=== PATIENT | female | born 1990 | race Caucasian/White ===

== ENCOUNTER → 2017-10-12 15:44 | Outpatient (CLI) | payer OTHER, SELFPAY ==
[2017-10-12 17:51] LABS: AST(SGOT) 17 U/L (15-37); Alanine Aminotransfer ALT/SGPT 20 U/L (13-56); Albumin, Serum 3.1 g/dL (3.2-5.0); Alkaline Phosphatase 116 U/L (45-117); Bilirubin, Direct 0.06 mg/dL (0.00-0.30); Globulin 4.5 g/dL (2.2-4.2); Protein, Total 7.6 g/dL (6.4-8.2)
[2017-10-12 18:09] LABS: Hematocrit 37.4 % (37-47); Hemoglobin 11.6 g/dl (12.0-15.0); Mean Corpuscular Hgb 26.5 pg (27.0-32.0); Mean Corpuscular Volume 85.6 fL (81-99); Mean Platelet Vol. 11.3 fl (6.2-12.0); Platelet Count 323 K/mm3 (150-450); RBC Distribution Width CV 14.2 % (11.6-14.6); RBC Distribution Width SD 43.6 fl (35.1-43.9); Red Blood Count 4.37 M/mm3 (4.2-5.4); White Blood Count 7.6 K/mm3 (4.4-11.0)
[2017-10-12 18:16] LABS: Scan Indicated on CBC? Y/N NO
[2017-10-12 18:18] LABS: Erythrocyte Sedimentation Rate 17 mm/hr (0-20)
== END ==
PROVIDERS: Family Provider Internal Medicine; PCP Internal Medicine; Visit Provider Internal Medicine Gastroenterology
DX: K50.90 Crohn's disease, unspecified, without complications (principal)
CPT/HCPCS: 36415; 80076; 85027; 85652; 86140

== ENCOUNTER → 2018-12-27 16:10 | Outpatient (CLI) | payer OTHER, SELFPAY ==
[2018-09-12 13:32] VITALS: BMI 22.2
[2019-01-10 16:33] LABS: HPV Reflexed? NOT INDICATED
== END ==
PROVIDERS: Visit Provider Obstetrics & Gynecology
DX: Z12.4 Encounter for screening for malignant neoplasm of cervix (principal)
CPT/HCPCS: 88175; G0145

== ENCOUNTER → 2021-03-18 14:15 | Outpatient (CLI) | payer OTHER, SELFPAY ==
[2021-03-18 17:10] LABS: Vitamin B12 874 pg/mL (211-911)
[2021-03-18 17:15] LABS: CRP < 2.90 mg/L (0.0-3.0); Ferritin 5 ng/mL (8-252); Iron 23 ug/dL (50-170); Iron Binding Capacity,Total 347 ug/dL (250-450); PERCENT IRON SATURATION 6.6 % (15.0-55.0)
[2021-03-21 16:49] LABS: Vitamin D 1,25-Dihydroxy 56.8 pg/mL (19.9-79.3)
== END ==
PROVIDERS: Referring Provider Internal Medicine; Visit Provider Internal Medicine
DX: K50.019 Crohn's disease of small intestine with unspecified complications (principal)
CPT/HCPCS: 36415; 82607; 82652; 82728; 83540; 83550; 86140

== ENCOUNTER 2021-10-04 12:45 | Outpatient (CLI) | payer OTHER, MEDICAID, SELFPAY ==
--- NOTE | 2021-10-04 12:55 | BI_ITS ---
MAMMOGRAPHY - BILATERAL DIAGNOSTIC REASON FOR EXAM: Female, 31 years old. 2-3 month history of a left breast lump. PERTINENT HISTORY: Grandmother with breast cancer. TECHNIQUE: Digital bilateral breast reno (3D mammographic acquisition) in the CC and MLO projections. 2-D mediolateral oblique (MLO) and craniocaudad (CC) views of both breasts were obtained. Left exaggerated craniocaudad view was obtained as well. CAD: Full Field Digital Mammography with Computer Added Detection was performed. COMPARISON: None. Baseline examination. FINDINGS: Breast Composition: The breasts are extremely dense, which lowers the sensitivity of mammography. The palpable abnormality corresponds to a 1.2 cm x 1.4 cm spiculated nodule in the deep lateral axillary region of the left breast. Microcalcifications are seen within it. Correlation with ultrasound and biopsy recommended. No other significant abnormalities are identified. BI/DIAG MAMM W/CAD, BILAT IMPRESSION: The palpable abnormality corresponds to a 1.2cm x 1.4 cm spiculated in the upper axillary lateral region of the left breast. Microcalcifications are seen within it. Correlation with ultrasound and biopsy recommended. ASSESSMENT CATEGORY: BIRADS Category 0: Incomplete. Need additional imaging evaluation. A letter regarding these results will be sent to the patient by the facility within 30 days. Approximately 10% of breast cancers are not detected by mammography. A normal mammogram should not delay biopsy of a clinically suspicious abnormality. Electronically Signed: Cash Gonzalez MD at 13:35 EDT ,
--- NOTE | 2021-10-04 12:55 | US_ITS ---
STUDY: ULTRASOUND BREAST - LEFT REASON FOR EXAM: Female, 31 years old. Palpable lump left breast. TECHNIQUE: Axial and longitudinal images of the LEFT breast were performed with a high resolution ultrasound transducer. # OF IMAGES: 27 COMPARISON: Comparison is made with prior mammogram done earlier today. FINDINGS: LEFT Breast: The mammographic and palpable abnormality corresponds to a 1.3 cm x 1.3 cm x 1.1 cm heterogeneous hypoechoic solid mass with microcalcifications at the 1 o''clock position of the breast at 8 cm from the nipple. Increased vascularity is seen. Biopsy recommended. US/Breast Limited Unilateral IMPRESSION: 1.3 cm x 1.3 cm x 1.1 cm heterogeneous hypoechoic solid mass with microcalcifications at the 1 o''clock position breast at 8 cm from the nipple. Biopsy recommended. ASSESSMENT CATEGORY: BIRADS Category 5: Highly Suggestive of Malignancy - Appropriate Action Should Be Taken. A letter regarding these results will be sent to the patient by the facility within 30 days. Electronically Signed: Cash Gonzalez MD at 15:12 EDT ,
== END 2021-10-04 23:59 | disposition home or self-care (01) ==
PROVIDERS: Visit Provider Student in an Organized Health Care Education/Training Program
DX: N63.20 Unspecified lump in the left breast, unspecified quadrant (principal); R92.2 Inconclusive mammogram
CPT/HCPCS: 76642; 77062; 77066; G0279

== ENCOUNTER 2021-10-07 11:53 | Outpatient (CLI) | payer OTHER, MEDICAID, SELFPAY ==
--- NOTE | 2021-10-07 | IMM_PTH ---
PATIENT: STEPHEN SELF LOC: TIM U#:[id number] AGE/SX: 31/F ROOM: RE10/07/[address]: Dr. Tom Baker MD : 1990 BED: DIS: 10/07/2021 SPEC #: [id number] RECD: 10/10/21 13:18 STATUS: TIFFANY REQ #: [id number] TI: 10/07/21 00:[address]: Tom Baker DEPT: IMMUNOHISTOCHEMISTRY RECD BY: Elaine Baxter ENTERED: 10/10/21 13:19 SP TYPE: IMMUNO OTHR DR: No Primary Care Phys Tissues: Left breast, NOS Procedures: CALPONIN-1 (add) CK5-6 (add) CK8 (add) E-CAD (add) HER2 RONAN (add) KI-67 (add) P53 (add) VT (add) P40 (add) ER (initial) PHYSICIAN & INSTITUTION [place] [id number] SPECIMEN INFORMATION: Tissue Source: Left breast Clinical Info: Left breast mass Specimen Number: [id number] CPT code: 04752, 10827 x6, 78648 x3 METHODOLOGY: Deparaffinized sections of prefer/formalin-fixed tissue or PAP/DQ stained slides are incubated with monoclonal/polyclonal antibodies/oligonucleotide probes. Localization is made via biotin free immunoperoxidase method. Appropriate controls are performed and reacted as expected. Results on target cell population are indicated in the following table: RESULTS: ANTIBODY / CLONE RESULT E-Cad (ECH-6) positive CK8 (74pgqqN38) positive Calponin-1 (FX592O) negative * CK5-6 (D5 & 1684) negative * P40 (BC28) negative * P53 (DO-7) positive, rare cells, weak <1% Ki-67 (30-9) positive, moderate, ~40% *?Positive in ductal carcinoma in situ. MORPHOMETRIC ANALYSIS ER (clone 6F11) >95%, strong intensity VT (clone 16/1E2) variable 10-50%, moderate intensity Her-2Neu (clone CB11) 3+ The prognostic test for HER2 is performed on formalin-fixed paraffin embedded tissue. A 3+ (positive) staining pattern is defined as intense, homogeneous, complete, circumferential membranous staining in >10% of contiguous tumor cells. A similar weak (2+) staining pattern is interpreted as equivocal. NORA follow-up testing is recommended for all equivocal cases. Positivity/negativity for ER/VT is reported if > or < 1% of the tumor cells are immuno- reactive, respectively. The ASCO/CAP criteria is used for scoring. Reference: Journal of Clinical Oncology, 2013; 31:6498-5814 & 2010; 16:7317-5699. Duration of fixation: 57.5 Hrs; Sample Adequate: Yes. These assays have not been validated on decalcified tissues. Results should be interpreted with caution given the likelihood of false negativity on decalcified specimens. These tests were developed and their performance characteristics determined by [facility]. They may not have been cleared or approved by the U.S. Food and Drug Administration. The FDA has determined that such clearance or approval is not necessary. The above immunohistochemical/dualISH markers are ordered and reviewed by the Pathologist. INTERPRETATION: Left breast, core biopsy: Invasive ductal carcinoma, nuclear grade 2. Ductal carcinoma in situ. Positive for estrogen receptors (favorable prognostic indicator). Positive for progesterone receptors (favorable prognostic indicator). Positive for overexpression of ETA1tcj. SJ:eloy 10/11/2021
--- NOTE | 2021-10-07 10:10 | BRBX_PTH ---
PATIENT: STEPHEN SELF LOC: TIM U#:[id number] AGE/SX: 31/F ROOM: RE10/07/[address]: Dr. Tom Baker MD : 1990 BED: DIS: 10/07/2021 SPEC #: [id number] RECD: 10/07/21 11:44 STATUS: TIFFANY RECristiano #: [id number] TI: 10/07/21 10:[address]: Tom Baker DEPT: SURGICAL PATHOLOGY RECD BY: Maude Cross ENTERED: 10/07/21 13:03 SP TYPE: BREAST BX OTHR DR: No Primary Care Phys Tissues: Left breast, NOS Procedures: Surgery Specimen Level IV HEADER OPERATION: Left breast biopsy PRE-OP DIAGNOSIS: Left breast mass TISSUE SUBMITTED: Left breast tissue MICROSCOPIC DIAGNOSIS Left breast, core biopsy: Invasive ductal carcinoma, nuclear grade 2 (0.8 cm in greatest length). Ductal carcinoma in situ. See comment. GALE:eloy 10/10/2021 COMMENT Immunohistochemistry ([id number]) supports the above diagnosis. ER/TN/Jgo6fbl studies are being performed on sections of tumor and the results from this study will be reported separately ([id number]). Ductal carcinoma in situ shows solid and comedo pattern, comedo necrosis, calcifications and intermediate nuclear grade (nuclear grade 2) and comprise about 30% of the tumor volume. Case has been reviewed in consultation with Dr. Paris who concurs with the above diagnosis. IDC:AM MICROSCOPIC DESCRIPTION Slides are reviewed. GROSS DESCRIPTION Received in fixative is one container labeled with the patient's name and designated left breast. The specimen consists of multiple elongated fragments of walker-yellow fibroadipose tissue that in aggregate measure 1.5 x 0.5 x 0.1 cm. The entire specimen is submitted in one cassette. / GALE:eloy 10/07/2021 TC:0 CPT: 34621 ADDENDUM ADDENDUM ADDENDUM ADDENDUM ADDENDUM ADDENDUM ADDENDUM ADDENDUM ADDENDUM ADDENDUM ADDENDUM ADDENDUM 12/15/2021 10:05 ADDENDUM 12/15/2021 10:05 ADDENDUM 12/15/2021 10:05 ADDENDUM 12/15/2021 10:05 ADDENDUM 12/15/2021 10:05 This addendum is added to incorporate an outside pathology consultation report. The case was examined at [facility] (#[id number]) and the following diagnosis was rendered. Left breast, core biopsy: Invasive ductal carcinoma, provisionally Fany 2, measures 8 mm in greatest length. Ductal carcinoma in situ, intermediate nuclear grade, solid type with comedo-necrosis and calcifications. Please see complete above mentioned consultation report in EMR
== END 2021-10-07 23:59 | disposition home or self-care (01) ==
LOC: LABSPEC 11:54
PROVIDERS: Referring Provider Surgery; Visit Provider Surgery
DX: C50.919 Malignant neoplasm of unspecified site of unspecified female breast (principal)
CPT/HCPCS: 88305; 88341; 88342

== ENCOUNTER 2021-10-31 05:51 | Day surgery (SDC) | payer OTHER, MEDICAID, SELFPAY ==
[2021-10-31 06:22] VITALS: BP 106/67; PULSE 73; RESP 16; TEMP 37.1; O2SAT 100; BMI 22.4
[2021-10-31 06:34] LABS: Internal QC Validated? YES +Cl - CLEAR BKGD; Pregnancy, Urine Negative Negative
[2021-10-31] MEDS: Lactated Ringers 1,000 ML 30 ML IV (06:38)
--- NOTE | 2021-10-31 07:07 | PCM.HP.STD ---
HPI - General HPI Narrative STEPHEN SELF, is a 31 F who presents for chest port for him. Patient has breast cancer of the left breast and was sent here for port for neoadjuvant therapy. [facility], LAT[facility] Medical History (Updated 10/31/21 @ 07:[address] Tom Baker MD) Alcohol use Anemia Back pain Bowel obstruction Breast cancer Crohn's disease Fatigue Migraines Non-smoker Stomach ulcer Wears contact lenses Wears glasses Home Medications NK 10/28/21 [History Last Taken Unknown] Allergy/AdvReac Type Severity Reaction Status Date / Time No Known Allergies Allergy Verified 10/31/21 06:20 Family History (Updated 10/17/21 @ 15:33 by Dalia Gr) Grandmother Breast cancer Hypertension Thyroid disorder Diabetes type two Surgical History (Updated 10/28/21 @ 10:03 by Patrizia Gamble) History of removal of cyst Hx of colonoscopy Hx of tonsillectomy Hx of wisdom tooth extraction Social History Smoking Status: Never smoker alcohol intake: current alcohol intake frequency: holidays/special occasions only ROS Constitutional Constitutional: Denies anorexia or chills Eyes Eyes: Denies blurry vision ENT HEENT: Denies abnormal hearing Respiratory/Chest Respiratory/Chest: Denies cough, dyspnea or dyspnea on exertion Gastrointestinal Gastrointestinal: Denies abdominal pain Genitourinary Genitourinary: Denies change in urinary stream Musculoskeletal Musculoskeletal: Denies abnormal gait Integumentary Integumentary: Denies jaundice Neurologic Neurologic: Denies abnormal gait Psychiatric Psychiatric: Denies anxiety Endocrine Endocrinology: Denies flushing Vital Signs Vital Signs Vital Signs: 10/31/21 06:22 Temperature 98.7 F Temperature Source Temporal Pulse Rate 73 Respiratory Rate 16 Respiratory Pattern Normal Blood Pressure 106/67 Blood Pressure Mean 80 Blood Pressure Source Monitor Blood Pressure Position Semi-Fowlers Blood Pressure Location Left Arm Pulse Ox 100 Oxygen Delivery Method Room Air Weight Weight: 147 lb 11.355 oz Body Mass Index (BMI) 22.4 Physical Exam Const alert and oriented x3 Resp normal respiratory effort and normal air movement Cardio regular rate and regular rhythm GI soft to palpation, non-tender and non-distended Results Lab / Micro Data Labs: Laboratory Results - last 24 hr 10/31/21 06:18: Urine Test Negative Micro: Microbiology 10/31/21 06:13 Interface Orders SARS-CoV-2 Antigen (Rapid) - Final Assessment & Plan Assessment/Plan (1) Encounter for insertion of venous access port: PLAN: Patient has left breast cancer and requires chest port for chemotherapy. I discussed right chest port placement with the patient in detail. I discussed the risks including but not limited to bleeding, infection, pneumothorax, line infection or DVT. Patient understands the risks and is willing to proceed. Tom Baker MD Pager: [facility] [address] [place] [address], [address] [place] [address] Office:
[2021-10-31] MEDS: Cefazolin 2 GM in 0.9% Normal Saline 100 ML IV (07:19)
[2021-10-31] MEDS: Lidocaine 1% /Epi 1:100 (20ml) 20 ML Vial (07:25)
[2021-10-31 07:48] VITALS: BP 106/67; BP 115/69; PULSE 87; RESP 16; TEMP 36.8; O2SAT 99
[2021-10-31 07:55] VITALS: BP 106/67; BP 93/80; PULSE 87; RESP 16; O2SAT 99
--- NOTE | 2021-10-31 07:55 | RAD_ITS ---
STUDY: X-RAY CHEST REASON FOR EXAM: Female, 31 years old. Port placement TECHNIQUE: Frontal view of the chest COMPARISON: None. FINDINGS: There is a right-sided port with its tip in the superior vena cava. The lungs are clear. There are no pleural effusions. There is no pneumothorax. The heart is normal in size. The visualized osseous structures are within normal limits. RAD/Chest 1 View (Portable) IMPRESSION: Satisfactory position of the right-sided port. No pneumothorax. Electronically Signed: Attila Castillo MD at 8:23 EDT ,
[2021-10-31 08:00] VITALS: BP 106/67; BP 110/72; PULSE 72; RESP 16; O2SAT 100
[2021-10-31 08:02] VITALS: BP 106/67; BP 110/66; PULSE 77; RESP 16; TEMP 37.3; O2SAT 99
--- NOTE | 2021-10-31 08:15 | PCM.OPRPT ---
Problems Associated Problem List Diagnoses (1) Encounter for insertion of venous access port: Report of Operation Date of Procedure: 10/31/21 Pre-Operative Diagnosis: Left breast cancer and need for vascular access Post-Operative Diagnosis: Same Surgery/Procedure Performed:: Ultrasound and fluoroscopy guided right chest port placement utilizing right IJ Description of Procedure: After obtaining informed consent patient was brought back to the operating room MAC anesthesia was induced and the right chest and neck were prepped in normal sterile fashion. Ultrasound was used to evaluate both IJs and the right IJ was selected. Next, using a needle, the right IJ was accessed and a guidewire was passed on into the superior vena cava under fluoroscopy guidance. A small incision was made over the puncture site and the dilator introducer was placed over the guidewire. Next this was capped and the pocket was made for the port. 1% lidocaine with epinephrine was injected in the proposed port site. An incision was made with scalpel. Electrocautery was used to make a pocket under the skin and subcutaneous tissue. Hemostasis was obtained. Next, the catheter was tunneled up to the neck incision site and placed through the introducer. The peel-away introducer was removed and the position of the catheter was confirmed on fluoroscopy. Next, the catheter was trimmed and attached to the port with the locking device. Interrupted 2-0 Vicryl sutures were used to anchor the port to the chest wall and then the port was placed inside the pocket. The pocket was then flushed with saline and the port irrigated with saline. There was good blood return and the port flushed easily. Next, heparin was injected into the port. The skin was closed with subcutaneous interrupted 3-0 Vicryl sutures. A single 3-0 Vicryl sutures placed under the skin at the neck incision site. Steri-Strips were placed as well as op sites. Patient tolerated procedure well, was taken to PACU in stable condition. Chest x-ray will be obtained. Grafts/Implants Used: 8 [place] PowerPort Admit VTE Documentation VTE Mechan Device Prophylaxis: SCD's
--- NOTE | 2021-10-31 08:16 | EX.PCM.DISCH ---
Discharge Instructions Procedure Port-A-Cath Diet Discharge Diet: Light diet - advance as tolerated (Pain medication may cause nausea. You should typically eat light foods as you take your pain medication.) Activity Discharge Activity: Return to Normal Activity and May Shower (with your bandage in place in 1-2 days after surgery. DO NOT SHOWER WHEN YOUR PORT IS ACCESSED.) Dressing / Incision Call your doctor if your incision/area has: Continuous Slow Oozing, Sudden Increased Bleeding, Increased Pain/ Swelling, Increased Redness and Foul Smelling Discharge Call your doctor if you observe: Fever of 101 or Higher Remove Dressing in: 2 days Cleanse incision/area with: Soap & Water Follow Up Care Please Follow Up With: Tom Baker MD When: as needed [phone] Test Results: Test results from this visit will be discussed in further detail at your follow-up appointment, if applicable. Discharge Plan Admission Attending Provider: Tom Baker Primary Care Provider: Nannette Torres Discharge Orders/Prescriptions Prescriptions: No Action NK RF: 0 Referrals / Follow Up: Nannette Torres DO [Primary Care Provider] - Disposition Disposition (needs filled in before D/C Order can be placed): Home, Self Care
[2021-10-31 08:55] VITALS: BP 106/67; BP 115/68; PULSE 74; RESP 16; TEMP 37.1; O2SAT 99
== END 2021-10-31 09:11 | disposition home or self-care (01) ==
LOC: SDC 05:52 → AC 05:54
PROVIDERS: Anesthesiology; PCP Internal Medicine; Referring Provider Surgery; Visit Provider Surgery
PROC: (CPT 36561; principal; 2021-10-31 07:00)
DX: Z45.2 Encounter for adjustment and management of vascular access device (principal); K50.90 Crohn's disease, unspecified, without complications; C50.912 Malignant neoplasm of unspecified site of left female breast; Z80.3 Family history of malignant neoplasm of breast; Z87.19 Personal history of other diseases of the digestive system
CPT/HCPCS: 36561; 71045; 77001; 81025; 87426; J7120; C1788

== ENCOUNTER → 2022-04-13 | Outpatient (CLI) | payer OTHER, MEDICAID, SELFPAY ==
[2022-04-22 14:36] LABS: HPV APTIMA, High Risk Negative (Negative)
== END | disposition home or self-care (01) ==
LOC: LABSPEC 14:38
PROVIDERS: PCP Internal Medicine; Referring Provider Obstetrics & Gynecology; Visit Provider Obstetrics & Gynecology
DX: Z12.4 Encounter for screening for malignant neoplasm of cervix (principal)
CPT/HCPCS: 87624; 88175; G0145

== ENCOUNTER → 2023-08-14 | Outpatient (CLI) | payer OTHER, SELFPAY ==
--- NOTE | 2023-08-14 17:19 | MRI_ITS ---
MRI Abdomen w/ and w/out contrast 08/14/2023 6:07 PM COMPARISON: None CLINICAL HISTORY: PRIMARY SCLEROSIS CHOLANGITIS AND BILE DUCTS CROHNS DISEASE, ELEVATED LIVER ENZYMES TECHNIQUE: Multiplanar T1 and T2 weighted, diffusion and dynamic post-gadolinium images were obtained through the abdomen before and after administration of IV contrast. FINDINGS: Liver: Unremarkable Gallbladder: Unremarkable Pancreas: Unremarkable Spleen: Unremarkable Adrenal Glands: Unremarkable Kidneys: Unremarkable GI Tract: Unremarkable Lymphadenopathy: Absent Reproductive: Unremarkable Bones: No suspicious lesions MRI/MRI Abd WITH and W/O Contrast IMPRESSION: Unremarkable MRI and MRCP of the abdomen Electronically Signed: Henri Schmidt MD at 22:19 EST ,
== END | disposition home or self-care (01) ==
LOC: MRI 17:04
PROVIDERS: Referring Provider Internal Medicine; Visit Provider Internal Medicine
DX: K50.80 Crohn's disease of both small and large intestine without complications (principal); R74.8 Abnormal levels of other serum enzymes
CPT/HCPCS: 74183; A9575; A4216

== ENCOUNTER 2024-01-08 11:43 | Emergency (ER) | payer OTHER, SELFPAY ==
[2024-01-08 11:43] VITALS: BP 124/88; PULSE 94; RESP 14; TEMP 36.3; O2SAT 100; BMI 22.5
--- NOTE | 2024-01-08 11:58 | ED.RN ---
pt states she does not normally have a menstrual period but has been having some brown vaginal discharge for several days
[2024-01-08] MEDS: 0.9% Normal Saline (1000mL) 1,000 ML 999 ML IV (13:29)
[2024-01-08] MEDS: Ketorolac 15 MG/ML Vial IV (13:30)
[2024-01-08 13:43] VITALS: BP 92/54; PULSE 71; RESP 16; O2SAT 100
[2024-01-08 13:50] LABS: Bacteria 0 SEEN /hpf (None Seen); Mucous, Urine 0 SEEN /hpf (<or=2+); Red Blood Cells-Urine 0 SEEN /hpf (0-5)
[2024-01-08 13:54] LABS: Absolute Lymphocyte Count 0.79 X10^3/uL (0.83-4.51); Absolute Neutrophil Count 5.9 X10^3/uL (2.0-7.7); Basophil# 0.03 X10^3/uL; Basophil% 0.4 % (0-1); Eosinophil# 0.03 X10^3/uL; Eosinophils% 0.4 % (0-5); Hematocrit 40.9 % (37-47); Hemoglobin 13.8 g/dL (12.0-15.0); Lymphocyte # 0.79 X10^3/ul (0.83-4.51); Lymphocyte % 10.9 % (19-41); Mean Corp Hgb Conc 33.7 g/dL (32-36); Mean Corpuscular Hgb 28.8 pg (27.0-32.0); Mean Corpuscular Volume 85.4 fL (81-99); Mean Platelet Vol. 12.4 fl (6.2-12.0); Monocyte# 0.54 X10^3/uL; Monocyte% 7.4 % (0-10); NRBC Flagged by Analyzer 0 % (0-5); Neutrophil # 5.85 X10^3/uL (2.7-7.7); Neutrophil % 80.6 % (47-70); POSITIVE COUNT YES; Platelet Count 68 K/mm3 (150-450); RBC Distribution Width SD 43.4 fl (35.1-43.9); Red Blood Count 4.79 M/mm3 (4.2-5.4); White Blood Count 7.3 K/mm3 (4.4-11.0)
[2024-01-08 13:54] LABS: Color, Urine Yellow (Yellow); Glucose, Dipstick Normal (Normal); Ketone-Dipstick Negative (Negative); Leukocyte Esterase-Dipstick 100 /ul (Negative); Nitrite-Dipstick Negative (Negative); Occult Blood-Urine Negative /ul (Negative); Protein-Dipstick Negative (Negative); Specific Gravity, Urine 1.015 (1.002-1.030); Urine Bilirubin Dipstick Negative (Negative); Urine Clarity Clear (Clear); Urine Urobilinogen Normal (Normal)
[2024-01-08 13:58] LABS: Internal QC Validated? YES +Cl - CLEAR BKGD; Pregnancy, Urine Negative Negative
[2024-01-08 14:04] LABS: Squamous Epithelial Cells - UA 0-5 SEEN /hpf (5-10); White Blood Cells 0-5 SEEN /hpf (0-5)
--- NOTE | 2024-01-08 14:05 | CT_ITS ---
STUDY: CT ABDOMEN AND PELVIS WITH CONTRAST REASON FOR EXAM: Female, 33 years old. Abdominal pain RADIATION DOSAGE (If Supplied By Facility): CTDIvol = ( 10.83 ) mGy, DLP = ( 621.87 ) mGycm TECHNIQUE: IV 100mL Isovue-370 was administered. Transaxial images were obtained from the dome of the diaphragm to the symphysis pubis. Multiplanar coronal and sagittal images were reformatted. The protocol utilizes one or more of the following dose reduction techniques: automated exposure control, adjustment of mA and/or kV according to patient size,and/or use of iterative reconstruction technique. COMPARISON: MRI of the abdomen of 08/14/2023 FINDINGS: The visualized lung bases are unremarkable. The visualized portions of the heart are within normal limits. Partially visualized bilateral breast implants. Normal liver. Normal gallbladder and extrahepatic biliary system. Normal spleen. Normal pancreas. Normal bilateral adrenal glands. Normal visualized stomach. Thickening of distal ileal loops and terminal ileum. Fecal retention. No evidence of acute diverticulitis. Borderline thickening of the appendix. No evidence of acute appendicitis. Normal abdominal aorta. No retroperitoneal adenopathy. Normal right kidney. Normal left kidney. Normal urinary bladder. Mild free fluid in the pelvis Very small umbilical hernia containing fat. Normal osseous structures. CT/Abdomen/Pelvis W IV Cont ONLY IMPRESSION: 1. Thickening of distal small bowel loops and terminal ileum which could be due to enteritis. Inflammatory bowel disease is possible. 2. Mild free fluid in the pelvis Electronically Signed: Remigio Tinoco MD at 14:44 EDT ,
[2024-01-08 14:07] LABS: ALB/GLOB Ratio 1.1 RATIO (0.9-2.4); AST(SGOT) 35 U/L (15-37); Alanine Aminotransfer ALT/SGPT 38 U/L (13-56); Albumin, Serum 3.9 g/dL (3.2-5.0); Alkaline Phosphatase 216 U/L (45-117); Anion Gap 5 (5-15); BUN 8 mg/dL (7-18); BUN/Creat Ratio 13.9 RATIO (10-20); Chloride 108 mmol/L (98-107); Creatinine, Serum 0.58 mg/dL (0.55-1.02); EST Glomerular Filtration Rate 129 mL/min (>60); Est Glom Filt Rate - Afr Amer 156 mL/min (>60); Estimated Creatinine Clearance 140.47 ml/min; Globulin 3.7 g/dL (2.2-4.2); Glucose 91 mg/dL (74-106); Potassium 3.9 mmol/L (3.5-5.1); Protein, Total 7.6 g/dL (6.4-8.2); Sodium Level 141 mmol/L (136-145)
[2024-01-08 14:26] LABS: Differential Indicated SCAN CRITERIA MET; Platelet Estimate MOD DEC (ADEQ)
[2024-01-08] MEDS: Morphine 4 MG/ML Syringe IV (14:37)
[2024-01-08 15:00] VITALS: BP 111/87; PULSE 71; RESP 16; O2SAT 99
--- NOTE | 2024-01-08 16:38 | EDS_ITS ---
HPI HPI - GI History of Present Illness Chief Complaint: Abd Pain Informant: patient Narrative Narrative: Patient is a 33-year-old female with history of Crohn's disease (states she is diet controlled) follows with Dr. Garza [facility] in [place], presenting with worsening lower abdominal pain. She states that had a colonoscopy last week was told everything was good. Started having pain today. She states it woke her from sleep at 4 AM and describes it as crampy in nature. Took ibuprofen which dulls the pain slightly. Feels bloated. States her last menstrual period was 2 years ago she is on Lupron because of her history of breast cancer. Denies any fever or chills. No nausea or vomiting. States her bowel moments have been normal. Denies any black or blood in the stool. PFSH PFSH Medical History Encounter for insertion of venous access port Wears contact lenses Wears glasses Alcohol use Non-smoker Breast cancer Bowel obstruction Back pain Crohn's disease Migraines Fatigue Anemia Stomach ulcer Home Medications ?Medication ?Instructions ?Recorded ?Last Taken ?Type anastrozole 1 mg tablet 1 mg PO DAILY 10/25/23 Unknown History leuprolide 7.5 mg intramuscular 7.5 mg IM QMONTH 10/25/23 Unknown History syringe kit (Lupron Depot) ciprofloxacin HCl 500 mg tablet 500 mg PO BID #14 TABLETS 01/08/24 Unknown Rx metronidazole 500 mg tablet 500 mg PO Q6H 7 days #28 tabs 01/08/24 Unknown Rx ondansetron 4 mg disintegrating 4 mg PO Q8H PRN PRN Nausea #10 tabs 01/08/24 Unknown Rx tablet prednisone 20 mg tablet 40 mg (2 x 20 mg) PO DAILY #28 tabs 01/08/24 Unknown Rx Allergy/AdvReac Type Severity Reaction Status Date / Time No Known Allergies Allergy Verified 01/08/24 11:44 Family History Grandmother Breast cancer Hypertension Thyroid disorder Diabetes type two Surgical History History of mastectomy, total Hx of colonoscopy Hx of wisdom tooth extraction Hx of tonsillectomy History of removal of cyst Social History Smoking Status: Never smoker alcohol intake: current alcohol intake frequency: holidays/special occasions only details: occasionally substance use type: does not use caffeine: Yes what type of physical activity do you participate in: none seatbelt use: always do you feel safe at home: Yes additional social history: - Deon ROS ROS ED Constitutional Constitutional ED: Denies chills or fever(s) Cardiovascular Cardiovascular: Denies chest pain Respiratory/Chest Respiratory/Chest: Denies cough or dyspnea Gastrointestinal Gastrointestinal: Reports abdominal pain; Denies constipation, diarrhea, melena, nausea or vomiting Musculoskeletal Musculoskeletal: Denies arthralgias or myalgias Neurologic Neurologic: Denies paresthesias or weakness Hematologic/Lymphatic Hematologic/Lymphatic: Denies easy bleeding or easy bruising EXAM Physical Exam Const Vital Signs: 01/08/24 11:43 01/08/24 13:43 01/08/24 15:00 Temperature 97.3 F L Temperature Source Temporal Pulse Rate 94 71 71 Respiratory Rate 14 16 16 Blood Pressure 124/88 H 92/54 L 111/87 H Blood Pressure Mean 100 66 95 Pulse Ox 100 100 99 Oxygen Delivery Method Room Air Room Air Room Air 01/08/24 16:39 Temperature 98.8 F Temperature Source Pulse Rate 87 Respiratory Rate 16 Blood Pressure 118/76 Blood Pressure Mean 90 Pulse Ox 100 Oxygen Delivery Method Positive well nourished and well developed General Appearance ED: well developed and NAD; Negative for pallor HEENT Reports moist mucous membranes Eyes PERRL Neck supple Resp normal respiratory effort and clear to auscultation bilaterally Cardio regular rate and regular rhythm GI non-distended Auscultation: hypoactive bowel sounds Palpation: soft and tender LLQ, RLQ and suprapubic Back/Spine no CVA tenderness Extremity full ROM Neuro Sensorium / Orientation: alert, oriented to person, oriented to place and oriented to time Motor Exam: Negative for general weakness Psych mental status grossly normal and thought process normal Skin no wounds General Skin Exam: Negative for jaundice or pallor MDM MDM MDM Narrative Medical decision making narrative: Patient is evaluated for 1 day of worsening lower abdominal crampy abdominal pain. Has a history of Crohn's disease as well as breast cancer. Differential includes was not limited to Crohn's flare, colitis, small bowel ob struction and urinary tract infection. Lab work largely unremarkable except for mildly elevated alkaline phosphatase of uncertain clinical significance. Urinalysis is not consistent with infection. Patient is she is given Toradol in the ER as well as IV fluids but has continued pain so she is then given IV morphine with further improvement of her symptoms. CT of the abdomen pelvis is concerning for thickening of the distal small bowel loops and terminal ileum which could be either inflammatory bowel disease or enteritis. Given her clinical history and presentation I suspect this is a Crohn's flare. Her GI doctor is out of town this week so I did speak with our GI doctor, Dr. Odonnell. He reviewed the patient's CT. He recommends a oral prednisone until she can follow-up with her GI doctor, Brayan and also suspect that she would highly benefit from a biologic agent for suppression of her Crohn's disease. Patient is given a copy of her disc for when she follows up with her GI doctor and informed of his recommendations. She feels comfortable being discharged home and treated outpatient. She is able to tolerate p.o. in the emergency room. She is given first dose of antibiotics and steroids in the emergency room. Given return precautions. Discharged home in stable condition. Lab Data Attestation: I reviewed the patient's lab results. Labs: Laboratory Results - last 24 hr 01/08/24 01/08/24 13:27 13:30 WBC 7.3 RBC 4.79 Hgb 13.8 Hct 40.9 MCV 85.4 MCH 28.8 MCHC 33.7 RDW Std Deviation 43.4 RDW Coeff of Latrell 14.0 Plt Count 68 L MPV 12.4 H Immature Gran % (Auto) 0.300 Neut % (Auto) 80.6 H Lymph % (Auto) 10.9 L Cavalier % (Auto) 7.4 Eos % (Auto) 0.4 Baso % (Auto) 0.4 Absolute Neuts (auto) 5.9 Absolute Lymphs (auto) 0.79 L Nucleated RBC % 0 Platelet Estimate MOD DEC Sodium 141 Potassium 3.9 Chloride 108 H Carbon Dioxide 28.0 Anion Gap 5 BUN 8 Creatinine 0.58 Estim Creat Clear Calc 140.47 Est GFR (MDRD) Af Amer 156 Est GFR (MDRD) Non-Af 129 BUN/Creatinine Ratio 13.9 Glucose 91 Calcium 9.0 Total Bilirubin 0.80 AST 35 ALT 38 Alkaline Phosphatase 216 H Total Protein 7.6 Albumin 3.9 Globulin 3.7 Albumin/Globulin Ratio 1.1 Urine Color Yellow Urine Clarity Clear Urine pH 8.0 Ur Specific Diana 1.015 Urine Protein Negative Urine Glucose (UA) Normal Urine Ketones Negative Urine Occult Blood Negative Urine Nitrite Negative Urine Bilirubin Negative Urine Urobilinogen Normal Ur Leukocyte Esterase 100 H Urine RBC 0 SEEN Urine WBC 0-5 SEEN Ur Squamous Epith Cells 0-5 SEEN Urine Bacteria 0 SEEN Urine Mucus 0 SEEN Urine Test Negative Radiography Diagnostic Testing: Clinical Impression(s) from Imaging Studies Abdomen/Pelvis CT 01/08/24 14:05 IMPRESSION: 1. Thickening of distal small bowel loops and terminal ileum which could be due to enteritis. Inflammatory bowel disease is possible. 2. Mild free fluid in the pelvis Electronically Signed: Remigio Tinoco MD at 14:44 EDT , Management Discussion w/another healthcare provider: [facility]ia[facility] Discharge Plan Triage Chief Complaint: Abd Pain ED Provider: Polly Rai Dx/Rx/DC Orders Clinical Impression: Crohn's colitis, Abdominal pain Instructions: ED Crohn's Disease Prescriptions: New prednisone 20 mg tablet 40 mg PO DAILY Qty: 28 0RF ondansetron 4 mg tablet,disintegrating 4 mg PO Q8H PRN PRN (Reason: Nausea) Qty: 10 0RF ciprofloxacin HCl 500 mg tablet 500 mg PO BID Qty: 14 0RF metronidazole 500 mg tablet 500 mg PO Q6H 7 Days Qty: 28 0RF No Action anastrozole 1 mg tablet 1 mg PO DAILY Lupron Depot 7.5 mg syringe kit 7.5 mg IM QMONTH Primary Care Provider: Care Physician,No Primary Referrals: Care Physician,No Primary [Primary Care Provider] - Activity Restrictions/Additional Instructions: Your CT is concerning for an acute Crohn's flare. We have given you a copy of your CT today to review with your GI doctor. Our GI doctor, Dr. Odonnell, reviewed your films. He recommends 7-day course of antibiotics as well as 40 mg of prednisone daily until you can follow-up with your GI doctor. You been given a 2-week supply here. He is concerned due to the degree of inflammation in your small bowel that you would benefit from a biologic agent. Please discuss this with your GI doctor. You may take a Tylenol and/or ibuprofen for your pain. Return to the ER if you have progression worsening your symptoms or further concerns. Print Language: Kittitian Disposition Disposition: Home, Self Care Discharge Date/Time: 01/08/24 17:08
[2024-01-08 16:39] VITALS: BP 118/76; PULSE 87; RESP 16; TEMP 37.1; O2SAT 100
[2024-01-08] MEDS: predniSONE 20 MG Tablet 60 MG PO (16:52)
[2024-01-08] MEDS: metroNIDAZOLE 500 MG Tablet PO (16:52)
[2024-01-08] MEDS: Ciprofloxacin 500 MG Tablet PO (16:52)
== END 2024-01-08 17:08 | disposition home or self-care (01) ==
PROVIDERS: Emergency Provider Emergency Medicine; Visit Provider Emergency Medicine
DX: K50.10 Crohn's disease of large intestine without complications (principal); Z85.3 Personal history of malignant neoplasm of breast
CPT/HCPCS: 74177; 80053; 81001; 81025; 85025; 96361; 96374; 96375; 99285; J7030; Q9967; A4216

== ENCOUNTER → 2025-06-22 | Outpatient (CLI) | payer OTHER, SELFPAY ==
[2025-06-22 17:46] LABS: Hematocrit 39.7 % (37-47); Hemoglobin 13.4 g/dL (12.0-15.0); Immature Granulocytes Count 0.010 X10^3/uL (0.0-0.0); Mean Corp Hgb Conc 33.8 g/dL (32-36); Mean Corpuscular Volume 86.7 fL (81-99); Mean Platelet Vol. 12.5 fl (6.2-12.0); NRBC Flagged by Analyzer 0 % (0-5); Platelet Count 112 K/mm3 (150-450); RBC Distribution Width CV 13.1 % (11.6-14.6); RBC Distribution Width SD 40.6 fl (35.1-43.9); Red Blood Count 4.58 M/mm3 (4.2-5.4); White Blood Count 5.0 K/mm3 (4.4-11.0)
[2025-06-22 19:03] LABS: Ferritin 29 ng/mL (22-378); HIV Nonreactive (Nonreactive); Hepatitis B Surface Antigen Nonreactive (Nonreactive); Hepatitis C Antibody Nonreactive (Nonreactive); Iron 61 ug/dL (50-170); Iron Binding Capacity,Total 297 ug/dL (250-450); Iron Binding Capacity,Unsat 236 ug/dL (228-428); Syphilis Antibodies Nonreactive (Nonreactive)
--- OUTSIDE RECORDS SUMMARY | 2025-06-22 20:46 | XMS RPT_ITS | CCD ---
Author Organization [facility] Care Team Providers Care Forest Ranger Technician Name Role Phone AYDIN EARLY Unavailable Unavailable Braden Torres Unavailable Mikaela Mac Unavailable Unavailable Max Guaman Unavailable Unavailable Margy Elizabeth Unavailable Unavailable Unavailable None, No PCP Unavailable Unavailable Care Physician, No Primary Primary Care Provider Unavailable Dr. Jaqueline Jacinto Attending Provider [phone] Jaquelien Jacinto Referring Provider [phone] Care Physician, No Primary Referring Provider Un available Dr. Jami Baker Attending Provider Braden Torres DO Primary Care Provider No operating theatre technician, Md Primary Care Provider Xin vailable Provider, External Unavailable Valentina Hoff CGC Unavailable Care Physician, No Primary Primary Care Provider Unavailable Dr. Ant Mclean Attending Provider Dr. Braden Torres Primary Care Provider [phone] Dr. Jami Baker Referring Provider Dr. Jami Baker Other Provider Ramón SULTANA MD, Praful Unavailable Krissy Beckham RN Unavailable Unavailable Braden Torres DO Unavailable Mikaela Mac RN Unavailable Unavailable Max Guaman Unavailable Unavailable Margy Elizabeth Unavailable Unavailable Unavailable Margy Elizabeth Unavailable Care Physician, No Primary Primary Care Provider Unavailable Care Physician, No Primary Referring Provider Un available Dr. Jami Baker Attending Provider Braden Torres DO Primary Care Provider Ramón SULTANA MD, Daesung Unavailable Doup RN, Krissy Unavailable Unavailable Braden Torres DO Primary Care Provider Dr. Braden Torres Primary Care Provider [phone] Dr. Braden Torres Referring Provider Dr. Valentina Duran Attending Provider Masci DO, Chantal A Unavailable Braden Torres DO Primary Care Provider Ramón SULTANA MD, Daesung Unavailable Doup RN, Krissy Unavailable Unavailable Masci DO, Chantal A Unavailable Braden Torres DO Unavailable Doup RN, Krissy Unavailable Unavailable Generic Provider , No Assigned Pcp Primary Car e Provider Unavailable Ramón SULTANA, Praful Unavailable ThomLuz bingham Unavailable Dr. Jami Baker Attending Provider Braden Torres DO Primary Care Provider Generic Provider , No Assigned Pcp Primary Car e Provider Unavailable Thomzachery DO Luz R Unavailable THOMAE LUZ R Attending Unavailable GENERIC PROVIDER, NO ASSIGNED PCP Primary Care Unavailable THOMAE, LUZ R Attending Unavailable GENERIC PROVIDER, NO ASSIGNED PCP Primary Care Unavailable PAULINA NULL Attending Unavailable BRADEN TORRES Referring Unavailab le BRADEN TORRES Primary Care Unavailab le THOMAE, LUZ R Attending Unavailable THOMAE, LUZ R Referring Unavailable THOMAE, LUZ R Primary Care Unavailable Care Physician, No Primary Primary Care Unava ilable Mamta Kohler Attending Unavailable Care Physician, No Primary Referring Unava ilable Jaqueline Jacinto Attending Unavailable Care Physician, No Primary Primary Care Unava ilable Care Physician, No Primary Referring Unava ilable Care Physician, No Primary Primary Care Unava ilable Dossi, Jaqueline Attending Unavailable Care Physician, No Primary Referring Unava ilable Jami Baker Attending Unavailable MascChantal james Attending Unavailable Care Physician, No Primary Primary Care Unava ilable Dossi, Jaqueline Attending Unavailable Care Physician, No Primary Referring Unava ilable Care Physician, No Primary Referring Unava ilable Dossi, Jaqueline Attending Unavailable Care Physician, No Primary Primary Care Unava ilable Care Physician, No Primary Referring Unava ilable Dossi, Jaqueline Attending Unavailable Care Physician, No Primary Primary Care Unava ilable Care Physician, No Primary Primary Care Unava ilable Valentina Duran Attending Unavailabl e Care Physician, No Primary Referring Unava ilable Care Physician, No Primary Primary Care Unava ilable ThomShen binghame Attending Unavailable Thomae, Luz Referring Unavailable Care Physician, No Primary Primary Care Unava ilable Polly Rai Attending Unavailable Thomae, Luz Unavailable Unavailable Thomae DO, Luz R Primary Care Provider CHANTAL AYERS Referring Unavailable MELISSABRADEN HUI Primary Care Unavailab le PROVIDER, UNKNOWN Referring Unavailable BRADEN TORRES Primary Care Unavailab le Thomae DO Luz R Unavailable Thomae , Luz R Primary Care Provider [phone] BRADEN TORRES Primary Care Unavailab le MASCICHANTAL Attending Unavailable BRADEN TORRES Primary Care Unavailab CRISTOPHER Enamorado Attending Unavailable BRADEN TORRES Primary Care Unavailab le ATTARAN, JAM Referring Unavailable MELISSABRADEN Primary Care Unavailab le ATTARAN, AJM Referring Unavailable MELISSABRADEN HUI Primary Care Unavailab le LUIS FELIPE, MARICRUZ Referring Unavailable MASCCHANTAL James A Referring Unavailable MELISSABRADEN Primary Care Unavailab le MELISSA, BRADEN SANTANA Primary Care Unavailab le MASCICHANTAL Referring Unavailable MELISSABRADEN Referring Unavailab le MELISSABRADEN Primary Care Unavailab anahy CHAKAPAULINA KIRK Attending Unavailable ATTARAN, JAM Attending Unavailable BRADEN TORRES Primary Care Unavailab le MELISSABRADEN Primary Care Unavailab le MASCI, CHANTAL A Referring Unavailable MELISSA, BRADEN SANTANA Primary Care Unavailab le MASCI, CHANTAL Truong Referring Unavailable MELISSA, BRADEN SANTANA Primary Care Unavailab le MASCI, CHANTAL Truong Referring Unavailable MELISSA, BRADEN SANTANA Primary Care Unavailab le MASCI, CHANTAL A Referring Unavailable ATTARAN, JAM Referring Unavailable MELISSA, BRADEN MAX Primary Care Unavailab le ATTARAN, JAM Referring Unavailable MELISSA, BRADEN MAX Primary Care Unavailab le MASCI, CHANTAL Truong Referring Unavailable MELISSA, BRADEN SANTANA Primary Care Unavailab le ATTARAN, JAM Referring Unavailable MELISSA, BRADEN MAX Primary Care Unavailab le MASCI, CHANTAL Dionne Attending Unavailable MELISSA, BRADEN SANTANA Primary Care Unavailab le MELISSA, BRADEN SANTANA Primary Care Unavailab le MASCI, CHANTAL A Referring Unavailable MELISSA, BRADEN SANTANA Primary Care Unavailab le ATTARAN, JAM Referring Unavailable MELISSA, BRADEN SANTANA Primary Care Unavailab le MELISSA, BRADEN SANTANA Primary Care Unavailab le ATTARAN, JAM Referring Unavailable VANE BLACKMON Attending Unav ailable MELISSA, BRADEN SANTANA Primary Care Unavailab RADHA Florence Attending Unavailable MELISSA, BRADEN SANTANA Primary Care Unavailab le MELISSA, BRADEN SANTANA Primary Care Unavailab le ATTARAN, JAM Referring Unavailable MELISSA, BRADEN SANTANA Primary Care Unavailab BRADFORD Lira Attending Unavailable MELISSA, BRADEN SANTANA Primary Care Unavailab ACE Rosenberg Attending Unavailable ATTARAN, JAM Referring Unavailable MELISSA, BRADEN SANTANA Primary Care Unavailab CAMILLE Hicks Attending Unavailable ATTARAN, JAM Referring Unavailable Medications Current Medications Medication Drug Class(es) Dates Sig (Normalized) Sig (Original) acetaminophen 325 mg / HYDROcodone bitartrate 5 mg oral tablet (2 sources) Opioid Agonist Start: 08-24-2022 End: 08-27-2022 take 1-2 tablets by mouth every six hours as needed for pain HYDROcodone-acetami nophen (NORCO) 5-325 mg per tablet Indications: Malignant neoplasm of upper-outer quadrant of left breast in female, estrogen receptor positive (HCC) Take 1-2 tablets by mouth every 6 hours as needed for pain for up to 3 days. 24 tablet 0 08/24/2022 08/24/2022 Discontinued Comment on above: Take 1-2 tablets by mouth every 6 hours as needed for pain for up to 3 days. anastrozole 1 mg oral tablet (20 sources) Aromatase Inhibitor Start: 07-06-2022 End: 10-20-2024 take 1 tablet by mouth once daily anastrozole (Arimidex) 1 mg tablet Take 1 tablet (1 mg total) by mouth once daily. 05/07/2023 Active Comment on above: Take 1 tablet by gaurav th once daily. TAKE 1 TABLET BY GAURAV TH EVERY DAY cetrorelix 0.25 mg injection (1 source) Gonadotropin Releasing Hormone Antagonist Start: 11-02-2021 End: 11-09-2021 Cetrorelix Acetate (CETROTIDE) 0.25 mg kit Inject 1 Kit subcutaneously once daily for 7 doses. 7 Kit 2 11/02/2021 11/09/2021 Active Comment on above: Inject 1 Kit subcuta neously once daily for 7 doses. doxycycline hyclate 100 mg oral tablet (1 source) Tetracycline-class Drug Start: 05-05-2024 End: 05-12-2024 take 1 tablet by mouth twice daily doxycycline (VIBRA-TABS) 100 mg tablet Indications: Rhinosinusitis Take 1 tablet by mouth two times a day for 7 days. 14 tablet 05/05/2024 05/12/2024 Active 1.5 ml follitropin jackson 600 unt/ml pen injector (1 source) Start: 11-02-2021 inject 250 [IU] by subcutaneous injection once daily Follitropin Jackson (GONAL-F RFF REDI-JECT) 900/1.5 unit/mL pnij Inject 250 Units subcutaneously once daily. 4 Pen 3 11/02/2021 Active Start: 11-02-2021 inject 250 [IU] by s ubcutaneous injection once daily Follitropin Jackson (GONAL-F RFF REDI-JECT) 900/1.5 unit/mL pnij Inject 250 Units subcutaneously once daily. 4 Pen 3 11/02/2021 Active Comment on above: Inject 250 Units sub cutaneously once daily. ibuprofen 200 mg oral capsule (20 sources) Nonsteroidal Anti-inflammatory Drug Start: 11-10-19 End: 01-05-20 take 2 capsules by mouth once for headache Ibuprofen 200 mg cap Take 400 mg by mouth one time only. Patient taking for severe headache on 11/09/2021 0 11/09/2021 01/04/2022 Discontinued Comment on above: Take 400 mg by mouth one time only. Patient taking for severe headache on 11/09/2021 iv contrast (will be provided with radiology test) (15 sources) Start: 07-23-19 End: 07-24-19 iv contrast (will be provided with radiology test) MRI Breast PAKO Inject, intravenously, once for 1 dose. No IV access, insert saline lock prior to the beginning of sedation, infusion, injection of imaging exam. Discontinue saline lock post exam. If Pt has a central line or IVAD, may access for administration according to line specific nursing protocol. Once exam is complete flush line and de-access according to line specific nursing protocol in the MR contrast administration guidelines link 1 Each 07/23/2024 07/24/2024 Active Start: 03-21-2023 End: 03-22-2023 iv contrast (will be provide d with radiology test) Indications: Malignant neoplasm of upper-outer quadrant of left breast in female, estrogen receptor positive (HCC) , HER2-positive carcinoma of left breast (HCC) , Crohn's disease with complication, unspecified gastrointestinal tract location (HCC) , Thrombocytopenia (HCC) , Elevated alkaline phosphatase level CT ABD/PEL -Inject, intravenously, once for 1 dose.No IV access, insert saline lock prior to the beginning of sedation, infusion, injection of imaging exam. Discontinue saline lock post exam. If Pt. has a central line or IVAD, may access for administration according to line specific nursing protocol. Once exam is complete flush line and de-access according to line specific nursing protocol in the CT contrast administration guidelines link. 1 Each 0 03/21/2023 03/22/2023 Start: 11-07-2021 End: 11-08-2021 iv contrast (will be provide d with radiology test) MRI LT Breast Bx Inject, intravenously, once for 1 dose. No IV access, insert saline lock prior to the beginning of sedation, infusion, injection of imaging exam. Discontinue saline lock post exam. If Pt has a central line or IVAD, may access for administration according to line specific nursing protocol. Once exam is complete flush line and de-access according to line specific nursing protocol in the MR contrast administration guidelines link 1 Each 0 11/07/2021 11/08/2021 Start: 11-07-2021 End: 11-08-2021 iv contrast (will be provide d with radiology test) MRI LT Breast Bx Inject, intravenously, once for 1 dose. No IV access, insert saline lock prior to the beginning of sedation, infusion, injection of imaging exam. Discontinue saline lock post exam. If Pt has a central line or IVAD, may access for administration according to line specific nursing protocol. Once exam is complete flush line and de-access according to line specific nursing protocol in the MR contrast administration guidelines link 1 Each 0 11/07/2021 11/08/2021 Active Start: 10-19-2021 End: 10-20-2021 iv contrast (will be provide d with radiology test) Indications: Invasive ductal carcinoma of breast, female, left (HCC) MRI Breast PAKO Inject, intravenously, once for 1 dose. No IV access, insert saline lock prior to the beginning of sedation, infusion, injection of imaging exam. Discontinue saline lock post exam. If Pt has a central line or IVAD, may access for administration according to line specific nursing protocol. Once exam is complete flush line and de-access according to line specific nursing protocol in the MR contrast administration guidelines link 1 Each 0 10/19/2021 10/20/2021 Active Comment on above: MRI Breast PAKO Injec t, intravenously, once for 1 dose. No IV access, insert saline lock prior to the beginning of sedation, infusion, injection of imaging exam. Discontinue saline lock post exam. If Pt has a central line or IVAD, may access for administration according to line specific nursing protocol. Once exam is complete flush line and de-access according to line specific nursing protocol in the MR contrast administration guidelines link MRI LT Breast Bx Inj ect, intravenously, once for 1 dose. No IV access, insert saline lock prior to the beginning of sedation, infusion, injection of imaging exam. Discontinue saline lock post exam. If Pt has a central line or IVAD, may access for administration according to line specific nursing protocol. Once exam is complete flush line and de-access according to line specific nursing protocol in the MR contrast administration guidelines link CT ABD/PEL -Inject, intravenously, once for 1 dose.No IV access, insert saline lock prior to the beginning of sedation, infusion, injection of imaging exam. Discontinue saline lock post exam. If Pt. has a central line or IVAD, may access for administration according to line specific nursing protocol. Once exam is complete flush line and de-access according to line specific nursing protocol in the CT contrast administration guidelines link. Lactobacillus Combination No.4 (Probiotic) 3 billion cell capsule (2 sources) Start: take 3 capsules by mouth once daily Lactobacillus Combination No.4 (Probiotic) 3 billion cell capsule Active 3000 MMU CELLS PO DAILY April 12, 2022 11:00pm administer with a meal Start: 04-13-2022 take 3 capsules by m outh once daily Lactobacillus Combination No.4 (Probiotic) 3 billion cell capsule Active 3000 MMU CELLS PO DAILY April 13, 2022 12:00am administer with a meal Lactobacillus Combination No.8 (Adult Probiotic) 3 billion cell capsule (2 sources) Start: 08-21-2018 take 3 capsules by mouth once daily Lactobacillus Combination No.8 (Adult Probiotic) 3 billion cell capsule Active 3000 MMU CELLS PO DAILY August 21, 2018 12:42pm loperamide hydrochloride 2 mg oral tablet (2 sources) Opioid Agonist Start: 04-13-2022 take 1 tablet by mouth every six hours Loperamide (Imodium A-D) 2 mg tablet Active 2 MG PO EVERY 6 HOURS April 12, 2022 11:00pm Summers (Nk) (1 source) Start: 10-28-2021 Summers (Nk) A ctive October 28, 2021 12:00am perflutren lipid microspheres 1.3 mL in NaCl (PF) 0.9% 10 mL injection (DEFINITY) (20 sources) Start: 01-02-2023 End: 04-02-2024 perflutren lipid microspheres 1.3 mL in NaCl (PF) 0.9% 10 mL injection (DEFINITY) Start: 10-09-2022 End: 01-08-2024 perflutren lipid microsphere s 1.3 mL in NaCl (PF) 0.9% 10 mL injection (DEFINITY) Start: 07-06-2022 End: 10-05-2023 perflutren lipid microsphere s 1.3 mL in NaCl (PF) 0.9% 10 mL injection (DEFINITY) Start: 03-29-2022 End: 06-28-2023 perflutren lipid microsphere s 1.3 mL in NaCl (PF) 0.9% 10 mL injection (DEFINITY) Start: 10-19-2021 End: 01-18-2023 perflutren lipid microsphere s 1.3 mL in NaCl (PF) 0.9% 10 mL injection (DEFINITY) 125 ml sodium chloride 9 mg/ ml prefilled syringe (20 sources) Start: 10-19-2021 End: 04-02-2024 sodium chloride 0.9 % (flush ) 10 mL (BD POSIFLUSH) Completed/Discontinued Medications Medication Drug Class(es) Dates Sig (Normalized) Sig (Original) acetaminophen 500 mg oral tablet (16 sources) Start: 04-17-2022 End: 05-18-2022 take 2 tablets by mouth every six hours as needed acetaminophen (TYLENOL) 500 mg tablet Take 2 tablets by mouth every 6 hours as needed for pain. 20 tablet 0 04/17/2022 05/18/2022 Discontinued (Course of therapy completed) Comment on above: Take 2 tablets by [facility] every 6 hours as needed for pain. amoxicillin 500 mg oral capsule (12 sources) Penicillin-class Antibacterial Start: 06-26-2022 End: 07-06-2022 take 1 capsule by mouth twice daily amoxicillin (POLYMOX, AMOXIL) 500 mg capsule Take 1 capsule by mouth twice daily for 10 days. 20 capsule 0 06/26/2022 07/06/2022 Start: 09-12-2018 End: 09-26-2018 take 1000 mg by mouth twice daily Amoxicillin Discontinued 1000 MG PO TWICE A DAY 56 14 September 12, 2018 12:00am September 25, 2018 11:08pm Comment on above: Take 1 capsule by [facility] twice daily for 10 days. atropine sulfate 0.025 mg / diphenoxylate hydrochloride 2.5 mg oral tablet (20 sources) Anticholinergic, Cholinergic Muscarinic Antagonist, Antidiarrheal Start: 2021 End: 2022 take 1 tablet by mouth four times daily as needed diphenoxylate-atrop ine (LOMOTIL) 2.5-0.025 mg per tablet Indications: HER2-positive carcinoma of left breast (HCC) , Functional diarrhea Take 1 tablet by mouth four times daily as needed for up to 30 days. 60 tablet 02/16/2022 07/31/2022 Discontinued Comment on above: Take 1 tablet by [facility] four times daily as needed for up to 30 days. bifidobacterium infantis 4 mg oral capsule (19 sources) Start: 2010 End: 2012 take 1 capsule by mouth once daily ALIGN (Oral Capsule) 1 Capsule daily for 0 days Quantity: 30 {Capsule} Refills: 0 Ordered: 18-Jul-2012 Max Kaiser RN Start : 20-Dec-2010 End : 18-Jul-2012 Inactive calcium chloride 0.0014 meq/ml / potassium chloride 0.004 meq/ml / sodium chloride 0.103 meq/ml / sodium lactate 0.028 meq/ml injectable solution (2 sources) Start: 2023 End: 2023 take 20 mL intravenously every hour 20 mL/hr, intravenous, Continuous, Starting on Sun01/02/24 at 0830, Preprocedure cefadroxil 500 mg oral capsule (16 sources) Cephalosporin Antibacterial Start: 2021 End: 2021 take 1 capsule by mouth twice daily cefADROxil (DURICEF) 500 mg capsule Take 1 capsule by mouth twice daily. 28 capsule 0 04/17/2022 05/18/2022 Discontinued (Course of therapy completed) Comment on above: Take 1 capsule by [facility] twice daily. chorionic gonadotropin 89461 unt/ml injectable solution (20 sources) Gonadotropin Start: 2021 End: 2021 inject 1 mL by subcutaneous injection once chorionic gonadotropin (PREGNYL) 10,000 unit solr Mix with 1ml of diluent and inject 71829 units SQ once as directed for trigger 1 Each 0 11/03/2021 03/24/2022 Discontinued Comment on above: Mix with 1ml of dilu ent and inject 46816 units SQ once as directed for trigger dexamethasone 4 mg oral tablet (20 sources) Corticosteroid Start: 2021 End: 2021 take 1 tablet by mouth twice daily at mealtime dexAMETHasone (DECADRON) 4 mg tablet Take 1 tablet by mouth twice daily with meals. the day prior to and the day after each chemotherapy treatment. 24 tablet 0 11/07/2021 03/24/2022 Discontinued Start: 10-25-2021 End: 10-28-2021 take 1 tablet by mouth twice daily at mealtime dexAMETHasone (DECADRON) 4 mg tablet Take 1 tablet by mouth twice daily with meals. the day prior to and the day after each chemotherapy treatment. 24 tablet 0 10/25/2021 10/28/2021 Discontinued Comment on above: Take 1 tablet by gaurav th twice daily with meals. the day prior to and the day after each chemotherapy treatment. dilTIAZem (20 sources) Calcium Channel Celeste End: 05-18-2022 dilTIAZem ointment 2% (CPD) twice daily. 05/18/2022 Discontinued (Course of therapy completed) End: 05-18-2022 dilTIAZem ointment 2% (CPD) twice daily. 0 05/18/2022 Discontinued (Course of therapy completed) dilTIAZem ointme nt 2% (CPD) twice daily. 0 Suspended dilTIAZem ointme nt 2% (CPD) twice daily. 0 Active Comment on above: twice daily. drospirenone / Ethinyl Estradiol (9 sources) Progestin, Estrogen Start: 9 End: 2 take 1 tablet by mouth once daily Drospirenone-Ethinyl Estradiol (RICHARD, 28,) 3-0.02 mg per tablet Take 1 tablet by mouth once daily. 1 Package 0 12/23/2018 10/25/2021 Discontinued Start: 12-23-2018 take 1 tablet by gaurav th once daily Drospirenone-Ethinyl Estradiol (RICHARD, 28,) 3-0.02 mg per tablet Take 1 tablet by mouth once daily. 1 Package 0 12/23/2018 Active Comment on above: Take 1 tablet by gaurav once daily. enteric contrast (will be provided with radiology test) (4 sources) Start: 03-21-20 End: 03-22-20 enteric contrast (will be provided with radiology test) Indications: Malignant neoplasm of upper-outer quadrant of left breast in female, estrogen receptor positive (HCC) , HER2-positive carcinoma of left breast (HCC) , Crohn's disease with complication, unspecified gastrointestinal tract location (HCC) , Thrombocytopenia (HCC) , Elevated alkaline phosphatase level For CT ABD/PEL W IVCON Routine order Administer, As Directed One Time Only, via Oral, Rectal, both Oral and Rectal, Enteric Tube, Stoma or Indwelling Catheter, Enteric Contrast as designated per enteric contrast guidelines 1 Each 0 03/21/2023 03/22/2023 Comment on above: For CT ABD/PEL W IVC ON Routine order Administer, As Directed One Time Only, via Oral, Rectal, both Oral and Rectal, Enteric Tube, Stoma or Indwelling Catheter, Enteric Contrast as designated per enteric contrast guidelines 21 day ethinyl estradiol 0.602594 mg/hr / etonogestrel 0.005 mg/hr vaginal system (19 sources) Progestin, Estrogen Start: 12-21-19 11 End: 12-20-19 12 NUVARING, 0.12-0.015MG/24HR (Vaginal Ring) 1 Ring as needed for 365 days Refills: 0 Ordered: 16-Jul-2012 Start : 20-Dec-2010 End : 20-Dec-2011 Inactive Comments: Medication taken as needed. Comment on above: Medication taken as needed. Norgestimate-Ethinyl Estradiol (20 sources) Progestin, Estrogen Start: 09-26-19 14 End: 08-21-19 19 take 1 tablet by mouth once daily Norgestimate-Ethinyl Estradiol Discontinued 1 TABLET PO DAILY September 25, 2013 6:18am August 21, 2018 12:42pm Start: 09-25-2013 End: 08-21-2018 take 1 tablet by mouth once daily Norgestimate-Ethinyl Estradiol Discontinued 1 TABLET PO DAILY September 24, 2013 11:00pm August 21, 2018 11:42am Start: 09-25-2013 End: 08-21-2018 take 1 tablet by mouth once daily Norgestimate-Ethinyl Estradiol Discontinued 1 TABLET PO DAILY September 25, 2013 12:00am August 21, 2018 12:42pm Start: 07-18-2012 take 1 tablet by gaurav once daily SPRINTEC 28, 0.25-35MG-MCG (Oral Tablet) 1 Tablet qd for 30 days Refills: 0 Ordered: 18-Jul-2012 Braden Torres DO, DO, Kathleen Start : 18-Jul-2012 Active ferrous sulfate 325 mg oral tablet (20 sources) End: 10-10-2023 take 1 tablet by mouth every other day ferrous sulfate 325 mg (65 mg iron) tablet Take 325 mg by mouth every other day. 0 10/10/2023 Discontinued Comment on above: Take 325 mg by mouth every other day. 1.08 ml follitropin beta 833 unt/ml cartridge (20 sources) Start: 11-03-2021 End: 03-24-2022 inject 250 [IU] by subcutaneous injection once daily Follitropin Beta (FOLLISTIM AQ) 900 unit/1.08 mL Inject 250 Units subcutaneously once daily. 3 Each 0 11/03/2021 03/24/2022 Discontinued Comment on above: Inject 250 Units sub cutaneously once daily. 0.5 ml ganirelix acetate 0.5 mg/ml prefilled syringe (20 sources) Gonadotropin Releasing Hormone Antagonist Start: 11-03-2021 End: 03-24-2022 inject 0.5 mL by subcutaneous injection once daily Ganirelix Acetate 250 mcg/0.5 mL Inject 0.5 mL subcutaneously once daily. 5 Each 0 11/03/2021 03/24/2022 Discontinued Comment on above: Inject 0.5 mL subcut aneously once daily. glucagon (rdna) 1 mg injection (2 sources) Antihypoglycemic Agent Start: 01-02-2024 End: 01-02-2024 intravenous, As needed, Starting on Sun01/02/24 at 0830, Intraprocedure hydrocortisone acetate 25 mg rectal suppository (19 sources) Corticosteroid Start: 01-28-2013 End: 02-07-2013 ANUSOL-HC, 25MG (Rectal Suppository) 1 Suppository daily prn for 0 days Quantity: 30 {Suppository} Refills: 0 Ordered: 07-Feb-2013 Max Kaiser RN Start : 28-Jan-2013 End : 07-Feb-2013 Inactive Lactobacillus acidophilus (9 sources) End: 10-25-2021 LACTOBACILLUS ACIDOPHILUS (PROBIOTIC ORAL) Take by mouth. Plexus capsule, Pt takes 1 daily. 0 10/25/2021 Discontinued LACTOBACILLUS AC IDOPHILUS (PROBIOTIC ORAL) Take by mouth. Plexus capsule, Pt takes 1 daily. 0 Active Comment on above: Take by mouth. Plexu s capsule, Pt takes 1 daily. letrozole 2.5 mg oral tablet (20 sources) Aromatase Inhibitor Start: 11-04-19 End: 02-17-20 take 2 tablets by mouth once daily letrozole (FEMARA) 2.5 mg tablet Take 2 tablets by mouth once daily. 60 tablet 0 11/03/2021 02/16/2022 Discontinued Comment on above: Take 2 tablets by [facility] once daily. 1 ml leuprolide acetate 3.75 mg/ml prefilled syringe (20 sources) Gonadotropin Releasing Hormone Receptor Agonist Start: 07-17-19 End: 07-17-19 inject 1 dose by intramuscular injection once 3.75 mg, INTRAMUSCULAR, ONCE, 1 dose, On Lara 07/17/24 at 1600, Hazardous Chemotherapy Drug: Use appropriate PPE. Start: 06-19-2024 End: 06-19-2024 inject 1 dose by intramuscular injection once 3.75 mg, INTRAMUSCULAR, ONCE, 1 dose, On Lara 06/19/24 at 1600, Hazardous Chemotherapy Drug: Use appropriate PPE. Start: 05-22-2024 End: 05-22-2024 inject 1 dose by intramuscular injection once 3.75 mg, INTRAMUSCULAR, ONCE, 1 dose, On Lara 05/22/24 at 1530, Hazardous Chemotherapy Drug: Use appropriate PPE. Start: 04-24-2024 End: 04-24-2024 inject 1 dose by intramuscular injection once 3.75 mg, INTRAMUSCULAR, ONCE, 1 dose, On Lara 04/24/24 at 1530, Hazardous Chemotherapy Drug: Use appropriate PPE. Start: 03-24-2024 End: 03-24-2024 inject 1 dose by intramuscular injection once 3.75 mg, INTRAMUSCULAR, ONCE, 1 dose, On Sun03/24/24 at 1530, Hazardous Chemotherapy Drug: Use appropriate PPE. Start: 02-26-2024 End: 02-26-2024 inject 1 dose by intramuscular injection once 3.75 mg, INTRAMUSCULAR, ONCE, 1 dose, On Sun02/26/24 at 1530, Hazardous Chemotherapy Drug: Use appropriate PPE. Start: 01-28-2024 End: 01-28-2024 leuprolide 3.75 mg injection (LUPRON DEPOT) Start: 01-01-2024 End: 01-01-2024 leuprolide 3.75 mg injection (LUPRON DEPOT) Start: 12-04-2023 End: 12-04-2023 leuprolide 3.75 mg injection (LUPRON DEPOT) Start: 11-11-2021 leuprolide, 1- month, (Lupron Depot) 3.75 mg injection Inject 3.75 mg into the muscle every 30 (thirty) days. 11/11/2021 Active Start: 11-11-2021 End: 10-20-2024 LUPRON DEPOT 3.75 mg injecti on Inject 3.75 mg intramuscularly once every month. Once a month during chemotherapy 11/11/2021 10/20/2024 Discontinued Start: 11-02-2021 End: 03-24-2022 inject 4 mg by subcutaneous injection once leuprolide (LUPRON) 1 mg/0.2 mL Inject 4 mg Subcutaneously once for trigger 1 Kit 0 11/02/2021 03/24/2022 Discontinued Comment on above: Inject 4 mg Subcutan eously once for trigger Inject 3.75 mg intra muscularly once every month. Once a month during chemotherapy lidocaine 25 mg/ml / prilocaine 25 mg/ml topical cream (20 sources) Antiarrhythmic, Amide Local Anesthetic Start: End: lidocaine-prilocaine (EMLA) 2.5-2.5 % cream Apply to port site 60 minutes prior to accessing 15 g 2 11/07/2021 03/24/2022 Discontinued Comment on above: Apply to port site 6 0 minutes prior to accessing Meperidine (2 sources) Opioid Agonist Start: 024 End: 024 intravenous, As needed, Starting on Sun01/02/24 at 0829, Intraprocedure metaxalone 800 mg oral tablet (19 sources) Start: 014 End: take 1 tablet by mouth three times daily as needed METAXALONE, 800MG (Oral Tablet) 1 (one) Tablet tid prn for 0 days Quantity: 30 {Tablet} Refills: 0 Ordered: 02-Jan-2014 Start : 03-Oct-2013 End : 02-Jan-2014 Inactive metroNIDAZOLE 500 mg oral tablet (20 sources) Nitroimidazole Antimicrobial Start: 011 End: take 1 tablet by mouth every eight hours METRONIDAZOLE, 500MG (Oral Tablet) 1 Tablet q8 hrs for 14 days Quantity: 42 {Tablet} Refills: 0 Ordered: 25-Jan-2011 Margy Elizabeth Start : 25-Jan-2011 End : 08-Feb-2011 Inactive Start: 01-02-2011 End: 01-12-2011 take 1 tablet by mouth twice daily FLAGYL, 500MG (Oral Tablet) 1 Tablet bid for 10 days Quantity: 20 {Tablet} Refills: 0 Ordered: 02-Jan-2011 Margy Elizabeth Start : 02-Jan-2011 End : 12-Jan-2011 Inactive 2 ml midazolam 5 mg/ml injection (2 sources) Benzodiazepine Start: 01-02-2024 End: 01-02-2024 intravenous, Administer over 5 Minutes, As needed, Starting on Sun01/02/24 at 0829, Intraprocedure No Reported Medications (1 source) No Reported Medications Quantity: 0 Refills: 0 Ordered: 17-Mar-2021 DO Active ondansetron 8 mg oral tablet (20 sources) Serotonin-3 Receptor Antagonist Start: 12-20-2021 End: 03-24-2022 take 1 tablet by mouth every eight hours as needed for nausea ondansetron (ZOFRAN) 8 mg tablet Indications: cancer chemotherapy-induced nausea and vomiting Take 1 tablet by mouth every 8 hours as needed for nausea/vomiting. 30 tablet 2 12/20/2021 03/24/2022 Discontinued Comment on above: Take 1 tablet by gaurav th every 8 hours as needed for nausea/vomiting. OTC PRODUCT (20 sources) End: 09-22-2024 OTC PRODUCT Liver upplement 4 capsules once daily 09/22/2024 Discontinued OTC PRODUCT Live r upplement 4 capsules once daily Active OTC PRODUCT Live r upplement 4 capsules once daily 0 Active potassium chloride 20 meq powder for oral solution (20 sources) Start: 10-09-2022 End: 10-10-2023 take 20 mEq by mouth once daily potassium chloride (KLOR-CON) 20 mEq packet Take 20 mEq by mouth once daily. 30 Packet 2 03/21/2023 10/10/2023 Discontinued Start: 09-18-2022 End: 10-09-2022 take 1 tablet by mouth once daily potassium chloride ER (KLOR-CON) 20 mEq tablet Take 1 tablet by mouth once daily. 30 tablet 2 09/18/2022 10/09/2022 Discontinued Comment on above: Take 1 tablet by gaurav th once daily. Take 20 mEq by mouth once daily. predniSONE 10 mg oral tablet (19 sources) Start: 12-24-19 19 End: 12-31-19 19 take 3 tablets by mouth once daily at mealtime predniSONE 10 MG Oral Tablet 3 (three) Tablet PO Daily for 7 days Quantity: 21 {Tablet} Refills: 0 Ordered: 23-Dec-2018 Max Guaman Start : 23-Dec-2018 End : 30-Dec-2018 Inactive Comments: Take with food Comment on above: Take with food promethazine hydrochloride 25 mg oral tablet (20 sources) Phenothiazine Start: 04-13-20 take 12.5 mg by mouth every six hours Promethazine Active 12.5 MG PO EVERY 6 HOURS April 12, 2022 11:00pm Start: 11-07-2021 End: 10-10-2023 take 1 tablet by mouth every six hours as needed promethazine (PHENERGAN) 25 mg tablet Take 1 tablet by mouth every 6 hours as needed. FOR NAUSEA 30 tablet 2 11/07/2021 05/02/2022 Discontinued Start: 10-25-2021 End: 10-28-2021 take 1 tablet by mouth every six hours as needed promethazine (PHENERGAN) 25 mg tablet Take 1 tablet by mouth every 6 hours as needed. FOR NAUSEA 30 tablet 2 10/25/2021 10/28/2021 Discontinued Comment on above: Take 1 tablet by gaurav th every 6 hours as needed. FOR NAUSEA silver sulfADIAZINE 10 mg/ml topical cream (16 sources) Sulfonamide Antibacterial Start: End: silver sulfADIAZINE (SILVADENE) 1 % cream Apply to wounds twice a day 50 g 3 04/17/2022 05/18/2022 Discontinued (Course of therapy completed) Comment on above: Apply to wounds twic e a day sulfamethoxazole 800 mg / trimethoprim 160 mg oral tablet (19 sources) Dihydrofolate Reductase Inhibitor Antibacterial, Sulfonamide Antimicrobial Start: 014 End: take 1 tablet by mouth twice daily BACTRIM DS, 800-160MG (Oral Tablet) 1 (one) Tablet bid for 4 days Quantity: 8 {Tablet} Refills: 0 Ordered: 03-Oct-2013 Braden Torres DO, DO, Kathleen Start : 03-Oct-2013 End : 07-Oct-2013 Inactive 1 ml triamcinolone acetonide 40 mg/ml injection (2 sources) Corticosteroid Start: 025 End: triamcinolone acetonide 40 mg injection (KeNALog 40) Start: 09-03-2024 End: 09-03-2024 inject 1 dose by intramuscular injection once 40 mg, INTRAMUSCULAR, ONCE, 1 dose, On Sun09/03/24 at 1700 Problems Active Problems Problem Classification Problem Date Documented Da te Episodic/Chronic Abdominal pain (20 sources) Right lower quadrant pain; Translations: [Abdominal pain, acute, right lower quadrant] Onset: 4 Resolved: 3 05-24-2015 Episodic Administrative/social admission (20 sources) Health examination of defined subpopulations; Translations: [School physical exam] 12-23-2018 Episodic Allergic reactions (20 sources) Contact dermatitis due to plants; Translations: [Dermatitis due to plants, including poison jena, sumac, and oak] 12-23-2018 Episodic Cancer of breast (20 sources) Malignant tumor of breast ; Translations: [Malignant neoplasm of unspecified site of unspecified female breast] Onset: 2 Chronic Coagulation and hemorrhagic disorders (20 sources) Thrombocytopenic disorder; Translations: [Thrombocytopenia, unspecified] Onset: 2 Chronic Complications of surgical procedures or medical care (20 sources) 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 chemotherapy; Translations: [Antineoplastic chemotherapy induced anemia] Onset: 2 Chronic Contraceptive and procreative management (4 sources) H/O: malignant neoplasm; Translations: [Encounter for fertility preservation counseling] Onset: 5 Episodic Diseases of white blood cells (1 source) Neutropenia due to and following chemotherapy; Translations: [Agranulocytosis secondary to cancer chemotherapy] Chronic E Codes: Natural/environment (1 source) Bitten or stung by nonvenomous insect and other nonvenomous arthropods, initial encounter; Translations: [Tick bite of right upper arm, initial encounter] Onset: 5 Episodic Female infertility (14 sources) Primary female infertility; Translations: [Female infertility, unspecified] Onset: 5 Chronic Gastrointestinal hemorrhage (20 sources) Rectal hemorrhage; Translations: [Rectal bleeding] 12-23-2018 Episodic Comment on above: resolved think hemor roids better with anusol Headache; including migraine (11 sources) Cervicogenic headache; Translations: [Cervicogenic headache] Onset: 4 Episodic Intestinal obstruction without hernia (20 sources) Ileus, unspecified; Translations: [Intestinal obstruction co-occurrent and due to decreased peristalsis] 12-23-2018 Episodic Comment on above: spontaneously resolv ed Menstrual disorders (20 sources) Dysmenorrhea; Translations: [Dysmenorrhea, unspecified] Onset: 3 Resolved: 6 12-03-2012 Chronic Nonmalignant breast conditions (12 sources) Breast lump; Translations: [Unspecified lump in the left breast, unspecified quadrant] Episodic Other aftercare (20 sources) Patient encounter status; Translations: [Encounter for adjustment and management of vascular access device] Episodic Other aftercare (20 sources) Post-discharge follow-up; Translations: [Hospital discharge follow-up] 12-23-2018 Episodic Comment on above: sen by Dr. Dos Santos [facility] small bowel obstruction resolved spontaneously and CT with mucosal thickening of the terminal ileum Other bone disease and musculoskeletal deformities (18 sources) Segmental and somatic dysfunction; Translations: [Segmental and somatic dysfunction of cervical region] 08-18-2019 Episodic Other bone disease and musculoskeletal deformities (5 sources) Segmental and somatic dysfunction of cervical region; Translations: [Nonallopathic lesions, cervical region] Onset: 4 Episodic Other bone disease and musculoskeletal deformities (5 sources) Segmental and somatic dysfunction of thoracic region; Translations: [Nonallopathic lesions, thoracic region] Onset: 4 Episodic Other bone disease and musculoskeletal deformities (3 sources) Segmental and somatic dysfunction of lumbar region; Translations: [Nonallopathic lesions, lumbar region] Onset: 4 Episodic Other bone disease and musculoskeletal deformities (1 source) Segmental and somatic dysfunction of pelvic region; Translations: [Segmental and somatic dysfunction of pelvic region] Onset: 4 Episodic Other connective tissue disease (20 sources) Spasm; Translations: [Muscle Spasm] 12-23-2018 Episodic Other endocrine disorders (20 sources) Hypoglycemia; Translations: [Hypoglycemia] 12-23-2018 Chronic Other female genital disorders (1 source) Dyspareunia; Translations: [Other specified dyspareunia] 12-28-2023 Chronic Other gastrointestinal disorders (20 sources) Malabsorption - iron; Translations: [Intestinal malabsorption, unspecified] Onset: 3 02-13-2023 Chronic Other gastrointestinal disorders (20 sources) Diarrhea; Translations: [Diarrhea] Resolved: 3 08-07-2012 Episodic Comment on above: occasional diarrhea, will repeat C Jerris already been treated for CDif 01-02, Other gastrointestinal disorders (20 sources) Abdominal bloating; Translations: [Abdominal bloating] 12-23-2018 Episodic Comment on above: will rule out inflam matory bowel disease get GI referal and colonoscopy Other gastrointestinal disorders (1 source) Diarrhea of presumed infectious origin; Translations: [Diarrhea, unspecified] Episodic Other gastrointestinal disorders (1 source) Splenomegaly; Translations: [Splenomegaly, not elsewhere classified] 10-20-2024 Episodic Other inflammatory condition of skin (20 sources) Itching of skin; Translations: [Itch of skin] 12-23-2018 Episodic Other inflammatory condition of skin (4 sources) Pruritus, unspecified; Translations: [Itch of skin] 12-23-2018 Episodic Other liver diseases (3 sources) Serum alkaline phosphatase raised; Translations: [Abnormal levels of other serum enzymes] 01-23-2023 Episodic Other nutritional; endocrine; and metabolic disorders (20 sources) Weight loss; Translations: [Weight Loss] 12-23-2018 Episodic Other and delivery including normal (1 source) Encounter for test, result positive; Translations: [Encounter for test, result positive (HCC)] Onset: 5 Episodic Other screening for suspected conditions (not mental disorders or infectious disease) (15 sources) Cancer cervix screening status; Translations: [Encounter for screening for malignant neoplasm of cervix] Onset: 5 12-28-2023 Episodic Other skin disorders (20 sources) Eruption; Translations: [Rash] 12-23-2018 Episodic Other skin disorders (1 source) Keloid scar; Translations: [Hypertrophic scar] 09-03-2024 Episodic Other upper respiratory infections (7 sources) Sinusitis; Translations: [Chronic sinusitis, unspecified] 09-12-2018 Chronic Other upper respiratory infections (9 sources) Upper respiratory infection; Translations: [Acute upper respiratory infection, unspecified] Episodic Otitis media and related conditions (6 sources) Dysfunction of eustachian tube; Translations: [Other specified disorders of Eustachian tube, right ear] 09-06-2018 Episodic Regional enteritis and ulcerative colitis (20 sources) Crohn's disease, unspecified, with unspecified complications; Translations: [Crohn's disease of ileum] Onset: 8 Chronic Residual codes; unclassified (20 sources) FH: Diabetes mellitus; Translations: [FAMILY HISTORY OF DIABETES MELLITUS] 12-23-2018 Episodic Residual codes; unclassified (20 sources) Body mass index (BMI) 22.0-22.9, adult; Translations: [Body mass index 20-24 - normal] 12-23-2018 Episodic Residual codes; unclassified (7 sources) Family history of diabetes mellitus Episodic Residual codes; unclassified (2 sources) Family history of breast cancer; Translations: [Family history of malignant neoplasm of breast] Onset: 2 Episodic Residual codes; unclassified (20 sources) Non-smoker; Translations: [Nonsmoker] 12-23-2018 Episodic Residual codes; unclassified (1 source) Prevention status; Translations: [Encounter for prophylactic removal of breast] Episodic Residual codes; unclassified (3 sources) Postoperative state; Translations: [Other specified postprocedural states] Episodic Residual codes; unclassified (2 sources) History of breast reconstruction; Translations: [Other specified postprocedural states] Episodic Spondylosis; intervertebral disc disorders; other back problems (20 sources) Backache; Translations: [Back pain] Onset: 4 12-23-2018 Episodic Superficial injury; contusion (1 source) Insect bite (nonvenomous) of right upper arm, initial encounter; Translations: [Tick bite of right upper arm, initial encounter] Onset: 5 Episodic Unclassified (1 source) Low back pain, unspecified; Translations: [Low back pain, unspecified] Onset: 4 Unclassified (1 source) HER2-positive carcinoma of left breast (HCC); Translations: [HER2-positive carcinoma of left breast (HCC)] Onset: 2 Urinary tract infections (20 sources) Urinary tract infectious disease; Translations: [Pyelocystitis] 12-23-2018 Episodic Comment on above: per ER Past or Other Problems Problem Classification Problem Date Documented Da te Episodic/Chronic Anal and rectal conditions (20 sources) Anal fissure; Translations: [Anal fissure, unspecified] Onset: 03-24-2022 Episodic Cancer of breast (20 sources) History of malignant neoplasm of breast; Translations: [Personal history of malignant neoplasm of breast] Onset: 09-03-2024 Episodic Deficiency and other anemia (20 sources) Iron 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 dietary iron intake; Translations: [Other iron deficiency anemias] Onset: 02-13-2023 02-13-2023 Episodic Immunizations and screening for infectious disease (20 sources) Encounter for screening for respiratory tuberculosis; Translations: [Tuberculosis screening status] Onset: 01-05-2025 12-23-2018 Episodic Other aftercare (4 sources) Encounter for adjustment and management of vascular access device; Translations: [Fitting and adjustment of vascular catheter] Onset: 05-04-2023 Episodic Other connective tissue disease (20 sources) Ganglion of joint; Translations: [Ganglion, unspecified site] Onset: 09-17-2006 09-17-2006 Episodic Other gastrointestinal disorders (20 sources) Functional diarrhea; Translations: [Functional diarrhea] Onset: 02-16-2022 02-16-2022 Episodic Other liver diseases (12 sources) Alkaline phosphatase raised; Translations: [Abnormal levels of other serum enzymes] Onset: 07-10-2023 03-21-2023 Episodic Other liver diseases (2 sources) Abnormal levels of other serum enzymes; Translations: [Abnormal levels of other serum enzymes] Onset: 07-10-2023 Episodic Other non-traumatic joint disorders (20 sources) Shoulder pain; Translations: [Pain in left shoulder] Onset: 06-19-2022 Episodic Other non-traumatic joint disorders (20 sources) Pain in left shoulder; Translations: [Pain in joint, shoulder region] Onset: 06-19-2022 06-19-2022 Episodic Other skin disorders (20 sources) Acne; Translations: [Other acne] Onset: 04-12-2006 04-12-2006 Episodic Other skin disorders (20 sources) Vitiligo; Translations: [Vitiligo] Onset: 04-12-2006 04-12-2006 Episodic Other skin disorders (1 source) Hypertrophic scar; Translations: [Keloid scar] Onset: 09-03-2024 Episodic Residual codes; unclassified (20 sources) At risk of lymphedema; Translations: [Other specified personal risk factors, not elsewhere classified] Onset: 10-21-2021 10-21-2021 Episodic Residual codes; unclassified (20 sources) Abnormal cytology findings; Translations: [ASCUS with positive high risk HPV] Onset: 09-04-2012 Resolved: 08-28-2016 07-04-2021 Episodic Residual codes; unclassified (2 sources) Estrogen receptor positive status [ER+]; Translations: [Malignant neoplasm of upper-outer quadrant of left breast in female, estrogen receptor positive (HCC)] Onset: 10-21-2021 Episodic Residual codes; unclassified (1 source) Other specified postprocedural states; Translations: [S/P breast reconstruction] Onset: 09-03-2024 Episodic Tuberculosis (20 sources) Tuberculosis Unclassified (20 sources) Unclassified (14 sources) Abdominal Pain,RLQ (789.03) Unclassified (20 sources) Unspecified Diagnosis 01-02-2014 Unclassified (10 sources) Post-discharge follow-up; Translations: [Hospital discharge follow-up] 12-23-2018 Comment on above: sen by Dr. Dos Santos [facility] small bowel obstruction resolved spontaneously and CT with mucosal thickening of the terminal ileum Unclassified (10 sources) Non-smoker; Translations: [Nonsmoker] 12-23-2018 Unclassified (7 sources) Pyelocystitis Unclassified (7 sources) Muscle Spasm Unclassified (7 sources) Ileus Unclassified (7 sources) BMI 22.0-22.9, adult Unclassified (7 sources) Rash Unclassified (7 sources) Dermatitis due to plants, including poison jena, sumac, and oak Unclassified (7 sources) Itch of skin Unclassified (4 sources) School physical exam (V70.5) Unclassified (2 sources) Patient encounter status 11-19-2024 Viral infection (6 sources) Glandular fever pharyngitis; Translations: [Infectious mononucleosis, unspecified without complication] Onset: 11-08-2023 11-08-2023 Episodic Results Test Name Value Interpretation Reference Range [facility] HCG.beta subunit Qn 6214.0 m[IU]/mL High <5.0 [facility] Comment on above: Order Comment: Speci men Type: BLOOD SPECIMENOrdering Facility: Address: [address] [place] [address] Result Comment: DARRELL TITATIVE HCG NORMAL RANGES Weeks of Gestation (Weeks Since LMP) 3 Weeks (5.8-71.2 mIU/mL) 4 Weeks (9.5-750 mIU/mL) 5 Weeks (217-7138 mIU/mL) 6 Weeks (158-70139 mIU/mL) 7 Weeks (3697-439906 mIU/mL) 8 Weeks (36134-051325 mIU/mL) 9 Weeks (53411-995390 mIU/mL) 10 Weeks (88689-456359 mIU/mL) 12 Weeks (14458-700931 mIU/mL) Referenced to 4th IS of [facility] Performed By: #### 2 1198-7 ####[facility]CLIA [id number] [place] [address] [place] Estradiol SerPl-mCncon 05-15 E2 [Mass/Vol] 356 pg/mL Normal [facility] Comment on above: Order Comment: Speci men Type: BLOOD SPECIMENOrdering Facility: Address: [address] [place] [address] Result Comment: This test is not suitable for patients receiving treatment with the drug Fulvestrant (Faslodex). The drug causes an interference leading to falsely elevated estradiol results. Menstrual cycle Estradiol reference ranges: Follicular : < 234 pg/mL Ovulation : 41 to 398 pg/mL Luteal : < 342 pg/mL Estradiol reference ranges vary by gestational period: First trimester : 154 to 3243 pg/mL Second trimester : 1561 to 79340 pg/mL Third trimester : 8285 to >59870 pg/mL Post-menopausal Estradiol reference range: < 41 pg/mL Reference: 1. Estradiol - E2 (Estradiol III) [package insert V 3.0 Austrian]. [facility], [place], [place], December 2015. Performed By: #### 2 243-4 ####[facility]CL[facility] [id number] [place] [address] [place] B-HCG SerPl-aCncon 5 HCG.beta subunit Qn 568.7 m[IU]/mL High <5.[address] [facility] Comment on above: Order Comment: Speci men Type: BLOOD SPECIMENOrdering Facility: Address: [address] [place] [address] Result Comment: DARRELL TITATIVE HCG NORMAL RANGES Weeks of Gestation (Weeks Since LMP) 3 Weeks (5.8-71.2 mIU/mL) 4 Weeks (9.5-750 mIU/mL) 5 Weeks (217-7138 mIU/mL) 6 Weeks (158-15162 mIU/mL) 7 Weeks (3697-728123 mIU/mL) 8 Weeks (11027-155136 mIU/mL) 9 Weeks (88264-764341 mIU/mL) 10 Weeks (02435-977837 mIU/mL) 12 Weeks (83841-205998 mIU/mL) Referenced to 4th IS of [facility] Performed By: #### 2 1198-7 ####[facility]CLIA [id number] [place] [address] [place] Estradiol SerPl-mCncon 05-08 E2 [Mass/Vol] 268 pg/mL Normal [facility] Comment on above: Order Comment: Speci men Type: BLOOD SPECIMENOrdering Facility: Address: [address] [place] [address] Result Comment: This test is not suitable for patients receiving treatment with the drug Fulvestrant (Faslodex). The drug causes an interference leading to falsely elevated estradiol results. Menstrual cycle Estradiol reference ranges: Follicular : < 234 pg/mL Ovulation : 41 to 398 pg/mL Luteal : < 342 pg/mL Estradiol reference ranges vary by gestational period: First trimester : 154 to 3243 pg/mL Second trimester : 1561 to 22869 pg/mL Third trimester : 8285 to >50095 pg/mL Post-menopausal Estradiol reference range: < 41 pg/mL Reference: 1. Estradiol - E2 (Estradiol III) [package insert V 3.0 Austrian]. [facility], [place], [place], December 2015. Performed By: #### 2 839-9, 2243-4, 95996-2 ####[facility]CL[facility] [id number] [place] [id number] [place] LH SerPl-aCncon 05-08-2025 Lutropin Qn m[IU]/mL Normal See comment [facility] Comment on above: Order Comment: Speci men Type: BLOOD SPECIMENOrdering Facility: Address: [address] [place] [address] Result Comment: Refe rence range: Follicular: 2.4-12.6 mIU/mL Midcycle: 14.0-95.6 mIU/mL Luteal: 1.0-11.4 mIU/mL Post Darfur: 7.7-58.5 mIU/mL Performed By: #### 2 839-9, 3-4, 72373-1 ####[facility] LABCLIA [id number] [address] OF [facility] Progest SerPl-mCncon 05-08- 025 Progesterone [Mass/Vol] 33.1 ng/mL Normal See comment [facility] Comment on above: Order Comment: Speci men Type: BLOOD SPECIMENOrdering Facility: Address: [address] [place] [address] Result Comment: Mens trual Cycle Progesterone Reference Ranges: Follicular: <1.0 ng/mL Ovulation: <12.1 ng/mL Luteal: 1.8 to 23.9 ng/mL. Progesterone Reference Ranges vary by gestational period: First Trimester: 11.0 to 44.3 ng/mL Second Trimester: 25.4 to 83.3 ng/mL Third Trimester: 58.7 to 214 ng/mL Post menopausal Progesterone: <0.5 ng/mL Reference: 1. Progesterone (Progesterone III) [package insert V 1.0 Austrian]. [facility], [place], [place]. April 2015. Performed By: #### 2 839-9, 3-4, 26312-1 ####[facility] LABCLIA [id number] [address] OF [facility] CNOVon 05-06-2025 CNOV Office Visit (WOUCA) STEPHEN SELF ([id number]) 1990 F CHT Date Time Provider Department 05/06/25 1:45 PM RADHA STORY During your visit today, we recorded the following information about you: Temperature Pulse Respiration Blood pressure 98.7 degrees 84/minute 18/minute 123/84 Weight 70.2 kg Radha Story APRN.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 05/06/2025 2:53 PM Signed [facility] Subjective Stephen Maldonado Clair is a 35 year old female. Patient presents with: Insect Bite: Tick bite R inner bicep x1 day HPI The patient is a 35-year-old female presenting for evaluation of a recent tick bite. Tick Bite: - Noticed a tick on her arm yesterday morning. - Tick was small and flat; removed it with tweezers. - Uncertain if the entire tick was removed; believes a piece of the head may still be embedded. - Unsure how long the tick was attached, but estimates less than 24 hours. - Denies the tick being engorged or having fed for a long time. - Observes a red mi'kmaq around the bite site, believes it is due to irritation. Possible : - Underwent IVF transfer on the . - Tested positive for twice; awaiting blood work on Sunday to confirm. - Concerned about the safety of taking doxycycline due to potential . - Fertility clinic is part of [facility]; has not yet received a response to her benchee message regarding the tick bite. Review of Systems Skin: (+) tick bite on arm, (+) localized erythema Objective BP 123/84 Pulse 84 Temp 37.1 ?C (98.7 ?F) Resp 18 Wt 70.2 kg (154 lb 12.2 oz) LMP 03/08/2025 (Exact Date) SpO2 99% BMI 23.53 kg/m? Physical Exam General: No acute distress. Skin: Erythema around tick bite on arm, small tick head possibly embedded. { 1. Tick bite of right upper arm, initial encounter (S40.086C) - Tick was likely attached for less than 24 hours; head may still be partially embedded. - Prophylactic doxycycline discussed, but patient may be following recent IVF transfer; awaiting confirmation from fertility clinic. - Consulted with fertility specialist, who agreed amoxicillin TID for 2 weeks as safe in early . - Start amoxicillin TID for 2 weeks; prescription sent. - Advised patient to monitor for symptoms of Lyme disease (headache, body aches, fever, fatigue) and follow up with primary care if symptoms develop. - Provided education on natural expulsion of retained tick parts and signs of infection. and Recording using [employer] software for draft documentation of the visit was discussed with the patient/authorized guest experience representative; all questions welcomed and answered. Patient/authorized guest experience representative agreed to proceed History and Record Review External record(s) reviewed: no prior records. Disposition The patient was discharged. Procedures Allergies As of Date: 05/06/2025 (No Known Allergies) Date Reviewed: 05/06/2025 Reviewed by: Daya Carbajal MA - Fully Assessed Reason for Visit: Insect Bite [929] Cmt: Tick bite R inner bicep x1 day Primary Visit Diagnosis:Tick bite of right upper arm, initial encounter [S40.861A, W57.XXXA] Order(s):amoxicillin (AMOXIL) 500 mg capsuleTake 1 capsule by mouth every 8 hours for 14 days.Disp: 42 capsuleRfl: 0 Prescriptions as of 05/06/2025 - amoxicillin (AMOXIL) 500 mg capsule Take 1 capsule by mouth every 8 hours for 14 days. - letrozole (FEMARA) 2.5 mg tablet Take 2 tablets by mouth once daily. - chorionic gonadotropin (PREGNYL) 10,000 unit solr Inject 10,000 units once for HCG Trigger. Mix vials as directed per nursing in office. Administer subcutaneous. - Needle, Disp, 27 G (BD DISPOSABLE NEEDLES) 27 gauge x 1/2 ndle To be used to inject HCG trigger - Syringe with Needle, Disp, (BD LUER-SANTI SYRINGE) To be used to draw up HCG trigger - progesterone micronized (PROMETRIUM) 200 mg capsule Insert 200mg vaginally in AM and 200mg vaginally in PM Problem List As Of Date 05/06/2025 Noted Resolved ACNE NEC [L70.8] 04/12/2006 VITILIGO [L80] 04/12/2006 GANGLION JOINT (Right volar wrist) [M67.40] 09/17/2006 ASCUS with positive high risk HPV [[id number]] 09/04/2012 08/28/2016 Dysmenorrhea [N94.6] 12/03/2012 Breakthrough bleeding on control pills [N*12/27/2012 07/12/2015 Malignant neoplasm of upper-outer quadrant of l*10/21/2021 At risk for lymphedema [Z91.89] 10/21/2021 HER2-positive carcinoma of left breast (HCC) [C*10/25/2021 Functional diarrhea [K59.1] 02/16/2022 Crohn disease (HCC) [K50.90] 03/24/2022 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 chemotherapy [D64.*03/24/2022 Thrombocytopenia (HCC) [D69.6] 03/24/2022 Anal fissure [K60.2] 03/24/2022 Acute pain of left shoulder [M25.512] 06/19/2022 Iron 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 *02/13/2023 Iron malabsorption [K90.9] 02/13/2023 History of breast cancer [Z85.3] 09/15/2024 (more content not included)... [facility]CA[facility] STEPHEN SELF ([id number]) 1990 F T Date Time Provider Department 05/06/25 RADHA STORY During your visit today, we recorded the following information about you: Radha Story APRN.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 05/06/2025 2:54 PM Signed Please call patient let her know I got a hold of the fertility specialist and amoxicillin 3 times a day for 2 weeks is okay to take early trimester. Tell patient I called medicine into pharmacy to monitor for the signs of Lyme disease such as bodyaches, fever, headache, nausea, joint stiffness. If any of these occur she needs to follow-up with primary care Jamilah Siu LPN 05/06/2025 3:07 PM Signed Patient returned [place] went over notes below from urgent care provider with understanding. Aware rx sent to the pharmacy. Daya Carbajal MA 05/06/2025 3:14 PM Signed Left instructing patient to return call, also sending benchee message with information listed. Daya Carbajal MA Allergies As of Date: 05/06/2025 (No Known Allergies) Date Reviewed: 05/06/2025 Reviewed by: Daya Carbajal MA - Fully Assessed Prescriptions as of 05/06/2025 - amoxicillin (AMOXIL) 500 mg capsule Take 1 capsule by mouth every 8 hours for 14 days. - letrozole (FEMARA) 2.5 mg tablet Take 2 tablets by mouth once daily. - chorionic gonadotropin (PREGNYL) 10,000 unit solr Inject 10,000 units once for HCG Trigger. Mix vials as directed per nursing in office. Administer subcutaneous. - Needle, Disp, 27 G (BD DISPOSABLE NEEDLES) 27 gauge x 1/2 ndle To be used to inject HCG trigger - Syringe with Needle, Disp, (BD LUER-SANTI SYRINGE) To be used to draw up HCG trigger - progesterone micronized (PROMETRIUM) 200 mg capsule Insert 200mg vaginally in AM and 200mg vaginally in PM Problem List As Of Date 05/06/2025 Noted Resolved ACNE NEC [L70.8] 04/12/2006 VITILIGO [L80] 04/12/2006 GANGLION JOINT (Right volar wrist) [M67.40] 09/17/2006 ASCUS with positive high risk HPV [[id number]] 09/04/2012 08/28/2016 Dysmenorrhea [N94.6] 12/03/2012 Breakthrough bleeding on control pills [N*12/27/2012 07/12/2015 Malignant neoplasm of upper-outer quadrant of l*10/21/2021 At risk for lymphedema [Z91.89] 10/21/2021 HER2-positive carcinoma of left breast (HCC) [C*10/25/2021 Functional diarrhea [K59.1] 02/16/2022 Crohn disease (HCC) [K50.90] 03/24/2022 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 chemotherapy [D64.*03/24/2022 Thrombocytopenia (HCC) [D69.6] 03/24/2022 Anal fissure [K60.2] 03/24/2022 Acute pain of left shoulder [M25.512] 06/19/2022 Iron 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 *02/13/2023 Iron malabsorption [K90.9] 02/13/2023 History of breast cancer [Z85.3] 09/15/2024 Breast cancer screening, high risk patient [Z12*09/15/2024 Encounter Status:Closed by DAYA CARBAJAL on 05/06/25 Normal [facility] CNCOon 04-24-2025 CNCO Letter Text Normal [facility] CNOVon 04-24-2025 CNOV Office Visit (ANDRBE ) STEPHEN SELF ([id number]) 1990 F CHT Date Time Provider Department 04/24/25 3:00 PM [facility] [employer] During your visit today, we recorded the following information about you: Emi Weinberg 04/24/2025 1:03 PM Signed Embryo Transfer procedure performed. Detailed notes can be found in the paper chart in the [facility] - [employer] SPECIALIST Office. [facility] Referring Provider: JAM FOLEY [[id number]] Allergies As of Date: 04/24/2025 (No Known Allergies) Date Reviewed: 04/24/2025 Reviewed by: Rachel Rodriges, SHRUTHI - Fully Assessed Primary Visit Diagnosis:Female infertility [N97.9] Prescriptions as of 04/27/2025 - letrozole (FEMARA) 2.5 mg tablet Take 2 tablets by mouth once daily. - chorionic gonadotropin (PREGNYL) 10,000 unit solr Inject 10,000 units once for HCG Trigger. Mix vials as directed per nursing in office. Administer subcutaneous. - Needle, Disp, 27 G (BD DISPOSABLE NEEDLES) 27 gauge x 1/2 ndle To be used to inject HCG trigger - Syringe with Needle, Disp, (BD LUER-SANTI SYRINGE) To be used to draw up HCG trigger - progesterone micronized (PROMETRIUM) 200 mg capsule Insert 200mg vaginally in AM and 200mg vaginally in PM Problem List As Of Date 04/24/2025 Noted Resolved ACNE NEC [L70.8] 04/12/2006 VITILIGO [L80] 04/12/2006 GANGLION JOINT (Right volar wrist) [M67.40] 09/17/2006 ASCUS with positive high risk HPV [[id number]] 09/04/2012 08/28/2016 Dysmenorrhea [N94.6] 12/03/2012 Breakthrough bleeding on control pills [N*12/27/2012 07/12/2015 Malignant neoplasm of upper-outer quadrant of l*10/21/2021 At risk for lymphedema [Z91.89] 10/21/2021 HER2-positive carcinoma of left breast (HCC) [C*10/25/2021 Functional diarrhea [K59.1] 02/16/2022 Crohn disease (HCC) [K50.90] 03/24/2022 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 chemotherapy [D64.*03/24/2022 Thrombocytopenia (HCC) [D69.6] 03/24/2022 Anal fissure [K60.2] 03/24/2022 Acute pain of left shoulder [M25.512] 06/19/2022 Iron 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 *02/13/2023 Iron malabsorption [K90.9] 02/13/2023 History of breast cancer [Z85.3] 09/15/2024 Breast cancer screening, high risk patient [Z12*09/15/2024 Encounter Status:Closed by EMI WEINBERG on 04/24/25 Normal [facility] CNOV Office Visit (IVFBE) STEPHEN SELF ([id number]) 1990 F CHT Date Time Provider Department 04/24/25 1:45 PM VANE BLACKMON IVFBE During your visit today, we recorded the following information about you: Rachel Rodriges RN 04/24/2025 1:49 PM Signed POST EMBRYO TRANSFER INSTRUCTIONS You will need to have your blood drawn for Quantitative HCG on 05/08/25 at [place]. You can expect to be called the afternoon of your blood draw with your test results. If for any reason that date or location is changed, please call [phone] to inform us. Continue your current medications as instructed UNTIL YOU ARE 10 WEEKS or until a BLOOD test is confirmed negative. It is not uncommon to have breast tenderness, bloating, vaginal spotting ranging from pink to red to brown and generally feeling premenstrual while waiting to test. You can feel this way and still be - DO NOT STOP YOUR MEDICATIONS until testing is completed. Call the office if you develop: - Pain, redness and heat at your injection sites From the day of your transfer on, please treat yourself as if you are . Things to avoid: - Hot tubs/raising your core temperature - Chemical exposures - Drugs/medications that are not safe in - Processed lunch meat, unpasteurized cheeses - Smoking - Fish that are high in mercury Our recommendations on maintaining a healthy lifestyle during this time include: - Regular physical activity. Bed-rest is NOT recommended and will not increase your chance of - Daily vitamin or folic acid - Healthy diet - Adequate sleep - Sexual intimacy/intercourse/or gasm will not interfere with implantation. It is difficult to maintain the balance between optimism and realism. Remember you have done and are doing all that you can to improve your odds. Set reasonable expectations for yourselves. Keeping yourself busy and mentally distracted will help the time pass while waiting to test. If you have any questions, please call [phone]. Vane Blackmon MD 04/24/2025 2:29 PM Signed [facility] TRANSFER PROCEDURE NOTE Date: 04/24/2025 Primary Proceduralist: Dr. Walker Churn Driller Helper(s): Helene Stephens MD Informed Consent: Consents and Labels Consent Signed: Informed Consent obtained and on the chart Labels Verified With Patient: Yes Indications: Stephen L Gregan, is a 35 year old female here today for Embryo Transfer. [place] Protocol: UNIVERSAL PROTOCOL / SAFETY CHECKLIST Procedure to be Performed: Frozen Embryo Transfer Sign In: A Moment of CARE was completed. Appropriate PPE (Personal Protective Equipment) worn by all providers involved with the procedure. Special equipment not required. Patient/Surrogate Stated/Verified: Patient name, Date of , Relevant allergies, and The intended procedure Time Out: Relevant labs, photos, and/or imaging studies have been reviewed. Intended patient and procedure match the source document(s) (e.g. consent, HANDP, associated studies [imaging, pathology]) match the intended patient and procedure. Consent obtained and matches the intended procedure. Yes. Correct side/site has been marked and visible. Medications required for this procedure are verified. Fire risk assessed and is not applicable. Implants: are not applicable. Sign Out: Specimens not collected. All instruments, equipment, possible retained foreign bodies are accounted for. Yes. The post-procedure plan of care has been communicated to the patient or surrogate TRANSFER Transfer Date: 04/24/25 Transfer Procedure: Embryo Transfer Transfer Physician: Vane Blackmon M.D. Pre-Procedure Diagnosis: Infertility Post-Procedure Diagnosis: Infertility Source of embryos: Patient Total Thawed: 1 # of Embryos Transferred: 1 ASRM Guidelines: Recommended limits adhered to Catheter Type: Solis Ease of Transfer: Easy Direction: AV Depth (cm): 7 Distance from fundus (mm): 14 Tissue Status: For Autologous Use Only/ Not Evaluated for Infectious Substances Cell Stage: Grade: PGT?: Specimens: None I/primary surgeon/proceduralist performed the procedure with assistance. SIGNATURE: Helene Stephens MD PATIENT NAME: Stephen Self DATE: April 24, 2025 TIME: 2:22 PM I/primary surgeon/proceduralist performed the entire procedure. Evelyn Walker MD Referring Provider: JAM FOLEY [[id number]] Allergies As of Date: 04/24/2025 (No Known Allergies) Date Reviewed: 04/24/2025 Reviewed by: Rachel Rodriges RN - Fully Assessed Primary Visit Diagnosis: examination or test, unconfirmed [Z32.00] Other Visit Diagnosis:Encounter for assisted reproductive fertility procedure cycle [Z31.83] Order(s):HCG QUANTITATIVE [SQHCGQT] Order #: [id number] FUTURE Prescri (more content not included)... Normal [facility] Estradiol SerPl-mCncon 04-17 E2 [Mass/Vol] 132 pg/mL Normal [facility] Comment on above: Order Comment: Speci men Type: BLOOD SPECIMENOrdering Facility: Address: [address] [place] [address] Result Comment: This test is not suitable for patients receiving treatment with the drug Fulvestrant (Faslodex). The drug causes an interference leading to falsely elevated estradiol results. Menstrual cycle Estradiol reference ranges: Follicular : < 234 pg/mL Ovulation : 41 to 398 pg/mL Luteal : < 342 pg/mL Estradiol reference ranges vary by gestational period: First trimester : 154 to 3243 pg/mL Second trimester : 1561 to 06044 pg/mL Third trimester : 8285 to >08724 pg/mL Post-menopausal Estradiol reference range: < 41 pg/mL Reference: 1. Estradiol - E2 (Estradiol III) [package insert V 3.0 Austrian]. [facility], [place], [place], December 2015. Performed By: #### 2 839-9, 2243-4, 92649-1 ####[facility] LABCLIA [id number] [place] [id number] [place] LH SerPl-aCncon 04-17-2025 Lutropin Qn 4.2 m[IU]/mL Normal See comment [facility] Comment on above: Order Comment: Speci men Type: BLOOD SPECIMENOrdering Facility: Address: [address] [place] [address] Result Comment: Refe rence range: Follicular: 2.4-12.6 mIU/mL Midcycle: 14.0-95.6 mIU/mL Luteal: 1.0-11.4 mIU/mL Post Darfur: 7.7-58.5 mIU/mL Performed By: #### 2 839-9, 2243-4, 67239-5 ####[facility] LABCLIA [id number] [place] [id number] [place] Progest SerPl-mCncon 025 Progesterone [Mass/Vol] 0.4 ng/mL Normal See comment [facility] Comment on above: Order Comment: Speci men Type: BLOOD SPECIMENOrdering Facility: Address: [address] [place], [place] [address] [place] [address] Result Comment: Mens trual Cycle Progesterone Reference Ranges: Follicular: <1.0 ng/mL Ovulation: <12.1 ng/mL Luteal: 1.8 to 23.9 ng/mL. Progesterone Reference Ranges vary by gestational period: First Trimester: 11.0 to 44.3 ng/mL Second Trimester: >25.3 ng/mL Third Trimester: >58.6 ng/mL Post menopausal Progesterone: <0.5 ng/mL Reference: 1. Progesterone (Progesterone III) [package insert V 1.0 Austrian]. [facility], [place], [place]. April 2015. Performed By: #### 2 839-9, 2243-4, 47709-5 ####[facility] LABCLIA [id number] [address] [place] Estradiol SerPl-mCncon 04-10 E2 [Mass/Vol] 44 pg/mL Normal [facility] Comment on above: Order Comment: Speci men Type: BLOOD SPECIMENOrdering Facility: Address: [facility] [place] [address] Result Comment: This test is not suitable for patients receiving treatment with the drug Fulvestrant (Faslodex). The drug causes an interference leading to falsely elevated estradiol results. Menstrual cycle Estradiol reference ranges: Follicular : < 234 pg/mL Ovulation : 41 to 398 pg/mL Luteal : < 342 pg/mL Estradiol reference ranges vary by gestational period: First trimester : 154 to 3243 pg/mL Second trimester : 1561 to 10610 pg/mL Third trimester : 8285 to >07983 pg/mL Post-menopausal Estradiol reference range: < 41 pg/mL Reference: 1. Estradiol - E2 (Estradiol III) [package insert V 3.0 Austrian]. [facility], [place], [place], December 2015. Performed By: #### 1 0501-5, 2839-9, 2243-4 ####[facility] LABCLIA [id number] [place] [id number] [facility] [place] LH SerPl-aCncon 04-10-2025 Lutropin Qn 7.1 m[IU]/mL Normal See comment [facility] Comment on above: Order Comment: Speci men Type: BLOOD SPECIMENOrdering Facility: Address: [address] [place] [address] Result Comment: Refe rence range: Follicular: 2.4-12.6 mIU/mL Midcycle: 14.0-95.6 mIU/mL Luteal: 1.0-11.4 mIU/mL Post Darfur: 7.7-58.5 mIU/mL Performed By: #### 1 0501-5, 28399, 2242-10 ####[facility] LABIA [id number] [address] Progest SerPl-mCncon 025 Progesterone [Mass/Vol] 0.6 ng/mL Normal See comment [facility] Comment on above: Order Comment: Speci men Type: BLOOD SPECIMENOrdering Facility: Address: [address] [place] [address] Result Comment: Mens trual Cycle Progesterone Reference Ranges: Follicular: <1.0 ng/mL Ovulation: <12.1 ng/mL Luteal: 1.8 to 23.9 ng/mL. Progesterone Reference Ranges vary by gestational period: First Trimester: 11.0 to 44.3 ng/mL Second Trimester: >25.3 ng/mL Third Trimester: >58.6 ng/mL Post menopausal Progesterone: <0.5 ng/mL Reference: 1. Progesterone (Progesterone III) [package insert V 1.0 Austrian]. [facility], [place], [place]. April 2015. Performed By: #### 1 0501-5, 8416-9, 2242- ####[facility] LABCLIA [id number] [place] [id number] [facility] CNPeJssica 04-08-2025 CNPN Telephone (REIBD) STEPHEN SELF ([id number]) 1990 F T Date Time Provider Department 04/08/25 JAM FOLEY During your visit today, we recorded the following information about you: Misael Lima 04/08/2025 2:40 PM Addendum Patient verified by name and date of : Yes Reason for Call: Nursing Provider: Dr. Foley Type of Cycle: FET - Natural or Estrace start? Natural Is patient on OCP? No First day of menstrual cycle: 04/08/2025 Patient financially cleared: Yes Patient advised message has been forwarded to the nursing team and to please allow up to 3 business days for a response. Misael Lima April 08, 2025 2:40 PM Mervat Perkins RN 04/09/2025 11:38 AM Addendum Lmp 04/08 Baseline for FET 04/10 at 730 BW. Mervat Perkins RN April 09, 2025 10:52 AM PA initiated for Pregnyl. Case # [id number] Mervat Perkins RN April 09, 2025 11:38 AM Allergies As of Date: 04/08/2025 (No Known Allergies) Date Reviewed: 03/18/2025 Reviewed by: Mari Dubon, SHRUTHI - Fully Assessed Reason for Visit: FET Cycle - Period Started [Other] Prescriptions as of 04/09/2025 - letrozole (FEMARA) 2.5 mg tablet Take 2 tablets by mouth once daily. - chorionic gonadotropin (PREGNYL) 10,000 unit solr Inject 10,000 units once for HCG Trigger. Mix vials as directed per nursing in office. Administer subcutaneous. - Needle, Disp, 27 G (BD DISPOSABLE NEEDLES) 27 gauge x 1/2 ndle To be used to inject HCG trigger - Syringe with Needle, Disp, (BD LUER-SANTI SYRINGE) To be used to draw up HCG trigger - progesterone micronized (PROMETRIUM) 200 mg capsule Insert 200mg vaginally in AM and 200mg vaginally in PM Problem List As Of Date 04/08/2025 Noted Resolved ACNE NEC [L70.8] 04/12/2006 VITILIGO [L80] 04/12/2006 GANGLION JOINT (Right volar wrist) [M67.40] 09/17/2006 ASCUS with positive high risk HPV [[id number]] 09/04/2012 08/28/2016 Dysmenorrhea [N94.6] 12/03/2012 Breakthrough bleeding on control pills [N*12/27/2012 07/12/2015 Malignant neoplasm of upper-outer quadrant of l*10/21/2021 At risk for lymphedema [Z91.89] 10/21/2021 HER2-positive carcinoma of left breast (HCC) [C*10/25/2021 Functional diarrhea [K59.1] 02/16/2022 Crohn disease (HCC) [K50.90] 03/24/2022 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 chemotherapy [D64.*03/24/2022 Thrombocytopenia (HCC) [D69.6] 03/24/2022 Anal fissure [K60.2] 03/24/2022 Acute pain of left shoulder [M25.512] 06/19/2022 Iron 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 *02/13/2023 Iron malabsorption [K90.9] 02/13/2023 History of breast cancer [Z85.3] 09/15/2024 Breast cancer screening, high risk patient [Z12*09/15/2024 Encounter Status:Closed by MERVAT PERKINS on 04/09/25 Rebekah [facility] Stacey 03-18-2025 CNOV Office Visit (IVFBE) STEPHEN SELF ([id number]) 1990 F CHT Date Time Provider Department 03/18/25 11:15 AM ACE RAYMOND IVFBE During your visit today, we recorded the following information about you: Pulse Respiration Blood pressure Weight 68/minute 17/minute 134/62 69 kg Height Last Period 1.727 m 03/08/25 Ace Raymond MD 03/18/2025 11:49 AM Signed Stephen Self presents for hysteroscopy. Indication: Infertility. Age: [age] year old LMP: Patient's last menstrual period was 03/08/2025 (exact date). Contraception: none test: negative VS: BP 124/71 Pulse 86 Resp 17 Ht 5' 8 (1.73m) Wt 152 lb 1.9 oz (69.0kg) SpO2 98% LMP 03/08/2025 BMI 23.13 kg/(m2). UNIVERSAL PROTOCOL / SAFETY CHECKLIST Procedure to be Performed: hysteroscopy Sign In: A Moment of CARE was completed. Appropriate PPE (Personal Protective Equipment) worn by all providers involved with the procedure. Special equipment not required. Patient/Surrogate Stated/Verified: Patient name, Date of , Relevant allergies, and The intended procedure Time Out: Relevant labs, photos, and/or imaging studies have been reviewed. Intended patient and procedure match the source document(s) (e.g. consent, HANDP, associated studies [imaging, pathology]) Consent obtained and matches the intended procedure. Correct side/site is not applicable. Medications required for this procedure are verified. are not applicable. Fire risk assessed and is not applicable. Implants: are not applicable. Sign Out: Specimens not collected. All instruments, equipment, possible retained foreign bodies are accounted for. Yes. The post-procedure plan of care has been communicated to the patient or surrogate. PROCEDURE: The cervix was prepped with betadine. The rigid hysteroscope was inserted vaginoscopically using saline for distention. The procedure was performed without difficulty and the patient tolerated it well. FINDINGS: uterus: normal cavity, tubal ostia seen bilaterally. There was a thickened mucosal fold at the posterior lower uterine segment. ASSESMENT: normal cavity PLAN: proceed with treatment plan MD Eliot Vazquez Katherine, MD 03/18/2025 12:11 PM Addendum HYSTEROSCOPY PROCEDURE (W NOTE) Date/Time: 03/18/2025 11:46 AM Performed by: Janina Bearden MD Authorized by: Ace Raymond MD Informed Consent Consent Obtained: Written [place] Protocol A moment to CARE was completed. SIGN IN Sign in communication not applicable due to emergent procedure. Personnel directly involved with the procedure wore the appropriate PPE. Special Equipment: N/A Patient/Surrogate Stated/Verified: Patient name, Date of , Relevant allergies and Intended procedure TIME OUT Relevant labs, photos, and/or imaging studies have been reviewed. Intended patient and procedure match source documents. Consent obtained and matches the intended procedure. Correct side/site marked and visible. No medications required for procedure. Fire risk assessed and interventions discussed. No implant(s) inserted. Indications: infertility Pre-Procedure Details: Urine Test: Negative Pre-medication given: none Procedure Details: Type of Hysteroscopy: diagnostic hysteroscopy Cervix was cleansed with chlorhexidine. A paracervical block was performed: no Tenaculum used: no Cervix was dilated: no Distension Media Type: saline Endocervical curettage: no Hysteroscope Type: rigid Endometrial Lining: normal Findings: intrauterine lesions Describe details of the findings (including size, number, and location): Small portion of the lower uterine segment mucosa folded over, no concern for polyps or fibroids Uterine Cavity: normal uterine cavity and tubal ostia visualized bilaterally Directed biopsies: no Polyp(s) extracted: no Foreign body removed: no Images captured: no Procedure complications: no Post-Procedure Details: Patient tolerance: Patient tolerated procedure but experienced pain Post-procedure complications: no Follow-Up: Patient will follow-up in office for results SIGN OUT No specimen collected. All instruments, equipment, possible retained foreign bodies accounted for. The post-procedure POC has been communicated to the patient or surrogate. Janina Bearden MD Referring Provider: JAM FOLEY [[id number]] Allergies As of Date: 03/18/2025 (No Known Allergies) Date Reviewed: 03/18/2025 Reviewed by: Mari Dubon RN - Fully Assessed Reason for Visit: Hysteroscopy-1 [309] Primary Visit Diagnosis:Pre-operative laboratory examination [Z01.812] Other Visit Diagnosis:Fertility testing [Z31.41] Order(s):OFFICE HYSTEROSCOPY [[id number]] Order #: [id number] HCG QUAL UR B/O [[id number]] Order #: [id number] HYSTEROSCOPY (more content not included)... Normal [facility] HCG QUAL UR B/Oon 03-18-2025 status Negative neg - pos [facility] Quality Check Yes yes/no [facility] HYSTEROSCOPY PROCEDURE (W NO TE)on 03-18-2025 [facility] CBC W Auto Differential pane l (Bld)on 02-26-2025 Basophils (Bld) [#/Vol] 0.05 10*3/uL Normal <0.11 [facility] Comment on above: Order Comment: Speci men Type: BLOOD SPECIMENOrdering Facility: Address: [address] [place] [address] Performed By: #### 5 7021-8 ####[facility] [id number] [place] [address] [place] Basophils/100 WBC (Bld) 0.8 % Normal [facility] Comment on above: Order Comment: Speci men Type: BLOOD SPECIMENOrdering Facility: Address: [address] [place] [address] Performed By: #### 5 7021-8 ####[facility] [id number] [place] [address] [place] Differential cell count method Nom (Bld) Auto Normal [facility] Comment on above: Order Comment: Speci men Type: BLOOD SPECIMENOrdering Facility: Address: [address] [place] [address] Performed By: #### 5 7021-8 ####[facility] MILLWNCLIA [id number] [place] [address] [place] Eosinophils (Bld) [#/Vol] 0.08 10*3/uL Normal <0.46 [facility] Comment on above: Order Comment: Speci men Type: BLOOD SPECIMENOrdering Facility: Address: [address] [place] [address] Performed By: #### 5 7021-8 ####[facility]ITALTEREA [id number] [place] [address] [place] Eosinophils/100 WBC (Bld) 1.3 % Normal [facility] Comment on above: Order Comment: Speci men Type: BLOOD SPECIMENOrdering Facility: Address: [address] [place] [address] Performed By: #### 5 7021-8 ####[facility]ICMC [id number] [place] [address] [place] Erythrocyte distribution width (RBC) [Ratio] 13.2 % Normal 11.5-15.0 [facility] Comment on above: Order Comment: Speci men Type: BLOOD SPECIMENOrdering Facility: Address: [address] [place] [address] Performed By: #### 5 7021-8 ####[facility] CLINICNCRUDOLPH [id number] [place] [address] [place] Hematocrit (Bld) [Volume fraction] 40.8 % Normal 36.0-46.0 [facility] Comment on above: Order Comment: Speci men Type: BLOOD SPECIMENOrdering Facility: Address: [address] [place] [address] Performed By: #### 5 7021-8 ####[facility]ICNCLIA [id number] [place] [address] [place] Hemoglobin (Bld) [Mass/Vol] 13.7 g/dL Normal 11.5-15.5 [facility] Comment on above: Order Comment: Speci men Type: BLOOD SPECIMENOrdering Facility: Address: [address] [place] [address] Performed By: #### 5 7021-8 ####[facility]ICNCLIA [id number] [place] [address] [place] Immature granulocytes (Bld) [#/Vol] 10*3/uL Normal <0.10 [facility] Comment on above: Order Comment: Speci men Type: BLOOD SPECIMENOrdering Facility: Address: [address] [place] [address] Performed By: #### 5 7021-8 ####[facility] [id number] [place] [address] [place] Immature granulocytes/100 WBC (Bld) 0.2 % Normal [facility] Comment on above: Order Comment: Speci men Type: BLOOD SPECIMENOrdering Facility: Address: [address] [place] [address] Performed By: #### 5 7021-8 ####[facility] [id number] [place] [address] [place] Lymphocytes (Bld) [#/Vol] 1.69 10*3/uL Normal 1.00-4.00 [facility] Comment on above: Order Comment: Speci men Type: BLOOD SPECIMENOrdering Facility: Address: [address] [place] [address] Performed By: #### 5 7021-8 ####[facility] [id number] [place] [address] [place] Lymphocytes/100 WBC (Bld) 27.1 % Normal [facility] Comment on above: Order Comment: Speci men Type: BLOOD SPECIMENOrdering Facility: Address: [address] [place] [address] Performed By: #### 5 7021-8 ####[facility] [id number] [place] [address] [place] MCH (RBC) [Entitic mass] 29.7 pg Normal 26.0-34.0 [facility] Comment on above: Order Comment: Speci men Type: BLOOD SPECIMENOrdering Facility: Address: [address] [place] [address] Performed By: #### 5 7021-8 ####[facility] CHELANCSHARAA [id number] [place] [address] [place] MCHC (RBC) [Mass/Vol] 33.6 g/dL Normal 30.5-36.0 [facility] Comment on above: Order Comment: Speci men Type: BLOOD SPECIMENOrdering Facility: Address: [address] [place] [address] Performed By: #### 5 7021-8 ####[facility] CL[facility]ICNCLIA [id number] [place] [address] [place] MCV (RBC) [Entitic vol] 88.5 fL Normal 80.0-100.0 [facility] Comment on above: Order Comment: Speci men Type: BLOOD SPECIMENOrdering Facility: Address: [address] [place] [address] Performed By: #### 5 7021-8 ####[facility] CL[facility]ICNCLIA [id number] [place] [address] [place] Monocytes (Bld) [#/Vol] 0.60 10*3/uL Normal <0.87 [facility] Comment on above: Order Comment: Speci men Type: BLOOD SPECIMENOrdering Facility: Address: [address] [place] [address] Performed By: #### 5 7021-8 ####[facility]ITALWNCLIA [id number] [place] [address] [place] Monocytes/100 WBC (Bld) 9.6 % Normal [facility] Comment on above: Order Comment: Speci men Type: BLOOD SPECIMENOrdering Facility: Address: [address] [place] [address] Performed By: #### 5 7021-8 ####[facility] CLINICNCA [id number] [place] [address] [place] Neutrophils (Bld) [#/Vol] 3.81 10*3/uL Normal 1.45-7.50 [facility] Comment on above: Order Comment: Speci men Type: BLOOD SPECIMENOrdering Facility: Address: [address] [place] [address] Performed By: #### 5 7021-8 ####[facility] [id number] [place] [address] [place] Neutrophils/100 WBC (Bld) 61.0 % Normal [facility] Comment on above: Order Comment: Speci men Type: BLOOD SPECIMENOrdering Facility: Address: [address] [place] [address] Performed By: #### 5 7021-8 ####[facility] [id number] [place] [address] [place] Nucleated RBC (Bld) [#/Vol] 10*3/uL Normal <0.01 [facility] Comment on above: Order Comment: Speci men Type: BLOOD SPECIMENOrdering Facility: Address: [address] [place] [address] Performed By: #### 5 7021-8 ####[facility] [id number] [place] [address] [place] Nucleated RBC/100 WBC (Bld) [Ratio] 0.0 /100 WBC Normal [facility] Comment on above: Order Comment: Speci men Type: BLOOD SPECIMENOrdering Facility: Address: [address] [place] [address] Performed By: #### 5 7021-8 ####[facility] [id number] [place] [address] [place] Platelet mean volume (Bld) [Entitic vol] 12.1 fL Normal 9.0-12.7 [facility] Comment on above: Order Comment: Speci men Type: BLOOD SPECIMENOrdering Facility: Address: [address] [place] [address] Performed By: #### 5 7021-8 ####[facility] CLINICNCDionne [id number] [place] [address] [place] Platelets (Bld) [#/Vol] 115 10*3/uL Low 150-400 [facility] Comment on above: Order Comment: Speci men Type: BLOOD SPECIMENOrdering Facility: Address: [address] [place] [address] Result Comment: No c lot detected. Performed By: #### 5 7021-8 ####[facility] RES[facility]ARCH INSTITUTEDionne [id number] [place] [address] [place] RBC (Bld) [#/Vol] 4.61 10*6/uL Normal 3.90-5.20 [facility] Comment on above: Order Comment: Speci men Type: BLOOD SPECIMENOrdering Facility: Address: [address] [place] [address] Performed By: #### 5 7021-8 ####[facility] INSTITUTEDionne [id number] [place] [address] [place] WBC (Bld) [#/Vol] 6.24 10*3/uL Normal 3.70-11.00 [facility] Comment on above: Order Comment: Speci men Type: BLOOD SPECIMENOrdering Facility: Address: [address] [place] [address] Performed By: #### 5 7021-8 ####[facility] CLINICNCLI [id number] [place] [address] [place] Comprehensive metabolic 2000 panelon 02-26-2025 Albumin [Mass/Vol] 4.6 g/dL Normal 3.9-4.9 [facility] Comment on above: Order Comment: Speci men Type: BLOOD SPECIMENOrdering Facility: Address: [address] [place] [address] Performed By: #### 2 4323-8 ####[facility] JESUWNCLIA [id number] [place] [address] [place] ALP [Catalytic activity/Vol] 152 U/L High 34-123 [facility] Comment on above: Order Comment: Speci men Type: BLOOD SPECIMENOrdering Facility: Address: [address] [place] [address] Performed By: #### 2 4323-8 ####[facility]ITALWNCLIA [id number] [place] [address] [place] ALT [Catalytic activity/Vol] 13 U/L Normal 7-38 [facility] Comment on above: Order Comment: Speci men Type: BLOOD SPECIMENOrdering Facility: Address: [address] [place] [address] Performed By: #### 2 4323-8 ####[facility] CLINICNCLIA [id number] [place] [address] [place] Anion gap [Moles/Vol] 12 mmol/L Normal 8-15 [facility] Comment on above: Order Comment: Speci men Type: BLOOD SPECIMENOrdering Facility: Address: [address] [place] [address] Performed By: #### 2 4323-8 ####[facility] MILLTOWNCLIA [id number] [place] [address] [place] AST [Catalytic activity/Vol] 21 U/L Normal 13-35 [facility] Comment on above: Order Comment: Speci men Type: BLOOD SPECIMENOrdering Facility: Address: [address] [place] [address] Performed By: #### 2 4323-8 ####[facility] MILLTOWNCLIA [id number] [place] [address] [place] Bilirubin [Mass/Vol] 0.3 mg/dL Normal 0.2-1.3 [facility] Comment on above: Order Comment: Speci men Type: BLOOD SPECIMENOrdering Facility: Address: [address] [place] [address] Performed By: #### 2 4323-8 ####[facility] MILLTOWNCLIA [id number] [place] [address] [place] Calcium [Mass/Vol] 9.1 mg/dL Normal 8.5-10.2 [facility] Comment on above: Order Comment: Speci men Type: BLOOD SPECIMENOrdering Facility: Address: [address] [place] [address] Performed By: #### 2 4323-8 ####[facility]ITALWNCLIA [id number] [place] [address] [place] Chloride [Moles/Vol] 102 mmol/L Normal 98-107 [facility] Comment on above: Order Comment: Speci men Type: BLOOD SPECIMENOrdering Facility: Address: [address] [place] [address] Performed By: #### 2 4323-8 ####[facility] MILLWNCLIA [id number] [place] [address] [place] CO2 [Moles/Vol] 25 mmol/L Normal 22-30 [facility] Comment on above: Order Comment: Speci men Type: BLOOD SPECIMENOrdering Facility: Address: [address] [place] [address] Performed By: #### 2 4323-8 ####[facility]ITALWNCLIA [id number] [place] [address] [place] Creatinine [Mass/Vol] 0.63 mg/dL Normal 0.58-0.96 [facility] Comment on above: Order Comment: Iain may Type: BLOOD SPECIMENOrdering Facility: Address: [address] [place] [address] Performed By: #### 2 4323-8 ####[facility] [id number] [place] [address] [place] eGFRcr SerPlBld CKD-EPI 2020 120 mL/min/1.73m??? Normal >=60 [facility] Comment on above: Order Comment: Iain may Type: BLOOD SPECIMENOrdering Facility: Address: [address] [place] [address] Result Comment: Qing mated Glomerular Filtration Rate (eGFR) is calculated using the 2020 CKD-EPI creatinine equation. This equation utilizes serum creatinine, sex, and age as parameters. The creatinine assay has traceable calibration to isotope dilution-mass spectrometry. Refer to KDIGO guidelines for clinical interpretation. In patients with unstable renal function, e.g. those with acute kidney injury, the eGFR may not accurately reflect actual GFR. Performed By: #### 2 4323-8 ####[facility] [id number] [place] [address] [place] Glucose [Mass/Vol] 94 mg/dL Normal 74-99 [facility] Comment on above: Order Comment: Iain may Type: BLOOD SPECIMENOrdering Facility: Address: [address] [place] [address] Result Comment: The [place] Diabetes Association (ADA) provides guidance for cutoff values for fasting glucose and random glucose. The ADA defines fasting as no caloric intake for at least 8 hours. Fasting plasma glucose results between 100 to 125 mg/dL indicate increased risk for diabetes (prediabetes). Fasting plasma glucose results greater than or equal to 126 mg/dL meet the criteria for diagnosis of diabetes. In the absence of unequivocal hyperglycemia, results should be confirmed by repeat testing. In a patient with classic symptoms of hyperglycemia or hyperglycemic crisis, random plasma glucose results greater than or equal to 200 mg/dL meet the criteria for diagnosis of diabetes. Reference: Standards of Medical Care in Diabetes 2016, [place] [employer] Association. Diabetes Care. 2016.39(Suppl 1). Performed By: #### 2 4323-8 ####[facility] JESUCHANELLLIA [id number] [place] [address] [place] Potassium [Moles/Vol] 3.7 mmol/L Normal 3.7-5.1 [facility] Comment on above: Order Comment: Speci men Type: BLOOD SPECIMENOrdering Facility: Address: [address] [place] [address] Performed By: #### 2 4323-8 ####[facility] HOSPITALAKILAH [id number] [place] [address] [place] Protein [Mass/Vol] 7.6 g/dL Normal 6.3-8.0 [facility] Comment on above: Order Comment: Speci men Type: BLOOD SPECIMENOrdering Facility: Address: [address] [place] [address] Performed By: #### 2 4323-8 ####[facility] HOSPITALDUSTYLIA [id number] [place] [address] [place] Sodium [Moles/Vol] 139 mmol/L Normal 136-144 [facility] Comment on above: Order Comment: Speci men Type: BLOOD SPECIMENOrdering Facility: Address: [address] [place] [address] Performed By: #### 2 4323-8 ####[facility] HOSPITALCHANELLLIA [id number] [place] [id number] [place] Urea nitrogen [Mass/Vol] 10 mg/dL Normal 7-21 [facility] Comment on above: Order Comment: Speci men Type: BLOOD SPECIMENOrdering Facility: Address: [address] [place] [address] Performed By: #### 2 4323-8 ####[facility] CLINICXIOMARALIA [id number] [place] [address] [place] US Uterus and Fallopian tube s W saline IUon 01-14-2025 Indication SIS, Fertility testing Impression Possible lower uterine segment polyp. Recommendations consider office hysteroscopy if clinically indicated. Menstrual History LMP on 01/04/2025 Method Saline Infusion Sonohysterogram, Transvaginal, 3D ultrasound examination, Color Doppler examination Uterus Uterus: Visualized Uterus position: anteverted Myometrium: normal Endometrium: endometrial midline: linear Cervix details: normal Uterus length 57 mm Uterus width 42 mm Uterus height 29 mm Uterus Vol 36.1 cm Endometrial thickness single layer 2.3 mm Endom. th. single layer 1.9 mm Side: anterior Side: posterior Endometrial thickness, total 4.2 mm Polyps: Polyps identified Uterine polyp D1 7 mm Uterine polyp D2 3 mm Uterine polyp D3 6 mm Uterine polyp mean 5.3 mm Uterine polyp findings: Posterior MARY Right Ovary Rt ovary: Visualized Rt ovary morphology: premenopausal normal follicular Rt ovary D1 16 mm Rt ovary D2 13 mm Rt ovary D3 13 mm Rt ovary Vol 1.4 cm Rt ovarian follicle(s): Follicles identified Rt ovarian follicle D1 11.6 mm Rt ovarian follicle D2 9.3 mm Rt ovarian follicle mean 10.5 mm Rt ovarian follicle vol 0.531 cm Left Ovary Lt ovary: Visualized Lt ovary morphology: premenopausal normal follicular Cul de Sac Visualized. free fluid visualized Largest pool 28.5 mm x 7.2 mm x 22.0 mm. Vol 2.364 ml Procedure Saline infused ultrasound was performed and shows evidence of intrauterine pathology. An endometrial polyp was seen originating from the posterior MARY measuring 7 x 3 x 6 mm. The anterior single layer endometrial thickness measured 2.3 mm and the posterior single layer endometrial thickness measured 1.9 mm. Performed By: Renea Ty RDMS Read By: Jam Foley M.D. MATERNAL MEDICINE [facility] CNOVon 01-13-2025 CNOV Office Visit (REIBD) STEPHEN SELF ([id number]) 1990 F CHT Date Time Provider Department 01/13/25 1:45 PM [employer] 3 [facility] BEAC REIBD During your visit today, we recorded the following information about you: Pulse Blood pressure Weight Height 76/minute 118/82 69.4 kg 1.727 m Last Period 01/04/25 Camille Luo APRN.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 01/15/2025 11:13 AM Signed Stephenphyllis Self is a 34 year old here for SIS. Referred by: Jam Foley [id number] [facility] [address] Chief Complaint: Fertility testing Endometrial Biopsy: No Ultrasound: No Hormonal therapy: No. LMP: Patient's last menstrual period was 01/04/2025 (exact date). Cycles: PERIOD REGULARITY: regular q 28-30 days Contraception: none HCG: negative UNIVERSAL PROTOCOL / SAFETY CHECKLIST Procedure to be Performed: SIS Sign In: A Moment of CARE was completed. Appropriate PPE (Personal Protective Equipment) worn by all providers involved with the procedure. Special equipment utilized . Patient/Surrogate Stated/Verified: Patient name, Date of , Relevant allergies, and The intended procedure Time Out: Relevant labs, photos, and/or imaging studies have been reviewed. Intended patient and procedure match the source document(s) (e.g. consent, HANDP, associated studies [imaging, pathology]) match the intended patient and procedure. Consent obtained and matches the intended procedure. Yes. Correct side/site is not applicable. Medications required for this procedure are not applicable. Fire risk assessed and is not applicable. Implants: are not applicable. Sign Out: Specimens not collected. All instruments, equipment, possible retained foreign bodies are accounted for. Yes. The post-procedure plan of care has been communicated to the patient or surrogate. PROCEDURE: EXTERNAL GENITALIA: Normal in appearance without lesions VAGINA: Normal in appearance without lesions Speculum placed into the vagina with excellent visualization of the cervix. Cervix cleaned with hibiclens. SIS catheter inserted into the uterus without difficulty. Speculum removed and 20mL sterile saline injected into the uterine cavity under ultrasound guidance. Procedure Summary: Patient tolerated procedure well. See ViewPoint for procedure results. Camille Luo APRN.CNP Referring Provider: JAM FOLEY [[id number]] Allergies As of Date: 01/13/2025 (No Known Allergies) Date Reviewed: 01/13/2025 Reviewed by: Stephen Davenport LPN - Fully Assessed Reason for Visit: Fertility Testing [Other] Primary Visit Diagnosis:Encounter for fertility testing [Z31.41] Other Visit Diagnosis:Pre-procedura l laboratory examination [Z01.812] Order(s):SONOHYSTEROGRA PHY (SIS) [facility] [[id number]] Order #: [id number]. #:[id number] WPOINTQty: 1 HCG QUAL UR B/O [[id number]] Order #: [id number] Problem List As Of Date 01/13/2025 Noted Resolved ACNE NEC [L70.8] 04/12/2006 VITILIGO [L80] 04/12/2006 GANGLION JOINT (Right volar wrist) [M67.40] 09/17/2006 ASCUS with positive high risk HPV [HFN2147] 09/04/2012 08/28/2016 Dysmenorrhea [N94.6] 12/03/2012 Breakthrough bleeding on control pills [N*12/27/2012 07/12/2015 Malignant neoplasm of upper-outer quadrant of l*10/21/2021 At risk for lymphedema [Z91.89] 10/21/2021 HER2-positive carcinoma of left breast (HCC) [C*10/25/2021 Functional diarrhea [K59.1] 02/16/2022 Crohn disease (HCC) [K50.90] 03/24/2022 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 chemotherapy [D64.*03/24/2022 Thrombocytopenia (HCC) [D69.6] 03/24/2022 Anal fissure [K60.2] 03/24/2022 Acute pain of left shoulder [M25.512] 06/19/2022 Iron 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 *02/13/2023 Iron malabsorption [K90.9] 02/13/2023 History of breast cancer [Z85.3] 09/15/2024 Breast cancer screening, high risk patient [Z12*09/15/2024 Encounter Status:Closed by JAM FOLEY on 01/14/25 Normal [facility] HCG QUAL UR B/Oon 01-13-2025 status Negative neg - pos Ac brown [facility] Quality Check Yes yes/no [facility] US Uterus and Fallopian tube s W saline IUon 01-13-2025 Radiology Study observation (narrative) [facility] CNOVon 01-05-2025 CNOV Office Visit (OBGYWM ) CLAIRSTEPHEN L ([id number]) 1990 F CHT Date Time Provider Department 01/05/25 1:30 PM CRISTOPHER ALANIZ OBGYWM During your visit today, we recorded the following information about you: Blood pressure Weight Height Last Period 10664 69.9 kg 1.753 m 01/04/25 Cristopher Alaniz APRN.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 01/05/2025 2:05 PM Signed Clinical Practice Consultant offered: Patient declines. Stephen is a 34 year old who presents for an annual gynecologic exam without complaints. Stephen has a history of breast cancer ER+/VA+/HER2-positive breast cancer and had a double mastectomy. Working with [facility] - planning embryo transfer. Daughter will be 1 next month! Age at Menarche: 17 Still get period: Yes LMP: 01/04/2025 Menses: irregular menses, ranging from 33-41 days, 5 days of flow Menstrual flow: Heavy Bleeding amount bothersome: No Bleeding between periods: No Period symptoms: Acne, Breast tenderness, Cramps, Fecal incontinence , Mood change , and Pelvic pain Sexually active: Yes Contraception: Condom HPV vaccine: Yes, 02/2007, 04/2007, 08/2007 HPV:negative Last pap smear: 12/28/2023 normal History of abnormal pap: Yes, ASCUS 2012 Colposcopy: Yes: 08/2012 benign biopsies Leep: No. Cone biopsy: No. Bothersome pelvic pain: Yes Last mammogram: 09/2021 normal, yearly breat MRI August 2024 OB History Gravida0 Para0 Term0 Preterm0 AB0 Living0 SAB0 IAB0 Ectopic0 Multiple0 Live Births0 Comment: Menarche: 17; Age at 1st : n/a; Premenopausal Manager Insurance History LMP: 01/04/2025, Having periods Age at Menarche: Age at First : Age at Menopause: Manager Insurance History Comments: Sexual Activity: Yes; Male Contraception: Condom PAST MEDICAL HISTORY Diagnosis Date Abnormal Pap smear of cervix Anal fissure Anemia with crohns Cancer (HCC) breast cancer Crohn's disease (HCC) 07/09/2013 Hypoglycemia Iron 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 dietary iron intake 02/13/2023 Iron malabsorption (HCC) 02/13/2023 Malignant neoplasm of left breast (HCC) 09/2021 PMH - PAST MEDICAL HISTORY OF 04/08/2004 Normal color vision PMH - PAST MEDICAL HISTORY OF 12/23/2001 Pneumonia PAST SURGICAL HISTORY Procedure Laterality Date COLONOSCOPY 07/09/2013 EXTRACTION ERUPTED TOOTH/EXR age 17 PAST SURGICAL HISTORY OF 07/09/2006 Cyst removal in right wrist PAST SURGICAL HISTORY OF masectomy and reconstruction TONSILLECTOMY PRIMARY/SECONDARY AGE 13/> 10/07/2008 BREAST NEEDLE CORE BIOPSY LT Left 09/2021 FAMILY HISTORY Problem Relation Age of Onset Heart Maternal Grandmother triple by pass Breast Cancer Maternal Grandmother Coronary Artery Disease Paternal Grandfather Diabetes Paternal Grandfather other (DC) Paternal Grandfather age 45 Breast Cancer Other Maternal Great Aunt x2 SOCIAL HISTORY Social History Tobacco Use Smoking status: Never Smokeless tobacco: Never Vaping Use Vaping status: Never Used Substance Use Topics Alcohol use: Not Currently Comment: Occasionally Drug use: Never REVIEW OF SYSTEMS Abdomen: No abdominal pain, nausea, vomiting, diarrhea, or constipation. No bloating, early satiety, indigestion, or increased flatulence. Bladder: No dysuria, gross hematuria, urinary frequency, urinary urgency, or incontinence. Breast: No breast lumps, nipple d/c, overlying skin changes, redness or skin retraction. Allergies and current medication updated:Yes SENSITIVE EXAM: The sensitive examination was discussed with the Patient or Patient's Authorized Broom Machine Operator. As applicable, any other physician, advance practice provider, medical student, or other health professional student that will be observing or involved in the sensitive examination for educational or training purposes was discussed with the Patient or Authorized Broom Machine Operator. The Patient or Authorized Broom Machine Operator has agreed to proceed with the sensitive examination. (Sensitive examination includes inspection and/or palpation of the breasts, pelvis, prostate and anorectal regions). EXAM: BP 106/64 Ht 5' 9 (1.75m) Wt 154 lb (69.9kg) LMP 01/04/2025 BMI 22.73 kg/(m2). GENERAL: pleasant, female in no apparent distress HEENT: Normocephalic, atraumatic, mucus membranes moist, and no lesions NECK: Supple, full range of motion, no adenopathy, and thyroid normal DERMATOLOGY: Normal, without lesions, non-icteric, and non-hirsute BREAST: soft, non-tender, symmetric, no dominant mass, normal nipple-areolar complex, no lymphadenopathy, and no nipple discharge + double mastectomy, reconstruction noted CHEST: Normal inspiratory effort ABDOMEN: soft, non-tender, and no masses PELVIC: external genitalia normal, normal Bartholin's glands, urethra, [place]'s glands, + 0.5 cm raised skin tag noted to right labia majora (no changes per patient), no cervical lesions, (more content not included)... Normal [facility] HIGH RISK HUMAN PAPILLOMA MYNOR (HPV), PCR FOR DETECTION AND GENOTYPINGon 01-05-2025 HPV 16 Ag Ql (Unsp spec) Not detected Normal Not detected [facility] Comment on above: Order Comment: Speci men Type: FLUID SPECIMENOrdering Facility: Address: [address] [place] [address] Performed By: #### H PVHRT ####[facility] LABCLIA [id number] [place] [address] [place] HPV 18 Ag Ql (Unsp spec) Not detected Normal Not detected [facility] Comment on above: Order Comment: Speci men Type: FLUID SPECIMENOrdering Facility: Address: [address] [place] [address] Performed By: #### H PVHRT ####[facility] LABCLIA [id number] [place] [address] [place] HPV 31+33+35+39+45+51+5 2+56+58+59+66+68 DNA KELTON+probe Ql (Cvx) Not detected Normal Not detected [facility] Comment on above: Order Comment: Speci men Type: FLUID SPECIMENOrdering Facility: Address: [address] [place] [address] Result Comment: High Risk HPV Other Type includes HPV types 31, 33, 35, 39, 45, 51, 52, 56, 58, 59, 66 and 68. Performed By: #### H PVHRT ####[facility] LABCLIA [id number] [place] [id number] [facility] PAP TESTon 01-05-2025 ADEQUACY Normal [facility] Comment on above: Order Comment: Speci men Type: FLUID SPECIMENOrdering Facility: Address: [address] [place] [address] Result Comment: Sati sfactory for interpretation. Excess blood Performed By: #### L [id number] ####[facility] [id number] [address] LABCLIA [id number] [place] [id number] [place] CASE REPORT Normal [facility] Comment on above: Order Comment: Speci men Type: FLUID SPECIMENOrdering Facility: Address: [address] [place] [address] Result Comment: Gyne cologic Cytology Report Case: [id number] Authorizing Provider: Cristopher Alaniz APRN.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 Collected: 01/05/2025 02:06 PM Ordering Location: OB/Gynecology Received: 01/06/2025 07:41 AM First Screen: Nereyda, Inez, CT, ASCP Pathologist: Kamar Pelayo MD Specimen: Pap Test, ThinPrep, Cervix Performed By: #### L [id number] ####[facility]ORY[facility] [id number] [address] LABCLIA [id number] [address] [facility] [place] CLINICAL HISTORY, CYTOLOGY, RESIST COATER DEVELOPER History of Malignancy (Describe) Normal [facility] Comment on above: Order Comment: Speci men Type: FLUID SPECIMENOrdering Facility: Address: [address] [place] [address] Result Comment: Anahy st Performed By: #### L [id number] ####[facility] LABORATORYCLIA [id number] [address] STATES [facility] LABCLIA [id number] [place] [address] [place] FINAL PERFORMING LAB Normal [facility] Comment on above: Order Comment: Speci men Type: FLUID SPECIMENOrdering Facility: Address: [address] [place] [address] Result Comment: Tech nical component, streetcar operator screening performed at: [facility], [address] [place] [address] CLIA: [id number] Diagnostic interpretation performed at: [facility], [address] [place] [address] CLIA# [id number] Calcine Furnace Loader: Simba Corea MD Performed By: #### L [id number] ####[facility] LABORATORYCLIA [id number] [address] LABCLIA [id number] [address] STATES [place] GROSS DESCRIPTION A. Cervix Normal [facility] Comment on above: Order Comment: Speci men Type: FLUID SPECIMENOrdering Facility: Address: [address] [place] [address] Result Comment: Glac ial Acetic Acid added. Performed By: #### L [id number] ####[facility]ORYCL[facility] [id number] [address] STATES OF [facility] LABCLIA [id number] [place] [address] [place] INTERPRETATION, CYTOLOGY, RESIST COATER DEVELOPER Abnormal [facility] Comment on above: Order Comment: Speci men Type: FLUID SPECIMENOrdering Facility: Address: [address] [place] [address] Result Comment: Atyp ical squamous cells of undetermined significance (ASC-US). at 1208 EDT Performed By: #### L [id number] ####[facility]ORYCL[facility] [id number] [address] LABCLIA [id number] [address] [address] [place] LMP 01/04/2025 Normal [facility] Comment on above: Order Comment: Speci men Type: FLUID SPECIMENOrdering Facility: Address: [address] [place] [address] Performed By: #### L [id number] ####[facility]ORYCL[facility] [id number] [address] LABCLIA [id number] [address] [place] [address] [place] PAP DISCLAIMER COMMENT The Pap Smear is a screening test for cervical cancer. False negative results occur with all screening tests, emphasizing the need for rescreening at recommended intervals, and clinical correlation. Normal [facility] Comment on above: Order Comment: Speci men Type: FLUID SPECIMENOrdering Facility: Address: [address] [place] [address] Performed By: #### L [id number] ####[facility]ATORYCLIA [id number] [place] [id number] [facility] LABCLIA [id number] [address] [place] [address] [place] PAP GENERAL CATEGORIZATION Epithelial Cell Abnormality Normal [facility] Comment on above: Order Comment: Speci men Type: FLUID SPECIMENOrdering Facility: Address: [address] [place] [address] Performed By: #### L [id number] ####[facility]ORYCL[facility] [id number] [address] LABCLIA [id number] [address] STATES [place] PAP SOW FARM BARN TECHNICIAN COMMENT This specimen has be en analyzed by the FDA-approved GetFeedback System, which uses digital imaging and an enhanced artificial intelligence image analysis algorithm to identify allen of interest on the microscopic slide, to assist the truck driver teamster and pathologist in evaluating cells on ThinPrep Pap tests. Following analysis, allen of interest on the microscopic slide selected by the algorithm are reviewed by a truck driver teamster. If a sample requires hierarchical review, the pathologist will review the same allen of interest selected by the algorithm prior to final interpretation. Normal [facility] Comment on above: Order Comment: Speci yadira Type: FLUID SPECIMENOrdering Facility: Address: [address] [place] [address] Performed By: #### L [id number] ####[facility]ORYCL[facility] [id number] [address] LABCLIA [id number] [address] [place] RUBELLA IGG ANTIBODYon 01-05 RUBELLA IGG AB, QUAL Positive Normal Positive [facility] Comment on above: Order Comment: Iain may Type: BLOOD SPECIMENOrdering Facility: Address: [address] [place] [address] Result Comment: The result suggests recent or past exposure to Rubella virus or history of Rubella vaccination. Positive result may also be seen due to presence of passively-transferred antibodies. Please correlate with patient's history. Performed By: #### R UBIGG, [id number] ####[facility] LABCLIA [id number] [address] STATES [place] VARICELLA ZOSTER IGGon 01-05 VARICELLA ZOSTER IGG, QUAL Positive Normal Positive [facility] Comment on above: Order Comment: Iain may Type: BLOOD SPECIMENOrdering Facility: Address: [address] [place] [address] Result Comment: The result suggests recent or past exposure to Varicella-Zoster virus or chickenpox vaccination or zoster vaccination. Positive result may also be seen due to presence of passively-transferred antibodies. Please correlate with patient's history. Performed By: #### R UBIGG, VZVG2 ####[facility] LABCLIA [id number] [address] STATES OF [facility] CNOVSPon 10-20-2024 CNOVSP Visit (SP) Office (HEMAWS) STEPHEN SELF ([id number]) 1990 F CHT Date Time Provider Department 10/20/24 3:50 PM CHANTAL AYERS During your visit today, we recorded the following information about you: Temperature Pulse Blood pressure Weight 98 degrees 86/minute 119/73 71.2 kg Chantal Ayers DO 10/20/2024 5:01 PM Signed Oncologic problem(s): 1) HER2 positive breast cancer. HPI: The patient is a 34-year-old female with a past medical history significant for Crohn's disease (dx 2014), vitiligo and dysmenorrhea. She self discovered a mass in the left breast. She underwent a bilateral diagnostic mammogram on 10/04/2021. The breasts were noted to be extremely dense lowering the sensitivity of the mammography. The palpable abnormality however corresponded to a 1.2 x 1.4 cm spiculated nodule in the deep lateral axillary region of the breast. Microcalcifications were identified within it. Patient underwent ultrasound of the breast on the same day. In the left breast corresponding to the palpable abnormality there was a 1.3 x 1.3 x 1.1 heterogeneous hypoechoic solid mass with microcalcifications at the 1 o'clock position of the breast 8 cm from the nipple. Increased vascularity was observed. Patient was referred to Dr. Farrar. She underwent a left core needle biopsy on 10/07/2021. 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 VA variable 10 to 50%, moderate intensity. HER-2/chaz 3+ IHC. Regular menses. OCPs starting age 17. Stopped age 30 to try to get . Stopped trying to get because had flare of Crohn's. Generalized itching all over--started last April. Triggered by heat (showever). Injured coccyx snowboarding in high school. Hurting more lately. Crohn's under control with anti-inflammatory diet. ------- She underwent MRI of the breast on 10/20/2021. In the left breast in the upper outer quadrant there was an irregular mass with internal biopsy clip artifact representing biopsy-proven invasive carcinoma. There was an adjacent clumped nonmass enhancement that correlated to the adjacent suspicious focal asymmetry/architectural distortion with calcifications on the 10/04/2021 mammogram. Overall area of contiguous involvement in the upper outer quadrant (mass with adjacent non-mass enhancement) measured up to 2.7 cm in greatest dimension. He was noted that on a postbiopsy diagnostic mammogram that was available for comparison there was a possible group of indeterminate appearing calcifications in the upper outer quadrant posterior depth for which magnification views were recommended. Two additional abnormalities were identified in the breast--There is an additional irregular 0.5 x 0.4 x 0.4 cm (transverse by AP by cc dimensions) in the left upper-outer quadrant (series 7 image 75) which demonstrates heterogeneous enhancement with prominent central washout kinetics concerning for an additional site of involvement. There is an additional 0.4 x 0.4 x 0.4 cm mass upper CENTRAL breast (series 7 image 76) which also demonstrates heterogeneous enhancement with prominent central washout kinetics concerning for an additional site of involvement. LYMPH NODES: There are no suspicious axillary or internal mammary lymph nodes in either breast. RIGHT BREAST: There is no suspicious mass or area of non-mass enhancement identified within limitation of marked background parenchymal enhancement. -------- Underwent MRI guided biopsy with clip placement 11/01/2021. Pathology: A. Breast, left, upper outer aspect, calcifications, Twirl clip, stereotactic core biopsy: --Atypical ductal hyperplasia (ADH). --Microcalcifications are present in ducts adjacent to ADH. --Please see comment. B. Breast, left, at 10:00, 3 cm from the nipple, Q clip, ultrasound-guided core biopsy: --Fibroadenoma. Second MRI breast biopsy 11/10/2021 Pathology: A. 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 Previous therapy: 1) TCH-P. Completed cycle #6 on 03/14/2022. 2) Herceptin x1 dose pre-operatively 04/07/2022. 3) Underwent left nipple sparing mastectomy, left sentinel lymph node mapping and biopsy, right prophylactic nipple sparing mastectomy along with right breast reconstruction direct to implant with total acellular dermal matrix coverage and left breast reconstruction direct to implant with total acellular dermal matrix coverage on 04/17/2022. Pathology: Tumor bed: The tumor bed measures 40 x 40 mm in size, and shows variable cellularity wi (more content not included)... Normal [facility] CNOVon 09-22-2024 CNOV Office Visit (REIBD) STEPHEN SELF ([id number]) 1990 F CHT Date Time Provider Department 09/22/24 10:15 AM JAM FOLEY During your visit today, we recorded the following information about you: Pulse Respiration Blood pressure Weight 69/minute 19/minute 112/75 68.8 kg Height 1.727 m Jam Foley MD 09/28/2024 10:44 AM Signed Stephen Self is a 34 year old.here for followup. Created embryos in 2021. And had a from a surrogate in 2023. Here to see if can use remaining embryos. Has two embryos in storage. Here today to understand the process of replacing embryo back inside the uterus Original dx was berast cancer and since ER and VA positive was told would be best to not carry a . Her sister in law Donna Chinchilla 04/25/1990 carried the . Last took a medication in Jul 21 2024 Depo lupron was stopped. She was on it for almost 3 years and of course did not get any periods during that time. Also stopped the anastrazol on the same day. Plan is to restart both medications after she has completed childbearing and continue the meds until natural menopause. Was exposed to chemotherapy from november of 2021- mar 2022. Then double mastectomy and reconstruciton. Then placed on ketsyla (12 treatments) up till feb. Has not had menses since 2021 due to the above med. OB history 01/2024- girl via surrogate, 37 weeks Menstrual Hx: Menarche: 17 Cycle length: n/a Duration: n/a LMP was November 2021. Past Medical Hx: PAST MEDICAL HISTORY Diagnosis Date Abnormal Pap smear of cervix Anal fissure Anemia with crohns Cancer (HCC) breast cancer Crohn's disease (HCC) 07/09/2013 Hypoglycemia Iron 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 dietary iron intake 02/13/2023 Iron malabsorption 02/13/2023 Malignant neoplasm of left breast (HCC) 09/2021 PMH - PAST MEDICAL HISTORY OF 04/08/2004 Normal color vision PMH - PAST MEDICAL HISTORY OF 12/23/2001 Pneumonia Past Surgical Hx: PAST SURGICAL HISTORY Procedure Laterality Date COLONOSCOPY 07/09/2013 EXTRACTION ERUPTED TOOTH/EXR age 17 PAST SURGICAL HISTORY OF 07/09/2006 Cyst removal in right wrist PAST SURGICAL HISTORY OF masectomy and reconstruction TONSILLECTOMY PRIMARY/SECONDARY AGE 13/> 10/07/2008 US BREAST NEEDLE CORE BIOPSY LT Left 09/2021 Social History Tobacco Use Smoking status: Never Smokeless tobacco: Never Vaping Use Vaping status: Never Used Substance Use Topics Alcohol use: Not Currently Comment: Occasionally Drug use: Never Assessment- history of breast cancer, desire to use own uterus Plan- will await to see if periods restart (has been only about 6 weeks). If no period will check FSH and E2 and AMH in 3-6 months from now. Option of use of embryos vs timed IUI if gets regular periods discussed. Still has pain with intercourse. Will consider cavity evaluation not until at least December when hopefully she has had time to become exposed to estrogen again. Options of programmed vs natural FET discussed today. It will depend on her cycle resumption. FET sheet was singed today. I spent a total of 45 minutes on the date of the service which included preparing to see the patient, [id number] patient care, completing clinical documentation, and counseling and educating the patient/family/caregive rTai Foley MD Allergies As of Date: 09/22/2024 (No Known Allergies) Date Reviewed: 09/22/2024 Reviewed by: Jud Leach - Fully Assessed Reason for Visit: Infertility [285] Primary Visit Diagnosis:Female infertility [N97.9] Prescriptions as of 09/28/2024 - anastrozole (ARIMIDEX) 1 mg tablet Take 1 tablet by mouth once daily. - LUPRON DEPOT 3.75 mg injection Inject 3.75 mg intramuscularly once every month. Once a month during chemotherapy Problem List As Of Date 09/22/2024 Noted Resolved ACNE NEC [L70.8] 04/12/2006 VITILIGO [L80] 04/12/2006 GANGLION JOINT (Right volar wrist) [M67.40] 09/17/2006 ASCUS with positive high risk HPV [TUR6906] 09/04/2012 08/28/2016 Dysmenorrhea [N94.6] 12/03/2012 Breakthrough bleeding on control pills [N*12/27/2012 07/12/2015 Malignant neoplasm of upper-outer quadrant of l*10/21/2021 At risk for lymphedema [Z91.89] 10/21/2021 HER2-positive carcinoma of left breast (HCC) [C*10/25/2021 Functional diarrhea [K59.1] 02/16/2022 Crohn disease (HCC) [K50.90] 03/24/2022 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 chemotherapy [D64.*03/24/2022 Thrombocytopenia (HCC) [D69.6] 03/24/2022 Anal fissure [K60.2] 03/24/2022 Acute pain of left shoulder [M25.512] 06/19/2022 Iron 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 *02/13/2023 Iron malabsorption [K90.9] 02/13/2023 History of breast cancer [Z85.3] 09/15/2024 Breast cancer screening, high risk patient [Z12*09/15/2024 Medications Discontinued During This Encounter Prescriptions - (more content not included)... Normal [facility] CNOVon 09-11-2024 CNOV Office Visit (WMHLST ) STEPHEN SELF ([id number]) 1990 F T Date Time Provider Department 09/11/24 1:00 PM PAULINA NULL LONG [facility] During your visit today, we recorded the following information about you: Paulina Null, 09/15/2024 8:20 PM Signed REASON FOR TODAY'S VISIT: Patient presents with: Established Patient HISTORY of PRESENT ILLNESS: Stephen Self is a 34 year old female initially presented 11/2021 with a LEFT breast 2.7 cm IDC, NG 2 with DCIS @ 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 MRI showed 2 satellite lesions. 2nd look performed and [address] appeared normal. ER+VA+HER2+ [id number] Underwent neoadjuvant chemotherapy, TCHP with Dr. Ayers, Finished 03/10/22 Genetic testing was negative s/p a LEFT nipple sparing mastectomy, SLNB, RIGHT prophylactic nipple sparing mastectomy with pre-pec implant placement on 04/17/2022 Final pathology LEFT: Residual breast invasive carcinoma, 1.6 cm (closet margin < 0.2 mm to superior margin), 0/4 LN (2 intra-mammary nodes negative). ER+VA+HER2+ [id number] No PMRT was indicated HISTORY: Patient was last seen for a six month follow up on 12/07/2023. At that time, patient was following with Dr. Ayers and his team. She completed adjuvant Kadcycla (stopped after treatment # 12 d/t elevated LFT) and was doing well. Breast MRI results were reviewed and negative for evidence of malignancy. Patient was excited to be expecting a child (sister in law as her surrogate). In the interim, she underwent her annual Breast MRI in 08/2024, which was without evidence of recurrence. She is interested in having a 2nd child but becoming herself She has consulted with Dr. Stubbs regarding the PROMISE trial and intents to come off librado and arimidex to attempt pregrnancy She does have 2 embryos from her prior egg harvest. ROS: GENERAL: No weight loss, malaise or fevers HEENT: Negative for frequent or significant headaches, No changes in hearing or vision RESPIRATORY: Negative for cough, wheezing, or shortness of breath CARDIOVASCULAR: Negative for chest pain, leg swelling, or heart palpitations MUSCULOSKELETAL: Negative for joint pain or swelling, back pain or muscle pain, no upper extremity swelling or lymphedema ABD: no abdominal pain INTEGUMENTARY: Denies Scleroderma or Lupus. Denies chronic skin conditions. BREASTS:She denies any new palpable breast masses, skin changes, nipple discharge, nipple retraction, breast pain or masses in her axilla. All other reviewed and negative other than HPI. IMAGING: * * *Final Report* * * DATE OF EXAM: Sep 01 2024 4:17PM [facility] [place] 0788 - MRI BREAST 3D POST PROCESSING / PROCEDURE REASON: multiple diagnoses * * * * Physician Interpretation * * * * [address] [address] #[id number] - MRI BREAST WO/W IVCON [facility] #[id number] - MRI BREAST 3D POST PROCESSING HISTORY: 34 year-old patient seen for diagnostic evaluation of personal breast cancer history. High-risk screening MRI. History of LEFT breast cancer status post nipple sparing mastectomy. COMPARISON STUDIES: The present examination has been compared to prior imaging studies dated 11/10/2021 (mammogram), 03/07/2022 (MRI), 03/08/2022 (ultrasound), 03/08/2022 (mammogram) and 09/10/2023 (MRI). BREAST MRI: TECHNIQUE: FSPGR, T1 axial and coronal images were obtained as well as T2 axial images. A dynamic series of five FSPGR 3-D T1 weighted axial images of both breasts were obtained following intravenous administration of 9 cc gadolinium-based contrast. Fat suppression as well as subtraction imaging was performed both axially and coronally. A sagittal fat suppressed series was obtained as the last sequence in this study. The examination was reviewed utilizing the ROCKI software with computer-determined curve analysis. BREAST TISSUE: The fibroglandular tissue of the RIGHT breast is scattered. The LEFT reconstructed breast is fatty. BACKGROUND ENHANCEMENT: Mild background parenchymal enhancement. RIGHT BREAST: There is no suspicious mass, abnormal enhancement pattern, distortion or other significant abnormality in the Right breast. Right breast implant is intact without evidence rupture. LEFT RECONSTRUCTED BREAST: There is no suspicious mass, abnormal enhancement pattern, distortion or other significant abnormality in the Left reconstructed breast. Left breast implant is intact without evidence rupture. AXILLA AND OTHER: No abnormal axillary lymphadenopathy. IMPRESSION: No MRI evidence of malignancy in either breast. Status post LEFT breast mastectomy without evidence of recurrence. EXAMINATION: GEN alert and orientated, well nourished, calm Regional Lymph Nodes There is no concerning supraclavicular, infraclavicular (more content not included)... Normal [facility] CNOVon 09-03-2024 CNOV Office Visit (PLASST ) STEPHEN SELF ([id number]) 1990 F T Date Time Provider Department 09/03/24 1:45 PM BRADFORD GARCÍA During your visit today, we recorded the following information about you: Bradford García MD 09/03/2024 4:49 PM Signed PLASTIC SURGERY ESTABLISHED PATIENT VISIT CC: follow up breast reconstruction HPI: The patient is still on immunotherapy (chemotherapy). Stephen Self is a 34 year old female with a history of left breast cancer. Last office visit 09/14/2022 and she presents today to discuss keloid scar where her port was removed in her right chest 1 year ago. Denies keloid scarring anywhere else. Reports constant itching at the area. Breast cancer Hx: history of left breast cancer Breast reconstruction history 04/17/22 Bilateral nipple sparing mastectomies with Dr. Null 04/17/22 Bilateral breast reconstruction with direct to implant placement and ADM Implants: 405 SRM Follows with Oncologist. Dr. Ayers Doing well Hx Radiation Therapy: No Hx Chemotherapy: Yes, completed 03/14/2022 Current therapy: 1) Lupron monthly. 2) Anastrozole. Started 09/10/2022. PAIN: No: 0 on a scale of 0 to 10 Hx of bleeding/clotting: denies No blood thinners Denies diabetes Breast MRI: 09/01/2024 MRI BREAST BILATERAL IMPRESSION: No MRI evidence of malignancy in either breast. Status post LEFT breast mastectomy without evidence of recurrence. REVIEW OF SYSTEMS PAIN ASSESSMENT: Negative for pain, history of chronic pain, or current treatment for a chronic pain condition. GENERAL: No weight loss, malaise or fevers Allergies: No Known Allergies PAST MEDICAL HISTORY Diagnosis Date Abnormal Pap smear of cervix Anal fissure Anemia with crohns Cancer (HCC) breast cancer Crohn's disease (HCC) 07/09/2013 Hypoglycemia Iron 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 dietary iron intake 02/13/2023 Iron malabsorption 02/13/2023 Malignant neoplasm of left breast (HCC) 09/2021 PMH - PAST MEDICAL HISTORY OF 04/08/2004 Normal color vision PMH - PAST MEDICAL HISTORY OF 12/23/2001 Pneumonia PAST SURGICAL HISTORY Procedure Laterality Date COLONOSCOPY 07/09/2013 EXTRACTION ERUPTED TOOTH/EXR age 17 PAST SURGICAL HISTORY OF 07/09/2006 Cyst removal in right wrist PAST SURGICAL HISTORY OF masectomy and reconstruction TONSILLECTOMY PRIMARY/SECONDARY AGE 13/> 10/07/2008 BREAST NEEDLE CORE BIOPSY LT Left 09/2021 Current Outpatient Medications on File Prior to Visit Medication Sig OTC PRODUCT Liver upplement 4 capsules once daily anastrozole (ARIMIDEX) 1 mg tablet Take 1 tablet by mouth once daily. (Patient not taking: Reported on 09/03/2024) LUPRON DEPOT 3.75 mg injection Inject 3.75 mg intramuscularly once every month. Once a month during chemotherapy (Patient not taking: Reported on 09/03/2024) No current facility-administered medications on file prior to visit Social History Tobacco Use Smoking status: Never Smokeless tobacco: Never Vaping Use Vaping status: Never Used Substance Use Topics Alcohol use: Not Currently Comment: Occasionally Drug use: Never There were no vitals filed for this visit. There is no height or weight on file to calculate BMI. PE Alert and oriented in NAD bilateral breast scar well healed No erythema or drainage noted bilateral breast soft, bilateral implants intact Raised red scar of the right upper chest/breast 2 x 1 x 0.3 cm - tender INFORMED CONSENT The risks, benefits and anticipated outcomes of the procedure, the risks and benefits of the alternatives to the procedure and the roles and tasks of the personnel to be involved were discussed with the patient and the patient consents to the procedure and agrees to proceed. I verify that I personally obtained the patient's consent. 1:1 ratio KENALOG 40mg/ml to 1% plain Lidocaine 0.25 cc injected to right chest scar PLAN: 1. Patient will return PRN for future injections. 2. Instructed patient to call the office with any questions or concerns regarding this procedure. Injections performed by Dr. García. ASSESSMENT/PLAN: hx of left breast cancer, s/p bilateral breast reconstruction with painful keloid scar Steroid injection to right mediport scar Discussed observation, steroid injections, scar excision (discussed this could result in another keloid), discussed laser therapy to the scar but likely will not be covered by insurance. Patient interested in sterid injection today Return to clinic 3 months I spent 30 minutes in the visit, with more than 50% of the total [id number] time of the visit in counseling / coordination of care. The patient is seen and examined by Dr. García and the following reflects his/her service. Scribed by Flakita Pat RN I agree with the Chief Complaint, ROS, and Past Histories independently gathered by (more content not included)... Normal [facility] MRI BREAST 3D POST PROCESSIN Braulio 09-01-2024 MRI BREAST 3D POST PROCESSING * * *Final Report* * * DATE OF EXAM: Sep 01 2024 4:17PM [facility] [place] 0788 - MRI BREAST 3D POST PROCESSING / PROCEDURE REASON: multiple diagnoses * * * * Physician Interpretation * * * * [place] [address] #[id number] - MRI BREAST WO/W IVCON [facility] #[id number] - MRI BREAST 3D POST PROCESSING HISTORY: 34 year-old patient seen for diagnostic evaluation of personal breast cancer history. High-risk screening MRI. History of LEFT breast cancer status post nipple sparing mastectomy. COMPARISON STUDIES: The present examination has been compared to prior imaging studies dated 11/10/2021 (mammogram), 03/07/2022 (MRI), 03/08/2022 (ultrasound), 03/08/2022 (mammogram) and 09/10/2023 (MRI). BREAST MRI: TECHNIQUE: FSPGR, T1 axial and coronal images were obtained as well as T2 axial images. A dynamic series of five FSPGR 3-D T1 weighted axial images of both breasts were obtained following intravenous administration of 9 cc gadolinium-based contrast. Fat suppression as well as subtraction imaging was performed both axially and coronally. A sagittal fat suppressed series was obtained as the last sequence in this study. The examination was reviewed utilizing the ROCKI software with computer-determined curve analysis. BREAST TISSUE: The fibroglandular tissue of the RIGHT breast is scattered. The LEFT reconstructed breast is fatty. BACKGROUND ENHANCEMENT: Mild background parenchymal enhancement. RIGHT BREAST: There is no suspicious mass, abnormal enhancement pattern, distortion or other significant abnormality in the Right breast. Right breast implant is intact without evidence rupture. LEFT RECONSTRUCTED BREAST: There is no suspicious mass, abnormal enhancement pattern, distortion or other significant abnormality in the Left reconstructed breast. Left breast implant is intact without evidence rupture. AXILLA AND OTHER: No abnormal axillary lymphadenopathy. IMPRESSION: No MRI evidence of malignancy in either breast. Status post LEFT breast mastectomy without evidence of recurrence. Follow up with ACR and NCCN guidelines. BI-RADS Category 2: Benign Interpreting Radiologist: Jami Porras M.D. Electronically signed on: 09/02/2024 Transportation Worker: KUSH Transcribe Date/Time: Sep 01 2024 4:17P Dictated by : JAMI PORRAS MD This examination was interpreted and the report reviewed and electronically signed by: JAMI PORRAS MD on Sep 02 2024 7:54AM EST [id number] Normal [facility] MRI BREAST WO/W IVCON BILon 09-01-2024 MRI BREAST WO/W IVCON PAKO * * *Final Report* * * DATE OF EXAM: Sep 01 2024 4:16PM [facility] [place] 0773 - MRI BREAST WO/W IVCON PAKO / PROCEDURE REASON: multiple diagnoses * * * * Physician Interpretation * * * * [place] [address] #[id number] - MRI BREAST WO/W IVCON [place] #[id number] - MRI BREAST 3D POST PROCESSING HISTORY: 34 year-old patient seen for diagnostic evaluation of personal breast cancer history. High-risk screening MRI. History of LEFT breast cancer status post nipple sparing mastectomy. COMPARISON STUDIES: The present examination has been compared to prior imaging studies dated 11/10/2021 (mammogram), 03/07/2022 (MRI), 03/08/2022 (ultrasound), 03/08/2022 (mammogram) and 09/10/2023 (MRI). BREAST MRI: TECHNIQUE: FSPGR, T1 axial and coronal images were obtained as well as T2 axial images. A dynamic series of five FSPGR 3-D T1 weighted axial images of both breasts were obtained following intravenous administration of 9 cc gadolinium-based contrast. Fat suppression as well as subtraction imaging was performed both axially and coronally. A sagittal fat suppressed series was obtained as the last sequence in this study. The examination was reviewed utilizing the ROCKI software with computer-determined curve analysis. BREAST TISSUE: The fibroglandular tissue of the RIGHT breast is scattered. The LEFT reconstructed breast is fatty. BACKGROUND ENHANCEMENT: Mild background parenchymal enhancement. RIGHT BREAST: There is no suspicious mass, abnormal enhancement pattern, distortion or other significant abnormality in the Right breast. Right breast implant is intact without evidence rupture. LEFT RECONSTRUCTED BREAST: There is no suspicious mass, abnormal enhancement pattern, distortion or other significant abnormality in the Left reconstructed breast. Left breast implant is intact without evidence rupture. AXILLA AND OTHER: No abnormal axillary lymphadenopathy. IMPRESSION: No MRI evidence of malignancy in either breast. Status post LEFT breast mastectomy without evidence of recurrence. Follow up with ACR and NCCN guidelines. BI-RADS Category 2: Benign Interpreting Radiologist: Jami Porras M.D. Electronically signed on: 09/02/2024 Transportation Worker: KUSH Transcribe Date/Time: Sep 01 2024 3:45P Dictated by : JAMI PORRAS MD This examination was interpreted and the report reviewed and electronically signed by: JAMI PORRAS MD on Sep 02 2024 7:54AM EST [id number] [facility] NURSING PROGon 09-01-2024 NURSING PROG HNO ID: [id number] Author: GWEN VIERA RN Service: Radiology Author Type: Registered Nurse Type: Nursing Progress Note Filed: 09/01/2024 15:39 Note Text: Radiology Service Progress Note DATE OF SERVICE: September 01, 2024 TIME: 3:38 PM PATIENT WEIGHT: 151 LBS PATIENT IDENTITY VERIFICATION COMPLETED USING TWO (2) STANDARD IDENTIFIERS: Name and Date of confirmed by patient verbally. FALL SCREENING: Has the patient had 2 falls in the last year or 1 fall with injury or currently using an Ambulatory Assistive Device (Walker, Cane, Wheelchair, Crutches, etc.)? No PATIENT GENDER DATA: Assigned female at . status: : No status: NO. ALLERGIES: Reviewed and unchanged CONTRAST ALLERGY: No EXAM: MRI - CONTRAST TYPE: GROUP II IV SITE: Ambulatory: A peripheral IV was started in the Left antecubital site with a Angio cath: 22 gauge. IV SITE APPEARANCE: Clean,Dry and Intact SIGNATURE: Gwen Viera RN PATIENT NAME: Stephen Self DATE: September 01, 2024 TIME: 3:38 PM [facility] CBC W Auto Differential pane l (Bld)on 08-20-2024 Basophils (Bld) [#/Vol] 0.04 10*3/uL Normal <0.11 [facility] Comment on above: Order Comment: Speci men Type: BLOOD SPECIMENOrdering Facility: Address: [address] [place] [address] Performed By: #### 5 7021-8 ####[facility]ITALWNCLIA [id number] [place] [address] [place] Basophils/100 WBC (Bld) 0.6 % Normal [facility] Comment on above: Order Comment: Speci men Type: BLOOD SPECIMENOrdering Facility: Address: [address] [place] [address] Performed By: #### 5 7021-8 ####[facility] JESUWXIOMARALIA [id number] [place] [address] [place] Differential cell count method Nom (Bld) Auto Normal [facility] Comment on above: Order Comment: Speci men Type: BLOOD SPECIMENOrdering Facility: Address: [address] [place] [address] Performed By: #### 5 7021-8 ####[facility] JESUWATERTOWNXIOMARASHARAA [id number] [place] [address] [place] Eosinophils (Bld) [#/Vol] 0.12 10*3/uL Normal <0.46 [facility] Comment on above: Order Comment: Speci men Type: BLOOD SPECIMENOrdering Facility: Address: [address] [place] [address] Performed By: #### 5 7021-8 ####[facility] JESUDUSTYLIA [id number] [place] [address] [place] Eosinophils/100 WBC (Bld) 1.9 % Normal [facility] Comment on above: Order Comment: Speci men Type: BLOOD SPECIMENOrdering Facility: Address: [address] [place] [address] Performed By: #### 5 7021-8 ####[facility]INICXIOMARALIA [id number] [place] [address] [place] Erythrocyte distribution width (RBC) [Ratio] 13.6 % Normal 11.5-15.0 [facility] Comment on above: Order Comment: Speci men Type: BLOOD SPECIMENOrdering Facility: Address: [address] [place] [address] Performed By: #### 5 7021-8 ####[facility] CHELANCRUDOLPH [id number] [place] [address] [place] Hematocrit (Bld) [Volume fraction] 42.5 % Normal 36.0-46.0 [facility] Comment on above: Order Comment: Speci men Type: BLOOD SPECIMENOrdering Facility: Address: [address] [place] [address] Performed By: #### 5 7021-8 ####[facility] CLINICNCRUDOLPH [id number] [place] [address] [place] Hemoglobin (Bld) [Mass/Vol] 14.4 g/dL Normal 11.5-15.5 [facility] Comment on above: Order Comment: Speci men Type: BLOOD SPECIMENOrdering Facility: Address: [address] [place] [address] Performed By: #### 5 7021-8 ####[facility] CLINICPIERREA [id number] [place] [address] [place] Immature granulocytes (Bld) [#/Vol] 10*3/uL Normal <0.10 [facility] Comment on above: Order Comment: Speci men Type: BLOOD SPECIMENOrdering Facility: Address: [address] [place] [address] Performed By: #### 5 7021-8 ####[facility] CLINICNCLIA [id number] [place] [address] [place] Immature granulocytes/100 WBC (Bld) 0.3 % Normal [facility] Comment on above: Order Comment: Speci men Type: BLOOD SPECIMENOrdering Facility: Address: [address] [place] [address] Performed By: #### 5 7021-8 ####[facility] MILLWNCLIA [id number] [place] [address] [place] Lymphocytes (Bld) [#/Vol] 1.94 10*3/uL Normal 1.00-4.00 [facility] Comment on above: Order Comment: Speci men Type: BLOOD SPECIMENOrdering Facility: Address: [address] [place] [address] Performed By: #### 5 7021-8 ####[facility] CENTERLIA [id number] [place] [address] [place] Lymphocytes/100 WBC (Bld) 30.2 % Normal [facility] Comment on above: Order Comment: Speci men Type: BLOOD SPECIMENOrdering Facility: Address: [address] [place] [address] Performed By: #### 5 7021-8 ####[facility]STITUTEA [id number] [place] [address] [place] MCH (RBC) [Entitic mass] 29.0 pg Normal 26.0-34.0 [facility] Comment on above: Order Comment: Speci men Type: BLOOD SPECIMENOrdering Facility: Address: [address] [place] [address] Performed By: #### 5 7021-8 ####[facility] CENTERLIA [id number] [place] [address] [place] MCHC (RBC) [Mass/Vol] 33.9 g/dL Normal 30.5-36.0 [facility] Comment on above: Order Comment: Speci men Type: BLOOD SPECIMENOrdering Facility: Address: [address] [place] [address] Performed By: #### 5 7021-8 ####[facility] CLINICNCLI [id number] [place] [address] [place] MCV (RBC) [Entitic vol] 85.7 fL Normal 80.0-100.0 [facility] Comment on above: Order Comment: Speci men Type: BLOOD SPECIMENOrdering Facility: Address: [address] [place] [address] Performed By: #### 5 7021-8 ####[facility]A [id number] [place] [address] [place] Monocytes (Bld) [#/Vol] 0.57 10*3/uL Normal <0.87 [facility] Comment on above: Order Comment: Speci men Type: BLOOD SPECIMENOrdering Facility: Address: [address] [place] [address] Performed By: #### 5 7021-8 ####[facility] [id number] [place] [address] [place] Monocytes/100 WBC (Bld) 8.9 % Normal [facility] Comment on above: Order Comment: Speci men Type: BLOOD SPECIMENOrdering Facility: Address: [address] [place] [address] Performed By: #### 5 7021-8 ####[facility] CENTERLIA [id number] [place] [address] [place] Neutrophils (Bld) [#/Vol] 3.73 10*3/uL Normal 1.45-7.50 [facility] Comment on above: Order Comment: Speci men Type: BLOOD SPECIMENOrdering Facility: Address: [address] [place] [address] Performed By: #### 5 7021-8 ####[facility]ICNCLIA [id number] [place] [address] [place] Neutrophils/100 WBC (Bld) 58.1 % Normal [facility] Comment on above: Order Comment: Speci men Type: BLOOD SPECIMENOrdering Facility: Address: [address] [place] [address] Performed By: #### 5 7021-8 ####[facility] JESUTEREA [id number] [place] [address] [place] Nucleated RBC (Bld) [#/Vol] 10*3/uL Normal <0.01 [facility] Comment on above: Order Comment: Speci men Type: BLOOD SPECIMENOrdering Facility: Address: [address] [place] [address] Performed By: #### 5 7021-8 ####[facility] [id number] [place] [address] [place] Nucleated RBC/100 WBC (Bld) [Ratio] 0.0 /100 WBC Normal [facility] Comment on above: Order Comment: Speci men Type: BLOOD SPECIMENOrdering Facility: Address: [address] [place] [address] Performed By: #### 5 7021-8 ####[facility]A [id number] [place] [address] [place] Platelet mean volume (Bld) [Entitic vol] 11.7 fL Normal 9.0-12.7 [facility] Comment on above: Order Comment: Speci men Type: BLOOD SPECIMENOrdering Facility: Address: [address] [place] [address] Performed By: #### 5 7021-8 ####[facility] CENTERLIA [id number] [place] [address] [place] Platelets (Bld) [#/Vol] 127 10*3/uL Low 150-400 [facility] Comment on above: Order Comment: Speci men Type: BLOOD SPECIMENOrdering Facility: Address: [address] [place] [address] Result Comment: No c lot detected. Performed By: #### 5 7021-8 ####[facility]ITALWNCLIA [id number] [place] [id number] [place] RBC (Bld) [#/Vol] 4.96 10*6/uL Normal 3.90-5.20 [facility] Comment on above: Order Comment: Speci men Type: BLOOD SPECIMENOrdering Facility: Address: [address] [place] [address] Performed By: #### 5 7021-8 ####[facility]ICNCLIA [id number] [place] [address] [place] [place] WBC (Bld) [#/Vol] 6.42 10*3/uL Normal 3.70-11.00 [facility] Comment on above: Order Comment: Speci men Type: BLOOD SPECIMENOrdering Facility: Address: [address] [place] [address] Performed By: #### 5 7021-8 ####[facility]ICNCLIA [id number] [place] [address] [place] Comprehensive metabolic 2000 panelon 08-20-2024 Albumin [Mass/Vol] 4.9 g/dL Normal 3.9-4.9 [facility] Comment on above: Order Comment: Speci men Type: BLOOD SPECIMENOrdering Facility: Address: [address] [place] [address] Performed By: #### 2 4323-8 ####[facility] CLINICNCLIA [id number] [place] [address] [place] ALP [Catalytic activity/Vol] 208 U/L High 34-123 [facility] Comment on above: Order Comment: Speci men Type: BLOOD SPECIMENOrdering Facility: Address: [address] [place] [address] Performed By: #### 2 4323-8 ####[facility] MILLTOWNCLIA [id number] [place] [address] [place] ALT [Catalytic activity/Vol] 21 U/L Normal 7-38 [facility] Comment on above: Order Comment: Speci men Type: BLOOD SPECIMENOrdering Facility: Address: [address] [place] [address] Performed By: #### 2 4323-8 ####[facility] MILLTOWNCLIA [id number] [place] [address] [place] Anion gap [Moles/Vol] 11 mmol/L Normal 8-15 [facility] Comment on above: Order Comment: Speci men Type: BLOOD SPECIMENOrdering Facility: Address: [address] [place] [address] Performed By: #### 2 4323-8 ####[facility]ITALWNCLIA [id number] [place] [address] [place] AST [Catalytic activity/Vol] 27 U/L Normal 13-35 [facility] Comment on above: Order Comment: Speci men Type: BLOOD SPECIMENOrdering Facility: Address: [address] [place] [address] Performed By: #### 2 4323-8 ####[facility] MILLTOWNCLIA [id number] [place] [address] [place] Bilirubin [Mass/Vol] 0.5 mg/dL Normal 0.2-1.3 [facility] Comment on above: Order Comment: Speci men Type: BLOOD SPECIMENOrdering Facility: Address: [address] [place] [address] Performed By: #### 2 4323-8 ####[facility]ITALWNCLIA [id number] [place] [address] [place] Calcium [Mass/Vol] 9.8 mg/dL Normal 8.5-10.2 [facility] Comment on above: Order Comment: Speci men Type: BLOOD SPECIMENOrdering Facility: Address: [address] [place] [address] Performed By: #### 2 4323-8 ####[facility] CLINICNCLIA [id number] [place] [address] [place] Chloride [Moles/Vol] 101 mmol/L Normal 98-107 [facility] Comment on above: Order Comment: Speci men Type: BLOOD SPECIMENOrdering Facility: Address: [address] [place] [address] Performed By: #### 2 4323-8 ####[facility]STITUTEA [id number] [place] [address] [place] CO2 [Moles/Vol] 28 mmol/L Normal 22-30 [facility] Comment on above: Order Comment: Speci men Type: BLOOD SPECIMENOrdering Facility: Address: [address] [place] [address] Performed By: #### 2 4323-8 ####[facility] [id number] [place] [address] [place] Creatinine [Mass/Vol] 0.56 mg/dL Low 0.58-0.96 [facility] Comment on above: Order Comment: Speci men Type: BLOOD SPECIMENOrdering Facility: Address: [address] [place] [address] Performed By: #### 2 4323-8 ####[facility] CLINICNCLIA [id number] [place] [address] [place] Creatinine and Glomerular filtration rate.predicted panel (S/P/Bld) 124 mL/min/1.73m??? Normal >=60 [facility] Comment on above: Order Comment: Speci men Type: BLOOD SPECIMENOrdering Facility: Address: [address] [place] [address] Result Comment: Qing mated Glomerular Filtration Rate (eGFR) is calculated using the 2020 CKD-EPI creatinine equation. This equation utilizes serum creatinine, sex, and age as parameters. The creatinine assay has traceable calibration to isotope dilution-mass spectrometry. Refer to KDIGO guidelines for clinical interpretation. In patients with unstable renal function, e.g. those with acute kidney injury, the eGFR may not accurately reflect actual GFR. Performed By: #### 2 4323-8 ####[facility] RESEARCH INSTITUTEDionne [id number] [place] [address] [place] Glucose [Mass/Vol] 97 mg/dL Normal 74-99 [facility] Comment on above: Order Comment: Iain may Type: BLOOD SPECIMENOrdering Facility: Address: [address] [place] [address] Result Comment: The [place] [employer] (ADA) provides guidance for cutoff values for fasting glucose and random glucose. The ADA defines fasting as no caloric intake for at least 8 hours. Fasting plasma glucose results between 100 to 125 mg/dL indicate increased risk for diabetes (prediabetes). Fasting plasma glucose results greater than or equal to 126 mg/dL meet the criteria for diagnosis of diabetes. In the absence of unequivocal hyperglycemia, results should be confirmed by repeat testing. In a patient with classic symptoms of hyperglycemia or hyperglycemic crisis, random plasma glucose results greater than or equal to 200 mg/dL meet the criteria for diagnosis of diabetes. Reference: Standards of Medical Care in Diabetes 2016, [place] [employer] Association. Diabetes Care. 2016.39(Suppl 1). Performed By: #### 2 4323-8 ####[facility] CENTERLIA [id number] [place] [address] [place] Potassium [Moles/Vol] 3.6 mmol/L Low 3.7-5.1 [facility] Comment on above: Order Comment: Iain may Type: BLOOD SPECIMENOrdering Facility: Address: [address] [id number] Performed By: #### 2 4323-8 ####[facility] [id number] [place] [address] [place] Protein [Mass/Vol] 8.2 g/dL High 6.3-8.0 [facility] Comment on above: Order Comment: Speci men Type: BLOOD SPECIMENOrdering Facility: Address: [address] [place] [address] Performed By: #### 2 4323-8 ####[facility] [id number] [place] [address] [place] Sodium [Moles/Vol] 140 mmol/L Normal 136-144 [facility] Comment on above: Order Comment: Speci men Type: BLOOD SPECIMENOrdering Facility: Address: [address] [place] [address] Performed By: #### 2 4323-8 ####[facility] [id number] [place] [address] [place] Urea nitrogen [Mass/Vol] 12 mg/dL Normal 7-21 [facility] Comment on above: Order Comment: Speci men Type: BLOOD SPECIMENOrdering Facility: Address: [address] [place] [address] Performed By: #### 2 4323-8 ####[facility] CENTERLI [id number] [place] [address] [place] CNOVSPon 07-21-2024 CNOVSP Visit (SP) Office ([place]) STEPHEN SELF ([id number]) 1990 F T Date Time Provider Department 07/21/24 11:30 AM CHANTAL AYERS During your visit today, we recorded the following information about you: Temperature Pulse Blood pressure Weight 98.7 degrees 86/minute 124/82 68.5 kg Chantal Ayers DO 07/21/2024 5:13 PM Signed Oncologic problem(s): 1) HER2 positive breast cancer. HPI: The patient is a 33-year-old female with a past medical history significant for Crohn's disease (dx 2014), vitiligo and dysmenorrhea. She self discovered a mass in the left breast. She underwent a bilateral diagnostic mammogram on 10/04/2021. The breasts were noted to be extremely dense lowering the sensitivity of the mammography. The palpable abnormality however corresponded to a 1.2 x 1.4 cm spiculated nodule in the deep lateral axillary region of the breast. Microcalcifications were identified within it. Patient underwent ultrasound of the breast on the same day. In the left breast corresponding to the palpable abnormality there was a 1.3 x 1.3 x 1.1 heterogeneous hypoechoic solid mass with microcalcifications at the 1 o'clock position of the breast 8 cm from the nipple. Increased vascularity was observed. Patient was referred to Dr. Farrar. She underwent a left core needle biopsy on 10/07/2021. 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 VA variable 10 to 50%, moderate intensity. HER-2/chaz 3+ IHC. Regular menses. OCPs starting age 17. Stopped age 30 to try to get . Stopped trying to get because had flare of Crohn's. Generalized itching all over--started last April. Triggered by heat (showever). Injured coccyx snowboarding in high school. Hurting more lately. Crohn's under control with anti-inflammatory diet. ------- She underwent MRI of the breast on 10/20/2021. In the left breast in the upper outer quadrant there was an irregular mass with internal biopsy clip artifact representing biopsy-proven invasive carcinoma. There was an adjacent clumped nonmass enhancement that correlated to the adjacent suspicious focal asymmetry/architectural distortion with calcifications on the 10/04/2021 mammogram. Overall area of contiguous involvement in the upper outer quadrant (mass with adjacent non-mass enhancement) measured up to 2.7 cm in greatest dimension. He was noted that on a postbiopsy diagnostic mammogram that was available for comparison there was a possible group of indeterminate appearing calcifications in the upper outer quadrant posterior depth for which magnification views were recommended. Two additional abnormalities were identified in the breast--There is an additional irregular 0.5 x 0.4 x 0.4 cm (transverse by AP by cc dimensions) in the left upper-outer quadrant (series 7 image 75) which demonstrates heterogeneous enhancement with prominent central washout kinetics concerning for an additional site of involvement. There is an additional 0.4 x 0.4 x 0.4 cm mass upper CENTRAL breast (series 7 image 76) which also demonstrates heterogeneous enhancement with prominent central washout kinetics concerning for an additional site of involvement. LYMPH NODES: There are no suspicious axillary or internal mammary lymph nodes in either breast. RIGHT BREAST: There is no suspicious mass or area of non-mass enhancement identified within limitation of marked background parenchymal enhancement. -------- Underwent MRI guided biopsy with clip placement 11/01/2021. Pathology: A. Breast, left, upper outer aspect, calcifications, Twirl clip, stereotactic core biopsy: --Atypical ductal hyperplasia (ADH). --Microcalcifications are present in ducts adjacent to ADH. --Please see comment. B. Breast, left, at 10:00, 3 cm from the nipple, Q clip, ultrasound-guided core biopsy: --Fibroadenoma. Second MRI breast biopsy 11/10/2021 Pathology: A. 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 Previous therapy: 1) TCH-P. Completed cycle #6 on 03/14/2022. 2) Herceptin x1 dose pre-operatively 04/07/2022. 3) Underwent left nipple sparing mastectomy, left sentinel lymph node mapping and biopsy, right prophylactic nipple sparing mastectomy along with right breast reconstruction direct to implant with total acellular dermal matrix coverage and left breast reconstruction direct to implant with total acellular dermal matrix coverage on 04/17/2022. Pathology: Tumor bed: The tumor bed measures 40 x 40 mm in size, and shows variable cellularity (more content not included)... Normal [facility] CBC W Auto Differential pane l (Bld)on 07-17-2024 Basophils (Bld) [#/Vol] 0.04 10*3/uL Normal <0.11 [facility] Comment on above: Order Comment: Speci men Type: BLOOD SPECIMENOrdering Facility: Address: [address] [place] [address] Performed By: #### 5 7021-8 ####[facility] [id number] [place] [address] [place] Basophils/100 WBC (Bld) 0.7 % Normal [facility] Comment on above: Order Comment: Speci men Type: BLOOD SPECIMENOrdering Facility: Address: [address] [place] [address] Performed By: #### 5 7021-8 ####[facility] [id number] [place] [address] [place] Differential cell count method Nom (Bld) Auto Normal [facility] Comment on above: Order Comment: Speci men Type: BLOOD SPECIMENOrdering Facility: Address: [address] [place] [address] Performed By: #### 5 7021-8 ####[facility] MED[facility] CENTERLIA [id number] [place] [address] [place] Eosinophils (Bld) [#/Vol] 0.13 10*3/uL Normal <0.46 [facility] Comment on above: Order Comment: Speci men Type: BLOOD SPECIMENOrdering Facility: Address: [address] [place] [address] Performed By: #### 5 7021-8 ####[facility]ITALWNCLIA [id number] [place] [address] [place] Eosinophils/100 WBC (Bld) 2.4 % Normal [facility] Comment on above: Order Comment: Speci men Type: BLOOD SPECIMENOrdering Facility: Address: [address] [place] [address] Performed By: #### 5 7021-8 ####[facility] [id number] [place] [address] [place] Erythrocyte distribution width (RBC) [Ratio] 13.6 % Normal 11.5-15.0 [facility] Comment on above: Order Comment: Speci men Type: BLOOD SPECIMENOrdering Facility: Address: [address] [place] [address] Performed By: #### 5 7021-8 ####[facility] MED[facility] CENTERLIA [id number] [place] [address] [place] Hematocrit (Bld) [Volume fraction] 41.6 % Normal 36.0-46.0 [facility] Comment on above: Order Comment: Speci men Type: BLOOD SPECIMENOrdering Facility: Address: [address] [place] [address] Performed By: #### 5 7021-8 ####[facility] [id number] [place] [address] [place] Hemoglobin (Bld) [Mass/Vol] 14.0 g/dL Normal 11.5-15.5 [facility] Comment on above: Order Comment: Speci men Type: BLOOD SPECIMENOrdering Facility: Address: [address] [place] [address] Performed By: #### 5 7021-8 ####[facility] SHYLAWNCLIA [id number] [place] [address] [place] Immature granulocytes (Bld) [#/Vol] 10*3/uL Normal <0.10 [facility] Comment on above: Order Comment: Speci men Type: BLOOD SPECIMENOrdering Facility: Address: [address] [place] [address] Performed By: #### 5 7021-8 ####[facility] JESUWNCLIA [id number] [place] [address] [place] Immature granulocytes/100 WBC (Bld) 0.2 % Normal [facility] Comment on above: Order Comment: Speci men Type: BLOOD SPECIMENOrdering Facility: Address: [address] [place] [address] Performed By: #### 5 7021-8 ####[facility]ITALWNCLIA [id number] [place] [address] [place] Lymphocytes (Bld) [#/Vol] 1.68 10*3/uL Normal 1.00-4.00 [facility] Comment on above: Order Comment: Speci men Type: BLOOD SPECIMENOrdering Facility: Address: [address] [place] [address] Performed By: #### 5 7021-8 ####[facility] JESUWNCLIA [id number] [place] [address] [place] Lymphocytes/100 WBC (Bld) 31.0 % Normal [facility] Comment on above: Order Comment: Speci men Type: BLOOD SPECIMENOrdering Facility: Address: [address] [place] [address] Performed By: #### 5 7021-8 ####[facility] [id number] [place] [address] [place] MCH (RBC) [Entitic mass] 29.2 pg Normal 26.0-34.0 [facility] Comment on above: Order Comment: Speci men Type: BLOOD SPECIMENOrdering Facility: Address: [address] [place] [address] Performed By: #### 5 7021-8 ####[facility] [id number] [place] [address] [place] MCHC (RBC) [Mass/Vol] 33.7 g/dL Normal 30.5-36.0 [facility] Comment on above: Order Comment: Speci men Type: BLOOD SPECIMENOrdering Facility: Address: [address] [place] [address] Performed By: #### 5 7021-8 ####[facility] [id number] [place] [address] [place] MCV (RBC) [Entitic vol] 86.7 fL Normal 80.0-100.0 [facility] Comment on above: Order Comment: Speci men Type: BLOOD SPECIMENOrdering Facility: Address: [address] [place] [address] Performed By: #### 5 7021-8 ####[facility] [id number] [place] [address] [place] Monocytes (Bld) [#/Vol] 0.62 10*3/uL Normal <0.87 [facility] Comment on above: Order Comment: Speci men Type: BLOOD SPECIMENOrdering Facility: Address: [address] [place] [address] Performed By: #### 5 7021-8 ####[facility]ICNC[facility] [id number] [place] [address] [place] Monocytes/100 WBC (Bld) 11.4 % Normal [facility] Comment on above: Order Comment: Speci men Type: BLOOD SPECIMENOrdering Facility: Address: [address] [place] [address] Performed By: #### 5 7021-8 ####[facility] [id number] [place] [address] [place] Neutrophils (Bld) [#/Vol] 2.94 10*3/uL Normal 1.45-7.50 [facility] Comment on above: Order Comment: Speci men Type: BLOOD SPECIMENOrdering Facility: Address: [address] [place] [address] Performed By: #### 5 7021-8 ####[facility] [id number] [place] [address] [place] Neutrophils/100 WBC (Bld) 54.3 % Normal [facility] Comment on above: Order Comment: Speci men Type: BLOOD SPECIMENOrdering Facility: Address: [address] [place] [address] Performed By: #### 5 7021-8 ####[facility] [id number] [place] [address] [place] Nucleated RBC (Bld) [#/Vol] 10*3/uL Normal <0.01 [facility] Comment on above: Order Comment: Speci men Type: BLOOD SPECIMENOrdering Facility: Address: [address] [place] [address] Performed By: #### 5 7021-8 ####[facility] [id number] [place] [address] [place] Nucleated RBC/100 WBC (Bld) [Ratio] 0.0 /100 WBC Normal [facility] Comment on above: Order Comment: Speci men Type: BLOOD SPECIMENOrdering Facility: Address: [address] [place] [address] Performed By: #### 5 7021-8 ####[facility] CHELANCLIA [id number] [place] [address] [place] Platelet mean volume (Bld) [Entitic vol] 11.3 fL Normal 9.0-12.7 [facility] Comment on above: Order Comment: Speci men Type: BLOOD SPECIMENOrdering Facility: Address: [address] [place] [address] Performed By: #### 5 7021-8 ####[facility] CLINICNCA [id number] [place] [address] [place] Platelets (Bld) [#/Vol] 120 10*3/uL Low 150-400 [facility] Comment on above: Order Comment: Speci men Type: BLOOD SPECIMENOrdering Facility: Address: [address] [place] [address] Result Comment: No c lot detected. Performed By: #### 5 7021-8 ####[facility] CLINICXIOMARAA [id number] [place] [address] [place] RBC (Bld) [#/Vol] 4.80 10*6/uL Normal 3.90-5.20 [facility] Comment on above: Order Comment: Speci men Type: BLOOD SPECIMENOrdering Facility: Address: [address] [place] [address] Performed By: #### 5 7021-8 ####[facility] CLINICNCA [id number] [place] [address] [place] WBC (Bld) [#/Vol] 5.42 10*3/uL Normal 3.70-11.00 [facility] Comment on above: Order Comment: Speci men Type: BLOOD SPECIMENOrdering Facility: Address: [address] [place] [address] Performed By: #### 5 7021-8 ####[facility] MILLTOWNCLIA [id number] [place] [address] [place] Comprehensive metabolic 2000 panelon 07-17-2024 Albumin [Mass/Vol] 4.6 g/dL Normal 3.9-4.9 [facility] Comment on above: Order Comment: Speci men Type: BLOOD SPECIMENOrdering Facility: Address: [address] [place] [address] Performed By: #### 2 4323-8 ####[facility] MILLWNCLIA [id number] [place] [address] [place] ALP [Catalytic activity/Vol] 199 U/L High 34-123 [facility] Comment on above: Order Comment: Speci men Type: BLOOD SPECIMENOrdering Facility: Address: [address] [place] [address] Performed By: #### 2 4323-8 ####[facility] CLINICNCLIA [id number] [address] [place] ALT [Catalytic activity/Vol] 25 U/L Normal 7-38 [facility] Comment on above: Order Comment: Speci men Type: BLOOD SPECIMENOrdering Facility: Address: [address] [place] [address] Performed By: #### 2 4323-8 ####[facility] MILLTOWNCLIA [id number] [place] [address] [place] Anion gap [Moles/Vol] 8 mmol/L Normal 8-15 [facility] Comment on above: Order Comment: Speci men Type: BLOOD SPECIMENOrdering Facility: Address: [address] [place] [address] Performed By: #### 2 4323-8 ####[facility] CL[facility]ICNCLIA [id number] [place] [id number] [place] AST [Catalytic activity/Vol] 29 U/L Normal 13-35 [facility] Comment on above: Order Comment: Speci men Type: BLOOD SPECIMENOrdering Facility: Address: [address] [place] [address] Performed By: #### 2 4323-8 ####[facility]ITALWNCLIA [id number] [place] [address] [place] Bilirubin [Mass/Vol] 0.2 mg/dL Normal 0.2-1.3 [facility] Comment on above: Order Comment: Speci men Type: BLOOD SPECIMENOrdering Facility: Address: [address] [place] [address] Performed By: #### 2 4323-8 ####[facility] CL[facility]ICNCLIA [id number] [place] [address] [place] Calcium [Mass/Vol] 9.3 mg/dL Normal 8.5-10.2 [facility] Comment on above: Order Comment: Speci men Type: BLOOD SPECIMENOrdering Facility: Address: [address] [place] [address] Performed By: #### 2 4323-8 ####[facility] CL[facility]ICNCLIA [id number] [place] [address] [place] Chloride [Moles/Vol] 102 mmol/L Normal 98-107 [facility] Comment on above: Order Comment: Speci men Type: BLOOD SPECIMENOrdering Facility: Address: [address] [place], [place] [address] Performed By: #### 2 4323-8 ####[facility] CL[facility]ICNCLIA [id number] [place] [address] [place] CO2 [Moles/Vol] 29 mmol/L Normal 22-30 [facility] Comment on above: Order Comment: Speci men Type: BLOOD SPECIMENOrdering Facility: Address: [address] [place] [address] Performed By: #### 2 4323-8 ####[facility] [id number] [address] [place] Creatinine [Mass/Vol] 0.61 mg/dL Normal 0.58-0.96 [facility] Comment on above: Order Comment: Speci men Type: BLOOD SPECIMENOrdering Facility: Address: [address] [place] [address] Performed By: #### 2 4323-8 ####[facility] CLINICNCLI [id number] [place] [address] [place] Creatinine and Glomerular filtration rate.predicted panel (S/P/Bld) 121 mL/min/1.73m??? Normal >=60 [facility] Comment on above: Order Comment: Speci men Type: BLOOD SPECIMENOrdering Facility: Address: [address] [place] [address] Result Comment: Qing mated Glomerular Filtration Rate (eGFR) is calculated using the 2020 CKD-EPI creatinine equation. This equation utilizes serum creatinine, sex, and age as parameters. The creatinine assay has traceable calibration to isotope dilution-mass spectrometry. Refer to KDIGO guidelines for clinical interpretation. In patients with unstable renal function, e.g. those with acute kidney injury, the eGFR may not accurately reflect actual GFR. Performed By: #### 2 4323-8 ####[facility]IC[facility]CL[facility] [id number] [place] [address] [place] Glucose [Mass/Vol] 84 mg/dL Normal 74-99 [facility] Comment on above: Order Comment: Speci men Type: BLOOD SPECIMENOrdering Facility: Address: [address] [place] [address] Result Comment: The [place] [employer] (ADA) provides guidance for cutoff values for fasting glucose and random glucose. The ADA defines fasting as no caloric intake for at least 8 hours. Fasting plasma glucose results between 100 to 125 mg/dL indicate increased risk for diabetes (prediabetes). Fasting plasma glucose results greater than or equal to 126 mg/dL meet the criteria for diagnosis of diabetes. In the absence of unequivocal hyperglycemia, results should be confirmed by repeat testing. In a patient with classic symptoms of hyperglycemia or hyperglycemic crisis, random plasma glucose results greater than or equal to 200 mg/dL meet the criteria for diagnosis of diabetes. Reference: Standards of Medical Care in Diabetes 2016, [place] [employer]. Diabetes Care. 2016.39(Suppl 1). Performed By: #### 2 4323-8 ####[facility]ITALWRILIA [id number] [place] [address] [place] Potassium [Moles/Vol] 4.1 mmol/L Normal 3.7-5.1 [facility] Comment on above: Order Comment: Speci men Type: BLOOD SPECIMENOrdering Facility: Address: [address] [place] [address] Performed By: #### 2 4323-8 ####[facility] CENTERLIA [id number] [place] [address] [place] Protein [Mass/Vol] 7.5 g/dL Normal 6.3-8.0 [facility] Comment on above: Order Comment: Carmelitai men Type: BLOOD SPECIMENOrdering Facility: Address: [address] [place] [address] Performed By: #### 2 4323-8 ####[facility] MED[facility] CENTERLIA [id number] [place] [address] [place] Sodium [Moles/Vol] 139 mmol/L Normal 136-144 [facility] Comment on above: Order Comment: Speci men Type: BLOOD SPECIMENOrdering Facility: Address: [address] [place] [address] Performed By: #### 2 4323-8 ####[facility] CENTERLIA [id number] [place] [address] [place] Urea nitrogen [Mass/Vol] 13 mg/dL Normal 7-21 [facility] Comment on above: Order Comment: Speci men Type: BLOOD SPECIMENOrdering Facility: Address: [address] [place] [address] Performed By: #### 2 4323-8 ####[facility] [id number] [place] [address] [place] CBC W Auto Differential pane l (Bld)on 06-19-2024 Basophils (Bld) [#/Vol] 0.04 10*3/uL Normal <0.11 [facility] Comment on above: Order Comment: Speci men Type: BLOOD SPECIMENOrdering Facility: Address: [address] [place] [address] Performed By: #### 5 7021-8 ####[facility] LABCLIA [id number] [place] [address] [place] Basophils/100 WBC (Bld) 0.6 % Normal [facility] Comment on above: Order Comment: Speci men Type: BLOOD SPECIMENOrdering Facility: Address: [address] [place] [address] Performed By: #### 5 7021-8 ####[facility] LABCLIA [id number] [place] [address] [place] Differential cell count method Nom (Bld) Auto Normal [facility] Comment on above: Order Comment: Speci men Type: BLOOD SPECIMENOrdering Facility: Address: [address] [place] [address] Performed By: #### 5 7021-8 ####[facility] LABCLIA [id number] [place] [address] [place] Eosinophils (Bld) [#/Vol] 0.12 10*3/uL Normal <0.46 [facility] Comment on above: Order Comment: Speci men Type: BLOOD SPECIMENOrdering Facility: Address: [address] [place] [address] Performed By: #### 5 7021-8 ####[facility] LABCLIA [id number] [place] [address] [place] Eosinophils/100 WBC (Bld) 1.8 % Normal [facility] Comment on above: Order Comment: Speci men Type: BLOOD SPECIMENOrdering Facility: Address: [address] [place] [address] Performed By: #### 5 7021-8 ####[facility] LABCLIA [id number] [place] [address] [place] Erythrocyte distribution width (RBC) [Ratio] 13.4 % Normal 11.5-15.0 [facility] Comment on above: Order Comment: Speci men Type: BLOOD SPECIMENOrdering Facility: Address: [address] [place] [address] Performed By: #### 5 7021-8 ####[facility] LABIA [id number] [place] [address] [place] Hematocrit (Bld) [Volume fraction] 40.6 % Normal 36.0-46.0 [facility] Comment on above: Order Comment: Speci men Type: BLOOD SPECIMENOrdering Facility: Address: [address] [place] [address] Performed By: #### 5 7021-8 ####[facility] LABCLIA [id number] [place] [address] [place] Hemoglobin (Bld) [Mass/Vol] 13.4 g/dL Normal 11.5-15.5 [facility] Comment on above: Order Comment: Speci men Type: BLOOD SPECIMENOrdering Facility: Address: [address] [place] [address] Performed By: #### 5 7021-8 ####[facility] LABCLIA [id number] [place] [address] [place] Immature granulocytes (Bld) [#/Vol] 10*3/uL Normal <0.10 [facility] Comment on above: Order Comment: Speci men Type: BLOOD SPECIMENOrdering Facility: Address: [address] [place] [address] Performed By: #### 5 7021-8 ####[facility] LABCLIA [id number] [place] [address] [place] Immature granulocytes/100 WBC (Bld) 0.1 % Normal [facility] Comment on above: Order Comment: Speci men Type: BLOOD SPECIMENOrdering Facility: Address: [address] [place] [address] Performed By: #### 5 7021-8 ####[facility] LABCLIA [id number] [place] [address] [place] Lymphocytes (Bld) [#/Vol] 2.03 10*3/uL Normal 1.00-4.00 [facility] Comment on above: Order Comment: Speci men Type: BLOOD SPECIMENOrdering Facility: Address: [address] [place] [address] Performed By: #### 5 7021-8 ####[facility] LABCLIA [id number] [place] [address] [place] Lymphocytes/100 WBC (Bld) 30.0 % Normal [facility] Comment on above: Order Comment: Speci men Type: BLOOD SPECIMENOrdering Facility: Address: [address] [place] [address] Performed By: #### 5 7021-8 ####[facility] LABCLIA [id number] [place] [address] [place] MCH (RBC) [Entitic mass] 28.5 pg Normal 26.0-34.0 [facility] Comment on above: Order Comment: Speci men Type: BLOOD SPECIMENOrdering Facility: Address: [address] [place] [address] Performed By: #### 5 7021-8 ####[facility] LABCLIA [id number] [place] [address] [place] MCHC (RBC) [Mass/Vol] 33.0 g/dL Normal 30.5-36.0 [facility] Comment on above: Order Comment: Speci men Type: BLOOD SPECIMENOrdering Facility: Address: [address] [place] [address] Performed By: #### 5 7021-8 ####[facility] LABCLIA [id number] [place] [address] [place] MCV (RBC) [Entitic vol] 86.2 fL Normal 80.0-100.0 [facility] Comment on above: Order Comment: Speci men Type: BLOOD SPECIMENOrdering Facility: Address: [address] [place] [address] Performed By: #### 5 7021-8 ####[facility] LABCLIA [id number] [place] [address] [place] Monocytes (Bld) [#/Vol] 0.60 10*3/uL Normal <0.87 [facility] Comment on above: Order Comment: Speci men Type: BLOOD SPECIMENOrdering Facility: Address: [address] [place] [address] Performed By: #### 5 7021-8 ####[facility] LABCLIA [id number] [place] [address] [place] Monocytes/100 WBC (Bld) 8.9 % Normal [facility] Comment on above: Order Comment: Speci men Type: BLOOD SPECIMENOrdering Facility: Address: [address] [place] [address] Performed By: #### 5 7021-8 ####[facility] LABCLIA [id number] [place] [address] [place] Neutrophils (Bld) [#/Vol] 3.97 10*3/uL Normal 1.45-7.50 [facility] Comment on above: Order Comment: Speci men Type: BLOOD SPECIMENOrdering Facility: Address: [address] [place] [address] Performed By: #### 5 7021-8 ####[facility] LABCLIA [id number] [place] [address] [place] Neutrophils/100 WBC (Bld) 58.6 % Normal [facility] Comment on above: Order Comment: Speci men Type: BLOOD SPECIMENOrdering Facility: Address: [address] [place] [address] Performed By: #### 5 7021-8 ####[facility] LABCLIA [id number] [place] [address] [place] Nucleated RBC (Bld) [#/Vol] 10*3/uL Normal <0.01 [facility] Comment on above: Order Comment: Speci men Type: BLOOD SPECIMENOrdering Facility: Address: [address] [place] [address] Performed By: #### 5 7021-8 ####[facility] LABCLIA [id number] [place] [address] [place] Nucleated RBC/100 WBC (Bld) [Ratio] 0.0 /100 WBC Normal [facility] Comment on above: Order Comment: Speci men Type: BLOOD SPECIMENOrdering Facility: Address: [address] [place] [address] Performed By: #### 5 7021-8 ####[facility] LABCLIA [id number] [place] [address] [place] Platelet mean volume (Bld) [Entitic vol] 12.1 fL Normal 9.0-12.7 [facility] Comment on above: Order Comment: Speci men Type: BLOOD SPECIMENOrdering Facility: Address: [address] [place] [address] Performed By: #### 5 7021-8 ####[facility] LABCLIA [id number] [place] [address] [place] Platelets (Bld) [#/Vol] 124 10*3/uL Low 150-400 [facility] Comment on above: Order Comment: Speci men Type: BLOOD SPECIMENOrdering Facility: Address: [address] [place] [address] Performed By: #### 5 7021-8 ####[facility] LABIA [id number] [place] [address] [place] RBC (Bld) [#/Vol] 4.71 10*6/uL Normal 3.90-5.20 [facility] Comment on above: Order Comment: Speci men Type: BLOOD SPECIMENOrdering Facility: Address: [address] [place] [address] Performed By: #### 5 7021-8 ####[facility] LABIA [id number] [place] [address] [place] WBC (Bld) [#/Vol] 6.77 10*3/uL Normal 3.70-11.00 [facility] Comment on above: Order Comment: Speci men Type: BLOOD SPECIMENOrdering Facility: Address: [address] [place] [address] Performed By: #### 5 7021-8 ####[facility] LABIA [id number] [place] [address] [place] Comprehensive metabolic 2000 panelon 06-19-2024 Albumin [Mass/Vol] 4.6 g/dL Normal 3.9-4.9 [facility] Comment on above: Order Comment: Speci men Type: BLOOD SPECIMENOrdering Facility: Address: [address] [place] [address] Performed By: #### 2 4323-8 ####[facility] LABCLIA [id number] [place] [address] [place] ALP [Catalytic activity/Vol] 201 U/L High 34-123 [facility] Comment on above: Order Comment: Speci men Type: BLOOD SPECIMENOrdering Facility: Address: [address] [place] [address] Performed By: #### 2 4323-8 ####[facility] LABCLIA [id number] [place] [address] [place] ALT [Catalytic activity/Vol] 21 U/L Normal 7-38 [facility] Comment on above: Order Comment: Speci men Type: BLOOD SPECIMENOrdering Facility: Address: [address] [place] [address] Performed By: #### 2 4323-8 ####[facility] LABCLIA [id number] [place] [address] [place] Anion gap [Moles/Vol] 11 mmol/L Normal 8-15 [facility] Comment on above: Order Comment: Speci men Type: BLOOD SPECIMENOrdering Facility: Address: [address] [place] [address] Performed By: #### 2 4323-8 ####[facility] LABCLIA [id number] [place] [address] [place] AST [Catalytic activity/Vol] 26 U/L Normal 13-35 [facility] Comment on above: Order Comment: Speci men Type: BLOOD SPECIMENOrdering Facility: Address: [address] [place] [address] Performed By: #### 2 4323-8 ####[facility] LABCLIA [id number] [place] [address] [place] Bilirubin [Mass/Vol] 0.3 mg/dL Normal 0.2-1.3 [facility] Comment on above: Order Comment: Speci men Type: BLOOD SPECIMENOrdering Facility: Address: [address] [place] [address] Performed By: #### 2 4323-8 ####[facility] LABCLIA [id number] [place] [address] [place] Calcium [Mass/Vol] 9.3 mg/dL Normal 8.5-10.2 [facility] Comment on above: Order Comment: Speci men Type: BLOOD SPECIMENOrdering Facility: Address: [address] [place] [address] Performed By: #### 2 4323-8 ####[facility] LABCLIA [id number] [place] [address] [place] Chloride [Moles/Vol] 102 mmol/L Normal 98-107 [facility] Comment on above: Order Comment: Speci men Type: BLOOD SPECIMENOrdering Facility: Address: [address] [place] [address] Performed By: #### 2 4323-8 ####[facility] LABCLIA [id number] [place] [address] [place] CO2 [Moles/Vol] 27 mmol/L Normal 22-30 [facility] Comment on above: Order Comment: Speci men Type: BLOOD SPECIMENOrdering Facility: Address: [address] [place] [address] Performed By: #### 2 4323-8 ####[facility] LABCLIA [id number] [place] [address] [place] Creatinine [Mass/Vol] 0.78 mg/dL Normal 0.58-0.96 [facility] Comment on above: Order Comment: Speci men Type: BLOOD SPECIMENOrdering Facility: Address: [address] [place] [address] Performed By: #### 2 4323-8 ####[facility] LABCLIA [id number] [place] [address] [place] Creatinine and Glomerular filtration rate.predicted panel (S/P/Bld) 103 mL/min/1.73m??? Normal >=60 [facility] Comment on above: Order Comment: Speci yadira Type: BLOOD SPECIMENOrdering Facility: Address: [address] [place] [address] Result Comment: Qing mated Glomerular Filtration Rate (eGFR) is calculated using the 2020 CKD-EPI creatinine equation. This equation utilizes serum creatinine, sex, and age as parameters. The creatinine assay has traceable calibration to isotope dilution-mass spectrometry. Refer to KDIGO guidelines for clinical interpretation. In patients with unstable renal function, e.g. those with acute kidney injury, the eGFR may not accurately reflect actual GFR. Performed By: #### 2 4323-8 ####[facility] LABIA [id number] [place] [address] [place] Glucose [Mass/Vol] 117 mg/dL High 74-99 [facility] Comment on above: Order Comment: Iain may Type: BLOOD SPECIMENOrdering Facility: Address: [address] [place] [address] Result Comment: The [place] [employer] (ADA) provides guidance for cutoff values for fasting glucose and random glucose. The ADA defines fasting as no caloric intake for at least 8 hours. Fasting plasma glucose results between 100 to 125 mg/dL indicate increased risk for diabetes (prediabetes). Fasting plasma glucose results greater than or equal to 126 mg/dL meet the criteria for diagnosis of diabetes. In the absence of unequivocal hyperglycemia, results should be confirmed by repeat testing. In a patient with classic symptoms of hyperglycemia or hyperglycemic crisis, random plasma glucose results greater than or equal to 200 mg/dL meet the criteria for diagnosis of diabetes. Reference: Standards of Medical Care in Diabetes 2016, [place] [employer]. Diabetes Care. 2016.39(Suppl 1). Performed By: #### 2 4323-8 ####[facility] LABCLIA [id number] [place] [id number] [place] Potassium [Moles/Vol] 3.8 mmol/L Normal 3.7-5.1 [facility] Comment on above: Order Comment: Speci men Type: BLOOD SPECIMENOrdering Facility: Address: [address] [place] [address] Performed By: #### 2 4323-8 ####[facility] LABCLIA [id number] [place] [address] [place] Protein [Mass/Vol] 7.7 g/dL Normal 6.3-8.0 [facility] Comment on above: Order Comment: Speci men Type: BLOOD SPECIMENOrdering Facility: Address: [address] [place] [address] Performed By: #### 2 4323-8 ####[facility] LABCLIA [id number] [place] [address] [place] Sodium [Moles/Vol] 140 mmol/L Normal 136-144 [facility] Comment on above: Order Comment: Speci men Type: BLOOD SPECIMENOrdering Facility: Address: [address] [place] [address] Performed By: #### 2 4323-8 ####[facility] LABCLIA [id number] [place] [address] [place] Urea nitrogen [Mass/Vol] 13 mg/dL Normal 7-21 [facility] Comment on above: Order Comment: Speci men Type: BLOOD SPECIMENOrdering Facility: Address: [address] [place] [address] Performed By: #### 2 4323-8 ####[facility] LABCLIA [id number] [place] [address] [place] CBC W Auto Differential pane l (Bld)on 05-22-2024 Basophils (Bld) [#/Vol] 0.04 10*3/uL Normal <0.11 [facility] Comment on above: Order Comment: Speci men Type: BLOOD SPECIMENOrdering Facility: Address: [address] [place] [address] Performed By: #### 5 7021-8 ####[facility] SHYLAWNCLIA [id number] [place] [address] [place] Basophils/100 WBC (Bld) 0.7 % Normal [facility] Comment on above: Order Comment: Speci men Type: BLOOD SPECIMENOrdering Facility: Address: [address] [place] [address] Performed By: #### 5 7021-8 ####[facility] JESUWATERTOWNNCLIA [id number] [place] [address] [place] Differential cell count method Nom (Bld) Auto Normal [facility] Comment on above: Order Comment: Speci men Type: BLOOD SPECIMENOrdering Facility: Address: [address] [place] [address] Performed By: #### 5 7021-8 ####[facility] JESUWNCLIA [id number] [place] [address] [place] Eosinophils (Bld) [#/Vol] 0.11 10*3/uL Normal <0.46 [facility] Comment on above: Order Comment: Speci men Type: BLOOD SPECIMENOrdering Facility: Address: [address] [place] [address] Performed By: #### 5 7021-8 ####[facility] MILLTOWNCLIA [id number] [place] [address] [place] Eosinophils/100 WBC (Bld) 1.9 % Normal [facility] Comment on above: Order Comment: Speci men Type: BLOOD SPECIMENOrdering Facility: Address: [address] [place] [address] Performed By: #### 5 7021-8 ####[facility] MILLWNCLIA [id number] [place] [address] [place] Erythrocyte distribution width (RBC) [Ratio] 13.6 % Normal 11.5-15.0 [facility] Comment on above: Order Comment: Speci men Type: BLOOD SPECIMENOrdering Facility: Address: [address] [place] [address] Performed By: #### 5 7021-8 ####[facility] [id number] [place] [address] [place] Hematocrit (Bld) [Volume fraction] 41.6 % Normal 36.0-46.0 [facility] Comment on above: Order Comment: Speci men Type: BLOOD SPECIMENOrdering Facility: Address: [address] [place] [address] Performed By: #### 5 7021-8 ####[facility] [id number] [place] [address] [place] Hemoglobin (Bld) [Mass/Vol] 14.0 g/dL Normal 11.5-15.5 [facility] Comment on above: Order Comment: Speci men Type: BLOOD SPECIMENOrdering Facility: Address: [address] [place] [address] Performed By: #### 5 7021-8 ####[facility] [id number] [place] [address] [place] Immature granulocytes (Bld) [#/Vol] 10*3/uL Normal <0.10 [facility] Comment on above: Order Comment: Speci men Type: BLOOD SPECIMENOrdering Facility: Address: [address] [place] [address] Performed By: #### 5 7021-8 ####[facility]ICNCLI [id number] [place] [address] [place] Immature granulocytes/100 WBC (Bld) 0.2 % Normal [facility] Comment on above: Order Comment: Speci men Type: BLOOD SPECIMENOrdering Facility: Address: [address] [place] [address] Performed By: #### 5 7021-8 ####[facility] [id number] [place] [address] [place] Lymphocytes (Bld) [#/Vol] 1.84 10*3/uL Normal 1.00-4.00 [facility] Comment on above: Order Comment: Speci men Type: BLOOD SPECIMENOrdering Facility: Address: [address] [place] [address] Performed By: #### 5 7021-8 ####[facility] [id number] [place] [address] [place] Lymphocytes/100 WBC (Bld) 31.8 % Normal [facility] Comment on above: Order Comment: Speci men Type: BLOOD SPECIMENOrdering Facility: Address: [address] [place] [address] Performed By: #### 5 7021-8 ####[facility] [id number] [place] [address] [place] MCH (RBC) [Entitic mass] 28.9 pg Normal 26.0-34.0 [facility] Comment on above: Order Comment: Speci men Type: BLOOD SPECIMENOrdering Facility: Address: [address] [place] [address] Performed By: #### 5 7021-8 ####[facility] [id number] [place] [address] [place] MCHC (RBC) [Mass/Vol] 33.7 g/dL Normal 30.5-36.0 [facility] Comment on above: Order Comment: Speci men Type: BLOOD SPECIMENOrdering Facility: Address: [address] [place] [address] Performed By: #### 5 7021-8 ####[facility] JESUDUSTYLIA [id number] [place] [address] [place] MCV (RBC) [Entitic vol] 85.8 fL Normal 80.0-100.0 [facility] Comment on above: Order Comment: Speci men Type: BLOOD SPECIMENOrdering Facility: Address: [address] [place] [address] Performed By: #### 5 7021-8 ####[facility]ICNCL[facility] [id number] [place] [address] [place] Monocytes (Bld) [#/Vol] 0.45 10*3/uL Normal <0.87 [facility] Comment on above: Order Comment: Speci men Type: BLOOD SPECIMENOrdering Facility: Address: [address] [place] [address] Performed By: #### 5 7021-8 ####[facility]AR[facility] [id number] [place] [address] [place] Monocytes/100 WBC (Bld) 7.8 % Normal [facility] Comment on above: Order Comment: Speci men Type: BLOOD SPECIMENOrdering Facility: Address: [address] [place] [address] Performed By: #### 5 7021-8 ####[facility]ICNCLIA [id number] [place] [address] [place] Neutrophils (Bld) [#/Vol] 3.33 10*3/uL Normal 1.45-7.50 [facility] Comment on above: Order Comment: Speci men Type: BLOOD SPECIMENOrdering Facility: Address: [address] [place] [address] Performed By: #### 5 7021-8 ####[facility] [id number] [place] [address] [place] Neutrophils/100 WBC (Bld) 57.6 % Normal [facility] Comment on above: Order Comment: Speci men Type: BLOOD SPECIMENOrdering Facility: Address: [address] [place] [address] Performed By: #### 5 7021-8 ####[facility] [id number] [place] [address] [place] Nucleated RBC (Bld) [#/Vol] 10*3/uL Normal <0.01 [facility] Comment on above: Order Comment: Speci men Type: BLOOD SPECIMENOrdering Facility: Address: [address] [place] [address] Performed By: #### 5 7021-8 ####[facility] [id number] [place] [address] [place] Nucleated RBC/100 WBC (Bld) [Ratio] 0.0 /100 WBC Normal [facility] Comment on above: Order Comment: Speci men Type: BLOOD SPECIMENOrdering Facility: Address: [address] [place] [address] Performed By: #### 5 7021-8 ####[facility] [id number] [place] [address] [place] Platelet mean volume (Bld) [Entitic vol] 11.8 fL Normal 9.0-12.7 [facility] Comment on above: Order Comment: Speci men Type: BLOOD SPECIMENOrdering Facility: Address: [address] [place] [address] Performed By: #### 5 7021-8 ####[facility]INICNCLI [id number] [place] [address] [place] Platelets (Bld) [#/Vol] 118 10*3/uL Low 150-400 [facility] Comment on above: Order Comment: Speci men Type: BLOOD SPECIMENOrdering Facility: Address: [address] [place] [address] Result Comment: No c lot detected. Performed By: #### 5 7021-8 ####[facility]INICNCA [id number] [place] [address] [place] RBC (Bld) [#/Vol] 4.85 10*6/uL Normal 3.90-5.20 [facility] Comment on above: Order Comment: Speci men Type: BLOOD SPECIMENOrdering Facility: Address: [address] [place] [address] Performed By: #### 5 7021-8 ####[facility]INICNCA [id number] [place] [address] [place] WBC (Bld) [#/Vol] 5.78 10*3/uL Normal 3.70-11.00 [facility] Comment on above: Order Comment: Speci men Type: BLOOD SPECIMENOrdering Facility: Address: [address] [place] [address] Performed By: #### 5 7021-8 ####[facility]ICNCLIA [id number] [place] [address] [place] Comprehensive metabolic 2000 panelon 05-22-2024 Albumin [Mass/Vol] 4.8 g/dL Normal 3.9-4.9 [facility] Comment on above: Order Comment: Speci men Type: BLOOD SPECIMENOrdering Facility: Address: [address] [place] [address] Performed By: #### 2 4323-8 ####[facility]ICNCLIA [id number] [place] [address] [place] ALP [Catalytic activity/Vol] 210 U/L High 34-123 [facility] Comment on above: Order Comment: Speci men Type: BLOOD SPECIMENOrdering Facility: Address: [address] [place] [address] Performed By: #### 2 4323-8 ####[facility]ICNCLIA [id number] [address] [place] ALT [Catalytic activity/Vol] 23 U/L Normal 7-38 [facility] Comment on above: Order Comment: Speci men Type: BLOOD SPECIMENOrdering Facility: Address: [address] [place] [address] Performed By: #### 2 4323-8 ####[facility] CENTERLIA [id number] [place] [address] [place] Anion gap [Moles/Vol] 9 mmol/L Normal 8-15 [facility] Comment on above: Order Comment: Speci men Type: BLOOD SPECIMENOrdering Facility: Address: [address] [place] [address] Performed By: #### 2 4323-8 ####[facility] CENTERLIA [id number] [place] [address] [place] AST [Catalytic activity/Vol] 31 U/L Normal 13-35 [facility] Comment on above: Order Comment: Speci men Type: BLOOD SPECIMENOrdering Facility: Address: [address] [place] [address] Performed By: #### 2 4323-8 ####[facility]ICNCLIA [id number] [place] [address] [place] Bilirubin [Mass/Vol] 0.3 mg/dL Normal 0.2-1.3 [facility] Comment on above: Order Comment: Speci men Type: BLOOD SPECIMENOrdering Facility: Address: [address] [place] [address] Performed By: #### 2 4323-8 ####[facility] MILLTOWNCLIA [id number] [place] [address] [place] Calcium [Mass/Vol] 9.5 mg/dL Normal 8.5-10.2 [facility] Comment on above: Order Comment: Speci men Type: BLOOD SPECIMENOrdering Facility: Address: [address] [place] [address] Performed By: #### 2 4323-8 ####[facility] MILLWNCLIA [id number] [place] [address] [place] Chloride [Moles/Vol] 104 mmol/L Normal 98-107 [facility] Comment on above: Order Comment: Speci men Type: BLOOD SPECIMENOrdering Facility: Address: [address] [place] [address] Performed By: #### 2 4323-8 ####[facility] [id number] [place] [address] [place] CO2 [Moles/Vol] 27 mmol/L Normal 22-30 [facility] Comment on above: Order Comment: Speci men Type: BLOOD SPECIMENOrdering Facility: Address: [address] [place] [address] Performed By: #### 2 4323-8 ####[facility] CENTERLIA [id number] [place] [address] [place] Creatinine [Mass/Vol] 0.65 mg/dL Normal 0.58-0.96 [facility] Comment on above: Order Comment: Speci men Type: BLOOD SPECIMENOrdering Facility: Address: [address] [place] [address] Performed By: #### 2 4323-8 ####[facility]ICNCLIA [id number] [place] [address] [place] Creatinine and Glomerular filtration rate.predicted panel (S/P/Bld) 119 mL/min/1.73m??? Normal >=60 [facility] Comment on above: Order Comment: Iain may Type: BLOOD SPECIMENOrdering Facility: Address: [address] [place] [address] Result Comment: Qing mated Glomerular Filtration Rate (eGFR) is calculated using the 2020 CKD-EPI creatinine equation. This equation utilizes serum creatinine, sex, and age as parameters. The creatinine assay has traceable calibration to isotope dilution-mass spectrometry. Refer to KDIGO guidelines for clinical interpretation. In patients with unstable renal function, e.g. those with acute kidney injury, the eGFR may not accurately reflect actual GFR. Performed By: #### 2 4323-8 ####[facility] [id number] [place] [address] [place] Glucose [Mass/Vol] 83 mg/dL Normal 74-99 [facility] Comment on above: Order Comment: Iain may Type: BLOOD SPECIMENOrdering Facility: Address: [address] [place] [address] Result Comment: The [place] [employer] (ADA) provides guidance for cutoff values for fasting glucose and random glucose. The ADA defines fasting as no caloric intake for at least 8 hours. Fasting plasma glucose results between 100 to 125 mg/dL indicate increased risk for diabetes (prediabetes). Fasting plasma glucose results greater than or equal to 126 mg/dL meet the criteria for diagnosis of diabetes. In the absence of unequivocal hyperglycemia, results should be confirmed by repeat testing. In a patient with classic symptoms of hyperglycemia or hyperglycemic crisis, random plasma glucose results greater than or equal to 200 mg/dL meet the criteria for diagnosis of diabetes. Reference: Standards of Medical Care in Diabetes 2016, [place] [employer]. Diabetes Care. 2016.39(Suppl 1). Performed By: #### 2 4323-8 ####[facility] [id number] [place] [address] [place] Potassium [Moles/Vol] 3.9 mmol/L Normal 3.7-5.1 [facility] Comment on above: Order Comment: Speci men Type: BLOOD SPECIMENOrdering Facility: Address: [address] [place] [address] Performed By: #### 2 4323-8 ####[facility]ITALWNCLIA [id number] [place] [address] [place] Protein [Mass/Vol] 7.6 g/dL Normal 6.3-8.0 [facility] Comment on above: Order Comment: Speci men Type: BLOOD SPECIMENOrdering Facility: Address: [address] [place] [address] Performed By: #### 2 4323-8 ####[facility] CLINICNCLIA [id number] [place] [address] [place] Sodium [Moles/Vol] 140 mmol/L Normal 136-144 [facility] Comment on above: Order Comment: Speci men Type: BLOOD SPECIMENOrdering Facility: Address: [address] [place] [address] Performed By: #### 2 4323-8 ####[facility] CLINICNCLIA [id number] [place] [address] [place] Urea nitrogen [Mass/Vol] 13 mg/dL Normal 7-21 [facility] Comment on above: Order Comment: Speci men Type: BLOOD SPECIMENOrdering Facility: Address: [address] [place] [address] Performed By: #### 2 4323-8 ####[facility]ITALWNCLIA [id number] [place] [address] [place] STREP A MOLECULAR (POC)on Procedural Control Valid [facility] Strep A (POCT) Negative Negative [facility] Surgical pathology studyOrde red By: Lina Cortes on 01-16-2024 Laboratory comment Jeffery (Report) q4zftSLkOQVps1ubEYWpzHT uZzEwMzNcZnRuYmpcdWMxIH afyyXgIFeyk2TzN1XbFtJjO FxhbnNpXGRlZmxhbmcxMDMz NNR1crSsKIYmECyvLJOtXTq zHg0zwCVqaZunYwTsEOLpd8 vlryGWOEpgNCYFNCv5g5msE RFsHqW4vQZoYQyoO7kdndUg kFEmN0Asn0NzELt6bP30DQA yyD2aeKMwWDugaoFmSlV0GD odURRhIkQ1BPDbkDEuODVoZ 1xyZWQwXGdyZWVuMFxibHVl JRX6iMucp4X2zKNpkTYnpEo zFlPfLpAtWtRBm8EiOYs6cG gxZ4BaABKuDpZ8eKAzVHEsV OhaSKLcMTTjofX7uN21VUqt jkE4rFCyj6Kuw74dj479xK2 rzIXoKRV5HDYdTKKheMAhXW RnQIA6NJMvsHOvE6okAoPkk YNfZ0QgMyYmmREkO2NtMpYq sQHbY7DqLoYzsMIrQSMxxAK 1YPiku823BHL2UyOnVC4mF0 Yzv5A5mZ9tiSZeNFQbnXZzW jMwLEKayz8upXJgUZygo7Gr XAA7iqG5uUOjaSNdRZSaOQ1 0Krfcu6DiSwixZUT4GZTqgp Ddi1Fnf4pvEeXwpvTiV3dcF 2JyZHJoZWFkXHBnYnJkcmZv r1Bvl1FqaNRqjGe6c4gbMFZ fXIEerFclg6foFLA3AUPtL6 K9qSVnv6ypHFusDVEdwNL1e wY6PIfeAKYojqF7umD4WLmj MNHhqMD9ajR0YClbOJBjQhZ 8ttG0GHcrGXYxRCP7QbKmHP Obh9IaxealWxRzr9BqzXEzM MisY45is900YYFjeoIeJ1sq bGFpblxwbGFpblxmMFxmczI 0XHFsXHBsYWluXGYxXGZzMj BcbGFuZzEwMzNcaGljaFxmM KvjRjGdUKNlKOmiM7qaYwKl LuYcBFPGlLB9yWHqh8exxqI 5cCRyBI4jSYZhmYOdrvUnn9 W2BRW8tSXcdS1imEEqRRCdp ROwacIehw04bOAqvKW6UHYl GCZlkVJmpK9gSHRzDHXGkG3 hbCBJbnRlcnByZXRhdGlvbi 4RzAFsrr8mvTVeY3JvwDpbe WVzIHRoYXQgdGhleSBoYXZl KOVybtsia9BdVCLmtTYfF9W zLM1rBPKmhw32 [facility] Work Phone: Pathology report Cancer Narrative Surgical Pathology Case: [id number] Authorizing Provider: Luz Garza DO Collected: 01/02/2024 0847 Ordering Location: [facility] Received: 01/02/[address] [place] [address] Pathologist: Lina Cortes MD Specimens: A) - ILEUM BIOPSY, ILEUM BX B) - ASCENDING COLON BIOPSY, ASCENDING COLON BX C) - COLON - TRANSVERSE BIOPSY, TRANSVERSE BX D) - COLON - DESCENDING BIOPSY, DESCENDING SIGMOID BX E) - RECTUM BIOPSY, RECTUM BX [facility] Work Phone: Pathology report final diagnosis Narrative n3jruIPtDOAevOElOCxvAlk oijMjVPGlwFIoM0PtmapfNZ csYG9bTN2zqGnabITyaSZaO TNmFdRdp6tmc111vIKgu5su RHJFmyglnNa0cMrfF86ho3P 2MoitO1mrWNDwEZtgQKFnYZ eiuCKhVJq5NOUvbTNoadKkY vFoASDebIMkeHC0WWEtYK6v smysAEvrGZppQSYzgeL7YOS jjVPgL9OqAZRgYD7henklJT W9IVmlZUTwYGK0OdVlHQSyf 4Evdeh9KcNjyEk5o0xoGXEr AOPbfXinl0mxCNZ9KDCztSW pA2kpuM2eSVYqYA9okynet9 hwEXmdLAqoXLHbjBA7okB3E VYvfGFnQ1IeeJ6jTRGaDENb mhZncWvdqI7wWpvaikArFSS bLMkSDZZKRAAJIB5DX5d4JH YyJKLreYEcKB5eKYDIACJQD ZKAJWQFO4TjU4iOQLXHRlNU RWcVMHEKV2QQALXAWEEPN6p KX8cTUORCWfJYXokPBaeuOX JccGFyZFxwYXJcYiBCLiBDT 0kMFaqjXTVTFF7JHN5FXKIM PG9BC9h6XSTjKIJhoSCpDD9 sAQYBP0pFUtfZNV6QA56OIY EWIDRCUE4IEUWYF68DEahRW Y9HBZIQNYwLDQ9RPCYkHvwW KOdQR2JlZTXrrcfgGUSeArX SOyLFH0kVDkehENOUCrJVSC JTRSwgQklPUFNZOlxiMCAgX BQmymVjOSNlN84HC32HDzBG ABMQZ5ZiS9cBJEORJvCKLCj ZFDGDL4LRSWYYRKUEY8gPO0 lDIEZJTkRJTkdTLlxwYXJcc XBgLCHtNB4iQ96GI69hHFJS V2HZMcFPMvusKGXVA5FXQHi wCqDePMhqOVYaQD4vWMCBZP 3IVHEwONTWG1POFDaRPLjwM c6mA3lUBlhUXQAATnBvNPVE UU1HU0uKDtOXRD0OFQ1MSk5 ccGFyXHBhclxiIEUuIENPTE 8MPSNNBGAXLL0lICZAX4JUL CwxBpSeBAvwVOTaZU8bZYZP UG9NISIyOLVFQ1XACJjBEEk hVa0iT8xLIxtHDQRDYyTrNV EPLV6LA0zKVtJVAB3LZJ8FI w3pgABtGEGflmXrN7OsSWCz XHBhcn0= [facility] Work Phone: Pathology report gross observation Narrative q0qxfVObYFZxoZKMUHM5SMR eAI6xcSipyKx7vAkcYIRdiz H7sAOkHSmes2wsBLQ0b3rhb bGTEpytGIEzRI0kFHuuWWXm HP9lYdPwGSUxUiGtXXYlwTD yqrHdEhCxZUYopDXofHF7SB JmQJ7tawtmYRgbTIbrBFEar mU1NTSbyJXiG6NaYQWsOK2p jxacYCV8ZYIFWbuuEe5gpHE ibCANCntcZjFcZmNoYXJzZX ZwABMqz1uxsrTUCSsdWRBCC Ob7VQl5UMEbVYIlvYWzz6Y0 UBqqb6tct4YiTLKrCXg5kV8 GZticGFN8HVGRFujrEcxdwT rzt0TfpHNmBFCtZXenaLMjS TEwMDAgXFxkYiBPVlIgIiAx RyoaDKM8HUJoMHs1YAtvTbF TGIP9Psb3NEwgKHv0EUphVO xuaCBcXHQgMSBcXGZsIFxcb iO8f6fgXIXmlIXhDCR2NIri q0ugLRuqZVL9SLLrYsTqWZN kIS1BNfEiJZHiQMW2BChoCz P4LTb0YDTCBjLpAgBaQQBlZ oJ5YgUwRHm8NNz9MTjTGuO8 OMWnLRG6GBhvOSR5QYppKWz uaCBcXHQgMiBcXHNzIDMgXF frbWLvQV9slVvsTGOcIH5XL YEbMBvzRLKrlJXZCGH0IU2j MSANClxsdHJwYXIgDQpcbHR eD8iaZtBnIwWoVCOLQqWQOU FffAHeTZBebxYbl5GvCInkr myhjZNxATdeBBU8gRMwNFVh EJJwAEGnWK98B1MycfZcETC rabFgvD2hqXe1WPdfhfSeDc FfDFAbNIRxqClveY2eLyqcs BH0FqmeFQXhIL32nLBjkIsb RSNmAWokMC39ttLwAxX4ZV1 uZINbUwMazHeis4UxHFZeY9 SwE3X2hM9dGXDlLNUvQeH8G DRhPeU3TLUiEdFipC5sRCfm OKBnIQFcjUVvNOlzABA0Hr1 azGPlBXJmjkN1i0UpKJbfOV 3fCMEhXFGrOWM1KY5duQNfW J4KCNKRPMNafrOCEuraUOXr DKBqqDEAe4VoFCXTAkqlcXl tOtSvfARmHtA0ZQMagYNtEJ P4SV1baOvhPYPsWKc1CGbxR JCaS3CfW0AuFEfgCzFdQJme ZUXbSICdDKpwZUZjB3ABGFT qBBG8OdajLOAaULi2UOz7TK 9WUyAiICAxMDAzNDcyNCIgO Tk1PEsgFI2KEAc6KzN1JwQ6 EbF9YXUpHDVpGA8cKDnddQP kAIszl2DeSvQyJOIuKTfiar T2WKHkssXtPMuwsZegqV2sE AZpC61jm1EGf5ZdBR0DRHl8 cnBhclxzYjEzNVxlcGljWHN rBOY3CN5VZHg5kaUbILPkDM PhUkSaSxfgCpDtVAj3UWNwi X1pMz1voKQwgO8sJKthShSq BWUoc2b1cFI3oNHosNQ7mIA hnBssBC7lbJAkKV7hEAzsz0 UxoGLkPD42yEOdsgAkzeKlA fOpQ9KzHDshKiEeo8qqjvVe jB9oj7zeHCAtdyVcvRKvlHf qvLVuQwRdQ52ogkBlUS8pWM Elwsyet52ffSY3aNLslHWyC UkfafKzYVMwnxtqwN3yAX79 ZQhmBO04HPlnQO9hYPMzCdH QeYFvn2KfU4juAT5kuHBjl5 LwxAt0oUWcMXkhOBZemA5bm M2mh71zAQWdm9FumRQrXlqx YXIgDQpccGFyZFxsdHJwYXI wRPaOCGHgvGPfIR2BEXXfQw PtCHEwN3ptFVVmQT7JZHMre RMWUIJ7PV9iMJngZWByA0An Z8GrdfS1DBIwqoQPXmvkToz cgKkec7JzkQOtAOVoUWkslW QgNTEwMDIgXFxkYiBPVlIgI vFcWcphKOL9QTVySYg5ZGhq N1PBTUQiZEFsDVK0EtO1KxI 2EYf5SFVXXe9xPFVmAsl5Hz F6TFR6MHS5ZLlsgkxjXRr6D DIgXFxzcyAzIFxcZmwgXFxu D08nqVBgXBSBUztflVXcnoa lcGljTmVzdERvYzEgDQpcbH WeaLVkRJYaUOQ3EIRynKKPz 0ErQhYyWHbtzVRoT6iiThQk ZnMyMCBDOiBSZWNlaXZlZCB udeBfx5YoTVqqbclgnJAdNE kyTKH3vUYhSHTsZDXxVMPkR D79Z5AkxyDbYUYnwxSfxV6g tDl4JThoqaYmEkPjCSCtARV tuKRdvrU2DTMkVXGgaR1xy5 kiLCBhcmUgbXVsdGlwbGUgZ eGiS48vhnKwAH6dOHTezmjs w50oaNT8uONfdYCuLHsscfO wUIUudoidoC9zBL06MFnwKO 15FDsyPN4hADEsAzJYkONqu 2FzA2xpFS9lxAPsq5NvdAb9 kYAcLHraLJFqbZ3zfE7ey61 pDHShv7AfeKLaCnexBUMmAK pccGFyZFxsdHJwYXIgDQpQQ XLutRZoOW7HDERnKpKyGSGq N3tpECLuLU3XFCDotGYFMYK 4ZP4fNJyjOPKgZ5ZiM1Pjla L8VJIpnzYYMoiqBmbndVerl 2VjdCBcXHNnIFxcaWQgNTEw MDIgXFxkYiBPVlIgIiAxMzg sETD7TQNrGSk7FBqfA4XQUX MvWOTiCZL1QoM1OcZ7USo5K ZOCVe8cEYXrDww0FDu8PEH0 VZP4QPjsyhrlTLl3NPKeYEv xtxIoOCxaIwmfAJkaG85qzA FyZCANClxwbGFpblxlcGljT mVzdERvYzEgDQpcbHRycGFy ZMStWBW2HDWukMMDw1BdHzK mQZvswDVkC5cjFlRrAtUgKC BEOiBSZWNlaXZlZCBpbiBmb 3NkUCggonwzgUHkHOpcXZY4 tKXsUHJzMNOaDRUePY92E5F zfqPuPCBzyjEazA0nvLo2OW wgbnVtYmVyIGFuZCAiZGVzY 4HqXAlvAzZzrMcrj7rhLOKe o9TkcXHqTEScHKVwrPn8xSU kWVLbajPwpVBziOJuk6NktF IjZCUlx9F5ZATfb7K2XPJnC 4vnDIqfmAcrZsT2wkWqPgpz mATpHeouyYWqQxIfZ25nCZB oNERmgRQxiF6sdjMpdtUzeY OltMA9RMVzeN1ymR34ntKyj jLormVoH6Lif1S5sPVeQJXr kjZIKyrrEFSpIGy9qlReqpH HVmMEU4lsJMCoWKyxl8KbGZ xlcGljWHNhMzAgDQpcZXBpY 26oy5VTd4Ome6uawQbwj4Qt lBJvIP6kpBKfSZ4Cj7mhOFZ izCSkFYS5XTttn4myBGpnJK M2EJFzObNaJHDkPR2NOjXxW ZGzQPL7QSrgAqF2CVf7NEWP NwEhAhDpJTApUqN1PxzhMUv 8GMw8TNcFZhE2YUOfZDe8Gs iaRJZ5YHfnVErlpOBpYYGqE nBfKUZwFUGaLLqjtQAxQL7c zRueRWVlWZ8SKYRpAWsqGVZ ubXLRXBA2CH3kENTBUhbkkV IfWZZft3PhNfTxBQJhL8qjN jEzNSANClxsdHJjaFxmMlxm woWsLHV2HQCkP7OwgpQpCMl gHZMaze1kaSruUQJrMIWvmN VkIHdpdGggdGhlIHBhdGllb jGxsrVuFA0fFWNuANLwt1Tk qVHebIUewH6eSABlUR5pDST xANP8kA0oNysfcWP5QmtrDG CeKI39zZRweXajGMWxAAjhZ I57cwClYlG7SR2uNKJsWeEw tWlpu9FbDQRhO8VeK3G2kT8 qGESpAFKaZfX6TQRlQHC4LB DtZmNcnM4gIShoOPLyECWjy OTvFGkmNZT0Hj3hzBVcTXFf yfY2z2FbMGbiPN9qJMUwTXV fWZB5HG7vsXDiQW1PRXBtgg AchTFaaLTzSG9JDGBCTIPql aNIJqnlYHFfHPQgnNZHy8Xh MCANClxlcGljTmVzdERvYzB 2HSMeiCRtLAT3IT7wvTamKN RsW2XgH2ApetW4SHMhdtXYW vldBCBeXN4GIJFcRRlqBV0X fQ== [facility] Work Phone: [facility] Work Phone: Abdomen/Pelvis W IV Cont ONL Yon 01-08-2024 Abdomen/Pelvis W IV Cont ONLY [facility] Imaging Services [address], [place] [address] Abdomen/Pelvis W IV Cont ONLY MR#: [id number] Acct: [id number] Name: STEPHEN SELF Rep #: [id number] : 1990 F 33 From: Remigio Brown PCP: Care Physician,No Primary Status: REG ER Study: Abdomen/Pelvis W IV Cont ONLY Date of Exam: Exam# [id number] Ordering Dr: [place] [id number] STUDY: CT ABDOMEN AND PELVIS WITH CONTRAST REASON FOR EXAM: Female, 33 years old. Abdominal pain RADIATION DOSAGE (If Supplied By Facility): CTDIvol = ( 10.83 ) mGy, DLP = ( 621.87 ) mGycm TECHNIQUE: IV 100mL Isovue-370 was administered. Transaxial images were obtained from the dome of the diaphragm to the symphysis pubis. Multiplanar coronal and sagittal images were reformatted. The protocol utilizes one or more of the following dose reduction techniques: automated exposure control, adjustment of mA and/or kV according to patient size,and/or use of iterative reconstruction technique. COMPARISON: MRI of the abdomen of 08/14/2023 FINDINGS: The visualized lung bases are unremarkable. The visualized portions of the heart are within normal limits. Partially visualized bilateral breast implants. Normal liver. Normal gallbladder and extrahepatic biliary system. Normal spleen. Normal pancreas. Normal bilateral adrenal glands. Normal visualized stomach. Thickening of distal ileal loops and terminal ileum. Fecal retention. No evidence of acute diverticulitis. Borderline thickening of the appendix. No evidence of acute appendicitis. Normal abdominal aorta. No retroperitoneal adenopathy. Normal right kidney. Normal left kidney. Normal urinary bladder. Mild free fluid in the pelvis Very small umbilical hernia containing fat. Normal osseous structures. CT/Abdomen/Pelvis W IV Cont ONLY IMPRESSION: 1. Thickening of distal small bowel loops and terminal ileum which could be due to enteritis. Inflammatory bowel disease is possible. 2. Mild free fluid in the pelvis Electronically Signed: Remigio Tinoco MD at 14:44 EDT , CC: Dr. Polly Rai, DO; No Primary Care Physician Transportation Worker: Signed Normal [facility] CBC W/Diff, Automatedon PLT EST MOD DEC Normal ADEQ [facility] Comment on above: Performed By: #### L 500.4050, L100.0100 ####[facility] [id number] [place], [place], [id number] Comprehensive Metabolic Prof ilon 01-08-2024 Albumin [Mass/Vol] 3.9 g/dL Normal 3.2-5.0 [facility] Comment on above: Performed By: #### L 500.4050, L100.0100 #### [facility] [address] [place], [place], [address] Albumin/Globulin [Mass ratio] 1.1 {ratio} Normal 0.9-2.4 [facility] Comment on above: Performed By: #### L 500.4050, L100.0100 #### [facility] [address] [place], [address] ALK P 216 U/L High 45-117 [facility] Comment on above: Performed By: #### L 500.4050, L100.0100 #### [facility] [address] [place], [address] ALT [Catalytic activity/Vol] 38 U/L Normal 13-56 [facility] Comment on above: Performed By: #### L 500.4050, L100.0100 #### [facility] [address] [place], [address] AST [Catalytic activity/Vol] 35 U/L Normal 15-37 [facility] Comment on above: Performed By: #### L 500.4050, L100.0100 #### [facility] [address] [place], [address] Bilirubin [Mass/Vol] 0.80 mg/dL Normal 0.20-1.00 [facility] Comment on above: Result Comment: For patients on eltrombopag therapy, use of Dimension Trumann TBIL is not recommended. Performed By: #### L 500.4050, L100.0100 #### [facility] [address] [place], [address] BUN/CRE 13.9 RATIO Normal 10-20 [facility] Comment on above: Performed By: #### L 500.4050, L100.0100 #### [facility] [address] [place], [address] CA,Total 9.0 mg/dL Normal 8.5-10.1 [facility] Comment on above: Performed By: #### L 500.4050, L100.0100 #### [facility] [address] [place], [address] Chloride [Moles/Vol] 108 mmol/L High 98-107 [facility] Comment on above: Performed By: #### L 500.4050, L100.0100 #### [facility] [address] [place], [address] CO2 [Moles/Vol] 28.0 mmol/L Normal 21.0-32.0 [facility] Comment on above: Performed By: #### L 500.4050, L100.0100 #### [facility] [address] [place], [address] Creatinine [Mass/Vol] 0.58 mg/dL Normal 0.55-1.02 [facility] Comment on above: Result Comment: The validity of the calculated GFR GFRAA in patients over 70 years has not been determined. Clinical correlation is essential. Performed By: #### L 500.4050, L100.0100 #### [facility] [address] [place], [address] ECRCL 140.47 ml/min Normal [facility] Comment on above: Performed By: #### L 500.4050, L100.0100 #### [facility] [address] [place], [address] EST GFR - AA 156 mL/min Normal >60 [facility] Comment on above: Result Comment: Afri can O[place]i GFR Calc Performed By: #### L 500.4050, L100.0100 #### [facility] [address] [place], [address] GAP 5 Normal 5-15 [facility] Comment on above: Performed By: #### L 500.4050, L100.0100 #### [facility] [address] [place], [address] GFR/1.73 sq M.predicted among non-blacks MDRD (S/P/Bld) [Vol rate/Area] 129 mL/min/{1.73_m2} Normal >60 [facility] Comment on above: Result Comment: Non- GFR Calc Performed By: #### L 500.4050, L100.0100 #### [facility] [address] [place], [address] Globulin (S) [Mass/Vol] 3.7 g/dL Normal 2.2-4.2 [facility] Comment on above: Performed By: #### L 500.4050, L100.0100 #### [facility] [address] [place], [address] Glucose [Mass/Vol] 91 mg/dL Normal 74-106 [facility] Comment on above: Performed By: #### L 500.4050, L100.0100 #### [facility] [address] [place], [address] Potassium [Moles/Vol] 3.9 mmol/L Normal 3.5-5.1 [facility] Comment on above: Performed By: #### L 500.4050, L100.0100 #### [facility] [address] [place], [address] Sodium [Moles/Vol] 141 mmol/L Normal 136-145 [facility] Comment on above: Performed By: #### L 500.4050, L100.0100 #### [facility] [address] [place], [address] T PROT 7.6 g/dL Normal 6.4-8.2 [facility] Comment on above: Performed By: #### L 500.4050, L100.0100 #### [facility] [address] [place], [address] Urea nitrogen [Mass/Vol] 8 mg/dL Normal 7-18 [facility] Comment on above: Performed By: #### L 500.4050, L100.0100 #### [facility] [address] [place], [address] Emergency Department Summary on 01-08-2024 Emergency Department Summary [facility] Medical Records Department [address] [place] [address] Emergency Department Summary 01/08/24 MR#: [id number] Acct: [id number] Name: STEPHEN SELF Rep #: [id number] : 1990 33 From: Polly Rai DO PCP: Care Physician,No Primary Status:DEP ER Location: ED HPI HPI - GI History of Present Illness Chief Complaint: Abd Pain Informant: patient Narrative Narrative: Patient is a 33-year-old female with history of Crohn's disease (states she is diet controlled) follows with Dr. Garza GI in [place], presenting with worsening lower abdominal pain. She states that had a colonoscopy last week was told everything was good. Started having pain today. She states it woke her from sleep at 4 AM and describes it as crampy in nature. Took ibuprofen which dulls the pain slightly. Feels bloated. States her last menstrual period was 2 years ago she is on Lupron because of her history of breast cancer. Denies any fever or chills. No nausea or vomiting. States her bowel moments have been normal. Denies any black or blood in the stool. [facility] Medical History Encounter for insertion of venous access port Wears contact lenses Wears glasses Alcohol use Non-smoker Breast cancer Bowel obstruction Back pain Crohn's disease Migraines Fatigue Anemia Stomach ulcer Home Medications ???Medication ???Instructions ???Recorded ???Last Taken ???Type anastrozole 1 mg tablet 1 mg PO DAILY 10/25/23 Unknown History leuprolide 7.5 mg intramuscular 7.5 mg IM QMONTH 10/25/23 Unknown History syringe kit (Lupron Depot) ciprofloxacin HCl 500 mg tablet 500 mg PO BID #14 TABLETS 01/08/24 Unknown Rx metronidazole 500 mg tablet 500 mg PO Q6H 7 days #28 tabs 01/08/24 Unknown Rx ondansetron 4 mg disintegrating 4 mg PO Q8H PRN PRN Nausea #10 tabs 01/08/24 Unknown Rx tablet prednisone 20 mg tablet 40 mg (2 x 20 mg) PO DAILY #28 tabs 01/08/24 Unknown Rx Allergy/AdvReac Type Severity Reaction Status Date / Time No Known Allergies Allergy Verified 01/08/24 11:44 Family History Grandmother Breast cancer Hypertension Thyroid disorder Diabetes type two Surgical History History of mastectomy, total Hx of colonoscopy Hx of wisdom tooth extraction Hx of tonsillectomy History of removal of cyst Social History Smoking Status: Never smoker alcohol intake: current alcohol intake frequency: holidays/special occasions only details: occasionally substance use type: does not use caffeine: Yes what type of physical activity do you participate in: none seatbelt use: always do you feel safe at home: Yes additional social history: - Deon ROS ROS ED Constitutional Constitutional ED: Denies chills or fever(s) Cardiovascular Cardiovascular: Denies chest pain Respiratory/Chest Respiratory/Chest: Denies cough or dyspnea Gastrointestinal Gastrointestinal: Reports abdominal pain; Denies constipation, diarrhea, melena, nausea or vomiting Musculoskeletal Musculoskeletal: Denies arthralgias or myalgias Neurologic Neurologic: Denies paresthesias or weakness Hematologic/Lymphatic Hematologic/Lymphatic: Denies easy bleeding or easy bruising EXAM Physical Exam Const Vital Signs: 01/08/24 11:43 01/08/24 13:43 01/08/24 15:00 Temperature 97.3 F L Temperature Source Temporal Pulse Rate 94 71 71 Respiratory Rate 14 16 16 Blood Pressure 124/88 H 92/54 L 111/87 H Blood Pressure Mean 100 66 95 Pulse Ox 100 100 99 Oxygen Delivery Method Room Air Room Air Room Air 01/08/24 16:39 Temperature 98.8 F Temperature Source Pulse Rate 87 Respiratory Rate 16 Blood Pressure 118/76 Blood Pressure Mean 90 Pulse Ox 100 Oxygen Delivery Method Positive well nourished and well developed General Appearance ED: well developed and NAD; Negative for pallor HEENT Reports moist mucous membranes Eyes PERRL Neck supple Resp normal respiratory effort and clear to auscultation bilaterally Cardio regular rate and regular rhythm GI non-distended Auscultation: hypoactive bowel sounds Palpation: soft and tender LLQ, RLQ and suprapubic Back/Spine no CVA tenderness Extremity full ROM Neuro Sensorium / Orientation: alert, oriented to person, oriented to place and oriented to time Motor Exam: Negative for general weakness Psych mental status grossly normal and thought process normal Skin no wounds General Skin Exam: Negative for jaundice or pallor MDM MDM MDM Narrative Medical decision making narrative: Patient is evaluated f (more content not included)... Normal [facility] ,Urineon 01-08-2024 Beta HCG ( test) Ql (U) Negative Normal [facility] Comment on above: Order Comment: CLEAN CATCH Result Comment: Very dilute urine specimens, as indicated by a low specific gravity, may not contain guest experience representative levels of hCG. If is still suspected, a first morning urine specimen should be collected 48 hours later and tested. Performed By: #### L 400.0001, L400.7600 #### [facility] [address] [place], [address] Urinalysis, Completeon 01-07 EPI,SQUAMOUS 0-5 SEEN Normal 5-10 [facility] Comment on above: Order Comment: CLEAN CATCH Performed By: #### L 400.0001, L400.7600 #### [facility] [address] [place], [address] WBC 0-5 SEEN Normal 0-5 [facility] Comment on above: Order Comment: CLEAN CATCH Performed By: #### L 400.0001, L400.7600 #### [facility] [address] [place], [address] BACTERIA 0 SEEN Normal None Seen [facility] Comment on above: Order Comment: CLEAN CATCH Performed By: #### L 400.0001, L400.7600 #### [facility] [address] [place], [address] Mucus Ql (Urine sed) 0 SEEN Normal [facility] Comment on above: Order Comment: CLEAN CATCH Performed By: #### L 400.0001, L400.7600 #### [facility] [address] [place], [address] RBC 0 SEEN Normal 0-5 [facility] Comment on above: Order Comment: CLEAN CATCH Performed By: #### L 400.0001, L400.7600 #### [facility] [address] [place], [address] COLONOSCOPYon 01-02-2024 Colonoscopy Table formatting fro m the original result was not included. Impression Mild abnormal mucosa in the proximal rectum and mid rectum, consistent with Crohn's disease; performed cold forceps biopsy Findings Mild abnormal mucosa in the proximal rectum and mid rectum, consistent with Crohn's disease; performed cold forceps biopsy for dysplasia screening. Biopsies taken from ileum, ascending colon, transverse colon, descending sigmoid colon and rectum for pathology.; SES-CD scores: rectum 5, sigmoid/descending colon 0, transverse colon 0, ascending colon 0, ileum 0, total score 5 Recommendation Follow up with me in clinic Repeat colonoscopy in 3 years Indication Crohn's disease of both small and large intestine without complication (Multi) Staff Staff Role No Staff Documented Medications meperidine PF (Demerol) injection 50 mg midazolam PF (Versed) injection 5 mg glucagon (Glucagen) injection 1 mg (Totals for administrations occurring from 0824 to 0900 on 01/02/24) Preprocedure A history and physical has been performed, and patient medication allergies have been reviewed. The patient's tolerance of previous anesthesia has been reviewed. The risks and benefits of the procedure and the sedation options and risks were discussed with the patient and mother. All questions were answered and informed consent obtained. Details of the Procedure The patient underwent moderate sedation, which was administered by the procedural nurse. The patient's blood pressure, ECG, ETCO2, heart rate, level of consciousness, oxygen and respirations were monitored throughout the procedure. A digital rectal exam was performed. A perianal exam was performed. The scope was introduced through the anus and advanced to the terminal ileum. The quality of bowel preparation was evaluated using the [place] Bowel Preparation Scale with scores of: right colon = 3, transverse colon = 3, left colon = 3. The total BBPS score was 9. Bowel prep was adequate. The patient experienced no blood loss. The procedure was not difficult. The patient tolerated the procedure well. There were no apparent adverse events. Events Procedure Events Event Event Time ENDO SCOPE IN TIME 01/02/2024 8:34 AM ENDO CECUM REACHED 01/02/2024 8:45 AM ENDO SCOPE OUT TIME 01/02/2024 8:57 AM Specimens ID Type Source Tests Collected by Time 1 : ILEUM BX Tissue ILEUM BIOPSY SURGICAL PATHOLOGY EXAM Braden Romano MA 01/02/2024 0847 2 : ASCENDING COLON BX Tissue ASCENDING COLON BIOPSY SURGICAL PATHOLOGY EXAM Braden Romano MA 01/02/2024 0849 3 : TRANSVERSE BX Tissue COLON - TRANSVERSE BIOPSY SURGICAL PATHOLOGY EXAM Braden Romano MA 01/02/2024 0853 4 : DESCENDING SIGMOID BX Tissue COLON - DESCENDING BIOPSY SURGICAL PATHOLOGY EXAM Braden Romano MA 01/02/2024 0854 5 : RECTUM BX Tissue RECTUM BIOPSY SURGICAL PATHOLOGY EXAM Braden Romano MA 01/02/2024 0855 Procedure Location [address] [address] Referring Provider Luz Garza DO Procedure Provider Luz Garza DO [facility] Comment on above: Order Comment: 4 prefers morning due to hypoglycemia. Colonoscopy studyon 01-02-20 24 Table formatting fro m the original result was not included. Impression Mild abnormal mucosa in the proximal rectum and mid rectum, consistent with Crohn's disease; performed cold forceps biopsy Findings Mild abnormal mucosa in the proximal rectum and mid rectum, consistent with Crohn's disease; performed cold forceps biopsy for dysplasia screening. Biopsies taken from ileum, ascending colon, transverse colon, descending sigmoid colon and rectum for pathology.; SES-CD scores: rectum 5, sigmoid/descending colon 0, transverse colon 0, ascending colon 0, ileum 0, total score 5 Recommendation Follow up with me in clinic Repeat colonoscopy in 3 years Indication Crohn's disease of both small and large intestine without complication (Multi) Staff Staff Role No Staff Documented Medications meperidine PF (Demerol) injection 50 mg midazolam PF (Versed) injection 5 mg glucagon (Glucagen) injection 1 mg (Totals for administrations occurring from 0824 to 0900 on 01/02/24) Preprocedure A history and physical has been performed, and patient medication allergies have been reviewed. The patient's tolerance of previous anesthesia has been reviewed. The risks and benefits of the procedure and the sedation options and risks were discussed with the patient and mother. All questions were answered and informed consent obtained. Details of the Procedure The patient underwent moderate sedation, which was administered by the procedural nurse. The patient's blood pressure, ECG, ETCO2, heart rate, level of consciousness, oxygen and respirations were monitored throughout the procedure. A digital rectal exam was performed. A perianal exam was performed. The scope was introduced through the anus and advanced to the terminal ileum. The quality of bowel preparation was evaluated using the [place] Bowel Preparation Scale with scores of: right colon = 3, transverse colon = 3, left colon = 3. The total BBPS score was 9. Bowel prep was adequate. The patient experienced no blood loss. The procedure was not difficult. The patient tolerated the procedure well. There were no apparent adverse events. Events Procedure Events Event Event Time ENDO SCOPE IN TIME 01/02/2024 8:34 AM ENDO CECUM REACHED 01/02/2024 8:45 AM ENDO SCOPE OUT TIME 01/02/2024 8:57 AM Specimens ID Type Source Tests Collected by Time 1 : ILEUM BX Tissue ILEUM BIOPSY SURGICAL PATHOLOGY EXAM Braden Romano MA 01/02/2024 0847 2 : ASCENDING COLON BX Tissue ASCENDING COLON BIOPSY SURGICAL PATHOLOGY EXAM Braden Romano MA 01/02/2024 0849 3 : TRANSVERSE BX Tissue COLON - TRANSVERSE BIOPSY SURGICAL PATHOLOGY EXAM Braden Romano MA 01/02/2024 0853 4 : DESCENDING SIGMOID BX Tissue COLON - DESCENDING BIOPSY SURGICAL PATHOLOGY EXAM Braden Romano MA 01/02/2024 0854 5 : RECTUM BX Tissue RECTUM BIOPSY SURGICAL PATHOLOGY EXAM Braden Romano MA 01/02/2024 0855 Procedure Location [address] [address] Referring Provider Luz Garza DO Procedure Provider Luz Garza DO [facility] Work Phone: [facility] Work Phone: Radiology Study observation (narrative) [facility] Work Phone: Surgical pathology studyon 0 01-02-2024 Surgical pathology study Pathology report.total SEE COMMENT Surgical Pathology Case: [id number] Authorizing Provider: Luz Garza DO Collected: 01/02/2024 0847 Ordering Location: [facility] Received: 01/02/2024 1709 [facility] Pathologist: Lina Cortes MD Specimens: A) - ILEUM BIOPSY, ILEUM BX B) - ASCENDING COLON BIOPSY, ASCENDING COLON BX C) - COLON - TRANSVERSE BIOPSY, TRANSVERSE BX D) - COLON - DESCENDING BIOPSY, DESCENDING SIGMOID BX E) - RECTUM BIOPSY, RECTUM BX Path report.final diagnosis SEE COMMENT A. ILEUM, BIOPSY: -- ILEAL MUCOSA WITH NO SIGNIFICANT PATHOLOGIC FINDINGS. B. COLON, ASCENDING, BIOPSY: -- COLONIC MUCOSA WITH NO SIGNIFICANT PATHOLOGIC FINDINGS. C. COLON, TRANSVERSE, BIOPSY: -- COLONIC MUCOSA WITH NO SIGNIFICANT PATHOLOGIC FINDINGS. D. COLON, DESCENDING, BIOPSY: -- COLONIC MUCOSA WITH NO SIGNIFICANT PATHOLOGIC FINDINGS. E. COLON, RECTUM, BIOPSY: -- COLONIC MUCOSA WITH NO SIGNIFICANT PATHOLOGIC FINDINGS. Laboratory comment By the signature on this report, the individual or group listed as making the Final Interpretation/Diagnosi s certifies that they have reviewed this case. Path report.gross observation SEE COMMENT A: Received in formalin, labeled with the patient's name and hospital number and ileum biopsy, are multiple fragments of walker, soft tissue aggregating to 0.6 x 0.3 x 0.2 cm. The specimen is submitted in toto in one cassette. PAS B: Received in formalin, labeled with the patient's name and hospital number and ascending colon biopsy, are multiple fragments of walker, soft tissue aggregating to 0.6 x 0.4 x 0.2 cm. The specimen is submitted in toto in one cassette. PAS C: Received in formalin, labeled with the patient's name and hospital number and transverse biopsy, are multiple fragments of walker, soft tissue aggregating to 0.9 x 0.5 x 0.2 cm. The specimen is submitted in toto in one cassette. PAS D: Received in formalin, labeled with the patient's name and hospital number and descending sigmoid biopsy, are multiple fragments of walker, soft tissue aggregating to 0.8 x 0.7 x 0.2 cm. The specimen is submitted in toto in one cassette. PAS E: Received in formalin, labeled with the patient's name and hospital number and rectum biopsy, are multiple fragments of walker, soft tissue aggregating to 0.6 x 0.5 x 0.2 cm. The specimen is submitted in toto in one cassette. 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 MRI showed 2 satellite lesions. 2nd look performed and [address] appeared normal. ER+VA+HER2+ [id number] Underwent neoadjuvant chemotherapy, TCHP with Dr. Ayers, Finished 03/10/22 Genetic testing was negative s/p a LEFT nipple sparing mastectomy, SLNB, RIGHT prophylactic nipple sparing mastectomy with pre-pec implant placement on 04/17/2022 Final pathology LEFT: Residual breast invasive carcinoma, 1.6 cm (closet margin < 0.2 mm to superior margin), 0/4 LN (2 intra-mammary nodes negative). ER+VA+HER2+ [id number] No PMRT was indicated HISTORY: Follows with Dr. Ayers / Steff Hernandez Completed adjuvant Kadcycla - stopped after #12 due to elevated liver enzymes Currently on Lupron shots and Arimidex She is excited to be expecting a child (sister in law is her surrogate) She underwent oocyte harvest and has 6 embryos saved She states she is motivated to carry her own child and is coming up on 2 years since her diagnosis. She is aware there may be an opportunity for her to take a temporary break from endocrine therapy for childbearing and states she would like to meet with someone who can discuss with her more. ROS: HEENT: Denies vision changes or headaches BREAST: Denies palpating any new breast masses, no breast pain, no skin changes, no nipple discharge ABD: Denies any abdominal pain or new changes in bowel habits MUSCULOSKELETAL: Denies any bone, joint or muscle pain IMAGIN09/11/23 BREAST MRI IMPRESSION: BENIGN FINDING RIGHT RECONSTRUCTED BREAST: BI-RADS 2 Postoperative changes. No MRI evidence of malignancy. LEFT RECONSTRUCTED BREAST: BI-RADS 2 Postoperative changes. No MRI evidence of malignancy. EXAMINATION: GEN alert and orientated, well nourished, calm Regional Lymph Nodes There is no concerning supraclavicular, infraclavicular or cervical lymphadenopathy. BREASTS: The patient was examined in the upright and supine position. 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 MRI showed 2 satellite lesions. 2nd look performed and [address] appeared normal. ER+VA+HER2+ [id number] Underwent neoadjuvant chemotherapy, TCHP with Dr. Ayers, Finished 03/10/22 Genetic testing was negative s/p a LEFT nipple sparing mastectomy, SLNB, RIGHT prophylactic nipple sparing mastectomy with pre-pec implant placement on 04/17/2022 Final pathology LEFT: Residual breast invasive carcinoma, 1.6 cm (closet margin < 0.2 mm to superior margin), 0/4 LN (2 intra-mammary nodes negative). ER+VA+HER2+ [id number] No PMRT was indicated Genetic testing negative PLAN:. Ms. Self will follow-up with Dr. Ayers/ Steff Hernandez as per usual - currently on Lupron/AI We did discuss the results for the POSITIVE trial and in some patients, the safety of stopping endocrine therapy for a period of time to allow for childbearing. I do not know if her situation meets the criteria, but at her request - referral to Dr. Anabelle Stubbs - our medical oncologist for young women and after breast cancer specialist to discuss She has embryos harvested and states she was not able to get but was actively trying prior to her breast cancer diagnosis - so she is interested in IVF. She has seen Dr. Frank for the embryo harvest The importance of monthly self breast exam was stressed. She has our names and numbers to stay in touch if she has any questions, concerns or problems in the interim. Paulina Null DO Breast Surgeon cc: Braden Torres DO (DrC) [address] [place] [address] [address] [place] [address] LPN 12/07/2023 3:45 PM Signed Follow up Last mammogram on: 09/2021 bilateral Results: see report Is the patien (more content not included)... Normal [facility] Chiropractic Reporton 2023 Chiropractic Report [facility] [address] [place] [address] OFFICE VISIT Date of Service: 11/27/23 MR#: [id number] Acct: [id number] Name: STEPHEN SELF Rep #: [id number] : 1990 Provider: GIANCARLO Parsons Do [facility] Age/Sex: 33/F Location: [email or web address] Status: Signed Intake Vital Signs 04/13/22 09:20 Height 5 ft 8 in Intake Visit Reasons: Back pain Chief Complaint: neck and tailbone pain Is patient in pain?: Yes (Low back, tailbone) Pain scale (1-10): 4 Allergies No Known Allergies Allergy (Verified 11/27/23 15:19) Medications ???Medication ???Instructions ???Recorded ???Confirmed ???Type anastrozole 1 mg tablet 1 mg PO DAILY 10/25/23 11/27/23 History leuprolide 7.5 mg intramuscular 7.5 mg IM QMONTH 10/25/23 11/27/23 History syringe kit (Lupron Depot) [facility] Medical History Encounter for insertion of venous access port Wears contact lenses Wears glasses Alcohol use Non-smoker Breast cancer Bowel obstruction Back pain Crohn's disease Migraines Fatigue Anemia Stomach ulcer Surgical History History of mastectomy, total Hx of colonoscopy Hx of wisdom tooth extraction Hx of tonsillectomy History of removal of cyst Family History Grandmother Breast cancer Hypertension Thyroid disorder Diabetes type two Social History Smoking Status: Never smoker alcohol intake: current alcohol intake frequency: holidays/special occasions only details: occasionally substance use type: does not use caffeine: Yes what type of physical activity do you participate in: none seatbelt use: always do you feel safe at home: Yes additional social history: - Deon HPI Back pain Chief Complaint: Low Back pain Visit Number: 5 Details: Stephen is a 33 y/o female patient here to follow up on neck and low back pain. Pt reports improvement in her neck, trap and shoulder pain since her last adjustment. She states her neck pain is likely caused by stress. She also complains of low back pain that is centralized around her tail bone. She states this pain has been aggravated by work which has required her to sit a lot. She rates her overall pain 4/10. She states it is worse after sitting in a hard chair for an extended time. She denies new injury, numbness, tingling or radiculopathy. Pt. reports chiropractic adjustments are helpful in relieving her pain and discomfort. Onset: 04/22/23 Location: neck and low back Duration: constant Aggravating or associated factors: sitting, stress Relieving factors: chiro Pain Quality: aching, dull and sharp Exam Musc General: Yes normal posture, normal gait and joint tenderness; No decreased range of motion Cervical Spine: Yes normal cervical lordosis, Yes cervical muscular tenderness (improving) bilateral diffuse , Yes cervical spasm right greater than left lower trapezius, paracervical muscles and intrinsics, left upper intrinsics and Yes misalignment misalignment: C1, C5, C6 and C7 Thoracic/Lumber: Yes thoracic and lumbar spine normal to inspection, Yes paraspinal tenderness bilaterally in the lower lumbar and on the right greater than left (upper/mid thoracic), Yes thoraco-lumbar spasm on the right greater than left (trap, levator, QL) and Yes misalignment T3, T4, L3, L4, L5 and RIL Sacroiliac joints: on the right tender to palpation Office Procedures Procedures - Chiropractic Procedures Manipulation: Cervical C2 and C6, Lumbar L4, Thoracic T3 and T7 and Pelvis RIL Manipulation: 3-4 regions Patient Response: positive Assessment and Plan Assessment and Plan (1) Back pain: Status: Acute Qualifiers: Back pain laterality: bilateral Back pain location: low back pain Chronicity: acute Sciatica presence: without sciatica Qualified Code(s): M54.50 - Low back pain, unspecified 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 (2) Segmental and somatic dysfunction of cervical region: Status: Acute (3) Segmental and somatic dysfunction of thoracic region: Status: Acute (4) Segmental and somatic dysfunction of lumbar region: Status: Acute (5) Cervicogenic headache: Status: Acute (6) Segmental and somatic dysfunction of pelvic region: Status: Acute Orders: Orders Chiropractic Treatments Today M54.50 - Low back pain, unspecified, M99.01 - Segmental and somatic dysfunction of cervical region, M99.02 - Segmental and somatic dysfunction of thoracic region, M99.03 - Segmental and somatic dysfunction of lumbar region, M99.05 - Segmental and somatic dysfunction of pelvic region, R51 - Headache Plan Patient was treated without incident. She continues to show slo (more content not included)... Normal [facility] Chiropractic Reporton 2023 Chiropractic Report [facility] [address] [place] [id number] OFFICE VISIT Date of Service: 11/22/23 MR#: [id number] Acct: [id number] Name: STEPHEN SELF Rep #: [id number] : 1990 Provider: GIANCARLO Parsons Do ssi Age/Sex: 33/F [facility] Status: Signed Intake Vital Signs 04/13/22 09:20 Height 5 ft 8 in Intake Visit Reasons: Back pain Chief Complaint: neck and tailbone pain Is patient in pain?: Yes (neck, upper and low back ) Pain scale (1-10): 3 Allergies No Known Allergies Allergy (Verified 11/22/23 17:06) Medications ???Medication ???Instructions ???Recorded ???Confirmed ???Type anastrozole 1 mg tablet 1 mg PO DAILY 10/25/23 11/22/23 History leuprolide 7.5 mg intramuscular 7.5 mg IM QMONTH 10/25/23 11/22/23 History syringe kit (Lupron Depot) [facility] Medical History Encounter for insertion of venous access port Wears contact lenses Wears glasses Alcohol use Non-smoker Breast cancer Bowel obstruction Back pain Crohn's disease Migraines Fatigue Anemia Stomach ulcer Surgical History History of mastectomy, total Hx of colonoscopy Hx of wisdom tooth extraction Hx of tonsillectomy History of removal of cyst Family History Grandmother Breast cancer Hypertension Thyroid disorder Diabetes type two Social History Smoking Status: Never smoker alcohol intake: current alcohol intake frequency: holidays/special occasions only details: occasionally substance use type: does not use caffeine: Yes what type of physical activity do you participate in: none seatbelt use: always do you feel safe at home: Yes additional social history: - Deon HPI Back pain Chief Complaint: Low Back pain Visit Number: 4 Details: Stephen is a 33 y/o female patient here to follow up on neck and low back pain. Pt. advises her last adjustment was helpful but continues to c/o tightness in her neck and across her shoulder blades and radiates into her traps bilaterally. She states her neck pain is likely caused by stress. She also complains of low back pain that is centralized around her tail bone. She rates her overall pain 3/10. She states it is worse after sitting in a hard chair. She denies new injury, numbness, tingling or radiculopathy. Pt. reports chiropractic adjustments are helpful in relieving her pain and discomfort. Onset: 04/22/23 Location: neck and low back Duration: constant Aggravating or associated factors: sitting, stress Relieving factors: chiro Pain Quality: aching, dull and sharp Exam Musc General: Yes normal posture, normal gait and joint tenderness; No decreased range of motion Cervical Spine: Yes normal cervical lordosis, Yes cervical muscular tenderness bilateral diffuse , Yes cervical spasm right greater than left lower trapezius, paracervical muscles and intrinsics, left upper intrinsics and Yes misalignment misalignment: C1, C5, C6 and C7 Thoracic/Lumber: Yes thoracic and lumbar spine normal to inspection, Yes paraspinal tenderness bilaterally in the lower lumbar and on the right greater than left (upper/mid thoracic), Yes thoraco-lumbar spasm on the right greater than left (trap, levator, QL) and Yes misalignment T3, T4, L3, L4, L5 and RIL Sacroiliac joints: on the right tender to palpation Office Procedures Procedures - Chiropractic Procedures Manipulation: Cervical C2 and C6, Lumbar L4, Thoracic T3 and T7 and Pelvis RIL Manipulation: 3-4 regions Patient Response: positive Assessment and Plan Assessment and Plan (1) Back pain: Status: Acute Qualifiers: Back pain laterality: bilateral Back pain location: low back pain Chronicity: acute Sciatica presence: without sciatica Qualified Code(s): M54.50 - Low back pain, unspecified 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 (2) Segmental and somatic dysfunction of pelvic region: Status: Acute (3) Segmental and somatic dysfunction of cervical region: Status: Acute (4) Segmental and somatic dysfunction of thoracic region: Status: Acute (5) Segmental and somatic dysfunction of lumbar region: Status: Acute (6) Cervicogenic headache: Status: Acute Orders: Orders Chiropractic Treatments 11/22/23 M54.50 - Low back pain, unspecified, M99.01 - Segmental and somatic dysfunction of cervical region, M99.02 - Segmental and somatic dysfunction of thoracic region, M99.03 - Segmental and somatic dysfunction of lumbar region, M99.05 - Segmental and somatic dysfunction of pelvic region Plan Patient was treated without incident. She is progressing slowly, however there is progress from this old injury. Cont (more content not included)... Normal [facility] Chiropractic Reporton 2023 Chiropractic Report [facility] [place] [address] OFFICE VISIT Date of Service: 11/15/23 MR#: [id number] Acct: [id number] Name: STEPHEN SELF Rep #: [id number] : 1990 Provider: GIANCARLO Licona Age/Sex: 33/F Location[place] [facility] [place] Status: Signed Intake Vital Signs 04/13/22 09:20 Height 5 ft 8 in Intake Visit Reasons: Back pain Chief Complaint: neck and tailbone pain Is patient in pain?: Yes (Neck, LBP) Pain scale (1-10): 4 Allergies No Known Allergies Allergy (Verified 11/15/23 17:14) Medications anastrozole 1 mg tablet 1 mg PO DAILY 10/25/23 [History Confirmed 11/15/23] leuprolide 7.5 mg intramuscular syringe kit (Lupron Depot) 7.5 mg IM QMONTH 10/25/23 [History Confirmed 11/15/23] PFSH Medical History Alcohol use Anemia Back pain Bowel obstruction Breast cancer Crohn's disease Encounter for insertion of venous access port Fatigue Migraines Non-smoker Stomach ulcer Wears contact lenses Wears glasses Surgical History History of mastectomy, total History of removal of cyst Hx of colonoscopy Hx of tonsillectomy Hx of wisdom tooth extraction Family History Grandmother Breast cancer Hypertension Thyroid disorder Diabetes type two Social History Smoking Status: Never smoker alcohol intake: current alcohol intake frequency: holidays/special occasions only details: occasionally substance use type: does not use caffeine: Yes what type of physical activity do you participate in: none seatbelt use: always do you feel safe at home: Yes additional social history: - Deon HPI Back pain Chief Complaint: Low Back pain Visit Number: 3 Details: Stephen is a 33 y/o female patient here for follow up of neck and low back pain. She complains of neck pain and tightness that radiates into her traps bilaterally. She states her neck pain is likely caused by stress. She also complains of low back pain that is centralized around her tail bone. She rates her pain 4/10. She states it is worse after sitting in a hard chair. She states she has been sore and very tight after her last few adjustments. She denies new injury, numbness, tingling or radiculopathy. Pt. reports chiropractic adjustments have been effective in the past. Onset: 04/22/23 Location: neck and low back Duration: constant Aggravating or associated factors: sitting, stress Relieving factors: chiro Pain Quality: aching, dull and sharp Exam Musc General: Yes normal posture, normal gait and joint tenderness; No decreased range of motion Cervical Spine: Yes normal cervical lordosis, Yes cervical muscular tenderness bilateral diffuse , Yes cervical spasm right greater than left lower trapezius, paracervical muscles and intrinsics, left upper intrinsics and Yes misalignment misalignment: C1, C5, C6 and C7 Thoracic/Lumber: Yes thoracic and lumbar spine normal to inspection, Yes paraspinal tenderness bilaterally in the lower lumbar and on the right greater than left (upper/mid thoracic), Yes thoraco-lumbar spasm on the right greater than left (trap, levator, QL) and Yes misalignment T3, T4, L3, L4, L5 and RIL Sacroiliac joints: on the right tender to palpation Office Procedures Procedures - Chiropractic Procedures Manipulation: Cervical C2 and C6, Lumbar L4, Thoracic T3 and T7 and Pelvis RIL Manipulation: 3-4 regions Patient Response: positive Assessment and Plan Assessment and Plan (1) Back pain: Status: Acute Qualifiers: Back pain laterality: bilateral Back pain location: low back pain Chronicity: acute Sciatica presence: without sciatica Qualified Code(s): M54.50 - Low back pain, unspecified 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 (2) Segmental and somatic dysfunction of cervical region: Status: Acute (3) Segmental and somatic dysfunction of thoracic region: Status: Acute (4) Segmental and somatic dysfunction of lumbar region: Status: Acute (5) Segmental and somatic dysfunction of pelvic region: Status: Acute Orders: Orders Chiropractic Treatments 11/15/23 M54.9 - Dorsalgia, unspecified, M99.01 - Segmental and somatic dysfunction of cervical region, M99.02 - Segmental and somatic dysfunction of thoracic region, M99.03 - Segmental and somatic dysfunction of lumbar region, M99.05 - Segmental and somatic dysfunction of pelvic region Plan Patient was treated without incident. She is having minimal improvement. Performed gua sha and more soft tissue work. Monitor for improvement. Plan Details Goals Barriers: Goals Decrease pain Decrease spasm Improve function Decrease inflammatio (more content not included)... Normal [facility] Chiropractic Reporton 2023 Chiropractic Report [facility] [address] [place] [address] OFFICE VISIT Date of Service: 11/01/23 MR#: [id number] Acct: [id number] Name: STEPHEN SELF Rep #: [id number] : 1990 Provider: GIANCARLO Licona Age/Sex: 33/F Location: [facility] Status: Signed Intake Vital Signs 04/13/22 09:20 Height 5 ft 8 in Intake Visit Reasons: Back pain Chief Complaint: neck and tailbone pain Is patient in pain?: Yes (Neck, LBP) Pain scale (1-10): 4 Allergies No Known Allergies Allergy (Verified 11/01/23 16:54) Medications anastrozole 1 mg tablet 1 mg PO DAILY 10/25/23 [History Confirmed 11/01/23] leuprolide 7.5 mg intramuscular syringe kit (Lupron Depot) 7.5 mg IM QMONTH 10/25/23 [History Confirmed 11/01/23] PFSH Medical History Alcohol use Anemia Back pain Bowel obstruction Breast cancer Crohn's disease Encounter for insertion of venous access port Fatigue Migraines Non-smoker Stomach ulcer Wears contact lenses Wears glasses Surgical History History of mastectomy, total History of removal of cyst Hx of colonoscopy Hx of tonsillectomy Hx of wisdom tooth extraction Family History Grandmother Breast cancer Hypertension Thyroid disorder Diabetes type two Social History Smoking Status: Never smoker alcohol intake: current alcohol intake frequency: holidays/special occasions only details: occasionally substance use type: does not use caffeine: Yes what type of physical activity do you participate in: none seatbelt use: always do you feel safe at home: Yes additional social history: - Deon HPI Back pain Chief Complaint: Low Back pain Visit Number: 2 Details: Stephen is a 33 y/o female patient here for follow up of neck and low back pain. She states she has not noticed much improvement since her last adjustment. She complains of neck pain and tightness at the base of her neck that extends into the top of her traps bilaterally. She states her neck pain is likely caused by stress. She also complains of low back pain that is centralized around her tail bone. She rates her pain 4/10. She states it is worse after sitting in a hard chair. She denies new injury, numbness, tingling or radiculopathy. Pt. reports chiropractic adjustments have been effective in the past. Onset: 04/22/23 Location: neck and low back Duration: constant Aggravating or associated factors: sitting, stress Relieving factors: chiro Pain Quality: aching, dull and sharp Exam Musc General: Yes normal posture, normal gait and joint tenderness; No decreased range of motion Cervical Spine: Yes normal cervical lordosis, Yes cervical muscular tenderness right greater than left lower , Yes cervical spasm right greater than left lower trapezius, paracervical muscles and intrinsics, left upper intrinsics and Yes misalignment misalignment: C1, C5, C6 and C7 Thoracic/Lumber: Yes thoracic and lumbar spine normal to inspection, Yes paraspinal tenderness bilaterally in the lower lumbar and on the right greater than left (upper/mid thoracic), Yes thoraco-lumbar spasm on the right greater than left (trap, levator, QL) and Yes misalignment T3, T4, L3, L4, L5 and RIL Sacroiliac joints: on the right tender to palpation Office Procedures Procedures - Chiropractic Procedures Manipulation: Cervical C2 and C6, Lumbar L4, Thoracic T3 and T7 and Pelvis RIL Manipulation: 3-4 regions Patient Response: positive Assessment and Plan Assessment and Plan (1) Back pain: Status: Acute Qualifiers: Back pain laterality: bilateral Back pain location: low back pain Chronicity: acute Sciatica presence: without sciatica Qualified Code(s): M54.50 - Low back pain, unspecified 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 (2) Segmental and somatic dysfunction of cervical region: Status: Acute (3) Segmental and somatic dysfunction of thoracic region: Status: Acute (4) Segmental and somatic dysfunction of lumbar region: Status: Acute (5) Segmental and somatic dysfunction of pelvic region: Status: Acute Orders: Orders Chiropractic Treatments 11/01/23 M54.9 - Dorsalgia, unspecified, M99.01 - Segmental and somatic dysfunction of cervical region, M99.02 - Segmental and somatic dysfunction of thoracic region, M99.03 - Segmental and somatic dysfunction of lumbar region, M99.05 - Segmental and somatic dysfunction of pelvic region Plan Patient was treated without incident. Continue care at 1x/wk/4-6wks. Plan Details Goals Barriers: Goals Decrease pain Decrease spasm Improve function Decrease inflammation Barriers Tailbone injur (more content not included)... Normal [facility] Chiropractic Reporton 2023 Chiropractic Report [facility] [address] [place] [address] OFFICE VISIT Date of Service: 10/25/23 MR#: [id number] Acct: [id number] Name: STEPHEN SELF Rep #: [id number] : 1990 Provider: GIANCARLO Licona Age/Sex: 33/F Location: [facility] [place] Status: Signed Intake Vital Signs 04/13/22 09:20 Height 5 ft 8 in Intake Visit Reasons: REEVAL Chief Complaint: neck and tailbone pain Is patient in pain?: Yes (neck and tailbone) Pain scale (1-10): 4 Allergies No Known Allergies Allergy (Verified 10/25/23 17:30) Medications anastrozole 1 mg tablet 1 mg PO DAILY 10/25/23 [History Confirmed 10/25/23] leuprolide 7.5 mg intramuscular syringe kit (Lupron Depot) 7.5 mg IM QMONTH 10/25/23 [History Confirmed 10/25/23] [facility] Medical History (Updated 10/29/23 @ 14:[address] Jaqueline Jacinto, GIANCARLO) Alcohol use Anemia Back pain Bowel obstruction Breast cancer Crohn's disease Encounter for insertion of venous access port Fatigue Migraines Non-smoker Stomach ulcer Wears contact lenses Wears glasses Surgical History (Updated 10/25/23 @ 17:33 by Alma Ortiz) History of mastectomy, total History of removal of cyst Hx of colonoscopy Hx of tonsillectomy Hx of wisdom tooth extraction Family History Grandmother Breast cancer Hypertension Thyroid disorder Diabetes type two Social History Smoking Status: Never smoker alcohol intake: current alcohol intake frequency: holidays/special occasions only details: occasionally substance use type: does not use caffeine: Yes what type of physical activity do you participate in: none seatbelt use: always do you feel safe at home: Yes additional social history: - Deon HPI REEVAL Chief Complaint: neck and low back pain Visit Number: 1 Details: Stephen is a 33 y/o female patient here for a re-evaluation of neck and low back pain. Pt. advises she had a double mastectomy after being diagnosed with breast cancer in 2021. She has been experiencing neck pain and tightness that is equal bilaterally and extends into her bilateral shoulders. She states her neck pain is likely caused by stress. She has also had a flare up of low back pain about 6 months ago. She states it is from an old snowboarding injury. She states it is worse after sitting in a hard chair. She denies new injury, numbness, tingling or radiculopathy. Pt. reports chiropractic adjustments have been effective in the past. Onset: 04/22/23 Location: neck and low back Duration: constant Aggravating or associated factors: sitting, stress Relieving factors: chiro Pain Quality: aching, dull and sharp Exam Musc General: Yes normal posture, normal gait and joint tenderness; No decreased range of motion Cervical Spine: Yes normal cervical lordosis, Yes cervical muscular tenderness bilateral lower , Yes pain with cervical ROM with lateral flexion to right and with lateral flexion to left, Yes cervical spasm right greater than left lower trapezius, paracervical muscles and intrinsics and Yes misalignment misalignment: C1, C5, C6 and C7 Thoracic/Lumber: Yes thoracic and lumbar spine normal to inspection, Yes Lasegue's sign negative, Yes straight leg raise negative bilaterally, Yes pain with thoraco-lumbar ROM with forward flexion, Yes paraspinal tenderness bilaterally in the lower lumbar and on the right greater than left (upper/mid thoracic), Yes thoraco-lumbar ROM limited with forward flexion, Yes thoraco-lumbar spasm on the right greater than left (trap, levator, QL) and Yes misalignment T3, T4, L3, L4, L5 and RIL Sacroiliac joints: on the right tender to palpation Neuro General: patient alert, patient awake, patient oriented x3, gait normal and CN's II-XI intact bilaterally Cranial Nerves: CN's II-XI intact bilaterally Cognition: normal cognition Speech: speech normal Gait: normal gait Motor: muscle tone normal throughout Sensory Exam: no sensory deficits noted Ortho Test CERVICAL Compression pain: Negative Distraction pain: relief Donald's pain: Negative Valsalvas: Negative Shoulder depression pain: Right THORACIC Kemps: Negative LUMBAR Kemps: Positive and Right Valsalvas: Negative SLR: Negative Iliac Compression: Positive and Right Office Procedures Procedures - Chiropractic Procedures Manipulation: Cervical C2 and C6, Lumbar L4, Thoracic T3 and T7 and Pelvis RIL Manipulation: 3-4 regions Traction, Mechanical: Yes Patient Response: positive Assessment and Plan Assessment and Plan (1) Segmental and somatic dysfunction of cervical region: Status: Acute (2) Segmental and somatic dysfunction of thoracic region: Status: Acute (3) Segmental and somatic dysfunction of michele (more content not included)... Normal [facility] INFLUENZA A&B MOLECULAR (POC )on 10-08-2023 Flu A (POCT) Negative Negative [facility] Flu B (POCT) Negative Negative [facility] Procedural Control Valid [facility] ALLIED HEALTHon 09-10-2023 ALLIED HEALTH HNO ID: [id number] Author: CALEB FLYNN RT(R) Service: Radiology Author Type: Technologist Type: Allied Health Filed: 09/10/2023 16:17 Note Text: Radiology Service Progress Note PATIENT NAME: Stephen Self DATE OF SERVICE: September 10, 2023 TIME: 4:17 PM PATIENT IDENTITY VERIFICATION COMPLETED USING TWO (2) IDENTIFIERS: Name and Date of confirmed by patient verbally and Name and Date of confirmed by identification band. FALL SCREENING: Has the patient had 2 falls in the last year or 1 fall with injury or currently using an Ambulatory Assistive Device (Walker, Cane, Wheelchair, Crutches, etc.)? No PATIENT GENDER DATA: Female. status: : No status: NO. PATIENT RELEVANT IMPLANT DATA REVIEWED: Yes PATIENT PRESENTS WITH AN IMPLANTABLE OR ATTACHED FOOD SERVICE UTILITY WORKER: No RADIOLOGY DEPARTMENT: MR; Exam(s) Completed: Chest: Breast PERIPHERAL IV DATA: Site assessment: Clean,Dry and Intact, Site disposition Discontinued SIGNED BY: RT Aaron(R) September 10, 2023 4:[address] [facility] MRI BREAST 3D POST PROCESSIN Braulio 09-10-2023 MRI BREAST 3D POST PROCESSING * * *Final Report* * * DATE OF EXAM: Sep 10 2023 4:20PM [facility] 0788 - MRI BREAST 3D POST PROCESSING / PROCEDURE REASON: multiple diagnoses * * * * Physician Interpretation * * * * #[id number] - MRI BREAST WO/W IVCON PAKO #[id number] - MRI BREAST 3D POST PROCESSING BREAST MRI OF BOTH BREASTS: 09/10/2023 HISTORY: 33 y/o F with a history of left breast IDC and DCIS, nuclear grade 2, and ER/VA/HER2 positive. S/p TCH-P x 6 cycles, 1 dose preoperative herceptin, and bilateral mastectomies with implant reconstruction. Negative surgical margins on the left with closest margin being the superior margin at 1 mm. Four lymph nodes were excised, all negative for metastatic disease. Multiple Diagnoses. RESULT: Comparison is made to exams dated: 09/10/2023 breast MRI - [facility], 04/17/2022 specimen, 03/08/2022 ultrasound, 03/08/2022 mammogram - [facility], 03/07/2022 breast MRI - [facility], and 11/10/2021 [facility] MRI images were obtained with a dedicated breast coil. Post processing was performed including 3D multiplanar reconstruction. MRI images were obtained with a dedicated breast coil. The patient was studied using the dedicated breast coil in the Siemens 1.5 Adia scanner. Initial axial STIR imaging was carried out followed by axial T1-weighted GRE imaging both before and after IV administration of 12 ml of Dotarem. Subsequently, subtraction imaging and 3-D reconstruction were completed on an independent workstation. An additional 4 minute high resolution sequence was performed after the first two 1 minute post-contrast sequences. Complex volumetric analysis requiring post processing was performed using a semi-automated software XMLAWacad, on an independent workstation by the physician, with images created, reviewed, and archived. RESULT: RIGHT RECONSTRUCTED BREAST: There are postoperative changes consistent with the patient's mastectomy and implant reconstruction. A single lumen prepectoral silicone implant appears intact although integrity cannot be fully assessed without dedicated sequences. No ev-implant fluid collection. No suspicious mass or nonmass enhancement. LEFT RECONSTRUCTED BREAST: There are postoperative changes consistent with the patient's mastectomy and implant reconstruction. A single lumen prepectoral silicone implant appears intact although integrity cannot be fully assessed without dedicated sequences. No ev-implant fluid collection. No suspicious mass or nonmass enhancement. BILATERAL AXILLARY AND INTERNAL MAMMARY LYNDA BASINS: No suspicious axillary or internal mammary lymph nodes. IMPRESSION: BENIGN FINDING RIGHT RECONSTRUCTED BREAST: BI-RADS 2 Postoperative changes. No MRI evidence of malignancy. LEFT RECONSTRUCTED BREAST: BI-RADS 2 Postoperative changes. No MRI evidence of malignancy. The exam was reviewed by a staff physician. SUMMARY: The patient is under the care of Dr. Paulina Null. Dex Johnson D.O. ,amf/:09/11/2023 08:33:20 Oxide Furnace Tender(s): RT Aaron(R)(M), [facility] OVERALL STUDY BIRADS: 2 Benign finding Multiple national specialty organizations have released breast cancer screening guidelines for women at average risk for developing breast cancer - guidelines that are based on both evidence and opinion, yet differ on when to start and how often to screen for breast cancer. With representation from Breast Imaging, Internal Medicine, Women's Health, Family Medicine, and Medical/Surgical Oncology, the [facility] has carefully reviewed the data and reached the following consensus: 1) All women should engage in shared decision-making with their providers to decide when to start and how often to screen; 2) All women should have the opportunity to start screening mammography at age 40; 3) For women ages 45-55, we recommend annual screening mammograms; 4) For women ages 55 and over, we support both the transition from an annual to a biennial interval if this aligns more with patient's values and preferences, or continuation with annual screening; 5) All women should discuss with their providers when to stop screening mammograms. Transportation Worker: Aydee Transcribe Date/Time: Sep 10 2023 4:23P Dictated by : KB JOHNSON, This examination was interpreted and the report reviewed and electronically signed by: DEX CHRISTENSEN MD on Sep 11 2023 8:33AM EST [id number] Normal [facility] MRI BREAST WO/W IVCON BILon 09-10-2023 MRI BREAST WO/W IVCON PAKO * * *Final Report* * * DATE OF EXAM: Sep 10 2023 4:26PM [facility] [place] 0773 - MRI BREAST WO/W IVCON PAKO / PROCEDURE REASON: multiple diagnoses * * * * Physician Interpretation * * * * #[id number] - MRI BREAST WO/W IVCON PAKO #[id number] - MRI BREAST 3D POST PROCESSING BREAST MRI OF BOTH BREASTS: 09/10/2023 HISTORY: 33 y/o F with a history of left breast IDC and DCIS, nuclear grade 2, and ER/VA/HER2 positive. S/p TCH-P x 6 cycles, 1 dose preoperative herceptin, and bilateral mastectomies with implant reconstruction. Negative surgical margins on the left with closest margin being the superior margin at 1 mm. Four lymph nodes were excised, all negative for metastatic disease. Multiple Diagnoses. RESULT: Comparison is made to exams dated: 09/10/2023 breast MRI - [facility], 04/17/2022 specimen, 03/08/2022 ultrasound, 03/08/2022 mammogram - [facility], 03/07/2022 breast MRI - [facility], and 11/10/2021 mammogram - [facility]. MRI images were obtained with a dedicated breast coil. Post processing was performed including 3D multiplanar reconstruction. MRI images were obtained with a dedicated breast coil. The patient was studied using the dedicated breast coil in the Siemens 1.5 Aida scanner. Initial axial STIR imaging was carried out followed by axial T1-weighted GRE imaging both before and after IV administration of 12 ml of Dotarem. Subsequently, subtraction imaging and 3-D reconstruction were completed on an independent workstation. An additional 4 minute high resolution sequence was performed after the first two 1 minute post-contrast sequences. Complex volumetric analysis requiring post processing was performed using a semi-automated software Dynacad, on an independent workstation by the physician, with images created, reviewed, and archived. RESULT: RIGHT RECONSTRUCTED BREAST: There are postoperative changes consistent with the patient's mastectomy and implant reconstruction. A single lumen prepectoral silicone implant appears intact although integrity cannot be fully assessed without dedicated sequences. No ev-implant fluid collection. No suspicious mass or nonmass enhancement. LEFT RECONSTRUCTED BREAST: There are postoperative changes consistent with the patient's mastectomy and implant reconstruction. A single lumen prepectoral silicone implant appears intact although integrity cannot be fully assessed without dedicated sequences. No ev-implant fluid collection. No suspicious mass or nonmass enhancement. BILATERAL AXILLARY AND INTERNAL MAMMARY LYNDA BASINS: No suspicious axillary or internal mammary lymph nodes. IMPRESSION: BENIGN FINDING RIGHT RECONSTRUCTED BREAST: BI-RADS 2 Postoperative changes. No MRI evidence of malignancy. LEFT RECONSTRUCTED BREAST: BI-RADS 2 Postoperative changes. No MRI evidence of malignancy. The exam was reviewed by a staff physician. SUMMARY: The patient is under the care of Dr. Paulina Null. Dex Johnson D.O. lp,amf/:09/11/2023 08:33:20 [employer]ide Furnace Tender(s): RT Aaron(R)(M), [facility] OVERALL STUDY BIRADS: 2 Benign finding Multiple national specialty organizations have released breast cancer screening guidelines for women at average risk for developing breast cancer - guidelines that are based on both evidence and opinion, yet differ on when to start and how often to screen for breast cancer. With representation from Breast Imaging, Internal Medicine, Women's Health, Family Medicine, and Medical/Surgical Oncology, the [facility] has carefully reviewed the data and reached the following consensus: 1) All women should engage in shared decision-making with their providers to decide when to start and how often to screen; 2) All women should have the opportunity to start screening mammography at age 40; 3) For women ages 45-55, we recommend annual screening mammograms; 4) For women ages 55 and over, we support both the transition from an annual to a biennial interval if this aligns more with patient's values and preferences, or continuation with annual screening; 5) All women should discuss with their providers when to stop screening mammograms. Transportation Worker: Aydee Transcribe Date/Time: Sep 10 2023 4:23P Dictated by : KB JOHNSON, This examination was interpreted and the report reviewed and electronically signed by: DEX CHRISTENSEN MD on Sep 11 2023 8:33AM EST [id number] Normal [facility] MRI Abd WITH and W/O Contras ton 08-14-2023 MRI Abd WITH and W/O Contrast [facility] Imaging Services [address] [place] [address] MRI Abd WITH and W/O Contrast MR#: [id number] Acct: [id number] Name: STEPHEN SELF Rep #: [id number] : 1990 F 33 From: Henri barbour MD PCP: Care Physician,No Primary Status: REG CLI Study: MRI Abd WITH and W/O Contrast Date of Exam: Exam# [id number] Ordering [place]: [place] [id number] MRI Abdomen w/ and w/out contrast 08/14/2023 6:07 PM COMPARISON: None CLINICAL HISTORY: PRIMARY SCLEROSIS CHOLANGITIS AND BILE DUCTS CROHNS DISEASE, ELEVATED LIVER ENZYMES TECHNIQUE: Multiplanar T1 and T2 weighted, diffusion and dynamic post-gadolinium images were obtained through the abdomen before and after administration of IV contrast. FINDINGS: Liver: Unremarkable Gallbladder: Unremarkable Pancreas: Unremarkable Spleen: Unremarkable Adrenal Glands: Unremarkable Kidneys: Unremarkable GI Tract: Unremarkable Lymphadenopathy: Absent Reproductive: Unremarkable Bones: No suspicious lesions MRI/MRI Abd WITH and W/O Contrast IMPRESSION: Unremarkable MRI and MRCP of the abdomen Electronically Signed: Henri Schmidt MD at 22:19 EST , CC: Dr. Luz Garza DO; No Primary Care Physician Transportation Worker: Signed Normal [facility] Surgery Visit Reporton 05-04 Surgery Visit Report [facility] [address] [place] [address] OFFICE VISIT Date of Service: 05/04/23 MR#: [id number] Acct: [id number] Name: STEPHEN SELF Rep #: [id number] : 1990 Provider: Dr. Jami hdez MD Age/Sex: 33/F Location: [facility] Status: Signed Intake Vital Signs 04/13/22 09:20 05/04/23 14:47 Height 5 ft 8 in BP 114/63 Blood Pressure Location Rt brachial Position Sitting Respiration 17 Pulse 94 Pulse Source Monitor Pulse Oximetry (%) 100 Oxygen Delivery Method room air Intake Visit Reasons: PORT REMOVAL Chief Complaint: port removal Is patient in pain?: No Allergies No Known Allergies Allergy (Verified 05/04/23 14:48) Medications lactobacillus combination no.4 3 billion cell capsule (Probiotic) 3,000 mmu cells PO DAILY 04/13/22 [History Confirmed 05/04/23] loperamide 2 mg tablet (Imodium A-D) 2 mg PO Q6H PRN 04/13/22 [History Confirmed 05/04/23] promethazine 12.5 mg tablet 12.5 mg PO Q6H PRN 04/13/22 [History Confirmed 05/04/23] PFSH Medical History (Updated 05/04/23 @ 14:[address] Jami Baker MD) Alcohol use Anemia Back pain Bowel obstruction Breast cancer Crohn's disease Encounter for insertion of venous access port Fatigue Migraines Non-smoker Stomach ulcer Wears contact lenses Wears glasses Surgical History History of removal of cyst Hx of colonoscopy Hx of tonsillectomy Hx of wisdom tooth extraction Family History Grandmother Breast cancer Hypertension Thyroid disorder Diabetes type two Social History Smoking Status: Never smoker alcohol intake: current alcohol intake frequency: holidays/special occasions only details: occasionally substance use type: does not use caffeine: Yes what type of physical activity do you participate in: none seatbelt use: always do you feel safe at home: Yes additional social history: - Deon HPI HPI HPI: Patient is a 33-year-old female here for port removal. She is here after breast cancer treatment and is done using the port. ROS General General: Yes fatigue and breast cancer; No weight change, appetite, colon cancer or weakness HEENT HEENT: No difficulty swallowing, eye injury, eye surgery, swollen glands or hoarseness Endo Endocrine: No thyroid disease, diabetes mellitus, thyroid cancer, Hair loss, heat intolerance or cold intolerance Skin Skin: No rash or changing moles Breast Breast: No left breast lump, right breast lump, nipple discharge, breast pain, abnormal mammogram, abnormal US or breast enlargement Musc Musculoskeletal: No back problems, arthritis, rheumatoid arthritis, gout or joint pain Cardio Cardiovascular: No murmur, pacemaker, heart disease, atrial fibrillation, high blood pressure, heart attack, heart stent, palpitations, shortness of breat with exertion or chest pain Psych Psychiatric: No depression, anxiety or hearing voices Resp Respiratory: No shortness of breath, No sleep apnea, No cough, No COPD, No asthma, No emphysema and No wheezing Gastro Gastrointestinal: No abdominal pain, No nausea or vomiting, No diarrhea, No constipation, No blood in stool, No acid reflux, No hemorrhoids, No ulcers, No gallbladder problem and No black,tarry stools Terrell Hematologic: No blood thinners, No blood disorders, No bleeding, No anemia and No blood clots Neuro Neurologic: No system reviewed and no additional complaints, except as documented, No as per HPI, No abnormal gait, No abnormal hearing, No abnormal movements, No abnormal speech, No behavioral changes, No burning sensations, No confusion, No convulsions, No disequilibrium, No dizziness, No localized weakness, No frequent falls, No headache(s), No lack of coordination, No loss of vision, No memory loss, No numbness, No other visual disturbances, No radicular pain, No restless legs, No sensory deficit, No syncope, No tingling, No tremor(s), No weakness and No other Office Procedures Port/Peg Provider Documentation Details:: The right chest was prepped and draped in usual sterile fashion. The prior incision was injected with local anesthetic. It was reincised using a scalpel. The port was sharply removed and then the cavity was irrigated. The incision was closed with interrupted 3-0 Vicryl sutures. Steri-Strips and a bandage were applied. Patient tolerated the procedure well. Alert [employer] Specialist Alert Billing: Yes Port/Peg Port/Pe Port Removal Procedure Time Out Time Out Informed consent given: Yes Consent signed: Yes Time out checklist: patient, procedure, site marked/identified, positioning of patient, supplies (more content not included)... Normal [facility] CBC W Auto Differential pane l (Bld)on 04-16-2023 Basophils (Bld) [#/Vol] 0.04 10*3/uL <0.11 k/uL [facility] Basophils/100 WBC (Bld) 1.0 % [facility] Differential cell count method Nom (Bld) Auto [facility] Eosinophils (Bld) [#/Vol] 0.09 10*3/uL <0.46 k/uL [facility] Eosinophils/100 WBC (Bld) 2.1 % [facility] Erythrocyte distribution width (RBC) [Ratio] 17.6 % High 11.5 - 15.0 % [facility] Hematocrit (Bld) [Volume fraction] 36.6 % 36.0 - 46.0 % [facility] Hemoglobin (Bld) [Mass/Vol] 12.3 g/dL 11.5 - 15.5 g/dL [facility] Immature granulocytes (Bld) [#/Vol] 0.03 10*3/uL <0.10 k/uL [facility] Immature granulocytes/100 WBC (Bld) 0.7 % [facility] Lymphocytes (Bld) [#/Vol] 1.57 10*3/uL 1.00 - 4.00 k/uL [facility] Lymphocytes/100 WBC (Bld) 37.4 % [facility] MCH (RBC) [Entitic mass] 28.1 pg 26.0 - 34.0 pg [facility] MCHC (RBC) [Mass/Vol] 33.6 g/dL 30.5 - 36.0 g/dL [facility] MCV (RBC) [Entitic vol] 83.6 fL 80.0 - 100.0 fL [facility] Monocytes (Bld) [#/Vol] 0.42 10*3/uL <0.87 k/uL [facility] Monocytes/100 WBC (Bld) 10.0 % [facility] Neutrophils (Bld) [#/Vol] 2.05 10*3/uL 1.45 - 7.50 k/uL [facility] Neutrophils/100 WBC (Bld) 48.8 % [facility] Nucleated RBC (Bld) [#/Vol] <0.01 k/uL [facility] Nucleated RBC/100 WBC (Bld) [Ratio] 0.0 /100 WBC [facility] Platelet mean volume (Bld) [Entitic vol] 11.1 fL 9.0 - 12.7 fL [facility] Platelets (Bld) [#/Vol] 74 10*3/uL Low 150 - 400 k/uL [facility] RBC (Bld) [#/Vol] 4.38 10*6/uL 3.90 - 5.2 0 m/uL [facility] WBC (Bld) [#/Vol] 4.20 10*3/uL 3.70 - 11. 00 k/uL [facility] Comprehensive metabolic 2000 panelon 04-16-2023 Albumin [Mass/Vol] 4.4 g/dL 3.9 - 4.9 g/dL [facility] ALP [Catalytic activity/Vol] 237 U/L High 34 - 123 U/L [facility] ALT [Catalytic activity/Vol] 30 U/L 7 - 38 U/L [facility] Anion gap [Moles/Vol] 10 mmol/L 9 - 18 mmol/L [facility] AST [Catalytic activity/Vol] 45 U/L High 13 - 35 U/L [facility] Bilirubin [Mass/Vol] 0.4 mg/dL 0.2 - 1.3 mg/dL [facility] Calcium [Mass/Vol] 9.3 mg/dL 8.5 - 10. 2 mg/dL [facility] Chloride [Moles/Vol] 106 mmol/L High 97 - 105 mmol/L [facility] CO2 [Moles/Vol] 24 mmol/L 22 - 30 mmol/L [facility] Creatinine [Mass/Vol] 0.51 mg/dL Low 0.58 - 0.96 mg/dL [facility] Estimated Glomerular Filtration Rate 127 mL/min/1.73m >=60 mL/min/1.73m [facility] Glucose [Mass/Vol] 98 mg/dL 74 - 99 mg/dL [facility] Potassium [Moles/Vol] 3.7 mmol/L 3.7 - 5.1 mmol/L [facility] Protein [Mass/Vol] 7.3 g/dL 6.3 - 8.0 g/dL Cl [facility] Sodium [Moles/Vol] 140 mmol/L 136 - 144 mmol/L [facility] Urea nitrogen [Mass/Vol] 8 mg/dL 7 - 21 mg/dL [facility] MAGNESIUM BLDon 04-16-2023 Magnesium [Mass/Vol] 1.9 mg/dL 1.7 - 2.3 mg/dL [facility] No Panel Informationon 03-22 [facility] CBC W Auto Differential pane l (Bld)on 03-16-2023 Basophils (Bld) [#/Vol] 0.04 10*3/uL <0.11 k/uL [facility] Basophils/100 WBC (Bld) 1.1 % [facility] Differential cell count method Nom (Bld) Auto [facility] Eosinophils (Bld) [#/Vol] 0.08 10*3/uL <0.46 k/uL [facility] Eosinophils/100 WBC (Bld) 2.2 % [facility] Erythrocyte distribution width (RBC) [Ratio] 21.2 % High 11.5 - 15.0 % [facility] Hematocrit (Bld) [Volume fraction] 35.9 % Low 36.0 - 46.0 % [facility] Hemoglobin (Bld) [Mass/Vol] 11.4 g/dL Low 11.5 - 15.5 g/dL [facility] Immature granulocytes (Bld) [#/Vol] <0.10 k/uL [facility] Immature granulocytes/100 WBC (Bld) 0.0 % [facility] Lymphocytes (Bld) [#/Vol] 1.49 10*3/uL 1.00 - 4.00 k/uL [facility] Lymphocytes/100 WBC (Bld) 41.6 % [facility] MCH (RBC) [Entitic mass] 27.4 pg 26.0 - 34.0 pg [facility] MCHC (RBC) [Mass/Vol] 31.8 g/dL 30.5 - 36.0 g/dL [facility] MCV (RBC) [Entitic vol] 86.3 fL 80.0 - 100.0 fL [facility] Monocytes (Bld) [#/Vol] 0.31 10*3/uL <0.87 k/uL [facility] Monocytes/100 WBC (Bld) 8.7 % [facility] Neutrophils (Bld) [#/Vol] 1.66 10*3/uL 1.45 - 7.50 k/uL [facility] Neutrophils/100 WBC (Bld) 46.4 % [facility] Nucleated RBC (Bld) [#/Vol] <0.01 k/uL [facility] Nucleated RBC/100 WBC (Bld) [Ratio] 0.0 /100 WBC [facility] Platelet mean volume (Bld) [Entitic vol] 11.6 fL 9.0 - 12.7 fL [facility] Platelets (Bld) [#/Vol] 66 10*3/uL Low 150 - 400 k/uL [facility] RBC (Bld) [#/Vol] 4.16 10*6/uL 3.90 - 5.2 0 m/uL [facility] WBC (Bld) [#/Vol] 3.58 10*3/uL Low 3.70 - 11. 00 k/uL [facility] Comprehensive metabolic 2000 panelon 03-16-2023 Albumin [Mass/Vol] 4.5 g/dL 3.9 - 4.9 g/dL [facility] ALP [Catalytic activity/Vol] 227 U/L High 34 - 123 U/L [facility] ALT [Catalytic activity/Vol] 29 U/L 7 - 38 U/L [facility] Anion gap [Moles/Vol] 9 mmol/L 9 - 18 mmol/L [facility] AST [Catalytic activity/Vol] 48 U/L High 13 - 35 U/L [facility] Bilirubin [Mass/Vol] 0.6 mg/dL 0.2 - 1.3 mg/dL [facility] Calcium [Mass/Vol] 8.8 mg/dL 8.5 - 10. 2 mg/dL [facility] Chloride [Moles/Vol] 106 mmol/L High 97 - 105 mmol/L [facility] CO2 [Moles/Vol] 23 mmol/L 22 - 30 mmol/L [facility] Creatinine [Mass/Vol] 0.52 mg/dL Low 0.58 - 0.96 mg/dL [facility] Estimated Glomerular Filtration Rate 127 mL/min/1.73m >=60 mL/min/1.73m [facility] Glucose [Mass/Vol] 116 mg/dL High 74 - 99 mg/dL [facility] Potassium [Moles/Vol] 3.4 mmol/L Low 3.7 - 5.1 mmol/L [facility] Protein [Mass/Vol] 7.2 g/dL 6.3 - 8.0 g/dL Cl [facility] Sodium [Moles/Vol] 138 mmol/L 136 - 144 mmol/L [facility] Urea nitrogen [Mass/Vol] 7 mg/dL 7 - 21 mg/dL [facility] Metabolic Prof ilon 02-16-2023 Chloride [Moles/Vol] 109 mmol/L High 98-107 [facility] Comment on above: Performed By: #### L 501.5200, L500.4050 #### [facility] [address] [place], [address] CO2 [Moles/Vol] 27.0 mmol/L Normal 21.0-32.0 [facility] Comment on above: Performed By: #### L 501.5200, [id number] #### [facility] [address] [place], [address] GAP 5 Normal 5-15 [facility] Comment on above: Performed By: #### L 501.5200, [id number] #### [facility] [address] [place], [address] Potassium [Moles/Vol] 3.7 mmol/L Normal 3.5-5.1 [facility] Comment on above: Performed By: #### L 501.5200, [id number] #### [facility] [address] [place], [address] Sodium [Moles/Vol] 141 mmol/L Normal 136-145 [facility] Comment on above: Performed By: #### L 501.5200, [id number] #### [facility] [address] [place], [address] ALK P 245 U/L High 45-117 [facility] Comment on above: Performed By: #### L 501.5200, [id number] #### [facility] [address] [place], [address] ALT [Catalytic activity/Vol] 38 U/L Normal 13-56 [facility] Comment on above: Performed By: #### L 501.5200, [id number] #### [facility] [address] [place], [address] AST [Catalytic activity/Vol] 47 U/L High 15-37 [facility] Comment on above: Performed By: #### L 501.5200, [id number] #### [facility] [address] [place], [address] Bilirubin [Mass/Vol] 0.60 mg/dL Normal 0.20-1.00 [facility] Comment on above: Result Comment: For patients on eltrombopag therapy, use of Dimension Trumann TBIL is not recommended. Performed By: #### L 501.5200, L500.4050 #### [facility] [address] [place], [address] Albumin [Mass/Vol] 3.6 g/dL Normal 3.2-5.0 [facility] Comment on above: Performed By: #### L 501.5200, [id number] #### [facility] [address] [place], [address] Albumin/Globulin [Mass ratio] 0.9 {ratio} Normal 0.9-2.4 [facility] Comment on above: Performed By: #### L 501.5200, [id number] #### [facility] [address] [place], [address] BUN/CRE 13.7 RATIO Normal 10-20 [facility] Comment on above: Performed By: #### L 501.5200, [id number] #### [facility] [address] [place], [address] CA,Total 8.8 mg/dL Normal 8.5-10.1 [facility] Comment on above: Performed By: #### L 501.5200, [id number] #### [facility] [address] [place], [address] Creatinine [Mass/Vol] 0.51 mg/dL Low 0.55-1.02 [facility] Comment on above: Result Comment: The validity of the calculated GFR GFRAA in patients over 70 years has not been determined. Clinical correlation is essential. Performed By: #### L 501.5200, L500.4050 #### [facility] [address] [place], [address] EST GFR - AA 181 mL/min Normal >60 [facility] Comment on above: Performed By: #### L 501.5200, [id number] #### [facility] [address] [place], [address] GFR/1.73 sq M.predicted among non-blacks MDRD (S/P/Bld) [Vol rate/Area] 149 mL/min/{1.73_m2} Normal >60 [facility] Comment on above: Performed By: #### L 501.5200, [id number] #### [facility] [address] [place], [address] Globulin (S) [Mass/Vol] 4.0 g/dL Normal 2.2-4.2 [facility] Comment on above: Performed By: #### L 501.5200, [id number] #### [facility] [address] [place], [address] Glucose [Mass/Vol] 90 mg/dL Normal 74-106 [facility] Comment on above: Performed By: #### L 501.5200, [id number] #### [facility] [address] [place], [address] T PROT 7.6 g/dL Normal 6.4-8.2 [facility] Comment on above: Performed By: #### L 501.5200, [id number] #### [facility] [address] [place], [address] Urea nitrogen [Mass/Vol] 7 mg/dL Normal 7-18 [facility] Comment on above: Performed By: #### L 501.5200, [id number] #### [facility] [address] [place], [address] Magnesiumon 02-16-2023 Magnesium [Mass/Vol] 1.9 mg/dL Normal 1.6-2.6 [facility] Comment on above: Performed By: #### L [id number], [id number] #### [facility] [address] [place], [address] CBC W Auto Differential pane l (Bld)on 02-13-2023 Basophils (Bld) [#/Vol] 0.04 10*3/uL <0.11 k/uL [facility] Basophils/100 WBC (Bld) 1.3 % [facility] Differential cell count method Nom (Bld) Auto [facility] Eosinophils (Bld) [#/Vol] 0.09 10*3/uL <0.46 k/uL [facility] Eosinophils/100 WBC (Bld) 3.0 % [facility] Erythrocyte distribution width (RBC) [Ratio] 17.5 % High 11.5 - 15.0 % [facility] Hematocrit (Bld) [Volume fraction] 31.4 % Low 36.0 - 46.0 % [facility] Hemoglobin (Bld) [Mass/Vol] 9.8 g/dL Low 11.5 - 15.5 g/dL [facility] Immature granulocytes (Bld) [#/Vol] <0.10 k/uL [facility] Immature granulocytes/100 WBC (Bld) 0.3 % [facility] Lymphocytes (Bld) [#/Vol] 1.28 10*3/uL 1.00 - 4.00 k/uL [facility] Lymphocytes/100 WBC (Bld) 42.5 % [facility] MCH (RBC) [Entitic mass] 24.9 pg Low 26.0 - 34.0 pg [facility] MCHC (RBC) [Mass/Vol] 31.2 g/dL 30.5 - 36.0 g/dL [facility] MCV (RBC) [Entitic vol] 79.9 fL Low 80.0 - 100.0 fL [facility] Monocytes (Bld) [#/Vol] 0.34 10*3/uL <0.87 k/uL [facility] Monocytes/100 WBC (Bld) 11.3 % [facility] Neutrophils (Bld) [#/Vol] 1.25 10*3/uL Low 1.45 - 7.50 k/uL [facility] Neutrophils/100 WBC (Bld) 41.6 % [facility] Nucleated RBC (Bld) [#/Vol] <0.01 k/uL [facility] Nucleated RBC/100 WBC (Bld) [Ratio] 0.0 /100 WBC [facility] Platelet mean volume (Bld) [Entitic vol] 11.4 fL 9.0 - 12.7 fL [facility] Platelets (Bld) [#/Vol] 86 10*3/uL Low 150 - 400 k/uL [facility] RBC (Bld) [#/Vol] 3.93 10*6/uL 3.90 - 5.2 0 m/uL [facility] WBC (Bld) [#/Vol] 3.01 10*3/uL Low 3.70 - 11. 00 k/uL [facility] No Panel Informationon 02-08 [facility] US ABD RIGHT UPPER QUADRANTo n 02-05-2023 [facility] CBC W Auto Differential pane l (Bld)on 01-23-2023 Anisocytosis Ql (Bld) Present [facility] Basophils (Bld) [#/Vol] 0.00 10*3/uL <0.11 k/uL [facility] Basophils/100 WBC (Bld) 0.0 % [facility] Dacrocytes LM Ql (Bld) Few [facility] Differential cell count method Nom (Bld) Manual [facility] Eosinophils (Bld) [#/Vol] 0.00 10*3/uL <0.46 k/uL [facility] Eosinophils/100 WBC (Bld) 0.0 % [facility] Erythrocyte distribution width (RBC) [Ratio] 17.4 % High 11.5 - 15.0 % [facility] Hematocrit (Bld) [Volume fraction] 30.8 % Low 36.0 - 46.0 % [facility] Hemoglobin (Bld) [Mass/Vol] 9.6 g/dL Low 11.5 - 15.5 g/dL [facility] Lymphocytes (Bld) [#/Vol] 1.40 10*3/uL 1.00 - 4.00 k/uL [facility] Lymphocytes/100 WBC (Bld) 43.0 % [facility] MCH (RBC) [Entitic mass] 25.1 pg Low 26.0 - 34.0 pg [facility] MCHC (RBC) [Mass/Vol] 31.2 g/dL 30.5 - 36.0 g/dL [facility] MCV (RBC) [Entitic vol] 80.6 fL 80.0 - 100.0 fL [facility] Monocytes (Bld) [#/Vol] 0.29 10*3/uL <0.87 k/uL [facility] Monocytes/100 WBC (Bld) 9.0 % [facility] Neutrophils (Bld) [#/Vol] 1.56 10*3/uL 1.45 - 7.50 k/uL [facility] Neutrophils/100 WBC (Bld) 48.0 % [facility] Nucleated RBC (Bld) [#/Vol] <0.01 k/uL [facility] Nucleated RBC/100 WBC (Bld) [Ratio] 0.0 /100 WBC [facility] Ovalocytes LM Ql (Bld) Few [facility] Platelet mean volume (Bld) [Entitic vol] 12.4 fL 9.0 - 12.7 fL [facility] Platelets (Bld) [#/Vol] 85 10*3/uL Low 150 - 400 k/uL [facility] Platelets Estimate (Bld) [#/Vol] Decreased [facility] RBC (Bld) [#/Vol] 3.82 10*6/uL Low 3.90 - 5.2 0 m/uL [facility] RBC Fragments Few Abnormal None Seen [facility] Red Cell Morph Reviewed: see result s of individual morphologies [facility] WBC (Bld) [#/Vol] 3.25 10*3/uL Low 3.70 - 11. 00 k/uL [facility] Comprehensive metabolic 2000 panelon 01-23-2023 Albumin [Mass/Vol] 4.2 g/dL 3.9 - 4.9 g/dL [facility] ALP [Catalytic activity/Vol] 216 U/L High 34 - 123 U/L [facility] ALT [Catalytic activity/Vol] 27 U/L 7 - 38 U/L [facility] Anion gap [Moles/Vol] 12 mmol/L 9 - 18 mmol/L [facility] AST [Catalytic activity/Vol] 39 U/L High 13 - 35 U/L [facility] Bilirubin [Mass/Vol] 0.3 mg/dL 0.2 - 1.3 mg/dL [facility] Calcium [Mass/Vol] 9.3 mg/dL 8.5 - 10. 2 mg/dL [facility] Chloride [Moles/Vol] 104 mmol/L 97 - 105 mmol/L [facility] CO2 [Moles/Vol] 25 mmol/L 22 - 30 mmol/L [facility] Creatinine [Mass/Vol] 0.53 mg/dL Low 0.58 - 0.96 mg/dL [facility] Estimated Glomerular Filtration Rate 127 mL/min/1.73m >=60 mL/min/1.73m [facility] Glucose [Mass/Vol] 95 mg/dL 74 - 99 mg/dL [facility] Potassium [Moles/Vol] 3.7 mmol/L 3.7 - 5.1 mmol/L [facility] Protein [Mass/Vol] 7.0 g/dL 6.3 - 8.0 g/dL [facility] Sodium [Moles/Vol] 141 mmol/L 136 - 144 mmol/L [facility] Urea nitrogen [Mass/Vol] 9 mg/dL 7 - 21 mg/dL [facility] MAGNESIUM BLDon 01-23-2023 Magnesium [Mass/Vol] 1.9 mg/dL 1.7 - 2.3 mg/dL [facility] CBC W Auto Differential pane l (Bld)on 01-02-2023 Basophils (Bld) [#/Vol] 0.05 10*3/uL <0.11 k/uL [facility] Basophils/100 WBC (Bld) 1.4 % [facility] Differential cell count method Nom (Bld) Auto [facility] Eosinophils (Bld) [#/Vol] 0.07 10*3/uL <0.46 k/uL [facility] Eosinophils/100 WBC (Bld) 2.0 % [facility] Erythrocyte distribution width (RBC) [Ratio] 16.6 % High 11.5 - 15.0 % [facility] Hematocrit (Bld) [Volume fraction] 32.5 % Low 36.0 - 46.0 % [facility] Hemoglobin (Bld) [Mass/Vol] 10.1 g/dL Low 11.5 - 15.5 g/dL [facility] Immature granulocytes (Bld) [#/Vol] <0.10 k/uL [facility] Immature granulocytes/100 WBC (Bld) 0.3 % [facility] Lymphocytes (Bld) [#/Vol] 1.58 10*3/uL 1.00 - 4.00 k/uL [facility] Lymphocytes/100 WBC (Bld) 45.3 % [facility] MCH (RBC) [Entitic mass] 25.2 pg Low 26.0 - 34.0 pg [facility] MCHC (RBC) [Mass/Vol] 31.1 g/dL 30.5 - 36.0 g/dL [facility] MCV (RBC) [Entitic vol] 81.0 fL 80.0 - 100.0 fL [facility] Monocytes (Bld) [#/Vol] 0.33 10*3/uL <0.87 k/uL [facility] Monocytes/100 WBC (Bld) 9.5 % [facility] Neutrophils (Bld) [#/Vol] 1.45 10*3/uL 1.45 - 7.50 k/uL [facility] Neutrophils/100 WBC (Bld) 41.5 % [facility] Nucleated RBC (Bld) [#/Vol] <0.01 k/uL [facility] Nucleated RBC/100 WBC (Bld) [Ratio] 0.0 /100 WBC [facility] Platelet mean volume (Bld) [Entitic vol] 11.3 fL 9.0 - 12.7 fL [facility] Platelets (Bld) [#/Vol] 96 10*3/uL Low 150 - 400 k/uL [facility] RBC (Bld) [#/Vol] 4.01 10*6/uL 3.90 - 5.2 0 m/uL [facility] WBC (Bld) [#/Vol] 3.49 10*3/uL Low 3.70 - 11. 00 k/uL [facility] Comprehensive metabolic 2000 panelon 01-02-2023 Albumin [Mass/Vol] 4.2 g/dL 3.9 - 4.9 g/dL [facility] ALP [Catalytic activity/Vol] 246 U/L High 34 - 123 U/L [facility] ALT [Catalytic activity/Vol] 23 U/L 7 - 38 U/L [facility] Anion gap [Moles/Vol] 9 mmol/L 9 - 18 mmol/L [facility] AST [Catalytic activity/Vol] 33 U/L 13 - 35 U/L [facility] Bilirubin [Mass/Vol] 0.2 mg/dL 0.2 - 1.3 mg/dL [facility] Calcium [Mass/Vol] 8.7 mg/dL 8.5 - 10. 2 mg/dL [facility] Chloride [Moles/Vol] 106 mmol/L High 97 - 105 mmol/L [facility] CO2 [Moles/Vol] 26 mmol/L 22 - 30 mmol/L [facility] Creatinine [Mass/Vol] 0.52 mg/dL Low 0.58 - 0.96 mg/dL [facility] Estimated Glomerular Filtration Rate 128 mL/min/1.73m >=60 mL/min/1.73m [facility] Glucose [Mass/Vol] 93 mg/dL 74 - 99 mg/dL [facility] Potassium [Moles/Vol] 3.8 mmol/L 3.7 - 5.1 mmol/L [facility] Protein [Mass/Vol] 7.0 g/dL 6.3 - 8.0 g/dL [facility] Sodium [Moles/Vol] 141 mmol/L 136 - 144 mmol/L [facility] Urea nitrogen [Mass/Vol] 8 mg/dL 7 - 21 mg/dL [facility] MAGNESIUM BLDon 01-02-2023 Magnesium [Mass/Vol] 1.9 mg/dL 1.7 - 2.3 mg/dL [facility] CBC W Auto Differential pane l (Bld)on 12-13-2022 Basophils (Bld) [#/Vol] 0.07 10*3/uL <0.11 k/uL [facility] Basophils/100 WBC (Bld) 1.4 % [facility] Differential cell count method Nom (Bld) Auto [facility] Eosinophils (Bld) [#/Vol] 0.08 10*3/uL <0.46 k/uL [facility] Eosinophils/100 WBC (Bld) 1.6 % [facility] Erythrocyte distribution width (RBC) [Ratio] 16.9 % High 11.5 - 15.0 % [facility] Hematocrit (Bld) [Volume fraction] 32.9 % Low 36.0 - 46.0 % [facility] Hemoglobin (Bld) [Mass/Vol] 10.3 g/dL Low 11.5 - 15.5 g/dL [facility] Immature granulocytes (Bld) [#/Vol] <0.10 k/uL [facility] Immature granulocytes/100 WBC (Bld) 0.2 % [facility] Lymphocytes (Bld) [#/Vol] 1.95 10*3/uL 1.00 - 4.00 k/uL [facility] Lymphocytes/100 WBC (Bld) 37.9 % [facility] MCH (RBC) [Entitic mass] 25.8 pg Low 26.0 - 34.0 pg [facility] MCHC (RBC) [Mass/Vol] 31.3 g/dL 30.5 - 36.0 g/dL [facility] MCV (RBC) [Entitic vol] 82.3 fL 80.0 - 100.0 fL [facility] Monocytes (Bld) [#/Vol] 0.47 10*3/uL <0.87 k/uL [facility] Monocytes/100 WBC (Bld) 9.1 % [facility] Neutrophils (Bld) [#/Vol] 2.57 10*3/uL 1.45 - 7.50 k/uL [facility] Neutrophils/100 WBC (Bld) 49.8 % [facility] Nucleated RBC (Bld) [#/Vol] <0.01 k/uL [facility] Nucleated RBC/100 WBC (Bld) [Ratio] 0.0 /100 WBC [facility] Platelet mean volume (Bld) [Entitic vol] 12.0 fL 9.0 - 12.7 fL [facility] Platelets (Bld) [#/Vol] 118 10*3/uL Low 150 - 400 k/uL [facility] RBC (Bld) [#/Vol] 4.00 10*6/uL 3.90 - 5.2 0 m/uL [facility] WBC (Bld) [#/Vol] 5.15 10*3/uL 3.70 - 11. 00 k/uL [facility] CBC W Auto Differential pane l (Bld)on 12-12-2022 Basophils (Bld) [#/Vol] 0.05 10*3/uL <0.11 k/uL [facility] Basophils/100 WBC (Bld) 1.5 % [facility] Differential cell count method Nom (Bld) Auto [facility] Eosinophils (Bld) [#/Vol] 0.09 10*3/uL <0.46 k/uL [facility] Eosinophils/100 WBC (Bld) 2.7 % [facility] Erythrocyte distribution width (RBC) [Ratio] 17.0 % High 11.5 - 15.0 % [facility] Hematocrit (Bld) [Volume fraction] 32.1 % Low 36.0 - 46.0 % [facility] Hemoglobin (Bld) [Mass/Vol] 9.9 g/dL Low 11.5 - 15.5 g/dL [facility] Immature granulocytes (Bld) [#/Vol] <0.10 k/uL [facility] Immature granulocytes/100 WBC (Bld) 0.3 % [facility] Lymphocytes (Bld) [#/Vol] 1.65 10*3/uL 1.00 - 4.00 k/uL [facility] Lymphocytes/100 WBC (Bld) 50.3 % [facility] MCH (RBC) [Entitic mass] 25.4 pg Low 26.0 - 34.0 pg [facility] MCHC (RBC) [Mass/Vol] 30.8 g/dL 30.5 - 36.0 g/dL [facility] MCV (RBC) [Entitic vol] 82.5 fL 80.0 - 100.0 fL [facility] Monocytes (Bld) [#/Vol] 0.33 10*3/uL <0.87 k/uL [facility] Monocytes/100 WBC (Bld) 10.1 % [facility] Neutrophils (Bld) [#/Vol] 1.15 10*3/uL Low 1.45 - 7.50 k/uL [facility] Neutrophils/100 WBC (Bld) 35.1 % [facility] Nucleated RBC (Bld) [#/Vol] <0.01 k/uL [facility] Nucleated RBC/100 WBC (Bld) [Ratio] 0.0 /100 WBC [facility] Platelet mean volume (Bld) [Entitic vol] 11.8 fL 9.0 - 12.7 fL [facility] Platelets (Bld) [#/Vol] 105 10*3/uL Low 150 - 400 k/uL [facility] RBC (Bld) [#/Vol] 3.89 10*6/uL Low 3.90 - 5.2 0 m/uL [facility] WBC (Bld) [#/Vol] 3.28 10*3/uL Low 3.70 - 11. 00 k/uL [facility] Comprehensive metabolic 2000 panelon 12-12-2022 Albumin [Mass/Vol] 4.2 g/dL 3.9 - 4.9 g/dL [facility] ALP [Catalytic activity/Vol] 207 U/L High 34 - 123 U/L [facility] ALT [Catalytic activity/Vol] 27 U/L 7 - 38 U/L [facility] Anion gap [Moles/Vol] 9 mmol/L 9 - 18 mmol/L [facility] AST [Catalytic activity/Vol] 34 U/L 13 - 35 U/L [facility] Bilirubin [Mass/Vol] 0.3 mg/dL 0.2 - 1.3 mg/dL [facility] Calcium [Mass/Vol] 8.8 mg/dL 8.5 - 10. 2 mg/dL [facility] Chloride [Moles/Vol] 105 mmol/L 97 - 105 mmol/L [facility] CO2 [Moles/Vol] 26 mmol/L 22 - 30 mmol/L [facility] Creatinine [Mass/Vol] 0.53 mg/dL Low 0.58 - 0.96 mg/dL [facility] Estimated Glomerular Filtration Rate 127 mL/min/1.73m >=60 mL/min/1.73m [facility] Glucose [Mass/Vol] 101 mg/dL High 74 - 99 mg/dL [facility] Potassium [Moles/Vol] 3.6 mmol/L Low 3.7 - 5.1 mmol/L [facility] Protein [Mass/Vol] 7.0 g/dL 6.3 - 8.0 g/dL [facility] Sodium [Moles/Vol] 140 mmol/L 136 - 144 mmol/L [facility] Urea nitrogen [Mass/Vol] 9 mg/dL 7 - 21 mg/dL [facility] MAGNESIUM BLDon 12-12-2022 Magnesium [Mass/Vol] 1.8 mg/dL 1.7 - 2.3 mg/dL [facility] CBC W Auto Differential pane l (Bld)on 11-20-2022 Basophils (Bld) [#/Vol] 0.05 10*3/uL <0.11 k/uL [facility] Basophils/100 WBC (Bld) 1.6 % [facility] Differential cell count method Nom (Bld) Auto [facility] Eosinophils (Bld) [#/Vol] 0.07 10*3/uL <0.46 k/uL [facility] Eosinophils/100 WBC (Bld) 2.2 % [facility] Erythrocyte distribution width (RBC) [Ratio] 16.6 % High 11.5 - 15.0 % [facility] Hematocrit (Bld) [Volume fraction] 33.2 % Low 36.0 - 46.0 % [facility] Hemoglobin (Bld) [Mass/Vol] 10.5 g/dL Low 11.5 - 15.5 g/dL [facility] Immature granulocytes (Bld) [#/Vol] <0.10 k/uL [facility] Immature granulocytes/100 WBC (Bld) 0.3 % [facility] Lymphocytes (Bld) [#/Vol] 1.40 10*3/uL 1.00 - 4.00 k/uL [facility] Lymphocytes/100 WBC (Bld) 44.4 % [facility] MCH (RBC) [Entitic mass] 26.0 pg 26.0 - 34.0 pg [facility] MCHC (RBC) [Mass/Vol] 31.6 g/dL 30.5 - 36.0 g/dL [facility] MCV (RBC) [Entitic vol] 82.2 fL 80.0 - 100.0 fL [facility] Monocytes (Bld) [#/Vol] 0.32 10*3/uL <0.87 k/uL [facility] Monocytes/100 WBC (Bld) 10.2 % [facility] Neutrophils (Bld) [#/Vol] 1.30 10*3/uL Low 1.45 - 7.50 k/uL [facility] Neutrophils/100 WBC (Bld) 41.3 % [facility] Nucleated RBC (Bld) [#/Vol] <0.01 k/uL [facility] Nucleated RBC/100 WBC (Bld) [Ratio] 0.0 /100 WBC [facility] Platelet mean volume (Bld) [Entitic vol] [facility] Platelets (Bld) [#/Vol] 109 10*3/uL Low 150 - 400 k/uL [facility] RBC (Bld) [#/Vol] 4.04 10*6/uL 3.90 - 5.2 0 m/uL [facility] WBC (Bld) [#/Vol] 3.15 10*3/uL Low 3.70 - 11. 00 k/uL [facility] Comprehensive metabolic 2000 panelon 11-20-2022 Albumin [Mass/Vol] 4.5 g/dL 3.9 - 4.9 g/dL [facility] ALP [Catalytic activity/Vol] 217 U/L High 34 - 123 U/L [facility] ALT [Catalytic activity/Vol] 30 U/L 7 - 38 U/L [facility] Anion gap [Moles/Vol] 8 mmol/L Low 9 - 18 mmol/L [facility] AST [Catalytic activity/Vol] 38 U/L High 13 - 35 U/L [facility] Bilirubin [Mass/Vol] 0.3 mg/dL 0.2 - 1.3 mg/dL [facility] Calcium [Mass/Vol] 9.3 mg/dL 8.5 - 10. 2 mg/dL [facility] Chloride [Moles/Vol] 106 mmol/L High 97 - 105 mmol/L [facility] CO2 [Moles/Vol] 26 mmol/L 22 - 30 mmol/L [facility] Creatinine [Mass/Vol] 0.57 mg/dL Low 0.58 - 0.96 mg/dL [facility] Estimated Glomerular Filtration Rate 125 mL/min/1.73m >=60 mL/min/1.73m [facility] Glucose [Mass/Vol] 92 mg/dL 74 - 99 mg/dL [facility] Potassium [Moles/Vol] 3.7 mmol/L 3.7 - 5.1 mmol/L [facility] Protein [Mass/Vol] 7.3 g/dL 6.3 - 8.0 g/dL [facility] Sodium [Moles/Vol] 140 mmol/L 136 - 144 mmol/L [facility] Urea nitrogen [Mass/Vol] 9 mg/dL 7 - 21 mg/dL [facility] MAGNESIUM BLDon 11-20-2022 Magnesium [Mass/Vol] 1.9 mg/dL 1.7 - 2.3 mg/dL [facility] CBC W Auto Differential pane l (Bld)on 10-30-2022 Basophils (Bld) [#/Vol] 0.06 10*3/uL <0.11 k/uL [facility] Basophils/100 WBC (Bld) 1.7 % [facility] Differential cell count method Nom (Bld) Auto [facility] Eosinophils (Bld) [#/Vol] 0.12 10*3/uL <0.46 k/uL [facility] Eosinophils/100 WBC (Bld) 3.4 % [facility] Erythrocyte distribution width (RBC) [Ratio] 17.0 % High 11.5 - 15.0 % [facility] Hematocrit (Bld) [Volume fraction] 33.7 % Low 36.0 - 46.0 % [facility] Hemoglobin (Bld) [Mass/Vol] 10.7 g/dL Low 11.5 - 15.5 g/dL [facility] Immature granulocytes (Bld) [#/Vol] <0.10 k/uL [facility] Immature granulocytes/100 WBC (Bld) 0.0 % [facility] Lymphocytes (Bld) [#/Vol] 1.41 10*3/uL 1.00 - 4.00 k/uL [facility] Lymphocytes/100 WBC (Bld) 40.5 % [facility] MCH (RBC) [Entitic mass] 26.2 pg 26.0 - 34.0 pg [facility] MCHC (RBC) [Mass/Vol] 31.8 g/dL 30.5 - 36.0 g/dL [facility] MCV (RBC) [Entitic vol] 82.4 fL 80.0 - 100.0 fL [facility] Monocytes (Bld) [#/Vol] 0.40 10*3/uL <0.87 k/uL [facility] Monocytes/100 WBC (Bld) 11.5 % [facility] Neutrophils (Bld) [#/Vol] 1.49 10*3/uL 1.45 - 7.50 k/uL [facility] Neutrophils/100 WBC (Bld) 42.9 % [facility] Nucleated RBC (Bld) [#/Vol] <0.01 k/uL [facility] Nucleated RBC/100 WBC (Bld) [Ratio] 0.0 /100 WBC [facility] Platelet mean volume (Bld) [Entitic vol] 11.5 fL 9.0 - 12.7 fL [facility] Platelets (Bld) [#/Vol] 143 10*3/uL Low 150 - 400 k/uL [facility] RBC (Bld) [#/Vol] 4.09 10*6/uL 3.90 - 5.2 0 m/uL [facility] WBC (Bld) [#/Vol] 3.48 10*3/uL Low 3.70 - 11. 00 k/uL [facility] Comprehensive metabolic 2000 panelon 10-30-2022 Albumin [Mass/Vol] 4.2 g/dL 3.9 - 4.9 g/dL [facility] ALP [Catalytic activity/Vol] 214 U/L High 34 - 123 U/L [facility] ALT [Catalytic activity/Vol] 38 U/L 7 - 38 U/L [facility] Anion gap [Moles/Vol] 9 mmol/L 9 - 18 mmol/L [facility] AST [Catalytic activity/Vol] 40 U/L High 13 - 35 U/L [facility] Bilirubin [Mass/Vol] 0.2 mg/dL 0.2 - 1.3 mg/dL [facility] Calcium [Mass/Vol] 9.0 mg/dL 8.5 - 10. 2 mg/dL [facility] Chloride [Moles/Vol] 103 mmol/L 97 - 105 mmol/L [facility] CO2 [Moles/Vol] 26 mmol/L 22 - 30 mmol/L [facility] Creatinine [Mass/Vol] 0.51 mg/dL Low 0.58 - 0.96 mg/dL [facility] Estimated Glomerular Filtration Rate 128 mL/min/1.73m >=60 mL/min/1.73m [facility] Glucose [Mass/Vol] 106 mg/dL High 74 - 99 mg/dL [facility] Potassium [Moles/Vol] 3.8 mmol/L 3.7 - 5.1 mmol/L [facility] Protein [Mass/Vol] 7.2 g/dL 6.3 - 8.0 g/dL [facility] Sodium [Moles/Vol] 138 mmol/L 136 - 144 mmol/L [facility] Urea nitrogen [Mass/Vol] 10 mg/dL 7 - 21 mg/dL [facility] MAGNESIUM BLDon 10-30-2022 Magnesium [Mass/Vol] 1.8 mg/dL 1.7 - 2.3 mg/dL [facility] CBC W Auto Differential pane l (Bld)on 10-09-2022 Basophils (Bld) [#/Vol] 0.06 10*3/uL <0.11 k/uL [facility] Basophils/100 WBC (Bld) 1.7 % [facility] Differential cell count method Nom (Bld) Auto [facility] Eosinophils (Bld) [#/Vol] 0.11 10*3/uL <0.46 k/uL [facility] Eosinophils/100 WBC (Bld) 3.1 % [facility] Erythrocyte distribution width (RBC) [Ratio] 17.2 % High 11.5 - 15.0 % [facility] Hematocrit (Bld) [Volume fraction] 33.4 % Low 36.0 - 46.0 % [facility] Hemoglobin (Bld) [Mass/Vol] 10.7 g/dL Low 11.5 - 15.5 g/dL [facility] Immature granulocytes (Bld) [#/Vol] <0.10 k/uL [facility] Immature granulocytes/100 WBC (Bld) 0.3 % [facility] Lymphocytes (Bld) [#/Vol] 1.63 10*3/uL 1.00 - 4.00 k/uL [facility] Lymphocytes/100 WBC (Bld) 46.2 % [facility] MCH (RBC) [Entitic mass] 26.4 pg 26.0 - 34.0 pg [facility] MCHC (RBC) [Mass/Vol] 32.0 g/dL 30.5 - 36.0 g/dL [facility] MCV (RBC) [Entitic vol] 82.3 fL 80.0 - 100.0 fL [facility] Monocytes (Bld) [#/Vol] 0.38 10*3/uL <0.87 k/uL [facility] Monocytes/100 WBC (Bld) 10.8 % [facility] Neutrophils (Bld) [#/Vol] 1.34 10*3/uL Low 1.45 - 7.50 k/uL [facility] Neutrophils/100 WBC (Bld) 37.9 % [facility] Nucleated RBC (Bld) [#/Vol] <0.01 k/uL [facility] Nucleated RBC/100 WBC (Bld) [Ratio] 0.0 /100 WBC [facility] Platelet mean volume (Bld) [Entitic vol] 11.5 fL 9.0 - 12.7 fL [facility] Platelets (Bld) [#/Vol] 127 10*3/uL Low 150 - 400 k/uL [facility] RBC (Bld) [#/Vol] 4.06 10*6/uL 3.90 - 5.2 0 m/uL [facility] WBC (Bld) [#/Vol] 3.53 10*3/uL Low 3.70 - 11. 00 k/uL [facility] Comprehensive metabolic 2000 panelon 10-09-2022 Albumin [Mass/Vol] 4.2 g/dL 3.9 - 4.9 g/dL [facility] ALP [Catalytic activity/Vol] 192 U/L High 34 - 123 U/L [facility] ALT [Catalytic activity/Vol] 26 U/L 7 - 38 U/L [facility] Anion gap [Moles/Vol] 12 mmol/L 9 - 18 mmol/L [facility] AST [Catalytic activity/Vol] 33 U/L 13 - 35 U/L [facility] Bilirubin [Mass/Vol] 0.3 mg/dL 0.2 - 1.3 mg/dL [facility] Calcium [Mass/Vol] 8.9 mg/dL 8.5 - 10. 2 mg/dL [facility] Chloride [Moles/Vol] 103 mmol/L 97 - 105 mmol/L [facility] CO2 [Moles/Vol] 25 mmol/L 22 - 30 mmol/L [facility] Creatinine [Mass/Vol] 0.57 mg/dL Low 0.58 - 0.96 mg/dL [facility] Estimated Glomerular Filtration Rate 125 mL/min/1.73m >=60 mL/min/1.73m [facility] Glucose [Mass/Vol] 92 mg/dL 74 - 99 mg/dL [facility] Potassium [Moles/Vol] 3.6 mmol/L Low 3.7 - 5.1 mmol/L [facility] Protein [Mass/Vol] 7.0 g/dL 6.3 - 8.0 g/dL [facility] Sodium [Moles/Vol] 140 mmol/L 136 - 144 mmol/L [facility] Urea nitrogen [Mass/Vol] 9 mg/dL 7 - 21 mg/dL [facility] MAGNESIUM BLDon 10-09-2022 Magnesium [Mass/Vol] 1.9 mg/dL 1.7 - 2.3 mg/dL [facility] CBC W Auto Differential pane l (Bld)on 09-18-2022 Basophils (Bld) [#/Vol] 0.05 10*3/uL <0.11 k/uL [facility] Basophils/100 WBC (Bld) 1.2 % [facility] Differential cell count method Nom (Bld) Auto [facility] Eosinophils (Bld) [#/Vol] 0.12 10*3/uL <0.46 k/uL [facility] Eosinophils/100 WBC (Bld) 2.9 % [facility] Erythrocyte distribution width (RBC) [Ratio] 17.9 % High 11.5 - 15.0 % [facility] Hematocrit (Bld) [Volume fraction] 31.8 % Low 36.0 - 46.0 % [facility] Hemoglobin (Bld) [Mass/Vol] 10.3 g/dL Low 11.5 - 15.5 g/dL [facility] Immature granulocytes (Bld) [#/Vol] <0.10 k/uL [facility] Immature granulocytes/100 WBC (Bld) 0.2 % [facility] Lymphocytes (Bld) [#/Vol] 2.12 10*3/uL 1.00 - 4.00 k/uL [facility] Lymphocytes/100 WBC (Bld) 50.6 % [facility] MCH (RBC) [Entitic mass] 26.1 pg 26.0 - 34.0 pg [facility] MCHC (RBC) [Mass/Vol] 32.4 g/dL 30.5 - 36.0 g/dL [facility] MCV (RBC) [Entitic vol] 80.7 fL 80.0 - 100.0 fL [facility] Monocytes (Bld) [#/Vol] 0.55 10*3/uL <0.87 k/uL [facility] Monocytes/100 WBC (Bld) 13.1 % [facility] Neutrophils (Bld) [#/Vol] 1.34 10*3/uL Low 1.45 - 7.50 k/uL [facility] Neutrophils/100 WBC (Bld) 32.0 % [facility] Nucleated RBC (Bld) [#/Vol] <0.01 k/uL [facility] Nucleated RBC/100 WBC (Bld) [Ratio] 0.0 /100 WBC [facility] Platelet mean volume (Bld) [Entitic vol] 11.0 fL 9.0 - 12.7 fL [facility] Platelets (Bld) [#/Vol] 144 10*3/uL Low 150 - 400 k/uL [facility] RBC (Bld) [#/Vol] 3.94 10*6/uL 3.90 - 5.2 0 m/uL [facility] WBC (Bld) [#/Vol] 4.19 10*3/uL 3.70 - 11. 00 k/uL [facility] Comprehensive metabolic 2000 panelon 09-18-2022 Albumin [Mass/Vol] 4.1 g/dL 3.9 - 4.9 g/dL [facility] ALP [Catalytic activity/Vol] 200 U/L High 34 - 123 U/L [facility] ALT [Catalytic activity/Vol] 37 U/L 7 - 38 U/L [facility] Anion gap [Moles/Vol] 9 mmol/L 9 - 18 mmol/L [facility] AST [Catalytic activity/Vol] 36 U/L High 13 - 35 U/L [facility] Bilirubin [Mass/Vol] 0.3 mg/dL 0.2 - 1.3 mg/dL [facility] Calcium [Mass/Vol] 9.0 mg/dL 8.5 - 10. 2 mg/dL [facility] Chloride [Moles/Vol] 105 mmol/L 97 - 105 mmol/L [facility] CO2 [Moles/Vol] 27 mmol/L 22 - 30 mmol/L [facility] Creatinine [Mass/Vol] 0.59 mg/dL 0.58 - 0.96 mg/dL [facility] Estimated Glomerular Filtration Rate 124 mL/min/1.73m >=60 mL/min/1.73m [facility] Glucose [Mass/Vol] 90 mg/dL 74 - 99 mg/dL [facility] Potassium [Moles/Vol] 3.6 mmol/L Low 3.7 - 5.1 mmol/L [facility] Protein [Mass/Vol] 6.9 g/dL 6.3 - 8.0 g/dL [facility] Sodium [Moles/Vol] 141 mmol/L 136 - 144 mmol/L [facility] Urea nitrogen [Mass/Vol] 9 mg/dL 7 - 21 mg/dL [facility] MAGNESIUM BLDon 09-18-2022 Magnesium [Mass/Vol] 1.9 mg/dL 1.7 - 2.3 mg/dL [facility] CBC W Auto Differential pane l (Bld)on 08-24-2022 Basophils (Bld) [#/Vol] 0.05 10*3/uL <0.11 k/uL [facility] Basophils/100 WBC (Bld) 1.3 % [facility] Differential cell count method Nom (Bld) Auto [facility] Eosinophils (Bld) [#/Vol] 0.08 10*3/uL <0.46 k/uL [facility] Eosinophils/100 WBC (Bld) 2.1 % [facility] Erythrocyte distribution width (RBC) [Ratio] 18.9 % High 11.5 - 15.0 % [facility] Hematocrit (Bld) [Volume fraction] 33.5 % Low 36.0 - 46.0 % [facility] Hemoglobin (Bld) [Mass/Vol] 10.6 g/dL Low 11.5 - 15.5 g/dL [facility] Immature granulocytes (Bld) [#/Vol] <0.10 k/uL [facility] Immature granulocytes/100 WBC (Bld) 0.5 % [facility] Lymphocytes (Bld) [#/Vol] 1.83 10*3/uL 1.00 - 4.00 k/uL [facility] Lymphocytes/100 WBC (Bld) 47.7 % [facility] MCH (RBC) [Entitic mass] 25.3 pg Low 26.0 - 34.0 pg [facility] MCHC (RBC) [Mass/Vol] 31.6 g/dL 30.5 - 36.0 g/dL [facility] MCV (RBC) [Entitic vol] 80.0 fL 80.0 - 100.0 fL [facility] Monocytes (Bld) [#/Vol] 0.36 10*3/uL <0.87 k/uL [facility] Monocytes/100 WBC (Bld) 9.4 % [facility] Neutrophils (Bld) [#/Vol] 1.50 10*3/uL 1.45 - 7.50 k/uL [facility] Neutrophils/100 WBC (Bld) 39.0 % [facility] Nucleated RBC (Bld) [#/Vol] <0.01 k/uL [facility] Nucleated RBC/100 WBC (Bld) [Ratio] 0.0 /100 WBC [facility] Platelet mean volume (Bld) [Entitic vol] 10.9 fL 9.0 - 12.7 fL [facility] Platelets (Bld) [#/Vol] 156 10*3/uL 150 - 400 k/uL [facility] RBC (Bld) [#/Vol] 4.19 10*6/uL 3.90 - 5.2 0 m/uL [facility] WBC (Bld) [#/Vol] 3.84 10*3/uL 3.70 - 11. 00 k/uL [facility] Comprehensive metabolic 2000 panelon 08-24-2022 Albumin [Mass/Vol] 4.3 g/dL 3.9 - 4.9 g/dL [facility] ALP [Catalytic activity/Vol] 159 U/L High 34 - 123 U/L [facility] ALT [Catalytic activity/Vol] 33 U/L 7 - 38 U/L [facility] Anion gap [Moles/Vol] 8 mmol/L Low 9 - 18 mmol/L [facility] AST [Catalytic activity/Vol] 41 U/L High 13 - 35 U/L [facility] Bilirubin [Mass/Vol] 0.2 mg/dL 0.2 - 1.3 mg/dL [facility] Calcium [Mass/Vol] 8.8 mg/dL 8.5 - 10. 2 mg/dL [facility] Chloride [Moles/Vol] 103 mmol/L 97 - 105 mmol/L [facility] CO2 [Moles/Vol] 26 mmol/L 22 - 30 mmol/L [facility] Creatinine [Mass/Vol] 0.59 mg/dL 0.58 - 0.96 mg/dL [facility] Estimated Glomerular Filtration Rate 124 mL/min/1.73m >=60 mL/min/1.73m [facility] Glucose [Mass/Vol] 136 mg/dL High 74 - 99 mg/dL [facility] Potassium [Moles/Vol] 3.7 mmol/L 3.7 - 5.1 mmol/L [facility] Protein [Mass/Vol] 7.0 g/dL 6.3 - 8.0 g/dL [facility] Sodium [Moles/Vol] 137 mmol/L 136 - 144 mmol/L [facility] Urea nitrogen [Mass/Vol] 12 mg/dL 7 - 21 mg/dL [facility] MAGNESIUM BLDon 08-24-2022 Magnesium [Mass/Vol] 1.8 mg/dL 1.7 - 2.3 mg/dL [facility] CBC W Auto Differential pane l (Bld)on 08-08-2022 Basophils (Bld) [#/Vol] 0.04 10*3/uL <0.11 k/uL [facility] Basophils/100 WBC (Bld) 1.0 % [facility] Differential cell count method Nom (Bld) Auto [facility] Eosinophils (Bld) [#/Vol] 0.06 10*3/uL <0.46 k/uL [facility] Eosinophils/100 WBC (Bld) 1.5 % [facility] Erythrocyte distribution width (RBC) [Ratio] 18.6 % High 11.5 - 15.0 % [facility] Hematocrit (Bld) [Volume fraction] 32.5 % Low 36.0 - 46.0 % [facility] Hemoglobin (Bld) [Mass/Vol] 10.5 g/dL Low 11.5 - 15.5 g/dL [facility] Immature granulocytes (Bld) [#/Vol] <0.10 k/uL [facility] Immature granulocytes/100 WBC (Bld) 0.0 % [facility] Lymphocytes (Bld) [#/Vol] 1.84 10*3/uL 1.00 - 4.00 k/uL [facility] Lymphocytes/100 WBC (Bld) 45.4 % [facility] MCH (RBC) [Entitic mass] 25.8 pg Low 26.0 - 34.0 pg [facility] MCHC (RBC) [Mass/Vol] 32.3 g/dL 30.5 - 36.0 g/dL [facility] MCV (RBC) [Entitic vol] 79.9 fL Low 80.0 - 100.0 fL [facility] Monocytes (Bld) [#/Vol] 0.37 10*3/uL <0.87 k/uL [facility] Monocytes/100 WBC (Bld) 9.1 % [facility] Neutrophils (Bld) [#/Vol] 1.74 10*3/uL 1.45 - 7.50 k/uL [facility] Neutrophils/100 WBC (Bld) 43.0 % [facility] Nucleated RBC (Bld) [#/Vol] <0.01 k/uL [facility] Nucleated RBC/100 WBC (Bld) [Ratio] 0.0 /100 WBC [facility] Platelet mean volume (Bld) [Entitic vol] 9.9 fL 9.0 - 12.7 fL [facility] Platelets (Bld) [#/Vol] 156 10*3/uL 150 - 400 k/uL [facility] RBC (Bld) [#/Vol] 4.07 10*6/uL 3.90 - 5.2 0 m/uL [facility] WBC (Bld) [#/Vol] 4.05 10*3/uL 3.70 - 11. 00 k/uL [facility] Comprehensive metabolic 2000 panelon 08-08-2022 Albumin [Mass/Vol] 4.3 g/dL 3.9 - 4.9 g/dL [facility] ALP [Catalytic activity/Vol] 147 U/L High 34 - 123 U/L [facility] ALT [Catalytic activity/Vol] 14 U/L 7 - 38 U/L [facility] Anion gap [Moles/Vol] 9 mmol/L 9 - 18 mmol/L [facility] AST [Catalytic activity/Vol] 20 U/L 13 - 35 U/L [facility] Bilirubin [Mass/Vol] 0.2 mg/dL 0.2 - 1.3 mg/dL [facility] Calcium [Mass/Vol] 8.6 mg/dL 8.5 - 10. 2 mg/dL [facility] Chloride [Moles/Vol] 105 mmol/L 97 - 105 mmol/L [facility] CO2 [Moles/Vol] 26 mmol/L 22 - 30 mmol/L [facility] Creatinine [Mass/Vol] 0.61 mg/dL 0.58 - 0.96 mg/dL [facility] Estimated Glomerular Filtration Rate 123 mL/min/1.73m >=60 mL/min/1.73m [facility] Glucose [Mass/Vol] 110 mg/dL High 74 - 99 mg/dL [facility] Potassium [Moles/Vol] 3.9 mmol/L 3.7 - 5.1 mmol/L [facility] Protein [Mass/Vol] 7.0 g/dL 6.3 - 8.0 g/dL [facility] Sodium [Moles/Vol] 140 mmol/L 136 - 144 mmol/L [facility] Urea nitrogen [Mass/Vol] 10 mg/dL 7 - 21 mg/dL [facility] CBC W Auto Differential pane l (Bld)on 08-01-2022 Basophils (Bld) [#/Vol] 0.05 10*3/uL <0.11 k/uL [facility] Basophils/100 WBC (Bld) 1.4 % [facility] Differential cell count method Nom (Bld) Auto [facility] Eosinophils (Bld) [#/Vol] 0.09 10*3/uL <0.46 k/uL [facility] Eosinophils/100 WBC (Bld) 2.5 % [facility] Erythrocyte distribution width (RBC) [Ratio] 18.0 % High 11.5 - 15.0 % [facility] Hematocrit (Bld) [Volume fraction] 33.9 % Low 36.0 - 46.0 % [facility] Hemoglobin (Bld) [Mass/Vol] 10.6 g/dL Low 11.5 - 15.5 g/dL [facility] Immature granulocytes (Bld) [#/Vol] <0.10 k/uL [facility] Immature granulocytes/100 WBC (Bld) 0.0 % [facility] Lymphocytes (Bld) [#/Vol] 1.79 10*3/uL 1.00 - 4.00 k/uL [facility] Lymphocytes/100 WBC (Bld) 50.6 % [facility] MCH (RBC) [Entitic mass] 24.9 pg Low 26.0 - 34.0 pg [facility] MCHC (RBC) [Mass/Vol] 31.3 g/dL 30.5 - 36.0 g/dL [facility] MCV (RBC) [Entitic vol] 79.8 fL Low 80.0 - 100.0 fL [facility] Monocytes (Bld) [#/Vol] 0.47 10*3/uL <0.87 k/uL [facility] Monocytes/100 WBC (Bld) 13.3 % [facility] Neutrophils (Bld) [#/Vol] 1.14 10*3/uL Low 1.45 - 7.50 k/uL [facility] Neutrophils/100 WBC (Bld) 32.2 % [facility] Nucleated RBC (Bld) [#/Vol] <0.01 k/uL [facility] Nucleated RBC/100 WBC (Bld) [Ratio] 0.0 /100 WBC [facility] Platelet mean volume (Bld) [Entitic vol] 10.3 fL 9.0 - 12.7 fL [facility] Platelets (Bld) [#/Vol] 183 10*3/uL 150 - 400 k/uL [facility] RBC (Bld) [#/Vol] 4.25 10*6/uL 3.90 - 5.2 0 m/uL [facility] WBC (Bld) [#/Vol] 3.54 10*3/uL Low 3.70 - 11. 00 k/uL [facility] Comprehensive metabolic 2000 panelon 08-01-2022 Albumin [Mass/Vol] 4.2 g/dL 3.9 - 4.9 g/dL [facility] ALP [Catalytic activity/Vol] 146 U/L High 34 - 123 U/L [facility] ALT [Catalytic activity/Vol] 35 U/L 7 - 38 U/L [facility] Anion gap [Moles/Vol] 10 mmol/L 9 - 18 mmol/L [facility] AST [Catalytic activity/Vol] 39 U/L High 13 - 35 U/L [facility] Bilirubin [Mass/Vol] 0.3 mg/dL 0.2 - 1.3 mg/dL [facility] Calcium [Mass/Vol] 8.6 mg/dL 8.5 - 10. 2 mg/dL [facility] Chloride [Moles/Vol] 103 mmol/L 97 - 105 mmol/L [facility] CO2 [Moles/Vol] 26 mmol/L 22 - 30 mmol/L [facility] Creatinine [Mass/Vol] 0.60 mg/dL 0.58 - 0.96 mg/dL [facility] Estimated Glomerular Filtration Rate 123 mL/min/1.73m >=60 mL/min/1.73m [facility] Glucose [Mass/Vol] 101 mg/dL High 74 - 99 mg/dL [facility] Potassium [Moles/Vol] 3.8 mmol/L 3.7 - 5.1 mmol/L [facility] Protein [Mass/Vol] 6.8 g/dL 6.3 - 8.0 g/dL [facility] Sodium [Moles/Vol] 139 mmol/L 136 - 144 mmol/L [facility] Urea nitrogen [Mass/Vol] 9 mg/dL 7 - 21 mg/dL [facility] MAGNESIUM BLDon 08-01-2022 Magnesium [Mass/Vol] 1.9 mg/dL 1.7 - 2.3 mg/dL [facility] CBC W Auto Differential pane l (Bld)on 07-06-2022 Basophils (Bld) [#/Vol] 0.05 10*3/uL <0.11 k/uL [facility] Basophils/100 WBC (Bld) 1.2 % [facility] Differential cell count method Nom (Bld) Auto [facility] Eosinophils (Bld) [#/Vol] 0.07 10*3/uL <0.46 k/uL [facility] Eosinophils/100 WBC (Bld) 1.6 % [facility] Erythrocyte distribution width (RBC) [Ratio] 16.8 % High 11.5 - 15.0 % [facility] Hematocrit (Bld) [Volume fraction] 34.1 % Low 36.0 - 46.0 % [facility] Hemoglobin (Bld) [Mass/Vol] 10.5 g/dL Low 11.5 - 15.5 g/dL [facility] Immature granulocytes (Bld) [#/Vol] <0.10 k/uL [facility] Immature granulocytes/100 WBC (Bld) 0.0 % [facility] Lymphocytes (Bld) [#/Vol] 2.07 10*3/uL 1.00 - 4.00 k/uL [facility] Lymphocytes/100 WBC (Bld) 48.4 % [facility] MCH (RBC) [Entitic mass] 24.9 pg Low 26.0 - 34.0 pg [facility] MCHC (RBC) [Mass/Vol] 30.8 g/dL 30.5 - 36.0 g/dL [facility] MCV (RBC) [Entitic vol] 80.8 fL 80.0 - 100.0 fL [facility] Monocytes (Bld) [#/Vol] 0.38 10*3/uL <0.87 k/uL [facility] Monocytes/100 WBC (Bld) 8.9 % [facility] Neutrophils (Bld) [#/Vol] 1.71 10*3/uL 1.45 - 7.50 k/uL [facility] Neutrophils/100 WBC (Bld) 39.9 % [facility] Nucleated RBC (Bld) [#/Vol] <0.01 k/uL [facility] Nucleated RBC/100 WBC (Bld) [Ratio] 0.0 /100 WBC [facility] Platelet mean volume (Bld) [Entitic vol] 10.2 fL 9.0 - 12.7 fL [facility] Platelets (Bld) [#/Vol] 216 10*3/uL 150 - 400 k/uL [facility] RBC (Bld) [#/Vol] 4.22 10*6/uL 3.90 - 5.2 0 m/uL [facility] WBC (Bld) [#/Vol] 4.28 10*3/uL 3.70 - 11. 00 k/uL [facility] Comprehensive metabolic 2000 panelon 07-06-2022 Albumin [Mass/Vol] 4.5 g/dL 3.9 - 4.9 g/dL [facility] ALP [Catalytic activity/Vol] 145 U/L High 34 - 123 U/L [facility] ALT [Catalytic activity/Vol] 15 U/L 7 - 38 U/L [facility] Anion gap [Moles/Vol] 12 mmol/L 9 - 18 mmol/L [facility] AST [Catalytic activity/Vol] 22 U/L 13 - 35 U/L [facility] Bilirubin [Mass/Vol] 0.2 mg/dL 0.2 - 1.3 mg/dL [facility] Calcium [Mass/Vol] 9.4 mg/dL 8.5 - 10. 2 mg/dL [facility] Chloride [Moles/Vol] 102 mmol/L 97 - 105 mmol/L [facility] CO2 [Moles/Vol] 26 mmol/L 22 - 30 mmol/L [facility] Creatinine [Mass/Vol] 0.58 mg/dL 0.58 - 0.96 mg/dL [facility] Estimated Glomerular Filtration Rate 124 mL/min/1.73m >=60 mL/min/1.73m [facility] Glucose [Mass/Vol] 93 mg/dL 74 - 99 mg/dL [facility] Potassium [Moles/Vol] 3.7 mmol/L 3.7 - 5.1 mmol/L [facility] Protein [Mass/Vol] 7.0 g/dL 6.3 - 8.0 g/dL [facility] Sodium [Moles/Vol] 140 mmol/L 136 - 144 mmol/L [facility] Urea nitrogen [Mass/Vol] 9 mg/dL 7 - 21 mg/dL [facility] Laboratory - Chemistry and C hemistry - challengeon 07-06-2022 Magnesium [Mass/Vol] 2.0 mg/dL 1.7 - 2.3 mg/dL [facility] STREP A MOLECULAR (POC)on Procedural Control Valid [facility] Strep A (POCT) Positive Abnormal Negative [facility] CBC W Auto Differential pane l (Bld)on 06-13-2022 Basophils (Bld) [#/Vol] <0.11 k/uL [facility] Basophils/100 WBC (Bld) 0.6 % [facility] Differential cell count method Nom (Bld) Auto [facility] Eosinophils (Bld) [#/Vol] 0.10 10*3/uL <0.46 k/uL [facility] Eosinophils/100 WBC (Bld) 2.8 % [facility] Erythrocyte distribution width (RBC) [Ratio] 15.9 % High 11.5 - 15.0 % [facility] Hematocrit (Bld) [Volume fraction] 33.2 % Low 36.0 - 46.0 % [facility] Hemoglobin (Bld) [Mass/Vol] 10.1 g/dL Low 11.5 - 15.5 g/dL [facility] Immature granulocytes (Bld) [#/Vol] <0.10 k/uL [facility] Immature granulocytes/100 WBC (Bld) 0.0 % [facility] Lymphocytes (Bld) [#/Vol] 1.52 10*3/uL 1.00 - 4.00 k/uL [facility] Lymphocytes/100 WBC (Bld) 43.1 % [facility] MCH (RBC) [Entitic mass] 25.6 pg Low 26.0 - 34.0 pg [facility] MCHC (RBC) [Mass/Vol] 30.4 g/dL Low 30.5 - 36.0 g/dL [facility] MCV (RBC) [Entitic vol] 84.1 fL 80.0 - 100.0 fL [facility] Monocytes (Bld) [#/Vol] 0.46 10*3/uL <0.87 k/uL [facility] Monocytes/100 WBC (Bld) 13.0 % [facility] Neutrophils (Bld) [#/Vol] 1.43 10*3/uL Low 1.45 - 7.50 k/uL [facility] Neutrophils/100 WBC (Bld) 40.5 % [facility] Nucleated RBC (Bld) [#/Vol] <0.01 k/uL [facility] Nucleated RBC/100 WBC (Bld) [Ratio] 0.0 /100 WBC [facility] Platelet mean volume (Bld) [Entitic vol] 10.1 fL 9.0 - 12.7 fL [facility] Platelets (Bld) [#/Vol] 158 10*3/uL 150 - 400 k/uL [facility] RBC (Bld) [#/Vol] 3.95 10*6/uL 3.90 - 5.2 0 m/uL [facility] WBC (Bld) [#/Vol] 3.53 10*3/uL Low 3.70 - 11. 00 k/uL [facility] Comprehensive metabolic 2000 panelon 06-13-2022 Albumin [Mass/Vol] 4.2 g/dL 3.9 - 4.9 g/dL [facility] ALP [Catalytic activity/Vol] 137 U/L High 34 - 123 U/L [facility] ALT [Catalytic activity/Vol] 6 U/L Low 7 - 38 U/L [facility] Anion gap [Moles/Vol] 8 mmol/L Low 9 - 18 mmol/L [facility] AST [Catalytic activity/Vol] 13 U/L 13 - 35 U/L [facility] Bilirubin [Mass/Vol] 0.2 mg/dL 0.2 - 1.3 mg/dL [facility] Calcium [Mass/Vol] 8.7 mg/dL 8.5 - 10. 2 mg/dL [facility] Chloride [Moles/Vol] 104 mmol/L 97 - 105 mmol/L [facility] CO2 [Moles/Vol] 25 mmol/L 22 - 30 mmol/L [facility] Creatinine [Mass/Vol] 0.62 mg/dL 0.58 - 0.96 mg/dL [facility] Estimated Glomerular Filtration Rate 122 mL/min/1.73m >=60 mL/min/1.73m [facility] Glucose [Mass/Vol] 106 mg/dL High 74 - 99 mg/dL [facility] Potassium [Moles/Vol] 3.9 mmol/L 3.7 - 5.1 mmol/L [facility] Protein [Mass/Vol] 6.7 g/dL 6.3 - 8.0 g/dL [facility] Sodium [Moles/Vol] 137 mmol/L 136 - 144 mmol/L [facility] Urea nitrogen [Mass/Vol] 10 mg/dL 7 - 21 mg/dL [facility] MAGNESIUM BLDon 06-13-2022 Magnesium [Mass/Vol] 1.8 mg/dL 1.7 - 2.3 mg/dL [facility] CBC W Auto Differential pane l (Bld)on 06-05-2022 Basophils (Bld) [#/Vol] <0.11 k/uL [facility] Basophils/100 WBC (Bld) 0.6 % [facility] Differential cell count method Nom (Bld) Auto [facility] Eosinophils (Bld) [#/Vol] 0.10 10*3/uL <0.46 k/uL [facility] Eosinophils/100 WBC (Bld) 3.0 % [facility] Erythrocyte distribution width (RBC) [Ratio] 15.4 % High 11.5 - 15.0 % [facility] Hematocrit (Bld) [Volume fraction] 32.8 % Low 36.0 - 46.0 % [facility] Hemoglobin (Bld) [Mass/Vol] 10.1 g/dL Low 11.5 - 15.5 g/dL [facility] Immature granulocytes (Bld) [#/Vol] <0.10 k/uL [facility] Immature granulocytes/100 WBC (Bld) 0.3 % [facility] Lymphocytes (Bld) [#/Vol] 1.69 10*3/uL 1.00 - 4.00 k/uL [facility] Lymphocytes/100 WBC (Bld) 50.8 % [facility] MCH (RBC) [Entitic mass] 26.1 pg 26.0 - 34.0 pg [facility] MCHC (RBC) [Mass/Vol] 30.8 g/dL 30.5 - 36.0 g/dL [facility] MCV (RBC) [Entitic vol] 84.8 fL 80.0 - 100.0 fL [facility] Monocytes (Bld) [#/Vol] 0.27 10*3/uL <0.87 k/uL [facility] Monocytes/100 WBC (Bld) 8.1 % [facility] Neutrophils (Bld) [#/Vol] 1.24 10*3/uL Low 1.45 - 7.50 k/uL [facility] Neutrophils/100 WBC (Bld) 37.2 % [facility] Nucleated RBC (Bld) [#/Vol] <0.01 k/uL [facility] Nucleated RBC/100 WBC (Bld) [Ratio] 0.0 /100 WBC [facility] Platelet mean volume (Bld) [Entitic vol] 10.5 fL 9.0 - 12.7 fL [facility] Platelets (Bld) [#/Vol] 147 10*3/uL Low 150 - 400 k/uL [facility] RBC (Bld) [#/Vol] 3.87 10*6/uL Low 3.90 - 5.2 0 m/uL [facility] WBC (Bld) [#/Vol] 3.33 10*3/uL Low 3.70 - 11. 00 k/uL [facility] Comprehensive metabolic 2000 panelon 06-05-2022 Albumin [Mass/Vol] 4.1 g/dL 3.9 - 4.9 g/dL [facility] ALP [Catalytic activity/Vol] 153 U/L High 34 - 123 U/L [facility] ALT [Catalytic activity/Vol] 6 U/L Low 7 - 38 U/L [facility] Anion gap [Moles/Vol] 8 mmol/L Low 9 - 18 mmol/L [facility] AST [Catalytic activity/Vol] 13 U/L 13 - 35 U/L [facility] Bilirubin [Mass/Vol] 0.3 mg/dL 0.2 - 1.3 mg/dL [facility] Calcium [Mass/Vol] 9.2 mg/dL 8.5 - 10. 2 mg/dL [facility] Chloride [Moles/Vol] 106 mmol/L High 97 - 105 mmol/L [facility] CO2 [Moles/Vol] 25 mmol/L 22 - 30 mmol/L [facility] Creatinine [Mass/Vol] 0.62 mg/dL 0.58 - 0.96 mg/dL [facility] Estimated Glomerular Filtration Rate 122 mL/min/1.73m >=60 mL/min/1.73m [facility] Glucose [Mass/Vol] 119 mg/dL High 74 - 99 mg/dL [facility] Potassium [Moles/Vol] 3.8 mmol/L 3.7 - 5.1 mmol/L [facility] Protein [Mass/Vol] 6.6 g/dL 6.3 - 8.0 g/dL [facility] Sodium [Moles/Vol] 139 mmol/L 136 - 144 mmol/L [facility] Urea nitrogen [Mass/Vol] 9 mg/dL 7 - 21 mg/dL [facility] MAGNESIUM BLDon 06-05-2022 Magnesium [Mass/Vol] 1.9 mg/dL 1.7 - 2.3 mg/dL [facility] CBC W Auto Differential pane l (Bld)on 05-22-2022 Anisocytosis Ql (Bld) Present [facility] Basophils (Bld) [#/Vol] 0.00 10*3/uL <0.11 k/uL [facility] Basophils/100 WBC (Bld) 0.0 % [facility] Differential cell count method Nom (Bld) Manual [facility] Eosinophils (Bld) [#/Vol] 0.12 10*3/uL <0.46 k/uL [facility] Eosinophils/100 WBC (Bld) 5.0 % [facility] Erythrocyte distribution width (RBC) [Ratio] 14.1 % 11.5 - 15.0 % [facility] Hematocrit (Bld) [Volume fraction] 30.4 % Low 36.0 - 46.0 % [facility] Hemoglobin (Bld) [Mass/Vol] 9.6 g/dL Low 11.5 - 15.5 g/dL [facility] Lymphocytes (Bld) [#/Vol] 1.26 10*3/uL 1.00 - 4.00 k/uL [facility] Lymphocytes/100 WBC (Bld) 51.0 % [facility] MCH (RBC) [Entitic mass] 26.7 pg 26.0 - 34.0 pg [facility] MCHC (RBC) [Mass/Vol] 31.6 g/dL 30.5 - 36.0 g/dL [facility] MCV (RBC) [Entitic vol] 84.4 fL 80.0 - 100.0 fL [facility] Monocytes (Bld) [#/Vol] 0.27 10*3/uL <0.87 k/uL [facility] Monocytes/100 WBC (Bld) 11.0 % [facility] Neutrophils (Bld) [#/Vol] 0.82 10*3/uL Low 1.45 - 7.50 k/uL [facility] Neutrophils/100 WBC (Bld) 33.0 % [facility] Nucleated RBC (Bld) [#/Vol] <0.01 k/uL [facility] Nucleated RBC/100 WBC (Bld) [Ratio] 0.0 /100 WBC [facility] Platelet mean volume (Bld) [Entitic vol] 11.6 fL 9.0 - 12.7 fL [facility] Platelets (Bld) [#/Vol] 132 10*3/uL Low 150 - 400 k/uL [facility] Platelets Estimate (Bld) [#/Vol] Adequate [facility] RBC (Bld) [#/Vol] 3.60 10*6/uL Low 3.90 - 5.2 0 m/uL [facility] Red Cell Morph Reviewed: see result s of individual morphologies [facility] WBC (Bld) [#/Vol] 2.47 10*3/uL Low 3.70 - 11. 00 k/uL [facility] Comprehensive metabolic 2000 panelon 05-22-2022 Albumin [Mass/Vol] 4.1 g/dL 3.9 - 4.9 g/dL [facility] ALP [Catalytic activity/Vol] 114 U/L 34 - 123 U/L [facility] ALT [Catalytic activity/Vol] 8 U/L 7 - 38 U/L [facility] Anion gap [Moles/Vol] 9 mmol/L 9 - 18 mmol/L [facility] AST [Catalytic activity/Vol] 13 U/L 13 - 35 U/L [facility] Bilirubin [Mass/Vol] Low 0.2 - 1.3 mg/dL [facility] Calcium [Mass/Vol] 8.9 mg/dL 8.5 - 10. 2 mg/dL [facility] Chloride [Moles/Vol] 106 mmol/L High 97 - 105 mmol/L [facility] CO2 [Moles/Vol] 24 mmol/L 22 - 30 mmol/L [facility] Creatinine [Mass/Vol] 0.60 mg/dL 0.58 - 0.96 mg/dL [facility] Estimated Glomerular Filtration Rate 123 mL/min/1.73m >=60 mL/min/1.73m [facility] Glucose [Mass/Vol] 93 mg/dL 74 - 99 mg/dL [facility] Potassium [Moles/Vol] 4.0 mmol/L 3.7 - 5.1 mmol/L [facility] Protein [Mass/Vol] 6.6 g/dL 6.3 - 8.0 g/dL [facility] Sodium [Moles/Vol] 139 mmol/L 136 - 144 mmol/L [facility] Urea nitrogen [Mass/Vol] 10 mg/dL 7 - 21 mg/dL [facility] MAGNESIUM BLDon 05-22-2022 Magnesium [Mass/Vol] 1.9 mg/dL 1.7 - 2.3 mg/dL [facility] MG Breast specimen - left Vi ewson 04-17-2022 IMPRESSION: UNI-PLAN AR RADIOGRAPH SPECIMEN IMAGING The imaged specimen includes biopsy clips. There are two Q clips, an hourglass, an a coil clip seen in the specimen radiograph. SUMMARY: Urgent Results: The results of the specimen radiograph were discussed with Dr. Null in the OR on 04/17/2022. Anamika Jurado M.D., cp/aydee:04/17/2022 12:36:28 [employer] Furnace Tender(s): RT Barrie(R)(M), [facility] Multiple national specialty organizations have released breast cancer screening guidelines for women at average risk for developing breast cancer - guidelines that are based on both evidence and opinion, yet differ on when to start and how often to screen for breast cancer. With representation from Breast Imaging, Internal Medicine, Women's Health, Family Medicine, and Medical/Surgical Oncology, the [facility] has carefully reviewed the data and reached the following consensus: 1) All women should engage in shared decision-making with their providers to decide when to start and how often to screen; 2) All women should have the opportunity to start screening mammography at age 40; 3) For women ages 45-55, we recommend annual screening mammograms; 4) For women ages 55 and over, we support both the transition from an annual to a biennial interval if this aligns more with patient's values and preferences, or continuation with annual screening; 5) All women should discuss with their providers when to stop screening mammograms. Transportation Worker: Aydee Transcribe Date/Time: Apr 17 2022 12:29P Dictated by: ANAMIKA JURADO MD This examination was interpreted and the report reviewed and electronically signed by: ANAMIKA JURADO MD on Apr 17 2022 12:36PM [facility] DIVISION OF RADIOLOGY * * *Final Report* * * DATE OF EXAM: Apr 17 2022 12:31PM [facility] 0638 - [facility] SURGICAL BREAST SPECIMEN LT / PROCEDURE REASON: multiple diagnoses * * * * Physician Interpretation * * * * RESULT: #[id number] - [facility] SURGICAL BREAST SPECIMEN LT UNI-PLANAR RADIOGRAPH SPECIMEN IMAGING LEFT BREAST: 04/17/2022 HISTORY: Left breast specimen. Correlation is made to exams dated: 03/08/2022 mammogram, 03/08/2022 ultrasound - [facility], 03/07/2022 breast MRI [facility], 11/10/2021 mammogram, and 11/10/2021 MRI biopsy - [facility]. A full mastectomy specimen was imaged using uni-planar radiograph specimen imaging for the previous biopsy site located in the left breast. DIVISION OF RADIOLOGY Provider, [facility] - 04/17/2022 * * *Final Report* * * DATE OF EXAM: Apr 17 2022 12:31PM [facility] 0638 - [facility] SURGICAL BREAST SPECIMEN LT / PROCEDURE REASON: multiple diagnoses * * * * Physician Interpretation * * * * RESULT: #[id number] - [facility] SURGICAL BREAST SPECIMEN LT UNI-PLANAR RADIOGRAPH SPECIMEN IMAGING LEFT BREAST: 04/17/2022 HISTORY: Left breast specimen. Correlation is made to exams dated: 03/08/2022 mammogram, 03/08/2022 ultrasound - [facility], 03/07/2022 breast MRI - [facility], 11/10/2021 mammogram, and 11/10/2021 MRI biopsy - [facility]. A full mastectomy specimen was imaged using uni-planar radiograph specimen imaging for the previous biopsy site located in the left breast. IMPRESSION IMPRESSION: UNI-PLANAR RADIOGRAPH SPECIMEN IMAGING The imaged specimen includes biopsy clips. There are two Q clips, an hourglass, an a coil clip seen in the specimen radiograph. SUMMARY: Urgent Results: The results of the specimen radiograph were discussed with Dr. Null in the OR on 04/17/2022. Anamika Jurado M.D., cp/aydee:04/17/2022 12:36:28 [employer]ide Furnace Tender(s): RT Barrie(R)(M), [facility] Multiple national specialty organizations have released breast cancer screening guidelines for women at average risk for developing breast cancer - guidelines that are based on both evidence and opinion, yet differ on when to start and how often to screen for breast cancer. With representation from Breast Imaging, Internal Medicine, Women's Health, Family Medicine, and Medical/Surgical Oncology, the [facility] has carefully reviewed the data and reached the following consensus: 1) All women should engage in shared decision-making with their providers to decide when to start and how often to screen; 2) All women should have the opportunity to start screening mammography at age 40; 3) For women ages 45-55, we recommend annual screening mammograms; 4) For women ages 55 and over, we support both the transition from an annual to a biennial interval if this aligns more with patient's values and preferences, or continuation with annual screening; 5) All women should discuss with their providers when to stop screening mammograms. Transportation Worker: Aydee Transcribe Date/Time: Apr 17 2022 12:29P Dictated by: ANAMIKA JURADO MD This examination was interpreted and the report reviewed and electronically signed by: ANAMIKA JURADO MD on Apr 17 2022 12:36PM EST [facility] [place] Lymph node Viewson 2021 IMPRESSION: Left breast radiotracer injection. Transportation Worker: CRISTINE Transcribe Date/Time: Apr 17 2022 10:19A Dictated by : ANAMIKA JURADO MD This examination was interpreted and the report reviewed and electronically signed by: ANAMIKA JURAOD MD on Apr 17 2022 10:20AM EST DIVISION OF RADIOLOGY * * *Final Report* * * DATE OF EXAM: Apr 17 2022 8:07AM STN 2191 - [place] INJ SENT NODE BREAST LT / PROCEDURE REASON: Invasive ductal carcinoma of breast, left (HCC) * * * * Physician Interpretation * * * * BREAST LYMPHOSCINTIGRAPHY: HISTORY: Breast cancer. TECHNIQUE: Prior to radiopharmaceutical administration, the injection site was verified with the electronic medical record and with the nuclear operations specialist. 469.9 microcuries of filtered technetium-99m sulfur colloid combined with 40 mg Lidocaine were injected in three aliquots into the retroareolar tissue of the left breast. RESULT: No imaging was obtained. DIVISION OF RADIOLOGY Provider, [facility] - 04/17/2022 * * *Final Report* * * DATE OF EXAM: Apr 17 2022 8:07AM STN 2191 - [place] INJ SENT NODE BREAST LT / PROCEDURE REASON: Invasive ductal carcinoma of breast, left (HCC) * * * * Physician Interpretation * * * * BREAST LYMPHOSCINTIGRAPHY: HISTORY: Breast cancer. TECHNIQUE: Prior to radiopharmaceutical administration, the injection site was verified with the electronic medical record and with the nuclear operations specialist. 469.9 microcuries of filtered technetium-99m sulfur colloid combined with 40 mg Lidocaine were injected in three aliquots into the retroareolar tissue of the left breast. RESULT: No imaging was obtained. IMPRESSION IMPRESSION: Left breast radiotracer injection. Transportation Worker: CRISTINE Transcribe Date/Time: Apr 17 2022 10:19A Dictated by : ANAMIKA JURADO MD This examination was interpreted and the report reviewed and electronically signed by: ANAMIKA JURADO MD on Apr 17 2022 10:20AM EST [facility] [place] Lymph node ViewsOrdered B y: [facility] Provider on 04-17-2022 [facility] No Panel Informationon 04-17 Radiology Study observation (narrative) [facility] CBC W Auto Differential pane l (Bld)on 03-14-2022 Abs Immature Gran <0.10 k/uL [facility] Basophils (Bld) [#/Vol] <0.11 k/uL [facility] Basophils/100 WBC (Bld) 0.3 % [facility] Differential cell count method Nom (Bld) Auto [facility] Eosinophils (Bld) [#/Vol] <0.46 k/uL [facility] Eosinophils/100 WBC (Bld) 0.2 % [facility] Erythrocyte distribution width (RBC) [Ratio] 17.0 % High 11.5 - 15.0 % [facility] Hematocrit (Bld) [Volume fraction] 30.7 % Low 36.0 - 46.0 % [facility] Hemoglobin (Bld) [Mass/Vol] 9.9 g/dL Low 11.5 - 15.5 g/dL [facility] Immature Gran % 0.3 % [facility] Lymphocytes (Bld) [#/Vol] 1.72 10*3/uL 1.00 - 4.00 k/uL [facility] Lymphocytes/100 WBC (Bld) 27.5 % [facility] MCH (RBC) [Entitic mass] 30.0 pg 26.0 - 34.0 pg [facility] MCHC (RBC) [Mass/Vol] 32.2 g/dL 30.5 - 36.0 g/dL [facility] MCV (RBC) [Entitic vol] 93.0 fL 80.0 - 100.0 fL [facility] Monocytes (Bld) [#/Vol] 0.67 10*3/uL <0.87 k/uL [facility] Monocytes/100 WBC (Bld) 10.7 % [facility] Neutrophils (Bld) [#/Vol] 3.82 10*3/uL 1.45 - 7.50 k/uL [facility] Neutrophils/100 WBC (Bld) 61.0 % [facility] Nucleated RBC (Bld) [#/Vol] <0.01 k/uL [facility] Nucleated RBC/100 WBC (Bld) [Ratio] 0.0 /100 WBC [facility] Platelet mean volume (Bld) [Entitic vol] 10.3 fL 9.0 - 12.7 fL [facility] Platelets (Bld) [#/Vol] 99 10*3/uL Low 150 - 400 k/uL [facility] RBC (Bld) [#/Vol] 3.30 10*6/uL Low 3.90 - 5.2 0 m/uL [facility] WBC (Bld) [#/Vol] 6.26 10*3/uL 3.70 - 11. 00 k/uL [facility] Comprehensive metabolic 2000 panelon 03-09-2022 Albumin [Mass/Vol] 4.0 g/dL 3.9 - 4.9 g/dL [facility] ALP [Catalytic activity/Vol] 95 U/L 34 - 123 U/L [facility] ALT [Catalytic activity/Vol] 14 U/L 7 - 38 U/L [facility] Anion gap [Moles/Vol] 10 mmol/L 9 - 18 mmol/L [facility] AST [Catalytic activity/Vol] 22 U/L 13 - 35 U/L [facility] Bilirubin [Mass/Vol] 0.2 mg/dL 0.2 - 1.3 mg/dL [facility] Calcium [Mass/Vol] 8.8 mg/dL 8.5 - 10. 2 mg/dL [facility] Chloride [Moles/Vol] 107 mmol/L High 97 - 105 mmol/L [facility] CO2 [Moles/Vol] 23 mmol/L 22 - 30 mmol/L [facility] Creatinine [Mass/Vol] 0.61 mg/dL 0.58 - 0.96 mg/dL [facility] Estimated Glomerular Filtration Rate 124 mL/min/1.73m >=60 mL/min/1.73m [facility] Glucose [Mass/Vol] 135 mg/dL High 74 - 99 mg/dL [facility] Potassium [Moles/Vol] 3.7 mmol/L 3.7 - 5.1 mmol/L [facility] Protein [Mass/Vol] 6.2 g/dL Low 6.3 - 8.0 g/dL [facility] Sodium [Moles/Vol] 140 mmol/L 136 - 144 mmol/L [facility] Urea nitrogen [Mass/Vol] 10 mg/dL 7 - 21 mg/dL [facility] MAGNESIUM BLDon 03-09-2022 Magnesium [Mass/Vol] 1.7 mg/dL 1.7 - 2.3 mg/dL [facility] DBT Breast - left diagnostic for implanton 03-08-2022 * * *Final Report* * * DATE OF EXAM: Mar 08 2022 1:47PM [facility] 0628 - JOSE A TOMMY GODINEZ LT / PROCEDURE REASON: multiple diagnoses * * * * Physician Interpretation * * * * RESULT: #[id number] - M-DISC TOMMY GODINEZ LT #[id number] - [facility] LT UNILATERAL LEFT DIGITAL DIAGNOSTIC MAMMOGRAM TOMOSYNTHESIS WITH CAD: 03/08/2022 HISTORY: Patient with known carcinoma in the left breast at 1:00, currently on neoadjuvant chemotherapy, here for imaging evaluation of treatment response. Patient had a right breast screening exam in September 2021 which was negative, and just imaging of the left breast was performed today. She reports no new symptoms. RESULT: TECHNIQUE: The study was acquired using full field digital technology and interpreted from soft copy. Digital Breast Tomosynthesis (DBT) images were obtained and used to assist in the interpretation of this examination. Current study was also evaluated with a Computer Aided Detection (CAD). Comparison is made to exams dated: 11/10/2021 mammogram, 11/10/2021 MRI biopsy - [facility], 11/01/2021 stereotactic biopsy, and 11/01/2021 breast MRI - [facility]. The tissue of left breast is heterogeneously dense. This may lower the sensitivity of mammography. Group of pleomorphic calcifications in the upper outer aspect of the left breast, posterior depth, with associated cortical clip, at site of known carcinoma. Multiple additional clips also seen in the left breast, including sites of benign concordant, benign discordant, and atypia. DIVISION OF RADIOLOGY Provider, [facility] - 03/08/2022 * * *Final Report* * * DATE OF EXAM: Mar 08 2022 1:47PM [facility] 0628 - [employer] LT / PROCEDURE REASON: multiple diagnoses * * * * Physician Interpretation * * * * RESULT: #[id number] - [employer] #[id number] - [employer] LT UNILATERAL LEFT DIGITAL DIAGNOSTIC MAMMOGRAM TOMOSYNTHESIS WITH CAD: 03/08/2022 HISTORY: Patient with known carcinoma in the left breast at 1:00, currently on neoadjuvant chemotherapy, here for imaging evaluation of treatment response. Patient had a right breast screening exam in September 2021 which was negative, and just imaging of the left breast was performed today. She reports no new symptoms. RESULT: TECHNIQUE: The study was acquired using full field digital technology and interpreted from soft copy. Digital Breast Tomosynthesis (DBT) images were obtained and used to assist in the interpretation of this examination. Current study was also evaluated with a Computer Aided Detection (CAD). Comparison is made to exams dated: 11/10/2021 mammogram, 11/10/2021 MRI biopsy - [facility] [place], 11/01/2021 stereotactic biopsy, and 11/01/2021 breast [facility]. The tissue of left breast is heterogeneously dense. This may lower the sensitivity of mammography. Group of pleomorphic calcifications in the upper outer aspect of the left breast, posterior depth, with associated cortical clip, at site of known carcinoma. Multiple additional clips also seen in the left breast, including sites of benign concordant, benign discordant, and atypia. IMPRESSION IMPRESSION: KNOWN BIOPSY PROVEN MALIGNANCY Group of pleomorphic calcifications in the upper outer aspect of the left breast, posterior depth, with associated cortical clip, at site of known carcinoma. Target ultrasound will be also performed. LIMITED ULTRASOUND OF LEFT BREAST AND AXILLA: 03/08/2022 RESULT: Comparison is made to exams dated: 11/10/2021 mammogram, 11/10/2021 MRI biopsy - [facility] [place], 11/01/2021 stereotactic biopsy, and 11/01/2021 breast MRI - [facility]. Color flow and real-time ultrasound of the left breast axilla were performed. Steve scale images of the real-time examination were reviewed. No abnormalities were seen sonographically in the left axilla. There is a 0.8 x 0.7 and by 0.8 cm irregular mass with angular and spiculated margins in the left breast at 1:00 8 cmfn, with associated biopsy clip, at site of known carcinoma. This mass has size from prior exam dated 10/04/2021, which measured approximately 1.3 x 1.1 x 1.3 cm. IMPRESSION: KNOWN BIOPSY PROVEN MALIGNANCY Interval decrease in size of known carcinoma in the left breast at 1:00 since prior exam dated 10/04/2021, consistent with imaging response to neoadjuvant chemotherapy. Continued surgical/oncologic management is recommended. Patient is under the care of Dr. Null. Anamika Jurado M.D., cp/aydee:03/08/2022 14:10:01 Multiple national specialty organizations have released breast cancer screening guidelines for women at average risk for developing breast cancer - guidelines that are based on both evidence and opinion, yet differ on when to start and how often to screen for breast cancer. With representation from Breast Imaging, Internal Medicine, Women's Health, Family Medicine, and Medical/Surgical Oncology, the [facility] has carefully reviewed the data and reached the following consensus: 1) All women should engage in shared decision-making with their providers to decide when to start and how often to screen; 2) All women should have the opportunity to start screening mammography at age 40; 3) For women ages 45-55, we recommend annual screening mammograms; 4) For women ages 55 and over, we support both the transition from an annual to a biennial interval if this aligns more with patient's values and preferences, or continuation with annual screening; 5) All women should discuss with their providers when to stop screening mammograms. [employer] Furnace Tender(s): Destiny Ambrose, RT(R)(M), [facility]; RT Sukh R M, [facility] OVERALL STUDY BIRADS: 6 Known biopsy proven malignancy Transportation Worker: Aydee Transcribe Date/Time: Mar 08 2022 1:33P Dictated by: ANAMIKA JURADO MD This examination was interpreted and the report reviewed and electronically signed by: ANAMIKA JURADO MD on Mar 08 2022 2:10PM EST [facility] No Panel Informationon 03-08 IMPRESSION: KNOWN BIOPSY PROVEN MALIGNANCY Group of pleomorphic calcifications in the upper outer aspect of the left breast, posterior depth, with associated cortical clip, at site of known carcinoma. Target ultrasound will be also performed. LIMITED ULTRASOUND OF LEFT BREAST AND AXILLA: 03/08/2022 RESULT: Comparison is made to exams dated: 11/10/2021 mammogram, 11/10/2021 [facility] biopsy - [facility] [place], 11/01/2021 stereotactic biopsy, and 11/01/2021 breast MRI - [facility]. Color flow and real-time ultrasound of the left breast axilla were performed. Steve scale images of the real-time examination were reviewed. No abnormalities were seen sonographically in the left axilla. There is a 0.8 x 0.7 and by 0.8 cm irregular mass with angular and spiculated margins in the left breast at 1:00 8 cmfn, with associated biopsy clip, at site of known carcinoma. This mass has size from prior exam dated 10/04/2021, which measured approximately 1.3 x 1.1 x 1.3 cm. IMPRESSION: KNOWN BIOPSY PROVEN MALIGNANCY Interval decrease in size of known carcinoma in the left breast at 1:00 since prior exam dated 10/04/2021, consistent with imaging response to neoadjuvant chemotherapy. Continued surgical/oncologic management is recommended. Patient is under the care of Dr. Null. Anamika Jurado M.D. donna/aydee:03/08/2022 14:10:01 Multiple national specialty organizations have released breast cancer screening guidelines for women at average risk for developing breast cancer - guidelines that are based on both evidence and opinion, yet differ on when to start and how often to screen for breast cancer. With representation from Breast Imaging, Internal Medicine, Women's Health, Family Medicine, and Medical/Surgical Oncology, the [facility] has carefully reviewed the data and reached the following consensus: 1) All women should engage in shared decision-making with their providers to decide when to start and how often to screen; 2) All women should have the opportunity to start screening mammography at age 40; 3) For women ages 45-55, we recommend annual screening mammograms; 4) For women ages 55 and over, we support both the transition from an annual to a biennial interval if this aligns more with patient's values and preferences, or continuation with annual screening; 5) All women should discuss with their providers when to stop screening mammograms. Oxide Furnace Tender(s): Destiny Ambrose RT(R)(M), [facility]; RT Sukh R M, [facility] OVERALL STUDY BIRADS: 6 Known biopsy proven malignancy Transportation Worker: Aydee Transcribe Date/Time: Mar 08 2022 1:33P Dictated by: ANAMIKA JURADO MD This examination was interpreted and the report reviewed and electronically signed by: ANAMIKA JURADO MD on Mar 08 2022 2:10PM [facility] DIVISION OF RADIOLOGY Radiology Study observation (narrative) [facility] No Panel InformationOrdered By: [facility] Provider on 03-08-2022 [facility] US Breast - left limitedon 0 03-08-2022 * * *Final Report* * * DATE OF EXAM: Mar 08 2022 2:02PM [facility] 0593 - [employer] BREAST [employer] LT / PROCEDURE REASON: multiple diagnoses * * * * Physician Interpretation * * * * RESULT: #[id number] - JOSE A GILDAG W GRETCHEN LT #[id number] - [facility] [employer] LT UNILATERAL LEFT DIGITAL DIAGNOSTIC MAMMOGRAM TOMOSYNTHESIS WITH CAD: 03/08/2022 HISTORY: Patient with known carcinoma in the left breast at 1:00, currently on neoadjuvant chemotherapy, here for imaging evaluation of treatment response. Patient had a right breast screening exam in September 2021 which was negative, and just imaging of the left breast was performed today. She reports no new symptoms. RESULT: TECHNIQUE: The study was acquired using full field digital technology and interpreted from soft copy. Digital Breast Tomosynthesis (DBT) images were obtained and used to assist in the interpretation of this examination. Current study was also evaluated with a Computer Aided Detection (CAD). Comparison is made to exams dated: 11/10/2021 mammogram, 11/10/2021 MRI biopsy - [facility] [place], 11/01/2021 stereotactic biopsy, and 11/01/2021 breast MRI - [facility]. The tissue of left breast is heterogeneously dense. This may lower the sensitivity of mammography. Group of pleomorphic calcifications in the upper outer aspect of the left breast, posterior depth, with associated cortical clip, at site of known carcinoma. Multiple additional clips also seen in the left breast, including sites of benign concordant, benign discordant, and atypia. DIVISION OF RADIOLOGY Provider, [facility] - 03/08/2022 * * *Final Report* * * DATE OF EXAM: Mar 08 2022 2:02PM [facility] 0593 - [employer] BREAST [employer] LT / PROCEDURE REASON: multiple diagnoses * * * * Physician Interpretation * * * * RESULT: #[id number] - [employer] LT #[id number] - [facility] [employer] LT UNILATERAL LEFT DIGITAL DIAGNOSTIC MAMMOGRAM TOMOSYNTHESIS WITH CAD: 03/08/2022 HISTORY: Patient with known carcinoma in the left breast at 1:00, currently on neoadjuvant chemotherapy, here for imaging evaluation of treatment response. Patient had a right breast screening exam in September 2021 which was negative, and just imaging of the left breast was performed today. She reports no new symptoms. RESULT: TECHNIQUE: The study was acquired using full field digital technology and interpreted from soft copy. Digital Breast Tomosynthesis (DBT) images were obtained and used to assist in the interpretation of this examination. Current study was also evaluated with a Computer Aided Detection (CAD). Comparison is made to exams dated: 11/10/2021 mammogram, 11/10/2021 MRI biopsy - [facility] [place], 11/01/2021 stereotactic biopsy, and 11/01/2021 breast MRI - [facility]. The tissue of left breast is heterogeneously dense. This may lower the sensitivity of mammography. Group of pleomorphic calcifications in the upper outer aspect of the left breast, posterior depth, with associated cortical clip, at site of known carcinoma. Multiple additional clips also seen in the left breast, including sites of benign concordant, benign discordant, and atypia. IMPRESSION IMPRESSION: KNOWN BIOPSY PROVEN MALIGNANCY Group of pleomorphic calcifications in the upper outer aspect of the left breast, posterior depth, with associated cortical clip, at site of known carcinoma. Target ultrasound will be also performed. LIMITED ULTRASOUND OF LEFT BREAST AND AXILLA: 03/08/2022 RESULT: Comparison is made to exams dated: 11/10/2021 mammogram, 11/10/2021 MRI biopsy - [facility] [place], 11/01/2021 stereotactic biopsy, and 11/01/2021 breast MRI - [facility]. Color flow and real-time ultrasound of the left breast axilla were performed. Steve scale images of the real-time examination were reviewed. No abnormalities were seen sonographically in the left axilla. There is a 0.8 x 0.7 and by 0.8 cm irregular mass with angular and spiculated margins in the left breast at 1:00 8 cmfn, with associated biopsy clip, at site of known carcinoma. This mass has size from prior exam dated 10/04/2021, which measured approximately 1.3 x 1.1 x 1.3 cm. IMPRESSION: KNOWN BIOPSY PROVEN MALIGNANCY Interval decrease in size of known carcinoma in the left breast at 1:00 since prior exam dated 10/04/2021, consistent with imaging response to neoadjuvant chemotherapy. Continued surgical/oncologic management is recommended. Patient is under the care of Dr. Null. Anamika Jurado M.D., cp/aydee:03/08/2022 14:10:01 Multiple national specialty organizations have released breast cancer screening guidelines for women at average risk for developing breast cancer - guidelines that are based on both evidence and opinion, yet differ on when to start and how often to screen for breast cancer. With representation from Breast Imaging, Internal Medicine, Women's Health, Family Medicine, and Medical/Surgical Oncology, the [facility] has carefully reviewed the data and reached the following consensus: 1) All women should engage in shared decision-making with their providers to decide when to start and how often to screen; 2) All women should have the opportunity to start screening mammography at age 40; 3) For women ages 45-55, we recommend annual screening mammograms; 4) For women ages 55 and over, we support both the transition from an annual to a biennial interval if this aligns more with patient's values and preferences, or continuation with annual screening; 5) All women should discuss with their providers when to stop screening mammograms. [employer]ide Furnace Tender(s): Destiny Ambrose, RT(R)(M), [facility]; RT Sukh R M, [facility] OVERALL STUDY BIRADS: 6 Known biopsy proven malignancy Transportation Worker: Aydee Transcribe Date/Time: Mar 08 2022 1:33P Dictated by: ANAMIKA JURADO MD This examination was interpreted and the report reviewed and electronically signed by: ANAMIKA JURADO MD on Mar 08 2022 2:10PM EST [facility] MRI BREAST WO/W IVCON BILATo n 03-07-2022 [facility] CBC W Auto Differential pane l (Bld)on 02-16-2022 Abs Immature Gran <0.10 k/uL [facility] Basophils (Bld) [#/Vol] <0.11 k/uL [facility] Basophils/100 WBC (Bld) 0.5 % [facility] Differential cell count method Nom (Bld) Auto [facility] Eosinophils (Bld) [#/Vol] <0.46 k/uL [facility] Eosinophils/100 WBC (Bld) 0.0 % [facility] Erythrocyte distribution width (RBC) [Ratio] 18.2 % High 11.5 - 15.0 % [facility] Hematocrit (Bld) [Volume fraction] 33.0 % Low 36.0 - 46.0 % [facility] Hemoglobin (Bld) [Mass/Vol] 10.5 g/dL Low 11.5 - 15.5 g/dL [facility] Immature Gran % 0.3 % [facility] Lymphocytes (Bld) [#/Vol] 1.29 10*3/uL 1.00 - 4.00 k/uL [facility] Lymphocytes/100 WBC (Bld) 32.4 % [facility] MCH (RBC) [Entitic mass] 29.6 pg 26.0 - 34.0 pg [facility] MCHC (RBC) [Mass/Vol] 31.8 g/dL 30.5 - 36.0 g/dL [facility] MCV (RBC) [Entitic vol] 93.0 fL 80.0 - 100.0 fL [facility] Monocytes (Bld) [#/Vol] 0.61 10*3/uL <0.87 k/uL [facility] Monocytes/100 WBC (Bld) 15.3 % [facility] Neutrophils (Bld) [#/Vol] 2.05 10*3/uL 1.45 - 7.50 k/uL [facility] Neutrophils/100 WBC (Bld) 51.5 % [facility] Nucleated RBC (Bld) [#/Vol] <0.01 k/uL [facility] Nucleated RBC/100 WBC (Bld) [Ratio] 0.0 /100 WBC [facility] Platelet mean volume (Bld) [Entitic vol] 10.3 fL 9.0 - 12.7 fL [facility] Platelets (Bld) [#/Vol] 110 10*3/uL Low 150 - 400 k/uL [facility] RBC (Bld) [#/Vol] 3.55 10*6/uL Low 3.90 - 5.2 0 m/uL [facility] WBC (Bld) [#/Vol] 3.98 10*3/uL 3.70 - 11. 00 k/uL [facility] Comprehensive metabolic 2000 panelon 02-16-2022 Albumin [Mass/Vol] 4.2 g/dL 3.9 - 4.9 g/dL [facility] ALP [Catalytic activity/Vol] 84 U/L 34 - 123 U/L [facility] ALT [Catalytic activity/Vol] 20 U/L 7 - 38 U/L [facility] Anion gap [Moles/Vol] 7 mmol/L Low 9 - 18 mmol/L [facility] AST [Catalytic activity/Vol] 27 U/L 13 - 35 U/L [facility] Bilirubin [Mass/Vol] 0.3 mg/dL 0.2 - 1.3 mg/dL [facility] Calcium [Mass/Vol] 8.4 mg/dL Low 8.5 - 10. 2 mg/dL [facility] Chloride [Moles/Vol] 107 mmol/L High 97 - 105 mmol/L [facility] CO2 [Moles/Vol] 23 mmol/L 22 - 30 mmol/L [facility] Creatinine [Mass/Vol] 0.56 mg/dL Low 0.58 - 0.96 mg/dL [facility] Estimated Glomerular Filtration Rate 126 mL/min/1.73m >=60 mL/min/1.73m [facility] Glucose [Mass/Vol] 91 mg/dL 74 - 99 mg/dL [facility] Potassium [Moles/Vol] 4.0 mmol/L 3.7 - 5.1 mmol/L [facility] Protein [Mass/Vol] 6.3 g/dL 6.3 - 8.0 g/dL Cl [facility] Sodium [Moles/Vol] 137 mmol/L 136 - 144 mmol/L [facility] Urea nitrogen [Mass/Vol] 9 mg/dL 7 - 21 mg/dL [facility] [employer] BLDon 02-16-2022 Magnesium [Mass/Vol] 1.8 mg/dL 1.7 - 2.3 mg/dL [facility] CBC W Auto Differential pane l (Bld)on 01-04-2022 Abs Immature Gran <0.03 <0.10 k/uL [facility] Basophils (Bld) [#/Vol] 0.05 10*3/uL <0.11 k/uL [facility] Basophils/100 WBC (Bld) 1.1 % [facility] Differential cell count method Nom (Bld) Auto [facility] Eosinophils (Bld) [#/Vol] 10*3/uL <0.46 k/uL [facility] Eosinophils/100 WBC (Bld) 0.0 % [facility] Erythrocyte distribution width (RBC) [Ratio] 17.1 % High 11.5 - 15.0 % [facility] Hematocrit (Bld) [Volume fraction] 33.8 % Low 36.0 - 46.0 % [facility] Hemoglobin (Bld) [Mass/Vol] 11.0 g/dL Low 11.5 - 15.5 g/dL [facility] Immature Gran % 0.2 % [facility] Lymphocytes (Bld) [#/Vol] 1.73 10*3/uL 1.00 - 4.00 k/uL [facility] Lymphocytes/100 WBC (Bld) 37.7 % [facility] MCH (RBC) [Entitic mass] 28.4 pg 26.0 - 34.0 pg [facility] MCHC (RBC) [Mass/Vol] 32.5 g/dL 30.5 - 36.0 g/dL [facility] MCV (RBC) [Entitic vol] 87.3 fL 80.0 - 100.0 fL [facility] Monocytes (Bld) [#/Vol] 0.62 10*3/uL <0.87 k/uL [facility] Monocytes/100 WBC (Bld) 13.5 % [facility] Neutrophils (Bld) [#/Vol] 2.18 10*3/uL 1.45 - 7.50 k/uL [facility] Neutrophils/100 WBC (Bld) 47.5 % [facility] Nucleated RBC (Bld) [#/Vol] 10*3/uL <0.01 k/uL [facility] Nucleated RBC/100 WBC (Bld) [Ratio] 0.0 /100 WBC [facility] Platelet mean volume (Bld) [Entitic vol] 10.8 fL 9.0 - 12.7 fL [facility] Platelets (Bld) [#/Vol] 132 10*3/uL Low 150 - 400 k/uL [facility] RBC (Bld) [#/Vol] 3.87 10*6/uL Low 3.90 - 5.2 0 m/uL [facility] WBC (Bld) [#/Vol] 4.59 10*3/uL 3.70 - 11. 00 k/uL [facility] Comprehensive metabolic 2000 panelon 01-04-2022 Albumin [Mass/Vol] 4.1 g/dL 3.9 - 4.9 g/dL [facility] ALP [Catalytic activity/Vol] 110 U/L 34 - 123 U/L [facility] ALT [Catalytic activity/Vol] 19 U/L 7 - 38 U/L [facility] Anion gap [Moles/Vol] 9 mmol/L 9 - 18 mmol/L [facility] AST [Catalytic activity/Vol] 23 U/L 13 - 35 U/L [facility] Bilirubin [Mass/Vol] 0.2 mg/dL 0.2 - 1.3 mg/dL [facility] Calcium [Mass/Vol] 8.5 mg/dL 8.5 - 10. 2 mg/dL [facility] Chloride [Moles/Vol] 107 mmol/L High 97 - 105 mmol/L [facility] CO2 [Moles/Vol] 23 mmol/L 22 - 30 mmol/L [facility] Creatinine [Mass/Vol] 0.61 mg/dL 0.58 - 0.96 mg/dL [facility] Estimated Glomerular Filtration Rate 124 mL/min/1.73m >=60 mL/min/1.73m [facility] Glucose [Mass/Vol] 95 mg/dL 74 - 99 mg/dL [facility] Potassium [Moles/Vol] 4.0 mmol/L 3.7 - 5.1 mmol/L [facility] Protein [Mass/Vol] 6.3 g/dL 6.3 - 8.0 g/dL [facility] Sodium [Moles/Vol] 139 mmol/L 136 - 144 mmol/L [facility] Urea nitrogen [Mass/Vol] 10 mg/dL 7 - 21 mg/dL [facility] [employer]UM BLDon 01-04-2022 Magnesium [Mass/Vol] 1.9 mg/dL 1.7 - 2.3 mg/dL [facility] CBC W Auto Differential pane l (Bld)on 12-14-2021 Abs Immature Gran <0.03 <0.10 k/uL [facility] Basophils (Bld) [#/Vol] 0.06 10*3/uL <0.11 k/uL [facility] Basophils/100 WBC (Bld) 1.3 % [facility] Differential cell count method Nom (Bld) Auto [facility] Eosinophils (Bld) [#/Vol] 10*3/uL <0.46 k/uL [facility] Eosinophils/100 WBC (Bld) 0.0 % [facility] Erythrocyte distribution width (RBC) [Ratio] 15.6 % High 11.5 - 15.0 % [facility] Hematocrit (Bld) [Volume fraction] 33.8 % Low 36.0 - 46.0 % [facility] Hemoglobin (Bld) [Mass/Vol] 11.1 g/dL Low 11.5 - 15.5 g/dL [facility] Immature Gran % 0.2 % [facility] Lymphocytes (Bld) [#/Vol] 1.54 10*3/uL 1.00 - 4.00 k/uL [facility] Lymphocytes/100 WBC (Bld) 34.1 % [facility] MCH (RBC) [Entitic mass] 28.2 pg 26.0 - 34.0 pg [facility] MCHC (RBC) [Mass/Vol] 32.8 g/dL 30.5 - 36.0 g/dL [facility] MCV (RBC) [Entitic vol] 85.8 fL 80.0 - 100.0 fL [facility] Monocytes (Bld) [#/Vol] 0.50 10*3/uL <0.87 k/uL [facility] Monocytes/100 WBC (Bld) 11.1 % [facility] Neutrophils (Bld) [#/Vol] 2.41 10*3/uL 1.45 - 7.50 k/uL [facility] Neutrophils/100 WBC (Bld) 53.3 % [facility] Nucleated RBC (Bld) [#/Vol] 10*3/uL <0.01 k/uL [facility] Nucleated RBC/100 WBC (Bld) [Ratio] 0.0 /100 WBC [facility] Platelet mean volume (Bld) [Entitic vol] 11.2 fL 9.0 - 12.7 fL [facility] Platelets (Bld) [#/Vol] 206 10*3/uL 150 - 400 k/uL [facility] RBC (Bld) [#/Vol] 3.94 10*6/uL 3.90 - 5.2 0 m/uL [facility] WBC (Bld) [#/Vol] 4.52 10*3/uL 3.70 - 11. 00 k/uL [facility] Comprehensive metabolic 2000 panelon 12-14-2021 Albumin [Mass/Vol] 4.2 g/dL 3.9 - 4.9 g/dL [facility] ALP [Catalytic activity/Vol] 97 U/L 34 - 123 U/L [facility] ALT [Catalytic activity/Vol] 14 U/L 7 - 38 U/L [facility] Anion gap [Moles/Vol] 7 mmol/L Low 9 - 18 mmol/L [facility] AST [Catalytic activity/Vol] 19 U/L 13 - 35 U/L [facility] Bilirubin [Mass/Vol] 0.3 mg/dL 0.2 - 1.3 mg/dL [facility] Calcium [Mass/Vol] 8.7 mg/dL 8.5 - 10. 2 mg/dL [facility] Chloride [Moles/Vol] 108 mmol/L High 97 - 105 mmol/L [facility] CO2 [Moles/Vol] 25 mmol/L 22 - 30 mmol/L [facility] Creatinine [Mass/Vol] 0.62 mg/dL 0.58 - 0.96 mg/dL [facility] Estimated Glomerular Filtration Rate 123 mL/min/1.73m >=60 mL/min/1.73m [facility] Glucose [Mass/Vol] 92 mg/dL 74 - 99 mg/dL [facility] Potassium [Moles/Vol] 3.8 mmol/L 3.7 - 5.1 mmol/L [facility] Protein [Mass/Vol] 6.7 g/dL 6.3 - 8.0 g/dL [facility] Sodium [Moles/Vol] 140 mmol/L 136 - 144 mmol/L [facility] Urea nitrogen [Mass/Vol] 7 mg/dL 7 - 21 mg/dL [facility] MAGNESIUM BLDon 12-14-2021 Magnesium [Mass/Vol] 2.1 mg/dL 1.7 - 2.3 mg/dL [facility] CBC W Auto Differential pane l (Bld)on 11-23-2021 Abs Immature Gran <0.03 <0.10 k/uL [facility] Basophils (Bld) [#/Vol] 0.07 10*3/uL <0.11 k/uL [facility] Basophils/100 WBC (Bld) 1.2 % [facility] Differential cell count method Nom (Bld) Auto [facility] Eosinophils (Bld) [#/Vol] 0.12 10*3/uL <0.46 k/uL [facility] Eosinophils/100 WBC (Bld) 2.0 % [facility] Erythrocyte distribution width (RBC) [Ratio] 14.4 % 11.5 - 15.0 % [facility] Hematocrit (Bld) [Volume fraction] 37.9 % 36.0 - 46.0 % [facility] Hemoglobin (Bld) [Mass/Vol] 12.6 g/dL 11.5 - 15.5 g/dL [facility] Immature Gran % 0.2 % [facility] Lymphocytes (Bld) [#/Vol] 1.87 10*3/uL 1.00 - 4.00 k/uL [facility] Lymphocytes/100 WBC (Bld) 31.2 % [facility] MCH (RBC) [Entitic mass] 27.6 pg 26.0 - 34.0 pg [facility] MCHC (RBC) [Mass/Vol] 33.2 g/dL 30.5 - 36.0 g/dL [facility] MCV (RBC) [Entitic vol] 83.1 fL 80.0 - 100.0 fL [facility] Monocytes (Bld) [#/Vol] 0.46 10*3/uL <0.87 k/uL [facility] Monocytes/100 WBC (Bld) 7.7 % [facility] Neutrophils (Bld) [#/Vol] 3.46 10*3/uL 1.45 - 7.50 k/uL [facility] Neutrophils/100 WBC (Bld) 57.7 % [facility] Nucleated RBC (Bld) [#/Vol] 10*3/uL <0.01 k/uL [facility] Nucleated RBC/100 WBC (Bld) [Ratio] 0.0 /100 WBC [facility] Platelet mean volume (Bld) [Entitic vol] 11.2 fL 9.0 - 12.7 fL [facility] Platelets (Bld) [#/Vol] 216 10*3/uL 150 - 400 k/uL [facility] RBC (Bld) [#/Vol] 4.56 10*6/uL 3.90 - 5.2 0 m/uL [facility] WBC (Bld) [#/Vol] 5.99 10*3/uL 3.70 - 11. 00 k/uL [facility] Comprehensive metabolic 2000 panelon 11-23-2021 Albumin [Mass/Vol] 4.6 g/dL 3.9 - 4.9 g/dL [facility] ALP [Catalytic activity/Vol] 105 U/L 34 - 123 U/L [facility] ALT [Catalytic activity/Vol] 7 U/L 7 - 38 U/L [facility] Anion gap [Moles/Vol] 11 mmol/L 9 - 18 mmol/L [facility] AST [Catalytic activity/Vol] 15 U/L 13 - 35 U/L [facility] Bilirubin [Mass/Vol] 0.3 mg/dL 0.2 - 1.3 mg/dL [facility] Calcium [Mass/Vol] 9.0 mg/dL 8.5 - 10. 2 mg/dL [facility] Chloride [Moles/Vol] 105 mmol/L 97 - 105 mmol/L [facility] CO2 [Moles/Vol] 22 mmol/L 22 - 30 mmol/L [facility] Creatinine [Mass/Vol] 0.73 mg/dL 0.58 - 0.96 mg/dL [facility] Estimated Glomerular Filtration Rate 114 mL/min/1.73m >=60 mL/min/1.73m [facility] Glucose [Mass/Vol] 84 mg/dL 74 - 99 mg/dL [facility] Potassium [Moles/Vol] 3.9 mmol/L 3.7 - 5.1 mmol/L [facility] Protein [Mass/Vol] 7.6 g/dL 6.3 - 8.0 g/dL [facility] Sodium [Moles/Vol] 138 mmol/L 136 - 144 mmol/L [facility] Urea nitrogen [Mass/Vol] 11 mg/dL 7 - 21 mg/dL [facility] MAGNESIUM [facility] 11-23-2021 Magnesium [Mass/Vol] 2.0 mg/dL 1.7 - 2.3 mg/dL [facility] ESTRADIOL-17B BLDon 11-11-19 E2 [Mass/Vol] 92 pg/mL [facility] Laboratory - Chemistry and C hemistry - challengeon 11-10-2021 Progesterone [Mass/Vol] 0.6 ng/mL See comment ng/mL [facility] JOSE A DIAGNOSTIC LTon 11-11-19 [facility] MRI BREAST BX WO/W IVCON LTo n 11-10-2021 [facility] Estradiol SerPl-mCncon 11-09 E2 [Mass/Vol] 95 pg/mL Normal See comment [facility] Comment on above: Order Comment: Speci men Type: BLOOD SPECIMEN Ordering Facility: Address: [address] [place] [address] Result Comment: Refe rence range: Follicular: 19.5-144.2 Midcycle: 63.9-356.7 Luteal: 55.8-214.2 Postmenopausal: <32.2 Performed By: #### 2 [id number] #### [facility] CLIA [id number] [address] [place] [address] [place] [facility] CBC W Auto Differential pane l (Bld)on 11-08-2021 Abs Immature Gran <0.03 <0.10 k/uL [facility] Basophils (Bld) [#/Vol] 0.05 10*3/uL <0.11 k/uL [facility] Basophils/100 WBC (Bld) 0.9 % [facility] Differential cell count method Nom (Bld) Auto [facility] Eosinophils (Bld) [#/Vol] 0.18 10*3/uL <0.46 k/uL [facility] Eosinophils/100 WBC (Bld) 3.4 % [facility] Erythrocyte distribution width (RBC) [Ratio] 14.4 % 11.5 - 15.0 % [facility] Hematocrit (Bld) [Volume fraction] 37.4 % 36.0 - 46.0 % [facility] Hemoglobin (Bld) [Mass/Vol] 12.4 g/dL 11.5 - 15.5 g/dL [facility] Immature Gran % 0.2 % [facility] Lymphocytes (Bld) [#/Vol] 1.52 10*3/uL 1.00 - 4.00 k/uL [facility] Lymphocytes/100 WBC (Bld) 28.4 % [facility] MCH (RBC) [Entitic mass] 27.9 pg 26.0 - 34.0 pg [facility] MCHC (RBC) [Mass/Vol] 33.2 g/dL 30.5 - 36.0 g/dL [facility] MCV (RBC) [Entitic vol] 84.0 fL 80.0 - 100.0 fL [facility] Monocytes (Bld) [#/Vol] 0.49 10*3/uL <0.87 k/uL [facility] Monocytes/100 WBC (Bld) 9.1 % [facility] Neutrophils (Bld) [#/Vol] 3.11 10*3/uL 1.45 - 7.50 k/uL [facility] Neutrophils/100 WBC (Bld) 58.0 % [facility] Nucleated RBC (Bld) [#/Vol] 10*3/uL <0.01 k/uL [facility] Nucleated RBC/100 WBC (Bld) [Ratio] 0.0 /100 WBC [facility] Platelet mean volume (Bld) [Entitic vol] 11.3 fL 9.0 - 12.7 fL [facility] Platelets (Bld) [#/Vol] 174 10*3/uL 150 - 400 k/uL [facility] RBC (Bld) [#/Vol] 4.45 10*6/uL 3.90 - 5.2 0 m/uL [facility] WBC (Bld) [#/Vol] 5.36 10*3/uL 3.70 - 11. 00 k/uL [facility] Comprehensive metabolic 2000 panelon 11-08-2021 Albumin [Mass/Vol] 4.5 g/dL 3.9 - 4.9 g/dL [facility] ALP [Catalytic activity/Vol] 100 U/L 34 - 123 U/L [facility] ALT [Catalytic activity/Vol] 8 U/L 7 - 38 U/L [facility] Anion gap [Moles/Vol] 11 mmol/L 9 - 18 mmol/L [facility] AST [Catalytic activity/Vol] 16 U/L 13 - 35 U/L [facility] Bilirubin [Mass/Vol] 0.4 mg/dL 0.2 - 1.3 mg/dL [facility] Calcium [Mass/Vol] 8.8 mg/dL 8.5 - 10. 2 mg/dL [facility] Chloride [Moles/Vol] 106 mmol/L High 97 - 105 mmol/L [facility] CO2 [Moles/Vol] 23 mmol/L 22 - 30 mmol/L [facility] Creatinine [Mass/Vol] 0.63 mg/dL 0.58 - 0.96 mg/dL [facility] Estimated Glomerular Filtration Rate 123 mL/min/1.73m >=60 mL/min/1.73m [facility] Glucose [Mass/Vol] 99 mg/dL 74 - 99 mg/dL [facility] Potassium [Moles/Vol] 3.8 mmol/L 3.7 - 5.1 mmol/L [facility] Protein [Mass/Vol] 7.4 g/dL 6.3 - 8.0 g/dL [facility] Sodium [Moles/Vol] 140 mmol/L 136 - 144 mmol/L [facility] Urea nitrogen [Mass/Vol] 9 mg/dL 7 - 21 mg/dL [facility] Laboratory - Chemistry and C hemistry - challengeon 11-08-2021 Magnesium [Mass/Vol] 2.0 mg/dL 1.7 - 2.3 mg/dL [facility] ESTRADIOL-17B BLDon 11-07-19 E2 [Mass/Vol] 46 pg/mL [facility] FOLLICULAR US WHIon 11-07-19 [facility] HEMATOCRIT (HCT)on Hematocrit (Bld) [Volume fraction] 39.0 % 36.0 - 46.0 % [facility] C. trachomatis+N. gonorrhoea e DNA KELTON+probe Ql (U)on 11-02-2021 C. trachomatis DNA KELTON+probe Ql (Unsp spec) Negative Negative for Chlamydia trachomatis by amplificaton [facility] N. gonorrhoeae DNA KELTON+probe Ql (Unsp spec) Negative Negative for Neisseria gonorrhoeae by amplification [facility] Comprehensive metabolic 2000 panelon 11-01-2021 Albumin [Mass/Vol] 4.5 g/dL 3.9 - 4.9 g/dL [facility] ALP [Catalytic activity/Vol] 109 U/L 34 - 123 U/L [facility] ALT [Catalytic activity/Vol] 7 U/L 7 - 38 U/L [facility] Anion gap [Moles/Vol] 11 mmol/L 9 - 18 mmol/L [facility] AST [Catalytic activity/Vol] 13 U/L 13 - 35 U/L [facility] Bilirubin [Mass/Vol] 0.3 mg/dL 0.2 - 1.3 mg/dL [facility] Calcium [Mass/Vol] 9.1 mg/dL 8.5 - 10. 2 mg/dL [facility] Chloride [Moles/Vol] 106 mmol/L High 97 - 105 mmol/L [facility] CO2 [Moles/Vol] 25 mmol/L 22 - 30 mmol/L [facility] Creatinine [Mass/Vol] 0.68 mg/dL 0.58 - 0.96 mg/dL [facility] Estimated Glomerular Filtration Rate 120 mL/min/1.73m >=60 mL/min/1.73m [facility] Glucose [Mass/Vol] 93 mg/dL 74 - 99 mg/dL [facility] Potassium [Moles/Vol] 4.0 mmol/L 3.7 - 5.1 mmol/L [facility] Protein [Mass/Vol] 6.9 g/dL 6.3 - 8.0 g/dL [facility] Sodium [Moles/Vol] 142 mmol/L 136 - 144 mmol/L [facility] Urea nitrogen [Mass/Vol] 6 mg/dL Low 7 - 21 mg/dL [facility] FOLLICULAR US WHIon 11-02-19 22 [facility] HBV surface Ab IA Ql (S)on 0 11-01-2021 HBV surface Ag Ql (S) Negative Negative [facility] HIV 1+2 Ab IA Qlon 2 HIV 1 and 2 Ab IA.rapid Nom [facility] HIV 1+2 Ab+HIV1 p24 Ag IA Ql Non-Reactive Nonreactive [facility] HIV Interpretation [facility] Laboratory - Chemistry and C hemistry - challengeon 11-01-2021 [place]erian inhibiting substance [Mass/Vol] 1.09 ng/mL 0.58 - 8.13 ng/mL [facility] Lutropin Qn 11.4 m[IU]/mL See comment mIU/mL [facility] Progesterone [Mass/Vol] 1.3 ng/mL High See comment ng/mL [facility] E2 [Mass/Vol] 64 pg/mL [facility] Laboratory - Microbiology an d Antimicrobial susceptibilityon 11-01-2021 HBV core Ab Ql (S) Negative Negative [facility] Reagin and Treponema pallidum IgG and IgM [Interp] Non-Reactive Nonreactive [facility] HCV Ab Ql (S) Negative Negative [facility] JOSE A DIAGNOSTIC LTon 11-02-19 22 JOSE A DIAGNOSTIC LT * * *Final Report* * * * * * SEE BOTTOM OF REPORT FOR ADDENDED TEXT * * * DATE OF EXAM: Nov 01 2021 10:33AM [facility] 0621 - JOSE A DIAGNOSTIC LT / PROCEDURE REASON: Breast disorder * * * * Physician Interpretation * * * * RESULT: FINAL REPORT #[id number] - [facility] US BIOPSY BREAST LT #[id number] - [facility] DIAGNOSTIC LT ULTRASOUND GUIDED BIOPSY LEFT BREAST WITH MARKING DEVICE INSERTED AND POST DIGITAL MAMMOGRAPHIC IMAGIN11/01/2021 HISTORY: Breast Disorder/ Patient presents for an ultrasound guided biopsy of the left breast. Breast Disorder/ Post breast biopsy clip placement. PATIENT CONSENT: A time out was performed immediately prior to procedure start with the radiology team, correctly identifying the patient name, date of , procedure, anatomy (including marking of site and side), patient position, relevant diagnostic and radiology test results, safety precautions, and procedure-specific equipment needs. The procedure was explained to the patient including the risks, benefits and alternatives. Medications and allergies were also reviewed. The risks, including but not limited to infection and bleeding, were reviewed by the performing physician and the patient agreed to undergo the procedure. The radiologist and technologist were present throughout the entire procedure. Dr. Vladovinos performed the entire procedure without an journeyman operator assistant. Audible Time Out Time: 10:17 Procedure Start Time: 10:20 Procedure Stop Time: 10:25 . Correlation is made to exams dated: 10/25/2021 ultrasound, 10/25/2021 mammogram - [facility], 10/20/2021 breast MRI - [facility], 10/07/2021 ultrasound biopsy, 10/04/2021 mammogram, and 10/04/2021 ultrasound. An ultrasound guided biopsy using real-time ultrasound was performed for the concerning mass located in the left breast at 10 o'clock posterior depth. This was described on the previous mammography and ultrasound reports. The skin was prepped in the usual manner. Local anesthetic was administered to the access site. A skin cassandra was made in the breast. The abnormality was approached from the caudocranial aspect. A 14 gauge biopsy needle was placed adjacent to the abnormality under ultrasound guidance. Once the needle was documented to be in the correct location, a specimen was obtained using an automated biopsy gun. The patient received additional local anesthetic during the procedure. A Q clip was inserted into the biopsy cavity. A skin closure strip and a sterile dressing were applied to the access site. Post procedure digital mammographic imaging demonstrates the location device at the targeted area. The specimen was sent to the laboratory for pathological analysis. IMPRESSION: ULTRASOUND GUIDED BIOPSY BENIGN Ultrasound guided biopsy of the mass in the left breast at 10 o'clock posterior depth was successful with no apparent post procedure complications. Pathology indicates benign fibroadenoma (FA). Pathology results are concordant with biopsy findings. UNILATERAL LEFT DIGITAL DIAGNOSTIC MAMMOGRAM WITH CAD: 11/01/2021 RESULT: TECHNIQUE: The study was acquired using full field digital technology and interpreted from soft copy. Current study was also evaluated with a Computer Aided Detection (CAD). Comparison is made to exams dated: 10/25/2021 ultrasound, 10/25/2021 mammogram - [facility], 10/20/2021 breast MRI - [facility], 10/07/2021 ultrasound biopsy, 10/04/2021 mammogram, and 10/04/2021 ultrasound. The tissue of left breast is heterogeneously dense. This may lower the sensitivity of mammography. There is a marker clip in the appropriate position in the left breast upper inner aspect. This is seen in additional views. This marker clip placement is at the biopsy site. IMPRESSION: POST PROCEDURE MAMMOGRAM FOR MARKER PLACEMENT There was a successful marker clip placement in the left breast upper inner aspect. SUMMARY: FINAL DIAGNOSIS A. Breast, left, upper outer aspect, calcifications, Twirl clip, stereotactic core biopsy: --Atypical ductal hyperplasia (ADH). --Microcalcifications are present in ducts adjacent to ADH. --Please see comment. ? B. Breast, left, at 10:00, 3 cm from the nipple, Q clip, ultrasound-guided core biopsy: --Fibroadenoma. Electronically signed by Amish Campos MD. Amelia Valdovinos M.D. fa/penrad:11/03/2021 13:07:38 [employer]ide Furnace Tender(s): RT Elis(R)(M), [facility] Mammogram BI-RADS: Post-procedure mammogram for marker placement Multiple national specialty organizations have released breast cancer screening guidelines for women at average risk for developing breast cancer - guidelines that are based on both evidence and opinion, yet differ on when to start and how often to screen for breast cancer. With representation from Breast Imaging, Internal Medicine, Women's Health, Family Medicine, and Medical/Surgical Oncology, the [facility] has carefully r (more content not included)... Normal [facility] STEREO BX BREAST LTon JOSE A STEREO BX BREAST LT * * *Final Report* * * * * * SEE BOTTOM OF REPORT FOR ADDENDED TEXT * * * DATE OF EXAM: Nov 01 2021 9:48AM HCW 0630 - JOSE A STEREO BX BREAST LT / PROCEDURE REASON: Breast disorder * * * * Physician Interpretation * * * * RESULT: FINAL REPORT #[id number] - JOSE A STEREO BX BREAST LT #[id number] - MRI CLIP PLACEMENT BREAST LT STEREOTACTIC GUIDED BIOPSY LEFT BREAST USING VACUUM DEVICE WITH MARKING DEVICE INSERTED AND POST DIGITAL MAMMOGRAPHIC IMAGIN11/01/2021 HISTORY: Breast Disorder/ Patient presents for a stereotactic guided biopsy of the left breast. Breast Disorder. PATIENT CONSENT: A time out was performed immediately prior to procedure start with the radiology team, correctly identifying the patient name, date of , procedure, anatomy (including marking of site and side), patient position, relevant diagnostic and radiology test results, safety precautions, and procedure-specific equipment needs. The procedure was explained to the patient including the risks, benefits and alternatives. Medications and allergies were also reviewed. The risks, including but not limited to infection and bleeding, were reviewed by the performing physician and the patient agreed to undergo the procedure. The radiologist and technologist were present throughout the entire procedure. Dr. Valdovinos performed the entire procedure without an journeyman operator assistant. Time out: 9:48 Procedure start: 9:58 Procedure end: 10:03. Correlation is made to exams dated: 10/25/2021 mammogram, 10/25/2021 ultrasound - [facility], and 10/20/2021 breast MRI - [facility]. A stereotactic guided biopsy was performed for the concerning area of grouped calcifications located in the left breast upper outer aspect. This was described on the previous mammography report. The skin was prepped in the usual manner. Local anesthetic was administered to the access site. A skin cassandra was made in the breast. The abnormality was approached from the lateral aspect using a prone table. A 10 gauge biopsy needle was placed adjacent to the abnormality under computer guidance and confirmatory stereotactic mammography images were obtained to document needle placement. Once the needle was documented to be in the correct location, three specimens were obtained using the [employer] system. The patient received additional local anesthetic during the procedure. A Twirl type clip was inserted into the biopsy cavity. A skin closure strip and a sterile dressing were applied to the access site. Post procedure digital mammographic imaging demonstrates the location device at the targeted area. The specimens were sent to the laboratory for pathological analysis. IMPRESSION: STEREOTACTIC GUIDED BIOPSY HIGH RISK BENIGN Stereotactic guided biopsy of the area of grouped calcifications in the left breast upper outer aspect was successful with no apparent post procedure complications. Pathology indicates high risk benign atypical ductal hyperplasia (ADH). Pathology results are concordant with biopsy findings. A surgical consultation is recommended. SUMMARY: FINAL DIAGNOSIS A. Breast, left, upper outer aspect, calcifications, Twirl clip, stereotactic core biopsy: ? --Atypical ductal hyperplasia (ADH). ? --Microcalcifications are present in ducts adjacent to ADH. ? --Please see comment. ? B. Breast, left, at 10:00, 3 cm from the nipple, Q clip, ultrasound-guided core biopsy: ? --Fibroadenoma. Electronically signed by Amish Campos MD The patient will be notified of the concordant pathology results by the Breast imaging navigator. Surgical consultation is recommended. Patient is under care of Dr. Null. Amelia Valdovinos M.D. fa/aydee:11/03/2021 13:08:53 Oxide Furnace Tender(s): Ana Rosa Law, RT(R)(M), [facility] ; RT Nathan(R), [facility] Multiple national specialty organizations have released breast cancer screening guidelines for women at average risk for developing breast cancer - guidelines that are based on both evidence and opinion, yet differ on when to start and how often to screen for breast cancer. With representation from Breast Imaging, Internal Medicine, Women's Health, Family Medicine, and Medical/Surgical Oncology, the [facility] has carefully reviewed the data and reached the following consensus: 1) All women should engage in shared decision-making with their providers to decide when to start and how often to screen; 2) All women should have the opportunity to start screening mammography at age 40; 3) For women ages 45-55, we recommend annual screening mammograms; 4) For women ages 55 and over, we support both the transition from an annual to a biennial interval if this aligns more with patient's values and preferences, or continuation with annual screening; 5) All women should discuss with their providers when to stop screening mammograms. Transcri (more content not included)... Normal [facility] US BIOPSY BREAST LTon [facility] US BIOPSY BREAST LT * * *Final Report* * * * * * SEE BOTTOM OF REPORT FOR ADDENDED TEXT * * * DATE OF EXAM: Nov 01 2021 10:30AM HCW 0597 - [facility] US BIOPSY BREAST LT / PROCEDURE REASON: Breast disorder * * * * Physician Interpretation * * * * RESULT: FINAL REPORT #[id number] - [facility] US BIOPSY BREAST LT #[id number] - [facility] DIAGNOSTIC LT ULTRASOUND GUIDED BIOPSY LEFT BREAST WITH MARKING DEVICE INSERTED AND POST DIGITAL MAMMOGRAPHIC IMAGIN11/01/2021 HISTORY: Breast Disorder/ Patient presents for an ultrasound guided biopsy of the left breast. Breast Disorder/ Post breast biopsy clip placement. PATIENT CONSENT: A time out was performed immediately prior to procedure start with the radiology team, correctly identifying the patient name, date of , procedure, anatomy (including marking of site and side), patient position, relevant diagnostic and radiology test results, safety precautions, and procedure-specific equipment needs. The procedure was explained to the patient including the risks, benefits and alternatives. Medications and allergies were also reviewed. The risks, including but not limited to infection and bleeding, were reviewed by the performing physician and the patient agreed to undergo the procedure. The radiologist and technologist were present throughout the entire procedure. Dr. Valdovinos performed the entire procedure without an journeyman operator assistant. Audible Time Out Time: 10:17 Procedure Start Time: 10:20 Procedure Stop Time: 10:25 . Correlation is made to exams dated: 10/25/2021 ultrasound, 10/25/2021 mammogram - [facility], 10/20/2021 breast MRI - [facility], 10/07/2021 ultrasound biopsy, 10/04/2021 mammogram, and 10/04/2021 ultrasound. An ultrasound guided biopsy using real-time ultrasound was performed for the concerning mass located in the left breast at 10 o'clock posterior depth. This was described on the previous mammography and ultrasound reports. The skin was prepped in the usual manner. Local anesthetic was administered to the access site. A skin cassandra was made in the breast. The abnormality was approached from the caudocranial aspect. A 14 gauge biopsy needle was placed adjacent to the abnormality under ultrasound guidance. Once the needle was documented to be in the correct location, a specimen was obtained using an automated biopsy gun. The patient received additional local anesthetic during the procedure. A Q clip was inserted into the biopsy cavity. A skin closure strip and a sterile dressing were applied to the access site. Post procedure digital mammographic imaging demonstrates the location device at the targeted area. The specimen was sent to the laboratory for pathological analysis. IMPRESSION: ULTRASOUND GUIDED BIOPSY BENIGN Ultrasound guided biopsy of the mass in the left breast at 10 o'clock posterior depth was successful with no apparent post procedure complications. Pathology indicates benign fibroadenoma (FA). Pathology results are concordant with biopsy findings. UNILATERAL LEFT DIGITAL DIAGNOSTIC MAMMOGRAM WITH CAD: 11/01/2021 RESULT: TECHNIQUE: The study was acquired using full field digital technology and interpreted from soft copy. Current study was also evaluated with a Computer Aided Detection (CAD). Comparison is made to exams dated: 10/25/2021 ultrasound, 10/25/2021 mammogram - [facility], 10/20/2021 breast MRI - [facility], 10/07/2021 ultrasound biopsy, 10/04/2021 mammogram, and 10/04/2021 ultrasound. The tissue of left breast is heterogeneously dense. This may lower the sensitivity of mammography. There is a marker clip in the appropriate position in the left breast upper inner aspect. This is seen in additional views. This marker clip placement is at the biopsy site. IMPRESSION: POST PROCEDURE MAMMOGRAM FOR MARKER PLACEMENT There was a successful marker clip placement in the left breast upper inner aspect. SUMMARY: FINAL DIAGNOSIS A. Breast, left, upper outer aspect, calcifications, Twirl clip, stereotactic core biopsy: --Atypical ductal hyperplasia (ADH). --Microcalcifications are present in ducts adjacent to ADH. --Please see comment. ? B. Breast, left, at 10:00, 3 cm from the nipple, Q clip, ultrasound-guided core biopsy: --Fibroadenoma. Electronically signed by Amish Campos MD. Amelia Valdovinos M.D. fa/penrad:11/03/2021 13:07:38 Oxide Furnace Tender(s): RT Elis(R)(M), [facility] Mammogram BI-RADS: Post-procedure mammogram for marker placement Multiple national specialty organizations have released breast cancer screening guidelines for women at average risk for developing breast cancer - guidelines that are based on both evidence and opinion, yet differ on when to start and how often to screen for breast cancer. With representation from Breast Imaging, Internal Medicine, Women's Health, Family Medicine, and Medical/Surgical Oncology, the [facility] has caref (more content not included)... Normal [facility] MRI CLIP PLACEMENT BREAST LT on 11-01-2021 MRI CLIP PLACEMENT BREAST LT * * *Final Report* * * * * * SEE BOTTOM OF REPORT FOR ADDENDED TEXT * * * DATE OF EXAM: Nov 01 2021 11:39AM [facility] 3013 - MRI CLIP PLACEMENT BREAST LT / PROCEDURE REASON: Breast disorder * * * * Physician Interpretation * * * * RESULT: FINAL REPORT #[id number] - JOSE A STEREO BX BREAST LT #[id number] - MRI CLIP PLACEMENT BREAST LT STEREOTACTIC GUIDED BIOPSY LEFT BREAST USING VACUUM DEVICE WITH MARKING DEVICE INSERTED AND POST DIGITAL MAMMOGRAPHIC IMAGIN11/01/2021 HISTORY: Breast Disorder/ Patient presents for a stereotactic guided biopsy of the left breast. Breast Disorder. PATIENT CONSENT: A time out was performed immediately prior to procedure start with the radiology team, correctly identifying the patient name, date of , procedure, anatomy (including marking of site and side), patient position, relevant diagnostic and radiology test results, safety precautions, and procedure-specific equipment needs. The procedure was explained to the patient including the risks, benefits and alternatives. Medications and allergies were also reviewed. The risks, including but not limited to infection and bleeding, were reviewed by the performing physician and the patient agreed to undergo the procedure. The radiologist and technologist were present throughout the entire procedure. Dr. Valdovinos performed the entire procedure without an journeyman operator assistant. Time out: 9:48 Procedure start: 9:58 Procedure end: 10:03. Correlation is made to exams dated: 10/25/2021 mammogram, 10/25/2021 ultrasound - [facility], and 10/20/2021 breast MRI - [facility]. A stereotactic guided biopsy was performed for the concerning area of grouped calcifications located in the left breast upper outer aspect. This was described on the previous mammography report. The skin was prepped in the usual manner. Local anesthetic was administered to the access site. A skin cassandra was made in the breast. The abnormality was approached from the lateral aspect using a prone table. A 10 gauge biopsy needle was placed adjacent to the abnormality under computer guidance and confirmatory stereotactic mammography images were obtained to document needle placement. Once the needle was documented to be in the correct location, three specimens were obtained using the [employer] system. The patient received additional local anesthetic during the procedure. A Twirl type clip was inserted into the biopsy cavity. A skin closure strip and a sterile dressing were applied to the access site. Post procedure digital mammographic imaging demonstrates the location device at the targeted area. The specimens were sent to the laboratory for pathological analysis. IMPRESSION: STEREOTACTIC GUIDED BIOPSY HIGH RISK BENIGN Stereotactic guided biopsy of the area of grouped calcifications in the left breast upper outer aspect was successful with no apparent post procedure complications. Pathology indicates high risk benign atypical ductal hyperplasia (ADH). Pathology results are concordant with biopsy findings. A surgical consultation is recommended. SUMMARY: FINAL DIAGNOSIS A. Breast, left, upper outer aspect, calcifications, Twirl clip, stereotactic core biopsy: ? --Atypical ductal hyperplasia (ADH). ? --Microcalcifications are present in ducts adjacent to ADH. ? --Please see comment. ? B. Breast, left, at 10:00, 3 cm from the nipple, Q clip, ultrasound-guided core biopsy: ? --Fibroadenoma. Electronically signed by Amish Campos MD The patient will be notified of the concordant pathology results by the Breast imaging navigator. Surgical consultation is recommended. Patient is under care of Dr. Null. Amelia covarrubias/aydee:11/03/2021 13:08:53 Oxide Furnace Tender(s): Ana Rosa Law RT(R)(M), [facility] ; RT Nathan(R), [facility] Multiple national specialty organizations have released breast cancer screening guidelines for women at average risk for developing breast cancer - guidelines that are based on both evidence and opinion, yet differ on when to start and how often to screen for breast cancer. With representation from Breast Imaging, Internal Medicine, Women's Health, Family Medicine, and Medical/Surgical Oncology, the [facility] has carefully reviewed the data and reached the following consensus: 1) All women should engage in shared decision-making with their providers to decide when to start and how often to screen; 2) All women should have the opportunity to start screening mammography at age 40; 3) For women ages 45-55, we recommend annual screening mammograms; 4) For women ages 55 and over, we support both the transition from an annual to a biennial interval if this aligns more with patient's values and preferences, or continuation with annual screening; 5) All women should discuss with their providers when to stop screening mammograms. Tr (more content not included)... [facility] No Panel Informationon 11-01 [facility] Reagin and Treponema pallidu m IgG and IgM [Interp]on 11-01-2021 Syphilis Interpretation Cannot exclude recent Treponemal infection if specimen collected within 7-10 days after appearance of suspect lesions or 2-3 weeks after an exposure. Clinical correlation is required. [facility] SURGICAL PATHOLOGYon 022 CASE REPORT [facility] Comment on above: Order Comment: Iain may Type: TISSUE SPECIMEN Ordering Facility: Address: [address] [place] [address] Result Comment: Surg ical Pathology Report Case: [id number] Authorizing Provider: Amelia Valdovinos MD Collected: 11/01/2021 10:00 AM Ordering Location: [facility] Received: 11/01/2021 10:52 AM Pathologist: Amish Campos MD Specimens: A) - BREAST CORE BIOPSY LEFT, calcifications twirl clip B) - BREAST CORE BIOPSY LEFT, 10:00 3CMFN Q CLIP Performed By: #### S #### [facility] CLIA [id number] [address] [place] [address] FINAL DIAGNOSIS [facility] Comment on above: Order Comment: Iain may Type: TISSUE SPECIMEN Ordering Facility: Address: [address] [place], [place] [id number] Result Comment: A. B reast, left, upper outer aspect, calcifications, Twirl clip, stereotactic core biopsy: --Atypical ductal hyperplasia (ADH). --Microcalcifications are present in ducts adjacent to ADH. --Please see comment. B. Breast, left, at 10:00, 3 cm from the nipple, Q clip, ultrasound-guided core biopsy: --Fibroadenoma. Performed By: #### S #### [facility] CLIA [id number] [address] [place] [address] STATES OF NESS FINAL PERFORMING LAB Normal [facility] Comment on above: Order Comment: Speci men Type: TISSUE SPECIMEN Ordering Facility: Address: [address] [place] [address] Result Comment: Diag nostic interpretation performed at [facility], [address] [place] [address] CLIA# [id number] Calcine Furnace Loader: Mckay Roy M.D. Performed By: #### S #### [facility] CLIA [id number] [address] [place] [address] STATES [facility] GROSS DESCRIPTION [facility] Comment on above: Order Comment: Speci men Type: TISSUE SPECIMEN Ordering Facility: Address: [address] [place] [address] Result Comment: A. B REAST CORE BIOPSY LEFT. Received in formalin labeled as ``left breast? are multiple segments of cylindrical tissue aggregating to 2.5 x 1.2 x 0.3 cm, yellow-red and of a soft consistency. The specimen was removed from the patient at 10:00 AM on 11/01/2021. On the same day, the specimen was placed in formalin at 10:10 AM. Totally submitted in formalin in one cassette. B. BREAST CORE BIOPSY LEFT. Received in formalin labeled as ``left breast? are multiple segments of cylindrical tissue aggregating to 2.0 x 0.6 x 0.2 cm, walker-yellow and of a soft consistency. The specimen was removed from the patient at 10:22 AM on 11/01/2021. On the same day, the specimen was placed in formalin at the same time. Totally submitted in formalin in one cassette. HMM November 01, 2021 5:28 PM Gross examination performed at [facility], [address] [place] [address] Performed By: #### S #### [facility] CLIA [id number] [address] [place] [address] STATES [place] N[place] MICROSCOPIC DESCRIPTION It is possible that the calcifications observed in part A arose in the focus of ADH but were displaced into an adjacent duct system. Normal [facility] Comment on above: Order Comment: Speci men Type: TISSUE SPECIMEN Ordering Facility: Address: [address] [place], [place] [id number] Performed By: #### S #### [facility] CLIA [id number] [address] [place] [address] US BIOPSY BREAST LTon 2021 [facility] Laboratory - Chemistry and C hemistry - challengeon 10-31-2021 HCG ( test) Ql (U) Negative [facility] Work Phone: Comment on above: Very dilute urine sp ecimens, as indicated by a low specificgravity, may not contain guest experience representative levels of hCG. If is still suspected, a first morning urinespecimen should be collected 48 hours later and tested. JOSE A DIAG W GRETCHEN LTon 022 [facility] US BREAST LTD LTon 2 [facility] MRI BREAST WO/W IVCON BILATo n 10-20-2021 [facility] Absolute lymphocyte counton 10-17-2021 Lymphocytes Auto (Unsp spec) [#/Vol] 1.88 10*3/uL 0.83-4.51 [facility] Work Phone: Basophil percentageon 2021 Basophils/100 WBC (Bld) 0.9 % 0-1 [facility] Work Phone: Bilirubin [Mass/Vol] 0.40 mg/dL 0.20-1.00 [facility] Work Phone: Comment on above: For patients on eltr ombopag therapy, use of Dimension [employer] TBIL is not recommended. Chloride [Moles/Vol] 107 mmol/L 98-107 [facility] Work Phone: Eosinophils/100 WBC (Bld) 1.6 % 0-5 [facility] Work Phone: Glucose [Mass/Vol] 107 mg/dL 74-106 [facility] Work Phone: Comment on above: Fasting Glucose resu lt from 100 to 125 mg/dL suggests IMPAIRED HOMEOSTASIS per A.D.A. criteria. Neutrophils (Bld) [#/Vol] 4.2 10*3/uL 2.0-7.7 [facility] Work Phone: Neutrophils/100 WBC (Bld) 61.9 % 47-70 [facility] Work Phone: Potassium [Moles/Vol] 3.4 mmol/L 3.5-5.1 [facility] Work Phone: Protein [Mass/Vol] 7.9 g/dL 6.4-8.2 [facility] Work Phone: Sodium [Moles/Vol] 139 mmol/L 136-145 [facility] Work Phone: WBC (Bld) [#/Vol] 6.8 10*3/uL 4.4-11.0 [facility] Work Phone: Blood erythrocytes count (nu mber/volume)on 10-17-2021 RBC (Bld) [#/Vol] 4.66 10*6/uL 4.2-5.4 [facility] Work Phone: Blood hemoglobin measurement (mass/volume)on 10-17-2021 Hemoglobin (Bld) [Mass/Vol] 12.9 g/dL 12.0-15.0 [facility] Work Phone: Blood lymphocytes/100 leukoc yteson 10-17-2021 Lymphocytes/100 WBC (Bld) 27.6 % 19-41 [facility] Work Phone: Blood monocytes/100 leukocyt eson 10-17-2021 Monocytes/100 WBC (Bld) 7.9 % 0-10 [facility] Work Phone: Blood platelet mean volumeon 10-17-2021 Platelet mean volume (Bld) [Entitic vol] 11.5 fL 6.2-12.0 [facility] Work Phone: Determination of erythrocyte mean corpuscular volume (MCV)on 10-17-2021 MCV (RBC) [Entitic vol] 83.5 fL 81-99 [facility] Work Phone: Hematocrit Auto (Bld) [Volum e fraction]on 10-17-2021 Hematocrit (Bld) [Volume fraction] 38.9 % 37-47 [facility] Work Phone: Laboratory - Chemistry and C hemistry - challengeon 10-17-2021 ALP [Catalytic activity/Vol] 113 U/L 45-117 [facility] Work Phone: ALT [Catalytic activity/Vol] 14 U/L 13-56 [facility] Work Phone: CO2 [Moles/Vol] 27.0 mmol/L 21.0-32.0 [facility] Work Phone: Globulin (S) [Mass/Vol] 3.6 g/dL 2.2-4.2 [facility] Work Phone: Urea nitrogen/Creatinine [Mass ratio] 15.3 mg/mg 10-20 [facility] Work Phone: Laboratory - Hematology and Cell countson 10-17-2021 Erythrocyte distribution width (RBC) [Entitic vol] 43.8 fL 35.1-43.9 [facility] Work Phone: Erythrocyte distribution width (RBC) [Ratio] 14.4 % 11.6-14.6 [facility] Work Phone: Immature granulocytes/100 WBC (Bld) 0.100 % 0.0-0.9 [facility] Work Phone: Comment on above: IG% - Immature Granu locytes (promyelocytes, myelocytes and metamyelocytes) > 1% indicates that a LEFT SHIFT is Present. MCH (RBC) [Entitic mass] 27.7 pg 27.0-32.0 [facility] Work Phone: Nucleated RBC/100 WBC (Bld) [Ratio] 0 % 0-5 [facility] Work Phone: MCHC Auto (RBC) [Mass/Vol]on 10-17-2021 MCHC (RBC) [Mass/Vol] 33.2 g/dL 32-36 [facility] Work Phone: No Panel Informationon 10-17 Estimated GFR (MDRD) Amer 122 mL/min >60 [facility] Work Phone: Comment on above: GFR Calc Estimated GFR (MDRD) Non-Af Amer 101 mL/min >60 [facility] Work Phone: Comment on above: Non- GFR Calc Platelets bldon 10-17-2021 Platelets (Bld) [#/Vol] 211 10*3/uL 150-450 [facility] Work Phone: Serum or plasma albumin jose l urement (mass/volume)on 10-17-2021 Albumin [Mass/Vol] 4.3 g/dL 3.2-5.0 [facility] Work Phone: Serum or plasma albumin/glob ulin mass ratioon 10-17-2021 Albumin/Globulin [Mass ratio] 1.2 {ratio} 0.9-2.4 [facility] Work Phone: Serum or plasma calcium jose l urement (mass/volume)on 10-17-2021 Calcium [Mass/Vol] 8.9 mg/dL 8.5-10.1 [facility] Work Phone: Serum or plasma creatinine m easurement (mass/volume)on 10-17-2021 Creatinine [Mass/Vol] 0.72 mg/dL 0.55-1.02 [facility] Work Phone: Comment on above: The validity of the calculated GFR & GFRAA in patients over 70 years has not been determined. Clinical correlation is essential. Serum or plasma urea nitroge n measurement (mass/volume)on 10-17-2021 Urea nitrogen [Mass/Vol] 11 mg/dL 7-18 [facility] Work Phone: Thin prep Papanicolaou smear with manual screeningon 04-11-2022 Thin prep Papanicolaou smear with manual screening 14 U/L 15-37 [facility] Work Phone: Thin prep Papanicolaou smear with manual screening 5 5-15 [facility] Work Phone: Thin prep Papanicolaou smear with manual screening 158 U/L 84-246 [facility] Work Phone: Initial Visit (Gastroenterol ogy)on 03-17-2021 Initial Visit (Gastroenterology) Diagnoses/Problems Assessed Crohn's disease of ileum with complication (555.0) (K50.019) Orders Crohn's disease of ileum with complication C Reactive Protein, Serum; Status:Active; Requested for:17Mar2021; Perform:Lab Services - Lab To Draw (Blood Test); Due:15Jun2021;Ordered; For:Crohn's disease of ileum with complication; Ordered By:Luz Garza; Crohn's Progostic; Status:Active; Requested for:17Mar2021; Perform:Lab Services - Lab To Draw (Blood Test); Due:[id number];Ordered; For:Crohn's disease of ileum with complication; Ordered By:Luz Garza; Ferritin, Serum; Status:Active; Requested for:17Mar2021; Perform:Lab Services - Lab To Draw (Blood Test); Due:15Jun2021;Ordered; For:Crohn's disease of ileum with complication; Ordered By:Luz Garza; Iron + TIBC, Serum; Status:Active; Requested for:17Mar2021; Perform:Lab Services - Lab To Draw (Blood Test); Due:[id number];Ordered; For:Crohn's disease of ileum with complication; Ordered By:Luz Garza; Vitamin B12, Serum; Status:Active; Requested for:17Mar2021; Perform:Lab Services - Lab To Draw (Blood Test); Due:[id number];Ordered; For:Crohn's disease of ileum with complication; Ordered By:Luz Garza; Vitamin-D 1,25-Dihydroxy, Level; Status:Active; Requested for:17Mar2021; Perform:Lab Services - Lab To Draw (Blood Test); Due:[id number];Ordered; For:Crohn's disease of ileum with complication; Ordered By:Luz Garza; Provider Impressions Had a long conversation with both she and her who was in attendance and informed them that if her disease is not well managed her immune system is actually not as adequate as it could be. We discussed options including Humira other TNF inhibitors directed TNF antibodies as well as interleukin-12 22 inhibitors. Long-term risk of immune suppression including induction of lymphoma was discussed with patient as well as risk for infection. Patient is not at a point where she wishes to begin any new therapy wishes to wean off budesonide and see how symptoms go. I have arranged for her to have Crohn's prognostic labs as well as vitamin D, vitamin B12 and ferritin levels as well as repeating her sed rate and C-reactive protein. She will follow-up by telephone. I advised her that if I were her I would consider Stelara as there is less shot burden and appears to have a lesser risk of induction of lymphoma or Entyvio. Chief Complaint NPV in office today for Crohns disease, no complaints currently. Has previously seen Dr. Early in [place] and a mari in [place]. Patient's last colonoscopy was on 11/25/2020 History of Present IllnessStephen is a pleasant 31-year-old female who presents for evaluation and recommendations for chronic Crohn's disease. Diagnosed in 2013. Hospitalized at that time with small bowel obstruction found to have terminal ileitis, follow-up colonoscopy showed ulcerations and nodularity throughout the distal ileum biopsies showed acute inflammatory change without granulomas. She was placed on budesonide and improved. She was recommended go on Humira which she declined. Patient relocated to the [facility] where her is been serving in the [employer] has been treated there for the last 4 years. Patient is currently taking budesonide intermittently. Currently on budesonide and in the next week. Patient states her disease is well controlled although she has noticed that certain foods especially high residue foods make her worse. She has predictable pain in her right lower quadrant but is having no active diarrhea at this time. Most recent labs done in December of this year showed hemoglobin 11.5 with normal albumin and normal liver enzymes. She had a hepatitis B surface antibody surface antigen both which were negative and nonreactive and hepatitis B core antibody which was negative. HIV was negative sed rate at that time was 8 and CRP was 2 all the wrists fecal calprotectin was elevated 4 and 16. QuantiFERON gold was negative and a C. difficile was not performed as she was having solid stool. Patient has biopsy-proven Crohn's disease which is controlled but not well managed with oral budesonide. Patient is contemplating but has active symptoms. Was advised to not become until disease is better managed. She has been Ko[place] and dressed about biologic therapy but is declined because of fear of immune suppression. Had a long conversation with both she and her who was in attendance and informed them that if her disease is not well managed her immune system is actually not as adequate as it could be. We discussed options including Humira other TNF inhibitors directed TNF antibodies as well as interleukin-12 22 inhibitors. Long-term risk of immune suppression including induction of lymphoma was discussed with patient as well as risk for infection. Patient is not at a point where she wishes to begin any new therapy wishes to wean off budesonide and see how symptoms go. I have arranged for her to have Crohn's prognostic labs as well as vitamin (more content not included)... Normal [facility] Final Surgical Pathology Rep [facility] 10-30-2017 Final Surgical Pathology Report . Pathology ReportsAccession: Collected Date/Time: Received Date/Time: Pathologist:[id number] 22 10/26/2017 14:14 EDT 10/29/2017 14:14 EDT MD EDITH CABEZAS Final Surgical Pathology ReportDIAGNOSIS:TERMINA L ILEUM, BIOPSY: - FRAGMENTS OF SMALL INTESTINAL MUCOSA WITH LYMPHOID AGGREGATES, MILD NONSPECIFIC ACTIVE CHRONIC INFLAMMATION WITH REACTIVE CHANGES. - NEGATIVE FOR GRANULOMAS OR DYSPLASIA.CLINICAL INFORMATION:CROHN'SSPEC IMEN:A COLON, BX - TERMINAL ILEUMGROSS DESCRIPTION:Received in formalin and consists of two pale fragments of mucosa ranging in size from 0.2 to 0.4 cm. TE-1dictated by Miladys Cabezas M.D.Dictated by EDITH CABEZAS MDMICROSCOPIC DESCRIPTION:Slides reviewed.Electronically Signed byPathology Report verified by [facility]Electronically signed by EDITH CABEZAS MDSign out Date: 10/30/2017 14:38Performing Lab: [facility], [address] [place] [id number] [place] [address] ([place]) Comment on above: Performed By: #### S PFR ####Taurus Rlhehdnz[address] [place] [address] FLURESCNT ANTIB SCRN EA ([id number]) celiac profileOrdered By: Bed Rubber on 01-02-2014 Endomysium IgA Ql (S) Negative Normal [facility] Work Phone: Comment on above: PATIENT NOT FASTINGP ERFORMED BY: CRISTINA [facility] Vivsnn7124 [facility] [id number] Information: [id number] Endomysium IgA Ql (S) Negative Normal [facility]; [facility] Work Phone: Comment on above: PATIENT NOT FASTINGP ERFORMED BY: CRISTINA [facility] Fjxsqw4529 [facility] [id number] Information: [id number] Gliadin peptide IgA Qn (S) 12 {units} Normal 0-19 [facility] Work Phone: Comment on above: Negative 0 - 19 Weak Positive 20 - 30 Moderate to Strong Positive >30 PATIENT NOT FASTINGP ERFORMED BY: [facility] Qafseu2714 [facility] [id number] Information: 216774,[id number] Gliadin peptide IgG Qn (S) 3 {units} Normal 0-19 [facility] Work Phone: Comment on above: Negative 0 - 19 Weak Positive 20 - 30 Moderate to Strong Positive >30 PATIENT NOT FASTINGP ERFORMED BY: CRISTINA [facility] Pkrtvi7292 [facility] [id number] Information: [id number] IgA mass conc 198 mg/dL Normal 91-414 Comprehen[facility] ve [facility] Work Phone: Comment on above: PATIENT NOT FASTINGP ERFORMED BY: CB [facility] Sarmlg2801 [facility] [id number] Information: [id number] Tissue transglutaminase IgA Qn (S) <2 Normal 0-3 [facility] Work Phone: Comment on above: Negative 0 - 3 Weak Positive 4 - 10 Positive >10 . Tissue Transglutaminase (tTG) has been identified as the endomysial antigen. Studies have demonstr- ated that endomysial IgA antibodies have over 99% specificity for gluten sensitive enteropathy. PATIENT NOT FASTINGP ERFORMED BY: CRISTINA [facility] Yvyyeo7248 [facility] [id number] Information: 315322,[id number] Tissue transglutaminase IgG Qn (S) 2 U/mL Normal 0-5 [facility] Work Phone: Comment on above: Negative 0 - 5 Weak Positive 6 - 9 Positive >9 PATIENT NOT FASTINGP ERFORMED BY: [address] [id number] Information: [id number] IGA/IGD/IGG/IGM-EACH (90899) Ordered By: Bed Rubber on 01-02-2014 IgE Qn 182 {IU/mL} Abnormal 0-100 [facility] Work Phone: Comment on above: PATIENT NOT FASTINGP ERFORMED BY: [place] [id number] [facility] [id number] IgG mass conc 1012 mg/dL Normal 700-1600 [facility]pre[facility] Work Phone: Comment on above: PATIENT NOT FASTINGP ERFORMED BY: [place] 0173770 [facility] [id number] IgM mass conc 127 mg/dL Normal 40-230 [facility] Work Phone: Comment on above: PATIENT NOT FASTINGP ERFORMED BY: [place] [id number] [facility] [id number] IMMUNOASSAY, ANALYTE (NON-IN FECT) (00948) celiac profileOrdered By: Bed Rubber on 01-02-2014 Neutrophil cytoplasmic Ab.classic IF titer (S) <1:20 Normal [facility] Work Phone: Comment on above: PATIENT NOT FASTINGP ERFORMED BY: [place] [id number] [facility] [id number] Neutrophil cytoplasmic Ab.perinuclear IF titer (S) <1:20 Normal [facility] Work Phone: Comment on above: The presence of posi tive fluorescence exhibiting P-ANCA or C-ANCApatterns alone is not specific for the diagnosis of Nena'sGranulomatosis (WG) or microscopic polyangiitis. Decisions abouttreatment should not be based solely on ANCA IFA results. TheInternational ANCA Group Consensus recommends follow up testing ofpositive sera with both VA-3 and MPO-ANCA enzyme immunoassays. Asmany as 5% serum samples are positive only by EIA.Ref. AM J Clin Pathol 1999;111:507-513. PATIENT NOT FASTINGP ERFORMED BY: [place] [id number] Neutrophil cytoplasmic Ab.perinuclear.atyp ical IF titer (S) <1:20 Normal [facility] Work Phone: Comment on above: The atypical pANCA p attern has been observed in a significantpercentage of patients with ulcerative colitis, primary sclerosingcholangitis and autoimmune hepatitis. PATIENT NOT FASTINGP ERFORMED BY: Medprex6370 [place] [id number] URINE CHATO CULTURE-IDENTIFICA [place] (92747)Ordered By: Bed Rubber on 10-03-2013 Bacteria identified Cx Nom (U) NG36 Normal [facility] Work Phone: Comment on above: No growth in 36 - 48 hours. PATIENT NOT FASTINGP ERFORMED BY: Med[facility]6[address] [place] [id number] Information: [id number] Bacteria identified Cx Nom (U) Final report Normal [facility] Work Phone: Comment on above: PATIENT NOT FASTINGP ERFORMED BY: Med[facility]x6[address] [place] [id number] Information: [id number] Urinalysis, Office (22098)Or dered By: Mikaela Mac on 10-03-2013 Bilirubin Ql (U) Negative Normal Comprehe nsive [facility] Medicine Work Phone: Bilirubin Ql (U) Negative Normal Comprehe nsive [facility]; [facility] Work Phone: Glucose Test strip (U) [Mass/Vol] Negative Normal [facility]; [facility] Work Phone: Glucose Test strip mass conc (U) Negative Normal [facility] Work Phone: Hemoglobin Ql (U) Negative Normal Compreh ensive [facility] Work Phone: Hemoglobin Ql (U) Negative Normal Compreh ens[facility]; [facility] Work Phone: Ketones Ql (U) Negative Normal [facility]prehens [facility] Work Phone: Ketones Ql (U) Negative Normal [facility]; [facility] Work Phone: Leukocyte esterase Test strip Ql (U) Negative Normal [facility] Work Phone: Leukocyte esterase Test strip Ql (U) Negative Normal [facility]; [facility] Work Phone: Nitrite Ql (U) Negative Normal [facility] Work Phone: Nitrite Ql (U) Negative Normal [facility]; [facility] Work Phone: pH (U) 6 [pH] Abnormal [facility] Work Phone: Protein Ql (U) Negative Normal [facility] Work Phone: Protein Ql (U) Negative Normal [facility]; [facility] Work Phone: Specific gravity Relative Density (U) 1.030 1 Abnormal [facility] Work Phone: Urobilinogen mass/time (24H U) Normal Normal [facility] Work Phone: HEPATITIS B SURFACE ANTIBODY (90282)Ordered By: Bed Rubber on 02-07-2013 HBV surface Ab Radioimmunoassay (MAIN) Qn (S) 0.38 {Index_Value} Normal [facility] Work Phone: Comment on above: Status of Immunity A nti-HBs Level Inconsistent with Immunity 0.00 - 0.99 Consistent with Immunity >0.99 . An Index Value of 1.00 is equivalent to 10 mIU/mL. However the magnitude of the Index Value is not indicative of the total amount of antibody present.Effective February 24, 2013 test 224067 Hepatitis B Surface Antibody will change from an index value to Non Reactive and Reactive. To determine immune status as >/= to 10 mIU/mL as per CDC guidelines, please order test 931237 Hepatitis B Surface Antibody Quantitative. PATIENT NOT FASTINGP ERFORMED BY: [facility] [id number] BY: Banjo[address] [id number] MUMPS ANTIBODY (70228)Ordere d By: Bed Rubber on 02-07-2013 MUMPS ANTIBODY (84433) 1.65 {index} Abnormal 0.00-0.90 [facility] Work Phone: Comment on above: Negative <0.91 Equiv ocal 0.91 - 1.09 Positive >1.09 Presence of antibodies to Mumps is presumptive evidence of immunity except when active infection is suspected. PATIENT NOT FASTINGP ERFORMED BY: Chatous70 [facility] [id number] BY: Banjo[address] [id number] RUBELLA ANTIBODY (56337)Orde red By: Bed Rubber on 02-07-2013 Rubella virus IgG Qn (S) 21 {IU/mL} Normal [facility] Work Phone: Comment on above: Non-immune <5 Equivo aquilino 5 - 9 Immune >9 PATIENT NOT FASTINGP ERFORMED BY: Chatous70 [facility] [id number] BY: SweetPerk[address] [id number] Information: 111754,T94453 Rubella virus IgG Qn (S) 21 [IU]/mL Normal [facility]; [facility] Work Phone: Comment on above: Non-immune <5 Equivo aquilino 5 - 9 Immune >9 PATIENT NOT FASTINGP ERFORMED BY: [employer] Cpcyzs4270 [facility] [id number] BY: SweetPerk[address] [id number] Information: [id number],H63353 RUBEOLA ANTIBODY (81324)Orde red By: Bed Rubber on 02-07-2013 MeV IgM Qn (S) <0.80 Normal 0.00-0.79 [facility] Work Phone: Comment on above: Negative < 0.80 Bord stephanie 0.80 - 1.20 Positive > 1.20 . Note: The presence of IgM specific antibody should be interpreted in conjunction with the patient's clinical history and exposure risk when an acute infection is suspected. PATIENT NOT FASTINGP ERFORMED BY: Chatous70 [facility] [id number] BY: SweetPerk[address] [id number] VARICELLA-ZOSTER ANTBODY (86 787)Ordered By: Bed Rubber on 02-07-2013 VARICELLA-ZOSTER ANTBODY (29270) 1.98 {index} Normal [facility] Work Phone: Comment on above: Nonimmune <0.91 Equi vocal 0.91 - 1.09 Immune >1.09 PATIENT NOT FASTINGP ERFORMED BY: Chatous70 [facility] [id number] BY: Sweet[address] [id number] CBC, Platelets & Auto Diff ( 94873)Ordered By: Bed Rubber on 01-28-2013 Basophils #/vol (Bld) 0.0 {x10E3/uL} Normal 0.0-0.2 [facility] Work Phone: Comment on above: PATIENT NOT FASTINGP ERFORMED BY: [employer] Wmxuvp2490 [facility] [id number] Information: [id number],[id number] Basophils (Bld) [#/Vol] 0.0 10*3/uL Normal 0.0-0.2 [facility]; [facility] Work Phone: Comment on above: PATIENT NOT FASTINGP ERFORMED BY: CRISTINA Lai [facility] [id number] Information: [id number] Basophils/100 WBC (Bld) 1 % Normal 0-3 [facility] Work Phone: Comment on above: PATIENT NOT FASTINGP ERFORMED BY: CRISTINA Velasquez Xdvvai7266 [facility] [id number] Information: [id number],Y49029 Eosinophils #/vol (Bld) 0.1 {x10E3/uL} Normal 0.0-0.4 [facility] Work Phone: Comment on above: PATIENT NOT FASTINGP ERFORMED BY: CRISTINA Gtz[address] [id number] Information: 298484,G99237 Eosinophils (Bld) [#/Vol] 0.1 10*3/uL Normal 0.0-0.4 [facility]; [facility] Work Phone: Comment on above: PATIENT NOT FASTINGP ERFORMED BY: CRISTINA Wanglin6370 [facility] [id number] Information: 145897,N42253 Eosinophils/100 WBC (Bld) 2 % Normal 0-7 [facility] Work Phone: Comment on above: PATIENT NOT FASTINGP ERFORMED BY: CRISTINA Gtz[address] [id number] Information: 121025,K60722 Erythrocyte distribution width Ratio (RBC) 14.1 % Normal 12.3-15.4 [facility] Work Phone: Comment on above: PATIENT NOT FASTINGP ERFORMED BY: CRISTINA LabT[place] 0173770 [facility] [id number] Information: 504919,O97810 Hematocrit Volume Fraction (Bld) 39.4 % Normal 34.0-46.6 [facility] Work Phone: Comment on above: PATIENT NOT FASTINGP ERFORMED BY: CRISTINA Gallardo6370 [facility] [id number] Information: 194774,V00924 Hemoglobin mass conc (Bld) 13.1 g/dL Normal 11.1-15.9 [facility] Work Phone: Comment on above: PATIENT NOT FASTINGP ERFORMED BY: CRISTINA Gtz[address] [id number] Information: 635876,T08983 Immature granulocytes #/vol (Bld) 0.0 {x10E3/uL} Normal 0.0-0.1 [facility] Work Phone: Comment on above: PATIENT NOT FASTINGP ERFORMED BY: [address] [id number] Information: 801266,[id number] Immature granulocytes (Bld) [#/Vol] 0.0 10*3/uL Normal 0.0-0.1 [facility]; [facility] Work Phone: Comment on above: PATIENT NOT FASTINGP ERFORMED BY: CRISTINA Velasquez Pdywug[address] [id number] Information: 251240,G77000 Immature granulocytes/100 WBC (Bld) 0 % Normal 0-2 [facility] Work Phone: Comment on above: PATIENT NOT FASTINGP ERFORMED BY: [address] [id number] Information: 611709,R79182 Lymphocytes #/vol (Bld) 1.7 {x10E3/uL} Normal 0.7-4.5 [facility] Work Phone: Comment on above: PATIENT NOT FASTINGP ERFORMED BY: [address] [id number] Information: 086486,K72019 Lymphocytes (Bld) [#/Vol] 1.7 10*3/uL Normal 0.7-4.5 [facility]; [facility] Work Phone: Comment on above: PATIENT NOT FASTINGP ERFORMED BY: CRISTINA Gallardo6370 [facility] [id number] Information: 176293,M76776 Lymphocytes/100 WBC (Bld) 29 % Normal 14-46 [facility] Work Phone: Comment on above: PATIENT NOT FASTINGP ERFORMED BY: CRISTINA [address] [id number] Information: 796408,H17008 MCH Entitic mass (RBC) 28.8 pg Normal 26.6-33.0 [facility] Work Phone: Comment on above: PATIENT NOT FASTINGP ERFORMED BY: [address] [id number] Information: 716911,[id number] MCHC mass conc (RBC) 33.2 g/dL Normal 31.5-35.7 [facility] Work Phone: Comment on above: PATIENT NOT FASTINGP ERFORMED BY: CRISTINA Gtz[address] [id number] Information: 136060,[id number] MCV Entitic volume (RBC) 87 fL Normal 79-97 [facility] Work Phone: Comment on above: PATIENT NOT FASTINGP ERFORMED BY: [address] [id number] Information: 442141,S62172 Monocytes #/vol (Bld) 0.7 {x10E3/uL} Normal 0.1-1.0 [facility] Work Phone: Comment on above: PATIENT NOT FASTINGP ERFORMED BY: CRISTINA [place] 8962770 [facility] [id number] Information: 309573,P64500 Monocytes (Bld) [#/Vol] 0.7 10*3/uL Normal 0.1-1.0 [facility]; [facility] Work Phone: Comment on above: PATIENT NOT FASTINGP ERFORMED BY: CRISTINA [facility] [id number] Information: 809361,G73134 Monocytes/100 WBC (Bld) 12 % Normal 4-13 [facility] Work Phone: Comment on above: PATIENT NOT FASTINGP ERFORMED BY: CRISTINA AbdiSaint [facility] [id number] Information: 543021,[id number] Neutrophils #/vol (Bld) 3.3 {x10E3/uL} Normal 1.8-7.8 [facility] Work Phone: Comment on above: PATIENT NOT FASTINGP ERFORMED BY: CRISTINA Lai [facility] [id number] Information: 391471,X70565 Neutrophils (Bld) [#/Vol] 3.3 10*3/uL Normal 1.8-7.8 [facility]; [facility] Work Phone: Comment on above: PATIENT NOT FASTINGP ERFORMED BY: CRISTINA [facility] [id number] Information: 202234,L07669 Neutrophils/100 WBC (Bld) 56 % Normal 40-74 [facility] Work Phone: Comment on above: PATIENT NOT FASTINGP ERFORMED BY: CRISTINA Lai [facility] [id number] Information: 505880,W81870 Platelets #/vol (Bld) 207 {x10E3/uL} Normal 140-415 [facility] Work Phone: Comment on above: PATIENT NOT FASTINGP ERFORMED BY: CRISTINA Gallardo6370 [facility] [id number] Information: 270823,R44205 Platelets (Bld) [#/Vol] 207 10*3/uL Normal 140-415 [facility]; [facility] Work Phone: Comment on above: PATIENT NOT FASTINGP ERFORMED BY: CRISTINA Velasquez Jextmu5427 [facility] [id number] Information: 127796,Q13110 RBC #/vol (Bld) 4.55 {x10E6/uL} Normal 3.77-5.28 [facility] Work Phone: Comment on above: PATIENT NOT FASTINGP ERFORMED BY: CRISTINA [facility] Vbjepc0435 [facility] [id number] Information: [id number],H87255 RBC (Bld) [#/Vol] 4.55 10*6/uL Normal 3.77-5.28 [facility]; [facility] Work Phone: Comment on above: PATIENT NOT FASTINGP ERFORMED BY: CRISTINA [facility]es[facility] Tlbeof5712 [facility] [id number] Information: 132700,Z55457 WBC #/vol (Bld) 5.9 {x10E3/uL} Normal 4.0-10.5 [facility] Work Phone: Comment on above: PATIENT NOT FASTINGP ERFORMED BY: CRISTINA Ron Fqyrgc1486 [facility] [id number] Information: 696908,C08619 WBC (Bld) [#/Vol] 5.9 10*3/uL Normal 4.0-10.5 [facility]; [facility] Work Phone: Comment on above: PATIENT NOT FASTINGP ERFORMED BY: [facility]6370 [facility] [id number] Information: 295946,[id number] CBC WITH MANUAL DIFF (64615) Ordered By: Bed Rubber on 07-18-2012 Basophils #/vol (Bld) 0.1 {x10E3/uL} Normal 0.0-0.2 [facility] Work Phone: Comment on above: PATIENT NOT FASTINGP ERFORMED BY: CRISTINA [facility]Co[facility] CenterLjrxkk9576 [facility] [id number] Information: 696370,T23141 Basophils (Bld) [#/Vol] 0.1 10*3/uL Normal 0.0-0.2 [facility]; [facility] Work Phone: Comment on above: PATIENT NOT FASTINGP ERFORMED BY: [address] [id number] Information: 671089,Y14264 Basophils/100 WBC (Bld) 1 % Normal 0-3 [facility] Work Phone: Comment on above: PATIENT NOT FASTINGP ERFORMED BY: [address] [id number] Information: 777780,R52610 Eosinophils #/vol (Bld) 0.2 {x10E3/uL} Normal 0.0-0.4 [facility] Work Phone: Comment on above: PATIENT NOT FASTINGP ERFORMED BY: [place] 0071470 [facility] [id number] Information: 033811,V76623 Eosinophils (Bld) [#/Vol] 0.2 10*3/uL Normal 0.0-0.4 [facility]; [facility] Work Phone: Comment on above: PATIENT NOT FASTINGP ERFORMED BY: [place] 0071470 [facility] [id number] Information: 778759,S99229 Eosinophils/100 WBC (Bld) 3 % Normal 0-7 [facility] Work Phone: Comment on above: PATIENT NOT FASTINGP ERFORMED BY: [address] [id number] Information: 275630,[id number] Erythrocyte distribution width Ratio (RBC) 13.8 % Normal 12.3-15.4 [facility] Work Phone: Comment on above: PATIENT NOT FASTINGP ERFORMED BY: [place] 0071470 [facility] [id number] Information: 600224,D98347 Hematocrit Volume Fraction (Bld) 42.8 % Normal 34.0-46.6 [facility] Work Phone: Comment on above: PATIENT NOT FASTINGP ERFORMED BY: [address] [id number] Information: 948227,Z48800 Hemoglobin mass conc (Bld) 13.8 g/dL Normal 11.1-15.9 [facility] Work Phone: Comment on above: PATIENT NOT FASTINGP ERFORMED BY: [address] [id number] Information: 575246,U06677 Immature granulocytes #/vol (Bld) 0.0 {x10E3/uL} Normal 0.0-0.1 [facility] Work Phone: Comment on above: PATIENT NOT FASTINGP ERFORMED BY: [address] [id number] Information: 239543,A13156 Immature granulocytes (Bld) [#/Vol] 0.0 10*3/uL Normal 0.0-0.1 [facility]; [facility] Work Phone: Comment on above: PATIENT NOT FASTINGP ERFORMED BY: [place] 0071470 [facility] [id number] Information: 963178,I03656 Immature granulocytes/100 WBC (Bld) 0 % Normal 0-2 [facility] Work Phone: Comment on above: PATIENT NOT FASTINGP ERFORMED BY: [address] [id number] Information: 989615,L33369 Lymphocytes #/vol (Bld) 2.2 {x10E3/uL} Normal 0.7-4.5 [facility] Work Phone: Comment on above: PATIENT NOT FASTINGP ERFORMED BY: [facility] Ymgbes5761 [facility] [id number] Information: 317740,H52975 Lymphocytes (Bld) [#/Vol] 2.2 10*3/uL Normal 0.7-4.5 [facility]; [facility] Work Phone: Comment on above: PATIENT NOT FASTINGP ERFORMED BY: LabCoEric V[place] 5464870 [facility] [id number] Information: 959813,I39003 Lymphocytes/100 WBC (Bld) 33 % Normal 14-46 [facility] Work Phone: Comment on above: PATIENT NOT FASTINGP ERFORMED BY: LabCo[address] [id number] Information: 034172,[id number] MCH Entitic mass (RBC) 29.1 pg Normal 26.6-33.0 [facility] Work Phone: Comment on above: PATIENT NOT FASTINGP ERFORMED BY: LabCoEric [place] 5464870 [facility] [id number] Information: 855899,J55614 MCHC mass conc (RBC) 32.2 g/dL Normal 31.5-35.7 [facility] Work Phone: Comment on above: PATIENT NOT FASTINGP ERFORMED BY: LabCo[address] [id number] Information: 556903,Z81980 MCV Entitic volume (RBC) 90 fL Normal 79-97 [facility] Work Phone: Comment on above: PATIENT NOT FASTINGP ERFORMED BY: LabCoEric [place] 5464870 [facility] [id number] Information: 120789,P85267 Monocytes #/vol (Bld) 0.6 {x10E3/uL} Normal 0.1-1.0 [facility] Work Phone: Comment on above: PATIENT NOT FASTINGP ERFORMED BY: LabCoEric [place] 5464870 [facility] [id number] Information: 598271,[id number] Monocytes (Bld) [#/Vol] 0.6 10*3/uL Normal 0.1-1.0 [facility]; [facility] Work Phone: Comment on above: PATIENT NOT FASTINGP ERFORMED BY: [facility]6370 [facility] [id number] Information: 550949,K78814 Monocytes/100 WBC (Bld) 10 % Normal 4-13 [facility] Work Phone: Comment on above: PATIENT NOT FASTINGP ERFORMED BY: [facility]Co Ceoofx55[address] [id number] Information: 180936,Z34362 Neutrophils #/vol (Bld) 3.5 {x10E3/uL} Normal 1.8-7.8 [facility] Work Phone: Comment on above: PATIENT NOT FASTINGP ERFORMED BY: [facility] Ezmtyk8016 [facility] [id number] Information: [id number] Neutrophils (Bld) [#/Vol] 3.5 10*3/uL Normal 1.8-7.8 [facility]; [facility] Work Phone: Comment on above: PATIENT NOT FASTINGP ERFORMED BY: LabCo[facility] [place] [id number] [facility] [id number] Information: [id number] Neutrophils/100 WBC (Bld) 53 % Normal 40-74 [facility] Work Phone: Comment on above: PATIENT NOT FASTINGP ERFORMED BY: [facility]CoChristian [facility] CenterOqwggp4773 [facility] [id number] Information: [id number] Platelets #/vol (Bld) 190 {x10E3/uL} Normal 140-415 [facility] Work Phone: Comment on above: PATIENT NOT FASTINGP ERFORMED BY: [facility] Oiiizy8336 [facility] [id number] Information: [id number] Platelets (Bld) [#/Vol] 190 10*3/uL Normal 140-415 [facility]; [facility] Work Phone: Comment on above: PATIENT NOT FASTINGP ERFORMED BY: CRISTINA Velasquez Dlbyal6445 [facility] [id number] Information: [id number] RBC #/vol (Bld) 4.74 {x10E6/uL} Normal 3.77-5.28 [facility] Internal Medicine Work Phone: Comment on above: PATIENT NOT FASTINGP ERFORMED BY: CRISTINA Velasquez Ukktqv4131 [facility] [id number] Information: [id number] RBC (Bld) [#/Vol] 4.74 10*6/uL Normal 3.77-5.28 [facility] Internal Medicine; [facility] Work Phone: Comment on above: PATIENT NOT FASTINGP ERFORMED BY: [facility]6370 [facility] [id number] Information: [id number] WBC #/vol (Bld) 6.5 {x10E3/uL} Normal 4.0-10.5 [facility] Internal Medicine Work Phone: Comment on above: PATIENT NOT FASTINGP ERFORMED BY: [facility]6370 [facility] [id number] Information: [id number] WBC (Bld) [#/Vol] 6.5 10*3/uL Normal 4.0-10.5 [facility]; [facility] Work Phone: Comment on above: PATIENT NOT FASTINGP ERFORMED BY: CRISTINA [facility] Dqorpg9864 [facility] [id number] Information: [id number] Hemoglobin Glyclated (HGB A1 C) ([id number])Ordered By: Bed Rubber on 07-18-2012 Hemoglobin A1c/Hemoglobin.tota l mass fraction (Bld) 4.9 % Normal 4.8-5.6 [facility] Work Phone: Comment on above: . Increased risk for diabetes: 5.7 - 6.4 Diabetes: >6.4 Glycemic control for adults with diabetes: <7.0 PATIENT NOT FASTINGP ERFORMED BY: CB [facility] Nyuylt6122 [address]Dublin [place] [id number] METABOLIC PANEL, COMPREHENSI VE ([id number])Ordered By: Bed Rubber on 07-18-2012 Albumin mass conc 4.4 g/dL Normal 3.5-5.5 Compreh ensive [facility] Work Phone: Comment on above: PATIENT NOT FASTINGP ERFORMED BY: CB [facility] Pyozle0672 [address]i RoadDublin [place] [id number] Albumin/Globulin mass ratio 1.7 {ratio} Normal 1.1-2.5 [facility] Work Phone: Comment on above: PATIENT NOT FASTINGP ERFORMED BY: CB [facility] Cabafw1084 [address]i RoadDublin [place] [id number] ALP [Catalytic activity/Vol] 93 U/L Normal 25-150 [facility]; [facility] Work Phone: Comment on above: PATIENT NOT FASTINGP ERFORMED BY: CB [facility] Vagwux7492 [address]i RoadDublin [place] [id number] ALP enzyme act/vol 93 [iU]/L Normal 25-150 [facility] Internal Medicine Work Phone: Comment on above: PATIENT NOT FASTINGP ERFORMED BY: CB [facility] Iugjav9540 [address] RoadDublin [place] [id number] ALT [Catalytic activity/Vol] 11 U/L Normal 0-32 [facility]; [facility] Work Phone: Comment on above: PATIENT NOT FASTINGP ERFORMED BY: CB [facility] Tqjhtw3319 [address]i RoadDublin [place] [id number] ALT enzyme act/vol 11 [iU]/L Normal 0-32 [facility] Internal Medicine Work Phone: Comment on above: PATIENT NOT FASTINGP ERFORMED BY: CB [facility] Uykzdx3597 [address] RoadDublin [place] [id number] AST [Catalytic activity/Vol] 21 U/L Normal 0-40 [facility]; [facility] Work Phone: Comment on above: PATIENT NOT FASTINGP ERFORMED BY: CB [facility] Winhqs6462 [address] RoadDublin [place] [id number] AST enzyme act/vol 21 [iU]/L Normal 0-40 Compre hensive Internal Medicine Work Phone: Comment on above: PATIENT NOT FASTINGP ERFORMED BY: CB [facility] Gaprrq5860 [address]Dublin [place] [id number] Bilirubin mass conc 0.4 mg/dL Normal 0.0-1.2 Compr ehensive Internal Medicine Work Phone: Comment on above: PATIENT NOT FASTINGP ERFORMED BY: CRISTINA [facility] Qvmupq3571 [address]i RoadDublin [place] [id number] Calcium mass conc 9.3 mg/dL Normal 8.7-10.2 Compreh bannerive Internal Medicine Work Phone: Comment on above: PATIENT NOT FASTINGP ERFORMED BY: CRISTINA [facility] Jmbomx7124 [address] RoadDublin [place] [id number] Chloride molar conc 103 mmol/L Normal 97-108 Compr ensive [facility] Work Phone: Comment on above: PATIENT NOT FASTINGP ERFORMED BY: CB [facility] Mglgue1175 [address]Dublin [place] [id number] CO2 molar conc 22 mmol/L Normal 20-32 Comprehens [facility] Work Phone: Comment on above: PATIENT NOT FASTINGP ERFORMED BY: CB [facility] Aefuxr7629 [address] RoadDublin [place] [id number] Creatinine mass conc 0.80 mg/dL Normal 0.57-1.00 [facility] Work Phone: Comment on above: PATIENT NOT FASTINGP ERFORMED BY: CB [facility] Bqkqps7523 [address] RoadDublin [place] [id number] GFR/1.73 sq M predicted among blacks CKD-EPI vol rate/area (S/P/Bld) 122 mL/min/1.73 Normal Comprehensiv e Internal Medicine Work Phone: Comment on above: PATIENT NOT FASTINGP ERFORMED BY: CRISTINA LabJosephine WangGqgams4070 [address] [facility] [place] [id number] GFR/1.73 sq M predicted among non-blacks CKD-EPI vol rate/area (S/P/Bld) 106 mL/min/1.73 Normal [facility] Work Phone: Comment on above: PATIENT NOT FASTINGP ERFORMED BY: CRISTINA [facility] Ydrcdi9166 [address] [facility] [place] [id number] Globulin mass conc (S) 2.6 g/dL Normal 1.5-4.5 [facility] Work Phone: Comment on above: PATIENT NOT FASTINGP ERFORMED BY: CRISTINA LabJosephnie WangWfslcg3491 [facility] [id number] Glucose mass conc 81 mg/dL Normal 65-99 Compreh ensive [facility] Work Phone: Comment on above: PATIENT NOT FASTINGP ERFORMED BY: CRISTINA LabJosephine Gallardo6370 [facility] [id number] Potassium molar conc 4.1 mmol/L Normal 3.5-5.2 [facility] Work Phone: Comment on above: PATIENT NOT FASTINGP ERFORMED BY: CRISTINA [facility] Wnjphi2947 [facility] [id number] Protein mass conc 7.0 g/dL Normal 6.0-8.5 Compreh ensive [facility] Work Phone: Comment on above: PATIENT NOT FASTINGP ERFORMED BY: CRISTINA [facility] Exgeax4401 [facility] [id number] Sodium molar conc 138 mmol/L Normal 134-144 Compreh ensive [facility] Medicine Work Phone: Comment on above: PATIENT NOT FASTINGP ERFORMED BY: CRISTINA [facility] Yshwuv4474 [address] [facility] [id number] Urea nitrogen mass conc 9 mg/dL Normal 6-20 [facility] Work Phone: Comment on above: PATIENT NOT FASTINGP ERFORMED BY: CB [facility] Cgbfix0650 [address] [employer] [place] [id number] Urea nitrogen/Creatinine mass ratio 11 mg/mg Normal 8-20 [facility] Work Phone: Comment on above: PATIENT NOT FASTINGP ERFORMED BY: CB [facility] Lxxkfo3921 [address] CompBlueblin [place] [id number] TSH ([id number])Ordered By: Lupis m Oral And Maxillofacial Surgery Resident on 07-18-2012 Thyrotropin Qn 2.430 {uIU/mL} Normal 0.450-4.500 [facility] Internal Medicine Work Phone: Comment on above: PATIENT NOT FASTINGP ERFORMED BY: CB [facility] Peslpv1868 [address] [employer]in [place] [id number] OCCULT BLOOD FECES SCREEN (2 [id number])Ordered By: Max Kaiser on 12-20-2010 Hemoglobin.gastroin testinal Ql (St) Negative Normal [facility] Work Phone: Hemoglobin.gastroin testinal Ql (Stl) Negative Normal [facility]; [facility] Work Phone: Urinalysis, Office ([id number])Or dered By: Mikaela Mac on 12-20-2010 Bilirubin Ql (U) Negative Normal Comprehe nsive [facility] Work Phone: Bilirubin Ql (U) Negative Normal Comprehe nsive [facility]; [facility] Work Phone: Glucose Test strip (U) [Mass/Vol] Negative Normal [facility]; [facility] Work Phone: Glucose Test strip mass conc (U) Negative Normal [facility] Work Phone: Hemoglobin Ql (U) Negative Normal Compreh ensive [facility] Work Phone: Hemoglobin Ql (U) Negative Normal Compreh ensive [facility]; [facility] Work Phone: Ketones Ql (U) Negative Normal [facility]prehens [facility] Work Phone: Ketones Ql (U) Negative Normal [facility]; [facility] Work Phone: Leukocyte esterase Test strip Ql (U) Negative Normal [facility] Work Phone: Leukocyte esterase Test strip Ql (U) Negative Normal [facility]; [facility] Work Phone: Nitrite Ql (U) Negative Normal [facility] Work Phone: Nitrite Ql (U) Negative Normal [facility]; [facility] Work Phone: pH (U) 6.0 [pH] Normal [facility] Work Phone: Protein Ql (U) Negative Normal [facility] Work Phone: Protein Ql (U) Negative Normal [facility]; [facility] Work Phone: Specific gravity Relative Density (U) 1.015 1 Normal [facility] Work Phone: Urobilinogen mass/time (24H U) Normal Normal [facility] Work Phone: Vital Signs Date Time Vital Sign Value Performing Clinician Facility 03-18-2025 11:46-0400 Diastolic blood pressure 62 mm[Hg] Ace Raymond MD Work Phone: [facility] 03-18-2025 11:46-0400 Heart rate 68 /min Ace Raymond MD Work Phone: [facility] 03-18-2025 11:46-0400 Respiratory rate 17 /min Ace Raymond MD Work Phone: [facility] 03-18-2025 11:46-0400 SaO2% (BldA) [Mass fraction] 97 % Ace Raymond MD Work Phone: [facility] 03-18-2025 11:46-0400 Systolic blood pressure 134 mm[Hg] Ace Raymond MD Work Phone: [facility] 03-18-2025 11:28-0400 Body height 172.7 cm Ace Raymond MD Work Phone: [facility] 03-18-2025 11:28-0400 Body mass index (BMI) [Ratio] 23.13 kg/m2 Ace Raymond MD Work Phone: [facility] 03-18-2025 11:28-0400 Body weight 69 kg Ace Raymond MD Work Phone: [facility] 01-13-2025 13:47-0400 Body height 172.7 cm Us Beac Work Phone: [facility] 01-13-2025 13:47-0400 Body mass index (BMI) [Ratio] 23.26 kg/m2 Us Beac Work Phone: [facility] 01-13-2025 13:47-0400 Body weight 69.4 kg Us Beac Work Phone: [facility] 01-13-2025 13:47-0400 Diastolic blood pressure 82 mm[Hg] Us Beac Work Phone: [facility] 01-13-2025 13:47-0400 Heart rate 76 /min Us Beac Work Phone: [facility] 01-13-2025 13:47-0400 Systolic blood pressure 118 mm[Hg] Us Beac Work Phone: [facility] 01-05-2025 13:38-0400 Body height 175.3 cm Cristopher Alaniz STEAM SHOVELMAN.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 Work Phone: [facility] 01-05-2025 13:38-0400 Body mass index (BMI) [Ratio] 22.74 kg/m2 Cristopher Haury STEAM SHOVELMAN.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 Work Phone: [facility] 01-05-2025 13:38-0400 Body weight 69.85 kg Cristopher Haury STEAM SHOVELMAN.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 Work Phone: [facility] 01-05-2025 13:38-0400 Diastolic blood pressure 64 mm[Hg] Cristopher Haury STEAM SHOVELMAN.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 Work Phone: [facility] 01-05-2025 13:38-0400 Systolic blood pressure 106 mm[Hg] Cristopher Raejohn KIDD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 Work Phone: [facility] 10-20-2024 15:41-0400 Body mass index (BMI) [Ratio] 23.87 kg/m2 Chantal Caputoi DO Work Phone: [facility] 10-20-2024 15:41-0400 Body temperature 98.01 [degF] Chantal Caputoi DO Work Phone: [facility] 10-20-2024 15:41-0400 Body weight 71.22 kg Chantal Patitoi DO Work Phone: [facility] 10-20-2024 15:41-0400 Diastolic blood pressure 73 mm[Hg] Chantal Caputoi DO Work Phone: [facility] 10-20-2024 15:41-0400 Heart rate 86 /min Chatnal Caputoi DO Work Phone: [facility] 10-20-2024 15:41-0400 SaO2% (BldA) [Mass fraction] 98 % Chantal Caputoi DO Work Phone: [facility] 10-20-2024 15:41-0400 Systolic blood pressure 119 mm[Hg] Chantal Caputoi DO Work Phone: [facility] 09-22-2024 10:10-0400 Body height 172.7 cm Jam Foley MD Work Phone: [facility] 09-22-2024 10:10-0400 Body mass index (BMI) [Ratio] 23.06 kg/m2 Jam Foley MD Work Phone: [facility] 09-22-2024 10:10-0400 Body weight 68.8 kg Jam Foley MD Work Phone: [facility] 09-22-2024 10:10-0400 Diastolic blood pressure 75 mm[Hg] Jam Foley MD Work Phone: [facility] 09-22-2024 10:10-0400 Heart rate 69 /min Jma Foley MD Work Phone: [facility] 09-22-2024 10:10-0400 Respiratory rate 19 /min Jam Foley MD Work Phone: [facility] 09-22-2024 10:10-0400 SaO2% (BldA) [Mass fraction] 100 % Jam Foley MD Work Phone: [facility] 09-22-2024 10:10-0400 Systolic blood pressure 112 mm[Hg] Jam Foley MD Work Phone: [facility] 07-21-2024 11:27-0500 Body mass index (BMI) [Ratio] 22.75 kg/m2 Chantal Masci DO Work Phone: [facility] 07-21-2024 11:27-0500 Body temperature 98.71 [degF] Chantal Masci DO Work Phone: [facility] 07-21-2024 11:27-0500 Body weight 68.49 kg Chantal Masci DO Work Phone: [facility] 07-21-2024 11:27-0500 Diastolic blood pressure 82 mm[Hg] Chantal Masci DO Work Phone: [facility] 07-21-2024 11:27-0500 Heart rate 86 /min Chantal Masci DO Work Phone: [facility] 07-21-2024 11:27-0500 SaO2% (BldA) [Mass fraction] 100 % Chantal Masci DO Work Phone: [facility] 07-21-2024 11:27-0500 Systolic blood pressure 124 mm[Hg] Chantal Masci DO Work Phone: [facility] 07-17-2024 15:39-0500 Body mass index (BMI) [Ratio] 22.3 kg/m2 Injection Wstr Work Phone: [facility] 07-17-2024 15:39-0500 Body temperature 98.71 [degF] Injection Wstr Work Phone: [facility] 07-17-2024 15:39-0500 Body weight 67.13 kg Injection Wstr Work Phone: [facility] 07-17-2024 15:39-0500 Diastolic blood pressure 77 mm[Hg] Injection Wstr Work Phone: [facility] 07-17-2024 15:39-0500 Heart rate 75 /min Injection Wstr Work Phone: [facility] 07-17-2024 15:39-0500 SaO2% (BldA) [Mass fraction] 99 % Injection Wstr Work Phone: [facility] 07-17-2024 15:39-0500 Systolic blood pressure 113 mm[Hg] Injection Wstr Work Phone: [facility] 06-19-2024 15:44-0500 Body mass index (BMI) [Ratio] 21.7 kg/m2 Injection Wstr Work Phone: [facility] 06-19-2024 15:44-0500 Body temperature 97.81 [degF] Injection Wstr Work Phone: [facility] 06-19-2024 15:44-0500 Body weight 65.32 kg Injection Wstr Work Phone: [facility] 06-19-2024 15:44-0500 Diastolic blood pressure 81 mm[Hg] Injection Wstr Work Phone: [facility] 06-19-2024 15:44-0500 Heart rate 88 /min Injection Wstr Work Phone: [facility] 06-19-2024 15:44-0500 SaO2% (BldA) [Mass fraction] 99 % Injection Wstr Work Phone: [facility] 06-19-2024 15:44-0500 Systolic blood pressure 128 mm[Hg] Injection Wstr Work Phone: [facility] 05-22-2024 15:15-0500 Body mass index (BMI) [Ratio] 21.85 kg/m2 Injection Wstr Work Phone: [facility] 05-22-2024 15:15-0500 Body temperature 98.1 [degF] Injection Wstr Work Phone: [facility] 05-22-2024 15:15-0500 Body weight 65.77 kg Injection Wstr Work Phone: [facility] 05-22-2024 15:15-0500 Diastolic blood pressure 76 mm[Hg] Injection Wstr Work Phone: [facility] 05-22-2024 15:15-0500 Heart rate 82 /min Injection Wstr Work Phone: [facility] 05-22-2024 15:15-0500 SaO2% (BldA) [Mass fraction] 98 % Injection Wstr Work Phone: [facility] 05-22-2024 15:15-0500 Systolic blood pressure 114 mm[Hg] Injection Wstr Work Phone: [facility] 05-05-2024 17:24-0400 Body mass index (BMI) [Ratio] 22.06 kg/m2 Radha Story APRN.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 Work Phone: [facility] 05-05-2024 17:24-0400 Body temperature 98.29 [degF] Radha Story APRN.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 Work Phone: [facility] 05-05-2024 17:24-0400 Body weight 66.4 kg Radha Story APRN.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 Work Phone: [facility] 05-05-2024 17:24-0400 Diastolic blood pressure 72 mm[Hg] Radha Story APRN.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 Work Phone: [facility] 05-05-2024 17:24-0400 Heart rate 82 /min Radha Story APRN.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 Work Phone: [facility] 05-05-2024 17:24-0400 Respiratory rate 16 /min Radha Story APRN.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 Work Phone: [facility] 05-05-2024 17:24-0400 SaO2% (BldA) [Mass fraction] 98 % Radha Story APRN.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 Work Phone: [facility] 05-05-2024 17:24-0400 Systolic blood pressure 110 mm[Hg] Radha Story APRN.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 Work Phone: [facility] 04-24-2024 15:31-0400 Body mass index (BMI) [Ratio] 22.15 kg/m2 Injection Wstr Work Phone: [facility] 04-24-2024 15:31-0400 Body temperature 99 [degF] Injection Wstr Work Phone: [facility] 04-24-2024 15:31-0400 Body weight 66.68 kg Injection Wstr Work Phone: [facility] 04-24-2024 15:31-0400 Diastolic blood pressure 79 mm[Hg] Injection Wstr Work Phone: [facility] 04-24-2024 15:31-0400 Heart rate 99 /min Injection Wstr Work Phone: [facility] 04-24-2024 15:31-0400 SaO2% (BldA) [Mass fraction] 99 % Injection Wstr Work Phone: [facility] 04-24-2024 15:31-0400 Systolic blood pressure 124 mm[Hg] Injection Wstr Work Phone: [facility] 03-24-2024 15:32-0400 Body mass index (BMI) [Ratio] 21.85 kg/m2 Injection Wstr Work Phone: [facility] 03-24-2024 15:32-0400 Body temperature 99.3 [degF] Injection Wstr Work Phone: [facility] 03-24-2024 15:32-0400 Body weight 65.77 kg Injection Wstr Work Phone: [facility] 03-24-2024 15:32-0400 Diastolic blood pressure 70 mm[Hg] Injection Wstr Work Phone: [facility] 03-24-2024 15:32-0400 Heart rate 78 /min Injection Wstr Work Phone: [facility] 03-24-2024 15:32-0400 Respiratory rate 1 /min Injection Wstr Work Phone: [facility] 03-24-2024 15:32-0400 SaO2% (BldA) [Mass fraction] 100 % Injection Wstr Work Phone: [facility] 03-24-2024 15:32-0400 Systolic blood pressure 126 mm[Hg] Injection Wstr Work Phone: [facility] 02-26-2024 15:16-0400 Body mass index (BMI) [Ratio] 22 kg/m2 Injection Wstr Work Phone: [facility] 02-26-2024 15:16-0400 Body temperature 99.1 [degF] Injection Wstr Work Phone: [facility] 02-26-2024 15:16-0400 Body weight 66.22 kg Injection Wstr Work Phone: [facility] 02-26-2024 15:16-0400 Diastolic blood pressure 84 mm[Hg] Injection Wstr Work Phone: [facility] 02-26-2024 15:16-0400 Heart rate 83 /min Injection Wstr Work Phone: [facility] 02-26-2024 15:16-0400 Respiratory rate 12 /min Injection Wstr Work Phone: [facility] 02-26-2024 15:16-0400 SaO2% (BldA) [Mass fraction] 100 % Injection Wstr Work Phone: [facility] 02-26-2024 15:16-0400 Systolic blood pressure 131 mm[Hg] Injection Wstr Work Phone: [facility] 01-28-2024 14:48-0400 Body mass index (BMI) [Ratio] 21.55 kg/m2 Injection Wstr Work Phone: [facility] 01-28-2024 14:48-0400 Body temperature 99 [degF] Injection Wstr Work Phone: [facility] 01-28-2024 14:48-0400 Body weight 64.86 kg Injection Wstr Work Phone: [facility] 01-28-2024 14:48-0400 Diastolic blood pressure 73 mm[Hg] Injection Wstr Work Phone: [facility] 01-28-2024 14:48-0400 Heart rate 86 /min Injection Wstr Work Phone: [facility] 01-28-2024 14:48-0400 Respiratory rate 12 /min Injection Wstr Work Phone: [facility] 01-28-2024 14:48-0400 SaO2% (BldA) [Mass fraction] 98 % Injection Wstr Work Phone: [facility] 01-28-2024 14:48-0400 Systolic blood pressure 110 mm[Hg] Injection Wstr Work Phone: [facility] 01-14-2024 11:37-0400 Body mass index (BMI) [Ratio] 22.08 kg/m2 Steff Hernandez STEAM SHOVELMAN.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 Work Phone: [facility] 01-14-2024 11:37-0400 Body temperature 97.11 [degF] Steff Hernandez STEAM SHOVELMAN.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 Work Phone: [facility] 01-14-2024 11:37-0400 Body weight 66.45 kg Steff Hernandez STEAM SHOVELMAN.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 Work Phone: [facility] 01-14-2024 11:37-0400 Diastolic blood pressure 78 mm[Hg] Steff Hernandez STEAM SHOVELMAN.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 Work Phone: [facility] 01-14-2024 11:37-0400 Heart rate 74 /min Steff Hernandez STEAM SHOVELMAN.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 Work Phone: [facility] 01-14-2024 11:37-0400 SaO2% (BldA) [Mass fraction] 98 % Steff Hernandez STEAM SHOVELMAN.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 Work Phone: [facility] 01-14-2024 11:37-0400 Systolic blood pressure 112 mm[Hg] [place] Hernandez STEAM SHOVELMAN.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 Work Phone: [facility] 01-02-2024 09:30-0400 Diastolic blood pressure 68 mm[Hg] Luz Thomae DO Work Phone: [facility] 01-02-2024 09:30-0400 Heart rate 73 /min Luz Thomae DO Work Phone: [facility] 01-02-2024 09:30-0400 Respiratory rate 16 /min Luz Thomae DO Work Phone: [phone] [place] [address] 01-02-2024 09:30-0400 SaO2% (BldA) [Mass fraction] 99 % Luz Qiuae DO Work Phone: 5(313)[phone] [place] [address] 01-02-2024 09:30-0400 Systolic blood pressure 105 mm[Hg] Luz Thomae DO Work Phone: [facility] 01-02-2024 07:56-0400 Body height 172.7 cm Luz Thomae DO Work Phone: 1(020)[phone] [place] [address] 01-02-2024 07:56-0400 Body mass index (BMI) [Ratio] 22.23 kg/m2 Luz Thomae DO Work Phone: [facility] 01-02-2024 07:56-0400 Body temperature 97.7 [degF] Luz Thomae DO Work Phone: [facility] 01-02-2024 07:56-0400 Body weight 66.32 kg Luz Thomae DO Work Phone: [facility] 01-01-2024 15:00-0400 Body mass index (BMI) [Ratio] 22 kg/m2 Injection Wstr Work Phone: [facility] 01-01-2024 15:00-0400 Body temperature 98.8 [degF] Injection Wstr Work Phone: [facility] 01-01-2024 15:00-0400 Body weight 66.22 kg Injection Wstr Work Phone: [facility] 01-01-2024 15:00-0400 Diastolic blood pressure 72 mm[Hg] Injection Wstr Work Phone: [facility] 01-01-2024 15:00-0400 Heart rate 81 /min Injection Wstr Work Phone: [facility] 01-01-2024 15:00-0400 SaO2% (BldA) [Mass fraction] 97 % Injection Wstr Work Phone: [facility] 01-01-2024 15:00-0400 Systolic blood pressure 110 mm[Hg] Injection Wstr Work Phone: [facility] 12-28-2023 14:03-0400 Body height 173.5 cm Cristophereaston Alaniz STEAM SHOVELMAN.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 Work Phone: [facility] 12-28-2023 14:03-0400 Body mass index (BMI) [Ratio] 22.45 kg/m2 Cristopher Hajohn STEAM SHOVELMAN.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 Work Phone: [facility] 12-28-2023 14:03-0400 Body weight 67.59 kg Cristophereaston Alaniz STEAM SHOVELMAN.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 Work Phone: [facility] 12-28-2023 14:03-0400 Diastolic blood pressure 70 mm[Hg] Cristopher Haury STEAM SHOVELMAN.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 Work Phone: [facility] 12-28-2023 14:03-0400 Heart rate 88 /min Cristopher Haury STEAM SHOVELMAN.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 Work Phone: [facility] 12-28-2023 14:03-0400 Respiratory rate 14 /min Cristopher Haury STEAM SHOVELMAN.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 Work Phone: [facility] 12-28-2023 14:03-0400 SaO2% (BldA) [Mass fraction] 98 % Cristopher Hajohn STEAM SHOVELMAN.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 Work Phone: [facility] 12-28-2023 14:03-0400 Systolic blood pressure 108 mm[Hg] Cristopher Hajohn STEAM SHOVELMAN.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 Work Phone: [facility] 12-27-2023 11:01-0400 Body height 172.7 cm Anabelle Stubbs MD Work Phone: [facility] 12-27-2023 11:01-0400 Body mass index (BMI) [Ratio] 22.46 kg/m2 Anabelle Stubbs MD Work Phone: [facility] 12-27-2023 11:01-0400 Body weight 67 kg Anabelle Stubbs MD Work Phone: [facility] 12-27-2023 11:01-0400 Diastolic blood pressure 76 mm[Hg] Anabelle Stubbs MD Work Phone: [facility] 12-27-2023 11:01-0400 Heart rate 74 /min Anabelle Stubbs MD Work Phone: [facility] 12-27-2023 11:01-0400 Respiratory rate 20 /min Anabelle Stubbs MD Work Phone: [facility] 12-27-2023 11:01-0400 SaO2% (BldA) [Mass fraction] 100 % Anabelle Stubbs MD Work Phone: [facility] 12-27-2023 11:01-0400 Systolic blood pressure 118 mm[Hg] Anabelle Stubbs MD Work Phone: [facility] 12-04-2023 15:24-0400 Body mass index (BMI) [Ratio] 22.12 kg/m2 Injection Wstr Work Phone: [facility] 12-04-2023 15:24-0400 Body temperature 98.49 [degF] Injection Wstr Work Phone: [facility] 12-04-2023 15:24-0400 Body weight 66 kg Injection Wstr Work Phone: [facility] 12-04-2023 15:24-0400 Diastolic blood pressure 69 mm[Hg] Injection Wstr Work Phone: [facility] 12-04-2023 15:24-0400 Heart rate 77 /min Injection Wstr Work Phone: [facility] 12-04-2023 15:24-0400 SaO2% (BldA) [Mass fraction] 98 % Injection Wstr Work Phone: [facility] 12-04-2023 15:24-0400 Systolic blood pressure 113 mm[Hg] Injection Wstr Work Phone: [facility] 11-08-2023 16:06-0400 Body height 172.7 cm Luz Garza DO Work Phone: [facility] 11-08-2023 16:06-0400 Body mass index (BMI) [Ratio] 22.05 kg/m2 Luz Garza DO Work Phone: [facility] 11-08-2023 [id number] Body weight 65.77 kg Luz Garza DO Work Phone: [facility] 11-06-2023 15:29-0400 Body mass index (BMI) [Ratio] 22.81 kg/m2 Injection Wstr Work Phone: [facility] 11-06-2023 15:29-0400 Body temperature 98.91 [degF] Injection Wstr Work Phone: [facility] 11-06-2023 15:29-0400 Body weight 68.04 kg Injection Wstr Work Phone: [facility] 11-06-2023 15:29-0400 Diastolic blood pressure 70 mm[Hg] Injection Wstr Work Phone: [facility] 11-06-2023 15:29-0400 Heart rate 78 /min Injection Wstr Work Phone: [facility] 11-06-2023 15:29-0400 SaO2% (BldA) [Mass fraction] 99 % Injection Wstr Work Phone: [facility] 11-06-2023 15:29-0400 Systolic blood pressure 106 mm[Hg] Injection Wstr Work Phone: [facility] 10-10-2023 08:49-0400 Body temperature 97.9 [degF] Steff Hernandez APRN.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 Work Phone: [facility] 10-10-2023 08:49-0400 Body weight 65.05 kg Steff Hernandez STEAM SHOVELMAN.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 Work Phone: [facility] 10-10-2023 08:49-0400 Diastolic blood pressure 80 mm[Hg] Steff Hernandez STEAM SHOVELMAN.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 Work Phone: [facility] 10-10-2023 08:49-0400 Heart rate 88 /min Steff Hernandez STEAM SHOVELMAN.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 Work Phone: [facility] 10-10-2023 08:49-0400 SaO2% (BldA) [Mass fraction] 97 % Steff Hernandez STEAM SHOVELMAN.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 Work Phone: [facility] 10-10-2023 08:49-0400 Systolic blood pressure 113 mm[Hg] [place] Hernandez STEAM SHOVELMAN.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 Work Phone: [facility] 10-08-2023 18:44-0400 Body temperature 100.8 [degF] Negrito Moomaw STEAM SHOVELMAN.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 Work Phone: [facility] 10-08-2023 18:44-0400 Body weight 66.7 kg Negrito Moomaw STEAM SHOVELMAN.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 Work Phone: [facility] 10-08-2023 18:44-0400 Diastolic blood pressure 72 mm[Hg] Negrito Moomaw STEAM SHOVELMAN.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 Work Phone: [facility] 10-08-2023 18:44-0400 Heart rate 121 /min Negrito Moomaw STEAM SHOVELMAN.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 Work Phone: [facility] 10-08-2023 18:44-0400 Respiratory rate 18 /min Negrito Moomaw STEAM SHOVELMAN.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 Work Phone: [facility] 10-08-2023 18:44-0400 SaO2% (BldA) [Mass fraction] 98 % Negrito Moomaw STEAM SHOVELMAN.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 Work Phone: [facility] 10-08-2023 18:44-0400 Systolic blood pressure 140 mm[Hg] Negrito Moomaw STEAM SHOVELMAN.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 Work Phone: [facility] 09-12-2023 15:26-0500 Body temperature 98.91 [degF] Injection Wstr Work Phone: [facility] 09-12-2023 15:26-0500 Body weight 65.77 kg Injection Wstr Work Phone: [facility] 09-12-2023 15:26-0500 Diastolic blood pressure 73 mm[Hg] Injection Wstr Work Phone: [facility] 09-12-2023 15:26-0500 Heart rate 82 /min Injection Wstr Work Phone: [facility] 09-12-2023 15:26-0500 Respiratory rate 12 /min Injection Wstr Work Phone: [facility] 09-12-2023 15:26-0500 SaO2% (BldA) [Mass fraction] 99 % Injection Wstr Work Phone: [facility] 09-12-2023 15:26-0500 Systolic blood pressure 108 mm[Hg] Injection Wstr Work Phone: [facility] 08-13-2023 09:16-0500 Body temperature 98.29 [degF] Injection Wstr Work Phone: [facility] 08-13-2023 09:16-0500 Body weight 65.32 kg Injection Wstr Work Phone: [facility] 08-13-2023 09:16-0500 Diastolic blood pressure 72 mm[Hg] Injection Wstr Work Phone: [facility] 08-13-2023 09:16-0500 Heart rate 72 /min Injection Wstr Work Phone: [facility] 08-13-2023 09:16-0500 SaO2% (BldA) [Mass fraction] 100 % Injection Wstr Work Phone: [facility] 08-13-2023 09:16-0500 Systolic blood pressure 104 mm[Hg] Injection Wstr Work Phone: [facility] 07-10-2023 13:26-0500 Body height 172.7 cm Luz Garza DO Work Phone: [facility] 07-10-2023 13:26-0500 Body mass index (BMI) [Ratio] 22.05 kg/m2 Luz Garza DO Work Phone: [facility] 07-10-2023 13:26-0500 Body weight 65.77 kg Luz Garza DO Work Phone: [facility] 06-12-2023 15:06-0500 Body temperature 97.5 [degF] Injection Wstr Work Phone: [facility] 06-12-2023 15:06-0500 Body weight 65.32 kg Injection Wstr Work Phone: [facility] 06-12-2023 15:06-0500 Diastolic blood pressure 71 mm[Hg] Injection Wstr Work Phone: [facility] 06-12-2023 15:06-0500 Heart rate 88 /min Injection Wstr Work Phone: [facility] 06-12-2023 15:06-0500 Systolic blood pressure 124 mm[Hg] Injection Wstr Work Phone: [facility] 05-04-2023 14:47-0400 Diastolic blood pressure 63 mm[Hg] Dr. Jami Baker Work Phone: [facility] 05-04-2023 14:47-0400 Heart rate 94 /min Dr. Jami Baker Work Phone: [facility] 05-04-2023 14:47-0400 Respiratory rate 17 /min Dr. Jami Baker Work Phone: [facility] 05-04-2023 14:47-0400 SaO2% (BldA) [Mass fraction] 100 % Dr. Jami Baker Work Phone: [facility] 05-04-2023 14:47-0400 Systolic blood pressure 114 mm[Hg] Dr. Jami Baker Work Phone: [facility] 04-16-2023 16:01-0400 Body temperature 98.71 [degF] Chantal Patitoi DO Work Phone: [facility] 04-16-2023 16:01-0400 Body weight 66.68 kg Chantal Masci DO Work Phone: [facility] 04-16-2023 16:01-0400 Diastolic blood pressure 80 mm[Hg] Chantal Masci DO Work Phone: [facility] 04-16-2023 16:01-0400 Heart rate 83 /min Chantal Masci DO Work Phone: [facility] 04-16-2023 16:01-0400 SaO2% (BldA) [Mass fraction] 100 % Chantal Masci DO Work Phone: [facility] 04-16-2023 16:01-0400 Systolic blood pressure 124 mm[Hg] Chantal Patitoi DO Work Phone: [facility] 03-20-2023 14:50-0400 Body temperature 98.71 [degF] Injection Wstr Work Phone: [facility] 03-20-2023 14:50-0400 Body weight 66.68 kg Injection Wstr Work Phone: [facility] 03-20-2023 14:50-0400 Diastolic blood pressure 69 mm[Hg] Injection Wstr Work Phone: [facility] 03-20-2023 14:50-0400 Heart rate 85 /min Injection Wstr Work Phone: [facility] 03-20-2023 14:50-0400 Systolic blood pressure 112 mm[Hg] Injection Wstr Work Phone: [facility] 03-16-2023 14:50-0400 Body temperature 98.4 [degF] Treatment Wstr Work Phone: [facility] 03-16-2023 14:50-0400 Body weight 66 kg Treatment Wstr Work Phone: [facility] 03-16-2023 14:50-0400 Diastolic blood pressure 51 mm[Hg] Treatment Wstr Work Phone: [facility] 03-16-2023 14:50-0400 Heart rate 82 /min Treatment Wstr Work Phone: [facility] 03-16-2023 14:50-0400 Respiratory rate 20 /min Treatment Wstr Work Phone: [facility] 03-16-2023 14:50-0400 Systolic blood pressure 105 mm[Hg] Treatment Wstr Work Phone: [facility] 03-06-2023 15:48-0400 Body temperature 98.6 [degF] Chantla Masci DO Work Phone: [facility] 03-06-2023 15:48-0400 Body weight 66 kg Chantal Masci DO Work Phone: [facility] 03-06-2023 15:48-0400 Diastolic blood pressure 68 mm[Hg] Chantal Masci DO Work Phone: [facility] 03-06-2023 15:48-0400 Heart rate 84 /min Chantal Masci DO Work Phone: [facility] 03-06-2023 15:48-0400 SaO2% (BldA) [Mass fraction] 100 % Chantal Masci DO Work Phone: [facility] 03-06-2023 15:48-0400 Systolic blood pressure 110 mm[Hg] Chantal Masci DO Work Phone: [facility] 03-02-2023 15:30-0400 Body temperature 98.1 [degF] Treatment Wstr Work Phone: [facility] 03-02-2023 15:30-0400 Diastolic blood pressure 70 mm[Hg] Treatment Wstr Work Phone: [facility] 03-02-2023 15:30-0400 Heart rate 94 /min Treatment Wstr Work Phone: [facility] 03-02-2023 15:30-0400 Respiratory rate 16 /min Treatment Wstr Work Phone: [facility] 03-02-2023 15:30-0400 SaO2% (BldA) [Mass fraction] 98 % Treatment Wstr Work Phone: [facility] 03-02-2023 15:30-0400 Systolic blood pressure 108 mm[Hg] Treatment Wstr Work Phone: [facility] 02-28-2023 15:00-0400 Body temperature 97.9 [degF] Treatment Wstr Work Phone: [facility] 02-28-2023 15:00-0400 Diastolic blood pressure 70 mm[Hg] Treatment Wstr Work Phone: [facility] 02-28-2023 15:00-0400 Heart rate 86 /min Treatment Wstr Work Phone: [facility] 02-28-2023 15:00-0400 Systolic blood pressure 109 mm[Hg] Treatment Wstr Work Phone: [facility] 02-26-2023 15:52-0400 Body temperature 97.7 [degF] Treatment Wstr Work Phone: [facility] 02-26-2023 15:52-0400 Diastolic blood pressure 67 mm[Hg] Treatment Wstr Work Phone: [facility] 02-26-2023 15:52-0400 Heart rate 86 /min Treatment Wstr Work Phone: [facility] 02-26-2023 15:52-0400 SaO2% (BldA) [Mass fraction] 98 % Treatment Wstr Work Phone: [facility] 02-26-2023 15:52-0400 Systolic blood pressure 111 mm[Hg] Treatment Wstr Work Phone: [facility] 02-22-2023 15:37-0400 Body temperature 97.7 [degF] Treatment Wstr Work Phone: [facility] 02-22-2023 15:37-0400 Diastolic blood pressure 76 mm[Hg] Treatment Wstr Work Phone: [facility] 02-22-2023 15:37-0400 Heart rate 81 /min Treatment Wstr Work Phone: [facility] 02-22-2023 15:37-0400 Systolic blood pressure 109 mm[Hg] Treatment Wstr Work Phone: [facility] 02-14-2023 09:28-0400 Body temperature 97.59 [degF] Treatment Wstr Work Phone: [facility] 02-14-2023 09:28-0400 Diastolic blood pressure 61 mm[Hg] Treatment Wstr Work Phone: [facility] 02-14-2023 09:28-0400 Heart rate 86 /min Treatment Wstr Work Phone: [facility] 02-14-2023 09:28-0400 SaO2% (BldA) [Mass fraction] 100 % Treatment Wstr Work Phone: [facility] 02-14-2023 09:28-0400 Systolic blood pressure 104 mm[Hg] Treatment Wstr Work Phone: [facility] 02-13-2023 09:11-0400 Body weight 66.22 kg Lab/Port Wstr Work Phone: [facility] 01-24-2023 09:02-0400 Body temperature 97.59 [degF] Treatment Wstr Work Phone: [facility] 01-24-2023 09:02-0400 Diastolic blood pressure 68 mm[Hg] Treatment Wstr Work Phone: [facility] 01-24-2023 09:02-0400 Heart rate 76 /min Treatment Wstr Work Phone: [facility] 01-24-2023 09:02-0400 Systolic blood pressure 109 mm[Hg] Treatment Wstr Work Phone: [facility] 01-23-2023 08:57-0400 Body temperature 98.1 [degF] Chantal Ayers DO Work Phone: [facility] 01-23-2023 08:57-0400 Body weight 65.77 kg Chantal Ayers DO Work Phone: [facility] 01-23-2023 08:57-0400 Diastolic blood pressure 69 mm[Hg] Chantal Masci DO Work Phone: [facility] 01-23-2023 08:57-0400 Heart rate 75 /min Chantal Masci DO Work Phone: [facility] 01-23-2023 08:57-0400 SaO2% (BldA) [Mass fraction] 100 % Chantal Masci DO Work Phone: [facility] 01-23-2023 08:57-0400 Systolic blood pressure 114 mm[Hg] Chantal Masci DO Work Phone: [facility] 01-23-2023 08:49-0400 Body weight 65.77 kg Lab/Port Wstr Work Phone: [facility] 01-03-2023 09:28-0400 Body temperature 97.5 [degF] Treatment Wstr Work Phone: [facility] 01-03-2023 09:28-0400 Diastolic blood pressure 66 mm[Hg] Treatment Wstr Work Phone: [facility] 01-03-2023 09:28-0400 Heart rate 78 /min Treatment Wstr Work Phone: [facility] 01-03-2023 09:28-0400 Systolic blood pressure 116 mm[Hg] Treatment Wstr Work Phone: [facility] 01-02-2023 08:57-0400 Body temperature 98.1 [degF] Chantal Masci DO Work Phone: [facility] 01-02-2023 08:57-0400 Body weight 66.22 kg Chantal Masci DO Work Phone: [facility] 01-02-2023 08:57-0400 Diastolic blood pressure 68 mm[Hg] Chantal Masci DO Work Phone: [facility] 01-02-2023 08:57-0400 Heart rate 73 /min Chantal Masci DO Work Phone: [facility] 01-02-2023 08:57-0400 SaO2% (BldA) [Mass fraction] 99 % Chantal Masci DO Work Phone: [facility] 01-02-2023 08:57-0400 Systolic blood pressure 111 mm[Hg] Chantal Masci DO Work Phone: [facility] 01-02-2023 08:46-0400 Body weight 66.22 kg Lab/Port Wstr Work Phone: [facility] 12-13-2022 14:59-0400 Body temperature 99 [degF] Treatment Wstr Work Phone: [facility] 12-13-2022 14:59-0400 Diastolic blood pressure 73 mm[Hg] Treatment Wstr Work Phone: [facility] 12-13-2022 14:59-0400 Heart rate 85 /min Treatment Wstr Work Phone: [facility] 12-13-2022 14:59-0400 Respiratory rate 22 /min Treatment Wstr Work Phone: [facility] 12-13-2022 14:59-0400 Systolic blood pressure 119 mm[Hg] Treatment Wstr Work Phone: [facility] 12-12-2022 08:40-0400 Body temperature 97.2 [degF] Chantal Masci DO Work Phone: [facility] 12-12-2022 08:40-0400 Diastolic blood pressure 67 mm[Hg] Chantal Masci DO Work Phone: [facility] 12-12-2022 08:40-0400 Heart rate 81 /min Chantal Masci DO Work Phone: [facility] 12-12-2022 08:40-0400 Respiratory rate 16 /min Chantal Masci DO Work Phone: [facility] 12-12-2022 08:40-0400 SaO2% (BldA) [Mass fraction] 98 % Chantal Masci DO Work Phone: [facility] 12-12-2022 08:40-0400 Systolic blood pressure 114 mm[Hg] Chantal Masci DO Work Phone: [facility] 12-12-2022 08:33-0400 Body weight 67.13 kg Lab/Port Wstr Work Phone: [facility] 12-05-2022 14:42-0400 Body height 172.7 cm Jam Foley MD Work Phone: [facility] 12-05-2022 14:42-0400 Body weight 65.77 kg Jam Foley MD Work Phone: [facility] 12-05-2022 14:42-0400 Diastolic blood pressure 79 mm[Hg] Jam Foley MD Work Phone: [facility] 12-05-2022 14:42-0400 Systolic blood pressure 126 mm[Hg] Jam Foley MD Work Phone: [facility] 11-20-2022 10:37-0400 Body temperature 97.7 [degF] Chantal Masci DO Work Phone: [facility] 11-20-2022 10:37-0400 Body weight 66.68 kg Chantal Masci DO Work Phone: [facility] 11-20-2022 10:37-0400 Diastolic blood pressure 73 mm[Hg] Chantal Masci DO Work Phone: [facility] 11-20-2022 10:37-0400 Heart rate 81 /min Chantal Masci DO Work Phone: [facility] 11-20-2022 10:37-0400 Systolic blood pressure 108 mm[Hg] Chantal Masci DO Work Phone: [facility] 11-20-2022 10:30-0400 Body weight 66.68 kg Lab/Port Wstr Work Phone: [facility] 11-02-2022 09:36-0400 Body temperature 97.11 [degF] Treatment Wstr Work Phone: [facility] 11-02-2022 09:36-0400 Diastolic blood pressure 74 mm[Hg] Treatment Wstr Work Phone: [facility] 11-02-2022 09:36-0400 Heart rate 90 /min Treatment Wstr Work Phone: [facility] 11-02-2022 09:36-0400 Systolic blood pressure 117 mm[Hg] Treatment Wstr Work Phone: [facility] 10-31-2022 10:36-0400 Body temperature 98.01 [degF] Injection Wstr Work Phone: [facility] 10-31-2022 10:36-0400 Body weight 66.22 kg Injection Wstr Work Phone: [facility] 10-31-2022 10:36-0400 Diastolic blood pressure 60 mm[Hg] Injection Wstr Work Phone: [facility] 10-31-2022 10:36-0400 Heart rate 83 /min Injection Wstr Work Phone: [facility] 10-31-2022 10:36-0400 Systolic blood pressure 111 mm[Hg] Injection Wstr Work Phone: [facility] 10-10-2022 09:20-0400 Body temperature 96.91 [degF] Treatment Wstr Work Phone: [facility] 10-10-2022 09:20-0400 Diastolic blood pressure 75 mm[Hg] Treatment Wstr Work Phone: [facility] 10-10-2022 09:20-0400 Heart rate 77 /min Treatment Wstr Work Phone: [facility] 10-10-2022 09:20-0400 SaO2% (BldA) [Mass fraction] 98 % Treatment Wstr Work Phone: [facility] 10-10-2022 09:20-0400 Systolic blood pressure 123 mm[Hg] Treatment Wstr Work Phone: [facility] 10-09-2022 09:07-0400 Body temperature 98.2 [degF] Chantal Ayers DO Work Phone: [facility] [facility] 10-09-2022 09:07-0400 Body weight 65.77 kg Chantal Caputoi DO Work Phone: [facility] 10-09-2022 09:07-0400 Diastolic blood pressure 75 mm[Hg] Chantal Ayers DO Work Phone: [facility] 10-09-2022 09:07-0400 Heart rate 89 /min Chantal Ayers DO Work Phone: [facility] 10-09-2022 09:07-0400 Systolic blood pressure 115 mm[Hg] Chantal Ayers DO Work Phone: [facility] 10-09-2022 08:57-0400 Body weight 65.77 kg Lab/Port Wstr Work Phone: [facility] 10-03-2022 09:40-0400 Body temperature 98.29 [degF] Injection Wstr Work Phone: [facility] 10-03-2022 09:40-0400 Body weight 65.77 kg Injection Wstr Work Phone: [facility] 10-03-2022 09:40-0400 Diastolic blood pressure 65 mm[Hg] Injection Wstr Work Phone: [facility] 10-03-2022 09:40-0400 Heart rate 82 /min Injection Wstr Work Phone: [facility] 10-03-2022 09:40-0400 Systolic blood pressure 112 mm[Hg] Injection Wstr Work Phone: [facility] 09-19-2022 14:00-0400 Body temperature 98.91 [degF] Treatment Wstr Work Phone: [facility] 09-19-2022 14:00-0400 Diastolic blood pressure 70 mm[Hg] Treatment Wstr Work Phone: [facility] 09-19-2022 14:00-0400 Heart rate 82 /min Treatment Wstr Work Phone: [facility] 09-19-2022 14:00-0400 Respiratory rate 18 /min Treatment Wstr Work Phone: [facility] 09-19-2022 14:00-0400 SaO2% (BldA) [Mass fraction] 100 % Treatment Wstr Work Phone: [facility] 09-19-2022 14:00-0400 Systolic blood pressure 126 mm[Hg] Treatment Wstr Work Phone: [facility] 09-18-2022 08:43-0400 Body weight 66.22 kg Lab/Port Wstr Work Phone: [facility] 08-29-2022 14:59-0500 Body temperature 97.5 [degF] Treatment Wstr Work Phone: [facility] 08-29-2022 14:59-0500 Diastolic blood pressure 65 mm[Hg] Treatment Wstr Work Phone: [facility] 08-29-2022 14:59-0500 Heart rate 74 /min Treatment Wstr Work Phone: [facility] 08-29-2022 14:59-0500 Respiratory rate 16 /min Treatment Wstr Work Phone: [facility] 08-29-2022 14:59-0500 SaO2% (BldA) [Mass fraction] 100 % Treatment Wstr Work Phone: [facility] 08-29-2022 14:59-0500 Systolic blood pressure 122 mm[Hg] Treatment Wstr Work Phone: [facility] 08-24-2022 08:32-0500 Body temperature 97.59 [degF] Chantal Masci DO Work Phone: [facility] 08-24-2022 08:32-0500 Body weight 65.32 kg Chantal Masci DO Work Phone: [facility] 08-24-2022 08:32-0500 Diastolic blood pressure 73 mm[Hg] Chantla Masci DO Work Phone: [facility] 08-24-2022 08:32-0500 Heart rate 93 /min Chantal Masci DO Work Phone: [facility] 08-24-2022 08:32-0500 SaO2% (BldA) [Mass fraction] 98 % Chantal Masci DO Work Phone: [facility] 08-24-2022 08:32-0500 Systolic blood pressure 122 mm[Hg] Chantal Caputoi DO Work Phone: [facility] 08-24-2022 08:26-0500 Body weight 65.55 kg Lab/Port Wstr Work Phone: [facility] 08-08-2022 15:00-0500 Body temperature 97.3 [degF] Treatment Wstr Work Phone: [facility] 08-08-2022 15:00-0500 Diastolic blood pressure 68 mm[Hg] Treatment Wstr Work Phone: [facility] 08-08-2022 15:00-0500 Heart rate 85 /min Treatment Wstr Work Phone: [facility] 08-08-2022 15:00-0500 Respiratory rate 20 /min Treatment Wstr Work Phone: [facility] 08-08-2022 15:00-0500 SaO2% (BldA) [Mass fraction] 100 % Treatment Wstr Work Phone: [facility] 08-08-2022 15:00-0500 Systolic blood pressure 115 mm[Hg] Treatment Wstr Work Phone: [facility] 08-03-2022 08:39-0500 Body temperature 97.39 [degF] Treatment Wstr Work Phone: [facility] 08-03-2022 08:39-0500 Diastolic blood pressure 66 mm[Hg] Treatment Wstr Work Phone: [facility] 08-03-2022 08:39-0500 Heart rate 80 /min Treatment Wstr Work Phone: [facility] 08-03-2022 08:39-0500 Respiratory rate 16 /min Treatment Wstr Work Phone: [facility] 08-03-2022 08:39-0500 SaO2% (BldA) [Mass fraction] 100 % Treatment Wstr Work Phone: [facility] 08-03-2022 08:39-0500 Systolic blood pressure 105 mm[Hg] Treatment Wstr Work Phone: [facility] 08-01-2022 11:24-0500 Body temperature 98.2 [degF] Chantal aPtitoi DO Work Phone: [facility] 08-01-2022 11:24-0500 Body weight 65.77 kg Chantal Patitoi DO Work Phone: [facility] 08-01-2022 11:24-0500 Diastolic blood pressure 78 mm[Hg] Chantal Patitoi DO Work Phone: [facility] 08-01-2022 11:24-0500 Heart rate 87 /min Chantal Caputoi DO Work Phone: [facility] 08-01-2022 11:24-0500 SaO2% (BldA) [Mass fraction] 98 % Chantal Caputoi DO Work Phone: [facility] 08-01-2022 11:24-0500 Systolic blood pressure 114 mm[Hg] Chantal Patitoi DO Work Phone: [facility] 08-01-2022 11:15-0500 Body weight 65.77 kg Lab/Port Wstr Work Phone: [facility] 07-06-2022 11:27-0500 Body temperature 98.01 [degF] Lance Clement MD Work Phone: [facility] 07-06-2022 11:27-0500 Body weight 64.41 kg Lance Clement MD Work Phone: [facility] 07-06-2022 11:27-0500 Diastolic blood pressure 74 mm[Hg] Lance Clement MD Work Phone: [facility] 07-06-2022 11:27-0500 Heart rate 87 /min Lance Clement MD Work Phone: [facility] 07-06-2022 11:27-0500 Systolic blood pressure 127 mm[Hg] Lance Clement MD Work Phone: [facility] 07-06-2022 11:20-0500 Body weight 64.41 kg Lab/Port Wstr Work Phone: [facility] 06-26-2022 16:14-0500 Body temperature 102.79 [degF] [facility] 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 Work Phone: [facility] 06-26-2022 16:14-0500 Body weight 65.32 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 Work Phone: [facility] 06-26-2022 16:14-0500 Diastolic blood pressure 72 mm[Hg] [facility] [employer]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 Work Phone: [facility] 06-26-2022 16:14-0500 Heart rate 124 /min [facility] [employer]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 Work Phone: [facility] 06-26-2022 16:14-0500 Respiratory rate 20 /min [facility] [facility]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 Work Phone: [facility] 06-26-2022 16:14-0500 SaO2% (BldA) [Mass fraction] 98 % [facility] [employer]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 Work Phone: [facility] 06-26-2022 16:14-0500 Systolic blood pressure 122 mm[Hg] [facility] [employer]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 Work Phone: [facility] 06-16-2022 13:58-0500 Body temperature 98.8 [degF] Bradford García MD Work Phone: [facility] 06-16-2022 13:58-0500 Body weight 65.5 kg Bradford García MD Work Phone: [facility] 06-16-2022 13:58-0500 Diastolic blood pressure 70 mm[Hg] Bradford García MD Work Phone: [facility] 06-16-2022 13:58-0500 Heart rate 79 /min Bradford García MD Work Phone: [facility] 06-16-2022 13:58-0500 SaO2% (BldA) [Mass fraction] 100 % Bradford García MD Work Phone: [facility] 06-16-2022 13:58-0500 Systolic blood pressure 120 mm[Hg] Bradford García MD Work Phone: [facility] 06-16-2022 13:50-0500 Body temperature 98.8 [degF] Paulina Chaka DO Work Phone: [facility] 06-16-2022 13:50-0500 Body weight 65.5 kg Paulina Chaka DO Work Phone: [facility] 06-16-2022 13:50-0500 Diastolic blood pressure 70 mm[Hg] Paulina Chaka DO Work Phone: [facility] 06-16-2022 13:50-0500 Heart rate 79 /min Paulina Chaka DO Work Phone: [facility] 06-16-2022 13:50-0500 SaO2% (BldA) [Mass fraction] 99 % Paulina Chaka DO Work Phone: [facility] 06-16-2022 13:50-0500 Systolic blood pressure 120 mm[Hg] Paulina Chaka DO Work Phone: [facility] 06-13-2022 11:00-0500 Body temperature 98.4 [degF] Treatment Wstr Work Phone: [facility] 06-13-2022 11:00-0500 Diastolic blood pressure 66 mm[Hg] Treatment Wstr Work Phone: [facility] 06-13-2022 11:00-0500 Heart rate 78 /min Treatment Wstr Work Phone: [facility] 06-13-2022 11:00-0500 Systolic blood pressure 118 mm[Hg] Treatment Wstr Work Phone: [facility] 06-09-2022 12:04-0500 Body temperature 98.91 [degF] Injection Wstr Work Phone: [facility] 06-09-2022 12:04-0500 Body weight 65.77 kg Injection Wstr Work Phone: [facility] 06-09-2022 12:04-0500 Diastolic blood pressure 75 mm[Hg] Injection Wstr Work Phone: [facility] 06-09-2022 12:04-0500 Heart rate 80 /min Injection Wstr Work Phone: [facility] 06-09-2022 12:04-0500 Systolic blood pressure 116 mm[Hg] Injection Wstr Work Phone: [facility] 05-22-2022 10:33-0500 Body temperature 98.8 [degF] Chantal Masci DO Work Phone: [facility] 05-22-2022 10:33-0500 Body weight 64.64 kg Chantal Masci DO Work Phone: [facility] 05-22-2022 10:33-0500 Diastolic blood pressure 68 mm[Hg] Chantal Masci DO Work Phone: [facility] 05-22-2022 10:33-0500 Heart rate 77 /min Chantal Masci DO Work Phone: [facility] 05-22-2022 10:33-0500 Systolic blood pressure 112 mm[Hg] Chantal Masci DO Work Phone: [facility] 05-09-2022 14:03-0400 Body temperature 98.8 [degF] Injection Wstr Work Phone: [facility] 05-09-2022 14:03-0400 Body weight 66.91 kg Injection Wstr Work Phone: [facility] 05-09-2022 14:03-0400 Diastolic blood pressure 69 mm[Hg] Injection Wstr Work Phone: [facility] 05-09-2022 14:03-0400 Heart rate 82 /min Injection Wstr Work Phone: [facility] 05-09-2022 14:03-0400 Systolic blood pressure 118 mm[Hg] Injection Wstr Work Phone: [facility] 05-03-2022 13:07-0400 Body temperature 98.8 [degF] Praful Melgar MD, MD Work Phone: [facility] 05-03-2022 13:07-0400 Diastolic blood pressure 74 mm[Hg] Praful Melgar MD, MD Work Phone: [facility] 05-03-2022 13:07-0400 Heart rate 90 /min Praful Melgar MD, MD Work Phone: [facility] 05-03-2022 13:07-0400 Respiratory rate 16 /min Praful Melgar MD, MD Work Phone: [facility] 05-03-2022 13:07-0400 SaO2% (BldA) [Mass fraction] 100 % Praful Melgar MD, MD Work Phone: [facility] 05-03-2022 13:07-0400 Systolic blood pressure 115 mm[Hg] Praful Melgar MD, MD Work Phone: [facility] 04-27-2022 13:43-0400 Body temperature 98.71 [degF] Krissy Spivey APRN.CNP Work Phone: [facility] 04-13-2022 09:20-0400 Body height 172.[address] Braden Torres Work Phone: [facility] Work Phone: 04-13-2022 09:20-0400 Body mass index (BMI) [Ratio] 22.4 kg/m2 Dr. Braden Torres Work Phone: [facility] Work Phone: 04-13-2022 09:20-0400 Body weight 66.[address] Braden Torres Work Phone: [facility] Work Phone: 04-13-2022 09:20-0400 Diastolic blood pressure 66 mm[Hg] Dr. Braden Torres Work Phone: [facility] Work Phone: 04-13-2022 09:20-0400 Systolic blood pressure 121 mm[Hg] Dr. Braden Torres Work Phone: [facility] Work Phone: 04-11-2022 14:15-0400 Body temperature 98.71 [degF] Injection Wstr Work Phone: [facility] 04-11-2022 14:15-0400 Body weight 68.04 kg Injection Wstr Work Phone: [facility] 04-11-2022 14:15-0400 Diastolic blood pressure 67 mm[Hg] Injection Wstr Work Phone: [facility] 04-11-2022 14:15-0400 Heart rate 89 /min Injection Wstr Work Phone: [facility] 04-11-2022 14:15-0400 Systolic blood pressure 107 mm[Hg] Injection Wstr Work Phone: [facility] 03-29-2022 10:36-0400 Body temperature 98.91 [degF] Chantal Masci DO Work Phone: [facility] 03-29-2022 10:36-0400 Body weight 66.68 kg Chantal Masci DO Work Phone: [facility] 03-29-2022 10:36-0400 Diastolic blood pressure 71 mm[Hg] Chantal Masci DO Work Phone: [facility] 03-29-2022 10:36-0400 Heart rate 100 /min Chantal Masci DO Work Phone: [facility] 03-29-2022 10:36-0400 SaO2% (BldA) [Mass fraction] 99 % Chantal Masci DO Work Phone: [facility] 03-29-2022 10:36-0400 Systolic blood pressure 106 mm[Hg] Chantal Masci DO Work Phone: [facility] 03-24-2022 13:47-0400 Body height 172.7 cm [facility] 1 Work Phone: [facility] 03-24-2022 13:47-0400 Body temperature 98.8 [degF] Pacc 1 Work Phone: [facility] 03-24-2022 13:47-0400 Body weight 66.22 kg Pacc 1 Work Phone: [facility] 03-24-2022 13:47-0400 Diastolic blood pressure 70 mm[Hg] Pacc 1 Work Phone: [facility] 03-24-2022 13:47-0400 Heart rate 97 /min Pacc 1 Work Phone: [facility] 03-24-2022 13:47-0400 Respiratory rate 16 /min Pacc 1 Work Phone: [facility] 03-24-2022 13:47-0400 SaO2% (BldA) [Mass fraction] 98 % Pacc 1 Work Phone: [facility] 03-24-2022 13:47-0400 Systolic blood pressure 98 mm[Hg] Pacc 1 Work Phone: [facility] 03-23-2022 14:52-0400 Body height 172.7 cm Uzair Dos Santos MD Work Phone: [facility] 03-23-2022 14:52-0400 Body temperature 98.01 [degF] Uzair Dos Santos MD Work Phone: [facility] 03-23-2022 14:52-0400 Body weight 66.13 kg Uzair Dos Santos MD Work Phone: [facility] 03-23-2022 14:52-0400 Diastolic blood pressure 73 mm[Hg] Uzair Dos Santos MD Work Phone: [facility] 03-23-2022 14:52-0400 Heart rate 98 /min Uzair Dos Santos MD Work Phone: [facility] 03-23-2022 14:52-0400 SaO2% (BldA) [Mass fraction] 100 % Uzair Dos Santos MD Work Phone: [facility] 03-23-2022 14:52-0400 Systolic blood pressure 109 mm[Hg] Uzair Dos Santos MD Work Phone: [facility] 03-15-2022 15:50-0400 Body temperature 98.71 [degF] Injection Wstr Work Phone: [facility] 03-14-2022 10:33-0400 Body temperature 97.3 [degF] Treatment Wstr Work Phone: [facility] 03-14-2022 10:33-0400 Body weight 67.13 kg Treatment Wstr Work Phone: [facility] 03-14-2022 10:33-0400 Diastolic blood pressure 65 mm[Hg] Treatment Wstr Work Phone: [facility] 03-14-2022 10:33-0400 Heart rate 95 /min Treatment Wstr Work Phone: [facility] 03-14-2022 10:33-0400 Respiratory rate 18 /min Treatment Wstr Work Phone: [facility] 03-14-2022 10:33-0400 Systolic blood pressure 109 mm[Hg] Treatment Wstr Work Phone: [facility] 03-09-2022 09:36-0400 Body temperature 98.4 [degF] Chantal Masci DO Work Phone: [facility] 03-09-2022 09:36-0400 Body weight 67.36 kg Chantal Masci DO Work Phone: [facility] 03-09-2022 09:36-0400 Diastolic blood pressure 70 mm[Hg] Chantal Masci DO Work Phone: [facility] 03-09-2022 09:36-0400 Heart rate 96 /min Chantal Masci DO Work Phone: [facility] 03-09-2022 09:36-0400 SaO2% (BldA) [Mass fraction] 99 % Chantal Masci DO Work Phone: [facility] 03-09-2022 09:36-0400 Systolic blood pressure 114 mm[Hg] Chantal Masci DO Work Phone: [facility] 03-09-2022 09:30-0400 Body weight 67.36 kg Lab/Port Wstr Work Phone: [facility] 03-02-2022 12:58-0400 Body height 172.7 cm Edith Franco MD Work Phone: [facility] 03-02-2022 12:58-0400 Body temperature 98.91 [degF] Edith Franco MD Work Phone: [facility] 03-02-2022 12:58-0400 Body weight 66.41 kg Edith Franco MD Work Phone: [facility] 03-02-2022 12:58-0400 Diastolic blood pressure 72 mm[Hg] Edith Franco MD Work Phone: [facility] 03-02-2022 12:58-0400 Heart rate 107 /min Edith Franco MD Work Phone: [facility] 03-02-2022 12:58-0400 SaO2% (BldA) [Mass fraction] 100 % Edith Franco MD Work Phone: [facility] 03-02-2022 12:58-0400 Systolic blood pressure 102 mm[Hg] Edtih Franco MD Work Phone: [facility] 02-20-2022 08:43-0400 Body temperature 97.3 [degF] Treatment Wstr Work Phone: [facility] 02-20-2022 08:43-0400 Diastolic blood pressure 52 mm[Hg] Treatment Wstr Work Phone: [facility] 02-20-2022 08:43-0400 Heart rate 91 /min Treatment Wstr Work Phone: [facility] 02-20-2022 08:43-0400 Systolic blood pressure 121 mm[Hg] Treatment Wstr Work Phone: [facility] 02-16-2022 11:38-0400 Body temperature 98.8 [degF] Lance Clement MD Work Phone: [facility] 02-16-2022 11:38-0400 Body weight 67.04 kg Lance Clement MD Work Phone: [facility] 02-16-2022 11:38-0400 Diastolic blood pressure 80 mm[Hg] Lance Clement MD Work Phone: [facility] 02-16-2022 11:38-0400 Heart rate 98 /min Lance Clement MD Work Phone: [facility] 02-16-2022 11:38-0400 SaO2% (BldA) [Mass fraction] 97 % Lance Clement MD Work Phone: [facility] 02-16-2022 11:38-0400 Systolic blood pressure 133 mm[Hg] Lance Clement MD Work Phone: [facility] 02-16-2022 11:00-0400 Body weight 66.91 kg Lab/Port Wstr Work Phone: [facility] 02-08-2022 09:18-0400 Body temperature 98.2 [degF] Treatment Wstr Work Phone: [facility] 02-08-2022 09:18-0400 Diastolic blood pressure 58 mm[Hg] Treatment Wstr Work Phone: [facility] 02-08-2022 09:18-0400 Heart rate 85 /min Treatment Wstr Work Phone: [facility] 02-08-2022 09:18-0400 Respiratory rate 20 /min Treatment Wstr Work Phone: [facility] 02-08-2022 09:18-0400 Systolic blood pressure 120 mm[Hg] Treatment Wstr Work Phone: [facility] 01-27-2022 09:34-0400 Body temperature 98.01 [degF] Treatment Wstr Work Phone: [facility] 01-27-2022 09:34-0400 Diastolic blood pressure 68 mm[Hg] Treatment Wstr Work Phone: [facility] 01-27-2022 09:34-0400 Heart rate 95 /min Treatment Wstr Work Phone: [facility] 01-27-2022 09:34-0400 Systolic blood pressure 101 mm[Hg] Treatment Wstr Work Phone: [facility] 01-26-2022 08:45-0400 Body temperature 98.1 [degF] Chantal Masci DO Work Phone: [facility] 01-26-2022 08:45-0400 Body weight 66.45 kg Chantal Masci DO Work Phone: [facility] 01-26-2022 08:45-0400 Diastolic blood pressure 66 mm[Hg] Chantal Masci DO Work Phone: [facility] 01-26-2022 08:45-0400 Heart rate 101 /min Chantal Masci DO Work Phone: [facility] 01-26-2022 08:45-0400 SaO2% (BldA) [Mass fraction] 97 % Chantal Masci DO Work Phone: [facility] 01-26-2022 08:45-0400 Systolic blood pressure 109 mm[Hg] Chantal Masci DO Work Phone: [facility] 01-06-2022 10:12-0400 Body temperature 98.1 [degF] Treatment Wstr Work Phone: [facility] 01-06-2022 10:12-0400 Diastolic blood pressure 67 mm[Hg] Treatment Wstr Work Phone: [facility] 01-06-2022 10:12-0400 Heart rate 87 /min Treatment Wstr Work Phone: [facility] 01-06-2022 10:12-0400 Systolic blood pressure 122 mm[Hg] Treatment Wstr Work Phone: [facility] 12-16-2021 08:04-0400 Body temperature 96.8 [degF] Treatment Wstr Work Phone: [facility] 12-16-2021 08:04-0400 Diastolic blood pressure 49 mm[Hg] Treatment Wstr Work Phone: [facility] 12-16-2021 08:04-0400 Heart rate 84 /min Treatment Wstr Work Phone: [facility] 12-16-2021 08:04-0400 Systolic blood pressure 123 mm[Hg] Treatment Wstr Work Phone: [facility] 12-14-2021 08:19-0400 Body weight 67.13 kg Lab/Port Wstr Work Phone: [facility] 12-09-2021 11:22-0400 Body temperature 98.01 [degF] Injection Wstr Work Phone: [facility] 12-09-2021 11:22-0400 Body weight 66.68 kg Injection Wstr Work Phone: [facility] 12-09-2021 11:22-0400 Diastolic blood pressure 84 mm[Hg] Injection Wstr Work Phone: [facility] 12-09-2021 11:22-0400 Systolic blood pressure 127 mm[Hg] Injection Wstr Work Phone: [facility] 12-07-2021 13:40-0400 Body temperature 97.59 [degF] Praful Melgar MD, MD Work Phone: [facility] 12-07-2021 13:40-0400 Body weight 66 kg Praful Melgar MD, MD Work Phone: [facility] 12-07-2021 13:40-0400 Diastolic blood pressure 79 mm[Hg] Praful Melgar MD, MD Work Phone: [facility] 12-07-2021 13:40-0400 Heart rate 63 /min Praful Melgar MD, MD Work Phone: [facility] 12-07-2021 13:40-0400 Respiratory rate 15 /min Praful Melgar MD, MD Work Phone: [facility] 12-07-2021 13:40-0400 SaO2% (BldA) [Mass fraction] 99 % Praful Melgar MD, MD Work Phone: [facility] 12-07-2021 13:40-0400 Systolic blood pressure 129 mm[Hg] Praful Melgar MD, MD Work Phone: [facility] 11-24-2021 09:00-0400 Body temperature 98.4 [degF] Treatment Wstr Work Phone: [facility] 11-24-2021 09:00-0400 Diastolic blood pressure 74 mm[Hg] Treatment Wstr Work Phone: [facility] 11-24-2021 09:00-0400 Heart rate 80 /min Treatment Wstr Work Phone: [facility] 11-24-2021 09:00-0400 Respiratory rate 16 /min Treatment Wstr Work Phone: [facility] 11-24-2021 09:00-0400 SaO2% (BldA) [Mass fraction] 97 % Treatment Wstr Work Phone: [facility] 11-24-2021 09:00-0400 Systolic blood pressure 108 mm[Hg] Treatment Wstr Work Phone: [facility] 11-23-2021 08:44-0400 Body weight 66.68 kg Lab/Port Wstr Work Phone: [facility] 10-31-2021 08:55-0400 Body temperature 98.7 [degF] No Primary Care Physician [facility] Work Phone: 10-31-2021 08:55-0400 Diastolic blood pressure 68 mm[Hg] No Primary Care Physician [facility] Work Phone: 10-31-2021 08:55-0400 Heart rate 74 /min No Primary Care Physician [facility] Work Phone: 10-31-2021 08:55-0400 Respiratory rate 16 /min No Primary Care Physician [facility] Work Phone: 10-31-2021 08:55-0400 SaO2% (BldA) [Mass fraction] 99 % No Primary Care Physician [facility] Work Phone: 10-31-2021 08:55-0400 Systolic blood pressure 115 mm[Hg] No Primary Care Physician [facility] Work Phone: 10-31-2021 06:22-0400 Body height 172.72 cm No Primary Care Physician [facility] Work Phone: 10-31-2021 06:22-0400 Body mass index (BMI) [Ratio] 22.4 kg/m2 No Primary Care Physician [facility] Work Phone: 10-31-2021 06:22-0400 Body weight 67 kg No Primary Care Physician [facility] Work Phone: 10-28-2021 16:39-0400 Body height 172.7 cm Jam Foley MD Work Phone: [facility] 10-28-2021 16:39-0400 Body weight 65.77 kg Jam Foley MD Work Phone: [facility] 10-25-2021 12:01-0400 Body temperature 98.29 [degF] Chantal Masci DO Work Phone: [facility] 10-25-2021 12:01-0400 Body weight 67.59 kg Chantal Masci DO Work Phone: [facility] 10-25-2021 12:01-0400 Diastolic blood pressure 73 mm[Hg] Chantal Masci DO Work Phone: [facility] 10-25-2021 12:01-0400 Heart rate 79 /min Chantal Masci DO Work Phone: [facility] 10-25-2021 12:01-0400 Systolic blood pressure 125 mm[Hg] Chantal Masci DO Work Phone: [facility] 10-21-2021 13:53-0400 Body height 172.7 cm Paulina Robbente DO Work Phone: [facility] 10-21-2021 13:53-0400 Body weight 65.77 kg Paulina Robbente DO Work Phone: [facility] 10-19-2021 13:48-0400 Body height 175 cm Chantal Caputoi DO Work Phone: [facility] 10-19-2021 13:48-0400 Body temperature 98.91 [degF] Chantal Caputoi DO Work Phone: [facility] 10-19-2021 13:48-0400 Body weight 66.22 kg Chantal Caputoi DO Work Phone: [facility] 10-19-2021 13:48-0400 Diastolic blood pressure 73 mm[Hg] Chantal Caputoi DO Work Phone: [facility] 10-19-2021 13:48-0400 Heart rate 80 /min Chantal Cauptoi DO Work Phone: [facility] 10-19-2021 13:48-0400 SaO2% (BldA) [Mass fraction] 97 % Chantal [employer] Work Phone: [facility] 10-19-2021 13:48-0400 Systolic blood pressure 127 mm[Hg] Chantal Caputoi [employer] Work Phone: [facility] 10-17-2021 15:28-0400 Body mass index (BMI) [Ratio] 22.5 kg/m2 No Primary Care Physician [facility] Work Phone: 10-17-2021 15:28-0400 Body temperature 98.6 [degF] No Primary Care Physician [facility] Work Phone: 10-17-2021 15:28-0400 Body weight 67.16 kg No Primary Care Physician [facility] Work Phone: 10-17-2021 15:28-0400 Diastolic blood pressure 77 mm[Hg] No Primary Care Physician [facility] Work Phone: 10-17-2021 15:28-0400 Heart rate 83 /min No Primary Care Physician [facility] Work Phone: 10-17-2021 15:28-0400 Respiratory rate 15 /min No Primary Care Physician [facility] Work Phone: 10-17-2021 15:28-0400 SaO2% (BldA) [Mass fraction] 97 % No Primary Care Physician [facility] Work Phone: 10-17-2021 15:28-0400 Systolic blood pressure 121 mm[Hg] No Primary Care Physician [facility] Work Phone: 10-13-2021 09:20-0400 Body mass index (BMI) [Ratio] 22 kg/m2 No Primary Care Physician [facility] Work Phone: 10-13-2021 09:20-0400 Body temperature 97.5 [degF] No Primary Care Physician [facility] Work Phone: 10-13-2021 09:20-0400 Body weight 65.77 kg No Primary Care Physician [facility] Work Phone: 10-13-2021 09:20-0400 Diastolic blood pressure 70 mm[Hg] No Primary Care Physician [facility] Work Phone: 10-13-2021 09:20-0400 Heart rate 83 /min No Primary Care Physician [facility] Work Phone: 10-13-2021 09:20-0400 Respiratory rate 16 /min No Primary Care Physician [facility] Work Phone: 10-13-2021 09:20-0400 SaO2% (BldA) [Mass fraction] 100 % No Primary Care Physician [facility] Work Phone: 10-13-2021 09:20-0400 Systolic blood pressure 117 mm[Hg] No Primary Care Physician [facility] Work Phone: 10-07-2021 10:00-0400 Body height 172.72 cm No Primary Care Physician [facility] Work Phone: 10-07-2021 10:00-0400 Body mass index (BMI) [Ratio] 22 kg/m2 No Primary Care Physician [facility] Work Phone: 10-07-2021 10:00-0400 Body weight 65.77 kg No Primary Care Physician [facility] Work Phone: 10-07-2021 10:00-0400 Diastolic blood pressure 82 mm[Hg] No Primary Care Physician [facility] Work Phone: 10-07-2021 10:00-0400 Respiratory rate 18 /min No Primary Care Physician [facility] Work Phone: 10-07-2021 10:00-0400 Systolic blood pressure 146 mm[Hg] No Primary Care Physician [facility] Work Phone: 03-17-2021 10:56-0400 Diastolic blood pressure 80 mm[Hg] No PCP None [facility] Work Phone: 03-17-2021 10:56-0400 Systolic blood pressure 110 mm[Hg] No PCP None [facility] Work Phone: 03-17-2021 10:49-0400 Body height 172.72 cm No PCP None [facility] Work Phone: 03-17-2021 10:49-0400 Body mass index (BMI) [Ratio] 22.81 kg/m2 No PCP None [facility] Work Phone: 03-17-2021 10:49-0400 Body surface area Derived from formula 1.81 m2 No PCP None [facility] Work Phone: 03-17-2021 10:49-0400 Body temperature 97.1 [degF] No PCP None [facility] Work Phone: 03-17-2021 10:49-0400 Body weight 68.04 kg No PCP None [facility] Work Phone: 12-23-2018 13:44-0400 BMI (Body Mass Index) 22.97 kg/m2 Mikaela Mac RN [facility] Work Phone: 12-23-2018 13:44-0400 Body Temperature 97.6 [degF] Mikaela Mac RN [facility] Work Phone: Comment on above: Method: Temporal 12-23-2018 13:44-0400 Body weight 70.56 kg Mikaela Mac RN [facility]; [facility] Work Phone: 12-23-2018 13:44-0400 BP Diastolic 78 mm[Hg] Mikaela Mac RN [facility] Work Phone: Comment on above: Patient Position: Sitting; Cuff Location : Left Arm; Cuff Size: Standard 12-23-2018 13:44-0400 BP Systolic 118 mm[Hg] Mikaela Mac RN [facility] Work Phone: Comment on above: Patient Position: Sitting; Cuff Location : Left Arm; Cuff Size: Standard 12-23-2018 13:44-0400 BSA (Body Surface Area) 1.86 m2 Mikaela Mac RN [facility] Work Phone: 12-23-2018 13:44-0400 Height 175.26 cm Mikaela Mac RN [facility] Work Phone: 12-23-2018 13:44-0400 Pulse (Heart Rate) 80 /min Mikaela Mac RN [facility] Work Phone: Comment on above: Pattern: Regular 12-23-2018 13:44-0400 Pulse Oximetry 98 % Braden Torres [facility] Work Phone: Comment on above: Room air 12-23-2018 13:44-0400 Respiratory Rate 16 /min Mikaela Mac RN [facility] Work Phone: Comment on above: Pattern: Unlabored 12-23-2018 13:44-0400 SaO2% (BldA) [Mass fraction] 98 % Mikaela Mac RN [facility]; [facility] Work Phone: Comment on above: Room air 12-23-2018 13:44-0400 Weight 70.56 kg Braden Torres [facility] Work Phone: 01-02-2014 07:56-0400 BMI (Body Mass Index) 22.97 kg/m2 Braden Melissa [facility] Work Phone: 01-02-2014 07:56-0400 Body Temperature 98 [degF] Braden Torres [facility] Work Phone: Comment on above: Method: Oral 01-02-2014 07:56-0400 Body weight 70.56 kg Braden Torres DO Work Phone: [facility]; [facility] Work Phone: 01-02-2014 07:56-0400 BP Diastolic 72 mm[Hg] Braden Torres [facility] Work Phone: Comment on above: Patient Position: Sitting; Cuff Location : Left Arm; Cuff Size: Standard 01-02-2014 07:56-0400 BP Systolic 110 mm[Hg] Braden Torres [facility] Work Phone: Comment on above: Patient Position: Sitting; Cuff Location : Left Arm; Cuff Size: Standard 01-02-2014 07:56-0400 BSA (Body Surface Area) 1.86 m2 Braden Torres [facility] Work Phone: 01-02-2014 07:56-0400 Height 175.26 cm Braden Torres [facility] Work Phone: 01-02-2014 07:56-0400 Pulse (Heart Rate) 68 /min Braden Torres [facility] Work Phone: Comment on above: Pattern: Regular 01-02-2014 07:56-0400 Pulse Oximetry 98 % Braden Torres [facility] Work Phone: Comment on above: Room air 01-02-2014 07:56-0400 Respiratory Rate 16 /min Braden Torres [facility] Work Phone: 01-02-2014 07:56-0400 SaO2% (BldA) [Mass fraction] 98 % Braden Torres DO Work Phone: [facility]; [facility] Work Phone: Comment on above: Room air 01-02-2014 07:56-0400 Weight 70.56 kg Braden Torres [facility] Work Phone: 10-03-2013 08:11-0400 BMI (Body Mass Index) 23.39 kg/m2 Max Kaiser RN [facility] Work Phone: 10-03-2013 08:11-0400 Body Temperature 98.1 [degF] Max Kaiser [facility] Work Phone: Comment on above: Method: Oral 10-03-2013 [id number] Body weight 71.84 kg Max Kaiser RN [facility]; [facility] Work Phone: 10-03-2013 08:11-0400 BP Diastolic 80 mm[Hg] Max Kaiser RN [facility] Work Phone: Comment on above: Patient Position: Sitting; Cuff Location : Left Arm; Cuff Size: Large 10-03-2013 08:11-0400 BP Systolic 120 mm[Hg] Max Kaiser RN [facility] Work Phone: Comment on above: Patient Position: Sitting; Cuff Location : Left Arm; Cuff Size: Large 10-03-2013 08:11-0400 BSA (Body Surface Area) 1.87 m2 Max Kaiser RN [facility] Work Phone: 10-03-2013 [id number] Height 175.26 cm Max Kaiser RN [facility] Work Phone: 10-03-2013 08:11-0400 Pulse (Heart Rate) 68 /min Max Kaiser RN [facility] Work Phone: Comment on above: Pattern: Regular 10-03-2013 08:11-0400 Pulse Oximetry 98 % Braden Torres [facility] Work Phone: Comment on above: Room air 10-03-2013 08:11-0400 Respiratory Rate 20 /min Max Kaiser [facility] Work Phone: Comment on above: Pattern: Unlabored 10-03-2013 08:11-0400 SaO2% (BldA) [Mass fraction] 98 % Max Kaiser RN [facility]; [facility] Work Phone: Comment on above: Room air 10-03-2013 08:11-0400 Weight 71.84 kg Braden Torres [facility] Work Phone: 02-11-2013 11:03-0400 BMI (Body Mass Index) 23.92 kg/m2 Braden Torres [facility] Work Phone: 02-11-2013 11:03-0400 Body Temperature 98 [degF] Braden Torres [facility] Work Phone: Comment on above: Method: Oral 02-11-2013 11:03-0400 Body weight 73.48 kg Braden Torres DO Work Phone: [facility]; [facility] Work Phone: 02-11-2013 11:03-0400 BP Diastolic 70 mm[Hg] Braden Torres [facility] Work Phone: Comment on above: Patient Position: Sitting; Cuff Location : Left Arm; Cuff Size: Standard 02-11-2013 11:03-0400 BP Systolic 118 mm[Hg] Braden Torres [facility] Work Phone: Comment on above: Patient Position: Sitting; Cuff Location : Left Arm; Cuff Size: Standard 02-11-2013 11:03-0400 BSA (Body Surface Area) 1.89 m2 Braden Torres [facility] Work Phone: 02-11-2013 11:03-0400 Height 175.26 cm Braden Torres [facility] Work Phone: 02-11-2013 11:03-0400 Pulse (Heart Rate) 80 /min Braden Torres [facility] Work Phone: Comment on above: Pattern: Regular 02-11-2013 11:03-0400 Pulse Oximetry 98 % Braden Torres [facility] Work Phone: Comment on above: Room air 02-11-2013 11:03-0400 Respiratory Rate 17 /min Braden Torres [facility] Work Phone: 02-11-2013 11:03-0400 SaO2% (BldA) [Mass fraction] 98 % Braden Torres DO Work Phone: [facility]; [facility] Work Phone: Comment on above: Room air 02-11-2013 11:03-0400 Weight 73.48 kg Braden Torres [facility] Work Phone: 02-07-2013 13:06-0400 BMI (Body Mass Index) 24.38 kg/m2 Max Kaiser RN [facility] Work Phone: 02-07-2013 13:06-0400 Body Temperature 98.1 [degF] Max Kaiser [facility] Work Phone: Comment on above: Method: Oral 02-07-2013 13:06-0400 Body weight 74.9 kg Max Kaiser RN [facility]; [facility] Work Phone: 02-07-2013 13:06-0400 BP Diastolic 62 mm[Hg] Max Kaiser RN [facility] Work Phone: Comment on above: Patient Position: Sitting; Cuff Location : Left Arm; Cuff Size: Large 02-07-2013 13:06-0400 BP Systolic 122 mm[Hg] Max Kaiser RN [facility] Work Phone: Comment on above: Patient Position: Sitting; Cuff Location : Left Arm; Cuff Size: Large 02-07-2013 13:06-0400 BSA (Body Surface Area) 1.9 m2 Max Kaiser RN [facility] Work Phone: 02-07-2013 13:06-0400 Height 175.26 cm Max Kaiser RN [facility] Work Phone: 02-07-2013 13:06-0400 Pulse (Heart Rate) 60 /min Max Kaiser RN [facility] Work Phone: Comment on above: Pattern: Regular 02-07-2013 13:06-0400 Respiratory Rate 16 /min Max Kaiser RN [facility] Work Phone: Comment on above: Pattern: Unlabored 02-07-2013 13:06-0400 Weight 74.9 kg Braden Torres [facility] Work Phone: 01-28-2013 13:16-0400 BMI (Body Mass Index) 21.76 kg/m2 Braden Torres [facility] Work Phone: 01-28-2013 13:16-0400 Body Temperature 98.8 [degF] Braden Torres [facility] Work Phone: Comment on above: Method: Oral 01-28-2013 13:16-0400 Body weight 66.85 kg Braden Torres DO Work Phone: [facility]; [facility] Work Phone: 01-28-2013 13:16-0400 BP Diastolic 68 mm[Hg] Braden Torres [facility] Work Phone: Comment on above: Patient Position: Sitting; Cuff Location : Left Arm; Cuff Size: Standard 01-28-2013 13:16-0400 BP Systolic 100 mm[Hg] Braden Torres [facility] Work Phone: Comment on above: Patient Position: Sitting; Cuff Location : Left Arm; Cuff Size: Standard 01-28-2013 13:16-0400 BSA (Body Surface Area) 1.81 m2 Braden Torres [facility] Work Phone: 01-28-2013 13:16-0400 Height 175.26 cm Braden Torres [facility] Work Phone: 01-28-2013 13:16-0400 Pulse (Heart Rate) 72 /min Braden Torres [facility] Work Phone: Comment on above: Pattern: Regular 01-28-2013 13:16-0400 Pulse Oximetry 98 % Braden Torres [facility] Work Phone: Comment on above: Room air 01-28-2013 13:16-0400 Respiratory Rate 17 /min Braden Torres [facility] Work Phone: 01-28-2013 13:16-0400 SaO2% (BldA) [Mass fraction] 98 % Braden Torres DO Work Phone: [facility]; [facility] Work Phone: Comment on above: Room air 01-28-2013 13:16-0400 Weight 66.85 kg Braden Torres [facility] Work Phone: 08-07-2012 09:04-0500 BMI (Body Mass Index) 21.76 kg/m2 Max Kaiser RN [facility] Work Phone: 08-07-2012 09:04-0500 Body weight 66.85 kg Max Kaiser RN [facility]; [facility] Work Phone: 08-07-2012 09:04-0500 BP Diastolic 62 mm[Hg] Max Kaiser RN [facility] Work Phone: Comment on above: Patient Position: Sitting; Cuff Location : Left Arm; Cuff Size: Standard 08-07-2012 09:04-0500 BP Systolic 110 mm[Hg] Max Kaiser RN [facility] Work Phone: Comment on above: Patient Position: Sitting; Cuff Location : Left Arm; Cuff Size: Standard 08-07-2012 09:04-0500 BSA (Body Surface Area) 1.81 m2 Max Kaiser RN [facility] Work Phone: 08-07-2012 09:04-0500 Height 175.26 cm Max Kaiser RN [facility] Work Phone: 08-07-2012 09:04-0500 Pulse (Heart Rate) 64 /min Max Kaiser RN [facility] Work Phone: Comment on above: Pattern: Regular 08-07-2012 09:04-0500 Respiratory Rate 18 /min Max Kaiser RN [facility] Work Phone: Comment on above: Pattern: Unlabored 08-07-2012 09:04-0500 Weight 66.85 kg Braden Torres [facility] Work Phone: 07-18-2012 07:51-0500 BMI (Body Mass Index) 21.74 kg/m2 Max Kaiser RN [facility] Work Phone: 07-18-2012 07:51-0500 Body Temperature 98.1 [degF] Max Kaiser RN [facility] Work Phone: Comment on above: Method: Oral 07-18-2012 07:51-0500 Body weight 66.79 kg Max Kaiser RN [facility]; [facility] Work Phone: 07-18-2012 07:51-0500 BP Diastolic 60 mm[Hg] Max Kaiser RN [facility] Work Phone: Comment on above: Patient Position: Sitting; Cuff Location : Left Arm; Cuff Size: Standard 07-18-2012 07:51-0500 BP Systolic 104 mm[Hg] Max Kaiser RN [facility] Work Phone: Comment on above: Patient Position: Sitting; Cuff Location : Left Arm; Cuff Size: Standard 07-18-2012 07:51-0500 BSA (Body Surface Area) 1.81 m2 Max Kaiser RN [facility] Work Phone: 07-18-2012 07:51-0500 Height 175.26 cm Max Kaiser RN [facility] Work Phone: 07-18-2012 07:51-0500 Pulse (Heart Rate) 64 /min Max Kaiser RN [facility] Work Phone: Comment on above: Pattern: Regular 07-18-2012 07:51-0500 Respiratory Rate 20 /min Max Kaiser RN [facility] Work Phone: Comment on above: Pattern: Unlabored 07-18-2012 07:51-0500 Weight 66.79 kg Braden Peaceon [facility] Work Phone: 01-25-2011 13:14-0400 BMI (Body Mass Index) 22.71 kg/m2 Braden Torres [facility] Work Phone: 01-25-2011 13:14-0400 Body Temperature 99.5 [degF] Braden Torres [facility] Work Phone: Comment on above: Method: Oral 01-25-2011 13:14-0400 Body weight 69.76 kg Braden Torres DO Work Phone: [facility]; [facility] Work Phone: 01-25-2011 13:14-0400 BP Diastolic 70 mm[Hg] Braden Torres [facility] Work Phone: Comment on above: Patient Position: Sitting; Cuff Location : Left Arm; Cuff Size: Standard 01-25-2011 13:14-0400 BP Systolic 110 mm[Hg] Braden Torres [facility] Work Phone: Comment on above: Patient Position: Sitting; Cuff Location : Left Arm; Cuff Size: Standard 01-25-2011 13:14-0400 BSA (Body Surface Area) 1.85 m2 Braden Torres [facility] Work Phone: 01-25-2011 13:14-0400 Height 175.26 cm Braden Torres [facility] Work Phone: 01-25-2011 13:14-0400 Pulse (Heart Rate) 74 /min Braden Torres [facility] Work Phone: Comment on above: Pattern: Regular 01-25-2011 13:14-0400 Respiratory Rate 15 /min Braden Torres [facility] Work Phone: Comment on above: Pattern: Unlabored 01-25-2011 13:14-0400 Weight 69.76 kg Braden Torres [facility] Work Phone: 01-02-2011 11:44-0400 BMI (Body Mass Index) 22.71 kg/m2 Mikaela Mac RN [facility] Work Phone: 01-02-2011 11:44-0400 Body Temperature 97.9 [degF] Mikaela Mac RN [facility] Work Phone: Comment on above: Method: Oral 01-02-2011 11:44-0400 Body weight 69.76 kg Mikaela Mac RN [facility]; [facility] Work Phone: 01-02-2011 11:44-0400 BP Diastolic 80 mm[Hg] Mikaela Mac RN [facility] Work Phone: Comment on above: Patient Position: Sitting; Cuff Location : Left Arm; Cuff Size: Standard 01-02-2011 11:44-0400 BP Systolic 116 mm[Hg] Mikaela Mac RN [facility] Work Phone: Comment on above: Patient Position: Sitting; Cuff Location : Left Arm; Cuff Size: Standard 01-02-2011 11:44-0400 BSA (Body Surface Area) 1.85 m2 Mikaela Mac RN [facility] Work Phone: 01-02-2011 11:44-0400 Height 175.26 cm Mikaela Mac RN [facility] Work Phone: 01-02-2011 11:44-0400 Pulse (Heart Rate) 64 /min Mikaela Mac RN [facility] Work Phone: Comment on above: Pattern: Regular 01-02-2011 11:44-0400 Respiratory Rate 16 /min Mikaela Mac RN [facility] Work Phone: Comment on above: Pattern: Unlabored 01-02-2011 11:44-0400 Weight 69.76 kg Braden Torrse [facility] Work Phone: 12-20-2010 13:34-0400 BMI (Body Mass Index) 22.94 kg/m2 Braden Torres [facility] Work Phone: 12-20-2010 13:34-0400 Body Temperature 97.6 [degF] Braden Torres [facility] Work Phone: Comment on above: Method: Oral 12-20-2010 13:34-0400 Body weight 70.48 kg Braden Torres DO Work Phone: [facility]; [facility] Work Phone: 12-20-2010 13:34-0400 BP Diastolic 70 mm[Hg] Braden Torres [facility] Work Phone: Comment on above: Patient Position: Sitting; Cuff Location : Left Arm; Cuff Size: Standard 12-20-2010 13:34-0400 BP Systolic 110 mm[Hg] Braden Torres [facility] Work Phone: Comment on above: Patient Position: Sitting; Cuff Location : Left Arm; Cuff Size: Standard 12-20-2010 13:34040 BSA (Body Surface Area) 1.86 m2 Braden Torres [facility] Work Phone: 12-20-2010 [id number] Height 175.26 cm Braden Torres [facility] Work Phone: 12-20-2010 [id number] Pulse (Heart Rate) 72 /min Braden Torres [facility] Work Phone: Comment on above: Pattern: Regular 12-20-2010 13:34-0400 Respiratory Rate 16 /min Braden Torres [facility] Work Phone: Comment on above: Pattern: Unlabored 12-20-2010 13:34-0409 Weight 70.48 kg Braden Torres [facility] Work Phone: Encounters Encounter Date Encounter Type Care Provider Facility Start: 05-15-2025 End: 05-15-2025 ambulatory BRADEN TORRES Facility:[facility] Start: 05-08-2025 End: 05-08-2025 ambulatory JAM FOLEY Facility:[facility] Start: 05-06-2025 End: 05-06-2025 ambulatory RADHA STORY Facility:[facility] Start: 04-24-2025 End: 04-24-2025 ambulatory JAM FOLEY Facility:[facility] Start: 04-17-2025 End: 04-17-2025 ambulatory JAM FOLEY Facility:[facility] Start: 04-10-2025 End: 04-10-2025 ambulatory BRADEN TORRES Facility:[facility] Start: 03-19-2025 End: 03-23-2025 ambulatory Jam Foley MD Work Phone: Reproductive Endocrinology Infertility Comment on above: Next steps Start: 03-18-2025 End: 03-18-2025 ambulatory BRADEN TORRES Facility:[facility] Start: 03-18-2025 Encounter for preprocedural laboratory examination ACE RAYMOND [facility] Start: 03-18-2025 End: 03-18-2025 Patient encounter procedure Ace Raymond MD Work Phone: [facility] Comment on above: Pre-operative labora tory examination (Primary Dx); Fertility testing Start: 03-18-2025 End: 03-18-2025 Patient encounter status Ace Raymond MD Work Phone: [facility] Start: 02-26-2025 End: 02-26-2025 ambulatory BRADEN TORRES Facility:[facility] Start: 01-15-2025 End: 01-19-2025 ambulatory Jam Foley MD Work Phone: Reproductive Endocrinology Infertility Comment on above: SIS results Start: 01-13-2025 End: 03-15-2025 Follow-up encounter Rachel Khan MD Work Phone: OB/Gynecology Start: 01-13-2025 End: 01-13-2025 Patient encounter procedure Camille Luo APRN.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 Work Phone: Reproductive Endocrinology Infertility Comment on above: Encounter for fertil ity testing (Primary Dx); Pre-procedural laboratory examination Start: 01-13-2025 End: 01-13-2025 Patient encounter status Camille Luo APRN.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 Work Phone: [facility] Start: 01-13-2025 End: 01-13-2025 ambulatory BRADEN TORRES Facility:[facility] Start: 01-13-2025 Encounter for preprocedural laboratory examination CAMILLE LUO [facility] Start: 01-05-2025 End: 01-05-2025 Patient encounter procedure Cristopher Alaniz APRN.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 Work Phone: OB/Gynecology Comment on above: Encounter for gyneco logical examination (general) (routine) without abnormal findings (Primary Dx); Screening for cervical cancer; Screening for HPV (human papillomavirus); History of breast cancer Start: 01-05-2025 End: 01-05-2025 Patient encounter status Cristopher Alaniz APRN.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 Work Phone: [facility] Start: 01-05-2025 Encounter for antibo dy response examination BRADEN TORRES [facility] Start: 01-05-2025 End: 01-05-2025 ambulatory BRADEN TORRES Facility:[facility] Start: 01-05-2025 Encounter for gynecological examination (general) (routine) without abnormal findings CRISTOPHER ALANIZ [facility] Start: 11-18-2024 End: 11-19-2024 ambulatory Jam Foley MD Work Phone: Reproductive Endocrinology Infertility Comment on above: Guidance on next jesus manuel ps Start: 11-18-2024 End: 11-19-2024 Immunity to rubella by positive serology Jam Foley MD Work Phone: [facility] Start: 11-18-2024 End: 11-19-2024 Immunity to varicella by positive serology Jam Foley MD Work Phone: [facility] Start: 10-20-2024 End: 10-20-2024 ambulatory Chantal Ayers DO Work Phone: Hematology/Oncology Comment on above: Malignant 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, estrogen receptor positive (HCC) (Primary Dx); Thrombocytopenia; Elevated alkaline phosphatase level; Splenomegaly Start: 10-20-2024 End: 10-20-2024 Patient encounter procedure Chantal Ayers DO Work Phone: Hematology/Oncology Start: 09-22-2024 End: 09-22-2024 ambulatory JAM FOLEY Facility:[facility] Start: 09-22-2024 End: 09-22-2024 Patient encounter procedure Jam Foley MD Work Phone: Reproductive Endocrinology Infertility Comment on above: Female infertility ( Primary Dx) Start: 09-11-2024 End: 09-11-2024 ambulatory BRADEN TORRES Facility:[facility] Start: 09-11-2024 End: 09-11-2024 Patient encounter procedure Paulina Null DO Work Phone: [facility] Comment on above: History of breast ca ncer (Primary Dx); Breast cancer screening, high risk patient Start: 09-03-2024 End: 09-03-2024 ambulatory BRADEN TORRES Facility:[facility] Start: 09-03-2024 End: 09-03-2024 Patient encounter procedure Bradford García MD Work Phone: Plastic Surgery Comment on above: HX: breast cancer (P rimary Dx); S/P breast reconstruction; Keloid scar Start: 09-01-2024 ambulatory UNKNOWN PROVIDER Facili ty: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] Start: 08-20-2024 End: 08-20-2024 ambulatory BRADEN TORRES Facility:[facility] Start: 07-24-2024 End: 07-24-2024 ambulatory Valentina Mars LPN Work Phone: [facility] Comment on above: MRI Start: 07-24-2024 End: 07-24-2024 E-mail encounter from caregiver Valentina Mars LPN Work Phone: [facility] Start: 07-23-2024 End: 07-23-2024 Orders Only Paulina Null DO Work Phone: General Surgery Comment on above: 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) Start: 07-21-2024 End: 07-21-2024 ambulatory Chantal Ayers DO Work Phone: Hematology/Oncology Comment on above: Malignant 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, estrogen receptor positive (HCC) (Primary Dx); Thrombocytopenia (HCC); Elevated alkaline phosphatase level Start: 07-21-2024 End: 07-21-2024 Patient encounter procedure Chantal Ayers DO Work Phone: Hematology/Oncology Start: 07-17-2024 End: 07-17-2024 ambulatory Injection [facility] Work Phone: Hematology/Oncology Comment on above: Malignant 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, estrogen receptor positive (HCC) (Primary Dx) Start: 06-19-2024 End: 06-19-2024 ambulatory Injection [facility] Work Phone: Hematology/Oncology Comment on above: Malignant 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, estrogen receptor positive (HCC) (Primary Dx) Start: 05-22-2024 End: 05-22-2024 ambulatory In[facility] Work Phone: Hematology/Oncology Comment on above: Malignant 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, estrogen receptor positive (HCC) (Primary Dx) Start: 05-14-2024 End: 05-14-2024 Refill Chantal Ayers DO Work Phone: [address] [place] [address] Comment on above: Refill Request Start: 05-05-2024 End: 05-05-2024 Patient encounter procedure Radha Story APRN.[facility] Work Phone: [facility] Comment on above: Sore throat (Primary Dx); Rhinosinusitis Start: 04-24-2024 End: 04-24-2024 [facility] Work [facility] Comment on above: Malignant 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, estrogen receptor positive (HCC) (Primary Dx) Start: 03-24-2024 End: 03-24-2024 [facility] Work Phone: [facility] Comment on above: Malignant 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, estrogen receptor positive (HCC) (Primary Dx) Start: 02-26-2024 End: 02-26-2024 [facility] Work Phone: [facility] Comment on above: Malignant 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, estrogen receptor positive (HCC) (Primary Dx) Start: 02-06-2024 End: 02-06-2024 ambulatory Anabelle Stubbs MD Work Phone: Hematology/Oncology Comment on above: Malignant 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, estrogen receptor positive (HCC) (Primary Dx) Start: 02-06-2024 End: 02-06-2024 Telemedicine consultation with patient Anabelle Stubbs MD Work Phone: Hematology/Oncology Start: 01-28-2024 End: 01-28-2024 ambulatory In[facility] Work Phone: Hematology/Oncology Comment on above: Malignant 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, estrogen receptor positive (HCC) (Primary Dx) Start: 01-23-2024 E-mail encounter fro m caregiver Anabelle Stubbs MD Work Phone: Hematology/Oncology Start: 01-23-2024 Follow-up encounter Anabelle cornelius MD Work Phone: Hematology/Oncology Comment on above: follow-up estefani vernon Start: 01-14-2024 End: 01-14-2024 ambulatory Steff Hernandez APRN.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 Work Phone: Hematology/Oncology Comment on above: Malignant 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, estrogen receptor positive (HCC) (Primary Dx); HER2-positive carcinoma of left breast (HCC) Start: 01-14-2024 End: 01-14-2024 Patient encounter procedure Steff Hernandez APRN.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 Work Phone: Hematology/Oncology Start: 01-08-2024 End: 01-08-2024 Emergency department patient visit No Primary Care Physician Facility:[facility] Start: 01-02-2024 End: 01-02-2024 Subsequent hospital visit by physician Luz Garza DO Work Phone: [facility] Comment on above: Crohn's disease of b oth small and large intestine without complication (Multi) Start: 01-02-2024 End: 01-02-2024 ambulatory LUZ GARZA [facility] Start: 01-01-2024 End: 01-01-2024 ambulatory In[facility] Work Phone: Hematology/Oncology Comment on above: Malignant 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, estrogen receptor positive (HCC) (Primary Dx) Start: 12-28-2023 E-mail encounter fro m caregiver Cristopher Alaniz APRN.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 Work Phone: OB/Gynecology Start: 12-28-2023 End: 12-28-2023 Patient encounter procedure Cristopher Alaniz JAVIER Work Phone: OB/Gynecology Comment on above: Encounter for gyneco logical examination (general) (routine) without abnormal findings (Primary Dx); Screening for cervical cancer; Encounter for screening for human papillomavirus (HPV); History of breast cancer; Pre-conception counseling; Other specified dyspareunia; Female infertility LANEY Consult Start: 12-28-2023 End: 12-28-2023 Patient encounter status Cristopher Alaniz NARA.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 Work Phone: [facility] Start: 12-28-2023 ambulatory No Primary Car e Physician Facility:[facility] Start: 12-27-2023 End: 12-27-2023 ambulatory Anabelle Stubbs MD Work Phone: Hematology/Oncology Comment on above: Malignant 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, estrogen receptor positive (HCC) (Primary Dx) Start: 12-27-2023 End: 12-27-2023 Patient encounter procedure Anabelle Stubbs MD Work Phone: Hematology/Oncology Start: 12-11-2023 ambulatory No Primary Car e Physician Facility:[facility] Start: 12-07-2023 End: 12-07-2023 ambulatory PAULINA NULL Facility:[facility] Start: 12-07-2023 End: 12-07-2023 Patient encounter procedure Paulina Null DO Work Phone: General Surgery Comment on above: History of breast ca ncer (Primary Dx) Start: 12-04-2023 End: 12-04-2023 ambulatory Injection [facility] Work Phone: Hematology/Oncology Comment on above: Malignant 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, estrogen receptor positive (HCC) (Primary Dx) Start: 11-27-2023 End: 11-27-2023 ambulatory No Primary Care Physician Facility:[facility] Start: 11-22-2023 End: 11-22-2023 ambulatory No Primary Care Physician Facility:[facility] Start: 11-15-2023 End: 11-15-2023 ambulatory Jaqueline Jacinto Facility:[facility] Start: 11-08-2023 End: 11-08-2023 ambulatory [facility] Start: 11-08-2023 End: 11-08-2023 Office outpatient visit 25 minutes Luz Mami [facility] DO Work Phone: [facility] Comment on above: Crohn's disease of b oth small and large intestine without complication (Multi) (Primary Dx); Elevated alkaline phosphatase level; Pharyngitis due to infectious mononucleosis Start: 11-06-2023 End: 11-06-2023 ambulatory Injection [facility] Work Phone: Hematology/Oncology Comment on above: Malignant 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, estrogen receptor positive (HCC) (Primary Dx) Start: 11-01-2023 End: 11-01-2023 ambulatory No Primary Care Physician Facility:[facility] Start: 10-25-2023 End: 10-25-2023 ambulatory No Primary Care Physician Facility:[facility] Start: 10-10-2023 End: 10-10-2023 ambulatory Injection [facility] Work Phone: Hematology/Oncology Comment on above: Malignant 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, estrogen receptor positive (HCC) (Primary Dx) Malignant 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, estrogen receptor positive (HCC) (Primary Dx); HER2-positive carcinoma of left breast (HCC) Start: 10-10-2023 End: 10-10-2023 Patient encounter procedure Steff Hernandez STEAM SHOVELMAN.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 Work Phone: [facility] Start: 10-09-2023 Telephone encounter Negrito Kaye STEAM SHOVELMAN.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 Work Phone: [facility] Start: 10-08-2023 End: 10-08-2023 Patient encounter procedure Negrito Dupontomasonia STEAM SHOVELMAN.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 Work Phone: [facility] Comment on above: URI, acute (Primary Dx) Start: 09-12-2023 End: 09-12-2023 ambulatory Injection [facility] Work Phone: Hematology/Oncology Comment on above: Malignant 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, estrogen receptor positive (HCC) (Primary Dx) Start: 09-10-2023 ambulatory CHANTAL AYERS Facility:[facility] Start: 09-10-2023 End: 09-10-2023 Subsequent hospital visit by physician [facility] (1.5t) Radiology Comment on above: 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) [C50.912] Start: 08-14-2023 End: 08-14-[address] Jami Baker Work Phone: [facility] Work Phone: Start: 08-14-2023 End: 08-14-[address] Jami Baker Work Phone: [facility] Work Phone: Start: 08-13-2023 End: 08-14-2023 ambulatory Injection [facility] Work Phone: Hematology/Oncology Comment on above: Malignant 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, estrogen receptor positive (HCC) (HCC) (Primary Dx) Start: 07-10-2023 End: 07-11-2023 ambulatory [facility] Start: 07-10-2023 End: 07-10-2023 Office outpatient visit 25 minutes [facility] Work Phone: [facility] Comment on above: Crohn's disease of b oth small and large intestine without complication (CMS/HCC) (Primary Dx); Elevated alkaline phosphatase level Start: 06-21-2023 ambulatory Chantal Brown O Work Phone: Hematology/Oncology Comment on above: FYI Start: 06-12-2023 End: 06-12-2023 ambulatory Injection [facility] Work Phone: Hematology/Oncology Comment on above: Malignant 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, estrogen receptor positive (HCC) (Primary Dx) Start: 06-06-2023 Telephone encounter Zeina hansen STEAM SHOVELMAN.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 Work Phone: Reproductive Endocrinology Infertility Comment on above: Results; BHCG #2 in her surrogate after FET Start: 05-30-2023 Telephone encounter Zeina hansen APRN.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 Work Phone: Reproductive Endocrinology Infertility Start: 05-17-2023 ambulatory Megan Rahman [facility] Andrology Laboratory Start: 05-15-2023 Telephone encounter Alexus murillo Andrology Lab Comment on above: Patient Update Appointment Start: 05-08-2023 Telephone encounter Chantal russell DO Work Phone: Hematology/Oncology Comment on above: Orders Start: 05-07-2023 Telephone encounter Zeina hansen APRN.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 Work Phone: Reproductive Endocrinology Infertility Comment on above: Patient Update (date for FET with surrogate) Refill Request Start: 05-04-2023 End: 05-04-[address] Jami Baker Work Phone: [facility] Work Phone: Start: 05-04-2023 End: 05-04-2023 ambulatory Jami Baker Facility:[facility] Start: 05-03-2023 End: 05-03-2023 ambulatory Zeina Wong APRN.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 Work Phone: Reproductive Endocrinology Infertility Comment on above: Procreative manageme nt (Primary Dx) Start: 05-03-2023 End: 05-03-2023 Telemedicine consultation with patient Zeina A Judith BAINS.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 Work Phone: [facility] Start: 04-30-2023 Telephone encounter Paulina Null DO Work Phone: [facility] Comment on above: Appointment Start: 04-28-2023 ambulatory Zeina childs APRN.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 Work Phone: Reproductive Endocrinology Infertility Start: 04-23-2023 ambulatory Jam Foley MD Work Phone: Reproductive Endocrinology Infertility Comment on above: To Zeina Appiah Start: 04-20-2023 Telephone encounter Zeina hansen APRN.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 Work Phone: Reproductive Endocrinology Infertility Comment on above: Patient Update (plan for surrogate FET) Start: 04-16-2023 End: 04-16-2023 Patient encounter procedure Chantal Ayers DO Work Phone: [facility] Start: 04-16-2023 End: 04-16-2023 ambulatory Lab[facility] Work Phone: Hematology/Oncology Comment on above: Malignant 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, estrogen receptor positive (HCC) ; HER2-positive carcinoma of left breast (HCC); 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, estrogen receptor positive (HCC) (Primary Dx); HER2-positive carcinoma of left breast (HCC); 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 chemotherapy; Thrombocytopenia (HCC); Elevated alkaline phosphatase level Start: 04-16-2023 Telephone encounter Chantal russell DO Work Phone: Hematology/Oncology Comment on above: AVS 04/16 Start: 03-22-2023 End: 03-22-2023 ambulatory [facility] Work Phone: Hematology/Oncology Comment on above: Malignant 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, estrogen receptor positive (HCC) (Primary Dx) Start: 03-22-2023 End: 03-22-2023 Subsequent hospital visit by physician [facility] Prep [facility] Cat [facility] Comment on above: Malignant 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, estrogen receptor positive (HCC) [C50.412, Z17.0] Start: 03-21-2023 Telephone encounter Chantal russell DO Work Phone: Hematology/Oncology Comment on above: Results (Low platele ts) Start: 03-20-2023 End: 03-20-2023 ambulatory Injection [facility] Work Phone: Hematology/Oncology Comment on above: Malignant 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, estrogen receptor positive (HCC) (Primary Dx) Start: 03-19-2023 Telephone encounter Chantal russell DO Work Phone: Hematology/Oncology Comment on above: Patient Question Start: 03-16-2023 End: 03-16-2023 ambulatory Treatment Rm 11 [facility] Work Phone: Hematology/Oncology Comment on above: Malignant 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, estrogen receptor positive (HCC); HER2-positive carcinoma of left breast (HCC); 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 chemotherapy Start: 03-06-2023 End: 03-06-2023 ambulatory Chantal Dionne Ayers DO Work Phone: Hematology/Oncology Comment on above: Malignant 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, estrogen receptor positive (HCC) (Primary Dx); HER2-positive carcinoma of left breast (HCC); Thrombocytopenia (HCC); Iron 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 dietary iron intake; Crohn's disease of both small and large intestine without complication (HCC) Start: 03-06-2023 End: 03-06-2023 Patient encounter procedure Chantal Ayers DO Work Phone: [facility] Start: 03-02-2023 End: 03-02-2023 ambulatory Treatment Rm 13 [facility] Work Phone: Hematology/Oncology Comment on above: Iron deficiency anem ia secondary to inadequate dietary iron intake (Primary Dx); Iron malabsorption Start: 02-28-2023 End: 02-28-2023 ambulatory Treatment Rm 13 [facility] Work Phone: Hematology/Oncology Comment on above: Iron deficiency anem ia secondary to inadequate dietary iron intake (Primary Dx); Iron malabsorption Start: 02-26-2023 End: 02-26-2023 ambulatory Treatment Rm 13 [facility] Work Phone: Hematology/Oncology Comment on above: Iron deficiency anem ia secondary to inadequate dietary iron intake (Primary Dx); Iron malabsorption Start: 02-22-2023 End: 02-22-2023 ambulatory Treatment Rm 13 [facility] Work Phone: Hematology/Oncology Comment on above: Malignant 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, estrogen receptor positive (HCC) (Primary Dx); Iron 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 dietary iron intake; Iron malabsorption Start: 02-14-2023 End: 02-14-2023 ambulatory Treatment Rm 6 [facility] Work Phone: Hematology/Oncology Comment on above: Malignant 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, estrogen receptor positive (HCC) (Primary Dx); HER2-positive carcinoma of left breast (HCC); 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 chemotherapy Start: 02-13-2023 ambulatory Chantal Ayers Facility:[facility] Start: 02-13-2023 End: 02-13-2023 ambulatory Lab[facility] Work Phone: Hematology/Oncology Comment on above: 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); Malignant neoplasm of upper-outer quadrant of left breast in female, estrogen receptor positive (HCC); 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 chemotherapy; Iron 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 dietary iron intake; Iron malabsorption Start: 02-12-2023 ambulatory Jam Foley MD Work Phone: Reproductive Endocrinology Infertility Comment on above: Message for Zeina Appiah Start: 02-09-2023 Telephone encounter Chantal russell DO Work Phone: Hematology/Oncology Comment on above: Results (Bone scan n egative) Start: 02-08-2023 End: 02-08-2023 Subsequent hospital visit by physician [facility] Work Phone: Nuclear Medicine Comment on above: Malignant 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, estrogen receptor positive (HCC) [C50.412, Z17.0] Start: 02-08-2023 End: 02-08-2023 ambulatory Lab[facility] Work Phone: Hematology/Oncology Comment on above: 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); Malignant neoplasm of upper-outer quadrant of left breast in female, estrogen receptor positive (HCC); 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 chemotherapy Start: 02-05-2023 End: 02-05-2023 Subsequent hospital visit by physician [facility] Work Phone: Radiology Comment on above: Elevated serum alkal ine phosphatase level [R74.8] Start: 01-24-2023 End: 01-24-2023 ambulatory [facility] Work Phone: [facility] Comment on above: 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); Malignant neoplasm of upper-outer quadrant of left breast in female, estrogen receptor positive (HCC); Elevated serum alkaline phosphatase level Start: 01-23-2023 End: 01-23-2023 Patient encounter procedure Chantal Ayers DO Work Phone: 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, estrogen receptor positive (HCC) (Primary Dx); HER2-positive carcinoma of left breast (HCC); Elevated serum alkaline phosphatase level Malignant 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, estrogen receptor positive (HCC) (Primary Dx) Start: 01-03-2023 End: 01-03-2023 ambulatory Treatment Rm 6 [facility] [employer] [employer] Work Phone: Hematology/Oncology Comment on above: 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); Malignant neoplasm of upper-outer quadrant of left breast in female, estrogen receptor positive (HCC) Start: 01-02-2023 End: 01-02-2023 Patient encounter procedure Chantal Ayers DO Work Phone: 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 Thrombocytopenia (HC C) (Primary Dx); HER2-positive carcinoma of left breast (HCC); Malignant neoplasm of upper-outer quadrant of left breast in female, estrogen receptor positive (HCC) Start: 12-13-2022 Telephone encounter Zeina hansen APRN.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 Work Phone: Reproductive Endocrinology Infertility Comment on above: Patient Update (disc uss if doingMyriad screens, not done at time of IVF cycle) Start: 12-12-2022 End: 12-12-2022 Patient encounter procedure Chantal Ayers DO Work Phone: [facility] Start: 12-12-2022 End: 12-12-2022 ambulatory Lab/Port [facility] Work Phone: Hematology/Oncology Comment on above: Malignant 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, estrogen receptor positive (HCC) (Primary Dx); HER2-positive carcinoma of left breast (HCC); 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, estrogen receptor positive (HCC) (Primary Dx); Chemotherapy-induced neutropenia (HCC); Thrombocytopenia (HCC) Start: 12-11-2022 Telephone encounter Zeina hansen APRN.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 Work Phone: Reproductive Endocrinology Infertility Comment on above: plan for surrogate ( plans to jimmie a family member as surrogate, needs financial clearance as part of process for cycle) Start: 12-05-2022 End: 12-05-2022 Patient encounter procedure Jam Foley MD Work Phone: Reproductive Endocrinology Infertility Comment on above: Female infertility ( Primary Dx) Start: 11-20-2022 End: 11-20-2022 Patient encounter procedure Chantal Ayers DO Work Phone: [facility] [place] Start: 11-20-2022 End: 11-20-2022 ambulatory Lab/Port [facility] Work Phone: Hematology/Oncology Comment on above: 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); Malignant neoplasm of upper-outer quadrant of left breast in female, estrogen receptor positive (HCC); 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, estrogen receptor positive (HCC) (Primary Dx); HER2-positive carcinoma of left breast (HCC) Start: 11-02-2022 End: 11-02-2022 ambulatory Treatment Rm 7 [facility] Work Phone: Hematology/Oncology Comment on above: 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); Malignant neoplasm of upper-outer quadrant of left breast in female, estrogen receptor positive (HCC) Start: 11-01-2022 Refill Chantal Anderson Work Phone: Hematology/Oncology Comment on above: Refill Request Start: 10-31-2022 End: 10-31-2022 ambulatory Injection [facility] Work Phone: Hematology/Oncology Comment on above: Malignant 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, estrogen receptor positive (HCC) (Primary Dx) Start: 10-30-2022 End: 10-30-2022 ambulatory Lab/Port [facility] Work Phone: Hematology/Oncology Comment on above: 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); Malignant neoplasm of upper-outer quadrant of left breast in female, estrogen receptor positive (HCC); 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 chemotherapy Start: 10-10-2022 End: 10-10-2022 ambulatory Treatment Rm 7 [facility] Work Phone: Hematology/Oncology Comment on above: 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); Malignant neoplasm of upper-outer quadrant of left breast in female, estrogen receptor positive (HCC) Start: 10-09-2022 End: 10-09-2022 Patient encounter procedure Chantal Ayers DO Work Phone: [facility] [place] Start: 10-09-2022 End: 10-09-2022 ambulatory Chantal Ayers DO Work Phone: Hematology/Oncology Comment on above: Malignant 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, estrogen receptor positive (HCC) (Primary Dx); HER2-positive carcinoma of left breast (HCC) Malignant 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, estrogen receptor positive (HCC) (Primary Dx); HER2-positive carcinoma of left breast (HCC); 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 chemotherapy Start: 10-03-2022 Telephone encounter Zeina hansen APRN.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 Work Phone: Reproductive Endocrinology Infertility Comment on above: answerquestions abou t surrogacy (has ppat on 12-05-22.) Start: 10-03-2022 End: 10-03-2022 ambulatory Injection [facility] Work Phone: Hematology/Oncology Comment on above: Malignant 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, estrogen receptor positive (HCC) (Primary Dx) Start: 09-28-2022 Telephone encounter Jam lazaro MD Work Phone: Reproductive Endocrinology Infertility Comment on above: Surrgoate Questions Start: 09-19-2022 End: 09-19-2022 ambulatory Treatment Rm 10 [facility] Work Phone: Hematology/Oncology Comment on above: 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); Malignant neoplasm of upper-outer quadrant of left breast in female, estrogen receptor positive (HCC) Start: 09-18-2022 Telephone encounter Chantal russell DO Work Phone: Hematology/Oncology Comment on above: Results (Low potassi um) Question Start: 09-18-2022 End: 09-18-2022 ambulatory Lab/Port [facility] Work Phone: Hematology/Oncology Comment on above: 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); Malignant neoplasm of upper-outer quadrant of left breast in female, estrogen receptor positive (HCC); 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 chemotherapy Start: 09-14-2022 End: 09-14-2022 Patient encounter procedure Bradford García MD Work Phone: Plastic Surgery Comment on above: H/O breast reconstru ction (Primary Dx); HER2-positive carcinoma of left breast (HCC); Malignant neoplasm of upper-outer quadrant of left breast in female, estrogen receptor positive (HCC); Malignant neoplasm of left female breast, unspecified estrogen receptor status, unspecified site of breast (HCC); Invasive ductal carcinoma of breast, left (HCC); History of breast cancer Start: 09-06-2022 Chart abstracting Rebekah Fermin RN Hematology/Oncology Comment on above: CAREVIVE Alert Start: 08-29-2022 End: 08-29-2022 ambulatory Treatment Rm 11 [facility] Work Phone: Hematology/Oncology Comment on above: 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); Malignant neoplasm of upper-outer quadrant of left breast in female, estrogen receptor positive (HCC) Start: 08-29-2022 Telephone encounter Rebekah Fermin RN Hematology/Oncology Comment on above: Patient Question Start: 08-24-2022 End: 08-24-2022 Patient encounter procedure Chantal Ayers DO Work Phone: [facility] [place] Start: 08-24-2022 End: 08-24-2022 ambulatory Chantal Ayers DO Work Phone: Hematology/Oncology Comment on above: Malignant 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, estrogen receptor positive (HCC) (Primary Dx) 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); Malignant neoplasm of upper-outer quadrant of left breast in female, estrogen receptor positive (HCC); 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 chemotherapy Start: 08-15-2022 Telephone encounter Rebekah Fermin RN Hematology/Oncology Comment on above: Patient Update Start: 08-14-2022 Telephone encounter Rebekah Fermin RN Hematology/Oncology Comment on above: Patient Update Start: 08-08-2022 End: 08-08-2022 ambulatory Treatment Rm 1 [facility] Work Phone: Hematology/Oncology Comment on above: 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); Malignant neoplasm of upper-outer quadrant of left breast in female, estrogen receptor positive (HCC); 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 chemotherapy Start: 08-03-2022 End: 08-03-2022 ambulatory Treatment Rm 4 [facility] Work Phone: Hematology/Oncology Comment on above: Malignant 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, estrogen receptor positive (HCC) (Primary Dx); 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 chemotherapy Start: 08-03-2022 Telephone encounter Chantal russell DO Work Phone: Hematology/Oncology Comment on above: Results (Low iron) Start: 08-01-2022 End: 08-01-2022 Patient encounter procedure Chantal Ayers DO Work Phone: [facility] [place] Start: 08-01-2022 End: 08-01-2022 ambulatory Lab/Port [facility] Work Phone: Hematology/Oncology Comment on above: 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); Malignant neoplasm of upper-outer quadrant of left breast in female, estrogen receptor positive (HCC); 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, estrogen receptor positive (HCC) (Primary Dx); HER2-positive carcinoma of left breast (HCC); 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 chemotherapy Start: 07-31-2022 Orders Only Chantal Anderson Work Phone: Hematology/Oncology Comment on above: 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); Malignant neoplasm of upper-outer quadrant of left breast in female, estrogen receptor positive (HCC); Encounter for education; 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 chemotherapy Start: 07-21-2022 Chart abstracting Rebekah Fermin RN Hematology/Oncology Comment on above: [employer] Alert Start: 07-20-2022 Refill Lance Clement MD Work Phone: Hematology/Oncology Comment on above: Med Change Request Start: 07-14-2022 Telephone encounter Chantal russell DO Work Phone: Hematology/Oncology Comment on above: Patient Question Start: 07-06-2022 End: 07-06-2022 Patient encounter procedure Lance Clement MD Work Phone: [facility] Start: 07-06-2022 End: 07-06-2022 ambulatory Lab/Port [facility] Work Phone: Hematology/Oncology Comment on above: Malignant 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, estrogen receptor positive (HCC); HER2-positive carcinoma of left breast (HCC) 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); Malignant neoplasm of upper-outer quadrant of left breast in female, estrogen receptor positive (HCC) Start: 07-05-2022 Orders Only Lance Clement MD Work Phone: Hematology/Oncology Comment on above: Malignant 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, estrogen receptor positive (HCC) (Primary Dx); HER2-positive carcinoma of left breast (HCC) Start: 06-30-2022 Chart abstracting Rebekah Fermin RN Hematology/Oncology Comment on above: CAREVIVE alert Start: 06-27-2022 Telephone encounter Ace enriquez APRN.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 Work Phone: [facility] Comment on above: Results Start: 06-26-2022 End: 06-26-2022 Office outpatient visit 25 minutes Ace Atkins APRN.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 Work Phone: [facility] Comment on above: Sore throat (Primary Dx); Suspected COVID-19 virus infection Start: 06-26-2022 Telephone encounter Sheri flood RN Work Phone: Hematology/Oncology Comment on above: Patient Update (Sore throat, chills) Start: 06-22-2022 Chart abstracting Rebekah Fermin RN Hematology/Oncology Comment on above: CAREVIVE alert Start: 06-19-2022 End: 06-19-2022 ambulatory [facility] Comment on above: Acute pain of left s garry (Primary Dx) Start: 06-16-2022 End: 06-16-2022 Patient encounter procedure Bradford García MD Work Phone: [facility] Comment on above: Post-operative state (Primary Dx); HER2-positive carcinoma of left breast (HCC); Malignant neoplasm of upper-outer quadrant of left breast in female, estrogen receptor positive (HCC); Malignant neoplasm of left female breast, unspecified estrogen receptor status, unspecified site of breast (HCC); Invasive ductal carcinoma of breast, left (HCC); History of breast cancer Malignant 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, estrogen receptor positive (HCC) (Primary Dx) Start: 06-14-2022 Chart abstracting Rebekah Fermin RN Hematology/Oncology Comment on above: Carevive Alert Manag ement Start: 06-14-2022 Telephone encounter Krissy Beckham RN He matology/Oncology Comment on above: Interlibrary Loan Services Librarian - O ther (C1D1 Post Treatment Call ) Start: 06-13-2022 Telephone encounter Chantal russell DO Work Phone: Hematology/Oncology Comment on above: Appointment Start: 06-13-2022 End: 06-13-2022 ambulatory Treatment Rm 6 [facility] Work Phone: Hematology/Oncology Comment on above: Malignant 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, estrogen receptor positive (HCC) (Primary Dx); HER2-positive carcinoma of left breast (HCC) Start: 06-12-2022 Telephone encounter Lance Clement MD Work Phone: Hematology/Oncology Comment on above: Appointment Patient Update; Open ed In Error Malignant 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, estrogen receptor positive (HCC) (Primary Dx); HER2-positive carcinoma of left breast (HCC) Start: 06-09-2022 Chart abstracting Rebekah Fermin RN Hematology/Oncology Comment on above: Consent CAREVIVE Start: 06-09-2022 End: 06-09-2022 ambulatory In[facility] Work Phone: Hematology/Oncology Comment on above: Malignant 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, estrogen receptor positive (HCC) (Primary Dx) Start: 06-08-2022 End: 06-08-2022 ambulatory Valentina Khan PT, DPT 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); Malignant neoplasm of upper-outer quadrant of left breast in female, estrogen receptor positive (HCC) Start: 05-23-2022 Telephone encounter Chantal russell DO Work Phone: Hematology/Oncology Comment on above: Follow Up (Clinical trial eligibility ) Start: 05-22-2022 End: 05-22-2022 Patient encounter procedure Chantal Ayers DO Work Phone: [facility] Start: 05-22-2022 End: 05-22-2022 ambulatory Lab/Port [facility] Work Phone: Hematology/Oncology Comment on above: Malignant 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, estrogen receptor positive (HCC) Malignant 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, estrogen receptor positive (HCC) (Primary Dx); HER2-positive carcinoma of left breast (HCC) Start: 05-18-2022 End: 05-18-2022 ambulatory Krissy Spivey APRN.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 Work Phone: Plastic Surgery Comment on above: Post-operative state (Primary Dx) Start: 05-18-2022 End: 05-18-2022 Telemedicine consultation with patient Krissy Spivey APRN.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 Work Phone: [facility] Start: 05-15-2022 Orders Only Chantal Anderson Work Phone: Hematology/Oncology Comment on above: Malignant 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, estrogen receptor positive (HCC) (Primary Dx) Start: 05-09-2022 End: 05-09-2022 ambulatory [facility] Work Phone: Hematology/Oncology Comment on above: Malignant 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, estrogen receptor positive (HCC) (Primary Dx) Start: 05-08-2022 Telephone encounter Chantal russell DO Work Phone: Hematology/Oncology Comment on above: Appointment Start: 05-04-2022 End: 05-04-2022 Patient encounter procedure Krissy Spivey APRN.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 Work Phone: Plastic Surgery Comment on above: Post-operative state (Primary Dx) Start: 05-03-2022 End: 05-03-2022 Patient encounter procedure Praful Melgar MD Work Phone: Radiation Oncology Comment on above: Malignant 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, estrogen receptor positive (HCC) (Primary Dx) Start: 05-02-2022 End: 05-02-2022 rehabilitation director [facility] Work Phone: Hematology/Oncology Comment on above: Encounter for educat ion (Primary Dx) Radiation Start: 05-02-2022 Telephone encounter Krissy Beckham RN He matology/Oncology Comment on above: Interlibrary Loan Services Librarian - O ther (Antiemetic ) Start: 04-27-2022 Telephone encounter Praful Vinson MD Work Phone: Radiation Oncology Comment on above: Appointment Follow Up (EKG) Start: 04-27-2022 End: 04-27-2022 Patient encounter procedure Krissy Spivey APRN.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 Work Phone: Plastic Surgery Comment on above: Malignant neoplasm o f left female breast, unspecified estrogen receptor status, unspecified site of breast (HCC) (Primary Dx) Start: 04-26-2022 End: 04-26-2022 Orders Only Paulina Null DO Work Phone: [facility] Comment on above: Malignant 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, estrogen receptor positive (HCC) (Primary Dx) At risk for lymphede ma (Primary Dx); Malignant neoplasm of upper-outer quadrant of left breast in female, estrogen receptor positive (HCC); Breast removal, prophylactic Start: 04-25-2022 Telephone encounter Krissy Beckham RN He matology/Oncology Comment on above: Interlibrary Loan Services Librarian - O ther (Appointment today ) Interlibrary Loan Services Librarian - O ther (Switching treatment ) Appointment Start: 04-17-2022 End: 04-17-2022 Orders Only Paulina Null DO Work Phone: [facility] Comment on above: Malignant 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, estrogen receptor positive (HCC) (Primary Dx) Invasive ductal carc inoma of breast, left (HCC) [C50.912] Start: 04-13-2022 End: 04-13-[address] Braden Torres Work Phone: [facility] Work Phone: Start: 04-13-2022 End: 04-13-[address] Braden Torres Work Phone: [facility]-Laboratory, Specimen Start: 04-13-2022 End: 04-13-[address] Braden Torres Work Phone: [facility] [place] Start: 04-11-2022 End: 04-11-2022 ambulatory In[facility] Work Phone: Hematology/Oncology Comment on above: Malignant 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, estrogen receptor positive (HCC) (Primary Dx) Start: 03-29-2022 End: 03-29-2022 ambulatory Chantal Ayers DO Work Phone: Hematology/Oncology Comment on above: Malignant 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, estrogen receptor positive (HCC) (Primary Dx); HER2-positive carcinoma of left breast (HCC) Start: 03-29-2022 End: 03-29-2022 Patient encounter procedure Chantal Ayers DO Work Phone: [facility] Start: 03-28-2022 Orders Only Chantal Brown O Work Phone: Hematology/Oncology Comment on above: Malignant 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, estrogen receptor positive (HCC) (Primary Dx); HER2-positive carcinoma of left breast (HCC) Start: 03-27-2022 ambulatory Valentina Elisa hadley LPN Work Phone: [facility] Comment on above: Patient Education (L EFT mastectomy with SN bx and recon) Start: 03-24-2022 End: 03-24-2022 Admission to establishment Pac [facility] Work Phone: [facility] Start: 03-24-2022 End: 03-24-[address] [facility] 1 Work Phone: Pre Anesthesia Comment on above: Pre-operative examin ation (Primary Dx); HER2-positive carcinoma of left breast (HCC); Crohn's disease with complication, unspecified gastrointestinal tract location (HCC); 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 chemotherapy; Thrombocytopenia (HCC); Anal fissure Start: 03-24-2022 End: 03-24-[address] [facility] 1 Work Phone: Pre Anesthesia Start: 03-23-2022 End: 03-23-2022 Patient encounter procedure Uzair Dos Santos MD Work Phone: General Surgery Comment on above: Anal fissure (Primar y Dx) Start: 03-17-2022 End: 03-17-2022 Patient encounter procedure Paulina Null DO Work Phone: General Surgery Comment on above: Malignant 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, estrogen receptor positive (HCC) (Primary Dx) Start: 03-15-2022 End: 03-15-2022 ambulatory [facility] Work Phone: Hematology/Oncology Comment on above: 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); Malignant neoplasm of upper-outer quadrant of left breast in female, estrogen receptor positive (HCC) Start: 03-14-2022 End: 03-14-2022 ambulatory Treatment Rm 12 [facility] Work Phone: Hematology/Oncology Comment on above: Malignant 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, estrogen receptor positive (HCC) (Primary Dx); HER2-positive carcinoma of left breast (HCC) Start: 03-09-2022 Telephone encounter Chantal russell DO Work Phone: Hematology/Oncology Comment on above: Results Start: 03-09-2022 End: 03-09-2022 Patient encounter procedure Chantal Ayers DO Work Phone: [facility] [place] Start: 03-09-2022 End: 03-09-2022 ambulatory Lab/[facility] Work Phone: Hematology/Oncology Comment on above: 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); Malignant neoplasm of upper-outer quadrant of left breast in female, estrogen receptor positive (HCC) Malignant 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, estrogen receptor positive (HCC) (Primary Dx); HER2-positive carcinoma of left breast (HCC) Start: 03-08-2022 End: 03-08-2022 Subsequent hospital visit by physician Diagnostic Mammo [facility] Comment on above: Malignant neoplasm o f overlapping sites of left breast in female, estrogen receptor positive (HCC) [C50.812, Z17.0] Start: 03-07-2022 End: 03-07-2022 Subsequent hospital visit by physician [facility] (1.5t) Radiology Comment on above: Malignant neoplasm o f overlapping sites of left breast in female, estrogen receptor positive (HCC) [C50.812, Z17.0] Start: 03-02-2022 End: 03-02-2022 Patient encounter procedure Edith Franco MD Work Phone: General Surgery Comment on above: Anal fissure (Primar y Dx) Start: 02-28-2022 Telephone encounter Amber johnson PA-C Work Phone: Plastic Surgery Comment on above: Interlibrary Loan Services Librarian - O ther Start: 02-27-2022 Telephone encounter Krissy Beckham RN He matology/Oncology Comment on above: Patient Update Start: 02-21-2022 Telephone encounter Valentina patricio LPN Work Phone: [facility] Comment on above: Appointment Start: 02-20-2022 Telephone encounter Valentina patricio LPN Work Phone: [facility] Comment on above: Appointment Interlibrary Loan Services Librarian - O ther Start: 02-20-2022 End: 02-20-2022 ambulatory Treatment Rm 5 [facility] Work Phone: Hematology/Oncology Comment on above: 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); Malignant neoplasm of upper-outer quadrant of left breast in female, estrogen receptor positive (HCC) Start: 02-16-2022 Telephone encounter Chantal russell DO Work Phone: Hematology/Oncology Comment on above: Interlibrary Loan Services Librarian - O ther Start: 02-16-2022 End: 02-16-2022 Patient encounter procedure Lance Clement MD Work Phone: [facility] Start: 02-16-2022 End: 02-16-2022 ambulatory Lab/Port [facility] Work Phone: Hematology/Oncology Comment on above: Malignant 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, estrogen receptor positive (HCC) (Primary Dx); HER2-positive carcinoma of left breast (HCC) 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); Functional diarrhea Start: 02-08-2022 End: 02-08-2022 ambulatory Treatment Rm 10 [facility] Work Phone: Hematology/Oncology Comment on above: 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); Malignant neoplasm of upper-outer quadrant of left breast in female, estrogen receptor positive (HCC) Start: 02-07-2022 Telephone encounter Chantal russell DO Work Phone: Hematology/Oncology Comment on above: Patient Question (Di arrhea) Start: 01-27-2022 Telephone encounter Chantal russell DO Work Phone: Hematology/Oncology Comment on above: Appointment Start: 01-27-2022 End: 01-27-2022 ambulatory Treatment Rm 13 [facility] Work Phone: Hematology/Oncology Comment on above: 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); Malignant neoplasm of upper-outer quadrant of left breast in female, estrogen receptor positive (HCC) Start: 01-26-2022 End: 01-26-2022 ambulatory Chantal Ayers DO Work Phone: Hematology/Oncology Comment on above: Malignant 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, estrogen receptor positive (HCC) (Primary Dx); HER2-positive carcinoma of left breast (HCC) Start: 01-26-2022 End: 01-26-2022 Patient encounter procedure Chantal Ayers DO Work Phone: [facility] Start: 01-06-2022 Telephone encounter Chantal russell DO Work Phone: Hematology/Oncology Comment on above: Orders Start: 01-06-2022 End: 01-06-2022 ambulatory Treatment Rm 11 [facility] Work Phone: Hematology/Oncology Comment on above: 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); Malignant neoplasm of upper-outer quadrant of left breast in female, estrogen receptor positive (HCC) Start: 01-04-2022 End: 01-04-2022 ambulatory Lab/Port [facility] Work Phone: Hematology/Oncology Comment on above: Malignant 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, estrogen receptor positive (HCC) (Primary Dx); HER2-positive carcinoma of left breast (HCC) Start: 12-16-2021 Telephone encounter Chantal russell DO Work Phone: Hematology/Oncology Comment on above: Medication Question Start: 12-16-2021 End: 12-16-2021 ambulatory Treatment Rm 1 [facility] Work Phone: Hematology/Oncology Comment on above: 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); Malignant neoplasm of upper-outer quadrant of left breast in female, estrogen receptor positive (HCC) Start: 12-14-2021 End: 12-14-2021 ambulatory Lab/[facility] Work Phone: Hematology/Oncology Comment on above: Malignant 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, estrogen receptor positive (HCC); HER2-positive carcinoma of left breast (HCC) Start: 12-12-2021 End: 12-12-[address] Work Phone: [facility] Start: 12-12-2021 End: 12-12-2021 Nutrition therapy Verito Muniz RD Work Phone: Nutrition Therapy Comment on above: Nutrition Assessment Start: 12-09-2021 End: 12-09-2021 ambulatory Injection [facility] Work Phone: Hematology/Oncology Comment on above: Malignant 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, estrogen receptor positive (HCC) (Primary Dx) Start: 12-08-2021 Telephone encounter Krissy Belcher matology/Oncology Comment on above: Interlibrary Loan Services Librarian - O ther (Nutrition Consult ) Start: 12-07-2021 End: 12-07-2021 Patient encounter procedure Praful Melgar MD Work Phone: Radiation Oncology Comment on above: Malignant 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, estrogen receptor positive (HCC) Start: 12-06-2021 Telephone encounter Chantal russell DO Work Phone: Hematology/Oncology Comment on above: Appointment Cancelle d Start: 11-30-2021 Telephone encounter Krissy Belcher matology/Oncology Comment on above: Interlibrary Loan Services Librarian - O ther (Symptom Update ) Start: 11-27-2021 Telephone encounter Jami bowles MD Work Phone: Hematology/Oncology Comment on above: Returning Patient's Call (weak, had moment that was near passing out) Start: 11-25-2021 Telephone encounter Krissy Doup RN He matology/Oncology Comment on above: Interlibrary Loan Services Librarian - O ther (C1D1 Post Treatment Call ) Start: 11-24-2021 End: 11-24-2021 ambulatory Treatment Rm 6 [facility] Work Phone: Hematology/Oncology Comment on above: 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); Malignant neoplasm of upper-outer quadrant of left breast in female, estrogen receptor positive (HCC) Start: 11-23-2021 Telephone encounter Financial Navigator [facility] Work Phone: Hematology/Oncology Comment on above: Benefits Investigati on Start: 11-23-2021 End: 11-23-2021 ambulatory Lab/[facility] Work Phone: Hematology/Oncology Comment on above: Malignant 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, estrogen receptor positive (HCC) (Primary Dx); HER2-positive carcinoma of left breast (HCC) Start: 11-22-2021 Orders Only Chantal Brown O Work Phone: Hematology/Oncology Comment on above: Malignant 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, estrogen receptor positive (HCC) (Primary Dx); HER2-positive carcinoma of left breast (HCC) Start: 11-21-2021 Refill Jam Foley MD Work Phone: Reproductive Endocrinology Infertility Comment on above: Refill Request Start: 11-19-2021 End: 11-19-2021 Patient encounter procedure Andrology Photo Engraver Work Phone: Andrology Lab Comment on above: Primary female infer tility (Primary Dx) Start: 11-17-2021 Telephone encounter Paulina Null DO Work Phone: General Surgery Comment on above: Results Start: 11-15-2021 ambulatory [facility] Provider Hematology /Oncology Comment on above: lab draw Start: 11-15-2021 E-mail encounter kyle may caregiver [facility] Provider [facility] Start: 11-15-2021 Telephone encounter Zak Thompson RN Work Phone: Mammography Comment on above: Results Patient Request Start: 11-14-2021 Telephone encounter Al[facility] Comment on above: Patient Update Patient Question Start: 11-13-2021 End: 11-13-2021 Patient encounter procedure Ace Raymond MD Work Phone: Surgery Center Comment on above: Encounter for fertil ity preservation procedure (Primary Dx) Female infertility ( Primary Dx) Start: 11-12-2021 End: 11-12-2021 Nursing evaluation of patient and report Nurse [facility] Work Phone: Reproductive Endocrinology Infertility Comment on above: Female infertility ( Primary Dx) Start: 11-11-2021 Telephone encounter Chantal russell DO Work Phone: Hematology/Oncology Comment on above: Opened In Error Follow Up (Jeanette in jections) Start: 11-10-2021 End: 11-10-2021 Subsequent hospital visit by physician Mri Main A[facility] (Large Bore/1.5t) Work Phone: MRI A10 Comment on above: Malignant 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, estrogen receptor positive (HCC) [C50.412, Z17.0] Start: 11-10-2021 End: 11-10-2021 Nursing evaluation of patient and report Nurse [facility] Work Phone: Reproductive Endocrinology Infertility Comment on above: 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); Encounter for fertility preservation procedure; Malignant neoplasm of upper-outer quadrant of left breast in female, estrogen receptor positive (HCC); Fertility testing; Female infertility Start: 11-09-2021 End: 11-09-2021 ambulatory Nurse [facility] Work Phone: Reproductive Endocrinology Infertility Comment on above: Infertility Start: 11-09-2021 End: 11-09-2021 Patient encounter procedure Nurse Laney [facility] Work Phone: [facility] Start: 11-08-2021 Telephone encounter Jam lazaro MD Work Phone: Reproductive Endocrinology Infertility Comment on above: Sarah (Returning your call) duplicate (see notes in Nurse visit) Start: 11-08-2021 End: 11-08-2021 ambulatory Lab/Port [facility] Work Phone: Hematology/Oncology Comment on above: 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); Primary female infertility; Malignant neoplasm of upper-outer quadrant of left breast in female, estrogen receptor positive (HCC) Start: 11-07-2021 Telephone encounter Paulina Null DO Work Phone: [facility] Comment on above: Results Malignant 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, estrogen receptor positive (HCC) (Primary Dx) 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); Malignant neoplasm of upper-outer quadrant of left breast in female, estrogen receptor positive (HCC) Interlibrary Loan Services Librarian - O ther (Medication/Schedule ) Start: 11-07-2021 End: 11-07-2021 rehabilitation director [facility] Work Phone: Hematology/Oncology Comment on above: Malignant 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, estrogen receptor positive (HCC) (Primary Dx) Start: 11-06-2021 End: 11-06-2021 Nursing evaluation of patient and report Nurse [facility] Work Phone: Reproductive Endocrinology Infertility Comment on above: Encounter for fertil ity preservation counseling prior to cancer therapy (Primary Dx); HER2-positive carcinoma of left breast (HCC); Encounter for fertility preservation procedure; Malignant neoplasm of upper-outer quadrant of left breast in female, estrogen receptor positive (HCC); Fertility testing; Encounter for fertility preservation counseling; Primary female infertility Start: 11-04-2021 Telephone encounter Zak Thompson RN Work Phone: Mammography Comment on above: Results Start: 11-03-2021 Telephone encounter Krissy Beckham RN He matology/Oncology Comment on above: Interlibrary Loan Services Librarian - O ther (Chemo education ) Start: 11-01-2021 End: 11-01-2021 Subsequent hospital visit by physician Procedure Mammo [facility] Work Phone: [facility] Comment on above: Breast disorder [N64 .9] Start: 11-01-2021 End: 11-01-2021 Subsequent hospital visit by physician Mri [facility] 2 (Istat/3t) Work Phone: [facility] Comment on above: Breast disorder [N64 .9] Start: 11-01-2021 End: 11-01-2021 Nursing evaluation of patient and report Nurse [facility] Work Phone: Reproductive Endocrinology Infertility Comment on above: 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); Encounter for fertility preservation procedure; Malignant neoplasm of upper-outer quadrant of left breast in female, estrogen receptor positive (HCC); Fertility testing Start: 10-31-2021 Telephone encounter Sarah bradshaw RN Reproductive Endocrinology Infertility Comment on above: IVF cycle set-up Start: 10-31-2021 Non-patient / Non-visit No [facility] Care Physician [facility] Start: 10-31-2021 End: 10-31-2021 Admission to same day surgery center No Primary Care Physician [facility] Start: 10-28-2021 End: 11-07-2021 Patient encounter procedure Jam Foley MD Work Phone: Reproductive Endocrinology Infertility Comment on above: Encounter for fertil ity preservation counseling (Primary Dx) Start: 10-26-2021 Telephone encounter Chantal russell DO Work Phone: Hematology/Oncology Comment on above: Patient Question Start: 10-25-2021 End: 10-25-2021 ambulatory Chantal Ayers DO Work Phone: Hematology/Oncology Comment on above: 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) Breast disorder (Talia margy Dx) Start: 10-25-2021 Telephone encounter Krissy Beckham RN He matology/Oncology Comment on above: Interlibrary Loan Services Librarian - O ther (Introduction ) Start: 10-25-2021 End: 10-25-2021 Subsequent hospital visit by physician Screen/Diagnostic [facility]amm[facility] Work Phone: Mammography Comment on above: Malignant neoplasm o f left female breast, unspecified estrogen receptor status, unspecified site of breast (HCC) [C50.912] Start: 10-25-2021 End: 10-25-2021 Patient encounter procedure Chantal Ayers DO Work Phone: [facility] Start: 10-24-2021 ambulatory Chantal Truong Elle Anderson Work Phone: [facility] Start: 10-24-2021 Patient encounter procedure Chantal Ayers DO Work Phone: Hematology/Oncology Comment on above: Should I reschedule this appointment? Start: 10-21-2021 End: 10-21-2021 Patient encounter procedure Paulina Null DO Work Phone: General Surgery Comment on above: Malignant 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, estrogen receptor positive (HCC) (Primary Dx); At risk for lymphedema History of breast ca ncer (Primary Dx) Start: 10-20-2021 End: 10-20-2021 Orders Only Valentina Mars LPN Work Phone: [facility] Comment on above: Malignant neoplasm o f left female breast, unspecified estrogen receptor status, unspecified site of breast (HCC) (Primary Dx) Invasive ductal carc inoma of breast, female, left (HCC) [C50.912] Start: 10-19-2021 End: 10-19-2021 Orders Only Paulina Null DO Work Phone: [facility] Comment on above: Invasive ductal carc inoma of breast, female, left (HCC) (Primary Dx) Breast Mass Malignant 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, estrogen receptor positive (HCC) (Primary Dx) Start: 10-18-2021 Telephone encounter Valentina patricio LPN Work Phone: [facility] Comment on above: Appointment Interlibrary Loan Services Librarian - O ther Start: 10-18-2021 End: 10-18-2021 Subsequent hospital visit by physician Vani Mtz MD Work Phone: [facility] Comment on above: Malignant neoplasm o f left breast in female, estrogen receptor positive, unspecified site of breast; Family history of breast cancer Start: 10-17-2021 Registered Recurring No Primar y Care Physician [facility] Start: 10-17-2021 End: 10-17-2021 Patient encounter procedure No Primary Care Physician [facility] Start: 10-13-2021 End: 10-13-2021 Patient encounter procedure No Primary Care Physician [facility] Start: 10-07-2021 End: 10-07-2021 Patient encounter procedure No Primary Care Physician [facility]Laboratory, Specimen Start: 10-07-2021 End: 10-07-2021 Patient encounter procedure No Primary Care Physician [facility] Start: 10-04-2021 End: 10-04-2021 Patient encounter procedure No Primary Care Physician [facility] Start: 06-27-2021 End: 06-27-2021 Patient encounter procedure No [facility] Start: 06-16-2021 End: 06-16-2021 Patient encounter procedure No Primary Care Physician [facility] Start: 03-17-2021 Office outpatient ne w 45 minutes No PCP None [facility] Work Phone: Start: 12-23-2018 End: 12-23-2018 Office outpatient visit 15 minutes [facility] Start: 10-26-2017 End: 10-31-2017 [facility] Facility: Start: 01-02-2014 End: 01-02-2014 Office outpatient visit 25 minutes [facility] Start: 10-03-2013 End: 10-03-2013 Patient encounter procedure [facility] Start: 02-19-2013 End: 02-19-2013 Patient encounter procedure [facility] Start: 02-17-2013 End: 02-17-2013 Patient encounter procedure [facility] Start: 02-11-2013 End: 02-11-2013 Office outpatient visit 15 minutes [facility] Start: 02-10-2013 End: 02-12-2013 Patient encounter procedure [facility] Start: 02-07-2013 End: 02-07-2013 Patient encounter procedure [facility] Start: 01-28-2013 End: 01-28-2013 Office outpatient visit 25 minutes Braden Torres [facility] Start: 08-07-2012 End: 08-07-2012 Patient encounter procedure Braden Torres [facility] Start: 07-18-2012 End: 07-18-2012 Patient encounter procedure Braden Torres [facility] Start: 08-21-2011 End: 08-21-2011 Patient encounter procedure Braden Torres [facility] Start: 01-25-2011 End: 01-25-2011 Office outpatient visit 15 minutes Braden Torres [facility] Start: 01-02-2011 End: 01-02-2011 Patient encounter procedure Braden Torres [facility] Start: 12-28-2010 End: 12-28-2010 Phone Encounter Braden Torres [facility] Ceiling Insulation Blower al Medicine Start: 12-20-2010 End: 12-20-2010 Office outpatient new 45 minutes Braden Torres [facility] Procedures Date Procedure Procedure Detail Performing Clinician Start: 03-18-2025 Endocervical curettage not done as part of d&c Janina Bearden MD Work Phone: Start: 03-18-2025 Hysteroscopy diagnostic separate procedure Janina Bearden MD Work Phone: Start: 03-18-2025 Urine test visual color cmprsn meths Ace Raymond MD Work Phone: Start: 01-13-2025 Saline infus sonohysterography w/color doppler Jam Foley MD Work Phone: Start: 01-13-2025 Urine test visual color cmprsn meths Camille Luo STEAM SHOVELMAN.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 Work Phone: Start: 05-05-2024 STREP A MOLECULAR (POC) Radha Story STEAM SHOVELMAN.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 Work Phone: Start: 01-02-2024 Colonoscopy w/biopsy single/multiple Luz Garza DO Work Phone: Start: 01-02-2024 Level iv surg pathology gross&microscopic exam Luz Garza DO Work Phone: Start: 01-02-2024 Colonoscopy Luz Garza DO Work Phone: Start: 12-28-2023 Microscopic observation [Identifier] in Cervix by Cyto stain Luz Garza DO Work Phone: Start: 10-08-2023 INFLUENZA A&B MOLECULAR (POC) Negrito Kaye STEAM SHOVELMAN.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 Work Phone: Start: 08-14-2023 MRI of abdomen with contrast Dr. Jami Baker Work Phone: Start: 04-16-2023 Blood count complete auto&auto difrntl wbc Chantal A Masci DO Work Phone: Start: 03-22-2023 Ct abdomen & pelvis w/contrast material Chantal Truong Masci DO Work Phone: Start: 03-16-2023 Blood count complete auto&auto difrntl wbc Chantal A Masci DO Work Phone: Start: 02-13-2023 Blood count complete auto&auto difrntl wbc Chantal A Masci DO Work Phone: Start: 02-08-2023 Bone &/joint imaging whole body Chantal A Masci DO Work Phone: Start: 02-05-2023 Us abdominal real time w/image limited Chantal A Masci DO Work Phone: Start: 01-23-2023 Blood count complete auto&auto difrntl wbc Chantal A Masci DO Work Phone: Start: 01-02-2023 Blood count complete auto&auto difrntl wbc Chantal A Masci DO Work Phone: Start: 12-13-2022 Blood count complete auto&auto difrntl wbc Chantal A Masci DO Work Phone: Start: 12-12-2022 Blood count complete auto&auto difrntl wbc Chantal A Masci DO Work Phone: Start: 11-20-2022 Blood count complete auto&auto difrntl wbc Chantal A Masci DO Work Phone: Start: 10-30-2022 Blood count complete auto&auto difrntl wbc Chantal A Masci DO Work Phone: Start: 10-09-2022 Blood count complete auto&auto difrntl wbc Chantal Truong Masci DO Work Phone: Start: 09-18-2022 Blood count complete auto&auto difrntl wbc Chantal Truong Masci DO Work Phone: Start: 08-24-2022 Blood count complete auto&auto difrntl wbc Chantal Truong Masci DO Work Phone: Start: 08-08-2022 Blood count complete auto&auto difrntl wbc Chantal Truong Masci DO Work Phone: Start: 08-01-2022 Blood count complete auto&auto difrntl wbc Chantal Truong Masci DO Work Phone: Start: 07-06-2022 Blood count complete auto&auto difrntl wbc Lance Clement MD Work Phone: Start: 06-26-2022 STREP A MOLECULAR (POC) Marilyn Gilmore PA-C Work Phone: Start: 06-13-2022 Blood count complete auto&auto difrntl wbc Chantal Truong Masci DO Work Phone: Start: 06-05-2022 Blood count complete auto&auto difrntl wbc Lance Clement MD Work Phone: Start: 05-22-2022 Blood count complete auto&auto difrntl wbc Chantal Truong Masci DO Work Phone: Start: 04-17-2022 Radiological examination surgical specimen Paulina Null DO Work Phone: Start: 04-17-2022 Lymphatics & lymph nodes imaging Amber Miles PA-C Work Phone: Start: 04-13-2022 End: 04-13-2022 Optometry Professor Office Visit Report Procedure Note: See Note; NOTES: [facility] [address] [place] [address] OFFICE VISIT Date of Service: 04/13/22 MR#: [id number] Acct: [id number] Name: STEPHEN SELF Rep #: [id number] : 1990 Provider: Dr. 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: No Is patient in pain?: No Allergies No Known Allergies Allergy (Verified 04/13/22 09:20) Medications lactobacillus combination no.4 3 billion cell capsule (Probiotic) 3,000 mmu cells PO DAILY 04/13/22 [History Confirmed 04/13/22] loperamide 2 mg tablet (Imodium A-D) 2 mg PO Q6H PRN 04/13/22 [History Confirmed 04/13/22] promethazine 12.5 mg tablet 12.5 mg PO Q6H PRN 04/13/22 [History Confirmed 04/13/22] Post menopausal: No Patient : No : No PFSH Medical History Alcohol use Anemia Back pain Bowel obstruction Breast cancer Crohn's disease Fatigue Migraines Non-smoker Stomach ulcer Wears contact lenses Wears glasses Surgical History History of removal of cyst Hx of colonoscopy Hx of tonsillectomy Hx of wisdom tooth extraction Family History Grandmother Breast cancer Hypertension Thyroid disorder Diabetes type two Social History (Updated 04/13/22 @ 09:30 by Jessenia Melgar) Smoking Status: Never smoker alcohol intake: current alcohol intake frequency: holidays/special occasions only details: occasionally substance use type: does not use caffeine: Yes what type of physical activity do you participate in: none seatbelt use: always do you feel safe at home: Yes additional social history: - Deon History 0 Elective abortions Hx Para Spontaneous abortions Hx # Term Pregnancies Ectopic pregnancies Hx # Pregnancies Multiple births # of living children HPI Encounter for routine gynecological examination Details: STEPHEN SELF is a 32 year old who presents for annual exam. She is on chemo currently for intraductal carcinoma insitu and having bilateral masectomy. wants to discuss surrogacy vs IVF. she has 3 embryos. brca neg. grandma had breast ca at age 50. she states that she is the youngest in her family with cancer. She is on lupron currently Last PAP: 2019 History of abnormal PAP: h/o HPV in past Last mammogram: this year Colon cancer screening:will discuss when headed closer to [facility] Other preventative health care screenings:followed by pcp Female Reproductive History Questions: metorrhagia: No, sexually active: Yes, dyspareunia: No and PCB: No Menopausal Symptoms: No hot flashes, No night sweats, No weight change, No mood changes, No difficulty concentrating, No sleep problems and No change in libido ROS Const Constitutional: Reports as per HPI; Denies fatigue, increased appetite, poor appetite, night sweats, weight gain or weight loss Cardio Card: Denies chest pain Resp Resp: Denies cough or dyspnea GI GI: Reports as per HPI; Denies abdominal pain, bloating, constipation, nausea or vomiting : Reports as per HPI and other; Denies difficulty voiding, dysuria, hematuria, hot flashes, nipple discharge, pelvic pain, prolapse symptoms, urinary frequency, urinary incontinence, urinary urgency, vaginal discharge, vaginal dryness, vaginal odor or vaginal pruritus Skin Skin/Breast: Denies changing lesions, breast mass, breast pain, breast skin changes or nipple discharge Psych Psych: Denies anxiety, change in libido, depression or difficulty concentrating Exam Const General: cooperative, healthy appearing, comfortable, no acute distress, well developed and well groomed [facility] Head: normal to inspection and normocephalic Ears: hearing grossly normal bilaterally and external ears normal Nose: external nose normal Face and sinus: normal facial exam Neck Thyroid: thyroid normal Resp Effort Inspection: normal respiratory effort GI Inspection: normal to inspection and non-distended Palpation: soft, no hepatosplenomegaly and no guarding General: bladder normal to palpation External Female Exam: normal external appearance, normal appearance of the urethra and no lesions Urethra: normal appearance of the urethra and normal palpation Speculum Exam - Vagina: normal appearance of the vagina and normal vaginal discharge Speculum Exam - Cervix: normal appearance of the cervix, no cervical discharge, no lesions and nontender Bimanual Exam- Vagina Uterus: normal bimanual exam, uterine size normal, bladder normal to palpation, No tender, uterine mobility normal, consistency normal, non-tender and no cervical motion tenderness Bimanual Exam- Adnexa, other: normal adnexae, no masses and non-tender Skin General: no rashes or lesions noted Neuro General: patient alert, moves all extremities and no focal motor deficits Extrem General: normal to inspection and no pedal edema Psych Appearance: grossly normal Mental Status: mental status grossly normal Affect: normal affect Speech and Movement: speech and movement normal Attitude: cooperative Coding Level of Care Code Off vis,new,prev 18-39yrs Diagnoses Encounter for routine gynecological examination Z01.419 Assessment and Plan Assessment and Plan (1) Encounter for routine gynecological examination: Plan: Cervical cancer screening: pap done today Breast cancer: followed by Dr. Ayers at [facility] STD prevention and contraceptive options including their risks, benefits, and alternatives were reviewed with the patient and she chooses: on lupron and will likely stay in menopause and ask her sis in law to be surrogate Encouraged maintenance of a healthy weight and active lifestyle and handout given. Calcium/vitamin D recommendations provided. Annual exam handout including recommendations for good health guidelines and basic screening information given. Problem list up to date, see problem list details for any additional plan information. follow up in one year for annual health maintenance exam or sooner if needed. Plan Details Goals Barriers: Goals Decrease pain Decrease spasm Improve HAs 04/13/22 1018 <Electronically signed by Valentina Duran DO> Date Valentina Duran DO Cosign Signature: Date (if applicable) CC: Braden Torres DO Work Phone: Start: 03-14-2022 Blood count complete auto&auto difrntl wbc Chantal Ayers DO Work Phone: Start: 03-09-2022 CBC + DIFF Chantal Truong Masci DO Work Phone: Start: 03-09-2022 Comprehensive metabolic panel Chantal Truong Masci DO Work Phone: Start: 03-08-2022 Us breast uni real time with image limited Paulina Truong Chaka DO Work Phone: Start: 03-08-2022 JOSE A DIAG W GRETCHEN LEFT Paulina A Chaka DO Work Phone: Start: 03-07-2022 Mri breast without&with contrast w/cad bilateral Paulina A Chaka DO Work Phone: Start: 02-16-2022 Blood count complete auto&auto difrntl wbc Chantal Truong Masci DO Work Phone: Start: 01-04-2022 Blood count complete auto&auto difrntl wbc Chantal Truong Masci DO Work Phone: Start: 12-14-2021 Blood count complete auto&auto difrntl wbc Chantal Truong Masci DO Work Phone: Start: 11-23-2021 Blood count complete auto&auto difrntl wbc Chantal Truong Masci DO Work Phone: Start: 11-10-2021 Diagnostic mammography computer-aided detcj uni Paulina Truong Chaka DO Work Phone: Start: 11-10-2021 Bx breast w/device 1st lesion magnetic res guid Paulina Truong Chaka DO Work Phone: Start: 11-10-2021 Assay of estradiol Vane Blackmon MD Work Phone: Start: 11-08-2021 Blood count complete auto&auto difrntl wbc Chantal Truong Masci DO Work Phone: Start: 11-06-2021 Assay of estradiol Vane Blackmon MD Work Phone: Start: 11-01-2021 Perq breast loc device placemt 1st lesio farhat Britt MD Work Phone: Start: 11-01-2021 Diagnostic mammography computer-aided detcj uni Jasmyn Britt MD Work Phone: Start: 11-01-2021 Bx breast w/device 1st lesion ultrasound guid Jasmyn Britt MD Work Phone: Start: 11-01-2021 Us pelvic nonobstetric image dcmtn limited/f/u Jam Foley MD Work Phone: Start: 11-01-2021 Comprehensive metabolic panel Chantal Dionne Ayers DO Work Phone: Start: 11-01-2021 Hepatitis c antibody Jam Foley MD Work Phone: Start: 11-01-2021 End: 11-01-2021 Iaad ia hepatitis b surface antigen Jam Foley MD Work Phone: Start: 10-31-2021 End: 10-31-2021 Viral antigen assay No Primary Care Physician Start: 10-31-2021 End: 10-31-2021 Discharge Instruction Comments: See Note; NOTES: [facility] Medical Records Department [address] [place] [address] Instructions for Home/Discharge Instructions 10/31/21 0816 MR#: [id number] Acct: [id number] Name: STEPHEN SELF Rep #: [id number] : 1990 31 From: Jami Baker MD PCP: Dr. Braden Torres, DO Status:[facility] Discharge Instructions Procedure Port-A-Cath Diet Discharge Diet: Light diet - advance as tolerated (Pain medication may cause nausea. You should typically eat light foods as you take your pain medication.) Activity Discharge Activity: Return to Normal Activity and May Shower (with your bandage in place in 1-2 days after surgery. DO NOT SHOWER WHEN YOUR PORT IS ACCESSED.) Dressing / Incision Call your doctor if your incision/area has: Continuous Slow Oozing, Sudden Increased Bleeding, Increased Pain/ Swelling, Increased Redness and Foul Smelling Discharge Call your doctor if you observe: Fever of 101 or Higher Remove Dressing in: 2 days Cleanse incision/area with: Soap Water Follow Up Care Please Follow Up With: Jami Baker MD When: as needed [phone] Test Results: Test results from this visit will be discussed in further detail at your follow-up appointment, if applicable. Discharge Plan Admission Attending Provider: Jami Baker Primary Care Provider: Braden Torres Discharge Orders/Prescriptions Prescriptions: No Action NK RF: 0 Referrals / Follow Up: Braden Torres DO [Primary Care Provider] - Disposition Disposition (needs filled in before D/C Order can be placed): Home, Self Care 10/31/21816<Electronically signed by Jami Baker MD>Jami Baker MD CC: Dr. Braden Torres DO Signed Braden Torres DO Work Phone: Start: 10-31-2021 End: 10-31-2021 Operative Report Comments: See Note; NOTES: [facility] Medical Records Department [address] [place] [address] Operative Report 10/31/21814 MR#: [id number] Acct: [id number] Name: STEPHEN SELF Rep #: [id number] : 1990 31 From: Jami Baker MD PCP: Dr. Braden Torres DO Status:[facility] Location: [place] [address] Problems Associated Problem List Diagnoses (1) Encounter for insertion of venous access port: Report of Operation Date of Procedure: 10/31/21 Pre-Operative Diagnosis: Left breast cancer and need for vascular access Post-Operative Diagnosis: Same Surgery/Procedure Performed:: Ultrasound and fluoroscopy guided right chest port placement utilizing right IJ Description of Procedure: After obtaining informed consent patient was brought back to the operating room MAC anesthesia was induced and the right chest and neck were prepped in normal sterile fashion. Ultrasound was used to evaluate both IJs and the right IJ was selected. Next, using a needle, the right IJ was accessed and a guidewire was passed on into the superior vena cava under fluoroscopy guidance. A small incision was made over the puncture site and the dilator introducer was placed over the guidewire. Next this was capped and the pocket was made for the port. 1% lidocaine with epinephrine was injected in the proposed port site. An incision was made with scalpel. Electrocautery was used to make a pocket under the skin and subcutaneous tissue. Hemostasis was obtained. Next, the catheter was tunneled up to the neck incision site and placed through the introducer. The peel-away introducer was removed and the position of the catheter was confirmed on fluoroscopy. Next, the catheter was trimmed and attached to the port with the locking device. Interrupted 2-0 Vicryl sutures were used to anchor the port to the chest wall and then the port was placed inside the pocket. The pocket was then flushed with saline and the port irrigated with saline. There was good blood return and the port flushed easily. Next, heparin was injected into the port. The skin was closed with subcutaneous interrupted 3-0 Vicryl sutures. A single 3-0 Vicryl sutures placed under the skin at the neck incision site. Steri-Strips were placed as well as op sites. Patient tolerated procedure well, was taken to PACU in stable condition. Chest x-ray will be obtained. Grafts/Implants Used: 8 Divehi PowerPort Admit VTE Documentation VTE Mechan Device Prophylaxis: SCD's 10/31/21 0816 <Electronically signed by Jami Baker MD> Cosigner Signature (if applicable): CC: Dr. Jami Baker MD; Dr. Braden Torres DO Signed Braden Torres DO Work Phone: Start: 10-31-2021 End: 10-31-2021 Chest 1 View (Portable) Comments: See Note; NOTES: [facility] Imaging Services [address] [place] [address] Chest 1 View (Portable) MR#: [id number] Acct: [id number] Name: STEPHEN SELF Rep #: [id number] : 1990 F 31 From: Bradford Castillo MD PCP: Dr. Braden Torres DO Status: [facility] Study: Chest 1 View (Portable) Date of Exam: 10/31/21 Exam# [id number] Ordering Dr: Jami Baker STUDY: X-RAY CHEST REASON FOR EXAM: Female, 31 years old. Port placement TECHNIQUE: Frontal view of the chest COMPARISON: None. FINDINGS: There is a right-sided port with its tip in the superior vena cava. The lungs are clear. There are no pleural effusions. There is no pneumothorax. The heart is normal in size. The visualized osseous structures are within normal limits. RAD/Chest 1 View (Portable) IMPRESSION: Satisfactory position of the right-sided port. No pneumothorax. Electronically Signed: Bradford Castillo MD at 8:23 EDT , CC: Dr. Jami Baker MD; Dr. Braden Torres DO Transportation Worker: Signed Braden Torres DO Work Phone: Start: 10-31-2021 Plain chest X-ray No Primary Care Physician Start: 10-31-2021 Implantation to cardiovascular system No Primary Care Physician Start: 10-31-2021 Fluoroscopic guidance No Primary Care Physician Start: 10-31-2021 End: 10-31-2021 H AND P Exam - Surgical Comments: See Note; NOTES: [facility] Medical Records Department [address] [place] [address] H P Exam - Surgical 10/31/21 0707 MR#: [id number] Acct: [id number] Name: STEPHEN SELF Rep #: [id number] : 1990 31 From: Jami Baker MD PCP: Dr. Braden Torres, Status:[facility] Location: [place] [address] HPI - General HPI Narrative STEPHEN SELF, is a 31 F who presents for chest port for him. Patient has breast cancer of the left breast and was sent here for port for neoadjuvant therapy. [facility] Medical History (Updated 10/31/21 @ 07:[address] Jami Baker MD) Alcohol use Anemia Back pain Bowel obstruction Breast cancer Crohn's disease Fatigue Migraines Non-smoker Stomach ulcer Wears contact lenses Wears glasses Home Medications NK 10/28/21 [History Last Taken Unknown] Allergy/AdvReac Type Severity Reaction Status Date / Time No Known Allergies Allergy Verified 10/31/21 06:20 Family History (Updated 10/17/21 @ 15:33 by Dalia Gr) Grandmother Breast cancer Hypertension Thyroid disorder Diabetes type two Surgical History (Updated 10/28/21 @ 10:03 by Patrizia Gamble) History of removal of cyst Hx of colonoscopy Hx of tonsillectomy Hx of wisdom tooth extraction Social History Smoking Status: Never smoker alcohol intake: current alcohol intake frequency: holidays/special occasions only ROS Constitutional Constitutional: Denies anorexia or chills Eyes Eyes: Denies blurry vision ENT HEENT: Denies abnormal hearing Respiratory/Chest Respiratory/Chest: Denies cough, dyspnea or dyspnea on exertion Gastrointestinal Gastrointestinal: Denies abdominal pain Genitourinary Genitourinary: Denies change in urinary stream Musculoskeletal Musculoskeletal: Denies abnormal gait Integumentary Integumentary: Denies jaundice Neurologic Neurologic: Denies abnormal gait Psychiatric Psychiatric: Denies anxiety Endocrine Endocrinology: Denies flushing Vital Signs Vital Signs Vital Signs: 10/31/21 06:22 Temperature 98.7 F Temperature Source Temporal Pulse Rate 73 Respiratory Rate 16 Respiratory Pattern Normal Blood Pressure 106/67 Blood Pressure Mean 80 Blood Pressure Source Monitor Blood Pressure Position Semi-Fowlers Blood Pressure Location Left Arm Pulse Ox 100 Oxygen Delivery Method Room Air Weight Weight: 147 lb 11.355 oz Body Mass Index (BMI) 22.4 Physical Exam Const alert and oriented x3 Resp normal respiratory effort and normal air movement Cardio regular rate and regular rhythm GI soft to palpation, non-tender and non-distended Results Lab / Micro Data Labs: Laboratory Results - last 24 hr 10/31/21 06:18: Urine Test Negative Micro: Microbiology 10/31/21 06:13 Interface Orders SARS-CoV-2 Antigen (Rapid) - Final Assessment Plan Assessment/Plan (1) Encounter for insertion of venous access port: PLAN: Patient has left breast cancer and requires chest port for chemotherapy. I discussed right chest port placement with the patient in detail. I discussed the risks including but not limited to bleeding, infection, pneumothorax, line infection or DVT. Patient understands the risks and is willing to proceed. Jami Baker MD Pager: [facility] [address] [place] [address], [address] [place] [address] Office: 10/31/21 0709 <Electronically signed by Jami Baker MD> Cosigner Signature (if applicable): CC: Dr. Jami Baker MD; Dr. Braden Torres DO Signed Braden Torres DO Work Phone: Start: 10-25-2021 Us breast uni real time with image limited Paulina Null DO Work Phone: Start: 10-25-2021 JOSE A DIAG W GRETCHEN LT Paulina Null DO Work Phone: Start: 10-20-2021 Mri breast without&with contrast w/cad bilateral Amber [facility] Work Phone: Start: 10-04-2021 Bilateral mammography No Primary Care Physician Start: 10-04-2021 Ultrasonography of breast No Primary Care Physician Start: 04-13-2015 End: 04-13-2015 Small Bowel Series Only Comments: See Note; NOTES: [facility] Imaging Services [address] [place] [address] Radiology Report MR#: [id number] Acct: [id number] Name: STEPHEN BENNETT Rep #: [id number] : 1990 F 25 From: Cash Gonzalez MD PCP: Braden Torres DO Status: REG CLI Study: Small Bowel Series Only Date of Exam: 04/13/15 Exam# [id number] Ordering Dr: Aydin Early MD PROCEDURE: SMALL BOWEL SERIES DATE OF EXAMINATION: April 13, 2015. INDICATION: Female, 25 years old. The patient has a history of Crohn's disease. PHYSICIAN: Cash Gonzalez M.D. TECHNIQUE: Radiographic and fluoroscopic images were taken of the small intestine following the ingestion of barium. COMPARISON: Comparison is made with prior study dated February 04, 2014. FINDINGS: A preliminary supine KUB was obtained. There is an unremarkable bowel gas pattern. Fecal material is present throughout the colon. The osseous structures are normal. The patient orally ingested approximately 12 ounces of thin barium Normal visualized fundus, body, and antrum of the stomach. Normal duodenal bulb, C-loop, and proximal jejunum. Normal visualized mucosal folds of the jejunum and ileum. There are no demonstrated dilatations, strictures, or masses of the small intestine. There is no mass displacement of the loops of small intestine. There is a normal motor pattern with barium reaching the colon within approximately minutes. Spot films under fluoroscopic observation demonstrated a normal terminal ileum and ileocecal valve. IMPRESSION: Normal small bowel series. Electronically Signed: Cash Gonzalez MD at 10:46 EDT Tel [phone], Service support [phone], RAD/Small Bowel Series Only IMPRESSION: Normal small bowel series. Electronically Signed: Cash Gonzalez MD at 10:46 EDT Tel [phone], Service support [phone], CC: Braden Early Transportation Worker: Signed Braden Torres Start: 02-04-2014 End: 02-04-2014 Small Bowel Series Only Comments: See Note; NOTES: [facility] Imaging Services [address] [place] [address] Radiology Report MR#: [id number] Acct: [id number] Name: STEPHEN BENNETT Rep #: [id number] : 1990 F 23 From: Cash Gonzalez MD PCP: Braden Torres DO Status: [facility] Study: Small Bowel Series Only Date of Exam: 02/04/14 Exam# [id number] Ordering Dr: Aydin Early MD STUDY: SMALL BOWEL FOLLOW-THROUGH EXAMINATION. REASON FOR EXAM: Female, 23 years old. History of diarrhea. TECHNIQUE: The patient ingested barium. Multiple images of the small bowel follow-through examination were then obtained. COMPARISON: None. FINDINGS: A finishing tunnel operator film was obtained. The gas pattern is unremarkable. The small bowel transit is normal. There is evidence of cecal thickening with irregular appearance of the terminal ileum. There is evidence of separation of the small bowel loops in the right lower quadrant. There is deformity and edematous changes of the cecum. Findings are in keeping with the Crohn's disease. IMPRESSION: The findings are in keeping with Crohn's disease involving the terminal ileum as well as the cecum. Electronically Signed: Cash Gonzalez MD at 11:08 EDT Tel [phone], Service support [phone], CC: Braden Torres DO; Aydin Early Transportation Worker: Signed Braden Torres Extraction of wisdom tooth No PCP None Tonsillectomy Mikaela Mac Comment on above: 2008 Tonsillectomy No PCP None Viral antigen assay No Prima ry Care Physician Plan of Treatment Date Care Activity Detail Author Start: 2041 Zoster Vaccines (1 of 2) Zoster Vaccines (1 of 2) [facility] Start: 12-27-2028 Screening for malignant neoplasm of cervix Cervical Cancer Screening [facility] Start: 01-01-2027 Screening for malignant neoplasm of colon [facility] Start: 12-27-2026 Screening for malignant neoplasm of cervix [facility] Start: 01-06-2026 End: 01-06-2026 Patient encounter procedure 01/06/2026 2:45 PM EDT Office Visit OB/Gynecology [address] [place] [address] Cristopher Alaniz, STEAM SHOVELMAN.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 [address] [place] [address] Annual OB/Gynecology Comment on above: Annual Start: 01-05-2026 Screening for malignant neoplasm of cervix Cervical Cancer Screening [facility] Start: 03-18-2025 End: 03-18-2025 Patient encounter procedure 03/18/2025 11:15 AM EDT Office Visit Surgery Center [address] [place] [address] [place] [address] [place] [address] Flexible hysteroscope Surgery Center Comment on above: Flexible hysteroscope Start: 03-09-2025 Influenza vaccination [facility] Start: 02-16-2025 End: 02-16-2025 ambulatory [place] [facility] Laboratory Comment on above: OV/CBC/CMP 3MO OV/EARLY LABS* Start: 01-13-2025 End: 01-13-2025 Patient encounter procedure 01/13/2025 1:45 PM EDT Office Visit Reproductive Endocrinology Infertility [address] [place] [address] Camille Luo APRN.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 [address] [place] [address] sis Reproductive Endocrinology Infertility Comment on above: sis Start: 01-05-2025 End: 01-05-2025 Patient encounter procedure 01/05/2025 1:30 PM EDT Office Visit OB/Gynecology [address] [place] [address] Cristopher Alaniz APRN.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 [address] [place] [address] Annual OB/Gynecology Comment on above: Annual Start: 12-31-2024 End: 12-31-2024 Patient encounter procedure 12/31/2024 2:45 PM EDT Office Visit OB/Gynecology [address] [place], [place] [address] Cristopher Alaniz APRN.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 [address] [place] [address] Annual OB/Gynecology Comment on above: Annual Start: 12-28-2024 Yearly Adult Physical Yearly Adult Physical [facility] Start: 12-27-2024 Screening for malignant neoplasm of cervix Cervical Cancer Screening [facility] Start: 11-27-2024 End: 11-27-2024 ambulatory 11/27/2024 3:15 PM EDT Results Only [place] [facility] Draw Station [address] [place] [address] [place] [facility] Draw Station Start: 11-19-2024 End: 02-18-2025 RUBELLA IGG ANTIBODY RUBELLA IGG ANTIBODY Lab Routine Immunity to rubella determined by serologic test Expected: 11/19/2024, Expires: 02/18/2025 [facility] Work Phone: Comment on above: Expected: 11/19/2024, Expires: Start: 11-19-2024 End: 11-19-2025 US Uterus and Fallopian tubes W saline IU SONOHYSTEROGRAPHY (SIS) US [facility] Anc Imaging Routine Encounter for fertility testing Expected: 11/19/2024, Expires: 11/19/2025 [facility] Comment on above: Expected: 11/19/2024, Expires: Start: 11-19-2024 End: 02-18-2025 VARICELLA ZOSTER IGG VARICELLA ZOSTER IGG Lab Routine Immunity to varicella determined by serologic test Expected: 11/19/2024, Expires: 02/18/2025 [facility] Comment on above: Expected: 11/19/2024, Expires: Start: 10-20-2024 End: 10-20-2024 ambulatory 10/20/2024 3:50 PM EDT Visit (SP) Office Hematology/Oncology [address] [place] [address] Chantal Ayers DO [address] [place] [address] 3MO OV* Hematology/Oncology Comment on above: 3MO OV* Start: 10-09-2024 End: 10-09-2024 ambulatory 10/09/2024 3:30 PM EDT Infusion Center Hematology/Oncology [address] [place] [address] Wstr, Injection [place] [facility] [address] [place] [address] QMO LUPRON/AUTH EXP 04/09/25* LATEST APPT POSS Hematology/Oncology Comment on above: QMO LUPRON/AUTH EXP 04/09/25* LATEST APPT POSS Start: 09-22-2024 End: 09-22-2024 Patient encounter procedure 09/22/2024 10:15 AM EDT Office Visit Reproductive Endocrinology Infertility [address] [place] [address] Jam Foley MD [address] [place] [address] IVF consult Reproductive Endocrinology Infertility Comment on above: IVF consult Start: 09-12-2024 End: 09-12-2024 ambulatory 09/12/2024 2:45 PM EST Infusion Center Hematology/Oncology [address] [place] [address] Wstr, Injection [place] [facility] [address] [place] [address] QMO LUPRON/AUTH EXP 04/09/25* LATEST APPT POSS Hematology/Oncology Comment on above: QMO LUPRON/AUTH EXP 04/09/25* LATEST APPT POSS Start: 09-11-2024 End: 09-11-2024 Patient encounter procedure 09/11/2024 1:00 PM EST Office Visit [facility] [address] [place] [address] [place] [address] [place] [address] follow up after mri [facility] Comment on above: follow up after mri Start: 09-03-2024 End: 09-03-2024 Patient encounter procedure 09/03/2024 1:45 PM EST Office Visit Plastic Surgery [address] [place] [address] Bradford García MD [address] [place] [address] Consult Keloid scar Plastic Surgery Comment on above: Consult Keloid scar Start: 08-14-2024 End: 08-14-2024 ambulatory Hematology/Oncology Comment on above: QMO LUPRON/AUTH EXP 04/09/25* LATEST APPT POSS (SO)CBC/CMP(S)* Start: 07-21-2024 End: 07-21-2024 ambulatory 07/21/2024 11:30 AM EST Visit (SP) Office Hematology/Oncology [address] [place] [address] Chantal Ayers DO [address] [place] [address] 3 MO OV/LABS 07/17* Hematology/Oncology Comment on above: 3 MO OV/LABS 07/17* Start: 07-17-2024 End: 07-17-2024 ambulatory Hematology/Oncology Comment on above: QMO LUPRON/AUTH EXP 04/09/25* QMO LUPRON/AUTH EXP 04/09/25* LATEST APPT POSS (SO)CBC/CMP(S)* Start: 06-19-2024 End: 06-19-2024 ambulatory 06/19/2024 3:30 PM EST Infusion Center Hematology/Oncology [address] [place] [address] Wstr, Injection Ter[facility] [address] [place] [address] QMO LUPRON/AUTH EXP 04/09/25* Hematology/Oncology Comment on above: QMO LUPRON/AUTH EXP 04/09/25* Start: 06-09-2024 End: 06-09-2024 ambulatory 06/09/2024 4:10 PM EST Visit (SP) Office Hematology/Oncology [address] [place] [address] Chantal Ayers, DO [address] [place] [address] 3 MTH OV Hematology/Oncology Comment on above: 3 MTH OV Start: 05-22-2024 End: 05-22-2024 ambulatory [facility] Comment on above: (SO)CBC/CMP(S)* QMO LUPRON/AUTH EXP 04/09/25* Start: 04-28-2024 End: 04-28-2024 ambulatory 04/28/2024 2:50 PM EDT Visit (SP) Office Hematology/Oncology [address] [place] [address] Chantal Ayers, DO [address] [place] [address] 3 MTH OV* Hematology/Oncology Comment on above: 3 MTH OV* Start: 04-21-2024 End: 04-21-2024 ambulatory [facility] Comment on above: (SO)CBC/CMP(S)* QMO LUPRON/AUTH EXP 04/09/24* LATEST APPT POSS Start: 04-15-2024 End: 04-15-2024 ambulatory 04/15/2024 11:10 AM EDT Visit (SP) Office Hematology/Oncology [address] [place] [address] Chantal Ayers, DO [address] [place] [address] 3 MTH OV* Hematology/Oncology Comment on above: 3 MTH OV* Start: 03-24-2024 End: 03-24-2024 ambulatory [facility] Comment on above: (SO)CBC/CMP(S)* QMO LUPRON/AUTH EXP 04/09/24* LATEST APPT POSS Start: 03-09-2024 Covid-19 Vaccine () Covid-19 Vaccine ( season) [facility] Start: 03-09-2024 Covid-19 Vaccine ( season) Covid-19 Vaccine ( season) [facility] Start: 03-09-2024 Influenza vaccination [facility] Start: 02-25-2024 End: 02-25-2024 ambulatory [facility] Comment on above: (SO)CBC/CMP(S)* QMO LUPRON/AUTH EXP 04/09/24* LATEST APPT POSS Start: 02-06-2024 End: 02-06-2024 Follow-up encounter 02/06/2024 4:00 PM EDT [facility] Hematology/Oncology [address] [place] [address] Anabelle Stubbs MD [address] [place] [address] video follow up Hematology/Oncology Comment on above: video follow up Start: 01-28-2024 End: 01-28-2024 ambulatory [facility] Comment on above: (SO)CBC/CMP(S)* QMO LUPRON/AUTH EXP 04/09/24* LATEST APPT POSS Start: 01-08-2024 End: 01-08-2024 ambulatory 01/08/2024 1:00 PM EDT Visit (SP) Office Hematology/Oncology [address] [place], [place] [id number] Steff Hernandez APRN.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 [address] [place] [address] 3 MO OV* Hematology/Oncology Comment on above: 3 MO OV* Start: 01-01-2024 End: 01-01-2024 ambulatory [facility] Comment on above: (SO)CBC/CMP(S)* QMO LUPRON/AUTH EXP 04/09/24* LATEST APPT POSS - inj sched full for afternoon Start: 12-13-2023 End: 12-13-2023 Patient encounter procedure 12/13/2023 2:45 PM EDT Office Visit [facility] [address] [place] [address] [place] [address] [place] [address] Follow up [facility] Comment on above: Follow up Start: 12-07-2023 End: 12-07-2023 Patient encounter procedure 12/07/2023 3:30 PM EDT Office Visit General Surgery [address] [place] [address] [place] [address] [place] [address] Follow up- scheduling error General Surgery Comment on above: Follow up- scheduling error Start: 12-04-2023 End: 12-04-2023 ambulatory [place] [facility] Laboratory Comment on above: (SO)CBC/CMP(S)* QMO LUPRON/AUTH EXP 04/09/24* LATEST APPT POSS Start: 11-08-2023 End: 11-07-2024 Colonoscopy study Colonoscopy Screening; High Risk Patient; crohn's disease Endoscopy Routine Crohn's disease of both small and large intestine without complication (Multi) Expected: 11/08/2023, Expires: 11/07/2024 [facility] Work Phone: Comment on above: Expected: 11/08/2023, Expires: Start: 11-08-2023 End: 11-07-2024 Heterophile Ab [Presence] in Serum, Plasma or Blood by Rapid immunoassay Mononucleosis Screen Lab Routine Pharyngitis due to infectious mononucleosis Expected: 11/08/2023 (Approximate), Expires: 11/07/2024 [facility] Service [facility] Work Phone: Comment on above: Expected: 11/08/2023 (Approximate), Expi res: 11/07/2024 Start: 07-10-2023 End: 07-10-2024 Alkaline Phosphatase, Isoenzymes Alkaline Phosphatase, Isoenzymes Lab Routine Crohn's disease of both small and large intestine without complication (CMS/HCC) Elevated alkaline phosphatase level Expected: 07/10/2023 (Approximate), Expires: 07/10/2024 [facility] Work Phone: Comment on above: Expected: 07/10/2023 (Approximate), Expi res: 07/10/2024 Start: 07-10-2023 End: 07-10-2024 C reactive protein [Mass/volume] in Serum or Plasma C-Reactive Protein Lab Routine Crohn's disease of both small and large intestine without complication (CMS/HCC) Elevated alkaline phosphatase level Expected: 07/10/2023 (Approximate), Expires: 07/10/2024 [facility] Work Phone: Comment on above: Expected: 07/10/2023 (Approximate), Expi res: 07/10/2024 Start: 07-10-2023 End: 07-10-2024 CBC W Auto Differential panel - Blood CBC and Auto Differential Lab Routine Crohn's disease of both small and large intestine without complication (CMS/HCC) Elevated alkaline phosphatase level Expected: 07/10/2023 (Approximate), Expires: 07/10/2024 [facility] Work Phone: Comment on above: Expected: 07/10/2023 (Approximate), Expi res: 07/10/2024 Start: 07-10-2023 End: 07-10-2024 Comprehensive metabolic 2000 panel - Serum or Plasma Comprehensive Metabolic Panel Lab Routine Crohn's disease of both small and large intestine without complication (CMS/HCC) Elevated alkaline phosphatase level Expected: 07/10/2023 (Approximate), Expires: 07/10/2024 [facility] Work Phone: Comment on above: Expected: 07/10/2023 (Approximate), Expi res: 07/10/2024 Start: 07-10-2023 End: 07-10-2024 Gamma glutamyl transferase [Enzymatic activity/volume] in Serum or Plasma Gamma GT Lab Routine Crohn's disease of both small and large intestine without complication (CMS/HCC) Elevated alkaline phosphatase level Expected: 07/10/2023 (Approximate), Expires: 07/10/2024 [facility] Work Phone: Comment on above: Expected: 07/10/2023 (Approximate), Expi res: 07/10/2024 Start: 07-10-2023 End: 07-10-2024 MR Pancreas WO and W contrast IV MRCP pancreas w and wo IV contrast Imaging Routine Crohn's disease of both small and large intestine without complication (CMS/HCC) Elevated alkaline phosphatase level Expected: 07/10/2023 (Approximate), Expires: 07/10/2024 [facility] Service Area Work Phone: Comment on above: Expected: 07/10/2023 (Approximate), Expi res: 07/10/2024 Start: 07-09-2023 Behavioral Health Screening Behavioral Health Screening [facility] Start: 07-09-2023 Depression Assessment Depression Assessment [facility] Start: 03-09-2023 COVID-19 Vaccine () COVID-19 Vaccine () [facility] Start: 03-09-2023 Influenza vaccination [facility] Start: 01-23-2023 End: 03-25-2023 ALK PHOS ISOENZYM BL ALK PHOS ISOENZYM BL Lab Routine Elevated serum alkaline phosphatase level Expected: 01/23/2023, Expires: 03/25/2023 [facility] Work Phone: Comment on above: Expected: 01/23/2023, Expires: 3 Start: 12-12-2022 End: 02-11-2023 CBC W Auto Differential panel - Blood CBC + DIFF Lab STAT Thrombocytopenia (HCC) Expected: 12/12/2022, Expires: 02/11/2023 [facility] Work Phone: Comment on above: Expected: 12/12/2022, Expires: 3 Start: 08-01-2022 End: 10-01-2022 Ferritin [Mass/volume] in Serum or Plasma FERRITIN BLD Lab Routine 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 chemotherapy Expected: 08/01/2022, Expires: 10/01/2022 [facility] Work Phone: Comment on above: Expected: 08/01/2022, Expires: 3 Start: 08-01-2022 End: 10-01-2022 Iron and Iron binding capacity panel - Serum or Plasma IRON + TIBC Lab Routine 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 chemotherapy Expected: 08/01/2022, Expires: 10/01/2022 [facility] Work Phone: Comment on above: Expected: 08/01/2022, Expires: 3 Start: 07-27-2022 End: 07-06-2023 Echocardiography ECHO Cardiology Routine 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, estrogen receptor positive (HCC) Expected: 07/27/2022, Expires: 07/06/2023 [facility] Work Phone: Comment on above: Expected: 07/27/2022, Expires: 3 Start: 07-09-2022 DEPRESSION ASSESSMENT DEPRESSION ASSESSMENT [facility] Start: 06-26-2022 End: 07-10-2022 Influenza virus A and B RNA and SARS-CoV-2 (COVID-19) N gene panel - Respiratory specimen by KELTON with probe detection COVID WITH FLUA+B, ROUTINE Microbiology Routine Sore throat Suspected COVID-19 virus infection Expected: 06/26/2022, Expires: 07/10/2022 [facility] Work Phone: Comment on above: Expected: 06/26/2022, Expires: 3 Start: 06-13-2022 End: 08-13-2022 CBC W Auto Differential panel - Blood CBC + DIFF Lab STAT Malignant neoplasm of upper-outer quadrant of left breast in female, 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) Expected: 06/13/2022, Expires: 08/13/2022 [facility] Work Phone: Comment on above: Expected: 06/13/2022, Expires: 3 Start: 06-13-2022 End: 08-13-2022 Comprehensive metabolic 2000 panel - Serum or Plasma COMP METABOLIC PANEL Lab STAT Malignant neoplasm of upper-outer quadrant of left breast in female, 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) Expected: 06/13/2022, Expires: 08/13/2022 [facility] Work Phone: Comment on above: Expected: 06/13/2022, Expires: 3 Start: 06-13-2022 End: 08-13-2022 Magnesium [Mass/volume] in Serum or Plasma MAGNESIUM BLD Lab STAT Malignant neoplasm of upper-outer quadrant of left breast in female, 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) Expected: 06/13/2022, Expires: 08/13/2022 [facility] Work Phone: Comment on above: Expected: 06/13/2022, Expires: 3 Start: 05-16-2022 End: 07-16-2022 CBC W Auto Differential panel - Blood CBC + DIFF Lab STAT Malignant neoplasm of upper-outer quadrant of left breast in female, estrogen receptor positive (HCC) Expected: 05/16/2022, Expires: 07/16/2022 [facility] Work Phone: Comment on above: Expected: 05/16/2022, Expires: 3 Start: 05-16-2022 End: 07-16-2022 Comprehensive metabolic 2000 panel - Serum or Plasma COMP METABOLIC PANEL Lab STAT Malignant neoplasm of upper-outer quadrant of left breast in female, estrogen receptor positive (HCC) Expected: 05/16/2022, Expires: 07/16/2022 [facility] Work Phone: Comment on above: Expected: 05/16/2022, Expires: 3 Start: 05-16-2022 End: 07-16-2022 Magnesium [Mass/volume] in Serum or Plasma MAGNESIUM BLD Lab STAT Malignant neoplasm of upper-outer quadrant of left breast in female, estrogen receptor positive (HCC) Expected: 05/16/2022, Expires: 07/16/2022 [facility] Work Phone: Comment on above: Expected: 05/16/2022, Expires: 3 Start: 04-13-2022 Liquid based cervical cytology screening [facility] Work Phone: Start: 03-29-2022 End: 05-29-2022 CBC W Auto Differential panel - Blood CBC + DIFF Lab STAT Malignant neoplasm of upper-outer quadrant of left breast in female, 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) Expected: 03/29/2022, Expires: 05/29/2022 [facility] Work Phone: Comment on above: Expected: 03/29/2022, Expires: 2 Start: 03-29-2022 End: 05-29-2022 Comprehensive metabolic 2000 panel - Serum or Plasma COMP METABOLIC PANEL Lab STAT Malignant neoplasm of upper-outer quadrant of left breast in female, 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) Expected: 03/29/2022, Expires: 05/29/2022 [facility] Work Phone: Comment on above: Expected: 03/29/2022, Expires: 2 Start: 03-29-2022 End: 05-29-2022 Magnesium [Mass/volume] in Serum or Plasma MAGNESIUM BLD Lab STAT Malignant neoplasm of upper-outer quadrant of left breast in female, 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) Expected: 03/29/2022, Expires: 05/29/2022 [facility] Work Phone: Comment on above: Expected: 03/29/2022, Expires: 2 Start: 03-09-2022 End: 05-09-2022 CBC W Auto Differential panel - Blood [facility] Work Phone: Comment on above: Expected: 03/09/2022, Expires: 2 Start: 03-09-2022 Influenza vaccination [facility] Start: 11-09-2021 End: 01-09-2022 PROGESTERONE BLD PROGESTERONE BLD Lab STAT Primary female infertility Expected: 11/09/2021, Expires: 01/09/2022 [facility] Work Phone: Comment on above: Expected: 11/09/2021, Expires: 2 Start: 11-08-2021 End: 01-08-2022 CBC W Auto Differential panel - Blood CBC + DIFF Lab STAT 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, estrogen receptor positive (HCC) Expected: 11/08/2021, Expires: 01/08/2022 [facility] Work Phone: Comment on above: Expected: 11/08/2021, Expires: 2 Start: 11-08-2021 End: 01-08-2022 Comprehensive metabolic 2000 panel - Serum or Plasma COMP METABOLIC PANEL Lab Routine 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, estrogen receptor positive (HCC) Expected: 11/08/2021, Expires: 01/08/2022 [facility] Work Phone: Comment on above: Expected: 11/08/2021, Expires: 2 Start: 11-08-2021 End: 01-08-2022 Magnesium [Mass/volume] in Serum or Plasma MAGNESIUM BLD Lab Routine 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, estrogen receptor positive (HCC) Expected: 11/08/2021, Expires: 01/08/2022 [facility] Work Phone: Comment on above: Expected: 11/08/2021, Expires: 2 Start: 10-31-2021 Anesthesia access central venous circulation ANESTH VASCULAR ACCESS [facility] Work Phone: Start: 10-31-2021 Insj tunneled ctr vad w/subq port age 6 yr/> INSERT TUNNELED CV CATH [facility] Work Phone: Start: 10-31-2021 Patient discharge [facility] Work Phone: Start: 10-31-2021 Patient discharge [facility] Work Phone: Start: 10-12-2021 Patient referral [facility] Work Phone: Start: 07-09-2021 DEPRESSION ASSESSMENT DEPRESSION ASSESSMENT [facility] Start: 2021 HPV TESTING HPV TESTING [facility] Start: 2021 Screening for malignant neoplasm of cervix HPV Testing [facility] Start: 03-09-2021 FLU (#1) FLU (#1) [facility] Start: 07-12-2020 PAP TESTING PAP TESTING [facility] Start: 07-12-2020 Screening for malignant neoplasm of cervix Pap Testing [facility] Start: 12-23-2018 Patient Education Poison Jena, Sumac, and Cocoa: poison jena [facility] Work Phone: Start: 12-23-2018 Procedure Education Eprescribed prescriptions (G8553) [facility] Work Phone: Start: 12-23-2018 Provider Instructions for Treatment Follow up if no improvement or if symptoms worsen [facility] Work Phone: Start: 08-27-2017 DTaP/Tdap/Td Vaccines (7 - Td or Tdap) DTaP/Tdap/Td Vaccines (7 - Td or Tdap) [facility] Start: 08-27-2017 Urine microalbumin profile [facility] Start: 07-12-2016 Screening for malignant neoplasm of cervix Cervical Cancer Screening [facility] Start: 01-02-2014 Provider Instructions for Treatment [facility] Work Phone: Start: 10-03-2013 Provider Instructions for Treatment [facility] Work Phone: Start: 02-11-2013 Provider Instructions for Treatment Reviewed Lab [facility] Work Phone: Start: 01-28-2013 Provider Instructions for Treatment Follow up in 2 weeks [facility] Work Phone: Start: 07-19-2012 Glucose tolerance test gtt 3 specimens Glucose Tolerance Test (GTT) (41534) [facility] Work Phone: Comment on above: give 75 gram load Start: 2012 Screening for malignant neoplasm of cervix [facility] Start: 01-25-2011 Provider Instructions for Treatment [facility] Work Phone: Start: 01-25-2011 Leukocyte assmt fecal qual/semiquantitative LEUKOCYTE COUNT, FECAL (67041) [facility] Work Phone: Start: 01-25-2011 Cul bact stool aerobic isol salmonella&shigell CHATO CULTURE-STOOL (28688) [facility] Work Phone: Start: 01-25-2011 Culture bacterial any source anaerobic iso&id C-DIFFICILE, STOOL (72263) [facility] Work Phone: Start: 01-02-2011 Provider Instructions for Treatment [facility] Work Phone: Start: 12-20-2010 Provider Instructions for Treatment [facility] Work Phone: Start: 12-20-2010 Renal function panel Renal function Panel (67186) [facility] Work Phone: Start: 12-20-2010 Ova&parasites direct smears concentration & id OVA & PARASITE DIR SMEAR ([id number]) [facility] Work Phone: Start: 12-20-2010 Cul bact stool aerobic isol salmonella&shigell CHATO CULTURE-STOOL ([id number]) [facility] Work Phone: Start: 12-20-2010 Culture bacterial any source anaerobic iso&id C-DIFFICILE, STOOL ([id number]) [facility] Work Phone: Start: 12-20-2010 Leukocyte assmt fecal qual/semiquantitative LEUKOCYTE COUNT, FECAL ([id number]) [facility] Work Phone: Start: 2010 SHINGRIX VACCINE (1 of 2) SHINGRIX VACCINE (1 of 2) [facility] Start: 2009 Anxiety Screening Anxiety Screening [facility] Start: 2009 Depression Screening Depression Screening [facility] Start: 2009 HEPATITIS C SCREENING HEPATITIS C SCREENING [facility] Start: 2009 Hepatitis C screening Hepatitis C Screening [facility] Start: 2009 HIV SCREENING HIV SCREENING [facility] Start: 2007 MenB (1 of 2 - MenB 2-Dose Series) MenB (1 of 2 - MenB 2-Dose Series) [facility] Start: 2004 Varicella vaccination Varicella Vaccines (1 of 2 - 13+ 2-dose series) [facility] Start: 2003 Adult depression screening assessment DEPRESSION SCREENING [facility] Start: 2003 COVID-19 VACCINE (1) COVID-19 VACCINE (1) [facility] Start: 2001 Meningococcal B Vaccine: Consider Based On Risk (1 of 4 - Increased Risk) Meningococcal B Vaccine: Consider Based On Risk (1 of 4 - Increased Risk) [facility] Start: 2001 MENINGOCOCCAL B: Consider based on risk (1 of 4 - Increased Risk Bexsero 2-dose series) MENINGOCOCCAL B: Consider based on risk (1 of 4 - Increased Risk Bexsero 2-dose series) [facility] Start: 2001 MENINGOCOCCAL B: Consider based on risk (1 of 4 - Increased Risk) MENINGOCOCCAL B: Consider based on risk (1 of 4 - Increased Risk) [facility] Start: 1998 Tetanus Diphtheria and Pertussis Vaccines (1 - Tdap) Tetanus Diphtheria and Pertussis Vaccines (1 - Tdap) [facility] Start: 1997 PNEUMOCOCCAL (1 - PCV) PNEUMOCOCCAL (1 - PCV) [facility] Start: 1997 Pneumococcal vaccination [facility] Start: 04-22-1996 Varicella vaccination Varicella Vaccines (1 of 2 - 2-dose childhood series) [facility] Start: 1996 COVID-19 (1) COVID-19 (1) [facility] Start: 1996 COVID-19 VACCINE (#1) COVID-19 VACCINE (#1) [facility] Start: 1996 COVID-19 VACCINE (1) COVID-19 VACCINE (1) [facility] Start: 1992 Hepatitis B Surface Antibody Hepatitis B Surface Antibody [facility] Start: 1992 MMR (1 of 1 - Standard series) MMR (1 of 1 - Standard series) [facility] Start: 1992 Varicella (1 of 2 - 2-dose childhood series) Varicella (1 of 2 - 2-dose childhood series) [facility] Start: 1991 COVID-19 VACCINE (#1) COVID-19 VACCINE (#1) [facility] Start: 1991 Cyanocobalamin vitamin b-12 Vitamin B-12 [facility] Start: 1991 HIV screening HIV Screening [facility] Start: 1991 Lipid panel Lipid Panel [facility] Start: 1991 Screening for malignant neoplasm of colon [facility] Start: 1991 Screening for osteoporosis Bone Density Scan [facility] Start: 1991 TB Test TB Test [facility] Start: 1991 Vitamin D25-OH Vitamin D25-OH [facility] Start: 1991 Yearly Adult Physical Yearly Adult Physical [facility] ALK PHOS ISOENZYM BL ALK PHOS IS OENZYM BL Lab Routine Elevated serum alkaline phosphatase level 01/24/2023 9:06 AM EDT [facility] Work Phone: Alkaline phosphatase [Enzymatic activity/volume] in Serum or Plasma ALKALINE PHOSPHATASE Lab Routine Elevated serum alkaline phosphatase level 01/24/2023 9:06 AM EDT [facility] Work Phone: ALKALINE PHOSPHATASE ISOENZYMES (P) ALKALINE PHOSPHATASE ISOENZYMES (P) Lab Routine Elevated serum alkaline phosphatase level 01/24/2023 9:06 AM EDT [facility] Work Phone: End: 12-07-2022 Bx breast w/device 1st lesion magnetic res guid MRI BREAST BX WO/W IVCON LT Radiology Routine Malignant neoplasm of upper-outer quadrant of left breast in female, estrogen receptor positive (HCC) 1 Occurrences starting 11/07/2021 until 12/07/2022 [facility] Work Phone: Comment on above: 1 Occurrences starting 11/07/2021 until 12/07/2022 End: 11-24-2022 Bx breast w/device 1st lesion stereotactic guid JOSE A STEREO BX BREAST LT Radiology Routine Breast disorder 1 Occurrences starting 10/25/2021 until 11/24/2022 [facility] Work Phone: Comment on above: 1 Occurrences starting 10/25/2021 until 11/24/2022 End: 11-24-2022 Bx breast w/device 1st lesion ultrasound guid US BIOPSY BREAST LT Radiology Routine Breast disorder 1 Occurrences starting 10/25/2021 until 11/24/2022 [facility] Work Phone: Comment on above: 1 Occurrences starting 10/25/2021 until 11/24/2022 End: 11-22-2022 CBC W Auto Differential panel - Blood CBC + DIFF Lab STAT Malignant neoplasm of upper-outer quadrant of left breast in female, 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) Every 3 weeks for 6 Occurrences starting 11/22/2021 until 11/22/2022 [facility] Work Phone: Comment on above: Every 3 weeks for 6 Occurrences starting 11/22/2021 until 11/22/2022 End: 07-31-2023 CBC W Auto Differential panel - Blood CBC + DIFF Lab STAT 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, 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 Once per month for 12 Occurrences starting 07/31/2022 until 07/31/2023 [facility] Work Phone: Comment on above: Once per month for 12 Occurrences starti ng 07/31/2022 until 07/31/2023 End: 01-02-2024 Choriogonadotropin ( test) [Presence] in Urine POCT , urine manually resulted Point of Care Testing Routine Once (Lab) for 1 Occurrences starting 01/02/2024 until 01/02/2024 [facility] Work Phone: Comment on above: Once (Lab) for 1 Occurrences starting until 01/02/2024 Clostridioides diffi cile toxin genes [Presence] in Stool by KELTON with probe detection C. DIFFICILE PCR Lab Routine Diarrhea of presumed infectious origin Ordered: 02/07/2022 [facility] Work Phone: Comment on above: Ordered: 02/07/2022 Cobalamin (Vitamin B 12) [Mass/volume] in Serum or Plasma VITAMIN B12 BLOOD Lab Routine 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 chemotherapy Iron 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 dietary iron intake Iron malabsorption 02/13/2023 9:56 AM EDT [facility] Work Phone: End: 11-22-2022 Comprehensive metabolic 2000 panel - Serum or Plasma COMP METABOLIC PANEL Lab STAT Malignant neoplasm of upper-outer quadrant of left breast in female, 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) Every 3 weeks for 6 Occurrences starting 11/22/2021 until 11/22/2022 [facility] Work Phone: Comment on above: Every 3 weeks for 6 Occurrences starting 11/22/2021 until 11/22/2022 End: 07-31-2023 Comprehensive metabolic 2000 panel - Serum or Plasma COMP METABOLIC PANEL Lab STAT 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, 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 Once per month for 12 Occurrences starting 07/31/2022 until 07/31/2023 [facility] Work Phone: Comment on above: Once per month for 12 Occurrences starti ng 07/31/2022 until 07/31/2023 End: 11-19-2022 Diagnostic mammography computer-aided detcj [facility] DIAGNOSTIC LT Radiology Routine Malignant neoplasm of left female breast, unspecified estrogen receptor status, unspecified site of breast (HCC) 1 Occurrences starting 10/20/2021 until 11/19/2022 [facility] Work Phone: Comment on above: 1 Occurrences starting 10/20/2021 until 11/19/2022 End: 03-24-2023 ECG COMPLETE ECG COMPLETE ECG Routine Pre-operative examination 1 Occurrences starting 03/24/2022 until 03/24/2023 [facility] Work Phone: Comment on above: 1 Occurrences starting 03/24/2022 until 03/24/2023 End: 10-19-2022 Echocardiography ECHO Cardiology Routine Malignant neoplasm of upper-outer quadrant of left breast in female, estrogen receptor positive (HCC) 1 Occurrences starting 10/19/2021 until 10/19/2022 [facility] Work Phone: Comment on above: 1 Occurrences starting 10/19/2021 until 10/19/2022 End: 03-29-2023 Echocardiography ECHO Cardiology STAT Malignant neoplasm of upper-outer quadrant of left breast in female, 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) 1 Occurrences starting 03/29/2022 until 03/29/2023 [facility] Work Phone: Comment on above: 1 Occurrences starting 03/29/2022 until 03/29/2023 End: 10-10-2023 Echocardiography ECHO Cardiology Routine Malignant neoplasm of upper-outer quadrant of left breast in female, 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) 1 Occurrences starting 10/09/2022 until 10/10/2023 [facility] Work Phone: Comment on above: 1 Occurrences starting 10/09/2022 until 10/10/2023 End: 01-03-2024 Echocardiography ECHO Cardiology Routine HER2-positive carcinoma of left breast (HCC) 1 Occurrences starting 01/02/2023 until 01/03/2024 [facility] Work Phone: Comment on above: 1 Occurrences starting 01/02/2023 until 01/03/2024 End: 11-01-2022 Estradiol (E2) [Mass/volume] in Serum or Plasma ESTRADIOL-17B BLD Lab STAT HER2-positive carcinoma of left breast (HCC) Encounter for fertility preservation procedure Malignant neoplasm of upper-outer quadrant of left breast in female, estrogen receptor positive (HCC) Fertility testing Daily for 4 Occurrences starting 11/02/2021 until 11/01/2022 [facility] Work Phone: Comment on above: Daily for 4 Occurrences starting until 11/01/2022 Ferritin [Mass/volum e] in Serum or Plasma FERRITIN BLD Lab Routine 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 chemotherapy 08/03/2022 8:49 AM EST [facility] Work Phone: Ferritin [Mass/volum e] in Serum or Plasma FERRITIN BLD Lab Routine 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 chemotherapy 02/13/2023 9:56 AM EDT [facility] Work Phone: End: 10-31-2022 FOLLICULAR US WHI FOLLICULAR US WHI Anc Imaging Routine Encounter for fertility preservation procedure Daily for 5 Occurrences starting 10/31/2021 until 10/31/2022, 2 completed [facility] Work Phone: Comment on above: Daily for 5 Occurrences starting 022 until 10/31/2022, 2 completed End: 10-18-2021 Genetic Sendout: CancerNext Panel with RNA testing and BRCAPlus [facility] Work Phone: Comment on above: 1 Occurrences starting 10/18/2021 until 10/18/2021 End: 01-02-2024 Glucose [Mass/volume] in Serum or Plasma Glucose Lab Routine Once (Lab) for 1 Occurrences starting 01/02/2024 until 01/02/2024 [facility] Work Phone: Comment on above: Once (Lab) for 1 Occurrences starting until 01/02/2024 Iron and Iron bindin g capacity panel - Serum or Plasma IRON + TIBC Lab Routine 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 chemotherapy 08/03/2022 8:49 AM EST [facility] Work Phone: Iron and Iron bindin g capacity panel - Serum or Plasma IRON + TIBC Lab Routine 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 chemotherapy 02/13/2023 9:56 AM EDT [facility] Work Phone: End: 11-22-2022 Magnesium [Mass/volume] in Serum or Plasma MAGNESIUM BLD Lab STAT Malignant neoplasm of upper-outer quadrant of left breast in female, 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) Every 3 weeks for 6 Occurrences starting 11/22/2021 until 11/22/2022 [facility] Work Phone: Comment on above: Every 3 weeks for 6 Occurrences starting 11/22/2021 until 11/22/2022 End: 07-31-2023 Magnesium [Mass/volume] in Serum or Plasma MAGNESIUM BLD Lab STAT 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, 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 Once per month for 12 Occurrences starting 07/31/2022 until 07/31/2023 [facility] Work Phone: Comment on above: Once per month for 12 Occurrences starti ng 07/31/2022 until 07/31/2023 End: 01-02-2024 Moderate Sedation Moderate Sedation Procedures Routine Once for 1 Occurrences starting 01/02/2024 until 01/02/2024 [facility] Work Phone: Comment on above: Once for 1 Occurrences starting 01/02/20 until 01/02/2024 MR Breast - bilatera l WO and W contrast IV MRI BREAST WO/W IVCON BILATERAL Radiology Routine 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, estrogen receptor positive (HCC) 09/10/2023 4:26 PM EST [facility] Work Phone: End: 08-22-2025 MR Breast - bilateral WO and W contrast IV MRI BREAST WO/W IVCON BILATERAL Radiology Routine HER2-positive carcinoma of left breast (HCC) 1 Occurrences starting 07/23/2024 until 08/22/2025 [facility] Work Phone: Comment on above: 1 Occurrences starting 07/23/2024 until 08/22/2025 MR Breast - bilatera l WO and W contrast IV MRI BREAST WO/W IVCON BILATERAL Radiology Routine HER2-positive carcinoma of left breast (HCC) 09/01/2024 4:16 PM EST [facility] Work Phone: End: 09-10-2023 MRI BREAST 3D POST PROCESSING [facility] Comment on above: ONCE for 1 Occurrences starting 09/10/19 until 09/10/2023 End: 08-22-2025 MRI BREAST 3D POST PROCESSING MRI BREAST 3D POST PROCESSING Radiology Routine HER2-positive carcinoma of left breast (HCC) 1 Occurrences starting 07/23/2024 until 08/22/2025 [facility] Comment on above: 1 Occurrences starting 07/23/2024 until 08/22/2025 MRI BREAST 3D POST PROCESSING MRI BREAST 3D POST PROCESSING Radiology Routine HER2-positive carcinoma of left breast (HCC) 09/01/2024 4:17 PM EST [facility] End: 11-18-2022 Mri breast without&with contrast w/cad bilateral MRI BREAST WO/W IVCON BILAT Radiology Routine Invasive ductal carcinoma of breast, female, left (HCC) 1 Occurrences starting 10/19/2021 until 11/18/2022 [facility] Work Phone: Comment on above: 1 Occurrences starting 10/19/2021 until 11/18/2022 End: 11-24-2022 MRI CLIP PLACEMENT BREAST LEFT MRI CLIP PLACEMENT BREAST LEFT Radiology Routine Breast disorder 1 Occurrences starting 10/25/2021 until 11/24/2022 [facility] Work Phone: Comment on above: 1 Occurrences starting 10/25/2021 until 11/24/2022 End: 01-19-2026 OFFICE HYSTEROSCOPY OFFICE HYSTEROSCOPY Procedures Routine Fertility testing 1 Occurrences starting 01/19/2025 until 01/19/2026 [facility] Work Phone: Comment on above: 1 Occurrences starting 01/19/2025 until 01/19/2026 OUTSIDE SURG PATH SL PAN REVIEW OUTSIDE SURG PATH SLIDE REVIEW Lab Routine Ordered: 10/18/2021 [facility] Work Phone: Comment on above: Ordered: 10/18/2021 PAP TEST PAP TEST Lab Rou inocencia Screening for cervical cancer Encounter for screening for human papillomavirus (HPV) 12/28/2023 2:37 PM EDT [facility] Work Phone: PAP TEST PAP TEST Lab Rou inocencia Screening for cervical cancer Screening for HPV (human papillomavirus) History of breast cancer Ordered: 01/05/2025 [facility] Work Phone: Comment on above: Ordered: 01/05/2025 Path report.final Dx Spec [facility] Work Phone: Patient referral [facility] Work Phone: PROGESTERONE BLD PROGESTERONE BL D Lab STAT Primary female infertility 11/08/2021 9:23 AM EDT [facility] Work Phone: End: 01-02-2024 Pulse oximetry, continuous Pulse oximetry, continuous Respiratory Care Routine Continuous until discontinued starting 01/02/2024 [facility] Work Phone: Comment on above: Continuous until discontinued starting 0 01/02/2024 End: 01-02-2024 Pulse oximetry, spot Pulse oximetry, spot Respiratory Care Routine Once for 1 Occurrences starting 01/02/2024 until 01/02/2024 [facility] Work Phone: Comment on above: Once for 1 Occurrences starting 01/02/20 until 01/02/2024 End: 05-18-2023 Radiological examination surgical specimen JOSE A SURGICAL BREAST SPECIMEN LT Radiology Routine Malignant neoplasm of upper-outer quadrant of left breast in female, estrogen receptor positive (HCC) 1 Occurrences starting 04/17/2022 until 05/18/2023 [facility] Work Phone: Comment on above: 1 Occurrences starting 04/17/2022 until 05/18/2023 SURGICAL PATHOLOGY [facility] Work Phone: Comment on above: Release Upon Ordering for 1 Occurrences starting 11/01/2021, 1 completed SURGICAL PATHOLOGY [facility] Work Phone: Comment on above: Release Upon Ordering for 1 Occurrences starting 11/10/2021, 1 completed Surgical pathology study [facility] Work Phone: Comment on above: Release Upon Ordering for 1 Occurrences starting 01/02/2024 End: 02-22-2024 US ABD RIGHT UPPER QUADRANT US ABD RIGHT UPPER QUADRANT Radiology Routine Elevated serum alkaline phosphatase level 1 Occurrences starting 01/23/2023 until 02/22/2024 [facility] Work Phone: Comment on above: 1 Occurrences starting 01/23/2023 until 02/22/2024 End: 11-19-2022 Us breast uni real time with image limited US BREAST LTD LT Radiology Routine Malignant neoplasm of left female breast, unspecified estrogen receptor status, unspecified site of breast (HCC) 1 Occurrences starting 10/20/2021 until 11/19/2022 [facility] Work Phone: Comment on above: 1 Occurrences starting 10/20/2021 until 11/19/[address] [facility] Work Phone: [facility] Work Phone: [facility] Work Phone: [facility] Work Phone: [facility] Work Phone: [facility] Work Phone[facility] Work Phone: [facility] Immunizations Immunization Date Immunization Notes Care Provider [facility] 04-25-2021 influenza, injectabl e, quadrivalent, preservative free Cristopher 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 [employer]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 Work Phone: [facility] 04-25-2021 influenza virus vaccine, unspecified formulation Injection Wstr Work Phone: [facility] 08-27-2007 hepatitis A vaccine, unspecified formulation Valentina Katyovic [employer] Work Phone: [facility] Work Phone: 08-27-2007 human papilloma viru s vaccine, quadrivalent Valentina Jarochovic [employer] Work Phone: [facility] Work Phone: 08-27-2007 tetanus toxoid, reduced diphtheria toxoid, and acellular pertussis vaccine, adsorbed Valentina Elizabethochovic [employer] Work Phone: [facility] Work Phone: 04-22-2007 hepatitis B vaccine, pediatric or pediatric/adolescent dosage Valentina Jarochovic [employer] Work Phone: [facility] Work Phone: 04-22-2007 human papilloma viru s vaccine, quadrivalent Valentina Elizabethochovic [employer] Work Phone: [facility] Work Phone: 02-19-2007 hepatitis A vaccine, unspecified formulation Valentina Elizabethochovic [employer] Work Phone: [facility] Work Phone: 02-19-2007 human papilloma viru s vaccine, quadrivalent Valentina Mars [employer] Work Phone: [facility] Work Phone: 02-19-2007 Meningococcal, MCV4, unspecified conjugate formulation(groups A, C, Y and W-135) Valentina Mars [employer] Work Phone: [facility] Work Phone: 05-12-2004 hepatitis B vaccine, pediatric or pediatric/adolescent dosage Valentina Mars [employer] Work Phone: [facility] 04-08-2004 hepatitis B vaccine, pediatric or pediatric/adolescent dosage Valentina Mars [employer] Work Phone: [facility] 03-25-1996 diphtheria, tetanus toxoids and acellular pertussis vaccine Valentina Burnsovic [employer] Work Phone: [facility] 03-25-1996 measles, mumps and rubella virus vaccine Valentina Mars [employer] Work Phone: [facility] 03-25-1996 trivalent poliovirus vaccine, live, oral Valentina Mars [employer] Work Phone: [facility] 07-09-1995 Chicken Pox (disease) Abhijit Mars [employer] Work Phone: [facility] Work Phone: 09-09-1992 diphtheria, tetanus toxoids and pertussis vaccine Valentina Mars [employer] Work Phone: [facility] Work Phone: 09-09-1992 trivalent poliovirus vaccine, live, oral Valentina Mars [employer] Work Phone: [facility] 06-24-1992 haemophilus influenz ae type b vaccine, conjugate unspecified formulation Valentina Burnsdenise [employer] Work Phone: [facility] 06-24-1992 measles, mumps and rubella virus vaccine Valentina Burnsdenise [employer] IN[employer]ER Work Phone: [facility] 03-09-1992 tuberculin skin test ; purified protein derivative solution, intradermal Injection Ws Work Phone: [facility] 1991 diphtheria, tetanus toxoids and pertussis vaccine Valentina Jarochovic [employer] Work Phone: [facility] Work Phone: 1991 haemophilus influenz ae type b vaccine, conjugate unspecified formulation Valentina Jarochovic [employer] IN[employer]ER Work Phone: [facility] 1991 diphtheria, tetanus toxoids and pertussis vaccine Valentina Jarochovic [employer] IN[employer] Work Phone: [facility] Work Phone: 1991 haemophilus influenz ae type b vaccine, conjugate unspecified formulation Valentina Jarochovic [employer] IN[employer]ER Work Phone: [facility] 1991 trivalent poliovirus vaccine, live, oral Valentina Jarochovic [employer] Work Phone: [facility] 1991 diphtheria, tetanus toxoids and pertussis vaccine Valentina Jarochovic [employer] IN[employer]ER Work Phone: [facility] Work Phone: 1991 haemophilus influenz ae type b vaccine, conjugate unspecified formulation Valentina Jarochovic [employer]ER Work Phone: [facility] 1991 trivalent poliovirus vaccine, live, oral Valentina Jarochovic [employer] Work Phone: [facility] Payers Date Payer Category Payer [facility] (Private) [facility] [id number] 2023 Private Health Insurance MMO SUP [employer] PPO [id number] 2023 Unknown [id number] 2023 Self-pay [id number] 2021 Unknown MMO MMO [employer] [id number] 2021-Present [phone] [address] [place] [address] PPO [id number] 2021 Medicaid [employer] [place] [id number] 2021-Present [phone] [address] [address] [place] [address] Medicaid [id number] 2021 Medicaid [id number] 2021 Unknown 2016 Unknown [id number] 1991 Unknown [id number] 1991 Unknown [id number] 1991 Unknown [id number] 1243 [facility] ( and others) [facility] [id number] Unknown [id number] Unknown [id number] Unknown [id number] 462 Unknown [id number] 462 Unknown [id number] 462 Unknown [id number] 462 Unknown [id number] 462 Unknown [id number] 462 Unknown [id number] 462 Unknown [id number] 462 Unknown [id number] 462 Unknown [id number] 462 Social History Date Type Detail Facility Start: 01-23-2023 End: 01-02-2024 Caffeine Use [facility] Work Phone: Comment on above: 1-2 cups qd tony Parks Exercise History: Exercises occasionally. [facility] Work Phone: Start: 10-07-2021 End: 05-04-2023 Tobacco smoking status NHIS Unknown if ever smoked [facility] Work Phone: Start: 12-27-2013 None;Occasional [facility] Start: 12-27-2013 None [facility] Start: 12-27-2013 Non-smoker [facility] Start: 1990 Sex Assigned At Female C [facility] Start: 1990 Sex Assigned At Not on file C [facility] Start: 05-02-2011 End: 07-10-2023 Tobacco smoking status NHIS Never smoked tobacco [facility] Work Phone: Start: 10-11-2017 End: 01-04-2022 Alcohol intake Current drinker of alcohol (finding) [facility] Start: 04-28-2010 History SDOH Alcohol Comment Occasionally [facility] Start: 10-08-2021 End: 01-02-2024 Exposure to SARS-CoV-2 (event) Not sure [facility] Start: 10-14-2021 End: 11-19-2021 Exposure to SARS-CoV-2 (event) Unable to assess [facility] Exercise History: Exercise History: Compr ehensive Internal Medicine; [facility] Work Phone: Start: 01-26-2022 End: 01-02-2024 Alcohol intake Ex-drinker (finding) [facility] Start: 05-02-2011 End: 07-10-2023 Tobacco use and exposure Smokeless tobacco non-user [facility] Work Phone: Start: 01-23-2023 End: 01-02-2024 Tobacco use panel [facility] Start: 06-09-2012 End: 06-02-2022 National Score (1-100), lower number is lower risk 51 [facility] Start: 11-07-2021 Gender identity Identifies as female gender (finding) [facility] Start: 11-07-2021 Sexual orientation Heterosexual (kim kat) [facility] Medical Equipment Procedure Code Equipment Code Equipment Origin al Text Equipment Identifier Dates Insertion, vascular access port ([id number]) Vascular port/catheter [id number] FDA Start: 10-31-2021 Hourglass Clip [id number] Start: 11-10-2021 Matrix Alloderm Select Thk.4-2.4mm Thick Large Contour 21.5x10.7cm Tissue - [id number] Start: 04-17-2022 Implant Natrelle Inspira Moderate Profile Round Silicone Breast Smooth - [id number] Start: 04-17-2022 Matrix Alloderm Select Thk.4-2.4mm Thick Large Contour 21.5x10.7cm Tissue - [id number] Start: 04-17-2022 Matrix Alloderm Select Thk.4-2.4mm Thick Large Contour 21.5x10.7cm Tissue - [id number] Start: 04-17-2022 Matrix Alloderm Select Thk.4-2.4mm Thick Large Contour 21.5x10.7cm Tissue - [id number] Start: 04-17-2022 Implant Natrelle Inspira Moderate Profile Round Silicone Breast Smooth - [id number] Start: 04-17-2022 Goals Date Patient Goal Desired Activity /State Functional Status Date Assessment Result Facility 01-02-2024 [facility] Work Phone: 01-02-2024 [place] - suicide severity rating scale screener - recent [C-SSRS] [facility] Work Phone: 01-02-2024 Functional status [facility] Work Phone: 08-18-2014 Are you deaf, or do you have serious difficulty hearing No 08/18/2014 8:22 AM Kandy Aaron MA No [facility] 08-18-2014 Are you blind, or do you have serious difficulty seeing, even when wearing glasses No 08/18/2014 8:22 AM Kandy Aaron MA No [facility] 08-18-2014 Do you have serious difficulty walking or climbing stairs No 08/18/2014 8:22 AM Kandy Aaron MA No [facility] 08-18-2014 Do you have difficul ty dressing or bathing No 08/18/2014 8:22 AM Kandy Aaron MA No [facility] 08-18-2014 Because of a physica l, mental, or emotional condition, do you have difficulty doing errands alone such as visiting a physician's office or shopping No 08/18/2014 8:22 AM Kandy Aaron MA No [facility] Mental Status Date Assessment Result Facility 01-02-2024 Cognitive function finding Negat thomas 01/02/2024 9:30 AM EDT Chioma Gracia RN [facility] Work Phone: 10-31-2021 Cognitive function Voice/Name [facility] Work Phone: 08-18-2014 Because of a physica l, mental, or emotional condition, do you have serious difficulty concentrating, remembering, or making decisions No 08/18/2014 8:22 AM Kandy Aaron MA [facility] Clinical Notes 12-27-2012 to 05-15-2025 Janina Bearden MD - 03/18/2025 11:46 AM Janina Morgan MD - 03/18/2025 11:46 AM Ace Reynoso MD - 03/18/2025 11:45 AM Chantal Oswald DO - 10/20/2024 4:07 PM EDT Note Date & Type Note Facility 05-15-2025 Note HNO ID: [id number] Author: ALEXANDRIA CHEN RN Service: ? Author Type: Registered Nurse Type: Progress Notes Filed: 05/15/2025 16:20 Note Text: Latest Ref Rng 05/08/2025 05/15/2025 hCG Quantitative, Blood <5.0 mIU/mL 568.7 (H) 6,214.0 (H) Call to pt at cell number listed Informed pt of appropriate rise in HCG level. Pt will continue all hormones and RTC for scan on 05/22/25. Pt verbalized understanding Alexandria Chen RN May 15, 2025 4:16 PM [facility] 05-09-2025 Note HNO ID: [id number] Author: ALEXANDRIA CHEN RN Service: ? Author Type: Registered Nurse Type: Progress Notes Filed: 05/09/2025 08:44 Note Text: Latest Ref Rng 05/08/2025 hCG Quantitative, Blood <5.0 mIU/mL 568.7 (H) Call to pt at cell number listed and LM on VM Informed pt of positive HCG level, pt is . Pt will continue all hormones and repeat HCG level in 1 week. RTC on 05/15/25 Alexandria Chen RN May 09, 2025 8:41 AM [facility] 05-08-2025 Note HNO ID: [id number] Author: CASSIE COYNE RN Service: ? Author Type: Registered Nurse Type: Progress Notes Filed: 05/08/2025 15:32 Note Text: Phone call made to patient regarding HCG lab status (still processing) and to let her know to expect a call tomorrow regarding her results/plan. Pt verbalized understanding. Cassie Coyne RN May 08, 2025 3:29 PM [facility] 05-06-2025 Note HNO ID: [id number] Author: RADHA STORY APRN.KASH Service: ? Author Type: Nurse Practitioner Type: Progress Notes Filed: 05/06/2025 14:53 Note Text: [facility] Subjective Stephen Self is a 35 year old female. Patient presents with: Insect Bite: Tick bite R inner bicep x1 day HPI The patient is a 35-year-old female presenting for evaluation of a recent tick bite. Tick Bite: - Noticed a tick on her arm yesterday morning. - Tick was small and flat; removed it with tweezers. - Uncertain if the entire tick was removed; believes a piece of the head may still be embedded. - Unsure how long the tick was attached, but estimates less than 24 hours. - Denies the tick being engorged or having fed for a long time. - Observes a red mi'kmaq around the bite site, believes it is due to irritation. Possible : - Underwent IVF transfer on the . - Tested positive for twice; awaiting blood work on Sunday to confirm. - Concerned about the safety of taking doxycycline due to potential . - Fertility clinic is part of [facility]; has not yet received a response to her benchee message regarding the tick bite. Review of Systems Skin: (+) tick bite on arm, (+) localized erythema Objective BP 123/84 Pulse 84 Temp 37.1 ?C (98.7 ?F) Resp 18 Wt 70.2 kg (154 lb 12.2 oz) LMP 03/08/2025 (Exact Date) SpO2 99% BMI 23.53 kg/m? Physical Exam General: No acute distress. Skin: Erythema around tick bite on arm, small tick head possibly embedded. { 1. Tick bite of right upper arm, initial encounter (S40.810W) - Tick was likely attached for less than 24 hours; head may still be partially embedded. - Prophylactic doxycycline discussed, but patient may be following recent IVF transfer; awaiting confirmation from fertility clinic. - Consulted with fertility specialist, who agreed amoxicillin TID for 2 weeks as safe in early . - Start amoxicillin TID for 2 weeks; prescription sent. - Advised patient to monitor for symptoms of Lyme disease (headache, body aches, fever, fatigue) and follow up with primary care if symptoms develop. - Provided education on natural expulsion of retained tick parts and signs of infection. and Recording using [employer] software for draft documentation of the visit was discussed with the patient/authorized guest experience representative; all questions welcomed and answered. Patient/authorized guest experience representative agreed to proceed History and Record Review External record(s) reviewed: no prior records. Disposition The patient was discharged. Procedures [facility] 04-24-2025 Note HNO ID: [id number] Author: VANE BLACKMON MD Service: ? Author Type: Physician Type: Procedures Filed: 04/24/2025 14:29 Note Text: WHI LANEY TRANSFER PROCEDURE NOTE Date: 04/24/2025 Primary Proceduralist: Dr. Walker Churn Driller Helper(s): Helene Stephens MD Informed Consent: Consents and Labels Consent Signed: Informed Consent obtained and on the chart Labels Verified With Patient: Yes Indications: Stephen Self, is a 35 year old female here today for Embryo Transfer. [place] Protocol: UNIVERSAL PROTOCOL / SAFETY CHECKLIST Procedure to be Performed: Frozen Embryo Transfer Sign In: A Moment of CARE was completed. Appropriate PPE (Personal Protective Equipment) worn by all providers involved with the procedure. Special equipment not required. Patient/Surrogate Stated/Verified: Patient name, Date of , Relevant allergies, and The intended procedure Time Out: Relevant labs, photos, and/or imaging studies have been reviewed. Intended patient and procedure match the source document(s) (e.g. consent, HANDP, associated studies [imaging, pathology]) match the intended patient and procedure. Consent obtained and matches the intended procedure. Yes. Correct side/site has been marked and visible. Medications required for this procedure are verified. Fire risk assessed and is not applicable. Implants: are not applicable. Sign Out: Specimens not collected. All instruments, equipment, possible retained foreign bodies are accounted for. Yes. The post-procedure plan of care has been communicated to the patient or surrogate TRANSFER Transfer Date: 04/24/25 Transfer Procedure: Embryo Transfer Transfer Physician: Vane Blackmon M.D. Pre-Procedure Diagnosis: Infertility Post-Procedure Diagnosis: Infertility Source of embryos: Patient Total Thawed: 1 # of Embryos Transferred: 1 ASRM Guidelines: Recommended limits adhered to Catheter Type: Solis Ease of Transfer: Easy Direction: AV Depth (cm): 7 Distance from fundus (mm): 14 Tissue Status: For Autologous Use Only/ Not Evaluated for Infectious Substances Cell Stage: Grade: PGT?: Specimens: None I/primary surgeon/proceduralist performed the procedure with assistance. SIGNATURE: Helene Stephens MD PATIENT NAME: Stephen Self DATE: April 24, 2025 TIME: 2:22 PM I/primary surgeon/proceduralist performed the entire procedure. Evelyn Walker MD [facility] 04-24-2025 Note HNO ID: [id number] Author: EMI WEINBERG, ? Service: ? Author Type: Alteration Manager Type: Progress Notes Filed: 04/24/2025 13:03 Note Text: Embryo Transfer procedure performed. Detailed notes can be found in the paper chart in the [facility] - [employer] SPECIALIST Office. [facility] 04-17-2025 Note HNO ID: [id number] Author: RACHEL MACK, SHRUTHI Service: ? Author Type: Registered Nurse Type: Progress Notes Filed: 04/17/2025 22:50 Note Text: Call to patient at cell number listed. Did not answer, left VM. Informed patient of confirmed FET date on 04/24/25. Patient will start progesterone on 04/20/25. All instructions and sent to patient via mychart. Patient has been financially cleared for FET: yes Patient has finalized and signed thaw plan: yes Jackie Locke RN April 17, 2025 1:37 PM Reviewed by Rachel Mack RN April 17, 2025 1:42 PM [facility] 04-17-2025 Note HNO ID: [id number] Author: RACHEL MACK RN Service: ? Author Type: Registered Nurse Type: Progress Notes Filed: 04/17/2025 22:50 Note Text: The patient is here today for follicular ultrasound and blood work for FET # 1 The patient did not stay to meet with nursing. Ultrasound and blood will be reviewed by the physician, the flow sheet will be updated and instructions will be communicated to the patient. Jackie Locke RN April 17, 2025 10:30 AM Reviewed by Rachel Mack RN April 17, 2025 11:51 AM [facility] 04-10-2025 Note HNO ID: [id number] Author: YANIRA RIOS MD Service: ? Author Type: Physician Type: Progress Notes Filed: 04/10/2025 13:27 Note Text: LANEY Attending Physician Note: Ultrasound and lab results reviewed. Based on review of ultrasound and lab results, medication dose and follow up date plans provided. See cycle flowsheet for dosing details. Yanira Rios MD, DANISHA [facility] 04-10-2025 Note HNO ID: [id number] Author: ALEXANDRIA CHEN RN Service: ? Author Type: Registered Nurse Type: Progress Notes Filed: 04/10/2025 13:35 Note Text: The patient is here today for follicular ultrasound and blood work. The patient reports no problems or complaints. Ultrasound and blood will be reviewed by the physician, the flow sheet will be updated and instructions will be communicated to the patient. Patient did not stay to meet with nursing. Alexandria Chen RN April 10, 2025 8:23 AM Call to patient at cell number listed and LM on CM Informed pt start medications, see cycle flow sheet. RTC 04/17/25 at 7:30. Mychart sent with plan. Alexandria Chen RN April 10, 2025 1:33 PM [facility] 03-18-2025 Note Oscar Bearden MD 03/18/2025 12:11 PM HYSTEROSCOPY PROCEDURE (W NOTE) Date/Time: 03/18/2025 11:46 AM Performed by: Janina Bearden MD Authorized by: Ace Raymond MD Informed Consent Consent Obtained: Written [place] Protocol A moment to CARE was completed. SIGN IN Sign in communication not applicable due to emergent procedure. Personnel directly involved with the procedure wore the appropriate PPE. Special Equipment: N/A Patient/Surrogate Stated/Verified: Patient name, Date of , Relevant allergies and Intended procedure TIME OUT Relevant labs, photos, and/or imaging studies have been reviewed. Intended patient and procedure match source documents. Consent obtained and matches the intended procedure. Correct side/site marked and visible. No medications required for procedure. Fire risk assessed and interventions discussed. No implant(s) inserted. Indications: infertility Pre-Procedure Details: Urine Test: Negative Pre-medication given: none Procedure Details: Type of Hysteroscopy: diagnostic hysteroscopy Cervix was cleansed with chlorhexidine. A paracervical block was performed: no Tenaculum used: no Cervix was dilated: no Distension Media Type: saline Endocervical curettage: no Hysteroscope Type: rigid Endometrial Lining: normal Findings: intrauterine lesions Describe details of the findings (including size, number, and location): Small portion of the lower uterine segment mucosa folded over, no concern for polyps or fibroids Uterine Cavity: normal uterine cavity and tubal ostia visualized bilaterally Directed biopsies: no Polyp(s) extracted: no Foreign body removed: no Images captured: no Procedure complications: no Post-Procedure Details: Patient tolerance: Patient tolerated procedure but experienced pain Post-procedure complications: no Follow-Up: Patient will follow-up in office for results SIGN OUT No specimen collected. All instruments, equipment, possible retained foreign bodies accounted for. The post-procedure POC has been communicated to the patient or surrogate. [facility] 03-18-2025 Note HNO ID: [id number] Author: JANINA BEARDEN MD Service: ? Author Type: Fellow Type: Procedures Filed: 03/18/2025 12:11 Note Text: HYSTEROSCOPY PROCEDURE (W NOTE) Date/Time: 03/18/2025 11:46 AM Performed by: Janina Bearden MD Authorized by: Ace Raymond MD Informed Consent Consent Obtained: Written [place] Protocol A moment to CARE was completed. SIGN IN Sign in communication not applicable due to emergent procedure. Personnel directly involved with the procedure wore the appropriate PPE. Special Equipment: N/A Patient/Surrogate Stated/Verified: Patient name, Date of , Relevant allergies and Intended procedure TIME OUT Relevant labs, photos, and/or imaging studies have been reviewed. Intended patient and procedure match source documents. Consent obtained and matches the intended procedure. Correct side/site marked and visible. No medications required for procedure. Fire risk assessed and interventions discussed. No implant(s) inserted. Indications: infertility Pre-Procedure Details: Urine Test: Negative Pre-medication given: none Procedure Details: Type of Hysteroscopy: diagnostic hysteroscopy Cervix was cleansed with chlorhexidine. A paracervical block was performed: no Tenaculum used: no Cervix was dilated: no Distension Media Type: saline Endocervical curettage: no Hysteroscope Type: rigid Endometrial Lining: normal Findings: intrauterine lesions Describe details of the findings (including size, number, and location): Small portion of the lower uterine segment mucosa folded over, no concern for polyps or fibroids Uterine Cavity: normal uterine cavity and tubal ostia visualized bilaterally Directed biopsies: no Polyp(s) extracted: no Foreign body removed: no Images captured: no Procedure complications: no Post-Procedure Details: Patient tolerance: Patient tolerated procedure but experienced pain Post-procedure complications: no Follow-Up: Patient will follow-up in office for results SIGN OUT No specimen collected. All instruments, equipment, possible retained foreign bodies accounted for. The post-procedure POC has been communicated to the patient or surrogate. Janina Bearden MD [facility] 03-18-2025 Procedure note Associated Ord er(s): HYSTEROSCOPY PROCEDURE (W NOTE) Post-Procedure Diagnose(s): Fertility testing HYSTEROSCOPY PROCEDURE (W NOTE) Date/Time: 03/18/2025 11:46 AM Performed by: Janina Bearden MD Authorized by: Ace Raymond MD Informed Consent Consent Obtained: Written [place] Protocol A moment to CARE was completed. SIGN IN Sign in communication not applicable due to emergent procedure. Personnel directly involved with the procedure wore the appropriate PPE. Special Equipment: N/A Patient/Surrogate Stated/Verified: Patient name, Date of , Relevant allergies and Intended procedure TIME OUT Relevant labs, photos, and/or imaging studies have been reviewed. Intended patient and procedure match source documents. Consent obtained and matches the intended procedure. Correct side/site marked and visible. No medications required for procedure. Fire risk assessed and interventions discussed. No implant(s) inserted. Indications: infertility Pre-Procedure Details: Urine Test: Negative Pre-medication given: none Procedure Details: Type of Hysteroscopy: diagnostic hysteroscopy Cervix was cleansed with chlorhexidine. A paracervical block was performed: no Tenaculum used: no Cervix was dilated: no Distension Media Type: saline Endocervical curettage: no Hysteroscope Type: rigid Endometrial Lining: normal Findings: intrauterine lesions Describe details of the findings (including size, number, and location): Small portion of the lower uterine segment mucosa folded over, no concern for polyps or fibroids Uterine Cavity: normal uterine cavity and tubal ostia visualized bilaterally Directed biopsies: no Polyp(s) extracted: no Foreign body removed: no Images captured: no Procedure complications: no Post-Procedure Details: Patient tolerance: Patient tolerated procedure but experienced pain Post-procedure complications: no Follow-Up: Patient will follow-up in office for results SIGN OUT No specimen collected. All instruments, equipment, possible retained foreign bodies accounted for. The post-procedure POC has been communicated to the patient or surrogate. Janina Bearden MD [facility] Work Phone: 03-18-2025 Procedure note Associated Ord er(s): HYSTEROSCOPY PROCEDURE (W NOTE) Post-Procedure Diagnose(s): Fertility testing HYSTEROSCOPY PROCEDURE (W NOTE) Date/Time: 03/18/2025 11:46 AM Performed by: Janina Bearden MD Authorized by: Ace Raymond MD Informed Consent Consent Obtained: Written [place] Protocol A moment to CARE was completed. SIGN IN Sign in communication not applicable due to emergent procedure. Personnel directly involved with the procedure wore the appropriate PPE. Special Equipment: N/A Patient/Surrogate Stated/Verified: Patient name, Date of , Relevant allergies and Intended procedure TIME OUT Relevant labs, photos, and/or imaging studies have been reviewed. Intended patient and procedure match source documents. Consent obtained and matches the intended procedure. Correct side/site marked and visible. No medications required for procedure. Fire risk assessed and interventions discussed. No implant(s) inserted. Indications: infertility Pre-Procedure Details: Urine Test: Negative Pre-medication given: none Procedure Details: Type of Hysteroscopy: diagnostic hysteroscopy Cervix was cleansed with chlorhexidine. A paracervical block was performed: no Tenaculum used: no Cervix was dilated: no Distension Media Type: saline Endocervical curettage: no Hysteroscope Type: rigid Endometrial Lining: normal Findings: intrauterine lesions Describe details of the findings (including size, number, and location): Small portion of the lower uterine segment mucosa folded over, no concern for polyps or fibroids Uterine Cavity: normal uterine cavity and tubal ostia visualized bilaterally Directed biopsies: no Polyp(s) extracted: no Foreign body removed: no Images captured: no Procedure complications: no Post-Procedure Details: Patient tolerance: Patient tolerated procedure but experienced pain Post-procedure complications: no Follow-Up: Patient will follow-up in office for results SIGN OUT No specimen collected. All instruments, equipment, possible retained foreign bodies accounted for. The post-procedure POC has been communicated to the patient or surrogate. Janina Bearden MD Stephen Self presents for hysteroscopy. Indication: Infertility. Age: [age] year old LMP: Patient's last menstrual period was 03/08/2025 (exact date). Contraception: none test: negative VS: BP 124/71 Pulse 86 Resp 17 Ht 5' 8 (1.73m) Wt 152 lb 1.9 oz (69.0kg) SpO2 98% LMP 03/08/2025 BMI 23.13 kg/(m^2). UNIVERSAL PROTOCOL / SAFETY CHECKLIST Procedure to be Performed: hysteroscopy Sign In: A Moment of CARE was completed. Appropriate PPE (Personal Protective Equipment) worn by all providers involved with the procedure. Special equipment not required. Patient/Surrogate Stated/Verified: Patient name, Date of , Relevant allergies, and The intended procedure Time Out: Relevant labs, photos, and/or imaging studies have been reviewed. Intended patient and procedure match the source document(s) (e.g. consent, H&P, associated studies [imaging, pathology]) Consent obtained and matches the intended procedure. Correct side/site is not applicable. Medications required for this procedure are verified. are not applicable. Fire risk assessed and is not applicable. Implants: are not applicable. Sign Out: Specimens not collected. All instruments, equipment, possible retained foreign bodies are accounted for. Yes. The post-procedure plan of care has been communicated to the patient or surrogate. PROCEDURE: The cervix was prepped with betadine. The rigid hysteroscope was inserted vaginoscopically using saline for distention. The procedure was performed without difficulty and the patient tolerated it well. FINDINGS: uterus: normal cavity, tubal ostia seen bilaterally. There was a thickened mucosal fold at the posterior lower uterine segment. ASSESMENT: normal cavity PLAN: proceed with treatment plan Ace Raymond MD documented in this encounter [facility] 03-18-2025 Note HNO ID: [id number] Author: ACE RAYMOND MD Service: ? Author Type: Physician Type: Procedures Filed: 03/18/2025 11:49 Note Text: Stephen Self presents for hysteroscopy. Indication: Infertility. Age: [age] year old LMP: Patient's last menstrual period was 03/08/2025 (exact date). Contraception: none test: negative VS: BP 124/71 Pulse 86 Resp 17 Ht 5' 8 (1.73m) Wt 152 lb 1.9 oz (69.0kg) SpO2 98% LMP 03/08/2025 BMI 23.13 kg/(m2). UNIVERSAL PROTOCOL / SAFETY CHECKLIST Procedure to be Performed: hysteroscopy Sign In: A Moment of CARE was completed. Appropriate PPE (Personal Protective Equipment) worn by all providers involved with the procedure. Special equipment not required. Patient/Surrogate Stated/Verified: Patient name, Date of , Relevant allergies, and The intended procedure Time Out: Relevant labs, photos, and/or imaging studies have been reviewed. Intended patient and procedure match the source document(s) (e.g. consent, HANDP, associated studies [imaging, pathology]) Consent obtained and matches the intended procedure. Correct side/site is not applicable. Medications required for this procedure are verified. are not applicable. Fire risk assessed and is not applicable. Implants: are not applicable. Sign Out: Specimens not collected. All instruments, equipment, possible retained foreign bodies are accounted for. Yes. The post-procedure plan of care has been communicated to the patient or surrogate. PROCEDURE: The cervix was prepped with betadine. The rigid hysteroscope was inserted vaginoscopically using saline for distention. The procedure was performed without difficulty and the patient tolerated it well. FINDINGS: uterus: normal cavity, tubal ostia seen bilaterally. There was a thickened mucosal fold at the posterior lower uterine segment. ASSESMENT: normal cavity PLAN: proceed with treatment plan Ace Raymond MD [facility] 03-18-2025 Procedure note Stephen Erica Self presents for hysteroscopy. Indication: Infertility. Age: [age] year old LMP: Patient's last menstrual period was 03/08/2025 (exact date). Contraception: none test: negative VS: BP 124/71 Pulse 86 Resp 17 Ht 5' 8 (1.73m) Wt 152 lb 1.9 oz (69.0kg) SpO2 98% LMP 03/08/2025 BMI 23.13 kg/(m^2). UNIVERSAL PROTOCOL / SAFETY CHECKLIST Procedure to be Performed: hysteroscopy Sign In: A Moment of CARE was completed. Appropriate PPE (Personal Protective Equipment) worn by all providers involved with the procedure. Special equipment not required. Patient/Surrogate Stated/Verified: Patient name, Date of , Relevant allergies, and The intended procedure Time Out: Relevant labs, photos, and/or imaging studies have been reviewed. Intended patient and procedure match the source document(s) (e.g. consent, H&P, associated studies [imaging, pathology]) Consent obtained and matches the intended procedure. Correct side/site is not applicable. Medications required for this procedure are verified. are not applicable. Fire risk assessed and is not applicable. Implants: are not applicable. Sign Out: Specimens not collected. All instruments, equipment, possible retained foreign bodies are accounted for. Yes. The post-procedure plan of care has been communicated to the patient or surrogate. PROCEDURE: The cervix was prepped with betadine. The rigid hysteroscope was inserted vaginoscopically using saline for distention. The procedure was performed without difficulty and the patient tolerated it well. FINDINGS: uterus: normal cavity, tubal ostia seen bilaterally. There was a thickened mucosal fold at the posterior lower uterine segment. ASSESMENT: normal cavity PLAN: proceed with treatment plan Ace Raymond MD [facility] Work Phone: 01-19-2025 Telephone encounter Note SIS 01/13/25 Indication SIS, Fertility testing Impression Possible lower uterine segment polyp. Recommendations consider office hysteroscopy if clinically indicated. Menstrual History LMP on 01/04/2025 ======== Last Visit 09/22/24: Assessment- history of breast cancer, desire to use own uterus Plan- will await to see if periods restart (has been only about 6 weeks). If no period will check FSH and E2 and AMH in 3-6 months from now. Option of use of embryos vs timed IUI if gets regular periods discussed. Still has pain with intercourse. Will consider cavity evaluation not until at least December when hopefully she has had time to become exposed to estrogen again. Options of programmed vs natural FET discussed today. It will depend on her cycle resumption. FET sheet was singed today. I spent a total of 45 minutes on the date of the service which included preparing to see the patient, [id number] patient care, completing clinical documentation, and counseling and educating the patient/family/caregiver. Jam Foley MD ======== [facility] 01-19-2025 Miscellaneous Notes SIS 01/13/25 Indication SIS, Fertility testing Impression Possible lower uterine segment polyp. Recommendations consider office hysteroscopy if clinically indicated. Menstrual History LMP on 01/04/2025 ======== Last Visit 09/22/24: Assessment- history of breast cancer, desire to use own uterus Plan- will await to see if periods restart (has been only about 6 weeks). If no period will check FSH and E2 and AMH in 3-6 months from now. Option of use of embryos vs timed IUI if gets regular periods discussed. Still has pain with intercourse. Will consider cavity evaluation not until at least December when hopefully she has had time to become exposed to estrogen again. Options of programmed vs natural FET discussed today. It will depend on her cycle resumption. FET sheet was singed today. I spent a total of 45 minutes on the date of the service which included preparing to see the patient, [id number] patient care, completing clinical documentation, and counseling and educating the patient/family/caregiver. Jam Foley MD ======== documented in this encounter [facility] 01-15-2025 Note HNO ID: [id number] Author: CAMILLE LUO APRN.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 Service: ? Author Type: Nurse Practitioner Type: Procedures Filed: 01/15/2025 11:13 Note Text: Stephen Self is a 34 year old here for SIS. Referred by: Jam Foley [id number] [facility] [address] Chief Complaint: Fertility testing Endometrial Biopsy: No Ultrasound: No Hormonal therapy: No. LMP: Patient's last menstrual period was 01/04/2025 (exact date). Cycles: PERIOD REGULARITY: regular q 28-30 days Contraception: none HCG: negative UNIVERSAL PROTOCOL / SAFETY CHECKLIST Procedure to be Performed: SIS Sign In: A Moment of CARE was completed. Appropriate PPE (Personal Protective Equipment) worn by all providers involved with the procedure. Special equipment utilized . Patient/Surrogate Stated/Verified: Patient name, Date of , Relevant allergies, and The intended procedure Time Out: Relevant labs, photos, and/or imaging studies have been reviewed. Intended patient and procedure match the source document(s) (e.g. consent, HANDP, associated studies [imaging, pathology]) match the intended patient and procedure. Consent obtained and matches the intended procedure. Yes. Correct side/site is not applicable. Medications required for this procedure are not applicable. Fire risk assessed and is not applicable. Implants: are not applicable. Sign Out: Specimens not collected. All instruments, equipment, possible retained foreign bodies are accounted for. Yes. The post-procedure plan of care has been communicated to the patient or surrogate. PROCEDURE: EXTERNAL GENITALIA: Normal in appearance without lesions VAGINA: Normal in appearance without lesions Speculum placed into the vagina with excellent visualization of the cervix. Cervix cleaned with hibiclens. SIS catheter inserted into the uterus without difficulty. Speculum removed and 20mL sterile saline injected into the uterine cavity under ultrasound guidance. Procedure Summary: Patient tolerated procedure well. See ViewPoint for procedure results. Camille Luo APRN.KASH [facility] 01-05-2025 Note HNO ID: [id number] Author: CRISTOPHER ALANIZ APRN.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 Service: ? Author Type: Nurse Practitioner Type: Progress Notes Filed: 01/05/2025 14:05 Note Text: Clinical Practice Consultant offered: Patient declines. Stephen is a 34 year old who presents for an annual gynecologic exam without complaints. Stephen has a history of breast cancer ER+/VA+/HER2-positive breast cancer and had a double mastectomy. Working with [facility] - planning embryo transfer. Daughter will be 1 next month! Age at Menarche: 17 Still get period: Yes LMP: 01/04/2025 Menses: irregular menses, ranging from 33-41 days, 5 days of flow Menstrual flow: Heavy Bleeding amount bothersome: No Bleeding between periods: No Period symptoms: Acne, Breast tenderness, Cramps, Fecal incontinence , Mood change , and Pelvic pain Sexually active: Yes Contraception: Condom HPV vaccine: Yes, 02/2007, 04/2007, 08/2007 HPV:negative Last pap smear: 12/28/2023 normal History of abnormal pap: Yes, ASCUS 2013, 2012 Colposcopy: Yes: 08/2012 benign biopsies Leep: No. Cone biopsy: No. Bothersome pelvic pain: Yes Last mammogram: 09/2021 normal, yearly breat MRI August 2024 OB History Gravida0 Para0 Term0 Preterm0 AB0 Living0 SAB0 IAB0 Ectopic0 Multiple0 Live Births0 Comment: Menarche: 17; Age at 1st : n/a; Premenopausal Manager Insurance History LMP: 01/04/2025, Having periods Age at Menarche: Age at First : Age at Menopause: Manager Insurance History Comments: Sexual Activity: Yes; Male Contraception: Condom PAST MEDICAL HISTORY Diagnosis Date Abnormal Pap smear of cervix Anal fissure Anemia with crohns Cancer (HCC) breast cancer Crohn's disease (HCC) 07/09/2013 Hypoglycemia Iron 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 dietary iron intake 02/13/2023 Iron malabsorption (HCC) 02/13/2023 Malignant neoplasm of left breast (HCC) 09/2021 PMH - PAST MEDICAL HISTORY OF 04/08/2004 Normal color vision PMH - PAST MEDICAL HISTORY OF 12/23/2001 Pneumonia PAST SURGICAL HISTORY Procedure Laterality Date COLONOSCOPY 07/09/2013 EXTRACTION ERUPTED TOOTH/EXR age 17 PAST SURGICAL HISTORY OF 07/09/2006 Cyst removal in right wrist PAST SURGICAL HISTORY OF masectomy and reconstruction TONSILLECTOMY PRIMARY/SECONDARY AGE 13/> 10/07/2008 BREAST NEEDLE CORE BIOPSY LT Left 09/2021 FAMILY HISTORY Problem Relation Age of Onset Heart Maternal Grandmother triple by pass Breast Cancer Maternal Grandmother Coronary Artery Disease Paternal Grandfather Diabetes Paternal Grandfather other (DC) Paternal Grandfather age 45 Breast Cancer Other Maternal Great Aunt x2 SOCIAL HISTORY Social History Tobacco Use Smoking status: Never Smokeless tobacco: Never Vaping Use Vaping status: Never Used Substance Use Topics Alcohol use: Not Currently Comment: Occasionally Drug use: Never REVIEW OF SYSTEMS Abdomen: No abdominal pain, nausea, vomiting, diarrhea, or constipation. No bloating, early satiety, indigestion, or increased flatulence. Bladder: No dysuria, gross hematuria, urinary frequency, urinary urgency, or incontinence. Breast: No breast lumps, nipple d/c, overlying skin changes, redness or skin retraction. Allergies and current medication updated:Yes SENSITIVE EXAM: The sensitive examination was discussed with the Patient or Patient's Authorized Broom Machine Operator. As applicable, any other physician, advance practice provider, medical student, or other health professional student that will be observing or involved in the sensitive examination for educational or training purposes was discussed with the Patient or Authorized Broom Machine Operator. The Patient or Authorized Broom Machine Operator has agreed to proceed with the sensitive examination. (Sensitive examination includes inspection and/or palpation of the breasts, pelvis, prostate and anorectal regions). EXAM: BP 106/64 Ht 5' 9 (1.75m) Wt 154 lb (69.9kg) LMP 01/04/2025 BMI 22.73 kg/(m2). GENERAL: pleasant, female in no apparent distress HEENT: Normocephalic, atraumatic, mucus membranes moist, and no lesions NECK: Supple, full range of motion, no adenopathy, and thyroid normal DERMATOLOGY: Normal, without lesions, non-icteric, and non-hirsute BREAST: soft, non-tender, symmetric, no dominant mass, normal nipple-areolar complex, no lymphadenopathy, and no nipple discharge + double mastectomy, reconstruction noted CHEST: Normal inspiratory effort ABDOMEN: soft, non-tender, and no masses PELVIC: external genitalia normal, normal Bartholin's glands, urethra, [place]'s glands, + 0.5 cm raised skin tag noted to right labia majora (no changes per patient), no cervical lesions, good vaginal support, + menses, normal appearing perineal body and perianal region BIMANUAL: uterus normal size, shape and consistency, no adnexal masses, and non-tender RECTOVAGINAL: deferred. NEURO: alert and oriented x3,exam grossly non-focal EXTREM (more content not included)... [facility] 01-05-2025 History of Present illness Narrative Clinical Practice Consultant offered: Patient declines. Stephen is a 34 year old who presents for an annual gynecologic exam without complaints. Stephen has a history of breast cancer ER+/VA+/HER2-positive breast cancer and had a double mastectomy. Working with [facility] - planning embryo transfer. Daughter will be 1 next month! Age at Menarche: 17 Still get period: Yes LMP: 01/04/2025 Menses: irregular menses, ranging from 33-41 days, 5 days of flow Menstrual flow: Heavy Bleeding amount bothersome: No Bleeding between periods: No Period symptoms: Acne, Breast tenderness, Cramps, Fecal incontinence , Mood change , and Pelvic pain Sexually active: Yes Contraception: Condom HPV vaccine: Yes, 02/2007, 04/2007, 08/2007 HPV:negative Last pap smear: 12/28/2023 normal History of abnormal pap: Yes, ASCUS 2013, 2012 Colposcopy: Yes: 08/2012 benign biopsies Leep: No. Cone biopsy: No. Bothersome pelvic pain: Yes Last mammogram: 09/2021 normal, yearly breat MRI August 2024 OB History Gravida0 Para0 Term0 Preterm0 AB0 Living0 SAB0 IAB0 Ectopic0 Multiple0 Live Births0 Comment: Menarche: 17; Age at 1st : n/a; Premenopausal Manager Insurance History LMP: 01/04/2025, Having periods Age at Menarche: Age at First : Age at Menopause: Manager Insurance History Comments: Sexual Activity: Yes; Male Contraception: Condom PAST MEDICAL HISTORY Diagnosis Date Abnormal Pap smear of cervix Anal fissure Anemia with crohns Cancer (HCC) breast cancer Crohn's disease (HCC) 07/09/2013 Hypoglycemia Iron 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 dietary iron intake 02/13/2023 Iron malabsorption (HCC) 02/13/2023 Malignant neoplasm of left breast (HCC) 09/2021 PMH - PAST MEDICAL HISTORY OF 04/08/2004 Normal color vision PMH - PAST MEDICAL HISTORY OF 12/23/2001 Pneumonia PAST SURGICAL HISTORY Procedure Laterality Date COLONOSCOPY 07/09/2013 EXTRACTION ERUPTED TOOTH/EXR age 17 PAST SURGICAL HISTORY OF 07/09/2006 Cyst removal in right wrist PAST SURGICAL HISTORY OF masectomy and reconstruction TONSILLECTOMY PRIMARY/SECONDARY AGE 13/> 10/07/2008 BREAST NEEDLE CORE BIOPSY LT Left 09/2021 FAMILY HISTORY Problem Relation Age of Onset Heart Maternal Grandmother triple by pass Breast Cancer Maternal Grandmother Coronary Artery Disease Paternal Grandfather Diabetes Paternal Grandfather other (DC) Paternal Grandfather age 45 Breast Cancer Other Maternal Great Aunt x2 SOCIAL HISTORY Social History Tobacco Use Smoking status: Never Smokeless tobacco: Never Vaping Use Vaping status: Never Used Substance Use Topics Alcohol use: Not Currently Comment: Occasionally Drug use: Never REVIEW OF SYSTEMS Abdomen: No abdominal pain, nausea, vomiting, diarrhea, or constipation. No bloating, early satiety, indigestion, or increased flatulence. Bladder: No dysuria, gross hematuria, urinary frequency, urinary urgency, or incontinence. Breast: No breast lumps, nipple d/c, overlying skin changes, redness or skin retraction. Allergies and current medication updated:Yes SENSITIVE EXAM: The sensitive examination was discussed with the Patient or Patient's Authorized Broom Machine Operator. As applicable, any other physician, advance practice provider, medical student, or other health professional student that will be observing or involved in the sensitive examination for educational or training purposes was discussed with the Patient or Authorized Broom Machine Operator. The Patient or Authorized Broom Machine Operator has agreed to proceed with the sensitive examination. (Sensitive examination includes inspection and/or palpation of the breasts, pelvis, prostate and anorectal regions). EXAM: BP 106/64 Ht 5' 9 (1.75m) Wt 154 lb (69.9kg) LMP 01/04/2025 BMI 22.73 kg/(m^2). GENERAL: pleasant, female in no apparent distress HEENT: Normocephalic, atraumatic, mucus membranes moist, and no lesions NECK: Supple, full range of motion, no adenopathy, and thyroid normal DERMATOLOGY: Normal, without lesions, non-icteric, and non-hirsute BREAST: soft, non-tender, symmetric, no dominant mass, normal nipple-areolar complex, no lymphadenopathy, and no nipple discharge + double mastectomy, reconstruction noted CHEST: Normal inspiratory effort ABDOMEN: soft, non-tender, and no masses PELVIC: external genitalia normal, normal Bartholin's glands, urethra, [place]'s glands, + 0.5 cm raised skin tag noted to right labia majora (no changes per patient), no cervical lesions, good vaginal support, + menses, normal appearing perineal body and perianal region BIMANUAL: uterus normal size, shape and consistency, no adnexal masses, and non-tender RECTOVAGINAL: deferred. NEURO: alert and oriented x3,exam grossly non-focal EXTREMITIES: normal ASSESSMENT/PLAN: 1) Health maintenance: Pap done with HPV. Breast Imaging - continue care with breast specialist for yearly MRI management Nutrition, exercise and routine health maintenance exams reviewed. HPV vaccine: completed series 2) Contraception: none. Planning embryo transfer. 3) STD screening: Declined STD check. 4) Follow up one year or sooner as needed Cristopher Alaniz APRN.KASH documented in this encounter [facility] 11-19-2024 Telephone encounter Note Called patient to number listed, verified pt. Patient plans to proceed with FET. She started her periods back up in October and should be due soon for her next period Reviewed if periods stay normal she can call with her December period to schedule SIS. Once SIS is completed and she has had a couple months periods we can review with Dr. Foley to make a plan for a protocol. Reviewed checklist All questions answered. Vicki Call RN November 19, 2024 9:43 AM [facility] 11-19-2024 Miscellaneous Notes Called patient to number listed, verified pt. Patient plans to proceed with FET. She started her periods back up in October and should be due soon for her next period Reviewed if periods stay normal she can call with her December period to schedule SIS. Once SIS is completed and she has had a couple months periods we can review with Dr. Foley to make a plan for a protocol. Reviewed checklist All questions answered. Vicki Call RN November 19, 2024 9:43 AM Episode created and checklist updated. Will f/u with patient Vicki Call RN November 19, 2024 8:57 AM documented in this encounter [facility] 11-19-2024 Telephone encounter Note Episode created and checklist updated. Will f/u with patient Vicki Call RN November 19, 2024 8:57 AM [facility] 10-20-2024 Note HNO ID: [id number] Author: CHANTAL AYERS, Service: ? Author Type: Physician Type: Progress Notes Filed: 10/20/2024 17:01 Note Text: Oncologic problem(s): 1) HER2 positive breast cancer. HPI: The patient is a 34-year-old female with a past medical history significant for Crohn's disease (dx 2013), vitiligo and dysmenorrhea. She self discovered a mass in the left breast. She underwent a bilateral diagnostic mammogram on 10/04/2021. The breasts were noted to be extremely dense lowering the sensitivity of the mammography. The palpable abnormality however corresponded to a 1.2 x 1.4 cm spiculated nodule in the deep lateral axillary region of the breast. Microcalcifications were identified within it. Patient underwent ultrasound of the breast on the same day. In the left breast corresponding to the palpable abnormality there was a 1.3 x 1.3 x 1.1 heterogeneous hypoechoic solid mass with microcalcifications at the 1 o'clock position of the breast 8 cm from the nipple. Increased vascularity was observed. Patient was referred to Dr. Farrar. She underwent a left core needle biopsy on 10/07/2021. 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 VA variable 10 to 50%, moderate intensity. HER-2/chaz 3+ IHC. Regular menses. OCPs starting age 17. Stopped age 30 to try to get . Stopped trying to get because had flare of Crohn's. Generalized itching all over--started last April. Triggered by heat (showever). Injured coccyx snowboarding in high school. Hurting more lately. Crohn's under control with anti-inflammatory diet. ------ She underwent MRI of the breast on 10/20/2021. In the left breast in the upper outer quadrant there was an irregular mass with internal biopsy clip artifact representing biopsy-proven invasive carcinoma. There was an adjacent clumped nonmass enhancement that correlated to the adjacent suspicious focal asymmetry/architectural distortion with calcifications on the 10/04/2021 mammogram. Overall area of contiguous involvement in the upper outer quadrant (mass with adjacent non-mass enhancement) measured up to 2.7 cm in greatest dimension. He was noted that on a postbiopsy diagnostic mammogram that was available for comparison there was a possible group of indeterminate appearing calcifications in the upper outer quadrant posterior depth for which magnification views were recommended. Two additional abnormalities were identified in the breast--There is an additional irregular 0.5 x 0.4 x 0.4 cm (transverse by AP by cc dimensions) in the left upper-outer quadrant (series 7 image 75) which demonstrates heterogeneous enhancement with prominent central washout kinetics concerning for an additional site of involvement. There is an additional 0.4 x 0.4 x 0.4 cm mass upper CENTRAL breast (series 7 image 76) which also demonstrates heterogeneous enhancement with prominent central washout kinetics concerning for an additional site of involvement. LYMPH NODES: There are no suspicious axillary or internal mammary lymph nodes in either breast. RIGHT BREAST: There is no suspicious mass or area of non-mass enhancement identified within limitation of marked background parenchymal enhancement. ------- Underwent MRI guided biopsy with clip placement 11/01/2021. Pathology: A. Breast, left, upper outer aspect, calcifications, Twirl clip, stereotactic core biopsy: --Atypical ductal hyperplasia (ADH). --Microcalcifications are present in ducts adjacent to ADH. --Please see comment. B. Breast, left, at 10:00, 3 cm from the nipple, Q clip, ultrasound-guided core biopsy: --Fibroadenoma. Second MRI breast biopsy 11/10/2021 Pathology: A. 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 Previous therapy: 1) TCH-P. Completed cycle #6 on 03/14/2022. 2) Herceptin x1 dose pre-operatively 04/07/2022. 3) Underwent left nipple sparing mastectomy, left sentinel lymph node mapping and biopsy, right prophylactic nipple sparing mastectomy along with right breast reconstruction direct to implant with total acellular dermal matrix coverage and left breast reconstruction direct to implant with total acellular dermal matrix coverage on 04/17/2022. Pathology: Tumor bed: The tumor bed measures 40 x 40 mm in size, and shows variable cellularity with an average of 22% viable cells; of these viable cells 96.5% are ductal carcinoma in situ and 3.5% are invasive carcinoma. The invasive carcinoma measures 16 mm in greatest dimension. Margins: Margin Status for Invasive Carcinoma:All margins negative for invasive carcinom (more content not included)... [facility] 10-20-2024 History of Present illness Narrative Oncologic problem(s): 1) HER2 positive breast cancer. HPI: The patient is a 34-year-old female with a past medical history significant for Crohn's disease (dx 2013), vitiligo and dysmenorrhea. She self discovered a mass in the left breast. She underwent a bilateral diagnostic mammogram on 10/04/2021. The breasts were noted to be extremely dense lowering the sensitivity of the mammography. The palpable abnormality however corresponded to a 1.2 x 1.4 cm spiculated nodule in the deep lateral axillary region of the breast. Microcalcifications were identified within it. Patient underwent ultrasound of the breast on the same day. In the left breast corresponding to the palpable abnormality there was a 1.3 x 1.3 x 1.1 heterogeneous hypoechoic solid mass with microcalcifications at the 1 o'clock position of the breast 8 cm from the nipple. Increased vascularity was observed. Patient was referred to Dr. Farrar. She underwent a left core needle biopsy on 10/07/2021. 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 VA variable 10 to 50%, moderate intensity. HER-2/chaz 3+ IHC. Regular menses. OCPs starting age 17. Stopped age 30 to try to get . Stopped trying to get because had flare of Crohn's. Generalized itching all over--started last April. Triggered by heat (showever). Injured coccyx snowboarding in high school. Hurting more lately. Crohn's under control with anti-inflammatory diet. She underwent MRI of the breast on 10/20/2021. In the left breast in the upper outer quadrant there was an irregular mass with internal biopsy clip artifact representing biopsy-proven invasive carcinoma. There was an adjacent clumped nonmass enhancement that correlated to the adjacent suspicious focal asymmetry/architectural distortion with calcifications on the 10/04/2021 mammogram. Overall area of contiguous involvement in the upper outer quadrant (mass with adjacent non-mass enhancement) measured up to 2.7 cm in greatest dimension. He was noted that on a postbiopsy diagnostic mammogram that was available for comparison there was a possible group of indeterminate appearing calcifications in the upper outer quadrant posterior depth for which magnification views were recommended. Two additional abnormalities were identified in the breast--There is an additional irregular 0.5 x 0.4 x 0.4 cm (transverse by AP by cc dimensions) in the left upper-outer quadrant (series 7 image 75) which demonstrates heterogeneous enhancement with prominent central washout kinetics concerning for an additional site of involvement. There is an additional 0.4 x 0.4 x 0.4 cm mass upper CENTRAL breast (series 7 image 76) which also demonstrates heterogeneous enhancement with prominent central washout kinetics concerning for an additional site of involvement. LYMPH NODES: There are no suspicious axillary or internal mammary lymph nodes in either breast. RIGHT BREAST: There is no suspicious mass or area of non-mass enhancement identified within limitation of marked background parenchymal enhancement. Underwent MRI guided biopsy with clip placement 11/01/2021. Pathology: A. Breast, left, upper outer aspect, calcifications, Twirl clip, stereotactic core biopsy: --Atypical ductal hyperplasia (ADH). --Microcalcifications are present in ducts adjacent to ADH. --Please see comment. B. Breast, left, at 10:00, 3 cm from the nipple, Q clip, ultrasound-guided core biopsy: --Fibroadenoma. Second MRI breast biopsy 11/10/2021 Pathology: A. 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 Previous therapy: 1) TCH-P. Completed cycle #6 on 03/14/2022. 2) Herceptin x1 dose pre-operatively 04/07/2022. 3) Underwent left nipple sparing mastectomy, left sentinel lymph node mapping and biopsy, right prophylactic nipple sparing mastectomy along with right breast reconstruction direct to implant with total acellular dermal matrix coverage and left breast reconstruction direct to implant with total acellular dermal matrix coverage on 04/17/2022. Pathology: Tumor bed: The tumor bed measures 40 x 40 mm in size, and shows variable cellularity with an average of 22% viable cells; of these viable cells 96.5% are ductal carcinoma in situ and 3.5% are invasive carcinoma. The invasive carcinoma measures 16 mm in greatest dimension. Margins: Margin Status for Invasive Carcinoma:All margins negative for invasive carcinoma. Distance from Invasive Carcinoma to Closest Margin:1 mm Closest Margin(s) to Invasive Carcinoma: Superior Margin Status for DCIS:All margins negative for DCIS Distance from DCIS to Closest Margin:1.0 mm Closest Margin(s) to DCIS:Posterior Distance from DCIS to Superior Margin:1.5 mm A: Lymph nodes, left sentinel, x3 axillary, excision: - Four lymph nodes, negative for carcinoma (0/4). B: Breast, left, mastectomy: - Residual invasive ductal carcinoma, post neoadjuvant therapy, measuring 16 mm in greatest dimension. - Residual ductal carcinoma in situ, low and intermediate grades (nuclear grades 1 and 2) with comedonecrosis and microcalcifications. - Focal atypical ductal hyperplasia (ADH). - Margins are negative for carcinoma (distance to closest margin: 1 mm to superior margin). - Q clip, twirl clip, hourglass clip, and coil clip are identified. - Two intramammary lymph nodes, negative for carcinoma (0/2). - Biopsy site changes are present. - Fibroadenoma. - Background mammary parenchyma with fibroadenomatoid changes, fibrocystic changes, and microcalcifications. C: Breast, left, nipple, resection: - Mammary tissue, negative for carcinoma. D: Breast, right, mastectomy: - PENDING IHCs E: Breast, right, nipple, resection: - Benign mammary tissue. 4) Kadcyla (06/13/2022 -present). Dose reduced to 3 mg/kg cycle #5. Stopped after cycle #12 due to elevated liver enzymes and persistent thrombocytopenia. Presents for ongoing oncologic management. Previous therapy: 1) Lupron monthly. 2) Anastrozole. Started 09/10/2022. Interim history: Her [id number] acted as surrogate and delivered a healthy baby girl 9 months ago. Off AI and Lupron in order to get . Crohn's hasn't flared. Had colonoscopy summer 2022--in remission. Hot flashes getting less frequent--none at night now. No MS pain. PMH, medications and allergies personally reviewed by me today. Any changes documented in appropriate section. ROS: Constitutional: Denies episodes of fever and night sweats. Not significantly fatigued. Normal appetite. Neuro: Denies RAE, vertigo, dizziness and imbalance. Resp: Denies cough, wheeze and hemoptysis. Denies shortness of breath at rest. Denies HILL. CVS: Denies exertional chest pain, PND, orthopnea and LE edema. GI: Denies dysgeusia. Denies symptoms of stomatitis. Denies dysphagia and odynophagia. : Denies dysuria or gross hematuria. No symptoms of bladder outlet obstruction. Endo: Denies polyuria and polydipsia. Denies heat and cold intolerance. Musculoskeletal: See above. Derm: See HPI. Heme: Denies unusual bleeding and unexplained bruising. Psych: Normal mood. PHYSICAL EXAM: VITALS: Blood pressure 119/73, pulse 86, temperature 36.7 C (98 F), temperature source Temporal, weight 71.2 kg (157 lb), SpO2 98%. EYES: Sclerae are anicteric bilaterally. LYMPHATIC: There is no palpable cervical, supraclavicular, axillary adenopathy. RESPIRATORY: Inspiratory breath sounds are of normal intensity in all allen. CARDIOVASCULAR: Rhythm is regular. BREAST: Bilateral implants. No surrounding chest wall nodules. ABDOMEN: The abdomen is nondistended. Extremities: No swelling or edema. LABS: ASSESSMENT/PLAN: (C50.412, Z17.0) Malignant neoplasm of upper-outer quadrant of left breast in female, estrogen receptor positive (HCC) (primary encounter diagnosis) Assessment: -cT2 cN0 M0 ER/VA positive, HER2 overexpressed clinical stage IIA infiltrating ductal carcinoma of the left breast. -ypT1c pN0. -Significant family history of breast cancer. Several family members who were tested were negative for deleterious gene mutation. Patient's genetic testing through [facility] was negative (see scanned report 11/25/2021). -Adjuvant radiation was not recommended. -Dr. Stubbs's opinion much appreciated. Stopped anastrozole and leuprolide in order to conceive. Plan: -OV with labs in 3 months for close monitoring. -Will have imaging with MRI next August (if not ). (R74.8) Elevated alkaline phosphatase level Thrombocytopenia. Splenomegaly. Assessment: -Ultrasound of liver, gallbladder and biliary tree unremarkable. -Fractionation of alkaline phosphatase suggested bone source. -Bone previously scan negative. -AP appears to be trending lower. -No evidence of liver disease on ultrasound liver and spleen. -Platelet count stable. -No exam evidence of splenomegaly. Plan: -Monitor over time and follow up with Dr. Garza. Portions of this documentation were copied and pasted from my previous office visit note dated 07/21/2024 in order to provide a cohesive continuity of the history. The note has been reviewed and edited and updated as necessary. I spent a total of 20 minutes on the date of the service which included preparing to see the patient, [id number] patient care, completing clinical documentation, obtaining and/or reviewing separately obtained history, counseling and educating the patient/family/caregiver, communicating with other HCPs (not separately reported), and communicating results to the patient/family/caregiver. Chantal Ayers DO documented in this encounter [facility] 09-22-2024 History of Present illness Narrative Stephen Self is a 34 year old.here for followup. Created embryos in 2021. And had a from a surrogate in 2023. Here to see if can use remaining embryos. Has two embryos in storage. Here today to understand the process of replacing embryo back inside the uterus Original dx was berast cancer and since ER and VA positive was told would be best to not carry a . Her sister in law Donna Chinchilla 04/25/1990 carried the . Last took a medication in Jul 21 2024 Depo lupron was stopped. She was on it for almost 3 years and of course did not get any periods during that time. Also stopped the anastrazol on the same day. Plan is to restart both medications after she has completed childbearing and continue the meds until natural menopause. Was exposed to chemotherapy from november of 2021- mar 2022. Then double mastectomy and reconstruciton. Then placed on ketsyla (12 treatments) up till feb. Has not had menses since 2021 due to the above med. OB history 01/2024- girl via surrogate, 37 weeks Menstrual Hx: Menarche: 17 Cycle length: n/a Duration: n/a LMP was November 2021. Past Medical Hx: PAST MEDICAL HISTORY Diagnosis Date Abnormal Pap smear of cervix Anal fissure Anemia with crohns Cancer (HCC) breast cancer Crohn's disease (HCC) 07/09/2013 Hypoglycemia Iron 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 dietary iron intake 02/13/2023 Iron malabsorption 02/13/2023 Malignant neoplasm of left breast (HCC) 09/2021 PMH - PAST MEDICAL HISTORY OF 04/08/2004 Normal color vision PMH - PAST MEDICAL HISTORY OF 12/23/2001 Pneumonia Past Surgical Hx: PAST SURGICAL HISTORY Procedure Laterality Date COLONOSCOPY 07/09/2013 EXTRACTION ERUPTED TOOTH/EXR age 17 PAST SURGICAL HISTORY OF 07/09/2006 Cyst removal in right wrist PAST SURGICAL HISTORY OF masectomy and reconstruction TONSILLECTOMY PRIMARY/SECONDARY AGE 13/> 10/07/2008 US BREAST NEEDLE CORE BIOPSY LT Left 09/2021 Social History Tobacco Use Smoking status: Never Smokeless tobacco: Never Vaping Use Vaping status: Never Used Substance Use Topics Alcohol use: Not Currently Comment: Occasionally Drug use: Never Assessment- history of breast cancer, desire to use own uterus Plan- will await to see if periods restart (has been only about 6 weeks). If no period will check FSH and E2 and AMH in 3-6 months from now. Option of use of embryos vs timed IUI if gets regular periods discussed. Still has pain with intercourse. Will consider cavity evaluation not until at least December when hopefully she has had time to become exposed to estrogen again. Options of programmed vs natural FET discussed today. It will depend on her cycle resumption. FET sheet was singed today. I spent a total of 45 minutes on the date of the service which included preparing to see the patient, [id number] patient care, completing clinical documentation, and counseling and educating the patient/family/caregiver. Jam Foley MD documented in this encounter [facility] 09-22-2024 Note HNO ID: [id number] Author: JAM FOLEY MD Service: ? Author Type: Physician Type: Progress Notes Filed: 09/28/2024 10:44 Note Text: Stephen Self is a 34 year old.here for followup. Created embryos in 2021. And had a from a surrogate in 2023. Here to see if can use remaining embryos. Has two embryos in storage. Here today to understand the process of replacing embryo back inside the uterus Original dx was berast cancer and since ER and VA positive was told would be best to not carry a . Her sister in law Donna Chinchilla 04/25/1990 carried the . Last took a medication in Jul 21 2024 Depo lupron was stopped. She was on it for almost 3 years and of course did not get any periods during that time. Also stopped the anastrazol on the same day. Plan is to restart both medications after she has completed childbearing and continue the meds until natural menopause. Was exposed to chemotherapy from november of 2021- mar 2022. Then double mastectomy and reconstruciton. Then placed on ketsyla (12 treatments) up till feb. Has not had menses since 2021 due to the above med. OB history 01/2024- girl via surrogate, 37 weeks Menstrual Hx: Menarche: 17 Cycle length: n/a Duration: n/a LMP was November 2021. Past Medical Hx: PAST MEDICAL HISTORY Diagnosis Date Abnormal Pap smear of cervix Anal fissure Anemia with crohns Cancer (HCC) breast cancer Crohn's disease (HCC) 07/09/2013 Hypoglycemia Iron 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 dietary iron intake 02/13/2023 Iron malabsorption 02/13/2023 Malignant neoplasm of left breast (HCC) 09/2021 PMH - PAST MEDICAL HISTORY OF 04/08/2004 Normal color vision PMH - PAST MEDICAL HISTORY OF 12/23/2001 Pneumonia Past Surgical Hx: PAST SURGICAL HISTORY Procedure Laterality Date COLONOSCOPY 07/09/2013 EXTRACTION ERUPTED TOOTH/EXR age 17 PAST SURGICAL HISTORY OF 07/09/2006 Cyst removal in right wrist PAST SURGICAL HISTORY OF masectomy and reconstruction TONSILLECTOMY PRIMARY/SECONDARY AGE 13/> 10/07/2008 BREAST NEEDLE CORE BIOPSY LT Left 09/2021 Social History Tobacco Use Smoking status: Never Smokeless tobacco: Never Vaping Use Vaping status: Never Used Substance Use Topics Alcohol use: Not Currently Comment: Occasionally Drug use: Never Assessment- history of breast cancer, desire to use own uterus Plan- will await to see if periods restart (has been only about 6 weeks). If no period will check FSH and E2 and AMH in 3-6 months from now. Option of use of embryos vs timed IUI if gets regular periods discussed. Still has pain with intercourse. Will consider cavity evaluation not until at least December when hopefully she has had time to become exposed to estrogen again. Options of programmed vs natural FET discussed today. It will depend on her cycle resumption. FET sheet was singed today. I spent a total of 45 minutes on the date of the service which included preparing to see the patient, [id number] patient care, completing clinical documentation, and counseling and educating the patient/family/caregiver. Jam Foley MD [facility] 09-11-2024 History of Present illness Narrative REASON FOR TODAY'S VISIT: Patient presents with: Established Patient HISTORY of PRESENT ILLNESS: Stephen Self is a 34 year old female initially presented 11/2021 with a LEFT breast 2.7 cm IDC, NG 2 with DCIS @ 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 MRI showed 2 satellite lesions. 2nd look performed and [address] appeared normal. ER+VA+HER2+ [id number] Underwent neoadjuvant chemotherapy, TCHP with Dr. Ayers, Finished 03/10/22 Genetic testing was negative s/p a LEFT nipple sparing mastectomy, SLNB, RIGHT prophylactic nipple sparing mastectomy with pre-pec implant placement on 04/17/2022 Final pathology LEFT: Residual breast invasive carcinoma, 1.6 cm (closet margin < 0.2 mm to superior margin), 0/4 LN (2 intra-mammary nodes negative). ER+VA+HER2+ [id number] No PMRT was indicated HISTORY: Patient was last seen for a six month follow up on 12/07/2023. At that time, patient was following with Dr. Ayers and his team. She completed adjuvant Kadcycla (stopped after treatment # 12 d/t elevated LFT) and was doing well. Breast MRI results were reviewed and negative for evidence of malignancy. Patient was excited to be expecting a child (sister in law as her surrogate). In the interim, she underwent her annual Breast MRI in 08/2024, which was without evidence of recurrence. She is interested in having a 2nd child but becoming herself She has consulted with Dr. Stubbs regarding the PROMISE trial and intents to come off librado and arimidex to attempt pregrnancy She does have 2 embryos from her prior egg harvest. ROS: GENERAL: No weight loss, malaise or fevers HEENT: Negative for frequent or significant headaches, No changes in hearing or vision RESPIRATORY: Negative for cough, wheezing, or shortness of breath CARDIOVASCULAR: Negative for chest pain, leg swelling, or heart palpitations MUSCULOSKELETAL: Negative for joint pain or swelling, back pain or muscle pain, no upper extremity swelling or lymphedema ABD: no abdominal pain INTEGUMENTARY: Denies Scleroderma or Lupus. Denies chronic skin conditions. BREASTS:She denies any new palpable breast masses, skin changes, nipple discharge, nipple retraction, breast pain or masses in her axilla. All other reviewed and negative other than HPI. IMAGING: * * *Final Report* * * DATE OF EXAM: Sep 01 2024 4:17PM [facility] [place] 0788 - MRI BREAST 3D POST PROCESSING / PROCEDURE REASON: multiple diagnoses * * * * Physician Interpretation * * * * [place] [address] #[id number] - MRI BREAST WO/W IVCON [facility] #[id number] - MRI BREAST 3D POST PROCESSING HISTORY: 34 year-old patient seen for diagnostic evaluation of personal breast cancer history. High-risk screening MRI. History of LEFT breast cancer status post nipple sparing mastectomy. COMPARISON STUDIES: The present examination has been compared to prior imaging studies dated 11/10/2021 (mammogram), 03/07/2022 (MRI), 03/08/2022 (ultrasound), 03/08/2022 (mammogram) and 09/10/2023 (MRI). BREAST MRI: TECHNIQUE: FSPGR, T1 axial and coronal images were obtained as well as T2 axial images. A dynamic series of five FSPGR 3-D T1 weighted axial images of both breasts were obtained following intravenous administration of 9 cc gadolinium-based contrast. Fat suppression as well as subtraction imaging was performed both axially and coronally. A sagittal fat suppressed series was obtained as the last sequence in this study. The examination was reviewed utilizing the ROCKI software with computer-determined curve analysis. BREAST TISSUE: The fibroglandular tissue of the RIGHT breast is scattered. The LEFT reconstructed breast is fatty. BACKGROUND ENHANCEMENT: Mild background parenchymal enhancement. RIGHT BREAST: There is no suspicious mass, abnormal enhancement pattern, distortion or other significant abnormality in the Right breast. Right breast implant is intact without evidence rupture. LEFT RECONSTRUCTED BREAST: There is no suspicious mass, abnormal enhancement pattern, distortion or other significant abnormality in the Left reconstructed breast. Left breast implant is intact without evidence rupture. AXILLA AND OTHER: No abnormal axillary lymphadenopathy. IMPRESSION: No MRI evidence of malignancy in either breast. Status post LEFT breast mastectomy without evidence of recurrence. EXAMINATION: GEN alert and orientated, well nourished, calm Regional Lymph Nodes There is no concerning supraclavicular, infraclavicular or cervical lymphadenopathy. BREASTS: The patient was examined in the upright and supine position. RIGHT breast s/p mastectomy, implant soft, no dominant masses, nipple everted, no discharge, no skin changes RIGHT axilla no palpable axillary lymphadenopathy LEFT breast s/p mastectomy, implant soft, no dominant masses, nipple everted, no discharge, no skin changes LEFT axilla no palpable axillary lymphadenopathy ABD soft, non-distended, non-tender, no organomegaly EXT ambulated independently, good ROM of upper extremities, no evidence of lymphedema IMPRESSION: Stephen Self is a 34 year old female initially presented 11/2021 with a LEFT breast 2.7 cm IDC, NG 2 with DCIS @ 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 MRI showed 2 satellite lesions. 2nd look performed and [address] appeared normal. ER+VA+HER2+ [id number] Underwent neoadjuvant chemotherapy, TCHP with Dr. Ayers, Finished 03/10/22 Genetic testing was negative s/p a LEFT nipple sparing mastectomy, SLNB, RIGHT prophylactic nipple sparing mastectomy with pre-pec implant placement on 04/17/2022 Final pathology LEFT: Residual breast invasive carcinoma, 1.6 cm (closet margin < 0.2 mm to superior margin), 0/4 LN (2 intra-mammary nodes negative). ER+VA+HER2+ [id number] No PMRT was indicated Completed 12 cycles of adjuvant Kadcycla Currently on Lupron/AI PLAN: Discussed risks of recurrence and benefits of , she states she doesn't want to impose on her sister in law, but really desires another child. She will follow-up with Dr. Foley (Fertility Specialist) as scheduled, 09/22/2024. Ms. Self will follow-up with Dr. Ayers (Medical Oncologist) as scheduled, 10/20/2024. With plan for No evidence on disease recurrence at this appointment Discussed recommended continue annual MRI, but after delivery The importance of monthly self breast exam was stressed. Reviewed reasons to call including breast changes, masses, etc Ms. Self will follow-up with me 6 months post for a CBE. She has our names and numbers to stay in touch if she has any questions, concerns or problems in the interim. Paulina Null DO Breast Surgeon cc: Dr. Monika Ayers documented in this encounter [facility] 09-11-2024 Note HNO ID: [id number] Author: PAULINA NULL DO Service: ? Author Type: Physician Type: Progress Notes Filed: 09/15/2024 20:20 Note Text: REASON FOR TODAY'S VISIT: Patient presents with: Established Patient HISTORY of PRESENT ILLNESS: Stephen Self is a 34 year old female initially presented 11/2021 with a LEFT breast 2.7 cm IDC, NG 2 with DCIS @ 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 MRI showed 2 satellite lesions. 2nd look performed and [address] appeared normal. ER+VA+HER2+ [id number] Underwent neoadjuvant chemotherapy, TCHP with Dr. Ayers, Finished 03/10/22 Genetic testing was negative s/p a LEFT nipple sparing mastectomy, SLNB, RIGHT prophylactic nipple sparing mastectomy with pre-pec implant placement on 04/17/2022 Final pathology LEFT: Residual breast invasive carcinoma, 1.6 cm (closet margin < 0.2 mm to superior margin), 0/4 LN (2 intra-mammary nodes negative). ER+VA+HER2+ [id number] No PMRT was indicated HISTORY: Patient was last seen for a six month follow up on 12/07/2023. At that time, patient was following with Dr. Ayers and his team. She completed adjuvant Kadcycla (stopped after treatment # 12 d/t elevated LFT) and was doing well. Breast MRI results were reviewed and negative for evidence of malignancy. Patient was excited to be expecting a child (sister in law as her surrogate). In the interim, she underwent her annual Breast MRI in 08/2024, which was without evidence of recurrence. She is interested in having a 2nd child but becoming herself She has consulted with Dr. Stubbs regarding the PROMISE trial and intents to come off librado and arimidex to attempt pregrnancy She does have 2 embryos from her prior egg harvest. ROS: GENERAL: No weight loss, malaise or fevers HEENT: Negative for frequent or significant headaches, No changes in hearing or vision RESPIRATORY: Negative for cough, wheezing, or shortness of breath CARDIOVASCULAR: Negative for chest pain, leg swelling, or heart palpitations MUSCULOSKELETAL: Negative for joint pain or swelling, back pain or muscle pain, no upper extremity swelling or lymphedema ABD: no abdominal pain INTEGUMENTARY: Denies Scleroderma or Lupus. Denies chronic skin conditions. BREASTS:She denies any new palpable breast masses, skin changes, nipple discharge, nipple retraction, breast pain or masses in her axilla. All other reviewed and negative other than HPI. IMAGING: * * *Final Report* * * DATE OF EXAM: Sep 01 2024 4:17PM [facility] [place] 0788 - MRI BREAST 3D POST PROCESSING / PROCEDURE REASON: multiple diagnoses * * * * Physician Interpretation * * * * [place] [address] #[id number] - MRI BREAST WO/W IVCON [facility] #[id number] - MRI BREAST 3D POST PROCESSING HISTORY: 34 year-old patient seen for diagnostic evaluation of personal breast cancer history. High-risk screening MRI. History of LEFT breast cancer status post nipple sparing mastectomy. COMPARISON STUDIES: The present examination has been compared to prior imaging studies dated 11/10/2021 (mammogram), 03/07/2022 (MRI), 03/08/2022 (ultrasound), 03/08/2022 (mammogram) and 09/10/2023 (MRI). BREAST MRI: TECHNIQUE: FSPGR, T1 axial and coronal images were obtained as well as T2 axial images. A dynamic series of five FSPGR 3-D T1 weighted axial images of both breasts were obtained following intravenous administration of 9 cc gadolinium-based contrast. Fat suppression as well as subtraction imaging was performed both axially and coronally. A sagittal fat suppressed series was obtained as the last sequence in this study. The examination was reviewed utilizing the ROCKI software with computer-determined curve analysis. BREAST TISSUE: The fibroglandular tissue of the RIGHT breast is scattered. The LEFT reconstructed breast is fatty. BACKGROUND ENHANCEMENT: Mild background parenchymal enhancement. RIGHT BREAST: There is no suspicious mass, abnormal enhancement pattern, distortion or other significant abnormality in the Right breast. Right breast implant is intact without evidence rupture. LEFT RECONSTRUCTED BREAST: There is no suspicious mass, abnormal enhancement pattern, distortion or other significant abnormality in the Left reconstructed breast. Left breast implant is intact without evidence rupture. AXILLA AND OTHER: No abnormal axillary lymphadenopathy. IMPRESSION: No MRI evidence of malignancy in either breast. Status post LEFT breast mastectomy without evidence of recurrence. EXAMINATION: GEN alert and orientated, well nourished, calm Regional Lymph Nodes There is no concerning supraclavicular, infraclavicular or cervical lymphadenopathy. BREASTS: The patient was examined in the upright and supine position. RIGHT breast s/p mastectomy, implant soft, no dominant masses, nipple everted, no discharge, no sk (more content not included)... [facility] 09-03-2024 History of Present illness Narrative PLASTIC SURGERY ESTABLISHED PATIENT VISIT CC: follow up breast reconstruction HPI: The patient is still on immunotherapy (chemotherapy). Stephen Self is a 34 year old female with a history of left breast cancer. Last office visit 09/14/2022 and she presents today to discuss keloid scar where her port was removed in her right chest 1 year ago. Denies keloid scarring anywhere else. Reports constant itching at the area. Breast cancer Hx: history of left breast cancer Breast reconstruction history 04/17/22 Bilateral nipple sparing mastectomies with Dr. Null 04/17/22 Bilateral breast reconstruction with direct to implant placement and ADM Implants: 405 SRM Follows with Oncologist. Dr. Ayers Doing well Hx Radiation Therapy: No Hx Chemotherapy: Yes, completed 03/14/2022 Current therapy: 1) Lupron monthly. 2) Anastrozole. Started 09/10/2022. PAIN: No: 0 on a scale of 0 to 10 Hx of bleeding/clotting: denies No blood thinners Denies diabetes Breast MRI: 09/01/2024 MRI BREAST BILATERAL IMPRESSION: No MRI evidence of malignancy in either breast. Status post LEFT breast mastectomy without evidence of recurrence. REVIEW OF SYSTEMS PAIN ASSESSMENT: Negative for pain, history of chronic pain, or current treatment for a chronic pain condition. GENERAL: No weight loss, malaise or fevers Allergies: No Known Allergies PAST MEDICAL HISTORY Diagnosis Date Abnormal Pap smear of cervix Anal fissure Anemia with crohns Cancer (HCC) breast cancer Crohn's disease (HCC) 07/09/2013 Hypoglycemia Iron 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 dietary iron intake 02/13/2023 Iron malabsorption 02/13/2023 Malignant neoplasm of left breast (HCC) 09/2021 PMH - PAST MEDICAL HISTORY OF 04/08/2004 Normal color vision PMH - PAST MEDICAL HISTORY OF 12/23/2001 Pneumonia PAST SURGICAL HISTORY Procedure Laterality Date COLONOSCOPY 07/09/2013 EXTRACTION ERUPTED TOOTH/EXR age 17 PAST SURGICAL HISTORY OF 07/09/2006 Cyst removal in right wrist PAST SURGICAL HISTORY OF masectomy and reconstruction TONSILLECTOMY PRIMARY/SECONDARY AGE 13/> 10/07/2008 BREAST NEEDLE CORE BIOPSY LT Left 09/2021 Current Outpatient Medications on File Prior to Visit Medication Sig OTC PRODUCT Liver upplement 4 capsules once daily anastrozole (ARIMIDEX) 1 mg tablet Take 1 tablet by mouth once daily. (Patient not taking: Reported on 09/03/2024) LUPRON DEPOT 3.75 mg injection Inject 3.75 mg intramuscularly once every month. Once a month during chemotherapy (Patient not taking: Reported on 09/03/2024) No current facility-administered medications on file prior to visit Social History Tobacco Use Smoking status: Never Smokeless tobacco: Never Vaping Use Vaping status: Never Used Substance Use Topics Alcohol use: Not Currently Comment: Occasionally Drug use: Never There were no vitals filed for this visit. There is no height or weight on file to calculate BMI. PE Alert and oriented in NAD bilateral breast scar well healed No erythema or drainage noted bilateral breast soft, bilateral implants intact Raised red scar of the right upper chest/breast 2 x 1 x 0.3 cm - tender INFORMED CONSENT The risks, benefits and anticipated outcomes of the procedure, the risks and benefits of the alternatives to the procedure and the roles and tasks of the personnel to be involved were discussed with the patient and the patient consents to the procedure and agrees to proceed. I verify that I personally obtained the patient's consent. 1:1 ratio KENALOG 40mg/ml to 1% plain Lidocaine 0.25 cc injected to right chest scar PLAN: 1. Patient will return PRN for future injections. 2. Instructed patient to call the office with any questions or concerns regarding this procedure. Injections performed by Dr. García. ASSESSMENT/PLAN: hx of left breast cancer, s/p bilateral breast reconstruction with painful keloid scar Steroid injection to right mediport scar Discussed observation, steroid injections, scar excision (discussed this could result in another keloid), discussed laser therapy to the scar but likely will not be covered by insurance. Patient interested in sterid injection today Return to clinic 3 months I spent 30 minutes in the visit, with more than 50% of the total [id number] time of the visit in counseling / coordination of care. The patient is seen and examined by Dr. García and the following reflects his/her service. Scribed by Flakita Pat RN I agree with the Chief Complaint, ROS, and Past Histories independently gathered by the clinical legal support specialist and the remaining scribed note accurately describes my personal service to the patient. Provider Attestation: I, Bradford García MD, personally performed the services described in this documentation. All medical record entries made by the scribe were at my direction and in my presence. I have reviewed the chart and discharge instructions (if applicable) and agree that the record reflects my personal performance and is accurate and complete. Dr. Bradford García MD September 03, 2024 4:46 PM documented in this encounter [facility] 09-03-2024 Note HNO ID: [id number] Author: BRADFORD GARCÍA MD Service: ? Author Type: Physician Type: Progress Notes Filed: 09/03/2024 16:49 Note Text: PLASTIC SURGERY ESTABLISHED PATIENT VISIT CC: follow up breast reconstruction HPI: The patient is still on immunotherapy (chemotherapy). Stephen Self is a 34 year old female with a history of left breast cancer. Last office visit 09/14/2022 and she presents today to discuss keloid scar where her port was removed in her right chest 1 year ago. Denies keloid scarring anywhere else. Reports constant itching at the area. Breast cancer Hx: history of left breast cancer Breast reconstruction history 04/17/22 Bilateral nipple sparing mastectomies with Dr. Null 04/17/22 Bilateral breast reconstruction with direct to implant placement and ADM Implants: 405 SRM Follows with Oncologist. Dr. Ayers Doing well Hx Radiation Therapy: No Hx Chemotherapy: Yes, completed 03/14/2022 Current therapy: 1) Lupron monthly. 2) Anastrozole. Started 09/10/2022. PAIN: No: 0 on a scale of 0 to 10 Hx of bleeding/clotting: denies No blood thinners Denies diabetes Breast MRI: 09/01/2024 MRI BREAST BILATERAL IMPRESSION: No MRI evidence of malignancy in either breast. Status post LEFT breast mastectomy without evidence of recurrence. REVIEW OF SYSTEMS PAIN ASSESSMENT: Negative for pain, history of chronic pain, or current treatment for a chronic pain condition. GENERAL: No weight loss, malaise or fevers Allergies: No Known Allergies PAST MEDICAL HISTORY Diagnosis Date Abnormal Pap smear of cervix Anal fissure Anemia with crohns Cancer (HCC) breast cancer Crohn's disease (HCC) 07/09/2013 Hypoglycemia Iron 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 dietary iron intake 02/13/2023 Iron malabsorption 02/13/2023 Malignant neoplasm of left breast (HCC) 09/2021 PMH - PAST MEDICAL HISTORY OF 04/08/2004 Normal color vision PMH - PAST MEDICAL HISTORY OF 12/23/2001 Pneumonia PAST SURGICAL HISTORY Procedure Laterality Date COLONOSCOPY 07/09/2013 EXTRACTION ERUPTED TOOTH/EXR age 17 PAST SURGICAL HISTORY OF 07/09/2006 Cyst removal in right wrist PAST SURGICAL HISTORY OF masectomy and reconstruction TONSILLECTOMY PRIMARY/SECONDARY AGE 13/> 10/07/2008 BREAST NEEDLE CORE BIOPSY LT Left 09/2021 Current Outpatient Medications on File Prior to Visit Medication Sig OTC PRODUCT Liver upplement 4 capsules once daily anastrozole (ARIMIDEX) 1 mg tablet Take 1 tablet by mouth once daily. (Patient not taking: Reported on 09/03/2024) LUPRON DEPOT 3.75 mg injection Inject 3.75 mg intramuscularly once every month. Once a month during chemotherapy (Patient not taking: Reported on 09/03/2024) No current facility-administered medications on file prior to visit Social History Tobacco Use Smoking status: Never Smokeless tobacco: Never Vaping Use Vaping status: Never Used Substance Use Topics Alcohol use: Not Currently Comment: Occasionally Drug use: Never There were no vitals filed for this visit. There is no height or weight on file to calculate BMI. PE Alert and oriented in NAD bilateral breast scar well healed No erythema or drainage noted bilateral breast soft, bilateral implants intact Raised red scar of the right upper chest/breast 2 x 1 x 0.3 cm - tender INFORMED CONSENT The risks, benefits and anticipated outcomes of the procedure, the risks and benefits of the alternatives to the procedure and the roles and tasks of the personnel to be involved were discussed with the patient and the patient consents to the procedure and agrees to proceed. I verify that I personally obtained the patient's consent. 1:1 ratio KENALOG 40mg/ml to 1% plain Lidocaine 0.25 cc injected to right chest scar PLAN: 1. Patient will return PRN for future injections. 2. Instructed patient to call the office with any questions or concerns regarding this procedure. Injections performed by Dr. García. ASSESSMENT/PLAN: hx of left breast cancer, s/p bilateral breast reconstruction with painful keloid scar Steroid injection to right mediport scar Discussed observation, steroid injections, scar excision (discussed this could result in another keloid), discussed laser therapy to the scar but likely will not be covered by insurance. Patient interested in sterid injection today Return to clinic 3 months I spent 30 minutes in the visit, with more than 50% of the total [id number] time of the visit in counseling / coordination of care. The patient is seen and examined by Dr. García and the following reflects his/her service. Scribed by Flakita Pat RN I agree with the Chief Complaint, ROS, and Past Histories independently gathered by the clinical legal support specialist and the remaining scribed note accurately describes my personal service to the patient. Provider Attestation: I, Bradford García MD, personally performed the services de (more content not included)... [facility] 09-01-2024 History of Present illness Narrative Radiology Service Progress Note PATIENT NAME: Stephen Self DATE OF SERVICE: September 01, 2024 TIME: 3:45 PM PATIENT IDENTITY VERIFICATION COMPLETED USING TWO (2) IDENTIFIERS: Name and Date of confirmed by patient verbally and Name and Date of confirmed by identification band. FALL SCREENING: Has the patient had 2 falls in the last year or 1 fall with injury or currently using an Ambulatory Assistive Device (Walker, Cane, Wheelchair, Crutches, etc.)? No PATIENT GENDER DATA: Assigned female at . status: : No status: NO. PATIENT RELEVANT IMPLANT DATA REVIEWED: Yes PATIENT PRESENTS WITH AN IMPLANTABLE OR ATTACHED FOOD SERVICE UTILITY WORKER: No RADIOLOGY DEPARTMENT: MR; Exam(s) Completed: Chest: Breast PERIPHERAL IV DATA: Site assessment: Clean,Dry and Intact, Site disposition Discontinued SIGNED BY: RT Aaron(R) September 01, 2024 3:45 PM documented in this encounter [facility] 09-01-2024 Note HNO ID: [id number] Author: CALEB FLYNN RT(R) Service: Radiology Author Type: Technologist Type: Progress Notes Filed: 09/01/2024 15:46 Note Text: Radiology Service Progress Note PATIENT NAME: Stephen Self DATE OF SERVICE: September 01, 2024 TIME: 3:45 PM PATIENT IDENTITY VERIFICATION COMPLETED USING TWO (2) IDENTIFIERS: Name and Date of confirmed by patient verbally and Name and Date of confirmed by identification band. FALL SCREENING: Has the patient had 2 falls in the last year or 1 fall with injury or currently using an Ambulatory Assistive Device (Walker, Cane, Wheelchair, Crutches, etc.)? No PATIENT GENDER DATA: Assigned female at . status: : No status: NO. PATIENT RELEVANT IMPLANT DATA REVIEWED: Yes PATIENT PRESENTS WITH AN IMPLANTABLE OR ATTACHED FOOD SERVICE UTILITY WORKER: No RADIOLOGY DEPARTMENT: MR; Exam(s) Completed: Chest: Breast PERIPHERAL IV DATA: Site assessment: Clean,Dry and Intact, Site disposition Discontinued SIGNED BY: RT Aaron(R) September 01, 2024 3:[address] [facility] 09-01-2024 Nurse Note Radiology Service Progress Note DATE OF SERVICE: September 01, 2024 TIME: 3:38 PM PATIENT WEIGHT: 151 LBS PATIENT IDENTITY VERIFICATION COMPLETED USING TWO (2) STANDARD IDENTIFIERS: Name and Date of confirmed by patient verbally. FALL SCREENING: Has the patient had 2 falls in the last year or 1 fall with injury or currently using an Ambulatory Assistive Device (Walker, Cane, Wheelchair, Crutches, etc.)? No PATIENT GENDER DATA: Assigned female at . status: : No status: NO. ALLERGIES: Reviewed and unchanged CONTRAST ALLERGY: No EXAM: MRI - CONTRAST TYPE: GROUP II IV SITE: Ambulatory: A peripheral IV was started in the Left antecubital site with a Angio cath: 22 gauge. IV SITE APPEARANCE: Clean,Dry and Intact SIGNATURE: Gwen Viera RN PATIENT NAME: Stephen Self DATE: September 01, 2024 TIME: 3:38 PM [facility] 09-01-2024 Nurse Note Radiology Service Progress Note DATE OF SERVICE: September 01, 2024 TIME: 3:38 PM PATIENT WEIGHT: 151 LBS PATIENT IDENTITY VERIFICATION COMPLETED USING TWO (2) STANDARD IDENTIFIERS: Name and Date of confirmed by patient verbally. FALL SCREENING: Has the patient had 2 falls in the last year or 1 fall with injury or currently using an Ambulatory Assistive Device (Walker, Cane, Wheelchair, Crutches, etc.)? No PATIENT GENDER DATA: Assigned female at . status: : No status: NO. ALLERGIES: Reviewed and unchanged CONTRAST ALLERGY: No EXAM: MRI - CONTRAST TYPE: GROUP II IV SITE: Ambulatory: A peripheral IV was started in the Left antecubital site with a Angio cath: 22 gauge. IV SITE APPEARANCE: Clean,Dry and Intact SIGNATURE: Gwen Viera RN PATIENT NAME: Stephen Self DATE: September 01, 2024 TIME: 3:38 PM documented in this encounter [facility] 07-21-2024 Note HNO ID: [id number] Author: CHANTAL AYERS, DO Service: ? Author Type: Physician Type: Progress Notes Filed: 07/21/2024 17:13 Note Text: Oncologic problem(s): 1) HER2 positive breast cancer. HPI: The patient is a 33-year-old female with a past medical history significant for Crohn's disease (dx 2013), vitiligo and dysmenorrhea. She self discovered a mass in the left breast. She underwent a bilateral diagnostic mammogram on 10/04/2021. The breasts were noted to be extremely dense lowering the sensitivity of the mammography. The palpable abnormality however corresponded to a 1.2 x 1.4 cm spiculated nodule in the deep lateral axillary region of the breast. Microcalcifications were identified within it. Patient underwent ultrasound of the breast on the same day. In the left breast corresponding to the palpable abnormality there was a 1.3 x 1.3 x 1.1 heterogeneous hypoechoic solid mass with microcalcifications at the 1 o'clock position of the breast 8 cm from the nipple. Increased vascularity was observed. Patient was referred to Dr. Farrar. She underwent a left core needle biopsy on 10/07/2021. 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 VA variable 10 to 50%, moderate intensity. HER-2/chaz 3+ IHC. Regular menses. OCPs starting age 17. Stopped age 30 to try to get . Stopped trying to get because had flare of Crohn's. Generalized itching all over--started last April. Triggered by heat (showever). Injured coccyx snowboarding in high school. Hurting more lately. Crohn's under control with anti-inflammatory diet. ------ She underwent MRI of the breast on 10/20/2021. In the left breast in the upper outer quadrant there was an irregular mass with internal biopsy clip artifact representing biopsy-proven invasive carcinoma. There was an adjacent clumped nonmass enhancement that correlated to the adjacent suspicious focal asymmetry/architectural distortion with calcifications on the 10/04/2021 mammogram. Overall area of contiguous involvement in the upper outer quadrant (mass with adjacent non-mass enhancement) measured up to 2.7 cm in greatest dimension. He was noted that on a postbiopsy diagnostic mammogram that was available for comparison there was a possible group of indeterminate appearing calcifications in the upper outer quadrant posterior depth for which magnification views were recommended. Two additional abnormalities were identified in the breast--There is an additional irregular 0.5 x 0.4 x 0.4 cm (transverse by AP by cc dimensions) in the left upper-outer quadrant (series 7 image 75) which demonstrates heterogeneous enhancement with prominent central washout kinetics concerning for an additional site of involvement. There is an additional 0.4 x 0.4 x 0.4 cm mass upper CENTRAL breast (series 7 image 76) which also demonstrates heterogeneous enhancement with prominent central washout kinetics concerning for an additional site of involvement. LYMPH NODES: There are no suspicious axillary or internal mammary lymph nodes in either breast. RIGHT BREAST: There is no suspicious mass or area of non-mass enhancement identified within limitation of marked background parenchymal enhancement. ------- Underwent MRI guided biopsy with clip placement 11/01/2021. Pathology: A. Breast, left, upper outer aspect, calcifications, Twirl clip, stereotactic core biopsy: --Atypical ductal hyperplasia (ADH). --Microcalcifications are present in ducts adjacent to ADH. --Please see comment. B. Breast, left, at 10:00, 3 cm from the nipple, Q clip, ultrasound-guided core biopsy: --Fibroadenoma. Second MRI breast biopsy 11/10/2021 Pathology: A. 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 Previous therapy: 1) TCH-P. Completed cycle #6 on 03/14/2022. 2) Herceptin x1 dose pre-operatively 04/07/2022. 3) Underwent left nipple sparing mastectomy, left sentinel lymph node mapping and biopsy, right prophylactic nipple sparing mastectomy along with right breast reconstruction direct to implant with total acellular dermal matrix coverage and left breast reconstruction direct to implant with total acellular dermal matrix coverage on 04/17/2022. Pathology: Tumor bed: The tumor bed measures 40 x 40 mm in size, and shows variable cellularity with an average of 22% viable cells; of these viable cells 96.5% are ductal carcinoma in situ and 3.5% are invasive carcinoma. The invasive carcinoma measures 16 mm in greatest dimension. Margins: Margin Status for Invasive Carcinoma:All margins negative for invasive carcinom (more content not included)... [facility] 07-21-2024 History of Present illness Narrative Oncologic problem(s): 1) HER2 positive breast cancer. HPI: The patient is a 33-year-old female with a past medical history significant for Crohn's disease (dx 2014), vitiligo and dysmenorrhea. She self discovered a mass in the left breast. She underwent a bilateral diagnostic mammogram on 10/04/2021. The breasts were noted to be extremely dense lowering the sensitivity of the mammography. The palpable abnormality however corresponded to a 1.2 x 1.4 cm spiculated nodule in the deep lateral axillary region of the breast. Microcalcifications were identified within it. Patient underwent ultrasound of the breast on the same day. In the left breast corresponding to the palpable abnormality there was a 1.3 x 1.3 x 1.1 heterogeneous hypoechoic solid mass with microcalcifications at the 1 o'clock position of the breast 8 cm from the nipple. Increased vascularity was observed. Patient was referred to Dr. Farrar. She underwent a left core needle biopsy on 10/07/2021. 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 VA variable 10 to 50%, moderate intensity. HER-2/chaz 3+ IHC. Regular menses. OCPs starting age 17. Stopped age 30 to try to get . Stopped trying to get because had flare of Crohn's. Generalized itching all over--started last April. Triggered by heat (showever). Injured coccyx snowboarding in high school. Hurting more lately. Crohn's under control with anti-inflammatory diet. She underwent MRI of the breast on 10/20/2021. In the left breast in the upper outer quadrant there was an irregular mass with internal biopsy clip artifact representing biopsy-proven invasive carcinoma. There was an adjacent clumped nonmass enhancement that correlated to the adjacent suspicious focal asymmetry/architectural distortion with calcifications on the 10/04/2021 mammogram. Overall area of contiguous involvement in the upper outer quadrant (mass with adjacent non-mass enhancement) measured up to 2.7 cm in greatest dimension. He was noted that on a postbiopsy diagnostic mammogram that was available for comparison there was a possible group of indeterminate appearing calcifications in the upper outer quadrant posterior depth for which magnification views were recommended. Two additional abnormalities were identified in the breast--There is an additional irregular 0.5 x 0.4 x 0.4 cm (transverse by AP by cc dimensions) in the left upper-outer quadrant (series 7 image 75) which demonstrates heterogeneous enhancement with prominent central washout kinetics concerning for an additional site of involvement. There is an additional 0.4 x 0.4 x 0.4 cm mass upper CENTRAL breast (series 7 image 76) which also demonstrates heterogeneous enhancement with prominent central washout kinetics concerning for an additional site of involvement. LYMPH NODES: There are no suspicious axillary or internal mammary lymph nodes in either breast. RIGHT BREAST: There is no suspicious mass or area of non-mass enhancement identified within limitation of marked background parenchymal enhancement. Underwent MRI guided biopsy with clip placement 11/01/2021. Pathology: A. Breast, left, upper outer aspect, calcifications, Twirl clip, stereotactic core biopsy: --Atypical ductal hyperplasia (ADH). --Microcalcifications are present in ducts adjacent to ADH. --Please see comment. B. Breast, left, at 10:00, 3 cm from the nipple, Q clip, ultrasound-guided core biopsy: --Fibroadenoma. Second MRI breast biopsy 11/10/2021 Pathology: A. 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 Previous therapy: 1) TCH-P. Completed cycle #6 on 03/14/2022. 2) Herceptin x1 dose pre-operatively 04/07/2022. 3) Underwent left nipple sparing mastectomy, left sentinel lymph node mapping and biopsy, right prophylactic nipple sparing mastectomy along with right breast reconstruction direct to implant with total acellular dermal matrix coverage and left breast reconstruction direct to implant with total acellular dermal matrix coverage on 04/17/2022. Pathology: Tumor bed: The tumor bed measures 40 x 40 mm in size, and shows variable cellularity with an average of 22% viable cells; of these viable cells 96.5% are ductal carcinoma in situ and 3.5% are invasive carcinoma. The invasive carcinoma measures 16 mm in greatest dimension. Margins: Margin Status for Invasive Carcinoma:All margins negative for invasive carcinoma. Distance from Invasive Carcinoma to Closest Margin:1 mm Closest Margin(s) to Invasive Carcinoma: Superior Margin Status for DCIS:All margins negative for DCIS Distance from DCIS to Closest Margin:1.0 mm Closest Margin(s) to DCIS:Posterior Distance from DCIS to Superior Margin:1.5 mm A: Lymph nodes, left sentinel, x3 axillary, excision: - Four lymph nodes, negative for carcinoma (0/4). B: Breast, left, mastectomy: - Residual invasive ductal carcinoma, post neoadjuvant therapy, measuring 16 mm in greatest dimension. - Residual ductal carcinoma in situ, low and intermediate grades (nuclear grades 1 and 2) with comedonecrosis and microcalcifications. - Focal atypical ductal hyperplasia (ADH). - Margins are negative for carcinoma (distance to closest margin: 1 mm to superior margin). - Q clip, twirl clip, hourglass clip, and coil clip are identified. - Two intramammary lymph nodes, negative for carcinoma (0/2). - Biopsy site changes are present. - Fibroadenoma. - Background mammary parenchyma with fibroadenomatoid changes, fibrocystic changes, and microcalcifications. C: Breast, left, nipple, resection: - Mammary tissue, negative for carcinoma. D: Breast, right, mastectomy: - PENDING IHCs E: Breast, right, nipple, resection: - Benign mammary tissue. 4) Kadcyla (06/13/2022 -present). Dose reduced to 3 mg/kg cycle #5. Stopped after cycle #12 due to elevated liver enzymes and persistent thrombocytopenia. Presents for ongoing oncologic management. Current therapy: 1) Lupron monthly. 2) Anastrozole. Started 09/10/2022. Interim history: Her [id number] acted as surrogate and delivered a healthy baby girl [address] Stubbs at [facility] for virtual visit to discuss feasibility of holding endocrine therapy and conceiving. Crohn's hasn't flared. Had colonoscopy summer 2022--in remission. Hot flashes tolerable. No MS pain. PMH, medications and allergies personally reviewed by me today. Any changes documented in appropriate section. ROS: Constitutional: Denies episodes of fever and night sweats. Not significantly fatigued. Normal appetite. Neuro: Denies RAE, vertigo, dizziness and imbalance. Resp: Denies cough, wheeze and hemoptysis. Denies shortness of breath at rest. Denies HILL. CVS: Denies exertional chest pain, PND, orthopnea and LE edema. GI: Denies dysgeusia. Denies symptoms of stomatitis. Denies dysphagia and odynophagia. : Denies dysuria or gross hematuria. No symptoms of bladder outlet obstruction. Endo: Denies polyuria and polydipsia. Denies heat and cold intolerance. Musculoskeletal: See above. Derm: See HPI. Heme: Denies unusual bleeding and unexplained bruising. Psych: Normal mood. The sensitive examination was discussed with the Patient or Patient's Authorized Broom Machine Operator. As applicable, any other physician, advance practice provider, medical student, or other health professional student that will be observing or involved in the sensitive examination for educational or training purposes was discussed with the Patient or Authorized Broom Machine Operator. The Patient or Authorized Broom Machine Operator has agreed to proceed with the sensitive examination. (Sensitive examination includes inspection and/or palpation of the breasts, pelvis, prostate and anorectal regions) Alta Beckford LPN chaperoned. PHYSICAL EXAM: VITALS: Blood pressure 124/82, pulse 86, temperature 37.1 C (98.7 F), temperature source Temporal, weight 68.5 kg (151 lb), last menstrual period 11/25/2021, SpO2 100%. EYES: Sclerae are anicteric bilaterally. LYMPHATIC: There is no palpable cervical, supraclavicular, axillary adenopathy. RESPIRATORY: Inspiratory breath sounds are of normal intensity in all allen. CARDIOVASCULAR: Rhythm is regular. BREAST: Bilateral implants. No surrounding chest wall nodules. ABDOMEN: The abdomen is nondistended. Extremities: No swelling or edema. LABS: ASSESSMENT/PLAN: (C50.412, Z17.0) Malignant neoplasm of upper-outer quadrant of left breast in female, estrogen receptor positive (HCC) (primary encounter diagnosis) Assessment: -cT2 cN0 M0 ER/VA positive, HER2 overexpressed clinical stage IIA infiltrating ductal carcinoma of the left breast. -ypT1c pN0. -Significant family history of breast cancer. Several family members who were tested were negative for deleterious gene mutation. Patient's genetic testing through [facility] was negative (see scanned report 11/25/2021). -Tolerating Lupron and anastrozole well. -Adjuvant radiation was not recommended. -Dr. Stubbs's opinion much appreciated. Plan: -Hold monthly Lupron. -Hold anastrozole. -Will coordinate with Drs. Stubbs and Purvi. -MRI Breast due in August. -OV in 3 months. (R74.8) Elevated alkaline phosphatase level Thrombocytopenia. Splenomegaly. Assessment: -Ultrasound of liver, gallbladder and biliary tree unremarkable. -Fractionation of alkaline phosphatase suggested bone source. -Bone previously scan negative. -Her breeder service technician thought was from chemotherapy. AP trending lower. Assessment: -No evidence of liver disease on ultrasound liver and spleen. -Platelet count stable. Plan: -Monitor over time and follow up with Dr. Garza. Portions of this documentation were copied and pasted from my previous office visit note dated 07/2023 in order to provide a cohesive continuity of the history. The note has been reviewed and edited and updated as necessary. I spent a total of 30 minutes on the date of the service which included preparing to see the patient, completing clinical documentation, performing a medically appropriate examination, counseling and educating the patient/family/caregiver, communicating with other HCPs (not separately reported), and communicating results to the patient/family/caregiver. Chantal Ayers DO documented in this encounter [facility] 07-17-2024 Note HNO ID: [id number] Author: EM TORIBIO LPN Service: ? Author Type: LICENSED NURSE Type: Progress Notes Filed: 07/17/2024 15:43 Note Text: Lupron injection administered, right Buttock, tolerated well, no immediate adverse reactions noted. Em Toribio LPN [facility] 07-17-2024 History of Present illness Narrative Lupron injection administered, right Buttock, tolerated well, no immediate adverse reactions noted. Em Toribio LPN documented in this encounter [facility] 06-19-2024 Note HNO ID: [id number] Author: EM TORIBIO LPN Service: ? Author Type: LICENSED NURSE Type: Progress Notes Filed: 06/19/2024 15:46 Note Text: lupron injection administered, left buttock, tolerated well, no immediate adverse reactions noted. Em Toribio LPN [facility] 06-19-2024 History of Present illness Narrative lupron injection administered, left buttock, tolerated well, no immediate adverse reactions noted. Em Toribio LPN documented in this encounter [facility] 05-14-2024 Telephone encounter Note Prescription Refill Information The patient has been identified by name and date of : Yes Caregiver verified no other encounters exist for this prescription request: Yes Caregiver confirmed with patient/requestor that no other refills are due, in the near future, with this provider at this time: Yes The last office visit in the department: Does the patient have a future office visit with this provider/department: Yes Requested Prescriptions Pending Prescriptions Disp Refills anastrozole (ARIMIDEX) 1 mg tablet 90 tablet 3 Sig: Take 1 tablet by mouth once daily. Cassie Monreal May 14, 2024 9:52 AM [facility] 05-14-2024 Miscellaneous Notes Prescription Refill Information The patient has been identified by name and date of : Yes Caregiver verified no other encounters exist for this prescription request: Yes Caregiver confirmed with patient/requestor that no other refills are due, in the near future, with this provider at this time: Yes The last office visit in the department: Does the patient have a future office visit with this provider/department: Yes Requested Prescriptions Pending Prescriptions Disp Refills anastrozole (ARIMIDEX) 1 mg tablet 90 tablet 3 Sig: Take 1 tablet by mouth once daily. Cassie Monreal May 14, 2024 9:52 AM documented in this encounter [facility] 05-05-2024 History of Present illness Narrative CC: Patient presents with: Sinus Problem: sinus pressure, drainage, cough, headache x 8 days HPI: Stephen Self is a 34 year old female who presents to the office with complaint of head congestion, sore throat, and sinus symptoms for 8 days. Symptoms are staying the same. Associated symptoms includes headache. Denies wheezing, dyspnea, nausea, vomiting , and diarrhea. Treatments tried include nothing so far. with no relief of symptoms. Sick contacts: unknown. History of asthma, frequent episodes of bronchitis, chronic bronchitis, bronchiectasis or COPD: No Smoker: No Seasonal/environmental allergies: No The ROS is otherwise negative. The patient's pmh, medications, allergies, and past visits are reviewed. PHYSICAL EXAM: BP 110/72 Pulse 82 Temp 36.8 C (98.3 F) Resp 16 Wt 66.4 kg (146 lb 6.2 oz) LMP 11/25/2021 (Approximate) SpO2 98% BMI 22.06 kg/m General appearance: alert, cooperative, pleasant, in no acute distress Head: Normocephalic Eyes: EOM's intact, conjunctiva pink and moist, no icterus, sclera white, non-injected Ears: Right ear: External ear/canal- Normal, TM - clear with good landmarks. Left ear: External ear/canal- Normal, TM - clear with good landmarks Oropharynx:mild erythema, without exudates present Heart: Negative. RRR without obvious murmur, gallop, or rubs. No ectopy. Lungs: clear to auscultation, without rales or wheeze, good air exchange PAST MEDICAL HISTORY Diagnosis Date Abnormal Pap smear of cervix Anal fissure Anemia with crohns Cancer (HCC) breast cancer Crohn's disease (HCC) 07/09/2013 Hypoglycemia Iron 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 dietary iron intake 02/13/2023 Iron malabsorption 02/13/2023 Malignant neoplasm of left breast (HCC) 09/2021 PMH - PAST MEDICAL HISTORY OF 04/08/2004 Normal color vision PMH - PAST MEDICAL HISTORY OF 12/23/2001 Pneumonia PAST SURGICAL HISTORY Procedure Laterality Date COLONOSCOPY 07/09/2013 EXTRACTION ERUPTED TOOTH/EXR age 17 PAST SURGICAL HISTORY OF 07/09/2006 Cyst removal in right wrist PAST SURGICAL HISTORY OF masectomy and reconstruction TONSILLECTOMY PRIMARY/SECONDARY AGE 13/> 10/07/2008 US BREAST NEEDLE CORE BIOPSY LT Left 09/2021 ALLERGIES Patient has no known allergies. MEDICATIONS OTC PRODUCT Liver upplement 4 capsules once daily anastrozole (ARIMIDEX) 1 mg tablet Take 1 tablet by mouth once daily. LUPRON DEPOT 3.75 mg injection Inject 3.75 mg intramuscularly once every month. Once a month during chemotherapy FAMILY HISTORY Problem Relation Age of Onset Heart Maternal Grandmother triple by pass Breast Cancer Maternal Grandmother Coronary Artery Disease Paternal Grandfather Diabetes Paternal Grandfather other (DC) Paternal Grandfather age 45 Breast Cancer Other Maternal Great Aunt x2 Social History Tobacco Use Smoking status: Never Smokeless tobacco: Never Vaping Use Vaping status: Never Used Substance Use Topics Alcohol use: Not Currently Comment: Occasionally Drug use: Never ASSESSMENT/PLAN: 1. Sore throat - ICD9: 462, ICD10: J02.9 (primary diagnosis) - STREP A MOLECULAR (POC) - neg 2. Rhinosinusitis - ICD9: 473.9, ICD10: J32.9 - DOXYCYCLINE HYCLATE 100 MG TABLET Prescription instructions reviewed with patient as applicable. Potential red flag symptoms discussed with the patient. Reviewed appropriate action plan to take if red flag symptoms occur. Patient agreeable to treatment plan. Radha Story APRN.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 documented in this encounter [facility] 04-24-2024 Nurse Note Lupron injection administered, left buttock, tolerated well, no immediate adverse reactions noted. Em Toribio LPN [facility] 04-24-2024 Nurse Note Lupron injection administered, left buttock, tolerated well, no immediate adverse reactions noted. Em Toribio LPN documented in this encounter [facility] 03-24-2024 Nurse Note Pt here for injection of Lupron. Given IM in right buttocks. Pt tolerated well. Tiffany Mckinney LPN [facility] 03-24-2024 Nurse Note Pt here for injection of Lupron. Given IM in right buttocks. Pt tolerated well. Tiffany Mckinney LPN documented in this encounter [facility] 02-26-2024 History of Present illness Narrative Pt here for injection of Lupron. Given IM in left buttocks. Pt tolerated well. Tiffany Mckinney LPN documented in this encounter [facility] 02-06-2024 History of Present illness Narrative Images from the original note were not included. [facility] VISIT Portions of the encounter note have been copied from a previous encounter dated 12/27/23 which has been reviewed and updated where appropriate and reflects current medical decision making for today's encounter, February 06, 2024 This visit is a MyChart Zoom Video Visit encounter which required patient-provider interaction for the medical decision making as documented below. Persons Present: patient I have communicated my name and active licensure. The patient s identity and physical location were verified at the time of this visit. Stephen Self or their legal guest experience representative has been informed of the risks and benefits of -- and alternatives to -- treatment through a remote evaluation and consents to proceed with the evaluation remotely. HISTORY OF PRESENT ILLNESS: 33 year old woman who initially self palpated a left breast mass. She underwent a bilateral diagnostic mammogram on 10/04/2021 which showed dense breast tissue and the palpable abnormality corresponding to a 1.2 x 1.4 cm spiculated nodule in the deep lateral axillary region of the breast. She underwent ultrasound of the left breast which showed a 1.3 x 1.3 x 1.1 heterogeneous hypoechoic solid mass with microcalcifications at the 1 o'clock position of the breast 8 cm from the nipple. She underwent a left core needle biopsy on 10/07/2021 which revealed invasive ductal carcinoma, nuclear grade 2 (0.8 cm in greatest length), DCIS, ER>95%/VA 10-50%/HER2 3+. She completed 6 cycles of neoadjuvant TCHP on 03/14/22. Herceptin x 1 dose was given pre-operatively. She underwent left nipple sparing mastectomy, left sentinel lymph node mapping and biopsy, right prophylactic nipple sparing mastectomy along with reconstruction on 04/17/2022. Pathology showed residual disease measuring 1.6cm (tumor bed measures 40 x 40 mm in size, and shows variable cellularity with an average of 22% viable cells; of these viable cells 96.5% are ductal carcinoma in situ and 3.5% are invasive carcinoma), margins negative, 0/6 nodes involved; [id number]. Right breast showed benign findings. She received adjuvant Kadcyla 06/13/22-02/14/23, dose-reduced C5 and stopped after C12 due to elevated LFTs and thrombocytopenia. She received monthly lupron during chemotherapy and this was continued in the adjuvant setting. She began anastrozole on 09/10/22. INTERVAL HISTORY: Stephen presents today for a virtual follow-up visit. She and her recently had a baby via surrogate, delivered on January 14. She reports baby is healthy and doing well. She is interested in becoming in the future, and here to discuss timing and means of this approach. HISTORY REVIEWED (electronic chart updated): REVIEW OF SYSTEMS: Complete 10 system ROS done and negative except as stated above in the HPI. VIDEO PHYSICAL EXAMINATION: (if done, performed via video enabled technology) GENERAL: alert and appropriate, in no distress, well-hydrated, well nourished, and happy, smiling, interactive SKIN: no rash noted HEAD: normocephalic, no abnormality or lesion noted EYES: no injection and visual acuity is grossly normal NOSE: external nose normal without rhinorrhea OROPHARYNX: moist mucus membranes RESPIRATORY: breathing non-labored NEUROLOGIC: no obvious deficit LABS: Latest Ref Rng & Units 01/28/2024 CBC WBC 3.70 - 11.00 k/uL 4.92 RBC 3.90 - 5.20 m/uL 4.97 Hemoglobin 11.5 - 15.5 g/dL 14.4 Hematocrit 36.0 - 46.0 % 42.1 MCV 80.0 - 100.0 fL 84.7 MCH 26.0 - 34.0 pg 29.0 MCHC 30.5 - 36.0 g/dL 34.2 RDW-CV 11.5 - 15.0 % 14.1 Platelet Count 150 - 400 k/uL 99 MPV 9.0 - 12.7 fL 11.7 Baso% % 0.8 Abs Neut (ANC) 1.45 - 7.50 k/uL 2.89 Abs Lymph 1.00 - 4.00 k/uL 1.50 Abs [place] <0.87 k/uL 0.40 Abs Eosin <0.46 k/uL 0.08 Abs Baso <0.11 k/uL 0.04 NRBC /100 WBC 0.0 Latest Ref Rng & Units 01/28/2024 CMP Sodium 136 - 144 mmol/L 140 Potassium 3.7 - 5.1 mmol/L 4.2 Chloride 98 - 107 mmol/L 104 CO2 22 - 30 mmol/L 26 Glucose 74 - 99 mg/dL 96 BUN 7 - 21 mg/dL 10 Creatinine 0.58 - 0.96 mg/dL 0.62 EGFR >=60 mL/min/1.73m 122 Protein, Total 6.3 - 8.0 g/dL 7.5 Albumin 3.9 - 4.9 g/dL 5.0 Calcium 8.5 - 10.2 mg/dL 9.6 Bilirubin, Total 0.2 - 1.3 mg/dL 0.5 AST 13 - 35 U/L 27 ALT 7 - 38 U/L 17 Alkaline Phosphatase 34 - 123 U/L 203 IMAGING: Breast MRI 09/30/23: RESULT: RIGHT RECONSTRUCTED BREAST: There are postoperative changes consistent with the patient's mastectomy and implant reconstruction. A single lumen prepectoral silicone implant appears intact although integrity cannot be fully assessed without dedicated sequences. No ev-implant fluid collection. No suspicious mass or nonmass enhancement. LEFT RECONSTRUCTED BREAST: There are postoperative changes consistent with the patient's mastectomy and implant reconstruction. A single lumen prepectoral silicone implant appears intact although integrity cannot be fully assessed without dedicated sequences. No ev-implant fluid collection. No suspicious mass or nonmass enhancement. BILATERAL AXILLARY AND INTERNAL MAMMARY LYNDA BASINS: No suspicious axillary or internal mammary lymph nodes. IMPRESSION: BENIGN FINDING RIGHT RECONSTRUCTED BREAST: BI-RADS 2 Postoperative changes. No MRI evidence of malignancy. LEFT RECONSTRUCTED BREAST: BI-RADS 2 Postoperative changes. No MRI evidence of malignancy. The exam was reviewed by a staff physician. CT A/P 03/22/23: RESULT: Liver: No mass. Biliary: No bile duct dilation. Gallbladder is unremarkable. Spleen: No mass. Splenomegaly measuring 13.3 cm. Pancreas: No mass or duct dilation. Adrenals: No mass. Kidneys: No mass, calculus or hydronephrosis. GI tract: No dilation or wall thickening. Lymph nodes: No abdominal or pelvic lymphadenopathy. Mesentery/Peritoneum: No ascites or mass. Retroperitoneum: No mass. Vasculature: - Abdominal aorta and iliac arteries: No aneurysm. - Celiac and SMA: Patent without stenosis. - Portal venous system (SMV, splenic vein, portal vein and branches): Patent. - Hepatic veins: Patent. Pelvis: No mass, ascites or fluid collection. Bones/Soft Tissues: No significant finding. Lower thorax: Unremarkable. Cement Finisher Helper (topogram) images: No additional findings. IMPRESSION IMPRESSION: Splenomegaly. Bone Scan 02/08/23: IMPRESSION: Mild diffuse uptake in the axial and appendicular skeleton likely posttherapy effect. No suspicious foci of activity. Likely degenerative/arthritic changes as described. PATHOLOGY: FINAL DIAGNOSIS A: Lymph nodes, left sentinel, x3 axillary, excision: - Four lymph nodes, negative for carcinoma (0/4). B: Breast, left, mastectomy: - Residual invasive ductal carcinoma, post neoadjuvant therapy, measuring 16 mm in greatest dimension. - Ductal carcinoma in situ, low and intermediate grades (nuclear grades 1 and 2) with comedonecrosis and microcalcifications. - Margins are negative for carcinoma (distance to closest margin: <0.2 mm to superior margin). - Q clip, twirl clip, hourglass clip, and coil clip are identified. - Two intramammary lymph nodes, negative for carcinoma (0/2). - Biopsy site changes are present. - Fibroadenoma. - Background mammary parenchyma with fibroadenomatoid changes, fibrocystic changes, and microcalcifications. C: Breast, left, nipple, resection: - Mammary tissue, negative for carcinoma. D: Breast, right, mastectomy: - Benign mammary tissue with fibroadenomatoid changes, usual ductal hyperplasia, fibrocystic changes, and focal scant microcalcifications. E: Breast, right, nipple, resection: - Benign mammary tissue. SIH/sih 04/28/2022 Diagnosis Comment Immunohistochemical studies for cytokeratin AE1/AE3 were used to evaluate the lymph node tissue on blocks A1-A3, A6, A7, B32, and B33, and are negative for epithelial elements, supporting the rendered interpretation. In part B: The tumor bed measures 40 x 23 mm in size, and shows variable cellularity with an average of 22% viable cells; of these viable cells 96.5% are ductal carcinoma in situ and 3.5% are invasive carcinoma. The invasive carcinoma measures 16 mm in greatest dimension. Immunohistochemical studies for cytokeratin AE1/AE3 performed on block B4 highlights invasive ductal carcinoma approaching less than 0.2 mm from the superior radial margin. Select slides from part B, including those with close margins to carcinoma, were reviewed with Dr. Amish Campos (04/24/2022) and Dr. Fred Encinas (04/25/2022) of the [facility] breast pathology service with diagnostic concordance. In Part D: A multiplex immunostain for ADH5 (p63, CK5/14 and CK7/18) was used in the evaluation of this material (block D10). The p63 component highlights an intact myoepithelial cell layer while the luminal epithelium of interest has expression of both CK5/14 and CK7/18, supporting the diagnosis of usual ductal hyperplasia (UDH). An immunohistochemical study for SMMS 1 was used to evaluate the material on block D10 and shows intact myoepithelial cell layers, supporting the rendered interpretation. Laboratory Developed Test (LDT) Disclaimer: Performance characteristics of immunohistochemical, immunofluorescent and chromogenic in-situ hybridization tests have been determined by the performing laboratory within [facility] s [facility] [place] ([facility] or [facility]) in a manner consistent with CLIA requirements. One or more of these tests have not been cleared or approved by the FDA. [facility] is regulated under CLIA as qualified to perform high-complexity testing. These tests are used for clinical purposes. They should not be regarded as investigational or for research. Positive and negative controls stain appropriately. Synoptic Report INVASIVE CARCINOMA OF THE BREAST: Resection 8th Edition - Protocol posted: 01/05/2021INVASIVE CARCINOMA OF THE BREAST, RESECTION - A, B SPECIMEN Procedure Total mastectomy Specimen Laterality Left TUMOR Histologic Type Invasive carcinoma of no special type (ductal) Histologic Grade (Fany Histologic Score) Glandular (Acinar) / Tubular Differentiation Score 3 Nuclear Pleomorphism Score 2 Mitotic Rate Score 1 Overall Grade Grade 2 (scores of 6 or 7) Tumor Size Greatest dimension of largest invasive focus (Millimeters): 16 mm Tumor Focality Single focus of invasive carcinoma Ductal Carcinoma In Situ (DCIS) Present Size (Extent) of DCIS Estimated size (extent) of DCIS is at least (Millimeters): Discontinuous foci spanning 40 mm Nuclear Grade Grade II (intermediate) Necrosis Present, central (expansive comedo necrosis) Microcalcifications Present in DCIS Present in non-neoplastic tissue Treatment Effect in the Breast Probable or definite response to presurgical therapy in the invasive carcinoma Treatment Effect in the Lymph Nodes No lymph node metastases and no fibrous scarring or histiocytic aggregates in the nodes MARGINS Margin Status for Invasive Carcinoma All margins negative for invasive carcinoma Distance from Invasive Carcinoma to Closest Margin <0.2 mm Closest Margin(s) to Invasive Carcinoma Superior Margin Status for DCIS All margins negative for DCIS Distance from DCIS to Closest Margin 1.0 mm Closest Margin(s) to DCIS Posterior Distance from DCIS to Superior Margin 1.5 mm REGIONAL LYMPH NODES Regional Lymph Node Status All regional lymph nodes negative for tumor Total Number of Lymph Nodes Examined (sentinel and non-sentinel) 6 Number of Ewen Nodes Examined 4 PATHOLOGIC STAGE CLASSIFICATION (pTNM, AJCC 8th Edition) Reporting of pT, pN, and (when applicable) pM categories is based on information available to the pathologist at the time the report is issued. As per the AJCC (Chapter 1, 8th Ed.) it is the managing physician s responsibility to establish the final pathologic stage based upon all pertinent information, including but potentially not limited to this pathology report. TNM Descriptors y (post-treatment) pT Category pT1c pN Category pN0 Breast Biomarker Testing Performed on Previous Biopsy Estrogen Receptor (ER) Status Positive (greater than 10% of cells demonstrate nuclear positivity) Percentage of Cells with Nuclear Positivity >95 % Testing Performed on Comment(s) The tumor bed measures 40 x 23 mm in size, and shows variable cellularity with an average of 22% viable cells; of these viable cells 96.5% are ductal carcinoma in situ and 3.5% are invasive carcinoma. The invasive carcinoma measures 16 mm in greatest dimension. ASSESSMENT: Stephen Self is a very pleasant 33 year old woman diagnosed with left-sided ER+/VA+/HER2-positive breast cancer s/p neoadjuvant chemotherapy, bilateral mastectomy/L SLNB, [id number], followed by adjuvant Kadcyla x 12 cycles (discontinued due to elevated liver function tests and thromobcytopenia). She continues on adjuvant endocrine therapy with lupron (monthly) and anastrozole. She has recently had a baby via surrogate and is interested in future . I discussed the POSITIVE trial in detail which included women with stage I-III HR+ breast cancer, who had received endocrine therapy for 18-30 months and then interrupted treatment to attempt . Short term follow-up from this trial demonstrates the relative safety of this approach and I think this is reasonable in her case. More than 40% of the women used assisted reproductive technology during the trial (relatively high percentage), which may be due to egg/embryo banking prior to chemotherapy and desire to achieve quickly to allow less time off of endocrine therapy. We discussed that a 3 month washout period from ET was performed in the trial. I reviewed the importance of resuming endocrine therapy after attempting or becoming . PLAN: Continues endocrine therapy with lupron plus anastrozole Discussed timing of attempting according to POSITIVE trial as detailed above; women interrupted ET after receiving for 18-36 months It would be very reasonable to utilize ART in her case if desired Following with [facility] Breast MRI 09/2023 showed no evidence of malignancy Labs notable for elevated ALP and thrombocytopenia; has had prior evaluation including imaging (CT noted splenomegaly) and a negative bone scan RTC as needed. She will continue to follow with Dr. Ayers and she is aware that I am available for any future needs or questions. I spent >25 minutes in total on this patient encounter including time face to face with patient (via virtual means), review of relevant records, clinical documentation, patient education and counseling, and coordination with other treatment team members. Anabelle Stubbs MD documented in this encounter [facility] 01-28-2024 Nurse Note Pt here for injection of Lupron. Given IM in right buttocks. Pt tolerated well. Tiffany Mckinney LPN [facility] 01-28-2024 Nurse Note Pt here for injection of Lupron. Given IM in right buttocks. Pt tolerated well. Tiffany Mckinney LPN documented in this encounter [facility] 01-14-2024 History of Present illness Narrative Chief Complaint Patient presents with: Established Patient HPI: Stephen Self is a 33 year old female who presents here today for follow up breast cancer. Per Dr. Ayers's previous note: Crohn's disease (dx 2013), vitiligo and dysmenorrhea. She self discovered a mass in the left breast. She underwent a bilateral diagnostic mammogram on 10/04/2021. The breasts were noted to be extremely dense lowering the sensitivity of the mammography. The palpable abnormality however corresponded to a 1.2 x 1.4 cm spiculated nodule in the deep lateral axillary region of the breast. Microcalcifications were identified within it. Patient underwent ultrasound of the breast on the same day. In the left breast corresponding to the palpable abnormality there was a 1.3 x 1.3 x 1.1 heterogeneous hypoechoic solid mass with microcalcifications at the 1 o'clock position of the breast 8 cm from the nipple. Increased vascularity was observed. Patient was referred to Dr. Farrar. She underwent a left core needle biopsy on 10/07/2021. 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 VA variable 10 to 50%, moderate intensity. HER-2/chaz 3+ IHC. Regular menses. OCPs starting age 17. Stopped age 30 to try to get . Stopped trying to get because had flare of Crohn's. Generalized itching all over--started last April. Triggered by heat (showever). Injured coccyx snowboarding in high school. Hurting more lately. Crohn's under control with anti-inflammatory diet. She underwent MRI of the breast on 10/20/2021. In the left breast in the upper outer quadrant there was an irregular mass with internal biopsy clip artifact representing biopsy-proven invasive carcinoma. There was an adjacent clumped nonmass enhancement that correlated to the adjacent suspicious focal asymmetry/architectural distortion with calcifications on the 10/04/2021 mammogram. Overall area of contiguous involvement in the upper outer quadrant (mass with adjacent non-mass enhancement) measured up to 2.7 cm in greatest dimension. He was noted that on a postbiopsy diagnostic mammogram that was available for comparison there was a possible group of indeterminate appearing calcifications in the upper outer quadrant posterior depth for which magnification views were recommended. Two additional abnormalities were identified in the breast--There is an additional irregular 0.5 x 0.4 x 0.4 cm (transverse by AP by cc dimensions) in the left upper-outer quadrant (series 7 image 75) which demonstrates heterogeneous enhancement with prominent central washout kinetics concerning for an additional site of involvement. There is an additional 0.4 x 0.4 x 0.4 cm mass upper CENTRAL breast (series 7 image 76) which also demonstrates heterogeneous enhancement with prominent central washout kinetics concerning for an additional site of involvement. LYMPH NODES: There are no suspicious axillary or internal mammary lymph nodes in either breast. RIGHT BREAST: There is no suspicious mass or area of non-mass enhancement identified within limitation of marked background parenchymal enhancement. Underwent MRI guided biopsy with clip placement 11/01/2021. Pathology: A. Breast, left, upper outer aspect, calcifications, Twirl clip, stereotactic core biopsy: --Atypical ductal hyperplasia (ADH). --Microcalcifications are present in ducts adjacent to ADH. --Please see comment. B. Breast, left, at 10:00, 3 cm from the nipple, Q clip, ultrasound-guided core biopsy: --Fibroadenoma. Second MRI breast biopsy 11/10/2021 Pathology: A. 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 Previous therapy: 1) TCH-P. Completed cycle #6 on 03/14/2022. 2) Herceptin x1 dose pre-operatively 04/07/2022. 3) Underwent left nipple sparing mastectomy, left sentinel lymph node mapping and biopsy, right prophylactic nipple sparing mastectomy along with right breast reconstruction direct to implant with total acellular dermal matrix coverage and left breast reconstruction direct to implant with total acellular dermal matrix coverage on 04/17/2022. Pathology: Tumor bed: The tumor bed measures 40 x 40 mm in size, and shows variable cellularity with an average of 22% viable cells; of these viable cells 96.5% are ductal carcinoma in situ and 3.5% are invasive carcinoma. The invasive carcinoma measures 16 mm in greatest dimension. Margins: Margin Status for Invasive Carcinoma:All margins negative for invasive carcinoma. Distance from Invasive Carcinoma to Closest Margin:1 mm Closest Margin(s) to Invasive Carcinoma: Superior Margin Status for DCIS:All margins negative for DCIS Distance from DCIS to Closest Margin:1.0 mm Closest Margin(s) to DCIS:Posterior Distance from DCIS to Superior Margin:1.5 mm A: Lymph nodes, left sentinel, x3 axillary, excision: - Four lymph nodes, negative for carcinoma (0/4). B: Breast, left, mastectomy: - Residual invasive ductal carcinoma, post neoadjuvant therapy, measuring 16 mm in greatest dimension. - Residual ductal carcinoma in situ, low and intermediate grades (nuclear grades 1 and 2) with comedonecrosis and microcalcifications. - Focal atypical ductal hyperplasia (ADH). - Margins are negative for carcinoma (distance to closest margin: 1 mm to superior margin). - Q clip, twirl clip, hourglass clip, and coil clip are identified. - Two intramammary lymph nodes, negative for carcinoma (0/2). - Biopsy site changes are present. - Fibroadenoma. - Background mammary parenchyma with fibroadenomatoid changes, fibrocystic changes, and microcalcifications. C: Breast, left, nipple, resection: - Mammary tissue, negative for carcinoma. D: Breast, right, mastectomy: - PENDING IHCs E: Breast, right, nipple, resection: - Benign mammary tissue. 4) Kadcyla (06/13/2022 -present). Dose reduced to 3 mg/kg cycle #5. Stopped after cycle #12 due to elevated liver enzymes and persistent thrombocytopenia. Current therapy: 1) Lupron monthly. 2) Anastrozole. Started 09/10/2022. No new concerns today. Appetite:Good. Energy level:Good. It's getting better. Denies fevers. Resp:denies cough or sob Cardiac:denies chest pain/palpitations GI:denies abd pain, n/v, moving bowels regularly -recent Crohn's flare :denies dysuria/hematuria Extrem:denies pain Endo:+hot flashes About the same-mild. Mostly at night. Neuro:denies symptoms of neuropathy Skin:denies rasges Heme:denies bleeding The ROS is otherwise negative. Past medical history, appointments, medications, allergies reviewed. No changes. EXAM: BP 112/78 Pulse 74 Temp 36.2 C (97.1 F) (Temporal) Wt 66.5 kg (146 lb 8 oz) LMP 11/25/2021 (Approximate) SpO2 98% BMI 22.08 kg/m APPEARANCE Well appearing, alert, in no acute distress, well-hydrated, well nourished. HEART RRR with normal S1 and S2, no murmurs LUNG clear to auscultation BREAST FEMALE b/l recon/implants, no surrounding mass/nodule LYMPH NODES No cervical lymphadenopathy, No supraclavicular lymphadenopathy, and No axillary lymphadenopathy. ABDOMEN bowel sounds normoactive, soft, non-tender, non-distended EXTREMITIES No edema NEURO Awake, alert and oriented x 3, Normal gait, and No involuntary motions. SKIN Skin color, texture, turgor normal, no suspicious rashes or lesions ASSESSMENT/PLAN: 1. Malignant neoplasm of upper-outer quadrant of left breast in female, estrogen receptor positive (HCC) - ICD9: 174.4, V86.0, ICD10: C50.412, Z17.0 (primary diagnosis) 2. HER2-positive carcinoma of left breast (HCC) - ICD9: 174.9, ICD10: C50.912 cT2 cN0 M0 ER/VA positive, HER2 overexpressed clinical stage IIA infiltrating ductal carcinoma of the left breast. ypT1c pN0. -Significant family history of breast cancer. Several family members who were tested were negative for deleterious gene mutation. Patient's genetic testing through [facility] was negative (see scanned report 11/25/2021). -Adjuvant radiation was not recommended. - No new concerning findings on exam. - Reviewed labs with pt. - Tolerating lupron/arimidex overall well. - Continue arimidex. - Labs as scheduled. - Lupron-continue monthly. - Follow up in [address] Ayers. - Pt. aware to call office any questions/concerns. The patient indicates understanding of these issues and agrees with the plan. All documentation from previous visit of 10/10/23-Dr. Ayers/myself was copied and pasted, documentation has been reviewed and edited as necessary for today's visit. Steff Hernandez APRN.CNP documented in this encounter [facility] 01-02-2024 History and physical note History Of Present Illness Stephen Self is a 33 y.o. female presenting with history of Crohn's disease presents for colonoscopy to assess disease activity and disease mapping. Past Medical History Past Medical History: Diagnosis Date Breast cancer (Multi) Crohn disease (Multi) Surgical History Past Surgical History: Procedure Laterality Date BREAST RECONSTRUCTION Bilateral MASTECTOMY OTHER SURGICAL HISTORY 03/17/2021 Tonsillectomy OTHER SURGICAL HISTORY 03/17/2021 [place] tooth extraction Social History She reports that she has never smoked. She has never used smokeless tobacco. She reports that she does not currently use alcohol. She reports that she does not use drugs. Family History Family History Problem Relation Name Age of Onset No Known Problems Mother No Known Problems Father Allergies No Known Allergies Review of Systems Constitutional: Negative. HENT: Negative. Eyes: Negative. Respiratory: Negative. Cardiovascular: Negative. Gastrointestinal: Positive for abdominal pain and nausea. Endocrine: Negative. Genitourinary: Negative. Neurological: Negative. Hematological: Negative. Pre-sedation Evaluation: ASA Classification - ASA 2 - Patient with mild systemic disease with no functional limitations Mallampati Score - II (hard and soft palate, upper portion of tonsils and uvula visible) Physical Exam Vitals and nursing note reviewed. Constitutional: Appearance: Normal appearance. HENT: Head: Normocephalic. Mouth/Throat: Mouth: Mucous membranes are moist. Pharynx: Oropharynx is clear. Eyes: Conjunctiva/sclera: Conjunctivae normal. Pupils: Pupils are equal, round, and reactive to light. Cardiovascular: Pulses: Normal pulses. Heart sounds: Normal heart sounds. Pulmonary: Effort: Pulmonary effort is normal. Breath sounds: Normal breath sounds. Abdominal: General: Abdomen is flat. Bowel sounds are normal. Palpations: Abdomen is soft. Musculoskeletal: Cervical back: Normal range of motion and neck supple. Skin: General: Skin is warm and dry. Neurological: General: No focal deficit present. Mental Status: She is alert and oriented to person, place, and time. Psychiatric: Behavior: Behavior normal. Last Recorded Vitals Blood pressure 123/85, pulse 83, temperature 36.5 C (97.7 F), resp. rate 16, height 1.727 m (5' 8), weight 66.3 kg (146 lb 3.2 oz), SpO2 97%. Assessment/Plan Problem List Items Addressed This Visit Crohn's disease (Multi) Relevant Orders Colonoscopy Screening; High Risk Patient; crohn's disease JEWEL GRINDER/Current Medications: (Not in a hospital admission) Current Outpatient Medications Medication Sig Dispense Refill anastrozole (Arimidex) 1 mg tablet Take 1 tablet (1 mg total) by mouth once daily. leuprolide, 1-month, (Lupron Depot) 3.75 mg injection Inject 3.75 mg into the muscle every 30 (thirty) days. Current Facility-Administered Medications Medication Dose Route Frequency Provider Last Rate Last Admin lactated Ringer's infusion 20 mL/hr intravenous Continuous Luz Garza DO 20 mL/hr at 01/02/24 0802 20 mL/hr at 01/02/24 0802 Luz Garza DO [facility] Work Phone: 01-02-2024 History and physical note History Of Present Illness Stephen Self is a 33 y.o. female presenting with history of Crohn's disease presents for colonoscopy to assess disease activity and disease mapping. Past Medical History Past Medical History: Diagnosis Date Breast cancer (Multi) Crohn disease (Multi) Surgical History Past Surgical History: Procedure Laterality Date BREAST RECONSTRUCTION Bilateral MASTECTOMY OTHER SURGICAL HISTORY 03/17/2021 Tonsillectomy OTHER SURGICAL HISTORY 03/17/2021 [place] tooth extraction Social History She reports that she has never smoked. She has never used smokeless tobacco. She reports that she does not currently use alcohol. She reports that she does not use drugs. Family History Family History Problem Relation Name Age of Onset No Known Problems Mother No Known Problems Father Allergies No Known Allergies Review of Systems Constitutional: Negative. HENT: Negative. Eyes: Negative. Respiratory: Negative. Cardiovascular: Negative. Gastrointestinal: Positive for abdominal pain and nausea. Endocrine: Negative. Genitourinary: Negative. Neurological: Negative. Hematological: Negative. Pre-sedation Evaluation: ASA Classification - ASA 2 - Patient with mild systemic disease with no functional limitations Mallampati Score - II (hard and soft palate, upper portion of tonsils and uvula visible) Physical Exam Vitals and nursing note reviewed. Constitutional: Appearance: Normal appearance. HENT: Head: Normocephalic. Mouth/Throat: Mouth: Mucous membranes are moist. Pharynx: Oropharynx is clear. Eyes: Conjunctiva/sclera: Conjunctivae normal. Pupils: Pupils are equal, round, and reactive to light. Cardiovascular: Pulses: Normal pulses. Heart sounds: Normal heart sounds. Pulmonary: Effort: Pulmonary effort is normal. Breath sounds: Normal breath sounds. Abdominal: General: Abdomen is flat. Bowel sounds are normal. Palpations: Abdomen is soft. Musculoskeletal: Cervical back: Normal range of motion and neck supple. Skin: General: Skin is warm and dry. Neurological: General: No focal deficit present. Mental Status: She is alert and oriented to person, place, and time. Psychiatric: Behavior: Behavior normal. Last Recorded Vitals Blood pressure 123/85, pulse 83, temperature 36.5 C (97.7 F), resp. rate 16, height 1.727 m (5' 8), weight 66.3 kg (146 lb 3.2 oz), SpO2 97%. Assessment/Plan Problem List Items Addressed This Visit Crohn's disease (Multi) Relevant Orders Colonoscopy Screening; High Risk Patient; crohn's disease JEWEL GRINDER/Current Medications: (Not in a hospital admission) Current Outpatient Medications Medication Sig Dispense Refill anastrozole (Arimidex) 1 mg tablet Take 1 tablet (1 mg total) by mouth once daily. leuprolide, 1-month, (Lupron Depot) 3.75 mg injection Inject 3.75 mg into the muscle every 30 (thirty) days. Current Facility-Administered Medications Medication Dose Route Frequency Provider Last Rate Last Admin lactated Ringer's infusion 20 mL/hr intravenous Continuous Luz Garza DO 20 mL/hr at 01/02/24 0802 20 mL/hr at 01/02/24 0802 Luz Garza DO documented in this encounter [facility] Work Phone: 01-02-2024 Hospital Discharge instructions Chioma Gracia RN - 01/02/2024 7:48 AM EDT Patient Instructions after a Colonoscopy The anesthetics, sedatives or narcotics which were given to you today will be acting in your body for the next 24 hours, so you might feel a little sleepy or groggy. This feeling should slowly wear off. Carefully read and follow the instructions. You received sedation today: - Do not drive or operate any machinery or power tools of any kind. - No alcoholic beverages today, not even beer or wine. - Do not make any important decisions or sign any legal documents. - No over the counter medications that contain alcohol or that may cause drowsiness. - Do not make any important decisions or sign any legal documents. - Make sure you have someone with you for first 24 hours. While it is common to experience mild to moderate abdominal distention, gas, or belching after your procedure, if any of these symptoms occur following discharge from the GI Lab or within one week of having your procedure, call the [facility] to be advised whether a visit to your nearest Urgent Care or Emergency Department is indicated. Take this paper with you if you go. - If you develop an allergic reaction to the medications that were given during your procedure such as difficulty breathing, rash, hives, severe nausea, vomiting or lightheadedness. - If you experience chest pain, shortness of breath, severe abdominal pain, fevers and chills. -If you develop signs and symptoms of bleeding such as blood in your spit, if your stools turn black, tarry, or bloody - If you have not urinated within 8 hours following your procedure. - If your IV site becomes painful, red, inflamed, or looks infected. If you received a biopsy/polypectomy/sphincterotomy the following instructions apply below: __ Do not use Aspirin containing products, non-steroidal medications or anti-coagulants for one week following your procedure. (Examples of these types of medications are: Advil, Arthrotec, Aleve, Coumadin, Ecotrin, Heparin, Ibuprofen, Indocin, Motrin, Naprosyn, Nuprin, Plavix, Vioxx, and Voltarin, or their generic forms. This list is not all-inclusive. Check with your physician or pharmacist before resuming medications.) __ Eat a soft diet today. Avoid foods that are poorly digested for the next 24 hours. These foods would include: nuts, beans, lettuce, red meats, and fried foods. Start with liquids and advance your diet as tolerated, gradually work up to eating solids. __ Do not have a Barium Study or Enema for one week. Your physician recommends the additional following instructions: -You have a contact number available for emergencies. The signs and symptoms of potential delayed complications were discussed with you. You may return to normal activities tomorrow. -Resume your previous diet. -Continue your present medications. -We are waiting for your pathology results. -Your physician has recommended a repeat colonoscopy (date to be determined after pending pathology results are reviewed) for surveillance based on pathology results. -The findings and recommendations have been discussed with you. -The findings and recommendations were discussed with your family. - Please see Medication Reconciliation Form for new medication/medications prescribed. If you experience any problems or have any questions following discharge from the GI Lab, please call: Nurse Signature Date Patient/Responsible [place] Signature Date documented in this encounter [facility] Work Phone: 01-01-2024 Nurse Note lupron injection administered, left Buttock, tolerated well, no immediate adverse reactions noted. Em Toribio LPN [facility] 01-01-2024 Nurse Note lupron injection administered, left Buttock, tolerated well, no immediate adverse reactions noted. Em Toribio LPN documented in this encounter [facility] 12-28-2023 Instructions Cristopher Alaniz APRN.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 - 12/28/2023 2:27 PM EDT Lubricants and moisturizers list The [id number] vaginal moisturizer and lubricant products can be confusing to sort through, especially since there are no FDA requirements for how they can be marketed or labeled. In general there are 3 categories of products: Vaginal lubricants should be used at the time of intercourse to decrease friction. Long acting vaginal moisturizers are used at least twice weekly to increase vaginal (internal) lubrication and elasticity. Vulvar moisturizers are for external use for vulvar comfort and do not impact vaginal lubrication or elasticity. Vaseline petroleum products and oils (baby oil, coconut, olive oil,) can make condoms break, so should not be used with condoms. In many women, these can cause infections. However, if you have sore spots on the vulva (outer lips), then petroleum jelly can sometimes be helpful. All of the products listed below are over the counter. Many can be bought in any drugstore or online. Also, many [employer] stores do carry high-quality lubricant products. VAGINAL LUBRICANTS: (For use during sexual activity) Lubricants should be applied to the outside and opening of the vagina at the time of sexual activity. The lubricant can also be applied to the penis or a device. Silicone based lubricants should not be used on silicone vibrators or toys. Both silicone and water based lubricants are condom compatible. If you use a water based lubricant, it is also important to choose a lubricant with low osmolality since lubricants with high osmolality increase the chance of irritation and infection. Osmolality information can be hard to find. All of the following lubricants have a low osmolality, are pH balanced, and are preservative free. WATER BASED LUBRICANTS Good Clean Love (made of organic ingredients) Pulse H2Oh! Sylk Natural System Romi PreSeed (Does not impact sperm motility and can be used if trying to conceive, also good for those with multiple sensitivities, though may not work as well) SILICONE BASED LUBRICANTS Uber lube Replens Silky Smooth Pulse Aloe-ahh Wet [place] ROMI Premium Personal Lubricant PINK Silicone Lubricant SLIQUID Organics silk Pulse is a hands free personal lubricant warming dispenser and is sold with water or silicone based lubricant pods that some women prefer for travel. LONG ACTING VAGINAL MOISTURIZERS: (For regular use inside vagina to maintain moisture) Long acting vaginal moisturizers should be used at least twice weekly on a regular basis. Many women find they need to use a moisturizer 3-5 times/week. In addition, it is important to not only apply the moisturizer inside the vagina, but also to apply to the vestibule (the external area surrounding the opening of the vagina). Women who are not sexually active often find that the regular use of a long acting vaginal moisturizer makes them feel more comfortable. Litigation Services Manager beware: many lubricants are labeled as moisturizers to make them more appealing to consumers (even though they don t function as a true moisturizer). Replens Long Acting Vaginal Moisturizer (Available in all drugstores) HyaloGyn Vaginal Hydrating Gel (hybrid moisturizer, but can function as lubricant too) Revaree (hyaluronic acid) VULVAR MOISTURIZERS: (For external use) Replens Moisture Restore Comfort Gel is to be used externally for dry vulvar skin. Aquaphor can also be applied externally for comfort. Desert Iva Aloe [place]: Many people are allergic to aloe, so keep this in mind with products like this that have aloe in it. Medicine Mama s V magic: Not much medical studies on this, but many patients swear by it, has oil, beeswax and honey in it- best used externally only. documented in this encounter [facility] 12-28-2023 History of Present illness Narrative Clinical Practice Consultant offered: Patient declines. Stephen is a 33 year old who presents for an annual gynecologic exam. Expecting BABY FILIPPO in January! Sister in law is surrogate. Stephen has a history of breast cancer ER+/VA+/HER2-positive breast cancer and had a double mastectomy. Menses: no menses from Lupron/chemo - treated for breast cancer Contraception: none HPV vaccine: Yes Last Pap: 07/16/2015 normal HPV: 08/26/2012 positive History of abnormal pap: Yes, 2013 ASCUS Last mammogram: breast MRI September 2023, yearly MRI per breast specialist Sexually active: Yes History of STDS: HPV Pain with intercourse: Yes Postcoital bleeding: No Exercise: walking and active OB History T0 L0 SAB0 IAB0 Ectopic0 Multiple0 Live Births0 Comment: Menarche: 17; Age at 1st : n/a; Premenopausal Manager Insurance History LMP: 11/25/2021, Having periods Age at Menarche: Age at First : Age at Menopause: Manager Insurance History Comments: Sexual Activity: Yes; Male Contraception: Condom, Pill PAST MEDICAL HISTORY Diagnosis Date Abnormal Pap smear of cervix Anal fissure Anemia with crohns Cancer (HCC) breast cancer Crohn's disease (HCC) 07/09/2013 Hypoglycemia Iron 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 dietary iron intake 02/13/2023 Iron malabsorption 02/13/2023 Malignant neoplasm of left breast (HCC) 09/2021 PMH - PAST MEDICAL HISTORY OF 04/08/2004 Normal color vision PMH - PAST MEDICAL HISTORY OF 12/23/2001 Pneumonia PAST SURGICAL HISTORY Procedure Laterality Date COLONOSCOPY 07/09/2013 EXTRACTION ERUPTED TOOTH/EXR age 17 PAST SURGICAL HISTORY OF 07/09/2006 Cyst removal in right wrist PAST SURGICAL HISTORY OF masectomy and reconstruction TONSILLECTOMY PRIMARY/SECONDARY AGE 13/> 10/07/2008 BREAST NEEDLE CORE BIOPSY LT Left 09/2021 FAMILY HISTORY Problem Relation Age of Onset Heart Maternal Grandmother triple by pass Breast Cancer Maternal Grandmother Coronary Artery Disease Paternal Grandfather Diabetes Paternal Grandfather other (DC) Paternal Grandfather age 45 Breast Cancer Other Maternal Great Aunt x2 SOCIAL HISTORY Social History Tobacco Use Smoking status: Never Smokeless tobacco: Never Vaping Use Vaping Use: Never used Substance Use Topics Alcohol use: Not Currently Comment: Occasionally Drug use: No REVIEW OF SYSTEMS Abdomen: No abdominal pain, nausea, vomiting, diarrhea, or constipation. No bloating, early satiety, indigestion, or increased flatulence. Bladder: No dysuria, gross hematuria, urinary frequency, urinary urgency, or incontinence. Breast: No breast lumps, nipple d/c, overlying skin changes, redness or skin retraction. Allergies and current medication updated:Yes EXAM: BP 108/70 Pulse 88 Resp 14 Ht 5' 8.307 (1.74m) Wt 149 lb (67.6kg) SpO2 98% LMP 11/25/2021 BMI 22.45 kg/(m^2). GENERAL: pleasant, female in no apparent distress HEENT: Normocephalic, atraumatic, mucus membranes moist, and no lesions NECK: Supple, full range of motion, no adenopathy DERMATOLOGY: Normal, without lesions, non-icteric, and non-hirsute BREAST: soft, non-tender, symmetric, no dominant mass, normal nipple-areolar complex, no lymphadenopathy, and no nipple discharge + double mastectomy CHEST: Normal inspiratory effort ABDOMEN: soft, non-tender, and no masses PELVIC: external genitalia normal, normal Bartholin's glands, urethra, [place]'s glands, no vulvar lesions, no cervical lesions, good vaginal support, physiologic discharge present, normal appearing perineal body and perianal region BIMANUAL: uterus normal size, shape and consistency, no adnexal masses, and non-tender RECTOVAGINAL: deferred. NEURO: alert and oriented x3,exam grossly non-focal EXTREMITIES: normal ASSESSMENT/PLAN: 1) Health maintenance: Pap done with HPV. Nutrition, exercise and routine health maintenance exams reviewed. HPV vaccine: completed series 2) Contraception: none. Contraceptive options reviewed and information provided. 3) STD screening: Declined STD check. 4) Follow up one year or sooner as needed Other specified dyspareunia - ICD9: 625.0, ICD10: N94.19 - Reports due to vaginal dryness - Do not recommend vaginal estrogen cream - Discussed nonhormonal lubricants and moisturizers Wanting to attempt near the beginning of 2024 - working with breast specialist. Recommend follow up with [facility]. Sister in law currently a surrogate (embryo transferred 05/2023.) Consult placed. Will send message to Dr. Foley. Continue management with breast specialist for MRI/breast imaging. Cristopher Alaniz APRN.KASH documented in this encounter [facility] 12-27-2023 History of Present illness Narrative Images from the original note were not included. Breast Cancer Consult Note SERVICE DATE: December 27, 2023 CHIEF COMPLAINT: Stephen Self is a 33 year old female referred by Paulina Null DO, for my opinion regarding the management of clinically detected breast cancer and questions regarding after breast cancer diagnosis and treatment. HISTORY OF PRESENT ILLNESS: 33 year old woman who initially self palpated a left breast mass. She underwent a bilateral diagnostic mammogram on 10/04/2021 which showed dense breast tissue and the palpable abnormality corresponding to a 1.2 x 1.4 cm spiculated nodule in the deep lateral axillary region of the breast. She underwent ultrasound of the left breast which showed a 1.3 x 1.3 x 1.1 heterogeneous hypoechoic solid mass with microcalcifications at the 1 o'clock position of the breast 8 cm from the nipple. She underwent a left core needle biopsy on 10/07/2021 which revealed invasive ductal carcinoma, nuclear grade 2 (0.8 cm in greatest length), DCIS, ER>95%/VA 10-50%/HER2 3+. She completed 6 cycles of neoadjuvant TCHP on 03/14/22. Herceptin x 1 dose was given pre-operatively. She underwent left nipple sparing mastectomy, left sentinel lymph node mapping and biopsy, right prophylactic nipple sparing mastectomy along with reconstruction on 04/17/2022. Pathology showed residual disease measuring 1.6cm (tumor bed measures 40 x 40 mm in size, and shows variable cellularity with an average of 22% viable cells; of these viable cells 96.5% are ductal carcinoma in situ and 3.5% are invasive carcinoma), margins negative, 0/6 nodes involved; [id number]. Right breast showed benign findings. She received adjuvant Kadcyla 06/13/22-02/14/23, dose-reduced C5 and stopped after C12 due to elevated LFTs and thrombocytopenia. She received monthly lupron during chemotherapy and this was continued in the adjuvant setting. She began anastrozole on 09/10/22. Stephen presents today for an initial consultation. She is unaccompanied. She follows with Dr. Ayers in [place]. She is tolerating endocrine therapy well overall. She and her are expecting a baby via surrogate next month. She is interested in attempting if considered safe. Diagnostic Studies: FINAL DIAGNOSIS A: Lymph nodes, left sentinel, x3 axillary, excision: - Four lymph nodes, negative for carcinoma (0/4). B: Breast, left, mastectomy: - Residual invasive ductal carcinoma, post neoadjuvant therapy, measuring 16 mm in greatest dimension. - Ductal carcinoma in situ, low and intermediate grades (nuclear grades 1 and 2) with comedonecrosis and microcalcifications. - Margins are negative for carcinoma (distance to closest margin: <0.2 mm to superior margin). - Q clip, twirl clip, hourglass clip, and coil clip are identified. - Two intramammary lymph nodes, negative for carcinoma (0/2). - Biopsy site changes are present. - Fibroadenoma. - Background mammary parenchyma with fibroadenomatoid changes, fibrocystic changes, and microcalcifications. C: Breast, left, nipple, resection: - Mammary tissue, negative for carcinoma. D: Breast, right, mastectomy: - Benign mammary tissue with fibroadenomatoid changes, usual ductal hyperplasia, fibrocystic changes, and focal scant microcalcifications. E: Breast, right, nipple, resection: - Benign mammary tissue. SIH/sih 04/28/2022 Diagnosis Comment Immunohistochemical studies for cytokeratin AE1/AE3 were used to evaluate the lymph node tissue on blocks A1-A3, A6, A7, B32, and B33, and are negative for epithelial elements, supporting the rendered interpretation. In part B: The tumor bed measures 40 x 23 mm in size, and shows variable cellularity with an average of 22% viable cells; of these viable cells 96.5% are ductal carcinoma in situ and 3.5% are invasive carcinoma. The invasive carcinoma measures 16 mm in greatest dimension. Immunohistochemical studies for cytokeratin AE1/AE3 performed on block B4 highlights invasive ductal carcinoma approaching less than 0.2 mm from the superior radial margin. Select slides from part B, including those with close margins to carcinoma, were reviewed with Dr. Amish Campos (04/24/2022) and Dr. Fred Encinas (04/25/2022) of the [facility] breast pathology service with diagnostic concordance. In Part D: A multiplex immunostain for ADH5 (p63, CK5/14 and CK7/18) was used in the evaluation of this material (block D10). The p63 component highlights an intact myoepithelial cell layer while the luminal epithelium of interest has expression of both CK5/14 and CK7/18, supporting the diagnosis of usual ductal hyperplasia (UDH). An immunohistochemical study for SMMS 1 was used to evaluate the material on block D10 and shows intact myoepithelial cell layers, supporting the rendered interpretation. Laboratory Developed Test (LDT) Disclaimer: Performance characteristics of immunohistochemical, immunofluorescent and chromogenic in-situ hybridization tests have been determined by the performing laboratory within [facility] s [facility] Pathology and Laboratory Medicine [place] ([facility], [facility] or [facility]) in a manner consistent with CLIA requirements. One or more of these tests have not been cleared or approved by the FDA. [facility] is regulated under CLIA as qualified to perform high-complexity testing. These tests are used for clinical purposes. They should not be regarded as investigational or for research. Positive and negative controls stain appropriately. Synoptic Report INVASIVE CARCINOMA OF THE BREAST: Resection 8th Edition - Protocol posted: 01/05/2021INVASIVE CARCINOMA OF THE BREAST, RESECTION - A, B SPECIMEN Procedure Total mastectomy Specimen Laterality Left TUMOR Histologic Type Invasive carcinoma of no special type (ductal) Histologic Grade ([place] Histologic Score) Glandular (Acinar) / Tubular Differentiation Score 3 Nuclear Pleomorphism Score 2 Mitotic Rate Score 1 Overall Grade Grade 2 (scores of 6 or 7) Tumor Size Greatest dimension of largest invasive focus (Millimeters): 16 mm Tumor Focality Single focus of invasive carcinoma Ductal Carcinoma In Situ (DCIS) Present Size (Extent) of DCIS Estimated size (extent) of DCIS is at least (Millimeters): Discontinuous foci spanning 40 mm Nuclear Grade Grade II (intermediate) Necrosis Present, central (expansive comedo necrosis) Microcalcifications Present in DCIS Present in non-neoplastic tissue Treatment Effect in the Breast Probable or definite response to presurgical therapy in the invasive carcinoma Treatment Effect in the Lymph Nodes No lymph node metastases and no fibrous scarring or histiocytic aggregates in the nodes MARGINS Margin Status for Invasive Carcinoma All margins negative for invasive carcinoma Distance from Invasive Carcinoma to Closest Margin <0.2 mm Closest Margin(s) to Invasive Carcinoma Superior Margin Status for DCIS All margins negative for DCIS Distance from DCIS to Closest Margin 1.0 mm Closest Margin(s) to DCIS Posterior Distance from DCIS to Superior Margin 1.5 mm REGIONAL LYMPH NODES Regional Lymph Node Status All regional lymph nodes negative for tumor Total Number of Lymph Nodes Examined (sentinel and non-sentinel) 6 Number of Ewen Nodes Examined 4 PATHOLOGIC STAGE CLASSIFICATION (pTNM, AJCC 8th Edition) Reporting of pT, pN, and (when applicable) pM categories is based on information available to the pathologist at the time the report is issued. As per the AJCC (Chapter 1, 8th Ed.) it is the managing physician s responsibility to establish the final pathologic stage based upon all pertinent information, including but potentially not limited to this pathology report. TNM Descriptors y (post-treatment) pT Category pT1c pN Category pN0 Breast Biomarker Testing Performed on Previous Biopsy Estrogen Receptor (ER) Status Positive (greater than 10% of cells demonstrate nuclear positivity) Percentage of Cells with Nuclear Positivity >95 % Testing Performed on Comment(s) The tumor bed measures 40 x 23 mm in size, and shows variable cellularity with an average of 22% viable cells; of these viable cells 96.5% are ductal carcinoma in situ and 3.5% are invasive carcinoma. The invasive carcinoma measures 16 mm in greatest dimension. . PAST MEDICAL HISTORY: PAST MEDICAL HISTORY Diagnosis Date Abnormal Pap smear of cervix Anal fissure Anemia with crohns Cancer (HCC) breast cancer Crohn's disease (HCC) 07/09/2013 Hypoglycemia Iron 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 dietary iron intake 02/13/2023 Iron malabsorption 02/13/2023 Malignant neoplasm of left breast (HCC) 09/2021 PMH - PAST MEDICAL HISTORY OF 04/08/2004 Normal color vision PMH - PAST MEDICAL HISTORY OF 12/23/2001 Pneumonia PAST SURGICAL HISTORY: PAST SURGICAL HISTORY Procedure Laterality Date COLONOSCOPY 07/09/2013 EXTRACTION ERUPTED TOOTH/EXR age 17 PAST SURGICAL HISTORY OF 07/09/2006 Cyst removal in right wrist PAST SURGICAL HISTORY OF masectomy and reconstruction TONSILLECTOMY PRIMARY/SECONDARY AGE 13/> 10/07/2008 BREAST NEEDLE CORE BIOPSY LT Left 09/2021 CURRENT MEDICATIONS: OTC PRODUCT^Liver upplement 4 capsules once daily^Disp: ^Rfl: anastrozole (ARIMIDEX) 1 mg tablet^Take 1 tablet by mouth once daily.^Disp: 90 tablet^Rfl: 3 LUPRON DEPOT 3.75 mg injection^Inject 3.75 mg intramuscularly once every month. Once a month during chemotherapy^Disp: ^Rfl: ALLERGIES/INTOLERANCES: ALLERGIES No Known Allergies FAMILY HISTORY: FAMILY HISTORY Problem Relation Age of Onset Heart Maternal Grandmother triple by pass Breast Cancer Maternal Grandmother Coronary Artery Disease Paternal Grandfather Diabetes Paternal Grandfather other (DC) Paternal Grandfather age 45 Breast Cancer Other Maternal Great Aunt x2 SOCIAL HISTORY: . Lives in [place]. REVIEW OF SYSTEMS: Complete 10 system ROS done and negative except as stated above in the HPI. PHYSICAL EXAM: BP 118/76 Pulse 74 Resp 20 Ht 172.7 cm (5' 8) Wt 67 kg (147 lb 11.3 oz) LMP 11/25/2021 SpO2 100% BMI 22.46 kg/m2 Body mass index is 22.46 kg/m . Estimated body surface area is 1.79 meters squared as calculated from the following: Height as of this encounter: 172.7 cm (5' 8). Weight as of this encounter: 67 kg (147 lb 11.3 oz). ECO- Fully active, able to carry on all pre-disease performance w/o restriction. General: Well appearing female in no acute distress. HEENT: Head normocephalic and atraumatic. EOMI, no scleral icterus. Oropharynx clear. Neck: Supple, no mass. Breast: S/p bilateral mastectomy with reconstruction. No palpable masses, concerning skin changes or axillary adenopathy bilaterally. CV: No LE edema. Pulm: Non-labored breathing pattern. Abdomen: Non-distended. MSK: No joint deformities or effusions. Skin: Warm, dry and intact without any concerning lesions. Neuro: Strength and sensation grossly intact, no focal deficits. LABS: Latest Ref Rng & Units 12/04/2023 CBC WBC 3.70 - 11.00 k/uL 4.87 RBC 3.90 - 5.20 m/uL 4.58 Hemoglobin 11.5 - 15.5 g/dL 13.4 Hematocrit 36.0 - 46.0 % 39.2 MCV 80.0 - 100.0 fL 85.6 MCH 26.0 - 34.0 pg 29.3 MCHC 30.5 - 36.0 g/dL 34.2 RDW-CV 11.5 - 15.0 % 14.4 Platelet Count 150 - 400 k/uL 84 MPV 9.0 - 12.7 fL 11.6 Baso% % 0.6 Abs Neut (ANC) 1.45 - 7.50 k/uL 2.59 Abs Lymph 1.00 - 4.00 k/uL 1.63 Abs [place] <0.87 k/uL 0.51 Abs Eosin <0.46 k/uL 0.11 Abs Baso <0.11 k/uL 0.03 NRBC /100 WBC 0.0 Latest Ref Rng & Units 12/04/2023 CMP Sodium 136 - 144 mmol/L 139 Potassium 3.7 - 5.1 mmol/L 3.7 Chloride 97 - 105 mmol/L 103 CO2 22 - 30 mmol/L 29 Glucose 74 - 99 mg/dL 85 BUN 7 - 21 mg/dL 15 Creatinine 0.58 - 0.96 mg/dL 0.58 EGFR >=60 mL/min/1.73m 123 Protein, Total 6.3 - 8.0 g/dL 7.5 Albumin 3.9 - 4.9 g/dL 4.6 Calcium 8.5 - 10.2 mg/dL 9.6 Bilirubin, Total 0.2 - 1.3 mg/dL 0.4 AST 13 - 35 U/L 28 ALT 7 - 38 U/L 23 Alkaline Phosphatase 34 - 123 U/L 234 IMAGING: Breast MRI 09/10/23: RESULT: Comparison is made to exams dated: 09/10/2023 breast MRI - [facility], 04/17/2022 specimen, 03/08/2022 ultrasound, 03/08/2022 mammogram - [facility], 03/07/2022 breast MRI - [facility], and 11/10/2021 mammogram - [facility]. MRI images were obtained with a dedicated breast coil. Post processing was performed including 3D multiplanar reconstruction. MRI images were obtained with a dedicated breast coil. The patient was studied using the dedicated breast coil in the Siemens 1.5 Aida scanner. Initial axial STIR imaging was carried out followed by axial T1-weighted GRE imaging both before and after IV administration of 12 ml of Dotarem. Subsequently, subtraction imaging and 3-D reconstruction were completed on an independent workstation. An additional 4 minute high resolution sequence was performed after the first two 1 minute post-contrast sequences. Complex volumetric analysis requiring post processing was performed using a semi-automated software XMLAWacad, on an independent workstation by the physician, with images created, reviewed, and archived. RESULT: RIGHT RECONSTRUCTED BREAST: There are postoperative changes consistent with the patient's mastectomy and implant reconstruction. A single lumen prepectoral silicone implant appears intact although integrity cannot be fully assessed without dedicated sequences. No ve-implant fluid collection. No suspicious mass or nonmass enhancement. LEFT RECONSTRUCTED BREAST: There are postoperative changes consistent with the patient's mastectomy and implant reconstruction. A single lumen prepectoral silicone implant appears intact although integrity cannot be fully assessed without dedicated sequences. No ev-implant fluid collection. No suspicious mass or nonmass enhancement. BILATERAL AXILLARY AND INTERNAL MAMMARY LYNDA BASINS: No suspicious axillary or internal mammary lymph nodes. IMPRESSION IMPRESSION: BENIGN FINDING RIGHT RECONSTRUCTED BREAST: BI-RADS 2 Postoperative changes. No MRI evidence of malignancy. LEFT RECONSTRUCTED BREAST: BI-RADS 2 Postoperative changes. No MRI evidence of malignancy. The exam was reviewed by a staff physician. SUMMARY: The patient is under the care of Dr. Paulina Null. CT A/P 03/22/23: RESULT: Liver: No mass. Biliary: No bile duct dilation. Gallbladder is unremarkable. Spleen: No mass. Splenomegaly measuring 13.3 cm. Pancreas: No mass or duct dilation. Adrenals: No mass. Kidneys: No mass, calculus or hydronephrosis. GI tract: No dilation or wall thickening. Lymph nodes: No abdominal or pelvic lymphadenopathy. Mesentery/Peritoneum: No ascites or mass. Retroperitoneum: No mass. Vasculature: - Abdominal aorta and iliac arteries: No aneurysm. - Celiac and SMA: Patent without stenosis. - Portal venous system (SMV, splenic vein, portal vein and branches): Patent. - Hepatic veins: Patent. Pelvis: No mass, ascites or fluid collection. Bones/Soft Tissues: No significant finding. Lower thorax: Unremarkable. Cement Finisher Helper (topogram) images: No additional findings. IMPRESSION IMPRESSION: Splenomegaly. Bone Scan 02/08/23: IMPRESSION: Mild diffuse uptake in the axial and appendicular skeleton likely posttherapy effect. No suspicious foci of activity. Likely degenerative/arthritic changes as described. IMPRESSION: Stephen Self is a very pleasant 33 year old woman diagnosed with left-sided ER+/VA+/HER2-positive breast cancer s/p neoadjuvant chemotherapy, bilateral mastectomy/L SLNB, [id number], followed by adjuvant Kadcyla x 12 cycles (discontinued due to elevated liver function tests and thromobcytopenia). I discussed patient's diagnosis with her today with review of her relevant imaging and pathology reports. We discussed the overall approach to treatment and specifically reviewed after breast cancer. I discussed the POSITIVE trial in detail which included women with stage I-III HR+ breast cancer, who had received endocrine therapy for 18-30 months and then interrupted treatment to attempt . Short term follow-up from this trial demonstrates the relative safety of this approach and I think this is reasonable in her case. I reviewed the importance of resuming endocrine therapy after attempting or becoming . I would favor extended duration endocrine therapy in her case considering young age. I also discussed the importance of contraception while actively on treatment/endocrine therapy. STAGING: Cancer Staging Malignant neoplasm of upper-outer quadrant of left breast in female, estrogen receptor positive (HCC) Staging form: Breast, AJCC 8th Edition - Clinical stage from 11/07/2021: cN0, cM0, G2, ER+, VA+, HER2+ - Signed by Paulina Null DO on 11/07/2021 PLAN: Continue monthly lupron Continue anastrozole Monitor bone density Q2 years Advised contraception while on treatment Discussed the option of interrupting endocrine therapy between 18-30 months for attempts at conceiving, and the importance of resuming endocrine therapy and completing course of treatment after attempts at conceiving/ Labs notable for thrombocytopenia (suspect related to prior treatment and splenomegaly on imaging) and elevated ALP (bone scan negative); continue to monitor Return to clinic as needed. She will continue to follow with Dr. Ayers and I provided my contact information for any future needs or concerns. I spent >45 minutes in total on this patient encounter including time face to face with patient, review of relevant records, clinical documentation, patient education and counseling, and coordination with other treatment team members. Anabelle Stubbs MD cc: Paulina Ayers documented in this encounter [facility] 12-27-2023 Nurse Note Additional intake questions: Has the patient had fever, nausea, vomiting, diarrhea, constipation, fatigue for > 1 week? No Does the patient have a decreased appetite? No Does patient want to see a Jammer Operator? No (yes to any of above refer patient to schedulers for dietitian appointment) ) Does patient have any new or increased numbness or tingling of extremities? No Is patient interested in fertility information? No Does patient need any prescription refills? No Does patient have an advanced directive in place? No [facility] 12-27-2023 Nurse Note Additional intake questions: Has the patient had fever, nausea, vomiting, diarrhea, constipation, fatigue for > 1 week? No Does the patient have a decreased appetite? No Does patient want to see a Jammer Operator? No (yes to any of above refer patient to schedulers for dietitian appointment) ) Does patient have any new or increased numbness or tingling of extremities? No Is patient interested in fertility information? No Does patient need any prescription refills? No Does patient have an advanced directive in place? No documented in this encounter [facility] 12-07-2023 Nurse Note Follow up Last mammogram on: 09/2021 bilateral Results: see report Is the patient active on MyChart Yes Electronically Signed By: Valentina Mars LPN In Department: GENERAL SURGERY REVIEW OF PATIENT HISTORY: OB History T0 L0 SAB0 IAB0 Ectopic0 Multiple0 Live Births0 Comment: Menarche: 17; Age at 1st : n/a; Premenopausal FAMILY HISTORY Problem Relation Age of Onset Heart Maternal Grandmother triple by pass Breast Cancer Maternal Grandmother Coronary Artery Disease Paternal Grandfather Diabetes Paternal Grandfather other (DC) Paternal Grandfather age 45 Breast Cancer Other Maternal Great Aunt x2 PAST MEDICAL HISTORY Diagnosis Date Abnormal Pap smear of cervix Anal fissure Anemia with crohns Cancer (HCC) breast cancer Crohn's disease (HCC) 07/09/2013 Hypoglycemia Iron 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 dietary iron intake 02/13/2023 Iron malabsorption 02/13/2023 Malignant neoplasm of left breast (HCC) 09/2021 PMH - PAST MEDICAL HISTORY OF 04/08/2004 Normal color vision PMH - PAST MEDICAL HISTORY OF 12/23/2001 Pneumonia PAST SURGICAL HISTORY Procedure Laterality Date COLONOSCOPY 07/09/2013 EXTRACTION ERUPTED TOOTH/EXR age 17 PAST SURGICAL HISTORY OF 07/09/2006 Cyst removal in right wrist PAST SURGICAL HISTORY OF masectomy and reconstruction TONSILLECTOMY PRIMARY/SECONDARY AGE 13/> 10/07/2008 BREAST NEEDLE CORE BIOPSY LT Left 09/2021 Social History Tobacco Use Smoking status: Never Smokeless tobacco: Never Vaping Use Vaping Use: Never used Substance Use Topics Alcohol use: Not Currently Comment: Occasionally Drug use: No [facility] Work Phone: 12-07-2023 Nurse Note Follow up Last mammogram on: 09/2021 bilateral Results: see report Is the patient active on MyChart Yes Electronically Signed By: Valentina Mars LPN In Department: GENERAL SURGERY REVIEW OF PATIENT HISTORY: OB History T0 L0 SAB0 IAB0 Ectopic0 Multiple0 Live Births0 Comment: Menarche: 17; Age at 1st : n/a; Premenopausal FAMILY HISTORY Problem Relation Age of Onset Heart Maternal Grandmother triple by pass Breast Cancer Maternal Grandmother Coronary Artery Disease Paternal Grandfather Diabetes Paternal Grandfather other (DC) Paternal Grandfather age 45 Breast Cancer Other Maternal Great Aunt x2 PAST MEDICAL HISTORY Diagnosis Date Abnormal Pap smear of cervix Anal fissure Anemia with crohns Cancer (HCC) breast cancer Crohn's disease (HCC) 07/09/2013 Hypoglycemia Iron 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 dietary iron intake 02/13/2023 Iron malabsorption 02/13/2023 Malignant neoplasm of left breast (HCC) 09/2021 PMH - PAST MEDICAL HISTORY OF 04/08/2004 Normal color vision PMH - PAST MEDICAL HISTORY OF 12/23/2001 Pneumonia PAST SURGICAL HISTORY Procedure Laterality Date COLONOSCOPY 07/09/2013 EXTRACTION ERUPTED TOOTH/EXR age 17 PAST SURGICAL HISTORY OF 07/09/2006 Cyst removal in right wrist PAST SURGICAL HISTORY OF masectomy and reconstruction TONSILLECTOMY PRIMARY/SECONDARY AGE 13/> 10/07/2008 BREAST NEEDLE CORE BIOPSY LT Left 09/2021 Social History Tobacco Use Smoking status: Never Smokeless tobacco: Never Vaping Use Vaping Use: Never used Substance Use Topics Alcohol use: Not Currently Comment: Occasionally Drug use: No documented in this encounter [facility] 12-07-2023 History of Present illness Narrative REASON FOR TODAY'S VISIT: Patient presents with: Established Patient HISTORY of PRESENT ILLNESS: Stephen Self is a 33 year old female initially presented 11/2021 with a LEFT breast 2.7 cm IDC, NG 2 with DCIS @ 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 MRI showed 2 satellite lesions. 2nd look performed and [address] appeared normal. ER+VA+HER2+ [id number] Underwent neoadjuvant chemotherapy, TCHP with Dr. Ayers, Finished 03/10/22 Genetic testing was negative s/p a LEFT nipple sparing mastectomy, SLNB, RIGHT prophylactic nipple sparing mastectomy with pre-pec implant placement on 04/17/2022 Final pathology LEFT: Residual breast invasive carcinoma, 1.6 cm (closet margin < 0.2 mm to superior margin), 0/4 LN (2 intra-mammary nodes negative). ER+VA+HER2+ [id number] No PMRT was indicated HISTORY: Follows with Dr. Ayers / Steff Hernandez Completed adjuvant Kadcycla - stopped after #12 due to elevated liver enzymes Currently on Lupron shots and Arimidex She is excited to be expecting a child (sister in law is her surrogate) She underwent oocyte harvest and has 6 embryos saved She states she is motivated to carry her own child and is coming up on 2 years since her diagnosis. She is aware there may be an opportunity for her to take a temporary break from endocrine therapy for childbearing and states she would like to meet with someone who can discuss with her more. ROS: HEENT: Denies vision changes or headaches BREAST: Denies palpating any new breast masses, no breast pain, no skin changes, no nipple discharge ABD: Denies any abdominal pain or new changes in bowel habits MUSCULOSKELETAL: Denies any bone, joint or muscle pain IMAGIN09/11/23 BREAST MRI IMPRESSION: BENIGN FINDING RIGHT RECONSTRUCTED BREAST: BI-RADS 2 Postoperative changes. No MRI evidence of malignancy. LEFT RECONSTRUCTED BREAST: BI-RADS 2 Postoperative changes. No MRI evidence of malignancy. EXAMINATION: GEN alert and orientated, well nourished, calm Regional Lymph Nodes There is no concerning supraclavicular, infraclavicular or cervical lymphadenopathy. BREASTS: The patient was examined in the upright and supine position. 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 MRI showed 2 satellite lesions. 2nd look performed and [address] appeared normal. ER+VA+HER2+ [id number] Underwent neoadjuvant chemotherapy, TCHP with Dr. Ayers, Finished 9/2/22 Genetic testing was negative s/p a LEFT nipple sparing mastectomy, SLNB, RIGHT prophylactic nipple sparing mastectomy with pre-pec implant placement on 04/17/2022 Final pathology LEFT: Residual breast invasive carcinoma, 1.6 cm (closet margin < 0.2 mm to superior margin), 0/4 LN (2 intra-mammary nodes negative). ER+VA+HER2+ [id number] No PMRT was indicated Genetic testing negative PLAN:. Ms. Self will follow-up with Dr. Ayers/ Steff Hernandez as per usual - currently on Lupron/AI We did discuss the results for the POSITIVE trial and in some patients, the safety of stopping endocrine therapy for a period of time to allow for childbearing. I do not know if her situation meets the criteria, but at her request - referral to Dr. Anabelle Stubbs - our medical oncologist for young women and after breast cancer specialist to discuss She has embryos harvested and states she was not able to get but was actively trying prior to her breast cancer diagnosis - so she is interested in IVF. She has seen Dr. Frank for the embryo harvest The importance of monthly self breast exam was stressed. She has our names and numbers to stay in touch if she has any questions, concerns or problems in the interim. Paulina Null DO Breast Surgeon cc: Braden Torres DO (Dr) [address] [facility] [address] [place] [id number] Dr. Chantal Stubbs documented in this encounter [facility] 12-07-2023 Note HNO ID: [id number] Author: PAULINA NULL DO Service: ? Author Type: Physician Type: Progress Notes Filed: 12/24/2023 02:38 Note Text: REASON FOR TODAY'S VISIT: Patient presents with: Established Patient HISTORY of PRESENT ILLNESS: Stephen Self is a 33 year old female initially presented 11/2021 with a LEFT breast 2.7 cm IDC, NG 2 with DCIS @ 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 MRI showed 2 satellite lesions. 2nd look performed and [address] appeared normal. ER+VA+HER2+ [id number] Underwent neoadjuvant chemotherapy, TCHP with Dr. Ayers, Finished 03/10/22 Genetic testing was negative s/p a LEFT nipple sparing mastectomy, SLNB, RIGHT prophylactic nipple sparing mastectomy with pre-pec implant placement on 04/17/2022 Final pathology LEFT: Residual breast invasive carcinoma, 1.6 cm (closet margin < 0.2 mm to superior margin), 0/4 LN (2 intra-mammary nodes negative). ER+VA+HER2+ [id number] No PMRT was indicated HISTORY: Follows with Dr. Ayers / Steff Hernandez Completed adjuvant Kadcycla - stopped after #12 due to elevated liver enzymes Currently on Lupron shots and Arimidex She is excited to be expecting a child (sister in law is her surrogate) She underwent oocyte harvest and has 6 embryos saved She states she is motivated to carry her own child and is coming up on 2 years since her diagnosis. She is aware there may be an opportunity for her to take a temporary break from endocrine therapy for childbearing and states she would like to meet with someone who can discuss with her more. ROS: HEENT: Denies vision changes or headaches BREAST: Denies palpating any new breast masses, no breast pain, no skin changes, no nipple discharge ABD: Denies any abdominal pain or new changes in bowel habits MUSCULOSKELETAL: Denies any bone, joint or muscle pain IMAGIN09/11/23 BREAST MRI IMPRESSION: BENIGN FINDING RIGHT RECONSTRUCTED BREAST: BI-RADS 2 Postoperative changes. No MRI evidence of malignancy. LEFT RECONSTRUCTED BREAST: BI-RADS 2 Postoperative changes. No MRI evidence of malignancy. EXAMINATION: GEN alert and orientated, well nourished, calm Regional Lymph Nodes There is no concerning supraclavicular, infraclavicular or cervical lymphadenopathy. BREASTS: The patient was examined in the upright and supine position. 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 MRI showed 2 satellite lesions. 2nd look performed and [address] appeared normal. ER+VA+HER2+ [id number] Underwent neoadjuvant chemotherapy, TCHP with Dr. Ayers, Finished 03/10/22 Genetic testing was negative s/p a LEFT nipple sparing mastectomy, SLNB, RIGHT prophylactic nipple sparing mastectomy with pre-pec implant placement on 04/17/2022 Final pathology LEFT: Residual breast invasive carcinoma, 1.6 cm (closet margin < 0.2 mm to superior margin), 0/4 LN (2 intra-mammary nodes negative). ER+VA+HER2+ [id number] No PMRT was indicated Genetic testing negative PLAN:. Ms. Self will follow-up with Dr. Ayers/ Steff Hernandez as per usual - currently on Lupron/AI We did discuss the results for the POSITIVE trial and in some patients, the safety of stopping endocrine therapy for a period of time to allow for childbearing. I do not know if her situation meets the criteria, but at her request - referral to Dr. Anabelle Stubbs - our medical oncologist for young women and after breast cancer specialist to discuss She has embryos harvested and states she was not able to get but was actively trying prior to her breast cancer diagnosis - so she is interested in IVF. She has seen Dr. Frank for the embryo harvest The importance of monthly self breast exam was stressed. She has our names and numbers to stay in touch if she has any questions, concerns or problems in the interim. Paulina Null DO Breast Surgeon cc: Braden Torres DO ([facility]) [address] [facility] [address] [facility] [id number] Dr[address] Chantal Stubbs [facility] 12-04-2023 Nurse Note Lupron injection administered, tolerated well, no immediate adverse reactions noted. Em Toribio LPN [facility] 12-04-2023 Nurse Note Lupron injection administered, tolerated well, no immediate adverse reactions noted. Em Toribio LPN documented in this encounter [facility] 11-08-2023 History of Present illness Narrative Subjective Patient ID: Stephen Self is a 33 y.o. female who presents for Follow-up (Crohn's disease. Pt reports doing well. ). QUAN Robbins is a pleasant 33-year-old female with known Crohn's disease. Recent breast cancer status post bilateral mastectomy underwent aggressive chemotherapy. After chemotherapy was completed had persistent elevated alkaline phosphatase mild elevation in transaminases. Transaminases returned normal alk phos is starting drop but remains elevated. Workup for liver disease was undertaken unremarkable. MRCP of liver showed no evidence of biliary or pancreatic ductal ectasias or scarring. There appears to be no sign of liver injury at this time and she is slowly improving. I advised her that there is no sign of PSC the only confounding thing is to make sure that her Crohn's is in remission and she has not had a colonoscopy since 2019. She is agreeable to colonoscopy. My working thoughts are that elevated alk phosphatase is from her chemotherapy and hopefully will slowly improve over the next several months. She is currently receiving lab work every month at [facility]. She was recently exposed to mono had a sore throat neck pain and has not felt well over the last month with low-grade fevers she is wondering if she should have a monotest. Review of Systems Constitutional: Negative. HENT: Negative. Eyes: Negative. Respiratory: Negative. Cardiovascular: Negative. Endocrine: Negative. Genitourinary: Negative. Neurological: Negative. Hematological: Negative. Objective Physical Exam Vitals and nursing note reviewed. Constitutional: Appearance: Normal appearance. HENT: Head: Normocephalic. Mouth/Throat: Mouth: Mucous membranes are moist. Pharynx: Oropharynx is clear. Eyes: Conjunctiva/sclera: Conjunctivae normal. Pupils: Pupils are equal, round, and reactive to light. Cardiovascular: Rate and Rhythm: Normal rate and regular rhythm. Heart sounds: Normal heart sounds. Pulmonary: Effort: Pulmonary effort is normal. Breath sounds: Normal breath sounds. Abdominal: General: Abdomen is flat. Bowel sounds are normal. Palpations: Abdomen is soft. Musculoskeletal: General: Normal range of motion. Cervical back: Normal range of motion and neck supple. Skin: General: Skin is warm and dry. Neurological: General: No focal deficit present. Mental Status: She is alert and oriented to person, place, and time. Psychiatric: Behavior: Behavior normal. Assessment/Plan Diagnoses and all orders for this visit: Crohn's disease of both small and large intestine without complication (Multi) Elevated alkaline phosphatase level Pharyngitis due to infectious mononucleosis - Mononucleosis Screen; Future Will arrange mono testing. Alk phos elevation likely chemotherapy-induced. No evidence of PSC by MRCP or biochemical testing. Recommend colonoscopy to assess for disease activity of Crohn's disease. Luz Garza DO 11/08/23 4:20 PM documented in this encounter [facility] Work Phone: 11-06-2023 Nurse Note Lupron injection administered, right buttock,tolerated well, no immediate adverse reactions noted. Em Toribio LPN [facility] 11-06-2023 Nurse Note Lupron injection administered, right buttock,tolerated well, no immediate adverse reactions noted. Em Toribio LPN documented in this encounter [facility] 10-10-2023 History of Present illness Narrative Pt here for injection of Lupron. Given IM in Left buttocks. Pt tolerated well. For all other information regarding today, see today's OV note with Steff Hernandez. Tiffany Mckinney LPN documented in this encounter [facility] 10-10-2023 History of Present illness Narrative Chief Complaint Patient presents with: Established Patient HPI: Stephen Self is a 33 year old female who presents here today for follow up breast cancer. Per Dr. Ayers's previous note: Crohn's disease (dx 2013), vitiligo and dysmenorrhea. She self discovered a mass in the left breast. She underwent a bilateral diagnostic mammogram on 10/04/2021. The breasts were noted to be extremely dense lowering the sensitivity of the mammography. The palpable abnormality however corresponded to a 1.2 x 1.4 cm spiculated nodule in the deep lateral axillary region of the breast. Microcalcifications were identified within it. Patient underwent ultrasound of the breast on the same day. In the left breast corresponding to the palpable abnormality there was a 1.3 x 1.3 x 1.1 heterogeneous hypoechoic solid mass with microcalcifications at the 1 o'clock position of the breast 8 cm from the nipple. Increased vascularity was observed. Patient was referred to Dr. Farrar. She underwent a left core needle biopsy on 10/07/2021. 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 VA variable 10 to 50%, moderate intensity. HER-2/chaz 3+ IHC. Regular menses. OCPs starting age 17. Stopped age 30 to try to get . Stopped trying to get because had flare of Crohn's. Generalized itching all over--started last April. Triggered by heat (showever). Injured coccyx snowboarding in high school. Hurting more lately. Crohn's under control with anti-inflammatory diet. She underwent MRI of the breast on 10/20/2021. In the left breast in the upper outer quadrant there was an irregular mass with internal biopsy clip artifact representing biopsy-proven invasive carcinoma. There was an adjacent clumped nonmass enhancement that correlated to the adjacent suspicious focal asymmetry/architectural distortion with calcifications on the 10/04/2021 mammogram. Overall area of contiguous involvement in the upper outer quadrant (mass with adjacent non-mass enhancement) measured up to 2.7 cm in greatest dimension. He was noted that on a postbiopsy diagnostic mammogram that was available for comparison there was a possible group of indeterminate appearing calcifications in the upper outer quadrant posterior depth for which magnification views were recommended. Two additional abnormalities were identified in the breast--There is an additional irregular 0.5 x 0.4 x 0.4 cm (transverse by AP by cc dimensions) in the left upper-outer quadrant (series 7 image 75) which demonstrates heterogeneous enhancement with prominent central washout kinetics concerning for an additional site of involvement. There is an additional 0.4 x 0.4 x 0.4 cm mass upper CENTRAL breast (series 7 image 76) which also demonstrates heterogeneous enhancement with prominent central washout kinetics concerning for an additional site of involvement. LYMPH NODES: There are no suspicious axillary or internal mammary lymph nodes in either breast. RIGHT BREAST: There is no suspicious mass or area of non-mass enhancement identified within limitation of marked background parenchymal enhancement. Underwent MRI guided biopsy with clip placement 11/01/2021. Pathology: A. Breast, left, upper outer aspect, calcifications, Twirl clip, stereotactic core biopsy: --Atypical ductal hyperplasia (ADH). --Microcalcifications are present in ducts adjacent to ADH. --Please see comment. B. Breast, left, at 10:00, 3 cm from the nipple, Q clip, ultrasound-guided core biopsy: --Fibroadenoma. Second MRI breast biopsy 11/10/2021 Pathology: A. 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 Previous therapy: 1) TCH-P. Completed cycle #6 on 03/14/2022. 2) Herceptin x1 dose pre-operatively 04/07/2022. 3) Underwent left nipple sparing mastectomy, left sentinel lymph node mapping and biopsy, right prophylactic nipple sparing mastectomy along with right breast reconstruction direct to implant with total acellular dermal matrix coverage and left breast reconstruction direct to implant with total acellular dermal matrix coverage on 04/17/2022. Pathology: Tumor bed: The tumor bed measures 40 x 40 mm in size, and shows variable cellularity with an average of 22% viable cells; of these viable cells 96.5% are ductal carcinoma in situ and 3.5% are invasive carcinoma. The invasive carcinoma measures 16 mm in greatest dimension. Margins: Margin Status for Invasive Carcinoma:All margins negative for invasive carcinoma. Distance from Invasive Carcinoma to Closest Margin:1 mm Closest Margin(s) to Invasive Carcinoma: Superior Margin Status for DCIS:All margins negative for DCIS Distance from DCIS to Closest Margin:1.0 mm Closest Margin(s) to DCIS:Posterior Distance from DCIS to Superior Margin:1.5 mm A: Lymph nodes, left sentinel, x3 axillary, excision: - Four lymph nodes, negative for carcinoma (0/4). B: Breast, left, mastectomy: - Residual invasive ductal carcinoma, post neoadjuvant therapy, measuring 16 mm in greatest dimension. - Residual ductal carcinoma in situ, low and intermediate grades (nuclear grades 1 and 2) with comedonecrosis and microcalcifications. - Focal atypical ductal hyperplasia (ADH). - Margins are negative for carcinoma (distance to closest margin: 1 mm to superior margin). - Q clip, twirl clip, hourglass clip, and coil clip are identified. - Two intramammary lymph nodes, negative for carcinoma (0/2). - Biopsy site changes are present. - Fibroadenoma. - Background mammary parenchyma with fibroadenomatoid changes, fibrocystic changes, and microcalcifications. C: Breast, left, nipple, resection: - Mammary tissue, negative for carcinoma. D: Breast, right, mastectomy: - PENDING IHCs E: Breast, right, nipple, resection: - Benign mammary tissue. 4) Kadcyla (06/13/2022 -present). Dose reduced to 3 mg/kg cycle #5. Stopped after cycle #12 due to elevated liver enzymes and persistent thrombocytopenia. Current therapy: 1) Lupron monthly. 2) Anastrozole. Started 09/10/2022. Pt. was seen in UC for URI. Symptoms improving. Appetite:Good. Energy level:Good. It's getting better. Recent fever/URI. Resp:denies cough or sob Cardiac:denies chest pain/palpitations GI:denies abd pain, n/v, moving bowels regularly :denies dysuria/hematuria Extrem:denies pain Endo:+hot flashes They aren't too bad. Mainly at night. Neuro:denies symptoms Heme:denies bleeding The ROS is otherwise negative. Past medical history, appointments, medications, allergies reviewed. No changes. EXAM: BP 113/80 Pulse 88 Temp 36.6 C (97.9 F) (Temporal) Wt 65 kg (143 lb 6.4 oz) LMP 11/25/2021 SpO2 97% BMI 21.80 kg/m APPEARANCE Well appearing, alert, in no acute distress, well-hydrated, well nourished. HEART RRR with normal S1 and S2, no murmurs LUNG clear to auscultation LYMPH NODES No cervical lymphadenopathy, No supraclavicular lymphadenopathy, and No axillary lymphadenopathy. ABDOMEN bowel sounds normoactive, soft, non-tender EXTREMITIES No edema NEURO Awake, alert and oriented x 3, Normal gait, and No involuntary motions. SKIN Skin color, texture, turgor normal, no suspicious rashes or lesions LABS: Latest Ref Rng 08/13/2023 09/12/2023 10/10/2023 WBC 3.70 - 11.00 k/uL 4.49 6.08 2.87 (L) RBC 3.90 - 5.20 m/uL 4.71 4.65 4.92 Hemoglobin 11.5 - 15.5 g/dL 13.9 13.5 14.3 Hematocrit 36.0 - 46.0 % 40.6 39.9 41.5 MCV 80.0 - 100.0 fL 86.2 85.8 84.3 MCH 26.0 - 34.0 pg 29.5 29.0 29.1 MCHC 30.5 - 36.0 g/dL 34.2 33.8 34.5 RDW-CV 11.5 - 15.0 % 14.0 14.6 14.4 Platelet Count 150 - 400 k/uL 95 (L) 98 (L) 70 (L) MPV 9.0 - 12.7 fL 11.2 11.0 11.5 NRBC /100 WBC 0.0 0.0 0.0 Absolute nRBC <0.01 k/uL <0.01 <0.01 <0.01 Neut% % 49.0 53.7 42.5 Abs Neut (ANC) 1.45 - 7.50 k/uL 2.20 3.27 1.22 (L) Lymph% % 45.0 34.5 33.1 Abs Lymph 1.00 - 4.00 k/uL 2.02 2.10 0.95 (L) [place]% % 4.0 8.1 19.5 Abs [place] <0.87 k/uL 0.18 0.49 0.56 Eosin% % 1.0 2.5 4.2 Abs Eosin <0.46 k/uL 0.04 0.15 0.12 Baso% % 1.0 1.0 0.7 Abs Baso <0.11 k/uL 0.04 0.06 <0.03 Platelet Estimate Decreased Red Cell Morph Reviewed: unremarkable DTYPE Manual Auto Auto Immature Gran % % 0.2 0.0 IMMATURE GRANS (ABS) <0.10 k/uL <0.03 <0.03 CMP: Pending ASSESSMENT/PLAN: 1. Malignant neoplasm of upper-outer quadrant of left breast in female, estrogen receptor positive (HCC) - ICD9: 174.4, V86.0, ICD10: C50.412, Z17.0 (primary diagnosis) 2. HER2-positive carcinoma of left breast (HCC) - ICD9: 174.9, ICD10: C50.912 cT2 cN0 M0 ER/VA positive, HER2 overexpressed clinical stage IIA infiltrating ductal carcinoma of the left breast. ypT1c pN0. -Significant family history of breast cancer. Several family members who were tested were negative for deleterious gene mutation. Patient's genetic testing through [facility] was negative (see scanned report 11/25/2021). -Adjuvant radiation was not recommended. - No new concerning findings on exam. - Reviewed CBC with pt. - CMP pending. - Tolerating lupron/arimidex overall well. - Continue arimidex. - Lupron today and continue monthly. - Repeat CBC/CMP in one week. - Follow up in 3 months. - Pt. aware to call office any questions/concerns. The patient indicates understanding of these issues and agrees with the plan. All documentation from previous visit of 07/11/23-Dr. Ayers was copied and pasted, documentation has been reviewed and edited as necessary for today's visit. Steff Hernandez APRN.KASH documented in this encounter [facility] 10-09-2023 Miscellaneous Notes I attempted to contact pt to check on her status. I left and message but was able to get a hold of her who notes that her neck is still sore but not as bad as last night. He also notes that her fever as resolved with temps this morning around 99.8. I discussed with him my concerns with her history of breast cancer and the risk of neutropenic fever. I re enforced with him the importance of going the ER if her symptoms are not improving so that lab work and a more detailed evaluation could be performed. understands and is agreeable. documented in this encounter [facility] 10-08-2023 History of Present illness Narrative This note was created using 3Jamter. Subjective Stephen Self is a 33 year old female. HPI Pt noted a scratchy throat and headache that started 3 days go. Headache has mostly resolved but now pt notes a fever and neck pain that started this morning. 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 Review of Systems Constitutional: Positive for fever. HENT: Negative for congestion, ear pain and sore throat. Musculoskeletal: Positive for myalgias and neck pain. Neurological: Positive for headaches. Objective BP 140/72 Pulse (!) 121 Temp (!) 38.2 C (100.8 F) Resp 18 Wt 66.7 kg (147 lb 0.8 oz) LMP 11/25/2021 SpO2 98% BMI 22.36 kg/m Physical Exam Vitals and nursing note reviewed. Constitutional: General: She is not in acute distress. Appearance: Normal appearance. She is not ill-appearing. HENT: Head: Normocephalic. Mouth/Throat: Mouth: Mucous membranes are moist. Eyes: Conjunctiva/sclera: Conjunctivae normal. Neck: Comments: Tenderness at the base of the neck extending into the mid neck region. Complains of neck stiffness when attempting to touch chin to chest Cardiovascular: Rate and Rhythm: Regular rhythm. Tachycardia present. Pulmonary: Effort: Pulmonary effort is normal. Breath sounds: Normal breath sounds. Musculoskeletal: General: Normal range of motion. Skin: General: Skin is warm and dry. Neurological: General: No focal deficit present. Mental Status: She is alert. Comments: Negative Kernig's and Brudzinski sign Psychiatric: Mood and Affect: Mood normal. Behavior: Behavior normal. Assessment and Plan ASSESSMENT/PLAN: 1. URI, acute - ICD9: 465.9, ICD10: J06.9 - Discussed viral etiology and rationale for treatment. - Symptomatic treatment with prn analgesia - Supportive care with fluids and rest - The patient may also use OTC decongestants prn, OTC cough and cold meds as needed, and ibuprofen and Tylenol as needed for pain and fever. - Follow up in 3-5 days if symptoms persist or sooner if worsening of symptoms -Patient encouraged to monitor symptoms closely and return to the ER for any new or worsening concerns. -Influenza negative. Did discuss COVID testing which patient declined. - INFLUENZA A&B MOLECULAR (POC) Negrito Kaye APRN.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 documented in this encounter [facility] 09-12-2023 Nurse Note Pt here for injection of Lupron. Given IM in right buttocks. Pt tolerated well. Tiffany Mckinney LPN documented in this encounter [facility] 09-10-2023 Miscellaneous Notes Radiology Service Progress Note PATIENT NAME: Stephen Self DATE OF SERVICE: September 10, 2023 TIME: 4:17 PM PATIENT IDENTITY VERIFICATION COMPLETED USING TWO (2) IDENTIFIERS: Name and Date of confirmed by patient verbally and Name and Date of confirmed by identification band. FALL SCREENING: Has the patient had 2 falls in the last year or 1 fall with injury or currently using an Ambulatory Assistive Device (Walker, Cane, Wheelchair, Crutches, etc.)? No PATIENT GENDER DATA: Female. status: : No status: NO. 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 Em Duff LPN documented in this encounter [facility] 07-10-2023 History of Present illness Narrative Subjective Patient ID: Stephen Self is a 33 y.o. female who presents for Follow-up (Patient was referred back to us for elevated liver enzymes, pt reports was taking an encapsulated liver supplement. Patient stopped taking this a few weeks ago. HX of Crohns's disease no issues/ symptoms and not on any medication. Patient reports she has been doing really well. ). QUAN Robbins is a pleasant 33-year-old female who is seen today in regards to elevated alkaline phosphatase. I met her 2 years ago when she was occluded back to [place] from [facility]. She grew up in the [place] area was in [place] [facility] with her who was in the [employer]. She was diagnosed with Crohn's disease just before relocating back urine been controlled with steroids and oral mesalamine. At time of initial evaluation colonoscopy just been completed revealing inflammatory changes with skip lesions throughout her ileum transverse colon and rectum. We discussed biologic therapy and she was lost to follow-up. In the interval period of time she was diagnosed with infiltrating ductal breast cancer and underwent bilateral mastectomy chemotherapy and breast reconstruction. She is under the care of Dr. Moreau. She has had imaging of her abdomen including ultrasound, CT scan with normal-appearing liver without dominant mass and remains with persistently elevated alkaline phosphatase with normal transaminases and normal bilirubin. Fractionated alkaline phosphatase did show predominant liver component. She denies any itching no active Crohn's symptoms denies any diarrhea abdominal bloating. Is controlling Crohn's with diet is on a low sugar low gluten and dairy free diet. She denies any rectal bleeding no skin lesions but complains of joint pain which she blames on chemotherapy. Review of Systems Constitutional: Negative. HENT: Negative. Eyes: Negative. Respiratory: Negative. Cardiovascular: Negative. Endocrine: Negative. Genitourinary: Negative. Musculoskeletal: Positive for myalgias. Neurological: Negative. Hematological: Negative. All other systems reviewed and are negative. Objective Physical Exam Assessment/Plan Problem List Items Addressed This Visit ICD-10-CM Elevated alkaline phosphatase level R74.8 Relevant Orders MRCP pancreas w and wo IV contrast CBC and Auto Differential Comprehensive Metabolic Panel C-Reactive Protein Alkaline Phosphatase, Isoenzymes Gamma GT Crohn's disease (CMS/HCC) - Primary K50.90 Relevant Orders MRCP pancreas w and wo IV contrast CBC and Auto Differential Comprehensive Metabolic Panel C-Reactive Protein Alkaline Phosphatase, Isoenzymes Gamma GT Will check MRCP arrange repeat labs fractionated alkaline phosphatase. Will follow-up after MRCP will need colonoscopy which will be delayed until next office visit. Luz Garza DO 07/10/23 1:56 PM documented in this encounter [facility] Work Phone: 06-12-2023 History of Present illness Narrative Pt here for injection of Lupron. Given IM in Left buttocks. Pt tolerated well. Tiffany Mckinney LPN documented in this encounter [facility] 06-06-2023 Miscellaneous Notes notified of good BHCG #2 in surrogate= Donna . plan- OB scan 1 week in BW IVf will send finacials to see if covered, surrogate has OB insurance. plan sergio get OB scan 06-13-23 at 9:30am. let u s know if any issue with billing, still tryoing to take care of fet billing, sergio give message to Shreya or Carlyn to check that out. told patient that billing issues take a few biling cycles to correct, states she and surrogate were both billed. I gave that last week . Zeina Wong APRN.CNP June 06, 2023 6:07 PM documented in this encounter [facility] 05-30-2023 Miscellaneous Notes terrance diaz on cell, good news, good level of = 1211 in surrogate gina [place], plan- can call if any questions, [facility]. stay on estrace , get refills from local pharmacy and progesterone until instructed to stop repeat BHCG 1 week. if good rsie willhave US examm the following week. Zeina Wong APRN.CNP May 30, 2023 3:44 PM documented in this encounter [facility] 05-15-2023 Miscellaneous Notes Patient informed. Labs needed added prior to pt's apt today 1st attempt: LM When pt returns call please inform of Lab apt today documented in this encounter [facility] 05-15-2023 Miscellaneous Notes Your frozen embryo transfer is scheduled for : 2:00 pm Please plan to drink 16-20 ounces of fluid an hour before the transfer. Arrive 15 minutes before your scheduled transfer time. I would like to review with you the embryo transfer plan form that you signed prior to starting the cycle. The planned number of embryos to thaw is: 1x BL Do you want to thaw another embryo if one fails to survive? Yes Do you agree to have the embryologist select the best embryo for transfer ? Yes If you had PGT testing, did you want a specific embryo transferred? N/A Any other instructions? No Confirmed thaw plan with ; could not get a hold of . will pass on transfer instructions to the surrogate (his sister). Alexus Mistry documented in this encounter [facility] 05-08-2023 Miscellaneous Notes Appointment notes updated. Patient had port removed. She will come in early for labs. Alta Beckford LPN Add CBC/CMP when here for Lupron on 05/15. Chantal Ayers DO documented in this encounter [facility] 05-07-2023 Miscellaneous Notes kady tnotified that FET sergio be 05-16-23 embryology will aquilino he neymar 05-15-23 to confirm thaw and transfer [fabienne, lab sergio tellher time to be here for transfer, Patient will tell surrogate Donna, . of the time to be here. patient and will get their Viromeds drawn this week on 05-09-23 at 9am in IVF. paid already.Zeina Wong APRN.CNP May 07, 2023 4:06 PM documented in this encounter [facility] 05-07-2023 Miscellaneous Notes Patient has been identified by name and date of : Yes Requested Prescriptions Pending Prescriptions Disp Refills anastrozole (ARIMIDEX) 1 mg tablet 90 tablet 3 Sig: Take 1 tablet by mouth once daily. RX INSTRUCTIONS: Patient aware RX will be sent to pharmacy. No need to notify patient. Atla Beckford LPN documented in this encounter [facility] 05-03-2023 History of Present illness Narrative patient and are doing FET with surrogate, embryois were made for autologous use, updat eo nprotocl for retesting IP cpule requires Viroimed screesn, surrogate did sign letter of forgivenss to transfer embryos for autologous use,, dicussed with Dr. Walker and Attaran, couple needs Viromed scren, sergio get done next week, plan- message left on cell to call me to discuss. can call me back or I will call before going home today.. Zeina Wong APRN.CNP May 03, 2023 3:09 PM spoke topatient, ' discussed need for Viromeds since not done attime of embryo making, plan- patient agrees will come in on 05-09-23 at 9am with , bith need to do, request if FET canbe on 05-16-23 , latest possible time, if surrogatelining is goood on I sergio request for her. karena sent to [facility], patient want callbefoire 2pmn tomorow to pay for the 2 viromeds,. appt to schedulers for the testing date completed lab josephine req for Viromeds 05-10-23.Zeina Wong APRN.CNP May 03, 2023 5:50 PM I spent a total of 15 minutes on the date of the service which included preparing to see the patient, completing clinical documentation, counseling and educating the patient/family/caregiver, ordering medications, tests, or procedures, communicating with other HCPs (not separately reported), and care coordination (not separately reported). documented in this encounter [facility] 04-30-2023 Miscellaneous Notes Pateint called to ask if her 05/10 appointment can be a phone call visit. Please advise documented in this encounter [facility] 04-28-2023 History of Present illness Narrative updated episode. need to sign FET with dr. Foley. Zeina Wong APRN.CNP April 28, 2023 6:33 PM documented in this encounter [facility] 04-23-2023 Miscellaneous Notes sent message and consents again, they need to be nbotarized. Zeina Wong APRN.CNP April 23, 2023 8:47 PM This patient gave consent to this Medical Advice Message and is aware that it may result in a bill to their insurance, as well as the possibility of receiving a bill for a copay and/or deductible. They are an established patient, but are not seeking information exclusively about a problem treated during an in person or video visit in the last seven days. I did not recommend an in person or video visit within seven days of my reply. See the benchee message reply for my assessment and plan. I spent a total of 8 minutes reviewing the patient's prior medical records and current request for medical advice, prescribing medications or ordering tests (if applicable), replying to the patient, and documenting the encounter.' Zeina Wong APRN.CNP April 23, 2023 8:48 PM documented in this encounter [facility] 04-20-2023 Miscellaneous Notes message left got lawyre letters surrogate was expecting menses soon, if all want the lissa to begin, then she starts the pill on first day of flow and call me when she gets it, we plan the other testing of BHCg for pregancy early in cycles and midcyle ling and labs abpout cd 14 ors. [facility] will need other medications ordered medrol doxy and progesterone for the fet cycle for the surrogate. need thaw plkan and consent retruned.. Zeina Wong APRN.CNP April 20, 2023 8:59 PM documented in this encounter [facility] 04-20-2023 Miscellaneous Notes Both referrals faxed and confirmations scanned into [employer]. Paulina Chang Check out comments: Referral to Dr. Odonnell for crohn's disease. Referral to Dr. Baker at [facility] for port removal. CBC when here for next Lupron injection. added to Nov appt OV/CBC/CMP in 3 months with me or Steff when here for Lupron. added to appt notes for Rudy documented in this encounter [facility] 04-16-2023 Nurse Note Pt here for injection of [id number]. Given IM in left buttocks. Pt tolerated well. Tiffany Mckinney LPN documented in this encounter [facility] 04-16-2023 History of Present illness Narrative Oncologic problem(s): 1) HER2 positive breast cancer. HPI: The patient is a 33-year-old female with a past medical history significant for Crohn's disease (dx 2013), vitiligo and dysmenorrhea. She self discovered a mass in the left breast. She underwent a bilateral diagnostic mammogram on 10/04/2021. The breasts were noted to be extremely dense lowering the sensitivity of the mammography. The palpable abnormality however corresponded to a 1.2 x 1.4 cm spiculated nodule in the deep lateral axillary region of the breast. Microcalcifications were identified within it. Patient underwent ultrasound of the breast on the same day. In the left breast corresponding to the palpable abnormality there was a 1.3 x 1.3 x 1.1 heterogeneous hypoechoic solid mass with microcalcifications at the 1 o'clock position of the breast 8 cm from the nipple. Increased vascularity was observed. Patient was referred to Dr. Farrar. She underwent a left core needle biopsy on 10/07/2021. 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 VA variable 10 to 50%, moderate intensity. HER-2/chaz 3+ IHC. Regular menses. OCPs starting age 17. Stopped age 30 to try to get . Stopped trying to get because had flare of Crohn's. Generalized itching all over--started last April. Triggered by heat (showever). Injured coccyx snowboarding in high school. Hurting more lately. Crohn's under control with anti-inflammatory diet. She underwent MRI of the breast on 10/20/2021. In the left breast in the upper outer quadrant there was an irregular mass with internal biopsy clip artifact representing biopsy-proven invasive carcinoma. There was an adjacent clumped nonmass enhancement that correlated to the adjacent suspicious focal asymmetry/architectural distortion with calcifications on the 10/04/2021 mammogram. Overall area of contiguous involvement in the upper outer quadrant (mass with adjacent non-mass enhancement) measured up to 2.7 cm in greatest dimension. He was noted that on a postbiopsy diagnostic mammogram that was available for comparison there was a possible group of indeterminate appearing calcifications in the upper outer quadrant posterior depth for which magnification views were recommended. Two additional abnormalities were identified in the breast--There is an additional irregular 0.5 x 0.4 x 0.4 cm (transverse by AP by cc dimensions) in the left upper-outer quadrant (series 7 image 75) which demonstrates heterogeneous enhancement with prominent central washout kinetics concerning for an additional site of involvement. There is an additional 0.4 x 0.4 x 0.4 cm mass upper CENTRAL breast (series 7 image 76) which also demonstrates heterogeneous enhancement with prominent central washout kinetics concerning for an additional site of involvement. LYMPH NODES: There are no suspicious axillary or internal mammary lymph nodes in either breast. RIGHT BREAST: There is no suspicious mass or area of non-mass enhancement identified within limitation of marked background parenchymal enhancement. Underwent MRI guided biopsy with clip placement 11/01/2021. Pathology: A. Breast, left, upper outer aspect, calcifications, Twirl clip, stereotactic core biopsy: --Atypical ductal hyperplasia (ADH). --Microcalcifications are present in ducts adjacent to ADH. --Please see comment. B. Breast, left, at 10:00, 3 cm from the nipple, Q clip, ultrasound-guided core biopsy: --Fibroadenoma. Second MRI breast biopsy 11/10/2021 Pathology: A. 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 Previous therapy: 1) TCH-P. Completed cycle #6 on 03/14/2022. 2) Herceptin x1 dose pre-operatively 04/07/2022. 3) Underwent left nipple sparing mastectomy, left sentinel lymph node mapping and biopsy, right prophylactic nipple sparing mastectomy along with right breast reconstruction direct to implant with total acellular dermal matrix coverage and left breast reconstruction direct to implant with total acellular dermal matrix coverage on 04/17/2022. Pathology: Tumor bed: The tumor bed measures 40 x 40 mm in size, and shows variable cellularity with an average of 22% viable cells; of these viable cells 96.5% are ductal carcinoma in situ and 3.5% are invasive carcinoma. The invasive carcinoma measures 16 mm in greatest dimension. Margins: Margin Status for Invasive Carcinoma:All margins negative for invasive carcinoma. Distance from Invasive Carcinoma to Closest Margin:1 mm Closest Margin(s) to Invasive Carcinoma: Superior Margin Status for DCIS:All margins negative for DCIS Distance from DCIS to Closest Margin:1.0 mm Closest Margin(s) to DCIS:Posterior Distance from DCIS to Superior Margin:1.5 mm A: Lymph nodes, left sentinel, x3 axillary, excision: - Four lymph nodes, negative for carcinoma (0/4). B: Breast, left, mastectomy: - Residual invasive ductal carcinoma, post neoadjuvant therapy, measuring 16 mm in greatest dimension. - Residual ductal carcinoma in situ, low and intermediate grades (nuclear grades 1 and 2) with comedonecrosis and microcalcifications. - Focal atypical ductal hyperplasia (ADH). - Margins are negative for carcinoma (distance to closest margin: 1 mm to superior margin). - Q clip, twirl clip, hourglass clip, and coil clip are identified. - Two intramammary lymph nodes, negative for carcinoma (0/2). - Biopsy site changes are present. - Fibroadenoma. - Background mammary parenchyma with fibroadenomatoid changes, fibrocystic changes, and microcalcifications. C: Breast, left, nipple, resection: - Mammary tissue, negative for carcinoma. D: Breast, right, mastectomy: - PENDING IHCs E: Breast, right, nipple, resection: - Benign mammary tissue. 4) Kadcyla (06/13/2022 -present). Dose reduced to 3 mg/kg cycle #5. Stopped after cycle #12 due to elevated liver enzymes and persistent thrombocytopenia. Presents for ongoing oncologic management. Current therapy: 1) Lupron monthly. 2) Anastrozole. Started 09/10/2022. Interim history: Nosebleeds less frequent and easier to stop. No further gingival bleeding. No diarrhea. Continues anastrozole. Stable hot flashes. Still mainly at night and tolerable. Crohn's hasn't flared. No MS pain. PMH, medications and allergies personally reviewed by me today. Any changes documented in appropriate section. ROS: Constitutional: Denies episodes of fever and night sweats. Not significantly fatigued. Normal appetite. Neuro: Denies RAE, vertigo, dizziness and imbalance. Resp: Denies cough, wheeze and hemoptysis. Denies shortness of breath at rest. Denies HILL. CVS: Denies exertional chest pain, PND, orthopnea and LE edema. GI: Denies dysgeusia. Denies symptoms of stomatitis. Denies dysphagia and odynophagia. : Denies dysuria or gross hematuria. No symptoms of bladder outlet obstruction. Endo: Denies polyuria and polydipsia. Denies heat and cold intolerance. Musculoskeletal: See above. Derm: See HPI. Heme: Denies unusual bleeding and unexplained bruising. Psych: Normal mood. PHYSICAL EXAM: VITALS: Blood pressure 124/80, pulse 83, temperature 37.1 C (98.7 F), weight 66.7 kg (147 lb), last menstrual period 11/25/2021, SpO2 100 %. EYES: Sclerae are anicteric bilaterally. LYMPHATIC: There is no palpable cervical, supraclavicular, axillary adenopathy. RESPIRATORY: Inspiratory breath sounds are of normal intensity in all allen. CARDIOVASCULAR: Rhythm is regular. 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 Bilateral implants. No surrounding chest wall nodules. ABDOMEN: The abdomen is nondistended. Extremities: No swelling or edema. LABS: Component Latest Ref Rng & Units 04/16/2023 WBC 3.70 - 11.00 k/uL 4.20 RBC 3.90 - 5.20 m/uL 4.38 Hemoglobin 11.5 - 15.5 g/dL 12.3 Hematocrit 36.0 - 46.0 % 36.6 MCV 80.0 - 100.0 fL 83.6 MCH 26.0 - 34.0 pg 28.1 MCHC 30.5 - 36.0 g/dL 33.6 RDW-CV 11.5 - 15.0 % 17.6 (H) Platelet Count 150 - 400 k/uL 74 (L) MPV 9.0 - 12.7 fL 11.1 Neut% % 48.8 Abs Neut (ANC) 1.45 - 7.50 k/uL 2.05 Lymph% % 37.4 Abs Lymph 1.00 - 4.00 k/uL 1.57 Macomb% % 10.0 Abs Macomb <0.87 k/uL 0.42 Eosin% % 2.1 Abs Eosin <0.46 k/uL 0.09 Baso% % 1.0 Abs Baso <0.11 k/uL 0.04 Immature Gran % % 0.7 IMMATURE GRANS (ABS) <0.10 k/uL 0.03 NRBC /100 WBC 0.0 Absolute nRBC <0.01 k/uL <0.01 DTYPE Auto ASSESSMENT/PLAN: (C50.412, Z17.0) Malignant neoplasm of upper-outer quadrant of left breast in female, estrogen receptor positive (HCC) (primary encounter diagnosis) Assessment: -cT2 cN0 M0 ER/VA positive, HER2 overexpressed clinical stage IIA infiltrating ductal carcinoma of the left breast. -ypT1c pN0. -Significant family history of breast cancer. Several family members who were tested were negative for deleterious gene mutation. Patient's genetic testing through [facility] was negative (see scanned report 11/25/2021). -Had egg harvesting. Sinformed she would require at a minimum 5 years of OS with AI therapy following surgery. -Previously reviewed tumor board recommendations. -Tolerating Lupron and anastrozole well. -Adjuvant radiation was not recommended. -Discussed oophorectomy since she is now going through the process of surrogate parenting. -Discussed plan for follow-up. Explained that surveillance imaging not routinely ordered. However appropriate imaging would be obtained for any symptoms that imaging is indicated. She expressed an understanding of this. Plan: -Okay for port removal. -She will contact Dr. Mckenzie to discuss oophorectomy. -Continue monthly Lupron injection. Okay for injection today. -Continue anastrozole. (D64.81, T45.1X5A) 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 chemotherapy (D50.8) Iron 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 dietary iron intake (K90.9) Iron malabsorption (K50.80) Crohn's disease of both small and large intestine without complication (HCC) Assessment: -Never had menorrhagia. -History of Crohn's disease which has been inactive at least since starting chemotherapy. -Most recent colonoscopy was in approximately 2020. -Received parenteral iron. Plan: -Referral to Dr. Odonnell for her history of Crohn's disease which may flare since now completed chemotherapy. (R74.8) Elevated alkaline phosphatase level Assessment: -Ultrasound of liver, gallbladder and biliary tree unremarkable. -Fractionation of alkaline phosphatase suggested bone source. -Bone scan negative. -Likely elevated alk phos is from regenerative marrow from chemotherapy. Plan: -Continue to monitor with the expectation alk phos will decline after chemotherapy. Thrombocytopenia. Splenomegaly. Assessment: -No evidence of liver disease on ultrasound liver and spleen. -Platelet count increased. Plan: -Continue monitoring platelet count and consider repeat ultrasound spleen in a couple months. Portions of this documentation were copied and pasted from previous office visit notes in order to provide a cohesive continuity of the history. The note has been reviewed and edited and updated as necessary. I spent a total of 25 minutes on the date of the service which included preparing to see the patient, [id number] patient care, completing clinical documentation, obtaining and/or reviewing separately obtained history, performing a medically appropriate examination, counseling and educating the patient/family/caregiver, ordering medications, tests, or procedures, communicating with other HCPs (not separately reported), and communicating results to the patient/family/caregiver. Chantal Ayers DO Cc; Braden Torres DO documented in this encounter [facility] 03-23-2023 Miscellaneous Notes I spoke with her chair side today. Please cancel the future cycles of Kadcyla. Keep office visit with labs 04/13. She will continue on monthly Lupron. Chantal Ayers DO Labs scheduled and treatment schedule updated Patient is aware that we will delay treatment X 1 week. Patient is aware we will repeat labs on Sunday when she is here for iron. She would like to speak to Dr. Ayers while here for iron Sunday. Patient agreed to try the Klor Con again. I suggested she make a slurry out of the tablet or place it in applesauce. Alta Beckford LPN She states she has Klor Con at home and it's too big and cant swallow, she tried the Klor Con packets and that makes her gag so she has not been taking either. She denies any diarrhea. She asks if she can have treatment Sunday. Tiffany Mckineny LPN Alk phos remains elevated and platelets are slow to recover, so please schedule for STAT CT A/P. Also, restart potassium supplement. Rx sent to [facility]. Has she been having diarrhea? Chantal Ayers DO documented in this encounter [facility] 03-22-2023 History of Present illness Narrative Radiology Service Progress Note PATIENT NAME: Stephen Self DATE OF SERVICE: March 22, 2023 TIME: 4:10 PM PATIENT IDENTITY VERIFICATION COMPLETED USING TWO (2) IDENTIFIERS: Name and Date of confirmed by patient verbally. FALL SCREENING: Has the patient had 2 falls in the last year or 1 fall with injury or currently using an Ambulatory Assistive Device (Walker, Cane, Wheelchair, Crutches, etc.)? No PATIENT GENDER DATA: Female. status: : No status: NO. PATIENT RELEVANT IMPLANT DATA REVIEWED: Yes RADIOLOGY DEPARTMENT: CT; Exam(s) Completed: Abdomen/Pelvis PERIPHERAL IV DATA: power port accessed by [employer] SIGNED BY: RT Real(R) March 22, 2023 4:10 PM documented in this encounter [facility] 03-20-2023 History of Present illness Narrative Pt here for injection of Lupron. Given IM in right buttocks. Pt tolerated well. Tiffany Mckinney LPN documented in this encounter [facility] 03-19-2023 Miscellaneous Notes IRON SUCROSE #5 WAS ADDED ON TO APPOINTMENT THAT IS SCHEDULED ON Sunday03/23/23 Dannielle Javier Pss Spoke to patient. Answered questions. Per patient, she was supposed to get a 5th dose of iron but never received. Treatment was delayed d/t low platelets. Can we add iron on with treatment this Sunday? Thank you. Krissy Beckham RN Pt calling in stating she has a few questions regarding her treatment on Sunday. Please call pt at earliest convenience documented in this encounter [facility] 03-16-2023 History of Present illness Narrative Labs resulted. Count low at [address] [place] [address] Ayers aware and ordered to delay 1 more week to repeat labs and possible tx. Pt verbalized understanding. Maria G Ibrahim RN documented in this encounter [facility] 03-06-2023 History of Present illness Narrative Oncologic problem(s): 1) HER2 positive breast cancer. HPI: The patient is a 32-year-old female with a past medical history significant for Crohn's disease (dx 2013), vitiligo and dysmenorrhea. She self discovered a mass in the left breast. She underwent a bilateral diagnostic mammogram on 10/04/2021. The breasts were noted to be extremely dense lowering the sensitivity of the mammography. The palpable abnormality however corresponded to a 1.2 x 1.4 cm spiculated nodule in the deep lateral axillary region of the breast. Microcalcifications were identified within it. Patient underwent ultrasound of the breast on the same day. In the left breast corresponding to the palpable abnormality there was a 1.3 x 1.3 x 1.1 heterogeneous hypoechoic solid mass with microcalcifications at the 1 o'clock position of the breast 8 cm from the nipple. Increased vascularity was observed. Patient was referred to Dr. Farrar. She underwent a left core needle biopsy on 10/07/2021. 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 VA variable 10 to 50%, moderate intensity. HER-2/chaz 3+ IHC. Regular menses. OCPs starting age 17. Stopped age 30 to try to get . Stopped trying to get because had flare of Crohn's. Generalized itching all over--started last April. Triggered by heat (showever). Injured coccyx snowboarding in high school. Hurting more lately. Crohn's under control with anti-inflammatory diet. She underwent MRI of the breast on 10/20/2021. In the left breast in the upper outer quadrant there was an irregular mass with internal biopsy clip artifact representing biopsy-proven invasive carcinoma. There was an adjacent clumped nonmass enhancement that correlated to the adjacent suspicious focal asymmetry/architectural distortion with calcifications on the 10/04/2021 mammogram. Overall area of contiguous involvement in the upper outer quadrant (mass with adjacent non-mass enhancement) measured up to 2.7 cm in greatest dimension. He was noted that on a postbiopsy diagnostic mammogram that was available for comparison there was a possible group of indeterminate appearing calcifications in the upper outer quadrant posterior depth for which magnification views were recommended. Two additional abnormalities were identified in the breast--There is an additional irregular 0.5 x 0.4 x 0.4 cm (transverse by AP by cc dimensions) in the left upper-outer quadrant (series 7 image 75) which demonstrates heterogeneous enhancement with prominent central washout kinetics concerning for an additional site of involvement. There is an additional 0.4 x 0.4 x 0.4 cm mass upper CENTRAL breast (series 7 image 76) which also demonstrates heterogeneous enhancement with prominent central washout kinetics concerning for an additional site of involvement. LYMPH NODES: There are no suspicious axillary or internal mammary lymph nodes in either breast. RIGHT BREAST: There is no suspicious mass or area of non-mass enhancement identified within limitation of marked background parenchymal enhancement. Underwent MRI guided biopsy with clip placement 11/01/2021. Pathology: A. Breast, left, upper outer aspect, calcifications, Twirl clip, stereotactic core biopsy: --Atypical ductal hyperplasia (ADH). --Microcalcifications are present in ducts adjacent to ADH. --Please see comment. B. Breast, left, at 10:00, 3 cm from the nipple, Q clip, ultrasound-guided core biopsy: --Fibroadenoma. Second MRI breast biopsy 11/10/2021 Pathology: A. 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 Previous therapy: 1) TCH-P. Completed cycle #6 on 03/14/2022. 2) Herceptin x1 dose pre-operatively 04/07/2022. 3) Underwent left nipple sparing mastectomy, left sentinel lymph node mapping and biopsy, right prophylactic nipple sparing mastectomy along with right breast reconstruction direct to implant with total acellular dermal matrix coverage and left breast reconstruction direct to implant with total acellular dermal matrix coverage on 04/17/2022. Pathology: Tumor bed: The tumor bed measures 40 x 40 mm in size, and shows variable cellularity with an average of 22% viable cells; of these viable cells 96.5% are ductal carcinoma in situ and 3.5% are invasive carcinoma. The invasive carcinoma measures 16 mm in greatest dimension. Margins: Margin Status for Invasive Carcinoma:All margins negative for invasive carcinoma. Distance from Invasive Carcinoma to Closest Margin:1 mm Closest Margin(s) to Invasive Carcinoma: Superior Margin Status for DCIS:All margins negative for DCIS Distance from DCIS to Closest Margin:1.0 mm Closest Margin(s) to DCIS:Posterior Distance from DCIS to Superior Margin:1.5 mm A: Lymph nodes, left sentinel, x3 axillary, excision: - Four lymph nodes, negative for carcinoma (0/4). B: Breast, left, mastectomy: - Residual invasive ductal carcinoma, post neoadjuvant therapy, measuring 16 mm in greatest dimension. - Residual ductal carcinoma in situ, low and intermediate grades (nuclear grades 1 and 2) with comedonecrosis and microcalcifications. - Focal atypical ductal hyperplasia (ADH). - Margins are negative for carcinoma (distance to closest margin: 1 mm to superior margin). - Q clip, twirl clip, hourglass clip, and coil clip are identified. - Two intramammary lymph nodes, negative for carcinoma (0/2). - Biopsy site changes are present. - Fibroadenoma. - Background mammary parenchyma with fibroadenomatoid changes, fibrocystic changes, and microcalcifications. C: Breast, left, nipple, resection: - Mammary tissue, negative for carcinoma. D: Breast, right, mastectomy: - PENDING IHCs E: Breast, right, nipple, resection: - Benign mammary tissue. Presents for ongoing oncologic management. Current therapy: 1) Kadcyla (06/13/2022 -present). Dose reduced to 3 mg/kg cycle #5. 2) Lupron monthly. 3) Anastrozole. Started 09/10/2022. Interim history: Has been having nosebleeds and gingival bleeding. Gingival bleeding not as frequent last few days. Can stop nosebleeds with pressure. No diarrhea-confirmed again today. Lower back pain for a few days after Neulasta. Continues anastrozole. Stable hot flashes. Still mainly at night and tolerable. Crohn's. PMH, medications and allergies personally reviewed by me today. Any changes documented in appropriate section. ROS: Constitutional: Denies episodes of fever and night sweats. Not significantly fatigued. Normal appetite. Neuro: Denies RAE, vertigo, dizziness and imbalance. Resp: Denies cough, wheeze and hemoptysis. Denies shortness of breath at rest. Denies HILL. CVS: Denies exertional chest pain, PND, orthopnea and LE edema. GI: Denies dysgeusia. Denies symptoms of stomatitis. Denies dysphagia and odynophagia. : Denies dysuria or gross hematuria. No symptoms of bladder outlet obstruction. Endo: Denies polyuria and polydipsia. Denies heat and cold intolerance. Musculoskeletal: See above. Derm: See HPI. Heme: Denies unusual bleeding and unexplained bruising. Psych: Normal mood. PHYSICAL EXAM: VITALS: Blood pressure 110/68, pulse 84, temperature 37 C (98.6 F), temperature source Temporal, weight 66 kg (145 lb 8 oz), last menstrual period 11/25/2021, SpO2 100 %. EYES: Sclerae are anicteric bilaterally. No sign of oral mucosal or gingival bleeding LYMPHATIC: There is no palpable cervical, supraclavicular, axillary adenopathy. RESPIRATORY: Inspiratory breath sounds are of normal intensity in all allen. CARDIOVASCULAR: Rhythm is regular. BREAST: Deferred today. ABDOMEN: The abdomen is nondistended. Extremities: No swelling or edema. LABS: Component Latest Ref Rng & Units 03/06/2023 WBC 3.70 - 11.00 k/uL 4.95 RBC 3.90 - 5.20 m/uL 3.90 Hemoglobin 11.5 - 15.5 g/dL 10.4 (L) Hematocrit 36.0 - 46.0 % 32.9 (L) MCV 80.0 - 100.0 fL 84.4 MCH 26.0 - 34.0 pg 26.7 MCHC 30.5 - 36.0 g/dL 31.6 RDW-CV 11.5 - 15.0 % 22.6 (H) Platelet Count 150 - 400 k/uL 81 (L) MPV 9.0 - 12.7 fL 10.1 Neut% % 57.4 Abs Neut (ANC) 1.45 - 7.50 k/uL 2.84 Lymph% % 30.3 Abs Lymph 1.00 - 4.00 k/uL 1.50 Macomb% % 9.5 Abs Macomb <0.87 k/uL 0.47 Eosin% % 1.6 Abs Eosin <0.46 k/uL 0.08 Baso% % 1.0 Abs Baso <0.11 k/uL 0.05 Immature Gran % % 0.2 IMMATURE GRANS (ABS) <0.10 k/uL <0.03 NRBC /100 WBC 0.0 Absolute nRBC <0.01 k/uL <0.01 DTYPE Auto Protein, Total 6.3 - 8.0 g/dL 7.3 Albumin 3.9 - 4.9 g/dL 4.3 Calcium 8.5 - 10.2 mg/dL 9.2 Bilirubin, Total 0.2 - 1.3 mg/dL 0.5 Alkaline Phosphatase 34 - 123 U/L 246 (H) AST 13 - 35 U/L 46 (H) ALT 7 - 38 U/L 27 Glucose 74 - 99 mg/dL 101 (H) BUN 7 - 21 mg/dL 6 (L) Creatinine 0.58 - 0.96 mg/dL 0.53 (L) Sodium 136 - 144 mmol/L 137 Potassium 3.7 - 5.1 mmol/L 3.1 (L) Chloride 97 - 105 mmol/L 103 CO2 22 - 30 mmol/L 24 Anion Gap 9 - 18 mmol/L 10 eGFR >=60 mL/min/1.73m 127 Magnesium 1.7 - 2.3 mg/dL 1.9 ASSESSMENT/PLAN: (C50.412, Z17.0) Malignant neoplasm of upper-outer quadrant of left breast in female, estrogen receptor positive (HCC) (primary encounter diagnosis) Assessment: -cT2 cN0 M0 ER/VA positive, HER2 overexpressed clinical stage IIA infiltrating ductal carcinoma of the left breast. -ypT1c pN0. -Significant family history of breast cancer. Several family members who were tested were negative for deleterious gene mutation. Patient's genetic testing through [facility] was negative (see scanned report 11/25/2021). -Had egg harvesting. Sinformed she would require at a minimum 5 years of OS with AI therapy following surgery. -Previously reviewed tumor board recommendations. -Tolerating Lupron and anastrozole well. -Adjuvant radiation was not recommended. -Reviewed CBC. Thrombocytopenia with nosebleeds and gingival bleeding. Plan: -Delay Kadcyla a week or so and dose reduce to 2.4 mg/m2 with Neulasta support because of thrombocytopenia and bleeding as above. -Premed dexamethasone dose 8 mg. -Continue monthly Lupron injection. -Continue anastrozole. 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 -She never had menorrhagia. -History of Crohn's disease which has been inactive at least since starting chemotherapy. -Most recent colonoscopy was in approximately 2019. She is to see Dr. Early. -Reviewed labs with her in detail. She does not appear to be absorbing oral iron very well at all. Discussed parenteral iron. Plan: -Complete iron sucrose. -Referral to Dr. Odonnell for her history of Crohn's disease which will likely flare after she completes chemotherapy. (R74.8) Elevated alkaline phosphatase level Assessment: -Ultrasound of liver, gallbladder and biliary tree unremarkable. -Fractionation of alkaline phosphatase suggested bone source. -Bone scan negative. -Likely elevated alk phos is from regenerative marrow from chemotherapy. Plan: -Continue to monitor with the expectation alk phos will decline after chemotherapy. Portions of this documentation were copied and pasted from previous office visit notes in order to provide a cohesive continuity of the history. The note has been reviewed and edited and updated as necessary. I spent a total of 25 minutes on the date of the service which included preparing to see the patient, [id number] patient care, completing clinical documentation, obtaining and/or reviewing separately obtained history, performing a medically appropriate examination, counseling and educating the patient/family/caregiver, ordering medications, tests, or procedures, communicating results to the patient/family/caregiver, and care coordination (not separately reported). Chantal Ayers DO Cc; Braden Torres DO documented in this encounter [facility] 02-13-2023 Miscellaneous Notes sent messAGE, SPOKE ON PHONE TODAY./ SENT MESSAGE WITH [employer]. Zeina Wong APRN.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 February 13, 2023 1:59 PM This patient gave consent to this Medical Advice Message and is aware that it may result in a bill to their insurance, as well as the possibility of receiving a bill for a copay and/or deductible. They are an established patient, but are not seeking information exclusively about a problem treated during an in person or video visit in the last seven days. I did not recommend an in person or video visit within seven days of my reply. See the benchee message reply for my assessment and plan. I spent a total of <5 minutes reviewing the patient's prior medical records and current request for medical advice, prescribing medications or ordering tests (if applicable), replying to the patient, and documenting the encounter. Zeina Wong APRN.KASH February 13, 2023 1:59 PM documented in this encounter [facility] 02-09-2023 Miscellaneous Notes pt notified and voices understanding. Will be seen in office on 02/13. Tiffany Mckinney LPN Good news. Can let her know bone scan is negative. Chantal Ayers DO documented in this encounter [facility] 02-08-2023 History of Present illness Narrative RADIOLOGY SERVICE PROGRESS NOTE SERVICE DATE: 02/08/2023 SERVICE TIME: 10:30 AM PATIENT IDENTITY VERIFICATION COMPLETED USING TWO (2) STANDARD IDENTIFIERS: Name and Date of confirmed by patient verbally FALL SCREENING: Has the patient had 2 falls in the last year or 1 fall with injury or currently using an Ambulatory Assistive Device (Walker, Cane, Wheelchair, Crutches, etc.)? No PATIENT GENDER DATA: .female : No status: No ALLERGIES: Reviewed and unchanged MEDICATIONS REVIEWED: No PATIENT RELEVANT IMPLANT DATA REVIEWED: Not Applicable CREATININE: Creatinine Date Value Ref Range Status 01/23/2023 0.53 (L) 0.58 - 0.96 mg/dL Final 01/02/2023 0.52 (L) 0.58 - 0.96 mg/dL Final 12/12/2022 0.53 (L) 0.58 - 0.96 mg/dL Final Estimated Glomerular Filtration Rate Date Value Ref Range Status 01/23/2023 127 >=60 mL/min/1.73m Final Comment: Estimated Glomerular Filtration Rate (eGFR) is calculated using the 2021 CKD-EPI creatinine equation. This equation utilizes serum creatinine, sex, and age as parameters. The creatinine assay has traceable calibration to isotope dilution-mass spectrometry. Refer to KDIGO guidelines for clinical interpretation. In patients with unstable renal function, e.g. those with acute kidney injury, the eGFR may not accurately reflect actual GFR. P.O.C.T. RESULTS: N/A February 08, [address] PERFORMED: No IV SITE: Ambulatory: A power injectable port was accessed in the Right side. Blood Return, Flushed easily with normal saline, Good Blood Return Post Injection, Flushed with 20 cc saline followed by Heparin 500 units/5 cc, and No Complications POST EXAM PIV STATUS: Discontinued PROCEDURE TYPE: NM INJECT: Whole Body Bone Scan. 20.7 mCi Tc99m MDP. No other medications given.. ADMINISTRATION TIME: 11:12 PATIENT DISCHARGED TO: Ambulatory patient, left NM department area. A Diagnostic radioactive procedure has taken place, with no further precautions necessary other than routine body substance precautions. More information regarding radiation safety can be found using this link: [email or web address] SIGNATURE: RT Landon(Mami) PATIENT NAME: Stephen Self DATE: February 08, 2023 TIME: 11:14 AM PAGER/CONTACT #: documented in this encounter [facility] 02-05-2023 History of Present illness Narrative Radiology Service Progress Note PATIENT NAME: Stephen Self DATE OF SERVICE: February 05, 2023 TIME: 8:06 AM PATIENT IDENTITY VERIFICATION COMPLETED USING TWO (2) IDENTIFIERS: Name and Date of confirmed by patient verbally. FALL SCREENING: Has the patient had 2 falls in the last year or 1 fall with injury or currently using an Ambulatory Assistive Device (Walker, Cane, Wheelchair, Crutches, etc.)? No PATIENT GENDER DATA: Female. status: : No status: NO. PATIENT RELEVANT IMPLANT DATA REVIEWED: Not Applicable RADIOLOGY DEPARTMENT: Ultrasound PERIPHERAL IV DATA: Not applicable SIGNED BY: Elizabeth Jeronimo RDMS RVT February 05, 2023 8:06 AM documented in this encounter [facility] 01-24-2023 History of Present illness Narrative Assessment unchanged from 01/23/[address] Ayers documented in this encounter [facility] 01-23-2023 Nurse Note lupron injection administered, right buttock,tolerated well, no immediate adverse reactions noted. See office notes documented in this encounter [facility] 01-23-2023 History of Present illness Narrative Oncologic problem(s): 1) HER2 positive breast cancer. HPI: The patient is a 32-year-old female with a past medical history significant for Crohn's disease (dx 2014), vitiligo and dysmenorrhea. She self discovered a mass in the left breast. She underwent a bilateral diagnostic mammogram on 10/04/2021. The breasts were noted to be extremely dense lowering the sensitivity of the mammography. The palpable abnormality however corresponded to a 1.2 x 1.4 cm spiculated nodule in the deep lateral axillary region of the breast. Microcalcifications were identified within it. Patient underwent ultrasound of the breast on the same day. In the left breast corresponding to the palpable abnormality there was a 1.3 x 1.3 x 1.1 heterogeneous hypoechoic solid mass with microcalcifications at the 1 o'clock position of the breast 8 cm from the nipple. Increased vascularity was observed. Patient was referred to Dr. Farrar. She underwent a left core needle biopsy on 10/07/2021. 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 VA variable 10 to 50%, moderate intensity. HER-2/chaz 3+ IHC. Regular menses. OCPs starting age 17. Stopped age 30 to try to get . Stopped trying to get because had flare of Crohn's. Generalized itching all over--started last April. Triggered by heat (showever). Injured coccyx snowboarding in high school. Hurting more lately. Crohn's under control with anti-inflammatory diet. She underwent MRI of the breast on 10/20/2021. In the left breast in the upper outer quadrant there was an irregular mass with internal biopsy clip artifact representing biopsy-proven invasive carcinoma. There was an adjacent clumped nonmass enhancement that correlated to the adjacent suspicious focal asymmetry/architectural distortion with calcifications on the 10/04/2021 mammogram. Overall area of contiguous involvement in the upper outer quadrant (mass with adjacent non-mass enhancement) measured up to 2.7 cm in greatest dimension. He was noted that on a postbiopsy diagnostic mammogram that was available for comparison there was a possible group of indeterminate appearing calcifications in the upper outer quadrant posterior depth for which magnification views were recommended. Two additional abnormalities were identified in the breast--There is an additional irregular 0.5 x 0.4 x 0.4 cm (transverse by AP by cc dimensions) in the left upper-outer quadrant (series 7 image 75) which demonstrates heterogeneous enhancement with prominent central washout kinetics concerning for an additional site of involvement. There is an additional 0.4 x 0.4 x 0.4 cm mass upper CENTRAL breast (series 7 image 76) which also demonstrates heterogeneous enhancement with prominent central washout kinetics concerning for an additional site of involvement. LYMPH NODES: There are no suspicious axillary or internal mammary lymph nodes in either breast. RIGHT BREAST: There is no suspicious mass or area of non-mass enhancement identified within limitation of marked background parenchymal enhancement. Underwent MRI guided biopsy with clip placement 11/01/2021. Pathology: A. Breast, left, upper outer aspect, calcifications, Twirl clip, stereotactic core biopsy: --Atypical ductal hyperplasia (ADH). --Microcalcifications are present in ducts adjacent to ADH. --Please see comment. B. Breast, left, at 10:00, 3 cm from the nipple, Q clip, ultrasound-guided core biopsy: --Fibroadenoma. Second MRI breast biopsy 11/10/2021 Pathology: A. 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 Previous therapy: 1) TCH-P. Completed cycle #6 on 03/14/2022. 2) Herceptin x1 dose pre-operatively 04/07/2022. 3) Underwent left nipple sparing mastectomy, left sentinel lymph node mapping and biopsy, right prophylactic nipple sparing mastectomy along with right breast reconstruction direct to implant with total acellular dermal matrix coverage and left breast reconstruction direct to implant with total acellular dermal matrix coverage on 04/17/2022. Pathology: Tumor bed: The tumor bed measures 40 x 40 mm in size, and shows variable cellularity with an average of 22% viable cells; of these viable cells 96.5% are ductal carcinoma in situ and 3.5% are invasive carcinoma. The invasive carcinoma measures 16 mm in greatest dimension. Margins: Margin Status for Invasive Carcinoma:All margins negative for invasive carcinoma. Distance from Invasive Carcinoma to Closest Margin:1 mm Closest Margin(s) to Invasive Carcinoma: Superior Margin Status for DCIS:All margins negative for DCIS Distance from DCIS to Closest Margin:1.0 mm Closest Margin(s) to DCIS:Posterior Distance from DCIS to Superior Margin:1.5 mm A: Lymph nodes, left sentinel, x3 axillary, excision: - Four lymph nodes, negative for carcinoma (0/4). B: Breast, left, mastectomy: - Residual invasive ductal carcinoma, post neoadjuvant therapy, measuring 16 mm in greatest dimension. - Residual ductal carcinoma in situ, low and intermediate grades (nuclear grades 1 and 2) with comedonecrosis and microcalcifications. - Focal atypical ductal hyperplasia (ADH). - Margins are negative for carcinoma (distance to closest margin: 1 mm to superior margin). - Q clip, twirl clip, hourglass clip, and coil clip are identified. - Two intramammary lymph nodes, negative for carcinoma (0/2). - Biopsy site changes are present. - Fibroadenoma. - Background mammary parenchyma with fibroadenomatoid changes, fibrocystic changes, and microcalcifications. C: Breast, left, nipple, resection: - Mammary tissue, negative for carcinoma. D: Breast, right, mastectomy: - PENDING IHCs E: Breast, right, nipple, resection: - Benign mammary tissue. Presents for ongoing oncologic management. Current therapy: 1) Kadcyla (06/13/2022 -present). Dose reduced to 3 mg/kg cycle #5. 2) Lupron monthly. 3) Anastrozole. Started 09/10/2022. Interim history: Less nausea day #2 after increasing dex to 8 mg. Again didn't take antiemetic this cycle. Not as jittery as previously. Fatigue tolerable. No diarrhea-confirmed again today. Lower back pain for a few days after Neulasta. Continues anastrozole. Stable hot flashes. Still mainly at night and tolerable. No nosebleeds for last couple cycles. No reflux. Appetite normal. No postprandial pain. No right upper quadrant pain. PMH, medications and allergies personally reviewed by me today. Any changes documented in appropriate section. ROS: Constitutional: Denies episodes of fever and night sweats. Not significantly fatigued. Normal appetite. Neuro: Denies RAE, vertigo, dizziness and imbalance. Resp: Denies cough, wheeze and hemoptysis. Denies shortness of breath at rest. Denies HILL. CVS: Denies exertional chest pain, PND, orthopnea and LE edema. GI: Denies dysgeusia. Denies symptoms of stomatitis. Denies dysphagia and odynophagia. : Denies dysuria or gross hematuria. No symptoms of bladder outlet obstruction. Endo: Denies polyuria and polydipsia. Denies heat and cold intolerance. Musculoskeletal: See above. Derm: See HPI. Heme: Denies unusual bleeding and unexplained bruising. Psych: Normal mood. PHYSICAL EXAM: VITALS: Blood pressure 114/69, pulse 75, temperature 36.7 C (98.1 F), temperature source Temporal Artery, weight 65.8 kg (145 lb), last menstrual period 11/25/2021, SpO2 100 %. EYES: Sclerae are anicteric bilaterally. Mouth no thrush or exudate. LYMPHATIC: There is no palpable cervical, supraclavicular, axillary or inguinal adenopathy. RESPIRATORY: Inspiratory breath sounds are of normal intensity in all allen. CARDIOVASCULAR: Rhythm is regular. BREAST: Deferred today. ABDOMEN: The abdomen is nondistended. Extremities: No swelling or edema. SKIN: Some mild excoriation of the forearms. LABS: Component Latest Ref Rng & Units 01/23/2023 WBC 3.70 - 11.00 k/uL 3.25 (L) RBC 3.90 - 5.20 m/uL 3.82 (L) Hemoglobin 11.5 - 15.5 g/dL 9.6 (L) Hematocrit 36.0 - 46.0 % 30.8 (L) MCV 80.0 - 100.0 fL 80.6 MCH 26.0 - 34.0 pg 25.1 (L) MCHC 30.5 - 36.0 g/dL 31.2 RDW-CV 11.5 - 15.0 % 17.4 (H) Platelet Count 150 - 400 k/uL 85 (L) MPV 9.0 - 12.7 fL 12.4 ASSESSMENT/PLAN: (C50.412, Z17.0) Malignant neoplasm of upper-outer quadrant of left breast in female, estrogen receptor positive (HCC) (primary encounter diagnosis) Assessment: -cT2 cN0 M0 ER/VA positive, HER2 overexpressed clinical stage IIA infiltrating ductal carcinoma of the left breast. -ypT1c pN0. -Significant family history of breast cancer. Several family members who were tested were negative for deleterious gene mutation. Patient's genetic testing through [facility] was negative (see scanned report 11/25/2021). -Had egg harvesting. She was informed she would require at a minimum 5 years of OS with AI therapy following surgery. -Previously reviewed tumor board recommendations. -Tolerating Lupron and anastrozole well. -Adjuvant radiation was not recommended. -Reviewed the results of echocardiogram. Normal with no change. -Reviewed CBC. Mild anemia and thrombocytopenia. Not on antiplatelet agents or anticoagulation so platelet count allows for continued therapy. -Also discussed trend in alkaline phosphatase. She is asymptomatic with both respect to biliary symptoms and bone symptoms. Most likely from Kadcyla but will work-up further. Plan: -Continue oral iron supplement. -Continue Kadcyla at 3 mg/m2 with Neulasta support. -Premed dexamethasone dose 8 mg. -Continue monthly Lupron injection. Okay for injection today. -Continue anastrozole. -Obtain fractionation of alkaline phosphatase. -Ultrasound right upper quadrant. Portions of this documentation were copied and pasted from previous office visit notes in order to provide a cohesive continuity of the history. The note has been reviewed and edited and updated as necessary. I spent a total of 25 minutes on the date of the service which included preparing to see the patient, [id number] patient care, completing clinical documentation, obtaining and/or reviewing separately obtained history, performing a medically appropriate examination, counseling and educating the patient/family/caregiver, ordering medications, tests, or procedures, communicating with other HCPs (not separately reported), and communicating results to the patient/family/caregiver. Chantal Ayers DO Cc; Braden Torres DO documented in this encounter [facility] 01-03-2023 History of Present illness Narrative Assessment unchanged from 01/02/[address] Ayers documented in this encounter [facility] 01-02-2023 Miscellaneous Notes sent message and called patient. reviewed episode for this cycle Zeina Wong APRN.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 January 02, 2023 2:20 PM This patient gave consent to this Medical Advice Message and is aware that it may result in a bill to their insurance, as well as the possibility of receiving a bill for a copay and/or deductible. They are an established patient, but are not seeking information exclusively about a problem treated during an in person or video visit in the last seven days. I did not recommend an in person or video visit within seven days of my reply. See the benchee message reply for my assessment and plan. I spent a total of 5 minutes reviewing the patient's prior medical records and current request for medical advice, prescribing medications or ordering tests (if applicable), replying to the patient, and documenting the encounter. documented in this encounter [facility] 01-02-2023 History of Present illness Narrative Oncologic problem(s): 1) HER2 positive breast cancer. HPI: The patient is a 32-year-old female with a past medical history significant for Crohn's disease (dx 2013), vitiligo and dysmenorrhea. She self discovered a mass in the left breast. She underwent a bilateral diagnostic mammogram on 10/04/2021. The breasts were noted to be extremely dense lowering the sensitivity of the mammography. The palpable abnormality however corresponded to a 1.2 x 1.4 cm spiculated nodule in the deep lateral axillary region of the breast. Microcalcifications were identified within it. Patient underwent ultrasound of the breast on the same day. In the left breast corresponding to the palpable abnormality there was a 1.3 x 1.3 x 1.1 heterogeneous hypoechoic solid mass with microcalcifications at the 1 o'clock position of the breast 8 cm from the nipple. Increased vascularity was observed. Patient was referred to Dr. Farrar. She underwent a left core needle biopsy on 10/07/2021. 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 VA variable 10 to 50%, moderate intensity. HER-2/chaz 3+ IHC. Regular menses. OCPs starting age 17. Stopped age 30 to try to get . Stopped trying to get because had flare of Crohn's. Generalized itching all over--started last April. Triggered by heat (showever). Injured coccyx snowboarding in high school. Hurting more lately. Crohn's under control with anti-inflammatory diet. She underwent MRI of the breast on 10/20/2021. In the left breast in the upper outer quadrant there was an irregular mass with internal biopsy clip artifact representing biopsy-proven invasive carcinoma. There was an adjacent clumped nonmass enhancement that correlated to the adjacent suspicious focal asymmetry/architectural distortion with calcifications on the 10/04/2021 mammogram. Overall area of contiguous involvement in the upper outer quadrant (mass with adjacent non-mass enhancement) measured up to 2.7 cm in greatest dimension. He was noted that on a postbiopsy diagnostic mammogram that was available for comparison there was a possible group of indeterminate appearing calcifications in the upper outer quadrant posterior depth for which magnification views were recommended. Two additional abnormalities were identified in the breast--There is an additional irregular 0.5 x 0.4 x 0.4 cm (transverse by AP by cc dimensions) in the left upper-outer quadrant (series 7 image 75) which demonstrates heterogeneous enhancement with prominent central washout kinetics concerning for an additional site of involvement. There is an additional 0.4 x 0.4 x 0.4 cm mass upper CENTRAL breast (series 7 image 76) which also demonstrates heterogeneous enhancement with prominent central washout kinetics concerning for an additional site of involvement. LYMPH NODES: There are no suspicious axillary or internal mammary lymph nodes in either breast. RIGHT BREAST: There is no suspicious mass or area of non-mass enhancement identified within limitation of marked background parenchymal enhancement. Underwent MRI guided biopsy with clip placement 11/01/2021. Pathology: A. Breast, left, upper outer aspect, calcifications, Twirl clip, stereotactic core biopsy: --Atypical ductal hyperplasia (ADH). --Microcalcifications are present in ducts adjacent to ADH. --Please see comment. B. Breast, left, at 10:00, 3 cm from the nipple, Q clip, ultrasound-guided core biopsy: --Fibroadenoma. Second MRI breast biopsy 11/10/2021 Pathology: A. 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 Previous therapy: 1) TCH-P. Completed cycle #6 on 03/14/2022. 2) Herceptin x1 dose pre-operatively 04/07/2022. 3) Underwent left nipple sparing mastectomy, left sentinel lymph node mapping and biopsy, right prophylactic nipple sparing mastectomy along with right breast reconstruction direct to implant with total acellular dermal matrix coverage and left breast reconstruction direct to implant with total acellular dermal matrix coverage on 04/17/2022. Pathology: Tumor bed: The tumor bed measures 40 x 40 mm in size, and shows variable cellularity with an average of 22% viable cells; of these viable cells 96.5% are ductal carcinoma in situ and 3.5% are invasive carcinoma. The invasive carcinoma measures 16 mm in greatest dimension. Margins: Margin Status for Invasive Carcinoma:All margins negative for invasive carcinoma. Distance from Invasive Carcinoma to Closest Margin:1 mm Closest Margin(s) to Invasive Carcinoma: Superior Margin Status for DCIS:All margins negative for DCIS Distance from DCIS to Closest Margin:1.0 mm Closest Margin(s) to DCIS:Posterior Distance from DCIS to Superior Margin:1.5 mm A: Lymph nodes, left sentinel, x3 axillary, excision: - Four lymph nodes, negative for carcinoma (0/4). B: Breast, left, mastectomy: - Residual invasive ductal carcinoma, post neoadjuvant therapy, measuring 16 mm in greatest dimension. - Residual ductal carcinoma in situ, low and intermediate grades (nuclear grades 1 and 2) with comedonecrosis and microcalcifications. - Focal atypical ductal hyperplasia (ADH). - Margins are negative for carcinoma (distance to closest margin: 1 mm to superior margin). - Q clip, twirl clip, hourglass clip, and coil clip are identified. - Two intramammary lymph nodes, negative for carcinoma (0/2). - Biopsy site changes are present. - Fibroadenoma. - Background mammary parenchyma with fibroadenomatoid changes, fibrocystic changes, and microcalcifications. C: Breast, left, nipple, resection: - Mammary tissue, negative for carcinoma. D: Breast, right, mastectomy: - PENDING IHCs E: Breast, right, nipple, resection: - Benign mammary tissue. Presents for ongoing oncologic management. Current therapy: 1) Kadcyla (06/13/2022 -present). Dose reduced to 3 mg/kg cycle #5. 2) Lupron monthly. 3) Anastrozole. Started 09/10/2022. Interim history: Less nausea day #2 after increasing dex to 8 mg. Didn't take antiemetic this cycle. Not as jittery as previously. Fatigue tolerable. No diarrhea-confirmed again today. Lower back pain for a few days after Neulasta. Continues anastrozole. No increase in hot flashes. Still mainly at night and tolerable. No nosebleeds for last couple cycles. PMH, medications and allergies personally reviewed by me today. Any changes documented in appropriate section. ROS: Constitutional: Denies episodes of fever and night sweats. Not significantly fatigued. Normal appetite. Neuro: Denies RAE, vertigo, dizziness and imbalance. Resp: Denies cough, wheeze and hemoptysis. Denies shortness of breath at rest. Denies HILL. CVS: Denies exertional chest pain, PND, orthopnea and LE edema. GI: Denies dysgeusia. Denies symptoms of stomatitis. Denies dysphagia and odynophagia. : Denies dysuria or gross hematuria. No symptoms of bladder outlet obstruction. Endo: Denies polyuria and polydipsia. Denies heat and cold intolerance. Musculoskeletal: See above. Derm: See HPI. Heme: Denies unusual bleeding and unexplained bruising. Psych: Normal mood. PHYSICAL EXAM: VITALS: Blood pressure 111/68, pulse 73, temperature 36.7 C (98.1 F), weight 66.2 kg (146 lb), last menstrual period 11/25/2021, SpO2 99 %. EYES: Sclerae are anicteric bilaterally. Mouth no thrush or exudate. LYMPHATIC: There is no palpable cervical, supraclavicular, axillary or inguinal adenopathy. RESPIRATORY: Inspiratory breath sounds are of normal intensity in all allen. CARDIOVASCULAR: Rhythm is regular. BREAST: Deferred today. ABDOMEN: The abdomen is nondistended. Extremities: No swelling or edema. SKIN: Some mild excoriation of the forearms. LABS: Component Latest Ref Rng & Units 01/02/2023 WBC 3.70 - 11.00 k/uL 3.49 (L) RBC 3.90 - 5.20 m/uL 4.01 Hemoglobin 11.5 - 15.5 g/dL 10.1 (L) Hematocrit 36.0 - 46.0 % 32.5 (L) MCV 80.0 - 100.0 fL 81.0 MCH 26.0 - 34.0 pg 25.2 (L) MCHC 30.5 - 36.0 g/dL 31.1 RDW-CV 11.5 - 15.0 % 16.6 (H) Platelet Count 150 - 400 k/uL 96 (L) MPV 9.0 - 12.7 fL 11.3 Neut% % 41.5 Abs Neut (ANC) 1.45 - 7.50 k/uL 1.45 Lymph% % 45.3 Abs Lymph 1.00 - 4.00 k/uL 1.58 [place]% % 9.5 Abs [place] <0.87 k/uL 0.33 Eosin% % 2.0 Abs Eosin <0.46 k/uL 0.07 Baso% % 1.4 Abs Baso <0.11 k/uL 0.05 Immature Gran % % 0.3 IMMATURE GRANS (ABS) <0.10 k/uL <0.03 NRBC /100 WBC 0.0 Absolute nRBC <0.01 k/uL <0.01 DTYPE Auto ASSESSMENT/PLAN: (C50.412, Z17.0) Malignant neoplasm of upper-outer quadrant of left breast in female, estrogen receptor positive (HCC) (primary encounter diagnosis) Assessment: -cT2 cN0 M0 ER/VA positive, HER2 overexpressed clinical stage IIA infiltrating ductal carcinoma of the left breast. -ypT1c pN0. -Significant family history of breast cancer. Several family members who were tested were negative for deleterious gene mutation. Patient's genetic testing through [facility] was negative (see scanned report 11/25/2021). -Had egg harvesting. She was informed she would require at a minimum 5 years of OS with AI therapy following surgery. -Previously reviewed tumor board recommendations. -Tolerating Lupron and anastrozole well. -Adjuvant radiation was not recommended. -Reviewed CBC. Mild anemia and thrombocytopenia. Not on antiplatelet agents or anticoagulation so platelet count allows for continued therapy. Plan: -Continue oral iron supplement. -Continue Kadcyla at 3 mg/m2 with Neulasta support. -Medication dexamethasone dose 8 mg. -Continue monthly Lupron injection. Keep one week apart from Kadcyla--gets bad migraine when given same day. -Continue anastrozole. -Due for echo in mid-late January. Portions of this documentation were copied and pasted from previous office visit notes in order to provide a cohesive continuity of the history. The note has been reviewed and edited and updated as necessary. I spent a total of 20 minutes on the date of the service which included preparing to see the patient, [id number] patient care, completing clinical documentation, obtaining and/or reviewing separately obtained history, performing a medically appropriate examination, counseling and educating the patient/family/caregiver, ordering medications, tests, or procedures, communicating with other HCPs (not separately reported), and communicating results to the patient/family/caregiver. Chantal Ayers DO Cc; Braden Torres DO documented in this encounter [facility] 12-13-2022 Miscellaneous Notes sent message too patient, and marlon spoke on phone call . Zeina Wong APRN.CNP December 13, 2022 3:32 PM myroiad kits sergio be sent from misael [facility]son. Zeina Wong APRN.CNP December 13, 2022 3:33 PM This patient gave consent to this Medical Advice Message and is aware that it may result in a bill to their insurance, as well as the possibility of receiving a bill for a copay and/or deductible. They are an established patient, but are not seeking information exclusively about a problem treated during an in person or video visit in the last seven days. I did not recommend an in person or video visit within seven days of my reply. See the [employer] message reply for my assessment and plan. I spent a total of 10 minutes reviewing the patient's prior medical records and current request for medical advice, prescribing medications or ordering tests (if applicable), replying to the patient, and documenting the encounter. Zeina Wong APRN.CNP December 13, 2022 3:33 PM documented in this encounter [facility] 12-13-2022 History of Present illness Narrative No changes to assessment from OV yesterday. Maria G Ibrahim RN documented in this encounter [facility] 12-13-2022 Miscellaneous Notes spoke to patient. discussed Myriad screening, which got offered but not done with [facility] since were focused on getting patient started and completed, she spoke with , mariyae do not want to do. discussed purpose of the testing, it was required for IVf cycles, but in their cycle situation it was not follow up. plan- patient will get myriad kit sent to her and she will discuss with . will get records on sis- in- law, sent from [facility]. Zeina Wong APRN.CNP December 13, 2022 3:07 PM financial requests sent to [employer].. Zeina Wong APRN.CNP December 13, 2022 3:20 PM documented in this encounter [facility] 12-12-2022 History of Present illness Narrative Oncologic problem(s): 1) HER2 positive breast cancer. HPI: The patient is a 32-year-old female with a past medical history significant for Crohn's disease (dx 2013), vitiligo and dysmenorrhea. She self discovered a mass in the left breast. She underwent a bilateral diagnostic mammogram on 10/04/2021. The breasts were noted to be extremely dense lowering the sensitivity of the mammography. The palpable abnormality however corresponded to a 1.2 x 1.4 cm spiculated nodule in the deep lateral axillary region of the breast. Microcalcifications were identified within it. Patient underwent ultrasound of the breast on the same day. In the left breast corresponding to the palpable abnormality there was a 1.3 x 1.3 x 1.1 heterogeneous hypoechoic solid mass with microcalcifications at the 1 o'clock position of the breast 8 cm from the nipple. Increased vascularity was observed. Patient was referred to Dr. Farrar. She underwent a left core needle biopsy on 10/07/2021. 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 VA variable 10 to 50%, moderate intensity. HER-2/chaz 3+ IHC. Regular menses. OCPs starting age 17. Stopped age 30 to try to get . Stopped trying to get because had flare of Crohn's. Generalized itching all over--started last April. Triggered by heat (showever). Injured coccyx snowboarding in high school. Hurting more lately. Crohn's under control with anti-inflammatory diet. She underwent MRI of the breast on 10/20/2021. In the left breast in the upper outer quadrant there was an irregular mass with internal biopsy clip artifact representing biopsy-proven invasive carcinoma. There was an adjacent clumped nonmass enhancement that correlated to the adjacent suspicious focal asymmetry/architectural distortion with calcifications on the 10/04/2021 mammogram. Overall area of contiguous involvement in the upper outer quadrant (mass with adjacent non-mass enhancement) measured up to 2.7 cm in greatest dimension. He was noted that on a postbiopsy diagnostic mammogram that was available for comparison there was a possible group of indeterminate appearing calcifications in the upper outer quadrant posterior depth for which magnification views were recommended. Two additional abnormalities were identified in the breast--There is an additional irregular 0.5 x 0.4 x 0.4 cm (transverse by AP by cc dimensions) in the left upper-outer quadrant (series 7 image 75) which demonstrates heterogeneous enhancement with prominent central washout kinetics concerning for an additional site of involvement. There is an additional 0.4 x 0.4 x 0.4 cm mass upper CENTRAL breast (series 7 image 76) which also demonstrates heterogeneous enhancement with prominent central washout kinetics concerning for an additional site of involvement. LYMPH NODES: There are no suspicious axillary or internal mammary lymph nodes in either breast. RIGHT BREAST: There is no suspicious mass or area of non-mass enhancement identified within limitation of marked background parenchymal enhancement. Underwent MRI guided biopsy with clip placement 11/01/2021. Pathology: A. Breast, left, upper outer aspect, calcifications, Twirl clip, stereotactic core biopsy: --Atypical ductal hyperplasia (ADH). --Microcalcifications are present in ducts adjacent to ADH. --Please see comment. B. Breast, left, at 10:00, 3 cm from the nipple, Q clip, ultrasound-guided core biopsy: --Fibroadenoma. Second MRI breast biopsy 11/10/2021 Pathology: A. 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 Previous therapy: 1) TCH-P. Completed cycle #6 on 03/14/2022. 2) Herceptin x1 dose pre-operatively 04/07/2022. 3) Underwent left nipple sparing mastectomy, left sentinel lymph node mapping and biopsy, right prophylactic nipple sparing mastectomy along with right breast reconstruction direct to implant with total acellular dermal matrix coverage and left breast reconstruction direct to implant with total acellular dermal matrix coverage on 04/17/2022. Pathology: Tumor bed: The tumor bed measures 40 x 40 mm in size, and shows variable cellularity with an average of 22% viable cells; of these viable cells 96.5% are ductal carcinoma in situ and 3.5% are invasive carcinoma. The invasive carcinoma measures 16 mm in greatest dimension. Margins: Margin Status for Invasive Carcinoma:All margins negative for invasive carcinoma. Distance from Invasive Carcinoma to Closest Margin:1 mm Closest Margin(s) to Invasive Carcinoma: Superior Margin Status for DCIS:All margins negative for DCIS Distance from DCIS to Closest Margin:1.0 mm Closest Margin(s) to DCIS:Posterior Distance from DCIS to Superior Margin:1.5 mm A: Lymph nodes, left sentinel, x3 axillary, excision: - Four lymph nodes, negative for carcinoma (0/4). B: Breast, left, mastectomy: - Residual invasive ductal carcinoma, post neoadjuvant therapy, measuring 16 mm in greatest dimension. - Residual ductal carcinoma in situ, low and intermediate grades (nuclear grades 1 and 2) with comedonecrosis and microcalcifications. - Focal atypical ductal hyperplasia (ADH). - Margins are negative for carcinoma (distance to closest margin: 1 mm to superior margin). - Q clip, twirl clip, hourglass clip, and coil clip are identified. - Two intramammary lymph nodes, negative for carcinoma (0/2). - Biopsy site changes are present. - Fibroadenoma. - Background mammary parenchyma with fibroadenomatoid changes, fibrocystic changes, and microcalcifications. C: Breast, left, nipple, resection: - Mammary tissue, negative for carcinoma. D: Breast, right, mastectomy: - PENDING IHCs E: Breast, right, nipple, resection: - Benign mammary tissue. Presents for ongoing oncologic management. Current therapy: 1) Kadcyla (06/13/2022 -present). Dose reduced to 3 mg/kg cycle #5. 2) Lupron monthly. 3) Anastrozole. Started 09/10/2022. Interim history: Less nausea day #2 after increasing dex to 8 mg. Not as jittery as previously. No change. Fatigue tolerable. No diarrhea-confirmed. Lower back pain for a few days after Neulasta. Continues anastrozole. No increase in hot flashes. Still mainly at night and tolerable. No nosebleeds this cycle--confirmed. PMH, medications and allergies personally reviewed by me today. Any changes documented in appropriate section. ROS: Constitutional: Denies episodes of fever and night sweats. Not significantly fatigued. Normal appetite. Neuro: Denies RAE, vertigo, dizziness and imbalance. Resp: Denies cough, wheeze and hemoptysis. Denies shortness of breath at rest. Denies HILL. CVS: Denies exertional chest pain, PND, orthopnea and LE edema. GI: Denies dysgeusia. Denies symptoms of stomatitis. Denies dysphagia and odynophagia. : Denies dysuria or gross hematuria. No symptoms of bladder outlet obstruction. Endo: Denies polyuria and polydipsia. Denies heat and cold intolerance. Musculoskeletal: See above. Derm: See HPI. Heme: Denies unusual bleeding and unexplained bruising. Psych: Normal mood. PHYSICAL EXAM: VITALS: Blood pressure 114/67, pulse 81, temperature 36.2 C (97.2 F), resp. rate 16, last menstrual period 11/25/2021, SpO2 98 %. EYES: Sclerae are anicteric bilaterally. Mouth no thrush or exudate. LYMPHATIC: There is no palpable cervical, supraclavicular, axillary or inguinal adenopathy. RESPIRATORY: Inspiratory breath sounds are of normal intensity in all allen. CARDIOVASCULAR: Rhythm is regular. BREAST: Deferred today. ABDOMEN: The abdomen is nondistended. Extremities: No swelling or edema. SKIN: Some mild excoriation of the forearms. LABS: Component Latest Ref Rng & Units 12/12/2022 WBC 3.70 - 11.00 k/uL 3.28 (L) RBC 3.90 - 5.20 m/uL 3.89 (L) Hemoglobin 11.5 - 15.5 g/dL 9.9 (L) Hematocrit 36.0 - 46.0 % 32.1 (L) MCV 80.0 - 100.0 fL 82.5 MCH 26.0 - 34.0 pg 25.4 (L) MCHC 30.5 - 36.0 g/dL 30.8 RDW-CV 11.5 - 15.0 % 17.0 (H) Platelet Count 150 - 400 k/uL 105 (L) MPV 9.0 - 12.7 fL 11.8 Neut% % 35.1 Abs Neut (ANC) 1.45 - 7.50 k/uL 1.15 (L) Lymph% % 50.3 Abs Lymph 1.00 - 4.00 k/uL 1.65 [place]% % 10.1 Abs [place] <0.87 k/uL 0.33 Eosin% % 2.7 Abs Eosin <0.46 k/uL 0.09 Baso% % 1.5 Abs Baso <0.11 k/uL 0.05 Immature Gran % % 0.3 IMMATURE GRANS (ABS) <0.10 k/uL <0.03 NRBC /100 WBC 0.0 Absolute nRBC <0.01 k/uL <0.01 DTYPE Auto ASSESSMENT/PLAN: (C50.412, Z17.0) Malignant neoplasm of upper-outer quadrant of left breast in female, estrogen receptor positive (HCC) (primary encounter diagnosis) Assessment: -cT2 cN0 M0 ER/VA positive, HER2 overexpressed clinical stage IIA infiltrating ductal carcinoma of the left breast. -Significant family history of breast cancer. Several family members who were tested were negative for deleterious gene mutation. -Patient's genetic testing through [facility] was negative (see scanned report 11/25/2021). -Had egg harvesting. She was informed she would require at a minimum 5 years of OS with AI therapy following surgery. -Tolerating Lupron and anastrozole well. -On anastrozole and tolerating well too. -Adjuvant radiation not recommended. -Previously reviewed tumor board recommendations. -Reviewed CBC. ANC borderline. She is young and intent is curative so recheck CBC tomorrow and low threshold to continue therapy if ANC reasonable. Plan: -Continue Kadcyla at 3 mg/m2 with Neulasta support. Will check CBC tomorrow. -Keep dex to 8 mg. -Continue monthly Lupron injection. Keep one week apart from Kadcyla--gets bad migraine when given same day. -Continue anastrozole. Portions of this documentation were copied and pasted from previous office visit notes in order to provide a cohesive continuity of the history. The note has been reviewed and edited and updated as necessary. Chantal Ayers DO Cc; Braden Torres DO documented in this encounter [facility] 12-11-2022 Miscellaneous Notes phone call to tpatient, to notify her that I psoke to her surrogate cndidate, her sis-in-law, we are llokin for her faxed records, also sergio be trying to get her in opoin Dr. Attaran schedule, sergio need financials arranged with the financial pool that covers CONSULTS and SIS. the surrogatecouple will need STD's at visit, [facility] IVf fixed fee labs, expanded panel. . they sergio get billed to the couple and IP/ Biologic couple sergio pay them for the labs. patient will also need financials for FET with a surrogate monitoring. will not aks for mock cycle until after we see if needed after SIS is done, patient working with Cristopher escalera. call if any questions or concerns. sergio get consents ent to patient byt My chart. for FET and thaw plan, and transfer of embryos on surrogate FET cycle. NEED PSYCH CONSULT FOR ip/ BIOLOGIC COUPLE AND SURROGATE couple patient needs a well woman check , if not done, last Pap in [facility] is 2015, may have done elsewhere, do not see in Care everywhere any obgyn check up. message sent to Dr. foley re: need Myriad. Zeina Wong APRN.CNP December 11, 2022 2:41 PM documented in this encounter [facility] 12-05-2022 History of Present illness Narrative Consult from: Stephen Self is a 32 year old.G 0 P 0 Ab 0 She presents with complaint of needing a surrogate. She has stage 2 breast cancer and will be on therpay for the next couple years. She is ER and VA positive. Currently on depo-lupron. Her sister in law has agreed to be her surrogate. Her name is Donna Chinchilla (04/25/1990). This person has had three vaginal deliveries. She is supposed to be on estrogen celeste for the next five years so she wants to establish a now. Menstrual Hx: Menarche: 17 Cycle length: n/a Duration: n/a Flow: n/a Other: n/a Past Medical Hx: PAST MEDICAL HISTORY Diagnosis Date Abnormal Pap smear of cervix Anal fissure Anemia with crohns Cancer (HCC) breast cancer Crohn's disease (HCC) 07/09/2013 Hypoglycemia Malignant neoplasm of left breast (HCC) 09/2021 PMH - PAST MEDICAL HISTORY OF 04/08/2004 Normal color vision PMH - PAST MEDICAL HISTORY OF 12/23/2001 Pneumonia Past Surgical Hx: PAST SURGICAL HISTORY Procedure Laterality Date COLONOSCOPY 07/09/2013 EXTRACTION ERUPTED TOOTH/EXR age 17 PAST SURGICAL HISTORY OF 07/09/2006 Cyst removal in right wrist TONSILLECTOMY PRIMARY/SECONDARY AGE 13/> 10/07/2008 BREAST NEEDLE CORE BIOPSY LT Left 09/2021 Social History Tobacco Use Smoking status: Never Smokeless tobacco: Never Vaping Use Vaping Use: Never used Substance Use Topics Alcohol use: Not Currently Comment: Occasionally Drug use: No Review of Systems: General: No weight loss, malaise or fevers Respiratory: No cough, hemoptysis, asthma, recent chest infection, wheezing Cardiovascular: No history of chest pain, palpitation, orthopnea, cyanosis, pedal edema Gastrointestinal: No blood in stool, pain with BM, tarry stool, persistent diarrhea or constipation Genitourinary: negative Endocrine: No history of thyroid disorder, diabetes, cold intolerance, heat intolerance, polydypsia Musculoskeletal: Negative I have reviewed the above past medical history and review of systems as completed by my RN. Assessment- need for surrogate Plan- the R/B/A to use of surrogate was dicussed today and the sheet deliniteaing the [facility] requirements were discussed today with them. They have already begun the the legal side but will need eval by psych. Use of only one embryo was discussed and they are in agreement. rates and process of FET was described. The next step is for the surrogate to make appointment with me I spent a total of 40 minutes on the date of the service which included preparing to see the patient, [id number] patient care, completing clinical documentation, and counseling and educating the patient/family/caregiver. Jam Foley MD documented in this encounter [facility] 11-20-2022 History of Present illness Narrative Oncologic problem(s): 1) HER2 positive breast cancer. HPI: The patient is a 32-year-old female with a past medical history significant for Crohn's disease (dx 2013), vitiligo and dysmenorrhea. She self discovered a mass in the left breast. She underwent a bilateral diagnostic mammogram on 10/04/2021. The breasts were noted to be extremely dense lowering the sensitivity of the mammography. The palpable abnormality however corresponded to a 1.2 x 1.4 cm spiculated nodule in the deep lateral axillary region of the breast. Microcalcifications were identified within it. Patient underwent ultrasound of the breast on the same day. In the left breast corresponding to the palpable abnormality there was a 1.3 x 1.3 x 1.1 heterogeneous hypoechoic solid mass with microcalcifications at the 1 o'clock position of the breast 8 cm from the nipple. Increased vascularity was observed. Patient was referred to Dr. Farrar. She underwent a left core needle biopsy on 10/07/2021. 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 VA variable 10 to 50%, moderate intensity. HER-2/chaz 3+ IHC. Regular menses. OCPs starting age 17. Stopped age 30 to try to get . Stopped trying to get because had flare of Crohn's. Generalized itching all over--started last April. Triggered by heat (showever). Injured coccyx snowboarding in high school. Hurting more lately. Crohn's under control with anti-inflammatory diet. She underwent MRI of the breast on 10/20/2021. In the left breast in the upper outer quadrant there was an irregular mass with internal biopsy clip artifact representing biopsy-proven invasive carcinoma. There was an adjacent clumped nonmass enhancement that correlated to the adjacent suspicious focal asymmetry/architectural distortion with calcifications on the 10/04/2021 mammogram. Overall area of contiguous involvement in the upper outer quadrant (mass with adjacent non-mass enhancement) measured up to 2.7 cm in greatest dimension. He was noted that on a postbiopsy diagnostic mammogram that was available for comparison there was a possible group of indeterminate appearing calcifications in the upper outer quadrant posterior depth for which magnification views were recommended. Two additional abnormalities were identified in the breast--There is an additional irregular 0.5 x 0.4 x 0.4 cm (transverse by AP by cc dimensions) in the left upper-outer quadrant (series 7 image 75) which demonstrates heterogeneous enhancement with prominent central washout kinetics concerning for an additional site of involvement. There is an additional 0.4 x 0.4 x 0.4 cm mass upper CENTRAL breast (series 7 image 76) which also demonstrates heterogeneous enhancement with prominent central washout kinetics concerning for an additional site of involvement. LYMPH NODES: There are no suspicious axillary or internal mammary lymph nodes in either breast. RIGHT BREAST: There is no suspicious mass or area of non-mass enhancement identified within limitation of marked background parenchymal enhancement. Underwent MRI guided biopsy with clip placement 11/01/2021. Pathology: A. Breast, left, upper outer aspect, calcifications, Twirl clip, stereotactic core biopsy: --Atypical ductal hyperplasia (ADH). --Microcalcifications are present in ducts adjacent to ADH. --Please see comment. B. Breast, left, at 10:00, 3 cm from the nipple, Q clip, ultrasound-guided core biopsy: --Fibroadenoma. Second MRI breast biopsy 11/10/2021 Pathology: A. 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 Previous therapy: 1) TCH-P. Completed cycle #6 on 03/14/2022. 2) Herceptin x1 dose pre-operatively 04/07/2022. 3) Underwent left nipple sparing mastectomy, left sentinel lymph node mapping and biopsy, right prophylactic nipple sparing mastectomy along with right breast reconstruction direct to implant with total acellular dermal matrix coverage and left breast reconstruction direct to implant with total acellular dermal matrix coverage on 04/17/2022. Pathology: Tumor bed: The tumor bed measures 40 x 40 mm in size, and shows variable cellularity with an average of 22% viable cells; of these viable cells 96.5% are ductal carcinoma in situ and 3.5% are invasive carcinoma. The invasive carcinoma measures 16 mm in greatest dimension. Margins: Margin Status for Invasive Carcinoma:All margins negative for invasive carcinoma. Distance from Invasive Carcinoma to Closest Margin:1 mm Closest Margin(s) to Invasive Carcinoma: Superior Margin Status for DCIS:All margins negative for DCIS Distance from DCIS to Closest Margin:1.0 mm Closest Margin(s) to DCIS:Posterior Distance from DCIS to Superior Margin:1.5 mm A: Lymph nodes, left sentinel, x3 axillary, excision: - Four lymph nodes, negative for carcinoma (0/4). B: Breast, left, mastectomy: - Residual invasive ductal carcinoma, post neoadjuvant therapy, measuring 16 mm in greatest dimension. - Residual ductal carcinoma in situ, low and intermediate grades (nuclear grades 1 and 2) with comedonecrosis and microcalcifications. - Focal atypical ductal hyperplasia (ADH). - Margins are negative for carcinoma (distance to closest margin: 1 mm to superior margin). - Q clip, twirl clip, hourglass clip, and coil clip are identified. - Two intramammary lymph nodes, negative for carcinoma (0/2). - Biopsy site changes are present. - Fibroadenoma. - Background mammary parenchyma with fibroadenomatoid changes, fibrocystic changes, and microcalcifications. C: Breast, left, nipple, resection: - Mammary tissue, negative for carcinoma. D: Breast, right, mastectomy: - PENDING IHCs E: Breast, right, nipple, resection: - Benign mammary tissue. Presents for ongoing oncologic management. Current therapy: 1) Kadcyla (06/13/2022 -present). Dose reduced to 3 mg/kg cycle #5. 2) Lupron monthly. 3) Anastrozole. Started 09/10/2022. Interim history: Less nausea day #2 after increasing dex to 8 mg. Not as jittery as previously. Fatigue tolerable. No diarrhea. Lower back pain for a few days after Neulasta. Continues anastrozole. No increase in hot flashes. Still mainly at night and tolerable. No nosebleeds this cycle. PMH, medications and allergies personally reviewed by me today. Any changes documented in appropriate section. ROS: Constitutional: Denies episodes of fever and night sweats. Not significantly fatigued. Normal appetite. Neuro: Denies RAE, vertigo, dizziness and imbalance. Resp: Denies cough, wheeze and hemoptysis. Denies shortness of breath at rest. Denies HILL. CVS: Denies exertional chest pain, PND, orthopnea and LE edema. GI: Denies dysgeusia. Denies symptoms of stomatitis. Denies dysphagia and odynophagia. : Denies dysuria or gross hematuria. No symptoms of bladder outlet obstruction. Endo: Denies polyuria and polydipsia. Denies heat and cold intolerance. Musculoskeletal: See above. Derm: See HPI. Heme: Denies unusual bleeding and unexplained bruising. Psych: Normal mood. PHYSICAL EXAM: VITALS: Blood pressure 108/73, pulse 81, temperature 36.5 C (97.7 F), temperature source Temporal, weight 66.7 kg (147 lb), last menstrual period 11/25/2021. EYES: Sclerae are anicteric bilaterally. Mouth no thrush or exudate. LYMPHATIC: There is no palpable cervical, supraclavicular, axillary or inguinal adenopathy. RESPIRATORY: Inspiratory breath sounds are of normal intensity in all allen. CARDIOVASCULAR: Rhythm is regular. BREAST: Deferred today. ABDOMEN: The abdomen is nondistended. Extremities: No swelling or edema. SKIN: Some mild excoriation of the forearms. LABS: Component Latest Ref Rng & Units 08/24/2022 09/18/2022 10/09/2022 10/30/2022 11/20/2022 WBC 3.70 - 11.00 k/uL 3.15 (L) RBC 3.90 - 5.20 m/uL 4.04 Hemoglobin 11.5 - 15.5 g/dL 10.5 (L) Hematocrit 36.0 - 46.0 % 33.2 (L) MCV 80.0 - 100.0 fL 82.2 MCH 26.0 - 34.0 pg 26.0 MCHC 30.5 - 36.0 g/dL 31.6 RDW-CV 11.5 - 15.0 % 16.6 (H) Platelet Count 150 - 400 k/uL 109 (L) MPV Neut% % 41.3 Abs Neut (ANC) 1.45 - 7.50 k/uL 1.30 (L) Lymph% % 44.4 Abs Lymph 1.00 - 4.00 k/uL 1.40 Macomb% % 10.2 Abs Macomb <0.87 k/uL 0.32 Eosin% % 2.2 Abs Eosin <0.46 k/uL 0.07 Baso% % 1.6 Abs Baso <0.11 k/uL 0.05 Immature Gran % % 0.3 IMMATURE GRANS (ABS) <0.10 k/uL <0.03 NRBC /100 WBC 0.0 Absolute nRBC <0.01 k/uL <0.01 DTYPE Auto Protein, Total 6.3 - 8.0 g/dL 7.0 6.9 7.0 7.2 7.3 Albumin 3.9 - 4.9 g/dL 4.3 4.1 4.2 4.2 4.5 Calcium 8.5 - 10.2 mg/dL 8.8 9.0 8.9 9.0 9.3 Bilirubin, Total 0.2 - 1.3 mg/dL 0.2 0.3 0.3 0.2 0.3 Alkaline Phosphatase 34 - 123 U/L 159 (H) 200 (H) 192 (H) 214 (H) 217 (H) AST 13 - 35 U/L 41 (H) 36 (H) 33 40 (H) 38 (H) ALT 7 - 38 U/L 33 37 26 38 30 Glucose 74 - 99 mg/dL 136 (H) 90 92 106 (H) 92 BUN 7 - 21 mg/dL 12 9 9 10 9 Creatinine 0.58 - 0.96 mg/dL 0.59 0.59 0.57 (L) 0.51 (L) 0.57 (L) Sodium 136 - 144 mmol/L 137 141 140 138 140 Potassium 3.7 - 5.1 mmol/L 3.7 3.6 (L) 3.6 (L) 3.8 3.7 Chloride 97 - 105 mmol/L 103 105 103 103 106 (H) CO2 22 - 30 mmol/L 26 27 25 26 26 Anion Gap 9 - 18 mmol/L 8 (L) 9 12 9 8 (L) eGFR >=60 mL/min/1.73m 124 124 125 128 125 Magnesium 1.7 - 2.3 mg/dL 1.9 ASSESSMENT/PLAN: (C50.412, Z17.0) Malignant neoplasm of upper-outer quadrant of left breast in female, estrogen receptor positive (HCC) (primary encounter diagnosis) Assessment: -cT2 cN0 M0 ER/VA positive, HER2 overexpressed clinical stage IIA infiltrating ductal carcinoma of the left breast. -Significant family history of breast cancer. Several family members who were tested were negative for deleterious gene mutation. -Patient's genetic testing through [facility] was negative (see scanned report 11/25/2021). -Had egg harvesting. She was informed she would require at a minimum 5 years of OS with AI therapy following surgery. -Tolerating Lupron and anastrozole well. -On anastrozole and tolerating well too. -Adjuvant radiation not recommended. -Previously reviewed tumor board recommendations. -Reviewed CBC. Plan: -Continue Kadcyla at 3 mg/m2 with Neulasta support. -Keep dex to 8 mg. -Continue monthly Lupron injection. Keep one week apart from Kadcyla--gets bad migraine when given same day. -Continue anastrozole. Portions of this documentation were copied and pasted from previous office visit notes in order to provide a cohesive continuity of the history. The note has been reviewed and edited and updated as necessary. Chantal Ayers DO Cc; Braden Torres DO documented in this encounter [facility] 11-01-2022 Miscellaneous Notes Refill not needed. This was sent in 10/09/2022 with 2 refills. Alta Beckford LPN documented in this encounter [facility] 10-31-2022 Nurse Note Lupron injection administered, left buttock,tolerated well, no immediate adverse reactions noted. Em Duff LPN documented in this encounter [facility] 10-09-2022 History of Present illness Narrative Oncologic problem(s): 1) HER2 positive breast cancer. HPI: The patient is a 32-year-old female with a past medical history significant for Crohn's disease (dx 2014), vitiligo and dysmenorrhea. She self discovered a mass in the left breast. She underwent a bilateral diagnostic mammogram on 10/04/2021. The breasts were noted to be extremely dense lowering the sensitivity of the mammography. The palpable abnormality however corresponded to a 1.2 x 1.4 cm spiculated nodule in the deep lateral axillary region of the breast. Microcalcifications were identified within it. Patient underwent ultrasound of the breast on the same day. In the left breast corresponding to the palpable abnormality there was a 1.3 x 1.3 x 1.1 heterogeneous hypoechoic solid mass with microcalcifications at the 1 o'clock position of the breast 8 cm from the nipple. Increased vascularity was observed. Patient was referred to Dr. Farrar. She underwent a left core needle biopsy on 10/07/2021. 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 VA variable 10 to 50%, moderate intensity. HER-2/chaz 3+ IHC. Regular menses. OCPs starting age 17. Stopped age 30 to try to get . Stopped trying to get because had flare of Crohn's. Generalized itching all over--started last April. Triggered by heat (showever). Injured coccyx snowboarding in high school. Hurting more lately. Crohn's under control with anti-inflammatory diet. She underwent MRI of the breast on 10/20/2021. In the left breast in the upper outer quadrant there was an irregular mass with internal biopsy clip artifact representing biopsy-proven invasive carcinoma. There was an adjacent clumped nonmass enhancement that correlated to the adjacent suspicious focal asymmetry/architectural distortion with calcifications on the 10/04/2021 mammogram. Overall area of contiguous involvement in the upper outer quadrant (mass with adjacent non-mass enhancement) measured up to 2.7 cm in greatest dimension. He was noted that on a postbiopsy diagnostic mammogram that was available for comparison there was a possible group of indeterminate appearing calcifications in the upper outer quadrant posterior depth for which magnification views were recommended. Two additional abnormalities were identified in the breast--There is an additional irregular 0.5 x 0.4 x 0.4 cm (transverse by AP by cc dimensions) in the left upper-outer quadrant (series 7 image 75) which demonstrates heterogeneous enhancement with prominent central washout kinetics concerning for an additional site of involvement. There is an additional 0.4 x 0.4 x 0.4 cm mass upper CENTRAL breast (series 7 image 76) which also demonstrates heterogeneous enhancement with prominent central washout kinetics concerning for an additional site of involvement. LYMPH NODES: There are no suspicious axillary or internal mammary lymph nodes in either breast. RIGHT BREAST: There is no suspicious mass or area of non-mass enhancement identified within limitation of marked background parenchymal enhancement. Underwent MRI guided biopsy with clip placement 11/01/2021. Pathology: A. Breast, left, upper outer aspect, calcifications, Twirl clip, stereotactic core biopsy: --Atypical ductal hyperplasia (ADH). --Microcalcifications are present in ducts adjacent to ADH. --Please see comment. B. Breast, left, at 10:00, 3 cm from the nipple, Q clip, ultrasound-guided core biopsy: --Fibroadenoma. Second MRI breast biopsy 11/10/2021 Pathology: A. 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 Previous therapy: 1) TCH-P. Completed cycle #6 on 03/14/2022. 2) Herceptin x1 dose pre-operatively 04/07/2022. 3) Underwent left nipple sparing mastectomy, left sentinel lymph node mapping and biopsy, right prophylactic nipple sparing mastectomy along with right breast reconstruction direct to implant with total acellular dermal matrix coverage and left breast reconstruction direct to implant with total acellular dermal matrix coverage on 04/17/2022. Pathology: Tumor bed: The tumor bed measures 40 x 40 mm in size, and shows variable cellularity with an average of 22% viable cells; of these viable cells 96.5% are ductal carcinoma in situ and 3.5% are invasive carcinoma. The invasive carcinoma measures 16 mm in greatest dimension. Margins: Margin Status for Invasive Carcinoma:All margins negative for invasive carcinoma. Distance from Invasive Carcinoma to Closest Margin:1 mm Closest Margin(s) to Invasive Carcinoma: Superior Margin Status for DCIS:All margins negative for DCIS Distance from DCIS to Closest Margin:1.0 mm Closest Margin(s) to DCIS:Posterior Distance from DCIS to Superior Margin:1.5 mm A: Lymph nodes, left sentinel, x3 axillary, excision: - Four lymph nodes, negative for carcinoma (0/4). B: Breast, left, mastectomy: - Residual invasive ductal carcinoma, post neoadjuvant therapy, measuring 16 mm in greatest dimension. - Residual ductal carcinoma in situ, low and intermediate grades (nuclear grades 1 and 2) with comedonecrosis and microcalcifications. - Focal atypical ductal hyperplasia (ADH). - Margins are negative for carcinoma (distance to closest margin: 1 mm to superior margin). - Q clip, twirl clip, hourglass clip, and coil clip are identified. - Two intramammary lymph nodes, negative for carcinoma (0/2). - Biopsy site changes are present. - Fibroadenoma. - Background mammary parenchyma with fibroadenomatoid changes, fibrocystic changes, and microcalcifications. C: Breast, left, nipple, resection: - Mammary tissue, negative for carcinoma. D: Breast, right, mastectomy: - PENDING IHCs E: Breast, right, nipple, resection: - Benign mammary tissue. Presents for ongoing oncologic management. Current therapy: 1) Kadcyla (06/13/2022 -present). Dose reduced to 3 mg/kg cycle #5. 2) Lupron monthly. 3) Anastrozole. Started 09/10/2022. Interim history: Dose reduced last cycle. Still had/has lingering fatigue. No diarrhea. Lower back pain for a few days after Neulasta. Jitteriness with dexamethasone. Continues anastrozole. No increase in hot flashes. Mainly at night and tolerable. Occasional nosebleed that stops easily. Can be from either nostril. Typically around day 4. Less dry itchy skin particularly legs and arms. PMH, medications and allergies personally reviewed by me today. Any changes documented in appropriate section. ROS: Constitutional: Denies episodes of fever and night sweats. Not significantly fatigued. Normal appetite. Neuro: Denies RAE, vertigo, dizziness and imbalance. Resp: Denies cough, wheeze and hemoptysis. Denies shortness of breath at rest. Denies HILL. CVS: Denies exertional chest pain, PND, orthopnea and LE edema. GI: Denies dysgeusia. Denies symptoms of stomatitis. Denies dysphagia and odynophagia. : Denies dysuria or gross hematuria. No symptoms of bladder outlet obstruction. Endo: Denies polyuria and polydipsia. Denies heat and cold intolerance. Musculoskeletal: See above. Derm: See HPI. Heme: Denies unusual bleeding and unexplained bruising. Psych: Normal mood. PHYSICAL EXAM: VITALS: Blood pressure 115/75, pulse 89, temperature 36.8 C (98.2 F), temperature source Temporal, weight 65.8 kg (145 lb), last menstrual period 11/25/2021. EYES: Sclerae are anicteric bilaterally. Mouth no thrush or exudate. LYMPHATIC: There is no palpable cervical, supraclavicular, axillary or inguinal adenopathy. RESPIRATORY: Inspiratory breath sounds are of normal intensity in all allen. CARDIOVASCULAR: Rhythm is regular. BREAST: Deferred today. ABDOMEN: The abdomen is nondistended. Extremities: No swelling or edema. SKIN: Some mild excoriation of the forearms. LABS: Component Latest Ref Rng & Units 10/09/2022 WBC 3.70 - 11.00 k/uL 3.53 (L) RBC 3.90 - 5.20 m/uL 4.06 Hemoglobin 11.5 - 15.5 g/dL 10.7 (L) Hematocrit 36.0 - 46.0 % 33.4 (L) MCV 80.0 - 100.0 fL 82.3 MCH 26.0 - 34.0 pg 26.4 MCHC 30.5 - 36.0 g/dL 32.0 RDW-CV 11.5 - 15.0 % 17.2 (H) Platelet Count 150 - 400 k/uL 127 (L) MPV 9.0 - 12.7 fL 11.5 Neut% % 37.9 Abs Neut (ANC) 1.45 - 7.50 k/uL 1.34 (L) Lymph% % 46.2 Abs Lymph 1.00 - 4.00 k/uL 1.63 Macomb% % 10.8 Abs Macomb <0.87 k/uL 0.38 Eosin% % 3.1 Abs Eosin <0.46 k/uL 0.11 Baso% % 1.7 Abs Baso <0.11 k/uL 0.06 Immature Gran % % 0.3 IMMATURE GRANS (ABS) <0.10 k/uL <0.03 NRBC /100 WBC 0.0 Absolute nRBC <0.01 k/uL <0.01 DTYPE Auto ASSESSMENT/PLAN: (C50.412, Z17.0) Malignant neoplasm of upper-outer quadrant of left breast in female, estrogen receptor positive (HCC) (primary encounter diagnosis) Assessment: -cT2 cN0 M0 ER/VA positive, HER2 overexpressed clinical stage IIA infiltrating ductal carcinoma of the left breast. -Significant family history of breast cancer. Several family members who were tested were negative for deleterious gene mutation. -Patient's genetic testing through [facility] was negative (see scanned report 11/25/2021). -Had egg harvesting. She was informed she would require at a minimum 5 years of OS with AI therapy following surgery. -Tolerating Lupron and anastrozole well. -Now on anastrozole and tolerating well too. -Adjuvant radiation not recommended. -Previously reviewed tumor board recommendations. -Reviewed CBC. With dose reduction and Neulasta, neutrophil borderline but okay for treatment tomorrow. Plan: -Continue Kadcyla at 3 mg/m2 with Neulasta support. -Due for echo. Will have it scheduled. -Continue monthly Lupron injection. Keep one week apart from Kadcyla--gets bad migraine when given same day. -Continue anastrozole. Portions of this documentation were copied and pasted from previous office visit notes in order to provide a cohesive continuity of the history. The note has been reviewed and edited and updated as necessary. I spent a total of 25 minutes on the date of the service which included preparing to see the patient, [id number] patient care, completing clinical documentation, obtaining and/or reviewing separately obtained history, performing a medically appropriate examination, counseling and educating the patient/family/caregiver, ordering medications, tests, or procedures, and communicating results to the patient/family/caregiver. Chantal Ayers DO Cc; Braden Torres DO documented in this encounter [facility] 10-03-2022 Miscellaneous Notes 3 blasts frozen before breast cancer tx,10-18-21 IVF 3 vials x 1 blast each.. spoke to patient. needs to jimmie surrogate, considering sis- in-lw 31 yo with G- 3p-3 fullterm no complications per pateint, patient has appt on 12-05-[address] foley, answered questiosn about cost of first consult for surrogate and , discussed fiancials for FET. and medications for surrogate. discussed legal and insurance fees are the most expensive part if not needing to use an agency surrogate. plan- sergio send inforamtion to patient. on psych, legal consults, she can look into insurance that they currently have to see if covered. call if any other questions .Zeina Wong APRN.KASH October 03, 2022 7:02 PM documented in this encounter [facility] 10-03-2022 Nurse Note Lupron injection administered, right buttock,tolerated well, no immediate adverse reactions noted. Em Duff LPN documented in this encounter [facility] 09-29-2022 Miscellaneous Notes Pt returning Mikaela's call Returned patient call regarding questions of surrogacy. Patient did not answer. left for patient to call office when available. Mikaela Brice RN September 29, 2022 10:08 AM Pt wondering how the process of using a surrogate works. Told pt she and the surrogate would need a consult, but she wanted to gold off on scheduling until she got a rundown of the whole process documented in this encounter [facility] 09-18-2022 Miscellaneous Notes Spoke to Dr. Ayers. Called patient informed her that kadcyla was dose reduced. Informed her of Dr. Ayers's response, patient stated understanding. Images from the original note were not included. Called patient. Patient is concerned about elevated alkaline phosphatase. Please review and advise. Thank you. Krissy Beckham RN Patient called in asking to speak to Krissy. When asked what is was in regards to she stated it is about the lab work she had done today for . Please call patient back when you are able at [phone] Thank you, Dannielle Javier Pss documented in this encounter [facility] 09-18-2022 Miscellaneous Notes Spoke with pt, given lab results, rx sent to pharmacy, voiced understanding Em Duff LPN Her potassium is running low. Please advise her to start K. Dur daily. Rx sent. Chantal Ayers DO documented in this encounter [facility] 09-14-2022 History of Present illness Narrative PLASTIC SURGERY ESTABLISHED PATIENT VISIT CC: follow up breast reconstruction HPI: The patient is still on immunotherapy (chemotherapy). Stephen Self is a 32 year old female with a history of left breast cancer. Breast reconstruction history 04/17/22 Bilateral nipple sparing mastectomies with Dr. Null 04/17/22 Bilateral breast reconstruction with direct to implant placement and ADM Implants: 405 SRM Breast cancer Hx: history of left breast cancer Follows with Oncologist Doing well Hx Radiation Therapy: No Hx Chemotherapy: Yes, still undergoing PAIN : No: 0 on a scale of 0 to 10 Recent imaging: Breast MRI: Hx of bleeding/clotting: REVIEW OF SYSTEMS PAIN ASSESSMENT: Negative for pain, history of chronic pain, or current treatment for a chronic pain condition. GENERAL: No weight loss, malaise or fevers Allergies: No Known Allergies PAST MEDICAL HISTORY Diagnosis Date Abnormal Pap smear of cervix Anal fissure Anemia with crohns Cancer (HCC) breast cancer Crohn's disease (HCC) 07/09/2013 Hypoglycemia Malignant neoplasm of left breast (HCC) 09/2021 PMH - PAST MEDICAL HISTORY OF 04/08/2004 Normal color vision PMH - PAST MEDICAL HISTORY OF 12/23/2001 Pneumonia PAST SURGICAL HISTORY Procedure Laterality Date COLONOSCOPY 07/09/2013 EXTRACTION ERUPTED TOOTH/EXR age 17 PAST SURGICAL HISTORY OF 07/09/2006 Cyst removal in right wrist TONSILLECTOMY PRIMARY/SECONDARY AGE 13/> 10/07/2008 BREAST NEEDLE CORE BIOPSY LT Left 09/2021 Current Outpatient Medications on File Prior to Visit Medication Sig ferrous sulfate 325 mg (65 mg iron) tablet Take 325 mg by mouth every other day. anastrozole (ARIMIDEX) 1 mg tablet TAKE 1 TABLET BY MOUTH EVERY DAY promethazine (PHENERGAN) 25 mg tablet Take 1 tablet by mouth every 6 hours as needed. FOR NAUSEA LUPRON DEPOT 3.75 mg injection Inject 3.75 mg intramuscularly once every month. Once a month during chemotherapy Current Facility-Administered Medications on File Prior to Visit Medication perflutren lipid microspheres 1.3 mL in NaCl (PF) 0.9% 10 mL injection (DEFINITY) sodium chloride 0.9 % (flush) 10 mL (BD POSIFLUSH) perflutren lipid microspheres 1.3 mL in NaCl (PF) 0.9% 10 mL injection (DEFINITY) sodium chloride 0.9 % (flush) 10 mL (BD POSIFLUSH) perflutren lipid microspheres 1.3 mL in NaCl (PF) 0.9% 10 mL injection (DEFINITY) sodium chloride 0.9 % (flush) 10 mL (BD POSIFLUSH) Social History Tobacco Use Smoking status: Never Smokeless tobacco: Never Vaping Use Vaping Use: Never used Substance Use Topics Alcohol use: Not Currently Comment: Occasionally Drug use: No There were no vitals filed for this visit. There is no height or weight on file to calculate BMI. PE Alert and oriented in NAD bilateral breast scar well healed No erythema or drainage noted bilateral breast soft, bilateral implants intact Contour irregularities s/p mastectomy Left breast is sitting 2.0 cm higher than the right Good symmetry ASSESSMENT/PLAN: hx of left breast cancer, s/p bilateral breast reconstruction. would like possible revision in the future Start using a silicone based lotion for scars. Return to clinic in March. I spent 30 minutes in the visit, with more than 50% of the total [id number] time of the visit in counseling / coordination of care. The patient is seen and examined by Dr. García and the following reflects his/her service. Scribed by Valentina Vu RN. The patient is seen and examined by Dr. García and the following reflects his/her service. Scribed by Kimmy Ascencio. I agree with the Chief Complaint, ROS, and Past Histories independently gathered by the clinical legal support specialist and the remaining scribed note accurately describes my personal service to the patient. Provider Attestation: I, Bradford García MD, personally performed the services described in this documentation. All medical record entries made by the scribe were at my direction and in my presence. I have reviewed the chart and discharge instructions (if applicable) and agree that the record reflects my personal performance and is accurate and complete. Dr. Bradford García MD September 14, 2022 5:16 PM documented in this encounter [facility] 09-06-2022 History of Present illness Narrative VALENTIN 1Y21 IRB: [id number] Real World Treatment Experience of Patients with Breast, Lung, or GI Cancer or Multiple Myeloma Using Remote Symptom Monitoring Informed Consent signed on: June STUDY ID #: [id number] Week: 06/19 Date of event report: September 04, 2022 1) Severity:Severe SA-CTC: Severe Fatigue SA-CTC: Fatigue Score 3 Alert was managed by: SHRUTHI Fermin Care Team Response: Continue to monitor your symptoms and report any changes Did patient request a call back: No Was study physician consulted / notified: No - Patient did not need the call back 2) Severity:Severe SA-CTC: Severe Insomnia Alert was managed by: SHRUTHI Fermin Care Team Response: Continue to monitor your symptoms and report any changes Did patient request a call back: No Was study physician consulted / notified: No - Patient did not need the call back 3) Severity:Severe Oral Adherence: Never Alert was managed by: SHRUTHI Fermin Care Team Response: Continue to monitor your symptoms and report any changes Did patient request a call back: No Was study physician consulted / notified: No - Patient did not need the call back 4) Severity:Severe SA-CTC: Very Severe Muscle Pain SA-CTC: Pain Score 3 Alert was managed by: SHRUTHI Fermin Care Team Response: Continue to monitor your symptoms and report any changes Did patient request a call back: No Was study physician consulted / notified: No - Patient did not need the call back 5) Severity: Present SA-CTC: Rash Alert was managed by: SHRUTHI Fermin Care Team Response: Continue to monitor your symptoms and report any changes Did patient request a call back: No Was study physician consulted / notified: No - Patient did not need the call back Notes/Comments to Patient: If any of this worsens - please let us know. I would definitely recommend following up at your next office visit on these alerts. PDF saved to [employer] Mechanic: Rebekah Fermin RN The patient knows to follow provider's treatment plan and to continue to complete the weekly electronic surveys, to be sent for minimum of 12 weeks. Patient understands to call the office sooner if needed and has my contact information for any additional questions regarding the study. Rebekah Fermin RN documented in this encounter [facility] 08-29-2022 Miscellaneous Notes ELHAMVS 1Y21 IRB: [id number] Real World Treatment Experience of Patients with Breast, Lung, or GI Cancer or Multiple Myeloma Using Remote Symptom Monitoring Informed Consent signed on: June STUDY ID #: [id number] Week: 06/19 Date of event report: August 29, 2022 1) Severity:Severe called and spoke with patient - did not mean for call back and was unsure why this triggered Alert was managed by: RN - Rebekah Fermin Did patient request a call back: Yes -Other: called and spoke with patient - did not mean for call back and was unsure why this triggered Was study physician consulted / notified: No - Patient did not need the call back PDF saved to [employer] Mechanic: Rebekah Fermin RN The patient knows to follow provider's treatment plan and to continue to complete the weekly electronic surveys, to be sent for minimum of 12 weeks. Patient understands to call the office sooner if needed and has my contact information for any additional questions regarding the study. Rebekah Fermin RN documented in this encounter [facility] 08-24-2022 Miscellaneous Notes Addended by: CHANTAL AYERS on: 08/24/2022 09:25 AM Modules accepted: Orders documented in this encounter [facility] 08-24-2022 History of Present illness Narrative Oncologic problem(s): 1) HER2 positive breast cancer. HPI: The patient is a 32-year-old female with a past medical history significant for Crohn's disease (dx 2013), vitiligo and dysmenorrhea. She self discovered a mass in the left breast. She underwent a bilateral diagnostic mammogram on 10/04/2021. The breasts were noted to be extremely dense lowering the sensitivity of the mammography. The palpable abnormality however corresponded to a 1.2 x 1.4 cm spiculated nodule in the deep lateral axillary region of the breast. Microcalcifications were identified within it. Patient underwent ultrasound of the breast on the same day. In the left breast corresponding to the palpable abnormality there was a 1.3 x 1.3 x 1.1 heterogeneous hypoechoic solid mass with microcalcifications at the 1 o'clock position of the breast 8 cm from the nipple. Increased vascularity was observed. Patient was referred to Dr. Farrar. She underwent a left core needle biopsy on 10/07/2021. 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 VA variable 10 to 50%, moderate intensity. HER-2/chaz 3+ IHC. Regular menses. OCPs starting age 17. Stopped age 30 to try to get . Stopped trying to get because had flare of Crohn's. Generalized itching all over--started last April. Triggered by heat (showever). Injured coccyx snowboarding in high school. Hurting more lately. Crohn's under control with anti-inflammatory diet. She underwent MRI of the breast on 10/20/2021. In the left breast in the upper outer quadrant there was an irregular mass with internal biopsy clip artifact representing biopsy-proven invasive carcinoma. There was an adjacent clumped nonmass enhancement that correlated to the adjacent suspicious focal asymmetry/architectural distortion with calcifications on the 10/04/2021 mammogram. Overall area of contiguous involvement in the upper outer quadrant (mass with adjacent non-mass enhancement) measured up to 2.7 cm in greatest dimension. He was noted that on a postbiopsy diagnostic mammogram that was available for comparison there was a possible group of indeterminate appearing calcifications in the upper outer quadrant posterior depth for which magnification views were recommended. Two additional abnormalities were identified in the breast--There is an additional irregular 0.5 x 0.4 x 0.4 cm (transverse by AP by cc dimensions) in the left upper-outer quadrant (series 7 image 75) which demonstrates heterogeneous enhancement with prominent central washout kinetics concerning for an additional site of involvement. There is an additional 0.4 x 0.4 x 0.4 cm mass upper CENTRAL breast (series 7 image 76) which also demonstrates heterogeneous enhancement with prominent central washout kinetics concerning for an additional site of involvement. LYMPH NODES: There are no suspicious axillary or internal mammary lymph nodes in either breast. RIGHT BREAST: There is no suspicious mass or area of non-mass enhancement identified within limitation of marked background parenchymal enhancement. Underwent MRI guided biopsy with clip placement 11/01/2021. Pathology: A. Breast, left, upper outer aspect, calcifications, Twirl clip, stereotactic core biopsy: --Atypical ductal hyperplasia (ADH). --Microcalcifications are present in ducts adjacent to ADH. --Please see comment. B. Breast, left, at 10:00, 3 cm from the nipple, Q clip, ultrasound-guided core biopsy: --Fibroadenoma. Second MRI breast biopsy 11/10/2021 Pathology: A. 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 Previous therapy: 1) TCH-P. Completed cycle #6 on 03/14/2022. 2) Herceptin x1 dose pre-operatively 04/07/2022. 3) Underwent left nipple sparing mastectomy, left sentinel lymph node mapping and biopsy, right prophylactic nipple sparing mastectomy along with right breast reconstruction direct to implant with total acellular dermal matrix coverage and left breast reconstruction direct to implant with total acellular dermal matrix coverage on 04/17/2022. Pathology: Tumor bed: The tumor bed measures 40 x 40 mm in size, and shows variable cellularity with an average of 22% viable cells; of these viable cells 96.5% are ductal carcinoma in situ and 3.5% are invasive carcinoma. The invasive carcinoma measures 16 mm in greatest dimension. Margins: Margin Status for Invasive Carcinoma:All margins negative for invasive carcinoma. Distance from Invasive Carcinoma to Closest Margin:1 mm Closest Margin(s) to Invasive Carcinoma: Superior Margin Status for DCIS:All margins negative for DCIS Distance from DCIS to Closest Margin:1.0 mm Closest Margin(s) to DCIS:Posterior Distance from DCIS to Superior Margin:1.5 mm A: Lymph nodes, left sentinel, x3 axillary, excision: - Four lymph nodes, negative for carcinoma (0/4). B: Breast, left, mastectomy: - Residual invasive ductal carcinoma, post neoadjuvant therapy, measuring 16 mm in greatest dimension. - Residual ductal carcinoma in situ, low and intermediate grades (nuclear grades 1 and 2) with comedonecrosis and microcalcifications. - Focal atypical ductal hyperplasia (ADH). - Margins are negative for carcinoma (distance to closest margin: 1 mm to superior margin). - Q clip, twirl clip, hourglass clip, and coil clip are identified. - Two intramammary lymph nodes, negative for carcinoma (0/2). - Biopsy site changes are present. - Fibroadenoma. - Background mammary parenchyma with fibroadenomatoid changes, fibrocystic changes, and microcalcifications. C: Breast, left, nipple, resection: - Mammary tissue, negative for carcinoma. D: Breast, right, mastectomy: - PENDING IHCs E: Breast, right, nipple, resection: - Benign mammary tissue. Presents for ongoing oncologic management. Current therapy: 1) Kadcyla (06/13/2022 -present) 2) Lupron monthly. 3) Anastrozole. Hasn't started. Interim history: Nausea not as bad with premeds. No diarrhea. Got Neulasta. Significant lower back pain radiating to hips. Took her breath when moved certain ways. lasted about 3 days. Notices more jitteriness with dexamethasone. Hasn't started anastrozole. Occasional hot flash mostly at night. PMH, medications and allergies personally reviewed by me today. Any changes documented in appropriate section. ROS: Constitutional: Denies episodes of fever and night sweats. Not significantly fatigued. Normal appetite. Neuro: Denies RAE, vertigo, dizziness and imbalance. Resp: Denies cough, wheeze and hemoptysis. Denies shortness of breath at rest. Denies HILL. CVS: Denies exertional chest pain, PND, orthopnea and LE edema. GI: Denies dysgeusia. Denies symptoms of stomatitis. Denies dysphagia and odynophagia. : Denies dysuria or gross hematuria. No symptoms of bladder outlet obstruction. Endo: Denies hot flashes. Denies polyuria and polydipsia. Denies heat and cold intolerance. Musculoskeletal: See above. Derm: Denies rash. Denies jaundice and diffuse pruritis. Heme: Denies unusual bleeding and unexplained bruising. Psych: Normal mood. PHYSICAL EXAM: VITALS: Blood pressure 122/73, pulse 93, temperature 36.4 C (97.6 F), weight 65.3 kg (144 lb), last menstrual period 11/25/2021, SpO2 98 %. EYES: Sclerae are anicteric bilaterally. Mouth no thrush or exudate. LYMPHATIC: There is no palpable cervical, supraclavicular, axillary or inguinal adenopathy. RESPIRATORY: Inspiratory breath sounds are of normal intensity in all allen. CARDIOVASCULAR: Rhythm is regular. BREAST: Deferred today. ABDOMEN: The abdomen is nondistended. Extremities: No swelling or edema. SKIN: No jaundice or rash. No petechiae. LABS: Component Latest Ref Rng & Units 08/24/2022 WBC 3.70 - 11.00 k/uL 3.84 RBC 3.90 - 5.20 m/uL 4.19 Hemoglobin 11.5 - 15.5 g/dL 10.6 (L) Hematocrit 36.0 - 46.0 % 33.5 (L) MCV 80.0 - 100.0 fL 80.0 MCH 26.0 - 34.0 pg 25.3 (L) MCHC 30.5 - 36.0 g/dL 31.6 RDW-CV 11.5 - 15.0 % 18.9 (H) Platelet Count 150 - 400 k/uL 156 MPV 9.0 - 12.7 fL 10.9 Neut% % 39.0 Abs Neut (ANC) 1.45 - 7.50 k/uL 1.50 Lymph% % 47.7 Abs Lymph 1.00 - 4.00 k/uL 1.83 Macomb% % 9.4 Abs Macomb <0.87 k/uL 0.36 Eosin% % 2.1 Abs Eosin <0.46 k/uL 0.08 Baso% % 1.3 Abs Baso <0.11 k/uL 0.05 Immature Gran % % 0.5 IMMATURE GRANS (ABS) <0.10 k/uL <0.03 NRBC /100 WBC 0.0 Absolute nRBC <0.01 k/uL <0.01 DTYPE Auto ASSESSMENT/PLAN: (C50.412, Z17.0) Malignant neoplasm of upper-outer quadrant of left breast in female, estrogen receptor positive (HCC) (primary encounter diagnosis) Assessment: -cT2 cN0 M0 ER/VA positive, HER2 overexpressed clinical stage IIA infiltrating ductal carcinoma of the left breast. -Significant family history of breast cancer. Several family members who were tested were negative for deleterious gene mutation. -Patient's genetic testing through [facility] was negative (see scanned report 11/25/2021). -Had egg harvesting. She understands that she will require at a minimum 5 years of OS with AI therapy following surgery. -Tolerating Lupron well. -Tolerated TCHP well overall with no severe or unexpected toxicity except for fatigue and diarrhea. -Adjuvant radiation not recommended. -She is having more fatigue after successive doses of Kadcyla. She questions if she would be able to stop short of the 14 doses. I encouraged her to continue therapy for now, we will add Vicodin to help with the bone pain from Neulasta. We will also consider dose reduction in the future if needed. -Previously reviewed tumor board recommendations. -Again discussed rationale for AI therapy. Will try anastrozole. If side effect profile too much then tamoxifen until finished with Kadcyla then re-trial of anastrozole. Plan: -Continue Kadcyla at 3.6 mg/m2 with Neulasta support since curative intent. -Echo in 2 months. -Continue monthly Lupron injection. Keep one week apart from Kadcyla--gets bad migraine when given same day. -Begin anastrozole. -Rx Vicodin for back pain from Neulasta. I spent 30 minutes in the visit, with more than 50% of the total [id number] time of the visit in counseling / coordination of care. Portions of this documentation were copied and pasted from previous office visit notes in order to provide a cohesive continuity of the history. The note has been reviewed and edited and updated as necessary. Chantal Ayers DO Cc; Braden Torres DO documented in this encounter [facility] 08-15-2022 Miscellaneous Notes [facility] 1Y21 IRB: [id number] Real World Treatment Experience of Patients with Breast, Lung, or GI Cancer or Multiple Myeloma Using Remote Symptom Monitoring Informed Consent signed on: June STUDY ID #: [id number] Week: 06/19 Date of event report: August 14, 2022 1) Severity:SA-CTC: Severe Fatigue SA-CTC: Fatigue Score 3 Alert was managed by: SHRUTHI Werner patient request a call back: Yes -Continue to monitor your symptoms and report any changes and We are glad we could talk with you. Please let us know if we can do more to help Was study physician consulted / notified: No - Patient did not need the call back 2) Severity:Carevive: Other Symptoms - Back pain from the Neulasta. Lasted about 3 days. Certain movements would make it hurt so bad it took my breath away. I also got a very bad migraine two days after treatment that made me nauseous. I think the migraine was a side effect of getting my lupron injection at the same time as my treatment again Alert was managed by: SHRUTHI Werner patient request a call back: Yes -Continue to monitor your symptoms and report any changes and We are glad we could talk with you. Please let us know if we can do more to help Was study physician consulted / notified: No - Patient did not need the call back 1) Severity:SA-CTC: Severe Pain SA-CTC: Pain Score 3 SA-CTC: Very Severe Muscle Pain SA-CTC: Pain Score 3 BPI-sf: 9 Alert was managed by: SHRUTHI Werner patient request a call back: Yes -Continue to monitor your symptoms and report any changes and We are glad we could talk with you. Please let us know if we can do more to help Was study physician consulted / notified: No - Patient did not need the call back PDF saved to [employer] Mechanic: Rebekah Fermin RN The patient knows to follow provider's treatment plan and to continue to complete the weekly electronic surveys, to be sent for minimum of 12 weeks. Patient understands to call the office sooner if needed and has my contact information for any additional questions regarding the study. Rebekah Fermin RN documented in this encounter [facility] 08-04-2022 Miscellaneous Notes benchee message read. Iron added to med list. Alta Beckford LPN Left message for patient to contact office. Also sent benchee message. Alta Beckford LPN Please let her know that her iron is a little low. Start OTC ferrous sulfate 325 mg tablets once every other day. Chantal Ayers DO documented in this encounter [facility] 08-03-2022 History of Present illness Narrative ANC 1.12. Spoke with Dr. Ayers, delay tx until Sunday or Sunday. Pt rescheduled for Sunday. documented in this encounter [facility] 08-01-2022 History of Present illness Narrative Oncologic problem(s): 1) HER2 positive breast cancer. HPI: The patient is a 32-year-old female with a past medical history significant for Crohn's disease (dx 2013), vitiligo and dysmenorrhea. She self discovered a mass in the left breast. She underwent a bilateral diagnostic mammogram on 10/04/2021. The breasts were noted to be extremely dense lowering the sensitivity of the mammography. The palpable abnormality however corresponded to a 1.2 x 1.4 cm spiculated nodule in the deep lateral axillary region of the breast. Microcalcifications were identified within it. Patient underwent ultrasound of the breast on the same day. In the left breast corresponding to the palpable abnormality there was a 1.3 x 1.3 x 1.1 heterogeneous hypoechoic solid mass with microcalcifications at the 1 o'clock position of the breast 8 cm from the nipple. Increased vascularity was observed. Patient was referred to Dr. Farrar. She underwent a left core needle biopsy on 10/07/2021. 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 VA variable 10 to 50%, moderate intensity. HER-2/chaz 3+ IHC. Regular menses. OCPs starting age 17. Stopped age 30 to try to get . Stopped trying to get because had flare of Crohn's. Generalized itching all over--started last April. Triggered by heat (showever). Injured coccyx snowboarding in high school. Hurting more lately. Crohn's under control with anti-inflammatory diet. She underwent MRI of the breast on 10/20/2021. In the left breast in the upper outer quadrant there was an irregular mass with internal biopsy clip artifact representing biopsy-proven invasive carcinoma. There was an adjacent clumped nonmass enhancement that correlated to the adjacent suspicious focal asymmetry/architectural distortion with calcifications on the 10/04/2021 mammogram. Overall area of contiguous involvement in the upper outer quadrant (mass with adjacent non-mass enhancement) measured up to 2.7 cm in greatest dimension. He was noted that on a postbiopsy diagnostic mammogram that was available for comparison there was a possible group of indeterminate appearing calcifications in the upper outer quadrant posterior depth for which magnification views were recommended. Two additional abnormalities were identified in the breast--There is an additional irregular 0.5 x 0.4 x 0.4 cm (transverse by AP by cc dimensions) in the left upper-outer quadrant (series 7 image 75) which demonstrates heterogeneous enhancement with prominent central washout kinetics concerning for an additional site of involvement. There is an additional 0.4 x 0.4 x 0.4 cm mass upper CENTRAL breast (series 7 image 76) which also demonstrates heterogeneous enhancement with prominent central washout kinetics concerning for an additional site of involvement. LYMPH NODES: There are no suspicious axillary or internal mammary lymph nodes in either breast. RIGHT BREAST: There is no suspicious mass or area of non-mass enhancement identified within limitation of marked background parenchymal enhancement. Underwent MRI guided biopsy with clip placement 11/01/2021. Pathology: A. Breast, left, upper outer aspect, calcifications, Twirl clip, stereotactic core biopsy: --Atypical ductal hyperplasia (ADH). --Microcalcifications are present in ducts adjacent to ADH. --Please see comment. B. Breast, left, at 10:00, 3 cm from the nipple, Q clip, ultrasound-guided core biopsy: --Fibroadenoma. Second MRI breast biopsy 11/10/2021 Pathology: A. 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 Previous therapy: 1) TCH-P. Completed cycle #6 on 03/14/2022. 2) Herceptin x1 dose pre-operatively 04/07/2022. 3) Underwent left nipple sparing mastectomy, left sentinel lymph node mapping and biopsy, right prophylactic nipple sparing mastectomy along with right breast reconstruction direct to implant with total acellular dermal matrix coverage and left breast reconstruction direct to implant with total acellular dermal matrix coverage on 04/17/2022. Pathology: Tumor bed: The tumor bed measures 40 x 40 mm in size, and shows variable cellularity with an average of 22% viable cells; of these viable cells 96.5% are ductal carcinoma in situ and 3.5% are invasive carcinoma. The invasive carcinoma measures 16 mm in greatest dimension. Margins: Margin Status for Invasive Carcinoma:All margins negative for invasive carcinoma. Distance from Invasive Carcinoma to Closest Margin:1 mm Closest Margin(s) to Invasive Carcinoma: Superior Margin Status for DCIS:All margins negative for DCIS Distance from DCIS to Closest Margin:1.0 mm Closest Margin(s) to DCIS:Posterior Distance from DCIS to Superior Margin:1.5 mm A: Lymph nodes, left sentinel, x3 axillary, excision: - Four lymph nodes, negative for carcinoma (0/4). B: Breast, left, mastectomy: - Residual invasive ductal carcinoma, post neoadjuvant therapy, measuring 16 mm in greatest dimension. - Residual ductal carcinoma in situ, low and intermediate grades (nuclear grades 1 and 2) with comedonecrosis and microcalcifications. - Focal atypical ductal hyperplasia (ADH). - Margins are negative for carcinoma (distance to closest margin: 1 mm to superior margin). - Q clip, twirl clip, hourglass clip, and coil clip are identified. - Two intramammary lymph nodes, negative for carcinoma (0/2). - Biopsy site changes are present. - Fibroadenoma. - Background mammary parenchyma with fibroadenomatoid changes, fibrocystic changes, and microcalcifications. C: Breast, left, nipple, resection: - Mammary tissue, negative for carcinoma. D: Breast, right, mastectomy: - PENDING IHCs E: Breast, right, nipple, resection: - Benign mammary tissue. Presents for ongoing oncologic management. Current therapy: 1) Kadcyla (06/13/2022 -present) 2) Lupron monthly. 3) Anastrozole. Hasn't started. Interim history: Nausea day 2. Phenergan helps. No diarrhea. Fatigue lingers, but not terrible. Occasional hot flash mostly at night. PMH, medications and allergies personally reviewed by me today. Any changes documented in appropriate section. ROS: Constitutional: Denies episodes of fever and night sweats. Not significantly fatigued. Normal appetite. Neuro: Denies RAE, vertigo, dizziness and imbalance. Resp: Denies cough, wheeze and hemoptysis. Denies shortness of breath at rest. Denies HILL. CVS: Denies exertional chest pain, PND, orthopnea and LE edema. GI: Denies dysgeusia. Denies symptoms of stomatitis. Denies dysphagia and odynophagia. : Denies dysuria or gross hematuria. No symptoms of bladder outlet obstruction. Endo: Denies hot flashes. Denies polyuria and polydipsia. Denies heat and cold intolerance. Musculoskeletal: Denies bone, back, joint and muscular pain. Derm: Denies rash. Denies jaundice and diffuse pruritis. Heme: Denies unusual bleeding and unexplained bruising. Psych: Normal mood. PHYSICAL EXAM: Well-appearing and in no acute distress. BP 114/78 Pulse 87 Temp 98.2 Wt 145 lb (65.8kg) SpO2 98% LMP 11/25/2021 EYES: Sclerae are anicteric bilaterally. Mouth no thrush or exudate. LYMPHATIC: There is no palpable cervical, supraclavicular, axillary or inguinal adenopathy. RESPIRATORY: Inspiratory breath sounds are of normal intensity in all allen. CARDIOVASCULAR: Rhythm is regular. BREAST: Deferred today. ABDOMEN: The abdomen is nondistended. Extremities: No swelling or edema. SKIN: No jaundice or rash. No petechiae. LABS: Component Latest Ref Rng & Units 08/01/2022 WBC 3.70 - 11.00 k/uL 3.54 (L) RBC 3.90 - 5.20 m/uL 4.25 Hemoglobin 11.5 - 15.5 g/dL 10.6 (L) Hematocrit 36.0 - 46.0 % 33.9 (L) MCV 80.0 - 100.0 fL 79.8 (L) MCH 26.0 - 34.0 pg 24.9 (L) MCHC 30.5 - 36.0 g/dL 31.3 RDW-CV 11.5 - 15.0 % 18.0 (H) Platelet Count 150 - 400 k/uL 183 MPV 9.0 - 12.7 fL 10.3 Neut% % 32.2 Abs Neut (ANC) 1.45 - 7.50 k/uL 1.14 (L) Lymph% % 50.6 Abs Lymph 1.00 - 4.00 k/uL 1.79 Macomb% % 13.3 Abs Macomb <0.87 k/uL 0.47 Eosin% % 2.5 Abs Eosin <0.46 k/uL 0.09 Baso% % 1.4 Abs Baso <0.11 k/uL 0.05 Immature Gran % % 0.0 IMMATURE GRANS (ABS) <0.10 k/uL <0.03 NRBC /100 WBC 0.0 Absolute nRBC <0.01 k/uL <0.01 DTYPE Auto ASSESSMENT/PLAN: (C50.412, Z17.0) Malignant neoplasm of upper-outer quadrant of left breast in female, estrogen receptor positive (HCC) (primary encounter diagnosis) Assessment: -cT2 cN0 M0 ER/VA positive, HER2 overexpressed clinical stage IIA infiltrating ductal carcinoma of the left breast. -Significant family history of breast cancer. Several family members who were tested were negative for deleterious gene mutation. -Patient's genetic testing through [facility] was negative (see scanned report 11/25/2021). -Had egg harvesting. She understands that she will require at a minimum 5 years of OS with AI therapy following surgery. -Tolerating Lupron well. -Tolerated TCHP well overall with no severe or unexpected toxicity except for fatigue and diarrhea. -Adjuvant radiation not recommended. -Reviewed tumor board recommendations. -Discussed rationale for AI therapy. -Reviewed echocardiogram. -ANC under threshold for treatment today. Plan: -Continue Kadcyla, but delay one day and recheck CBC prior to start. -Echo in 3 months. -Continue monthly Lupron injection. -Begin anastrozole. I spent 30 minutes in the visit, with more than 50% of the total [id number] time of the visit in counseling / coordination of care. Portions of this documentation were copied and pasted from previous office visit notes in order to provide a cohesive continuity of the history. The note has been reviewed and edited and updated as necessary. Chantal Ayers DO Cc; DO Paulina Adams DO documented in this encounter [facility] 07-21-2022 History of Present illness Narrative [facility] 1Y21 IRB: [id number] Real World Treatment Experience of Patients with Breast, Lung, or GI Cancer or Multiple Myeloma Using Remote Symptom Monitoring Informed Consent signed on: June STUDY ID #: [id number] Week: 02/17 Date of event report: July 21, 2022 1) Severity: SA-CTC: Severe Nausea Alert was managed by: SHRUTHI Fermin Did patient request a call back: No Was study physician consulted / notified: No - Informed to continue to monitor and if the phenergan is not working - please let us know. 2) Severity: Severe - SA-CTC: Severe Muscle Pain SA-CTC:Pain Score 3 Alert was managed by: SHRUTHI Fermin Did patient request a call back: No Was study physician consulted / notified:No- Please continue to monitor. PDF saved to [employer] Mechanic: Rebekah Fermin RN The patient knows to follow provider's treatment plan and to continue to complete the weekly electronic surveys, to be sent for minimum of 12 weeks. Patient understands to call the office sooner if needed and has my contact information for any additional questions regarding the study. Rebekah Fermin RN documented in this encounter [facility] 07-20-2022 Miscellaneous Notes Patient's request for medication is as follows Requested Prescriptions Signed Prescriptions Disp Refills anastrozole (ARIMIDEX) 1 mg tablet 90 tablet 2 Sig: TAKE 1 TABLET BY MOUTH EVERY DAY Authorizing Provider: LANCE CLEMENT Order entered - please phone pharmacy and notify patient. Lance Clement MD Pharmacy requesting 90 day rx. Patient has been identified by name and date of : Yes Requested Prescriptions Pending Prescriptions Disp Refills anastrozole (ARIMIDEX) 1 mg tablet [Pharmacy Med Name: ANASTROZOLE 1 MG TABLET] 90 tablet 2 Sig: TAKE 1 TABLET BY MOUTH EVERY DAY RX INSTRUCTIONS: Patient aware RX will be sent to pharmacy. No need to notify patient. Em Duff LPN documented in this encounter [facility] 07-14-2022 Miscellaneous Notes Perhaps a combination of the Lupron and the Kadcyla triggered the headache. We have had other patients that have requested the 2 drugs not be given on the same day so we can split them up for Stephen as well. I sent an email to Thong via [employer] in regards to the premed regimen. Yes, the intention was for her to have an aromatase inhibitor which I had in my last note. However I usually do not have patient's start anastrozole until the time of their second Lupron injection. Chantal Ayers DO Spoke to patient. Patient stated she had C2 kadcyla on 07/12/22. Patient also stated she received lupron the same day. Patient stated that evening and the next day she was nauseous; promethazine helps with nausea but stated she had nausea symptoms same day/next day after C1. Patient stated night she woke up in the middle of the night with a 6/10 all over headache. Patient denies visual changes, dizziness, or gait changes. Patient stated she has been drinking adequate fluids, denies vomiting or fluid loss. Patient has a h/o migraines but stated this was different from her typical migraine. Patient took tylenol for headache pain which dulled the pain down. Patient woke up this morning with some residual pain and now the pain has subsided. Patient asking for Dr. Ayers to be aware of headache pain. Patient instructed to monitor headache symptoms and to call if she continues to have headaches. Patient aware this nurse can speak to Dr. Ayers about adding an antiemetic to pre-meds, she was agreeable to this. Patient also asking if she is supposed to start anastrozole. Dr. Clement prescribed at her last OV but patient wants to be sure she is to start anastrozole and not tamoxifen. Patient has not started anastrozole. Krissy Beckham RN Patient states she would like to speak to Krissy regarding medication questions she has and a side effect she has been having from last treatment. documented in this encounter [facility] 07-06-2022 History of Present illness Narrative Oncologic problem(s): 1) HER2 positive breast cancer. Per Dr. Ayers's last visit on 05/22/2022 HPI: The patient is a 32-year-old female with a past medical history significant for Crohn's disease (dx 2013), vitiligo and dysmenorrhea. She self discovered a mass in the left breast. She underwent a bilateral diagnostic mammogram on 10/04/2021. The breasts were noted to be extremely dense lowering the sensitivity of the mammography. The palpable abnormality however corresponded to a 1.2 x 1.4 cm spiculated nodule in the deep lateral axillary region of the breast. Microcalcifications were identified within it. Patient underwent ultrasound of the breast on the same day. In the left breast corresponding to the palpable abnormality there was a 1.3 x 1.3 x 1.1 heterogeneous hypoechoic solid mass with microcalcifications at the 1 o'clock position of the breast 8 cm from the nipple. Increased vascularity was observed. Patient was referred to Dr. Farrar. She underwent a left core needle biopsy on 10/07/2021. 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 VA variable 10 to 50%, moderate intensity. HER-2/chaz 3+ IHC. Regular menses. OCPs starting age 17. Stopped age 30 to try to get . Stopped trying to get because had flare of Crohn's. Generalized itching all over--started last April. Triggered by heat (showever). Injured coccyx snowboarding in high school. Hurting more lately. Crohn's under control with anti-inflammatory diet. She underwent MRI of the breast on 10/20/2021. In the left breast in the upper outer quadrant there was an irregular mass with internal biopsy clip artifact representing biopsy-proven invasive carcinoma. There was an adjacent clumped nonmass enhancement that correlated to the adjacent suspicious focal asymmetry/architectural distortion with calcifications on the 10/04/2021 mammogram. Overall area of contiguous involvement in the upper outer quadrant (mass with adjacent non-mass enhancement) measured up to 2.7 cm in greatest dimension. He was noted that on a postbiopsy diagnostic mammogram that was available for comparison there was a possible group of indeterminate appearing calcifications in the upper outer quadrant posterior depth for which magnification views were recommended. Two additional abnormalities were identified in the breast--There is an additional irregular 0.5 x 0.4 x 0.4 cm (transverse by AP by cc dimensions) in the left upper-outer quadrant (series 7 image 75) which demonstrates heterogeneous enhancement with prominent central washout kinetics concerning for an additional site of involvement. There is an additional 0.4 x 0.4 x 0.4 cm mass upper CENTRAL breast (series 7 image 76) which also demonstrates heterogeneous enhancement with prominent central washout kinetics concerning for an additional site of involvement. LYMPH NODES: There are no suspicious axillary or internal mammary lymph nodes in either breast. RIGHT BREAST: There is no suspicious mass or area of non-mass enhancement identified within limitation of marked background parenchymal enhancement. Underwent MRI guided biopsy with clip placement 11/01/2021. Pathology: A. Breast, left, upper outer aspect, calcifications, Twirl clip, stereotactic core biopsy: --Atypical ductal hyperplasia (ADH). --Microcalcifications are present in ducts adjacent to ADH. --Please see comment. B. Breast, left, at 10:00, 3 cm from the nipple, Q clip, ultrasound-guided core biopsy: --Fibroadenoma. Second MRI breast biopsy 11/10/2021 Pathology: A. 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 Previous therapy: 1) TCH-P. Completed cycle #6 on 03/14/2022. 2) Herceptin x1 dose pre-operatively 04/07/2022. 3) Underwent left nipple sparing mastectomy, left sentinel lymph node mapping and biopsy, right prophylactic nipple sparing mastectomy along with right breast reconstruction direct to implant with total acellular dermal matrix coverage and left breast reconstruction direct to implant with total acellular dermal matrix coverage on 04/17/2022. Pathology: Tumor bed: The tumor bed measures 40 x 40 mm in size, and shows variable cellularity with an average of 22% viable cells; of these viable cells 96.5% are ductal carcinoma in situ and 3.5% are invasive carcinoma. The invasive carcinoma measures 16 mm in greatest dimension. Margins: Margin Status for Invasive Carcinoma:All margins negative for invasive carcinoma. Distance from Invasive Carcinoma to Closest Margin:1 mm Closest Margin(s) to Invasive Carcinoma: Superior Margin Status for DCIS:All margins negative for DCIS Distance from DCIS to Closest Margin:1.0 mm Closest Margin(s) to DCIS:Posterior Distance from DCIS to Superior Margin:1.5 mm A: Lymph nodes, left sentinel, x3 axillary, excision: - Four lymph nodes, negative for carcinoma (0/4). B: Breast, left, mastectomy: - Residual invasive ductal carcinoma, post neoadjuvant therapy, measuring 16 mm in greatest dimension. - Residual ductal carcinoma in situ, low and intermediate grades (nuclear grades 1 and 2) with comedonecrosis and microcalcifications. - Focal atypical ductal hyperplasia (ADH). - Margins are negative for carcinoma (distance to closest margin: 1 mm to superior margin). - Q clip, twirl clip, hourglass clip, and coil clip are identified. - Two intramammary lymph nodes, negative for carcinoma (0/2). - Biopsy site changes are present. - Fibroadenoma. - Background mammary parenchyma with fibroadenomatoid changes, fibrocystic changes, and microcalcifications. C: Breast, left, nipple, resection: - Mammary tissue, negative for carcinoma. D: Breast, right, mastectomy: - PENDING IHCs E: Breast, right, nipple, resection: - Benign mammary tissue. Presents for ongoing oncologic management. Current treatment: Kadcyla (06/13/2022 -present) Interim history: Symptoms of fever, chills and body aches a week ago. Positive test for Covid. Also was treated for strep pharyngitis. Completing amoxicillin today. Congestion improving. Cough improved. No sore throat. No wheezing. No dyspnea. No chest pain or pressure. No sinus pain/pressure/tenderness. No significant nausea or vomiting after chemotherapy. 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 PMH, medications and allergies personally reviewed by me today. Any changes documented in appropriate section. ROS: Constitutional: Denies episodes of fever and night sweats. Not significantly fatigued. Normal appetite. Neuro: Denies RAE, vertigo, dizziness and imbalance. Resp: Denies cough, wheeze and hemoptysis. Denies shortness of breath at rest. Denies HILL. CVS: Denies exertional chest pain, PND, orthopnea and LE edema. GI: Denies dysgeusia. Denies symptoms of stomatitis. Denies dysphagia and odynophagia. : Denies dysuria or gross hematuria. No symptoms of bladder outlet obstruction. Endo: Denies hot flashes. Denies polyuria and polydipsia. Denies heat and cold intolerance. Musculoskeletal: Denies bone, back, joint and muscular pain. Derm: Denies rash. Denies jaundice and diffuse pruritis. Heme: Denies unusual bleeding and unexplained bruising. Psych: Normal mood. PHYSICAL EXAM: Well-appearing and in no acute distress. BP 127/74 Pulse 87 Temp (Src) 98 (Temporal) Wt 142 lb (64.4kg) LMP 11/25/2021 EYES: Sclerae are anicteric bilaterally. Mouth no thrush or exudate. LYMPHATIC: There is no palpable cervical, supraclavicular, axillary or inguinal adenopathy. RESPIRATORY: Inspiratory breath sounds are of normal intensity in all allen. CARDIOVASCULAR: Rhythm is regular. BREAST: Deferred today. Binder on with drains. ABDOMEN: The abdomen is nondistended. Extremities: No swelling or edema. SKIN: No jaundice or rash. No petechiae. LABS: Component Latest Ref Rng & Units 07/06/2022 WBC 3.70 - 11.00 k/uL 4.28 RBC 3.90 - 5.20 m/uL 4.22 Hemoglobin 11.5 - 15.5 g/dL 10.5 (L) Hematocrit 36.0 - 46.0 % 34.1 (L) MCV 80.0 - 100.0 fL 80.8 MCH 26.0 - 34.0 pg 24.9 (L) MCHC 30.5 - 36.0 g/dL 30.8 RDW-CV 11.5 - 15.0 % 16.8 (H) Platelet Count 150 - 400 k/uL 216 MPV 9.0 - 12.7 fL 10.2 Neut% % 39.9 Abs Neut (ANC) 1.45 - 7.50 k/uL 1.71 Lymph% % 48.4 Abs Lymph 1.00 - 4.00 k/uL 2.07 [place]% % 8.9 Abs [place] <0.87 k/uL 0.38 Eosin% % 1.6 Abs Eosin <0.46 k/uL 0.07 Baso% % 1.2 Abs Baso <0.11 k/uL 0.05 Immature Gran % % 0.0 IMMATURE GRANS (ABS) <0.10 k/uL <0.03 NRBC /100 WBC 0.0 Absolute nRBC <0.01 k/uL <0.01 DTYPE Auto Component Latest Ref Rng & Units 07/06/2022 Protein, Total 6.3 - 8.0 g/dL 7.0 Albumin 3.9 - 4.9 g/dL 4.5 Calcium 8.5 - 10.2 mg/dL 9.4 Bilirubin, Total 0.2 - 1.3 mg/dL 0.2 Alkaline Phosphatase 34 - 123 U/L 145 (H) AST 13 - 35 U/L 22 ALT 7 - 38 U/L 15 Glucose 74 - 99 mg/dL 93 BUN 7 - 21 mg/dL 9 Creatinine 0.58 - 0.96 mg/dL 0.58 Sodium 136 - 144 mmol/L 140 Potassium 3.7 - 5.1 mmol/L 3.7 Chloride 97 - 105 mmol/L 102 CO2 22 - 30 mmol/L 26 Anion Gap 9 - 18 mmol/L 12 eGFR >=60 mL/min/1.73m 124 ASSESSMENT/PLAN: (C50.412, Z17.0) Malignant neoplasm of upper-outer quadrant of left breast in female, estrogen receptor positive (HCC) (primary encounter diagnosis) Assessment: -cT2 cN0 M0 ER/VA positive, HER2 overexpressed clinical stage IIA infiltrating ductal carcinoma of the left breast. -Significant family history of breast cancer. Several family members who were tested were negative for deleterious gene mutation. -Patient's genetic testing through [facility] was negative (see scanned report 11/25/2021). -Had egg harvesting. She understands that she will require at a minimum 5 years of OS with AI therapy following surgery. -Tolerating Lupron well. -Tolerated TCHP well overall with no severe or unexpected toxicity except for fatigue and diarrhea. -She is recovering nicely from COVID infection. -Again discussed rationale for Kadcyla but also discussed potential eligibility for the HARLAN-Pnfeyr97/NSABP B-60 trial. -Adjuvant radiation not recommended. -Reviewed tumor board recommendations. Plan: -Continue Kadcyla next week on 07/12/2022. -Double check on eligibility for the HARLAN-breast 05 trial. -Repeat 2D echocardiogram. -Continue monthly Lupron injection. -Start AI therapy x 5 years -anastrozole 1mg once daily starting tomorrow I spent 30 minutes in the visit, with more than 50% of the total [id number]-[id number] time of the visit in counseling / coordination of care. Portions of this documentation were copied and pasted from previous office visit notes in order to provide a cohesive continuity of the history. The note has been reviewed and edited and updated as necessary. Lance Clement MD Cc; DO Paulina Adams DO documented in this encounter [facility] 06-30-2022 History of Present illness Narrative [facility] 1Y21 IRB: [id number] Real World Treatment Experience of Patients with Breast, Lung, or GI Cancer or Multiple Myeloma Using Remote Symptom Monitoring Informed Consent signed on: June STUDY ID #: [id number] Week: 08/20 1) Severity: SA-CTC: Severe Chills Alert was managed by: SHRUTHI Werner patient request a call back: No Was study physician consulted / notified: No - Patient went to urgent care and has strep - Masci was made aware by [facility] Coordinator. 2) Severity: Severe - SA-CTC: Severe Decreased Appetite SA-CTC: Decreased Appetite Score 3 Alert was managed by: SHRUTHI Fermin Did patient request a call back: No Was study physician consulted / notified:No - Patient went to urgent care and has strep - Masci was made aware by [facility] Coordinator. 3) Severity: SA-CTC: Fever (100.4 F or higher) Alert was managed by: SHRUTHI Fermin Did patient request a call back: No Was study physician consulted / notified: No - Patient went to urgent care and has strep - Masci was made aware by [facility] Coordinator. 4) Severity: SA-CTC: Severe Nausea SA-CTC: Severe Vomiting Alert was managed by: SHRUTHI Fermin Did patient request a call back: No Was study physician consulted / notified: No - Doctor already aware of symptom and likely worsened due to strep throat. 5) Severity: SA-CTC: Severe Muscle Pain SA-CTC: Pain Score 3 Alert was managed by: SHRUTHI Fermin Did patient request a call back: No Was study physician consulted / notified: No - Doctor already aware of symptom and likely worsened due to strep throat. PDF saved to [employer] Machine Mechanic: Rebekah Fermin RN The patient knows to follow provider's treatment plan and to continue to complete the weekly electronic surveys, to be sent for minimum of 12 weeks. Patient understands to call the office sooner if needed and has my contact information for any additional questions regarding the study. Rebekah Fermin RN documented in this encounter [facility] 06-27-2022 Miscellaneous Notes Patient returned call and went over results, notes from express care provider with understanding. Left message for patient to return call. Kandy Amaral COVID-19 influenza a and B test negative. Continue amoxicillin for strep throat. Follow-up with PCP/oncology for further evaluation care. Ace Atkins APRN.KASH documented in this encounter [facility] 06-26-2022 History of Present illness Narrative Subjective HPI Nontoxic-appearing female presents urgent care chief complaint sore throat. Duration of symptom 24 hours. Associated symptoms sore throat fever. Patient states 1 episode of vomiting today. Has not vomited since. Is staying hydrated. No known sick contacts. Denies any significant pain. Did take Tylenol today approximately 7 hours ago. Denies any productive cough chest pain shortness of breath pleuritic pain hemoptysis abdominal pain change in bowel or bladder habits. Past medical history prescription medication use allergies reviewed. Risk factors malignant neoplasm left breast. Chemotherapy. .Patient presents with: Sore Throat: fever x last night nausea and vomiting x today PAST MEDICAL HISTORY Diagnosis Date Abnormal Pap smear of cervix Anal fissure Anemia with crohns Cancer (HCC) breast cancer Crohn's disease (HCC) 07/09/2013 Hypoglycemia Malignant neoplasm of left breast (HCC) 09/2021 PMH - PAST MEDICAL HISTORY OF 04/08/2004 Normal color vision PMH - PAST MEDICAL HISTORY OF 12/23/2001 Pneumonia PAST SURGICAL HISTORY Procedure Laterality Date COLONOSCOPY 07/09/2013 EXTRACTION ERUPTED TOOTH/EXR age 17 PAST SURGICAL HISTORY OF 07/09/2006 Cyst removal in right wrist TONSILLECTOMY PRIMARY/SECONDARY AGE 13/> 10/07/2008 BREAST NEEDLE CORE BIOPSY LT Left 09/2021 ALLERGIES Patient has no known allergies. MEDICATIONS promethazine (PHENERGAN) 25 mg tablet^Take 1 tablet by mouth every 6 hours as needed. FOR NAUSEA^Disp: 30 tablet^Rfl: 2 diphenoxylate-atropine (LOMOTIL) 2.5-0.025 mg per tablet^Take 1 tablet by mouth four times daily as needed for up to 30 days.^Disp: 60 tablet^Rfl: 0 LUPRON DEPOT 3.75 mg injection^Inject 3.75 mg intramuscularly once every month. Once a month during chemotherapy^Disp: ^Rfl: FAMILY HISTORY Problem Relation Age of Onset Heart Maternal Grandmother triple by pass Breast Cancer Maternal Grandmother Coronary Artery Disease Paternal Grandfather Diabetes Paternal Grandfather other (DC) Paternal Grandfather age 45 Breast Cancer Other Maternal Great Aunt x2 Social History Tobacco Use Smoking status: Never Smokeless tobacco: Never Vaping Use Vaping Use: Never used Substance Use Topics Alcohol use: Not Currently Comment: Occasionally Drug use: No BP 122/72 Pulse (!) 124 Temp (!) 39.3 C (102.8 F) Resp 20 Wt 65.3 kg (144 lb) LMP 11/25/2021 SpO2 98% BMI 21.90 kg/m Review of Systems Constitutional: Positive for fever. Negative for chills and malaise/fatigue. HENT: Positive for sore throat. Negative for congestion, ear discharge, ear pain and sinus pain. Eyes: Negative for blurred vision, pain, discharge and redness. Respiratory: Negative for cough, hemoptysis, sputum production, shortness of breath, wheezing and stridor. Cardiovascular: Negative for chest pain. Gastrointestinal: Negative for abdominal pain, diarrhea, nausea and vomiting. Musculoskeletal: Negative for myalgias. Skin: Negative for itching and rash. Neurological: Negative for dizziness and headaches. Objective Physical Exam Constitutional: General: She is not in acute distress. Appearance: She is not diaphoretic. HENT: Head: Normocephalic. Jaw: No trismus, tenderness, swelling or pain on movement. Mouth/Throat: Lips: [place]. Mouth: Mucous membranes are moist. Pharynx: Oropharynx is clear. Uvula midline. Posterior oropharyngeal erythema present. No pharyngeal swelling, oropharyngeal exudate or uvula swelling. Eyes: Conjunctiva/sclera: Conjunctivae normal. Pupils: Pupils are equal, round, and reactive to light. Cardiovascular: Rate and Rhythm: Normal rate and regular rhythm. Heart sounds: Normal heart sounds. Pulmonary: Effort: Pulmonary effort is normal. No tachypnea, accessory muscle usage or respiratory distress. Breath sounds: Normal breath sounds. No stridor. No wheezing, rhonchi or rales. Abdominal: Palpations: Abdomen is soft. Tenderness: There is no abdominal tenderness. Musculoskeletal: Cervical back: Normal range of motion and neck supple. No rigidity or tenderness. Lymphadenopathy: Cervical: No cervical adenopathy. Skin: General: Skin is warm and dry. Neurological: Mental Status: She is alert and oriented to person, place, and time. ASSESSMENT/PLAN: 1. Sore throat - ICD9: 462, ICD10: J02.9 (primary diagnosis) - STREP A MOLECULAR (POC) - COVID WITH FLUA+B, ROUTINE 2. Suspected COVID-19 virus infection - ICD9: V01.79, ICD10: Z20.822 - COVID WITH FLUA+B, ROUTINE Strep test positive. Patient nontoxic-appearing. No evidence of the dehydration. No evidence of deep neck infection. Placed on amoxicillin. Follow-up with oncology/PCP elevation 2 to 3 days. Patient was educated on supportive therapies. Patient will follow up with primary care provider as needed. Patient was instructed to immediately proceed to emergency room for any new, worsening, or symptoms lasting longer than anticipated. The patient's clinical presentation is otherwise unremarkable at this time. Based on exam and clinical finding, the patient is stable for discharge. Plan of care was discussed with patient. Patient verbalizes understanding and agrees to plan of care. This note was generated using [employer] software. It may contain errors in wording, punctuation, or spelling. Ace Atkins APRN.KASH documented in this encounter [facility] 06-26-2022 Miscellaneous Notes Patient aware to go to Urgent care at this time per Dr. Ayers. Questions answered and patient will leave soon. Preeti Fonseca RN Call to patient, she fully recovered from virus she had last week. But states she started with a sore throat yesterday evening. States it hurts and is hard to swallow. Denies mouth sores but states she looked in the mirror with flashlight and thinks her uvula looks swollen. States it feels like strep throat States she check her temperature this am, 99.3F Later in the morning around 10am, she felt cold and clammy, felt nauseated, checked her temperature and 96.7F. She went to bed and feels a little better now. She is c/o of fatigue, all over body aches, mild headache, mild nasal congestion. No cough, diarrhea. Appetite decreased but able to eat small amount of chicken noodle soup and tolerated. She denies exposures to others that she knows are sick. Reviewed over the counter medications for symptom management, push fluids, small frequent meal (bland foods). She is aware that I will discuss with Dr Ayers and call back with further instructions. Preeti Fonseca RN documented in this encounter [facility] 06-22-2022 History of Present illness Narrative [facility] 1Y21 IRB: [id number] Real World Treatment Experience of Patients with Breast, Lung, or GI Cancer or Multiple Myeloma Using Remote Symptom Monitoring Informed Consent signed on: June STUDY ID #: [id number] Week: 07/20 1) Severity: Severe - Fatigue Alert was managed by: SHRUTHI Fermin Did patient request a call back: No Was study physician consulted / notified: No - these are symptoms the doctor was already aware of and not new 2) Severity: Severe - Nausea/Vomiting Alert was managed by: SHRUTHI Fermin Did patient request a call back: No Was study physician consulted / notified: No - these are symptoms the doctors were already aware of and not new and the other symptoms reported were already informed to Krissy Beckham the [employer] Librarian and . Patient has medications ordered at home for nausea. 3) Severity: Severe - Pain SA-CTC:Very Severe Muscle Pain Alert was managed by: SHRUTHI Fermin Did patient request a call back: No Was study physician consulted / notified: No - these are symptoms the doctors were already aware of and not new and the other symptoms reported were already informed to Krissy Beckham the [employer] Librarian and . PDF saved to [employer] Machine Mechanic: Rebekah Fermin RN The patient knows to follow provider's treatment plan and to continue to complete the weekly electronic surveys, to be sent for minimum of 12 weeks. Patient understands to call the office sooner if needed and has my contact information for any additional questions regarding the study. Rebekah Fermin RN documented in this encounter [facility] 06-19-2022 History of Present illness Narrative Episode Visit Count: 2 Therapist That Will Accept/Oversee The Plan Of Care: Kandy Santamaria Start of Care Date: 06/08/22 Onset Date: 04/17/22 Plan of Care Certification Date: 06/08/22 Patient Identified by Name and Date of : Yes REHABILITATION AND SPORTS THERAPY PHYSICAL THERAPY TREATMENT NOTE ASSESSMENT: Stephen Self tolerated the session with no issues. She demonstrated improvements in L shld abd AROM and good compliance with HEP. The patient will continue to benefit from ongoing skilled physical therapy to progress toward set goals. PLAN FOR NEXT VISIT: Assess response to new stretches. Continue passive stretches and may add scapular retractions to HEP. May add manual techniques per soft tissue presentation. SUBJECTIVE: Patient Reason for Visit: Pt stating compliance with HEP, doing pulleys once a day. Pain: Pain Pain Level: 0 Pain Location: Shoulder - Left Description: Tightness Post Treatment Pain Post Treatment Pain Level: 0 OBJECTIVE MEASURES WITH LEVEL OF FUNCTION: UE AROM R Shoulder Flex: 155 Degrees R Shoulder ABduction: 170 Degrees L Shoulder Flex: 143 Degrees L Shoulder ABduction: 162 Degrees L Shoulder External Rotation (Functional): to back of head, feels tightness in pecs TREATMENT: Therapeutic Exercise: 1: Reviewed doorway stretch (pectoral stretch). 2: Reviewed seated shld pulleys (flex and abd) once daily 3: *supine butterfly stretch 3 x 30 sec. 4: *goal post stretches 3 x 30 sec 5: passive L shld stretches with pt in supine Skilled Intervention: Patient was educated in proper exercise technique and purpose for exercises. Reviewed and educated patient on additions/changes for home exercise program as above (*). Skilled judgment was provided in selection of appropriate interventions. Provided written instruction for home exercise program to facilitate proper performance and compliance. Correct performance of therapeutic exercises was facilitated with verbal and visual cuing. Patient education as noted. Manual Therapy: 1: Reviewed serratus anterior, pec major tendon, teres major/minor tendon STM techniques and pt performing correctly iwth no questions. 2: Addition of deep level axillary lymph node massage. Skilled Intervention: Manual skills to improve joint mobility, ROM, and decrease pain. Utilized anatomy knowledge of the therapist, and assessment of patient's response to intervention. Billing Therapeutic Exercise Treatment Minutes: 28 Manual TherapyTreatment Minutes: 10 Total Treatment Time Minutes (timed/untimed): 38 Kandy Santamaria PT documented in this encounter [facility] 06-16-2022 History of Present illness Narrative REASON FOR TODAY'S VISIT: Patient presents with: Established Patient HISTORY of PRESENT ILLNESS: Stephen Self is a 32 year old year old female who is s/p a LEFT nipple sparing mastectomy, SLNB, RIGHT prophylactic nipple sparing mastectomy with pre-pec implant placement on 04/17/2022 Final pathology LEFT: Residual breast invasive carcinoma, 1.6 cm (closet margin < 0.2 mm to superior margin), 0/4 LN (2 intra-mammary nodes negative). ER+VA+HER2+ [id number] She initially presented 11/2021 with a LEFT breast 2.7 cm IDC, NG 2 with DCIS @ 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 MRI showed 2 satellite lesions. 2nd look performed and [address] appeared normal. ER+VA+HER2+ [id number] Underwent neoadjuvant chemotherapy, TCHP with Dr. Ayers, Finished 03/10/22 Genetic testing was negative HISTORY: Patient was last seen, via virtual visit, on 04/26/2022 In the interim, her case was reviewed at the Breast Tumor Board and post mastectomy adjuuvant Radiation was not recommended. She was advised to begin Kadcyla under the care of Dr. Ayers (Medical Oncologist) and to continue with monthly Lupron injections as well as daily AI medication. She is follow by Dr. García (Plastic Surgeon) for the reconstruction portion of the surgery and reports she is overall hapy with the cosmetic results but notes area of fullness with other areas of volume loss. ROS: HEENT: Denies vision changes or headaches BREAST: Denies palpating any new breast masses, no breast pain, no skin changes, no nipple discharge ABD: Denies any abdominal pain or new changes in bowel habits MUSCULOSKELETAL: Denies any bone, joint or muscle pain EXAMINATION: GEN alert and orientated, well nourished, calm Regional Lymph Nodes There is no concerning supraclavicular, infraclavicular or cervical lymphadenopathy. BREASTS: The patient was examined in the upright and supine position. Lateral breast incisions and skin and nipple areolar complex healing well, no signs of ischemia, infection or seroma RIGHT breast surgically absent with implant in place. Soft, no dominant masses, nipple everted, no discharge, no skin changes. Lateral incision healing well. RIGHT axilla no palpable axillary lymphadenopathy LEFT breast surgically absent with implant in place. Soft, no dominant masses, nipple everted, no discharge, no skin changes. Lateral incision healing well. LEFT axilla no palpable axillary lymphadenopathy Good ROM ABD soft, non-distended, non-tender, no organomegaly EXT ambulated independently, good ROM of upper extremities, no evidence of lymphedema IMPRESSION: Stephen Self is a 32 year old year old female who is s/p a LEFT nipple sparing mastectomy, SLNB, RIGHT prophylactic nipple sparing mastectomy with pre-pec implant placement on 04/17/2022 Final pathology LEFT: Residual breast invasive carcinoma, 1.6 cm (closet margin < 0.2 mm to superior margin), 0/4 LN (2 intra-mammary nodes negative). ER+VA+HER2+ [id number] She initially presented 11/2021 with a LEFT breast 2.7 cm IDC, NG 2 with DCIS @ 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 MRI showed 2 satellite lesions. 2nd look performed and [address] appeared normal. ER+VA+HER2+ [id number] Underwent neoadjuvant chemotherapy, TCHP with Dr. Ayers, Finished 03/10/22 Genetic testing negative PLAN: Ms. Self will follow-up with Dr. Ayers (Medical Oncologist) as scheduled, 08/01/22. Continue with Shira She will follow-up with Dr. Bradford García (Plastic Surgeon) as scheduled later today, for post-op management of breast reconstruction. Discussed no recommendation for radiation. Discussed given her young age and close surgical margin follow-up with a breast MRI annually could be considered. She and her are interested in childbearing. Discussed this could be a possibility to consider after at least 2 years of her cancer systemic therapy treatment. I will see her in 6 months for a clinical breast exam She has our names and numbers to stay in touch if she has any questions, concerns or problems in the interim. Paulina Null DO Breast Surgeon cc: Dr. Elle Torres DO ([facility]) [address] [place] [address] documented in this encounter [facility] 06-16-2022 History of Present illness Narrative CC: post op HPI: Stephen Self is a 32 year old female who presents s/p 04/17/22 bilateral breast reconstruction with direct to implant (SRM 405) placement. No pain or fevers since the procedure. Time post op: 3 months H/o L breast CA, Infiltrating Ductal Carcinoma Grade 2, ER positive, VA positive, HER2 positive (3+). promethazine (PHENERGAN) 25 mg tablet^Take 1 tablet by mouth every 6 hours as needed. FOR NAUSEA^Disp: 30 tablet^Rfl: 2 diphenoxylate-atropine (LOMOTIL) 2.5-0.025 mg per tablet^Take 1 tablet by mouth four times daily as needed for up to 30 days.^Disp: 60 tablet^Rfl: 0 LUPRON DEPOT 3.75 mg injection^Inject 3.75 mg intramuscularly once every month. Once a month during chemotherapy^Disp: ^Rfl: Allergies: ALLERGIES No Known Allergies REVIEW OF SYSTEMS Denies pain, fever or chills All other reviewed and negative other than HPI. PHYSICAL EXAM: GEN: Well appearing, alert, in no acute distress, well-hydrated, well nourished. CHEST: Regular RR, no cough or dyspnea BREAST: bilateral breast soft, non-tender, with no evidence of exudate bilateral breast incision well approximated, c/d/i No seroma, no hematoma No s/s of infection Excellent symmetry Mild rippling deformity incisions healing well A/P: Post op Stephen Self is a 32 y/o female s/p bilateral breast reconstruction with direct to implant placement. Expected post op course. Return to clinic in 3 months. This visit lasted for more than 30 minutes and greater than 50% of the visit was involved in the discussion of the options for treatment. The patient is seen and examined by Dr. García and the following reflects his/her service. Scribed by Cira Valero RN . The patient is seen and examined by Dr. García and the following reflects his/her service. Scribed by Kimmy Ascencio. Provider Attestation: I, Bradford Garíca MD, personally performed the services described in this documentation. All medical record entries made by the scribe were at my direction and in my presence. I have reviewed the chart and discharge instructions (if applicable) and agree that the record reflects my personal performance and is accurate and complete. Dr. Bradford García MD June 16, 2022 3:53 PM documented in this encounter [facility] 06-16-2022 Nurse Note Follow up Did patient bring outside records to appt today? : No Last mammogram on: 10/04/21 bilateral Results: see report Is the patient active on [employer] Yes Electronically Signed By: Valentina Mars LPN In Department: GENERAL SURGERY REVIEW OF PATIENT HISTORY: OB History T0 L0 SAB0 IAB0 Ectopic0 Multiple0 Live Births0 Comment: Menarche: 17; Age at 1st : n/a; Premenopausal FAMILY HISTORY Problem Relation Age of Onset Heart Maternal Grandmother triple by pass Breast Cancer Maternal Grandmother Coronary Artery Disease Paternal Grandfather Diabetes Paternal Grandfather other (DC) Paternal Grandfather age 45 Breast Cancer Other Maternal Great Aunt x2 PAST MEDICAL HISTORY Diagnosis Date Abnormal Pap smear of cervix Anal fissure Anemia with crohns Cancer (HCC) breast cancer Crohn's disease (HCC) 07/09/2013 Hypoglycemia Malignant neoplasm of left breast (HCC) 09/2021 PMH - PAST MEDICAL HISTORY OF 04/08/2004 Normal color vision PMH - PAST MEDICAL HISTORY OF 12/23/2001 Pneumonia PAST SURGICAL HISTORY Procedure Laterality Date COLONOSCOPY 07/09/2013 EXTRACTION ERUPTED TOOTH/EXR age 17 PAST SURGICAL HISTORY OF 07/09/2006 Cyst removal in right wrist TONSILLECTOMY PRIMARY/SECONDARY AGE 13/> 10/07/2008 US BREAST NEEDLE CORE BIOPSY LT Left 09/2021 Social History Tobacco Use Smoking status: Never Smokeless tobacco: Never Vaping Use Vaping Use: Never used Substance Use Topics Alcohol use: Not Currently Comment: Occasionally Drug use: No documented in this encounter [facility] 06-15-2022 History of Present illness Narrative CRVS 1Y21 IRB: 22-840 Real World Treatment Experience of Patients with Breast, Lung, or GI Cancer or Multiple Myeloma Using Remote Symptom Monitoring Informed Consent signed on: June STUDY ID #: [id number] Week: (Baseline)/ Severity: Severe SA-CTC: Almost Constant Muscle Pain PDF saved to [employer] Alert was managed by: SHRUTHI Fermin Did patient request a call back: No Was study physician consulted / notified: No - these are symptoms the doctors were already aware of and not new Bank Teller Machine Mechanic: Rebekah Fermin RN The patient knows to follow provider's treatment plan and to continue to complete the weekly electronic surveys, to be sent for minimum of 12 weeks. Patient understands to call the office sooner if needed and has my contact information for any additional questions regarding the study. Rebekah Fermin RN documented in this encounter [facility] 06-14-2022 Miscellaneous Notes CYCLE 1/DAY 1 POST TREATMENT CALL Today's date: June 14, 2022 Treatment Regimen: Kadcyla C1D1 Date: 06/13/2022 Called patient to follow-up on symptom management. Spoke with patient SYMPTOM ASSESSMENT Neuro: Headache: mild & dull, hasn't taken anything. CV/Resp: None GI/: Nausea: yes, mild Appetite: good Fluids: water, 12 ounces. Integument: None Activity: Patient reported no changes in energy level, energy level good Pain: No=0 (pain 0 on a scale of 0-10). Fever: No Chills: No Any new referrals needed? No Reinforced CURRENT treatment education based on current and anticipated symptoms. Discussed port/line care and patient verbalizes understanding: Yes Patient instructed to contact office or after hours Hematology/Oncology fellow for: temperature ? 100.4; questions or concerns. Patient verbalized understanding of when to seek medical attention and after hours number protocol. Krissy Beckham RN documented in this encounter [facility] 06-13-2022 History of Present illness Narrative . documented in this encounter [facility] 06-13-2022 Miscellaneous Notes Spoke with patient and she will arrive around 11 am Message left for patient to contact office JANA. When patient returns call, please inform her she will need to be here by 11:00 AM for treatment. Document and close once confirmed with patient. PSS - Stephen is starting Kadcyla today, which is an 1.5 hr infusion with 1.5 hr observation time and requires labs (>1hr) prior - please call and advise patient that she needs to be here no later than 11am. Thank you. documented in this encounter [facility] 06-12-2022 Miscellaneous Notes Please disregard. Patient stopped at desk after labs/CT scan and wanted to know if appt on can be changed to a phone call. Stated he does not want to drive 60 some miles. Please advise. documented in this encounter [facility] 06-12-2022 Miscellaneous Notes Spoke with patient, schedule updated. Patient called requesting to have her appointments on 07/07/22 be rescheduled due to having to go out of town. Please contact patient to reschedule and adjust following appointments if necessary. Thank you. documented in this encounter [facility] 06-09-2022 History of Present illness Narrative Clinical Trial Informed Consent & Screening CRVS 1Y21 IRB: 22-840 Real World Treatment Experience of Patients with Breast, Lung, or GI Cancer or Multiple Myeloma Using Remote Symptom Monitoring Patient seen today to obtain clinical trial informed consent. Patient states she has read the consent. The patient meets study criteria as discussed with Dr. Chantal Ayers D.O. . All study related questions have been addressed or answered at this time. Contact information for research team was provided within the consent. Consent willingly signed by patient and approved study team physician on June at 12:15 pm. Patient given copy of signed informed consent. Enrollment in this study does NOT alter treatment plans. Informed Consent signed on: June STUDY ID #: [id number] Met with Patient today. Patient has consented to the above mentioned study and screening documentation is provided below. All of the patient's questions were answered. Subject is 18 years of age or older Yes Subject understands Austrian Yes Subject may be any stage and anywhere in the treatment continuum Yes Subject must have a diagnosis of a breast, lung, GI or ovarian cancer or multiple myeloma Yes Disease PRG: Breast Subject must be able to complete on-line surveys using a cell phone, tablet, or computer Yes Patient meets all Criteria for Study Participation: Yes Study includes the following: Electronic Survey via subject's personal device Bilingual Teacher Assistant(s): Kieran Segovia MD [facility] [address] [place] [address] [email or web address] Bank Teller Machine Mechanic: Angie Galeano Lead Pager: [email or web address] For Gabriela: Rebekah Fermin RN The patient knows to follow provider's treatment plan and to complete the baseline survey within 5-days of receipt. Weekly electronic surveys to be sent for minimum of 12 weeks. Patient understands to call the office sooner if needed and has my contact information for any additional questions regarding the study. Rebekah Fermin RN 12:24 PM June 09, 2022 documented in this encounter [facility] 06-09-2022 Nurse Note Lupron injection administered, right buttock,tolerated well, no immediate adverse reactions noted. Em Duff LPN documented in this encounter [facility] 06-08-2022 History of Present illness Narrative Episode Visit Count: 1 Start of Care Date: 06/08/22 Onset Date: 04/17/22 Plan of Care Certification Date: 06/08/22 Patient Identified by Name and Date of : Yes REHABILITATION AND SPORTS THERAPY PHYSICAL THERAPY EVALUATION PLAN OF CARE: Assessment: Stephen Self presents with chief complaint of tightness in left shoulder s/p double mastectomy in April. Pt is still on chemotherapy but it is a less severe drug than prior to surgery. that interferes with lifting;physical activities;recreational activities;reaching overhead;reaching behind back;use hand with arm at shoulder level . She presents with impairments in flexibility, joint mobility, range of motion, and strength . PROMIS (Patient-Reported Outcomes Measurement Information System) scores were reviewed and all domains identified as within normal limits. Prognosis for therapy is Excellent due to: current objective clinical presentation;good overall health status;acuteness of condition;positive past response to therapy;within-session changes;good support system/ coping skills . \She will benefit from skilled therapy services to meet the goals established for this plan of care as noted below. Goals for Episode of Care: created on 06/08/22 through 07/23/22 Louann in home exercise program. Patient will decrease pain rating by 2 points to meet minimal clinical important difference for numeric pain rating scale. Patient will increase active ROM of left shoulder to >150 degrees for abduction and flexion to allow pt to to improve performance of ADLs. Patient will increase flexibility of left shoulder assessory musculature and RTC to equal unaffected extremity/side and WNL to improve mechanics. Perform raising arm overhead and supine pec stretch with hands behind shoulder without pain. Increased strength of left shoulder flexion and abduction to 5/5 for lifting groceries Improve flexibility of scar massage and sensation in arm pit for increased flexibility Patient Goals: to increase ROM and decrease pain Planned Interventions, Frequency, and Duration: Current Frequency: (1-2 times /week) Duration: 6 weeks Total Number of Visits Planned: 12 Planned Treatment Interventions: Therapeutic exercise (20802);Neuromuscular re-education (05950);Manual therapy (70897);Therapeutic activities (29183);Self-halfway management (94969);Patient/Family/Caregiver Education;Body Mechanics Training;Functional training;General Conditioning PLAN FOR NEXT VISIT: progress flexibility of shoulder accessory muculalature and RTC, add strengthening once full range is pain free for left shoulder Patient demonstrates good understanding of plan of care and treatment. The above goals and plan of care were discussed and agreed upon by patient/family. SUBJECTIVE: Stephen Self is a 32 year old female seen today for left shoulder decreased AROM and pain. Done with heavy chemo, has 1 x every 3 weeks for 14 treatments. Patient Goals: to increase ROM and decrease pain Functional Limitations: lifting;physical activities;recreational activities;reaching overhead;reaching behind back;use hand with arm at shoulder level Prior Level of Function: Independent without limitations Relevant History Right or Left Handed: Right Employment: (from chemo) Recreation / Current Exercise: walking Home Environment Patient Lives With: Spouse Assistance Available: PRN (spouse works) Intake Information: Prescription present Falls Interview: No positive findings with falls interview Pain: Pain Pain Level: 3 Pain Location: Shoulder - Left Description: Aching Frequency: Continuous Post Treatment Pain Post Treatment Pain Level: Better PROMIS Scales Higher is Better 05/18/2022 GH Physical - Score 42.3 (Good) GH Physical - Percentile 22 % GH Mental - Score 45.8 (Good) GH Mental - Percentile 34 % T-scores: mean of general population = 50. 5 points is clinically meaningfully difference Percentiles provide an indication of how the patient's score ranks in relation to the general population. Higher percentile rankings indicate better function/quality of life. 50th percentile is the average of the general population and indicates half of respondents had a worse score. T-scores: mean of general population = 50. 5 points is clinically meaningfully difference Percentiles provide an indication of how the patient's score ranks in relation to the general population. Higher percentile rankings indicate better function/quality of life. 50th percentile is the average of the general population and indicates half of respondents had a worse score. OBJECTIVE MEASURES WITH LEVEL OF FUNCTION: Shoulder Observations L Shoulder Presents with: (tightness in serratus anterior, pectorialis major) Cervical Spine ROM Cervical ROM : (WFL) UE AROM L Shoulder Flex: 143 Degrees L Shoulder ABduction: 105 Degrees L Shoulder Internal Rotation (Functional): (equal to right) L Shoulder External Rotation (Functional): to back of head, feels tightness in pecs UE Flexibility Flexibility: Pectoral Muscles;Teres Major (serratus anterior is very tight with palpation and manual work) R Pectorals Comments: WFl L Pectorals Comments: unable to perform pectoral stretch while supine with hands behind head without increased pain for stregtching R Teres Major Flexibility Comments: WFL L Teres Major Flexibility Comments: tightness reported with flexion and abduction UE and Cervical Strength R UE Strength: 5/5 L UE Strength: grossly 4/5 throughout Education: Education Learning Preferences: Demonstration;Explanation;Perform ance;Printed Materials Barriers: None Learning/educational needs: Plan of Care;Posture;Home exercise program Education Provided: Yes, see treatment interventions for education provided Education Provided To: Patient Education Mode/Type: Demonstration;Explanation/Discuss ion;Performance Response to Education/Teach Back: States/Identifies;Return Demonstration TREATMENT: PT Treatment Interventions: Therapeutic Exercise;Manual Therapy Evaluation Evaluation Therapeutic Exercise: 1: pulleys 2: doorway stretch Skilled Intervention: Patient was educated in proper exercise technique and purpose for exercises. Skilled judgment was provided in selection of appropriate interventions. Correct performance of therapeutic exercises was facilitated with verbal and visual cuing. Manual Therapy: 1: sternum massage with education for pt 2: education about scar massage 3: lymph/armpit massage with education about how to perform for HEP 4: serratus anterior, pec major tendon, teres major/minor tendon STM while pt is supine 5: PROM for left shoulder for abduction and flexion Skilled Intervention: Manual skills to improve joint mobility, ROM, and decrease pain. Utilized anatomy knowledge of the therapist, and assessment of patient's response to intervention. Billing * Evaluation Low Complexity: 1 Unit Therapeutic Exercise Treatment Minutes: 10 Manual TherapyTreatment Minutes: 15 Total Treatment Time Minutes (timed/untimed): 45 Valentina Khan PT, DPT documented in this encounter [facility] 06-05-2022 Miscellaneous Notes Spoke with patient. Patient had questions regarding labs. Patient aware this nurse will speak to Dr. Ayers this week and will call back if there are concerns regarding CMP. Patient aware we will recheck CMP next week. Krissy Beckham RN Spoke with patient and rescheduled. Balance of schedule adjusted. Paulina Chang Her ANC and Hgb are better (were much lower last time from Covid). ANC still too low to start Kadcyla tomorrow, so will have to delay another week. Labs/Straight back for that. Chantal Ayers DO Patient is aware of all information. PSS- please reach out to schedule as directed. Alta Beckford LPN Patient is requesting a call back in regards to lab results please advise the patient documented in this encounter [facility] 06-05-2022 Miscellaneous Notes See other phone note. Alta Beckford LPN Her ANC and Hgb are better (were much lower last time from Covid). ANC still too low to start Kadcyla tomorrow, so will have to delay another week. Labs/Straight back for that. Chantal Ayers DO documented in this encounter [facility] 06-05-2022 History of Present illness Narrative Patient is here for IVAD port flush/blood draw per Nursing [place] protocol. IVAD is located in right upper chest. Site cleansed with Chloraprep IVAD accessed with a #20 gauge 3/4 non-coring Gripper needle Flush with 5cc's Normal Saline. Blood Return: Good. 10 cc's blood aspirated and discarded. Blood drawn for CBC, CMP, and MAG. Flushed with: 20 ml Normal Saline and 5 ml Heparin Lock Flush. Non-coring needle removed. Paper tape applied to puncture site. Site negative for redness, edema or tenderness. Patient tolerated procedure well. documented in this encounter [facility] 05-24-2022 Miscellaneous Notes Patient is aware of all information including new appointment dates and times. Alta Beckford LPN Adjusted pt's schedule. However the first available I was able to schedule her start is 06/06 due to being so full. Please advise if this is ok before I reach out to the pt. Thank you!! Loraine Macario Pt returned call. She is ready to schedule. Left message for pt to call office regarding Dr Atkins message below. Please schedule as directed. Tiffany Mckinney LPN Can let her know the she does not qualify for the clinical trial discussed at yesterday's OV so will proceed with Kadcyla here. However, her ANC is low presumably from recent Covid infection. Delay start of Kadcyla a week. Recheck CBC the day prior to start. Chantal Ayers DO documented in this encounter [facility] 05-22-2022 History of Present illness Narrative Oncologic problem(s): 1) HER2 positive breast cancer. HPI: The patient is a 32-year-old female with a past medical history significant for Crohn's disease (dx 2014), vitiligo and dysmenorrhea. She self discovered a mass in the left breast. She underwent a bilateral diagnostic mammogram on 10/04/2021. The breasts were noted to be extremely dense lowering the sensitivity of the mammography. The palpable abnormality however corresponded to a 1.2 x 1.4 cm spiculated nodule in the deep lateral axillary region of the breast. Microcalcifications were identified within it. Patient underwent ultrasound of the breast on the same day. In the left breast corresponding to the palpable abnormality there was a 1.3 x 1.3 x 1.1 heterogeneous hypoechoic solid mass with microcalcifications at the 1 o'clock position of the breast 8 cm from the nipple. Increased vascularity was observed. Patient was referred to Dr. Farrar. She underwent a left core needle biopsy on 10/07/2021. 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 VA variable 10 to 50%, moderate intensity. HER-2/chaz 3+ IHC. Regular menses. OCPs starting age 17. Stopped age 30 to try to get . Stopped trying to get because had flare of Crohn's. Generalized itching all over--started last April. Triggered by heat (showever). Injured coccyx snowboarding in high school. Hurting more lately. Crohn's under control with anti-inflammatory diet. She underwent MRI of the breast on 10/20/2021. In the left breast in the upper outer quadrant there was an irregular mass with internal biopsy clip artifact representing biopsy-proven invasive carcinoma. There was an adjacent clumped nonmass enhancement that correlated to the adjacent suspicious focal asymmetry/architectural distortion with calcifications on the 10/04/2021 mammogram. Overall area of contiguous involvement in the upper outer quadrant (mass with adjacent non-mass enhancement) measured up to 2.7 cm in greatest dimension. He was noted that on a postbiopsy diagnostic mammogram that was available for comparison there was a possible group of indeterminate appearing calcifications in the upper outer quadrant posterior depth for which magnification views were recommended. Two additional abnormalities were identified in the breast--There is an additional irregular 0.5 x 0.4 x 0.4 cm (transverse by AP by cc dimensions) in the left upper-outer quadrant (series 7 image 75) which demonstrates heterogeneous enhancement with prominent central washout kinetics concerning for an additional site of involvement. There is an additional 0.4 x 0.4 x 0.4 cm mass upper CENTRAL breast (series 7 image 76) which also demonstrates heterogeneous enhancement with prominent central washout kinetics concerning for an additional site of involvement. LYMPH NODES: There are no suspicious axillary or internal mammary lymph nodes in either breast. RIGHT BREAST: There is no suspicious mass or area of non-mass enhancement identified within limitation of marked background parenchymal enhancement. Underwent MRI guided biopsy with clip placement 11/01/2021. Pathology: A. Breast, left, upper outer aspect, calcifications, Twirl clip, stereotactic core biopsy: --Atypical ductal hyperplasia (ADH). --Microcalcifications are present in ducts adjacent to ADH. --Please see comment. B. Breast, left, at 10:00, 3 cm from the nipple, Q clip, ultrasound-guided core biopsy: --Fibroadenoma. Second MRI breast biopsy 11/10/2021 Pathology: A. 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 Port was placed. Previous therapy: 1) TCH-P. Pleated cycle #6 on 03/14/2022. 2) Herceptin x1 dose pre-operatively 04/07/2022. 3) Underwent left nipple sparing mastectomy, left sentinel lymph node mapping and biopsy, right prophylactic nipple sparing mastectomy along with right breast reconstruction direct to implant with total acellular dermal matrix coverage and left breast reconstruction direct to implant with total acellular dermal matrix coverage on 04/17/2022. Pathology: Tumor bed: The tumor bed measures 40 x 40 mm in size, and shows variable cellularity with an average of 22% viable cells; of these viable cells 96.5% are ductal carcinoma in situ and 3.5% are invasive carcinoma. The invasive carcinoma measures 16 mm in greatest dimension. Margins: Margin Status for Invasive Carcinoma:All margins negative for invasive carcinoma. Distance from Invasive Carcinoma to Closest Margin:1 mm Closest Margin(s) to Invasive Carcinoma: Superior Margin Status for DCIS:All margins negative for DCIS Distance from DCIS to Closest Margin:1.0 mm Closest Margin(s) to DCIS:Posterior Distance from DCIS to Superior Margin:1.5 mm A: Lymph nodes, left sentinel, x3 axillary, excision: - Four lymph nodes, negative for carcinoma (0/4). B: Breast, left, mastectomy: - Residual invasive ductal carcinoma, post neoadjuvant therapy, measuring 16 mm in greatest dimension. - Residual ductal carcinoma in situ, low and intermediate grades (nuclear grades 1 and 2) with comedonecrosis and microcalcifications. - Focal atypical ductal hyperplasia (ADH). - Margins are negative for carcinoma (distance to closest margin: 1 mm to superior margin). - Q clip, twirl clip, hourglass clip, and coil clip are identified. - Two intramammary lymph nodes, negative for carcinoma (0/2). - Biopsy site changes are present. - Fibroadenoma. - Background mammary parenchyma with fibroadenomatoid changes, fibrocystic changes, and microcalcifications. C: Breast, left, nipple, resection: - Mammary tissue, negative for carcinoma. D: Breast, right, mastectomy: - PENDING IHCs E: Breast, right, nipple, resection: - Benign mammary tissue. Presents for ongoing oncologic management. Interim history: Symptoms of fever, chills and body aches a week ago. Fever resolved and then had URI symptoms with mild cough Positive test for Covid. Congestion improving. Cough improved. No wheezing. No dyspnea. No chest pain or pressure. No sinus pain/pressure/tenderness. PMH, medications and allergies personally reviewed by me today. Any changes documented in appropriate section. ROS: Constitutional: Denies episodes of fever and night sweats. Not significantly fatigued. Normal appetite. Neuro: Denies RAE, vertigo, dizziness and imbalance. Resp: Denies cough, wheeze and hemoptysis. Denies shortness of breath at rest. Denies HILL. CVS: Denies exertional chest pain, PND, orthopnea and LE edema. GI: Denies dysgeusia. Denies symptoms of stomatitis. Denies dysphagia and odynophagia. : Denies dysuria or gross hematuria. No symptoms of bladder outlet obstruction. Endo: Denies hot flashes. Denies polyuria and polydipsia. Denies heat and cold intolerance. Musculoskeletal: Denies bone, back, joint and muscular pain. Derm: Denies rash. Denies jaundice and diffuse pruritis. Heme: Denies unusual bleeding and unexplained bruising. Psych: Normal mood. PHYSICAL EXAM: VITALS: Blood pressure 112/68, pulse 77, temperature 37.1 C (98.8 F), temperature source Temporal, weight 64.6 kg (142 lb 8 oz), last menstrual period 11/25/2021. Well-appearing and in no acute distress. EYES: Sclerae are anicteric bilaterally. LYMPHATIC: There is no palpable cervical, supraclavicular, axillary or inguinal adenopathy. RESPIRATORY: Inspiratory breath sounds are of normal intensity in all allen. CARDIOVASCULAR: Rhythm is regular. BREAST: Deferred today. Binder on with drains. ABDOMEN: The abdomen is nondistended. Extremities: No swelling or edema. SKIN: No jaundice or rash. No petechiae. ASSESSMENT/PLAN: (C50.412, Z17.0) Malignant neoplasm of upper-outer quadrant of left breast in female, estrogen receptor positive (HCC) (primary encounter diagnosis) Assessment: -cT2 cN0 M0 ER/VA positive, HER2 overexpressed clinical stage IIA infiltrating ductal carcinoma of the left breast. -Significant family history of breast cancer. Several family members who were tested were negative for deleterious gene mutation. -Patient's genetic testing through [facility] was negative (see scanned report 11/25/2021). -Had egg harvesting. She understands that she will require at a minimum 5 years of OS with AI therapy following surgery. -Tolerating Lupron well. -Tolerated TCHP well overall with no severe or unexpected toxicity except for fatigue and diarrhea. -She is recovering nicely from COVID infection. -Again discussed rationale for Kadcyla but also discussed potential eligibility for the HARLAN-Zfzjar12/NSABP B-60 trial. -Adjuvant radiation not recommended. -Reviewed tumor board recommendations. Plan: -Plan to begin Kadcyla on . -Double check on eligibility for the HARLAN-breast 05 trial. -Repeat echocardiogram in 3 months. -Continue monthly Lupron injection. -OS with AI therapy. Portions of this documentation were copied and pasted from previous office visit notes in order to provide a cohesive continuity of the history. The note has been reviewed and edited and updated as necessary. Chantal Ayers DO Cc: DO Paulina Adams DO documented in this encounter [facility] 05-18-2022 History of Present illness Narrative CC: post op This visit was conducted as a virtual visit. HPI: Stephen Self is a 32 year old female who presents s/p 04/17/22 bilateral breast reconstruction with direct to implant placement Time post op: 4 weeks Has a fever with congestion, took a covid test Sunday and was positive. Changed appt to virtual Pain is controlled Denies redness, swelling, drainage from incisions promethazine (PHENERGAN) 25 mg tablet^Take 1 tablet by mouth every 6 hours as needed. FOR NAUSEA^Disp: 30 tablet^Rfl: 2 acetaminophen (TYLENOL) 500 mg tablet^Take 2 tablets by mouth every 6 hours as needed for pain.^Disp: 20 tablet^Rfl: 0 cefADROxil (DURICEF) 500 mg capsule^Take 1 capsule by mouth twice daily.^Disp: 28 capsule^Rfl: 0 silver sulfADIAZINE (SILVADENE) 1 % cream^Apply to wounds twice a day^Disp: 50 g^Rfl: 3 dilTIAZem ointment 2% (CPD)^twice daily.^Disp: ^Rfl: (Patient not taking: Reported on 05/04/2022) diphenoxylate-atropine (LOMOTIL) 2.5-0.025 mg per tablet^Take 1 tablet by mouth four times daily as needed for up to 30 days.^Disp: 60 tablet^Rfl: 0 LUPRON DEPOT 3.75 mg injection^Inject 3.75 mg intramuscularly once every month. Once a month during chemotherapy^Disp: ^Rfl: Allergies: ALLERGIES No Known Allergies REVIEW OF SYSTEMS As above General: No chills, + fever last few days but subsided (r/t covid) Cardiac: No chest pain, or leg swelling Respiratory: No shortness of breath, ++congestion All other reviewed and negative other than HPI. PHYSICAL EXAM: Deferred today A/P: Post op As expected, healing well -No water submersion/baths until all incisions fully healed, typically this takes 6 weeks. -Walking is encouraged, this helps reduce swelling and lowers the chance of blood clots. -Activity restrictions reviewed with patient. -No lifting/pushing/pulling greater than 10 lbs for 6 weeks after surgery. Do not perform french translator such as laundry and vacuuming. Do not perform yard work or gardening. -Okay to sleep on your back and lie flat, do not sleep on the surgical side 3-4 weeks after recent procedure -Okay for tylenol alternating with ibuprofen for pain control (do not exceed 4 g tylenol in a 24 hour period, okay for ibuprofen 600-800 mg every 8 hours as needed for pain) -Consult to breast rehab placed. OK to start at 4 weeks post op. Please call [phone] to schedule, change, cancel or confirm an appointment. RTC 06/[address] Ricky, sooner if needed Virtual visit lasted for 7 minutes Krissy Spivey APRN.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 documented in this encounter [facility] 05-09-2022 Miscellaneous Notes Treatment rescheduled per pt request. 1st attempt: MC sent Rest of pt schedule adjusted. Thank you! Loraine Macario Pt moved her 06/02/22 appts [address] lab and Dr. Ayers to 06/08/22. Would like to move the 06/06/22 treatment to 06/09/22 if possible. documented in this encounter [facility] 05-09-2022 Nurse Note Lupron injection administered, left buttock, tolerated well, no immediate adverse reactions noted. Em Duff LPN documented in this encounter [facility] 05-05-2022 History of Present illness Narrative I saw her in December for cT2 cN0, invasive ductal carcinoma of the left breast undergoing neoadjuvant chemotherapy with TCHP. It's ER positive (>95%, strong), VA positive (variable, 10-50%) and Her2 3+. Since then she finished chemotherapy and then underwent surgery with left nipple sparing mastectomy, left sentinel lymph node mapping and biopsy, right prophylactic nipple sparing mastectomy followed by bilateral breast reconstruction direct to implant on 04/17/22. Pathology showed residual grade 2 invasive ductal carcinoma measuring 16 mm and grade 1 and 2 DCIS discontinuous foci spanning 40 mm with comedonecrosis and microcalcifications. Surgical margins were negative with the closest margin of <0.2 mm to the superior margin. Two intramammary lymph nodes, negative for carcinoma. And four left sentinel nodes were negative for metastasis. Right breast tissue was benign. She has pathologic stage IA, ypT1c, ypN0 (sn), grade 2 invasive ductal carcinoma treated with neoadjuvant chemotherapy with TCHP and then left nipple sparing mastectomy, left sentinel lymph node mapping and biopsy, right prophylactic nipple sparing mastectomy followed by bilateral breast reconstruction direct to implant on 04/17/22. Surgical margins were negative but close with the closest margin of <0.2 mm. I told her that post-mastectomy radiation treatment can be recommended to decrease risks of local recurrence. There are risks of second malignancy as she is younger than 35 year old, though. Her case will be presented at the tumor board tomorrow. I will follow-up with the recommendation. Addendum (05/05/22): Her case was discussed at the tumor board and post-mastectomy radiation was not recommended. I also discussed her case with radiation oncology breast subspecialist at the [facility] main ethel who didn't recommend post-mastectomy radiation treatment. I called her and notified her. I explained to her that although there are risks of local recurrence and radiation treatment will decrease that risks, it was thought that risks are low enough considering potential complications of radiation therapy. She will start Kadcyla under the care of Dr. Ayers. I answered all her questions. documented in this encounter [facility] 05-04-2022 Instructions Krissy Spivey APRN.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 - 05/04/2022 2:53 PM EDT -GERDA drain removed X 2, gauze applied. Okay to shower in 24 hours. Apply antibiotic ointment to drain sites and cover with band aid until they are healed. -Shower regularly to keep the incisions clean and inspect for signs of infection (due to decreased sensation). -No water submersion/baths until all incisions fully healed, typically this takes 6 weeks. -Walking is encouraged, this helps reduce swelling and lowers the chance of blood clots. -Activity restrictions reviewed with patient. Okay to raise arm above head at 2 weeks if drains have all been removed and you do not have any wound healing issues. -No lifting/pushing/pulling greater than 10 lbs for 6 weeks after surgery. Do not perform french translator such as laundry and vacuuming. Do not perform yard work or gardening. -Okay to sleep on your back and lie flat, do not sleep on the surgical side 3-4 weeks after recent procedure -Okay for tylenol alternating with ibuprofen for pain control (do not exceed 4 g tylenol in a 24 hour period, okay for ibuprofen 600-800 mg every 8 hours as needed for pain) -Okay for driving if not taking any narcotic pain medication and drains have been removed -continue silvadene ointment to incisions and cover with dry dressing until healed -Continue to wear surgical bra. -Consult to breast rehab placed. OK to start at 4 weeks post op. Please call [phone] to schedule, change, cancel or confirm an appointment. documented in this encounter [facility] 05-04-2022 History of Present illness Narrative CC: post op HPI: Stephen Self is a 32 year old female who presents s/p 04/17/22 bilateral breast reconstruction with direct to implant placement Time post op: 17 days Patient is doing well, has some pain but not enough to require pain medication, she rates it 5/10. It is more painful on the left side. She has bilateral GERDA drains in place, they have been putting out 15 cc or less the past several days. She denies fevers or chills. She will not need radiation. promethazine (PHENERGAN) 25 mg tablet^Take 1 tablet by mouth every 6 hours as needed. FOR NAUSEA^Disp: 30 tablet^Rfl: 2 acetaminophen (TYLENOL) 500 mg tablet^Take 2 tablets by mouth every 6 hours as needed for pain.^Disp: 20 tablet^Rfl: 0 silver sulfADIAZINE (SILVADENE) 1 % cream^Apply to wounds twice a day^Disp: 50 g^Rfl: 3 LUPRON DEPOT 3.75 mg injection^Inject 3.75 mg intramuscularly once every month. Once a month during chemotherapy^Disp: ^Rfl: cefADROxil (DURICEF) 500 mg capsule^Take 1 capsule by mouth twice daily.^Disp: 28 capsule^Rfl: 0 dilTIAZem ointment 2% (CPD)^twice daily.^Disp: ^Rfl: (Patient not taking: Reported on 05/04/2022) diphenoxylate-atropine (LOMOTIL) 2.5-0.025 mg per tablet^Take 1 tablet by mouth four times daily as needed for up to 30 days.^Disp: 60 tablet^Rfl: 0 Allergies: ALLERGIES No Known Allergies REVIEW OF SYSTEMS As above General: No fever, chills Cardiac: No chest pain, or leg swelling Respiratory: No cough or shortness of breath GI: No N/V or diarrhea All other reviewed and negative other than HPI. PHYSICAL EXAM: LMP 11/25/2021 GEN: Well appearing, alert, in no acute distress, well-hydrated, well nourished. CHEST: Regular RR, no cough or dyspnea BREAST: bilateral breast soft, non-tender, with no evidence of exudate bilateral breast incision well approximated, c/d/i No seroma, no hematoma Mild post operative swelling Mild post operative ecchymosis No s/s of infection GERDA drains SS drainage, patent A/P: Post op As expected, healing well -GERDA drain removed X 2, gauze applied. Okay to shower in 24 hours. Apply antibiotic ointment to drain sites and cover with band aid until they are healed. -Shower regularly to keep the incisions clean and inspect for signs of infection (due to decreased sensation). -No water submersion/baths until all incisions fully healed, typically this takes 6 weeks. -Walking is encouraged, this helps reduce swelling and lowers the chance of blood clots. -Activity restrictions reviewed with patient. Okay to raise arm above head at 2 weeks if drains have all been removed and you do not have any wound healing issues. -No lifting/pushing/pulling greater than 10 lbs for 6 weeks after surgery. Do not perform french translator such as laundry and vacuuming. Do not perform yard work or gardening. -Okay to sleep on your back and lie flat, do not sleep on the surgical side 3-4 weeks after recent procedure -Okay for tylenol alternating with ibuprofen for pain control (do not exceed 4 g tylenol in a 24 hour period, okay for ibuprofen 600-800 mg every 8 hours as needed for pain) -Okay for driving if not taking any narcotic pain medication and drains have been removed -continue silvadene ointment to incisions and cover with dry dressing until healed -Continue to wear surgical bra. -Consult to breast rehab placed. OK to start at 4 weeks post op. Please call [phone] to schedule, change, cancel or confirm an appointment. RTC 245p 05/18 follow up, sooner if needed Krissy Spivey APRN.KASH documented in this encounter [facility] 05-03-2022 Miscellaneous Notes Images from the original note were not included. Amber Miles PA-C You 31 minutes ago (3:32 PM) Thanks for getting her seen by Ra[facility]! I called patient to inform her that she is already scheduled with Dr. Melgar tomorrow. Patient states she meant to send this message to Amber Miles PA-C, as she said she received a call from Amber after her virtual visit last week regarding this. I will forward this on to Amber Miles PA-C. Alta Beckford LPN documented in this encounter [facility] 05-03-2022 Nurse Note Radiation Therapy - Nursing Note (Follow-up) PATIENT NAME: Stephen Self PATIENT May 03, 2022 [facility] FACILITY/LOCATION: [place] Reason for visit: Follow up to discuss treatment options. Subjective Data recent breast surgery with reconstruction Additional Data Do you want to see a Jammer Operator? No Nursing Assessment Fatigue: increased fatigue over baseline but not altering normal activities Appetite: good Weight Gain/Loss: No Last 6 Encounter Wt Readings: Date: Wt: 04/25/2022 67.8 kg (149 lb 8 oz) 04/11/2022 68 kg (150 lb) 04/07/2022 67.1 kg (148 lb) 03/29/2022 66.7 kg (147 lb) 03/24/2022 66.2 kg (146 lb) 03/23/2022 66.1 kg (145 lb 12.8 oz) Bowel Function: normal bowel movements Bone Pain: none Focused Assessment BREAST: Lymphedema Assessment: Is the patient noting any swelling? No. SIGNED by: Aracelis Brannon RN documented in this encounter [facility] 05-02-2022 Miscellaneous Notes The following approved medication requests have been transmitted electronically. Requested Prescriptions Signed Prescriptions Disp Refills promethazine (PHENERGAN) 25 mg tablet 30 tablet 2 Sig: Take 1 tablet by mouth every 6 hours as needed. FOR NAUSEA Authorizing Provider: CHANTAL AYERS DO Patient requesting a refill on promethazine. Patient requesting prescription be sent to [facility] in [place], order filed and pharmacy updated. Krissy Bechkam RN documented in this encounter [facility] 05-02-2022 Nurse Note ONCOLOGY PATIENT EDUCATION NOTE TOPIC: Chemotherapy, Medications: Kadcyla READINESS TO LEARN: COGNITIVE ABILITY: Alert and oriented MOTIVATION TO LEARN: Interested FAMILY SUPPORT: High - Very involved in pt care INSTRUCTION PROVIDED TO: Patient INSTRUCTION PROVIDED BY: Nurse Coordinator PATIENT LEARNS BEST BY: Multiple Methods FACTORS AFFECTING LEARNING: None PHYSICAL LIMITATIONS AFFECTING LEARNING: None LEARNING RESPONSE DIAGNOSIS: Breast Cancer METHOD OF INSTRUCTION: Individual instruction Written instruction - handouts Verbal instruction PATIENT/FAMILY RESPONSE: Verbalizes understanding of: CHEMOTHERAPY-Regimen, toxicity and side effects FOLLOW UP PLAN: Patient instructed to call with any further issues Recommend - Recommend continued instruction and follow up as directed Follow up phone call. Contact information given. SUPPLEMENTAL MATERIAL: Written material was provided at this visit with the following information: - Chemotherapy education was provided by a pharmacist NO - Side effect management information was provided/discussed including but not limited to: abdominal discomfort, anemia, appetite changes, arthralgia, bowel habit changes, diet, electrolyte disturbances, fatigue, infection, mouth hygiene, myalgia, nausea/vomitting, neutropenia, rash, shortness of breath, skin changes, taste changes, thrombocytopenia YES - Provided important phone numbers and contacts during and after hours. YES - Provided information on symptoms that require immediate assistance. YES - Provided Chemotherapy when to call handouts YES - Preventing infection. YES - Treatment schedule and confirmation of appointment times. YES - Available support groups. YES - The importance of contraception during the course of chemotherapy YES - Neutropenic fever protocol discussed with patient, which included the importance of reporting any fever of 100.4F (38.0C) or greater to the healthcare team as noted on the provided wallet card and/or magnet. YES Time Spent: 25 minutes REFERRAL (RECOMMENDATION): Social Work Krissy Beckham RN documented in this encounter [facility] 04-27-2022 Instructions Krissy Spivey APRN.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 - 04/27/2022 2:02 PM EDT -GERDA drain removed X 2, gauze applied. Okay to shower in 24 hours. Apply antibiotic ointment to drain sites and cover with band aid until they are healed. -Shower regularly to keep the incisions clean and inspect for signs of infection (due to decreased sensation). -No water submersion/baths until all incisions fully healed, typically this takes 6 weeks. -Walking is encouraged, this helps reduce swelling and lowers the chance of blood clots. -Activity restrictions reviewed with patient. Okay to raise arm above head at 2 weeks if drains have all been removed and you do not have any wound healing issues. -No lifting/pushing/pulling greater than 10 lbs for 6 weeks after surgery. Do not perform french translator such as laundry and vacuuming. Do not perform yard work or gardening. -Okay to sleep on your back and lie flat, do not sleep on the surgical side 3-4 weeks after recent procedure -Okay for tylenol alternating with ibuprofen for pain control (do not exceed 4 g tylenol in a 24 hour period, okay for ibuprofen 600-800 mg every 8 hours as needed for pain) -Okay for driving if not taking any narcotic pain medication and drains have been removed -continue silvadene ointment to incisions and cover with dry dressing until healed -Continue to wear surgical bra. -Consult to breast rehab placed. OK to start at 4 weeks post op. Please call [phone] to schedule, change, cancel or confirm an appointment. documented in this encounter [facility] 04-27-2022 History of Present illness Narrative CC: post op HPI: Stephen Self is a 32 year old female who presents s/p 04/17/22 bilateral breast reconstruction with direct to implant placement Time post op: 10 days Implant information: SRM Drains 2&3 are draining less acetaminophen (TYLENOL) 500 mg tablet^Take 2 tablets by mouth every 6 hours as needed for pain.^Disp: 20 tablet^Rfl: 0 cefADROxil (DURICEF) 500 mg capsule^Take 1 capsule by mouth twice daily.^Disp: 28 capsule^Rfl: 0 silver sulfADIAZINE (SILVADENE) 1 % cream^Apply to wounds twice a day^Disp: 50 g^Rfl: 3 dilTIAZem ointment 2% (CPD)^twice daily.^Disp: ^Rfl: diphenoxylate-atropine (LOMOTIL) 2.5-0.025 mg per tablet^Take 1 tablet by mouth four times daily as needed for up to 30 days.^Disp: 60 tablet^Rfl: 0 LUPRON DEPOT 3.75 mg injection^Inject 3.75 mg intramuscularly once every month. Once a month during chemotherapy^Disp: ^Rfl: promethazine (PHENERGAN) 25 mg tablet^Take 1 tablet by mouth every 6 hours as needed. FOR NAUSEA^Disp: 30 tablet^Rfl: 2 Allergies: ALLERGIES No Known Allergies REVIEW OF SYSTEMS As above General: No fever, chills Cardiac: No chest pain, or leg swelling Respiratory: No cough or shortness of breath GI: No N/V or diarrhea All other reviewed and negative other than HPI. PHYSICAL EXAM: Temp 37.1 C (98.7 F) (Temporal) LMP 11/25/2021 GEN: Well appearing, alert, in no acute distress, well-hydrated, well nourished. CHEST: Regular RR, no cough or dyspnea BREAST: bilateral breast soft, non-tender, with no evidence of exudate bilateral breast incision well approximated, c/d/i No seroma, no hematoma Mild post operative swelling Mild post operative ecchymosis No s/s of infection GERDA drains SS drainage, patent A/P: Post op As expected, healing well -GERDA drain removed X 2, gauze applied. Okay to shower in 24 hours. Apply antibiotic ointment to drain sites and cover with band aid until they are healed. -Shower regularly to keep the incisions clean and inspect for signs of infection (due to decreased sensation). -No water submersion/baths until all incisions fully healed, typically this takes 6 weeks. -Walking is encouraged, this helps reduce swelling and lowers the chance of blood clots. -Activity restrictions reviewed with patient. Okay to raise arm above head at 2 weeks if drains have all been removed and you do not have any wound healing issues. -No lifting/pushing/pulling greater than 10 lbs for 6 weeks after surgery. Do not perform french translator such as laundry and vacuuming. Do not perform yard work or gardening. -Okay to sleep on your back and lie flat, do not sleep on the surgical side 3-4 weeks after recent procedure -Okay for tylenol alternating with ibuprofen for pain control (do not exceed 4 g tylenol in a 24 hour period, okay for ibuprofen 600-800 mg every 8 hours as needed for pain) -Okay for driving if not taking any narcotic pain medication and drains have been removed -continue silvadene ointment to incisions and cover with dry dressing until healed -Continue to wear surgical bra. -Consult to breast rehab placed. OK to start at 4 weeks post op. Please call [phone] to schedule, change, cancel or confirm an appointment. RTC next week for drain removal Krissy Spivey APRN.KASH documented in this encounter [facility] 04-27-2022 Miscellaneous Notes Patient notified. Alta Beckford LPN Can let her know that the sales agent protective service told me her EKG was a normal variant. No cardiac issues. Chantal Ayers DO documented in this encounter [facility] 04-27-2022 Miscellaneous Notes SCHEDULED FOR 05/03 HEAVEN Reinoso documented in this encounter [facility] 04-26-2022 History of Present illness Narrative b documented in this encounter [facility] 04-26-2022 History of Present illness Narrative BREAST CANCER POST OPERATIVE FOLLOW-UP SERVICE DATE: 04/26/22 SURGERY DATE: 04/17/22 POSTOPERATIVE VISIT #1 VIRTUAL VISIT This visit was conducted as a virtual visit. The patient consented to the encounter via telephone. Providers present during the telephone medicine encounter was myself SUBJECTIVE: Stephen Self is a 32 year old year old female who is s/p a Left nipple sparing mastectomy, left sentinel lymph node mapping and biopsy, right prophylactic nipple sparing mastectomy performed by Dr. Null (Breast Surgeon) on 04/17/2022 Reconstruction portion of the surgery, placement of bilateral implants, was performed by Dr. García (Plastic Surgeon) She reports < 30ml of daily drainage output from the Drains for the past 2 days. She denies any redness, bruising, swelling or discharge from the incision. She denies any fever or chills. Pain of the surgical site is reported as minimal and intermittent.. Patient saw (Medical Oncologist) yesterday who recommended Kadycla treatments to begin on 05/16/2022, if Radiation was not indicated. OBJECTIVE: PHYSICAL EXAM: No Complaints. Deferred d/t video Seeing Plastic team She reports prolene suture remains in the skin at the previous cancer site which was placed at the time of the surgery. SURGICAL PATHOLOGY: PRELIMINARY Tumor bed: The tumor bed measures 40 x 40 mm in size, and shows variable cellularity with an average of 22% viable cells; of these viable cells 96.5% are ductal carcinoma in situ and 3.5% are invasive carcinoma. The invasive carcinoma measures 16 mm in greatest dimension. Margins: Margin Status for Invasive Carcinoma:All margins negative for invasive carcinoma Distance from Invasive Carcinoma to Closest Margin:1 mm Closest Margin(s) to Invasive Carcinoma: Superior Margin Status for DCIS:All margins negative for DCIS Distance from DCIS to Closest Margin:1.0 mm Closest Margin(s) to DCIS:Posterior Distance from DCIS to Superior Margin:1.5 mm The report: A: Lymph nodes, left sentinel, x3 axillary, excision: - Four lymph nodes, negative for carcinoma (0/4). B: Breast, left, mastectomy: - Residual invasive ductal carcinoma, post neoadjuvant therapy, measuring 16 mm in greatest dimension. - Residual ductal carcinoma in situ, low and intermediate grades (nuclear grades 1 and 2) with comedonecrosis and microcalcifications. - Focal atypical ductal hyperplasia (ADH). - Margins are negative for carcinoma (distance to closest margin: 1 mm to superior margin). - Q clip, twirl clip, hourglass clip, and coil clip are identified. - Two intramammary lymph nodes, negative for carcinoma (0/2). - Biopsy site changes are present. - Fibroadenoma. - Background mammary parenchyma with fibroadenomatoid changes, fibrocystic changes, and microcalcifications. C: Breast, left, nipple, resection: - Mammary tissue, negative for carcinoma. D: Breast, right, mastectomy: - PENDING IHCs E: Breast, right, nipple, resection: - Benign mammary tissue. ASSESSMENT: Stephen Self is a 32 year old year old female who is s/p a Left nipple sparing mastectomy, left sentinel lymph node mapping and biopsy, right prophylactic nipple sparing mastectomy performed by Dr. Null (Breast Surgeon) on 04/17/2022 Reconstruction portion of the surgery, placement of bilateral implants, was performed by Dr. García (Plastic Surgeon). Final pathology results of the RIGHT breast report is PENDING Final pathology results of the LEFT breast reports is PENDING PRELIMINARY reports residual breast invasive carcinoma, 1.6 cm (margins clear), 0/4 LN (0/2 intramammary nodes). POST OPERATIVE STATUS: Uncomplicated post-operative course, She initially presented 11/2021 with a LEFT breast 2.7 cm IDC, NG 2 with DCIS @ 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 MRI showed 2 satellite lesions. 2nd look performed and [address] appeared normal. ER+VA+HER2+ [id number] US showed a LEFT breast mass 0.6 cm x 0.7 cm x 0.4 cm at 10 o'clock posterior depth 3 cm from the nipple (correlated to MRI finding). Breast, left, at 10:00, 3 cm from the nipple, Q clip, ultrasound-guided core biopsy: Fibroadenoma. CONCORDANT LEFT stereotactic guided biopsy was performed for the concerning area of grouped calcifications located in the left breast upper outer aspect. This was described on the previous mammography report. Breast, left, upper outer aspect, calcifications, Twirl clip, stereotactic core biopsy: Atypical ductal hyperplasia (ADH), Microcalcifications are present in ducts adjacent to ADH. CONCORDANT LEFT MRI biopsy (of the 2nd lesion) was performed for the concerning enhancing mass located in the left breast upper inner aspect. Breast, left, Hourglass clip, MRI-guided core biopsy: Benign breast parenchyma with changes suggestive of a mammary hamartoma. DISCORDANT Underwent neoadjuvant chemotherapy, TCHP with Dr. Ayers, Finished 03/10/22 Genetic testing was negative Repeat imaging today shows a partial response PLAN Preliminary pathology report reviewed by (Breast Surgeon) and with the patient. Final pathology pending. Case to be presented to the Tumor Board for review and recommendations All questions were answered and she had no further concerns. Instructions for wound management, the signs and symptoms of infection, and seroma development were reviewed with the patient. will follow-up with Dr. Ayers (Medical Oncologist) as scheduled, 05/12/2022. She will consult with Dr. Melgar (Radiation Oncologist) as advised, to discuss possible adjuvant local therapy. She will follow-up with Dr. Bradford García (Plastic Surgeon) as scheduled tomorrow, for post-op management of breast reconstruction. Patient will schedule a consult with Suki Johns (O.T.) for lymphedema prevention strategies and education on range of motion management will follow-up with Dr. Null in 3 weeks to review the final pathology report and her follow up options. . She has our names and numbers to stay in touch if she has any questions, concerns or problems in the interim. Amber Miles PA-C documented in this encounter [facility] 04-25-2022 Miscellaneous Notes Spoke with patient and scheduled chemo ed. First 2 cycles of chemo scheduled and chemo start email sent. Paulina Chang Summary: PER AVS 04/25 OV/CBC/CMP/Mg to begin Kadcyla second week of May. OV/CBC/CMP/Mg every cycle. Continue monthly Lupron. PT NEEDS CHEMO START SCHEDULED documented in this encounter [facility] 04-25-2022 Miscellaneous Notes Met with patient after OV. Patient was given a folder with chemocare information, office contact information, thermometer, and additional chemotherapy resource papers. Patient aware this nurse will review on scheduled appointment date. Krissy Beckham RN documented in this encounter [facility] 04-25-2022 Miscellaneous Notes Keep OV today. The pathologist emailed the preliminary results via [employer]. hCantal Ayers DO Patient is scheduled for an OV today to discuss pathology from surgery and the plan moving forward. Surgical path from 04/17/22 is still pending. Please advise if patients OV should be cancelled. Thank you. Krissy Beckham RN documented in this encounter [facility] 04-17-2022 History of Present illness Narrative RADIOLOGY SERVICE PROGRESS NOTE SERVICE DATE: 04/17/2022 SERVICE TIME: 8:12 AM PATIENT IDENTITY VERIFICATION COMPLETED USING TWO (2) STANDARD IDENTIFIERS: Name and Date of confirmed by patient verbally FALL SCREENING: Has the patient had 2 falls in the last year or 1 fall with injury or currently using an Ambulatory Assistive Device (Walker, Cane, Wheelchair, Crutches, etc.)? No PATIENT GENDER DATA: .female : No ALLERGIES: Reviewed and unchanged MEDICATIONS REVIEWED: Not applicable PATIENT RELEVANT IMPLANT DATA REVIEWED: Not Applicable CREATININE: Creatinine Date Value Ref Range Status 03/29/2022 0.60 0.58 - 0.96 mg/dL Final 03/09/2022 0.61 0.58 - 0.96 mg/dL Final 02/16/2022 0.56 (L) 0.58 - 0.96 mg/dL Final Estimated Glomerular Filtration Rate Date Value Ref Range Status 03/29/2022 123 >=60 mL/min/1.73m Final Comment: Estimated Glomerular Filtration Rate (eGFR) is calculated using the 2020 CKD-EPI creatinine equation. This equation utilizes serum creatinine, sex, and age as parameters. The creatinine assay has traceable calibration to isotope dilution-mass spectrometry. Refer to KDIGO guidelines for clinical interpretation. In patients with unstable renal function, e.g. those with acute kidney injury, the eGFR may not accurately reflect actual GFR. P.O.C.T. RESULTS: N/A April 17, [address] PERFORMED: No IV SITE: NM only - not applicable, oral or physician administered agents given to patient POST EXAM PIV STATUS: Not applicable PROCEDURE TYPE: NM INJECT: NM Ewen Node Injection. 469.9 microcuries Tc99m SULFUR COLLOID . Lidocaine given prior to NM injection. ADMINISTRATION TIME: 8:[address] Jurado PATIENT DISCHARGED TO: Ambulatory patient, left NM department area. A Diagnostic radioactive procedure has taken place, with no further precautions necessary other than routine body substance precautions. More information regarding radiation safety can be found using this link: [email or web address] SIGNATURE: SANNA Valente PATIENT NAME: Stephen Self DATE: April 17, 2022 TIME: 8:12 AM PAGER/CONTACT #: documented in this encounter [facility] 04-11-2022 Nurse Note Lupron injection administered, right buttock,tolerated well, no immediate adverse reactions noted. Em Duff LPN documented in this encounter [facility] 03-29-2022 History of Present illness Narrative Oncologic problem(s): 1) HER2 positive breast cancer. HPI: The patient is a 32-year-old female with a past medical history significant for Crohn's disease (dx 2013), vitiligo and dysmenorrhea. She self discovered a mass in the left breast. She underwent a bilateral diagnostic mammogram on 10/04/2021. The breasts were noted to be extremely dense lowering the sensitivity of the mammography. The palpable abnormality however corresponded to a 1.2 x 1.4 cm spiculated nodule in the deep lateral axillary region of the breast. Microcalcifications were identified within it. Patient underwent ultrasound of the breast on the same day. In the left breast corresponding to the palpable abnormality there was a 1.3 x 1.3 x 1.1 heterogeneous hypoechoic solid mass with microcalcifications at the 1 o'clock position of the breast 8 cm from the nipple. Increased vascularity was observed. Patient was referred to Dr. Farrar. She underwent a left core needle biopsy on 10/07/2021. 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 VA variable 10 to 50%, moderate intensity. HER-2/chaz 3+ IHC. Regular menses. OCPs starting age 17. Stopped age 30 to try to get . Stopped trying to get because had flare of Crohn's. Generalized itching all over--started last April. Triggered by heat (showever). Injured coccyx snowboarding in high school. Hurting more lately. Crohn's under control with anti-inflammatory diet. She underwent MRI of the breast on 10/20/2021. In the left breast in the upper outer quadrant there was an irregular mass with internal biopsy clip artifact representing biopsy-proven invasive carcinoma. There was an adjacent clumped nonmass enhancement that correlated to the adjacent suspicious focal asymmetry/architectural distortion with calcifications on the 10/04/2021 mammogram. Overall area of contiguous involvement in the upper outer quadrant (mass with adjacent non-mass enhancement) measured up to 2.7 cm in greatest dimension. He was noted that on a postbiopsy diagnostic mammogram that was available for comparison there was a possible group of indeterminate appearing calcifications in the upper outer quadrant posterior depth for which magnification views were recommended. Two additional abnormalities were identified in the breast--There is an additional irregular 0.5 x 0.4 x 0.4 cm (transverse by AP by cc dimensions) in the left upper-outer quadrant (series 7 image 75) which demonstrates heterogeneous enhancement with prominent central washout kinetics concerning for an additional site of involvement. There is an additional 0.4 x 0.4 x 0.4 cm mass upper CENTRAL breast (series 7 image 76) which also demonstrates heterogeneous enhancement with prominent central washout kinetics concerning for an additional site of involvement. LYMPH NODES: There are no suspicious axillary or internal mammary lymph nodes in either breast. RIGHT BREAST: There is no suspicious mass or area of non-mass enhancement identified within limitation of marked background parenchymal enhancement. Current therapy: 1) TCH-P to begin this week. Presents for ongoing oncologic management. Interim history: Underwent MRI guided biopsy with clip placement 11/01/2021. Pathology: A. Breast, left, upper outer aspect, calcifications, Twirl clip, stereotactic core biopsy: --Atypical ductal hyperplasia (ADH). --Microcalcifications are present in ducts adjacent to ADH. --Please see comment. B. Breast, left, at 10:00, 3 cm from the nipple, Q clip, ultrasound-guided core biopsy: --Fibroadenoma. Second MRI breast biopsy 11/10/2021 Pathology: A. 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 Port was placed. Previous therapy: 1) TCH-P. Pleated cycle #6 on 03/14/2022. Current therapy: 1) Herceptin until surgery. Interim history: She is feeling better. Diarrhea is typically at its worst during the second week and it starting to subside now. She has no cardiac symptoms. No symptoms of neuropathy. PMH, medications and allergies personally reviewed by me today. Any changes documented in appropriate section. ROS: Constitutional: Denies episodes of fever and night sweats. Not significantly fatigued. Normal appetite. Neuro: Denies RAE, vertigo, dizziness and imbalance. Resp: Denies cough, wheeze and hemoptysis. Denies shortness of breath at rest. Denies HILL. CVS: Denies exertional chest pain, PND, orthopnea and LE edema. GI: Denies dysgeusia. Denies symptoms of stomatitis. Denies dysphagia and odynophagia. : Denies dysuria or gross hematuria. No symptoms of bladder outlet obstruction. Endo: Denies hot flashes. Denies polyuria and polydipsia. Denies heat and cold intolerance. Musculoskeletal: Denies bone, back, joint and muscular pain. Derm: Denies rash. Denies jaundice and diffuse pruritis. Heme: Denies unusual bleeding and unexplained bruising. Psych: Normal mood. PHYSICAL EXAM: VITALS: Blood pressure 106/71, pulse 100, temperature 37.2 C (98.9 F), weight 66.7 kg (147 lb), last menstrual period 11/25/2021, SpO2 99 %. Well-appearing and in no acute distress. Performance status 90% EYES: Sclerae are anicteric bilaterally. ENT: Oral mucosa is unremarkable. There is no sign of thrush or mucositis. NECK: Supple. No enlargement of thyroid. LYMPHATIC: There is no palpable cervical, supraclavicular, axillary or inguinal adenopathy. RESPIRATORY: Inspiratory breath sounds are of normal intensity in all allen. No rales, wheezes or rhonchi. Expiratory phase is normal. CARDIOVASCULAR: Rhythm is regular. Normal intensity S1/S2. There is no gallop or murmur. BREAST: ABDOMEN: The abdomen is nondistended. No organomegaly. No tenderness. Extremities: No swelling or edema. SKIN: No jaundice or rash. No petechiae. NEUROLOGIC: want ad receiver II-XII are grossly intact. No focal motor weakness. LABS: IMAGING: MRI breasts 03/07/2022: Bilateral background breast enhancement is mild. Fibroglandular pattern is heterogeneous fibroglandular densities. RIGHT BREAST: There is no suspicious mass, abnormal enhancement pattern, or other significant abnormality identified. LEFT BREAST: The previously noted left upper outer breast mass is now smaller with some residual enhancement measuring approximately 1.4 x 0.8 cm (series 6, image 106). No new areas of concern are noted. NODES: There is no axillary or internal mammary adenopathy. MISCELLANEOUS: No suspicious extramammary findings are seen. US L Breast 03/08/2022: No abnormalities were seen sonographically in the left axilla. There is a 0.8 x 0.7 and by 0.8 cm irregular mass with angular and spiculated margins in the left breast at 1:00 8 cmfn, with associated biopsy clip, at site of known carcinoma. This mass has size from prior exam dated 10/04/2021, which measured approximately 1.3 x 1.1 x 1.3 cm. ASSESSMENT/PLAN: (C50.412, Z17.0) Malignant neoplasm of upper-outer quadrant of left breast in female, estrogen receptor positive (HCC) (primary encounter diagnosis) Assessment: -cT2 cN0 M0 ER/VA positive, HER2 overexpressed stage IIA infiltrating ductal carcinoma of the left breast. -Significant family history of breast cancer. Several family members who were tested were negative for deleterious gene mutation. -Patient's genetic testing through [facility]'s--- -Had egg harvesting. She understands that she will require at a minimum 5 years of OS with AI therapy following surgery. -Tolerating Lupron during chemotherapy. -She is tolerating TCHP very well overall with no severe or unexpected toxicity except for fatigue and diarrhea. -Reviewed the results of the MRI and ultrasound which suggested response. Again discussed plan to either continue Herceptin postoperatively or changed to Kadcyla depending on pathologic response. Plan: -She is scheduled for bilateral mastectomy 04/17. -Radiation oncology opinion post op. -OV week of 04/24 -Continue with Herceptin only tomorrow. -Repeat echocardiogram. -Continue monthly Lupron injection. Portions of this documentation were copied and pasted from previous office visit notes in order to provide a cohesive continuity of the history. The note has been reviewed and edited and updated as necessary. Chantal Ayers DO Cc: DO Paulina Adams DO documented in this encounter [facility] 03-27-2022 Nurse Note AMBULATORY PATIENT EDUCATION NOTE TOPIC: LEFT mastectomy with SN bx and recon READINESS TO LEARN COGNITIVE ABILITY: Alert and oriented MOTIVATION TO LEARN: Interested FAMILY SUPPORT: Low - Inconsistent family involvement INSTRUCTION PROVIDED TO: Patient PATIENT LEARNS BEST BY: Multiple Methods FACTORS AFFECTING LEARNING: None PHYSICAL LIMITATIONS AFFECTING LEARNING: None LEARNING RESPONSE DIAGNOSIS: C50.412 METHOD OF INSTRUCTION: Individual instruction Written instruction - handouts Verbal instruction PATIENT / FAMILY RESPONSE: Verbalizes understanding of: DRAIN CARE- Correct procedure to perform drain care INFECTION MANAGEMENT-Signs and symptoms of an infection and importance of contacting the physician MEDICATION PRESCRIBED-Accurate knowledge of prescribed medication prior to discharge MEDICATION ROUTE-Correct route for administration of the prescribed medication MEDICATION SIDE EFFECTS-Side effects associated with the medication that warrant a call to the physician PAIN MANAGEMENT-Effective strategies to manage pain in addition to pain medication PHYSICAL RESTRICTIONS-Physical restrictions and recommendations after discharge from the hospital POST-OPERATIVE INSTRUCTIONS-Correct actions to take to reduce postoperative complications PRE-OPERATIVE INSTRUCTIONS-Correct action to take to follow pre-operative instructions PATIENT SAFETY PRINCIPLES SYMPTOM MANAGEMENT-Correct actions to take to manage symptoms associated with his/her disease/illness VTE prevention measures WORSENING CONDITION-Signs and symptoms of a worsening condition that warrant a call to the physician WOUND CARE-Correct procedure to perform wound care FOLLOW-UP PLAN: Patient instructed to call with any further issues SUPPLEMENTAL MATERIAL: Your Surgical Guide REFERRAL (RECOMMENDATION): None Electronically Signed By: Valentina Mars LPN In Department: [facility] Time spent on patient education: 15 minutes. documented in this encounter [facility] 03-24-2022 Instructions Sabina Cedeno APRN.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 - 03/24/2022 2:11 PM EDT PATIENT PREOPERATIVE INSTRUCTIONS Amber Miles PA-C has scheduled you for your procedure at this surgery center: [facility]: [phone] --[id number] [facility] [facility], [place] [address]. Please read below carefully for your personalized instructions. Dietary Restrictions: - No solid food after midnight. - You may have 12 ounces of clear liquids (water, clear juices such as apple juice or gatorade, carbonated beverages, clear tea, black coffee, jello) until 2 hours before scheduled arrival at facility. Medications: Unless instructed differently below, stay on all of your medications until your surgery. Approved medications to take the morning of surgery with a sip of water: NONE If you start any new medications after today's visit, please contact the surgeon's office. Blood Thinning Medications: - Stop NSAIDS (Ibuprofen, Advil, Aleve, Motrin, Celebrex, Mobic, etc.) 7 days before surgery, as directed by your surgeon. - Stop Aspirin 7 days before surgery, as directed by your surgeon. - Stop Vitamin E, ALL multi-vitamins, herbals and dietary supplements 7 days before surgery. - You may take Tylenol (Acetaminophen) or any of your pain medications that do not contain aspirin or NSAIDS as needed. Important Reminders: - If you use CPAP/BIPAP, bring the machine with you to the surgery center. - If you are prescribed inhalers for breathing, continue using them. - Candy, mints, and tobacco products are NOT permitted the morning of surgery. - Hearing aids, dentures and glasses may be worn the morning of surgery. - NO jewelry, body piercings, makeup, hairpins or contacts are to be worn the day of surgery. If you develop symptoms such as a fever, cold, or flu, or have other changes to your health within TWO DAYS of scheduled surgery or the morning of surgery, please contact the surgery center above. Personal Belongings: -Please have photo ID and insurance cards. -If you do not have a copy of advance directives on file with us, please bring a copy with you on the day of surgery. - Leave ALL valuables and money at home or with family members. For Outpatient Procedures: - YOU MUST HAVE A RESPONSIBLE ASSISTANT DIRECTOR OF RESIDENCE LIFE TAKE YOU HOME. A TOOL AND DIE SUPERVISOR OR CUSTOMER CONTACT SPECIALIST CANNOT BE MADE A RESPONSIBLE ASSISTANT DIRECTOR OF RESIDENCE LIFE. - We recommend that a responsible person stays with you overnight to take care of you. - You cannot stay in a hotel alone after outpatient surgery. You will not be permitted to have your surgery, if you do not have someone to take care of you. Arrival Time for Surgery: - The Surgery Center or hospital where you are having surgery will call the afternoon before surgery (or Sunday for Sunday surgery) with a scheduled arrival time. - If you have not heard by 4 pm, please contact the surgery center above. Please be aware that emergency situations arise, which may delay or change your surgical time. If this happens, we will notify you as soon as possible and regret any inconvenience. If you already have an Advance Directive, please fax a copy to [phone] or email to for it to be added to your chart. If you do not have an Advance Directive, you can find the appropriate form and more information at [email or web address]. We recommend that you complete the Advance Directive form found on the website and bring it with you the day of your surgery. It can be witnessed and scanned into your chart that day. Sabina Cedeno APRN.KASH documented in this encounter [facility] 03-24-2022 History and physical note HISTORY AND PHYSICAL EXAMINATION SERVICE DATE: 03/24/2022 SERVICE TIME: 1:59 PM PRIMARY CARE PHYSICIAN: Braden Torres, DO, DO REASON FOR VISIT: Stephen Self is a 32 year old female who is scheduled for Procedure(s): MASTECTOMY SIMPLE (Right) INTRAOPERATIVE ID OF SENTINEL LYMPH NODE(S) INCL'D INJECTION OF NON-RAD DYE WHEN PERFORMED (Right) BIOPSY NODE SENTINEL AXILLARY (Right) TISSUE NEWSPAPER DISTRIBUTOR SUPERVISOR PLACEMENT IN BREAST RECONSTRUCTION UNILATERAL (Right) INSERTION OF BREAST IMPLANT ON SAME DAY OF MASTECTOMY IMMEDIATE UNILATERAL (Right) IMPLANTATION OF BIOLOGIC IMPLANT FOR SOFT TISSUE REINFORCEMENT (Right) at the request of Dr. Amber Miles for consultation. My final recommendation will be communicated back to the requesting physician by way of shared medical record or letter. 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 CHIEF COMPLAINT: Pre-op exam HPI: BG is a 32 yo seen for PAC due to scheduled above surgery because of breast cancer. 03/17/2022 Dr. Chaka Self is a 32 year old year female who presented 11/2021 with a LEFT breast 2.7 cm IDC, NG 2 with DCIS @ 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 MRI showed 2 satellite lesions. 2nd look performed and [address] appeared normal. ER+VA+HER2+ [id number] US showed a LEFT breast mass 0.6 cm x 0.7 cm x 0.4 cm at 10 o'clock posterior depth 3 cm from the nipple (correlated to MRI finding). Breast, left, at 10:00, 3 cm from the nipple, Q clip, ultrasound-guided core biopsy: Fibroadenoma. CONCORDANT LEFT stereotactic guided biopsy was performed for the concerning area of grouped calcifications located in the left breast upper outer aspect. This was described on the previous mammography report. Breast, left, upper outer aspect, calcifications, Twirl clip, stereotactic core biopsy: Atypical ductal hyperplasia (ADH), Microcalcifications are present in ducts adjacent to ADH. CONCORDANT LEFT MRI biopsy (of the 2nd lesion) was performed for the concerning enhancing mass located in the left breast upper inner aspect. Breast, left, Hourglass clip, MRI-guided core biopsy: Benign breast parenchyma with changes suggestive of a mammary hamartoma. DISCORDANT All suspicious areas on imaging have been appropriately biopsied. Underwent neoadjuvant chemotherapy, TCHP with Dr. Ayers, Finished 03/10/22 Genetic testing was negative Presents today to discuss surgery. Had repeat MMG, US and MRI No hospitalizations or blood transfusions required during chemo REVIEW OF SYSTEMS: General: No weight loss, malaise or fevers. Neurological: No history of TIA's, stroke, MEDICAL INFORMATION SPECIALIST tumor, impaired sensorium, hemiplegia, paraplegia or quadraplegia. No neurological symptoms or problems. Respiratory: No history of current cough or dyspnea, or pneumonia in the past 6 weeks. No history of respiratory/pulmonary symptoms or problems. Cardiovascular: No history of HTN requiring medication, no history of angina, CHF, DC, cardiac surgery or stents. Denies rest pain, gangrene or revascularization/amputation for PVD. No history of cardiovascular symptoms or problems. GI: +anal fissue, rx as needed, following Dr. Dos Santos at [facility] Positive for: inflammatory bowel disease (Crohn's, no current tx, and currently asymptomatic, hx of following Dr. Early) Negative for: abdominal pain, colon cancer, dysphagia, GERD, hepatitis, irritable bowel syndrome, liver disease, nausea, pancreatitis, vomiting and ETOH >2 drinks/day. : No history of dysuria, frequency or incontinence, stones or chronic kidney disease. No difficulty urinating, nocturia > 1 time per night or hematuria. 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 Endocrine: No history of diabetes. Has not taken steroids within the past 30 days. No history of endocrinological symptoms or problems. Hematology: Positive for: anemia. Negative for: bruises/bleeds easily, transfusion of at least 4 units within 72 hours prior to surgery and chronic anti-coagulation/platelet meds. Oncology: See HPI. Positive for: chemo within 30 days (last tx 03/14/2022). Psych: No history of psychiatric symptoms or problems. Musculoskeletal: Negative for joint pain or swelling, back pain or muscle pain. Skin: Negative for lesions, rash and itching. PAST MEDICAL HISTORY Diagnosis Date Abnormal Pap smear of cervix Anal fissure Anemia with crohns Cancer (HCC) breast cancer Crohn's disease (HCC) 07/09/2013 Hypoglycemia Malignant neoplasm of left breast (HCC) 09/2021 PMH - PAST MEDICAL HISTORY OF 04/08/2004 Normal color vision PMH - PAST MEDICAL HISTORY OF 12/23/2001 Pneumonia PAST SURGICAL HISTORY Procedure Laterality Date COLONOSCOPY 07/09/2013 EXTRACTION ERUPTED TOOTH/EXR age 17 PAST SURGICAL HISTORY OF 07/09/2006 Cyst removal in right wrist TONSILLECTOMY PRIMARY/SECONDARY AGE 13/> 10/07/2008 US BREAST NEEDLE CORE BIOPSY LT Left 09/2021 FAMILY HISTORY Problem Relation Age of Onset Heart Maternal Grandmother triple by pass Breast Cancer Maternal Grandmother Coronary Artery Disease Paternal Grandfather Diabetes Paternal Grandfather other (DC) Paternal Grandfather age 45 Breast Cancer Other Maternal Great Aunt x2 Social History Tobacco Use Smoking status: Never Smokeless tobacco: Never Vaping Use Vaping Use: Never used Substance Use Topics Alcohol use: Not Currently Comment: Occasionally Drug use: No Prior to Admission medications as of 03/24/22 1347 Medication Sig Last Dose Taking dilTIAZem ointment 2% (CPD) twice daily. Taking Yes diphenoxylate-atropine (LOMOTIL) 2.5-0.025 mg per tablet Take 1 tablet by mouth four times daily as needed for up to 30 days. Yes LUPRON DEPOT 3.75 mg injection Inject 3.75 mg intramuscularly once every month. Once a month during chemotherapy Taking Yes promethazine (PHENERGAN) 25 mg tablet Take 1 tablet by mouth every 6 hours as needed. FOR NAUSEA Taking Yes No medication comments found. ALLERGIES No Known Allergies Objective PHYSICAL EXAM: General: alert and oriented (x3) and healthy appearance. Pertinent negatives noted - not distressed. Skin: normal color, no rash or lesions. HEENT: EOM intact and pupils equal round. Pertinent negatives noted - no carotid bruit. Cardiovascular: regular rate and rhythm, normal S1 and S2, no rub, murmurs, or gallop. Respiratory: normal breath sounds, no wheezes or crackles. No chest wall deformity or tenderness. Abdomen: soft. Pertinent negatives noted - not tender. Extremities: no deformity, no edema or tenderness, no joint swelling or clubbing. Neurological: normal cognition and motor skills. Gait normal. No weakness or sensory deficit. PAIN ASSESSMENT: VITALS: BP 98/70 Pulse 97 Temp (Src) 98.8 (Temporal) Resp 16 Ht 5' 8 (1.73m) Wt 146 lb (66.2kg) SpO2 98% LMP 11/25/2021 BMI 22.20 kg/(m^2). Diagnostic tests reviewed for today's visit: Lab Value Units Date High Low HB 9.9 g/dL 03/14/2022 15.5 11.5 HCT 30.7 % 03/14/2022 46.0 36.0 WBC 6.26 k/uL 03/14/2022 11.00 3.70 PLT 99 k/uL 03/14/2022 400 150 NA 140 mmol/L 03/09/2022 144 136 K 3.7 mmol/L 03/09/2022 5.1 3.7 GLUC 135 mg/dL 03/09/2022 99 74 BUN 10 mg/dL 03/09/2022 21 7 CREAT 0.61 mg/dL 03/09/2022 0.96 0.58 PTSEC No results within date range. INR No results within date range. APTT No results within date range. ALT 14 U/L 03/09/2022 38 7 AST 22 U/L 03/09/2022 35 13 TBILI 0.2 mg/dL 03/09/2022 1.3 0.2 TSH No results within date range. Lab Value Units Date High Low HCGQT No results within date range. UHCG No results within date range. HCG, BODY* No results within date range. Lab Value Units Date High Low ABORHD No results within date range. ABSCREEN No results within date range. No results found for: HBA1C No results found for this or any previous visit (from the past 8760 hour(s)). Recent Results (from the past 91465 hour(s)) ECHO Collection Time: 11/08/21 9:36 AM Impression CONCLUSIONS: - Technically difficult exam due to body habitus. - Exam indication: Baseline and serial evaluation in a patient undergoing therapy with cardiotoxic agents - The left ventricle is normal in size. Left ventricular systolic function is normal. EF = 70 5% (2D biplane) Normal left ventricular diastolic function. - The right ventricle is normal in size. Right ventricular systolic function is normal. - There are no significant valvular abnormalities. - The patient has not had a prior CC echocardiographic exam for comparison. * * * Final * * * Assessment HER2-positive carcinoma of left breast (HCC) Assessment: pending mastectomy, last chemo 03/14/2022, has pending labs due 03/29/2022 Crohn disease (HCC) Assessment: denies any current tx or surgical intervention, previously following Dr. Early 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 chemotherapy Assessment: CBC with diff: WBC 6.26 03/14/2022 RBC 3.30 03/14/2022 Hemoglobin 9.9 03/14/2022 Hematocrit 30.7 03/14/2022 MCV 93.0 03/14/2022 MCH 30.0 03/14/2022 MCHC 32.2 03/14/2022 RDW-CV 17.0 03/14/2022 Platelet Count 99 03/14/2022 MPV 10.3 03/14/2022 Neut% 61.0 03/14/2022 Lymph% 27.5 03/14/2022 [place]% 10.7 03/14/2022 Baso% 0.3 03/14/2022 Abs Neut (Segs + Bands) 3.82 03/14/2022 Abs [place] 0.67 03/14/2022 Abs Eosin <0.03 03/14/2022 Abs Baso <0.03 03/14/2022 Thrombocytopenia (HCC) Assessment: last chemo 03/14/2022, new labs pending 03/29/2022 Platelet Count Date Value Ref Range Status 03/14/2022 99 (L) 150 - 400 k/uL Final Anal fissure Assessment: on rx, following Dr. Dos Santos at [facility] [place] Activity Status Index: METS: Climb a flight of stairs or walk up a hill (5.50 METs) DASI Score: 5.5 Patient denies any chest pain or undue shortness of breath with the above physical activity. Clinical Frailty Scale: 3. Well, with treated comorbid disease STOP-Bang Score: Denies snoring loudly Denies feeling tired, fatigued, or sleepy during the daytime Has not been observed to stop breathing or choking/gasping during sleep Denies having high blood pressure BMI less than or equal to 35 kg/m^2 Patient 50 years old or younger Does not have a large neck Non-male patient STOP-Bang Score: 0 [id number] Score: Age: <65 Sex: female CHF history: No Hypertension history: No Stroke/TIA/thromboembolism history: No Vascular disease history: No Diabetes history: No [id number] Score: 1 ARISCAT Score: Age: <=50 Preoperative SpO2: >=96% Respiratory infection in the last month: No Preoperative anemia: No Surgical incision: peripheral Duration of surgery: <2 hrs Emergency procedure: No ARISCAT Score: 0 ASA Class: 2 ANESTHESIA FINDINGS: Intubation History: No history of difficult intubation Significant Anesthesia Considerations: none Airway History: No history of difficult airway I - PHYSICAL EVALUATION AIRWAYTracheostomy tube not present Mallampati: II. TM distance: >3 FB. Neck ROM: full ROM without neurological symptoms. Mouth opening: adequate. Short neck: no. Thick neck: no DENTAL Dental findings: teeth intact. II - ANESTHESIA PLAN ASA Score: 2 Anesthetic Plan: other Anesthetic plan additional comments: *PACC/TCI - anesthesia choice. Informed Consent Anesthetic risks, benefits, alternatives, personnel and consent discussed: yes. Patient / Responsible Constitution Party agrees to proceed: yes Patient / Surrogate agrees to blood products: blood products not planned Prepared for Surgery: optimally prepared for surgery, pending [see comment]. EKG, Labs due 03/29/2022 CONSULTS: Patient does not require consults for optimization at this time Planned Anesthetic: other anesthesia choice The Following Tests/Procedures Have Been Initiated: Orders Placed This Encounter dilTIAZem ointment 2% (CPD) Sig: twice daily. ECG COMPLETE Standing Status: Future Standing Expiration Date: 03/24/2023 Instructions Given to Patient: Instructions located in the after visit summary. Patient given verbal and written preop instructions and voices comprehension and compliance. SIGNATURE: Sabina Cedeno APRN.CNP PATIENT NAME: Stephen Self DATE: March 24, 2022 TIME: 1:59 PM PAGER/CONTACT #: documented in this encounter [facility] 03-23-2022 History of Present illness Narrative Subjective: Patient has a known history of an anal fissure was treated with Dibucaine ointment and has not had any successful resolution of this fissure. She currently presents today for reevaluation. Objective:Blood pressure 109/73, pulse 98, temperature 36.7 C (98 F), height 172.7 cm (5' 8), weight 66.1 kg (145 lb 12.8 oz), last menstrual period 11/25/2021, SpO2 100 %. Patient has a posterior midline fissure. There is no signs of abscess or cellulitis. Assessment: Anal fissure Plan: We will start her on diltiazem cream. She will come back in 2 to 3 weeks if this is unsuccessful and we will refer her to colorectal surgery for possible Botox injection versus surgical treatment. documented in this encounter [facility] 03-17-2022 Nurse Note Regroup Did patient bring outside records to appt today? : No Last mammogram on: 10/04/21 bilateral Results: see report Is the patient active on [employer] Yes Electronically Signed By: Valentina Mars LPN In Department: GENERAL SURGERY REVIEW OF PATIENT HISTORY: OB History T0 L0 SAB0 IAB0 Ectopic0 Multiple0 Live Births0 Comment: Menarche: 17; Age at 1st : n/a; Premenopausal FAMILY HISTORY Problem Relation Age of Onset Heart Maternal Grandmother triple by pass Breast Cancer Maternal Grandmother Coronary Artery Disease Paternal Grandfather Diabetes Paternal Grandfather other (DC) Paternal Grandfather age 45 Breast Cancer Other Maternal Great Aunt x2 PAST MEDICAL HISTORY Diagnosis Date Abnormal Pap smear of cervix Anemia with crohns Cancer (HCC) breast cancer Crohn's disease (HCC) 07/09/2013 Hypoglycemia Malignant neoplasm of left breast (HCC) 09/2021 PMH - PAST MEDICAL HISTORY OF 04/08/2004 Normal color vision PMH - PAST MEDICAL HISTORY OF 12/23/2001 Pneumonia PAST SURGICAL HISTORY Procedure Laterality Date COLONOSCOPY 07/09/2013 EXTRACTION ERUPTED TOOTH/EXR age 17 PAST SURGICAL HISTORY OF 07/09/2006 Cyst removal in right wrist TONSILLECTOMY PRIMARY/SECONDARY AGE 13/> 10/07/2008 BREAST NEEDLE CORE BIOPSY LT Left 09/2021 Social History Tobacco Use Smoking status: Never Smokeless tobacco: Never Vaping Use Vaping Use: Never used Substance Use Topics Alcohol use: Not Currently Comment: Occasionally Drug use: No documented in this encounter [facility] 03-17-2022 History of Present illness Narrative REASON FOR TODAY'S VISIT: Patient presents with: Established Patient: Keron Self is a 32 year old year female who presented 11/2021 with a LEFT breast 2.7 cm IDC, NG 2 with DCIS @ 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 MRI showed 2 satellite lesions. 2nd look performed and [address] appeared normal. ER+VA+HER2+ [id number] US showed a LEFT breast mass 0.6 cm x 0.7 cm x 0.4 cm at 10 o'clock posterior depth 3 cm from the nipple (correlated to MRI finding). Breast, left, at 10:00, 3 cm from the nipple, Q clip, ultrasound-guided core biopsy: Fibroadenoma. CONCORDANT LEFT stereotactic guided biopsy was performed for the concerning area of grouped calcifications located in the left breast upper outer aspect. This was described on the previous mammography report. Breast, left, upper outer aspect, calcifications, Twirl clip, stereotactic core biopsy: Atypical ductal hyperplasia (ADH), Microcalcifications are present in ducts adjacent to ADH. CONCORDANT LEFT MRI biopsy (of the 2nd lesion) was performed for the concerning enhancing mass located in the left breast upper inner aspect. Breast, left, Hourglass clip, MRI-guided core biopsy: Benign breast parenchyma with changes suggestive of a mammary hamartoma. DISCORDANT All suspicious areas on imaging have been appropriately biopsied. Underwent neoadjuvant chemotherapy, TCHP with Dr. Ayers, Finished 03/10/22 Genetic testing was negative Presents today to discuss surgery. Had repeat MMG, US and MRI No hospitalizations or blood transfusions required during chemo PAST MEDICAL HISTORY Diagnosis Date Abnormal Pap smear of cervix Anemia with crohns Cancer (HCC) breast cancer Crohn's disease (HCC) 07/09/2013 Hypoglycemia Malignant neoplasm of left breast (HCC) 09/2021 PMH - PAST MEDICAL HISTORY OF 04/08/2004 Normal color vision PMH - PAST MEDICAL HISTORY OF 12/23/2001 Pneumonia ALLERGIES ALLERGIES No Known Allergies Current Outpatient Medications Medication Sig Dispense Refill diphenoxylate-atropine (LOMOTIL) 2.5-0.025 mg per tablet Take 1 tablet by mouth four times daily as needed for up to 30 days. 60 tablet 0 ondansetron (ZOFRAN) 8 mg tablet Take 1 tablet by mouth every 8 hours as needed for nausea/vomiting. 30 tablet 2 LUPRON DEPOT 3.75 mg injection Inject 3.75 mg intramuscularly once every month. Once a month during chemotherapy dexAMETHasone (DECADRON) 4 mg tablet Take 1 tablet by mouth twice daily with meals. the day prior to and the day after each chemotherapy treatment. 24 tablet 0 promethazine (PHENERGAN) 25 mg tablet Take 1 tablet by mouth every 6 hours as needed. FOR NAUSEA 30 tablet 2 lidocaine-prilocaine (EMLA) 2.5-2.5 % cream Apply to port site 60 minutes prior to accessing 15 g 2 Ganirelix Acetate 250 mcg/0.5 mL Inject 0.5 mL subcutaneously once daily. (Patient not taking: Reported on 12/07/2021 ) 5 Each 0 chorionic gonadotropin (PREGNYL) 10,000 unit solr Mix with 1ml of diluent and inject [id number] units SQ once as directed for trigger (Patient not taking: Reported on 12/07/2021 ) 1 Each 0 Follitropin Beta (FOLLISTIM AQ) 900 unit/1.08 mL Inject 250 Units subcutaneously once daily. (Patient not taking: Reported on 12/07/2021 ) 3 Each 0 leuprolide (LUPRON) 1 mg/0.2 mL Inject 4 mg Subcutaneously once for trigger (Patient not taking: Reported on 12/07/2021 ) 1 Kit 0 Current Facility-Administered Medications Medication Dose Route Frequency Provider Last Rate Last Admin perflutren lipid microspheres 1.3 mL in NaCl (PF) 0.9% 10 mL injection (DEFINITY) INTRAVENOUS DIRECTED PRN Chantal Ayers, sodium chloride 0.9 % (flush) 10 mL (BD POSIFLUSH) 10 mL INTRAVENOUS DIRECTED PRN Chantal Ayers, DO PAST SURGICAL HISTORY Procedure Laterality Date COLONOSCOPY 07/09/2013 EXTRACTION ERUPTED TOOTH/EXR age 17 PAST SURGICAL HISTORY OF 07/09/2006 Cyst removal in right wrist TONSILLECTOMY PRIMARY/SECONDARY AGE 13/> 10/07/2008 BREAST NEEDLE CORE BIOPSY LT Left 09/2021 FAMILY HISTORY Problem Relation Age of Onset Heart Maternal Grandmother triple by pass Breast Cancer Maternal Grandmother Coronary Artery Disease Paternal Grandfather Diabetes Paternal Grandfather other (DC) Paternal Grandfather age 45 Breast Cancer Other Maternal Great Aunt x2 Social History Tobacco Use Smoking status: Never Smokeless tobacco: Never Vaping Use Vaping Use: Never used Substance Use Topics Alcohol use: Not Currently Comment: Occasionally Drug use: No REVIEW OF SYSTEMS GENERAL: Denies weight loss, malaise or fevers. MEDICAL INFORMATION SPECIALIST: Negative for new frequent or significant headaches. RESP: Negative for cough, wheezing or shortness of breath. CARD: Negative for chest pain, palpitations or leg swelling. GI: Negative for abdominal pain, no change in bowel habits, no blood in stool. : Negative for dysuria, frequency or incontinence. HEME: Patient denies known coagulopathy. RESIST COATER DEVELOPER: Negative for abnormal vaginal bleeding or abnormal vaginal discharge. BREAST: Patient denies breast pain, skin changes, breast masses, and nipple discharge or masses in axilla, as per HPI. MUSCULOSKELETAL: Negative for joint pain or swelling, no new back or bone pain. SKIN: Negative for lesions, rash, and itching. RADIATION EXPOSURE: There is no history of Radiation Therapy. PHYSICAL EXAM LMP 11/25/2021 GENERAL: Well-nourished, healthy, cooperative, female, in no acute distress, alert and oriented x 3, calm SKIN: Warm, dry, skin color, texture and turgor are normal. HEAD/EYES: Normocephalic, atraumatic and anicteric. NECK: Supple, symmetrical, no thyromegaly. RESP: Chest symmetrical with respirations, non-labored, no wheezing. ABD: Soft, non-distended. No hepatomegaly. No masses. MUSCULOSKELETAL: Upper extremities with normal range of motion, no lymphedema present, patient ambulates independently. REGIONAL LYMPH NODES: There is no concerning cervical, supraclavicular, infraclavicular or axillary lymphadenopathy. BREASTS: The patient was examined in the upright and supine positions. Breasts are symmetric Size A/B RIGHT Breast - Soft, no dominant masses, nipple everted, no discharge, no skin changes RIGHT Axilla - No palpable axillary lymphadenopathy. LEFT Breast - Soft, no dominant masses, nipple everted, no discharge, no skin changes LEFT Axilla - No palpable axillary lymphadenopathy. IMAGING BREAST MRI OF BOTH BREASTS: 03/07/2022 HISTORY: 31 year old woman with diagnosis of left breast cancer, now post neoadjuvant chemotherapy. MRI is to assess response. RESULT: Comparison is made to exams dated: 11/10/2021 MRI biopsy, 11/10/2021 mammogram - [facility] [place], 11/01/2021 breast MRI, 11/01/2021 mammogram - [facility], 10/25/2021 mammogram - [facility], and 10/20/2021 breast MRI - [facility]. MRI images were obtained with a dedicated breast coil. The patient was studied using the dedicated breast coil in the 1.5 Aida scanner. Initial axial STIR imaging was carried out followed by axial T1-weighted GRE imaging both before and after IV administration of 12 ml of Dotarem. Subsequently, subtraction imaging and 3-D reconstruction were completed on an independent workstation. An additional 4 minute high resolution sequence was performed after the first two 1 minute post-contrast sequences. 3D image post-processing was performed on an independent workstation with attending physician supervision including creation of quantitative dynamic contrast uptake subtraction images and multiplanar reconstruction (MPR). FINDINGS: Bilateral background breast enhancement is mild. Fibroglandular pattern is heterogeneous fibroglandular densities. RIGHT BREAST: There is no suspicious mass, abnormal enhancement pattern, or other significant abnormality identified. LEFT BREAST: The previously noted left upper outer breast mass is now smaller with some residual enhancement measuring approximately 1.4 x 0.8 cm (series 6, image 106). No new areas of concern are noted. NODES: There is no axillary or internal mammary adenopathy. MISCELLANEOUS: No suspicious extramammary findings are seen. IMPRESSION IMPRESSION: KNOWN BIOPSY PROVEN MALIGNANCY RIGHT BREAST: BI-RADS 1 Negative, no MRI evidence of malignancy LEFT BREAST: BI-RADS 6 Known cancer. Some residual enhancing tissue at the site of known cancer representing moderate response to chemotherapy. UNILATERAL LEFT DIGITAL DIAGNOSTIC MAMMOGRAM TOMOSYNTHESIS WITH CAD: 03/08/2022 HISTORY: Patient with known carcinoma in the left breast at 1:00, currently on neoadjuvant chemotherapy, here for imaging evaluation of treatment response. Patient had a right breast screening exam in September 2021 which was negative, and just imaging of the left breast was performed today. She reports no new symptoms. RESULT: TECHNIQUE: The study was acquired using full field digital technology and interpreted from soft copy. Digital Breast Tomosynthesis (DBT) images were obtained and used to assist in the interpretation of this examination. Current study was also evaluated with a Computer Aided Detection (CAD). Comparison is made to exams dated: 11/10/2021 mammogram, 11/10/2021 MRI biopsy - [facility], 11/01/2021 stereotactic biopsy, and 11/01/2021 breast [facility]. The tissue of left breast is heterogeneously dense. This may lower the sensitivity of mammography. Group of pleomorphic calcifications in the upper outer aspect of the left breast, posterior depth, with associated cortical clip, at site of known carcinoma. Multiple additional clips also seen in the left breast, including sites of benign concordant, benign discordant, and atypia. IMPRESSION: KNOWN BIOPSY PROVEN MALIGNANCY Group of pleomorphic calcifications in the upper outer aspect of the left breast, posterior depth, with associated cortical clip, at site of known carcinoma. Target ultrasound will be also performed. LIMITED ULTRASOUND OF LEFT BREAST AND AXILLA: 03/08/2022 RESULT: Comparison is made to exams dated: 11/10/2021 mammogram, 11/10/2021 MRI biopsy - [facility], 11/01/2021 stereotactic biopsy, and 11/01/2021 breast [facility]. Color flow and real-time ultrasound of the left breast axilla were performed. Steve scale images of the real-time examination were reviewed. No abnormalities were seen sonographically in the left axilla. There is a 0.8 x 0.7 and by 0.8 cm irregular mass with angular and spiculated margins in the left breast at 1:00 8 cmfn, with associated biopsy clip, at site of known carcinoma. This mass has size from prior exam dated 10/04/2021, which measured approximately 1.3 x 1.1 x 1.3 cm. IMPRESSION: KNOWN BIOPSY PROVEN MALIGNANCY Interval decrease in size of known carcinoma in the left breast at 1:00 since prior exam dated 10/04/2021, consistent with imaging response to neoadjuvant chemotherapy. Continued surgical/oncologic management is recommended. Patient is under the care of Dr. Null. IMPRESSION Stephen Self is a 32 year old year female who presented 11/2021 with a LEFT breast 2.7 cm IDC, NG 2 with DCIS @ 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 MRI showed 2 satellite lesions. 2nd look performed and [address] appeared normal. ER+VA+HER2+ [id number] US showed a LEFT breast mass 0.6 cm x 0.7 cm x 0.4 cm at 10 o'clock posterior depth 3 cm from the nipple (correlated to MRI finding). Breast, left, at 10:00, 3 cm from the nipple, Q clip, ultrasound-guided core biopsy: Fibroadenoma. CONCORDANT LEFT stereotactic guided biopsy was performed for the concerning area of grouped calcifications located in the left breast upper outer aspect. This was described on the previous mammography report. Breast, left, upper outer aspect, calcifications, Twirl clip, stereotactic core biopsy: Atypical ductal hyperplasia (ADH), Microcalcifications are present in ducts adjacent to ADH. CONCORDANT LEFT MRI biopsy (of the 2nd lesion) was performed for the concerning enhancing mass located in the left breast upper inner aspect. Breast, left, Hourglass clip, MRI-guided core biopsy: Benign breast parenchyma with changes suggestive of a mammary hamartoma. DISCORDANT Underwent neoadjuvant chemotherapy, TCHP with Dr. Ayers, Finished 03/10/22 Genetic testing was negative Repeat imaging today shows a partial response PLAN We had an extensive discussion of the treatment options for breast cancer including risks, benefits, and recurrence rates for breast conservation therapy versus mastectomy. We discussed reconstruction options. We discussed the indications and risks of sentinel lymph node biopsy and possibility of axillary lymph node dissection. We also discussed the possible role of systemic and radiation therapy. Discussed the potential residual disease, extent of dissection to remove all the areas, anticipated acquired surgical defect and imaging follow up with breast conserving surgery. Discussed immediate reconstruction. At this point, I dont anticipate her need for PMRT Clinically she has had negative lymph nodes, so candidate for SLNB She is interested in immediate reconstruction. She can have a nipple sparing mastectomy, will need a lateral / radial mastectomy incision to allow access to the upper outer quadrant cancer. The risks of surgery were discussed with her including bleeding, hematoma, infection, skin necrosis, sensory paresthesias and upper extremity lymphedema, and possible need for additional surgery. She acknowledges these risks and agrees to proceed. Consent was signed for: LEFT nipple sparing mastectomy, LEFT sentinel lymph node mapping and biopsy, RIGHT nipple sparing mastectomy Dr. García to place TE/implants A tentative surgical date for 04/17/22 was given at [facility] (4-6 weeks from her last chemo) The patient was given the appropiate contact numbers and will call with any questions or concerns. Ms. Self was given my contact information if she has any further questions or concerns. My final recommendation will be communicated back to the referring physician by way of shared medical record and/or written letter via [place] mail. Paulina Null DO Breast Surgeon cc: Dr. Elle Torres DO ([facility]) [id number] [place] [address] documented in this encounter [facility] 03-15-2022 Nurse Note Pt here for injection of Ziextenzo. Given sq in right arm. Pt tolerated well. Tiffany Mckinney LPN documented in this encounter [facility] 03-09-2022 Miscellaneous Notes Appointment notes updated. Alta Beckford LPN She will need a repeat CBC on Sunday prior to chemotherapy. Chantal Ayers DO documented in this encounter [facility] 03-09-2022 History of Present illness Narrative Oncologic problem(s): 1) HER2 positive breast cancer. Per Dr. Ayers's last visit on 01/26/2022 HPI: The patient is a 31-year-old female with a past medical history significant for Crohn's disease (dx 2013), vitiligo and dysmenorrhea. She self discovered a mass in the left breast. She underwent a bilateral diagnostic mammogram on 10/04/2021. The breasts were noted to be extremely dense lowering the sensitivity of the mammography. The palpable abnormality however corresponded to a 1.2 x 1.4 cm spiculated nodule in the deep lateral axillary region of the breast. Microcalcifications were identified within it. Patient underwent ultrasound of the breast on the same day. In the left breast corresponding to the palpable abnormality there was a 1.3 x 1.3 x 1.1 heterogeneous hypoechoic solid mass with microcalcifications at the 1 o'clock position of the breast 8 cm from the nipple. Increased vascularity was observed. Patient was referred to Dr. Farrar. She underwent a left core needle biopsy on 10/07/2021. 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 VA variable 10 to 50%, moderate intensity. HER-2/chaz 3+ IHC. Regular menses. OCPs starting age 17. Stopped age 30 to try to get . Stopped trying to get because had flare of Crohn's. Generalized itching all over--started last April. Triggered by heat (showever). Injured coccyx snowboarding in high school. Hurting more lately. Crohn's under control with anti-inflammatory diet. She underwent MRI of the breast on 10/20/2021. In the left breast in the upper outer quadrant there was an irregular mass with internal biopsy clip artifact representing biopsy-proven invasive carcinoma. There was an adjacent clumped nonmass enhancement that correlated to the adjacent suspicious focal asymmetry/architectural distortion with calcifications on the 10/04/2021 mammogram. Overall area of contiguous involvement in the upper outer quadrant (mass with adjacent non-mass enhancement) measured up to 2.7 cm in greatest dimension. He was noted that on a postbiopsy diagnostic mammogram that was available for comparison there was a possible group of indeterminate appearing calcifications in the upper outer quadrant posterior depth for which magnification views were recommended. Two additional abnormalities were identified in the breast--There is an additional irregular 0.5 x 0.4 x 0.4 cm (transverse by AP by cc dimensions) in the left upper-outer quadrant (series 7 image 75) which demonstrates heterogeneous enhancement with prominent central washout kinetics concerning for an additional site of involvement. There is an additional 0.4 x 0.4 x 0.4 cm mass upper CENTRAL breast (series 7 image 76) which also demonstrates heterogeneous enhancement with prominent central washout kinetics concerning for an additional site of involvement. LYMPH NODES: There are no suspicious axillary or internal mammary lymph nodes in either breast. RIGHT BREAST: There is no suspicious mass or area of non-mass enhancement identified within limitation of marked background parenchymal enhancement. Current therapy: 1) TCH-P to begin this week. Presents for ongoing oncologic management. Interim history: Underwent MRI guided biopsy with clip placement 11/01/2021. Pathology: A. Breast, left, upper outer aspect, calcifications, Twirl clip, stereotactic core biopsy: --Atypical ductal hyperplasia (ADH). --Microcalcifications are present in ducts adjacent to ADH. --Please see comment. B. Breast, left, at 10:00, 3 cm from the nipple, Q clip, ultrasound-guided core biopsy: --Fibroadenoma. Second MRI breast biopsy 11/10/2021 Pathology: A. 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 Port was placed. Current therapy: 1) TCH-P. Presents for ongoing oncologic management. Evaluation for cycle #2. Interim history: She continues to have progressive fatigue with each cycle of chemotherapy. Diarrhea was little worse this last cycle. She was given a prescription for Lomotil but did not use it. No symptoms to suggest cardiomyopathy--no dyspnea, chest pain/pressure or swelling. No symptoms of sensory neuropathy. PMH, medications and allergies personally reviewed by me today. Any changes documented in appropriate section. ROS: Constitutional: Denies episodes of fever and night sweats. Not significantly fatigued. Normal appetite. Neuro: Denies RAE, vertigo, dizziness and imbalance. Resp: Denies cough, wheeze and hemoptysis. Denies shortness of breath at rest. Denies HILL. CVS: Denies exertional chest pain, PND, orthopnea and LE edema. GI: Denies dysgeusia. Denies symptoms of stomatitis. Denies dysphagia and odynophagia. : Denies dysuria or gross hematuria. No symptoms of bladder outlet obstruction. Endo: Denies hot flashes. Denies polyuria and polydipsia. Denies heat and cold intolerance. Musculoskeletal: Denies bone, back, joint and muscular pain. Derm: Denies rash. Denies jaundice and diffuse pruritis. Heme: Denies unusual bleeding and unexplained bruising. Psych: Normal mood. PHYSICAL EXAM: VITALS: Blood pressure 114/70, pulse 96, temperature 36.9 C (98.4 F), weight 67.4 kg (148 lb 8 oz), last menstrual period 11/25/2021, SpO2 99 %. Well-appearing and in no acute distress. Performance status 90% EYES: Sclerae are anicteric bilaterally. ENT: Oral mucosa is unremarkable. There is no sign of thrush or mucositis. NECK: Supple. No enlargement of thyroid. LYMPHATIC: There is no palpable cervical, supraclavicular, axillary or inguinal adenopathy. RESPIRATORY: Inspiratory breath sounds are of normal intensity in all allen. No rales, wheezes or rhonchi. Expiratory phase is normal. CARDIOVASCULAR: Rhythm is regular. Normal intensity S1/S2. There is no gallop or murmur. 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 In the lateral left breast the firm palpable tumor is remains mobile and smaller from initial exam. There is no longer a a linear area of firmness leading inferiorly off the tumor to the biopsy site. ABDOMEN: The abdomen is nondistended. No organomegaly. No tenderness. Extremities: No swelling or edema. SKIN: No jaundice or rash. No petechiae. NEUROLOGIC: want ad receiver II-XII are grossly intact. No focal motor weakness. LABS: IMAGING: MRI breasts 03/07/2022: Bilateral background breast enhancement is mild. Fibroglandular pattern is heterogeneous fibroglandular densities. RIGHT BREAST: There is no suspicious mass, abnormal enhancement pattern, or other significant abnormality identified. LEFT BREAST: The previously noted left upper outer breast mass is now smaller with some residual enhancement measuring approximately 1.4 x 0.8 cm (series 6, image 106). No new areas of concern are noted. NODES: There is no axillary or internal mammary adenopathy. MISCELLANEOUS: No suspicious extramammary findings are seen. US L Breast 03/08/2022: No abnormalities were seen sonographically in the left axilla. There is a 0.8 x 0.7 and by 0.8 cm irregular mass with angular and spiculated margins in the left breast at 1:00 8 cmfn, with associated biopsy clip, at site of known carcinoma. This mass has size from prior exam dated 10/04/2021, which measured approximately 1.3 x 1.1 x 1.3 cm. ASSESSMENT/PLAN: (C50.412, Z17.0) Malignant neoplasm of upper-outer quadrant of left breast in female, estrogen receptor positive (HCC) (primary encounter diagnosis) Assessment: -cT2 cN0 M0 ER/VA positive, HER2 overexpressed stage IIA infiltrating ductal carcinoma of the left breast. -Significant family history of breast cancer. Several family members who were tested were negative for deleterious gene mutation. -Patient's genetic testing through [facility]--- -Had egg harvesting. She understands that she will require at a minimum 5 years of OS with AI therapy following surgery. -Tolerating Lupron during chemotherapy. -She is tolerating TCHP very well overall with no severe or unexpected toxicity except for fatigue and diarrhea. -Reviewed the results of the MRI and ultrasound which suggested response. Again discussed plan to either continue Herceptin postoperatively or changed to Kadcyla depending on pathologic response. Plan: -Continue TCHP with cycle # 6/6 pending final results of today's lab work. -Dexamethasone day before and day after chemotherapy. -Phenergan every 6 hours as needed for nausea. If she has breakthrough nausea after day 3, then Zofran may be used. -Encouraged her to continue use of Imodium for diarrhea but add Lomotil on an as-needed basis every 6 hours. -Continue monthly Lupron injections. -OV/CBC/CMP/magnesium OV in 3 weeks Portions of this documentation were copied and pasted from previous office visit notes in order to provide a cohesive continuity of the history. The note has been reviewed and edited and updated as necessary. Chantal Ayers DO Cc: DO Paulina Adams DO documented in this encounter [facility] 03-08-2022 History of Present illness Narrative Radiology Service Progress Note PATIENT NAME: Stephen Self DATE OF SERVICE: March 08, 2022 TIME: 1:49 PM PATIENT IDENTITY VERIFICATION COMPLETED USING TWO (2) IDENTIFIERS: Name and Date of confirmed by patient verbally. FALL SCREENING: Has the patient had 2 falls in the last year or 1 fall with injury or currently using an Ambulatory Assistive Device (Walker, Cane, Wheelchair, Crutches, etc.)? No PATIENT GENDER DATA: Female. status: : No status: NO. PATIENT RELEVANT IMPLANT DATA REVIEWED: Yes RADIOLOGY DEPARTMENT: Mammography PERIPHERAL IV DATA: Not applicable SIGNED BY: RT Sukh(R) March 08, 2022 1:49 PM documented in this encounter [facility] 03-07-2022 History of Present illness Narrative Radiology Service Progress Note DATE OF SERVICE: March 07, 2022 TIME: 1:35 PM PATIENT IDENTITY VERIFICATION COMPLETED USING TWO (2) STANDARD IDENTIFIERS: Name and Date of confirmed by patient verbally and Name and Date of confirmed by identification band. FALL SCREENING: Has the patient had 2 falls in the last year or 1 fall with injury or currently using an Ambulatory Assistive Device (Walker, Cane, Wheelchair, Crutches, etc.)? No PATIENT GENDER DATA: Female. status: : No status: NO. PATIENT RELEVANT IMPLANT DATA REVIEWED: Yes ALLERGIES: Reviewed and unchanged CONTRAST ALLERGY: NO. EXAM: MRI - CONTRAST TYPE: GROUP II PERIPHERAL IV DATA: MEDIPORT ACCESSED BY CORRY HAWKINSSENIOR STRUCTURAL ENGINEER DEPARTMENT: MR; Exam(s) Completed: Chest: Breast SIGNATURE: RT Alec(R) PATIENT NAME: Stephen Self DATE: March 07, 2022 TIME: 1:35 PM documented in this encounter [facility] 03-07-2022 Nurse Note Radiology Service Progress Note DATE OF SERVICE: March 07, 2022 TIME: 2:07 PM PATIENT WEIGHT: 146LBS PATIENT IDENTITY VERIFICATION COMPLETED USING TWO (2) STANDARD IDENTIFIERS: Name and Date of confirmed by patient verbally and Name and Date of confirmed by identification band. FALL SCREENING: Has the patient had 2 falls in the last year or 1 fall with injury or currently using an Ambulatory Assistive Device (Walker, Cane, Wheelchair, Crutches, etc.)? No PATIENT GENDER DATA: Female. status: : No status: NO. ALLERGIES: Reviewed and unchanged CONTRAST ALLERGY: No EXAM: MRI - CONTRAST TYPE: GROUP II IV SITE: Ambulatory: A power injectable Mediport was accessed in the Right chest with a 0.75 inch 19 gauge needle. Blood Return, Flushed easily with normal saline, Good Blood Return Post Injection, Flushed with 20 cc saline followed by Heparin 500 units/5 cc, Flushed with 20 cc saline followed by Heparin 300 units/3cc, Needle Removed, and No Complications IV SITE APPEARANCE: Clean,Dry and Intact SIGNATURE: Evangelina Page RN PATIENT NAME: Stephen Self DATE: March 07, 2022 TIME: 2:07 PM documented in this encounter [facility] 03-02-2022 History of Present illness Narrative HISTORY AND PHYSICAL Stephen Self 1990 REFERRING PHYSICIAN: Chantal Ayers DO CHIEF COMPLAINT: Anal Pain HPI: Stephen is a 31 year old female with a complaint of anal pain. she has noticed anal pain with bleeding which she attributes to the diarrhea she is having while she is undergoing neoadjuvant chemotherapy for breast cancer. The patient also states she has a history of Crohn's disease. Her Crohn's is in the ileocecal region. She had a colonoscopy when she was 23. She is not complaining of any Crohn's symptoms currently. She has no history of anal Crohn's. Patient does note an anterior anal tag which been present for some time. The patient is being seen by me today at the request of Dr. Ayers for my opinion and advice regarding anal pain and bleeding consistent with an anal fissure. SIGNIFICANT MEDICAL PROBLEMS: PAST MEDICAL HISTORY Diagnosis Date Abnormal Pap smear of cervix Anemia with crohns Cancer (HCC) breast cancer Crohn's disease (HCC) 07/09/2013 Hypoglycemia Malignant neoplasm of left breast (HCC) 09/2021 PMH - PAST MEDICAL HISTORY OF 04/08/2004 Normal color vision PMH - PAST MEDICAL HISTORY OF 12/23/2001 Pneumonia OPERATIONS: PAST SURGICAL HISTORY Procedure Laterality Date COLONOSCOPY 07/09/2013 EXTRACTION ERUPTED TOOTH/EXR age 17 PAST SURGICAL HISTORY OF 07/09/2006 Cyst removal in right wrist TONSILLECTOMY PRIMARY/SECONDARY AGE 13/> 10/07/2008 BREAST NEEDLE CORE BIOPSY LT Left 09/2021 CURRENT MEDICATIONS: Current Outpatient Medications Medication Sig Dispense Refill diphenoxylate-atropine (LOMOTIL) 2.5-0.025 mg per tablet Take 1 tablet by mouth four times daily as needed for up to 30 days. 60 tablet 0 ondansetron (ZOFRAN) 8 mg tablet Take 1 tablet by mouth every 8 hours as needed for nausea/vomiting. 30 tablet 2 LUPRON DEPOT 3.75 mg injection Inject 3.75 mg intramuscularly once every month. Once a month during chemotherapy dexAMETHasone (DECADRON) 4 mg tablet Take 1 tablet by mouth twice daily with meals. the day prior to and the day after each chemotherapy treatment. 24 tablet 0 promethazine (PHENERGAN) 25 mg tablet Take 1 tablet by mouth every 6 hours as needed. FOR NAUSEA 30 tablet 2 lidocaine-prilocaine (EMLA) 2.5-2.5 % cream Apply to port site 60 minutes prior to accessing 15 g 2 Ganirelix Acetate 250 mcg/0.5 mL Inject 0.5 mL subcutaneously once daily. (Patient not taking: Reported on 12/07/2021 ) 5 Each 0 chorionic gonadotropin (PREGNYL) 10,000 unit solr Mix with 1ml of diluent and inject [id number] units SQ once as directed for trigger (Patient not taking: Reported on 12/07/2021 ) 1 Each 0 Follitropin Beta (FOLLISTIM AQ) 900 unit/1.08 mL Inject 250 Units subcutaneously once daily. (Patient not taking: Reported on 12/07/2021 ) 3 Each 0 leuprolide (LUPRON) 1 mg/0.2 mL Inject 4 mg Subcutaneously once for trigger (Patient not taking: Reported on 12/07/2021 ) 1 Kit 0 Current Facility-Administered Medications Medication Dose Route Frequency Provider Last Rate Last Admin perflutren lipid microspheres 1.3 mL in NaCl (PF) 0.9% 10 mL injection (DEFINITY) INTRAVENOUS DIRECTED PRN Chantal Ayers DO sodium chloride 0.9 % (flush) 10 mL (BD POSIFLUSH) 10 mL INTRAVENOUS DIRECTED PRN Chantal Ayers, ALLERGIES: Patient has no known allergies. PERSONAL HISTORY: Social History Tobacco Use Smoking status: Never Smokeless tobacco: Never Vaping Use Vaping Use: Never used Substance Use Topics Alcohol use: Not Currently Comment: Occasionally Drug use: No FAMILY HISTORY: FAMILY HISTORY Problem Relation Age of Onset Heart Maternal Grandmother triple by pass Breast Cancer Maternal Grandmother Coronary Artery Disease Paternal Grandfather Diabetes Paternal Grandfather other (DC) Paternal Grandfather age 45 Breast Cancer Other Maternal Great Aunt x2 REVIEW OF SYMPTOMS: The review of systems data was entered by the nurse and reviewed by az Nursing Notes: Roxana Avina RN 03/02/2022 1:09 PM Signed REVIEW OF SYSTEMS: General: The patient NOTES fatigue, denies weight loss, denies weight gain, denies feeling hot, and denies feelings of cold. Eyes: The patient denies glaucoma, denies eye injury/surgery, wears glasses or contacts. Ear/Nose/Throat: The patient denies allergies, denies hayfever, denies ear infections, and denies bloody noses. Cardiovascular: The patient denies chest pain, denies heart disease, denies high blood pressure,denies cardiac stent, denies prior heart attack, denies irregular heart beat, denies high cholesterol, denies poor circulation, denies heart failure, other cardiac issues, denies claudication, denies cold feet, denies peripheral arterial stent. Respiratory: The patient denies tuberculosis, denies pneumonia, denies frequent cough, denies pulmonary embolism, denies shortness of breath, and denies coughing up blood. Gastrointestinal: The patient denies difficulty swallowing, denies acid reflux, denies ulcers, denies vomiting, denies jaundice/hepatitis, denies gallbladder problems, denies black or tarry stools, NOTES hemorrhoids, NOTES bleeding from rectum, denies diverticulitis, denies constipation, NOTES diarrhea, denies loss of stool control, and denies hernias. Kidney/Bladder: The patient denies kidney stones, denies urine infections, and denies bloody urine. Skin: The patient denies a history of skin cancer, denies bleeding/changing moles, and denies a history of skin rash. Neurologic: The patient denies a history of epilepsy/convulsions, denies headaches, denies head/spinal injuries, and denies stroke/TIA. Psychiatric: The patient denies psychiatric medications, denies depression, and denies voices, denies substance abuse. Endocrine: The patient denies thyroid disorders, denies diabetes, and denies hormonal problems. Hematologic: The patient denies a history of bruising, denies bleeding, and denies anemia, denies blood clots. Infections: The patient denies a history of measles and mumps, denies rheumatic fever, and denies sexually transmitted diseases. Musculoskeletal: The patient denies back pain/injury, denies back problems, denies sciatica, denies knee/foot trouble, denies arthritis, or denies gout. When was patient's last Mammogram screening? 02/17/2022 Last Colonoscopy: None Roxana Avina RN PHYSICAL EXAMINATION: General: The patient is 31 year old female, well nourished, well hydrated in no acute distress. The patient is oriented to time, place, and person. VITALS: Blood pressure 102/72, pulse 107, temperature 37.2 C (98.9 F), height 172.7 cm (5' 8), weight 66.4 kg (146 lb 6.4 oz), last menstrual period 11/25/2021, SpO2 100 %. Body mass index is 22.26 kg/m . HEENT: exam deferred Respiratory: exam deferred Cardiac: exam deferred. Abdominal exam: exam deferred Rectal exam: External exam - no true sentinal pile. An anterior tag which is nontender. Patient is tender in both the anterior and posterior midline areas consistent with anal fissures but no obvious anal fissure is seen but patient did not relax sphincter well enough to do discomfort to see area well. Digital rectal exam - deferred Extremities: exam deferred Other: LABORATORY VALUES: As Noted RADIOLOGIC STUDIES: As Noted Assessment IMPRESSION: LIKELY ANAL FISSURE PLAN: Stephen is instructed to perform sitz baths twice a day and after each bowel movement. Place dibucaine ointment on anus as needed and before all bowel movements. Keep stools soft and avoid straining if possible. Diltaizem ointment is prescribed, use twice a day. Note that this is different fron the dibucaine or pain ointment that you should use as often as needed Return if symptoms fail to improve. We discussed that regulation of stool is corbett to healing of the fissure. Most fissures heal with these measures. Return if symptoms fail to improve. Hopefully she completes her chemotherapy next week her stools returned to normal and the fissure should heal by itself. Diagnoses: (K60.2) Anal fissure (primary encounter diagnosis) My findings have been communicated to Dr. Ayers via shared medical record. Return to Clinic: The patient is instructed to follow-up with me as needed. Edith Franco MD documented in this encounter [facility] 03-02-2022 Instructions Edith Franco MD - 03/02/2022 2:23 PM EDT The following instructions are important for you related to your office visit today with the [facility]. INSTRUCTIONS FOR AN ANAL FISSURE You have an anal fissure. An anal fissure is a small tear at at the edge of the anus. It is usually caused by straining with bowel movements, but sometime it occurs during periods of loose stools or diarrhea. 70% of the time, anal fissures will heal will regulation of the stools and conservative measures. Regulation of the bowel habits is most important - The fissure will not heal if there is continued straining. I usually recommend fiber for initial regularion. Add Miralax - now available over the counter, if fiber alone isn't helping the constipation. Healing of the fissure will not occur until bowel regulation is achieved I recommend that you avoid spicy foods and perform sitz baths three to four times per day and after bovel movements. A sitz bath is drawing luke warm water in the bathtub and soaking. The purpose is to relax the sphincter and rinse the anal area. DO NOT ADD EPSOM SALTS OR OTHER INGREDIENTS THIS CAN INCREASE THE BURNING. I will recommend a topical pain ointment, usually dibucaine or proctocream With each bowel movement, I recommend placing the topcial pain ointment prior to the bowel movements and use baby wipes and perform a sitz bath after each bowel movement. Dibucaine can be used between times as needed for anal pain. It the above measures are not helping within one week, call the office, and we may prescribe Diltiazem ointment. ( this is different from Dibucaine). If prescribed, it should be applied to the anal area twice a day. If you note any difficulties or concerns, you should contact our office immediately. If you note any additional difficulties, questions, or concerns, you should contact our office immediately @ [phone] and ask to be transferred to the General Surgery department. documented in this encounter [facility] 03-02-2022 Nurse Note REVIEW OF SYSTEMS: General: The patient NOTES fatigue, denies weight loss, denies weight gain, denies feeling hot, and denies feelings of cold. Eyes: The patient denies glaucoma, denies eye injury/surgery, wears glasses or contacts. Ear/Nose/Throat: The patient denies allergies, denies hayfever, denies ear infections, and denies bloody noses. Cardiovascular: The patient denies chest pain, denies heart disease, denies high blood pressure,denies cardiac stent, denies prior heart attack, denies irregular heart beat, denies high cholesterol, denies poor circulation, denies heart failure, other cardiac issues, denies claudication, denies cold feet, denies peripheral arterial stent. Respiratory: The patient denies tuberculosis, denies pneumonia, denies frequent cough, denies pulmonary embolism, denies shortness of breath, and denies coughing up blood. Gastrointestinal: The patient denies difficulty swallowing, denies acid reflux, denies ulcers, denies vomiting, denies jaundice/hepatitis, denies gallbladder problems, denies black or tarry stools, NOTES hemorrhoids, NOTES bleeding from rectum, denies diverticulitis, denies constipation, NOTES diarrhea, denies loss of stool control, and denies hernias. Kidney/Bladder: The patient denies kidney stones, denies urine infections, and denies bloody urine. Skin: The patient denies a history of skin cancer, denies bleeding/changing moles, and denies a history of skin rash. Neurologic: The patient denies a history of epilepsy/convulsions, denies headaches, denies head/spinal injuries, and denies stroke/TIA. Psychiatric: The patient denies psychiatric medications, denies depression, and denies voices, denies substance abuse. Endocrine: The patient denies thyroid disorders, denies diabetes, and denies hormonal problems. Hematologic: The patient denies a history of bruising, denies bleeding, and denies anemia, denies blood clots. Infections: The patient denies a history of measles and mumps, denies rheumatic fever, and denies sexually transmitted diseases. Musculoskeletal: The patient denies back pain/injury, denies back problems, denies sciatica, denies knee/foot trouble, denies arthritis, or denies gout. When was patient's last Mammogram screening? 02/17/2022 Last Colonoscopy: None Roxana Avina RN documented in this encounter [facility] 02-28-2022 Miscellaneous Notes Spoke with patient to discuss possible surgical dates. Last chemotherapy treatments is scheduled for 03/10/2022. She agrees to have the surgery at [facility] on 04/03/2022, with a tentative plan of undergoing a LEFT mastectomy with SN bx and recon,pending her regroup with and on 03/17/2022. Contact numbers reviewed for any questions/concerns in the interim. Amber Miles PA-C documented in this encounter [facility] 02-28-2022 Miscellaneous Notes Scheduled and notified. LM for patient to return call. When patient calls, please schedule a consult with General Surgery for internal hemorrhoids. Once scheduled, document and close this note. Paulina Chang Patient informed of Dr. Ayers's response, stated understanding. Patient stated Dr. Baker placed her port but would like to see general surgery at [facility]. PSS- Please refer patient to [facility] general surgery here in [place] for evaluation. Thank you. Krissy Beckham RN Advise her to use Preparation H internally and referral to general surgery for evaluation of internal hemorrhoids and/or anal fissure. Chantal Ayers DO Patient stated she has had bright red blood in her stool after each treatment which happens for a week and then subsides. Patient stated she had treatment on 02/20/22 and she has had increased rectal bleeding that occurs with BMs and even if she sits down to urinate, she will drip blood from her anus. Patient stated at times the whole toilet bowl is red or it'll just be on the tissue paper from wiping. Patient stated she does not have any blood in her underwear. Patient stated yesterday she developed 8/10 pain that occurs during/after a BM and then goes down to a dull aching pain. Patient denies any visible cuts, stated she thinks she has internal hemorrhoids. Patient has been using preparation H without relief. Patient is having 2-3 somewhat soft stool episodes daily. Patient has not needed to take imodium. Patient asking for advise on the rectal bleeding. Patient advised to use tuck pads with wiping and discussed perianal care. Patient informed this nurse will speak to Dr. Ayers and call her back with further instructions. Krissy Beckham RN Patient requesting a call from Krissy with symptoms after chemo. Patient having diarrhea, pain while going, bright red stool, more frequently. Please advise. documented in this encounter [facility] 02-21-2022 Miscellaneous Notes Patient has been in contact with a SW who provided patient with resource information. Krissy Beckham RN Called patient, no answer, a message was left requesting a call back from patient. Krissy Beckham RN Patient stopped at the bowling or skating front desk clerk asking if Kirssy could give her a call. She knows that we no longer has a social security specialist here and one of the other nurses suggested she speak with Krissy re: job loss, etc. Paulina Chang documented in this encounter [facility] 02-20-2022 Miscellaneous Notes Left message for patient to return call to discuss possible surgical dates. Contact numbers reviewed for her convenience. Amber Miles PA-C documented in this encounter [facility] 02-20-2022 Miscellaneous Notes Called and spoke to pt regarding her upcoming appointment with , informed her she will need more imaging prior. Mri, mammogram and ultrasound to check for chemo response. She verbalized understanding, MRI made for 03/07 at 1:20 pm in [place], will call tomorrow for her other imaging appointment in [facility]. Told her tentative date for surgery will be 04/11. She verbalized understanding. Valentina Mars LPN documented in this encounter [facility] 02-20-2022 Miscellaneous Notes Called and left message on pt voice mail, asking her to please return my call to assist her in scheduling imaging prior to her appointment with on 03/17. Left my contact number to where I can be reached. Valentina Mars LPN documented in this encounter [facility] 02-20-2022 History of Present illness Narrative Assessment unchanged from Dr Clement office visit on 02/17/22 documented in this encounter [facility] 02-16-2022 History of Present illness Narrative Oncologic problem(s): 1) HER2 positive breast cancer. Per Dr. Ayers's last visit on 01/26/2022 HPI: The patient is a 31-year-old female with a past medical history significant for Crohn's disease (dx 2013), vitiligo and dysmenorrhea. She self discovered a mass in the left breast. She underwent a bilateral diagnostic mammogram on 10/04/2021. The breasts were noted to be extremely dense lowering the sensitivity of the mammography. The palpable abnormality however corresponded to a 1.2 x 1.4 cm spiculated nodule in the deep lateral axillary region of the breast. Microcalcifications were identified within it. Patient underwent ultrasound of the breast on the same day. In the left breast corresponding to the palpable abnormality there was a 1.3 x 1.3 x 1.1 heterogeneous hypoechoic solid mass with microcalcifications at the 1 o'clock position of the breast 8 cm from the nipple. Increased vascularity was observed. Patient was referred to Dr. Farrar. She underwent a left core needle biopsy on 10/07/2021. 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 VA variable 10 to 50%, moderate intensity. HER-2/chaz 3+ IHC. Regular menses. OCPs starting age 17. Stopped age 30 to try to get . Stopped trying to get because had flare of Crohn's. Generalized itching all over--started last April. Triggered by heat (showever). Injured coccyx snowboarding in high school. Hurting more lately. Crohn's under control with anti-inflammatory diet. She underwent MRI of the breast on 10/20/2021. In the left breast in the upper outer quadrant there was an irregular mass with internal biopsy clip artifact representing biopsy-proven invasive carcinoma. There was an adjacent clumped nonmass enhancement that correlated to the adjacent suspicious focal asymmetry/architectural distortion with calcifications on the 10/04/2021 mammogram. Overall area of contiguous involvement in the upper outer quadrant (mass with adjacent non-mass enhancement) measured up to 2.7 cm in greatest dimension. He was noted that on a postbiopsy diagnostic mammogram that was available for comparison there was a possible group of indeterminate appearing calcifications in the upper outer quadrant posterior depth for which magnification views were recommended. Two additional abnormalities were identified in the breast--There is an additional irregular 0.5 x 0.4 x 0.4 cm (transverse by AP by cc dimensions) in the left upper-outer quadrant (series 7 image 75) which demonstrates heterogeneous enhancement with prominent central washout kinetics concerning for an additional site of involvement. There is an additional 0.4 x 0.4 x 0.4 cm mass upper CENTRAL breast (series 7 image 76) which also demonstrates heterogeneous enhancement with prominent central washout kinetics concerning for an additional site of involvement. LYMPH NODES: There are no suspicious axillary or internal mammary lymph nodes in either breast. RIGHT BREAST: There is no suspicious mass or area of non-mass enhancement identified within limitation of marked background parenchymal enhancement. Current therapy: 1) TCH-P to begin this week. Presents for ongoing oncologic management. Interim history: Underwent MRI guided biopsy with clip placement 11/01/2021. Pathology: A. Breast, left, upper outer aspect, calcifications, Twirl clip, stereotactic core biopsy: --Atypical ductal hyperplasia (ADH). --Microcalcifications are present in ducts adjacent to ADH. --Please see comment. B. Breast, left, at 10:00, 3 cm from the nipple, Q clip, ultrasound-guided core biopsy: --Fibroadenoma. Second MRI breast biopsy 11/10/2021 Pathology: A. 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 Port was placed. Current therapy: 1) TCH-P. Presents for ongoing oncologic management. Evaluation for cycle #2. Interim history: More lingering fatigue with chemotherapy. Nausea more manageable with Phenergan. Has more diarrhea after chemotherapy, but somewhat under-controlled with Imodium. Weight stable. Increase in hot flashes. No symptoms to suggest cardiomyopathy--no dyspnea, chest pain/pressure or swelling. No symptoms of sensory neuropathy. PMH, medications and allergies personally reviewed by me today. Any changes documented in appropriate section. ROS: Constitutional: Denies episodes of fever and night sweats. Not significantly fatigued. Normal appetite. Neuro: Denies RAE, vertigo, dizziness and imbalance. Resp: Denies cough, wheeze and hemoptysis. Denies shortness of breath at rest. Denies HILL. CVS: Denies exertional chest pain, PND, orthopnea and LE edema. GI: Denies dysgeusia. Denies symptoms of stomatitis. Denies dysphagia and odynophagia. Denies reflux, n/v, change in bowel habits and abdominal pain. : Denies dysuria or gross hematuria. No symptoms of bladder outlet obstruction. Endo: Denies hot flashes. Denies polyuria and polydipsia. Denies heat and cold intolerance. Musculoskeletal: Denies bone, back, joint and muscular pain. Derm: Denies rash. Denies jaundice and diffuse pruritis. Heme: Denies unusual bleeding and unexplained bruising. Psych: Normal mood. PHYSICAL EXAM: Well-appearing and in no acute distress. Performance status 90% BP 133/80 Pulse 98 Temp 98.8 Wt 147 lb 12.8 oz (67.0kg) SpO2 97% LMP 11/25/2021 EYES: Sclerae are anicteric bilaterally. ENT: Oral mucosa is unremarkable. There is no sign of thrush or mucositis. NECK: Supple. No enlargement of thyroid. LYMPHATIC: There is no palpable cervical, supraclavicular, axillary or inguinal adenopathy. RESPIRATORY: Inspiratory breath sounds are of normal intensity in all allen. No rales, wheezes or rhonchi. Expiratory phase is normal. CARDIOVASCULAR: Rhythm is regular. Normal intensity S1/S2. There is no gallop or murmur. 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 In the lateral left breast the firm palpable tumor is smaller. Remains mobile. There is no longer a a linear area of firmness leading inferiorly off the tumor to the biopsy site. ABDOMEN: The abdomen is nondistended. No organomegaly. No tenderness. Extremities: No swelling or edema. SKIN: No jaundice or rash. No petechiae. NEUROLOGIC: want ad receiver II-XII are grossly intact. No focal motor weakness. LABS: Component Latest Ref Rng & Units 02/16/2022 WBC 3.70 - 11.00 k/uL 3.98 RBC 3.90 - 5.20 m/uL 3.55 (L) Hemoglobin 11.5 - 15.5 g/dL 10.5 (L) Hematocrit 36.0 - 46.0 % 33.0 (L) MCV 80.0 - 100.0 fL 93.0 MCH 26.0 - 34.0 pg 29.6 MCHC 30.5 - 36.0 g/dL 31.8 RDW-CV 11.5 - 15.0 % 18.2 (H) Platelet Count 150 - 400 k/uL 110 (L) MPV 9.0 - 12.7 fL 10.3 Neut% % 51.5 Abs Neut (ANC) 1.45 - 7.50 k/uL 2.05 Lymph% % 32.4 Abs Lymph 1.00 - 4.00 k/uL 1.29 Macomb% % 15.3 Abs [place] <0.87 k/uL 0.61 Eosin% % 0.0 Abs Eosin <0.46 k/uL <0.03 Baso% % 0.5 Abs Baso <0.11 k/uL <0.03 Immature Gran % % 0.3 IMMATURE GRANS (ABS) <0.10 k/uL <0.03 NRBC /100 WBC 0.0 Absolute nRBC <0.01 k/uL <0.01 DTYPE Auto Component Latest Ref Rng & Units 02/16/2022 Protein, Total 6.3 - 8.0 g/dL 6.3 Albumin 3.9 - 4.9 g/dL 4.2 Calcium 8.5 - 10.2 mg/dL 8.4 (L) Bilirubin, Total 0.2 - 1.3 mg/dL 0.3 Alkaline Phosphatase 34 - 123 U/L 84 AST 13 - 35 U/L 27 ALT 7 - 38 U/L 20 Glucose 74 - 99 mg/dL 91 BUN 7 - 21 mg/dL 9 Creatinine 0.58 - 0.96 mg/dL 0.56 (L) Sodium 136 - 144 mmol/L 137 Potassium 3.7 - 5.1 mmol/L 4.0 Chloride 97 - 105 mmol/L 107 (H) CO2 22 - 30 mmol/L 23 Anion Gap 9 - 18 mmol/L 7 (L) eGFR >=60 mL/min/1.73m 126 Magnesium 1.7 - 2.3 mg/dL 1.8 ASSESSMENT/PLAN: (C50.412, Z17.0) Malignant neoplasm of upper-outer quadrant of left breast in female, estrogen receptor positive (HCC) (primary encounter diagnosis) Assessment: -cT2 cN0 M0 ER/VA positive, HER2 overexpressed stage IIA infiltrating ductal carcinoma of the left breast. -Significant family history of breast cancer. Several family members who were tested were negative for deleterious gene mutation. -Patient's genetic testing through [facility]--- -Had egg harvesting. She understands that she will require at a minimum 5 years of OS with AI therapy following surgery. -Tolerating Lupron during chemotherapy. -She is tolerating TCHP very well overall with no severe or unexpected toxicity except for fatigue and diarrhea. Plan: -Continue TCHP with cycle # 5/6. -Dexamethasone day before and day after chemotherapy. -Phenergan every 6 hours as needed for nausea. If she has breakthrough nausea after day 3, then Zofran may be used. -Changed to Lomotil every 4 hours on a prn basis for diarrhea -Continue monthly Lupron injections. -OV/CBC/CMP/magnesium OV in 3 weeks -MRI breast following cycle #6 & appointment with Dr. Zuniga. Portions of this documentation were copied and pasted from previous office visit notes in order to provide a cohesive continuity of the history. The note has been reviewed and edited and updated as necessary. Lance Clement MD Cc: DO Paulina Adams DO documented in this encounter [facility] 02-16-2022 History of Present illness Narrative Patient is here for IVAD port flush/blood draw per [facility] [place] protocol. IVAD is located in right upper chest. Site cleansed with Chloraprep IVAD accessed with a #20 gauge 3/4 non-coring Gripper needle Flush with 5cc's Normal Saline. Blood Return: Good. 10 cc's blood aspirated and discarded. Blood drawn for CBC, CMP, and Gold top. Flushed with: 20 ml Normal Saline and 5 ml Heparin Lock Flush. Non-coring needle removed. Paper tape applied to puncture site. Site negative for redness, edema or tenderness. Patient tolerated procedure well. documented in this encounter [facility] 02-07-2022 Miscellaneous Notes Spoke with patient and scheduled Hydration for 02/08 at 9am Loraine Macario I entered orders for hydration. Also if she is able to provide a specimen tomorrow, I would like to rule out C. difficile. Chantal Ayers DO Spoke with Dr. Ayers, patient to take 2 Imodium after each watery stool and have patient to come in tomorrow for hydration ( 1 liter over 2 hours) Call to patient and aware of above. Patient states understanding and agreeable. Preeti Fonseca RN PSS: please call patient and schedule for hydration tomorrow. Patient is ok with any time that works. Dr. Ayers, please place hydration orders. Preeti Fonseca RN Patient states that she started with diarrhea about a week ago. States she has been having about 3 episodes daily and using Imodium. States she will take 2 Imodium with first watery stool each day and then 1 after each additional watery stool. She has only been using 4 Imodium total b/c that is the instructions on the package. Patient aware that she can take up to 8 in a 24 hour period. She is concerned about the warning on the package about heart issues and taking more than 4 because she has to take for a whole week with the past cycles. She states the diarrhea is triggered by eating or drinking anything and today is it worse. She has already had 5 watery stools today. She states it is not much each time b/c she is not eating much. States her appetite is back and she is hungry but reluctant to eat much b/c she knows it will trigger diarrhea. States cramping with diarrhea and like a Crohn's attack, I do have Crohn's States some bleeding on first day, it flares my hemorrhoids. Denies any mucous and no bleeding since the first day. She has also been using Preparation H suppositories for pain d/t the frequent diarrhea and helping some but only last until next diarrhea episode. Drinking about 80oz daily of water. States she feels weak, lightheaded but thinks due to not eating much. Denies fever, chills, new medications or antibiotics, no urinary symptoms, urine color clear, denies other issues. Had nausea, used Phenergan with good results, no nausea now. Aware that I will discuss with Dr. Ayers and call back with further instructions. Preeti Fonseca RN Patient is calling with bad diarrhea and stomach cramps started about a week and getting worse. She states Imodium is not helping. Please advise the patient. documented in this encounter [facility] 01-27-2022 Miscellaneous Notes Patient returned office call and has been rescheduled to 02/20. Patient voiced understanding with no further questions. Tried contacting pt, went to , left a message for pt to return call. Suzie Santamaria Yes. Chantal Ayers DO Pt asking if her Sunday, 02/17 treatment appt be changed to Tuesday 02/20. Please advise documented in this encounter [facility] 01-26-2022 History of Present illness Narrative Oncologic problem(s): 1) HER2 positive breast cancer. HPI: The patient is a 31-year-old female with a past medical history significant for Crohn's disease (dx 2013), vitiligo and dysmenorrhea. She self discovered a mass in the left breast. She underwent a bilateral diagnostic mammogram on 10/04/2021. The breasts were noted to be extremely dense lowering the sensitivity of the mammography. The palpable abnormality however corresponded to a 1.2 x 1.4 cm spiculated nodule in the deep lateral axillary region of the breast. Microcalcifications were identified within it. Patient underwent ultrasound of the breast on the same day. In the left breast corresponding to the palpable abnormality there was a 1.3 x 1.3 x 1.1 heterogeneous hypoechoic solid mass with microcalcifications at the 1 o'clock position of the breast 8 cm from the nipple. Increased vascularity was observed. Patient was referred to Dr. Farrar. She underwent a left core needle biopsy on 10/07/2021. 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 VA variable 10 to 50%, moderate intensity. HER-2/chaz 3+ IHC. Regular menses. OCPs starting age 17. Stopped age 30 to try to get . Stopped trying to get because had flare of Crohn's. Generalized itching all over--started last April. Triggered by heat (showever). Injured coccyx snowboarding in high school. Hurting more lately. Crohn's under control with anti-inflammatory diet. She underwent MRI of the breast on 10/20/2021. In the left breast in the upper outer quadrant there was an irregular mass with internal biopsy clip artifact representing biopsy-proven invasive carcinoma. There was an adjacent clumped nonmass enhancement that correlated to the adjacent suspicious focal asymmetry/architectural distortion with calcifications on the 10/04/2021 mammogram. Overall area of contiguous involvement in the upper outer quadrant (mass with adjacent non-mass enhancement) measured up to 2.7 cm in greatest dimension. He was noted that on a postbiopsy diagnostic mammogram that was available for comparison there was a possible group of indeterminate appearing calcifications in the upper outer quadrant posterior depth for which magnification views were recommended. Two additional abnormalities were identified in the breast--There is an additional irregular 0.5 x 0.4 x 0.4 cm (transverse by AP by cc dimensions) in the left upper-outer quadrant (series 7 image 75) which demonstrates heterogeneous enhancement with prominent central washout kinetics concerning for an additional site of involvement. There is an additional 0.4 x 0.4 x 0.4 cm mass upper CENTRAL breast (series 7 image 76) which also demonstrates heterogeneous enhancement with prominent central washout kinetics concerning for an additional site of involvement. LYMPH NODES: There are no suspicious axillary or internal mammary lymph nodes in either breast. RIGHT BREAST: There is no suspicious mass or area of non-mass enhancement identified within limitation of marked background parenchymal enhancement. Current therapy: 1) TCH-P to begin this week. Presents for ongoing oncologic management. Interim history: Underwent MRI guided biopsy with clip placement 11/01/2021. Pathology: A. Breast, left, upper outer aspect, calcifications, Twirl clip, stereotactic core biopsy: --Atypical ductal hyperplasia (ADH). --Microcalcifications are present in ducts adjacent to ADH. --Please see comment. B. Breast, left, at 10:00, 3 cm from the nipple, Q clip, ultrasound-guided core biopsy: --Fibroadenoma. Second MRI breast biopsy 11/10/2021 Pathology: A. 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 Port was placed. Current therapy: 1) TCH-P. Presents for ongoing oncologic management. Evaluation for cycle #2. Interim history: More lingering fatigue this cycle. Nausea more manageable with Phenergan. Has about a week of diarrhea during second week--controlled with Imodium. No migraine RAE since first cycle. Weight stable. Increase in hot flashes. No symptoms to suggest cardiomyopathy--no dyspnea, chest pain/pressure or swelling. No symptoms of sensory neuropathy. PMH, medications and allergies personally reviewed by me today. Any changes documented in appropriate section. ROS: Constitutional: Denies episodes of fever and night sweats. Not significantly fatigued. Normal appetite. Neuro: Denies RAE, vertigo, dizziness and imbalance. Resp: Denies cough, wheeze and hemoptysis. Denies shortness of breath at rest. Denies HILL. CVS: Denies exertional chest pain, PND, orthopnea and LE edema. GI: Denies dysgeusia. Denies symptoms of stomatitis. Denies dysphagia and odynophagia. Denies reflux, n/v, change in bowel habits and abdominal pain. : Denies dysuria or gross hematuria. No symptoms of bladder outlet obstruction. Endo: Denies hot flashes. Denies polyuria and polydipsia. Denies heat and cold intolerance. Musculoskeletal: Denies bone, back, joint and muscular pain. Derm: Denies rash. Denies jaundice and diffuse pruritis. Heme: Denies unusual bleeding and unexplained bruising. Psych: Normal mood. Social history: Non-smoker. Occasional alcohol. 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 Family history: MGM--Breast cancer in her 60s. Two of her sisters had breast cancer. Mother has two first cousins on her mother's side who have had breast cancer. Three of the above had genetic testing and were negative. Mother's paternal aunt--Breast cancer. All relatives who had breast cancer were post-menopausal. Paternal great grandmother--Breast cancer. Patient's first cousin on mother's side had aggressive B-cell lymphoma age 26. Cured. Patient has one brother. PHYSICAL EXAM: Vitals: Blood pressure 109/66, pulse 101, temperature 36.7 C (98.1 F), weight 66.5 kg (146 lb 8 oz), last menstrual period 11/25/2021, SpO2 97 %. Well-appearing and in no acute distress. EYES: Sclerae are anicteric bilaterally. ENT: Oral mucosa is unremarkable. There is no sign of thrush or mucositis. NECK: Supple. No enlargement of thyroid. LYMPHATIC: There is no palpable cervical, supraclavicular, axillary or inguinal adenopathy. RESPIRATORY: Inspiratory breath sounds are of normal intensity in all allen. No rales, wheezes or rhonchi. Expiratory phase is normal. CARDIOVASCULAR: Rhythm is regular. Normal intensity S1/S2. There is no gallop or murmur. 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 In the lateral left breast the firm palpable tumor is smaller. Remains mobile. There is no longer a a linear area of firmness leading inferiorly off the tumor to the biopsy site. ABDOMEN: The abdomen is nondistended. No organomegaly. No tenderness. Extremities: No swelling or edema. SKIN: No jaundice or rash. No petechiae. NEUROLOGIC: want ad receiver II-XII are grossly intact. No focal motor weakness. ASSESSMENT/PLAN: (C50.412, Z17.0) Malignant neoplasm of upper-outer quadrant of left breast in female, estrogen receptor positive (HCC) (primary encounter diagnosis) Assessment: -cT2 cN0 M0 ER/VA positive, HER2 overexpressed stage IIA infiltrating ductal carcinoma of the left breast. -Significant family history of breast cancer. Several family members who were tested were negative for deleterious gene mutation. -Patient's genetic testing through [facility]--- -Again explained that adjuvant treatment will depend on the pathologic response following initial chemotherapy. -Had egg harvesting. She understands that she will require at a minimum 5 years of OS with AI therapy following surgery. -Discussed rationale for not using AI in addition to Lupron during chemotherapy. -She is tolerating TCHP very well overall with no severe or unexpected toxicity. Plan: -Continue TCHP with cycle #4. -Dexamethasone and Sunday. -Phenergan every 6 hours as needed for nausea. If she has breakthrough nausea after day 3, then Zofran may be used. -Continue Imodium on a prn basis. -Continue monthly Lupron injections. -Will plan continue OS with AI in the adjuvant setting per TB recommendations. -OV/CBC/CMP/magnesium for cycle #5. -MRI breast following cycle #6. Portions of this documentation were copied and pasted from previous office visit notes in order to provide a cohesive continuity of the history. The note has been reviewed and edited and updated as necessary. During this patient visit I have spent approximately 15 minutes out of 20 in counseling regarding treatment options, medications, test results, plan of therapy and coordinating care. Chantal Ayers DO documented in this encounter [facility] 01-06-2022 Miscellaneous Notes Please sign orders for treatment today, thanks! documented in this encounter [facility] 01-04-2022 History of Present illness Narrative Patient is here for IVAD port flush/blood draw per [facility] [place] protocol. IVAD is located in right upper chest. Site cleansed with Chloraprep IVAD accessed with a #20 gauge 3/4 non-coring Gripper needle Flush with 5cc's Normal Saline. Blood Return: Good. 10 cc's blood aspirated and discarded. Blood drawn for CBC and CMP. Flushed with: 20 ml Normal Saline and 5 ml Heparin Lock Flush. Non-coring needle removed. Paper tape applied to puncture site. Site negative for redness, edema or tenderness. Patient tolerated procedure well. documented in this encounter [facility] 12-16-2021 Miscellaneous Notes Yes. Chantal Ayers DO Dr. Ayers, Pt asking if she can try Zofran for day 3 nausea? Phenergen works but states the drowsiness makes it difficult to function throughout the day. Please advise. Thank you. (Pt is aware she cannot take Ondansetron for 72hrs post treatment) documented in this encounter [facility] 12-15-[address] - 12/15/2021 10:15 AM EDT Nutrition Intervention: Please read though introductory material provided. -Consider meal prepping prior to treatment. - aim for 5-6 small/frequent meals - incorporate lean sources of protein/plant based proteins at meals - Stay well hydrated - sip on fluids throughout the day (64 oz). -Strategies to manage treatment side effects: diarrhea, nausea documented in this encounter [facility] 12-12-2021 History of Present illness Narrative Nutrition Therapy Initial Assessment This visit was performed via telehealth due to the COVID-19 epidemic as an effort to protect patients and minimize exposure. Consent from patient received to conduct visit via telehealth. This Team Access Model visit is a phone encounter. It required patient-provider interaction for the medical decision making as documented below. RECOMMENDED MALNUTRITION DIAGNOSIS: UNABLE TO IDENTIFY MALNUTRITION AT THIS TIME Reason for visit: Nutrition Counseling Nutrition Diagnosis: Increased nutrient needs (kcal, pro) related to physiological changes increasing nutrient utilization as evidenced by ca dx and treatment plan. Nutrition Intervention: Please read though introductory material provided. -Consider meal prepping prior to treatment. - aim for 5-6 small/frequent meals - incorporate lean sources of protein/plant based proteins at meals - Stay well hydrated - sip on fluids throughout the day (64 oz). -Strategies to manage treatment side effects: diarrhea, nausea Educational materials provided: Creative Eating During Illness and Recovery Nutrition Assessment HPI: Pt is 31 yo female who presents for nutrition counseling for HER 2+ left breast ca. Pt is currently being treated with neoadjuvant TCHP - 21 day cycle. Current status: Pt symptoms are cyclical with chemotherapy: Nausea/ no vomiting - 1st week; Diarrhea - 2nd week; Appetite back to normal 3rd week. Crohn's under control with anti-inflammatory diet. Follows Gut Guide. Does not eat: nuts, milk products, high fructose corn syrup, guar gum Likes: Hummus, sweet peas, meat Diet History (24hr recall): Breakfast - oatmeal Snack - Lunch - leftovers from night before (Spaghetti) Snack - Dinner - Pizza Snack - Beverages - drinks water, occasional pop Alcohol- no Vitamins/Supplements - liver capsule crohns Might snack on cheese stick, pretzels Provided supportive education regarding the importance of adequate nutrient intakes and maintenance of lean body mass throughout treatment. Discussed above intervention. All questions/concerns voiced by pt were addressed this visit. Anthropometrics: Height: Last 1 Encounter Ht Readings: Date: Ht: 11/11/2021 172.7 cm (5' 8) Current weight: Last 10 Encounter Wt Readings: Date: Wt: 12/09/2021 66.7 kg (147 lb) 12/07/2021 66 kg (145 lb 8 oz) 11/23/2021 66.7 kg (147 lb) 11/23/2021 66.7 kg (147 lb) 11/11/2021 65.3 kg (144 lb) 10/28/2021 65.8 kg (145 lb) 10/25/2021 67.6 kg (149 lb) 10/21/2021 65.8 kg (145 lb) 10/19/2021 66.2 kg (146 lb) 10/11/2017 72.6 kg (160 lb) Estimated body mass index is 22.35 kg/m as calculated from the following: Height as of 11/13/21: 172.7 cm (5' 8). Weight as of 12/09/21: 66.7 kg (147 lb). Resting Metabolic Rate: 1436 Weight Loss: none in past two months Estimated Needs: Dosing Weight: 66.7 kg Estimated kilocalorie needs: 1236-8202 kilocalories determined by 30-35 kcal/kg Estimated protein needs: 80-100 grams determined by 1.2-1.5 g/kg Dosing weight Estimated fluid needs: 4160-7698 milliliters based on 1 mL per kcal Readiness to Learn Cognitive ability: Alert and oriented Motivation to learn: Interested Family support: Unable to assess - Family not present Instruction provided to: Patient Patient learns best by: Multiple Methods Factors affecting learning: None Physical limitations affecting learning: None NUTRITION FOCUSED PHYSICAL EXAM: Unable to perform exam due to patient unavailable, will re-attempt during reassessment. Potential Signs of Inflammation: chronic condition Allergies: Patient has no known allergies. Medications: Current Outpatient Medications Medication Sig Dispense Refill LUPRON DEPOT 3.75 mg injection Inject 3.75 mg intramuscularly once every month. Once a month during chemotherapy Ibuprofen 200 mg cap Take 400 mg by mouth one time only. Patient taking for severe headache on 11/09/2021 dexAMETHasone (DECADRON) 4 mg tablet Take 1 tablet by mouth twice daily with meals. the day prior to and the day after each chemotherapy treatment. 24 tablet 0 promethazine (PHENERGAN) 25 mg tablet Take 1 tablet by mouth every 6 hours as needed. FOR NAUSEA 30 tablet 2 lidocaine-prilocaine (EMLA) 2.5-2.5 % cream Apply to port site 60 minutes prior to accessing 15 g 2 letrozole (FEMARA) 2.5 mg tablet Take 2 tablets by mouth once daily. (Patient not taking: Reported on 12/07/2021 ) 60 tablet 0 Ganirelix Acetate 250 mcg/0.5 mL Inject 0.5 mL subcutaneously once daily. (Patient not taking: Reported on 12/07/2021 ) 5 Each 0 chorionic gonadotropin (PREGNYL) 10,000 unit solr Mix with 1ml of diluent and inject 28512 units SQ once as directed for trigger (Patient not taking: Reported on 12/07/2021 ) 1 Each 0 Follitropin Beta (FOLLISTIM AQ) 900 unit/1.08 mL Inject 250 Units subcutaneously once daily. (Patient not taking: Reported on 12/07/2021 ) 3 Each 0 leuprolide (LUPRON) 1 mg/0.2 mL Inject 4 mg Subcutaneously once for trigger (Patient not taking: Reported on 12/07/2021 ) 1 Kit 0 Current Facility-Administered Medications Medication Dose Route Frequency Provider Last Rate Last Admin perflutren lipid microspheres 1.3 mL in NaCl (PF) 0.9% 10 mL injection (DEFINITY) INTRAVENOUS DIRECTED PRN Chantal Ayesr DO sodium chloride 0.9 % (flush) 10 mL (BD POSIFLUSH) 10 mL INTRAVENOUS DIRECTED PRN Chantal Ayers DO (date of last encounter ): Nutrition Monitoring & Evaluation: PO intake Supplement tolerance Wt status Biochemical Markers Skin integrity Plan of care Patient met goal(s): na Need for Follow up:Will follow up in one month Referred/Supervised by: Dr. Ayers Thank you for allowing me to participate in the care of this pt. MNT Billing Type: Initial Assess/15 min 3 units Signed by: Verito Muniz RD,LD documented in this encounter [facility] 12-09-2021 Nurse Note Patient presents with: Imm/Inj Pt is identified by name and birthdate: Yes. Allergies and medications reviewed. Latex allergy? No. Does this patient have: Unplanned weight loss or gain of greater than 10 pounds, or a change of appetite over the last year? No Does the patient have any concerns about safety in the home/falls? Not at risk for falls Has the patient fallen in the past year? No Does the patient have difficulty performing or completing routine daily living activities? No Does this patient have concerns about personal safety? No Is patient having pain? Pain: No=0 (pain 0 on a scale of 0-10). Health Maintenance: Reviewed and updated. Does patient have MyChart access or Caregiver proxy: yes Pt/Caregiver willingness and readiness to learn assessed: Yes. Barriers: none Lupron injection administered, right buttock, tolerated well, no immediate adverse reactions noted. Em Duff LPN documented in this encounter [facility] 12-08-2021 Miscellaneous Notes Spoke with patient and scheduled. Paulina Chang Thank you. Order filed. Chantal Ayers DO Spoke to radiation nurse yesterday, patient is requesting a nutrition consult. I spoke to Verito Muniz and she is agreeable to doing a virtual visit with this patient. Per Verito, please put [place] in the appointment notes and if there is a specific time to be called. Please contact patient and schedule the appointment. Order filed to be signed, thank you. Krissy Beckham RN documented in this encounter [facility] 12-07-2021 History of Present illness Narrative Radiation Oncology - New Patient/Consult Note PATIENT NAME: Stephen Self PATIENT REQUESTING PROVIDER: Paulina Null DIAGNOSIS: cT2 cN0, invasive ductal carcinoma of the left breast now undergoing neoadjuvant chemotherapy with TCHP. It's ER positive (>95%, strong), VA positive (variable, 10-50%) and Her2 3+. Cancer Staging Malignant neoplasm of upper-outer quadrant of left breast in female, estrogen receptor positive (HCC) Staging form: Breast, AJCC 8th Edition - Clinical stage from 11/07/2021: cN0, cM0, G2, ER+, VA+, HER2+ - Signed by Pauilna Null DO on 11/07/2021 HPI: 31 year old female who presents with above diagnosis, for an opinion regarding the role of radiation therapy in the management of the patient's disease. Final recommendations will be communicated back to the requesting physician by way of the shared medical record, or letter to requesting physician via [place] mail. 31 year old woman who felt a lump in the left upper breast early this year. Bilateral diagnostic mammogram on 10/04/21 showed a spiculated nodule measuring 1.2 x 1.4 cm in the deep lateral axillary region of the left breast. US of the left breast showed a heterogenous hypoechoic solid mass measuring 1.3 x 1.3 x 1.1 cm at the 1:00 position corresponding to the palpable area and mammogram abnormality. Core biopsy of the left breast lesion on 10/07/21 showed grade 2 invasive ductal carcinoma and DCIS. It's ER positive (>95%, strong), VA positive (variable, 10-50%) and Her2 3+. MRI breasts on 10/20/21 showed left breast upper outer quadrant irregular mass with internal biopsy clip artifact representing the biopsy-proven invasive carcinoma. The area of suspicion measured 2.7 cm in greatest dimension. Two additional masses in the LEFT breast . There are no suspicious axillary or internal mammary nodes in either breast. There is no definite MRI evidence of malignancy in the RIGHT breast. Core biopsy of the left upper outer breast calcification lesion on 11/01/21 showed atypical ductal hyperplasia. US guided biopsy of the left breast 10:00 lesion showed fibroadenoma. MRI guided biopsy of the left breast lesion showed benign breast parenchyma with changes suggestive of a mammary hamartoma. Genetic testing on 10/18/21 was negative for JASON, BRCA1, BRCA2, CDH1, CHEK2, PALO2, PTEN and TP53 variants. She underwent egg harvesting and was started on Lupron on 11/11/21. She was started on TCH-P in November. ALLERGIES No Known Allergies PAST MEDICAL HISTORY Diagnosis Date Abnormal Pap smear of cervix Anemia with crohns Cancer (HCC) breast cancer Crohn's disease (HCC) 07/09/2013 Hypoglycemia Malignant neoplasm of left breast (HCC) 09/2021 PMH - PAST MEDICAL HISTORY OF 04/08/2004 Normal color vision PMH - PAST MEDICAL HISTORY OF 12/23/2001 Pneumonia Prior radiation therapy, collagen vascular disease, or inflammatory bowel disease: No status: Patient states there is no possibility she is at this time. Educated on risks of during treatment. PAST SURGICAL HISTORY Procedure Laterality Date COLONOSCOPY 07/09/2013 EXTRACTION ERUPTED TOOTH/EXR age 17 PAST SURGICAL HISTORY OF 07/09/2006 Cyst removal in right wrist TONSILLECTOMY PRIMARY/SECONDARY AGE 13/> 10/07/2008 US BREAST NEEDLE CORE BIOPSY LT Left 09/2021 FAMILY HISTORY Problem Relation Age of Onset Heart Maternal Grandmother triple by pass Breast Cancer Maternal Grandmother Coronary Artery Disease Paternal Grandfather Diabetes Paternal Grandfather other (DC) Paternal Grandfather age 45 Breast Cancer Other Maternal Great Aunt x2 Social History Tobacco Use Smoking status: Never Smoker Smokeless tobacco: Never Used Vaping Use Vaping Use: Never used Substance Use Topics Alcohol use: Yes Comment: Occasionally Drug use: No COMPLETE REVIEW OF SYSTEMS: GENERAL: feeling well without fatigue, no recent change in weight HEENT: denies RAE, change in hearing or vision, no other ENT complaints NECK: denies swelling or pain in neck RESPIRATORY: no cough, no wheezing or shortness of breath CARDIOVASCULAR: no chest pain, no palpitations GI: h/o Crohn's disease controlled with diet. : urination is normal MUSCULOSKELETAL: denies any painful or swollen joints, no muscle aches SKIN: no rash HEMATOLOGY/LYMPHOLOGY: negative for prolonged bleeding, no swollen lymph nodes NEURO: no numbness or paresthesias and no weakness of the extremities PHYSICAL EXAM: VS: BP 129/79 Pulse 63 Temp 36.4 C (97.6 F) (Temporal) Resp 15 Wt 66 kg (145 lb 8 oz) LMP 11/25/2021 SpO2 99% BMI 22.12 kg/m KPS: 90 General Appearance: Alert and oriented. No acute distress. HEENT: NCAT. Sclera anicteric. EOMI. Neck: Normal ROM. Chest: No respiratory distress. Breasts: About 3 cm mobile mass in the upper left breast. Abdomen: Soft. Nontender. Nondistended. Musculoskeletal: No edema. Normal ROM in extremities. Neuro: Speech fluent. Gait normal. No focal deficits. Skin: No rashes noted Lymphatics: No palpable cervical or supraclavicular or axillary adenopathy. Hematologic: No signs of active bleeding. RADIOLOGY/LABORATORY DATA: see HPI ASSESSMENT AND PLAN: 31 year old woman with cT2 cN0, invasive ductal carcinoma of the left breast now undergoing neoadjuvant chemotherapy with TCHP. She is on Lupron. I went over local therapy of early stage breast cancer. Her genetic testing was negative for known mutations. I discussed breast conserving therapy including radiation treatment vs mastectomy. I told her that in some cases, radiation treatment is indicated even after mastectomy (very large tumor and/or positive node at the time of surgery). If she desires to have breast conserving therapy, she is a good candidate for radiation treatment. I discussed the rationale, benefits, alternative management options and potential complications of radiation treatment to the patient and she understands. Thank you very much for allowing us to participate in her care. Signed by: Praful Melgar MD cc: Braden Torres DO ([facility]) [id number] [facility] [address] [place] [address] Paulina Null [id number] [facility] [id number] Chantal Ayers documented in this encounter [facility] 12-07-2021 Nurse Note Radiation Therapy - Nursing Note (Consult) PATIENT NAME: Stephen Self PATIENT December 07, 2021 [facility] FACILITY/LOCATION: [place] Chief Complaint: consult Reason for visit: Consult. Referring physician: Internal provider Dr Ayers Subjective Data: no c/o. Started chemotherapy 2 weeks ago. Additional Data Do you want to see a Jammer Operator? No Are you interested in information about fertility? No Status: Patient states there is no possibility she is at this time Stress Scale: On a scale of 0 to 10, what number best describes how much distress you have experienced in the past week?(0 being no distress and 10 being extreme distress) 4 Social work notified: Pt denied need to see social security specialist at this time. SIGNED by: Cheli Henry RN documented in this encounter [facility] 12-06-2021 Miscellaneous Notes Patient rescheduled, aware appt would be rescheduled and she would be notified at next appt. Patient would like to r/s 12/15 appt. Please call [phone] Blanka Bradshaw PSS documented in this encounter [facility] 12-01-2021 Miscellaneous Notes Left a detailed message on patient identified VM stating Dr. Ayers's response. Patient instructed to call our office if she has worsening symptoms, questions, or concerns. Krissy Beckham RN We can provide her a prescription for BMX solution if she develops more or worsening mouth sores. I do not think Crohn's disease would flare in the face of chemotherapy. Typically autoimmune disorder such as Crohn's greatly improve while going through chemotherapy. Likely the diarrhea is the typical diarrhea experienced with this combination of treatment. Agree that Neulasta along with Taxotere administration probably leading to musculoskeletal pain which should self resolve. Okay to use NSAIDs in the meantime if needed. Chantal Ayers DO Patient called today with a symptom update: Patient stated last night she noticed the tip of her tongue is red, it hurts, feels fuzzy like I burned it. Patient stated there is a white bump at the tip of her tongue. Patient has been using the baking/soda salt rinses and doesn't feel the rinse is working and/or doesn't feel she has a mouth sore. Patient denies a white coating on her tongue and also stated this does not interfere with her eating/drinking. Discussed diet, mouth care, continuing baking soda/salt rinses multiple times per day and to call with worsening symptoms. Patient stated she had 3 episodes of diarrhea yesterday, 1 episode today. Patient had cramping abdominal pain prior to her BM this morning and stated the pain resolved after the BM. Patient stated she has a h/o crohn's and has been able to manage with an anti-inflammatory diet but has been eating more inflammatory foods lately d/t getting more calories and protein in her diet and feels this has flared up the Crohn's. Patient stated she took imodium yesterday and did not have relief, she took pepto-bismol today which feels helped alleviate symptoms. Patient denies fever, chills, blood/mucous in her stool, abdominal pain since this AM, or N/V. Discussed diarrhea protocol, encouraged patient to call if she has worsening/reoccuring symptoms. Patient stated she was feeling well yesterday and she went on a walk. Today she has 7/10 aching/sore pain in her lower back and hips. Patient feels like she ran a marathon. Patient had neulasta onpro injection on 11/25/21. Patient informed she is probably experiencing neulasta pain. Patient is taking Claritin as advised. Patient informed she can take tylenol for pain, use a heating pad, soak in an epsom salt bath, and also sometimes movement/walking can help. Patient advised to call if she has worsening pain that is not alleviated by tylenol. Patient stated understanding. Patient aware this nurse will provide an update to Dr. Ayers, will call back if there are any other follow-up instructions, otherwise, patient will call this nurse with any worsening symptoms, questions, or concerns. Krissy Beckham RN documented in this encounter [facility] 11-29-2021 Miscellaneous Notes TOXICITY CHECK SYMPTOM ASSESSMENT The patient is on TCHP Headache: No, resolved with ibuprofen Visual Changes: No Dizziness: No Do you have any periods of confusion? No Mood changes: No Mouth or throat pain: No Appetite: no changes in appetite, appetite fair Taste changes: No Nausea: No Vomiting: No Heartburn: No. Weight gain/loss: No Episodes of palpitations/chest discomfort/pressure/pain No Shortness of breath: No Cough: No Diarrhea: yes, 2 episodes, has not taken any imodium. Constipation: no Bladder/Urinary Changes: None Pain: No=0 (pain 0 on a scale of 0-10). Fever: No Chills: No Cold sensitivity: No Numbness/weakness: No Edema: No Skin changes: No Itching: No Yellowing of skin or eyes: No Musculoskeletal/joint changes/issues No Bleeding issues: No Activity Level (0-100%): improving. Do you need to take naps? No Does the patient need interventions or same day appointment:No Reinforced CURRENT treatment education based on current and anticipated symptoms. Discussed port/line care and patient verbalizes understanding: Yes Patient instructed to contact office or after hours Hematology/Oncology fellow for: temperature ? 100.4; questions or concerns. Patient verbalized understanding of when to seek medical attention and after hours number protocol. Krissy Beckham RN A detailed message was left on patient identified VM. Patient instructed to call tomorrow if she continues to have a headache after taking ibuprofen. Krissy Bekcham RN Encourage her to continue adequate hydration and promethazine. She can use ibuprofen for the headache. If it does not alleviate headache by tomorrow then I will give her prescription for rizatriptan. Chantal Ayers DO TOXICITY CHECK SYMPTOM ASSESSMENT The patient is on TCHP Headache: Yes started yesterday. I woke up with a really bad headache and it hasn't gone away. Pain has dulled since yesterday, currently aching 5/10, yesterday 8-9/10 in the front forehead. Patient has been taking extra strength tylenol around the clock 2 tablets every 6 hours Patient stated she has a history of migraine headaches that correlated with her menstrual cycles and last 2-3 days. Patient stated headaches started within the last 10 years or so. Patient stated when she stopped control it helped stop the migraine pains. Patient stated she had a flare of the headaches during the fertility treatments. In the past, patient would use ice and ibuprofen if tylenol did not alleviate the pain. Patient is asking if she can take ibuprofen for headache pain. Visual Changes: No Dizziness: Yes a little bit. Patient thinks she feels dizzy with standing and walking around after taking promethazine. Do you have any periods of confusion? No Mood changes: No Mouth or throat pain: No Appetite: yesterday was poor, today is fair. Patient is trying to drink 80+ ounces per day. Discussed making milkshakes, smoothies, boost/ensure, grazing. Taste changes: No Nausea: Yes nothing sounded good. Patient took promethazine yesterday, is taking every 6 hours. Patient feels she is letting herself get too hungry which causes nausea. Vomiting: No Heartburn: No. Weight gain/loss: Unable to assess Episodes of palpitations/chest discomfort/pressure/pain No Shortness of breath: No Cough: No Diarrhea: no Constipation: no Bladder/Urinary Changes: None. Patient unsure of urine color. Pain: Headache pain Fever: No Chills: patient has had chills, afebrile. Cold sensitivity: No Numbness/weakness: No Edema: No Skin changes: No Itching: No Yellowing of skin or eyes: No Musculoskeletal/joint changes/issues Yes, mostly Sunday patient had upper body muscle pain, 8/10 constant aching in her neck and shoulders which lasted all of Sunday and into Sunday morning. Patient stated last night the pain has gotten better, resolved today. Patient was taking tylenol which didn't really do anything for it. Patient informed this was likely from the docetaxel. Patient is taking Claritin for neulasta pain. Bleeding issues: No Activity Level (0-100%): 40% Do you need to take naps? Yes; Do you wake up feeling rested? No, I think its because I just don't feel good. Patient thinks she is sleeping 8-9 hours during the night and 2-4 hours during the day. Patient stated she is able to complete her normal ADL's. Patient stated she called off work Sunday and today d/t not feeling well. Patient stated she woke up yesterday and broke out into a sweat and panicked because she felt like she was going to pass out. Patient stated she didn't eat or drinking anything and the feeling kept getting worse. Once patient was able to eat and drink the feeling subsided. Patient stated she feels not eating because nothing sounded good caused her to be nauseous. Once patient started taking the promethazine she said the nausea was alleviated and she was able to eat. Patients appetite is fair today, she is drinking 80+ ounces of fluids. Patient stated she has a little bit of dizziness with standing and walking after taking promethazine. Patient stated she woke up with a headache yesterday. I woke up with a really bad headache and it hasn't gone away. Pain has dulled since yesterday, currently aching 5/10, yesterday 8-9/10 in the front forehead. Patient has been taking extra strength tylenol around the clock 2 tablets every 6 hours Patient stated she has a history of migraine headaches that correlated with her menstrual cycles and last 2-3 days. Patient stated headaches started within the last 10 years or so. Patient stated when she stopped control it helped stop the migraine pains. Patient stated she had a flare of the headaches during the fertility treatments. In the past, patient would use ice and ibuprofen if tylenol did not alleviate the pain. Patient is asking if she can take ibuprofen for headache pain. Patient had upper body muscle pain, 8/10 constant aching in her neck and shoulders which lasted all of Sunday and into Sunday morning. Patient stated last night the pain has gotten better, resolved today. Patient was taking tylenol which didn't really do anything for it. Patient informed this was likely from the docetaxel. Patient is taking Claritin for neulasta pain. Does the patient need interventions or same day appointment: WIll provide an update to Dr. Ayers. Will ask if there is something else she can take for headache pain. Reinforced CURRENT treatment education based on current and anticipated symptoms. Discussed port/line care and patient verbalizes understanding: Yes Patient instructed to contact office or after hours Hematology/Oncology fellow for: temperature ? 100.4; questions or concerns. Patient verbalized understanding of when to seek medical attention and after hours number protocol. Krissy Beckham RN Pt returned call to Krissy. She will await a call back. Called patient to follow-up on symptoms, there was no answer, a message was left requesting a call back from patient. Krissy Beckham RN CYCLE 1/DAY 1 POST TREATMENT CALL Today's date: November 25, 2021 Treatment Regimen: TCHP C1D1 Date: 11/24/2021 Called patient to follow-up on symptom management. Spoke with patient SYMPTOM ASSESSMENT Neuro: None CV/Resp: None GI/: Constipation: yes, last BM today Integument: None Activity: Patient reported no changes in energy level, energy level fair Pain: Cramping pain, patient started her menstrual cycle and is having really bad cramps. Patient stated this is not my normal time and her cycle is off d/t the fertility preservation. Patient will try tylenol if needed for pain. Patient stated she was up most of the night last night d/t feeling restless and having hot flashes. Fever: No Chills: No Patient started her menstrual cycle and is having really bad cramps. Patient stated this is not my normal time and her cycle is off d/t the fertility preservation. Patient will try tylenol if needed for pain. Patient stated she was up most of the night last night d/t feeling restless and having hot flashes. Patient stated the hot flashes started after receiving Lupron and last night was the first night she had them frequently throughout the night. We discussed a few interventions to help manage hot flashes. Patient stated her cheeks were flushed and puffy today. Patient denies swelling of her lips, tongue, throat, or difficulty breathing or swallowing. Patient informed steroids can cause facial flushing the day after treatment. Patient will call the after hour number if she has worsening symptoms; reviewed after hour number with her. Patient stated she also felt restless last night and feels that perhaps it was the combination of the steroids and hot flashes that caused the restlessness. Discussed interventions for managing sleep issues. Patient was asked if she would like this nurse to speak to Dr. Ayers regarding a medication to help with the hot flashes and patient stated she will see how this weekend goes and this nurse will follow-up on Sunday for a symptom check. Any new referrals needed? No Reinforced CURRENT treatment education based on current and anticipated symptoms. Discussed port/line care and patient verbalizes understanding: Yes Patient instructed to contact office or after hours Hematology/Oncology fellow for: temperature ? 100.4; questions or concerns. Patient verbalized understanding of when to seek medical attention and after hours number protocol. Krissy Beckham RN Patient returned your call we was unable to reach at that time please return call to patient. CYCLE 1/DAY 1 POST TREATMENT CALL Today's date: November 25, 2021 Treatment Regimen: TCHP C1D1 Date: 11/24/2021 Called patient to follow-up on symptom management, no answer, left VM requesting a call back from patient. Krissy Beckham RN documented in this encounter [facility] 11-27-2021 Miscellaneous Notes Patient received TCHP on 11/24/2021. Sh did not eat anything this morning. She felt like there was moment that she was near passing out. Yesterday per had fair oral fluid and food intake. The patient will take to ER if recurrent illness or near passing out. I encouraged patient to eat and keep adequate hydration. Jami Pompa MD November 27, 2021 11:43 AM documented in this encounter [facility] 11-24-2021 Miscellaneous Notes Returned call to [facility] Specialty pharmacy confirmed that fertility treatments are completed and can be discontinued. Medication management transferred to the oncology team and Dr. Ayers. Sarah Garcia RN November 24, 2021 12:08 PM Called the patient there was no answer Left a message to call the office Margy Williamson RN November 21, 2021 1:21 PM documented in this encounter [facility] 11-23-2021 Miscellaneous Notes Working Cancer [facility]. Patient is active with [employer], LOC 90%, $2800 deductible has $0 remaining, $4300 OOP has $0 remaining. Estimate shows patient financial responsibility is $0 for each treatment in [facility] until oop max is reached. Reference #[id number]. There are no open foundations for Dx. Called patient to discuss, no answer, left vm for return call. documented in this encounter [facility] 11-19-2021 History of Present illness Narrative IVF freeze all cycle. EARNEST Reyes November 19, 2021 11:57 AM documented in this encounter [facility] 11-19-2021 Miscellaneous Notes Patient called by lab to give update on embryos. One more embryo was frozen on day 6. EARNEST Reyes November 19, 2021 11:49 AM Patient called by lab to give update on embryos. 2 embryos frozen today, day 5. Left detailed message. Megan Colindres November 18, 2021 10:22 AM Patient called by lab to give update on embryos. Left detailed message. Alexus Fede November 17, 2021 9:18 AM Patient called by lab to give update on embryos. Left detailed message Day 2, all 3 embryos are at the 4 cell. Alexus Bellagler November 15, 2021 9:06 AM Patient called by lab to give fertilization results. Left detailed message 3 fertilized. 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 MRI showed 2 satellite lesions. 2nd look performed and [address] appeared normal. ER+VA+HER2+ [id number] US showed a LEFT breast mass 0.6 cm x 0.7 cm x 0.4 cm at 10 o'clock posterior depth 3 cm from the nipple (correlated to MRI finding). Breast, left, at 10:00, 3 cm from the nipple, Q clip, ultrasound-guided core biopsy: Fibroadenoma. CONCORDANT LEFT stereotactic guided biopsy was performed for the concerning area of grouped calcifications located in the left breast upper outer aspect. This was described on the previous mammography report. Breast, left, upper outer aspect, calcifications, Twirl clip, stereotactic core biopsy: Atypical ductal hyperplasia (ADH), Microcalcifications are present in ducts adjacent to ADH. CONCORDANT LEFT MRI biopsy (of the 2nd lesion) was performed for the concerning enhancing mass located in the left breast upper inner aspect. Breast, left, Hourglass clip, MRI-guided core biopsy: Benign breast parenchyma with changes suggestive of a mammary hamartoma. DISCORDANT Plans for neoadjuvant chemotherapy at this point. All suspicious areas on imaging have been appropriately biopsied. Paulina Null DO Breast Surgeon documented in this encounter [facility] 11-15-2021 Miscellaneous Notes Rx printed and signed. In top drawer at [facility] for pt picker. Pt aware. Tiffany Mckinney LPN Printed. Chantal Ayers DO [facility] and is asking for a script to take with her for a wig. documented in this encounter [facility] 11-15-2021 Miscellaneous Notes Called patient to notify the breast pathology results were benign but discordant per Dr. Valdovinos. Breast surgical consult is recommended but patient declined at this time. Patient will consult with Dr. Ayers and patient will call if needed surgical consult per Dr. Ayers. documented in this encounter [facility] 11-15-2021 Miscellaneous Notes Message left on identified voicemail, also sent message via my chart. Em Duff LPN Yes, can be drawn from port--she was going to have one placed by Dr. Baker at [facility]. Chantal Ayers DO Patient had lab draw on November 08. Patient scheduled for labs/office visit/tx on November 23 and . Patient asking if she needs another lab draw on November 23? Please advise and call patient. Thank you documented in this encounter [facility] 11-13-2021 History of Present illness Narrative Retrieval procedure performed. Detailed notes can be found in the paper chart in the [facility]- [employer] SPECIALIST Office. Alta Roca documented in this encounter [facility] 11-12-2021 History of Present illness Narrative Component Latest Ref Rng & Units 11/12/2021 Progesterone See comment ng/mL 3.6 LH See comment mIU/mL 81.2 Ok to proceed with retrieval per Dr. Raymond. Alexandria Chen RN November 12, 2021 11:25 AM documented in this encounter [facility] 11-11-2021 Miscellaneous Notes Scheduled as directed and left voicemail notifying patient to check MyChart for upcoming appointments. Paulina Chang Tuesday 12/12 would be 30 days, so to be on the safe side lets schedule it for Saturday 12/09. Chantal Ayers DO Lupron Depot 3.75 mg IM once every month has been recommended. First dose will be on 11/13/2021 given at the fertility clinic. Her next dose should be no more than 30 days later. It can be given a few days earlier for patient convenience. It can be ordered through [facility] and dispensed and given at the infusion center. Sarah KIRKLAND, RN Fertility Preservation Interlibrary [employer] Services Librarian Please clarify - Tuesday 12/12 or Saturday 12/09? Paulina Chang Just heard back--she should begin monthly Lupron injections here Saturday 12/09. Chnatal Ayers DO Per fertility clinic recommendations, Stephen will need to receive monthly Lupron injections during the course of her neoadjuvant chemotherapy (she will also require monthly injections throughout the 5-7 year course of aromatase inhibitor therapy she will require following surgery). I placed an order so we can proceed with prior authorization. I am not sure as of yet exactly what day she will need to start injections. Waiting to hear from fertility clinic on when she is going to get the first 1 so we know how to time the second and subsequent injections. Chantal Ayers DO documented in this encounter [facility] 11-11-2021 Miscellaneous Notes Opened in error documented in this encounter [facility] 11-10-2021 History of Present illness Narrative Radiology Service Progress Note DATE OF SERVICE: November 10, 2021 TIME: 1:38 PM PATIENT IDENTITY VERIFICATION COMPLETED USING TWO (2) STANDARD IDENTIFIERS: Name and Date of confirmed by patient verbally and Name and Date of confirmed by identification band. FALL SCREENING: Has the patient had 2 falls in the last year or 1 fall with injury or currently using an Ambulatory Assistive Device (Walker, Cane, Wheelchair, Crutches, etc.)? No PATIENT GENDER DATA: Female. status: : No status: NO. PATIENT RELEVANT IMPLANT DATA REVIEWED: Yes ALLERGIES: Reviewed and unchanged CONTRAST ALLERGY: NO. EXAM: MRI - CONTRAST TYPE: GROUP II PERIPHERAL IV DATA: Ambulatory: A peripheral IV was started in the Right antecubital site with a Angio cath: 22 gauge. RADIOLOGY DEPARTMENT: MR; Exam(s) Completed: Chest: Breast LT Biopsy SIGNATURE: RT Mann(R) PATIENT NAME: Stephen Self DATE: November 10, 2021 TIME: 1:38 PM documented in this encounter [facility] 11-10-2021 History of Present illness Narrative Patient of seen today for ultrasound and bloodwork as part of oncofertility cycle. Reviewed allergies, updated medication list, confirmed pharmacy as [facility] . She is complaining of severe throbbing headache 8/10 on pain scale, no aura, no visual disturbance noted, not sensitive to light some nausea no vomiting. started 4 days after beginning Follisitim.comes and goes. Took acetaminophen 1000 mg without relief. Last night 11/09/2021 took ibuprofen 400 mg and had relief. Has not taken any medication today. Ultrasound and blood results reviewed by the physician at the afternoon meeting and plan communicated to the patient. Patient advised to to make sure that she has enough medication to get to her next appointment. There are refills on her prescriptions. Sarah Garcia RN Spoke to pt. Reviewed plan to continue follistim 250 units SQ and letrozole 5 mg PO in the evening and Cetrotide 1 kit SQ in the morning. RTC 11/11/2021 at 0645 for US and labs. Pt reports no headache currently. Dr. Foley has advised not to take NSAIDS but instead take acetaminophen 1000 mg PO and use ice, and rest and other comfort measures. Advised her to call the MD on-call if symptoms worsen or if she has visual changes. Pt. Agreeable. Sarah Garcia RN November 10, 2021 4:22 PM documented in this encounter [facility] 11-09-2021 Note HNO ID: [id number] Author: Vicki Call RN Service: ? Author Type: Registered Nurse Type: Progress Notes Filed: 11/16/2021 10:49 AM Note Text: The patient is here today for follicular ultrasound and blood work. The patient reports no problems or complaints. Ultrasound and blood will be reviewed by the physician, the flow sheet will be updated and instructions will be communicated to the patient. Vicki Call RN Attempted to call, LVM Plan given for IVF cycle per physician, see flowsheet for details. benchee message sent. Message sent to scheduling pool for next appt. Vicki Call RN November 09, 2021 1:46 PM [facility] 11-09-2021 History of Present illness Narrative The patient is here today for follicular ultrasound and blood work. The patient reports no problems or complaints. Ultrasound and blood will be reviewed by the physician, the flow sheet will be updated and instructions will be communicated to the patient. Vicki Call RN Attempted to call, LVM Plan given for IVF cycle per physician, see flowsheet for details. benchee message sent. Message sent to scheduling pool for next appt. Vicki Call RN November 09, 2021 1:46 PM documented in this encounter [facility] 11-08-2021 Miscellaneous Notes Confirmed pt by name and Reviewed plan to continue same doses of medication confirmed that she will have US and e2 at [facility] [place] location. [facility] order[facility]. [phone] For gonal-F 900 units x 2, cetrotide x 5, lupron for trigger. Pt. Should arrange for home delivery. Sarah Garcia RN November 08, 2021 1:40 PM documented in this encounter [facility] 11-08-2021 Miscellaneous Notes Chemo has been canceled. Decadron and promethazine were discontinued under medication list and medications were not dispensed. Added emla cream to orders. Please resend to [facility] in [place]. Thank you. PSRs- please cancel chemotherapy next week. Per patient, she still has 1-2 weeks left with fertility conservation and will need an additional biopsy. Patient instructed to contact Dr. Null's office to schedule the biopsy, she stated understanding of this. Patient will contact our office once she has a better time frame on starting chemotherapy. Patient aware this nurse will leave treatment scheduled for 12/[address] Ayers is hoping to start her prior to then. Krissy Beckham RN documented in this encounter [facility] 11-07-2021 Nurse Note This visit was completed via telephone. Krissy Beckham RN ONCOLOGY PATIENT EDUCATION NOTE TOPIC: Chemotherapy, Medications: TCHP- neulasta READINESS TO LEARN: COGNITIVE ABILITY: Alert and oriented MOTIVATION TO LEARN: Interested FAMILY SUPPORT: Unable to assess - Family not present INSTRUCTION PROVIDED TO: Patient INSTRUCTION PROVIDED BY: Nurse Coordinator PATIENT LEARNS BEST BY: Multiple Methods FACTORS AFFECTING LEARNING: None PHYSICAL LIMITATIONS AFFECTING LEARNING: None LEARNING RESPONSE DIAGNOSIS: Breast Cancer METHOD OF INSTRUCTION: Individual instruction Written instruction - handouts Verbal instruction PATIENT/FAMILY RESPONSE: Verbalizes understanding of: CHEMOTHERAPY-Regimen, toxicity and side effects FOLLOW UP PLAN: Patient instructed to call with any further issues Recommend - Recommend continued instruction and follow up as directed Follow up phone call. Contact information given. SUPPLEMENTAL MATERIAL: Written material was provided at this visit with the following information: - Chemotherapy education was provided by a pharmacist NO - Side effect management information was provided/discussed including but not limited to: abdominal discomfort, anemia, appetite changes, arthralgia, diet, electrolyte disturbances, fatigue, hair loss, hypersensitivity reaction, infection, mouth hygiene, mucositis, myalgia, nausea/vomitting, neuropathy, neutropenia, peripheral neuropathy, rash, risk for DVT, shortness of breath, skin changes, taste changes YES - Provided important phone numbers and contacts during and after hours. YES - Provided information on symptoms that require immediate assistance. YES - Provided Chemotherapy when to call handouts YES - Preventing infection. YES - Treatment schedule and confirmation of appointment times. YES - Available support groups. YES - The importance of contraception during the course of chemotherapy YES - Neutropenic fever protocol discussed with patient, which included the importance of reporting any fever of 100.4F (38.0C) or greater to the healthcare team as noted on the provided wallet card and/or magnet. YES Time Spent: 55 minutes REFERRAL (RECOMMENDATION): Social Work Krissy Beckham RN Interlibrary Loan Services Librarian Pre Chemo Patient identified by name and date of . YES Confirmed date and time for chemotherapy ? YES Other appointments (labs, imaging) discussed? YES Discussed where to park (meter reading clerk), charge for parking YES Discussed where to report (building/floor) YES Any pre-medications ordered? YES Described the infusion room and what to expect. (What to wear, what to bring [iPad, books] amount of time treatment can take, meals and CC options for food) YES Note: Discussed whether the patient can eat prior to labs and treatment. YES Who is driving you to and from treatment? Spouse Discussed why it is important to bring someone with you. Yes, for the first treatment Resources discussed (music therapy, Art therapy, pet therapy, etc.) NO Education on chemotherapy (drug, side effects) discussed and that the patient will be receiving a C1D1 call within 7 days of treatment. YES Other topics discussed, interventions needed: Krissy Beckham RN documented in this encounter [facility] 11-07-2021 Miscellaneous Notes Called and left a voice mail message that her case was presented as tumor board. The radiologist reviewed the case and if the patient still wants conservation then she does need a second MRI biopsy of the medial lesion in the LEFT breast. Instructed to call the office to schedule or discuss further [phone]. Dr. Null documented in this encounter [facility] 11-06-2021 History of Present illness Narrative The patient is here today for follicular ultrasound and blood work. The patient reports no problems or complaints. Ultrasound and blood will be reviewed by the physician, the flow sheet will be updated and instructions will be communicated to the patient. Max White RN called patient, name and verified. Plan given for IVF cycle per physician, see flowsheet for details. [employer] message sent. Medications reviewed and verified, instructions given. Patient denies any questions or concerns. Message sent to scheduling pool for next appt. Max White November 06, 2021 11:53 AM documented in this encounter [facility] 11-04-2021 Miscellaneous Notes Multiple calls and left message for patient in regard to the breast biopsy results done on 11/[address] Valdovinos. Received voice mail from Dr. Null's nurse (Sherry) that Dr. Null will call patient with results. documented in this encounter [facility] 11-03-2021 Miscellaneous Notes Schedule updated. Patient called stating she would like to reschedule her chemo edu appointment. Patient asking for a call after work on Sunday. Please schedule patient for a chemo edu on Sunday, this nurse will call her at 4:00 pm. Krissy Beckham RN documented in this encounter [facility] 11-01-2021 History of Present illness Narrative Patient and her mother seen today for baseline ultrasound and bloodwork as part of oncofertility preservation cycle prior to gonadotoxic treatment for barest cancer. Reviewed and signed consent forms for IVf and embryo cryopreservation. Reviewed process timeline and protocol for follicular stimulation. Demonstrated SQ injection technique for Gonla-F pen, Cetrotide, and lupron trigger. Verbal orders placed to [facility] specialty pharmacy for Gonal-F, Cetrotide, and leuprolide. Pt [facility] to [facility] and schedule delivery of medications. Plan to start stimulation with FSH 250 units SQ when medication is delivered. Will send detailed MC with medication instructions and plan. Sarah Garcia RN November 01, 2021 3:44 PM documented in this encounter [facility] 11-01-2021 Instructions Sarah Garcia RN - 11/01/2021 1:26 PM EDT Consent Laboratory for In vitro fertilization (IVF) and Embryo transfer 1. We, (Patient) and (Partner) hereby authorize and direct the physicians of the IVF program and such assistants as may be selected by them, to treat us in accordance with the IVF protocols and we hereby consent to such treatment. 2. We understand that the following is a possible outline of the IVF procedures which will be followed: a. Administration of medications to assist patient s ovulation. b. Frequent blood tests and ultrasound studies to determine development of oocytes (eggs). c. Admission to the procedure area for oocyte (egg) retrieval when patient's stimulation process is at the appropriate stage as determined by the physicians of the IVF team in order to obtain oocytes (eggs) from patient's ovaries d. Fertilization of the patient's oocytes (eggs) with sperm. All eggs will be fertilized unless we specifically notify the IVF team otherwise. e. Transfer of embryo(s) into the uterus. f. Cryopreservation (freeze) of the embryos. 3. We hereby agree and acknowledge that any egg/ embryo(s) which the IVF team determines in the exercise of reasonable medical judgment is nonviable (i.e. not capable of implanting and giving rise to live offspring) or otherwise not medically suitable for continued use in the IVF program may be disposed of in accordance with the [facility] standard policies. These eggs/embryos may be used for teaching the technical staff in the IVF laboratory new techniques. The same applies to discarded sperm specimens. We understand we can elect not to have these egg/embryos used for teaching. Our decision will not compromise our IVF procedure in any way. If all embryos are not transferred, we understand that we may elect to have the excess embryos frozen if they are appropriate for freezing. We realize that often extra embryos are not appropriate for freezing and therefore having extra embryos initially does not necessarily mean there will be embryos frozen. If we elect not to implant all embryos and not to have any such excess embryos frozen, then we agree and acknowledge that all such embryos may be disposed of in accordance with the [facility] standard policies. If there are an exceedingly large number of eggs and/or we do not want all eggs fertilized, it may be suggested that we have some eggs frozen. 4. We understand that backup frozen sperm is discarded after 3 years. In cases of severely compromised sperm the patient can opt to continue cryopreservation for a yearly storage fee. 5. We understand that insurance coverage for any or all of the above procedures may not be available and that we are personally responsible, individually and collectively, for all medical and hospital expenses incurred in connection with the IVF procedures and any and . We understand that pre-payments are necessary before the first blood test or ultrasound is done or we may not proceed further with the treatments (a letter confirming insurance coverage may be considered in lieu of prepayment). 6. We understand that we are free to discontinue participation in the program at any time. We understand that if we decide to discontinue participation in the IVF program, we will be personally responsible for all expenses incurred during the period of time prior to such discontinuation and which relate to our treatment in the IVF program. 7. We understand that this consent extends from the original period of our participation in the IVF Program until the Program is completed or until we decide to discontinue participation. 8. We understand that should the results of our treatment or any aspect of it be published in medical or scientific journals, all possible precautions will be taken to protect our anonymity. We cheryl permission to the IVF team to publish statistics relating to our case in professional journals, provided our names are not used. 9. We have read and understand the IVF information. We have also been counseled by the IVF team concerning the IVF Program and our participation in it. 10. We certify that each of us is at least 18 years of age. 11. We have read and understand this consent form. All questions we asked have been answered in a satisfactory manner. ____ Patient Social Security # Date In addition to consenting for the above, I also give my permission to use my frozen sperm for the procedure. This consent will be in effect until the sperm is disposed of by the laboratory and/or I withdraw my permission. ____ Partner Social Security # Date _ __ Witness to both signatures Date REVISED 04/2021 INFORMED CONSENT - EMBRYO and OOCYTE CRYOPRESERVATION This Informed Consent Form is being signed in conjunction with a Consent for In Vitro Fertilization (IVF), attached. Its purpose is to inform you about embryo and oocyte cryopreservation Embryo cryopreservation Embryo cryopreservation (or freezing) is a technique routinely performed in our laboratory to store embryos resulting from IVF for future transfer into a patient s uterus. Embryo freezing gives excellent outcomes with no adverse results that we are aware of. Embryos can be frozen indefinitely Only high quality embryos are considered suitable for cryopreservation and are likely to survive the freeze/thaw process. Not all patient embryos will develop sufficiently to allow freezing to take place. Moreover, even with a high number of embryos at the start of culture there is no guarantee that there will be embryos frozen. If embryos are frozen the embryos will be stored in the in vitro fertilization laboratory in the frozen condition until such time as the physician responsible for your care determines appropriate conditions exist in the Patient s body for transfer of the embryo to the Patient s uterus and the Patient desires placement of the embryos in her uterus. At that time, some or all of the embryos will be thawed. Each embryo will be examined to determine whether it is medically appropriate to transfer into the uterus and, if so, the transfer of embryos will occur. If, after thawing, the embryo does not grow, that embryo will not be transferred. As with any technique that requires system support there is a small risk of equipment failure. However, back-up freezer systems and/or liquid nitrogen holding facilities are available to decrease the likelihood of any malfunction; but unforeseen situations could occur which are out of the control of the IVF Team. Oocyte (Egg) cryopreservation Patients may elect to have mature oocytes frozen. These oocytes are cryopreserved without fertilization. Immature oocytes are not cryopreserved. At some point in the future, after consultation with a doctor the patient can elect to have some or all oocytes thawed and fertilized with partner (or donor sperm). Embryo (s) can be transferred to the patient s uterus and excess embryos will be cryopreserved as described above. Success rate with frozen eggs depends on patient age at freeze, egg quality and sperm quality. The risks of egg freezing are the same as described above for embryo freezing. In Vitro Fertilization and embryo cryopreservation and transfer are areas in which legal principles and requirements, including those relating to ownership, control, and custody of frozen embryos, have not been completely established. Because of the uncertainty in the law, the Patient and Partner express, as follows, their directions regarding rights to the frozen embryo(s) in the event of the of either/both the Patient or Partner or the termination of the parties' relationship. In the event that, prior to implantation of the frozen embryo(s), we terminate our relationship, we hereby agree that: The frozen embryos are the sole property of , (Choose one: Patient or (Partner), who may dispose of them as she/he sees fit. The frozen embryo(s) will be destroyed. The frozen embryo(s) may be donated to another person. The frozen embryo(s) may be donated to research. These are not legally binding documents and ownership of the embryos should be clearly delineated in your divorce documents. In the event that, prior to implantation of the frozen embryo(s), (Patie nt) dies, we hereby agree that the embryo(s) shall be (specify) . In the event that, prior to implantation of the frozen embryo(s), (Partn er) dies, we hereby agree that the embryo(s) Shall be (specify) . In the event that, prior to implantation of the frozen embryos, both Patient and Partner , they hereby agree that (check one): The embryo(s) may be donated to research. The embryo(s) may be donated to another person. The embryo(s) will be destroyed. If you decide to change your directions on rights to frozen embryo(s), please let us know as soon as possible. Please be sure to tell us when you have a new telephone number or address. If we are unable to contact you at your last address, we will keep the frozen embryo(s) for at least three years. After that, a decision on disposal may be made in accordance with standards of the [place] [employer], as well as any applicable local, state, and federal laws. After 3 years the [facility] has the right to transfer your frozen embryos to an off-sight facility not associated with the [facility] at YOUR expense. You are free to choose an alternate facility to which to transfer your frozen embryos. You are making a decision whether or not to participate in embryo or oocyte cryopreservation. Your signature on this informed consent form indicates that you read and understood the information provided in this form about the procedure, that you have been verbally informed about the procedure, that you have had a chance to ask questions, and that you consent to the procedure described above. __ PATIENT DATE TIME __ PARTNER DATE TIME ___ WITNESS DATE TIME REVISED 04/2021 documented in this encounter [facility] 11-01-2021 Note HNO ID: [id number] Author: RT Chandra(R) Service: Radiology Author Type: Alteration Manager Type: Progress Notes Filed: 11/01/2021 11:30 AM Note Text: Radiology Service Progress Note PATIENT NAME: Stephen Self DATE OF SERVICE: November 01, 2021 TIME: 11:29 AM PATIENT IDENTITY VERIFICATION COMPLETED USING TWO (2) IDENTIFIERS: Name and Date of confirmed by patient verbally. FALL SCREENING: Has the patient had 2 falls in the last year or 1 fall with injury or currently using an Ambulatory Assistive Device (Walker, Cane, Wheelchair, Crutches, etc.)? No PATIENT GENDER DATA: Female. status: : No status: NO. PATIENT RELEVANT IMPLANT DATA REVIEWED: Yes RADIOLOGY DEPARTMENT: MR; Exam(s) Completed: Chest: Breast PERIPHERAL IV DATA: BREAST CLIP PLACEMENT ONLY SIGNED BY: RT Chandra(R) November 01, 2021 11:29 AM [facility] 11-01-2021 Note HNO ID: [id number] Author: Pearl Gillsi Service: Radiology Author Type: Alteration Manager Type: Progress Notes Filed: 11/01/2021 9:39 AM Note Text: Radiology Service Progress Note PATIENT NAME: Stephen Self DATE OF SERVICE: November 01, 2021 TIME: 9:38 AM PATIENT IDENTITY VERIFICATION COMPLETED USING TWO (2) IDENTIFIERS: Name and Date of confirmed by patient verbally. FALL SCREENING: Has the patient had 2 falls in the last year or 1 fall with injury or currently using an Ambulatory Assistive Device (Walker, Cane, Wheelchair, Crutches, etc.)? No PATIENT GENDER DATA: Female. status: : No status: NO. PATIENT RELEVANT IMPLANT DATA REVIEWED: Not Applicable RADIOLOGY DEPARTMENT: Biopsy, Mammography and Ultrasound PERIPHERAL IV DATA: Not applicable SIGNED BY: Pearl Gillis November 01, 2021 9:38 AM [facility] 11-01-2021 History of Present illness Narrative Radiology Service Progress Note PATIENT NAME: Stephen Self DATE OF SERVICE: November 01, 2021 TIME: 11:29 AM PATIENT IDENTITY VERIFICATION COMPLETED USING TWO (2) IDENTIFIERS: Name and Date of confirmed by patient verbally. FALL SCREENING: Has the patient had 2 falls in the last year or 1 fall with injury or currently using an Ambulatory Assistive Device (Walker, Cane, Wheelchair, Crutches, etc.)? No PATIENT GENDER DATA: Female. status: : No status: NO. PATIENT RELEVANT IMPLANT DATA REVIEWED: Yes RADIOLOGY DEPARTMENT: MR; Exam(s) Completed: Chest: Breast PERIPHERAL IV DATA: BREAST CLIP PLACEMENT ONLY SIGNED BY: RT Chandra(R) November 01, 2021 11:29 AM documented in this encounter [facility] 11-01-2021 History of Present illness Narrative Radiology Service Progress Note PATIENT NAME: Stephen Self DATE OF SERVICE: November 01, 2021 TIME: 9:38 AM PATIENT IDENTITY VERIFICATION COMPLETED USING TWO (2) IDENTIFIERS: Name and Date of confirmed by patient verbally. FALL SCREENING: Has the patient had 2 falls in the last year or 1 fall with injury or currently using an Ambulatory Assistive Device (Walker, Cane, Wheelchair, Crutches, etc.)? No PATIENT GENDER DATA: Female. status: : No status: NO. PATIENT RELEVANT IMPLANT DATA REVIEWED: Not Applicable RADIOLOGY DEPARTMENT: Biopsy, Mammography and Ultrasound PERIPHERAL IV DATA: Not applicable SIGNED BY: Pearl Gillis November 01, 2021 9:38 AM documented in this encounter [facility] 10-31-2021 Miscellaneous Notes Oncofertility Nurse Teaching Appointment via Telephone. Confirmed pt by name and Interested in fertility preservation prior to cancer treatment for left Invasive ductal carcinoma, nuclear grade 2 (0.8 cm in greatest length). Ductal carcinoma in situ. Planned start of cancer treatment 12/06/[address] Foley for an LANEY consult on 10/28/2021 Reviewed consent forms and will send via . Review financial information and insurance with Scarlet Cabrera [facility]21 Reviewed protocol Episode created y Orders pended y To Do list:: STD x 2 Myriad x2 Consent forms Will plan for follicular ultrasound and labwork and medication teaching 11/01/2021 at 0745 Sarah Garcia RN October 31, 2021 11:35 AM Confirmed pt by name and Interested in proceeding with stimulation and embryo cryopreservation prior to cancer treatment. LMP 10/18/2021 Will pend orders for labs and medication and create episode. Sarah Garcia RN October 31, 2021 10:09 AM Call to [phone] Left message on with my contact information to discuss fertility preservation cycle. Sarah Garcia RN October 31, 2021 9:14 AM Call to emergency contact to confirm interest in fertility cycle. Left message on Sarah Garcia RN October 31, 2021 9:19 AM documented in this encounter [facility] 10-29-2021 Miscellaneous Notes Schedule adjusted as directed. Paulina Chang Per Dr. Ayers, labs can be straight back on C1D1. Patient will need chemo edu completed prior to starting treatment. Krissy Beckham RN Patient was rescheduled for / echo at 9:40, chemo ed at 10:30 and lab work 11:30 Left message for patient to return call. When patient calls, please reschedule 11/01 echo/lab appointments and offer to reschedule 11/01 chemo education. Once rescheduled, document and route this note to P [facility] HEM/ONC PSR. Paulina Chang Patient is scheduled for biopsies next Sunday. Port placement is Sunday. Please contact patient to reschedule ECHO/labs and ask if she would like to keep her chemo edu as scheduled or reschedule. Thank you. Krissy Beckham RN We are going to have to see if that biopsy can be moved up. She cannot wait until after 11/16 to start chemotherapy. Chantal Ayers DO Adjusted scheduled as directed. Chemo C1 & C2 scheduled. Paulina Chang Patient will have port placed 10/31/21, please schedule C1D1. Echo 11/01/21. Patient requesting to have labs after echo, please schedule. Patient aware to go to lab after ECHO is completed around 11:30. Please put patient on chemo edu schedule for next Sunday at 1:30 pm. Patient stated the US guided bx is scheduled for 11/16/21. Krissy Beckham RN Pt is getting port placed on 10/31/21. Is it okay to have the Echo on 11/01/21. Pt would like to know if 10/27/21 appts could be same date as echo so she can only come in on one date to save time off from work. documented in this encounter [facility] 10-28-2021 Instructions Jam Foley MD - 10/28/2021 5:26 PM EDT [facility] [employer] [facility] [place] [address] [facility] [address] [facility] Financial Information Dear Patient: We would like to make sure you have all the information you need regarding your financial responsibilities for In-Vitro Fertilization services. If your insurance covers IVF services you will need to provide a letter confirming coverage for the services. If your insurance plan does not cover IVF, we will need you to pay a deposit prior to beginning the IVF process or starting any IVF medications. The deposit amount is paid in full in the amount of $ 6,558.00 the deposit is due before baseline. For your convenience, payment may be made with checks, money order or credit card. If the cycle is cancelled, refunds will be processed after satisfying any open balances pertaining to IVF services. Scarlet Cabrera is our onsite IVF Coordinator and is available to you for any financial questions. She may be reached at . If the cycle is cancelled, refunds will be processed after satisfying any open balances pertaining to IVF services The package sidhu above includes: Follicular Monitoring US (CPT 43122) up to 5 Insemination of oocytes (CPT 78581) Nurse Monitoring Visits (CPT 74162) up to 5 Assisted Fertilization (CPT 83024 or 56753) Ultrasound Guidance for retrieval (CPT 06079) Cryopreservation Embryo(s)- CPT 81303 Retrieval of oocytes (CPT 52998) Anesthesia Services Culture of oocytes (CPT 19198) Embryo Storage Fee 1st Year (CPT 22482) The package sidhu above does NOT include: Description CPT Charge MD Office Visit(s) 44417-87216 / 85012-79556 $ 100.00 - $874.00 Lab Work & Lab Draw Fee Varies per patient Average sidhu is $ 1,400.00 Medications Varies per patient Average Charge $ 2,800.00 Yearly storage fee $ 577.00 This is an estimate of your ted-ri-fltovb costs for the planned services. It is not a guarantee of your final bill which can change due to treatment plan changes. 2021 [facility] IVF 07/09/21 documented in this encounter [facility] 10-28-2021 History of Present illness Narrative Consult from: oncology Stephen Self is a 31 year old.G 0 P 0 Ab 0 She presents with complaint of breast cancer. She will be exposed to chemo durgs soon. She stopped ocps one year ago. LH surge day 17. Last crohn's flare was this past year. Invasive ductal carcinoma of the left breast. ER +, VA variable and Her2 Positive. Stage 2 cancer, neoadjuvant therapy is recommended with TCHP. Menstrual Hx: Menarche: 17 Cycle length: 28 days Duration: 3-5 days Flow: medium Other: cramps Patient's last menstrual period was 10/18/2021. Past Medical Hx: PAST MEDICAL HISTORY Diagnosis Date Crohn's disease (HCC) 07/09/2013 Hypoglycemia Malignant neoplasm of left breast (HCC) 09/2021 PMH - PAST MEDICAL HISTORY OF 04/08/2004 Normal color vision PMH - PAST MEDICAL HISTORY OF 12/23/2001 Pneumonia Past Surgical Hx: PAST SURGICAL HISTORY Procedure Laterality Date COLONOSCOPY 07/09/2013 EXTRACTION ERUPTED TOOTH/EXR age 17 PAST SURGICAL HISTORY OF 07/09/2006 Cyst removal in right wrist TONSILLECTOMY PRIMARY/SECONDARY AGE 13/> 10/07/2008 BREAST NEEDLE CORE BIOPSY LT Left 09/2021 Social History Tobacco Use Smoking status: Never Smoker Smokeless tobacco: Never Used Vaping Use Vaping Use: Never used Substance Use Topics Alcohol use: Yes Comment: Occasionally Drug use: No Review of Systems: General: No weight loss, malaise or fevers Respiratory: No cough, hemoptysis, asthma, recent chest infection, wheezing Cardiovascular: No history of chest pain, palpitation, orthopnea, cyanosis, pedal edema Gastrointestinal: No blood in stool, pain with BM, tarry stool, persistent diarrhea or constipation Genitourinary: negative Endocrine: No history of thyroid disorder, diabetes, cold intolerance, heat intolerance, polydypsia Musculoskeletal: Negative I have reviewed the above past medical history and review of systems as completed by my RN. TOPICS DISCUSSED: 1. Optimization of health prior to stimulation discussed Yes 2. Dropped cycles discussed: Yes 3. Hyperstimulation discussed: Yes 4. Ovarian reserve testing discussed: Yes 5. Freezing embryos / eggs: Yes 6. Potential for no transfer: Yes 7. Surgical procedure & complications discussed: Yes 8. Discussed information regarding ICSI: Yes 9. Team of physicians discussed: Yes Assessment- fertility preservation, stage breast cancer Plan- will come in on Sunday for scan and E2 and P4. Likely start meds in the next 2-3 days (when in luteal phase) with FSH. She has port scheduled on Sunday so she may call on Sunday to proceed with process. Will get her GnRh agonist treatment via her oncology team. R/B/A were discussed at length with them. Luteal phase antagonist start with letrozol. I spent a total of 35 minutes on the date of the service which included preparing to see the patient, [id number]-caek patient care, completing clinical documentation and counseling and educating the patient/family/caregiver. Jam Foley MD documented in this encounter [facility] 10-25-2021 Miscellaneous Notes Met with patient and introduced myself. Patient was given a My Journey binder with chemocare information, office contact information, thermometer, and additional chemotherapy resource booklets. Patient aware this nurse will review on scheduled appointment date on 10/27/21. Krissy Beckham RN documented in this encounter [facility] 10-25-2021 History of Present illness Narrative Radiology Service Progress Note PATIENT NAME: Stephen Self DATE OF SERVICE: October 25, 2021 TIME: 2:41 PM PATIENT IDENTITY VERIFICATION COMPLETED USING TWO (2) IDENTIFIERS: Name and Date of confirmed by patient verbally. FALL SCREENING: Has the patient had 2 falls in the last year or 1 fall with injury or currently using an Ambulatory Assistive Device (Walker, Cane, Wheelchair, Crutches, etc.)? No PATIENT GENDER DATA: Female. status: : No status: NO. PATIENT RELEVANT IMPLANT DATA REVIEWED: Not Applicable RADIOLOGY DEPARTMENT: Mammography PERIPHERAL IV DATA: Not applicable SIGNED BY: JES Castillo October 25, 2021 2:41 PM documented in this encounter [facility] 10-25-2021 History of Present illness Narrative Oncologic problem(s): 1) HER2 positive breast cancer. HPI: The patient is a 31-year-old female with a past medical history significant for Crohn's disease (dx 2013), vitiligo and dysmenorrhea. She self discovered a mass in the left breast. She underwent a bilateral diagnostic mammogram on 10/04/2021. The breasts were noted to be extremely dense lowering the sensitivity of the mammography. The palpable abnormality however corresponded to a 1.2 x 1.4 cm spiculated nodule in the deep lateral axillary region of the breast. Microcalcifications were identified within it. Patient underwent ultrasound of the breast on the same day. In the left breast corresponding to the palpable abnormality there was a 1.3 x 1.3 x 1.1 heterogeneous hypoechoic solid mass with microcalcifications at the 1 o'clock position of the breast 8 cm from the nipple. Increased vascularity was observed. Patient was referred to Dr. Farrar. She underwent a left core needle biopsy on 10/07/2021. 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 VA variable 10 to 50%, moderate intensity. HER-2/chaz 3+ IHC. Regular menses. OCPs starting age 17. Stopped age 30 to try to get . Stopped trying to get because had flare of Crohn's. Generalized itching all over--started last April. Triggered by heat (showever). Injured coccyx snowboarding in high school. Hurting more lately. Crohn's under control with anti-inflammatory diet. Presents for ongoing oncologic management. Interim history: She underwent MRI of the breast on 10/20. In the left breast in the upper outer quadrant there was an irregular mass with internal biopsy clip artifact representing biopsy-proven invasive carcinoma. There was an adjacent clumped nonmass enhancement that correlated to the adjacent suspicious focal asymmetry/architectural distortion with calcifications on the 10/04/2021 mammogram. Overall area of contiguous involvement in the upper outer quadrant (mass with adjacent non-mass enhancement) measured up to 2.7 cm in greatest dimension. He was noted that on a postbiopsy diagnostic mammogram that was available for comparison there was a possible group of indeterminate appearing calcifications in the upper outer quadrant posterior depth for which magnification views were recommended. Two additional abnormalities were identified in the breast-- There is an additional irregular 0.5 x 0.4 x 0.4 cm (transverse by AP by cc dimensions) in the left upper-outer quadrant (series 7 image 75) which demonstrates heterogeneous enhancement with prominent central washout kinetics concerning for an additional site of involvement. There is an additional 0.4 x 0.4 x 0.4 cm mass upper CENTRAL breast (series 7 image 76) which also demonstrates heterogeneous enhancement with prominent central washout kinetics concerning for an additional site of involvement. LYMPH NODES: There are no suspicious axillary or internal mammary lymph nodes in either breast. RIGHT BREAST: There is no suspicious mass or area of non-mass enhancement identified within limitation of marked background parenchymal enhancement. She has no complaints today. No subjective change. PMH, medications and allergies personally reviewed by me today. Any changes documented in appropriate section. ROS: See HPI. Social history: Non-smoker. Occasional alcohol. 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 Family history: MGM--Breast cancer in her 60s. Two of her sisters had breast cancer. Mother has two first cousins on her mother's side who have had breast cancer. Three of the above had genetic testing and were negative. Mother's paternal aunt--Breast cancer. All relatives who had breast cancer were post-menopausal. Paternal great grandmother--Breast cancer. Patient's first cousin on mother's side had aggressive B-cell lymphoma age 26. Cured. Patient has one brother. PHYSICAL EXAM: Vitals: Blood pressure 125/73, pulse 79, temperature 36.8 C (98.3 F), temperature source Temporal, weight 67.6 kg (149 lb), last menstrual period 10/19/2021. Well-appearing and in no acute distress. EYES: Sclerae are anicteric bilaterally. ASSESSMENT/PLAN: (C50.412, Z17.0) Malignant neoplasm of upper-outer quadrant of left breast in female, estrogen receptor positive (HCC) (primary encounter diagnosis) Assessment: -cT2 cN0 M0 ER/VA positive, HER2 overexpressed stage IIA infiltrating ductal carcinoma of the left breast. -Significant family history of breast cancer. Several family members who were tested were negative for deleterious gene mutation. -Patient's genetic testing pending through [facility]. -I reviewed the results of the MRI and agree with further ultrasound/biopsy evaluation. -Discussed with the patient and her family that stage II HER2 positive breast cancer is an indication for neoadjuvant chemotherapy and I specifically recommended TCHP. I discussed the rationale, logistics, potential risks (including ), benefits and alternatives, as well as the personnel involved in the administration of TCHP. I answered her questions in detail and she verbalized understanding and agreed with the recommended therapy. Please see the electronic consent document for details of doses and schedule. -Explained that adjuvant treatment will depend on the pathologic response following initial chemotherapy. -We also discussed the role of endocrine therapy. Will need OS with AI therapy in the adjuvant setting. Plan: -Scheduled this afternoon for diagnostic mammogram with ultrasound guided core needle biopsy. -She has appointment with fertility clinic this Sunday. -Scheduled for echocardiogram next week. -Needs port placement. Will refer to Dr. Baker. -Chemotherapy teaching. -Rx for Phenergan and dexamethasone premedication sent to her pharmacy. -Plan to begin chemotherapy toward the end of next week. Portions of this documentation were copied and pasted from previous office visit notes in order to provide a cohesive continuity of the history. The note has been reviewed and edited and updated as necessary. I spent a total of 50 minutes on the date of the service which included preparing to see the patient, [id number] patient care, completing clinical documentation, counseling and educating the patient/family/caregiver, ordering medications, tests, or procedures, communicating with other HCPs (not separately reported), communicating results to the patient/family/caregiver and care coordination (not separately reported). Chantal Ayers DO documented in this encounter [facility] 10-24-2021 Miscellaneous Notes Patient states Dr. Null's office told her to keep both appointments and just show up late to mammogram. Patient prefers to do this. I spoke with Verito at [place] and she did okay this. Patient is aware. Alta Beckford LPN documented in this encounter [facility] 10-21-2021 History of Present illness Narrative Images from the original note were not included. BREAST RECONSTRUCTION EVALUATION CC: Stephen Self is a 31 year old that presents today for breast reconstruction evaluation. HPI: Stephen Self is a 31 year old female who presents for an evaluation of a new diagnosis of LEFT breast cancer. She found a lump in the left breast in July of this year. She was seen by her PCP and a diagnostic mammogram was ordered, showing an irregular mass with spiculated margins in th eupper outer aspect of the left breast, posterior depth. An US was also performed, showing a mass at 1:00 8cmfn, measuring 1.3 x 0.9 x 1.1cm. Diagnosis was made at [facility] by means of ultrasound-guided core biopsy of Left breast. The pathology report showed Infiltrating Ductal Carcinoma Grade 2, ER positive, VA positive, HER2 positive (3+). Patient is here today to discuss reconstruction options. Prior breast procedures: No Radiation Therapy: No Chemotherapy: No PAIN : No: 0 on a scale of 0 to 10 Bra Size: C Desired Bra Size: C OB HISTORY: Para: 0 Plan for future pregnancies: Yes HISTORY OF BREAST DISEASE: No patient history of previous breast disease IMAGING TO DATE: OUTSIDE IMAGING REVIEW BY DR[facility] ANAMIKA JURADO [facility] images from 10/04/2021 and 10/07/2021 were available for review. Patient presented on 10/04/2021 with a palpable lump in the left breast. Bilateral mammogram performed same day showed extremely dense breast tissue in both breasts. There is an irregular mass with spiculated margins in the upper outer aspect of the left breast, posterior depth, with associated pleomorphic calcifications, at site of reported palpable abnormality. Target ultrasound performed same day, showed an irregular mass with indistinct/spiculated margins in the left breast at 1:00 8 cmfn, measuring approximately 1.3 x 0.9 x 1.1 cm. There are suspicious calcifications associated with this mass. No images of the left axilla are seen. This mass was subsequently biopsied on 10/07/2021, showing invasive ductal carcinoma. No postclip mammogram is seen to evaluate clip placement. RECOMMENDATIONS: 1. Left mammogram to evaluate clip placement. 2. Left axillary ultrasound for lymph node evaluation. 3. Surgical consultation for new invasive ductal carcinoma in the left breast. Patient is scheduled to see Dr. Null on 10/20/2021. Given patient's age and extremely dense breast tissue, breast MRI is also recommended for further evaluation. MRI BREAST WO/W IVCON BILATERAL 10/20/21 RIGHT BREAST: There is no suspicious mass or area of non-mass enhancement identified within limitation of marked background parenchymal enhancement. LEFT BREAST: Please note, evaluation is partially limited by marked background parenchymal enhancement. Irregular mass (transverse by AP by cc dimensions) in the upper outer quadrant posterior depth with internal susceptibility/biopsy clip artifact representing the biopsy-proven invasive carcinoma. On DYNACAD evaluation, this mass predominantly demonstrates washout kinetics. The posterior aspect of the mass is within 0.6 cm of the lateral aspect of the pectoralis muscle though there is no suspicious enhancement within the left pectoralis muscle or chest wall. There is an adjacent area of clumped, heterogeneously enhancing (with areas demonstrating washout kinetics) non-mass enhancement in the upper outer quadrant (series 9 image 86) which appears to correlate with a suspicious area of architectural distortion with associated calcifications dated 10/04/2021 which is suspicious for adjacent extension of disease. This overall contiguous involvement measures approximately 2.2 x 2.7 x 2.4 cm (transverse by AP by cc dimensions). There is an additional irregular 0.5 x 0.4 x 0.4 cm (transverse by AP by cc dimensions) in the left upper-outer quadrant (series 7 image 75) which demonstrates heterogeneous enhancement with prominent central washout kinetics concerning for an additional site of involvement. There is an additional 0.4 x 0.4 x 0.4 cm mass upper CENTRAL breast (series 7 image 76) which also demonstrates heterogeneous enhancement with prominent central washout kinetics concerning for an additional site of involvement. LYMPH NODES: There are no suspicious axillary or internal mammary lymph nodes in either breast. EXTRAMAMMARY FINDINGS: There is adequate contrast bolus noted within the Heart. IMPRESSION: SUSPICIOUS FINDING - BIOPSY SHOULD BE CONSIDERED Please note, evaluation for small enhancing masses or areas on non-mass enhancement is limited due to marked background parenchymal enhancement. - LEFT breast upper outer quadrant irregular mass with internal biopsy clip artifact representing the biopsy-proven invasive carcinoma. There is adjacent clumped non-mass enhancement (which also demonstrates washout kinetics on DYNACAD evaluation) that correlates with adjacent suspicious focal asymmetry/architectural distortion with calcifications on the 10/04/2021 mammogram. Overall area of contiguous involvement in the upper outer quadrant (mass with adjacent non-mass enhancement) measures up to 2.7 cm in greatest dimension. - Please note, no post-biopsy diagnostic mammogram is available for interpretation. A repeat left breast diagnostic mammogram has been recommended. Of note, there is a possible group of indeterminate appearing calcifications in the upper outer quadrant, posterior depth, for which magnification views are recommended. - Two additional masses in the LEFT breast as detailed above demonstrate washout kinetics and are suspicious for additional sites of disease involvement. Second look ultrasound of the more CENTRAL mass is recommended. If no suspicious finding is identified on ultrasound, then MRI-guided biopsy is recommended to assess for disease extension (if breast conservation therapy is being considered). Please note, left breast diagnostic mammogram, as recommended above, should be performed prior to any MRI-biopsy to evaluate for need for potential stereotactic/tomosynthesis guided biopsy for calcifications. - Dedicated ultrasound images of the left axilla are not identified in outside imaging. Repeat sonographic evaluation of the left axilla is recommended. - Within limitation of background parenchymal enhancement, there is no definite MRI evidence of malignancy in the RIGHT breast. PATHOLOGY RESULTS: FINAL DIAGNOSIS 11 slides received from [facility], [place], [place], [id number] (collected date 10/07/21) Left breast, core biopsy: -Invasive ductal carcinoma, provisionally [place] grade 2, measures 8 mm in greatest length, see comment -Ductal carcinoma in situ (DCIS), intermediate nuclear FAMILY HISTORY OF BREAST CANCER: Maternal grandmother (60s), Maternal great-aunt x 2, Maternal 2nd cousin x 2, Paternal great-grandmother PMH: PAST MEDICAL HISTORY Diagnosis Date Crohn's disease (HCC) 07/09/2013 Hypoglycemia Malignant neoplasm of left breast (HCC) 09/2021 PMH - PAST MEDICAL HISTORY OF 04/08/2004 Normal color vision PMH - PAST MEDICAL HISTORY OF 12/23/2001 Pneumonia PSH: PAST SURGICAL HISTORY Procedure Laterality Date COLONOSCOPY 07/09/2013 EXTRACTION ERUPTED TOOTH/EXR age 17 PAST SURGICAL HISTORY OF 07/09/2006 Cyst removal in right wrist TONSILLECTOMY PRIMARY/SECONDARY AGE 13/> 10/07/2008 US BREAST NEEDLE CORE BIOPSY LT Left 09/2021 ROS: GENERAL: No weight loss, malaise or fevers HEENT: Negative for frequent or significant headaches, No changes in hearing or vision, no nose bleeds or other nasal problems RESPIRATORY: Negative for cough, hemoptysis, wheezing, COPD, dyspnea or shortness of breath CARDIOVASCULAR: Negative for chest pain, leg swelling, hypertension, CHF or palpitations GASTROINTESTINAL: No nausea, vomiting, or diarrhea GENITOURINARY: No history of dysuria, frequency or incontinence GYNECOLOGICAL: Negative for abnormal vaginal bleeding, abnormal vaginal discharge MUSCULOSKELETAL: Negative for joint pain or swelling, back pain or muscle pain INTEGUMENTARY:Denies Scleroderma or Lupus. Denies chronic skin conditions. PSYCHOLOGICAL: Denies history of psychiatric illness. Patient feels she is coping well with recent Breast Cancer diagnosis. Negative for sleep disturbance, mood disorder and recent psychosocial stressors. MEDS: Current Outpatient Medications on File Prior to Visit Medication Sig iv contrast (will be provided with radiology test) MRI Breast PAKO Inject, intravenously, once for 1 dose. No IV access, insert saline lock prior to the beginning of sedation, infusion, injection of imaging exam. Discontinue saline lock post exam. If Pt has a central line or IVAD, may access for administration according to line specific nursing protocol. Once exam is complete flush line and de-access according to line specific nursing protocol in the MR contrast administration guidelines link Drospirenone-Ethinyl Estradiol (RICHARD, 28,) 3-0.02 mg per tablet Take 1 tablet by mouth once daily. (Patient not taking: Reported on 10/19/2021 ) LACTOBACILLUS ACIDOPHILUS (PROBIOTIC ORAL) Take by mouth. Plexus capsule, Pt takes 1 daily. (Patient not taking: Reported on 10/19/2021 ) Current Facility-Administered Medications on File Prior to Visit Medication perflutren lipid microspheres 1.3 mL in NaCl (PF) 0.9% 10 mL injection (DEFINITY) sodium chloride 0.9 % (flush) 10 mL (BD POSIFLUSH) EXAM: LMP 10/19/2021 There is no height or weight on file to calculate BMI. 21.9 Breast Exam: Note: measurements are in centimeters SN to NIPPLE: R: 21 L: 22.5 WIDTH: R: 13 L: 14 MIDLINE to NIPPLE: R: 11 L: 11 IMF to NIPPLE: R: 7 L: 7 PTOSIS: R: Grade I L: Grade I MEDIALLY DISPLACED NIPPLE: None Appoximate Implant Size: 250 Type of Implant: Silicone gel filled Assessment: The patient is a candidate for breast reconstruction. Photographs have been taken and will be sent to the insurance company as necessary. Plan: Planned procedure: Breast reconstruction Follow up when plan is finalized This visit lasted for more than 30 minutes and greater than 50% of the visit was involved in the discussion of the options for treatment. Consultation requested by Dr. Null for an opinion regarding breast reconstruction. My final recommendations will be communicated back to the requesting physician by way of shared Medical record or letter to requesting physician via US mail. This plan will be coordinated with Dr. Chaka García MD documented in this encounter [facility] 10-21-2021 Nurse Note Assessment interrupted by medical provider, unable to complete nursing assessment. documented in this encounter [facility] 10-21-2021 History of Present illness Narrative NEW BREAST CANCER - INITIAL SURGICAL VISIT SERVICE DATE: 10/21/2021 SUBJECTIVE: REASON FOR TODAY'S VISIT: Breast Cancer Evaluation Consult from Dr. Moran Consult requested for an opinion regarding the evaluation and treatment of a new breast issue. My final impression and recommendations will be communicated back to the requesting physician by way of the shared medical record or letter via US mail. HISTORY of PRESENT ILLNESS: Stephen Self is a 31 year old female who presents for an evaluation of a new diagnosis of LEFT breast cancer. She found a lump in the left breast in July of this year. She was seen by her PCP and a diagnostic mammogram was ordered, showing an irregular mass with spiculated margins in th eupper outer aspect of the left breast, posterior depth. An US was also performed, showing a mass at 1:00 8cmfn, measuring 1.3 x 0.9 x 1.1cm. Diagnosis was made at [facility] by means of ultrasound-guided core biopsy of Left breast. The pathology report showed Infiltrating Ductal Carcinoma Grade 2, ER positive, VA positive, HER2 positive (3+). Patient denies additional symptoms. MRI shows 2.7 cm cancer with 2 satellite lesions She is otherwise fairly healthy. She does have Crohn's disease, but it is controlled by her diet. She has not required any surgeries in the past for it. She has a strong FH of breast cancer on her mother's side (maternal great-aunts, 2nd cousins, grandmother, great-grandmother) but her mother has no history of breast cancer. HISTORY OF BREAST PROCEDURE(S): No prior history. PAST MEDICAL HISTORY: PAST MEDICAL HISTORY Diagnosis Date Crohn's disease (HCC) 07/09/2013 Hypoglycemia PMH - PAST MEDICAL HISTORY OF 04/08/2004 Normal color vision PMH - PAST MEDICAL HISTORY OF 12/23/2001 Pneumonia PAST SURGICAL HISTORY: PAST SURGICAL HISTORY Procedure Laterality Date COLONOSCOPY 07/09/2013 EXTRACTION ERUPTED TOOTH/EXR age 17 PAST SURGICAL HISTORY OF 07/09/2006 Cyst removal in right wrist TONSILLECTOMY PRIMARY/SECONDARY AGE 13/> 10/07/2008 OBSTETRIC RELATED HISTORY: P: 0 Patient's last menstrual period was 09/28/2017 (exact date). Exogenous Hormone Use: The Patient has not used exogenous hormones. FAMILY HISTORY: FAMILY HISTORY Problem Relation Age of Onset Coronary Artery Disease Paternal Grandfather Diabetes Paternal Grandfather other (DC) Paternal Grandfather age 45 Heart Maternal Grandmother triple by pass Breast Cancer Maternal Grandmother Breast Cancer Other Maternal Great Aunt Breast Cancer: Maternal grandmother (60s), Maternal great-aunt x 2, Maternal 2nd cousin x 2, Paternal great-grandmother Ovarian Cancer: None Colon Cancer: None SOCIAL HISTORY: Works Social History Tobacco Use Smoking status: Never Smoker Smokeless tobacco: Never Used Vaping Use Vaping Use: Never used Substance Use Topics Alcohol use: Yes Comment: Occasionally Drug use: No ACTIVE PROBLEM LIST Dysmenorrhea - 12/03/2012 GANGLION JOINT (Right volar wrist) - 09/17/2006 Other Acne - 04/12/2006 Vitiligo - 04/12/2006 CURRENT MEDICATIONS: Drospirenone-Ethinyl Estradiol (RICHARD, 28,) 3-0.02 mg per tablet Take 1 tablet by mouth once daily. LACTOBACILLUS ACIDOPHILUS (PROBIOTIC ORAL) Take by mouth. Plexus capsule, Pt takes 1 daily. ALLERGIES No Known Allergies REVIEW OF SYSTEMS: GENERAL: No weight loss, malaise or fevers HEENT: Negative for frequent or significant headaches, No changes in hearing or vision, no nose bleeds or other nasal problems RESPIRATORY: Negative for cough, hemoptysis, wheezing, COPD, dyspnea or shortness of breath CARDIOVASCULAR: Negative for chest pain, leg swelling, hypertension, CHF or palpitations GASTROINTESTINAL: No nausea, vomiting, or diarrhea GENITOURINARY: No history of dysuria, frequency or incontinence GYNECOLOGICAL: Negative for abnormal vaginal bleeding, abnormal vaginal discharge MUSCULOSKELETAL: Negative for joint pain or swelling, back pain or muscle pain INTEGUMENTARY:Denies Scleroderma or Lupus. Denies chronic skin conditions. PSYCHOLOGICAL: Denies history of psychiatric illness. Patient feels she is coping well with recent Breast Cancer diagnosis. Negative for sleep disturbance, mood disorder and recent psychosocial stressors. All other reviewed and negative other than HPI. OBJECTIVE: PHYSICAL EXAM: Ht 172.7 cm (5' 8) Wt 65.8 kg (145 lb) LMP 10/19/2021 BMI 22.05 kg/m Body mass index is 22.05 kg/m . GENERAL:well-nourished, healthy, alert and oriented x 3, calm SKIN:warm, dry, skin color, texture, turgor normal HEAD/EYES:normocephalic, atraumatic and anicteric NECK: supple, symmetrical RESPIRATORY: Respirations regular & non-labored MUSCULOSKELETAL: No observed limitations in range of motion of upper extremities. Patient ambulates independently BREASTS: The Patient was examined in the upright and supine positions. Breasts are symmetric. There are bilateral fibrocystic changes. LEFT BREAST: There is a 2cm firm mass in the upper outer quadrant. No overlying skin changes or retraction. NAC is normal, no nipple discharge. RIGHT BREAST: The breast skin and nipple areolar complexes appear normal without retraction or lesions. There is no nipple discharge. There is no dominant mass or clinical abnormality noted in right breast. LEFT REGIONAL LYMPH NODES: There is no concerning supraclavicular, infraclavicular or axillary lymphadenopathy RIGHT REGIONAL LYMPH NODES: There is no concerning supraclavicular, infraclavicular or axillary lymphadenopathy IMAGING TO DATE: OUTSIDE IMAGING REVIEW BY DR. ANAMIKA JURADO [facility] images from 10/04/2021 and 10/07/2021 were available for review. Patient presented on 10/04/2021 with a palpable lump in the left breast. Bilateral mammogram performed same day showed extremely dense breast tissue in both breasts. There is an irregular mass with spiculated margins in the upper outer aspect of the left breast, posterior depth, with associated pleomorphic calcifications, at site of reported palpable abnormality. Target ultrasound performed same day, showed an irregular mass with indistinct/spiculated margins in the left breast at 1:00 8 cmfn, measuring approximately 1.3 x 0.9 x 1.1 cm. There are suspicious calcifications associated with this mass. No images of the left axilla are seen. This mass was subsequently biopsied on 10/07/2021, showing invasive ductal carcinoma. No postclip mammogram is seen to evaluate clip placement. RECOMMENDATIONS: 1. Left mammogram to evaluate clip placement. 2. Left axillary ultrasound for lymph node evaluation. 3. Surgical consultation for new invasive ductal carcinoma in the left breast. Patient is scheduled to see Dr. Null on 10/20/2021. Given patient's age and extremely dense breast tissue, breast MRI is also recommended for further evaluation. MRI BREAST WO/W IVCON BILATERAL 10/20/21 RIGHT BREAST: There is no suspicious mass or area of non-mass enhancement identified within limitation of marked background parenchymal enhancement. LEFT BREAST: Please note, evaluation is partially limited by marked background parenchymal enhancement. Irregular mass (transverse by AP by cc dimensions) in the upper outer quadrant posterior depth with internal susceptibility/biopsy clip artifact representing the biopsy-proven invasive carcinoma. On DYNACAD evaluation, this mass predominantly demonstrates washout kinetics. The posterior aspect of the mass is within 0.6 cm of the lateral aspect of the pectoralis muscle though there is no suspicious enhancement within the left pectoralis muscle or chest wall. There is an adjacent area of clumped, heterogeneously enhancing (with areas demonstrating washout kinetics) non-mass enhancement in the upper outer quadrant (series 9 image 86) which appears to correlate with a suspicious area of architectural distortion with associated calcifications dated 10/04/2021 which is suspicious for adjacent extension of disease. This overall contiguous involvement measures approximately 2.2 x 2.7 x 2.4 cm (transverse by AP by cc dimensions). There is an additional irregular 0.5 x 0.4 x 0.4 cm (transverse by AP by cc dimensions) in the left upper-outer quadrant (series 7 image 75) which demonstrates heterogeneous enhancement with prominent central washout kinetics concerning for an additional site of involvement. There is an additional 0.4 x 0.4 x 0.4 cm mass upper CENTRAL breast (series 7 image 76) which also demonstrates heterogeneous enhancement with prominent central washout kinetics concerning for an additional site of involvement. LYMPH NODES: There are no suspicious axillary or internal mammary lymph nodes in either breast. EXTRAMAMMARY FINDINGS: There is adequate contrast bolus noted within the Heart. IMPRESSION: SUSPICIOUS FINDING - BIOPSY SHOULD BE CONSIDERED Please note, evaluation for small enhancing masses or areas on non-mass enhancement is limited due to marked background parenchymal enhancement. - LEFT breast upper outer quadrant irregular mass with internal biopsy clip artifact representing the biopsy-proven invasive carcinoma. There is adjacent clumped non-mass enhancement (which also demonstrates washout kinetics on DYNACAD evaluation) that correlates with adjacent suspicious focal asymmetry/architectural distortion with calcifications on the 10/04/2021 mammogram. Overall area of contiguous involvement in the upper outer quadrant (mass with adjacent non-mass enhancement) measures up to 2.7 cm in greatest dimension. - Please note, no post-biopsy diagnostic mammogram is available for interpretation. A repeat left breast diagnostic mammogram has been recommended. Of note, there is a possible group of indeterminate appearing calcifications in the upper outer quadrant, posterior depth, for which magnification views are recommended. - Two additional masses in the LEFT breast as detailed above demonstrate washout kinetics and are suspicious for additional sites of disease involvement. Second look ultrasound of the more CENTRAL mass is recommended. If no suspicious finding is identified on ultrasound, then MRI-guided biopsy is recommended to assess for disease extension (if breast conservation therapy is being considered). Please note, left breast diagnostic mammogram, as recommended above, should be performed prior to any MRI-biopsy to evaluate for need for potential stereotactic/tomosynthesis guided biopsy for calcifications. - Dedicated ultrasound images of the left axilla are not identified in outside imaging. Repeat sonographic evaluation of the left axilla is recommended. - Within limitation of background parenchymal enhancement, there is no definite MRI evidence of malignancy in the RIGHT breast. PATHOLOGY RESULTS: FINAL DIAGNOSIS 11 slides received from [facility], [place], [place], S22 [id number] (collected date 10/07/21) Left breast, core biopsy: -Invasive ductal carcinoma, provisionally Fany grade 2, measures 8 mm in greatest length, see comment -Ductal carcinoma in situ (DCIS), intermediate nuclear grade, solid type with comedonecrosis and calcifications 10/21/2021 Diagnosis Comment Submitted immunostains of CK5/6, p40 and calponin highlight the myoepithelial cells around the in-situ carcinoma and are negative around invasive carcinoma. E-cadherin shows membranous staining, supporting the ductal phenotype. CK8 is positive in tumor cells. Submitted biomarkers show the invasive carcinoma is ER positive (> 95%, strong intensity), VA positive (30%, moderate intensity) and HER2 positive (score 3+). Ki-67 is about 50%. All controls are appropriate. GENETIC TESTING: Test(s) pending SOZO Review 10/21/2021 Extremity measured Left Arm Pacemaker/ Defibrillator/ Possible No Dominant Side Right Bilateral/ Unilateral Measurement Unilateral Patient Position Standing LDEX Result Green LDEX Score 0.1 Provider notified Yes Another SOZO Measurement needed No ASSESSMENT: Stephen Self is a 31 year old female with a LEFT breast 2.7 cm IDC, NG 2 with DCIS @ 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 MRI shows 2 satellite lesions for which 2nd look US is recommended. US axilla recommended. Post bx clip films recommended. ER+VA+HER2- [id number] PLAN: DIAGNOSIS: (C50.412, Z17.0) Malignant neoplasm of upper-outer quadrant of left breast in female, estrogen receptor positive (HCC) (primary encounter diagnosis) Given the size of her cancer on MRI (2.7cm), she will be a candidate for neoadjuvant chemotherapy. She met with Dr. Chantal Ayers (Medical Oncology) this week who outlined the TCH-P chemotherapy for her. We discussed fertility. She is currently and they were trying to have children when she was diagnosed with breast cancer. Prior to starting chemotherapy, I recommend that she meets with a fertility specialist. This order has been placed. Also prior to starting chemotherapy she requires further imaging and biopsies of the LEFT breast. A left diagnostic mammogram as well as left US (breast and axilla) have been ordered. There were two additional areas of enhancement on MRI that will need to be biopsied as she is interested in keeping all of her surgical options available at this time. Given that a lumpectomy could potentially be feasible, these areas will need to be biopsied with clips placed prior to the start of chemotherapy. I have also recommended that she meet with Dr. Melgar (Radiation oncology ) to discuss radiation should she choose breast conservation. She is meeting with Dr. García (Plastic Surgery) today to discuss potential breast reconstruction. Agree with Dr. Ayers for neoadjuvant systemic therapy. We discussed that she will return to see me prior to her last chemotherapy for repeat left mammogram, ultrasound, and MRI and to plan surgery. We discussed that surgery typically is 4 to 6 weeks from her last chemotherapy IMAGING ORDERED TODAY: -Mammogram to confirm clip placement -LEFT breast US to correlate with two new lesions of central breast on MRI (if not seen on US, will need MRI-guided biopsy of these areas) -Left axillary US REFERRAL(S) for breast cancer treatment planning considerations: Fertility consultation and Breast psychology We also discussed the [facility] program. All questions were answered and the patient had no further concerns at this time Ms. Self was given our contact information if she has any further questions or concerns. Paulina Null DO, [facility] Breast Surgeon [facility] Cc: Dr. Elle Mariscal documented in this encounter [facility] 10-21-2021 Nurse Note Patient was referred by: Dr.Paula Ayers Did patient bring outside records to appt today? : Films: Sent in by other facility Pathology: Sent in by other facility Reports: Sent in by other facility Last mammogram on: 10/04/21 bilateral Results: see report Patient current bra size: 36C Coping: It is normal to feel some distress when you have cancer. On a scale of 0-10 please indicate the number that best describes your level of distress on the average over the past week. 12/16 Referred to social work: No Is the patient active on benchee Yes Electronically Signed By: Valentina Mars LPN In Department: GENERAL SURGERY REVIEW OF PATIENT HISTORY: OB History T0 L0 SAB0 IAB0 Ectopic0 Multiple0 Live Births0 FAMILY HISTORY Problem Relation Age of Onset Coronary Artery Disease Paternal Grandfather Diabetes Paternal Grandfather other (DC) Paternal Grandfather age 45 Heart Maternal Grandmother triple by pass Breast Cancer Maternal Grandmother Breast Cancer Other Maternal Great Aunt PAST MEDICAL HISTORY Diagnosis Date Crohn's disease (HCC) 07/09/2013 Hypoglycemia PMH - PAST MEDICAL HISTORY OF 04/08/2004 Normal color vision PMH - PAST MEDICAL HISTORY OF 12/23/2001 Pneumonia PAST SURGICAL HISTORY Procedure Laterality Date COLONOSCOPY 07/09/2013 EXTRACTION ERUPTED TOOTH/EXR age 17 PAST SURGICAL HISTORY OF 07/09/2006 Cyst removal in right wrist TONSILLECTOMY PRIMARY/SECONDARY AGE 13/> 10/07/2008 Social History Tobacco Use Smoking status: Never Smoker Smokeless tobacco: Never Used Vaping Use Vaping Use: Never used Substance Use Topics Alcohol use: Yes Comment: Occasionally Drug use: No documented in this encounter [facility] 10-20-2021 Miscellaneous Notes Radiology Service Progress Note PATIENT NAME: Stephen Self DATE OF SERVICE: October 20, 2021 TIME: 9:28 AM PATIENT IDENTITY VERIFICATION COMPLETED USING TWO (2) IDENTIFIERS: Name and Date of confirmed by patient verbally and Name and Date of confirmed by identification band. FALL SCREENING: Has the patient had 2 falls in the last year or 1 fall with injury or currently using an Ambulatory Assistive Device (Walker, Cane, Wheelchair, Crutches, etc.)? No PATIENT GENDER DATA: Female. status: : No status: NO. PATIENT RELEVANT IMPLANT DATA REVIEWED: Yes RADIOLOGY DEPARTMENT: MR; Exam(s) Completed: Chest: Breast PERIPHERAL IV DATA: Site assessment: Clean,Dry and Intact, Site disposition Discontinued SIGNED BY: GHANSHYAM Brenner Tech October 20, 2021 9:28 AM documented in this encounter [facility] 10-20-2021 Nurse Note Radiology Service Progress Note DATE OF SERVICE: October 20, 2021 TIME: 9:13 AM PATIENT WEIGHT: 146 LBS PATIENT IDENTITY VERIFICATION COMPLETED USING TWO (2) STANDARD IDENTIFIERS: Name and Date of confirmed by patient verbally. FALL SCREENING: Has the patient had 2 falls in the last year or 1 fall with injury or currently using an Ambulatory Assistive Device (Walker, Cane, Wheelchair, Crutches, etc.)? No PATIENT GENDER DATA: Female. status: : No status: NO. ALLERGIES: Reviewed and unchanged CONTRAST ALLERGY: No EXAM: MRI - CONTRAST TYPE: GROUP II IV SITE: Ambulatory: A peripheral IV was started in the Left antecubital site with a Diffusics 22ga. IV SITE APPEARANCE: Clean,Dry and Intact SIGNATURE: Angel Walker RN PATIENT NAME: Stephen Self DATE: October 20, 2021 TIME: 9:13 AM documented in this encounter [facility] 10-19-2021 History of Present illness Narrative Patient self referred for second opinion regarding HER-2 positive breast cancer. The impression and plan will be communicated by way of the shared electronic record or faxed under separate cover letter. HPI: The patient is a 31-year-old female with a past medical history significant for Crohn's disease (dx 2014), vitiligo and dysmenorrhea. She self discovered a mass in the left breast. She underwent a bilateral diagnostic mammogram on 10/04/2021. The breasts were noted to be extremely dense lowering the sensitivity of the mammography. The palpable abnormality however corresponded to a 1.2 x 1.4 cm spiculated nodule in the deep lateral axillary region of the breast. Microcalcifications were identified within it. Patient underwent ultrasound of the breast on the same day. In the left breast corresponding to the palpable abnormality there was a 1.3 x 1.3 x 1.1 heterogeneous hypoechoic solid mass with microcalcifications at the 1 o'clock position of the breast 8 cm from the nipple. Increased vascularity was observed. Patient was referred to Dr. Farrar. She underwent a left core needle biopsy on 10/07/2021. 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 VA variable 10 to 50%, moderate intensity. HER-2/chaz 3+ IHC. Regular menses. OCPs starting age 17. Stopped age 30 to try to get . Stopped trying to get because had flare of Crohn's. Generalized itching all over--started last April. Triggered by heat (showever). Injured coccyx snowboarding in high school. Hurting more lately. Crohn's under control with anti-inflammatory diet. PMH, medications and allergies personally reviewed by me today. Any changes documented in appropriate section. ROS: See HPI. Social history: Non-smoker. Occasional alcohol. 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 Family history: MGM--Breast cancer in her 60s. Two of her sisters had breast cancer. Mother has two first cousins on her mother's side who have had breast cancer. Three of the above had genetic testing and were negative. Mother's paternal aunt--Breast cancer. All relatives who had breast cancer were post-menopausal. Paternal great grandmother--Breast cancer. Patient's first cousin on mother's side had aggressive B-cell lymphoma age 26. Cured. Patient has one brother. PHYSICAL EXAM: Vitals: Blood pressure 127/73, pulse 80, temperature 37.2 C (98.9 F), height 175 cm (5' 8.9), weight 66.2 kg (146 lb), last menstrual period 09/28/2017, SpO2 97 %. Well-appearing and in no acute distress. EYES: Sclerae are anicteric bilaterally. LYMPHATIC: There is no palpable cervical, supraclavicular or axillary inguinal adenopathy. RESPIRATORY: Inspiratory breath sounds are of normal intensity in all allen. No rales, wheezes or rhonchi. CARDIOVASCULAR: Rhythm is regular. Normal intensity S1/S2. BREAST: Mother acted as salon shampoo assistant. In the lateral left breast there is a linear area of ecchymosis from the biopsy site up to the firm palpable tumor measuring about a centimeter and a half in size. It is mobile. There is a linear area of firmness leading inferiorly off the tumor to the biopsy site. Both breasts have a lumpy, firm architecture. ABDOMEN: The abdomen is nondistended. No organomegaly. No tenderness. Extremities: No swelling or edema. SKIN: No jaundice or rash. No petechiae. NEUROLOGIC: want ad receiver II-XII are grossly intact. No focal motor weakness. ASSESSMENT/PLAN: (C50.412, Z17.0) Malignant neoplasm of upper-outer quadrant of left breast in female, estrogen receptor positive (HCC) (primary encounter diagnosis) Assessment: -cT1c cN0 M0 ER/VA positive, HER2 overexpressed stage IA infiltrating ductal carcinoma of the left breast. -Significant family history of breast cancer. Several family members who were tested were negative for deleterious gene mutation. -Patient's genetic testing pending. -Patient is young and has dense breasts. Explained MRI is indicated in order to more fully evaluate the extent of disease. -We will decide more definitively on need for neoadjuvant chemotherapy once MRI completed tomorrow but I outlined TCHP. Explained she will need HER-2 directed therapy whether new adjuvantly or adjuvantly. -We also discussed the role of endocrine therapy. -She desires ovarian preservation if possible. Plan: -Scheduled for echocardiogram. -MRI breasts tomorrow. -Surgical opinion on Sunday. -Office visit next Sunday at noon to finalize treatment plan. I spent a total of 75 minutes on the date of the service which included preparing to see the patient, [id number] patient care, completing clinical documentation, obtaining and/or reviewing separately obtained history, performing a medically appropriate examination, counseling and educating the patient/family/caregiver, communicating results to the patient/family/caregiver and care coordination (not separately reported). Chantal Ayers DO documented in this encounter [facility] 10-19-2021 History of Present illness Narrative Patient seen for second opinion/imaging review regarding new diagnosis of left breast invasive ductal carcinoma at 1:00 8 cmfn. OSH images from 10/04/2021 and 10/07/2021 were available for review. Patient presented on 10/04/2021 with a palpable lump in the left breast. Bilateral mammogram performed same day showed extremely dense breast tissue in both breasts. There is an irregular mass with spiculated margins in the upper outer aspect of the left breast, posterior depth, with associated pleomorphic calcifications, at site of reported palpable abnormality. Target ultrasound performed same day, showed an irregular mass with indistinct/spiculated margins in the left breast at 1:00 8 cmfn, measuring approximately 1.3 x 0.9 x 1.1 cm. There are suspicious calcifications associated with this mass. No images of the left axilla are seen. This mass was subsequently biopsied on 10/07/2021, showing invasive ductal carcinoma. No postclip mammogram is seen to evaluate clip placement. RECOMMENDATIONS: 1. Left mammogram to evaluate clip placement. 2. Left axillary ultrasound for lymph node evaluation. 3. Surgical consultation for new invasive ductal carcinoma in the left breast. Patient is scheduled to see Dr. Null on 10/20/2021. Given patient's age and extremely dense breast tissue, breast MRI is also recommended for further evaluation. documented in this encounter [facility] 10-18-2021 Miscellaneous Notes Called and spoke to pt regarding appointment , offered pt appointment for 10/21 at 2pm Imaging received and what (MMG/US/MRI - radiology reviewed yet? In process Pathology slides sent / reviewed? Requested from [place] request sent 10/21 Consults: Breast psych ([place]) No Med onc yes Dr.Paula Ayers on 10/19 Rad onc not at this time. Plastics yes 10/21 at 3:15 MRI yes 10/21 at 9am Genetics yes on 10/18 Answered all question. Pt has my contact number if any other questions should arise. Valentina Mars LPN documented in this encounter [facility] 10-18-2021 Miscellaneous Notes Called and left message on pt voice mail, asking pt to please return my call regarding appointment with . Left my contact number to where I can be reached. Valentina Mars LPN documented in this encounter [facility] 12-27-2012 History of Past i llness Narrative Problem Noted Date Resolved Date 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/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 09/04/2012 08/28/2016 Overview: 09/04: S/p Colpo documented as of this encounter (statuses as of 10/18/2021) [facility] of Past illness Narrative* Problem Noted Date Resolved Date 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/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 09/04/2012 08/28/2016 Overview: 09/04: S/p Colpo documented as of this encounter (statuses as of 10/18/2021) [facility] Narrative* Problem Noted Date Resolved Date 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/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 09/04/2012 08/28/2016 Overview: 09/04: S/p Colpo documented as of this encounter (statuses as of 10/18/2021) [facility] Narrative* Problem Noted Date Resolved Date 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/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 09/04/2012 08/28/2016 Overview: 09/04: S/p Colpo documented as of this encounter (statuses as of 10/19/2021) [facility] Narrative* Problem Noted Date Resolved Date 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/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 09/04/2012 08/28/2016 Overview: 09/04: S/p Colpo documented as of this encounter (statuses as of 10/19/2021) [facility] Narrative* Problem Noted Date Resolved Date 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/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 09/04/2012 08/28/2016 Overview: 09/04: S/p Colpo documented as of this encounter (statuses as of 10/19/2021) [facility] Narrative* Problem Noted Date Resolved Date 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/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 09/04/2012 08/28/2016 Overview: 09/04: S/p Colpo documented as of this encounter (statuses as of 10/20/2021) [facility] N[facility]ative* Problem Noted Date Resolved Date 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/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 09/04/2012 08/28/2016 Overview: 09/04: S/p Colpo documented as of this encounter (statuses as of 10/21/2021) [facility]ative* Problem Noted Date Resolved Date 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/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 09/04/2012 08/28/2016 Overview: 09/04: S/p Colpo documented as of this encounter (statuses as of 10/24/2021) [facility] N[facility]ative* Problem Noted Date Resolved Date 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/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 09/04/2012 08/28/2016 Overview: 09/04: S/p Colpo documented as of this encounter (statuses as of 10/25/2021) [facility]* Problem Noted Date Resolved Date 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/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 09/04/2012 08/28/2016 Overview: 09/04: S/p Colpo documented as of this encounter (statuses as of 10/25/2021) [facility]ative* Problem Noted Date Resolved Date 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/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 09/04/2012 08/28/2016 Overview: 09/04: S/p Colpo documented as of this encounter (statuses as of 10/26/2021) [facility]ative* Problem Noted Date Resolved Date 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/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 09/04/2012 08/28/2016 Overview: 09/04: S/p Colpo documented as of this encounter (statuses as of 10/26/2021) [facility]ative* Problem Noted Date Resolved Date 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/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 09/04/2012 08/28/2016 Overview: 09/04: S/p Colpo documented as of this encounter (statuses as of 10/26/2021) [facility]* Problem Noted Date Resolved Date 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/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 09/04/2012 08/28/2016 Overview: 09/04: S/p Colpo documented as of this encounter (statuses as of 10/29/2021) [facility]ative* Problem Noted Date Resolved Date 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/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 09/04/2012 08/28/2016 Overview: 09/04: S/p Colpo documented as of this encounter (statuses as of 11/02/2021) [facility]* Problem Noted Date Resolved Date 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/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 09/04/2012 08/28/2016 Overview: 09/04: S/p Colpo documented as of this encounter (statuses as of 11/02/2021) [facility]* Problem Noted Date Resolved Date 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/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 09/04/2012 08/28/2016 Overview: 09/04: S/p Colpo documented as of this encounter (statuses as of 11/02/2021) [facility]* Problem Noted Date Resolved Date 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/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 09/04/2012 08/28/2016 Overview: 09/04: S/p Colpo documented as of this encounter (statuses as of 11/02/2021) [facility]* Problem Noted Date Resolved Date 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/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 09/04/2012 08/28/2016 Overview: 09/04: S/p Colpo documented as of this encounter (statuses as of 11/03/2021) [facility]* Problem Noted Date Resolved Date 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/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 09/04/2012 08/28/2016 Overview: 09/04: S/p Colpo documented as of this encounter (statuses as of 11/04/2021) [facility]* Problem Noted Date Resolved Date 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/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 09/04/2012 08/28/2016 Overview: 09/04: S/p Colpo documented as of this encounter (statuses as of 11/07/2021) [facility]* Problem Noted Date Resolved Date 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/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 09/04/2012 08/28/2016 Overview: 09/04: S/p Colpo documented as of this encounter (statuses as of 11/07/2021) [facility]* Problem Noted Date Resolved Date 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/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 09/04/2012 08/28/2016 Overview: 09/04: S/p Colpo documented as of this encounter (statuses as of 11/07/2021) [facility]* Problem Noted Date Resolved Date 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/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 09/04/2012 08/28/2016 Overview: 09/04: S/p Colpo documented as of this encounter (statuses as of 11/07/2021) [facility]* Problem Noted Date Resolved Date 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/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 09/04/2012 08/28/2016 Overview: 09/04: S/p Colpo documented as of this encounter (statuses as of 11/07/2021) [facility]* Problem Noted Date Resolved Date 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/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 09/04/2012 08/28/2016 Overview: 09/04: S/p Colpo documented as of this encounter (statuses as of 11/07/2021) [facility]* Problem Noted Date Resolved Date 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/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 09/04/2012 08/28/2016 Overview: 09/04: S/p Colpo documented as of this encounter (statuses as of 11/07/2021) [facility]* Problem Noted Date Resolved Date 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/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 09/04/2012 08/28/2016 Overview: 09/04: S/p Colpo documented as of this encounter (statuses as of 11/08/2021) [facility]* Problem Noted Date Resolved Date 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/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 09/04/2012 08/28/2016 Overview: 09/04: S/p Colpo documented as of this encounter (statuses as of 11/08/2021) [facility]* Problem Noted Date Resolved Date 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/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 09/04/2012 08/28/2016 Overview: 09/04: S/p Colpo documented as of this encounter (statuses as of 11/09/2021) [facility]* Problem Noted Date Resolved Date 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/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 09/04/2012 08/28/2016 Overview: 09/04: S/p Colpo documented as of this encounter (statuses as of 11/11/2021) [facility]* Problem Noted Date Resolved Date 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/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 09/04/2012 08/28/2016 Overview: 09/04: S/p Colpo documented as of this encounter (statuses as of 11/11/2021) [facility]* Problem Noted Date Resolved Date 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/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 09/04/2012 08/28/2016 Overview: 09/04: S/p Colpo documented as of this encounter (statuses as of 11/11/2021) [facility]* Problem Noted Date Resolved Date 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/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 09/04/2012 08/28/2016 Overview: 09/04: S/p Colpo documented as of this encounter (statuses as of 11/12/2021) [facility]* Problem Noted Date Resolved Date 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/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 09/04/2012 08/28/2016 Overview: 09/04: S/p Colpo documented as of this encounter (statuses as of 11/13/2021) [facility]* Problem Noted Date Resolved Date 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/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 09/04/2012 08/28/2016 Overview: 09/04: S/p Colpo documented as of this encounter (statuses as of 11/13/2021) [facility]* Problem Noted Date Resolved Date 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/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 09/04/2012 08/28/2016 Overview: 09/04: S/p Colpo documented as of this encounter (statuses as of 11/15/2021) [facility]* Problem Noted Date Resolved Date 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/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 09/04/2012 08/28/2016 Overview: 09/04: S/p Colpo documented as of this encounter (statuses as of 11/15/2021) [facility]* Problem Noted Date Resolved Date 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/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 09/04/2012 08/28/2016 Overview: 09/04: S/p Colpo documented as of this encounter (statuses as of 11/15/2021) [facility]* Problem Noted Date Resolved Date 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/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 09/04/2012 08/28/2016 Overview: 09/04: S/p Colpo documented as of this encounter (statuses as of 11/16/2021) [facility]* Problem Noted Date Resolved Date 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/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 09/04/2012 08/28/2016 Overview: 09/04: S/p Colpo documented as of this encounter (statuses as of 11/17/2021) [facility]* Problem Noted Date Resolved Date 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/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 09/04/2012 08/28/2016 Overview: 09/04: S/p Colpo documented as of this encounter (statuses as of 11/17/2021) [facility]* Problem Noted Date Resolved Date 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/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 09/04/2012 08/28/2016 Overview: 09/04: S/p Colpo documented as of this encounter (statuses as of 11/18/2021) [facility]* Problem Noted Date Resolved Date 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/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 09/04/2012 08/28/2016 Overview: 09/04: S/p Colpo documented as of this encounter (statuses as of 11/19/2021) [facility]* Problem Noted Date Resolved Date 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/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 09/04/2012 08/28/2016 Overview: 09/04: S/p Colpo documented as of this encounter (statuses as of 11/19/2021) [facility]* Problem Noted Date Resolved Date 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/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 09/04/2012 08/28/2016 Overview: 09/04: S/p Colpo documented as of this encounter (statuses as of 11/22/2021) [facility]* Problem Noted Date Resolved Date 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/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 09/04/2012 08/28/2016 Overview: 09/04: S/p Colpo documented as of this encounter (statuses as of 11/23/2021) [facility]* Problem Noted Date Resolved Date 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/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 09/04/2012 08/28/2016 Overview: 09/04: S/p Colpo documented as of this encounter (statuses as of 11/23/2021) [facility]* Problem Noted Date Resolved Date 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/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 09/04/2012 08/28/2016 Overview: 09/04: S/p Colpo documented as of this encounter (statuses as of 11/24/2021) [facility]* Problem Noted Date Resolved Date 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/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 09/04/2012 08/28/2016 Overview: 09/04: S/p Colpo documented as of this encounter (statuses as of 11/24/2021) [facility]* Problem Noted Date Resolved Date 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/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 09/04/2012 08/28/2016 Overview: 09/04: S/p Colpo documented as of this encounter (statuses as of 11/27/2021) [facility]* Problem Noted Date Resolved Date 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/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 09/04/2012 08/28/2016 Overview: 09/04: S/p Colpo documented as of this encounter (statuses as of 11/29/2021) [facility]* Problem Noted Date Resolved Date 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/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 09/04/2012 08/28/2016 Overview: 09/04: S/p Colpo documented as of this encounter (statuses as of 12/01/2021) [facility]* Problem Noted Date Resolved Date 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/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 09/04/2012 08/28/2016 Overview: 09/04: S/p Colpo documented as of this encounter (statuses as of 12/08/2021) [facility]* Problem Noted Date Resolved Date 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/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 09/04/2012 08/28/2016 Overview: 09/04: S/p Colpo documented as of this encounter (statuses as of 12/09/2021) [facility] History of Past illness Narrative* Problem Noted Date Resolved Date 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/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 09/04/2012 08/28/2016 Overview: 09/04: S/p Colpo documented as of this encounter (statuses as of 12/09/2021) [facility] of Past illness Narrative* Problem Noted Date Resolved Date 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/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 09/04/2012 08/28/2016 Overview: 09/04: S/p Colpo documented as of this encounter (statuses as of 12/14/2021) [facility] of Past illness Narrative* Problem Noted Date Resolved Date 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/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 09/04/2012 08/28/2016 Overview: 09/04: S/p Colpo documented as of this encounter (statuses as of 12/15/2021) [facility] of Past illness Narrative* Problem Noted Date Resolved Date 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/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 09/04/2012 08/28/2016 Overview: 09/04: S/p Colpo documented as of this encounter (statuses as of 12/16/2021) [facility] of Past illness Narrative* Problem Noted Date Resolved Date 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/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 09/04/2012 08/28/2016 Overview: 09/04: S/p Colpo documented as of this encounter (statuses as of 12/16/2021) [facility] of Past illness Narrative* Problem Noted Date Resolved Date 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/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 09/04/2012 08/28/2016 Overview: 09/04: S/p Colpo documented as of this encounter (statuses as of 01/04/2022) [facility] of Past illness Narrative* Problem Noted Date Resolved Date 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/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 09/04/2012 08/28/2016 Overview: 09/04: S/p Colpo documented as of this encounter (statuses as of 01/06/2022) [facility] of Past illness Narrative* Problem Noted Date Resolved Date 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/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 09/04/2012 08/28/2016 Overview: 09/04: S/p Colpo documented as of this encounter (statuses as of 01/06/2022) [facility] of Past illness Narrative* Problem Noted Date Resolved Date 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/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 09/04/2012 08/28/2016 Overview: 09/04: S/p Colpo documented as of this encounter (statuses as of 01/26/2022) [facility] of Past illness Narrative* Problem Noted Date Resolved Date 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/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 09/04/2012 08/28/2016 Overview: 09/04: S/p Colpo documented as of this encounter (statuses as of 01/27/2022) [facility] of Past illness Narrative* Problem Noted Date Resolved Date 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/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 09/04/2012 08/28/2016 Overview: 09/04: S/p Colpo documented as of this encounter (statuses as of 02/02/2022) [facility] of Past illness Narrative* Problem Noted Date Resolved Date 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/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 09/04/2012 08/28/2016 Overview: 09/04: S/p Colpo documented as of this encounter (statuses as of 02/07/2022) [facility] of Past illness Narrative* Problem Noted Date Resolved Date 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/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 09/04/2012 08/28/2016 Overview: 09/04: S/p Colpo documented as of this encounter (statuses as of 02/08/2022) [facility] History of Past illness Narrative* Problem Noted Date Resolved Date 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/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 09/04/2012 08/28/2016 Overview: 09/04: S/p Colpo documented as of this encounter (statuses as of 02/13/2022) [facility] History of Past illness Narrative* Problem Noted Date Resolved Date 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/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 09/04/2012 08/28/2016 Overview: 09/04: S/p Colpo documented as of this encounter (statuses as of 02/16/2022) [facility] History of Past illness Narrative* Problem Noted Date Resolved Date 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/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 09/04/2012 08/28/2016 Overview: 09/04: S/p Colpo documented as of this encounter (statuses as of 02/17/2022) [facility] History of Past illness Narrative* Problem Noted Date Resolved Date 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/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 09/04/2012 08/28/2016 Overview: 09/04: S/p Colpo documented as of this encounter (statuses as of 02/20/2022) [facility] History of Past illness Narrative* Problem Noted Date Resolved Date 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/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 09/04/2012 08/28/2016 Overview: 09/04: S/p Colpo documented as of this encounter (statuses as of 02/20/2022) [facility] History of Past illness Narrative* Problem Noted Date Resolved Date 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/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 09/04/2012 08/28/2016 Overview: 09/04: S/p Colpo documented as of this encounter (statuses as of 02/21/2022) [facility] History of Past illness Narrative* Problem Noted Date Resolved Date 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/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 09/04/2012 08/28/2016 Overview: 09/04: S/p Colpo documented as of this encounter (statuses as of 02/28/2022) [facility] History of Past illness Narrative* Problem Noted Date Resolved Date 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/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 09/04/2012 08/28/2016 Overview: 09/04: S/p Colpo documented as of this encounter (statuses as of 03/02/2022) [facility] History of Past illness Narrative* Problem Noted Date Resolved Date 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/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 09/04/2012 08/28/2016 Overview: 09/04: S/p Colpo documented as of this encounter (statuses as of 03/08/2022) [facility] History of Past illness Narrative* Problem Noted Date Resolved Date 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/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 09/04/2012 08/28/2016 Overview: 09/04: S/p Colpo documented as of this encounter (statuses as of 03/09/2022) [facility] History of Past illness Narrative* Problem Noted Date Resolved Date 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/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 09/04/2012 08/28/2016 Overview: 09/04: S/p Colpo documented as of this encounter (statuses as of 03/09/2022) [facility] History of Past illness Narrative* Problem Noted Date Resolved Date 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/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 09/04/2012 08/28/2016 Overview: 09/04: S/p Colpo documented as of this encounter (statuses as of 03/14/2022) [facility] History of Past illness Narrative* Problem Noted Date Resolved Date 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/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 09/04/2012 08/28/2016 Overview: 09/04: S/p Colpo documented as of this encounter (statuses as of 03/15/2022) [facility] History of Past illness Narrative* Problem Noted Date Resolved Date 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/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 09/04/2012 08/28/2016 Overview: 09/04: S/p Colpo documented as of this encounter (statuses as of 03/21/2022) [facility] History of Past illness Narrative* Problem Noted Date Resolved Date 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/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 09/04/2012 08/28/2016 Overview: 09/04: S/p Colpo documented as of this encounter (statuses as of 03/23/2022) [facility] History of Past illness Narrative* Problem Noted Date Resolved Date 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/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 09/04/2012 08/28/2016 Overview: 09/04: S/p Colpo documented as of this encounter (statuses as of 03/24/2022) [facility] History of Past illness Narrative* Problem Noted Date Resolved Date 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/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 09/04/2012 08/28/2016 Overview: 09/04: S/p Colpo documented as of this encounter (statuses as of 03/27/2022) [facility] History of Past illness Narrative* Problem Noted Date Resolved Date 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/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 09/04/2012 08/28/2016 Overview: 09/04: S/p Colpo documented as of this encounter (statuses as of 03/28/2022) [facility] History of Past illness Narrative* Problem Noted Date Resolved Date 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/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 09/04/2012 08/28/2016 Overview: 09/04: S/p Colpo documented as of this encounter (statuses as of 03/29/2022) [facility] History of Past illness Narrative* Problem Noted Date Resolved Date 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/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 09/04/2012 08/28/2016 Overview: 09/04: S/p Colpo documented as of this encounter (statuses as of 04/11/2022) [facility] History of Past illness Narrative* Problem Noted Date Resolved Date 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/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 09/04/2012 08/28/2016 Overview: 09/04: S/p Colpo documented as of this encounter (statuses as of 04/17/2022) [facility] History of Past illness Narrative* Problem Noted Date Resolved Date 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/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 09/04/2012 08/28/2016 Overview: 09/04: S/p Colpo documented as of this encounter (statuses as of 04/25/2022) [facility] History of Past illness Narrative* Problem Noted Date Resolved Date 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/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 09/04/2012 08/28/2016 Overview: 09/04: S/p Colpo documented as of this encounter (statuses as of 04/26/2022) [facility] History of Past illness Narrative* Problem Noted Date Resolved Date 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/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 09/04/2012 08/28/2016 Overview: 09/04: S/p Colpo documented as of this encounter (statuses as of 04/27/2022) [facility] History of Past illness Narrative* Problem Noted Date Resolved Date 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/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 09/04/2012 08/28/2016 Overview: 09/04: S/p Colpo documented as of this encounter (statuses as of 04/30/2022) [facility] History of Past illness Narrative* Problem Noted Date Resolved Date 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/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 09/04/2012 08/28/2016 Overview: 09/04: S/p Colpo documented as of this encounter (statuses as of 05/01/2022) [facility] History of Past illness Narrative* Problem Noted Date Resolved Date 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/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 09/04/2012 08/28/2016 Overview: 09/04: S/p Colpo documented as of this encounter (statuses as of 05/02/2022) [facility] History of Past illness Narrative* Problem Noted Date Resolved Date 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/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 09/04/2012 08/28/2016 Overview: 09/04: S/p Colpo documented as of this encounter (statuses as of 05/03/2022) [facility] History of Past illness Narrative* Problem Noted Date Resolved Date 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/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 09/04/2012 08/28/2016 Overview: 09/04: S/p Colpo documented as of this encounter (statuses as of 05/04/2022) [facility] History of Past illness Narrative* Problem Noted Date Resolved Date 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/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 09/04/2012 08/28/2016 Overview: 09/04: S/p Colpo documented as of this encounter (statuses as of 05/05/2022) [facility] History of Past illness Narrative* Problem Noted Date Resolved Date 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/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 09/04/2012 08/28/2016 Overview: 09/04: S/p Colpo documented as of this encounter (statuses as of 05/09/2022) [facility] of Past illness Narrative* Problem Noted Date Resolved Date 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/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 09/04/2012 08/28/2016 Overview: 09/04: S/p Colpo documented as of this encounter (statuses as of 05/15/2022) [facility] History of Past illness Narrative* Problem Noted Date Resolved Date 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/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 09/04/2012 08/28/2016 Overview: 09/04: S/p Colpo documented as of this encounter (statuses as of 05/18/2022) [facility] History of Past illness Narrative* Problem Noted Date Resolved Date 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/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 09/04/2012 08/28/2016 Overview: 09/04: S/p Colpo documented as of this encounter (statuses as of 05/22/2022) [facility] of Past illness Narrative* Problem Noted Date Resolved Date 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/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 09/04/2012 08/28/2016 Overview: 09/04: S/p Colpo documented as of this encounter (statuses as of 05/22/2022) [facility] History of Past illness Narrative* Problem Noted Date Resolved Date 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/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 09/04/2012 08/28/2016 Overview: 09/04: S/p Colpo documented as of this encounter (statuses as of 05/24/2022) [facility] of Past illness Narrative* Problem Noted Date Resolved Date 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/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 09/04/2012 08/28/2016 Overview: 09/04: S/p Colpo documented as of this encounter (statuses as of 06/05/2022) [facility] Past [facility] Narrative* Problem Noted Date Resolved Date 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/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 09/04/2012 08/28/2016 Overview: 09/04: S/p Colpo documented as of this encounter (statuses as of 06/05/2022) [facility] Past [facility] Narrative* Problem Noted Date Resolved Date 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/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 09/04/2012 08/28/2016 Overview: 09/04: S/p Colpo documented as of this encounter (statuses as of 06/08/2022) [facility] Past [facility]ative* Problem Noted Date Resolved Date 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/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 09/04/2012 08/28/2016 Overview: 09/04: S/p Colpo documented as of this encounter (statuses as of 06/09/2022) [facility]* Problem Noted Date Resolved Date 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/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 09/04/2012 08/28/2016 Overview: 09/04: S/p Colpo documented as of this encounter (statuses as of 06/09/2022) [facility]* Problem Noted Date Resolved Date 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/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 09/04/2012 08/28/2016 Overview: 09/04: S/p Colpo documented as of this encounter (statuses as of 06/12/2022) [facility]* Problem Noted Date Resolved Date 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/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 09/04/2012 08/28/2016 Overview: 09/04: S/p Colpo documented as of this encounter (statuses as of 06/12/2022) [facility]* Problem Noted Date Resolved Date 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/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 09/04/2012 08/28/2016 Overview: 09/04: S/p Colpo documented as of this encounter (statuses as of 06/13/2022) [facility]* Problem Noted Date Resolved Date 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/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 09/04/2012 08/28/2016 Overview: 09/04: S/p Colpo documented as of this encounter (statuses as of 06/13/2022) [facility]* Problem Noted Date Resolved Date 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/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 09/04/2012 08/28/2016 Overview: 09/04: S/p Colpo documented as of this encounter (statuses as of 06/14/2022) [facility]* Problem Noted Date Resolved Date 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/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 09/04/2012 08/28/2016 Overview: 09/04: S/p Colpo documented as of this encounter (statuses as of 06/15/2022) [facility]* Problem Noted Date Resolved Date 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/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 09/04/2012 08/28/2016 Overview: 09/04: S/p Colpo documented as of this encounter (statuses as of 06/16/2022) [facility]* Problem Noted Date Resolved Date 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/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 09/04/2012 08/28/2016 Overview: 09/04: S/p Colpo documented as of this encounter (statuses as of 06/19/2022) [facility]* Problem Noted Date Resolved Date 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/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 09/04/2012 08/28/2016 Overview: 09/04: S/p Colpo documented as of this encounter (statuses as of 06/22/2022) [facility]* Problem Noted Date Resolved Date 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/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 09/04/2012 08/28/2016 Overview: 09/04: S/p Colpo documented as of this encounter (statuses as of 06/23/2022) [facility]* Problem Noted Date Resolved Date 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/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 09/04/2012 08/28/2016 Overview: 09/04: S/p Colpo documented as of this encounter (statuses as of 06/26/2022) [facility]* Problem Noted Date Resolved Date 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/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 09/04/2012 08/28/2016 Overview: 09/04: S/p Colpo documented as of this encounter (statuses as of 06/27/2022) [facility]* Problem Noted Date Resolved Date 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/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 09/04/2012 08/28/2016 Overview: 09/04: S/p Colpo documented as of this encounter (statuses as of 07/02/2022) [facility]* Problem Noted Date Resolved Date 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/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 09/04/2012 08/28/2016 Overview: 09/04: S/p Colpo documented as of this encounter (statuses as of 07/11/2022) [facility]* Problem Noted Date Resolved Date 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/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 09/04/2012 08/28/2016 Overview: 09/04: S/p Colpo documented as of this encounter (statuses as of 07/12/2022) [facility]* Problem Noted Date Resolved Date 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/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 09/04/2012 08/28/2016 Overview: 09/04: S/p Colpo documented as of this encounter (statuses as of 07/12/2022) [facility]* Problem Noted Date Resolved Date 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/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 09/04/2012 08/28/2016 Overview: 09/04: S/p Colpo documented as of this encounter (statuses as of 07/16/2022) [facility]* Problem Noted Date Resolved Date 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/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 09/04/2012 08/28/2016 Overview: 09/04: S/p Colpo documented as of this encounter (statuses as of 07/21/2022) [facility]* Problem Noted Date Resolved Date 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/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 09/04/2012 08/28/2016 Overview: 09/04: S/p Colpo documented as of this encounter (statuses as of 07/21/2022) [facility]* Problem Noted Date Resolved Date 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/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 09/04/2012 08/28/2016 Overview: 09/04: S/p Colpo documented as of this encounter (statuses as of 07/31/2022) [facility]* Problem Noted Date Resolved Date 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/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 09/04/2012 08/28/2016 Overview: 09/04: S/p Colpo documented as of this encounter (statuses as of 08/01/2022) [facility]* Problem Noted Date Resolved Date 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/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 09/04/2012 08/28/2016 Overview: 09/04: S/p Colpo documented as of this encounter (statuses as of 08/03/2022) [facility]* Problem Noted Date Resolved Date 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/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 09/04/2012 08/28/2016 Overview: 09/04: S/p Colpo documented as of this encounter (statuses as of 08/04/2022) [facility] History of Past illness Narrative* Problem Noted Date Resolved Date 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/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 09/04/2012 08/28/2016 Overview: 09/04: S/p Colpo documented as of this encounter (statuses as of 08/04/2022) [facility] Past illness Narrative* Problem Noted Date Resolved Date 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/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 09/04/2012 08/28/2016 Overview: 09/04: S/p Colpo documented as of this encounter (statuses as of 08/09/2022) [facility] of Past illness Narrative* Problem Noted Date Resolved Date 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/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 09/04/2012 08/28/2016 Overview: 09/04: S/p Colpo documented as of this encounter (statuses as of 08/14/2022) [facility] Past illness Narrative* Problem Noted Date Resolved Date 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/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 09/04/2012 08/28/2016 Overview: 09/04: S/p Colpo documented as of this encounter (statuses as of 08/15/2022) [facility] of Past illness Narrative* Problem Noted Date Resolved Date 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/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 09/04/2012 08/28/2016 Overview: 09/04: S/p Colpo documented as of this encounter (statuses as of 08/24/2022) [facility] of Past illness Narrative* Problem Noted Date Resolved Date 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/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 09/04/2012 08/28/2016 Overview: 09/04: S/p Colpo documented as of this encounter (statuses as of 08/24/2022) [facility] of Past illness Narrative* Problem Noted Date Resolved Date 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/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 09/04/2012 08/28/2016 Overview: 09/04: S/p Colpo documented as of this encounter (statuses as of 08/29/2022) [facility] of Past illness Narrative* Problem Noted Date Resolved Date 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/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 09/04/2012 08/28/2016 Overview: 09/04: S/p Colpo documented as of this encounter (statuses as of 08/30/2022) [facility] of Past illness Narrative* Problem Noted Date Resolved Date 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/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 09/04/2012 08/28/2016 Overview: 09/04: S/p Colpo documented as of this encounter (statuses as of 09/06/2022) [facility] of Past illness Narrative* Problem Noted Date Resolved Date 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/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 09/04/2012 08/28/2016 Overview: 09/04: S/p Colpo documented as of this encounter (statuses as of 09/15/2022) [facility] of Past illness Narrative* Problem Noted Date Resolved Date 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/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 09/04/2012 08/28/2016 Overview: 09/04: S/p Colpo documented as of this encounter (statuses as of 09/18/2022) [facility] of Past illness Narrative* Problem Noted Date Resolved Date 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/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 09/04/2012 08/28/2016 Overview: 09/04: S/p Colpo documented as of this encounter (statuses as of 09/18/2022) [facility] of Past illness Narrative* Problem Noted Date Resolved Date 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/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 09/04/2012 08/28/2016 Overview: 09/04: S/p Colpo documented as of this encounter (statuses as of 09/19/2022) [facility] History of Past illness Narrative* Problem Noted Date Resolved Date 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/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 09/04/2012 08/28/2016 Overview: 09/04: S/p Colpo documented as of this encounter (statuses as of 09/19/2022) [facility] History of Past illness Narrative* Problem Noted Date Resolved Date 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/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 09/04/2012 08/28/2016 Overview: 09/04: S/p Colpo documented as of this encounter (statuses as of 09/29/2022) [facility] History of Past illness Narrative* Problem Noted Date Resolved Date 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/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 09/04/2012 08/28/2016 Overview: 09/04: S/p Colpo documented as of this encounter (statuses as of 10/03/2022) [facility] History of Past illness Narrative* Problem Noted Date Resolved Date 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/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 09/04/2012 08/28/2016 Overview: 09/04: S/p Colpo documented as of this encounter (statuses as of 10/04/2022) [facility] History of Past illness Narrative* Problem Noted Date Resolved Date 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/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 09/04/2012 08/28/2016 Overview: 09/04: S/p Colpo documented as of this encounter (statuses as of 10/09/2022) [facility] History of Past illness Narrative* Problem Noted Date Resolved Date 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/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 09/04/2012 08/28/2016 Overview: 09/04: S/p Colpo documented as of this encounter (statuses as of 10/09/2022) [facility] History of Past illness Narrative* Problem Noted Date Resolved Date 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/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 09/04/2012 08/28/2016 Overview: 09/04: S/p Colpo documented as of this encounter (statuses as of 10/10/2022) [facility] History of Past illness Narrative* Problem Noted Date Resolved Date 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/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 09/04/2012 08/28/2016 Overview: 09/04: S/p Colpo documented as of this encounter (statuses as of 10/30/2022) [facility] History of Past illness Narrative* Problem Noted Date Resolved Date 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/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 09/04/2012 08/28/2016 Overview: 09/04: S/p Colpo documented as of this encounter (statuses as of 10/31/2022) [facility] History of Past illness Narrative* Problem Noted Date Resolved Date 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/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 09/04/2012 08/28/2016 Overview: 09/04: S/p Colpo documented as of this encounter (statuses as of 11/01/2022) [facility] History of Past illness Narrative* Problem Noted Date Resolved Date 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/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 09/04/2012 08/28/2016 Overview: 09/04: S/p Colpo documented as of this encounter (statuses as of 11/02/2022) [facility] History of Past illness Narrative* Problem Noted Date Resolved Date 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/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 09/04/2012 08/28/2016 Overview: 09/04: S/p Colpo documented as of this encounter (statuses as of 11/20/2022) [facility] History of Past illness Narrative* Problem Noted Date Resolved Date 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/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 09/04/2012 08/28/2016 Overview: 09/04: S/p Colpo documented as of this encounter (statuses as of 11/20/2022) [facility] History of Past illness Narrative* Problem Noted Date Resolved Date 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/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 09/04/2012 08/28/2016 Overview: 09/04: S/p Colpo documented as of this encounter (statuses as of 12/12/2022) [facility] History of Past illness Narrative* Problem Noted Date Resolved Date 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/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 09/04/2012 08/28/2016 Overview: 09/04: S/p Colpo documented as of this encounter (statuses as of 12/12/2022) [facility] History of Past illness Narrative* Problem Noted Date Resolved Date 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/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 09/04/2012 08/28/2016 Overview: 09/04: S/p Colpo documented as of this encounter (statuses as of 12/13/2022) [facility] History of Past illness Narrative* Problem Noted Date Resolved Date 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/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 09/04/2012 08/28/2016 Overview: 09/04: S/p Colpo documented as of this encounter (statuses as of 12/14/2022) [facility] History of Past illness Narrative* Problem Noted Date Resolved Date 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/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 09/04/2012 08/28/2016 Overview: 09/04: S/p Colpo documented as of this encounter (statuses as of 12/14/2022) [facility] History of Past illness Narrative* Problem Noted Date Resolved Date 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/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 09/04/2012 08/28/2016 Overview: 09/04: S/p Colpo documented as of this encounter (statuses as of 01/02/2023) [facility] History of Past illness Narrative* Problem Noted Date Resolved Date 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/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 09/04/2012 08/28/2016 Overview: 09/04: S/p Colpo documented as of this encounter (statuses as of 01/02/2023) [facility] History of Past illness Narrative* Problem Noted Date Resolved Date 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/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 09/04/2012 08/28/2016 Overview: 09/04: S/p Colpo documented as of this encounter (statuses as of 01/03/2023) [facility] History of Past illness Narrative* Problem Noted Date Resolved Date 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/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 09/04/2012 08/28/2016 Overview: 09/04: S/p Colpo documented as of this encounter (statuses as of 01/03/2023) [facility] History of Past illness Narrative* Problem Noted Date Diagnosed Date Resolved Date Breakthrough bleeding on control pills 3 07/12/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 09/04/2012 08/28/2016 Overview: 09/04: S/p Colpo documented as of this encounter (statuses as of 01/23/2023) [facility] History of Past illness Narrative* Problem Noted Date Diagnosed Date Resolved Date Breakthrough bleeding on control pills 3 07/12/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 09/04/2012 08/28/2016 Overview: 09/04: S/p Colpo documented as of this encounter (statuses as of 01/23/2023) [facility] History of Past illness Narrative* Problem Noted Date Diagnosed Date Resolved Date Breakthrough bleeding on control pills 3 07/12/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 09/04/2012 08/28/2016 Overview: 09/04: S/p Colpo documented as of this encounter (statuses as of 01/23/2023) [facility] History of Past illness Narrative* Problem Noted Date Diagnosed Date Resolved Date Breakthrough bleeding on control pills 3 07/12/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 09/04/2012 08/28/2016 Overview: 09/04: S/p Colpo documented as of this encounter (statuses as of 01/24/2023) [facility] History of Past illness Narrative* Problem Noted Date Diagnosed Date Resolved Date Breakthrough bleeding on control pills 3 07/12/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 09/04/2012 08/28/2016 Overview: 09/04: S/p Colpo documented as of this encounter (statuses as of 02/08/2023) [facility] History of Past illness Narrative* Problem Noted Date Diagnosed Date Resolved Date Breakthrough bleeding on control pills 3 07/12/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 09/04/2012 08/28/2016 Overview: 09/04: S/p Colpo documented as of this encounter (statuses as of 02/09/2023) [facility] History of Past illness Narrative* Problem Noted Date Diagnosed Date Resolved Date Breakthrough bleeding on control pills 3 07/12/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 09/04/2012 08/28/2016 Overview: 09/04: S/p Colpo documented as of this encounter (statuses as of 02/13/2023) [facility] History of Past illness Narrative* Problem Noted Date Diagnosed Date Resolved Date Breakthrough bleeding on control pills 3 07/12/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 09/04/2012 08/28/2016 Overview: 09/04: S/p Colpo documented as of this encounter (statuses as of 02/13/2023) [facility] History of Past illness Narrative* Problem Noted Date Diagnosed Date Resolved Date Breakthrough bleeding on control pills 3 07/12/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 09/04/2012 08/28/2016 Overview: 09/04: S/p Colpo documented as of this encounter (statuses as of 02/14/2023) [facility] History of Past illness Narrative* Problem Noted Date Diagnosed Date Resolved Date Breakthrough bleeding on control pills 3 07/12/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 09/04/2012 08/28/2016 Overview: 09/04: S/p Colpo documented as of this encounter (statuses as of 02/20/2023) [facility] History of Past illness Narrative* Problem Noted Date Diagnosed Date Resolved Date Breakthrough bleeding on control pills 3 07/12/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 09/04/2012 08/28/2016 Overview: 09/04: S/p Colpo documented as of this encounter (statuses as of 02/23/2023) [facility] History of Past illness Narrative* Problem Noted Date Diagnosed Date Resolved Date Breakthrough bleeding on control pills 3 07/12/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 09/04/2012 08/28/2016 Overview: 09/04: S/p Colpo documented as of this encounter (statuses as of 02/27/2023) [facility] of Past illness Narrative* Problem Noted Date Diagnosed Date Resolved Date Breakthrough bleeding on control pills 3 07/12/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 09/04/2012 08/28/2016 Overview: 09/04: S/p Colpo documented as of this encounter (statuses as of 03/01/2023) [facility] of Past illness Narrative* Problem Noted Date Diagnosed Date Resolved Date Breakthrough bleeding on control pills 3 07/12/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 09/04/2012 08/28/2016 Overview: 09/04: S/p Colpo documented as of this encounter (statuses as of 03/03/2023) [facility] of Past illness Narrative* Problem Noted Date Diagnosed Date Resolved Date Breakthrough bleeding on control pills 3 07/12/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 09/04/2012 08/28/2016 Overview: 09/04: S/p Colpo documented as of this encounter (statuses as of 03/08/2023) [facility] of Past illness Narrative* Problem Noted Date Diagnosed Date Resolved Date Breakthrough bleeding on control pills 3 07/12/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 09/04/2012 08/28/2016 Overview: 09/04: S/p Colpo documented as of this encounter (statuses as of 03/17/2023) [facility] Past [facility] Narrative* Problem Noted Date Diagnosed Date Resolved Date Breakthrough bleeding on control pills 3 07/12/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 09/04/2012 08/28/2016 Overview: 09/04: S/p Colpo documented as of this encounter (statuses as of 03/20/2023) [facility] Past [facility]arrative* Problem Noted Date Diagnosed Date Resolved Date Breakthrough bleeding on control pills 3 07/12/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 09/04/2012 08/28/2016 Overview: 09/04: S/p Colpo documented as of this encounter (statuses as of 03/21/2023) [facility] Past [facility]arrative* Problem Noted Date Diagnosed Date Resolved Date Breakthrough bleeding on control pills 3 07/12/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 09/04/2012 08/28/2016 Overview: 09/04: S/p Colpo documented as of this encounter (statuses as of 03/23/2023) [facility] Past [facility]ative* Problem Noted Date Diagnosed Date Resolved Date Breakthrough bleeding on control pills 3 07/12/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 09/04/2012 08/28/2016 Overview: 09/04: S/p Colpo documented as of this encounter (statuses as of 03/23/2023) [facility] Past [facility]arrative* Problem Noted Date Diagnosed Date Resolved Date Breakthrough bleeding on control pills 3 07/12/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 09/04/2012 08/28/2016 Overview: 09/04: S/p Colpo documented as of this encounter (statuses as of 04/17/2023) [facility]* Problem Noted Date Diagnosed Date Resolved Date Breakthrough bleeding on control pills 3 07/12/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 09/04/2012 08/28/2016 Overview: 09/04: S/p Colpo documented as of this encounter (statuses as of 04/17/2023) [facility]* Problem Noted Date Diagnosed Date Resolved Date Breakthrough bleeding on control pills 3 07/12/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 09/04/2012 08/28/2016 Overview: 09/04: S/p Colpo documented as of this encounter (statuses as of 04/20/2023) [facility]* Problem Noted Date Diagnosed Date Resolved Date Breakthrough bleeding on control pills 3 07/12/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 09/04/2012 08/28/2016 Overview: 09/04: S/p Colpo documented as of this encounter (statuses as of 04/21/2023) [facility]* Problem Noted Date Diagnosed Date Resolved Date Breakthrough bleeding on control pills 3 07/12/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 09/04/2012 08/28/2016 Overview: 09/04: S/p Colpo documented as of this encounter (statuses as of 04/24/2023) [facility] Past [facility]arrative* Problem Noted Date Diagnosed Date Resolved Date Breakthrough bleeding on control pills 3 07/12/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 09/04/2012 08/28/2016 Overview: 09/04: S/p Colpo documented as of this encounter (statuses as of 04/28/2023) [facility] Past [facility]arrative* Problem Noted Date Diagnosed Date Resolved Date Breakthrough bleeding on control pills 3 07/12/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 09/04/2012 08/28/2016 Overview: 09/04: S/p Colpo documented as of this encounter (statuses as of 05/01/2023) [facility]* Problem Noted Date Diagnosed Date Resolved Date Breakthrough bleeding on control pills 3 07/12/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 09/04/2012 08/28/2016 Overview: 09/04: S/p Colpo documented as of this encounter (statuses as of 05/04/2023) [facility]* Problem Noted Date Diagnosed Date Resolved Date Breakthrough bleeding on control pills 3 07/12/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 09/04/2012 08/28/2016 Overview: 09/04: S/p Colpo documented as of this encounter (statuses as of 05/08/2023) [facility]* Problem Noted Date Diagnosed Date Resolved Date Breakthrough bleeding on control pills 3 07/12/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 09/04/2012 08/28/2016 Overview: 09/04: S/p Colpo documented as of this encounter (statuses as of 05/08/2023) [facility]* Problem Noted Date Diagnosed Date Resolved Date Breakthrough bleeding on control pills 3 07/12/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 09/04/2012 08/28/2016 Overview: 09/04: S/p Colpo documented as of this encounter (statuses as of 05/08/2023) [facility]* Problem Noted Date Diagnosed Date Resolved Date Breakthrough bleeding on control pills 3 07/12/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 09/04/2012 08/28/2016 Overview: 09/04: S/p Colpo documented as of this encounter (statuses as of 05/13/2023) [facility]* Problem Noted Date Diagnosed Date Resolved Date Breakthrough bleeding on control pills 3 07/12/2015 ASCUS with positive high risk HPV 09/04/2012 08/28/2016 Overview: 09/04: S/p Colpo documented as of this encounter (statuses as of 05/13/2023) [facility]* Problem Noted Date Diagnosed Date Resolved Date Breakthrough bleeding on control pills 3 07/12/2015 ASCUS with positive high risk HPV 09/04/2012 08/28/2016 Overview: 09/04: S/p Colpo documented as of this encounter (statuses as of 05/13/2023) [facility] Past [facility]* Problem Noted Date Diagnosed Date Resolved Date Breakthrough bleeding on control pills 3 07/12/2015 ASCUS with positive high risk HPV 09/04/2012 08/28/2016 Overview: 09/04: S/p Colpo documented as of this encounter (statuses as of 05/13/2023) [facility]* Problem Noted Date Diagnosed Date Resolved Date Breakthrough bleeding on control pills 3 07/12/2015 ASCUS with positive high risk HPV 09/04/2012 08/28/2016 Overview: 09/04: S/p Colpo documented as of this encounter (statuses as of 05/13/2023) [facility]* Problem Noted Date Diagnosed Date Resolved Date Breakthrough bleeding on control pills 3 07/12/2015 ASCUS with positive high risk HPV 09/04/2012 08/28/2016 Overview: 09/04: S/p Colpo documented as of this encounter (statuses as of 05/16/2023) [facility]* Problem Noted Date Diagnosed Date Resolved Date Breakthrough bleeding on control pills 3 07/12/2015 ASCUS with positive high risk HPV 09/04/2012 08/28/2016 Overview: 09/04: S/p Colpo documented as of this encounter (statuses as of 05/17/2023) [facility]* Problem Noted Date Diagnosed Date Resolved Date Breakthrough bleeding on control pills 3 07/12/2015 ASCUS with positive high risk HPV 09/04/2012 08/28/2016 Overview: 09/04: S/p Colpo documented as of this encounter (statuses as of 05/30/2023) [facility] History of Past illness Narrative* Problem Noted Date Diagnosed Date Resolved Date Breakthrough bleeding on control pills 3 07/12/2015 ASCUS with positive high risk HPV 09/04/2012 08/28/2016 Overview: 09/04: S/p Colpo documented as of this encounter (statuses as of 06/07/2023) [facility] History of Past illness Narrative* Problem Noted Date Diagnosed Date Resolved Date Breakthrough bleeding on control pills 3 07/12/2015 ASCUS with positive high risk HPV 09/04/2012 08/28/2016 Overview: 09/04: S/p Colpo documented as of this encounter (statuses as of 06/13/2023) [facility] History of Past illness Narrative* Problem Noted Date Diagnosed Date Resolved Date Breakthrough bleeding on control pills 3 07/12/2015 ASCUS with positive high risk HPV 09/04/2012 08/28/2016 Overview: 09/04: S/p Colpo documented as of this encounter (statuses as of 06/22/2023) [facility] History of Past illness Narrative* Problem Noted Date Diagnosed Date Resolved Date Breakthrough bleeding on control pills 3 07/12/2015 ASCUS with positive high risk HPV 09/04/2012 08/28/2016 Overview: 09/04: S/p Colpo documented as of this encounter (statuses as of 08/13/2023) [facility] History of Past illness Narrative* Problem Noted Date Diagnosed Date Resolved Date Breakthrough bleeding on control pills 3 07/12/2015 ASCUS with positive high risk HPV 09/04/2012 08/28/2016 Overview: 09/04: S/p Colpo documented as of this encounter (statuses as of 09/11/2023) [facility] of Past illness Narrative* Problem Noted Date Diagnosed Date Resolved Date Breakthrough bleeding on control pills 3 07/12/2015 ASCUS with positive high risk HPV 09/04/2012 08/28/2016 Overview: 09/04: S/p Colpo documented as of this encounter (statuses as of 09/12/2023) [facility] History of Past illness Narrative* Problem Noted Date Diagnosed Date Resolved Date Breakthrough bleeding on control pills 3 07/12/2015 ASCUS with positive high risk HPV 09/04/2012 08/28/2016 Overview: 09/04: S/p Colpo documented as of this encounter (statuses as of 10/09/2023) [facility] of Past illness Narrative* Problem Noted Date Diagnosed Date Resolved Date Breakthrough bleeding on control pills 3 07/12/2015 ASCUS with positive high risk HPV 09/04/2012 08/28/2016 Overview: 09/04: S/p Colpo documented as of this encounter (statuses as of 10/09/2023) [facility] History of Past illness Narrative* Problem Noted Date Diagnosed Date Resolved Date Breakthrough bleeding on control pills 3 07/12/2015 ASCUS with positive high risk HPV 09/04/2012 08/28/2016 Overview: 09/04: S/p Colpo documented as of this encounter (statuses as of 10/10/2023) [facility] of Past illness Narrative* Problem Noted Date Diagnosed Date Resolved Date Breakthrough bleeding on control pills 3 07/12/2015 ASCUS with positive high risk HPV 09/04/2012 08/28/2016 Overview: 09/04: S/p Colpo documented as of this encounter (statuses as of 10/11/2023) [facility] Diagnosis Onset Date Resolution Status Cervicogenic headache acute Segmental and somatic dysfunction of cervical region acute Segmental and somatic dysfunction of thoracic region acute Cervicogenic headache acute Segmental and somatic dysfunction of cervical region acute Segmental and somatic dysfunction of lumbar region acute Segmental and somatic dysfunction of thoracic region acute Left breast mass acute [facility] Work Phone: Evaluation note* Diagnosis Malignant neoplasm of left breast in female, estrogen receptor positive, unspecified site of breast Family history of breast cancer Family history of malignant neoplasm of breast [facility] Invasive ductal carcinoma of breast, female, left (HCC)- Primary documented [facility] this encounter [facility]* Diagnosis Malignant neoplasm of upper-outer quadrant of left breast in female, estrogen receptor positive (HCC)- Primary documented in this encounter [facility]* Diagnosis Malignant neoplasm of left female breast, unspecified estrogen receptor status, unspecified site of breast (HCC)- Primary [facility] Diagnosis Invasive ductal carcinoma of breast, female, left (HCC) [facility] Diagnosis HER2-positive carcinoma of left breast (HCC) [facility] Diagnosis Breast disorder- Primary Unspecified breast disorder [facility] this [facility]* Diagnosis Malignant neoplasm of upper-outer quadrant of left breast in female, estrogen receptor positive (HCC)- Primary At risk for lymphedema Other specified conditions influencing health status [facility] Diagnosis Malignant neoplasm of left female breast, unspecified estrogen receptor status, unspecified site of breast (HCC) [facility] On[facility] Date Resolution Status Left breast mass acute Breast cancer acute Breast cancer, left acute Encounter for insertion of venous access port acute [facility] Work Phone: Evaluation note* Diagnosis Breast disorder Unspecified [facility] Breast disorder Unspecified breast disorder [facility] Diagnosis HER2-positive carcinoma of left breast (HCC) Encounter for fertility preservation procedure Malignant neoplasm of upper-outer quadrant of left breast in female, estrogen receptor positive (HCC) Fertility testing [facility] Diagnosis Encounter for fertility preservation counseling prior to cancer therapy- Primary Encounter for fertility preservation counseling HER2-positive carcinoma of left breast (HCC) Encounter for fertility preservation procedure Malignant neoplasm of upper-outer quadrant of left breast in female, estrogen receptor positive (HCC) Fertility testing Encounter for fertility preservation counseling Primary female infertility Female infertility of unspecified origin [facility] Diagnosis Encounter for fertility preservation counseling- Primary [facility] Diagnosis Encounter for fertility preservation procedure- Primary Malignant neoplasm of upper-outer quadrant of left breast in female, estrogen receptor positive (HCC) Fertility testing [facility] Diagnosis Malignant neoplasm of upper-outer quadrant of left breast in female, estrogen receptor positive (HCC)- Primary [facility]* Diagnosis HER2-positive carcinoma of left breast (HCC)- Primary Malignant neoplasm of upper-outer quadrant of left breast in female, estrogen receptor positive (HCC) [facility] Diagnosis Malignant neoplasm of upper-outer quadrant of left breast in female, estrogen receptor positive (HCC)- Primary [facility] Diagnosis HER2-positive carcinoma of left breast (HCC) Primary female infertility Female infertility of unspecified origin Malignant neoplasm of upper-outer quadrant of left breast in female, estrogen receptor positive (HCC) [facility] Diagnosis Malignant neoplasm of upper-outer quadrant of left breast in female, estrogen receptor positive (HCC) [facility]* Diagnosis HER2-positive carcinoma of left breast (HCC) Encounter for fertility preservation procedure Malignant neoplasm of upper-outer quadrant of left breast in female, estrogen receptor positive (HCC) Fertility testing Female infertility Female infertility of unspecified origin Encounter for fertility preservation procedure [facility] Diagnosis Female infertility- Primary Female infertility of unspecified origin Encounter for fertility preservation procedure [facility] Diagnosis Encounter for fertility preservation procedure- Primary [facility] Diagnosis Female infertility- Primary Female infertility of unspecified origin [facility]* Diagnosis HER2-positive carcinoma of left breast (HCC)- Primary [facility] Diagnosis Female infertility- Primary Female infertility of unspecified origin [facility]* Diagnosis History of breast cancer- Primary Personal history of malignant neoplasm of breast [facility] Diagnosis Primary female infertility- Primary Female infertility of unspecified origin [facility]* Diagnosis Malignant neoplasm of upper-outer quadrant of left breast in female, estrogen receptor positive (HCC)- Primary HER2-positive carcinoma of left breast (HCC) [facility]* Diagnosis Malignant neoplasm of upper-outer quadrant of left breast in female, estrogen receptor positive (HCC)- Primary HER2-positive carcinoma of left breast (HCC) [facility]* Diagnosis HER2-positive carcinoma of left breast (HCC)- Primary Malignant neoplasm of upper-outer quadrant of left breast in female, estrogen receptor positive (HCC) [facility]* Diagnosis HER2-positive carcinoma of left breast (HCC)- Primary Malignant neoplasm of upper-outer quadrant of left breast in female, estrogen receptor positive (HCC) [facility]* Diagnosis Malignant neoplasm of upper-outer quadrant of left breast in female, estrogen receptor positive (HCC)- Primary [facility]* Diagnosis Malignant neoplasm of upper-outer quadrant of left breast in female, estrogen receptor positive (HCC) [facility] Diagnosis Malignant neoplasm of upper-outer quadrant of left breast in female, 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) [facility] 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, estrogen receptor positive (HCC) [facility] Diagnosis HER2-positive carcinoma of left breast (HCC)- Primary Malignant neoplasm of upper-outer quadrant of left breast in female, estrogen receptor positive (HCC) [facility] Diagnosis Malignant neoplasm of upper-outer quadrant of left breast in female, estrogen receptor positive (HCC)- Primary HER2-positive carcinoma of left breast (HCC) [facility] Diagnosis HER2-positive carcinoma of left breast (HCC)- Primary Malignant neoplasm of upper-outer quadrant of left breast in female, estrogen receptor positive (HCC) [facility] Diagnosis Malignant neoplasm of upper-outer quadrant of left breast in female, estrogen receptor positive (HCC)- Primary HER2-positive carcinoma of left breast (HCC) [facility] Diagnosis Diarrhea of presumed infectious origin- Primary [facility] Diagnosis Onset Date Resolution Status Breast cancer acute Breast cancer, left acute Encounter for insertion of venous access port acute [facility] Work Phone: Evaluation note* Diagnosis Malignant neoplasm of upper-outer quadrant of left breast in female, estrogen receptor positive (HCC)- Primary HER2-positive carcinoma of left breast (HCC) [facility] Diagnosis HER2-positive carcinoma of left breast (HCC)- Primary Functional diarrhea [facility] Diagnosis HER2-positive carcinoma of left breast (HCC)- Primary Malignant neoplasm of upper-outer quadrant of left breast in female, estrogen receptor positive (HCC) [facility] Diagnosis Anal fissure- Primary Invasive ductal carcinoma of breast, left (HCC) [facility] Diagnosis Malignant neoplasm of overlapping sites of left breast in female, estrogen receptor positive (HCC) Invasive ductal carcinoma of breast, left (HCC) [facility] Diagnosis HER2-positive carcinoma of left breast (HCC)- Primary Malignant neoplasm of upper-outer quadrant of left breast in female, estrogen receptor positive (HCC) Invasive ductal carcinoma of breast, left (HCC) [facility] Diagnosis Malignant neoplasm of upper-outer quadrant of left breast in female, estrogen receptor positive (HCC)- Primary HER2-positive carcinoma of left breast (HCC) Invasive ductal carcinoma of breast, left (HCC) [facility] Diagnosis Malignant neoplasm of upper-outer quadrant of left breast in female, estrogen receptor positive (HCC)- Primary Invasive ductal carcinoma of breast, left (HCC) [facility] Diagnosis Malignant neoplasm of upper-outer quadrant of left breast in female, estrogen receptor positive (HCC)- Primary HER2-positive carcinoma of left breast (HCC) Invasive ductal carcinoma of breast, left (HCC) [facility] Diagnosis HER2-positive carcinoma of left breast (HCC)- Primary Malignant neoplasm of upper-outer quadrant of left breast in female, estrogen receptor positive (HCC) Invasive ductal carcinoma of breast, left (HCC) [facility] Diagnosis Malignant neoplasm of upper-outer quadrant of left breast in female, estrogen receptor positive (HCC)- Primary Invasive ductal carcinoma of breast, left (HCC) [facility] Diagnosis Anal fissure- Primary Invasive ductal carcinoma of breast, left (HCC) [facility] Diagnosis Pre-operative examination- Primary Preoperative examination, unspecified HER2-positive carcinoma of left breast (HCC) Crohn's disease with complication, unspecified gastrointestinal tract location (HCC) 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 Thrombocytopenia (HCC) Thrombocytopenia, unspecified Anal fissure Invasive ductal carcinoma of breast, left (HCC) [facility] Diagnosis Malignant neoplasm of upper-outer quadrant of left breast in female, estrogen receptor positive (HCC)- Primary Invasive ductal carcinoma of breast, left (HCC) [facility] Diagnosis Malignant neoplasm of upper-outer quadrant of left breast in female, estrogen receptor positive (HCC)- Primary HER2-positive carcinoma of left breast (HCC) Invasive ductal carcinoma of breast, left (HCC) [facility] Diagnosis Malignant neoplasm of upper-outer quadrant of left breast in female, estrogen receptor positive (HCC)- Primary HER2-positive carcinoma of left breast (HCC) Invasive ductal carcinoma of breast, left (HCC) [facility] Malignant neoplasm of upper-outer quadrant of left breast in female, estrogen receptor positive (HCC)- Primary Invasive ductal carcinoma of breast, left (HCC) [facility] Diagnosis Malignant neoplasm of upper-outer quadrant of left breast in female, estrogen receptor positive (HCC)- Primary [facility] Diagnosis Onset Date Resolution Status Encounter for routine gynecological examination noneactive [facility] Work Phone: Evaluation note* Diagnosis Malignant neoplasm of upper-outer quadrant of left breast in female, estrogen receptor positive (HCC)- Primary [facility] Diagnosis At risk for lymphedema- Primary Other specified conditions influencing health status Malignant neoplasm of upper-outer quadrant of left breast in female, estrogen receptor positive (HCC) Breast removal, prophylactic Prophylactic breast removal [facility] Diagnosis Malignant neoplasm of left female breast, unspecified estrogen receptor status, unspecified site of breast (HCC)- Primary [facility] Diagnosis Encounter for education- Primary Counseling NOS [facility]* Diagnosis Post-operative state- Primary Other postprocedural status [facility]* Diagnosis Malignant neoplasm of upper-outer quadrant of left breast in female, estrogen receptor positive (HCC)- Primary [facility] Diagnosis Malignant neoplasm of upper-outer quadrant of left breast in female, estrogen receptor positive (HCC)- Primary [facility] Diagnosis Malignant neoplasm of upper-outer quadrant of left breast in female, estrogen receptor positive (HCC)- Primary [facility] Diagnosis Post-operative state- Primary Other postprocedural status [facility] Diagnosis Malignant neoplasm of upper-outer quadrant of left breast in female, estrogen receptor positive (HCC) [facility] Diagnosis Malignant neoplasm of upper-outer quadrant of left breast in female, estrogen receptor positive (HCC)- Primary HER2-positive carcinoma of left breast (HCC) [facility] Diagnosis 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 chemotherapy- Primary Antineoplastic chemotherapy induced anemia Malignant neoplasm of upper-outer quadrant of left breast in female, estrogen receptor positive (HCC) [facility] Diagnosis Acute pain of left shoulder- Primary Malignant neoplasm of left female breast, unspecified estrogen receptor status, unspecified site of breast (HCC) [facility] Diagnosis Malignant neoplasm of upper-outer quadrant of left breast in female, estrogen receptor positive (HCC)- Primary [facility] Diagnosis Malignant neoplasm of upper-outer quadrant of left breast in female, estrogen receptor positive (HCC)- Primary HER2-positive carcinoma of left breast (HCC) [facility] Diagnosis Malignant neoplasm of upper-outer quadrant of left breast in female, estrogen receptor positive (HCC)- Primary HER2-positive carcinoma of left breast (HCC) [facility] Diagnosis Post-operative state- Primary Other postprocedural status 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, estrogen receptor positive (HCC) Malignant neoplasm of left female breast, unspecified estrogen receptor status, unspecified site of breast (HCC) Invasive ductal carcinoma of breast, left (HCC) History of breast cancer Personal history of malignant neoplasm of breast [facility] Diagnosis Acute pain of left shoulder- Primary [facility] Diagnosis Malignant neoplasm of upper-outer quadrant of left breast in female, estrogen receptor positive (HCC)- Primary [facility] Diagnosis Sore throat- Primary Acute pharyngitis Suspected COVID-19 virus infection [facility] Diagnosis Malignant neoplasm of upper-outer quadrant of left breast in female, estrogen receptor positive (HCC)- Primary HER2-positive carcinoma of left breast (HCC) [facility] Diagnosis Malignant neoplasm of upper-outer quadrant of left breast in female, 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) [facility] Diagnosis HER2-positive carcinoma of left breast (HCC)- Primary Malignant neoplasm of upper-outer quadrant of left breast in female, estrogen receptor positive (HCC) [facility] Diagnosis 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, estrogen receptor positive (HCC) [facility] Diagnosis HER2-positive carcinoma of left breast (HCC)- Primary Malignant neoplasm of upper-outer quadrant of left breast in female, estrogen receptor positive (HCC) Encounter for education Counseling NOS 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 [facility] Diagnosis 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, 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 [facility] Diagnosis Malignant neoplasm of upper-outer quadrant of left breast in female, estrogen receptor positive (HCC)- 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 [facility] Diagnosis Malignant neoplasm of upper-outer quadrant of left breast in female, estrogen receptor positive (HCC)- Primary 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 HER[facility]-positive carcinoma of left breast (HCC)- Primary Malignant neoplasm of upper-outer quadrant of left breast in female, 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 [facility] Diagnosis Malignant neoplasm of upper-outer quadrant of left breast in female, estrogen receptor positive (HCC)- Primary [facility] Diagnosis 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, 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 [facility] Diagnosis HER2-positive carcinoma of left breast (HCC)- Primary Malignant neoplasm of upper-outer quadrant of left breast in female, estrogen receptor positive (HCC) [facility] Diagnosis H/O breast reconstruction- Primary Breast replaced by other means 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, estrogen receptor positive (HCC) Malignant neoplasm of left female breast, unspecified estrogen receptor status, unspecified site of breast (HCC) Invasive ductal carcinoma of breast, left (HCC) History of breast cancer Personal history of malignant neoplasm of breast [facility] Diagnosis 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, 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 [facility] Diagnosis HER2-positive carcinoma of left breast (HCC)- Primary Malignant neoplasm of upper-outer quadrant of left breast in female, estrogen receptor positive (HCC) [facility] Diagnosis Malignant neoplasm of upper-outer quadrant of left breast in female, estrogen receptor positive (HCC)- Primary [facility]* Diagnosis Procreative management- Primary Unspecified procreative management [facility]* Diagnosis Malignant neoplasm of upper-outer quadrant of left breast in female, estrogen receptor positive (HCC)- Primary HER2-positive carcinoma of left breast (HCC) [facility] Diagnosis Malignant neoplasm of upper-outer quadrant of left breast in female, estrogen receptor positive (HCC)- 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 [facility]* Diagnosis HER2-positive carcinoma of left breast (HCC)- Primary Malignant neoplasm of upper-outer quadrant of left breast in female, estrogen receptor positive (HCC) [facility] Diagnosis 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, 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 [facility] Diagnosis Malignant neoplasm of upper-outer quadrant of left breast in female, estrogen receptor positive (HCC)- Primary [facility]* Diagnosis HER2-positive carcinoma of left breast (HCC)- Primary Malignant neoplasm of upper-outer quadrant of left breast in female, estrogen receptor positive (HCC) [facility] Diagnosis 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, 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 [facility] Diagnosis Malignant neoplasm of upper-outer quadrant of left breast in female, estrogen receptor positive (HCC)- Primary HER2-positive carcinoma of left breast (HCC) [facility] Diagnosis Procreative management- Primary Unspecified procreative management [facility]* Diagnosis Female infertility- Primary Female infertility of unspecified origin [facility] Diagnosis Malignant neoplasm of upper-outer quadrant of left breast in female, estrogen receptor positive (HCC)- 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 [facility]* Diagnosis Malignant neoplasm of upper-outer quadrant of left breast in female, estrogen receptor positive (HCC)- Primary Chemotherapy-induced neutropenia (HCC) Drug induced neutropenia Thrombocytopenia (HCC) Thrombocytopenia, unspecified [facility] Diagnosis Female infertility- Primary Female infertility of unspecified origin Procreative management Unspecified procreative management [facility] Diagnosis Procreative management- Primary Unspecified procreative management [facility]* Diagnosis Thrombocytopenia (HCC)- Primary Thrombocytopenia, unspecified 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, estrogen receptor positive (HCC) [facility]* Diagnosis Malignant neoplasm of upper-outer quadrant of left breast in female, estrogen receptor positive (HCC)- 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 [facility]* Diagnosis Malignant neoplasm of upper-outer quadrant of left breast in female, estrogen receptor positive (HCC)- Primary HER2-positive carcinoma of left breast (HCC) Thrombocytopenia (HCC) Thrombocytopenia, unspecified 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 [facility] Diagnosis Female infertility- Primary Female infertility of unspecified origin Procreative management Unspecified procreative management [facility]* Diagnosis HER2-positive carcinoma of left breast (HCC)- Primary Malignant neoplasm of upper-outer quadrant of left breast in female, estrogen receptor positive (HCC) [facility] Diagnosis 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, 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 [facility]* Diagnosis Malignant neoplasm of upper-outer quadrant of left breast in female, estrogen receptor positive (HCC)- Primary HER2-positive carcinoma of left breast (HCC) Elevated serum alkaline phosphatase level Other nonspecific abnormal serum enzyme levels [facility]* Diagnosis Malignant neoplasm of upper-outer quadrant of left breast in female, estrogen receptor positive (HCC)- Primary [facility]* Diagnosis HER2-positive carcinoma of left breast (HCC)- Primary Malignant neoplasm of upper-outer quadrant of left breast in female, estrogen receptor positive (HCC) Elevated serum alkaline phosphatase level Other nonspecific abnormal serum enzyme levels [facility] Diagnosis HER2-positive carcinoma of left breast (HCC)- Primary Malignant neoplasm of upper-outer quadrant of left breast in female, 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 Iron 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 dietary iron intake Iron malabsorption Other specified intestinal malabsorption [facility] Diagnosis Female infertility- Primary Female infertility of unspecified origin Procreative management Unspecified procreative management [facility]* Diagnosis Malignant neoplasm of upper-outer quadrant of left breast in female, estrogen receptor positive (HCC)- 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 [facility]* Diagnosis Malignant neoplasm of upper-outer quadrant of left breast in female, estrogen receptor positive (HCC)- Primary Iron 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 dietary iron intake Iron malabsorption Other specified intestinal malabsorption [facility]* Diagnosis Iron 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 dietary iron intake- Primary Iron malabsorption Other specified intestinal malabsorption [facility]* Diagnosis Iron 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 dietary iron intake- Primary Iron malabsorption Other specified intestinal malabsorption [facility]* Diagnosis Malignant neoplasm of upper-outer quadrant of left breast in female, estrogen receptor positive (HCC)- Primary HER2-positive carcinoma of left breast (HCC) Thrombocytopenia (HCC) Thrombocytopenia, unspecified Iron 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 dietary iron intake Crohn's disease of both small and large intestine without complication (HCC) Regional 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 [facility]* Diagnosis Malignant neoplasm of upper-outer quadrant of left breast in female, 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 [facility]* Diagnosis Malignant neoplasm of upper-outer quadrant of left breast in female, estrogen receptor positive (HCC)- Primary [facility]* Diagnosis Malignant neoplasm of upper-outer quadrant of left breast in female, estrogen receptor positive (HCC)- Primary [facility]* Diagnosis Malignant neoplasm of upper-outer quadrant of left breast in female, estrogen receptor positive (HCC)- Primary HER2-positive carcinoma of left breast (HCC) Crohn's disease with complication, unspecified gastrointestinal tract location (HCC) Thrombocytopenia (HCC) Thrombocytopenia, unspecified Elevated alkaline phosphatase level Other nonspecific abnormal serum enzyme levels [facility]* Diagnosis Malignant neoplasm of upper-outer quadrant of left breast in female, 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 [facility] Diagnosis Malignant neoplasm of upper-outer quadrant of left breast in female, estrogen receptor positive (HCC)- 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 Thrombocytopenia (HCC) Thrombocytopenia, unspecified Elevated alkaline phosphatase level Other nonspecific abnormal serum enzyme levels [facility]* Diagnosis Procreative management- Primary Unspecified procreative management [facility] Diagnosis Procreative management- Primary Unspecified procreative management [facility]* Diagnosis Procreative management- Primary Unspecified procreative management [facility]* Diagnosis 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, estrogen receptor positive (HCC) [facility]* Diagnosis Malignant neoplasm of upper-outer quadrant of left breast in female, estrogen receptor positive (HCC) Elevated alkaline phosphatase level Other nonspecific abnormal serum enzyme levels [facility]* Diagnosis Elevated serum alkaline phosphatase level Other nonspecific abnormal serum enzyme levels [facility]* Diagnosis Malignant neoplasm of upper-outer quadrant of left breast in female, 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) Crohn's disease with complication, unspecified gastrointestinal tract location (HCC) Thrombocytopenia (HCC) Thrombocytopenia, unspecified Elevated alkaline phosphatase level Other nonspecific abnormal serum enzyme levels [facility]* Diagnosis Procreative management- Primary Unspecified procreative management documented in this encounter [facility] note* Diagnosis Procreative management- Primary Unspecified procreative management documented in this encounter [facility] note* Diagnosis Malignant neoplasm of upper-outer quadrant of left breast in female, estrogen receptor positive (HCC)- Primary documented in this encounter [facility] note* Diagnosis Crohn's disease of both small and large intestine without complication (CMS/HCC)- Primary Elevated alkaline phosphatase level documented in this encounter [facility] Work Phone: Evaluation note* Diagnosis Malignant neoplasm of upper-outer quadrant of left breast in female, estrogen receptor positive (HCC) (HCC)- Primary documented in this encounter [facility] note* Diagnosis Onset Date Resolution Status Encounter for adjustment and management of vascular access device [facility] Work Phone: Evaluation note* Diagnosis 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, estrogen receptor positive (HCC) documented in this encounter [facility] note* Diagnosis Malignant neoplasm of upper-outer quadrant of left breast in female, estrogen receptor positive (HCC)- Primary [facility]* Diagnosis URI, acute- Primary Acute upper respiratory infections of unspecified site documented in this encounter [facility] note* Diagnosis Malignant neoplasm of upper-outer quadrant of left breast in female, estrogen receptor positive (HCC)- Primary [facility]* Diagnosis Malignant neoplasm of upper-outer quadrant of left breast in female, estrogen receptor positive (HCC)- Primary HER2-positive carcinoma of left breast (HCC) [facility]* Diagnosis Malignant neoplasm of upper-outer quadrant of left breast in female, estrogen receptor positive (HCC)- Primary [facility]* Diagnosis Crohn's disease of both small and large intestine without complication (Multi)- Primary Elevated alkaline phosphatase level Pharyngitis due to infectious mononucleosis documented in this encounter [facility] Work Phone: Evaluation note* Diagnosis Malignant neoplasm of upper-outer quadrant of left breast in female, estrogen receptor positive (HCC)- Primary documented in this encounter [facility] note* Diagnosis History of breast cancer- Primary Personal history of malignant neoplasm of breast [facility]* Diagnosis Malignant neoplasm of upper-outer quadrant of left breast in female, estrogen receptor positive (HCC)- Primary [facility]* Diagnosis Encounter for gynecological examination (general) (routine) without abnormal findings- Primary Screening for cervical cancer Screening for malignant neoplasm of the cervix Encounter for screening for human papillomavirus (HPV) Special screening examination for human papillomavirus (HPV) History of breast cancer Personal history of malignant neoplasm of breast Pre-conception counseling Other procreative management counseling and advice Other specified dyspareunia Female infertility Female infertility of unspecified origin [facility]* Diagnosis Malignant neoplasm of upper-outer quadrant of left breast in female, estrogen receptor positive (HCC)- Primary [facility]* Diagnosis Malignant neoplasm of upper-outer quadrant of left breast in female, estrogen receptor positive (HCC)- Primary HER2-positive carcinoma of left breast (HCC) [facility]* Diagnosis Malignant neoplasm of upper-outer quadrant of left breast in female, estrogen receptor positive (HCC)- Primary [facility]* Diagnosis Malignant neoplasm of upper-outer quadrant of left breast in female, estrogen receptor positive (HCC)- Primary documented in this encounter [facility] note* Diagnosis Pre-operative examination- Primary Preoperative examination, unspecified HER2-positive carcinoma of left breast (HCC) Crohn's disease with complication, unspecified gastrointestinal tract location (HCC) 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 Thrombocytopenia (HCC) Thrombocytopenia, unspecified Anal fissure Malignant neoplasm of upper-outer quadrant of left breast in female, estrogen receptor positive (HCC)- Primary documented in this encounter [facility] note* Diagnosis Pre-operative examination- Primary Preoperative examination, unspecified HER2-positive carcinoma of left breast (HCC) Crohn's disease with complication, unspecified gastrointestinal tract location (HCC) 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 Thrombocytopenia (HCC) Thrombocytopenia, unspecified Anal fissure Malignant neoplasm of upper-outer quadrant of left breast in female, estrogen receptor positive (HCC)- Primary documented in this encounter [facility] note* Diagnosis Pre-operative examination- Primary Preoperative examination, unspecified HER2-positive carcinoma of left breast (HCC) Crohn's disease with complication, unspecified gastrointestinal tract location (HCC) 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 Thrombocytopenia (HCC) Thrombocytopenia, unspecified Anal fissure Invasive ductal carcinoma of breast, left (HCC) documented in this encounter [facility] note* Diagnosis Malignant neoplasm of overlapping sites of left breast in female, estrogen receptor positive (HCC) Pre-operative examination- Primary Preoperative examination, unspecified HER2-positive carcinoma of left breast (HCC) Crohn's disease with complication, unspecified gastrointestinal tract location (HCC) 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 Thrombocytopenia (HCC) Thrombocytopenia, unspecified Anal fissure documented in this encounter [facility] note* Diagnosis Pre-operative examination- Primary Preoperative examination, unspecified HER2-positive carcinoma of left breast (HCC) Crohn's disease with complication, unspecified gastrointestinal tract location (HCC) 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 Thrombocytopenia (HCC) Thrombocytopenia, unspecified Anal fissure Malignant neoplasm of upper-outer quadrant of left breast in female, estrogen receptor positive (HCC)- Primary documented in this encounter [facility] note* Diagnosis Pre-operative examination- Primary Preoperative examination, unspecified HER2-positive carcinoma of left breast (HCC) Crohn's disease with complication, unspecified gastrointestinal tract location (HCC) 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 Thrombocytopenia (HCC) Thrombocytopenia, unspecified Anal fissure Sore throat- Primary Acute pharyngitis Rhinosinusitis Unspecified sinusitis (chronic) documented in this encounter [facility]* Diagnosis Pre-operative examination- Primary Preoperative examination, unspecified HER2-positive carcinoma of left breast (HCC) Crohn's disease with complication, unspecified gastrointestinal tract location (HCC) 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 Thrombocytopenia (HCC) Thrombocytopenia, unspecified Anal fissure 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, estrogen receptor positive (HCC) documented in this encounter [facility] note* Diagnosis Pre-operative examination- Primary Preoperative examination, unspecified HER2-positive carcinoma of left breast (HCC) Crohn's disease with complication, unspecified gastrointestinal tract location (HCC) 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 Thrombocytopenia (HCC) Thrombocytopenia, unspecified Anal fissure Malignant neoplasm of upper-outer quadrant of left breast in female, estrogen receptor positive (HCC)- Primary documented in this encounter [facility] note* Diagnosis Crohn's disease of both small and large intestine without complication (Multi) documented in this encounter [facility] Work Phone: Evaluation note* Diagnosis Pre-operative examination- Primary Preoperative examination, unspecified HER2-positive carcinoma of left breast (HCC) Crohn's disease with complication, unspecified gastrointestinal tract location (HCC) 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 Thrombocytopenia (HCC) Thrombocytopenia, unspecified Anal fissure Malignant neoplasm of upper-outer quadrant of left breast in female, estrogen receptor positive (HCC)- Primary Thrombocytopenia (HCC) Thrombocytopenia, unspecified Elevated alkaline phosphatase level Other nonspecific abnormal serum enzyme levels documented in this encounter [facility] note* Diagnosis Pre-operative examination- Primary Preoperative examination, unspecified HER2-positive carcinoma of left breast (HCC) Crohn's disease with complication, unspecified gastrointestinal tract location (HCC) 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 Thrombocytopenia (HCC) Thrombocytopenia, unspecified Anal fissure HER2-positive carcinoma of left breast (HCC)- Primary documented in this encounter [facility] note* Diagnosis Pre-operative examination- Primary Preoperative examination, unspecified HER2-positive carcinoma of left breast (HCC) Crohn's disease with complication, unspecified gastrointestinal tract location (HCC) 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 Thrombocytopenia (HCC) Thrombocytopenia, unspecified Anal fissure HER2-positive carcinoma of left breast (HCC) [facility] Diagnosis Pre-operative examination- Primary Preoperative examination, unspecified HER2-positive carcinoma of left breast (HCC) Crohn's disease with complication, unspecified gastrointestinal tract location (HCC) 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 Thrombocytopenia (HCC) Thrombocytopenia, unspecified Anal fissure HX: breast cancer- Primary Personal history of malignant neoplasm of breast S/P breast reconstruction Breast replaced by other means Keloid scar [facility] Diagnosis Pre-operative examination- Primary Preoperative examination, unspecified HER2-positive carcinoma of left breast (HCC) Crohn's disease with complication, unspecified gastrointestinal tract location (HCC) 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 Thrombocytopenia (HCC) Thrombocytopenia, unspecified Anal fissure History of breast cancer- Primary Personal history of malignant neoplasm of breast Breast cancer screening, high risk patient Screening mammogram for high-risk patient [facility] Diagnosis Pre-operative examination- Primary Preoperative examination, unspecified HER2-positive carcinoma of left breast (HCC) Crohn's disease with complication, unspecified gastrointestinal tract location (HCC) 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 Thrombocytopenia (HCC) Thrombocytopenia, unspecified Anal fissure Female infertility- Primary Female infertility of unspecified origin documented [facility] this [facility] Diagnosis Pre-operative examination- Primary Preoperative examination, unspecified HER2-positive carcinoma of left breast (HCC) Crohn's disease with complication, unspecified gastrointestinal tract location (HCC) 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 Thrombocytopenia Thrombocytopenia, unspecified Anal fissure Malignant neoplasm of upper-outer quadrant of left breast in female, estrogen receptor positive (HCC)- Primary Thrombocytopenia Thrombocytopenia, unspecified Elevated alkaline phosphatase level Other nonspecific abnormal serum enzyme levels Splenomegaly documented [facility] this [facility]* Diagnosis Pre-operative examination- Primary Preoperative examination, unspecified HER2-positive carcinoma of left breast (HCC) Crohn's disease with complication, unspecified gastrointestinal tract location (HCC) 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 Thrombocytopenia Thrombocytopenia, unspecified Anal fissure Immunity to varicella determined by serologic test- Primary Immunity to rubella determined by serologic test Encounter for fertility testing Fertility testing [facility] Diagnosis Pre-operative examination- Primary Preoperative examination, unspecified HER2-positive carcinoma of left breast (HCC) Crohn's disease with complication, unspecified gastrointestinal tract location (HCC) 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 Thrombocytopenia Thrombocytopenia, unspecified Anal fissure Encounter for gynecological examination (general) (routine) without abnormal findings- Primary Screening for cervical cancer Screening for malignant neoplasm of the cervix Screening for HPV (human papillomavirus) Special screening examination for human papillomavirus (HPV) History of breast cancer Personal history of malignant neoplasm of breast documented [facility] this [facility]* Diagnosis Pre-operative examination- Primary Preoperative examination, unspecified HER2-positive carcinoma of left breast (HCC) Crohn's disease with complication, unspecified gastrointestinal tract location (HCC) 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 Thrombocytopenia Thrombocytopenia, unspecified Anal fissure Encounter for fertility testing- Primary Fertility testing Pre-procedural laboratory examination documented [facility] this encounter [facility]* Diagnosis Pre-operative examination- Primary Preoperative examination, unspecified HER2-positive carcinoma of left breast (HCC) Crohn's disease with complication, unspecified gastrointestinal tract location (HCC) 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 Thrombocytopenia Thrombocytopenia, unspecified Anal fissure Fertility testing- Primary documented in this [facility]* Diagnosis Pre-operative examination- Primary Preoperative examination, unspecified HER2-positive carcinoma of left breast (HCC) Crohn's disease with complication, unspecified gastrointestinal tract location (HCC) 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 Diagnosed in 2013. Hospitalized at that time with small bowel obstruction found to have terminal ileitis, follow-up colonoscopy showed ulcerations and nodularity throughout the distal ileum biopsies showed acute inflammatory change without granulomas. She was placed on budesonideand improved. She was recommended go on Humira which she declined. Patient relocated to the [facility] where her is been serving in the [place] has been treated there for the last 4 years. Patient is currently taking budesonide intermittently. Currently on budesonide and in the next week. Yaritza valenzuela states her disease is well controlled although she has noticed that certain foods especially high residue foods make her worse. She has predictable pain in her right lower quadrant but is having no active diarrhea at this time. Most recent labs done in December of this year showed hemoglobin 11.5 with normal albumin and normal liver enzymes. She had a hepatitis B surface antibody surface antigen both which were negative and nonreactive and hepatitis B core antibody which was negative. HIV was negative sed rate at that time was 8 and CRP was 2 all the wrists fecal calprotectin was elevated 4 and 16. QuantiFERON gold was negative and a C. difficile was not performed as she was having solid stool. * Patient has biopsy-proven Crohn's disease which is controlled but not well managed with oral budesonide. Patient is contemplating but has active symptoms. Was advised to not become until disease is better managed. She has been Kochan and dressed about biologic therapy but is decli amparo because of fear of immune suppression. * Had a long conversation with both she and her who was in attendance and informed them that if her disease is not well managed her immune system is actually not as adequate as it could be. We discussed options including Humira other TNF inhibitors directed TNF antibodies as well as interleukin-12 22 inhibitors. * Long-term risk of immune suppression including induction of lymphoma was discussed with patient as well as risk for infection. Patient is not at a point where she wishes to begin any new therapy wishes to wean off budesonide and see how symptoms go. I have arranged for her to have Crohn's prognostic labs as well as vitamin D, vitamin B12 and ferritin levels as well as repeating her sed rate and C-reactive protein. She will follow-up by telephone. I advised her that if I were her I would consider Stelara as there is less shot burden and appears to have a lesser risk of induction of lymphoma Surekha. [facility] Work Phone: [facility]: Instructions* Name Dates Details How to access health [employer] D2S online Indication:Nonsmoker Start:23-Dec-2018 Instruction Type:Patient Education How to access health informa tion online - Detail Indication:Nonsmoker Start:23-Dec-2018 Instruction Type:Patient Education Patient Instructions Indication:Rash Start:23-Dec-2018 Instruction Type:Provider Instructions for Treatment Patient Instructions Indication:Abdominal bloating Start:02-Jan-2014 Instruction Type:Provider Instructions for Treatment Patient Instructions Indication:Pyelocystitis Start:03-Oct-2013 Instruction Type:Provider Instructions for Treatment Patient Instructions Indication:Hypoglycemia Start:07-Aug-2012 Instruction Type:Provider Instructions for Treatment Patient Instructions Indication:Weight Loss Start:18-Jul-2012 Instruction Type:Provider Instructions for Treatment [facility] Work Phone: instructions* Name Dates Details How to access health informa tion online Indication:Nonsmoker Start:23-Dec-2018 Instruction Type:Patient Education How to access health informa tion online - Detail Indication:Nonsmoker Start:23-Dec-2018 Instruction Type:Patient Education Patient Instructions Indication:Rash Start:23-Dec-2018 Instruction Type:Provider Instructions for Treatment Patient Instructions Indication:Abdominal bloating Start:02-Jan-2014 Instruction Type:Provider Instructions for Treatment Patient Instructions Indication:Pyelocystitis Start:03-Oct-2013 Instruction Type:Provider Instructions for Treatment Patient Instructions Indication:Hypoglycemia Start:07-Aug-2012 Instruction Type:Provider Instructions for Treatment Patient Instructions Indication:Weight Loss Start:18-Jul-2012 Instruction Type:Provider Instructions for Treatment [facility] Work Phone: instructions* Name Dates Details How to access health informa tion online Indication:Nonsmoker Start:23-Dec-2018 Instruction Type:Patient Education How to access health informa tion online - Detail Indication:Nonsmoker Start:23-Dec-2018 Instruction Type:Patient Education Patient Instructions Indication:Rash Start:23-Dec-2018 Instruction Type:Provider Instructions for Treatment Patient Instructions Indication:Abdominal bloating Start:02-Jan-2014 Instruction Type:Provider Instructions for Treatment Patient Instructions Indication:Pyelocystitis Start:03-Oct-2013 Instruction Type:Provider Instructions for Treatment Patient Instructions Indication:Hypoglycemia Start:07-Aug-2012 Instruction Type:Provider Instructions for Treatment Patient Instructions Indication:Weight Loss Start:18-Jul-2012 Instruction Type:Provider Instructions for Treatment [facility] Work Phone: Instructions* Name Dates Details How to access [employer] Indication:Nonsmoker Start:23-Dec-2018 Instruction Type:Patient Education How to access health [employer] D2S online - Detail Indication:Nonsmoker Start:23-Dec-2018 Instruction Type:Patient Education Patient Instructions Indication:Rash Start:23-Dec-2018 Instruction Type:Provider Instructions for Treatment Patient Instructions Indication:Abdominal bloating Start:02-Jan-2014 Instruction Type:Provider Instructions for Treatment Patient Instructions Indication:Pyelocystitis Start:03-Oct-2013 Instruction Type:Provider Instructions for Treatment Patient Instructions Indication:Hypoglycemia Start:07-Aug-2012 Instruction Type:Provider Instructions for Treatment Patient Instructions Indication:Weight Loss Start:18-Jul-2012 Instruction Type:Provider Instructions for Treatment [facility] Work Phone: reason for referral (narrative)* Outpatient Procedure (Routine) - Authorized Specialty Diagnoses / Procedures Referred By Contac t Referred [facility] Diagnoses Malignant neoplasm of upper-outer quadrant of left breast in female, estrogen receptor positive (HCC) Procedures ECHO ECHO TTHRC R-T 2D W/WOM-MODE COMPL SPEC&COLR D Chantal Ayers DO [address] [place] [address] [facility] [place] [address] Referral ID Status Reason Start Date Expiration Date Visits Requested Visits Authorized [id number] Authorized Auto-Generat ed Referral 10/19/2021 10/19/2022 1 1 [facility] for referral (narrative)* Diagnostic Procedure Only (Routine) - Pending Review Specialty Diagnoses / Procedures Referred By Contac t Referred To Contact [facility] Diagnoses Malignant neoplasm of left female breast, unspecified estrogen receptor status, unspecified site of breast (HCC) Procedures US BREAST LTD LT US BREAST UNI [place] [address] [place] [address] [facility] [address] [place] [address] Referral ID Status Reason Start Date Expiration Date Visits Requested Visits Authorized [id number] Pending Review Auto-Generat ed Referral 10/20/2021 11/19/2022 1 1 * Diagnostic Procedure Only (Routine) - Pending Review Specialty Diagnoses / Procedures Referred By Contac t Referred To Contact [facility] Diagnoses Malignant neoplasm of left female breast, unspecified estrogen receptor status, unspecified site of breast (HCC) Procedures JOSE A DIAGNOSTIC LT DIAGNOSTIC MAMMOGRAPHY COMPUTER-[place] [address] [place] [address] [facility] [address] [place] [address] Referral ID Status Reason Start Date Expiration Date Visits Requested Visits Authorized [id number] Pending Review Auto-Generat ed Referral 10/20/2021 11/19/2022 1 1 [facility] for referral (narrative)* Diagnostic Procedure Only (Routine) - Closed Specialty Diagnoses / Procedures Referred By Stacy t Referred To Contact [facility] Diagnoses Malignant neoplasm of left female breast, unspecified estrogen receptor status, unspecified site of breast (HCC) Procedures US BREAST LTD LT US BREAST UNI REAL [place] [address] [place] [address] [facility] [address] [place] [address] Referral ID Status Reason Start Date Expiration Date V isits Requested Visits Authorized [id number] Closed Auto-Generate d Referral 10/20/2021 11/19/2022 1 1 [facility] for referral (narrative)* Diagnostic Procedure Only (Routine) - Closed Specialty Diagnoses / Procedures Referred By Contac t Referred To Contact [facility] Diagnoses Breast disorder Procedures US BIOPSY BREAST LT BX BREAST W/DEVICE 1ST LESION ULTRASOUND Jasmyn Dominique MD [address] [place] [address] [facility] [address] [place] [address] Referral ID Status Reason Start Date Expiration Date V isits Requested Visits Authorized [id number] Closed Auto-Generate d Referral 10/25/2021 11/24/2022 1 1 [facility] for referral (narrative)* Diagnostic Procedure Only (Routine) - Pending Review Specialty Diagnoses / Procedures Referred By Stacy t Referred To Contact [facility] Diagnoses Encounter for fertility preservation procedure Procedures FOLLICULAR US WHI US PELVIC NONOBSTETRIC IMAGE DCMTN LIMITED/F/U Jam Foley MD [address] [place] [address] [facility] [address] [place] [id number] Referral ID Status Reason Start Date Expiration Date Visits Requested Visits Authorized [id number] Pending Review Auto-Generat ed Referral 10/31/2021 10/31/2022 5 5 [facility] for referral (narrative)* Outpatient Procedure (Routine) - Closed Specialty Diagnoses / Procedures Referred By Contac t Referred To Contact [facility] Diagnoses Pre-operative examination Procedures ECG COMPLETE ECG ROUTINE ECG W/LEAST 12 LDS W/I&R Sabina Cedeno, STEAM SHOVELMAN.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 [address] [place] [address] [address] Referral ID Status Reason Start Date Expiration Date V isits Requested Visits Authorized [id number] Closed Auto-Generate d Referral 03/24/2022 03/24/2023 1 1 [facility] for referral (narrative)* Outpatient Procedure (Urgent) - Pending Review Specialty Diagnoses / Procedures Referred By Contac t Referred To Contact [facility] Diagnoses Malignant neoplasm of upper-outer quadrant of left breast in female, 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) Procedures ECHO ECHO TTHRC R-T 2D W/WOM-MODE COMPL SPEC&COLR D Chantal Ayers DO [address] [place] [address] [facility] [address] [place] [address] Referral ID Status Reason Start Date Expiration Date Visits Requested Visits Authorized [id number] Pending Review Auto-Genera milagros Referral Patient Cleared - Admin/Chair man/Directo r advise to proceed 03/29/2022 03/29/2023 1 1 T [facility] for referral (narrative)* Diagnostic Procedure Only (Routine) - Pending Review Specialty Diagnoses / Procedures [facility] To [facility] Diagnoses Malignant neoplasm of upper-outer quadrant of left breast in female, estrogen receptor positive (HCC) Procedures JOSE A SURGICAL BREAST SPECIMEN LT RADIOLOGICAL EXAMINATION SURGICAL SPECIMEN Amber Miles PA-C [address] [place] [address] [facility] [address] [place] [address] Referral ID Status Reason Start Date Expiration Date Visits Requested Visits Authorized [id number] Pending Review Auto-Generat ed Referral 2 05/17/2023 1 1 [facility] for referral (narrative)* Outpatient Procedure (Routine) - Authorized Specialty Diagnoses / Procedures Referred By Contac t Referred To Contact [facility] Diagnoses 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, estrogen receptor positive (HCC) Procedures ECHO ECHO TTHRC R-T 2D W/WOM-MODE COMPL SPEC&COLR D Lance Clement MD [address] [place] [address] [facility] [place] [facility] [place] [address] [place] [address] Referral ID Status Reason Start Date Expiration Date Visits Requested Visits Authorized [id number] Authorized Auto-Generat ed Referral 07/27/2022 07/06/2023 1 1 [facility] for referral (narrative)* Outpatient Procedure (Routine) - Authorized Specialty Diagnoses / Procedures Referred By Contac t Referred To Contact [facility] Diagnoses Malignant neoplasm of upper-outer quadrant of left breast in female, 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) Procedures ECHO ECHO TTHRC R-T 2D W/WOM-MODE COMPL SPEC&COLR D Chantal Ayers DO [address] [place] [address] [facility] [place] [address] [place] [address] Referral ID Status Reason Start Date Expiration Date Visits Requested Visits Authorized [id number] Authorized Auto-Generat ed Referral 10/09/2022 10/09/2023 1 1 [facility] for referral (narrative)* Outpatient Procedure (Routine) - Authorized Specialty Diagnoses / Procedures Referred By Contac t Referred To Contact [facility] Diagnoses HER2-positive carcinoma of left breast (HCC) Procedures ECHO ECHO TTHRC R-T 2D W/WOM-MODE COMPL SPEC&COLR D Chantal Ayers, DO [address] [facility] [place] [address] [facility] [place] [id number] [place] [address] Referral ID Status Reason Start Date Expiration Date Visits Requested Visits Authorized [id number] Authorized Auto-Generat ed Referral 01/02/2023 01/02/2024 1 1 T [facility] for referral (narrative)* Diagnostic Procedure Only (Routine) - Authorized Specialty Diagnoses / Procedures Referred By Contac t Referred To Contact [facility] Diagnoses Elevated serum alkaline phosphatase level Procedures US ABD RIGHT UPPER QUADRANT US ABDOMINAL REAL TIME W/IMAGE LIMITED Chantal Ayers, DO [address] [place] [address] [facility] Referral ID Status Reason Start Date Expiration Date Visits Requested Visits Authorized [id number] Authorized Auto-Generat ed Referral 01/23/2023 02/22/2024 1 1 [facility] for referral (narrative)* Diagnostic Procedure Only (Routine) - Closed Specialty Diagnoses / Procedures Referred By Contac t Referred To Contact [facility] Diagnoses Malignant neoplasm of upper-outer quadrant of left breast in female, estrogen receptor positive (HCC) Elevated alkaline phosphatase level Procedures NM BONE WHOLE BODY BONE &/JOINT IMAGING WHOLE BODY Chantal Ayers DO [address] [place] [address] [facility] [address] [place] [address] Referral ID Status Reason Start Date Expiration Date V isits Requested Visits Authorized [id number] Closed Auto-Generate d Referral 01/30/2023 02/29/2024 1 1 T [facility] for referral (narrative)* Diagnostic Procedure Only (Routine) - Closed Specialty Diagnoses / Procedures Referred By Contac t Referred To Contact [facility] Diagnoses Elevated serum alkaline phosphatase level Procedures US ABD RIGHT UPPER QUADRANT US ABDOMINAL REAL TIME W/IMAGE LIMITED Chantal Ayers DO [address] [place] [address] [facility] [place] [address] Referral ID Status Reason Start Date Expiration Date V isits Requested Visits Authorized [id number] Closed Auto-Generate d Referral 01/23/2023 02/22/2024 1 1 [facility] for referral (narrative)* Diagnostic Procedure Only (Routine) - Closed Specialty Diagnoses / Procedures Referred By Stacy vernon Referred To Contact [facility] Diagnoses Malignant neoplasm of overlapping sites of left breast in female, estrogen receptor positive (HCC) Procedures US BREAST LTD LT US BREAST UNI REAL [place] [address] [place] [address] [facility] [address] [place] [address] Referral ID Status Reason Start Date Expiration Date V isits Requested Visits Authorized [id number] Closed Auto-Generate d Referral 02/17/2022 03/19/2023 1 1 [facility] for visit Narrative* Diagnostic Procedure Only (Routine) - Closed Specialty Diagnoses / Procedures Referred By Stacy vernon Referred To Contact [facility] Diagnoses Breast cancer (HCC) breast cancer Procedures MRI BREAST WITHOUT&WITH CONTRAST W/CAD BILATERAL MRI [place] [address] [place] [address] Radio [facility] [address] [place] [address] Referral ID Status Reason Start Date Expiration Date Visits Re quested Visits Authorized [id number] Closed 10/18/2021 12/02/2021 1 1 [facility] for visit Narrative* Diagnostic Procedure Only (Routine) - Closed Specialty Diagnoses / Procedures Referred By Stacy vernon Referred To Contact BR IMAGING Diagnoses Malignant neoplasm of left female breast, unspecified estrogen receptor status, unspecified site of breast (HCC) Procedures JOSE A DIAGNOSTIC LT DIAGNOSTIC MAMMOGRAPHY COMPUTER-[place] [address] [place] [address] Br Imaging [address] [place] [address] Referral ID Status Reason Start Date Expiration Date V isits Requested Visits Authorized [id number] Closed Auto-Generate d Referral 10/20/2021 11/19/2022 1 1 [facility] for visit Narrative* Diagnostic Procedure Only (Routine) - Closed Specialty Diagnoses / Procedures [facility] Referred To Contact BR IMAGING Diagnoses Breast disorder Procedures JOSE A STEREO BX BREAST LT BX BREAST W/DEVICE 1ST LESION STEREOTACTIC Jasmyn Dominique MD [address] [place] [address] Br Imaging [address] [place] [address] Referral ID Status Reason Start Date Expiration Date V isits Requested Visits Authorized [id number] Closed Auto-Generate d Referral 10/25/2021 11/24/2022 1 1 [facility] for visit Narrative* Diagnostic Procedure Only (Routine) - Closed Specialty Diagnoses / Procedures [facility] Referred To Contact MOLECULAR & FUNCTIONAL IMAGING Diagnoses Malignant neoplasm of upper-outer quadrant of left breast in female, estrogen receptor positive (HCC) Elevated alkaline phosphatase level Procedures NM BONE WHOLE BODY BONE &/JOINT IMAGING WHOLE BODY Chantal Ayers DO [address] [place] [address] Molecular & Functional Imaging [address] [place] [address] Referral ID Status Reason Start Date Expiration Date V isits Requested Visits Authorized [id number] Closed Auto-Generate d Referral 01/30/2023 02/29/2024 1 1 [facility] for visit Narrative* Diagnostic Procedure Only (Routine) - Closed Specialty Diagnoses / Procedures [facility] Referred To Contact Nuclear Medicine / RADIO NUC MED [facility] STRO Diagnoses Malignant neoplasm of unspecified site of left female breast NUC MED DR ARANDA Procedures INJ RADIOACTIVE TRACER FOR ID OF SENTINEL NODE LYMPH GLAND IMAGING Amber Miles PA-C [address] [place] [address] Radio Nuc Med [facility] [address] [place] [address] Referral ID Status Reason Start Date Expiration Date Visits Re quested Visits Authorized [id number] Closed 07/09/2021 07/08/2022 1 1 [facility] for visit Narrative* MRI/CT (Routine) - Closed Specialty Diagnoses / Procedures Referred By Contac t Referred To Contact MR IMAGING Diagnoses HER2-positive carcinoma of left breast (HCC) Procedures MRI BREAST WO/W IVCON BILATERAL MRI BREAST WITHOUT&WITH CONTRAST W/CAD BILATERAL Kin [place]ie [place]DO [address] [place] [address] Phone: tel: fax: [place] [address] Referral ID Status Reason Start Date Expiration Date V isits Requested Visits Authorized [id number] Closed Auto-Generate d Referral 09/01/2024 10/16/2024 1 1 [facility] for visit Narrative* Auth/Cert (Routine) Specialty Diagnoses / Procedures Referred By Stacy vernon Referred To Contact Diagnoses Crohn's disease of both small and large intestine without complications (Multi) Procedures VA COLONOSCOPY FLX DX W/COLLJ SPEC WHEN PFRMD VA COLONOSCOPY W/BIOPSY SINGLE/MULTIPLE VA COLSC FLX W/REMOVAL LESION BY HOT BX FORCEPS VA COLSC FLX W/RMVL OF TUMOR POLYP LESION SNARE TQ [address] [place] [address] Phone: tel:[phone] fax: Referral ID Status Reason Start Date Expiration Date Visits Re quested Visits Authorized [id number] 1 1 [facility] Work Phone: Summary Purpose Family History No Family History Records FoundUnknown Family Member Name Dates Details Maternal Grandmother Comments:heart Dz, Br [place] Status:Active Paternal Grandfather Comments:DM Status:Active Unknown Family Member Name Dates Details Family history of malignant neoplasm of breast: Maternal Grandmother(V16.3, Z80.3) Status:Active Relationship Condition Age at Onset Recorded Date/T jose roberto grandmother Malignant neoplasm of breast Unknown Relationship Condition Age at Onset Recorded Date/T jose roberto grandmother Malignant neoplasm of breast Unknown Hypertension Unknown Disorder of thyroid Unknown Diabetes mellitus Unknown Unknown Family Member Name Dates Details Maternal Grandmother Comments:heart Dz, Br Ca Status:Active Paternal Grandfather Comments:DM Status:Active Unknown Family Member Name Dates Details Maternal Grandmother Comments:heart Dz, Br Ca Status:Active Paternal Grandfather Comments:DM Status:Active Unknown Family Member Name Dates Details Maternal Grandmother Comments:heart Dz, Br Ca Status:Active Paternal Grandfather Comments:DM Status:Active Unknown Family Member Name Dates Details Maternal Grandmother Comments:heart Dz, Br Ca Status:Active Paternal Grandfather Comments:DM Status:Active Advance Directives No Advanced Directives Records Found Advance Directive Response Recorded Date/ Time Advance Directives No May 17, 2021 5:32pm Living Will No May 17 5:32pm Power of [employer] No May 17, 2021 5:32pm Documents on File Type Date 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 [employer] Advance Directive Response Recorded Date/ Time Advance Directives No May 17, 2021 5:32pm Living Will No October 28, 2021 9:56am Power of [employer] No October 28 9:56am Advance Directive Response Recorded Date/ Time Advance Directives No May 17, 2021 4:32pm Living Will No October 28, 2021 8:56am Power of [employer] No October 28 8:56am Instructions Name Dates Details How to access health informa tion online Indication:Nonsmoker Start:23-Dec-2018 Instruction Type:Patient Education How to access health informa tion online - Detail Indication:Nonsmoker Start:23-Dec-2018 Instruction Type:Patient Education Patient Instructions Indication:Rash Start:23-Dec-2018 Instruction Type:Provider Instructions for Treatment Patient Instructions Indication:Abdominal bloating Start:02-Jan-2014 Instruction Type:Provider Instructions for Treatment Patient Instructions Indication:Pyelocystitis Start:03-Oct-2013 Instruction Type:Provider Instructions for Treatment Patient Instructions Indication:Hypoglycemia Start:07-Aug-2012 Instruction Type:Provider Instructions for Treatment Patient Instructions Indication:Weight Loss Start:18-Jul-2012 Instruction Type:Provider Instructions for Treatment Chief Complaint NPV in office today for Crohns disease, no complaints currently. Has previously seen Dr. Early in [place] and a mari in [place]. Patient's last colonoscopy was on 11/25/2020 Chief Complaint and Reason for Visit Chief Complaint back pain Back pain LEFT BREAST BIRADS [address] EVEYLN BRITT LEFT BREAST MASS Reason for Visit Cervicogenic headach e Segmental and somatic dysfunction of cervical region Segmental and somatic dysfunction of thoracic region Cervicogenic headache Segmental and somatic dysfunction of cervical region Segmental and somatic dysfunction of lumbar region Segmental and somatic dysfunction of thoracic region Left breast mass Chief Complaint LEFT BREAST BIRADS [address] 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 for Visit Encounter for routin e gynecological examination Chief Complaint PORT REMOVAL Crohn's/PANCREAS MRCP Reason for Visit Encounter for adjust ment and management of vascular access device Reason for Referral Specialty Diagnoses / Procedures Referred By Stacy vernon Referred To Contact Lab Diagnoses Malignant neoplasm of left breast in female, estrogen receptor positive, unspecified site of breast Family history of breast cancer Procedures Genetic Sendout: CancerNext Panel with RNA testing and [place] [address] Referral ID Status Reason Start Date Expiration Date V isits Requested Visits Authorized [id number] Open Specialty Services Required 10/18/2021 10/18/2022 1 1 Specialty Diagnoses / Procedures Referred By Stacy vernon Referred To Contact MR IMAGING Diagnoses Invasive ductal carcinoma of breast, female, left (HCC) Procedures MRI BREAST WO/W IVCON BILAT MRI BREAST WITHOUT&WITH CONTRAST W/CAD BILATERAL Amber Miles PA-C [address] [place] [address] Mr Imaging Referral ID Status Reason Start Date Expiration Date Visits Requested Visits Authorized [id number] Additional Clinical Info Needed Auto-Generat ed Referral 10/19/2021 11/18/2022 1 1 Referral ID Status Reason Start Date Expiration Date V isits Requested Visits Authorized [id number] Closed Auto-Generate d Referral 10/18/2021 12/02/2021 1 1 Specialty Diagnoses / Procedures Referred By Stacy vernon Referred To Contact MR IMAGING Diagnoses Breast disorder Procedures MRI CLIP PLACEMENT BREAST LEFT PERQ BREAST LOC DEVICE PLACEMT 1ST LESIO Jasmyn Koenig MD [address] [place] [address] Mr Imaging Referral ID Status Reason Start Date Expiration Date Visits Requested Visits Authorized [id number] Pending Review Auto-Generat ed Referral 10/25/2021 11/24/2022 1 1 Specialty Diagnoses / Procedures Referred By Contac t Referred To Contact BR IMAGING Diagnoses Breast disorder Procedures JOSE A STEREO BX BREAST LT BX BREAST W/DEVICE 1ST LESION STEREOTACTIC GUID Jasmyn Britt MD [address] [place] [address] Br Imaging [address] [place] [address] Referral ID Status Reason Start Date Expiration Date Visits Requested Visits Authorized [id number] Pending Review Auto-Generat ed Referral 10/25/2021 11/24/2022 1 1 Specialty Diagnoses / Procedures Referred By Contac t Referred To Contact BR IMAGING Diagnoses Breast disorder Procedures US BIOPSY BREAST LT BX BREAST W/DEVICE 1ST LESION ULTRASOUND GUID Jasmyn Britt MD [address] [place] [address] Br Imaging [address] [place] [address] Referral ID Status Reason Start Date Expiration Date Visits Requested Visits Authorized [id number] Pending Review Auto-Generat ed Referral 10/25/2021 11/24/2022 1 1 Specialty Diagnoses / Procedures Referred By Contac t Referred To Contact Radiation Oncology Diagnoses Malignant neoplasm of upper-outer quadrant of left breast in female, estrogen receptor positive (HCC) Procedures RAD/ONC CONSULT OFFICE/OUTPATIENT [facility] 60-[place] [address] [place] [address] Referral ID Status Reason Start Date Expiration Date Visits Requested Visits Authorized [id number] Authorized PCP Requested Referral 10/21/2021 10/21/2022 1 1 Specialty Diagnoses / Procedures Referred By Contac t Referred To Contact Diagnoses Malignant neoplasm of upper-outer quadrant of left breast in female, estrogen receptor positive (HCC) Procedures CONSULT TO FERTILITY/CANCER PATIENT OFFICE/OUTPATIENT [facility] 60-[place] [address] [place] [address] Referral ID Status Reason Start Date Expiration Date Visits Requested Visits Authorized [id number] Authorized PCP Requested Referral Auto-Generate d Referral 10/21/2021 10/21/2022 1 1 Referral ID Status Reason Start Date Expiration Date V isits Requested Visits Authorized [id number] Closed Auto-Generate d Referral 10/28/2021 07/08/2022 1 1 Referral ID Status Reason Start Date Expiration Date V isits Requested Visits Authorized [id number] Closed Auto-Generate d Referral 10/25/2021 11/24/2022 1 1 Specialty Diagnoses / Procedures Referred By Stacy vernon Referred To Contact Vane Blackmon MD [address] [place] [id number] Referral ID Status Reason Start Date Expiration Date Visits Re quested Visits Authorized [id number] Closed 1 1 Referral ID Status Reason Start Date Expiration Date Visits Re quested Visits Authorized [id number] Closed 1 1 Referral ID Status Reason Start Date Expiration Date Visits Re quested Visits Authorized [id number] Closed 1 1 Specialty Diagnoses / Procedures Referred By Stacy t Referred To Contact MR IMAGING Diagnoses Malignant neoplasm of upper-outer quadrant of left breast in female, estrogen receptor positive (HCC) Procedures MRI BREAST BX WO/W IVCON LT BX BREAST W/DEVICE 1ST [place] [address] [place] [id number] Mr Imaging Referral ID Status Reason Start Date Expiration Date Visits Requested Visits Authorized [id number] Pending Review Auto-Generat ed Referral 11/07/2021 12/07/2022 1 1 Specialty Diagnoses / Procedures Referred By Stacy t Referred To Contact MR IMAGING Diagnoses Malignant neoplasm of upper-outer quadrant of left breast in female, estrogen receptor positive (HCC) Procedures MRI BREAST BX WO/W IVCON LT BX BREAST W/DEVICE 1ST LESION MAGNETIC RES GUID MRI BREAST BX [place] [address] [place] [address] Mr Imaging Referral ID Status Reason Start Date Expiration Date V isits Requested Visits Authorized [id number] Closed Auto-Generate d Referral 11/08/2021 07/08/2022 1 1 Specialty Diagnoses / Procedures Referred By Contac t Referred To Contact MR IMAGING Diagnoses Malignant neoplasm of overlapping sites of left breast in female, estrogen receptor positive (HCC) Procedures MRI BREAST WO/W IVCON BILAT MRI BREAST WITHOUT&WITH CONTRAST W/[place] [address] [place] [id number] Mr Imaging Referral ID Status Reason Start Date Expiration Date V isits Requested Visits Authorized [id number] Closed Auto-Generate d Referral 02/21/2022 05/22/2022 1 1 Specialty Diagnoses / Procedures Referred By Contac t Referred To Contact [facility] Diagnoses Malignant neoplasm of upper-outer quadrant of left breast in female, estrogen receptor positive (HCC) Procedures CONSULT TO BREAST REHAB PROGRAM THERAPEUTIC EXERCISES RE, EA 15 MIN. THERAPEUT ACTVITY DIRECT PT CONTACT EACH 15 MIN Amber Miles PA-C [address] [place] [address] [facility] [address] [address] Referral ID Status Reason Start Date Expiration Date Visits Requested Visits Authorized [id number] Authorized PCP Requested Referral Auto-Generate d Referral 2 04/26/2023 1 1 Specialty Diagnoses / Procedures Referred By Contac t Referred To Contact [facility] Diagnoses Malignant neoplasm of left female breast, unspecified estrogen receptor status, unspecified site of breast (HCC) Procedures CONSULT TO BREAST REHAB PROGRAM THERAPEUTIC EXERCISES RE, EA 15 MIN. 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) Crohn's disease with complication, unspecified gastrointestinal tract location (HCC) Thrombocytopenia (HCC) Elevated alkaline phosphatase level Procedures CT ABD/PEL W IVCON CT ABD & PELVIS W/CONTRAST Chantal Ayers, DO [address] [facility] [place] [address] [place] [address] Referral ID Status Reason Start Date Expiration Date V isits Requested Visits Authorized [id number] Closed Auto-Generate d Referral 03/21/2023 05/04/2023 1 1 Specialty Diagnoses / Procedures Referred By Stacy t Referred To Contact CT IMAGING Diagnoses Malignant neoplasm of upper-outer quadrant of left breast in female, 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) Crohn's disease with complication, unspecified gastrointestinal tract location (HCC) Thrombocytopenia (HCC) Elevated alkaline phosphatase level Procedures CT ABD/PEL W IVCON CT ABD & PELVIS W/CONTRAST Chantal Ayers, DO [address] [place] [address] Ct Imaging [facility] Specialty Diagnoses / Procedures Referred By Stacy t Referred To Contact Radiology Diagnoses Crohn's disease of both small and large intestine without complication (CMS/HCC) Elevated alkaline phosphatase level Procedures MRCP pancreas w and wo IV contrast Luz Garza R, DO [address] [facility], [place] [address] [place] [id number] Referral ID Status Reason Start Date Expiration Date Visits Requested Visits Authorized [id number] Pending Review Perform Procedure 07/10/2023 07/09/2024 1 1 Specialty Diagnoses / Procedures Referred By Stacy t Referred To Contact Gastroenterology Diagnoses Crohn's disease of both small and large intestine without complication (Multi) Procedures Colonoscopy Screening; High Risk Patient; crohn's disease VA COLONOSCOPY FLX DX W/COLLJ SPEC WHEN PFRMD VA COLON CA SCRN NOT HI RSK IND VA COLORECTAL SCRN; HI RISK IND VA COLONOSCOPY W/BIOPSY SINGLE/MULTIPLE VA COLSC FLX W/RMVL OF TUMOR POLYP LESION SNARE TQ VA COLSC FLX W/REMOVAL LESION BY HOT BX FORCEPS Luz Garza, DO [address] [facility], [facility] [address] [place] [address] Referral ID Status Reason Start Date Expiration Date V isits Requested Visits Authorized [id number] Pending Review 11/08/2023 11/07/2024 1 1 Specialty Diagnoses / Procedures Referred By Ewelinaac t Referred To Contact Diagnoses History of breast cancer Procedures CONSULT TO HEMATOLOGY/ONCOLOGY OFFICE/OUTPATIENT [facility] [address] [place] [address] [place] [address] Referral ID Status Reason Start Date Expiration Date Visits Requested Visits Authorized [id number] Authorized PCP Requested Referral 12/24/2023 03/23/2024 1 1 Specialty Diagnoses / Procedures Referred By Stacy t Referred To Contact Diagnoses History of breast cancer Pre-conception counseling Procedures CONSULT TO INFERTILITY CLINIC OFFICE/OUTPATIENT [facility] 60 MINUTES Cristopher Alaniz APRN.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 [address] [place] [address] Referral ID Status Reason Start Date Expiration Date Visits Requested Visits Authorized [id number] Authorized PCP Requested Referral Auto-Generate d Referral 12/28/2023 12/27/2024 1 1 Specialty Diagnoses / Procedures Referred By Stacy vernon Referred To Contact MR IMAGING Diagnoses HER2-positive carcinoma of left breast (HCC) Procedures MRI BREAST WO/W IVCON BILATERAL MRI BREAST WITHOUT&WITH CONTRAST W/[place] [address] [place] [address] [place] [address] Referral ID Status Reason Start Date Expiration Date Visits Requested Visits Authorized [id number] New Request Auto-Generat ed Referral 07/23/2024 08/22/2025 1 1 Medications Administered Section Inactive Administered Medications - up to 3 most recent administrations Medication Order MAR Action Action Date Dose Rate Site lidocaine (PF) 10 mg/mL (1 %) injection (XYLOCAINE) SUBCUTANEOUS, NEEDED, Starting on Sun11/01/21 at 1020, Until Sun11/01/21 at 1020 Given 11/01/2021 10:20 AM EDT 3.5 mL Breast, Left Inactive Administered Medications - up to 3 most recent administrations Medication Order MAR Action Action Date Dose Rate Site lidocaine (PF) 10 mg/mL (1 %) injection (XYLOCAINE) SUBCUTANEOUS, NEEDED, Starting on Sun11/01/21 at 0959, Until Sun11/01/21 at 0959 Given 11/01/2021 9:59 AM EDT 4 mL Breas t, Left Inactive Administered Medications - up to 3 most recent administrations Medication Order MAR Action Action Date Dose Rate Site lidocaine 1%-EPINEPHrine 1:100,000 injection SUBCUTANEOUS, NEEDED, Starting on Sun11/10/21 at 1324, Until Sun11/10/21 at 1324 Given 11/10/2021 1:24 PM EDT 10 mL Breas t, Left lidocaine 2 % (XYLOCAINE) TOPICAL, NEEDED, Starting on Sun11/10/21 at 1323, Until Sun11/10/21 at 1323 Given 11/10/2021 1:23 PM EDT 5 mL Breas t, Left Inactive Administered Medications - up to 3 most recent administrations Medication Order MAR Action Action Date Dose Rate Site CARBOplatin 862.2 mg in NaCl 0.9% 275 mL (PARAPLATIN) 862.2 mg (Target AUC = 6), INTRAVENOUS, Administer over 30 Minutes, ONCE, 1 dose, On Sun11/24/21 at 0930, Exp 92911/25/21 (room temp) TOTAL VOLUME = 340 ML Hazardous Chemotherapy Drug: Use appropriate PPE. Antineoplastic Irritant. New Bag/Syringe/Bottl e 11/24/2021 2:44 PM EDT 862.2 mg dexAMETHasone 10 mg/NS 50 mL (PYXIS) 10 mg ivpb (DECADRON) 10 mg, INTRAVENOUS, ONCE, 1 dose, On Sun11/24/21 at 0930, Refrigerate. New Bag/Syringe/Bottl e 11/24/2021 9:15 AM EDT 10 mg diphenhydrAMINE 50 mg injection (BENADRYL) 50 mg, INTRAVENOUS, ONCE, 1 dose, On Lara 11/24/21 at 0930, Give prior to chemotherapy. Given 11/24/2021 9:15 AM EDT 50 mg DOCEtaxel 135 mg in NaCl 0.9% 288.5 mL (TAXOTERE) 135 mg (75 mg/m2 1.8 m2 Treatment Plan BSA from Recorded weight), INTRAVENOUS, Administer over 1 Hours, ONCE, 1 dose, On Lara 11/24/21 at 0930, ANTINEOPLASTIC IRRITANT NON-PVC container. Infuse via Non-DEHP set. exp 11/28/21 (refrigerated) Hazardous Chemotherapy Drug: Use appropriate PPE. Antineoplastic Irritant. New Bag/Syringe/Bottl e 11/24/2021 1:37 PM EDT 135 mg famotidine 20 mg injection (PEPCID) 20 mg, INTRAVENOUS, ONCE, 1 dose, On Lara 11/24/21 at 0930, Give prior to chemotherapy. REFRIGERATE Given 11/24/2021 9:15 AM EDT 20 mg fosaprepitant 150 mg in NaCl 0.9% 250 mL (EMEND) 150 mg, INTRAVENOUS, Administer over 30 Minutes, ONCE, 1 dose, On Lara 11/24/21 at 0930, Approximate Total Volume = 280 mL New Bag/Syringe/Bottl e 11/24/2021 9:38 AM EDT 150 mg palonosetron 0.25 mg injection (ALOXI) 0.25 mg, INTRAVENOUS, ONCE, 1 dose, On Lara 11/24/21 at 0930, Flush IV line with NS prior to and following administration. Given 11/24/2021 9:15 AM EDT 0.25 mg pegfilgrastim 6 mg wearable injection (NEULASTA ONPRO) 6 mg, SUBCUTANEOUS, ONCE, 1 dose, On Lara 11/24/21 at 0930 Apheresis and/or Portable Pump 11/24/2021 3:18 PM EDT 6 mg Abdominal Tissue pertuzumab 840 mg in NaCl 0.9% 303 mL (PERJETA) 840 mg, INTRAVENOUS, Administer over 60 Minutes, ONCE, 1 dose, On Lara 11/24/21 at 0930, Immediate use Hazardous Chemotherapy Drug: Use appropriate PPE. Refrigerate - Do Not Shake. For cycle 1 (initial pertuzumab infusion), infuse premedications first followed by trastuzumab and pertuzumab. The patient should be observed for 60 min. If no infusion reactions occurred, can give pertuzumab then trastuzumab in that order without an observation period between infusions for subsequent cycles. New Bag/Syringe/Bottl e 11/24/2021 12:29 PM EDT 840 mg trastuzumab-dttb 540.8 mg in NaCl 0.9% 300.7421 mL (ONTRUZANT) 540.8 mg (8 mg/kg/dose 67.6 kg Treatment plan Recorded weight), INTRAVENOUS, Administer over 90 Minutes, ONCE, 1 dose, On Sun11/24/21 at 0930, exp 0911/25/21 (refrigerated) DO NOT SHAKE Refrigerate New Bag/Syringe/Bottl e 11/24/2021 10:13 AM EDT 540.8 mg Inactive Administered Medications - up to 3 most recent administrations Medication Order MAR Action Action Date Dose Rate Site leuprolide 3.75 mg injection (LUPRON DEPOT) 3.75 mg, INTRAMUSCULAR, ONCE, 1 dose, On Sun12/09/21 at 1130, Hazardous Chemotherapy Drug: Use appropriate PPE. Given 12/09/2021 11:24 AM EDT 3.75 mg Buttocks, Right Inactive Administered Medications - up to 3 most recent administrations Medication Order MAR Action Action Date Dose Rate Site CARBOplatin 862.2 mg in NaCl 0.9% 275 mL (PARAPLATIN) 862.2 mg (Target AUC = 6), INTRAVENOUS, Administer over 30 Minutes, ONCE, 1 dose, On Sun12/16/21 at 0830, exp 0930 12/17/21 (room temp) TOTAL VOLUME = 340 ML Hazardous Chemotherapy Drug: Use appropriate PPE. Antineoplastic Irritant. New Bag/Syringe/Bottl e 12/16/2021 11:22 AM EDT 862.2 mg dexAMETHasone 10 mg/NS 50 mL (PYXIS) 10 mg ivpb (DECADRON) 10 mg, INTRAVENOUS, ONCE, 1 dose, On Sun12/16/21 at 0830, Refrigerate. New Bag/Syringe/Bottl e 12/16/2021 8:15 AM EDT 10 mg diphenhydrAMINE 50 mg injection (BENADRYL) 50 mg, INTRAVENOUS, ONCE, 1 dose, On Sun12/16/21 at 0830, Give prior to chemotherapy. Given 12/16/2021 8:15 AM EDT 50 mg DOCEtaxel 135 mg in NaCl 0.9% 288.5 mL (TAXOTERE) 135 mg (75 mg/m2 1.8 m2 Treatment Plan BSA from Recorded weight), INTRAVENOUS, Administer over 1 Hours, ONCE, 1 dose, On Sun12/16/21 at 0830, ANTINEOPLASTIC IRRITANT NON-PVC container. Infuse via Non-DEHP set. exp 12/20/21 (refrigerated) Hazardous Chemotherapy Drug: Use appropriate PPE. Antineoplastic Irritant. New Bag/Syringe/Bottl e 12/16/2021 10:18 AM EDT 135 mg famotidine 20 mg injection (PEPCID) 20 mg, INTRAVENOUS, ONCE, 1 dose, On Sun12/16/21 at 0830, Give prior to chemotherapy. REFRIGERATE Given 12/16/2021 8:16 AM EDT 20 mg fosaprepitant 150 mg in NaCl 0.9% 250 mL (EMEND) 150 mg, INTRAVENOUS, Administer over 30 Minutes, ONCE, 1 dose, On Sun12/16/21 at 0830, Approximate Total Volume = 280 mL New Bag/Syringe/Bottl e 12/16/2021 8:34 AM EDT 150 mg palonosetron 0.25 mg injection (ALOXI) 0.25 mg, INTRAVENOUS, ONCE, 1 dose, On Sun12/16/21 at 0830, Flush IV line with NS prior to and following administration. Given 12/16/2021 8:16 AM EDT 0.25 mg pegfilgrastim 6 mg wearable injection (NEULASTA ONPRO) 6 mg, SUBCUTANEOUS, ONCE, 1 dose, On Sun12/16/21 at 0830 Given 12/16/2021 11:42 AM EDT 6 mg Abdomen, LUQ pertuzumab 420 mg in NaCl 0.9% 289 mL (PERJETA) 420 mg, INTRAVENOUS, Administer over 30 Minutes, ONCE, 1 dose, On Sun12/16/21 at 0830, exp 0812/17/21 (refrigerated) Hazardous Chemotherapy Drug: Use appropriate PPE. Refrigerate - Do Not Shake. For cycle 1 (initial pertuzumab infusion), infuse premedications first followed by trastuzumab and pertuzumab. The patient should be observed for 60 min. If no infusion reactions occurred, can give pertuzumab then trastuzumab in that order without an observation period between infusions for subsequent cycles. New Bag/Syringe/Bottl e 12/16/2021 9:44 AM EDT 420 mg trastuzumab-dttb 405.6 mg in NaCl 0.9% 294.3066 mL (ONTRUZANT) 405.6 mg (6 mg/kg/dose 67.6 kg Treatment plan Recorded weight), INTRAVENOUS, Administer over 30 Minutes, ONCE, 1 dose, On Sun12/16/21 at 0830, exp 0812/17/21 (refrigerated) - DO NOT SHAKE Refrigerate New Bag/Syringe/Bottl e 12/16/2021 9:07 AM EDT 405.6 mg Inactive Administered Medications - up to 3 most recent administrations Medication Order MAR Action Action Date Dose Rate Site CARBOplatin 862.2 mg in NaCl 0.9% 361.22 mL (PARAPLATIN) 862.2 mg (Target AUC = 6), INTRAVENOUS, Administer over 30 Minutes, ONCE, 1 dose, On Sun01/06/22 at 1100, exp 10301/07/22 (room temp) Hazardous Chemotherapy Drug: Use appropriate PPE. Antineoplastic Irritant. New Bag/Syringe/Bottl e 01/06/2022 1:45 PM EDT 862.2 mg dexAMETHasone 10 mg/NS 50 mL (PYXIS) 10 mg ivpb (DECADRON) 10 mg, INTRAVENOUS, ONCE, 1 dose, On Sun01/06/22 at 1030, Refrigerate. New Bag/Syringe/Bottl e 01/06/2022 10:31 AM EDT 10 mg diphenhydrAMINE 50 mg injection (BENADRYL) 50 mg, INTRAVENOUS, ONCE, 1 dose, On Sun01/06/22 at 1030, Give prior to chemotherapy. Given 01/06/2022 10:29 AM EDT 50 mg DOCEtaxel 135 mg in NaCl 0.9% 288.5 mL (TAXOTERE) 135 mg (75 mg/m2 1.8 m2 Treatment Plan BSA from Recorded weight), INTRAVENOUS, Administer over 1 Hours, ONCE, 1 dose, On Sun01/06/22 at 1030, ANTINEOPLASTIC IRRITANT NON-PVC container. Infuse via Non-DEHP set. exp 102901/07/22 (room temp) Hazardous Chemotherapy Drug: Use appropriate PPE. Antineoplastic Irritant. New Bag/Syringe/Bottl e 01/06/2022 12:40 PM EDT 135 mg famotidine 20 mg injection (PEPCID) 20 mg, INTRAVENOUS, ONCE, 1 dose, On Sun01/06/22 at 1030, Give prior to chemotherapy. REFRIGERATE Given 01/06/2022 10:29 AM EDT 20 mg fosaprepitant 150 mg in NaCl 0.9% 250 mL (EMEND) 150 mg, INTRAVENOUS, Administer over 30 Minutes, ONCE, 1 dose, On Sun01/06/22 at 1030, Approximate Total Volume = 280 mL New Bag/Syringe/Bottl e 01/06/2022 10:53 AM EDT 150 mg palonosetron 0.25 mg injection (ALOXI) 0.25 mg, INTRAVENOUS, ONCE, 1 dose, On Sun01/06/22 at 1030, Flush IV line with NS prior to and following administration. Given 01/06/2022 10:29 AM EDT 0.25 mg pegfilgrastim 6 mg wearable injection (NEULASTA ONPRO) 6 mg, SUBCUTANEOUS, ONCE, 1 dose, On Sun01/06/22 at 1030 Given 01/06/2022 2:10 PM EDT 6 mg Abdomen, LUQ pertuzumab 420 mg in NaCl 0.9% 289 mL (PERJETA) 420 mg, INTRAVENOUS, Administer over 30 Minutes, ONCE, 1 dose, On Sun01/06/22 at 1030, Immediate use Hazardous Chemotherapy Drug: Use appropriate PPE. Refrigerate - Do Not Shake. For cycle 1 (initial pertuzumab infusion), infuse premedications first followed by trastuzumab and pertuzumab. The patient should be observed for 60 min. If no infusion reactions occurred, can give pertuzumab then trastuzumab in that order without an observation period between infusions for subsequent cycles. New Bag/Syringe/Bottl e 01/06/2022 11:31 AM EDT 420 mg trastuzumab-dttb 405.6 mg in NaCl 0.9% 294.3066 mL (ONTRUZANT) 405.6 mg (6 mg/kg/dose 67.6 kg Treatment plan Recorded weight), INTRAVENOUS, Administer over 30 Minutes, ONCE, 1 dose, On Sun01/06/22 at 1030, exp 1830 01/06/22 (refrigerated) - DO NOT SHAKE Refrigerate New Bag/Syringe/Bottl e 01/06/2022 12:04 PM EDT 405.6 mg Inactive Administered Medications - up to 3 most recent administrations Medication Order MAR Action Action Date Dose Rate Site CARBOplatin 862.2 mg in NaCl 0.9% 361.22 mL (PARAPLATIN) 862.2 mg (Target AUC = 6), INTRAVENOUS, Administer over 30 Minutes, ONCE, 1 dose, On Sun01/27/22 at 1000, exp 99901/28/22 (room temp) - Hazardous Chemotherapy Drug: Use appropriate PPE. Antineoplastic Irritant. New Bag/Syringe/Abdon 01/27/2022 1:02 PM EDT 862.2 mg dexAMETHasone 10 mg/NS 50 mL (PYXIS) 10 mg ivpb (DECADRON) 10 mg, INTRAVENOUS, ONCE, 1 dose, On Sun01/27/22 at 1000, Refrigerate. New Bag/Syringe/Abdon 01/27/2022 9:49 AM EDT 10 mg diphenhydrAMINE 50 mg injection (BENADRYL) 50 mg, INTRAVENOUS, ONCE, 1 dose, On Sun01/27/22 at 1000, Give prior to chemotherapy. Given 01/27/2022 9:49 AM EDT 50 mg DOCEtaxel 135 mg in NaCl 0.9% 288.5 mL (TAXOTERE) 135 mg (75 mg/m2 1.8 m2 Treatment Plan BSA from Recorded weight), INTRAVENOUS, Administer over 1 Hours, ONCE, 1 dose, On Sun01/27/22 at 1000, ANTINEOPLASTIC IRRITANT NON-PVC container. Infuse via Non-DEHP set. exp 99901/28/22 (room temp) Hazardous Chemotherapy Drug: Use appropriate PPE. Antineoplastic Irritant. New Bag/Syringe/Abdon 01/27/2022 11:54 AM EDT 135 mg famotidine 20 mg injection (PEPCID) 20 mg, INTRAVENOUS, ONCE, 1 dose, On Sun01/27/22 at 1000, Give prior to chemotherapy. REFRIGERATE Given 01/27/2022 9:49 AM EDT 20 mg fosaprepitant 150 mg in NaCl 0.9% 250 mL (EMEND) 150 mg, INTRAVENOUS, Administer over 30 Minutes, ONCE, 1 dose, On Sun01/27/22 at 1000, Approximate Total Volume = 280 mL New Bag/Syringe/Abdon 01/27/2022 10:11 AM EDT 150 mg leuprolide 3.75 mg injection (LUPRON DEPOT) 3.75 mg, INTRAMUSCULAR, ONCE, 1 dose, On Sun01/27/22 at 1030, Hazardous Chemotherapy Drug: Use appropriate PPE. Given 01/27/2022 10:23 AM EDT 3.75 mg Buttocks, Right palonosetron 0.25 mg injection (ALOXI) 0.25 mg, INTRAVENOUS, ONCE, 1 dose, On Sun01/27/22 at 1000, Flush IV line with NS prior to and following administration. Given 01/27/2022 9:49 AM EDT 0.25 mg pegfilgrastim 6 mg wearable injection (NEULASTA ONPRO) 6 mg, SUBCUTANEOUS, ONCE, 1 dose, On Sun01/27/22 at 1000 Given 01/27/2022 10:00 AM EDT 6 mg Arm, Right pertuzumab 420 mg in NaCl 0.9% 289 mL (PERJETA) 420 mg, INTRAVENOUS, Administer over 30 Minutes, ONCE, 1 dose, On Sun01/27/22 at 1000, Immediate use Hazardous Chemotherapy Drug: Use appropriate PPE. Refrigerate - Do Not Shake. For cycle 1 (initial pertuzumab infusion), infuse premedications first followed by trastuzumab and pertuzumab. The patient should be observed for 60 min. If no infusion reactions occurred, can give pertuzumab then trastuzumab in that order without an observation period between infusions for subsequent cycles. New Bag/Syringe/Abdon le 01/27/2022 10:46 AM EDT 420 mg trastuzumab-dttb 405.6 mg in NaCl 0.9% 294.3066 mL (ONTRUZANT) 405.6 mg (6 mg/kg/dose 67.6 kg Treatment plan Recorded weight), INTRAVENOUS, Administer over 30 Minutes, ONCE, 1 dose, On Sun01/27/22 at 1000, exp 1800 01/27/22 (refrigerated) DO NOT SHAKE Refrigerate New Bag/Syringe/Abdon le 01/27/2022 11:20 AM EDT 405.6 mg Inactive Administered Medications - up to 3 most recent administrations Medication Order MAR Action Action Date Dose Rate Site NaCl 0.9% 1,000 mL INTRAVENOUS, at 500 mL/hr, Administer over 2 Hours, ONCE, 1 dose, On Sun02/08/22 at 0930 New Bag/Syringe/Bottle 02/08/2022 9:30 AM EDT 500 mL/hr Inactive Administered Medications - up to 3 most recent administrations Medication Order MAR Action Action Date Dose Rate Site CARBOplatin 862.2 mg in NaCl 0.9% 361.22 mL (PARAPLATIN) 862.2 mg (Target AUC = 6), INTRAVENOUS, Administer over 30 Minutes, ONCE, 1 dose, On Sun02/20/22 at 0900, exp 1500 02/21/22 (room temp) (hard bag) Hazardous Chemotherapy Drug: Use appropriate PPE. Antineoplastic Irritant. New Bag/Syringe/Bottl e 02/20/2022 12:06 PM EDT 862.2 mg dexAMETHasone 10 mg/NS 50 mL (PYXIS) 10 mg ivpb (DECADRON) 10 mg, INTRAVENOUS, ONCE, 1 dose, On Sun02/20/22 at 0900, Refrigerate. New Bag/Syringe/Bottl e 02/20/2022 8:59 AM EDT 10 mg diphenhydrAMINE 50 mg injection (BENADRYL) 50 mg, INTRAVENOUS, ONCE, 1 dose, On Sun02/20/22 at 0900, Give prior to chemotherapy. Given 02/20/2022 8:53 AM EDT 50 mg DOCEtaxel 135 mg in NaCl 0.9% 288.5 mL (TAXOTERE) 135 mg (75 mg/m2 1.8 m2 Treatment Plan BSA from Recorded weight), INTRAVENOUS, Administer over 1 Hours, ONCE, 1 dose, On Sun02/20/22 at 0900, ANTINEOPLASTIC IRRITANT NON-PVC container. Infuse via Non-DEHP set. exp 09:00 02/22/22 (room temp) Hazardous Chemotherapy Drug: Use appropriate PPE. Antineoplastic Irritant. New Bag/Syringe/Bottl e 02/20/2022 11:04 AM EDT 135 mg famotidine 20 mg injection (PEPCID) 20 mg, INTRAVENOUS, ONCE, 1 dose, On Sun02/20/22 at 0900, Give prior to chemotherapy. REFRIGERATE Given 02/20/2022 8:57 AM EDT 20 mg fosaprepitant 150 mg in NaCl 0.9% 250 mL (EMEND) 150 mg, INTRAVENOUS, Administer over 30 Minutes, ONCE, 1 dose, On Sun02/20/22 at 0900, Approximate Total Volume = 280 mL New Bag/Syringe/Bottl e 02/20/2022 9:24 AM EDT 150 mg palonosetron 0.25 mg injection (ALOXI) 0.25 mg, INTRAVENOUS, ONCE, 1 dose, On Sun02/20/22 at 0900, Flush IV line with NS prior to and following administration. Given 02/20/2022 8:51 AM EDT 0.25 mg pegfilgrastim 6 mg wearable injection (NEULASTA ONPRO) 6 mg, SUBCUTANEOUS, ONCE, 1 dose, On Sun02/20/22 at 0900 Given 02/20/2022 12:04 PM EDT 6 mg Abdomen, LLQ pertuzumab 420 mg in NaCl 0.9% 289 mL (PERJETA) 420 mg, INTRAVENOUS, Administer over 30 Minutes, ONCE, 1 dose, On Sun02/20/22 at 0900, exp immediate use (room temp) Hazardous Chemotherapy Drug: Use appropriate PPE. Refrigerate - Do Not Shake. For cycle 1 (initial pertuzumab infusion), infuse premedications first followed by trastuzumab and pertuzumab. The patient should be observed for 60 min. If no infusion reactions occurred, can give pertuzumab then trastuzumab in that order without an observation period between infusions for subsequent cycles. New Bag/Syringe/Bottl e 02/20/2022 10:29 AM EDT 420 mg trastuzumab-dttb 405.6 mg in NaCl 0.9% 294.3066 mL (ONTRUZANT) 405.6 mg (6 mg/kg/dose 67.6 kg Treatment plan Recorded weight), INTRAVENOUS, Administer over 30 Minutes, ONCE, 1 dose, On Sun02/20/22 at 0900, exp 1700 02/20/22 (room temp) - DO NOT SHAKE Refrigerate New Bag/Syringe/Bottl e 02/20/2022 9:57 AM EDT 405.6 mg Inactive Administered Medications - up to 3 most recent administrations Medication Order MAR Action Action Date Dose Rate Site CARBOplatin 862.2 mg in NaCl 0.9% 361.22 mL (PARAPLATIN) 862.2 mg (Target AUC = 6), INTRAVENOUS, Administer over 30 Minutes, ONCE, 1 dose, On Sun03/14/22 at 1100, Approx Total Volume EXP: 03/15/22 @ 1100 Hazardous Chemotherapy Drug: Use appropriate PPE. Antineoplastic Irritant. New Bag/Syringe/Abdon le 03/14/2022 2:49 PM EDT 862.2 mg dexAMETHasone 10 mg/NS 50 mL (PYXIS) 10 mg ivpb (DECADRON) 10 mg, INTRAVENOUS, ONCE, 1 dose, On Sun03/14/22 at 1100, Refrigerate. New Bag/Syringe/Abdon le 03/14/2022 11:16 AM EDT 10 mg diphenhydrAMINE 50 mg injection (BENADRYL) 50 mg, INTRAVENOUS, ONCE, 1 dose, On Sun03/14/22 at 1100, Give prior to chemotherapy. Given 03/14/2022 11:14 AM EDT 50 mg DOCEtaxel 135 mg in NaCl 0.9% 288.5 mL (TAXOTERE) 135 mg (75 mg/m2 1.8 m2 Treatment Plan BSA from Recorded weight), INTRAVENOUS, Administer over 1 Hours, ONCE, 1 dose, On Sun03/14/22 at 1100, ANTINEOPLASTIC IRRITANT NON-PVC container. Infuse via Non-DEHP set. Approx Total Volume EXP: 03/16/22 @ 1100 Hazardous Chemotherapy Drug: Use appropriate PPE. Antineoplastic Irritant. New Bag/Syringe/Abdon le 03/14/2022 1:36 PM EDT 135 mg famotidine 20 mg injection (PEPCID) 20 mg, INTRAVENOUS, ONCE, 1 dose, On Sun03/14/22 at 1100, Give prior to chemotherapy. REFRIGERATE Given 03/14/2022 11:14 AM EDT 20 mg fosaprepitant 150 mg in NaCl 0.9% 250 mL (EMEND) 150 mg, INTRAVENOUS, Administer over 30 Minutes, ONCE, 1 dose, On Sun03/14/22 at 1100, Approximate Total Volume = 280 mL New Bag/Syringe/Abdon 03/14/2022 11:37 AM EDT 150 mg leuprolide 3.75 mg injection (LUPRON DEPOT) 3.75 mg, INTRAMUSCULAR, ONCE, 1 dose, On Sun03/14/22 at 1100, Hazardous Chemotherapy Drug: Use appropriate PPE. Given 03/14/2022 2:52 PM EDT 3.75 mg Buttocks, Left palonosetron 0.25 mg injection (ALOXI) 0.25 mg, INTRAVENOUS, ONCE, 1 dose, On Sun03/14/22 at 1100, Flush IV line with NS prior to and following administration. Given 03/14/2022 11:14 AM EDT 0.25 mg pertuzumab 420 mg in NaCl 0.9% 289 mL (PERJETA) 420 mg, INTRAVENOUS, Administer over 30 Minutes, ONCE, 1 dose, On Sun03/14/22 at 1100, Approx Total Volume EXP: IMMEDIATE USE Hazardous Chemotherapy Drug: Use appropriate PPE. Refrigerate - Do Not Shake. For cycle 1 (initial pertuzumab infusion), infuse premedications first followed by trastuzumab and pertuzumab. The patient should be observed for 60 min. If no infusion reactions occurred, can give pertuzumab then trastuzumab in that order without an observation period between infusions for subsequent cycles. New Bag/Syringe/Abdon le 03/14/2022 1:00 PM EDT 420 mg trastuzumab-dttb 405.6 mg in NaCl 0.9% 294.3066 mL (ONTRUZANT) 405.6 mg (6 mg/kg/dose 67.6 kg Treatment plan Recorded weight), INTRAVENOUS, Administer over 30 Minutes, ONCE, 1 dose, On Sun03/14/22 at 1100, Approx Total Volume EXP: IMMEDIATE USE - DO NOT SHAKE Refrigerate New Bag/Syringe/Abdon le 03/14/2022 12:26 PM EDT 405.6 mg Inactive Administered Medications - up to 3 most recent administrations Medication Order MAR Action Action Date Dose Rate Site pegfilgrastim-bmez 6 mg injection (ZIEXTENZO) 6 mg, SUBCUTANEOUS, ONCE, 1 dose, On Sun03/15/22 at 1600, Refrigerate - Protect From Light - Do Not Shake - Allow prefilled syringe to reach room temperature for at least 15-30 minutes prior to injection. Given 03/15/2022 3:48 PM EDT 6 mg Arm, Right Inactive Administered Medications - up to 3 most recent administrations Medication Order MAR Action Action Date Dose Rate Site leuprolide 3.75 mg injection (LUPRON DEPOT) 3.75 mg, INTRAMUSCULAR, ONCE, 1 dose, On Sun04/11/22 at 1430, Hazardous Chemotherapy Drug: Use appropriate PPE. Given 04/11/2022 2:12 PM EDT 3.75 mg Buttocks, Right Inactive Administered Medications - up to 3 most recent administrations Medication Order MAR Action Action Date Dose Rate Site leuprolide 3.75 mg injection (LUPRON DEPOT) 3.75 mg, INTRAMUSCULAR, ONCE, 1 dose, On Sun05/09/22 at 1400, Hazardous Chemotherapy Drug: Use appropriate PPE. Given 05/09/2022 2:05 PM EDT 3.75 mg Buttocks, Left Inactive Administered Medications - up to 3 most recent administrations Medication Order MAR Action Action Date Dose Rate Site leuprolide 3.75 mg injection (LUPRON DEPOT) 3.75 mg, INTRAMUSCULAR, ONCE, 1 dose, On Sun06/09/22 at 1200, Hazardous Chemotherapy Drug: Use appropriate PPE. Given 06/09/2022 11:59 AM EST 3.75 mg Buttocks, Right Inactive Administered Medications - up to 3 most recent administrations Medication Order MAR Action Action Date Dose Rate Site ado-trastuzumab emtansine 244.08 mg in NaCl 0.9% 287.204 mL (KADCYLA) 244.08 mg (3.6 mg/kg/dose 67.8 kg Treatment plan Recorded weight), INTRAVENOUS, Administer over 90 Minutes, ONCE, 1 dose, On Sun06/13/22 at 1130, Immediate use - DO NOT SHAKE Hazardous Chemotherapy Drug: Use link to view personal protective equipment (PPE) guidelines. Administer with 0.2 micron filter. New Bag/Syringe/Bottle 06/13/2022 11:32 AM EST 244.08 mg Inactive Administered Medications - up to 3 most recent administrations Medication Order [facility] Action Action Date Dose Rate Site ado-trastuzumab emtansine 244.08 mg in NaCl 0.9% 287.204 mL (KADCYLA) 244.08 mg (3.6 mg/kg/dose 67.8 kg Treatment plan Recorded weight), INTRAVENOUS, Administer over 30 Minutes, ONCE, 1 dose, On Sun08/08/22 at 1530, exp immediate use (room temp) - DO NOT SHAKE Hazardous Chemotherapy Drug: Use link to view personal protective equipment (PPE) guidelines. Administer with 0.2 micron filter. New Bag/Syringe/Abdon le 08/08/2022 4:25 PM EST 244.08 mg dexAMETHasone 10 mg/NS 50 mL (PYXIS) 10 mg ivpb (DECADRON) 10 mg, INTRAVENOUS, ONCE, 1 dose, On Sun08/08/22 at 1530, Refrigerate. New Bag/Syringe/Abdon le 08/08/2022 4:00 PM EST 10 mg fosaprepitant 150 mg in NaCl 0.9% 250 mL (EMEND) 150 mg, INTRAVENOUS, Administer over 30 Minutes, ONCE, 1 dose, On Sun08/08/22 at 1530, Approximate Total Volume = 280 mL New Bag/Syringe/Abdon le 08/08/2022 3:30 PM EST 150 mg leuprolide 3.75 mg injection (LUPRON DEPOT) 3.75 mg, INTRAMUSCULAR, ONCE, 1 dose, On Sun08/08/22 at 1600, Hazardous Chemotherapy Drug: Use appropriate PPE. Given 08/08/2022 4:30 PM EST 3.75 mg Buttocks, Right ondansetron (PF) 8 mg injection (ZOFRAN) 8 mg, INTRAVENOUS, ONCE, 1 dose, On Sun08/08/22 at 1530 Given 08/08/2022 3:33 PM EST 8 mg pegfilgrastim 6 mg wearable injection (NEULASTA ONPRO) 6 mg, SUBCUTANEOUS, ONCE, 1 dose, On Sun08/08/22 at 1530, Refrigerate Given 08/08/2022 4:39 PM EST 6 mg Abdominal Tissue Inactive Administered Medications - up to 3 most recent administrations Medication Order MAR Action Action Date Dose Rate Site ado-trastuzumab emtansine 244.08 mg in NaCl 0.9% 287.204 mL (KADCYLA) 244.08 mg (3.6 mg/kg/dose 67.8 kg Treatment plan Recorded weight), INTRAVENOUS, Administer over 30 Minutes, ONCE, 1 dose, On Sun08/29/22 at 1500, EXP: immediate use at room temp - DO NOT SHAKE Hazardous Chemotherapy Drug: Use link to view personal protective equipment (PPE) guidelines. Administer with 0.2 micron filter. New Bag/Syringe/Abdon le 08/29/2022 3:45 PM EST 244.08 mg dexAMETHasone sodium phosphate 4 mg injection (DECADRON) 4 mg, INTRAVENOUS, ONCE, 1 dose, On Sun08/29/22 at 1500 Given 08/29/2022 3:12 PM EST 4 mg fosaprepitant 150 mg in NaCl 0.9% 250 mL (EMEND) 150 mg, INTRAVENOUS, Administer over 30 Minutes, ONCE, 1 dose, On Sun08/29/22 at 1500, Approximate Total Volume = 280 mL New Bag/Syringe/Abdon le 08/29/2022 3:14 PM EST 150 mg ondansetron (PF) 8 mg injection (ZOFRAN) 8 mg, INTRAVENOUS, ONCE, 1 dose, On Sun08/29/22 at 1500 Given 08/29/2022 3:10 PM EST 8 mg pegfilgrastim 6 mg wearable injection (NEULASTA ONPRO) 6 mg, SUBCUTANEOUS, ONCE, 1 dose, On Sun08/29/22 at 1500, Refrigerate Given 08/29/2022 3:47 PM EST 6 mg Abdominal Tissue Inactive Administered Medications - up to 3 most recent administrations Medication Order MAR Action Action Date Dose Rate Site ado-trastuzumab emtansine 200 mg in NaCl 0.9% 285 mL (KADCYLA) 200 mg (rounded from 203.4 mg = 3 mg/kg/dose 67.8 kg Treatment plan Recorded weight), INTRAVENOUS, Administer over 30 Minutes, ONCE, 1 dose, On Sun09/19/22 at 1500, exp immediate use (room temp) - DO NOT SHAKE Hazardous Chemotherapy Drug: Use link to view personal protective equipment (PPE) guidelines. Administer with 0.2 micron filter. New Bag/Syringe/Bottl e 09/19/2022 3:15 PM EDT 200 mg dexAMETHasone sodium phosphate 4 mg injection (DECADRON) 4 mg, INTRAVENOUS, ONCE, 1 dose, On Sun09/19/22 at 1500 Given 09/19/2022 2:38 PM EDT 4 mg fosaprepitant 150 mg in NaCl 0.9% 250 mL (EMEND) 150 mg, INTRAVENOUS, Administer over 30 Minutes, ONCE, 1 dose, On Sun09/19/22 at 1500, Approximate Total Volume = 280 mL New Bag/Syringe/Bottl e 09/19/2022 2:40 PM EDT 150 mg ondansetron (PF) 8 mg injection (ZOFRAN) 8 mg, INTRAVENOUS, ONCE, 1 dose, On Sun09/19/22 at 1500 Given 09/19/2022 2:38 PM EDT 8 mg pegfilgrastim 6 mg wearable injection (NEULASTA ONPRO) 6 mg, SUBCUTANEOUS, ONCE, 1 dose, On Sun09/19/22 at 1500, Refrigerate Given 09/19/2022 3:50 PM EDT 6 mg Abdominal Tissue Inactive Administered Medications - up to 3 most recent administrations Medication Order MAR Action Action Date Dose Rate Site leuprolide 3.75 mg injection (LUPRON DEPOT) 3.75 mg, INTRAMUSCULAR, ONCE, 1 dose, On Sun10/03/22 at 1000, Hazardous Chemotherapy Drug: Use appropriate PPE. Given 10/03/2022 9:43 AM EDT 3.75 mg Buttocks, Right Inactive Administered Medications - up to 3 most recent administrations Medication Order MAR Action Action Date Dose Rate Site ado-trastuzumab emtansine 200 mg in NaCl 0.9% 285 mL (KADCYLA) 200 mg (rounded from 203.4 mg = 3 mg/kg/dose 67.8 kg Treatment plan Recorded weight), INTRAVENOUS, Administer over 30 Minutes, ONCE, 1 dose, On Sun10/10/22 at 0930, exp immediate use (room temp) - DO NOT SHAKE Hazardous Chemotherapy Drug: Use link to view personal protective equipment (PPE) guidelines. Administer with 0.2 micron filter. New Bag/Syringe/Bottl e 10/10/2022 10:12 AM EDT 200 mg dexAMETHasone sodium phosphate 4 mg injection (DECADRON) 4 mg, INTRAVENOUS, ONCE, 1 dose, On Sun10/10/22 at 0930 Given 10/10/2022 9:30 AM EDT 4 mg fosaprepitant 150 mg in NaCl 0.9% 250 mL (EMEND) 150 mg, INTRAVENOUS, Administer over 30 Minutes, ONCE, 1 dose, On Sun10/10/22 at 0930, Approximate Total Volume = 280 mL New Bag/Syringe/Bottl e 10/10/2022 9:33 AM EDT 150 mg ondansetron (PF) 8 mg injection (ZOFRAN) 8 mg, INTRAVENOUS, ONCE, 1 dose, On Sun10/10/22 at 0930 Given 10/10/2022 9:30 AM EDT 8 mg pegfilgrastim 6 mg wearable injection (NEULASTA ONPRO) 6 mg, SUBCUTANEOUS, ONCE, 1 dose, On Sun10/10/22 at 0930, Refrigerate Given 10/10/2022 10:49 AM EDT 6 mg Abdominal Tissue Inactive Administered Medications - up to 3 most recent administrations Medication Order MAR Action Action Date Dose Rate Site leuprolide 3.75 mg injection (LUPRON DEPOT) 3.75 mg, INTRAMUSCULAR, ONCE, 1 dose, On Sun10/31/22 at 1030, Hazardous Chemotherapy Drug: Use appropriate PPE. Given 10/31/2022 10:32 AM EDT 3.75 mg Buttocks, Left Inactive Administered Medications - up to 3 most recent administrations Medication Order MAR Action Action Date Dose Rate Site ado-trastuzumab emtansine 200 mg in NaCl 0.9% 285 mL (KADCYLA) 200 mg (rounded from 203.4 mg = 3 mg/kg/dose 67.8 kg Treatment plan Recorded weight), INTRAVENOUS, Administer over 30 Minutes, ONCE, 1 dose, On Sun11/02/22 at 1000, exp immediate use (room temp) - DO NOT SHAKE Hazardous Chemotherapy Drug: Use link to view personal protective equipment (PPE) guidelines. Administer with 0.2 micron filter. New Bag/Syringe/Bottl e 11/02/2022 10:21 AM EDT 200 mg dexAMETHasone sodium phosphate 8 mg injection (DECADRON) 8 mg, INTRAVENOUS, ONCE, 1 dose, On Sun11/02/22 at 1000 Given 11/02/2022 9:45 AM EDT 8 mg fosaprepitant 150 mg in NaCl 0.9% 250 mL (EMEND) 150 mg, INTRAVENOUS, Administer over 30 Minutes, ONCE, 1 dose, On Sun11/02/22 at 1000, Approximate Total Volume = 280 mL New Bag/Syringe/Bottl e 11/02/2022 9:45 AM EDT 150 mg ondansetron (PF) 8 mg injection (ZOFRAN) 8 mg, INTRAVENOUS, ONCE, 1 dose, On Sun11/02/22 at 1000 Given 11/02/2022 9:45 AM EDT 8 mg pegfilgrastim 6 mg wearable injection (NEULASTA ONPRO) 6 mg, SUBCUTANEOUS, ONCE, 1 dose, On Sun11/02/22 at 1000, Refrigerate Given 11/02/2022 10:56 AM EDT 6 mg Abdominal Tissue Inactive Administered Medications - up to 3 most recent administrations Medication Order MAR Action Action Date Dose Rate Site ado-trastuzumab emtansine 200 mg in NaCl 0.9% 285 mL (KADCYLA) 200 mg (rounded from 203.4 mg = 3 mg/kg/dose 67.8 kg Treatment plan Recorded weight), INTRAVENOUS, Administer over 30 Minutes, ONCE, 1 dose, On Sun12/13/22 at 1530, exp immediate use (room temp) - DO NOT SHAKE Hazardous Chemotherapy Drug: Use link to view personal protective equipment (PPE) guidelines. Administer with 0.2 micron filter. New Bag/Syringe/Bottl e 12/13/2022 4:06 PM EDT 200 mg dexAMETHasone sodium phosphate 8 mg injection (DECADRON) 8 mg, INTRAVENOUS, ONCE, 1 dose, On Sun12/13/22 at 1530 Given 12/13/2022 3:27 PM EDT 8 mg fosaprepitant 150 mg in NaCl 0.9% 250 mL (EMEND) 150 mg, INTRAVENOUS, Administer over 30 Minutes, ONCE, 1 dose, On Sun12/13/22 at 1530, Approximate Total Volume = 280 mL New Bag/Syringe/Bottl e 12/13/2022 3:34 PM EDT 150 mg ondansetron (PF) 8 mg injection (ZOFRAN) 8 mg, INTRAVENOUS, ONCE, 1 dose, On Sun12/13/22 at 1530 Given 12/13/2022 3:31 PM EDT 8 mg pegfilgrastim 6 mg wearable injection (NEULASTA ONPRO) 6 mg, SUBCUTANEOUS, ONCE, 1 dose, On Sun12/13/22 at 1530, Refrigerate Given 12/13/2022 4:46 PM EDT 6 mg Abdominal Tissue Inactive Administered Medications - up to 3 most recent administrations Medication Order MAR Action Action Date Dose Rate Site ado-trastuzumab emtansine 200 mg in NaCl 0.9% 285 mL (KADCYLA) 200 mg (rounded from 203.4 mg = 3 mg/kg/dose 67.8 kg Treatment plan Recorded weight), INTRAVENOUS, Administer over 30 Minutes, ONCE, 1 dose, On Sun01/03/23 at 0930, Approx Total Volume EXP: 24 hours refrigerated (01/04/23 1000) - DO NOT SHAKE Hazardous Chemotherapy Drug: Use link to view personal protective equipment (PPE) guidelines. Administer with 0.2 micron filter. New Bag/Syringe/Bottle 01/03/2023 10:17 AM EDT 200 mg dexAMETHasone sodium phosphate 8 mg injection (DECADRON) 8 mg, INTRAVENOUS, ONCE, 1 dose, On Sun01/03/23 at 0930 Given 01/03/2023 9:40 AM EDT 8 mg fosaprepitant 150 mg in NaCl 0.9% 250 mL (EMEND) 150 mg, INTRAVENOUS, Administer over 30 Minutes, ONCE, 1 dose, On Sun01/03/23 at 0930, Approximate Total Volume = 280 mL Mix in non-DEHP bag - Refrigerate New Bag/Syringe/Bottle 01/03/2023 9:44 AM EDT 150 mg ondansetron (PF) 8 mg injection (ZOFRAN) 8 mg, INTRAVENOUS, ONCE, 1 dose, On Sun01/03/23 at 09 Given 01/03/2023 9:39 AM EDT 8 mg pegfilgrastim 6 mg wearable injection (NEULASTA ONPRO) 6 mg, SUBCUTANEOUS, ONCE, 1 dose, On Sun01/03/23 at 0930, Refrigerate Given 01/03/2023 10:33 AM EDT 6 mg Abdomen, RLQ Inactive Administered Medications - up to 3 most recent administrations Medication Order MAR Action Action Date Dose Rate Site leuprolide 3.75 mg injection (LUPRON DEPOT) 3.75 mg, INTRAMUSCULAR, ONCE, 1 dose, On Sun01/23/23 at 0930, Hazardous Chemotherapy Drug: Use appropriate PPE. Given 01/23/2023 9:17 AM EDT 3.75 mg Buttocks, Right Inactive Administered Medications - up to 3 most recent administrations Medication Order MAR Action Action Date Dose Rate Site ado-trastuzumab emtansine 200 mg in NaCl 0.9% 285 mL (KADCYLA) 200 mg (rounded from 203.4 mg = 3 mg/kg/dose 67.8 kg Treatment plan Recorded weight), INTRAVENOUS, Administer over 30 Minutes, ONCE, 1 dose, On Sun01/24/23 at 0930, exp immediate use (room temp) DO NOT SHAKE Hazardous Chemotherapy Drug: Use link to view personal protective equipment (PPE) guidelines. Administer with 0.2 micron filter. New Bag/Syringe/Bottl e 01/24/2023 9:58 AM EDT 200 mg dexAMETHasone sodium phosphate 8 mg injection (DECADRON) 8 mg, INTRAVENOUS, ONCE, 1 dose, On Sun01/24/23 at 0930 Given 01/24/2023 9:24 AM EDT 8 mg fosaprepitant 150 mg in NaCl 0.9% 250 mL (EMEND) 150 mg, INTRAVENOUS, Administer over 30 Minutes, ONCE, 1 dose, On 7/19/23 at 0930, Approximate Total Volume = 280 mL Mix in non-DEHP bag - Refrigerate New Bag/Syringe/Bottl e 01/24/2023 9:27 AM EDT 150 mg ondansetron (PF) 8 mg injection (ZOFRAN) 8 mg, INTRAVENOUS, ONCE, 1 dose, On Sun01/24/23 at 0930 Given 01/24/2023 9:22 AM EDT 8 mg pegfilgrastim 6 mg wearable injection (NEULASTA ONPRO) 6 mg, SUBCUTANEOUS, ONCE, 1 dose, On Sun01/24/23 at 0930, Refrigerate Given 01/24/2023 10:01 AM EDT 6 mg Abdominal Tissue Inactive Administered Medications - up to 3 most recent administrations Medication Order MAR Action Action Date Dose Rate Site ado-trastuzumab emtansine 200 mg in NaCl 0.9% 285 mL (KADCYLA) 200 mg (rounded from 203.4 mg = 3 mg/kg/dose 67.8 kg Treatment plan Recorded weight), INTRAVENOUS, Administer over 30 Minutes, ONCE, 1 dose, On Sun02/14/23 at 1000, exp immediate use (room temp) - DO NOT SHAKE Hazardous Chemotherapy Drug: Use link to view personal protective equipment (PPE) guidelines. Administer with 0.2 micron filter. New Bag/Syringe/Bottl e 02/14/2023 10:56 AM EDT 200 mg dexAMETHasone sodium phosphate 8 mg injection (DECADRON) 8 mg, INTRAVENOUS, ONCE, 1 dose, On Sun02/14/23 at 1000 Given 02/14/2023 10:09 AM EDT 8 mg fosaprepitant 150 mg in NaCl 0.9% 250 mL (EMEND) 150 mg, INTRAVENOUS, Administer over 30 Minutes, ONCE, 1 dose, On Sun02/14/23 at 1000, Approximate Total Volume = 280 mL Mix in non-DEHP bag - Refrigerate New Bag/Syringe/Bottl e 02/14/2023 10:23 AM EDT 150 mg ondansetron (PF) 8 mg injection (ZOFRAN) 8 mg, INTRAVENOUS, ONCE, 1 dose, On Sun02/14/23 at 1000 Given 02/14/2023 10:09 AM EDT 8 mg pegfilgrastim 6 mg wearable injection (NEULASTA ONPRO) 6 mg, SUBCUTANEOUS, ONCE, 1 dose, On Sun02/14/23 at 1000, Refrigerate Given 02/14/2023 11:35 AM EDT 6 mg Abdominal Tissue Inactive Administered Medications - up to 3 most recent administrations Medication Order MAR Action Action Date Dose Rate Site iron sucrose 200 mg in NaCl 0.9% 100ml (VENOFER) 200 mg, INTRAVENOUS, at 400 mL/hr, Administer over 15 Minutes, ONCE, 1 dose, On Sun02/22/23 at 1530, Please conduct a 30 minute post dose observation. New Bag/Syringe/Abdon le 02/22/2023 3:37 PM EDT 200 mg 400 mL/hr leuprolide 3.75 mg injection (LUPRON DEPOT) 3.75 mg, INTRAMUSCULAR, ONCE, 1 dose, On Sun02/22/23 at 1530, Hazardous Chemotherapy Drug: Use appropriate PPE. Given 02/22/2023 4:06 PM EDT 3.75 mg Buttocks, Left Inactive Administered Medications - up to 3 most recent administrations Medication Order MAR Action Action Date Dose Rate Site iron sucrose 200 mg in NaCl 0.9% 100ml (VENOFER) 200 mg, INTRAVENOUS, at 400 mL/hr, Administer over 15 Minutes, ONCE, 1 dose, On Sun02/26/23 at 1600, Please conduct a 30 minute post dose observation. New Bag/Syringe/Bottle 02/26/2023 3:59 PM EDT 200 mg 400 mL/hr Inactive Administered Medications - up to 3 most recent administrations Medication Order MAR Action Action Date Dose Rate Site iron sucrose 200 mg in NaCl 0.9% 100ml (VENOFER) 200 mg, INTRAVENOUS, at 400 mL/hr, Administer over 15 Minutes, ONCE, 1 dose, On Sun02/28/23 at 1530, Please conduct a 30 minute post dose observation. New Bag/Syringe/Bottle 02/28/2023 3:20 PM EDT 200 mg 400 mL/hr Inactive Administered Medications - up to 3 most recent administrations Medication Order MAR Action Action Date Dose Rate Site iron sucrose 200 mg in NaCl 0.9% 100ml (VENOFER) 200 mg, INTRAVENOUS, at 400 mL/hr, Administer over 15 Minutes, ONCE, 1 dose, On Sun03/02/23 at 1600, Please conduct a 30 minute post dose observation. New Bag/Syringe/Bottle 03/02/2023 3:43 PM EDT 200 mg 400 mL/hr Inactive Administered Medications - up to 3 most recent administrations Medication Order MAR Action Action Date Dose Rate Site leuprolide 3.75 mg injection (LUPRON DEPOT) 3.75 mg, INTRAMUSCULAR, ONCE, 1 dose, On Sun03/20/23 at 1500, Hazardous Chemotherapy Drug: Use appropriate PPE. Given 03/20/2023 2:52 PM EDT 3.75 mg Buttocks, Right Inactive Administered Medications - up to 3 most recent administrations Medication Order MAR Action Action Date Dose Rate Site leuprolide 3.75 mg injection (LUPRON DEPOT) 3.75 mg, INTRAMUSCULAR, ONCE, 1 dose, On Sun04/16/23 at 1630, Hazardous Chemotherapy Drug: Use appropriate PPE. Given 04/16/2023 4:48 PM EDT 3.75 mg Buttocks, Left Inactive Administered Medications - up to 3 most recent administrations Medication Order MAR Action Action Date Dose Rate Site leuprolide 3.75 mg injection (LUPRON DEPOT) 3.75 mg, INTRAMUSCULAR, ONCE, 1 dose, On Sun06/12/23 at 1500, Hazardous Chemotherapy Drug: Use appropriate PPE. Given 06/12/2023 3:08 PM EST 3.75 mg Buttocks, Left Health Concerns Infection Onset Date Last Indicated Resolved Time COVID-19 Rule-Out 06/26/2022 06/26/2022 Infection Onset Date Last Indicated Resolved Time COVID-19 Rule-Out 06/26/2022 06/26/2022 06/27/2022 5:43 AM EST Additional Source Comments INFORMATION SOURCE (unrecogn ized section and content) DATE CREATED AUTHOR 12/27/2017 [facility] ([place]) DATE CREATED AUTHOR AUTHOR'S ORGANIZ ATION 03/18/2021 [employer] DATE CREATED AUTHOR AUTHOR'S ORGANIZ ATION 11/06/2021 [facility] DATE CREATED AUTHOR AUTHOR'S ORGANIZ ATION 11/18/2021 [facility] DATE CREATED AUTHOR AUTHOR'S ORGANIZ ATION 11/14/2023 [facility] DATE CREATED AUTHOR AUTHOR'S ORGANIZ ATION 12/24/2023 [facility] DATE CREATED AUTHOR AUTHOR'S ORGANIZ ATION 01/23/2024 [facility] DATE CREATED AUTHOR AUTHOR'S ORGANIZ ATION 01/23/2024 [facility] DATE CREATED AUTHOR AUTHOR'S ORGANIZ ATION 09/03/2024 [facility] DATE CREATED AUTHOR AUTHOR'S ORGANIZ ATION 05/16/2025 [facility] Source Comments (unrecognize d section and content) In the event this informatio n is protected by the Federal Confidentiality of Alcohol and Drug Abuse Patient Records regulations: The Federal rules restrict any use of the information to criminally investigate or prosecute any alcohol or drug abuse patient.[facility] CenterIn the event this information is protected by the Federal Confidentiality of Alcohol and Drug Abuse Patient Records regulations: The Federal rules restrict any use of the information to criminally investigate or prosecute any alcohol or drug abuse patient.[facility] CenterIn the event this information is protected by the Federal Confidentiality of Alcohol and Drug Abuse Patient Records regulations: The Federal rules restrict any use of the information to criminally investigate or prosecute any alcohol or drug abuse patient.[facility] CenterIn the event this information is protected by the Federal Confidentiality of Alcohol and Drug Abuse Patient Records regulations: The Federal rules restrict any use of the information to criminally investigate or prosecute any alcohol or drug abuse patient.[facility] CenterIn the event this information is protected by the Federal Confidentiality of Alcohol and Drug Abuse Patient Records regulations: The Federal rules restrict any use of the information to criminally investigate or prosecute any alcohol or drug abuse patient.[facility] CenterIn the event this information is protected by the Federal Confidentiality of Alcohol and Drug Abuse Patient Records regulations: The Federal rules restrict any use of the information to criminally investigate or prosecute any alcohol or drug abuse patient.[facility] CenterIn the event this information is protected by the Federal Confidentiality of Alcohol and Drug Abuse Patient Records regulations: The Federal rules restrict any use of the information to criminally investigate or prosecute any alcohol or drug abuse patient.[facility] CenterIn the event this information is protected by the Federal Confidentiality of Alcohol and Drug Abuse Patient Records regulations: The Federal rules restrict any use of the information to criminally investigate or prosecute any alcohol or drug abuse patient.[facility] CenterIn the event this information is protected by the Federal Confidentiality of Alcohol and Drug Abuse Patient Records regulations: The Federal rules restrict any use of the information to criminally investigate or prosecute any alcohol or drug abuse patient.[facility] CenterIn the event this information is protected by the Federal Confidentiality of Alcohol and Drug Abuse Patient Records regulations: The Federal rules restrict any use of the information to criminally investigate or prosecute any alcohol or drug abuse patient.[facility] CenterIn the event this information is protected by the Federal Confidentiality of Alcohol and Drug Abuse Patient Records regulations: The Federal rules restrict any use of the information to criminally investigate or prosecute any alcohol or drug abuse patient.[facility] CenterIn the event this information is protected by the Federal Confidentiality of Alcohol and Drug Abuse Patient Records regulations: The Federal rules restrict any use of the information to criminally investigate or prosecute any alcohol or drug abuse patient.[facility] the event this information is protected by the Federal Confidentiality of Alcohol and Drug Abuse Patient Records regulations: The Federal rules restrict any use of the information to criminally investigate or prosecute any alcohol or drug abuse patient.[facility] CenterIn the event this information is protected by the Federal Confidentiality of Alcohol and Drug Abuse Patient Records regulations: The Federal rules restrict any use of the information to criminally investigate or prosecute any alcohol or drug abuse patient.[facility] CenterIn the event this information is protected by the Federal Confidentiality of Alcohol and Drug Abuse Patient Records regulations: The Federal rules restrict any use of the information to criminally investigate or prosecute any alcohol or drug abuse patient.[facility] the event this information is protected by the Federal Confidentiality of Alcohol and Drug Abuse Patient Records regulations: The Federal rules restrict any use of the information to criminally investigate or prosecute any alcohol or drug abuse patient.[facility] CenterIn the event this information is protected by the Federal Confidentiality of Alcohol and Drug Abuse Patient Records regulations: The Federal rules restrict any use of the information to criminally investigate or prosecute any alcohol or drug abuse patient.[facility] CenterIn the event this information is protected by the Federal Confidentiality of Alcohol and Drug Abuse Patient Records regulations: The Federal rules restrict any use of the information to criminally investigate or prosecute any alcohol or drug abuse patient.[facility] CenterIn the event this information is protected by the Federal Confidentiality of Alcohol and Drug Abuse Patient Records regulations: The Federal rules restrict any use of the information to criminally investigate or prosecute any alcohol or drug abuse patient.[facility] CenterIn the event this information is protected by the Federal Confidentiality of Alcohol and Drug Abuse Patient Records regulations: The Federal rules restrict any use of the information to criminally investigate or prosecute any alcohol or drug abuse patient.[facility] CenterIn the event this information is protected by the Federal Confidentiality of Alcohol and Drug Abuse Patient Records regulations: The Federal rules restrict any use of the information to criminally investigate or prosecute any alcohol or drug abuse patient.[facility] CenterIn the event this information is protected by the Federal Confidentiality of Alcohol and Drug Abuse Patient Records regulations: The Federal rules restrict any use of the information to criminally investigate or prosecute any alcohol or drug abuse patient.[facility] CenterIn the event this information is protected by the Federal Confidentiality of Alcohol and Drug Abuse Patient Records regulations: The Federal rules restrict any use of the information to criminally investigate or prosecute any alcohol or drug abuse patient.[facility] CenterIn the event this information is protected by the Federal Confidentiality of Alcohol and Drug Abuse Patient Records regulations: The Federal rules restrict any use of the information to criminally investigate or prosecute any alcohol or drug abuse patient.[facility] CenterIn the event this information is protected by the Federal Confidentiality of Alcohol and Drug Abuse Patient Records regulations: The Federal rules restrict any use of the information to criminally investigate or prosecute any alcohol or drug abuse patient.[facility] CenterIn the event this information is protected by the Federal Confidentiality of Alcohol and Drug Abuse Patient Records regulations: The Federal rules restrict any use of the information to criminally investigate or prosecute any alcohol or drug abuse patient.[facility] CenterIn the event this information is protected by the Federal Confidentiality of Alcohol and Drug Abuse Patient Records regulations: The Federal rules restrict any use of the information to criminally investigate or prosecute any alcohol or drug abuse patient.[facility] CenterIn the event this information is protected by the Federal Confidentiality of Alcohol and Drug Abuse Patient Records regulations: The Federal rules restrict any use of the information to criminally investigate or prosecute any alcohol or drug abuse patient.[facility] CenterIn the event this information is protected by the Federal Confidentiality of Alcohol and Drug Abuse Patient Records regulations: The Federal rules restrict any use of the information to criminally investigate or prosecute any alcohol or drug abuse patient.[facility] CenterIn the event this information is protected by the Federal Confidentiality of Alcohol and Drug Abuse Patient Records regulations: The Federal rules restrict any use of the information to criminally investigate or prosecute any alcohol or drug abuse patient.[facility] CenterIn the event this information is protected by the Federal Confidentiality of Alcohol and Drug Abuse Patient Records regulations: The Federal rules restrict any use of the information to criminally investigate or prosecute any alcohol or drug abuse patient.[facility] CenterIn the event this information is protected by the Federal Confidentiality of Alcohol and Drug Abuse Patient Records regulations: The Federal rules restrict any use of the information to criminally investigate or prosecute any alcohol or drug abuse patient.[facility] CenterIn the event this information is protected by the Federal Confidentiality of Alcohol and Drug Abuse Patient Records regulations: The Federal rules restrict any use of the information to criminally investigate or prosecute any alcohol or drug abuse patient.[facility] CenterIn the event this information is protected by the Federal Confidentiality of Alcohol and Drug Abuse Patient Records regulations: The Federal rules restrict any use of the information to criminally investigate or prosecute any alcohol or drug abuse patient.[facility] CenterIn the event this information is protected by the Federal Confidentiality of Alcohol and Drug Abuse Patient Records regulations: The Federal rules restrict any use of the information to criminally investigate or prosecute any alcohol or drug abuse patient.[facility] CenterIn the event this information is protected by the Federal Confidentiality of Alcohol and Drug Abuse Patient Records regulations: The Federal rules restrict any use of the information to criminally investigate or prosecute any alcohol or drug abuse patient.[facility] CenterIn the event this information is protected by the Federal Confidentiality of Alcohol and Drug Abuse Patient Records regulations: The Federal rules restrict any use of the information to criminally investigate or prosecute any alcohol or drug abuse patient.[facility] CenterIn the event this information is protected by the Federal Confidentiality of Alcohol and Drug Abuse Patient Records regulations: The Federal rules restrict any use of the information to criminally investigate or prosecute any alcohol or drug abuse patient.[facility] CenterIn the event this information is protected by the Federal Confidentiality of Alcohol and Drug Abuse Patient Records regulations: The Federal rules restrict any use of the information to criminally investigate or prosecute any alcohol or drug abuse patient.[facility] CenterIn the event this information is protected by the Federal Confidentiality of Alcohol and Drug Abuse Patient Records regulations: The Federal rules restrict any use of the information to criminally investigate or prosecute any alcohol or drug abuse patient.[facility] CenterIn the event this information is protected by the Federal Confidentiality of Alcohol and Drug Abuse Patient Records regulations: The Federal rules restrict any use of the information to criminally investigate or prosecute any alcohol or drug abuse patient.[facility] CenterIn the event this information is protected by the Federal Confidentiality of Alcohol and Drug Abuse Patient Records regulations: The Federal rules restrict any use of the information to criminally investigate or prosecute any alcohol or drug abuse patient.[facility] CenterIn the event this information is protected by the Federal Confidentiality of Alcohol and Drug Abuse Patient Records regulations: The Federal rules restrict any use of the information to criminally investigate or prosecute any alcohol or drug abuse patient.[facility] CenterIn the event this information is protected by the Federal Confidentiality of Alcohol and Drug Abuse Patient Records regulations: The Federal rules restrict any use of the information to criminally investigate or prosecute any alcohol or drug abuse patient.[facility] CenterIn the event this information is protected by the Federal Confidentiality of Alcohol and Drug Abuse Patient Records regulations: The Federal rules restrict any use of the information to criminally investigate or prosecute any alcohol or drug abuse patient.[facility] CenterIn the event this information is protected by the Federal Confidentiality of Alcohol and Drug Abuse Patient Records regulations: The Federal rules restrict any use of the information to criminally investigate or prosecute any alcohol or drug abuse patient.[facility] CenterIn the event this information is protected by the Federal Confidentiality of Alcohol and Drug Abuse Patient Records regulations: The Federal rules restrict any use of the information to criminally investigate or prosecute any alcohol or drug abuse patient.[facility] CenterIn the event this information is protected by the Federal Confidentiality of Alcohol and Drug Abuse Patient Records regulations: The Federal rules restrict any use of the information to criminally investigate or prosecute any alcohol or drug abuse patient.[facility] CenterIn the event this information is protected by the Federal Confidentiality of Alcohol and Drug Abuse Patient Records regulations: The Federal rules restrict any use of the information to criminally investigate or prosecute any alcohol or drug abuse patient.[facility] CenterIn the event this information is protected by the Federal Confidentiality of Alcohol and Drug Abuse Patient Records regulations: The Federal rules restrict any use of the information to criminally investigate or prosecute any alcohol or drug abuse patient.[facility] CenterIn the event this information is protected by the Federal Confidentiality of Alcohol and Drug Abuse Patient Records regulations: The Federal rules restrict any use of the information to criminally investigate or prosecute any alcohol or drug abuse patient.[facility] CenterIn the event this information is protected by the Federal Confidentiality of Alcohol and Drug Abuse Patient Records regulations: The Federal rules restrict any use of the information to criminally investigate or prosecute any alcohol or drug abuse patient.[facility] CenterIn the event this information is protected by the Federal Confidentiality of Alcohol and Drug Abuse Patient Records regulations: The Federal rules restrict any use of the information to criminally investigate or prosecute any alcohol or drug abuse patient.[facility] CenterIn the event this information is protected by the Federal Confidentiality of Alcohol and Drug Abuse Patient Records regulations: The Federal rules restrict any use of the information to criminally investigate or prosecute any alcohol or drug abuse patient.[facility] CenterIn the event this information is protected by the Federal Confidentiality of Alcohol and Drug Abuse Patient Records regulations: The Federal rules restrict any use of the information to criminally investigate or prosecute any alcohol or drug abuse patient.[facility] CenterIn the event this information is protected by the Federal Confidentiality of Alcohol and Drug Abuse Patient Records regulations: The Federal rules restrict any use of the information to criminally investigate or prosecute any alcohol or drug abuse patient.[facility] CenterIn the event this information is protected by the Federal Confidentiality of Alcohol and Drug Abuse Patient Records regulations: The Federal rules restrict any use of the information to criminally investigate or prosecute any alcohol or drug abuse patient.[facility] CenterIn the event this information is protected by the Federal Confidentiality of Alcohol and Drug Abuse Patient Records regulations: The Federal rules restrict any use of the information to criminally investigate or prosecute any alcohol or drug abuse patient.[facility] CenterIn the event this information is protected by the Federal Confidentiality of Alcohol and Drug Abuse Patient Records regulations: The Federal rules restrict any use of the information to criminally investigate or prosecute any alcohol or drug abuse patient.[facility] CenterIn the event this information is protected by the Federal Confidentiality of Alcohol and Drug Abuse Patient Records regulations: The Federal rules restrict any use of the information to criminally investigate or prosecute any alcohol or drug abuse patient.[facility] CenterIn the event this information is protected by the Federal Confidentiality of Alcohol and Drug Abuse Patient Records regulations: The Federal rules restrict any use of the information to criminally investigate or prosecute any alcohol or drug abuse patient.[facility] CenterIn the event this information is protected by the Federal Confidentiality of Alcohol and Drug Abuse Patient Records regulations: The Federal rules restrict any use of the information to criminally investigate or prosecute any alcohol or drug abuse patient.[facility] the event this information is protected by the Federal Confidentiality of Alcohol and Drug Abuse Patient Records regulations: The Federal rules restrict any use of the information to criminally investigate or prosecute any alcohol or drug abuse patient.[facility] CenterIn the event this information is protected by the Federal Confidentiality of Alcohol and Drug Abuse Patient Records regulations: The Federal rules restrict any use of the information to criminally investigate or prosecute any alcohol or drug abuse patient.[facility] CenterIn the event this information is protected by the Federal Confidentiality of Alcohol and Drug Abuse Patient Records regulations: The Federal rules restrict any use of the information to criminally investigate or prosecute any alcohol or drug abuse patient.[facility]In the event this information is protected by the Federal Confidentiality of Alcohol and Drug Abuse Patient Records regulations: The Federal rules restrict any use of the information to criminally investigate or prosecute any alcohol or drug abuse patient.[facility] CenterIn the event this information is protected by the Federal Confidentiality of Alcohol and Drug Abuse Patient Records regulations: The Federal rules restrict any use of the information to criminally investigate or prosecute any alcohol or drug abuse patient.[facility] CenterIn the event this information is protected by the Federal Confidentiality of Alcohol and Drug Abuse Patient Records regulations: The Federal rules restrict any use of the information to criminally investigate or prosecute any alcohol or drug abuse patient.[facility] CenterIn the event this information is protected by the Federal Confidentiality of Alcohol and Drug Abuse Patient Records regulations: The Federal rules restrict any use of the information to criminally investigate or prosecute any alcohol or drug abuse patient.[facility] CenterIn the event this information is protected by the Federal Confidentiality of Alcohol and Drug Abuse Patient Records regulations: The Federal rules restrict any use of the information to criminally investigate or prosecute any alcohol or drug abuse patient.[facility] CenterIn the event this information is protected by the Federal Confidentiality of Alcohol and Drug Abuse Patient Records regulations: The Federal rules restrict any use of the information to criminally investigate or prosecute any alcohol or drug abuse patient.[facility] CenterIn the event this information is protected by the Federal Confidentiality of Alcohol and Drug Abuse Patient Records regulations: The Federal rules restrict any use of the information to criminally investigate or prosecute any alcohol or drug abuse patient.[facility] CenterIn the event this information is protected by the Federal Confidentiality of Alcohol and Drug Abuse Patient Records regulations: The Federal rules restrict any use of the information to criminally investigate or prosecute any alcohol or drug abuse patient.[facility] CenterIn the event this information is protected by the Federal Confidentiality of Alcohol and Drug Abuse Patient Records regulations: The Federal rules restrict any use of the information to criminally investigate or prosecute any alcohol or drug abuse patient.[facility] CenterIn the event this information is protected by the Federal Confidentiality of Alcohol and Drug Abuse Patient Records regulations: The Federal rules restrict any use of the information to criminally investigate or prosecute any alcohol or drug abuse patient.[facility] CenterIn the event this information is protected by the Federal Confidentiality of Alcohol and Drug Abuse Patient Records regulations: The Federal rules restrict any use of the information to criminally investigate or prosecute any alcohol or drug abuse patient.[facility] CenterIn the event this information is protected by the Federal Confidentiality of Alcohol and Drug Abuse Patient Records regulations: The Federal rules restrict any use of the information to criminally investigate or prosecute any alcohol or drug abuse patient.[facility] CenterIn the event this information is protected by the Federal Confidentiality of Alcohol and Drug Abuse Patient Records regulations: The Federal rules restrict any use of the information to criminally investigate or prosecute any alcohol or drug abuse patient.[facility] CenterIn the event this information is protected by the Federal Confidentiality of Alcohol and Drug Abuse Patient Records regulations: The Federal rules restrict any use of the information to criminally investigate or prosecute any alcohol or drug abuse patient.[facility] CenterIn the event this information is protected by the Federal Confidentiality of Alcohol and Drug Abuse Patient Records regulations: The Federal rules restrict any use of the information to criminally investigate or prosecute any alcohol or drug abuse patient.[facility] CenterIn the event this information is protected by the Federal Confidentiality of Alcohol and Drug Abuse Patient Records regulations: The Federal rules restrict any use of the information to criminally investigate or prosecute any alcohol or drug abuse patient.[facility] CenterIn the event this information is protected by the Federal Confidentiality of Alcohol and Drug Abuse Patient Records regulations: The Federal rules restrict any use of the information to criminally investigate or prosecute any alcohol or drug abuse patient.[facility] CenterIn the event this information is protected by the Federal Confidentiality of Alcohol and Drug Abuse Patient Records regulations: The Federal rules restrict any use of the information to criminally investigate or prosecute any alcohol or drug abuse patient.[facility] CenterIn the event this information is protected by the Federal Confidentiality of Alcohol and Drug Abuse Patient Records regulations: The Federal rules restrict any use of the information to criminally investigate or prosecute any alcohol or drug abuse patient.[facility] CenterIn the event this information is protected by the Federal Confidentiality of Alcohol and Drug Abuse Patient Records regulations: The Federal rules restrict any use of the information to criminally investigate or prosecute any alcohol or drug abuse patient.[facility] CenterIn the event this information is protected by the Federal Confidentiality of Alcohol and Drug Abuse Patient Records regulations: The Federal rules restrict any use of the information to criminally investigate or prosecute any alcohol or drug abuse patient.[facility] CenterIn the event this information is protected by the Federal Confidentiality of Alcohol and Drug Abuse Patient Records regulations: The Federal rules restrict any use of the information to criminally investigate or prosecute any alcohol or drug abuse patient.[facility] CenterIn the event this information is protected by the Federal Confidentiality of Alcohol and Drug Abuse Patient Records regulations: The Federal rules restrict any use of the information to criminally investigate or prosecute any alcohol or drug abuse patient.[facility] CenterIn the event this information is protected by the Federal Confidentiality of Alcohol and Drug Abuse Patient Records regulations: The Federal rules restrict any use of the information to criminally investigate or prosecute any alcohol or drug abuse patient.[facility] CenterIn the event this information is protected by the Federal Confidentiality of Alcohol and Drug Abuse Patient Records regulations: The Federal rules restrict any use of the information to criminally investigate or prosecute any alcohol or drug abuse patient.[facility] CenterIn the event this information is protected by the Federal Confidentiality of Alcohol and Drug Abuse Patient Records regulations: The Federal rules restrict any use of the information to criminally investigate or prosecute any alcohol or drug abuse patient.[facility] CenterIn the event this information is protected by the Federal Confidentiality of Alcohol and Drug Abuse Patient Records regulations: The Federal rules restrict any use of the information to criminally investigate or prosecute any alcohol or drug abuse patient.[facility] CenterIn the event this information is protected by the Federal Confidentiality of Alcohol and Drug Abuse Patient Records regulations: The Federal rules restrict any use of the information to criminally investigate or prosecute any alcohol or drug abuse patient.[facility] CenterIn the event this information is protected by the Federal Confidentiality of Alcohol and Drug Abuse Patient Records regulations: The Federal rules restrict any use of the information to criminally investigate or prosecute any alcohol or drug abuse patient.[facility] CenterIn the event this information is protected by the Federal Confidentiality of Alcohol and Drug Abuse Patient Records regulations: The Federal rules restrict any use of the information to criminally investigate or prosecute any alcohol or drug abuse patient.[facility] CenterIn the event this information is protected by the Federal Confidentiality of Alcohol and Drug Abuse Patient Records regulations: The Federal rules restrict any use of the information to criminally investigate or prosecute any alcohol or drug abuse patient.[facility] CenterIn the event this information is protected by the Federal Confidentiality of Alcohol and Drug Abuse Patient Records regulations: The Federal rules restrict any use of the information to criminally investigate or prosecute any alcohol or drug abuse patient.[facility] CenterIn the event this information is protected by the Federal Confidentiality of Alcohol and Drug Abuse Patient Records regulations: The Federal rules restrict any use of the information to criminally investigate or prosecute any alcohol or drug abuse patient.[facility] CenterIn the event this information is protected by the Federal Confidentiality of Alcohol and Drug Abuse Patient Records regulations: The Federal rules restrict any use of the information to criminally investigate or prosecute any alcohol or drug abuse patient.[facility] CenterIn the event this information is protected by the Federal Confidentiality of Alcohol and Drug Abuse Patient Records regulations: The Federal rules restrict any use of the information to criminally investigate or prosecute any alcohol or drug abuse patient.[facility] CenterIn the event this information is protected by the Federal Confidentiality of Alcohol and Drug Abuse Patient Records regulations: The Federal rules restrict any use of the information to criminally investigate or prosecute any alcohol or drug abuse patient.[facility] CenterIn the event this information is protected by the Federal Confidentiality of Alcohol and Drug Abuse Patient Records regulations: The Federal rules restrict any use of the information to criminally investigate or prosecute any alcohol or drug abuse patient.[facility] CenterIn the event this information is protected by the Federal Confidentiality of Alcohol and Drug Abuse Patient Records regulations: The Federal rules restrict any use of the information to criminally investigate or prosecute any alcohol or drug abuse patient.[facility] CenterIn the event this information is protected by the Federal Confidentiality of Alcohol and Drug Abuse Patient Records regulations: The Federal rules restrict any use of the information to criminally investigate or prosecute any alcohol or drug abuse patient.[facility] CenterIn the event this information is protected by the Federal Confidentiality of Alcohol and Drug Abuse Patient Records regulations: The Federal rules restrict any use of the information to criminally investigate or prosecute any alcohol or drug abuse patient.[facility] CenterIn the event this information is protected by the Federal Confidentiality of Alcohol and Drug Abuse Patient Records regulations: The Federal rules restrict any use of the information to criminally investigate or prosecute any alcohol or drug abuse patient.[facility] CenterIn the event this information is protected by the Federal Confidentiality of Alcohol and Drug Abuse Patient Records regulations: The Federal rules restrict any use of the information to criminally investigate or prosecute any alcohol or drug abuse patient.[facility] CenterIn the event this information is protected by the Federal Confidentiality of Alcohol and Drug Abuse Patient Records regulations: The Federal rules restrict any use of the information to criminally investigate or prosecute any alcohol or drug abuse patient.[facility]In the event this information is protected by the Federal Confidentiality of Alcohol and Drug Abuse Patient Records regulations: The Federal rules restrict any use of the information to criminally investigate or prosecute any alcohol or drug abuse patient.[facility] CenterIn the event this information is protected by the Federal Confidentiality of Alcohol and Drug Abuse Patient Records regulations: The Federal rules restrict any use of the information to criminally investigate or prosecute any alcohol or drug abuse patient.[facility] CenterIn the event this information is protected by the Federal Confidentiality of Alcohol and Drug Abuse Patient Records regulations: The Federal rules restrict any use of the information to criminally investigate or prosecute any alcohol or drug abuse patient.[facility] CenterIn the event this information is protected by the Federal Confidentiality of Alcohol and Drug Abuse Patient Records regulations: The Federal rules restrict any use of the information to criminally investigate or prosecute any alcohol or drug abuse patient.[facility] the event this information is protected by the Federal Confidentiality of Alcohol and Drug Abuse Patient Records regulations: The Federal rules restrict any use of the information to criminally investigate or prosecute any alcohol or drug abuse patient.[facility] CenterIn the event this information is protected by the Federal Confidentiality of Alcohol and Drug Abuse Patient Records regulations: The Federal rules restrict any use of the information to criminally investigate or prosecute any alcohol or drug abuse patient.[facility] CenterIn the event this information is protected by the Federal Confidentiality of Alcohol and Drug Abuse Patient Records regulations: The Federal rules restrict any use of the information to criminally investigate or prosecute any alcohol or drug abuse patient.[facility]In the event this information is protected by the Federal Confidentiality of Alcohol and Drug Abuse Patient Records regulations: The Federal rules restrict any use of the information to criminally investigate or prosecute any alcohol or drug abuse patient.[facility] CenterIn the event this information is protected by the Federal Confidentiality of Alcohol and Drug Abuse Patient Records regulations: The Federal rules restrict any use of the information to criminally investigate or prosecute any alcohol or drug abuse patient.[facility] CenterIn the event this information is protected by the Federal Confidentiality of Alcohol and Drug Abuse Patient Records regulations: The Federal rules restrict any use of the information to criminally investigate or prosecute any alcohol or drug abuse patient.[facility]In the event this information is protected by the Federal Confidentiality of Alcohol and Drug Abuse Patient Records regulations: The Federal rules restrict any use of the information to criminally investigate or prosecute any alcohol or drug abuse patient.[facility]In the event this information is protected by the Federal Confidentiality of Alcohol and Drug Abuse Patient Records regulations: The Federal rules restrict any use of the information to criminally investigate or prosecute any alcohol or drug abuse patient.[facility] CenterIn the event this information is protected by the Federal Confidentiality of Alcohol and Drug Abuse Patient Records regulations: The Federal rules restrict any use of the information to criminally investigate or prosecute any alcohol or drug abuse patient.[facility]In the event this information is protected by the Federal Confidentiality of Alcohol and Drug Abuse Patient Records regulations: The Federal rules restrict any use of the information to criminally investigate or prosecute any alcohol or drug abuse patient.[facility]In the event this information is protected by the Federal Confidentiality of Alcohol and Drug Abuse Patient Records regulations: The Federal rules restrict any use of the information to criminally investigate or prosecute any alcohol or drug abuse patient.[facility] CenterIn the event this information is protected by the Federal Confidentiality of Alcohol and Drug Abuse Patient Records regulations: The Federal rules restrict any use of the information to criminally investigate or prosecute any alcohol or drug abuse patient.[facility] CenterIn the event this information is protected by the Federal Confidentiality of Alcohol and Drug Abuse Patient Records regulations: The Federal rules restrict any use of the information to criminally investigate or prosecute any alcohol or drug abuse patient.[facility] CenterIn the event this information is protected by the Federal Confidentiality of Alcohol and Drug Abuse Patient Records regulations: The Federal rules restrict any use of the information to criminally investigate or prosecute any alcohol or drug abuse patient.[facility] CenterIn the event this information is protected by the Federal Confidentiality of Alcohol and Drug Abuse Patient Records regulations: The Federal rules restrict any use of the information to criminally investigate or prosecute any alcohol or drug abuse patient.[facility] CenterIn the event this information is protected by the Federal Confidentiality of Alcohol and Drug Abuse Patient Records regulations: The Federal rules restrict any use of the information to criminally investigate or prosecute any alcohol or drug abuse patient.[facility] CenterIn the event this information is protected by the Federal Confidentiality of Alcohol and Drug Abuse Patient Records regulations: The Federal rules restrict any use of the information to criminally investigate or prosecute any alcohol or drug abuse patient.[facility] CenterIn the event this information is protected by the Federal Confidentiality of Alcohol and Drug Abuse Patient Records regulations: The Federal rules restrict any use of the information to criminally investigate or prosecute any alcohol or drug abuse patient.[facility] CenterIn the event this information is protected by the Federal Confidentiality of Alcohol and Drug Abuse Patient Records regulations: The Federal rules restrict any use of the information to criminally investigate or prosecute any alcohol or drug abuse patient.[facility] CenterIn the event this information is protected by the Federal Confidentiality of Alcohol and Drug Abuse Patient Records regulations: The Federal rules restrict any use of the information to criminally investigate or prosecute any alcohol or drug abuse patient.[facility] CenterIn the event this information is protected by the Federal Confidentiality of Alcohol and Drug Abuse Patient Records regulations: The Federal rules restrict any use of the information to criminally investigate or prosecute any alcohol or drug abuse patient.[facility] CenterIn the event this information is protected by the Federal Confidentiality of Alcohol and Drug Abuse Patient Records regulations: The Federal rules restrict any use of the information to criminally investigate or prosecute any alcohol or drug abuse patient.[facility] CenterIn the event this information is protected by the Federal Confidentiality of Alcohol and Drug Abuse Patient Records regulations: The Federal rules restrict any use of the information to criminally investigate or prosecute any alcohol or drug abuse patient.[facility] CenterIn the event this information is protected by the Federal Confidentiality of Alcohol and Drug Abuse Patient Records regulations: The Federal rules restrict any use of the information to criminally investigate or prosecute any alcohol or drug abuse patient.[facility] CenterIn the event this information is protected by the Federal Confidentiality of Alcohol and Drug Abuse Patient Records regulations: The Federal rules restrict any use of the information to criminally investigate or prosecute any alcohol or drug abuse patient.[facility] CenterIn the event this information is protected by the Federal Confidentiality of Alcohol and Drug Abuse Patient Records regulations: The Federal rules restrict any use of the information to criminally investigate or prosecute any alcohol or drug abuse patient.[facility] CenterIn the event this information is protected by the Federal Confidentiality of Alcohol and Drug Abuse Patient Records regulations: The Federal rules restrict any use of the information to criminally investigate or prosecute any alcohol or drug abuse patient.[facility] CenterIn the event this information is protected by the Federal Confidentiality of Alcohol and Drug Abuse Patient Records regulations: The Federal rules restrict any use of the information to criminally investigate or prosecute any alcohol or drug abuse patient.[facility] CenterIn the event this information is protected by the Federal Confidentiality of Alcohol and Drug Abuse Patient Records regulations: The Federal rules restrict any use of the information to criminally investigate or prosecute any alcohol or drug abuse patient.[facility] CenterIn the event this information is protected by the Federal Confidentiality of Alcohol and Drug Abuse Patient Records regulations: The Federal rules restrict any use of the information to criminally investigate or prosecute any alcohol or drug abuse patient.[facility] CenterIn the event this information is protected by the Federal Confidentiality of Alcohol and Drug Abuse Patient Records regulations: The Federal rules restrict any use of the information to criminally investigate or prosecute any alcohol or drug abuse patient.[facility] CenterIn the event this information is protected by the Federal Confidentiality of Alcohol and Drug Abuse Patient Records regulations: The Federal rules restrict any use of the information to criminally investigate or prosecute any alcohol or drug abuse patient.[facility] CenterIn the event this information is protected by the Federal Confidentiality of Alcohol and Drug Abuse Patient Records regulations: The Federal rules restrict any use of the information to criminally investigate or prosecute any alcohol or drug abuse patient.[facility] CenterIn the event this information is protected by the Federal Confidentiality of Alcohol and Drug Abuse Patient Records regulations: The Federal rules restrict any use of the information to criminally investigate or prosecute any alcohol or drug abuse patient.[facility] CenterIn the event this information is protected by the Federal Confidentiality of Alcohol and Drug Abuse Patient Records regulations: The Federal rules restrict any use of the information to criminally investigate or prosecute any alcohol or drug abuse patient.[facility] CenterIn the event this information is protected by the Federal Confidentiality of Alcohol and Drug Abuse Patient Records regulations: The Federal rules restrict any use of the information to criminally investigate or prosecute any alcohol or drug abuse patient.[facility] CenterIn the event this information is protected by the Federal Confidentiality of Alcohol and Drug Abuse Patient Records regulations: The Federal rules restrict any use of the information to criminally investigate or prosecute any alcohol or drug abuse patient.[facility] CenterIn the event this information is protected by the Federal Confidentiality of Alcohol and Drug Abuse Patient Records regulations: The Federal rules restrict any use of the information to criminally investigate or prosecute any alcohol or drug abuse patient.[facility] CenterIn the event this information is protected by the Federal Confidentiality of Alcohol and Drug Abuse Patient Records regulations: The Federal rules restrict any use of the information to criminally investigate or prosecute any alcohol or drug abuse patient.[facility] CenterIn the event this information is protected by the Federal Confidentiality of Alcohol and Drug Abuse Patient Records regulations: The Federal rules restrict any use of the information to criminally investigate or prosecute any alcohol or drug abuse patient.[facility] CenterIn the event this information is protected by the Federal Confidentiality of Alcohol and Drug Abuse Patient Records regulations: The Federal rules restrict any use of the information to criminally investigate or prosecute any alcohol or drug abuse patient.[facility] CenterIn the event this information is protected by the Federal Confidentiality of Alcohol and Drug Abuse Patient Records regulations: The Federal rules restrict any use of the information to criminally investigate or prosecute any alcohol or drug abuse patient.[facility] CenterIn the event this information is protected by the Federal Confidentiality of Alcohol and Drug Abuse Patient Records regulations: The Federal rules restrict any use of the information to criminally investigate or prosecute any alcohol or drug abuse patient.[facility] CenterIn the event this information is protected by the Federal Confidentiality of Alcohol and Drug Abuse Patient Records regulations: The Federal rules restrict any use of the information to criminally investigate or prosecute any alcohol or drug abuse patient.[facility] CenterIn the event this information is protected by the Federal Confidentiality of Alcohol and Drug Abuse Patient Records regulations: The Federal rules restrict any use of the information to criminally investigate or prosecute any alcohol or drug abuse patient.[facility] CenterIn the event this information is protected by the Federal Confidentiality of Alcohol and Drug Abuse Patient Records regulations: The Federal rules restrict any use of the information to criminally investigate or prosecute any alcohol or drug abuse patient.[facility] CenterIn the event this information is protected by the Federal Confidentiality of Alcohol and Drug Abuse Patient Records regulations: The Federal rules restrict any use of the information to criminally investigate or prosecute any alcohol or drug abuse patient.[facility] CenterIn the event this information is protected by the Federal Confidentiality of Alcohol and Drug Abuse Patient Records regulations: The Federal rules restrict any use of the information to criminally investigate or prosecute any alcohol or drug abuse patient.[facility] CenterIn the event this information is protected by the Federal Confidentiality of Alcohol and Drug Abuse Patient Records regulations: The Federal rules restrict any use of the information to criminally investigate or prosecute any alcohol or drug abuse patient.[facility] CenterIn the event this information is protected by the Federal Confidentiality of Alcohol and Drug Abuse Patient Records regulations: The Federal rules restrict any use of the information to criminally investigate or prosecute any alcohol or drug abuse patient.[facility] the event this information is protected by the Federal Confidentiality of Alcohol and Drug Abuse Patient Records regulations: The Federal rules restrict any use of the information to criminally investigate or prosecute any alcohol or drug abuse patient.[facility] CenterIn the event this information is protected by the Federal Confidentiality of Alcohol and Drug Abuse Patient Records regulations: The Federal rules restrict any use of the information to criminally investigate or prosecute any alcohol or drug abuse patient.[facility] CenterIn the event this information is protected by the Federal Confidentiality of Alcohol and Drug Abuse Patient Records regulations: The Federal rules restrict any use of the information to criminally investigate or prosecute any alcohol or drug abuse patient.[facility]In the event this information is protected by the Federal Confidentiality of Alcohol and Drug Abuse Patient Records regulations: The Federal rules restrict any use of the information to criminally investigate or prosecute any alcohol or drug abuse patient.[facility] CenterIn the event this information is protected by the Federal Confidentiality of Alcohol and Drug Abuse Patient Records regulations: The Federal rules restrict any use of the information to criminally investigate or prosecute any alcohol or drug abuse patient.[facility] CenterIn the event this information is protected by the Federal Confidentiality of Alcohol and Drug Abuse Patient Records regulations: The Federal rules restrict any use of the information to criminally investigate or prosecute any alcohol or drug abuse patient.[facility] CenterIn the event this information is protected by the Federal Confidentiality of Alcohol and Drug Abuse Patient Records regulations: The Federal rules restrict any use of the information to criminally investigate or prosecute any alcohol or drug abuse patient.[facility] CenterIn the event this information is protected by the Federal Confidentiality of Alcohol and Drug Abuse Patient Records regulations: The Federal rules restrict any use of the information to criminally investigate or prosecute any alcohol or drug abuse patient.[facility] CenterIn the event this information is protected by the Federal Confidentiality of Alcohol and Drug Abuse Patient Records regulations: The Federal rules restrict any use of the information to criminally investigate or prosecute any alcohol or drug abuse patient.[facility] CenterIn the event this information is protected by the Federal Confidentiality of Alcohol and Drug Abuse Patient Records regulations: The Federal rules restrict any use of the information to criminally investigate or prosecute any alcohol or drug abuse patient.[facility] CenterIn the event this information is protected by the Federal Confidentiality of Alcohol and Drug Abuse Patient Records regulations: The Federal rules restrict any use of the information to criminally investigate or prosecute any alcohol or drug abuse patient.[facility] CenterIn the event this information is protected by the Federal Confidentiality of Alcohol and Drug Abuse Patient Records regulations: The Federal rules restrict any use of the information to criminally investigate or prosecute any alcohol or drug abuse patient.[facility] CenterIn the event this information is protected by the Federal Confidentiality of Alcohol and Drug Abuse Patient Records regulations: The Federal rules restrict any use of the information to criminally investigate or prosecute any alcohol or drug abuse patient.[facility] CenterIn the event this information is protected by the Federal Confidentiality of Alcohol and Drug Abuse Patient Records regulations: The Federal rules restrict any use of the information to criminally investigate or prosecute any alcohol or drug abuse patient.[facility] CenterIn the event this information is protected by the Federal Confidentiality of Alcohol and Drug Abuse Patient Records regulations: The Federal rules restrict any use of the information to criminally investigate or prosecute any alcohol or drug abuse patient.[facility] CenterIn the event this information is protected by the Federal Confidentiality of Alcohol and Drug Abuse Patient Records regulations: The Federal rules restrict any use of the information to criminally investigate or prosecute any alcohol or drug abuse patient.[facility] CenterIn the event this information is protected by the Federal Confidentiality of Alcohol and Drug Abuse Patient Records regulations: The Federal rules restrict any use of the information to criminally investigate or prosecute any alcohol or drug abuse patient.[facility] CenterIn the event this information is protected by the Federal Confidentiality of Alcohol and Drug Abuse Patient Records regulations: The Federal rules restrict any use of the information to criminally investigate or prosecute any alcohol or drug abuse patient.[facility] CenterIn the event this information is protected by the Federal Confidentiality of Alcohol and Drug Abuse Patient Records regulations: The Federal rules restrict any use of the information to criminally investigate or prosecute any alcohol or drug abuse patient.[facility] CenterIn the event this information is protected by the Federal Confidentiality of Alcohol and Drug Abuse Patient Records regulations: The Federal rules restrict any use of the information to criminally investigate or prosecute any alcohol or drug abuse patient.[facility] CenterIn the event this information is protected by the Federal Confidentiality of Alcohol and Drug Abuse Patient Records regulations: The Federal rules restrict any use of the information to criminally investigate or prosecute any alcohol or drug abuse patient.[facility] CenterIn the event this information is protected by the Federal Confidentiality of Alcohol and Drug Abuse Patient Records regulations: The Federal rules restrict any use of the information to criminally investigate or prosecute any alcohol or drug abuse patient.[facility] CenterIn the event this information is protected by the Federal Confidentiality of Alcohol and Drug Abuse Patient Records regulations: The Federal rules restrict any use of the information to criminally investigate or prosecute any alcohol or drug abuse patient.[facility] CenterIn the event this information is protected by the Federal Confidentiality of Alcohol and Drug Abuse Patient Records regulations: The Federal rules restrict any use of the information to criminally investigate or prosecute any alcohol or drug abuse patient.[facility] CenterIn the event this information is protected by the Federal Confidentiality of Alcohol and Drug Abuse Patient Records regulations: The Federal rules restrict any use of the information to criminally investigate or prosecute any alcohol or drug abuse patient.[facility] CenterIn the event this information is protected by the Federal Confidentiality of Alcohol and Drug Abuse Patient Records regulations: The Federal rules restrict any use of the information to criminally investigate or prosecute any alcohol or drug abuse patient.[facility] CenterIn the event this information is protected by the Federal Confidentiality of Alcohol and Drug Abuse Patient Records regulations: The Federal rules restrict any use of the information to criminally investigate or prosecute any alcohol or drug abuse patient.[facility] CenterIn the event this information is protected by the Federal Confidentiality of Alcohol and Drug Abuse Patient Records regulations: The Federal rules restrict any use of the information to criminally investigate or prosecute any alcohol or drug abuse patient.[facility] CenterIn the event this information is protected by the Federal Confidentiality of Alcohol and Drug Abuse Patient Records regulations: The Federal rules restrict any use of the information to criminally investigate or prosecute any alcohol or drug abuse patient.[facility] CenterIn the event this information is protected by the Federal Confidentiality of Alcohol and Drug Abuse Patient Records regulations: The Federal rules restrict any use of the information to criminally investigate or prosecute any alcohol or drug abuse patient.[facility] CenterIn the event this information is protected by the Federal Confidentiality of Alcohol and Drug Abuse Patient Records regulations: The Federal rules restrict any use of the information to criminally investigate or prosecute any alcohol or drug abuse patient.[facility] CenterIn the event this information is protected by the Federal Confidentiality of Alcohol and Drug Abuse Patient Records regulations: The Federal rules restrict any use of the information to criminally investigate or prosecute any alcohol or drug abuse patient.[facility] CenterIn the event this information is protected by the Federal Confidentiality of Alcohol and Drug Abuse Patient Records regulations: The Federal rules restrict any use of the information to criminally investigate or prosecute any alcohol or drug abuse patient.[facility] CenterIn the event this information is protected by the Federal Confidentiality of Alcohol and Drug Abuse Patient Records regulations: The Federal rules restrict any use of the information to criminally investigate or prosecute any alcohol or drug abuse patient.[facility] CenterIn the event this information is protected by the Federal Confidentiality of Alcohol and Drug Abuse Patient Records regulations: The Federal rules restrict any use of the information to criminally investigate or prosecute any alcohol or drug abuse patient.[facility] CenterIn the event this information is protected by the Federal Confidentiality of Alcohol and Drug Abuse Patient Records regulations: The Federal rules restrict any use of the information to criminally investigate or prosecute any alcohol or drug abuse patient.[facility] CenterIn the event this information is protected by the Federal Confidentiality of Alcohol and Drug Abuse Patient Records regulations: The Federal rules restrict any use of the information to criminally investigate or prosecute any alcohol or drug abuse patient.[facility] CenterIn the event this information is protected by the Federal Confidentiality of Alcohol and Drug Abuse Patient Records regulations: The Federal rules restrict any use of the information to criminally investigate or prosecute any alcohol or drug abuse patient.[facility] CenterIn the event this information is protected by the Federal Confidentiality of Alcohol and Drug Abuse Patient Records regulations: The Federal rules restrict any use of the information to criminally investigate or prosecute any alcohol or drug abuse patient.[facility] CenterIn the event this information is protected by the Federal Confidentiality of Alcohol and Drug Abuse Patient Records regulations: The Federal rules restrict any use of the information to criminally investigate or prosecute any alcohol or drug abuse patient.[facility] CenterIn the event this information is protected by the Federal Confidentiality of Alcohol and Drug Abuse Patient Records regulations: The Federal rules restrict any use of the information to criminally investigate or prosecute any alcohol or drug abuse patient.[facility] CenterIn the event this information is protected by the Federal Confidentiality of Alcohol and Drug Abuse Patient Records regulations: The Federal rules restrict any use of the information to criminally investigate or prosecute any alcohol or drug abuse patient.[facility] CenterIn the event this information is protected by the Federal Confidentiality of Alcohol and Drug Abuse Patient Records regulations: The Federal rules restrict any use of the information to criminally investigate or prosecute any alcohol or drug abuse patient.[facility] CenterIn the event this information is protected by the Federal Confidentiality of Alcohol and Drug Abuse Patient Records regulations: The Federal rules restrict any use of the information to criminally investigate or prosecute any alcohol or drug abuse patient.[facility] CenterIn the event this information is protected by the Federal Confidentiality of Alcohol and Drug Abuse Patient Records regulations: The Federal rules restrict any use of the information to criminally investigate or prosecute any alcohol or drug abuse patient.[facility] CenterIn the event this information is protected by the Federal Confidentiality of Alcohol and Drug Abuse Patient Records regulations: The Federal rules restrict any use of the information to criminally investigate or prosecute any alcohol or drug abuse patient.[facility] CenterIn the event this information is protected by the Federal Confidentiality of Alcohol and Drug Abuse Patient Records regulations: The Federal rules restrict any use of the information to criminally investigate or prosecute any alcohol or drug abuse patient.[facility] CenterIn the event this information is protected by the Federal Confidentiality of Alcohol and Drug Abuse Patient Records regulations: The Federal rules restrict any use of the information to criminally investigate or prosecute any alcohol or drug abuse patient.[facility] CenterIn the event this information is protected by the Federal Confidentiality of Alcohol and Drug Abuse Patient Records regulations: The Federal rules restrict any use of the information to criminally investigate or prosecute any alcohol or drug abuse patient.[facility] CenterIn the event this information is protected by the Federal Confidentiality of Alcohol and Drug Abuse Patient Records regulations: The Federal rules restrict any use of the information to criminally investigate or prosecute any alcohol or drug abuse patient.[facility] the event this information is protected by the Federal Confidentiality of Alcohol and Drug Abuse Patient Records regulations: The Federal rules restrict any use of the information to criminally investigate or prosecute any alcohol or drug abuse patient.[facility] CenterIn the event this information is protected by the Federal Confidentiality of Alcohol and Drug Abuse Patient Records regulations: The Federal rules restrict any use of the information to criminally investigate or prosecute any alcohol or drug abuse patient.[facility] CenterIn the event this information is protected by the Federal Confidentiality of Alcohol and Drug Abuse Patient Records regulations: The Federal rules restrict any use of the information to criminally investigate or prosecute any alcohol or drug abuse patient.[facility] the event this information is protected by the Federal Confidentiality of Alcohol and Drug Abuse Patient Records regulations: The Federal rules restrict any use of the information to criminally investigate or prosecute any alcohol or drug abuse patient.[facility] CenterIn the event this information is protected by the Federal Confidentiality of Alcohol and Drug Abuse Patient Records regulations: The Federal rules restrict any use of the information to criminally investigate or prosecute any alcohol or drug abuse patient.[facility] CenterIn the event this information is protected by the Federal Confidentiality of Alcohol and Drug Abuse Patient Records regulations: The Federal rules restrict any use of the information to criminally investigate or prosecute any alcohol or drug abuse patient.[facility] CenterIn the event this information is protected by the Federal Confidentiality of Alcohol and Drug Abuse Patient Records regulations: The Federal rules restrict any use of the information to criminally investigate or prosecute any alcohol or drug abuse patient.[facility] CenterIn the event this information is protected by the Federal Confidentiality of Alcohol and Drug Abuse Patient Records regulations: The Federal rules restrict any use of the information to criminally investigate or prosecute any alcohol or drug abuse patient.[facility] CenterIn the event this information is protected by the Federal Confidentiality of Alcohol and Drug Abuse Patient Records regulations: The Federal rules restrict any use of the information to criminally investigate or prosecute any alcohol or drug abuse patient.[facility] CenterIn the event this information is protected by the Federal Confidentiality of Alcohol and Drug Abuse Patient Records regulations: The Federal rules restrict any use of the information to criminally investigate or prosecute any alcohol or drug abuse patient.[facility] CenterIn the event this information is protected by the Federal Confidentiality of Alcohol and Drug Abuse Patient Records regulations: The Federal rules restrict any use of the information to criminally investigate or prosecute any alcohol or drug abuse patient.[facility] CenterIn the event this information is protected by the Federal Confidentiality of Alcohol and Drug Abuse Patient Records regulations: The Federal rules restrict any use of the information to criminally investigate or prosecute any alcohol or drug abuse patient.[facility] CenterIn the event this information is protected by the Federal Confidentiality of Alcohol and Drug Abuse Patient Records regulations: The Federal rules restrict any use of the information to criminally investigate or prosecute any alcohol or drug abuse patient.[facility] CenterIn the event this information is protected by the Federal Confidentiality of Alcohol and Drug Abuse Patient Records regulations: The Federal rules restrict any use of the information to criminally investigate or prosecute any alcohol or drug abuse patient.[facility] CenterIn the event this information is protected by the Federal Confidentiality of Alcohol and Drug Abuse Patient Records regulations: The Federal rules restrict any use of the information to criminally investigate or prosecute any alcohol or drug abuse patient.[facility] CenterIn the event this information is protected by the Federal Confidentiality of Alcohol and Drug Abuse Patient Records regulations: The Federal rules restrict any use of the information to criminally investigate or prosecute any alcohol or drug abuse patient.[facility] CenterIn the event this information is protected by the Federal Confidentiality of Alcohol and Drug Abuse Patient Records regulations: The Federal rules restrict any use of the information to criminally investigate or prosecute any alcohol or drug abuse patient.[facility] CenterIn the event this information is protected by the Federal Confidentiality of Alcohol and Drug Abuse Patient Records regulations: The Federal rules restrict any use of the information to criminally investigate or prosecute any alcohol or drug abuse patient.[facility] CenterIn the event this information is protected by the Federal Confidentiality of Alcohol and Drug Abuse Patient Records regulations: The Federal rules restrict any use of the information to criminally investigate or prosecute any alcohol or drug abuse patient.[facility] CenterIn the event this information is protected by the Federal Confidentiality of Alcohol and Drug Abuse Patient Records regulations: The Federal rules restrict any use of the information to criminally investigate or prosecute any alcohol or drug abuse patient.[facility] CenterIn the event this information is protected by the Federal Confidentiality of Alcohol and Drug Abuse Patient Records regulations: The Federal rules restrict any use of the information to criminally investigate or prosecute any alcohol or drug abuse patient.[facility] CenterIn the event this information is protected by the Federal Confidentiality of Alcohol and Drug Abuse Patient Records regulations: The Federal rules restrict any use of the information to criminally investigate or prosecute any alcohol or drug abuse patient.[facility] CenterIn the event this information is protected by the Federal Confidentiality of Alcohol and Drug Abuse Patient Records regulations: The Federal rules restrict any use of the information to criminally investigate or prosecute any alcohol or drug abuse patient.[facility] CenterIn the event this information is protected by the Federal Confidentiality of Alcohol and Drug Abuse Patient Records regulations: The Federal rules restrict any use of the information to criminally investigate or prosecute any alcohol or drug abuse patient.[facility] CenterIn the event this information is protected by the Federal Confidentiality of Alcohol and Drug Abuse Patient Records regulations: The Federal rules restrict any use of the information to criminally investigate or prosecute any alcohol or drug abuse patient.[facility] CenterIn the event this information is protected by the Federal Confidentiality of Alcohol and Drug Abuse Patient Records regulations: The Federal rules restrict any use of the information to criminally investigate or prosecute any alcohol or drug abuse patient.[facility] CenterIn the event this information is protected by the Federal Confidentiality of Alcohol and Drug Abuse Patient Records regulations: The Federal rules restrict any use of the information to criminally investigate or prosecute any alcohol or drug abuse patient.[facility] CenterIn the event this information is protected by the Federal Confidentiality of Alcohol and Drug Abuse Patient Records regulations: The Federal rules restrict any use of the information to criminally investigate or prosecute any alcohol or drug abuse patient.[facility] CenterIn the event this information is protected by the Federal Confidentiality of Alcohol and Drug Abuse Patient Records regulations: The Federal rules restrict any use of the information to criminally investigate or prosecute any alcohol or drug abuse patient.[facility] CenterIn the event this information is protected by the Federal Confidentiality of Alcohol and Drug Abuse Patient Records regulations: The Federal rules restrict any use of the information to criminally investigate or prosecute any alcohol or drug abuse patient.[facility] CenterIn the event this information is protected by the Federal Confidentiality of Alcohol and Drug Abuse Patient Records regulations: The Federal rules restrict any use of the information to criminally investigate or prosecute any alcohol or drug abuse patient.[facility] CenterIn the event this information is protected by the Federal Confidentiality of Alcohol and Drug Abuse Patient Records regulations: The Federal rules restrict any use of the information to criminally investigate or prosecute any alcohol or drug abuse patient.[facility] CenterIn the event this information is protected by the Federal Confidentiality of Alcohol and Drug Abuse Patient Records regulations: The Federal rules restrict any use of the information to criminally investigate or prosecute any alcohol or drug abuse patient.[facility] CenterIn the event this information is protected by the Federal Confidentiality of Alcohol and Drug Abuse Patient Records regulations: The Federal rules restrict any use of the information to criminally investigate or prosecute any alcohol or drug abuse patient.[facility] CenterIn the event this information is protected by the Federal Confidentiality of Alcohol and Drug Abuse Patient Records regulations: The Federal rules restrict any use of the information to criminally investigate or prosecute any alcohol or drug abuse patient.[facility] CenterIn the event this information is protected by the Federal Confidentiality of Alcohol and Drug Abuse Patient Records regulations: The Federal rules restrict any use of the information to criminally investigate or prosecute any alcohol or drug abuse patient.[facility] CenterIn the event this information is protected by the Federal Confidentiality of Alcohol and Drug Abuse Patient Records regulations: The Federal rules restrict any use of the information to criminally investigate or prosecute any alcohol or drug abuse patient.[facility] CenterIn the event this information is protected by the Federal Confidentiality of Alcohol and Drug Abuse Patient Records regulations: The Federal rules restrict any use of the information to criminally investigate or prosecute any alcohol or drug abuse patient.[facility] CenterIn the event this information is protected by the Federal Confidentiality of Alcohol and Drug Abuse Patient Records regulations: The Federal rules restrict any use of the information to criminally investigate or prosecute any alcohol or drug abuse patient.[facility] CenterIn the event this information is protected by the Federal Confidentiality of Alcohol and Drug Abuse Patient Records regulations: The Federal rules restrict any use of the information to criminally investigate or prosecute any alcohol or drug abuse patient.[facility] CenterIn the event this information is protected by the Federal Confidentiality of Alcohol and Drug Abuse Patient Records regulations: The Federal rules restrict any use of the information to criminally investigate or prosecute any alcohol or drug abuse patient.[facility] CenterIn the event this information is protected by the Federal Confidentiality of Alcohol and Drug Abuse Patient Records regulations: The Federal rules restrict any use of the information to criminally investigate or prosecute any alcohol or drug abuse patient.[facility] CenterIn the event this information is protected by the Federal Confidentiality of Alcohol and Drug Abuse Patient Records regulations: The Federal rules restrict any use of the information to criminally investigate or prosecute any alcohol or drug abuse patient.[facility] CenterIn the event this information is protected by the Federal Confidentiality of Alcohol and Drug Abuse Patient Records regulations: The Federal rules restrict any use of the information to criminally investigate or prosecute any alcohol or drug abuse patient.[facility] CenterIn the event this information is protected by the Federal Confidentiality of Alcohol and Drug Abuse Patient Records regulations: The Federal rules restrict any use of the information to criminally investigate or prosecute any alcohol or drug abuse patient.[facility] CenterIn the event this information is protected by the Federal Confidentiality of Alcohol and Drug Abuse Patient Records regulations: The Federal rules restrict any use of the information to criminally investigate or prosecute any alcohol or drug abuse patient.[facility] CenterIn the event this information is protected by the Federal Confidentiality of Alcohol and Drug Abuse Patient Records regulations: The Federal rules restrict any use of the information to criminally investigate or prosecute any alcohol or drug abuse patient.[facility] CenterIn the event this information is protected by the Federal Confidentiality of Alcohol and Drug Abuse Patient Records regulations: The Federal rules restrict any use of the information to criminally investigate or prosecute any alcohol or drug abuse patient.[facility] CenterIn the event this information is protected by the Federal Confidentiality of Alcohol and Drug Abuse Patient Records regulations: The Federal rules restrict any use of the information to criminally investigate or prosecute any alcohol or drug abuse patient.[facility] CenterIn the event this information is protected by the Federal Confidentiality of Alcohol and Drug Abuse Patient Records regulations: The Federal rules restrict any use of the information to criminally investigate or prosecute any alcohol or drug abuse patient.[facility] the event this information is protected by the Federal Confidentiality of Alcohol and Drug Abuse Patient Records regulations: The Federal rules restrict any use of the information to criminally investigate or prosecute any alcohol or drug abuse patient.[facility] CenterIn the event this information is protected by the Federal Confidentiality of Alcohol and Drug Abuse Patient Records regulations: The Federal rules restrict any use of the information to criminally investigate or prosecute any alcohol or drug abuse patient.[facility] CenterIn the event this information is protected by the Federal Confidentiality of Alcohol and Drug Abuse Patient Records regulations: The Federal rules restrict any use of the information to criminally investigate or prosecute any alcohol or drug abuse patient.[facility]In the event this information is protected by the Federal Confidentiality of Alcohol and Drug Abuse Patient Records regulations: The Federal rules restrict any use of the information to criminally investigate or prosecute any alcohol or drug abuse patient.[facility] CenterIn the event this information is protected by the Federal Confidentiality of Alcohol and Drug Abuse Patient Records regulations: The Federal rules restrict any use of the information to criminally investigate or prosecute any alcohol or drug abuse patient.[facility] CenterIn the event this information is protected by the Federal Confidentiality of Alcohol and Drug Abuse Patient Records regulations: The Federal rules restrict any use of the information to criminally investigate or prosecute any alcohol or drug abuse patient.[facility] CenterIn the event this information is protected by the Federal Confidentiality of Alcohol and Drug Abuse Patient Records regulations: The Federal rules restrict any use of the information to criminally investigate or prosecute any alcohol or drug abuse patient.[facility] CenterIn the event this information is protected by the Federal Confidentiality of Alcohol and Drug Abuse Patient Records regulations: The Federal rules restrict any use of the information to criminally investigate or prosecute any alcohol or drug abuse patient.[facility] CenterIn the event this information is protected by the Federal Confidentiality of Alcohol and Drug Abuse Patient Records regulations: The Federal rules restrict any use of the information to criminally investigate or prosecute any alcohol or drug abuse patient.[facility] CenterIn the event this information is protected by the Federal Confidentiality of Alcohol and Drug Abuse Patient Records regulations: The Federal rules restrict any use of the information to criminally investigate or prosecute any alcohol or drug abuse patient.[facility] Reason for Visit (unrecogniz ed section and content) Reason Comments Radiology CT Specialty Diagnoses / Procedures Referred By Contac t Referred To Contact CT IMAGING Diagnoses Malignant neoplasm of upper-outer quadrant of left breast in female, 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) Crohn's disease with complication, unspecified gastrointestinal tract location (HCC) Thrombocytopenia (HCC) Elevated alkaline phosphatase level Procedures CT ABD/PEL W IVCON CT ABD & PELVIS W/CONTRAST Chantal Ayers, DO [address] [place] [address] [place] [address] Referral ID Status Reason Start Date Expiration Date V isits Requested Visits Authorized [id number] Closed Auto-Generate d Referral 03/21/2023 05/04/2023 1 1 Reason Comments Established Patient Specialty Diagnoses / Procedures Referred By [facility] Referred To Contact Diagnoses Malignant neoplasm of upper-outer quadrant of left breast in female, estrogen receptor positive (HCC) Procedures LEUPROLIDE ACETATE SUSPNSION LEUPROLIDE ACETATE /3.75 MG Chantal Ayers, DO [address] [place] [address] [facility] [address] [place] [address] Referral ID Status Reason Start Date Expiration Date V isits Requested Visits Authorized [id number] Authorized 11/11/2021 07/08/2023 99 99 Reason Comments Imm/Inj Specialty Diagnoses / Procedures Referred By [facility] Referred To Contact Diagnoses Malignant neoplasm of upper-outer quadrant of left breast in female, 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) Procedures INJ ONTRUZANT 10 MG INJECTION, PERTUZUMAB, 1 MG INJECTION, PEGFILGRASTIM, EXCLUDES BIOSIMILAR, 0.5 MG INJ PEGFILGRASTIM-BMEZ 0.5MG Chantal Ayers, DO [address] [place] [address] [facility] [address] [place] [address] Referral ID Status Reason Start Date Expiration Date V isits Requested Visits Authorized [id number] Authorized 10/25/2021 04/25/2022 6 6 Reason Comments Non-Chemotherapy Treatment Specialty Diagnoses / Procedures Referred By [facility] Referred To Contact Diagnoses Malignant neoplasm of upper-outer quadrant of left breast in female, estrogen receptor positive (HCC) Procedures LEUPROLIDE ACETATE SUSPNSION Chantal Ayers, DO [address] [place] [address] [facility] [address] [place] [address] Referral ID Status Reason Start Date Expiration Date V isits Requested Visits Authorized [id number] Authorized 11/11/2021 07/08/2022 99 99 Reason Comments Appointment Reason Comments [employer] L[employer] - Other Specialty Diagnoses / Procedures Referred By Contac t Referred To Contact Lab Diagnoses Malignant neoplasm of left breast in female, estrogen receptor positive, unspecified site of breast Family history of breast cancer Procedures Genetic Sendout: CancerNext Panel with RNA testing and [place] [address] Referral ID Status Reason Start Date Expiration Date V isits Requested Visits Authorized [id number] Open Specialty Services Required 10/18/2021 10/18/2022 1 1 Reason Comments Breast Mass Reason Comments New Patient Reason Comments [employer] - Other Introduction Reason Comments New Patient left breast cancer Reason Comments Patient Question Reason Comments Radiology MRI Specialty Diagnoses / Procedures Referred By Stacy t Referred To Contact MR IMAGING Diagnoses Breast disorder Procedures MRI CLIP PLACEMENT BREAST LEFT PERQ BREAST LOC DEVICE PLACEMT 1ST LESIO MR Jasmyn Dominique MD [address] [place] [address] Mr Imaging Referral ID Status Reason Start Date Expiration Date V isits Requested Visits Authorized [id number] Closed Auto-Generate d Referral 10/28/2021 07/08/2022 1 1 Reason Comments Radiology Invasive Breast Procedure Specialty Diagnoses / Procedures [facility] Diagnoses Breast disorder Procedures US BIOPSY BREAST LT BX BREAST W/DEVICE 1ST LESION ULTRASOUND Jasmyn Dominique MD [address] [place] [address] [facility] [address] [place] [address] Referral ID Status Reason Start Date Expiration Date V isits Requested Visits Authorized [id number] Closed Auto-Generate d Referral 10/25/2021 11/24/2022 1 1 Reason Comments fertility preservation Reason Comments [employer] L[employer] - Other Chemo education Reason Comments Results Reason Comments Infertility Reason Comments New Patient Reason Comments IVF cycle set-up Reason Comments Blood Draw (CVAD) Reason Comments Sarah Returning your call Reason Comments duplicate see notes in Nurse v isit Reason Comments Radiology MRI Specialty Diagnoses / Procedures [facility] To Contact MR IM[facility]ING Diagnoses Malignant neoplasm of upper-outer quadrant of left breast in female, estrogen receptor positive (HCC) Procedures MRI BREAST BX WO/W IVCON LT BX BREAST W/DEVICE 1ST LESION MAGNETIC RES GUID MRI BREAST BX WO/[place] [address] [place] [id number] Mr Imaging Referral ID Status Reason Start Date Expiration Date V isits Requested Visits Authorized [id number] Closed Auto-Generate d Referral 11/08/2021 07/08/2022 1 1 Reason Comments Opened In Error Reason Comments fertility preservation Reason Comments Follow Up Lupron injections Reason Comments Patient Request Reason Comments [employer] Librarian - Other Medication/Sche dule Reason Comments Patient Update Reason Comments Benefits Investigation Reason Comments Refill Request Reason Comments Chemotherapy Treatment Specialty Diagnoses / Procedures Referred By [facility] Referred To Contact Diagnoses Malignant neoplasm of upper-outer quadrant of left breast in female, 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) Procedures INJ ONTRUZANT 10 MG INJECTION, PERTUZUMAB, 1 MG INJECTION, PEGFILGRASTIM, EXCLUDES BIOSIMILAR, 0.5 MG Chantal Ayers, DO [address] [place] [address] [facility] [address] [place] [address] Referral ID Status Reason Start Date Expiration Date V isits Requested Visits Authorized [id number] Authorized 10/25/2021 05/01/2022 1 1 Reason Comments Returning Patient's Call weak, had momen t that was near passing out Reason Comments Interlibrary Loan Services Librarian - Other C1D1 Post Treat ment Call Reason Comments Interlibrary Loan Services Librarian - Other Symptom Update Reason Comments Interlibrary Loan Services Librarian - Other Nutrition Consu lt Referral ID Status Reason Start Date Expiration Date V isits Requested Visits Authorized [id number] Authorized 11/11/2021 02/09/2022 1 1 Specialty Diagnoses / Procedures Referred By Contac t Referred To Contact Radiation Oncology Diagnoses Malignant neoplasm of upper-outer quadrant of left breast in female, estrogen receptor positive (HCC) Procedures RAD/ONC CONSULT OFFICE/OUTPATIENT NEW HIGH MDM 60-[place] [address] [place] [id number] Referral ID Status Reason Start Date Expiration Date V isits Requested Visits Authorized [id number] Closed PCP Requested Referral 10/21/2021 10/21/2022 1 1 Reason Comments Nutrition Assessment Reason Comments Medication Question Specialty Diagnoses / Procedures Referred By Contac t Referred To Contact Diagnoses Malignant neoplasm of upper-outer quadrant of left breast in female, 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) Procedures INJ ONTRUZANT 10 MG INJECTION, PERTUZUMAB, 1 MG INJECTION, PEGFILGRASTIM, EXCLUDES BIOSIMILAR, 0.5 MG Chantal Aeyrs, DO [address] [place] [address] [facility] [address] [place] [address] Referral ID Status Reason Start Date Expiration Date V isits Requested Visits Authorized [id number] Authorized 10/25/2021 05/01/2022 6 6 Reason Comments Appointment Cancelled Referral ID Status Reason Start Date Expiration Date V isits Requested Visits Authorized [id number] Pending Review 10/25/2021 05/01/2022 6 6 Reason Comments Orders Reason Comments Patient Question Diarrhea Referral ID Status Reason Start Date Expiration Date V isits Requested Visits Authorized [id number] Waiting for Response 10/25/2021 05/01/2022 6 6 Reason Comments Consult Internal hemorrhoid vs. Anal fissure Specialty Diagnoses / Procedures [facility] To Contact MR IMAGING Diagnoses Malignant neoplasm of overlapping sites of left breast in female, estrogen receptor positive (HCC) Procedures MRI BREAST WO/W IVCON BILAT MRI BREAST WITHOUT&WITH CONTRAST W/[place] [address] [place] [address] Mr Imaging Referral ID Status Reason Start Date Expiration Date V isits Requested Visits Authorized [id number] Closed Auto-Generate d Referral 02/21/2022 05/22/2022 1 1 Reason Comments Established Patient Regroup Reason Comments Follow Up Anal fissure Reason Comments Consult Reason Comments Patient Education LEFT mastectomy with SN bx and recon Reason Comments Established Patient Reason Comments Interlibrary Loan Services Librarian - Other Appointment tod ay Reason Comments Interlibrary Loan Services Librarian - Other Switching treat ment Reason Comments Follow Up EKG Reason Comments Post Op Reason Comments Post Op Reason Comments First Time Treatment Education [place] Reason Comments Interlibrary Loan Services Librarian - Other Antiemetic Reason Comments Post Op Bilat Breast Recon, possible drain removal Reason Comments Recheck Reason Comments Follow Up Clinical trial eligi bility Reason Comments Results CBC results--improvi ng ANC and Hgb Reason Comments PT Eval Patient Education Specialty Diagnoses / Procedures Referred By Stacy vernon Referred To Contact [facility] Diagnoses Malignant neoplasm of left female breast, unspecified estrogen receptor status, unspecified site of breast (HCC) Procedures CONSULT TO BREAST REHAB PROGRAM THERAPEUTIC EXERCISES RE, EA 15 MIN. THERAPEUT ACTVITY DIRECT PT CONTACT EACH 15 MIN Krissy Spivey APRN.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 [address] [place] [address] [facility] [place] [address] [place] [address] Referral ID Status Reason Start Date Expiration Date V isits Requested Visits Authorized [id number] Closed PCP Requested Referral Auto-Generated Referral 04/27/2022 04/27/2023 1 1 Reason Comments Consent CAREVIVE Reason Comments Patient Update Opened In Error Specialty Diagnoses / Procedures Referred By Stacy vernon Referred To Contact Diagnoses Malignant neoplasm of upper-outer quadrant of left breast in female, 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) Procedures INJECTION, ADO-TRASTUZUMAB EMTANSINE, 1 MG Chantal Ayers, DO [address] [place] [address] [facility] [address] [place] [address] Referral ID Status Reason Start Date Expiration Date V isits Requested Visits Authorized [id number] Authorized 04/25/2022 10/24/2022 9 9 Reason Comments Carevive Alert Management Reason Comments Physical Therapy Specialty Diagnoses / Procedures [facility]erred To Contact Physical Therapy / PHYSICAL THERAPY Diagnoses Malignant neoplasm of left female breast, unspecified estrogen receptor status, unspecified site of breast (HCC) [C50.912] Procedures EST RS BREAST REHAB Amber Miles PA-C [address] [place] [id number] Kandy Santamaria PT Referral ID Status Reason Start Date Expiration Date V isits Requested Visits Authorized [id number] Authorized 07/09/2021 07/08/2022 99 99 Reason Comments CAREVIVE alert Reason Comments Sore Throat fever x last night n ausea and vomiting x today Reason Comments Patient Update Sore throat, chills Reason Comments Med Change Request Reason Comments CareVive Alert Reason Comments Results Low iron Specialty Diagnoses / Procedures [facility] Referred To Contact Diagnoses Malignant neoplasm of upper-outer quadrant of left breast in female, 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) Procedures INJECTION, ADO-TRASTUZUMAB EMTANSINE, 1 MG FOSAPREPITANT INJECTION INJECTION, PEGFILGRASTIM, EXCLUDES BIOSIMILAR, 0.5 MG Chantal Ayers, DO [address] [place] [address] [facility] [address] [place] [address] Referral ID Status Reason Start Date Expiration Date V isits Requested Visits Authorized [id number] Authorized 04/25/2022 10/24/2022 8 8 Reason Comments Chemotherapy Treatment Reason Comments CAREVIVE Alert Reason Comments Follow Up Reason Comments Results Low potassium Reason Comments Question Reason Comments Surrgoate Questions Reason Comments answerquestions about surrogacy has ppat on 12-05-22. Referral ID Status Reason Start Date Expiration Date V isits Requested Visits Authorized [id number] Authorized 04/25/2022 12/02/2022 9 9 Referral ID Status Reason Start Date Expiration Date V isits Requested Visits Authorized [id number] Authorized 04/25/2022 07/08/2023 99 99 Reason Comments plan for surrogate plans to jimmie a famil y member as surrogate, needs financial clearance as part of process for cycle Reason Comments Establish Care Reason Comments Patient Update discuss if doingMyri ad screens, not done at time of IVF cycle Specialty Diagnoses / Procedures [facility] Referred To Contact Diagnoses Malignant neoplasm of upper-outer quadrant of left breast in female, estrogen receptor positive (HCC) Procedures LEUPROLIDE ACETATE SUSPNSION LEUPROLIDE ACETATE /3.75 MG Chantal Ayers, DO [address] [place] [address] [facility] [address] [place] [address] Reason Comments Results Bone scan negative Specialty Diagnoses / Procedures [facility] Referred To Contact Diagnoses Iron 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 dietary iron intake Iron malabsorption Procedures IRON SUCROSE INJECTION PER 1 MG Chantal Ayers, DO [address] [place] [address] [facility] [address] [place] [address] Referral ID Status Reason Start Date Expiration Date V isits Requested Visits Authorized [id number] Pending Review 02/13/2023 07/08/2023 1 1 Referral ID Status Reason Start Date Expiration Date V isits Requested Visits Authorized [id number] Authorized 02/13/2023 07/08/2023 99 99 Specialty Diagnoses / Procedures [facility] Referred To Contact Diagnoses Malignant neoplasm of upper-outer quadrant of left breast in female, 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) Procedures INJECTION, ADO-TRASTUZUMAB EMTANSINE, 1 MG FOSAPREPITANT INJECTION INJECTION, PEGFILGRASTIM, EXCLUDES BIOSIMILAR, 0.5 MG INJECTION, FULPHILA Chantal Ayers, DO [address] [place] [address] [facility] [address] [place] [address] Referral ID Status Reason Start Date Expiration Date V isits Requested Visits Authorized [id number] Authorized 04/25/2022 07/08/2023 14 14 Referral ID Status Reason Start Date Expiration Date V isits Requested Visits Authorized [id number] Authorized 11/11/2021 09/02/2023 22 22 Reason Comments Port Flush Reason Comments Results Low platelets Reason Comments AVS 04/16 Reason Comments Patient Update plan for surrogate F ET Reason Comments plann for viromeds screens IP Reason Comments Patient Update date for FET with rudolph rrogate Reason Onset Date Comments Refill Request 05/07/2023 Reason Comments Radiology NM Specialty Diagnoses / Procedures Referred By Contac t Referred To Contact MOLECULAR & FUNCTIONAL IMAGING Diagnoses Malignant neoplasm of upper-outer quadrant of left breast in female, estrogen receptor positive (HCC) Elevated alkaline phosphatase level Procedures NM BONE WHOLE BODY BONE &/JOINT IMAGING WHOLE BODY Chantal Ayers, DO [address] [facility] [place] [address] Molecular & Functional Imaging [address] [place] [address] Referral ID Status Reason Start Date Expiration Date V isits Requested Visits Authorized [id number] Closed Auto-Generate d Referral 01/30/2023 02/29/2024 1 1 Reason Comments Radiology US Specialty Diagnoses / Procedures Referred By Contac t Referred To Contact US IMAGING Diagnoses Elevated serum alkaline phosphatase level Procedures US ABD RIGHT UPPER QUADRANT US ABDOMINAL REAL TIME W/IMAGE LIMITED Chantal Ayers, DO [address] [place] [address] [place] [address] Referral ID Status Reason Start Date Expiration Date V isits Requested Visits Authorized [id number] Closed Auto-Generate d Referral 01/23/2023 02/22/2024 1 1 Reason Comments Results BHCG #2 in her surrogate after FET Referral ID Status Reason Start Date Expiration Date V isits Requested Visits Authorized [id number] Authorized 11/11/2021 04/09/2024 31 31 Reason Comments Follow-up Patient was referred back to us for elevated liver enzymes, pt reports was taking an encapsulated liver supplement. Patient stopped taking this a few weeks ago. HX of Crohns's disease no issues/ symptoms and not on any medication. Patient reports she has been doing really well. Specialty Diagnoses / Procedures Referred By Stacy t Referred To Contact Diagnoses Malignant neoplasm of upper-outer quadrant of left breast in female, estrogen receptor positive (HCC) (HCC) Procedures LEUPROLIDE ACETATE SUSPNSION LEUPROLIDE ACETATE /3.75 MG Chantal Ayers, DO [address] [place] [address] [facility] [address] [place] [address] Specialty Diagnoses / Procedures Referred By Stacy vernon Referred To Contact MR IMAGING Diagnoses 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, estrogen receptor positive (HCC) Procedures MRI BREAST WO/W IVCON BILATERAL MRI BREAST WITHOUT&WITH CONTRAST W/CAD BILATERAL Chantal Ayers, DO [address] [facility] [place] [address] [place] [address] Referral ID Status Reason Start Date Expiration Date V isits Requested Visits Authorized [id number] Closed Auto-Generate d Referral 07/23/2023 09/06/2023 1 1 Reason Comments Fever Bodyaches, stiffness , neck pain x1 days Referral ID Status Reason Start Date Expiration Date V isits Requested Visits Authorized [id number] Authorized 11/11/2021 04/09/2024 29 29 Reason Comments Follow-up Crohn's disease. Pt reports doing well. Reason Comments Consult Specialty Diagnoses / Procedures Referred By Contac t Referred To Contact Diagnoses History of breast cancer Procedures CONSULT TO HEMATOLOGY/ONCOLOGY OFFICE/OUTPATIENT [facility] [place] [address] [place] [address] [place] [id number] Referral ID Status Reason Start Date Expiration Date V isits Requested Visits Authorized [id number] Closed PCP Requested Referral 12/24/2023 03/23/2024 1 1 Reason Comments Well Woman Referral ID Status Reason Start Date Expiration Date V isits Requested Visits Authorized [id number] Authorized 11/11/2021 04/09/2024 37 37 Referral ID Status Reason Start Date Expiration Date V isits Requested Visits Authorized [id number] Authorized 11/11/2021 04/09/2025 45 45 Reason Comments Radiology Mammogram Left US Specialty Diagnoses / Procedures Referred By Stacy t Referred To Contact BR IMAGING Diagnoses Malignant neoplasm of overlapping sites of left breast in female, estrogen receptor positive (HCC) Procedures JOSE A DIAGNOSTIC LT DIAGNOSTIC MAMMOGRAPHY COMPUTER-[place] [address] [place] [address] [facility] [address] [place] [address] Referral ID Status Reason Start Date Expiration Date V isits Requested Visits Authorized [id number] Closed Auto-Generate d Referral 02/17/2022 03/19/2023 1 1 Reason Comments Sinus Problem sinus pressure, drai nage, cough, headache x 8 days Reason Onset Date Comments Refill Request 05/14/2024 Specialty Diagnoses / Procedures Referred By Stacy t Referred To Contact Diagnoses Crohn's disease of both small and large intestine without complications (Multi) Procedures VA COLONOSCOPY FLX DX W/COLLJ SPEC WHEN PFRMD VA COLONOSCOPY W/BIOPSY SINGLE/MULTIPLE VA COLSC FLX W/REMOVAL LESION BY HOT BX FORCEPS VA COLSC FLX W/RMVL OF TUMOR POLYP LESION SNARE 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 Reason Comments Well Woman Reason Comments Fertility Testing Specialty Diagnoses / Procedures Referred By Stacy t Referred To Contact [facility] Diagnoses Encounter for fertility testing Procedures SONOHYSTEROGRAPHY (SIS) US WHI SALINE INFUS SONOHYSTEROGRAPHY W/COLOR DOPPLER Jam Foley MD [address] [place] [address] Phone: tel: fax: [address] [address] Referral ID Status Reason Start Date Expiration Date V isits Requested Visits Authorized [id number] Closed Benefit Check 11/19/2024 11/19/2025 1 1 Reason Comments Hysteroscopy-1 Specialty Diagnoses / Procedures Referred By Contac t Referred To Contact [facility] Diagnoses Fertility testing Procedures OFFICE HYSTEROSCOPY HYSTEROSCOPY BX ENDOMETRIUM&/POLYPC W/WO D&C Jam Foley MD [address] [place] [address] Phone: tel: fax: [address] [address] Referral ID Status Reason Start Date Expiration Date V isits Requested Visits Authorized [id number] Closed Benefit Check 02/12/2025 08/11/2025 1 1 Care Teams (unrecognized sec tion and content) Forest Ranger Technician Relationship Specialty Start Date End Date Braden Torres DO PCP - General Internal Medicine 08/12/12 Forest Ranger Technician Relationship Specialty Start Date End Date Braden Torres DO PCP - General Internal Medicine 08/12/12 Forest Ranger Technician Relationship Specialty Start Date End Date Braden Torres DO PCP - General Internal Medicine 08/12/12 Forest Ranger Technician Relationship Specialty Start Date End Date No Primary Care, [place] [address] PCP - General Pediatrics 10/12/21 Provider, External [facility] [place] [address] 10/12/21 Valentina Hoff [facility] [address] [place], [place] [id number] Genetic Counselor Genetics 10/18/21 Forest Ranger Technician Relationship Specialty Start Date End Date Braden Torres DO PCP - General Internal Medicine 08/12/12 Forest Ranger Technician Relationship Specialty Start Date End Date Braden Torres, DO PCP - General Internal Medicine 08/12/12 Forest Ranger Technician Relationship Specialty Start Date End Date Braden Torres, DO PCP - General Internal Medicine 08/12/12 Forest Ranger Technician Relationship Specialty Start Date End Date Braden Torres, DO PCP - General Internal Medicine 08/12/12 Forest Ranger Technician Relationship Specialty Start Date End Date Braden Torres, DO PCP - General Internal Medicine 08/12/12 Forest Ranger Technician Relationship Specialty Start Date End Date Braden Torres, DO PCP - General Internal Medicine 08/12/12 Forest Ranger Technician Relationship Specialty Start Date End Date Braden Torres, DO PCP - General Internal Medicine 08/12/12 Forest Ranger Technician Relationship Specialty Start Date End Date Braden Torres, DO PCP - General Internal Medicine 08/12/12 Forest Ranger Technician Relationship Specialty Start Date End Date Braden Torres, DO PCP - General Internal Medicine 08/12/12 Forest Ranger Technician Relationship Specialty Start Date End Date Braden Torres, DO PCP - General Internal Medicine 08/12/12 Forest Ranger Technician Relationship Specialty Start Date End Date Braden Torres, DO PCP - General Internal Medicine 08/12/12 Forest Ranger Technician Relationship Specialty Start Date End Date Braden Torres, DO PCP - General Internal Medicine 08/12/12 Forest Ranger Technician Relationship Specialty Start Date End Date Braden Torres, DO PCP - General Internal Medicine 08/12/12 Praful Melgar MD, [address] [place] [address] Physician Radiation Oncology 10/31/21 Forest Ranger Technician Relationship Specialty Start Date End Date Braden Torres, DO PCP - General Internal Medicine 08/12/12 Praful Melgar MD, [address] [place] [address] Physician Radiation Oncology 10/31/21 Forest Ranger Technician Relationship Specialty Start Date End Date Braden Torres, DO PCP - General Internal Medicine 08/12/12 Praful Melgar MD, [address] [place] [address] Physician Radiation Oncology 10/31/21 Forest Ranger Technician Relationship Specialty Start Date End Date Braden Torres, DO PCP - General Internal Medicine 08/12/12 Praful Melgar MD, [address] [place] [address] Physician Radiation Oncology 10/31/21 Forest Ranger Technician Relationship Specialty Start Date End Date Braden Torres, DO PCP - General Internal Medicine 08/12/12 Praful Melgar MD, [address] [place] [address] Physician Radiation Oncology 10/31/21 Forest Ranger Technician Relationship Specialty Start Date End Date Braden Torres, DO PCP - General Internal Medicine 08/12/12 Praful Melgar MD, [address] [place] [address] Physician Radiation Oncology 10/31/21 Forest Ranger Technician Relationship Specialty Start Date End Date Braden Torres, DO PCP - General Internal Medicine 08/12/12 Praful Melgar MD, [address] [place] [address] Physician Radiation Oncology 10/31/21 Forest Ranger Technician Relationship Specialty Start Date End Date Braden Torres, DO PCP - General Internal Medicine 08/12/12 Praful Melgar MD, MD [address] [place] [address] Physician Radiation Oncology 10/31/21 Forest Ranger Technician Relationship Specialty Start Date End Date Braden Torres, DO PCP - General Internal Medicine 08/12/12 Praful Melgar MD, [address] [place] [address] Physician Radiation Oncology 10/31/21 Forest Ranger Technician Relationship Specialty Start Date End Date Braden Torres, DO PCP - General Internal Medicine 08/12/12 Praful Melgar MD, [address] [place] [address] Physician Radiation Oncology 10/31/21 Forest Ranger Technician Relationship Specialty Start Date End Date Braden Torres, PCP - General Internal Medicine 08/12/12 Praful Melgar MD, [address] [place] [address] Physician Radiation Oncology 10/31/21 Forest Ranger Technician Relationship Specialty Start Date End Date Braden Torres, DO PCP - General Internal Medicine 08/12/12 Praful Melgar MD, [address] [place] [address] Physician Radiation Oncology 10/31/21 Krissy Beckham RN Specialty Interlibrary Loan Services Librarian Oncology 11/08/21 Forest Ranger Technician Relationship Specialty Start Date End Date Braden Torres, PCP - General Internal Medicine 08/12/12 Praful Melgar MD, [address] [place] [address] Physician Radiation Oncology 10/31/21 Krissy Beckham RN Specialty Interlibrary Loan Services Librarian Oncology 11/08/21 Forest Ranger Technician Relationship Specialty Start Date End Date Braden Torres, DO PCP - General Internal Medicine 08/12/12 Praful Melgar MD, [address] [place] [address] Physician Radiation Oncology 10/31/21 Krissy Beckham RN Specialty Interlibrary Loan Services Librarian Oncology 11/08/21 Forest Ranger Technician Relationship Specialty Start Date End Date Braden Torres, PCP - General Internal Medicine 08/12/12 Praful Melgar MD, [address] [place] [address] Physician Radiation Oncology 10/31/21 Krissy Beckham RN Specialty Interlibrary Loan Services Librarian Oncology 11/08/21 Forest Ranger Technician Relationship Specialty Start Date End Date Braden Torres DO PCP - General Internal Medicine 08/12/12 Praful Melgar MD, [address] [place] [address] Physician Radiation Oncology 10/31/21 Krissy Beckham RN Specialty Interlibrary Loan Services Librarian Oncology 11/08/21 Forest Ranger Technician Relationship Specialty Start Date End Date Braden Torres DO PCP - General Internal Medicine 08/12/12 Praful Melgar MD, [address] [place] [address] Physician Radiation Oncology 10/31/21 Krissy Beckham RN Specialty Interlibrary Loan Services Librarian Oncology 11/08/21 Forest Ranger Technician Relationship Specialty Start Date End Date Braden Torres DO PCP - General Internal Medicine 08/12/12 Praful Melgar MD, [address] [place] [address] Physician Radiation Oncology 10/31/21 Krissy Beckham RN Specialty Interlibrary Loan Services Librarian Oncology 11/08/21 Forest Ranger Technician Relationship Specialty Start Date End Date Braden Torres DO PCP - General Internal Medicine 08/12/12 Praful Melgar MD, [address] [facility] [place] [address] Physician Radiation Oncology 10/31/21 Krissy Beckham RN Specialty Interlibrary Loan Services Librarian Oncology 11/08/21 Forest Ranger Technician Relationship Specialty Start Date End Date Braden Torres, PCP - General Internal Medicine 08/12/12 Praful Melgar MD, [address] [facility] [address] Physician Radiation Oncology 10/31/21 Krissy Beckham RN Specialty Interlibrary Loan Services Librarian Oncology 11/08/21 Forest Ranger Technician Relationship Specialty Start Date End Date Braden Torres, PCP - General Internal Medicine 08/12/12 Praful Melgar MD, [address] [place] [address] Physician Radiation Oncology 10/31/21 Krissy Beckham RN Specialty Interlibrary Loan Services Librarian Oncology 11/08/21 Forest Ranger Technician Relationship Specialty Start Date End Date Braden Torres DO PCP - General Internal Medicine 08/12/12 Forest Ranger Technician Relationship Specialty Start Date End Date Braden Torres DO PCP - General Internal Medicine 08/12/12 Praful Melgar MD, [address] [facility] [place] [address] Physician Radiation Oncology 10/31/21 Krissy Beckham RN Specialty Interlibrary Loan Services Librarian Oncology 11/08/21 Forest Ranger Technician Relationship Specialty Start Date End Date Braden Torres DO PCP - General Internal Medicine 08/12/12 Praful Melgar MD, [address] [place] [address] Physician Radiation Oncology 10/31/21 Krissy Beckham RN Specialty Interlibrary Loan Services Librarian Oncology 11/08/21 Forest Ranger Technician Relationship Specialty Start Date End Date Braden Torres DO PCP - General Internal Medicine 08/12/12 Praful Melgar MD, [address] [place] [address] Physician Radiation Oncology 10/31/21 Krissy Beckham RN Specialty Interlibrary Loan Services Librarian Oncology 11/08/21 Forest Ranger Technician Relationship Specialty Start Date End Date Braden Torres, PCP - General Internal Medicine 08/12/12 Praful Melgar MD, [address] [place] [address] Physician Radiation Oncology 10/31/21 Krissy Beckham RN Specialty Interlibrary Loan Services Librarian Oncology 11/08/21 Forest Ranger Technician Relationship Specialty Start Date End Date Braden Torres DO PCP - General Internal Medicine 08/12/12 Praful Melgar MD, [address] [place] [address] Physician Radiation Oncology 10/31/21 Krissy Beckham RN Specialty Interlibrary Loan Services Librarian Oncology 11/08/21 Forest Ranger Technician Relationship Specialty Start Date End Date Braden Torres DO PCP - General Internal Medicine 08/12/12 Praful Melgar MD, [address] [place] [address] Physician Radiation Oncology 10/31/21 Krissy Beckham RN Specialty Interlibrary Loan Services Librarian Oncology 11/08/21 Forest Ranger Technician Relationship Specialty Start Date End Date Braden Torres DO PCP - General Internal Medicine 08/12/12 Praful Melgar MD, [address] [place] [address] Physician Radiation Oncology 10/31/21 Krissy Beckham RN Specialty Interlibrary Loan Services Librarian Oncology 11/08/21 Forest Ranger Technician Relationship Specialty Start Date End Date Braden Torres DO PCP - General Internal Medicine 08/12/12 Praful Melgar MD, [address] [facility] [place] [address] Physician Radiation Oncology 10/31/21 Krissy Beckham RN Specialty Interlibrary Loan Services Librarian Oncology 11/08/21 Forest Ranger Technician Relationship Specialty Start Date End Date Braden Torres DO PCP - General Internal Medicine 08/12/12 Praful Melgar MD, [address] [place] [address] Physician Radiation Oncology 10/31/21 Krissy Beckham RN Specialty Interlibrary Loan Services Librarian Oncology 11/08/21 Forest Ranger Technician Relationship Specialty Start Date End Date Braden Torres DO PCP - General Internal Medicine 08/12/12 Praful Melgar MD, [address] [place] [address] Physician Radiation Oncology 10/31/21 Krissy Beckham RN Specialty Interlibrary Loan Services Librarian Oncology 11/08/21 Forest Ranger Technician Relationship Specialty Start Date End Date Braden Torres DO PCP - General Internal Medicine 08/12/12 Praful Melgar MD, [address] [facility] [place] [address] Physician Radiation Oncology 10/31/21 Krissy Beckham RN Specialty Interlibrary Loan Services Librarian Oncology 11/08/21 Forest Ranger Technician Relationship Specialty Start Date End Date Braden Torres, PCP - General Internal Medicine 08/12/12 Praful Melgar MD, [address] [place] [address] Physician Radiation Oncology 10/31/21 Krissy Beckham RN Specialty Interlibrary Loan Services Librarian Oncology 11/08/21 Forest Ranger Technician Relationship Specialty Start Date End Date Braden Torres, PCP - General Internal Medicine 08/12/12 Praful Melgar MD, [address] [place] [address] Physician Radiation Oncology 10/31/21 Krissy Beckham RN Specialty Interlibrary Loan Services Librarian Oncology 11/08/21 Forest Ranger Technician Relationship Specialty Start Date End Date Braden Torres, PCP - General Internal Medicine 08/12/12 Praful Melgar MD, [address] [place] [address] Physician Radiation Oncology 10/31/21 Krissy Beckham RN Specialty Interlibrary Loan Services Librarian Oncology 11/08/21 Forest Ranger Technician Relationship Specialty Start Date End Date Braden Torres DO PCP - General Internal Medicine 08/12/12 Praful Melgar MD, [address] [place] [address] Physician Radiation Oncology 10/31/21 Krissy Beckham RN Specialty Interlibrary Loan Services Librarian Oncology 11/08/21 Forest Ranger Technician Relationship Specialty Start Date End Date Braden Torres DO PCP - General Internal Medicine 08/12/12 Praful Melgar MD, [address] [place] [address] Physician Radiation Oncology 10/31/21 Krissy Beckham RN Specialty Interlibrary Loan Services Librarian Oncology 11/08/21 Forest Ranger Technician Relationship Specialty Start Date End Date Braden Torres DO PCP - General Internal Medicine 08/12/12 Praful Melgar MD, [address] [facility] [place] [address] Physician Radiation Oncology 10/31/21 Krissy Beckham RN Specialty Interlibrary Loan Services Librarian Oncology 11/08/21 Forest Ranger Technician Relationship Specialty Start Date End Date Braden Torres DO PCP - General Internal Medicine 08/12/12 Praful Melgar MD, [address] [facility] [place] [address] Physician Radiation Oncology 10/31/21 Krissy Beckham RN Specialty Interlibrary Loan Services Librarian Oncology 11/08/21 Forest Ranger Technician Relationship Specialty Start Date End Date Braden Torres DO PCP - General Internal Medicine 08/12/12 Praful eMlgar MD, [address] [facility] [place] [address] Physician Radiation Oncology 10/31/21 Krissy Beckham RN Specialty Interlibrary Loan Services Librarian Oncology 11/08/21 Forest Ranger Technician Relationship Specialty Start Date End Date Braden Torres DO PCP - General Internal Medicine 08/12/12 Praful Melgar MD, [address] [facility] [place] [address] Physician Radiation Oncology 10/31/21 Krissy Beckham RN Specialty Interlibrary Loan Services Librarian Oncology 11/08/21 Forest Ranger Technician Relationship Specialty Start Date End Date Braden Torres, PCP - General Internal Medicine 08/12/12 Praful Melgar MD, [address] [facility] [place] [address] Physician Radiation Oncology 10/31/21 Krissy Beckham RN Specialty Interlibrary Loan Services Librarian Oncology 11/08/21 Forest Ranger Technician Relationship Specialty Start Date End Date Braden Torres, PCP - General Internal Medicine 08/12/12 Praful Melgar MD, [address] [place] [address] Physician Radiation Oncology 10/31/21 Krissy Beckham RN Specialty Interlibrary Loan Services Librarian Oncology 11/08/21 Forest Ranger Technician Relationship Specialty Start Date End Date Braden Torres, PCP - General Internal Medicine 08/12/12 Praful Melgar MD, [address] [place] [address] Physician Radiation Oncology 10/31/21 Krissy Beckham RN Specialty Interlibrary Loan Services Librarian Oncology 11/08/21 Forest Ranger Technician Relationship Specialty Start Date End Date Braden Torres DO PCP - General Internal Medicine 08/12/12 Praful Melgar MD, [address] [place] [address] Physician Radiation Oncology 10/31/21 Krissy Beckham RN Specialty Interlibrary Loan Services Librarian Oncology 11/08/21 Forest Ranger Technician Relationship Specialty Start Date End Date Braden Torres DO PCP - General Internal Medicine 08/12/12 Praful Melgar MD, [address] [facility] [place] [address] Physician Radiation Oncology 10/31/21 Krissy Beckham RN Specialty Interlibrary Loan Services Librarian Oncology 11/08/21 Forest Ranger Technician Relationship Specialty Start Date End Date Melissa Braden Max, PCP - General Internal Medicine 08/12/12 Praful Melgar MD, [address] [facility] [place] [address] Physician Radiation Oncology 10/31/21 Krissy Beckham RN Specialty Interlibrary Loan Services Librarian Oncology 11/08/21 Forest Ranger Technician Relationship Specialty Start Date End Date MelissaBraden DO Max PCP - General Internal Medicine 08/12/12 Praful Melgar MD, [address] [facility] [place] [address] Physician Radiation Oncology 10/31/21 Krissy Beckham RN Specialty Interlibrary Loan Services Librarian Oncology 11/08/21 Forest Ranger Technician Relationship Specialty Start Date End Date MelissaJerrica huiBraden Max, PCP - General Internal Medicine 08/12/12 Praful Melgar MD, [address] [facility] [place] [address] Physician Radiation Oncology 10/31/21 Krissy Beckham RN Specialty Interlibrary Loan Services Librarian Oncology 11/08/21 Forest Ranger Technician Relationship Specialty Start Date End Date Braden Torres DO PCP - General Internal Medicine 08/12/12 Praful Melgar MD, [address] [facility] [place] [address] Physician Radiation Oncology 10/31/21 Krissy Beckham RN Specialty Interlibrary Loan Services Librarian Oncology 11/08/21 Forest Ranger Technician Relationship Specialty Start Date End Date Braden Torres DO PCP - General Internal Medicine 08/12/12 Praful Melgar MD, [address] [place] [address] Physician Radiation Oncology 10/31/21 Krissy Beckham RN Specialty Interlibrary Loan Services Librarian Oncology 11/08/21 Forest Ranger Technician Relationship Specialty Start Date End Date Braden Torres DO PCP - General Internal Medicine 08/12/12 Praful Melgar MD, [address] [facility] [place] [address] Physician Radiation Oncology 10/31/21 Krissy Beckham RN Specialty Interlibrary Loan Services Librarian Oncology 11/08/21 Forest Ranger Technician Relationship Specialty Start Date End Date Braden Torres DO PCP - General Internal Medicine 08/12/12 Praful Melgar MD, [address] [place] [address] Physician Radiation Oncology 10/31/21 Krissy Beckham RN Specialty Interlibrary Loan Services Librarian Oncology 11/08/21 Forest Ranger Technician Relationship Specialty Start Date End Date Braden Torres DO PCP - General Internal Medicine 08/12/12 Praful Melgar MD, [address] [place] [address] Physician Radiation Oncology 10/31/21 Krissy Beckham RN Specialty Interlibrary Loan Services Librarian Oncology 11/08/21 Forest Ranger Technician Relationship Specialty Start Date End Date Braden Torres DO PCP - General Internal Medicine 08/12/12 Praful Melgar MD, [address] [place] [address] Physician Radiation Oncology 10/31/21 Krissy Beckham RN Specialty Interlibrary Loan Services Librarian Oncology 11/08/21 Chantal Ayers, DO [address] [place] [address] Hematology/Oncology 05/24/22 Forest Ranger Technician Relationship Specialty Start Date End Date Braden Torres, DO PCP - General Internal Medicine 08/12/12 Praful Melgar MD, [address] [place] [address] Physician Radiation Oncology 10/31/21 Krissy Beckham RN Specialty Interlibrary Loan Services Librarian Oncology 11/08/21 Chantal Ayers, DO [address] [place] [address] Hematology/Oncology 05/24/22 Forest Ranger Technician Relationship Specialty Start Date End Date Braden Torres, DO PCP - General Internal Medicine 08/12/12 Praful Melgar MD, [address] [place] [address] Physician Radiation Oncology 10/31/21 Krissy Beckham RN Specialty Interlibrary Loan Services Librarian Oncology 11/08/21 Chantal Ayers, DO [address] [place] [address] Hematology/Oncology 05/24/22 Forest Ranger Technician Relationship Specialty Start Date End Date Braden Torres, PCP - General Internal Medicine 08/12/12 Praful Melgar MD, [address] [place] [address] Physician Radiation Oncology 10/31/21 Krissy eBckham RN Specialty Interlibrary Loan Services Librarian Oncology 11/08/21 Chantal Ayers, DO [address] [place] [address] Hematology/Oncology 05/24/22 Forest Ranger Technician Relationship Specialty Start Date End Date Braden Torres, DO PCP - General Internal Medicine 08/12/12 Praful Melgar MD, [address] [place] [address] Physician Radiation Oncology 10/31/21 Krissy Beckham RN Specialty Interlibrary Loan Services Librarian Oncology 11/08/21 Chantal Ayers, DO [address] [place] [address] Hematology/Oncology 05/24/22 Forest Ranger Technician Relationship Specialty Start Date End Date Braden Torres, PCP - General Internal Medicine 08/12/12 Praful Melgar MD, [address] [place] [address] Physician Radiation Oncology 10/31/21 Krissy Beckham RN Specialty Interlibrary Loan Services Librarian Oncology 11/08/21 Chantal Ayers, DO [address] [place] [address] Hematology/Oncology 05/24/22 Forest Ranger Technician Relationship Specialty Start Date End Date Braden Torres DO PCP - General Internal Medicine 08/12/12 Praful Melgar MD, [address] [place] [address] Physician Radiation Oncology 10/31/21 Krissy Beckham RN Specialty Interlibrary Loan Services Librarian Oncology 11/08/21 Chantal Ayers, DO [address] [place] [address] Hematology/Oncology 05/24/22 Forest Ranger Technician Relationship Specialty Start Date End Date Braden Torres, DO PCP - General Internal Medicine 08/12/12 Praful Melgar MD, [address] [place] [address] Physician Radiation Oncology 10/31/21 Krissy Beckham RN Specialty Interlibrary Loan Services Librarian Oncology 11/08/21 Chantal Ayers, DO [address] [place] [address] Hematology/Oncology 05/24/22 Forest Ranger Technician Relationship Specialty Start Date End Date Braden Torres, DO PCP - General Internal Medicine 08/12/12 Praful Melgar MD, [address] [place] [address] Physician Radiation Oncology 10/31/21 Krissy Beckham RN Specialty Interlibrary Loan Services Librarian Oncology 11/08/21 Chantal Ayers, DO [address] [place] [address] Hematology/Oncology 05/24/22 Forest Ranger Technician Relationship Specialty Start Date End Date Braden Torres, DO PCP - General Internal Medicine 08/12/12 Praful Melgar MD, [address] [place] [address] Physician Radiation Oncology 10/31/21 Krissy Beckham RN Specialty Interlibrary Loan Services Librarian Oncology 11/08/21 Chantal Ayers, DO [address] [place] [address] Hematology/Oncology 05/24/22 Forest Ranger Technician Relationship Specialty Start Date End Date Braden Torres, DO PCP - General Internal Medicine 08/12/12 Praful Melgar MD, [address] [place] [address] Physician Radiation Oncology 10/31/21 Krissy Beckham RN Specialty Interlibrary Loan Services Librarian Oncology 11/08/21 Chantal Ayers, DO [address] [place] [address] Hematology/Oncology 05/24/22 Forest Ranger Technician Relationship Specialty Start Date End Date Braden Torres, DO PCP - General Internal Medicine 08/12/12 Praful Melgar MD, [address] [place] [address] Physician Radiation Oncology 10/31/21 Krissy Beckham RN Specialty Interlibrary Loan Services Librarian Oncology 11/08/21 Chantal Ayers, DO [address] [place] [address] Hematology/Oncology 05/24/22 Forest Ranger Technician Relationship Specialty Start Date End Date Braden Torres, DO PCP - General Internal Medicine 08/12/12 Praful Melgar MD, [address] [place] [address] Physician Radiation Oncology 10/31/21 Krissy Beckham RN Specialty Interlibrary Loan Services Librarian Oncology 11/08/21 Chantal Ayers, DO [address] [place] [address] Hematology/Oncology 05/24/22 Forest Ranger Technician Relationship Specialty Start Date End Date Braden Torres, DO PCP - General Internal Medicine 08/12/12 Praful Melgar MD, [address] [place] [address] Physician Radiation Oncology 10/31/21 Krissy Beckham RN Specialty Interlibrary Loan Services Librarian Oncology 11/08/21 Chantal Ayers, DO [address] [place] [address] Hematology/Oncology 05/24/22 Forest Ranger Technician Relationship Specialty Start Date End Date Braden Torres, DO PCP - General Internal Medicine 08/12/12 Praful Melgar MD, [address] [place] [address] Physician Radiation Oncology 10/31/21 Krissy Beckham RN Specialty Interlibrary Loan Services Librarian Oncology 11/08/21 Chantal Ayers, DO [address] [place] [address] Hematology/Oncology 05/24/22 Forest Ranger Technician Relationship Specialty Start Date End Date Braden Torres, DO PCP - General Internal Medicine 08/12/12 Praful Melgar MD, [address] [place] [address] Physician Radiation Oncology 10/31/21 Krissy Beckham RN Specialty Interlibrary Loan Services Librarian Oncology 11/08/21 Chantal Ayers, DO [address] [place] [address] Hematology/Oncology 05/24/22 Forest Ranger Technician Relationship Specialty Start Date End Date Braden Torres, DO PCP - General Internal Medicine 08/12/12 Praful Melgar MD, [address] [place] [address] Physician Radiation Oncology 10/31/21 Krissy Beckham RN Specialty Interlibrary Loan Services Librarian Oncology 11/08/21 Chantal Ayers, DO [address] [place] [address] Hematology/Oncology 05/24/22 Forest Ranger Technician Relationship Specialty Start Date End Date Braden Torres, DO PCP - General Internal Medicine 08/12/12 Praful Melgar MD, [address] [place] [address] Physician Radiation Oncology 10/31/21 Krissy Beckham RN Specialty Interlibrary Loan Services Librarian Oncology 11/08/21 Chantal Ayers, DO [address] [place] [address] Hematology/Oncology 05/24/22 Forest Ranger Technician Relationship Specialty Start Date End Date Braden Torres, DO PCP - General Internal Medicine 08/12/12 Praful Melgar MD, [address] [place] [address] Physician Radiation Oncology 10/31/21 Krissy Beckham RN Specialty Interlibrary Loan Services Librarian Oncology 11/08/21 Chantal Ayers, DO [address] [place] [address] Hematology/Oncology 05/24/22 Forest Ranger Technician Relationship Specialty Start Date End Date Braden Torres, PCP - General Internal Medicine 08/12/12 Praful Melgar MD, [address] [place] [address] Physician Radiation Oncology 10/31/21 Krissy Beckham RN Specialty Interlibrary Loan Services Librarian Oncology 11/08/21 Chantal Ayers, DO [address] [place] [address] Hematology/Oncology 05/24/22 Forest Ranger Technician Relationship Specialty Start Date End Date Braden Torres, PCP - General Internal Medicine 08/12/12 Praful Melgar MD, [address] [place] [address] Physician Radiation Oncology 10/31/21 Krissy Beckham RN Specialty Interlibrary Loan Services Librarian Oncology 11/08/21 Chantal Ayers, DO [address] [place] [address] Hematology/Oncology 05/24/22 Forest Ranger Technician Relationship Specialty Start Date End Date Braden Torres, PCP - General Internal Medicine 08/12/12 Praful Melgar MD, [address] [place] [address] Physician Radiation Oncology 10/31/21 Krissy Beckham RN Specialty Interlibrary Loan Services Librarian Oncology 11/08/21 Chantal Ayers, DO [address] [place] [address] Hematology/Oncology 05/24/22 Forest Ranger Technician Relationship Specialty Start Date End Date Braden Torres, PCP - General Internal Medicine 08/12/12 Praful Melgar MD, [address] [place] [address] Physician Radiation Oncology 10/31/21 Krissy Beckham RN Specialty Interlibrary Loan Services Librarian Oncology 11/08/21 Chantal Ayers, DO [address] [place] [address] Hematology/Oncology 05/24/22 Forest Ranger Technician Relationship Specialty Start Date End Date Braden Torres DO PCP - General Internal Medicine 08/12/12 Praful Melgar MD, [address] [place] [address] Physician Radiation Oncology 10/31/21 Krissy Beckham RN Specialty Interlibrary Loan Services Librarian Oncology 11/08/21 Chantal Ayers, DO [address] [place] [address] Hematology/Oncology 05/24/22 Forest Ranger Technician Relationship Specialty Start Date End Date Braden Torres DO PCP - General Internal Medicine 08/12/12 Praful Melgar MD, [address] [place] [address] Physician Radiation Oncology 10/31/21 Krissy Beckham RN Specialty Interlibrary Loan Services Librarian Oncology 11/08/21 Chantal Ayers, DO [address] [place] [address] Hematology/Oncology 05/24/22 Forest Ranger Technician Relationship Specialty Start Date End Date Braden Torres DO PCP - General Internal Medicine 08/12/12 Praful Melgar MD, [address] [place] [address] Physician Radiation Oncology 10/31/21 Krissy Beckham RN Specialty Interlibrary Loan Services Librarian Oncology 11/08/21 Chantal Ayers, DO [address] [place] [address] Hematology/Oncology 05/24/22 Forest Ranger Technician Relationship Specialty Start Date End Date Braden Torres, DO PCP - General Internal Medicine 08/12/12 Praful Melgar MD, [address] [place] [address] Physician Radiation Oncology 10/31/21 Krissy Beckham RN Specialty Interlibrary Loan Services Librarian Oncology 11/08/21 Chantal Ayers, DO [address] [place] [address] Hematology/Oncology 05/24/22 Forest Ranger Technician Relationship Specialty Start Date End Date Braden Torres, DO PCP - General Internal Medicine 08/12/12 Praful Melgar MD, [address] [place] [address] Physician Radiation Oncology 10/31/21 Krissy Beckham RN Specialty Interlibrary Loan Services Librarian Oncology 11/08/21 Chantal Ayers, DO [address] [place] [address] Hematology/Oncology 05/24/22 Forest Ranger Technician Relationship Specialty Start Date End Date Braden Torres DO PCP - General Internal Medicine 08/12/12 Praful Melgar MD, [address] [place] [address] Physician Radiation Oncology 10/31/21 Krissy Beckham RN Specialty Interlibrary Loan Services Librarian Oncology 11/08/21 Chantal Ayers, DO [address] [place] [address] Hematology/Oncology 05/24/22 Forest Ranger Technician Relationship Specialty Start Date End Date Braden Torres, DO PCP - General Internal Medicine 08/12/12 Praful Melgar MD, [address] [place] [address] Physician Radiation Oncology 10/31/21 Krissy Beckham RN Specialty Interlibrary Loan Services Librarian Oncology 11/08/21 Chantal Ayers, DO [address] [place] [address] Hematology/Oncology 05/24/22 Forest Ranger Technician Relationship Specialty Start Date End Date Braden Torres, DO PCP - General Internal Medicine 08/12/12 Praful Melgar MD, [address] [place] [address] Physician Radiation Oncology 10/31/21 Krissy Beckham RN Specialty Interlibrary Loan Services Librarian Oncology 11/08/21 Chantal Ayers, DO [address] [place] [address] Hematology/Oncology 05/24/22 Forest Ranger Technician Relationship Specialty Start Date End Date Braden Torres DO PCP - General Internal Medicine 08/12/12 Praful Melgar MD, [address] [place] [address] Physician Radiation Oncology 10/31/21 Krissy Beckham, RN Specialty Interlibrary Loan Services Librarian Oncology 11/08/21 Chantal Ayers, DO [address] [place] [address] Hematology/Oncology 05/24/22 Forest Ranger Technician Relationship Specialty Start Date End Date Braden Torres DO PCP - General Internal Medicine 08/12/12 Praful Melgar MD, [address] [place] [address] Physician Radiation Oncology 10/31/21 Krissy Beckham RN Specialty Interlibrary Loan Services Librarian Oncology 11/08/21 Chantal Ayers, DO [address] [place] [address] Hematology/Oncology 05/24/22 Forest Ranger Technician Relationship Specialty Start Date End Date Braden Torres DO PCP - General Internal Medicine 08/12/12 Praful Mlegar MD, [address] [place] [address] Physician Radiation Oncology 10/31/21 Krissy Beckham RN Specialty Interlibrary Loan Services Librarian Oncology 11/08/21 Chantal Ayers, DO [address] [place] [address] Hematology/Oncology 05/24/22 Forest Ranger Technician Relationship Specialty Start Date End Date Braden Torres DO PCP - General Internal Medicine 08/12/12 Praful Melgar MD, [address] [place] [address] Physician Radiation Oncology 10/31/21 Krissy Beckham RN Specialty Interlibrary Loan Services Librarian Oncology 11/08/21 Chantal Ayers DO [address] [place] [address] Hematology/Oncology 05/24/22 Forest Ranger Technician Relationship Specialty Start Date End Date Braden Torres DO PCP - General Internal Medicine 08/12/12 Praful Melgar MD, [address] [place] [address] Physician Radiation Oncology 10/31/21 Krissy Beckham RN Specialty Interlibrary Loan Services Librarian Oncology 11/08/21 Chantal Ayers DO [address] [place] [address] Hematology/Oncology 05/24/22 Forest Ranger Technician Relationship Specialty Start Date End Date Braden Torres DO PCP - General Internal Medicine 08/12/12 Praful Melgar MD, [address] [place] [address] Physician Radiation Oncology 10/31/21 Krissy Beckham RN Specialty Interlibrary Loan Services Librarian Oncology 11/08/21 Chantal Ayers DO [address] [place] [address] Hematology/Oncology 05/24/22 Forest Ranger Technician Relationship Specialty Start Date End Date Braden Torres DO PCP - General Internal Medicine 08/12/12 Praful Melgar MD, [address] [place] [address] Physician Radiation Oncology 10/31/21 Krissy Beckham RN Specialty Interlibrary Loan Services Librarian Oncology 11/08/21 Chantal Ayers DO [address] [place] [address] Hematology/Oncology 05/24/22 Forest Ranger Technician Relationship Specialty Start Date End Date Braden Torres DO PCP - General Internal Medicine 08/12/12 Praful Melgar MD, [address] [place] [address] Physician Radiation Oncology 10/31/21 Krissy Beckham RN Specialty [employer] Loan Services Librarian Oncology 11/08/21 Chantal Ayers DO [address] [place] [address] Hematology/Oncology 05/24/22 Forest Ranger Technician Relationship Specialty Start Date End Date Braden Torres DO PCP - General Internal Medicine 08/12/12 Praful Melgar MD, [address] [place] [address] Physician Radiation Oncology 10/31/21 Krissy Beckham RN Specialty [employer]library Loan Services Librarian Oncology 11/08/21 Chantal Ayers DO [address] [place] [address] Hematology/Oncology 05/24/22 Forest Ranger Technician Relationship Specialty Start Date End Date Braden Torres DO PCP - General Internal Medicine 08/12/12 Praful Melgar MD, [address] [place] [address] Physician Radiation Oncology 10/31/21 Krissy Beckham RN Specialty [employer]library Loan Services Librarian Oncology 11/08/21 Chantal Ayers DO [address] [place] [address] Hematology/Oncology 05/24/22 Forest Ranger Technician Relationship Specialty Start Date End Date Braden Torres DO PCP - General Internal Medicine 08/12/12 Praful Melgar MD, [address] [place] [address] Physician Radiation Oncology 10/31/21 Krissy Beckham RN Specialty Interlibrary Loan Services Librarian Oncology 11/08/21 Chantal Ayers DO [address] [place] [address] Hematology/Oncology 05/24/22 Forest Ranger Technician Relationship Specialty Start Date End Date Braden Torres DO PCP - General Internal Medicine 08/12/12 Praful Melgar MD, [address] [place] [address] Physician Radiation Oncology 10/31/21 Krissy Beckham RN Specialty Interlibrary Loan Services Librarian Oncology 11/08/21 Chantal Ayers DO [address] [place] [address] Hematology/Oncology 05/24/22 Forest Ranger Technician Relationship Specialty Start Date End Date Braden Torres DO PCP - General Internal Medicine 08/12/12 Praful Melgar MD, [address] [place] [address] Physician Radiation Oncology 10/31/21 Krissy Beckham RN Specialty [employer]library Loan Services Librarian Oncology 11/08/21 Chantal Ayers DO [address] [place] [address] Hematology/Oncology 05/24/22 Forest Ranger Technician Relationship Specialty Start Date End Date Braden Torres DO PCP - General Internal Medicine 08/12/12 Praful Melgar MD, [address] [place] [address] Physician Radiation Oncology 10/31/21 Krissy Beckham RN Specialty Interlibrary Loan Services Librarian Oncology 11/08/21 Chantal Ayers DO [address] [place] [address] Hematology/Oncology 05/24/22 Forest Ranger Technician Relationship Specialty Start Date End Date Braden Torres DO PCP - General Internal Medicine 08/12/12 Praful Melgar MD, [address] [place] [address] Physician Radiation Oncology 10/31/21 Krissy Beckham RN Specialty Interlibrary Loan Services Librarian Oncology 11/08/21 Chantal Ayers DO [address] [place] [address] Hematology/Oncology 05/24/22 Forest Ranger Technician Relationship Specialty Start Date End Date Braden Torres DO PCP - General Internal Medicine 08/12/12 Praful Melgar MD, [address] [place] [address] Physician Radiation Oncology 10/31/21 Krissy Beckham RN Specialty Interlibrary Loan Services Librarian Oncology 11/08/21 Chantal Ayers DO [address] [place] [address] Hematology/Oncology 05/24/22 Forest Ranger Technician Relationship Specialty Start Date End Date Braden Torres DO PCP - General Internal Medicine 08/12/12 Praful Melgar MD, [address] [place] [address] Physician Radiation Oncology 10/31/21 Krissy Beckham RN Specialty Interlibrary Loan Services Librarian Oncology 11/08/21 Chantal Ayers DO [address] [place] [address] Hematology/Oncology 05/24/22 Forest Ranger Technician Relationship Specialty Start Date End Date Braden Torres DO PCP - General Internal Medicine 08/12/12 Praful Melgar MD, [address] [place] [address] Physician Radiation Oncology 10/31/21 Krissy Beckham RN Specialty Interlibrary Loan Services Librarian Oncology 11/08/21 Chantal Ayers DO [address] [place] [address] Hematology/Oncology 05/24/22 Forest Ranger Technician Relationship Specialty Start Date End Date Braden Torres DO PCP - General Internal Medicine 08/12/12 Praful Melgar MD, [address] [place] [address] Physician Radiation Oncology 10/31/21 Krissy Beckham RN Specialty Interlibrary Loan Services Librarian Oncology 11/08/21 Chantal Ayers DO [address] [place] [address] Hematology/Oncology 05/24/22 Forest Ranger Technician Relationship Specialty Start Date End Date Braden Torres DO PCP - General Internal Medicine 08/12/12 Praful Melgar MD, [address] [place] [address] Physician Radiation Oncology 10/31/21 Krissy Beckham RN Specialty Interlibrary Loan Services Librarian Oncology 11/08/21 Chantal Ayers DO [address] [place] [address] Hematology/Oncology 05/24/22 Forest Ranger Technician Relationship Specialty Start Date End Date Braden Torres DO PCP - General Internal Medicine 08/12/12 Praful Melgar MD, [address] [place] [address] Physician Radiation Oncology 10/31/21 Krissy Beckham RN Specialty Interlibrary Loan Services Librarian Oncology 11/08/21 Chantal Ayers DO [address] [place] [address] Hematology/Oncology 05/24/22 Forest Ranger Technician Relationship Specialty Start Date End Date Braden Torres DO PCP - General Internal Medicine 08/12/12 Praful Melgar MD, [address] [place] [address] Physician Radiation Oncology 10/31/21 Krissy Beckham RN Specialty Interlibrary Loan Services Librarian Oncology 11/08/21 Chantal Ayers DO [address] [place] [address] Hematology/Oncology 05/24/22 Forest Ranger Technician Relationship Specialty Start Date End Date Braden Torres DO PCP - General Internal Medicine 08/12/12 Praful Melgar MD, [address] [place] [address] Physician Radiation Oncology 10/31/21 Krissy Beckham RN Specialty Interlibrary Loan Services Librarian Oncology 11/08/21 Chantal Ayers DO [address] [place] [address] Hematology/Oncology 05/24/22 Forest Ranger Technician Relationship Specialty Start Date End Date Braden Torres DO PCP - General Internal Medicine 08/12/12 Praful Melgar MD, [address] [place] [address] Physician Radiation Oncology 10/31/21 Krissy Beckham RN Specialty Interlibrary Loan Services Librarian Oncology 11/08/21 Chantal Ayers DO [address] [place] [address] Hematology/Oncology 05/24/22 Forest Ranger Technician Relationship Specialty Start Date End Date Barden Torres DO PCP - General Internal Medicine 08/12/12 Praful Melgar MD, [address] [place] [address] Physician Radiation Oncology 10/31/21 Krissy Beckham RN Specialty Interlibrary Loan Services Librarian Oncology 11/08/21 Chantal Ayers DO [address] [place] [address] Hematology/Oncology 05/24/22 Forest Ranger Technician Relationship Specialty Start Date End Date Braden Torres PCP - General Internal Medicine 08/12/12 Praful Melgar MD, [address] [place] [address] Physician Radiation Oncology 10/31/21 Krissy Beckham RN Specialty Interlibrary Loan Services Librarian Oncology 11/08/21 Chantal Ayers DO [address] [place] [address] Hematology/Oncology 05/24/22 Forest Ranger Technician Relationship Specialty Start Date End Date MelissaAmiBraden Max PCP - General Internal Medicine 08/12/12 Praful Melgar MD, [address] [place] [address] Physician Radiation Oncology 10/31/21 Krissy Beckham RN Specialty Interlibrary Loan Services Librarian Oncology 11/08/21 Chantal Ayers DO [address] [place] [address] Hematology/Oncology 05/24/22 Forest Ranger Technician Relationship Specialty Start Date End Date MelissaBraden hui DO PCP - General Internal Medicine 08/12/12 Praful Melgar MD, [address] [place] [address] Physician Radiation Oncology 10/31/21 Krissy Beckham RN Specialty Interlibrary Loan Services Librarian Oncology 11/08/21 Chantal Ayers DO [address] [place] [address] Hematology/Oncology 05/24/22 Forest Ranger Technician Relationship Specialty Start Date End Date Braden Torres DO PCP - General Internal Medicine 08/12/12 Praful Melgar MD, [address] [place] [address] Physician Radiation Oncology 10/31/21 Krissy Beckham RN Specialty Interlibrary Loan Services Librarian Oncology 11/08/21 Chantal Ayers DO [address] [place] [address] Hematology/Oncology 05/24/22 Forest Ranger Technician Relationship Specialty Start Date End Date Braden Torres DO PCP - General Internal Medicine 08/12/12 Praful Melgar MD, [address] [place] [address] Physician Radiation Oncology 10/31/21 Krissy Beckham RN Specialty Interlibrary Loan Services Librarian Oncology 11/08/21 Chantal Ayers DO [address] [place] [address] Hematology/Oncology 05/24/22 Forest Ranger Technician Relationship Specialty Start Date End Date Braden Torres DO PCP - General Internal Medicine 08/12/12 Praful Melgar MD, [address] [place] [address] Physician Radiation Oncology 10/31/21 Krissy Beckham, RN Specialty Interlibrary Loan Services Librarian Oncology 11/08/21 Chantal Ayers DO [address] [facility] [facility] [address] Hematology/Oncology 05/24/22 Forest Ranger Technician Relationship Specialty Start Date End Date Generic Provider, No Assigned PcpMD [address] [place] [address] PCP - General Internal Medicine 07/10/23 Forest Ranger Technician Relationship Specialty Start Date End Date Braden Torres DO PCP - General Internal Medicine 08/12/12 Praful Melgar MD [address] [facility] [address] Physician Radiation Oncology 10/31/21 Krissy Beckham RN Specialty Interlibrary Loan Services Librarian Oncology 11/08/21 Chantal Ayers DO [address] [address] Hematology/Oncology 05/24/22 Luz Garza [address] [place] [address] Gastroenterology 07/11/23 Team Status: Active Member Role Status Dates Dr. Braden Torres DO Family Provider Active No Primary Care Physician Primary Care Provider Active Team Status: Inactive Member Role Status Dates Dr. Jami Baker MD Attending Provider Active Team Status: Inactive Member Role Status Dates Dr. Luz Garza DO Attending Provider, Referring Pro vider Active No Primary Care Physician Primary Care Provider Active Forest Ranger Technician Relationship Specialty Start Date End Date Braden Torres DO PCP - General Internal Medicine 08/12/12 Praful Melgar MD [address] [place] [address] Physician Radiation Oncology 10/31/21 Krissy Beckham RN Specialty Interlibrary Loan Services Librarian Oncology 11/08/21 Chantal Ayers DO [address] [place] [address] Hematology/Oncology 05/24/22 Kayla Luz [address] [place] [address] Gastroenterology 07/11/23 Forest Ranger Technician Relationship Specialty Start Date End Date Braden Torres DO PCP - General Internal Medicine 08/12/12 Praful Melgar MD [address] [place] [address] Physician Radiation Oncology 10/31/21 Krissy Beckham RN Specialty Interlibrary Loan Services Librarian Oncology 11/08/21 Chantal Ayers DO [address] [place] [address] Hematology/Oncology 05/24/22 Luz Garza [address] [place] [address] Gastroenterology 07/11/23 Forest Ranger Technician Relationship Specialty Start Date End Date Braden Torres DO PCP - General Internal Medicine 08/12/12 Praful Melgar MD [address] [place] [address] Physician Radiation Oncology 10/31/21 Krissy Beckham RN Specialty Interlibrary Loan Services Librarian Oncology 11/08/21 Chantal Ayers DO [address] [place] [address] Hematology/Oncology 05/24/22 Luz Garza [address] [place] [address] Gastroenterology 07/11/23 Forest Ranger Technician Relationship Specialty Start Date End Date Braden Torres DO PCP - General Internal Medicine 08/12/12 Praful Melgar MD [address] [place] [address] Physician Radiation Oncology 10/31/21 Krissy Beckham RN Specialty Interlibrary Loan Services Librarian Oncology 11/08/21 Chantal Ayers DO [address] [place] [address] Hematology/Oncology 05/24/22 Shen Garzae [address] [place] [address] Gastroenterology 07/11/23 Forest Ranger Technician Relationship Specialty Start Date End Date Braden Torres DO PCP - General Internal Medicine 08/12/12 Praful Melgar MD [address] [place] [address] Physician Radiation Oncology 10/31/21 Krissy Beckham RN Specialty Interlibrary Loan Services Librarian Oncology 11/08/21 Chantal Ayers DO [address] [place] [address] Hematology/Oncology 05/24/22 Luz Garza [address] [address] Gastroenterology 07/11/23 Forest Ranger Technician Relationship Specialty Start Date End Date Braden Torres DO PCP - General Internal Medicine 08/12/12 Praful Melgar MD [address] [place] [address] Physician Radiation Oncology 10/31/21 Krissy Beckham RN Specialty Interlibrary Loan Services Librarian Oncology 11/08/21 Chantal Ayers DO [address] [place] [address] Hematology/Oncology 05/24/22 Luz Garza [address] [address] Gastroenterology 07/11/23 Forest Ranger Technician Relationship Specialty Start Date End Date Generic Provider, No Assigned PcpMD PCP - General Internal Medicine 07/10/23 Luz Garza DO [address] [facility], [address] [place] [address] PCP - MMO ACO PCP 08/09/23 Forest Ranger Technician Relationship Specialty Start Date End Date Braden Torres DO PCP - General Internal Medicine 08/12/12 Praful Melgar MD [address] [place] [address] Physician Radiation Oncology 10/31/21 Krissy Beckham RN Specialty Interlibrary Loan Services Librarian Oncology 11/08/21 Chantal Ayers DO [address] [place] [address] Hematology/Oncology 05/24/22 Kayla Luz [address] [place], [place] [id number] Gastroenterology 07/11/23 Forest Ranger Technician Relationship Specialty Start Date End Date Braden Torres DO PCP - General Internal Medicine 08/12/12 Praful Melgar MD [address] [place] [address] Physician Radiation Oncology 10/31/21 Krissy Beckham RN Specialty Interlibrary Loan Services Librarian Oncology 11/08/21 Chantal Ayers DO [address] [place] [address] Hematology/Oncology 05/24/22 Luz Garza [address] [place] [phone] Gastroenterology 07/11/23 Forest Ranger Technician Relationship Specialty Start Date End Date Braden Torres DO PCP - General Internal Medicine 08/12/12 Praful Melgar MD [address] [place] [address] Physician Radiation Oncology 10/31/21 Krissy Beckham, SHRUTHI Specialty Interlibrary Loan Services Librarian Oncology 11/08/21 Chantal Ayers DO [address] [place] [address] Hematology/Oncology 05/24/22 Luz Garza [address] [place] [phone] Gastroenterology 07/11/23 Forest Ranger Technician Relationship Specialty Start Date End Date Braden Torres DO PCP - General Internal Medicine 08/12/12 Praful Melgar MD [address] [place] [address] Physician Radiation Oncology 10/31/21 Krissy Beckham RN Specialty Interlibrary Loan Services Librarian Oncology 11/08/21 Chantal Ayers DO [address] [place] [address] Hematology/Oncology 05/24/22 Luz Garza [address] [place] [phone] Gastroenterology 07/11/23 Forest Ranger Technician Relationship Specialty Start Date End Date Braden Torres DO PCP - General Internal Medicine 08/12/12 Praful Melgar MD [address] [place] [address] Physician Radiation Oncology 10/31/21 Krissy Beckham RN Specialty Interlibrary Loan Services Librarian Oncology 11/08/21 Chantal Ayers DO [address] [place] [address] Hematology/Oncology 05/24/22 Luz Garza [address] [place] [address] Gastroenterology 07/11/23 Forest Ranger Technician Relationship Specialty Start Date End Date Braden Torres DO PCP - General Internal Medicine 08/12/12 Praful Melgar MD [address] [place] [address] Physician Radiation Oncology 10/31/21 Krissy Beckham RN Specialty Interlibrary Loan Services Librarian Oncology 11/08/21 Chantal Ayers DO [address] [place] [address] Hematology/Oncology 05/24/22 Luz Garza [address] [place] [address] Gastroenterology 07/11/23 Forest Ranger Technician Relationship Specialty Start Date End Date Braden Torres DO PCP - General Internal Medicine 08/12/12 Praful Melgar MD [address] [place] [address] Physician Radiation Oncology 10/31/21 Krissy Beckham RN Specialty Interlibrary Loan Services Librarian Oncology 11/08/21 Chantal Ayers DO [address] [place] [address] Hematology/Oncology 05/24/22 Luz Garza [address] [place] [address] Gastroenterology 07/11/23 Forest Ranger Technician Relationship Specialty Start Date End Date Braden Torres DO PCP - General Internal Medicine 08/12/12 Praful Melgar MD [address] [place] [address] Physician Radiation Oncology 10/31/21 Krissy Beckham RN Specialty Interlibrary Loan Services Librarian Oncology 11/08/21 Chantal Ayers DO [address] [place] [address] Hematology/Oncology 05/24/22 Luz Garza [address] [place] [address] Gastroenterology 07/11/23 Forest Ranger Technician Relationship Specialty Start Date End Date Braden Torres DO PCP - General Internal Medicine 08/12/12 Praful Melgar MD [address] [place] [address] Physician Radiation Oncology 10/31/21 Krissy Beckham RN Specialty Interlibrary Loan Services Librarian Oncology 11/08/21 Forest Ranger Technician Relationship Specialty Start Date End Date Braden Torres DO PCP - General Internal Medicine 08/12/12 Praful Melgar MD [address] [place] [address] Physician Radiation Oncology 10/31/21 Krissy Beckham RN Specialty Interlibrary Loan Services Librarian Oncology 11/08/21 Forest Ranger Technician Relationship Specialty Start Date End Date Braden Torres DO PCP - General Internal Medicine 08/12/12 Praful Melgar MD [address] [place] [address] Physician Radiation Oncology 10/31/21 Krissy Beckham RN Specialty Interlibrary Loan Services Librarian Oncology 11/08/21 Chantal Ayers DO [address] [place] [address] Hematology/Oncology 05/24/22 Thomae, Luz [address] [place] [address] Gastroenterology 07/11/23 Forest Ranger Technician Relationship Specialty Start Date End Date Braden Torres DO PCP - General Internal Medicine 08/12/12 Praful Melgar MD [address] [place] [address] Physician Radiation Oncology 10/31/21 Krissy Beckham RN Specialty Interlibrary Loan Services Librarian Oncology 11/08/21 Chantal Ayers DO [address] [place] [address] Hematology/Oncology 05/24/22 Shen Garzae [address] [place] [address] Gastroenterology 07/11/23 Forest Ranger Technician Relationship Specialty Start Date End Date Braden Torres DO PCP - General Internal Medicine 08/12/12 Praful Melagr MD [address] [place] [address] Physician Radiation Oncology 10/31/21 Krissy Beckham RN Specialty Interlibrary Loan Services Librarian Oncology 11/08/21 Chantal Ayers DO [address] [place] [address] Hematology/Oncology 05/24/22 Shen Garzae [address] [place] [address] Gastroenterology 07/11/23 Forest Ranger Technician Relationship Specialty Start Date End Date Braden Torres DO PCP - General Internal Medicine 08/12/12 Praful Melgar MD [address] [place] [address] Physician Radiation Oncology 10/31/21 Krissy Beckham RN Specialty Interlibrary Loan Services Librarian Oncology 11/08/21 Chantal Ayers DO [address] [place] [address] Hematology/Oncology 05/24/22 Luz Garza [address] [place] [address] Gastroenterology 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 [place] [address] PCP - MMO ACO PCP 08/09/23 Luz Garza DO [address] [facility] [address] [place] [phone] PCP - General Internal Medicine 12/10/23 Forest Ranger Technician Relationship Specialty Start Date End Date Braden Torres DO PCP - General Internal Medicine 08/12/12 Praful Melgar MD [address] [place] [address] Physician Radiation Oncology 10/31/21 Krissy Beckham RN Specialty Interlibrary Loan Services Librarian Oncology 11/08/21 Chantal Ayers DO [address] [place] [address] Hematology/Oncology 05/24/22 Thomzachery Luz [address] [place] [address] Gastroenterology 07/11/23 Forest Ranger Technician Relationship Specialty Start Date End Date Braden Torres DO PCP - General Internal Medicine 08/12/12 Praful Melgar MD [address] [place] [address] Physician Radiation Oncology 10/31/21 Krissy Beckham RN Specialty Interlibrary Loan Services Librarian Oncology 11/08/21 Chantal Ayers DO [address] [place] [address] Hematology/Oncology 05/24/22 Luz Garza [address] [place] [address] Gastroenterology 07/11/23 Forest Ranger Technician Relationship Specialty Start Date End Date Braden Torres DO PCP - General Internal Medicine 08/12/12 Praful Melgar MD [address] [place] [address] Physician Radiation Oncology 10/31/21 Krissy Beckham RN Specialty Interlibrary Loan Services Librarian Oncology 11/08/21 Chantal Ayers DO [address] [place] [address] Hematology/Oncology 05/24/22 Luz Garza [address] [place] [address] Gastroenterology 07/11/23 Forest Ranger Technician Relationship Specialty Start Date End Date Braden Torres DO PCP - General Internal Medicine 08/12/12 Praful Melgar MD [address] [place] [address] Physician Radiation Oncology 10/31/21 Krissy Beckham RN Specialty Interlibrary Loan Services Librarian Oncology 11/08/21 Chantal Ayers DO [address] [place] [address] Hematology/Oncology 05/24/22 Luz Garza [address] [place] [address] Gastroenterology 07/11/23 Forest Ranger Technician Relationship Specialty Start Date End Date Braden Torres DO PCP - General Internal Medicine 08/12/12 Praful Melgar MD [address] [place] [address] Physician Radiation Oncology 10/31/21 Krissy Beckham RN Specialty Interlibrary Loan Services Librarian Oncology 11/08/21 Chantal Ayers DO [address] [place] [address] Hematology/Oncology 05/24/22 Luz Garza [address] [place] [address] Gastroenterology 07/11/23 Forest Ranger Technician Relationship Specialty Start Date End Date Braden Torres DO PCP - General Internal Medicine 08/12/12 Praful Melgar MD [address] [place] [address] Physician Radiation Oncology 10/31/21 Krissy Beckham RN Specialty Interlibrary Loan Services Librarian Oncology 11/08/21 Chantal Ayers DO [address] [place] [address] Hematology/Oncology 05/24/22 Luz Garza [address] [place] [address] Gastroenterology 07/11/23 Forest Ranger Technician Relationship Specialty Start Date End Date Braden Torres DO PCP - General Internal Medicine 08/12/12 Praful Melgar MD [address] [place] [address] Physician Radiation Oncology 10/31/21 Krissy Beckham RN Specialty Interlibrary Loan Services Librarian Oncology 11/08/21 Chantal Ayers DO [address] [place] [address] Hematology/Oncology 05/24/22 Luz Garza [address] [place] [address] Gastroenterology 07/11/23 Forest Ranger Technician Relationship Specialty Start Date End Date Braden Torres DO PCP - General Internal Medicine 08/12/12 Praful Melgar MD [address] [place] [address] Physician Radiation Oncology 10/31/21 Krissy Beckham RN Specialty Interlibrary Loan Services Librarian Oncology 11/08/21 Chantal Ayers DO [address] [place] [address] Hematology/Oncology 05/24/22 Luz Garza [address] [place] [address] Gastroenterology 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 [address] [place] [id number] PCP - MMO ACO PCP 08/09/23 Luz Garza DO [address] [facility], [address] [place] [address] PCP - General Internal Medicine 12/10/23 Inactive Administered Medications - up to 3 most recent administrations Administered Medications (un recognized section and content) Medication Order MAR Action Action Date Dose Rate Site leuprolide 3.75 mg injection (LUPRON DEPOT) 3.75 mg, INTRAMUSCULAR, ONCE, 1 dose, On Sun08/13/23 at 0930, Hazardous Chemotherapy Drug: Use appropriate PPE. Given 08/13/2023 9:18 AM EST 3.75 mg Buttocks, Left Inactive Administered Medications - up to 3 most recent administrations Medication Order MAR Action Action Date Dose Rate Site leuprolide 3.75 mg injection (LUPRON DEPOT) 3.75 mg, INTRAMUSCULAR, ONCE, 1 dose, On Sun09/12/23 at 1530, Hazardous Chemotherapy Drug: Use appropriate PPE. Given 09/12/2023 3:37 PM EST 3.75 mg Buttocks, Right Inactive Administered Medications - up to 3 most recent administrations Medication Order MAR Action Action Date Dose Rate Site leuprolide 3.75 mg injection (LUPRON DEPOT) 3.75 mg, INTRAMUSCULAR, ONCE, 1 dose, On Sun10/10/23 at 0900, Hazardous Chemotherapy Drug: Use appropriate PPE. Given 10/10/2023 9:10 AM EDT 3.75 mg Buttocks, Left FOR RECORDS PERTAINING TO PATIENTS WHO ARE OR HAVE BEEN ENROLLED IN A CHEMICAL DEPENDENCY/SUBSTANCEABUSE PROGRAM, SOME INFORMATION MAY BE OMITTED. This clinical summary was aggregated from multiple sources. Caution should be exercised in using it in the provision of clinical care. This summary normalizes information from multiple sources, and as a consequence, information in this document may materially change the coding, format and clinical context of patient data. In addition, data may be omitted in some cases. CLINICAL DECISIONS SHOULD BE BASED ON THE PRIMARY CLINICAL RECORDS. [email or web address] [facility]. provides no warranty or guarantee of the accuracy or completeness of information in this document.
[2025-06-25 04:07] LABS: Chlamydia By Nucleic Acid AMP Negative (Negative); Gonococcus By Nucleic Acid AMP Negative (Negative)
== END | disposition home or self-care (01) ==
PROVIDERS: Referring Provider Obstetrics & Gynecology; Visit Provider Obstetrics & Gynecology
DX: O09.90 Supervision of high risk pregnancy, unspecified, unspecified trimester (principal); Z3A.00 Weeks of gestation of pregnancy not specified
CPT/HCPCS: 36415; 82728; 83540; 83550; 85025; 86703; 86762; 86780; 86803; 86850; 86900; 86901; 87086; 87088; 87340; 87491; 87591